=== PATIENT | female | born 1970 | race Caucasian/White ===

== ENCOUNTER 2021-11-25 11:05 | Outpatient (CLI) | payer BC, SELFPAY ==
[2021-11-25 14:10] LABS: Hematocrit 43.9 % (33.0-51.0); Hemoglobin* 14.1 gm/dL (12.0-16.0); Mean Corpuscular HGB Conc 32 gm/dL (32-36); Mean Corpuscular Hemoglobin 27 pg (26-34); Mean Corpuscular Volume 85 fL (80-100); Platelet Count* 246 K/uL (140-440); Red Blood Count 5.19 m/uL (4.00-5.20); White Blood Count* 8.55 K/uL (4.50-11.00)
[2021-11-25 14:17] LABS: Slide Review Reflex No
[2021-11-25 15:21] LABS: Ferritin* 5.5 ng/mL (6.24-137.0)
== END 2021-11-25 11:06 | disposition home or self-care (01) ==
PROVIDERS: PCP Internal Medicine; Visit Provider Family Medicine
DX: N39.0 Urinary tract infection, site not specified (principal); E61.1 Iron deficiency; G43.909 Migraine, unspecified, not intractable, without status migrainosus; R51.9 Headache, unspecified; F90.9 Attention-deficit hyperactivity disorder, unspecified type
CPT/HCPCS: 82728; 85027; 87086; 87186

== ENCOUNTER 2021-12-11 10:21 | Outpatient (RCR) | payer BC, SELFPAY | END 2022-01-29 07:39 | disposition home or self-care (01) | PROVIDERS: PCP Internal Medicine; Visit Provider Family Medicine | DX: R51.9 Headache, unspecified (principal); Z51.89 Encounter for other specified aftercare | CPT/HCPCS: 97110; 97162 ==

== ENCOUNTER 2021-12-30 14:24 | Outpatient (CLI) | payer BC, SELFPAY ==
--- OUTSIDE RECORDS SUMMARY | 2022-01-08 10:37 | XMS_ITS | Encounter Summary ---
:1970 Author Organization [facility] Address [address] [place] [address] Care Team Providers Name Role Phone Elsewhere, Pcp Primary Care Provider Unavailable Reason for Referral Outpatient (Routine) - Authorized Specialty Diagnoses / Procedures Referred By Contact Refer red To Contact Diagnoses Gastro-Esophageal Reflux Disease With Esophagitis Without Bleeding Julián Edouard M.D. [facility] Procedures Esophageal pH Testing [address] [place] [address] Referral ID Status Reason Start Date Expiration Date Visits V isits Requested Authorized [id number] Authorized 11/17/2021 11/17/2022 3 3 Outpatient (Routine) - Authorized Specialty Diagnoses / Procedures Referred By Contact Refer red To Contact Diagnoses Gastro-Esophageal Reflux Disease With Esophagitis Without Bleeding Julián Edouard M.D. [facility] Procedures Esophageal Manometry [address] [place] [address] Referral ID Status Reason Start Date Expiration Date Visits V isits Requested Authorized [id number] Authorized 11/17/2021 11/17/2022 3 3 Encounter Details Date Type Department Care Team Description 11/17/2021 Orders Only Division of [facility]ology in Julián Narayan M.D. Reflux Disease With [place], [place] [address] [facility] Esophagitis Without [address] [place], [place] Bleeding (Primary Dx) [place] [phone] Social History Tobacco Use Types Packs/Day Years Used Date Smoking Tobacco: Never Smokeless Tobacco: Never Alcohol Use Standard Drinks/Week Comments Not Currently 1 (1 standard drink = 0.6 oz pure alcoho l) Alcohol Habits Answer Date Recorded How often do you have a drink containing Monthly or less 11/16/2021 alcohol? How many drinks containing alcohol do you have Patient does not drink 11/16/2021 on a typical day when you are drinking? How often do you have six or more drinks on one Never 11/16/2021 occasion? Comment: Not asked Social Isolation Answer Date Recorded In a typical week, how many times do you More than three myranda es a week 11/16/2021 talk on the phone with family, friends, or neighbors? How often do you get together with friends Never 11/16/2021 or relatives? How often do you attend synagogue or More than 4 times per year 11/16/2021 latter-day services? Do you belong to any clubs or No 11/16/2021 organizations such as synagogue groups, unions, fraternal or athletic groups, or school groups? How often do you attend meetings of the Never 11/16/2021 clubs or organizations you belong to? Are you now , , , 11/16/2021 , never or living with a partner? Physical Activity Answer Date Recorded On average, how many days per week do you engage in moderate to 0 days 11/16/2021 strenuous exercise (like walking fast, running, jogging, dancing, swimming, biking, or other activities that cause a light or heavy sweat)? On average, how many minutes do you engage in exercise at th is 0 min 11/16/2021 level? Stress Answer Date Recorded Do you feel stress - tense, restless, nervous, or To some ex tent 11/16/2021 anxious, or unable to sleep at night because your mind is troubled all the time - these days? Financial Resource Strain Answer Date Recorded How hard is it for you to pay for the very basics like Somew hat hard 11/16/2021 food, housing, medical care, and heating? Intimate Partner Violence Answer Date Recorded Within the last year, have you been afraid of your partner o r No 11/16/2021 ex-partner? Within the last year, have you been humiliated or emotionall y No 11/16/2021 abused in other ways by your partner or ex-partner? Within the last year, have you been kicked, hit, slapped, or No 11/16/2021 otherwise physically hurt by your partner or ex-partner? Within the last year, have you been raped or forced to have any No 11/16/2021 kind of sexual activity by your partner or ex-partner? Food Insecurity Answer Date Recorded Within the past 12 months, you worried that your food would Never true 11/16/2021 run out before you got money to buy more. Within the past 12 months, the food you bought just didn't N ever true 11/16/2021 last and you didn't have money to get more. Transportation Needs Answer Date Recorded In the past 12 months, has lack of transportation kept you f rom No 11/16/2021 medical appointments or from getting medications? In the past 12 months, has lack of transportation kept you f rom No 11/16/2021 meetings, work, or getting things needed for daily living? Housing Stability Answer Date Recorded In the last 12 months, was there a time when you were not ab le No 11/16/2021 to pay the mortgage or rent on time? In the last 12 months, how many places have you lived? 1 11/16/2021 In the last 12 months, was there a time when you did not hav e a No 11/16/[address] sleep or slept in a long term (including now)? Education Answer Date Recorded What is the highest level of school you have GED or equivale nt 11/16/2021 completed or the highest degree you have received? Sex Assigned at Date Recorded Female 01/25/2018 11:49 AM CDT documented as of this encounter Plan of Treatment Upcoming Encounters Date Type Specialty Care Team Description 01/08/2022 Appointment Radiology Julián Edouard M.D. [address] [place] [address] (Wo rk) 01/08/2022 Ancillary Procedure Cardiovascular Disease Julián Edouard M.D. [address] [place] [phone] (Wo rk) 01/08/2022 Comprehensive Visit Thoracic Surgery Tess Raphael M.D. [address] [place] [phone] (Wo rk) documented as of this encounter Results [facility] STUDY NASL CATH (12/01/2021 1:39 PM CDT) Narrative [facility] [employer] - 12/01/2021 1:39 PM CDT Dae Mcgee M.B., BGeoffrey. ? 12/01/2021 ??1:46 PM Esophageal pH Testing Date/Time: 12/01/2021 1:39 PM Performed by: Dae Mcgee M.B., BLennox [place] Authorized by: Julián Edouard M.D. Julián Edouard M.D. GI PROCEDURE ORDERABLES Performing Organization Address City/State/ZIP Code Phon e Number [facility] NA Esophageal Manometry (11/30/2021 9:45 AM CDT) Narrative [facility] - 11/30/2021 9:45 AM CDT Jose Gray M.D. ? 11/30/2021 12:50 PM TECHNICAL ASPECTS: This was a high-resolution impedance man ometry study with liquid bolus protocol performed in the upright (seated) and supine positions. RESULTS: Supine: The proximal border of the LES was locat ed 37.1 cm from the nares with a total LES length of 2.1 cm. ??The re was a 1 cm hiatal hernia present. Resting LES pressure was normal at 20.7 mmHg, with abnormal relaxation reflected by a IRP of 15.2 mm Hg (slightly above normal, which is less than 15.0 mmHg. A total of 10 swallows were evaluated of which 3 were weak and 2 were failed. ??Bolus clearance as measur ed by impedance was incomplete for 2 swallows. Upper esophageal sphincter function appe ared normal. Upright (Seated): 10 liquid swallows were performed in the upright (seated) position. Note that median IRP ??in secondary posi tion was -7.4. Multiple Rapid Swallow: 3 MRS sequences were performed with at l east 1 sequence demonstrating a DCI >1 without inhibitor y breakthrough OVERALL IMPRESSION: This is consistent with ineffective esop hageal motility, with 5/10 swallows being normal, 2 failed, an d 3 weak in the supine position. Though median IRP was slightly elevated in the supine position, this corrected to normal in th e secondary seated position. Julián Edouard M.D. GI PROCEDURE ORDERABLES Performing Organization Address City/State/ZIP Code Phon e Number [facility] NA documented in this encounter Visit Diagnoses Diagnosis Gastro-Esophageal Reflux Disease With Es ophagitis Without Bleeding - Primary Gastro-Esophageal Reflux Disease With Es ophagitis Without Bleeding Gastro-Esophageal Reflux Disease With Es ophagitis Without Bleeding - Primary documented in this encounter Additional Health Concerns Assessment Noted Time PHQ-9 Depression Total Score: 15 04/21/2018 1:00 PM CS T documented as of this encounter Care Teams Pharmacy Teacher Relationship Specialty Start Date End Date Elsewhere, Pcp PCP - General Internal Medicine 10/22/19 documented as of this encounter
--- OUTSIDE RECORDS SUMMARY | 2022-01-08 10:37 | XMS_ITS | Clinical Summary ---
:1970 Author Organization [facility] Address [address] [place] [address] Care Team Providers Name Role Phone Elsewhere, Pcp Primary Care Provider Unavailable Source Comments Patient records contain information from all sites at [facility]. For routine questions regarding patient records, call [phone] during business hours, M-F 8:00 AM - 5:00 PM Central Time. Record requests for emergency care only can be directed to [phone] at any time.[facility] Allergies Active Allergy Reactions Severity Noted Date Comments Adhesive Rash 01/30/2015 Tape-Silicones Hydrocodone-Acetamino Other (see comments), 08/28/2014 Per [facility]ICS, reaction phen Itching, Nausea Only unknow n Iodine Other (see comments), 08/28/2014 fainti ng Shortness of breath Pecan Nut Swelling, Edema, Medium 01/30/2015 Angioedema Medications Medication Sig Dispensed Refills Start Date End Date Status SUMAtriptan (IMITREX Inject under the 0 03/19/2015 Active STATDOSE) 6 mg/0.5 mL skin as needed. injection pen Uses 2-4x/month for migraine. Uses once and then once again after 1h if no effect. dextroamphetamine-amphe Take 45 mg by 0 Active tamine (ADDERALL) 30 mg mouth every tablet morning. hydrOXYzine (ATARAX) 25 Take 25 mg by 0 Active mg tablet mouth every 6 (six) hours as needed for itching. acetaminophen (TYLENOL) Take 500 mg by 0 Active 500 mg tablet mouth as needed. aspirin/acetaminophen/c Take 1 tablet by 0 Active affeine (EXCEDRIN mouth as needed. MIGRAINE ORAL) ALPRAZOLAM ORAL Take 2 mg by 0 A ctive mouth at bedtime as needed for anxiety. modafiniL (PROVIGIL) Take 100 mg by 0 Active 100 mg tablet mouth daily. diphenhydramine-lidocai Take 5-10 mL by 480 mL 08/12/2020 Active ne 2 %-antacid (mw) mouth 4 (four) times a day after meals and bedtime. Hold in mouth for 1 minute.Do not eat or drink for 15-30 minutes after use. syringe with needle (BD Inject 1 Syringe 12 Syringe 3 11/01/19 21 Active Tuberculin Syringe) 1 under the skin mL 27 x 1/2 syringe once a week. For use with weekly Methotrexate injections diclofenac sodium Apply 2 g 100 g 1 11/06/2020 A ctive (Voltaren) 1 % gel topically 4 (four) times a day. Apply to hands. tranexamic acid Take 650 mg by 0 Active (LYSTEDA) 650 mg tablet mouth daily. pantoprazole (PROTONIX) Take 1 tablet (40 60 tablet 11 11/27/19 21 Active 40 mg EC tablet mg total) by mouth 2 (two) times a day. butalbital-acetaminophe Take 1 tablet by 0 Active n-caff (ESGIC) mouth every 4 50-325-40 mg per tablet (four) hours as needed. hydrOXYchloroQUINE Take 1-2 tablets 135 tablet 3 08/06/2021 Active (PLAQUENIL) 200 mg (200-400 mg tabletIndications: total) by mouth Arthritis Inflammatory daily. Take 1 tab (HCC) on odd days and 2 tabs on even days folic acid 1 mg Take 2 tablets 180 tablet 3 08/06/2021 Active tabletIndications: (2,000 mcg total) Arthritis Inflammatory by mouth daily. (HCC) methotrexate 25 mg/mL Inject 1 mL (25 12 mL 1 08/06/2021 Active injectionIndications: mg total) under Arthritis Inflammatory the skin once a (HCC) week. Labs needed for further refills. pilocarpine (SALAGEN) 5 Take 1 tablet (5 90 tablet 11 2 Active mg tabletIndications: mg total) by Xerostomia mouth 3 (three) times a day. famotidine (PEPCID) 40 Take 1 tablet (40 180 tablet 11 11/04/19 22 Active mg tablet mg total) by mouth 2 (two) times a day. RABEprazole (ACIPHEX) Take 1 tablet (20 180 tablet 11 2 Active 20 mg EC tablet mg total) by mouth 2 (two) times a day before breakfast and dinner. sucralfate (CARAFATE) 1 TAKE 1 TABLET (1 360 tablet 3 11/17/19 22 Active gram tablet G TOTAL) BY MOUTH 4 (FOUR) TIMES A DAY. TAKE 1 HOUR BEFORE MEALS AND AT BEDTIME ketorolac (TORADOL) 10 Take 1 tablet (10 20 tablet 0 2 Active mg tablet mg total) by mouth every 6 (six) hours as needed for pain. 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 12/02/2021 Orders Only Gastroenterology and [place], Gastro- Esophageal Hepatology Julián Narayan M.D. Reflux Disease With Esophagiti s Without Bleedin g (Primary Dx) 12/02/2021 Clinical Gastroenterology and [place], Follow- up Communication Hepatology Julián Narayan M.D. 12/01/2021 Hospital Encounter Gastroenterology and Joseph Edouard shania-Esophageal Hepatology Julián Narayan M.D. Reflux Disease With Esophagiti s Without Bleedin g (Primary Dx) 12/01/2021 Orders Only Pharmacy Violetta Campo 11/30/2021 Hospital Encounter Gastroenterology and Joseph Edouard shania-Esophageal Hepatology Julián Narayan M.D. Reflux Disease With Esophagiti s Without Bleedin g 11/30/2021 Clinical Gastroenterology and [place] Communication Hepatology Julián Narayan M.D. 11/30/2021 Clinical Gastroenterology and [place] Communication Hepatology Julián Narayan M.D. 11/17/2021 Orders Only Gastroenterology and [place], Gastro- Esophageal Hepatology Julián Narayan M.D. Reflux Disease With Esophagiti s Without Bleedin g (Primary Dx) 11/16/2021 Office Visit Rheumatology Jeimy, Ravi Infla mmatory (HCC) (Primary Dx); Velma Schwartz, High Risk Medic ation NEWSPAPER DELIVERY DRIVER, C.N.P. 11/13/2021 Anesthesia Event Gastroenterology and Donald Duran Hepatology T, NEWSPAPER DELIVERY DRIVER, SILK SCREEN OPERATOR 11/13/2021 Ancillary Procedure 11/13/2021 Hospital Encounter Gastroenterology and Silke, G shania-Esophageal Hepatology Julián Narayan M.D. Reflux Disease With Esophagiti s Without Bleedin g 11/13/2021 Immunization Preventive Medicine 11/13/2021 Refill Gastroenterology and [place]ke Med Ref ill Hepatology Julián Narayan M.D. 11/10/2021 External Outreach [facility], Contact With And Bret Narayan (Otto) Alex, Pharm.D. Exposure To COVID-19 (Prima ry Dx) 11/03/2021 Hospital Encounter Laboratory Medicine Jeimy, Ar thritis Velma Schwartz, Inflammatory (H CC) NEWSPAPER DELIVERY DRIVER, C.N.P. 11/03/2021 Office Visit Gastroenterology and Silke, Gastro- Esophageal Reflux Disease With Esophagitis With Bleeding (Primary Dx); Hepatology Julián Narayan M.D. Gastro-Esophage al Reflux Disease With Esophagitis Without Bleeding 10/15/2021 Clinical Rheumatology Mireya, Communication Nano Schwartz R.N. from Last 3 Months Immunizations Name Administration Dates Next Due HepB Adult (HEPLISAV-B) 02/21/2019, 12/05/2018 Influenza (IM) Preservative Free 02/01/2018 Influenza, Unspecified 02/09/2016 MMR 09/05/2014, 07/25/2014 PPD Test 02/23/2021, 02/16/2021 SARS-COV-2 (COVID-19) - PFIZER (12 05/15/2020, 04/24/2020 years or older) SARS-COV-2 (COVID-19) - PFIZER (12 11/13/2021, 08/06/2021 years or older) Tdap 07/18/2021, 07/11/2014 influenza vaccine quad 03/25/2021, 01/28/2020, 01/23/2020, (FLUZONE/FLUARIX) (6 months and 12/21/2018, 02/16/2017, 05/2016, older)(PF) 02/09/2016, 02/05/2015 Family History Medical History Relation Name Comments Diabetes Father nichole velasquez Alcohol abuse Maternal Grandfather reagan bah Coronary artery disease Maternal Grandfather reagan bah Diabetes Maternal Grandfather reagan bah Hypertension Maternal Grandfather reagan bah Arthritis Maternal Grandmother jose evlad johnsonbah Hypertension Maternal Grandmother jose e bah Migraines Maternal Grandmother jose e bah Stroke Maternal Grandmother jose evlad bah Transient ischemic attack Maternal Grandmother jose e bah Hyperlipidemia Mother apple jose Hypertension Mother apple jose Migraines Mother apple jose Sleep apnea Mother apple jose Thyroid disease Mother apple jose Diabetes Paternal Grandfather nichole zaragosa Hypertension Paternal Grandfather nichole zaragosa Sleep apnea Paternal Grandfather nichole zaragosa Arthritis Paternal Grandmother hope zaragosa Diabetes Paternal Grandmother hope zaragosa Hypertension Paternal Grandmother hope zaragosa Asthma Sister madisyn lottie Relation Name Status Comments Father nichole montelongoosa Maternal Grandfather reagan bah Maternal Grandmother jose e bah Mother apple jose Paternal Grandfather nichole zaragosa Paternal Grandmother hope zaragosa Sister madisyn lottie Social History Tobacco Use Types Packs/Day Years [...] or relatives? How often do you attend zoroastrianism or More than 4 times per year 11/16/2021 roman catholic services? Do you belong to any clubs or No 11/16/2021 organizations such as zoroastrianism groups, unions, fraternal or athletic groups, or [...] place to sleep or slept in a group home (including now)? Education Answer Date Recorded What is the highest level of school you have GED or equivale nt 11/16/2021 completed or the highest degree you have received? Sex Assigned at Date Recorded Female 01/25/2018 11:49 AM CDT Last Filed Vital Signs Vital Sign Reading Time Taken Comments Blood Pressure 124/72 11/13/2021 2:30 PM CDT Pulse 54 11/13/2021 2:41 PM CDT Temperature 35.7 ??C (96.3 ??F) 11/13/2021 1:56 PM CDT Respiratory Rate 12 11/13/2021 2:41 PM CDT Oxygen Saturation 99% 11/13/2021 2:41 PM CDT Inhaled Oxygen Concentration - - Weight 74.8 kg (165 lb) 11/13/2021 12:28 PM CDT Height 160 cm (5' 3) 11/13/2021 12:28 PM CDT Body Mass Index 29.23 11/13/2021 12:28 PM CDT Plan of Treatment Upcoming Encounters Date Type Specialty Care Team Description 01/08/2022 Appointment Radiology Julián Edouard M.D. [address] [place] [phone] ([place]) 01/08/2022 Ancillary Procedure Cardiovascular Disease Julián Edouard M.D. [address] [place] [phone] (Earl dowd) 01/08/2022 Comprehensive Visit Thoracic Surgery Tess Raphael M.D. [address] [place] [phone] (Wo rk) Health Maintenance Due Date Last Done Comments CT Colonography 1970 Cologuard 1970 Depression Monitoring 1970 (PHQ-9) FIT 1970 Fasting Glucose for 1970 Diabetes Screening HIV Screening 1970 Lipid (Cholesterol) 1970 Screening Mammogram 01/30/2018 01/30/2017 (Performed elsewhere), 2014 (Performed elsewhere), 12/26/2012 Office Visit for Blood 11/05/2021 08/06/2021 Pressure Check / Re-check Zoster Vaccines (1 of 2) 12/30/2021 Influenza Vaccine (#1) 2022 03/25/2021, 01/28/2020, 01/23/2020, Additional history exists Cervical Cancer Screening 08/15/2023 08/14/2020, 2014 (Performed elsewhere) Colonoscopy 11/19/2030 11/19/2020, 11/19/2020, 11/19/2020 Colorectal Cancer Screening 11/19/2030 DTaP,Tdap,and Td Vaccines 07/19/2031 07/18/2021, 07/11/2014 (3 - Td or Tdap) Hepatitis C Screening Completed 03/19/2015 Hepatitis B Vaccines Completed 02/21/2019, 12/05/2018 COVID-19 Vaccine Completed 11/13/2021, 08/06/2021, 12/24/2020, Additional history exists Pneumococcal vaccine (0-64 Aged Out No lo nger eligible years) based on patient 's age to complete this topic Medical Devices Implanted Type Area Occupational Medicine Physician Device Shelf Model / Identifier Expiration Serial / Date Lot Intrauterine Intrauterine Uterus Device Device Description: IUD Mirena Conversions - Default Historical Implant Device Misc Other Abdomen Implanted: 05/04/2004 (Quantity not on file) Description: Body Location - Abdominal. Device Status Text - MiscOther. lapband. Procedures Procedure Name Priority Date/Time Associated Comments Diagnosis TX PH STUDY NASL CATH Routine 12/01/2021 1:39 Gastro-Esophagea l Results for this PM CDT Reflux Disease With procedur e are in Esophagitis Without the resu lts Bleeding section. ESOPHAGEAL MANOMETRY Routine 11/30/2021 9:45 Gastro-Esophageal Results for this AM CDT Reflux Disease With procedur e are in Esophagitis Without the resu lts Bleeding section. UPPER GI ENDOSCOPY Routine 11/13/2021 1:30 Gastro-Esophageal R esults for this PM CDT Reflux Disease With procedur e are in Esophagitis Without the resu lts Bleeding section. EGD Routine 11/13/2021 1:30 Gastro-Esophageal (ESOPHAGEALGASTRODUODENO PM CDT Reflux Disease W ith SCOPY) Esophagitis Without Bleeding GASTROENTEROLOGY IMAGE Routine 11/13/2021 1:30 Re sults for this EXAM PM CDT procedure are i n the results section. SARS CORONAVIRUS-2 RNA, Routine 11/10/2021 10:51 Contact With And Results for this V AM CDT (Suspected) procedure are i n Exposure To the results COVID-19 section. ASPARTATE Routine 11/03/2021 12:18 Arthritis Results for this AMINOTRANSFERASE (AST), PM CDT Inflammatory (HCC ) procedure are in S/P the results section. CREATININE WITH EGFR, Routine 11/03/2021 12:18 Arthritis Re sults for this S/P PM CDT Inflammatory (HCC) procedure are in the results section. CBC WITH DIFFERENTIAL, B Routine 11/03/2021 12:18 Arthritis Results for this PM CDT Inflammatory (HCC) procedure are in the results section. from Last 3 Months Results TX PH STUDY NASL CATH (12/01/2021 1:39 PM CDT) Narrative [facility] - 12/01/2021 1:39 PM CDT Dae Mcgee M.B., Nellie. ? 12/01/2021 ??1:46 PM Esophageal pH Testing Date/Time: 12/01/2021 1:39 PM Performed by: Dae Mcgee M.B., BLennox [place] Authorized by: Julián Edouard M.D. Julián Edouard M.D. GI PROCEDURE ORDERABLES Performing Organization Address City/State/ZIP Code Phon e Number [facility] Esophageal Manometry (11/30/2021 9:45 AM CDT) [...] Code Phon e Number MMODAL MM[facility]AL NA Upper GI Endoscopy (11/13/2021 1:30 PM CDT) Specimen (Source) Anatomical Collection Method Collection Time Re ceived Time Location / / Volume Laterality 11/13/2021 1:30 PM CDT Impressions [facility] - 11/13/2021 1:54 PM CDT Post-op Diagnoses: ? - Z-line irregular, 33 cm from th e incisors. Shortened esophagus. ? - LA Grade B reflux esophagitis w ith no bleeding. ? - Medium-sized hiatal hernia. ? - Normal stomach. ? - Normal examined duodenum. ? - No specimens collected. Narrative [facility] - 11/13/2021 1:54 PM CDT [facility] 9 GI GI Patient Name: Waleska Velasquez Date of : 1970 Age: 50 Gender: Female Procedure Date: 11/13/2021 Procedure: ? Upper GI endoscopy Providers: ? Bony Perez MD Referring Provider: ?Julián temple MD Pre-op Diagnoses: ?Heartburn Recommendation: ? - Discharge patient to home. Findings: ? The Z-line was irregular and was found 33 cm from the incisors. ? LA Grade B (one or more mucosal b reaks greater than 5 mm, not extending ? between the tops of two mucosal f olds) esophagitis with no bleeding was ? found 32 to 33 cm from the inciso rs. ? A medium-sized hiatal hernia was found. The proximal extent of the ? gastric folds (end of tubular eso phagus) was 33 to 36 cm from the ? incisors. ? The entire examined stomach was n ormal. ? The examined duodenum was normal. Procedural Details: ? The patient was seen, evaluated, history reviewed, airway and heart-lung ? exams were performed by licensed provider and were satisfactory for ? planned level of sedation care. ? The risks, benefits and alternati ves for the procedure and sedation were ? discussed and informed consent wa s obtained. A procedural pause was ? conducted in the presence of assi sting personnel to verify the correct ? patient identity and procedure to be performed. Throughout the ? procedure, the patient's blood pr essure, pulse, and oxygen saturations ? were monitored continuously. The Gastroscope was introduced under direct ? vision through the mouth, and adv anced to the second part of duodenum. ? The upper GI endoscopy was accomp lished without difficulty. The patient ? tolerated the procedure well. Estimated Blood Loss: ?Estimated blo od loss: none. Complications: ? No immedia te complications. Sedation: ? An independent trained observer w as present and continuously monitored ? the patient. Attending Participation: I personally pe rformed the entire procedure. Bony Perez MD 11/13/2021 1:54:02 PM This report has been signed electronical ly. Number of Addenda: 0 Julián Edouard M.D. GI PROCEDURE ORDERABLES Performing Organization Address City/State/ZIP Code Phon e Number [facility] NA Upper GI endoscopy-Gastroenterology Image Exam (11/13/2021 1:30 PM CDT) Specimen (Source) Anatomical Collection Method Collection Time Re ceived Time Location / / Volume Laterality 11/13/2021 1:30 PM CDT Narrative [facility] - 11/13/2021 1:57 PM CDT This order has been created and auto-finalized to support the import of images acquired without order. The clini sarwat documentation to support these images can be found on the encounter milena t produced images. Provider Not In System IMG NON RAD IMAGING PROCEDUR ES Performing Organization Address City/[facility]/ZIP Code Phon e Number [facility] NA SARS Coronavirus-2 RNA, V Asymptomatic (11/10/2021 10:51 AM CDT) [facility] Method Time Signature SARS-CoV-2 Swab, 11/11/2021 MKTO Specimen Nasopharynx 10:40 AM Source CDT SARS CoV-2 Undetected Undetected 11/11/2021 MKTO RNA, TMA 10:40 AM CDT Comment: SARS-CoV-2 RNA absent. This result does not rule out COVID-19 in the patient, as the sensitivity of the test depends o n the timing of the specimen collection and the quality of the specim en. Result should be correlated with patient's history and clinical presentat ion. ----ADDITIONAL INFORMATION---- This molecular amplification test was pe rformed using the Aptima SARS-CoV-2 assay ([employer] on the [place] tem under emergency use authorization (EUA) by the U.S. Food and Drug Administ ration. Fact sheets for this EUA assay can be fo und at the following links: For Healthcare Providers: https://www.fd a.gov/media/710700/download For Patients: https://www.fda.gov/media/ 052594/download Specimen Anatomical Collection Method Collection Time Receive d Time (Source) Location / / Volume Laterality Varies 11/10/2021 10:51 11/10/2021 5:02 (Nasopharynx) AM CDT PM CDT Bret Chapa M.D., Pharm.D. LAB MICROBIOLOGY - [facility] ORDERABLES Performing Organization Address City/State/ZIP Code Phon e Number [facility]- [address] [place] [address] [place] [address] System [address] (ABNORMAL) CBC with Differential, Blood (11/03/2021 12:18 PM CDT) [facility] Method Time Signature Hemoglobin 15.0 11.6 - 11/03/2021 DTL 15.0 g/dL 12:51 PM CDT Hematocrit 46.2 (H) 35.5 - 11/03/2021 DTL 44.9 % 12:51 PM CDT Erythrocytes 5.43 (H) 3.92 - 11/03/2021 DTL 5.13 12:51 PM CDT x10(12)/L MCV 85.1 78.2 - 11/03/2021 DTL 97.9 fL 12:51 PM CDT RBC Distrib Width 14.5 12.2 - 11/03/2021 DTL 16.1 % 12:51 PM CDT Platelet Count 304 157 - 371 11/03/2021 DTL x10(9)/L 12:51 PM CDT Leukocytes 6.5 3.4 - 9.6 11/03/2021 DTL x10(9)/L 12:51 PM CDT Neutrophils 4.41 1.56 - 11/03/2021 DTL 6.45 12:51 PM CDT x10(9)/L Lymphocytes 1.58 0.95 - 11/03/2021 DTL 3.07 12:51 PM CDT x10(9)/L Monocytes 0.42 0.26 - 11/03/2021 DTL 0.81 12:51 PM CDT x10(9)/L Eosinophils 0.03 0.03 - 11/03/2021 DTL 0.48 12:51 PM CDT x10(9)/L Basophils <0.03 0.01 - 11/03/2021 DTL 0.08 12:51 PM CDT x10(9)/L Specimen Anatomical Collection Method Collection Time Receive d Time (Source) Location / / Volume Laterality Blood (Blood, 11/03/2021 12:18 11/03/2021 Venous) PM CDT 12:43 PM CDT Velma Munson APRN, Karlene.N.P. LAB BLOOD ADD-ON Performing Organization Address City/[facility] Phon e Number [facility] - [address] AST (Aspartate Aminotransferase) (11/03/2021 12:18 PM CDT) Patholo gist Method Time Signature Aspartate 22 8 - 43 11/03/2021 DTL Aminotransferase U/L 1:11 PM CDT (AST), S Specimen Anatomical Collection Method Collection Time Receive d Time (Source) Location / / Volume Laterality Blood (Blood, 11/03/2021 12:18 11/03/2021 Venous) PM CDT 12:55 PM CDT Velma Munson APRN, Karlene.N.P. LAB BLOOD ADD-ON Performing Organization Address City/[facility] Phon e Number [facility] - [address] [place], [place] [address] [place] [address] Creatinine with Estimated GFR (11/03/2021 12:18 PM CDT) P athologist Signature Creatinine 0.91 0.59 - 11/03/2021 DTL 1.04 mg/dL 1:11 PM CDT eGFR-Non 74 >=60 11/03/2021 DTL Black/ mL/min/BSA 1:11 PM CDT [place] Comment: ----ADDITIONAL INFORMATION---- Estimated GFR calculated using the 2008 CKD_EPI creatinine equation. eGFR-Black/ 86 >=60 mL/min/BSA 2021 1:11 PM CDT DTL Comment: ----ADDITIONAL INFORMATION---- Estimated GFR calculated using the 2009 CKD_EPI creatinine equation. Specimen Anatomical Collection Method Collection Time Receive d Time (Source) Location / / Volume Laterality Blood (Blood, 11/03/2021 12:18 11/03/2021 Venous) PM CDT 12:55 PM CDT Velma Munson APRN C.N.PLennox LAB BLOOD ADD-ON Performing Organization Address City/State/ZIP Code Phon e Number [facility] - [address] [place], [place] [address] [facility] [place] [address] Laboratories-[facility] [address] from Last 3 Months Insurance Payer Benefit Plan / Subscriber ID Effective Dates Phone Addre ss Type Group [facility] [id number] 2014-Ashli [phone] [address] PPO [facility] [address] [place] [address] Care Teams Retail Clerk Relationship Specialty Start Date End Date Elsewhere, Pcp PCP - General Internal Medicine 10/22/19
--- OUTSIDE RECORDS SUMMARY | 2022-01-08 10:37 | XMS_ITS | Encounter Summary ---
:1970 Author Organization [facility] Address [address] [place] [address] Care Team Providers Name Role Phone Elsewhere, Pcp Primary Care Provider Unavailable Reason for Referral Outpatient (Routine) - Authorized Specialty Diagnoses / Procedures Referred By Contact Refer red To Contact Rheumatology Velma Munson APRN, [place] C.N.P. 200 [place], [place] [phone] Referral ID Status Reason Start Date Expiration Date Visits V isits Requested Authorized [id number] Authorized 11/17/2021 11/17/2022 1 1 Reason for Visit Outpatient (Routine) - Closed Specialty Diagnoses / Procedures Referred By Contact Refer red To Contact Rheumatology Velma Munson APRN [facility] C.N.P. 200 [place], [place] [phone] Referral ID Status Reason Start Date Expiration Date Visits Requ ested Visits Authorized [id number] Closed 08/06/2021 08/06/2022 1 1 Encounter Details Date Type Department Care Team Description 11/16/2021 Office Visit Division of Velma Munson Arthritis In flammatory (HCC) (Primary Dx); Rheumatology in [place], C.N.P. High Risk Medication [place], [place] [address] [facility] [address] [place] [phone] Social History Tobacco Use Types Packs/Day Years [...] or relatives? How often do you attend moravian or More than 4 times per year 11/16/2021 buddhism services? Do you belong to any clubs or No 11/16/2021 organizations such as moravian groups, unions, fraternal or athletic groups, or [...] place to sleep or slept in a halfway (including now)? Education Answer Date Recorded What is the highest level of school you have GED or equivale nt 11/16/2021 completed or the highest degree you have received? Sex Assigned at Date Recorded Female 01/25/2018 11:49 AM CDT documented as of this encounter Progress Notes Velma Munson, [facility], C.N.P. - 11/16/2021 2:45 PM CDT Images from the original note were not included. SUBJECTIVE CHIEF COMPLAINT / REASON FOR VISIT Waleska Diaz is a 50 y.o. female who presents for follow up of inflammatory arthritis. HISTORY OF PRESENT ILLNESS Ms. 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 She was initially seen in consult by Dr. Gonzalez in January 2015 when her joint symptoms started to return. She reports otherwise being in good health until her early 20s when she was diagnosed with mixed c onnective tissue disease. She presented initially with low-grade fevers, diarrhea, rectal bleeding, and a rash which she reports was photosensitive with widespread joint pain and sensitivity to touch. She was started on treatment with methotrexate, prednisone, and Plaquenil and remained on that initially for about five years and then went off it because she was doing relatively well. RHEUMATIC DISEASE MEDICATION HISTORY Medication Start Date Stop Date Response / Adverse Events Plaquenil 12/2017 Currently Methotrexate 06/2020 COVID, PNA and shingles Today, I am seeing Ms. 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 Since I saw her last she is having increased fatigue and headaches. She has been doing biomagnestium forher GERD. Recent EGD had improved. She is noticing she is taking less TUMs. She endorses left 5th finger pain with cramping. Her Raynauds is worse during the summer. She is continuing to have right hippain. She has also been battling with migraines that is occurring almost every day. She is trying tofollow an AIP diet, which she finds is helping her joints. She would like a letter stating she can sit on a stool as needed while at work. She continues take methotrexate 25 mg SQ once weekly, folic acid 2 mg daily, and Plaquenil 200 mg on odd days and 400 mg on even days. Morning stiffness lasts 20 minutes. She denies any recent infections or hospitalizations. She denies any adverse side effects to Plaquenil or methotrexate. Rheumatoid Arthritis RF +: No CCP +: No AM stiffness: 20 minutes Current Symptoms: diarrhea, dry mouth (Pilocarpine- helping), fatigue (worsening over the last couple of months), Raynaud's syndrome (no digital ulcers; worse during the summer), nausea (with migraines), vomiting (yellow bile this morning), abdominal pain (improving with better diet), chills (easily),heartburn and dyspnea (harder to walk) Current Symptoms: eyes not dry, no fever, no rash, no weight loss, no excessive bruising, no cough, no chest pain, no edema, no anorexia, no night sweats, no oral ulcers and no eye inflammation Previous Reports Reviewed:lab reports and office notes The following portions of the patient's history were reviewed and updated as appropriate: family history, medical history, social history, surgical history and problem list. REVIEW OF SYSTEMS Pertinent positives and negatives as documented in the above history of present illness. Constitutional: Positive for chills (easily) and fatigue (worsening over the last couple of months). - Negative for fever, loss of appetite, night sweats, weight gain of more than 10 pounds and weightloss. Skin: - Negative for skin rash and breast lump. Eyes: Positive for visual problems. ENT: Positive for difficulty hearing and sinus congestion. Respiratory: - Negative for coughing. Cardiovascular: Positive for pain in the calf muscles when walking. - Negative for chest pain, pressure or tightness and swelling in the legs or feet. Gastrointestinal: Positive for abdominal (belly) pain or cramping (improving with better diet), constipation (IBS), diarrhea, heartburn, nausea (with migraines) and vomiting (yellow bile this morning). - Negative for anorexia. Hematologic: Positive for bruises or bleeds easily. Musculoskeletal: Positive for pain or stiffness in the joints (hands, wrists, right hip, toes), backpain (low back and neck), joint swelling and muscle pain/stiffness. Neurological: Positive for seizures (stable), light-headedness, numbness or shooting pain in hands, arms, legs, or feet (left 5th MTP), headaches (daily) and weakness in arms or legs. Psychiatric/Behavioral: Positive for excessive daytime sleepiness/tiredness, loud snoring, little interest or pleasure in doing things over past two weeks and feeling nervous, anxious, or on edge in past two weeks. The following systems were negative: Skin, Respiratory, Genitourinary OBJECTIVE PHYSICAL EXAM Physical ExamGeneral: Alert, oriented, appropriate affect, no apparent distress. Skin: No rheumatologic rashes or ulcers noted. Eyes: Clear conjunctivae and lids. Lymph: No cervical or supraclavicular adenopathy. Cardio: Regular rate. No murmurs or rubs. Lungs: Clear to auscultation bilaterally. Extremities: No limitations in ROM bilaterally. Joints: No synovitis of the upper and lower extremities including hands, wrists, elbows, knees, ankles or feet bilaterally. Range of motion of the extremities including shoulders and hips are within functional limits bilaterally. Left 1st DIP and right 5th DIP hypertrophy noted. Lab: CBC with differential: Hct 46.2. RBC 5.43. Creatinine, GFR, and AST all within normal limits. 07/17/2020 03/04/2021 08/06/2021 11/16/2021 Tender joint count (0-28) 1 2 0 0 Swollen joint count (0-28) 0 0 0 0 Patient global assessment (0-100) 12 60 4 50 Hospital Food Service Worker global assessment (0-100) 20 30 20 30 ESR (mm/h) 13 17 -- -- CRP (mg/L) 5 4.8 -- -- Disease Activity Score 28 using ESR ([id number]) 2.52 3.62 -- -- Disease Activity Score 28 using CRP ([id number]) 2.33 3.22 -- -- Clinical Disease Activity Index (CDAI) 4.2 11 2.4 8 Simplified Disease Activity Index (SDAI) 4.7 11.48 -- -- ASSESSMENT / PLAN #1 Arthritis Inflammatory (HCC) #2 SICCA symptoms #3 Worsening Fatigue #4 Frequent Migraines Overall, she is feeling very fatigued with almost daily migraines. In the past she has had iron infusion which has helped for the migraine and fatigue. I have asked her to follow up with her primary care provider for this, since they did this last time. Joint symptoms are fairly stable on exam I am reluctant to change treatment at this time until we figure out her iron studies. I have given her Toradol to use her acute pain the next couple days. She will continue methotrexate 25 mg subQ once weekly,folic acid 2 mg daily, Plaquenil to 400 mg on even days and 200 mg on odd days, and pilocarpine 5 mg3 times a day. For acute pain can take oral Toradol 10 mg every 6 hours for max of 5 days. Patient was in agreement with this plan. I refilled her prescriptions accordingly. I have given her a work note to sit on a stool as needed. #5 High Risk Medication Last Plaquenil eye exam was July 29, 2021. No eye toxicity noted. She will be due again in June 2022. She will continue laboratory monitoring every 3 months for methotrexate. I will follow up with her in 3 months. I answered the patients questions to the best of my ability. The patient seemed pleased with our interaction. If she should have any additional questions or concerns. I have asked that she contact us at that time. ' documented in this encounter Plan of Treatment Upcoming Encounters Date Type Specialty Care Team Description 01/08/2022 Appointment Radiology Julián Edouard M.D. [address] [place] [phone] (Wo rk) 01/08/2022 Ancillary Procedure Cardiovascular Disease Julián Edouard M.D. [address] [place] [address] [phone] (Wo rk) 01/08/2022 Comprehensive Visit Thoracic Surgery Tess Raphael M.D. [address] [place] [phone] (Wo rk) Scheduled Orders Name Type Priority Associated Diagnoses Order S chedule CBC with Differential, Lab Routine Arthritis Inflamma tory Expected: 02/17/2022 Blood ([facility]) (Approximate), Expires: 2022 Sedimentation Rate Lab Routine Arthritis Inflammatory Expected: 02/17/2022 ([facility]) (Approximate), Expires: 2022 CRP (C-Reactive Protein) Lab Routine Arthritis Inflam matory Expected: 02/17/2022 ([facility]) (Approximate), Expires: 2022 Creatinine with Estimated Lab Routine Arthritis Infla mmatory Expected: 02/17/2022 GFR ([facility]) (Approximate), Expires: 2022 AST (Aspartate Lab Routine Arthritis Inflammatory Exp ected: 02/17/2022 Aminotransferase) ([facility]) (Approxima te), Expires: 2022 Scheduled Referrals Name Type Priority Associated Order Schedule Diagnoses Rheumatology office Outpatient Referral Routine E xpected: visit (clinic) 02/17/2022 (Approximate), Expires: 02/17/2023 documented as of this encounter Visit Diagnoses Diagnosis Arthritis Inflammatory (HCC) - Primary High Risk Medication documented in this encounter Additional Health Concerns Assessment Noted Time PHQ-9 Depression Total Score: 15 04/21/2018 1:00 PM CS T documented as of this encounter Care Teams Requirements Engineer Relationship Specialty Start Date End Date Elsewhere, Pcp PCP - General Internal Medicine 10/22/19 documented as of this encounter
--- OUTSIDE RECORDS SUMMARY | 2022-01-08 10:37 | XMS_ITS | Encounter Summary ---
:[address] [facility] Address [address] [place] [address] Care Team Providers Name Role Phone Elsewhere, Pcp Primary Care Provider Unavailable Encounter Details Date Type Department Care Team Description 12/01/2021 Orders Only Pharmacy Prior Auth Violetta Epperson [phone] Social History Tobacco Use Types Packs/Day Years [...] or relatives? How often do you attend adventism or More than 4 times per year 11/16/2021 religion services? Do you belong to any clubs or No 11/16/2021 organizations such as adventism groups, unions, fraternal or athletic groups, or [...] place to sleep or slept in a skilled nursing (including now)? Education Answer Date Recorded What is the highest level of school you have GED or equivale nt 11/16/2021 completed or the highest degree you have received? Sex Assigned at Date Recorded Female 01/25/2018 11:49 AM CDT documented as of this encounter Plan of Treatment Upcoming Encounters Date Type Specialty Care Team Description 01/08/2022 Appointment Radiology Julián Edouard M.D. [address] [place] [phone] (Wo rk) 01/08/2022 Ancillary Procedure Cardiovascular Disease Julián Edouard M.D. [address] [place] [phone] (Wo rk) 01/08/2022 Comprehensive Visit Thoracic Surgery Tess Raphael M.D. [address] [place] [phone] (Wo rk) documented as of this encounter Visit Diagnoses Not on filedocumented in this encounter Additional Health Concerns Assessment Noted Time PHQ-9 Depression Total Score: 15 04/21/2018 1:00 PM CS T documented as of this encounter Care Teams Intelligence Support Officer Relationship Specialty Start Date End Date Elsewhere, Pcp PCP - General Internal Medicine 10/22/19 documented as of this encounter
--- OUTSIDE RECORDS SUMMARY | 2022-01-08 10:37 | XMS_ITS | Encounter Summary ---
:1970 Author Organization [facility] Address [address] [place] [address] Care Team Providers Name Role Phone Elsewhere, Pcp Primary Care Provider Unavailable Reason for Referral Outpatient (Routine) - Authorized Specialty Diagnoses / Procedures Referred By Contact Refer red To Contact Diagnoses Gastro-Esophageal Reflux Disease With Esophagitis Without Bleeding Julián Edouard M.D. [facility] Procedures ECG 12 Lead 200 [place], [place] [address] Referral ID Status Reason Start Date Expiration Date Visits V isits Requested Authorized [id number] Authorized 12/02/2021 12/02/2022 1 1 Outpatient (Routine) - Authorized Specialty Diagnoses / Procedures Referred By Contact Refer red To Contact Diagnoses Gastro-Esophageal Reflux Disease With Esophagitis Without Bleeding Julián Edouard M.D. [facility] Procedures FL Esophagram Single Contrast [address] [place] [address] Referral ID Status Reason Start Date Expiration Date Visits V isits Requested Authorized [id number] Authorized 12/02/2021 12/02/2022 1 1 Outpatient (Routine) - Authorized Specialty Diagnoses / Procedures Referred By Contact Refer red To Contact Thoracic Surgery Diagnoses Gastro-Esophageal Reflux Disease With Esophagitis Without Bleeding Julián Edouard [place] M.D. [address] [place] [address] Referral ID Status Reason Start Date Expiration Date Visits V isits Requested Authorized [id number] Authorized 12/02/2021 12/02/2022 1 1 Encounter Details Date Type Department Care Team Description 12/02/2021 Orders Only Division of [place], Gastro-Esophage al Gastroenterology in Julián Narayan M.D. Reflux Disease With [place], [place] [address] [facility] Esophagitis Without [address] [place], [place] Bleeding (Primary Dx) [place] [phone] Social History Tobacco Use Types Packs/Day Years [...] or relatives? How often do you attend congregational or More than 4 times per year 11/16/2021 buddhist services? Do you belong to any clubs or No 11/16/2021 organizations such as congregational groups, unions, fraternal or athletic groups, or [...] place to sleep or slept in a [place] [facility] [place] (including now)? Education Answer Date Recorded What is the highest level of school you have GED or equivale nt 11/16/2021 completed or the highest degree you have received? Sex Assigned at Date Recorded Female 01/25/2018 11:49 AM CDT documented as of this encounter Plan of Treatment Upcoming Encounters Date Type Specialty Care Team Description 01/08/2022 Appointment Radiology Julián Edouard M.D. [address] [place] [phone] (Wo rk) 01/08/2022 Ancillary Procedure Cardiovascular Disease Julián Edouard M.D. [address] [place] [phone] (Wo rk) 01/08/2022 Comprehensive Visit Thoracic Surgery Tess Raphael M.D. [address] [place] [phone] (Wo rk) Scheduled Orders Name Type Priority Associated Diagnoses Order S chedule FL Esophagram Imaging RAD - Routine (most Gastro-Esophageal 1 Occurrences Single Contrast inpatients and all Reflux Disease With starting 12/02/2021 outpatients) Esophagitis Without until Bleeding ECG 12 Lead ECG Routine Gastro-Esophageal 1 Occurren marianela Reflux Disease With starting 12/02/2021 Esophagitis Without until Bleeding Scheduled Referrals Name Type Priority Associated Diagnoses Order S chedule Thoracic Surgery - Outpatient Referral Routine Gastro-Esophage al Expected: Esophagus consult Reflux Disease With 06/2021 (clinic) Esophagitis Without (Approxi mate), Bleeding Expires: 03/04/2023 documented as of this encounter Visit Diagnoses Diagnosis Gastro-Esophageal Reflux Disease With Es ophagitis Without Bleeding - Primary documented in this encounter Additional Health Concerns Assessment Noted Time PHQ-9 Depression Total Score: 15 04/21/2018 1:00 PM CS T documented as of this encounter Care Teams Associate Creative Director Relationship Specialty Start Date End Date Elsewhere, Pcp PCP - General Internal Medicine 10/22/19 documented as of this encounter
--- OUTSIDE RECORDS SUMMARY | 2022-01-08 10:37 | XMS_ITS | Encounter Summary ---
:1970 Author Organization [facility] Address [address] [place] [address] Care Team Providers Name Role Phone Elsewhere, Pcp Primary Care Provider Unavailable Reason for Visit Reason Comments COVID Nurse Line Encounter Details Date Type Department Care Team Description 01/06/2022 Nurse Triage Division of [facility] Belen Connelly C OVID Nurse Line Internal Medicine, M.Lucie, [place], [facility], in [place], [place] [address] [facility] [address] [place] [phone] Social History Tobacco Use Types Packs/Day Years [...] or relatives? How often do you attend jew or More than 4 times per year 11/16/2021 spiritism services? Do you belong to any clubs or No 11/16/2021 organizations such as jew groups, unions, fraternal or athletic groups, or [...] place to sleep or slept in a nursing home (including now)? Education Answer Date Recorded What is the highest level of school you have GED or equivale nt 11/16/2021 completed or the highest degree you have received? Sex Assigned at Date Recorded Female 01/25/2018 11:49 AM CDT documented as of this encounter Miscellaneous Notes Telephone Encounter - Belen Connelly M.A.N., [place], [facility] - 01/06/2022 2:11 PM CDT Chief Complaint / Reason for Call Patient is a 51 y.o. female calling regarding COVID Nurse Line. Assessment Concern: Patient calling to request information regarding scheduling a COVID booster. She was advised that [facility] has a temporary pause on scheduling of COVID boosters until 01/13/22. She was encouraged to call back next week. Calling to request: Advice The recommended disposition is Information or Advice Only Call. documented in this encounter Plan of Treatment Upcoming Encounters Date Type Specialty Care Team Description 01/08/2022 Appointment Radiology Julián Edouard M.D. [address] [place] [phone] (Wo nile) 01/08/2022 Ancillary Procedure Cardiovascular Disease Julián Edouard M.D. [address] [place] [phone] (Wo nile) 01/08/2022 Comprehensive Visit Thoracic Surgery Tess Raphael M.D. [address] [place] [phone] (Wo rk) documented as of this encounter Visit Diagnoses Not on filedocumented in this encounter Additional Health Concerns Assessment Noted Time PHQ-9 Depression Total Score: 15 04/21/2018 1:00 PM CS T documented as of this encounter Care Teams Outpatient Therapist Relationship Specialty Start Date End Date Elsewhere, Pcp PCP - General Internal Medicine 10/22/19 documented as of this encounter
--- OUTSIDE RECORDS SUMMARY | 2022-01-08 10:37 | XMS_ITS | Encounter Summary ---
:1970 Author Organization [facility] Address [address] [place] [address] Care Team Providers Name Role Phone Elsewhere, Pcp Primary Care Provider Unavailable Encounter Details Date Type Department Care Team Description 11/30/2021 Clinical Communication Division of [place], Gastroenterology in Julián Narayan M.D. [place], [place] [address] [facility] [address] [place] [phone] Social History Tobacco Use Types Packs/Day Years [...] or relatives? How often do you attend catholic or More than 4 times per year 11/16/2021 religion services? Do you belong to any clubs or No 11/16/2021 organizations such as catholic groups, unions, fraternal or athletic groups, or [...] place to sleep or slept in a [facility] (including now)? Education Answer Date Recorded What is the highest level of school you have GED or equivale nt 11/16/2021 completed or the highest degree you have received? Sex Assigned at Date Recorded Female 01/25/2018 11:49 AM CDT documented as of this encounter Plan of Treatment Upcoming Encounters Date Type Specialty Care Team Description 01/08/2022 Appointment Radiology Julián Edouard M.D. [address] [place] [phone] (Wo rk) 01/08/2022 Ancillary Procedure Cardiovascular Disease Julián Edouard M.D. [address] [place] [phone] (Wo rk) 01/08/2022 Comprehensive Visit Thoracic Surgery Tess Raphael M.D. [address] [place] [phone] (Wo rk) documented as of this encounter Visit Diagnoses Not on filedocumented in this encounter Additional Health Concerns Assessment Noted Time PHQ-9 Depression Total Score: 15 04/21/2018 1:00 PM CS T documented as of this encounter Care Teams Wire Stockkeeper Relationship Specialty Start Date End Date Elsewhere, Pcp PCP - General Internal Medicine 10/22/19 documented as of this encounter
--- OUTSIDE RECORDS SUMMARY | 2022-01-08 10:37 | XMS_ITS | Encounter Summary ---
:1970 Author Organization [facility] Address [address] [place] [address] Care Team Providers Name Role Phone Elsewhere, Pcp Primary Care Provider Unavailable Reason for Referral Outpatient (Routine) - Authorized Specialty Diagnoses / Procedures Referred By Contact Refer red To Contact Diagnoses Gastro-Esophageal Reflux Disease With Esophagitis Without Bleeding Julián Edouard M.D. [facility] Procedures Esophageal pH Testing [address] [place] [address] Referral ID Status Reason Start Date Expiration Date Visits V isits Requested Authorized [id number] Authorized 11/17/2021 11/17/2022 3 3 Outpatient (Routine) - Authorized Specialty Diagnoses / Procedures Referred By Contact Refer red To Contact Diagnoses Gastro-Esophageal Reflux Disease With Esophagitis Without Bleeding Julián Edouard M.D. [facility] Procedures Esophageal Manometry [address] [place] [address] Referral ID Status Reason Start Date Expiration Date Visits V isits Requested Authorized [id number] Authorized 11/17/2021 11/17/2022 3 3 Reason for Visit Outpatient (Routine) - Authorized Specialty Diagnoses / Procedures Referred By Contact Refer red To Contact Diagnoses Gastro-Esophageal Reflux Disease With Esophagitis Without Bleeding Julián Edouard M.D. [facility] Procedures Esophageal pH Testing [address] [place], [place] [phone] Referral ID Status Reason Start Date Expiration Date Visits V isits Requested Authorized [id number] Authorized 11/17/2021 11/17/2022 3 3 Encounter Details Date Type Department Care Team Description 11/30/2021 Hospital Encounter Division of [place], Gastro-Es ophageal Gastroenterology in Julián Narayan M.D. Reflux Disease With [place], [place] [address] Esophagitis Without [address] [place] [address] [facility] [phone] [place] [address] Social History Tobacco Use Types Packs/Day Years [...] or relatives? How often do you attend pentecostal or More than 4 times per year 11/16/2021 shinto services? Do you belong to any clubs or No 11/16/2021 organizations such as pentecostal groups, unions, fraternal or athletic groups, or [...] place to sleep or slept in a senior living (including now)? Education Answer Date Recorded What is the highest level of school you have GED or equivale nt 11/16/2021 completed or the highest degree you have received? Sex Assigned at Date Recorded Female 01/25/2018 11:49 AM CDT documented as of this encounter Medications at Time of Discharge Medication Sig Dispensed Refills Start Date End Date acetaminophen (TYLENOL) Take 500 mg by mouth 0 500 mg tablet as needed. ALPRAZOLAM ORAL Take 2 mg by mouth 0 at bedtime as needed for anxiety. aspirin/acetaminophen/caff Take 1 tablet by 0 eine (EXCEDRIN MIGRAINE mouth as needed. ORAL) pxgaesngvr-dpqnghhpcfaal-c Take 1 tablet by 0 aff (ESGIC) 50-325-40 mg mouth every 4 (four) per tablet hours as needed. dextroamphetamine-amphetam Take 45 mg by mouth 0 ine (ADDERALL) 30 mg every morning. tablet diclofenac sodium Apply 2 g topically 100 g 1 (Voltaren) 1 % gel 4 (four) times a day. Apply to hands. diphenhydramine-lidocaine Take 5-10 mL by 480 mL 08/12 2 %-antacid (mw) mouth 4 (four) times a day after meals and bedtime. Hold in mouth for 1 minute.Do not eat or drink for 15-30 minutes after use. famotidine (PEPCID) 40 mg Take 1 tablet (40 mg 180 tablet 11 11/03/2021 tablet total) by mouth 2 (two) times a day. folic acid 1 mg Take 2 tablets 180 tablet 3 08/06/2021 tabletIndications: (2,000 mcg total) by Arthritis Inflammatory mouth daily. (HCC) hydrOXYchloroQUINE Take 1-2 tablets 135 tablet 3 08/06/2021 (PLAQUENIL) 200 mg (200-400 mg total) tabletIndications: by mouth daily. Take Arthritis Inflammatory 1 tab on odd days (HCC) and 2 tabs on even days hydrOXYzine (ATARAX) 25 mg Take 25 mg by mouth 0 tablet every 6 (six) hours as needed for itching. ketorolac (TORADOL) 10 mg Take 1 tablet (10 mg 20 tablet 0 11/16/2021 tablet total) by mouth every 6 (six) hours as needed for pain. methotrexate 25 mg/mL Inject 1 mL (25 mg 12 mL 1 2021 injectionIndications: total) under the Arthritis Inflammatory skin once a week. (HCC) Labs needed for further refills. modafiniL (PROVIGIL) 100 Take 100 mg by mouth 0 mg tablet daily. pantoprazole (PROTONIX) 40 Take 1 tablet (40 mg 60 tablet 11 11/26/2020 mg EC tablet total) by mouth 2 (two) times a day. pilocarpine (SALAGEN) 5 mg Take 1 tablet (5 mg 90 tablet 11 08/06/2021 tabletIndications: total) by mouth 3 Xerostomia (three) times a day. RABEprazole (ACIPHEX) 20 Take 1 tablet (20 mg 180 tablet 11 0 11/03/2021 mg EC tablet total) by mouth 2 (two) times a day before breakfast and dinner. sucralfate (CARAFATE) 1 TAKE 1 TABLET (1 G 360 tablet 3 10/30 gram tablet TOTAL) BY MOUTH 4 (FOUR) TIMES A DAY. TAKE 1 HOUR BEFORE MEALS AND AT BEDTIME SUMAtriptan (IMITREX Inject under the 0 5 STATDOSE) 6 mg/0.5 mL skin as needed. Uses injection pen 2-4x/month for migraine. Uses once and then once again after 1h if no effect. syringe with needle (BD Inject 1 Syringe 12 Syringe 3 2020 Tuberculin Syringe) 1 mL under the skin once 27 x 1/2 syringe a week. For use with weekly Methotrexate injections tranexamic acid (LYSTEDA) Take 650 mg by mouth 0 650 mg tablet daily. documented as of this encounter Procedure Notes Jose Gray M.D. - 11/30/2021 9:45 AM CDTAssociated Order(s): ESOPHAGEAL MANOMETRY Images from the original note were not included. TECHNICAL ASPECTS: This was a high-resolution impedance manometry study with liquid bolus protocol performed in the upright (seated) and supine positions. RESULTS: Supine: The proximal border of the LES was located 37.1 cm from the nares with a total LES length of 2.1 cm.There was a 1 cm hiatal hernia present. Resting LES pressure was normal at 20.7 mmHg, with abnormal relaxation reflected by a IRP of 15.2 mmHg (slightly above normal, which is less than 15.0 mmHg. A total of 10 swallows were evaluated of which 3 were weak and 2 were failed. Bolus clearance as measured by impedance was incomplete for 2 swallows. Upper esophageal sphincter function appeared normal. Upright (Seated): 10 liquid swallows were performed in the upright (seated) position. Note that median IRP in secondary position was -7.4. Multiple Rapid Swallow: 3 MRS sequences were performed with at least 1 sequence demonstrating a DCI >1 without inhibitorybreakthrough OVERALL IMPRESSION: This is consistent with ineffective esophageal motility, with 5/10 swallows being normal, 2 failed, and 3 weak in the supine position. Though median IRP was slightly elevated in the supine position, this corrected to normal in the secondary seated position. documented in this encounter Miscellaneous Notes Result Encounter Note - Julián Edouard M.D. - 12/01/2021 12:20 PM CDT The test shows that the peristalsis is not very effective. You could try an extra dose of the pantoprazole at mid-day but I think it is reasonable to meet with the surgeon at this point. Let me know ifyou want to proceed. documented in this encounter Plan of Treatment Upcoming Encounters Date Type Specialty Care Team Description 01/08/2022 Appointment Radiology Julián Edouard M.D. [address] [place] [phone] ([facility]) 01/08/2022 Ancillary Procedure Cardiovascular Disease Julián Edouard M.D. [address] [place] [phone] ([place]) 01/08/2022 Comprehensive Visit Thoracic Surgery Tess Raphael M.D. [address] [place] [phone] ([facility]) documented as of this encounter Procedures Procedure Name Priority Date/Time Associated Diagnosis Comme nts ID PH STUDY NASL Routine 12/01/2021 1:39 PM Gastro-Esophageal Results for this CATH CDT Reflux Disease With procedur e are in Esophagitis Without the resu lts Bleeding section. ESOPHAGEAL MANOMETRY Routine 11/30/2021 9:45 AM Gastro-Esophag eal Results for this CDT Reflux Disease With procedur e are in Esophagitis Without the resu lts Bleeding section. documented in this encounter Results ID PH STUDY NASL CATH (12/01/2021 1:39 PM CDT) Narrative [employer] - 12/01/2021 1:39 PM CDT Dae Mcgee M.B., Nellie. ? 12/01/2021 ??1:46 PM Esophageal pH Testing Date/Time: 12/01/2021 1:39 PM Performed by: Dae Mcgee M.B., [place] Authorized by: Julián Edouard M.D. Julián Edouard M.D. GI PROCEDURE ORDERABLES Performing Organization Address City/State/ZIP Code Phon e Number [employer] NA Esophageal Manometry (11/30/2021 9:45 AM CDT) [...] Bleeding - Primary documented in this encounter Administered Medications Inactive Administered Medications - up to 3 most recent administrations Medication Order MAR Action Action Date Dose Rate Site lidocaine HCL 2 % topical jelly 0.2 Given 11/30/2021 9:45 AM CDT 1 mL application (GLYDO) 0.2 application (1 mL), nasal, As needed, other, procedure, Starting on 11/30/21 at 0933, For 2 doses, For esophageal manometry or pH/24 hour impedance probe: administer in an unobstructed nostril once. May repeat once. documented in this encounter Additional Health Concerns Assessment Noted Time PHQ-9 Depression Total Score: 15 04/21/2018 1:00 PM CS T documented as of this encounter Care Teams Nurse'S Assistant Relationship Specialty Start Date End Date Elsewhere, Pcp PCP - General Internal Medicine 10/22/19 documented as of this encounter
--- OUTSIDE RECORDS SUMMARY | 2022-01-08 10:37 | XMS_ITS | Encounter Summary ---
:1970 Author Organization [facility] Address [address] [place] [address] Care Team Providers Name Role Phone Elsewhere, Pcp Primary Care Provider Unavailable Encounter Details Date Type Department Care Team Description 11/13/2021 Ancillary Procedure Department of Gastroenterology Social History Tobacco Use Types Packs/Day Years [...] More than 4 times per year 11/16/2021 orthodox services? Do you belong to any clubs [...] place to sleep or slept in a custodial (including now)? Education Answer Date Recorded What is the highest level of school you have Some college, n o degree 01/02/2019 completed or the highest degree you have received? Sex Assigned at Date Recorded Female 01/25/2018 11:49 AM CDT documented as of this encounter Plan of Treatment Upcoming Encounters Date Type Specialty Care Team Description 01/08/2022 Appointment Radiology Julián Edouard M.D. [address] [place] [phone] (Wo r[place]) 01/08/2022 Ancillary Procedure Cardiovascular Disease Julián Edouard M.D. [address] [place] [phone] (Wo rk) 01/08/2022 Comprehensive Visit Thoracic Surgery Tess Raphael M.D. [address] [place] [phone] (Wo rk) documented as of this encounter Procedures Procedure Name Priority Date/Time Associated Comments Diagnosis GASTROENTEROLOGY IMAGE Routine 11/13/2021 1:30 Re sults for this EXAM PM CDT procedure are i n the results section. documented in this encounter Results Upper GI endoscopy-Gastroenterology Image Exam (11/13/2021 1:30 [...] RAD IMAGING PROCEDUR ES Performing Organization Address City/State/ZIP Code Phon e Number [facility]IMS IIMS NA documented in this encounter Visit Diagnoses Not on filedocumented in this encounter Additional Health Concerns Assessment Noted Time PHQ-9 Depression Total Score: 15 04/21/2018 1:00 PM CS T documented as of this encounter Care Teams District Branch Manager Relationship Specialty Start Date End Date Elsewhere, Pcp PCP - General Internal Medicine 10/22/19 documented as of this encounter
--- OUTSIDE RECORDS SUMMARY | 2022-01-08 10:37 | XMS_ITS | Encounter Summary ---
:1970 Author Organization [facility] Address [address] [place] [address] Care Team Providers Name Role Phone Elsewhere, Pcp Primary Care Provider Unavailable Encounter Details Date Type Department Care Team Description 11/13/2021 Anesthesia Event Division of Gastroenterology Janet Duran, in [facility] kristin LAB[employer], LINEN CONTROLLER [address] [place] [address] [place], [place] [phone] Anesthesia Record Procedure Summary Procedure Name Responsible Anesthesia Start Anesthesia Stop Time Anesthesiologist Time EGD Donald Duran, LABORER [employer], 11/13/21 1332 11/13/21 1358 (ESOPHAGEALGASTRODU LINEN CONTROLLER ODENOSCOPY) Events Date Time Event Comment 11/13/2021 1332 An Start Machine/Equipmen t Checked Infection Precautions Foll owed Procedure/Site Verified NPO Sta tus Verified Supine Standard ASA Mon itors Applied 1336 an luiz now 1338 Turnover to Proceduralist 1339 Proc Start 1340 an luiz now 1342 Proc Fin 1343 Turnover to ANE Staff 1353 an stop data 1358 An End I completed my h andoff to the receiving staff during [facility] we 1. Identified the patient 2. Ident ified the responsible provider 3. Revi ewed the pertinent medical history 4. Discu ssed the surgical course 5. Reviewed intra-o p anesthesia management and issues during an esthesia 6. Set expectations for post-procedure period 7. Allowed opportun ity for questions and acknowledgement of understanding. Name Total fentanyl injection 50 mcg/mL 50 mcg lidocaine 2% (mg) injection 100 mg propofol 10 mg/mL injection 150 mg ondansetron PF 4 mg/2 mL injection 4 mg haloperidol 5 mg/mL injection 1 mg acetaminophen 1,000 mg/100 mL injection 1,000 mg ketorolac 30 mg injection 15 mg caffeine-sodium benzoate 250 mg (125 mg caffeine)/mL i njection 250 mg dexamethasone 4 mg/mL injection 8 mg Lactated Ringers Free Drip 300 mL Agents No agents on file. Blood No blood administrations on file. Lines, Drains, and Airways Type Details Placement Removal Peripheral IV Placement Date: 11/13/21; 11/13/21 1325 by Cortney erin, 11/13/21 1443 by Placement Time: 1325; Ian Morin An gela C, R.N. Catheter Size: 20 G; Orientation: Right; Location: Hand; Site Prep: Alcohol; Technique: Anatomical landmarks; Inserted by: Ashli Adam RN; Insertion Attempts: 1; Removal Date: 11/13/21; Removal Time: 1443 documented in this encounter Social History Tobacco Use Types Packs/Day Years [...] or relatives? How often do you attend quaker or More than 4 times per year 11/16/2021 rastafarian services? Do you belong to any clubs or No 11/16/2021 organizations such as quaker groups, unions, fraternal or athletic groups, or [...] place to sleep or slept in a half-way (including now)? Education Answer Date Recorded What is the highest level of school you have Some college, n o degree 01/02/2019 completed or the highest degree you have received? Sex Assigned at Date Recorded Female 01/25/2018 11:49 AM CDT documented as of this encounter OR Notes Anesthesia Postprocedure Evaluation - Donald Duran APRN, CRNA - 11/13/2021 2:02 PM CDT Patient: Waleska Diaz Procedure Summary Date: 11/13/21 Room / Location: Division of Gastroenterology in [place], [place] Anesthesia Start: 1331 Anesthesia Stop: 1358 Procedure: EGD (ESOPHAGEALGASTRODUODENOSCOPY) Diagnosis: Gastro-Esophageal Reflux Disease With Esophagitis Without Bleeding Scheduled Providers: Bony Perez M.D. Responsible Provider: Donald Duran APRN, CRNA Anesthesia Type: MAC ASA Status: 2 Anesthesia Type: MAC Last vitals Vitals Value Taken Time BP 110/67 11/13/21 1400 Temp 35.7 ??C 11/13/21 1356 Pulse 63 11/13/21 1401 Resp 14 11/13/21 1401 SpO2 97 % 11/13/21 1401 Vitals shown include unvalidated device data. Please reference Vitals flowsheet for most recent vital signs. Anesthesia Post Evaluation Patient Disposition: dismissal Cardiovascular status: hemodynamics (HR & BP) acceptable Respiratory status: patent airway with spontaneous effort Temperature: normothermic Oxygen requirements: room air Level of consciousness: awake Pain score: pain adequately controlled and/or at baseline Post Op nausea/vomiting: none Hydration status: euvolemic Anesthesia Preprocedure Evaluation - Donald Duran APRN, CRNA - 11/13/2021 1:47 PM CDT Preprocedure Anesthesia & H&P Assessment Procedure Summary Anesthesia Start Date/Time: 07/15/22 1332 Scheduled providers: Bony Perez M.D. Procedure: EGD (ESOPHAGEALGASTRODUODENOSCOPY) Diagnosis: Gastro-Esophageal Reflux Disease With Esophagitis Without Bleeding [K21.00] Location: Division of Gastroenterology in [place], [place] Pertinent components of the patient's history including current problem list, medical history, surgical history, family history, social history, medications and allergies were reviewed. Present illnessand pre-op diagnosis were confirmed. The planned surgery / procedure was verified with the patient /legal guardian. 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 Risks/Benefits/Alternatives of Blood transfusion discussed with patient / legal guardian, including an opportunity to ask questions and/or decline some or all transfusion therapies. The patient / legalguardian consented to the use of all blood products, as deemed medically necessary Approval to Proceed: approved for anesthesia Pt presents with migraine headache. Pt requests treatment for headache during case. documented in this encounter Plan of Treatment Upcoming Encounters Date Type Specialty Care Team Description 01/08/2022 Appointment Radiology Julián Edouard M.D. [address] [place] [phone] ([place]) 01/08/2022 Ancillary Procedure Cardiovascular Disease Julián Edouard M.D. [address] [place] [phone] ([facility]) 01/08/2022 Comprehensive Visit Thoracic Surgery Tess Raphael M.D. [address] [place] [phone] (Wo rk) documented as of this encounter Visit Diagnoses Not on filedocumented in this encounter Administered Medications Inactive Administered Medications - up to 3 most recent administrations Medication Order MAR Action Action Date Dose Rate Site acetaminophen injection Given 11/13/2021 1:36 PM CDT 1,000 mg intravenous, Administer over 15 Minutes, As needed, Starting on Tue11/13/21 at 1336, Anesthesia Intra-op caffeine-sodium benzoate injection Given 11/13/2021 1:43 PM CDT 250 mg intravenous, As needed, Starting on Tue11/13/21 at 1343, Anesthesia Intra-op dexAMETHasone injection (DECADRON) Given 11/13/2021 1:40 PM CDT 8 mg intravenous, As needed, Starting on Tue11/13/21 at 1340, Anesthesia Intra-op fentaNYL injection (SUBLIMAZE) Given 11/13/2021 1:41 PM CDT 25 mcg intravenous, As needed, Starting on Tue11/13/21 at 1335, Anesthesia Intra-op Given 11/13/2021 1:35 PM CDT 25 mcg haloperidol lactate injection (HALDOL) Given 11/13/2021 1:43 PM CDT 1 mg intravenous, As needed, Starting on Tue11/13/21 at 1343, Anesthesia Intra-op ketorolac injection (TORADOL) Given 11/13/2021 1:41 PM CDT 15 mg intravenous, As needed, Starting on Tue11/13/21 at 1341, Anesthesia Intra-op lactated ringers New Bag 11/13/2021 1:32 PM CDT intravenous, Continuous Infusion: Per Instructions PRN, Starting on Tue11/13/21 at 1332, Anesthesia Intra-op lidocaine (PF) (cardiac) injection Given 11/13/2021 1:37 PM CDT 40 mg intravenous, As needed, Starting on Tue11/13/21 at 1335, Anesthesia Intra-op Given 11/13/2021 1:35 PM CDT 60 mg ondansetron (PF) injection (ZOFRAN) Given 11/13/2021 1:36 PM CDT 4 mg intravenous, As needed, Starting on Tue11/13/21 at 1336, Anesthesia Intra-op propofoL injection (DIPRIVAN) Given 11/13/2021 1:41 PM CDT 10 mg intravenous, As needed, Starting on Tue11/13/21 at 1336, Anesthesia Intra-op Given 11/13/2021 1:39 PM CDT 20 mg Given 11/13/2021 1:38 PM CDT 40 mg documented in this encounter Additional Health Concerns Assessment Noted Time PHQ-9 Depression Total Score: 15 04/21/2018 1:00 PM CS T documented as of this encounter Care Teams Zinc Chloride Operator Relationship Specialty Start Date End Date Elsewhere, Pcp PCP - General Internal Medicine 10/22/19 documented as of this encounter
--- OUTSIDE RECORDS SUMMARY | 2022-01-08 10:37 | XMS_ITS | Clinical Summary ---
:1970 Author Organization [employer] [facility] [place] [address] Care Team Providers Name Role Phone Katerina Contreras Unavailable Unavailable Pcp, No Primary Care Provider Unavailable Allergies Active Allergy Reactions Severity Noted Date Comments Adhesive Tape-Silicones Rash 11/17/2016 Hydrocodone Bitartrate Itching 02/12/2013 Iodine Shortness Of Breath 08/28/2014 Pecan Nut Angioedema 01/10/2017 Hydrocodone-Acetaminophen Itching, Nausea Only 015 Medications Medication Sig Dispensed Refills Start End Status Date Date lidocaine, viscous, 2% Swish and spit 15 mL 1 Bottle 0 Active (LIDOCAINE VISCOUS) 2 by mouth every 4 hours 17 % solutionIndications: if needed. Tongue pain fluticasone (50 mcg Inhale 1 [place] into 1 Bottle 2 01/27/20 Active per actuation) nasal both nostrils once 17 solution daily. (FLONASE)Indications: Sinus pressure SUMAtriptan (IMITREX) INJECT 6 MG 1 pen 1 04/15/20 Active 6 mg/0.5 mL SUBCUTANEOUS EVERY 2 17 subcutaneous pen HOURS IF NEEDED FOR injectorIndications: MIGRAINE. Migraine without aura and with status migrainosus, not intractable acetaminophen (TYLENOL Take 500 mg by mouth. 0 Active EXTRA STRGTH) 500 mg tablet ALPRAZolam 2 mg tablet Bedtime as needed 0 12/12/19 Active 20 Amphetamine-Dextroamph dextroamphetamine-amph 0 Active etamine (ADDERALL) 30 etamine 30 mg tablet mg tablet dextroamphetamine-amph Daily 0 11/23/19 Active etamine (ADDERALL XR) 20 15 mg Extended-Release capsule DULoxetine (CYMBALTA) Daily 0 12/17/19 Active 60 mg Delayed-release 20 capsule hydrOXYchloroQUINE hydroxychloroquine 200 0 11/22/19 Active (PLAQUENIL) 200 mg mg tablet 20 tablet hydrOXYzine pamoate hydroxyzine pamoate 25 0 Active (VISTARIL) 25 mg mg capsule capsule lansoprazole lansoprazole 15 mg 0 Active (PREVACID) 15 mg capsule,delayed capsule release LORazepam (ATIVAN) 1 lorazepam 1 mg tablet 0 Active mg tablet nitrofurantoin Take 1 capsule by 30 capsule 11 01/23/20 Active macrocrystaL mouth one time if 20 (MACRODANTIN) 50 mg needed for Other capsuleIndications: (Specify). Take one Recurrent UTI tablet PO at time of intercourse estrogens, conjugated Insert 1 g into the 1 Tube 0 01/23/20 Active (PREMARIN) 0.625 vagina at bedtime. 20 mg/gram vaginal creamIndications: Recurrent UTI Active Problems Problem Noted Date Insomnia 07/25/2017 Raynaud's disease without gangrene 07/06/2017 Insomnia, idiopathic 01/17/2017 Migraine syndrome 08/26/2016 Mixed connective tissue disease (HC). Has seen Rheumat ology at [place]. 08/23/2016 Overview: Diagnosis of MCTD made in at [facility] when living in [place]. Lesion of pituitary gland (HC). 4mm. stable. last note d on MRI 2013 in 08/23/2016 [place] Attention deficit hyperactivity disorder (ADHD), predo minantly inattentive 06/24/2016 type Essential hypertension 02/23/2016 Urinary urgency 06/30/2015 Diarrhea 11/12/2014 Overview: EGD 10/2014 normal, laparoscopic band pre sent Colonoscopy 10/2014 normal, internal hemo rrhoids repeat in 10 years Hx of laparoscopic gastric banding 11/11/2014 Internal hemorrhoids 11/11/2014 Immunizations Name Administration Dates Next Due Influenza Virus, Unspecified 02/09/2016 Influenza, IIV4 01/30/2017, 02/09/2016, 02/05/2015 MMR 09/05/2014, 07/25/2014 Tdap 07/11/2014 Tdap, Unspecified 07/11/2014 Family History Medical History Relation Name Comments Other Father unsure. minimal contact, history of Drug Use Hypertension Mother Relation Name Status Comments Father Alive Mother Alive Social History Tobacco Use Types Packs/Day Years Used Date Never Smoker Smokeless Tobacco: Never Used Tobacco Cessation: Counseling Given: Yes Alcohol Use Standard Drinks/Week Comments Not Currently 0 (1 standard drink = 0.6 oz pure alcoho l) Once a month - Beer Alcohol Habits Answer Date Recorded How often do you have a drink containing alcohol? Not asked How many drinks containing alcohol do you have on a Not aske d typical day when you are drinking? How often do you have six or more drinks on one Not asked occasion? Comment: Once a month - Beer 06/30/2015 Sex Assigned at Date Recorded Not on file Obstetrics History Last Filed Vital Signs Vital Sign Reading Time Taken Comments Blood Pressure 109/74 01/23/2020 1:50 PM CDT Pulse 91 01/23/2020 1:50 PM CDT Temperature 37.2 ??C (99 ??F) 10/31/2017 4:07 PM CDT Respiratory Rate 18 01/23/2020 1:50 PM CDT Oxygen Saturation 95% 01/23/2020 1:50 PM CDT Inhaled Oxygen - - Concentration Weight 77.8 kg (171 lb 9.6 01/23/2020 1:50 PM Pt weighe d with shoes oz) CDT on. Height 158.9 cm (5' 2.56) 10/31/2017 4:07 PM CDT Body Mass Index 30.83 10/31/2017 4:07 PM CDT Plan of Treatment Health Maintenance Due Date Last Done Comments Hepatitis C screening for age 0812/30[birth year]1989 18-79 Lipids for age 45-75 12/30/2016 Depression screening for age 12+ 07/25/2018 07/25/2017, 12/2017, 09/15/2016, Additional history exists Mammogram for age 45-75 08/11/2018 08/11/2017 BMI (ht and wt on same day) for 10/31/2018 10/31/2017, 06/03, age 18+ 06/17/2017, Additional history exists COVID-19 vaccine series (4 - 12/30/2021 08/06/2021, 021, Booster for Pfizer series) 04/24/2020 Zoster (shingles) series for age 0812/30/2021 50+ (1 of 2) Influenza for age 50-64 2021 01/30/2017, 02/09/2016, 02/09/2016, Additional history exists Pap test for age 21-65 08/15/2023 08/14/2020, 08/14/2020, 01/14/2015 (Completed outside of [facility]) Tetanus booster 07/11/2024 07/11/2014, 07/11/2014 Colonoscopy through age 75 11/11/2024 11/11/2014 Tdap Completed 07/11/2014, 07/11/2014 Results Not on filefrom Last 3 Months Insurance Payer Benefit Plan / Subscriber ID Effective Dates Phone Addre ss Type Group BLUE CROSS BLUE CROSS OF [id number] 2014-Present [address] [address] [place] [address] Care Teams Legal Librarian Relationship Specialty Start Date End Date Pcp, No PCP - General 02/28/19 . Katerina Contreras Outbound Call Center Representative 07/21/16
--- OUTSIDE RECORDS SUMMARY | 2022-01-08 10:37 | XMS_ITS | Encounter Summary ---
:1970 Author Organization [facility] Address [address] [place] [address] Care Team Providers Name Role Phone Elsewhere, Pcp Primary Care Provider Unavailable Reason for Visit Reason Comments Med Refill Encounter Details Date Type Department Care Team Description 11/13/2021 Refill Division of Gastroenterology in Julián Edouard Med Refill [place], [place] Alex [address] [facility] [address] [place] [address] [place], [place] [phone] (Wo rk) Social History Tobacco Use Types Packs/Day Years [...] or relatives? How often do you attend jewish or More than 4 times per year 11/16/2021 confucianism services? Do you belong to any clubs or No 11/16/2021 organizations such as jewish groups, unions, fraternal or athletic groups, or [...] place to sleep or slept in a intermediate (including now)? Education Answer Date Recorded What is the highest level of school you have Some college, n o degree 01/02/2019 completed or the highest degree you have received? Sex Assigned at Date Recorded Female 01/25/2018 11:49 AM CDT documented as of this encounter Plan of Treatment Upcoming Encounters Date Type Specialty Care Team Description 01/08/2022 Appointment Radiology Julián Edouard M.D. [address] [place] [address] (Wo rk) 01/08/2022 Ancillary Procedure Cardiovascular Disease Julián Edouard M.D. [address] [place] [address] (Wo rk) 01/08/2022 Comprehensive Visit Thoracic Surgery Tess Raphael M.D. [address] [place] [phone] (Wo rk) documented as of this encounter Visit Diagnoses Not on filedocumented in this encounter Additional Health Concerns Assessment Noted Time PHQ-9 Depression Total Score: 15 04/21/2018 1:00 PM CS T documented as of this encounter Care Teams Lap Layer Relationship Specialty Start Date End Date Elsewhere, Pcp PCP - General Internal Medicine 10/22/19 documented as of this encounter
--- OUTSIDE RECORDS SUMMARY | 2022-01-08 10:37 | XMS_ITS | Encounter Summary ---
:1970 Author Organization [facility] Address [address] [place] [address] Care Team Providers Name Role Phone Elsewhere, Pcp Primary Care Provider Unavailable Reason for Visit Reason Comments Follow-up Encounter Details Date Type Department Care Team Description 12/02/2021 Clinical Communication Division of Wilda Edouard Gastroenterology in Julián Narayan M.D. [place], [place] [address] [facility] [address] [place] [phone] Social History Tobacco Use Types Packs/Day Years [...] or relatives? How often do you attend buddhist or More than 4 times per year 11/16/2021 yazidism services? Do you belong to any clubs or No 11/16/2021 organizations such as buddhist groups, unions, fraternal or athletic groups, or [...] Appointment Radiology Julián Edouard M.D. [address] [place] [address] (Wo rk) 01/08/2022 Ancillary Procedure Cardiovascular Disease Julián Edouard M.D. [address] [place] [address] (Wo rk) 01/08/2022 Comprehensive Visit Thoracic Surgery Tess Raphael M.D. [address] [place] [phone] (Wo rk) documented as of this encounter Visit Diagnoses Not on filedocumented in this encounter Additional Health Concerns Assessment Noted Time PHQ-9 Depression Total Score: 15 04/21/2018 1:00 PM CS T documented as of this encounter Care Teams Casket Assembler Relationship Specialty Start Date End Date Elsewhere, Pcp PCP - General Internal Medicine 10/22/19 documented as of this encounter
--- OUTSIDE RECORDS SUMMARY | 2022-01-08 10:37 | XMS_ITS | Encounter Summary ---
:1970 Author Organization [facility] Address [address] [place] [address] Care Team Providers Name Role Phone Elsewhere, Pcp Primary Care Provider Unavailable Reason for Visit Outpatient (Routine) - Authorized Specialty Diagnoses / Procedures Referred By Contact Refer red To Contact Diagnoses Gastro-Esophageal Reflux Disease With Esophagitis Without Bleeding Julián Edouard M.D. [facility] Procedures Esophageal pH Testing [address] [place], [place] [phone] Referral ID Status Reason Start Date Expiration Date Visits V isits Requested Authorized [id number] Authorized 11/17/2021 11/17/2022 3 3 Encounter Details Date Type Department Care Team Description 12/01/2021 Hospital Encounter Division of Robert Edouard-Es ophageal Gastroenterology in Julián Narayan M.D. Reflux Disease With [place], [place] [address] Esophagitis Without [address] Bleeding (Primary [place], [place] [address] [place], ) [phone] [place] [phone] Social History Tobacco Use Types Packs/Day Years [...] More than 4 times per year 11/16/2021 orthodoxy services? Do you belong to any clubs [...] place to sleep or slept in a retirement (including now)? Education Answer Date Recorded What [...] eine (EXCEDRIN MIGRAINE mouth as needed. ORAL) mwcwqgeezm-zhtqmiyamivqs-a Take 1 tablet by 0 aff (ESGIC) 50-325-40 mg mouth every 4 (four) per tablet hours as needed. dextroamphetamine-amphetam Take 45 mg by mouth 0 ine (ADDERALL) 30 mg every morning. tablet diclofenac sodium Apply 2 g topically 100 g 1 1 (Voltaren) 1 % gel 4 (four) times a day. Apply to hands. diphenhydramine-lidocaine Take 5-10 mL by 480 mL 11 08/12 2 %-antacid (mw) mouth 4 (four) [...] the Arthritis Inflammatory skin once a week. ([facility]) Labs needed for further refills. modafiniL (PROVIGIL) 100 Take 100 mg by mouth 0 mg tablet daily. pantoprazole (PROTONIX) 40 Take 1 tablet (40 mg 60 tablet 11/26/2020 mg EC tablet total) by mouth 2 (two) times a day. pilocarpine (SALAGEN) 5 mg Take 1 tablet (5 mg 90 tablet 08/06/2021 tabletIndications: total) by mouth 3 Xerostomia (three) times a day. RABEprazole (ACIPHEX) 20 Take 1 tablet (20 mg 180 tablet 11 0 11/03/2021 mg EC tablet total) by mouth 2 (two) times a day before breakfast and dinner. sucralfate (CARAFATE) 1 TAKE 1 TABLET (1 G 360 tablet 10/30 gram tablet TOTAL) BY MOUTH 4 [...] documented as of this encounter Procedure Notes Dae Mcgee M.B., Nellie. - 12/01/2021 11:30 AM CDTAssociated Order(s): Esophageal pH Testing Pre-Procedure Diagnose(s): Gastro-Esophageal Reflux Disease With Esophagitis Without Bleeding Esophageal pH Testing Date/Time: 12/01/2021 1:39 PM Performed by: Dae Mcgee M.B., Nellie. Authorized by: Julián Edouard M.D. TECHNICAL ASPECTS: This was a 24 hr impedance pH study performed on PPI therapy. The impedance pH catheter was positioned with one pH probe in the distal esophagus 5 cm above the lower esophageal sphincter and the other pH probe in the gastric body 10 cm below the lower esophageal sphincter. RESULTS: The total study duration was 24 hours 52 minutes, with 15 hours 7 minutes in the upright position and 9 hours 45 minutes in the recumbent position. Nearly 4 hours of the study had to be excluded after midnight due to esophageal probe dry out. The total percent time with esophageal pH less than 4 was 10.4%, with 15.4% in the upright and 0% inthe recumbent position. Gastric pH was less than 4 for 26.8% of the study. The DeMeester score was 28.1. There were a total of 103 impedance detected reflux events, with normal being less than 57 reflux events. There were a total of 23 acid and 81 non acid reflux events. The patient reported 1 episode of throat burning that was associated reflux. OVERALL IMPRESSION: #1 Abnormal study with predominantly upright reflux noted. The supine reflux that was documented was essentially esophageal probe dry out rather than actual reflux events (this had to be excluded from the study). documented in this encounter Plan of Treatment Upcoming Encounters Date Type Specialty Care Team Description 01/08/2022 Appointment Radiology Julián Edouard M.D. [address] [place] [phone] (Wo rk) 01/08/2022 Ancillary Procedure Cardiovascular Disease Julián Edouard M.D. [address] [place] [phone] (Wo rk) 01/08/2022 Comprehensive Visit Thoracic Surgery Tess Raphael M.D. [address] [place] [phone] (Wo rk) documented as of this encounter Procedures Procedure Name Priority Date/Time Associated Diagnosis Comme nts OH PH STUDY NASL Routine 12/01/2021 1:39 PM Gastro-Esophageal Results for this CATH CDT Reflux Disease With procedur e are in Esophagitis Without the resu lts Bleeding section. documented in this encounter Results OH PH STUDY NASL CATH (12/01/2021 1:39 PM CDT) Narrative [employer] - 12/01/2021 1:39 PM CDT Dae Mcgee M.B., Romina ? 12/01/2021 ??1:46 PM Esophageal pH Testing [...] documented as of this encounter Care Teams User Interface Designer Relationship Specialty Start Date End Date Elsewhere, Pcp PCP - General Internal Medicine 10/22/19 documented as of this encounter
--- OUTSIDE RECORDS SUMMARY | 2022-01-08 10:37 | XMS_ITS | Encounter Summary ---
:1970 Author Organization [facility] Address [address] [place] [address] Care Team Providers Name Role Phone Elsewhere, Pcp Primary Care Provider Unavailable Encounter Details Date Type Department Care Team Description 11/30/2021 Clinical Communication Division of [place], Gastroenterology in Julián Narayan M.D. [place], [place] [address] [facility] [address] [place] [phone] Social History Tobacco Use Types Packs/Day Years [...] or relatives? How often do you attend mosque or More than 4 times per year 11/16/2021 scientologist services? Do you belong to any clubs or No 11/16/2021 organizations such as mosque groups, unions, fraternal or athletic groups, or [...] place to sleep or slept in a penitentiary (including now)? Education Answer Date Recorded What is the highest level of school you have GED or equivale nt 11/16/2021 completed or the highest degree you have received? Sex Assigned at Date Recorded Female 01/25/2018 11:49 AM CDT documented as of this encounter Plan of Treatment Upcoming Encounters Date Type Specialty Care Team Description 01/08/2022 Appointment Radiology Julián Edouard M.D. [address] [place] [address] (Wo rk) 01/08/2022 Ancillary Procedure Cardiovascular Disease Julián Edouard M.D. [address] [place] [phone] (Wo rk) 01/08/2022 Comprehensive Visit Thoracic Surgery Tess Raphael M.D. [address] [place] [phone] (Wo rk) documented as of this encounter Visit Diagnoses Not on filedocumented in this encounter Additional Health Concerns Assessment Noted Time PHQ-9 Depression Total Score: 15 04/21/2018 1:00 PM CS T documented as of this encounter Care Teams Sorter Upholstery Parts Relationship Specialty Start Date End Date Elsewhere, Pcp PCP - General Internal Medicine 10/22/19 documented as of this encounter
--- OUTSIDE RECORDS SUMMARY | 2022-01-08 10:38 | XMS_ITS | Encounter Summary ---
:1970 Author Organization [facility] Address [address] [place] [address] Care Team Providers Name Role Phone Elsewhere, Pcp Primary Care Provider Unavailable Reason for Visit Reason Comments Med Refill Encounter Details Date Type Department Care Team Description 06/26/2021 Refill Division of Rheumatology in Smita Munson sa, APRN, Med Refill [place], [place] C.N.P. [address] [facility] [address] [place] [address] [place] [address] [phone] (Wo rk) Social History Tobacco Use Types Packs/Day Years Used Date Smoking Tobacco: Never Smokeless Tobacco: Never Alcohol Use Standard Drinks/Week Comments Yes 1 (1 standard drink = 0.6 oz [...] or relatives? How often do you attend sabianist or More than 4 times per year 11/16/2021 zoroastrian services? Do you belong to any clubs or No 11/16/2021 organizations such as sabianist groups, unions, fraternal or athletic groups, or [...] place to sleep or slept in a longterm (including now)? Education Answer Date Recorded What is the highest level of school you have Some college, n o degree 01/02/2019 completed or the highest degree you have received? Sex Assigned at Date Recorded Female 01/25/2018 11:49 AM CDT documented as of this encounter Miscellaneous Notes Telephone Encounter - Humera Beckham R.N. - 06/30/2021 1:58 PM CST Refused, pt overdue for labs. Portal messages and letter sent letting patient know she needs labs. CLOPEDIA RESEARCH WORKER Telephone Encounter - Humera Beckham R.N. - 06/30/2021 1:55 PM CST Prescription renewal request for methotrexate received from pharmacy. HISTORY OF PRESENT ILLNESS Last Rheum visit: 03-04-21 with Velma Munson APRN, CNP Future office visit: ordered, not yet scheduled Last monitoring labs/eye exam: labs last 02-05-21 Prescription request matches current plan of care. Prescription request matches a current prescription in the Medication List. Exclusion criteria: None ASSESSMENT/PLAN Prescription request denied due to second consecutive delinquency for medication monitoring with reminders given. Patient contacted to inform them of reasoning for Rx denial. CLOPEDIA RESEARCH WORKER documented in this encounter Plan of Treatment Upcoming Encounters Date Type Specialty Care Team Description 01/08/2022 Appointment Radiology Julián Edouard M.D. [address] [place] [phone] (Wo rk) 01/08/2022 Ancillary Procedure Cardiovascular Disease Julián Edouard M.D. [address] [place] [phone] (Wo rk) 01/08/2022 Comprehensive Visit Thoracic Surgery Tess Raphael M.D. [address] [place] [phone] (Earl rk) documented as of this encounter Visit Diagnoses Diagnosis Arthritis Inflammatory (HCC) documented in this encounter Additional Health Concerns Assessment Noted Time PHQ-9 Depression Total Score: 15 04/21/2018 1:00 PM CS T documented as of this encounter Care Teams Team Supervisor Relationship Specialty Start Date End Date Elsewhere, Pcp PCP - General Internal Medicine 10/22/19 documented as of this encounter
--- OUTSIDE RECORDS SUMMARY | 2022-01-08 10:38 | XMS_ITS | Encounter Summary ---
:1970 Author Organization [facility] Address [address] [place] [address] Care Team Providers Name Role Phone Elsewhere, Pcp Primary Care Provider Unavailable Reason for Visit Reason Comments Med Refill Encounter Details Date Type Department Care Team Description 05/11/2021 Refill Division of Rheumatology in Smita Munson sa, APRN, Med Refill [place], [place] C.N.P. [address] [facility] [address] [place] [address] [place] [address] [phone] (Wo rk) Social History Tobacco Use Types [...] or relatives? How often do you attend cheondoism or More than 4 times per year 11/16/2021 jainism services? Do you belong to any clubs or No 11/16/2021 organizations such as cheondoism groups, unions, fraternal or athletic groups, or [...] place to sleep or slept in a fci (including now)? Education Answer Date Recorded What is the highest level of school you have Some college, n o degree 01/02/2019 completed or the highest degree you have received? Sex Assigned at Date Recorded Female 01/25/2018 11:49 AM CDT documented as of this encounter Miscellaneous Notes Telephone Encounter - Sarah Stewart R.N. - 05/13/2021 3:03 PM CST Prescription renewal request for methotrexate received from pharmacy. HISTORY OF PRESENT ILLNESS Last Rheum visit: 03/04/21 with Velma Munson APRN, [facility] Future office visit: ordered, not yet scheduled Last monitoring labs/eye exam: 02/05/21: within protocol parameters. Prescription request matches current plan of care. Prescription request matches a current prescription in the Medication List. Exclusion criteria: None ASSESSMENT/PLAN Prescription request pended for provider review due to missing monitoring labs. NESS INITIATIVES MANAGER documented in this encounter Plan of Treatment Upcoming Encounters Date Type Specialty Care Team Description 01/08/2022 Appointment Radiology Julián Edouard M.D. [address] [place] [phone] (Earl dowd) 01/08/2022 Ancillary Procedure Cardiovascular Disease Julián Edouard M.D. [address] [place] [phone] (Earl dowd) 01/08/2022 Comprehensive Visit Thoracic Surgery Tess Raphael M.D. [address] [place] [phone] (Earl dowd) documented as of this encounter Visit Diagnoses Diagnosis Arthritis Inflammatory (HCC) documented in this encounter Additional Health Concerns Assessment Noted Time PHQ-9 Depression Total Score: 15 04/21/2018 1:00 PM CS T documented as of this encounter Care Teams Tacker Elastic Band Relationship Specialty Start Date End Date Elsewhere, Pcp PCP - General Internal Medicine 10/22/19 documented as of this encounter
--- OUTSIDE RECORDS SUMMARY | 2022-01-08 10:38 | XMS_ITS | Encounter Summary ---
:1970 Author Organization [facility] Address [address] [place] [address] Care Team Providers Name Role Phone Elsewhere, Pcp Primary Care Provider Unavailable Reason for Visit Reason Onset Date Comments Outpatient COVID-19 Testing 11/10/2021 Encounter Details Date Type Department Care Team Description 11/10/2021 External Outreach Department of [facility] Higinio Chapa Contact With And Medicine in Jakub Narayan M.D., (Suspected) Exposure [place], [place] Pharm.D. To COVID-19 (Primary [address]x) [place] [phone] Social History Tobacco Use Types Packs/Day Years [...] or relatives? How often do you attend latter day or More than 4 times per year 11/16/2021 anglican services? Do you belong to any clubs or No 11/16/2021 organizations such as latter day groups, unions, fraternal or athletic groups, or [...] to pay for the very basics like [employer] hard 11/16/2021 food, housing, medical care, [...] place to sleep or slept in a residential (including now)? Education Answer Date Recorded What is the highest level of school you have Some college, n o degree 01/02/2019 completed or the highest degree you have received? Sex Assigned at Date Recorded Female 01/25/2018 11:49 AM CDT documented as of this encounter Progress Notes Nella Mars R.N. - 11/10/2021 10:50 AM CDT Encounter created for infectious disease screening. documented in this encounter Plan of Treatment Upcoming Encounters Date Type Specialty Care Team Description 01/08/2022 Appointment Radiology Julián Edouard M.D. [address] [place] [phone] (Earl dowd) 01/08/2022 Ancillary Procedure Cardiovascular Disease Julián Edouard M.D. [address] [place] [phone] (Earl dowd) 01/08/2022 Comprehensive Visit Thoracic Surgery Tess Raphael M.D. [address] [place] [phone] (Earl dowd) documented as of this encounter Procedures Procedure Name Priority Date/Time Associated Diagnosis Comme nts SARS CORONAVIRUS-2 Routine 11/10/2021 10:51 AM Contact With An d Results for this RNA, V CDT (Suspected) Exposure procedu re are in To COVID-19 the results section. documented in this encounter Results SARS Coronavirus-2 RNA, V Asymptomatic (11/10/2021 10:51 AM CDT) [facility] Method Time Signature SARS-CoV-2 Swab, 11/11/2021 MKTO [...] pe rformed using the Aptima SARS-CoV-2 assay ([employer] on the [employer] tem under emergency use authorization (EUA) by the U.S. Food and Drug Administ [facility]. Fact sheets for this EUA assay can be fo und at the following links: For Healthcare Providers: https://www.fd a.gov/media/458079/download For Patients: https://www.fda.gov/media/ 666987/download Specimen Anatomical Collection Method Collection Time Receive d Time (Source) Location / / Volume Laterality Varies 11/10/2021 10:51 11/10/2021 5:02 (Nasopharynx) AM CDT PM CDT Bret Chapa M.D., Pharm.D. LAB MICROBIOLOGY - [facility] ORDERABLES Performing Organization Address City/State/ZIP Code Phon e Number [facility]- [address] [place] [phone] [place] [address] [place] [address] System [address] documented in this encounter Visit Diagnoses Diagnosis Contact With And (Suspected) Exposure To COVID-19 - Primary documented in this encounter Additional Health Concerns Infection Onset Date Last Indicated Resolved Time COVID19 Pending 11/10/2021 11/10/2021 11/10/2021 10:47 AM CDT COVID19 Pending 11/10/2021 11/10/2021 11/11/2021 10:41 AM CDT Assessment Noted Time PHQ-9 Depression Total Score: 15 04/21/2018 1:00 PM CS T documented as of this encounter Care Teams Afternoon Nanny Relationship Specialty Start Date End Date Elsewhere, Pcp PCP - General Internal Medicine 10/22/19 documented as of this encounter
--- OUTSIDE RECORDS SUMMARY | 2022-01-08 10:38 | XMS_ITS | Encounter Summary ---
:1970 Author Organization [facility] Address [address] [place] [address] Care Team Providers Name Role Phone Elsewhere, Pcp Primary Care Provider Unavailable Reason for Visit Reason Comments Lab Monitoring Delay Encounter Details Date Type Department Care Team Description 06/03/2021 Clinical Communication Division of Justine Weeks onitoring Rheumatology in L, M.S.N., (Delay) [place], [place] R.N. [address] [facility] [address] [facility] [address] [facility] [phone] [place] [address] Social History Tobacco Use Types Packs/Day Years [...] or relatives? How often do you attend anabaptism or More than 4 times per year 11/16/2021 caodaism services? Do you belong to any clubs or No 11/16/2021 organizations such as anabaptism groups, unions, fraternal or athletic groups, or [...] this encounter Miscellaneous Notes Telephone Encounter - Hansa Padilla - 06/03/2021 2:15 PM CST Her grandmother , and she is in [place]. I have sent her a POM with our phone number to call and reschedule. TESTER Telephone Encounter - Justine Weeks M.S.N., R.N. - 06/03/2021 1:11 PM BATH TESTER Patient missed scheduled lab appointment for medication monitoring. Nursing contacted patient via POM and provided laboratory medication monitoring patient education. If needed a lab letter instructing patient of need to complete medication monitoring labs will be sent. Patient will be contacted to reschedule lab appointment. TESTER documented in this encounter Plan of Treatment Upcoming Encounters Date Type Specialty Care Team Description 01/08/2022 Appointment Radiology Julián Edouard M.D. [address] [place] [phone] (Earl dowd) 01/08/2022 Ancillary Procedure Cardiovascular Disease Julián Edouard M.D. [address] [place] [phone] (Earl dowd) 01/08/2022 Comprehensive Visit Thoracic Surgery Tess Raphael M.D. [address] [place] [address] (Wo rk) documented as of this encounter Visit Diagnoses Not on filedocumented in this encounter Additional Health Concerns Assessment Noted Time PHQ-9 Depression Total Score: 15 04/21/2018 1:00 PM CS T documented as of this encounter Care Teams Insurance Agency Owner Relationship Specialty Start Date End Date Elsewhere, Pcp PCP - General Internal Medicine 10/22/19 documented as of this encounter
--- OUTSIDE RECORDS SUMMARY | 2022-01-08 10:38 | XMS_ITS | Encounter Summary ---
:1970 Author Organization [facility] Address [address] [place] [address] Care Team Providers Name Role Phone Elsewhere, Pcp Primary Care Provider Unavailable Reason for Visit Reason Comments Med Refill Encounter Details Date Type Department Care Team Description 05/31/2021 Refill Division of Rheumatology in Smita Munson sa, APRN, Med Refill [place], [place] C.N.P. [address] [facility] [address] [place] [address] [place] [address] [phone] (Wo rk) Social History Tobacco Use Types [...] or relatives? How often do you attend sikh or More than 4 times per year 11/16/2021 jainism services? Do you belong to any clubs or No 11/16/2021 organizations such as sikh groups, unions, fraternal or athletic groups, or [...] place to sleep or slept in a correction (including now)? Education Answer Date Recorded What is the highest level of school you have Some college, n o degree 01/02/2019 completed or the highest degree you have received? Sex Assigned at Date Recorded Female 01/25/2018 11:49 AM CDT documented as of this encounter Miscellaneous Notes Telephone Encounter - Marlyn Page R.N. - 06/01/2021 10:26 AM CST Prescription renewal request for hydroxychloroquine (Plaquenil) received from pharmacy. HISTORY OF PRESENT ILLNESS Last Rheum visit: 03/14/22 with Velma Munson APRN, [facility] Future office visit: ordered, not yet scheduled Last monitoring labs/eye exam: eye exam: outside protocol parameters. 03/19/20 Prescription request matches current plan of care. Prescription request matches a current prescription in the Medication List. Exclusion criteria: None ASSESSMENT/PLAN Prescription request pended for provider review due to missing eye exam. 90 day supply pended. [employer]ING [employer] MAINTENANCE documented in this encounter Plan of Treatment Upcoming Encounters Date Type Specialty Care Team Description 01/08/2022 Appointment Radiology Julián Edouard M.D. [address] [place] [phone] (Earl dowd) 01/08/2022 Ancillary Procedure Cardiovascular Disease Julián Edouard M.D. [address] [place] [address] [phone] (Earl dowd) 01/08/2022 Comprehensive Visit Thoracic Surgery Tess Raphael M.D. [address] [place] [phone] (Wo rk) documented as of this encounter Visit Diagnoses Diagnosis Arthritis Inflammatory (HCC) documented in this encounter Additional Health Concerns Assessment Noted Time PHQ-9 Depression Total Score: 15 04/21/2018 1:00 PM CS T documented as of this encounter Care Teams Artist Manager Relationship Specialty Start Date End Date Elsewhere, Pcp PCP - General Internal Medicine 10/22/19 documented as of this encounter
--- OUTSIDE RECORDS SUMMARY | 2022-01-08 10:38 | XMS_ITS | Encounter Summary ---
:1970 Author Organization [facility] Address [address] [place] [address] Care Team Providers Name Role Phone Elsewhere, Pcp Primary Care Provider Unavailable Encounter Details Date Type Department Care Team Description 07/13/2021 Hospital Encounter Department of Velma Munson Medic ation Therapy Teacher Of The Handicapped Not Anticoagulant; Laboratory Medicine L, ICE CREAM MACHINE OPERATOR, C.N .P. Arthritis Inflammatory (HCC) in [place] [phone] [facility] [phone] [place], [place] (Work) [phone] Social History Tobacco Use Types Packs/Day Years [...] or relatives? How often do you attend religious or More than 4 times per year 11/16/2021 samaritan services? Do you belong to any clubs or No 11/16/2021 organizations such as religious groups, unions, fraternal or athletic groups, or [...] Date acetaminophen (TYLENOL) Take 500 mg by 0 500 mg tablet mouth as needed. ALPRAZOLAM ORAL Take 2 mg by mouth 0 at bedtime as needed for anxiety. aspirin/acetaminophen/caf Take 1 tablet by 0 feine (EXCEDRIN MIGRAINE mouth as needed. ORAL) butalbital-acetaminophen- Take 1 tablet by 0 caff (ESGIC) 50-325-40 mg mouth every 4 per tablet (four) hours as needed. dextroamphetamine-ampheta Take 45 mg by mouth 0 mine (ADDERALL) 30 mg every morning. tablet diclofenac [...] or drink for 15-30 minutes after use. hydrOXYzine (ATARAX) 25 Take 25 mg by mouth 0 mg tablet every 6 (six) hours as needed for itching. modafiniL (PROVIGIL) 100 Take 100 mg by 0 mg tablet mouth daily. pantoprazole (PROTONIX) Take 1 tablet (40 60 tablet 11 11/26 40 mg EC tablet mg total) by mouth 2 (two) times a day. SUMAtriptan (IMITREX Inject under the 0 5 [...] tranexamic acid (LYSTEDA) Take 650 mg by 0 650 mg tablet mouth daily. famotidine (PEPCID) 20 mg Take 1 tablet (20 90 tablet 2 08/20/2021 tablet mg total) by mouth every evening. folic acid 1 mg Take 2 tablets 180 tablet 1 01/20/202108/06 tabletIndications: (2,000 mcg total) Arthritis Inflammatory by mouth daily. (HCC) hydrOXYchloroQUINE TAKE 2 TABLETS ON 135 tablet 0 06/01/2021 08/06/2021 (PLAQUENIL) 200 mg EVEN DAYS, & TAKE 1 tabletIndications: TABLET ON ODD DAYS. Arthritis Inflammatory (HCC) ketorolac (TORADOL) 10 mg Take 1 tablet (10 10 tablet 0 06/202007/21/2021 tablet mg total) by mouth every 6 (six) hours as needed for pain. Max 40 mg/day. Max duration is 5 days. methotrexate 25 mg/mL Inject 1 mL (25 mg 4 mL 0 202108/06/2021 injectionIndications: total) under the Arthritis Inflammatory skin once a week. (HCC) Labs needed for further refills. omeprazole (PriLOSEC) 20 Take 20 mg by 0 11/30/[address] capsule mouth. [id number] Drink 1st portion 1 box(es) 0 10/07/20202021 [id number] of prep at 6 PM the (MOVIPREP) 100-7.5-2.691 evening before. 2nd gram per packet portion must be started 3 hours before and finished 2 hours prior to report time pilocarpine (SALAGEN) 5 Take 1 tablet (5 mg 90 tablet 5 08/06/2021 mg tabletIndications: total) by mouth 3 Xerostomia (three) times a day. sucralfate (CARAFATE) 1 Take 1 tablet (1 g 120 tablet 11 10/3111/16/2021 gram tablet total) by mouth 4 (four) times a day. Take 1 hour before meals and at bedtime documented as of this encounter Plan of Treatment Upcoming Encounters Date Type Specialty Care Team Description 01/08/2022 Appointment Radiology Julián Edouard M.D. [address] [place] [phone] (Wo rk) 01/08/2022 Ancillary Procedure Cardiovascular Disease Julián Edouard M.D. [address] [place] [phone] (Wo rk) 01/08/2022 Comprehensive Visit Thoracic Surgery Tess Raphael M.D. [address] [place] [phone] (Wo rk) documented as of this encounter Procedures Procedure Name Priority Date/Time Associated Diagnosis Comme nts SEDIMENTATION RATE, B Routine 07/13/2021 1:39 Arthritis Res ults for this PM CDT Inflammatory (HCC) procedure are in the results section. CBC WITH DIFFERENTIAL, B Routine 07/13/2021 1:39 Medication Th erapy Results for this PM CDT Teacher Of The Handicapped Not procedure are in Anticoagulant the results section. C-REACTIVE PROTEIN Routine 07/13/2021 1:39 Arthritis Result s for this (CRP), S/P PM CDT Inflammatory (HCC) procedure are in the results section. ASPARTATE Routine 07/13/2021 1:39 Medication Therapy Result s for this AMINOTRANSFERASE (AST), PM CDT [facility] Of The Handicapped Not pro cedure are in S/P Anticoagulant the results section. CREATININE WITH EGFR, Routine 07/13/2021 1:39 Medication Thera py Results for this S/P PM CDT [facility] Not procedure are in Anticoagulant the results section. documented in this encounter Results CRP (C-Reactive Protein) (07/13/2021 1:39 PM CDT) P athologist Signature C-Reactive <3.0 <=8.0 mg/L 07/13/2021 CNFL Protein (CRP), 2:10 PM CDT P Specimen Anatomical Collection Method Collection Time Receive d Time (Source) Location / / Volume Laterality Blood (Blood, 07/13/2021 1:39 PM 07/14/19 1:40 Venous) CDT PM CDT Velma Munson APRN, C.N.P. LAB BLOOD ADD-ON Performing Organization Address City/[facility] Code Phon e Number [facility]- [address] [place] [address] [place] [address] [place] [address] System in [place] [address] [address] Sedimentation Rate (07/13/2021 1:39 PM CDT) Analysis Performed At Patho logist Time Signature Sedimentation 11 0 - 29 07/13/2021 RDWG Rate, B mm/1 h 8:38 PM CDT Specimen Anatomical Collection Method Collection Time Receive d Time (Source) Location / / Volume Laterality Blood (Blood, 07/13/2021 1:39 PM 07/14/19 8:04 Venous) CDT PM CDT Velma Munson APRN, C.N.P. LAB BLOOD ADD-ON Performing Organization Address City/[facility] Phon e Number [facility]- [address] [place], [place] [address] [place] [address] System in [place] [address] [place] [address] Creatinine with Estimated GFR (07/13/2021 1:39 PM CDT) P athologist Signature Creatinine 0.80 0.59 - 07/13/2021 CNFL 1.04 mg/dL 2:10 PM CDT eGFR-Black/Afric >90 >=60 07/13/2021 CNFL an Tajik mL/min/BSA 2:10 PM CDT Comment: ----ADDITIONAL INFORMATION---- Estimated GFR calculated using the 2009 CKD_EPI creatinine equation. eGFR Non-Black/ 87 >=60 mL/min/BSA 2:10 PM CDT CNFL Comment: ----ADDITIONAL INFORMATION---- Estimated GFR calculated using the 2009 CKD_EPI creatinine equation. Specimen Anatomical Collection Method Collection Time Receive d Time (Source) Location / / Volume Laterality Blood (Blood, 07/13/2021 1:39 PM 07/14/19 1:40 Venous) CDT PM CDT Jorge Polo APRNN.P. LAB BLOOD ADD-ON Performing Organization Address [facility] Phon e Number [address] [address] [place] [address] System in [address] AST (Aspartate Aminotransferase) (07/13/2021 1:39 PM CDT) [facility] [employer] Method Time Signature Aspartate 22 8 - 43 07/13/2021 CNFL Aminotransferase U/L 2:10 PM CDT (AST), P Specimen Anatomical Collection Method Collection Time Receive d Time (Source) Location / / Volume Laterality Blood (Blood, 07/13/2021 1:39 PM 07/14/19 1:40 Venous) CDT PM CDT Velma Munson APRN, Karlene.N.P. LAB BLOOD ADD-ON Performing Organization Address City/[facility] Phon e Number [address] [address] [place] [address] (ABNORMAL) CBC with Differential, Blood (07/13/2021 1:39 PM CDT) [facility] [employer] Method Time Signature Hemoglobin 14.1 11.6 - 07/13/2021 CNFL 15.0 g/dL 2:04 PM CDT Hematocrit 43.4 35.5 - 07/13/2021 CNFL 44.9 % 2:04 PM CDT Erythrocytes 5.22 (H) 3.92 - 07/13/2021 CNFL 5.13 2:04 PM CDT x10(12)/L MCV 83.1 78.2 - 07/13/2021 CNFL 97.9 fL 2:04 PM CDT RBC Distrib Width 14.6 12.2 - 07/13/2021 CNFL 16.1 % 2:04 PM CDT Platelet Count 288 157 - 371 07/13/2021 CNFL x10(9)/L 2:04 PM CDT Leukocytes 8.3 3.4 - 9.6 07/13/2021 CNFL x10(9)/L 2:04 PM CDT Neutrophils 5.96 1.56 - 07/13/2021 CNFL 6.45 2:04 PM CDT x10(9)/L Lymphocytes 1.84 0.95 - 07/13/2021 CNFL 3.07 2:04 PM CDT x10(9)/L Monocytes 0.42 0.26 - 07/13/2021 CNFL 0.81 2:04 PM CDT x10(9)/L Eosinophils 0.02 (L) 0.03 - 07/13/2021 CNFL 0.48 2:04 PM CDT x10(9)/L Basophils 0.03 0.01 - 07/13/2021 CNFL 0.08 2:04 PM CDT x10(9)/L Specimen Anatomical Collection Method Collection Time Receive d Time (Source) Location / / Volume Laterality Blood (Blood, 07/13/2021 1:39 PM 07/14/19 22 1:40 Venous) CDT PM CDT Velma Munson APRN C.N.P. LAB BLOOD ADD-ON Performing Organization Address [facility] Phon e Number [phone] [place] [address] [place] [address] System in [address] documented in this encounter Visit Diagnoses Diagnosis Medication Therapy Teacher Of The Handicapped Not Anticoa gulant Arthritis Inflammatory (HCC) documented in this encounter Additional Health Concerns Assessment Noted Time PHQ-9 Depression Total Score: 15 04/21/2018 1:00 PM CS T documented as of this encounter Care Teams Shipping And Receiving Coordinator Relationship Specialty Start Date End Date Elsewhere, Pcp PCP - General Internal Medicine 10/22/19 documented as of this encounter
--- OUTSIDE RECORDS SUMMARY | 2022-01-08 10:38 | XMS_ITS | Encounter Summary ---
:1970 Author Organization [facility] Address [address] [place] [address] Care Team Providers Name Role Phone Elsewhere, Pcp Primary Care Provider Unavailable Encounter Details Date Type Department Care Team Description 10/15/2021 Clinical Communication Division of Nano Gomes Rheumatology in , R.N. [place], [place] [address] [facility] [address] [place] [phone] Social History Tobacco Use Types Packs/Day Years [...] or relatives? How often do you attend holiness or More than 4 times per year 11/16/2021 buddhism services? Do you belong to any clubs or No 11/16/2021 organizations such as holiness groups, unions, fraternal or athletic groups, or [...] place to sleep or slept in a fpc (including now)? Education Answer Date Recorded What is the highest level of school you have Some college, n o degree 01/02/2019 completed or the highest degree you have received? Sex Assigned at Date Recorded Female 01/25/2018 11:49 AM CDT documented as of this encounter Miscellaneous Notes Telephone Encounter - Nano Gomes R.N. - 10/15/2021 4:21 PM CDT Patient missed second scheduled lab appointment for medication monitoring. Laboratory medication monitoring is vital for patient safety while taking Rheumatology specific medications. The Division of Rheumatology will not be able to refill the patient's prescriptions until the lab results have been received and reviewed by your health care provider in the Division of Rheumatology. A second lab letter reminding patient of need to complete medication monitoring labs will be sent. Provider will be notified and patient will be a HARD STOP for further refills until required monitoring is completed. Patient has been removed from the Nursing Med Monitoring Report. documented in this encounter Plan of Treatment Upcoming Encounters Date Type Specialty Care Team Description 01/08/2022 Appointment Radiology Julián Edouard M.D. [address] [place] [phone] (Earl dowd) 01/08/2022 Ancillary Procedure Cardiovascular Disease Julián Edouard M.D. [address] [place] [phone] (Earl dowd) 01/08/2022 Comprehensive Visit Thoracic Surgery Tess Raphael M.D. [address] [place] [phone] (Earl dowd) documented as of this encounter Visit Diagnoses Not on filedocumented in this encounter Additional Health Concerns Assessment Noted Time PHQ-9 Depression Total Score: 15 04/21/2018 1:00 PM CS T documented as of this encounter Care Teams Shoe Lacer Relationship Specialty Start Date End Date Elsewhere, Pcp PCP - General Internal Medicine 10/22/19 documented as of this encounter
--- OUTSIDE RECORDS SUMMARY | 2022-01-08 10:38 | XMS_ITS | Encounter Summary ---
:1970 Author Organization [facility] Address [address] [place] [address] Care Team Providers Name Role Phone Elsewhere, Pcp Primary Care Provider Unavailable Reason for Visit Reason Comments Lab Monitoring Delay Encounter Details Date Type Department Care Team Description 06/17/2021 Clinical Communication Division of Saeed Page onitoring Rheumatology in Marlyn Schwartz R.N. (Delay) [place], [place] [address] [facility] [address] [place] [phone] Social History Tobacco Use Types Packs/Day Years [...] or relatives? How often do you attend islam or More than 4 times per year 11/16/2021 hoahaoism services? Do you belong to any clubs or No 11/16/2021 organizations such as islam groups, unions, fraternal or athletic groups, or [...] place to sleep or slept in a detention (including now)? Education Answer Date Recorded What is the highest level of school you have Some college, n o degree 01/02/2019 completed or the highest degree you have received? Sex Assigned at Date Recorded Female 01/25/2018 11:49 AM CDT documented as of this encounter Miscellaneous Notes Telephone Encounter - Violetta Mendieta - 06/17/2021 3:51 PM CST Letter mailed to patient. IGHTENING MACHINE FEEDER Telephone Encounter - Marlyn Page R.N. - 06/17/2021 8:28 AM CST Pt has not read her 3 portal messages from 06/03/21. So has not complete labs. Will ask [facility] to mail ptthe 3 unread portals. IGHTENING MACHINE FEEDER documented in this encounter Plan of Treatment Upcoming Encounters Date Type Specialty Care Team Description 01/08/2022 Appointment Radiology Julián Edouard M.D. [address] [place] [phone] (Earl dowd) 01/08/2022 Ancillary Procedure Cardiovascular Disease Julián Edouard M.D. [address] [place] [phone] (Earl dowd) 01/08/2022 Comprehensive Visit Thoracic Surgery Tess Raphael M.D. [address] [place] [phone] (Earl dowd) documented as of this encounter Visit Diagnoses Not on filedocumented in this encounter Additional Health Concerns Assessment Noted Time PHQ-9 Depression Total Score: 15 04/21/2018 1:00 PM CS T documented as of this encounter Care Teams Burring Machine Operator Relationship Specialty Start Date End Date Elsewhere, Pcp PCP - General Internal Medicine 10/22/19 documented as of this encounter
--- OUTSIDE RECORDS SUMMARY | 2022-01-08 10:38 | XMS_ITS | Encounter Summary ---
:1970 Author Organization [facility] Address [address] [place] [address] Care Team Providers Name Role Phone Elsewhere, Pcp Primary Care Provider Unavailable Encounter Details Date Type Department Care Team Description 07/15/2021 Clinical Communication Division of Velma Munson Rheumatology in , GLUE COOK, C.N.P. [place], [place] [address] [facility] [address] [place] [phone] [phone] Social History Tobacco Use Types Packs/Day Years [...] or relatives? How often do you attend episcopalian or More than 4 times per year 11/16/2021 buddhism services? Do you belong to any clubs or No 11/16/2021 organizations such as episcopalian groups, unions, fraternal or athletic groups, or [...] place to sleep or slept in a care home (including now)? Education Answer Date Recorded [...] Appointment Radiology Julián Edouard M.D. [address] [place] [address] (Wo rk) 01/08/2022 Ancillary Procedure Cardiovascular Disease Julián Edouard M.D. [address] [place] [phone] (Wo rk) 01/08/2022 Comprehensive Visit Thoracic Surgery Tess Raphael M.D. [address] [place] [phone] (Wo rk) documented as of this encounter Visit Diagnoses Not on filedocumented in this encounter Additional Health Concerns Assessment Noted Time PHQ-9 Depression Total Score: 15 04/21/2018 1:00 PM CS T documented as of this encounter Care Teams Roll Forming Machine Set Up Operator Relationship Specialty Start Date End Date Elsewhere, Pcp PCP - General Internal Medicine 10/22/19 documented as of this encounter
--- OUTSIDE RECORDS SUMMARY | 2022-01-08 10:38 | XMS_ITS | Encounter Summary ---
:1970 Author Organization [facility] Address [address] [place] [address] Care Team Providers Name Role Phone Elsewhere, Pcp Primary Care Provider Unavailable Reason for Referral Outpatient (Routine) - Closed Specialty Diagnoses / Procedures Referred By Contact Refer red To Contact Orthopedic Surgery Joseline Millan APRN, [facility] C.N.P., D.N.P. [address] [place] [address] Referral ID Status Reason Start Date Expiration Date Visits Requ ested Visits Authorized [id number] Closed 07/21/2021 07/21/2022 1 1 Reason for Visit Reason Comments Fracture 2nd digit, injured closing g arage door on tuesday Outpatient (Routine) - Closed Specialty Diagnoses / Procedures Referred By Contact Refer joslyn To Contact Emergency Medicine Diagnoses Fracture Index Finger Distal Phalanx Nondisplaced Closed Initial Left Haritha Guillory [facility] LONG, C.N.P., D.N.P. [address] [place] [phone] Referral ID Status Reason Start Date Expiration Date Visits Requ ested Visits Authorized [id number] Closed 07/18/2021 07/18/2022 1 1 Encounter Details Date Type Department Care Team Description 07/21/2021 Office Visit Department of Joseline Millan, Fracture Index Finger Orthopedic Surgery in [place] ALVES, Dista l Phalanx [place] Nondisplaced Closed [place] [address] [place] [address] Initial Left [id number] [place] [phone] [phone] Social History Tobacco Use Types Packs/Day Years [...] or relatives? How often do you attend muslim or More than 4 times per year 11/16/2021 shinto services? Do you belong to any clubs or No 11/16/2021 organizations such as muslim groups, unions, fraternal or athletic groups, or [...] place to sleep or slept in a fdc (including now)? Education Answer Date Recorded What is the highest level of school you have Some college, n o degree 01/02/2019 completed or the highest degree you have received? Sex Assigned at Date Recorded Female 01/25/2018 11:49 AM CDT documented as of this encounter Progress Notes Joseline Millan, LONG, C.N.P., D.N.P. - 07/21/2021 10:30 AM CDT SUBJECTIVE CHIEF COMPLAINT / REASON FOR VISIT Waleska Diaz is a 50 y.o. female who presents for evaluation of Fracture of the Left Hand (2nd digit, injured closing garage door on tuesday). HISTORY OF PRESENT ILLNESS Waleska is a pleasant 50 y.o. female who presents to the clinic today for follow-up evaluation of a left 2nd digit injury. She reports an injury to her finger after getting it pinched in a closing garage door 3 days ago. She was seen in the emergency department and diagnosed with a nondisplaced fracture of the index finger, distal phalangeal tuft. At that time, she did have a subungual hematoma which was decompressed in the ER. Since that time, her pain has been tolerable with jdce-dpu-meougiu remedies and occasional oxycodone. She was placed in a splint for protection. OBJECTIVE PHYSICAL EXAMINATION General: Patient is in no distress. Capable of full communication without difficulty. Patient is polite and cooperative. Extremities: Left 2nd digit is quite swollen with a moderate amount of bruising. There is a small hematoma noted under the nail. Neuro: Alert and oriented x3. DIAGNOSTICS LEFT HAND X-RAY IMPRESSION: Nondisplaced fracture of the index finger distal phalangeal tuft. No intra- articular extension. Osseous structures are otherwise intact. Alignment is anatomic. ASSESSMENT / PLAN #1 Fracture Index Finger Distal Phalanx Nondisplaced Closed Initial Left Waleska is a pleasant 50 y.o. female who presents to the clinic today for follow-up evaluation of a left 2nd digit injury. This case was reviewed with Dr. Garcia. At this point in time, she was advised to continue to wear the splint for protection over the next weeks. She was reassured that the fracture will heal on its own. Manage pain with vftq-yek-xcxqnst analgesics, elevation, and activity modification. We will plan to see her back in another month to ensure healing, or sooner with concerns. She is in agreement with this plan, all questions were answered. documented in this encounter Plan of Treatment Upcoming Encounters Date Type Specialty Care Team Description 01/08/2022 Appointment Radiology Julián Edouard M.D. [address] [place] [address] (Wo rk) 01/08/2022 Ancillary Procedure Cardiovascular Disease Julián Edouard M.D. [address] [place] [address] (Wo rk) 01/08/2022 Comprehensive Visit Thoracic Surgery Tess Raphael M.D. 200 [place] [phone] (Wo rk) Scheduled Referrals Name Type Priority Associated Order Schedule Diagnoses Orthopedic Surgery Outpatient Referral Routine Ex pected: office visit 08/18/2021, (clinic) Expires: 10/21/2022 documented as of this encounter Visit Diagnoses Diagnosis Fracture Index Finger Distal Phalanx Non displaced Closed Initial Left documented in this encounter Additional Health Concerns Assessment Noted Time PHQ-9 Depression Total Score: 15 04/21/2018 1:00 PM CS T documented as of this encounter Care Teams Evaluation Assistant Relationship Specialty Start Date End Date Elsewhere, Pcp PCP - General Internal Medicine 10/22/19 documented as of this encounter
--- OUTSIDE RECORDS SUMMARY | 2022-01-08 10:38 | XMS_ITS | Encounter Summary ---
:1970 Author Organization [facility] Address [address] [place] [address] Care Team Providers Name Role Phone Elsewhere, Pcp Primary Care Provider Unavailable Reason for Referral Outpatient (Routine) - Closed Specialty Diagnoses / Procedures Referred By Contact Refer red To Contact Diagnoses Gastro-Esophageal Reflux Disease With Esophagitis Without Bleeding Julián Edouard M.D. [facility] Procedures EGD (EsophagealGastroDuodenoscopy) [address] [place], [place] [address] Referral ID Status Reason Start Date Expiration Date Visits Requ ested Visits Authorized [id number] Closed 11/03/2021 11/03/2022 1 1 Reason for Visit Outpatient (Routine) - Closed Specialty Diagnoses / Procedures Referred By Contact Refer red To Contact Diagnoses Gastro-Esophageal Reflux Disease With Esophagitis Without Bleeding Julián Edouard M.D. [facility] Procedures EGD (EsophagealGastroDuodenoscopy) [address] [place] [address] Referral ID Status Reason Start Date Expiration Date Visits Requ ested Visits Authorized [id number] Closed 11/03/2021 11/03/2022 1 1 Encounter Details Date Type Department Care Team Description 11/13/2021 Hospital Encounter Division of [place], Gastro-Es ophageal Gastroenterology in Julián Narayan M.D. Reflux Disease With [place], [place] [address] Esophagitis Without [address] [facility] Bleeding [place], [place] [address] [facility] [phone] [place] [address] Social History Tobacco Use Types Packs/Day Years [...] or relatives? How often do you attend mu-ism or More than 4 times per year 11/16/2021 scientologist services? Do you belong to any clubs or No 11/16/2021 organizations such as mu-ism groups, unions, fraternal or athletic groups, or [...] AM CDT documented as of this encounter Last Filed Vital Signs Vital Sign Reading [...] Mass Index 29.23 11/13/2021 12:28 PM CDT documented in this encounter Medications at Time of Discharge [...] sodium Apply 2 g topically 100 g (Voltaren) 1 % gel 4 (four) times a day. Apply to hands. diphenhydramine-lidocaine Take 5-10 mL by 480 mL 08/12 2 %-antacid (mw) mouth 4 (four) times a day after meals and bedtime. Hold in mouth for 1 minute.Do not eat or drink for 15-30 minutes after use. famotidine (PEPCID) 40 mg Take 1 tablet (40 180 tablet 08/2021 tablet mg total) by mouth 2 (two) times a day. folic acid 1 mg Take 2 tablets 180 tablet 3 08/06/2021 tabletIndications: (2,000 mcg total) Arthritis Inflammatory by mouth daily. (HCC) hydrOXYchloroQUINE Take 1-2 tablets 135 tablet 3 08/06/2021 (PLAQUENIL) 200 mg (200-400 mg total) tabletIndications: by mouth daily. Arthritis Inflammatory Take 1 tab on odd (HCC) days and 2 tabs on even days hydrOXYzine (ATARAX) 25 Take 25 mg by mouth 0 mg tablet every 6 (six) hours as needed for itching. methotrexate 25 mg/mL Inject 1 mL (25 mg 12 mL 1 2021 injectionIndications: total) under the Arthritis Inflammatory skin once a week. ([facility]) Labs needed for further refills. modafiniL (PROVIGIL) 100 Take 100 mg by 0 mg tablet mouth daily. pantoprazole (PROTONIX) Take 1 tablet (40 60 tablet 11 11/26 40 mg EC tablet mg total) by mouth 2 (two) times a day. pilocarpine (SALAGEN) 5 Take 1 tablet (5 mg 90 tablet 11 10/2021 mg tabletIndications: total) by mouth 3 Xerostomia (three) times a day. RABEprazole (ACIPHEX) 20 Take 1 tablet (20 180 tablet 08/2021 mg EC tablet mg total) by mouth [...] mg Take 1 tablet (20 90 tablet 3 11/30/2021 tablet mg total) by mouth every evening. omeprazole (PriLOSEC) 20 Take 20 mg by 0 11/30/[address] capsule mouth. sucralfate (CARAFATE) 1 Take 1 tablet (1 g 120 tablet 10/3111/16/2021 gram tablet total) by mouth 4 (four) times a day. Take 1 hour before meals and at bedtime documented as of this encounter Miscellaneous Notes Result Encounter Note - Julián Edouard M.D. - 11/17/2021 3:18 PM CDT Given the finding of grade B esophagitis despite medication, we will proceed with the impedance and manometry and then possibly meet with surgery to discuss fundoplication options given the history of lap band. documented in this encounter Plan of Treatment Upcoming Encounters Date Type Specialty Care Team Description 01/08/2022 Appointment Radiology Julián Edouard M.D. [address] [place] [address] (Wo rk) 01/08/2022 Ancillary Procedure Cardiovascular Disease Julián Edouard M.D. [address] [place] [address] (Wo rk) 01/08/2022 Comprehensive Visit Thoracic Surgery Tess Raphael M.D. [address] [place] [phone] (Wo rk) documented as of this encounter Procedures Procedure Name Priority Date/Time Associated Diagnosis Comme nts UPPER GI ENDOSCOPY Routine 11/13/2021 1:30 PM Gastro-Esophagea l Results for this CDT Reflux Disease With procedur e are in Esophagitis Without the resu lts Bleeding section. EGD Routine 11/13/2021 1:30 PM Gastro-Esophageal (ESOPHAGEALGASTRODU CDT Reflux Disease With ODENOSCOPY) Esophagitis Without Bleeding documented in this encounter Results Upper GI Endoscopy (11/13/2021 1:30 PM CDT) [...] duodenum. ? - No specimens collected. Narrative [employer] - 11/13/2021 1:54 PM CDT Gonda 9 GI GI Patient Name: Waleska Diaz Date of : 1970 Age: 50 Gender: [...] e Number [employer] NA documented in this encounter Visit Diagnoses Diagnosis Gastro-Esophageal Reflux Disease With Es ophagitis Without Bleeding documented in this encounter Additional Health Concerns Assessment Noted Time PHQ-9 Depression Total Score: 15 04/21/2018 1:00 PM CS T documented as of this encounter Care Teams Extension Course Counselor Relationship Specialty Start Date End Date Elsewhere, Pcp PCP - General Internal Medicine 10/22/19 documented as of this encounter
--- OUTSIDE RECORDS SUMMARY | 2022-01-08 10:38 | XMS_ITS | Encounter Summary ---
:1970 Author Organization [facility] Address [address] [place] [address] Care Team Providers Name Role Phone Elsewhere, Pcp Primary Care Provider Unavailable Reason for Visit Reason Comments Med Refill Encounter Details Date Type Department Care Team Description 05/27/2021 Refill Division of Rheumatology in Smita Munson sa, APRN, Med Refill [place], [place] C.N.P. [address] [facility] [address] [place] [address] [address] [place] [address] [phone] (Wo rk) Social History Tobacco Use Types [...] or relatives? How often do you attend voodoo or More than 4 times per year 11/16/2021 oriental orthodox services? Do you belong to any clubs or No 11/16/2021 organizations such as voodoo groups, unions, fraternal or athletic groups, or [...] this encounter Miscellaneous Notes Telephone Encounter - Sawyer Nicholson R.N. - 06/03/2021 1:15 PM CST Patient has not had labs since 01/2021, has already been given a 30-day supply due to this. Sent POMthat patient needs to have labs prior to any refills. Refused Methotrexate with note sent to pharmacy that patient will need labs. SUPERVISOR Telephone Encounter - Magnolia Morgan R.N. - 06/02/2021 11:03 AM CST Called patient to so see how she is feeling after COVID infection. Also, to discuss about getting her labs rescheduled for her Mtx refills and how much Mtx she has left. Unable to reach patient . Left a message. Will postpone to tomorrow 06-03-21. SUPERVISOR documented in this encounter Plan of Treatment Upcoming Encounters Date Type Specialty Care Team Description 01/08/2022 Appointment Radiology Julián Edouard M.D. 200 [place] [address] (Wo rk) 01/08/2022 Ancillary Procedure Cardiovascular Disease Julián Edouard M.D. [address] [place] [phone] (Wo rk) 01/08/2022 Comprehensive Visit Thoracic Surgery Tess Raphael M.D. [address] [place] [address] (Wo rk) documented as of this encounter Visit Diagnoses Diagnosis Arthritis Inflammatory (HCC) documented in this encounter Additional Health Concerns Assessment Noted Time PHQ-9 Depression Total Score: 15 04/21/2018 1:00 PM CS T documented as of this encounter Care Teams Hide And Skin Processing Worker Relationship Specialty Start Date End Date Elsewhere, Pcp PCP - General Internal Medicine 10/22/19 documented as of this encounter
--- OUTSIDE RECORDS SUMMARY | 2022-01-08 10:38 | XMS_ITS | Encounter Summary ---
:1970 Author Organization [facility] Address [address] [place] [address] Care Team Providers Name Role Phone Elsewhere, Pcp Primary Care Provider Unavailable Reason for Referral Medication Prior Authorization - Closed Specialty Diagnoses / Procedures Referred By Contact Refer red To Contact Julián Edouard M .D. 200 [place] [address] Referral ID Status Reason Start Date Expiration Date Visits Requ ested Visits Authorized [id number] Closed 1 1 Medication Prior Authorization - Closed Specialty Diagnoses / Procedures Referred By Contact Refer red To Contact Julián Edouard M .D. [address] [place] [address] Referral ID Status Reason Start Date Expiration Date Visits Requ ested Visits Authorized [id number] Closed 1 1 Outpatient (Routine) - Closed Specialty Diagnoses / Procedures Referred By Contact Refer joslyn To Contact Diagnoses Gastro-Esophageal Reflux Disease With Esophagitis Without Bleeding Julián Edouard M.D. [facility] Procedures EGD (EsophagealGastroDuodenoscopy) [address] [place] [phone] Referral ID Status Reason Start Date Expiration Date Visits Requ ested Visits Authorized [id number] Closed 11/03/2021 11/03/2022 1 1 Reason for Visit Appointment Request (Routine) - Closed Specialty Diagnoses / Referred By Contact Referred To Procedures Contact Gastroenterology and Hepatology Referral ID Status Reason Start Date Expiration Date Visits Requ ested Visits Authorized [id number] Closed 09/08/2021 09/08/2022 1 1 Encounter Details Date Type Department Care Team Description 11/03/2021 Office Visit Division of [facility], Gastro-Esophage al Reflux Disease With Esophagitis With Bleeding (Primary Dx); Gastroenterology in Julián Narayan M.D. Gastro-Esophageal Reflux Disease With Es ophagitis Without Bleeding [place], [place] [address] [place] [address] [phone] Social History Tobacco Use Types Packs/Day Years [...] or relatives? How often do you attend temple or More than 4 times per year 11/16/2021 faith services? Do you belong to any clubs or No 11/16/2021 organizations such as temple groups, unions, fraternal or athletic groups, or [...] AM CDT documented as of this encounter Consult Notes Julián Edouard M.D. - 11/03/2021 11:20 AM CDT SUBJECTIVE HISTORY OF PRESENT ILLNESS Ms. Diaz returns because she is having recurring problems with gastroesophageal reflux. She had been doing better for a time and then she got COVID and since that time she has had more problems with substernal burning and throat soreness. She continues to take pantoprazole 40 mg twice a day, famoti dine 20 mg at bedtime, and Carafate 4 times a day. She has the head of her bed elevated, she has notgained any weight, and still she is having daily symptoms. ASSESSMENT / PLAN #1 GERD At this point we need to relook at her esophagus to see because she had grade C esophagitis before and she is still on methotrexate. Pending that endoscopy, I have asked that she try the famotidine 40 mg twice a day and I am giving her rabeprazole instead of the pantoprazole to see if that helps because of the different metabolic pathway. I will contact her by phone when the result is available. I talked about the possibility of fundoplication. Her current BMI is about 30 and she had had a previous lap band, which could potentially make the surgery a bit more difficult, but will see what her esophagus looks like and take it from there. She is in agreement with that plan. Julián Edouard M.D. CT CT Job ID: [id number] documented in this encounter Plan of Treatment Upcoming Encounters Date Type Specialty Care Team Description 01/08/2022 Appointment Radiology Julián Edouard M.D. [address] [place] [address] (Wo rk) 01/08/2022 Ancillary Procedure Cardiovascular Disease Julián Edouard M.D. [address] [place] [phone] (Wo rk) 01/08/2022 Comprehensive Visit Thoracic Surgery Tess Raphael M.D. [address] [place] [phone] (Wo rk) documented as of this encounter Visit Diagnoses Diagnosis Gastro-Esophageal Reflux Disease With Es ophagitis With Bleeding - Primary Gastro-Esophageal Reflux Disease With Es ophagitis Without Bleeding documented in this encounter Additional Health Concerns Assessment Noted Time PHQ-9 Depression Total Score: 15 04/21/2018 1:00 PM CS T documented as of this encounter Care Teams Authorization Representative Relationship Specialty Start Date End Date Elsewhere, Pcp PCP - General Internal Medicine 10/22/19 documented as of this encounter
--- OUTSIDE RECORDS SUMMARY | 2022-01-08 10:38 | XMS_ITS | Encounter Summary ---
:1970 Author Organization [facility] Address [address] [place] [address] Care Team Providers Name Role Phone Elsewhere, Pcp Primary Care Provider Unavailable Reason for Referral Outpatient (Routine) - Closed Specialty Diagnoses / Procedures Referred By Contact Refer red To Contact Rheumatology Velma Munson APRN, [place] [facility] C.N.P. [address] [place] [address] Referral ID Status Reason Start Date Expiration Date Visits Requ ested Visits Authorized [id number] Closed 08/06/2021 08/06/2022 1 1 Reason for Visit Outpatient (Routine) - Closed Specialty Diagnoses / Procedures Referred By Contact Refer red To Contact Rheumatology Velma Munson APRN [facility] C.N.P. [address] [place], [place] [phone] Referral ID Status Reason Start Date Expiration Date Visits Requ ested Visits Authorized [id number] Closed 03/04/2021 03/04/2022 1 1 Encounter Details Date Type Department Care Team Description 08/06/2021 Office Visit Division of Velma Munson Arthritis In flammatory (HCC) (Primary Dx); Rheumatology césar Schwartz APRN, C.N.P. High Risk Medication; [place], [place] [address] [facility] [address] [place] [address] [phone] Social History Tobacco Use Types Packs/Day Years [...] More than 4 times per year 11/16/2021 christianity services? Do you belong to any clubs [...] place to sleep or slept in a jail (including now)? Education Answer Date Recorded What is the highest level of school you have Some college, n o degree 01/02/2019 completed or the highest degree you have received? Sex Assigned at Date Recorded Female 01/25/2018 11:49 AM CDT documented as of this encounter Last Filed Vital Signs Vital Sign Reading Time Taken Comments Blood Pressure 137/91 08/06/2021 7:55 AM CDT Pulse 105 08/06/2021 7:55 AM CDT Temperature - - Respiratory Rate - - Oxygen Saturation - - Inhaled Oxygen Concentration - - Weight 74.3 kg (163 lb 12.8 oz) 08/06/2021 7:55 AM CDT Height - - Body Mass Index 29.65 03/04/2021 10:40 AM CDT documented in this encounter Progress Notes Velma Munson, LONG, CLennoxNLennoxP. 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 Shefractured her left index finger on July 18, 2021 and is slowly healing. She tested COVID in May. She has not been on Methotrexate May due to having COVID, then pneumonia, then shingles. She was very emotional today as she lost her grandmother in May and continues to cope with this. She states since she has not been on methotrexate she noticed increased hair loss, brain fog, fatigue, GI symptoms, pain in her fingers and heels. She has also been battling with migraines. She continues haveRaynaud's in her hands and feet with no ulcerations. She continues take methotrexate 25 mg SQ once weekly (on HOLD), folic acid 2 mg daily (on HOLD), and Plaquenil 200 mg on odd days and 400 mg on evendays. Morning stiffness lasts 20 minutes, but the low back lasts all day. She denies any recent hospitalizations. She denies any adverse side effects to Plaquenil or methotrexate. Rheumatoid Arthritis RF +: No CCP +: No AM stiffness: 20 minutes Current Symptoms: diarrhea (IBS), dry eyes, dry mouth, fatigue (very bad), fever, Raynaud's syndrome(no digital ulcers), nausea, vomiting, abdominal pain (umbicial pain), chills, night sweats (most nights) and heartburn (maybe just started a antiacid) Current Symptoms: no rash (itching on the arms and face), no weight loss, no excessive bruising, no cough, no chest pain, no edema, no anorexia, no oral ulcers, no eye inflammation and no dyspnea Previous Reports Reviewed:lab reports and office notes The following portions of the patient's history were reviewed and updated as appropriate: family history, medical history, social history, surgical history and problem list. REVIEW OF SYSTEMS Pertinent positives and negatives as documented in the above history of present illness. Constitutional: Positive for chills, fatigue (very bad), fever, loss of appetite and night sweats (most nights). Negative for weight gain of more than 10 pounds and weight loss. Skin: Positive for change in mole or skin spot. Negative for skin rash (itching on the arms and face) and breast lump. Eyes: Positive for visual problems (worsening). ENT: Positive for difficulty hearing and sinus congestion. Respiratory: Negative for cough. Cardiovascular: Positive for swelling in the legs or feet. Negative for chest pain, pressure or tightness and pain in the calf muscles when walking. Gastrointestinal: Positive for abdominal (belly) pain or cramping (umbicial pain), constipation (IBS), diarrhea (IBS), heartburn (maybe just started a antiacid), nausea and vomiting. Negative for anorexia. Musculoskeletal: Positive for arthralgias (hands, wrists, right hip), back pain (low back), pain or stiffness in the joints (hands, wrists, right hip), joint swelling (hands and feet) and muscle pain/stiffness (Knees and hands). Neurological: Positive for seizures (stable), numbness or shooting pain in hands, arms, legs, or feet, excessive daytime sleepiness, headaches (right temporal injury- but more manageable ) and weaknessin arms or legs. Negative for light-headedness. Psychiatric/Behavioral: Positive for excessive daytime sleepiness/tiredness, snores loudly, little interest or pleasure in doing things over past two weeks and feeling nervous, anxious, or on edge in past two weeks. The following systems were negative: Respiratory, , Hematologic OBJECTIVE PHYSICAL EXAM Physical Exam General: Alert, oriented, appropriate affect, no apparent distress. Skin: No rheumatologic rashes or ulcers noted. Left 2nd finger nail black. Eyes: Clear conjunctivae and lids. Lymph: No [...] DIP and right 5th DIP hypertrophy noted. Bilateral plantar fasciitis. Lab: CBC with differential: RBC 5.22. Creatinine, GFR, and AST all within normal limits. CRP is <3.0. ESR is normal. 05/27/2020 07/17/2020 03/04/2021 08/06/2021 Tender joint count (0-28) 0 1 2 0 Swollen joint count (0-28) 0 0 0 0 Patient global assessment (0-100) 12 12 60 4 Night Nurse global assessment (0-100) 10 20 30 20 ESR (mm/h) 10 13 17 -- CRP (mg/L) 3.3 5 4.8 -- Disease Activity Score 28 using ESR ([id number]) 1.78 2.52 3.62 -- Disease Activity Score 28 using CRP ([id number]) 1.65 2.33 3.22 -- Clinical Disease Activity Index (CDAI) 2.2 4.2 11 2.4 Simplified Disease Activity Index (SDAI) 2.53 4.7 11.48 -- ASSESSMENT / PLAN #1 Arthritis Inflammatory (HCC) #2 SICCA symptoms Overall, she is doing worse since not being on methotrexate. She continues to grieve the loss of hergrandmother and this is also causing her joint symptoms to flare. We spent most of the visit discussing the most recent events and the los of her grandmother. We are going to restart the methotrexate 25 mg SQ once weekly. At this time she will continue folic acid 2 mg daily and Plaquenil to 400 mg on even days and 200 mg on odd days, and pilocarpine 5 mg 3 times a day. For acute pain can take oral Toradol 10 mg every 6 hours for max of 5 days. Patient was in agreement with this plan. I refilled her prescriptions accordingly. #3 High Risk Medication Last Plaquenil eye exam was March 19, 2020. No eye toxicity noted. She is overdue for the eye exam. She will continue laboratory monitoring every 3 months for methotrexate. I will follow up with her in 3 months. I answered the patients questions to the best of my ability. The patient seemed pleased with our interaction. If she should have any additional questions or concerns. I have asked that she contact us at that time. ADDENDUM Last Plaquenil eye exam was July 29, 2021. No eye toxicity noted. She will be due again in June 2022. ' documented in this encounter Plan of Treatment Upcoming Encounters Date Type Specialty Care Team Description 01/08/2022 Appointment Radiology Julián Edouard M.D. [address] [place] [address] (Earl dowd) 01/08/2022 Ancillary Procedure Cardiovascular Disease Julián Edouard M.D. [address] [place] [address] (Earl dowd) 01/08/2022 Comprehensive Visit Thoracic Surgery Tess Raphael M.D. [address] [place] [address] (Earl dowd) Scheduled Orders Name Type Priority Associated Diagnoses Order S chedule Sedimentation Rate Lab Routine Arthritis Inflammatory Expected: 11/05/2021 ([facility]) (Approximate), Expires: 2022 CRP (C-Reactive Protein) Lab Routine Arthritis Inflam matory Expected: 11/05/2021 ([facility]) (Approximate), Expires: 2022 Scheduled Referrals Name Type Priority Associated Order Schedule Diagnoses Rheumatology office Outpatient Referral Routine E xpected: visit (clinic) 11/05/2021 (Approximate), Expires: 11/05/2022 documented as of this encounter Results AST (Aspartate Aminotransferase) (11/03/2021 12:18 PM CDT) Patholo gist Method Time Signature Aspartate 22 8 - 43 11/03/2021 DTL Aminotransferase U/L 1:11 PM CDT (AST), S Specimen Anatomical Collection Method Collection Time Receive d Time (Source) Location / / Volume Laterality Blood (Blood, 11/03/2021 12:18 11/03/2021 Venous) PM CDT 12:55 PM CDT Velma Munson APRN, C.N.P. LAB BLOOD ADD-ON Performing Organization Address City/[facility] Phon e Number [facility] - [address] D[place] [address] Creatinine with Estimated GFR (11/03/2021 12:18 PM CDT) P athologist Signature Creatinine 0.91 0.59 - 11/03/2021 DTL 1.04 mg/dL 1:11 PM CDT eGFR-Non 74 >=60 11/03/2021 DTL Black/ mL/min/BSA 1:11 PM CDT Guamanian Comment: ----ADDITIONAL INFORMATION---- Estimated GFR calculated using the 2009 CKD_EPI creatinine equation. eGFR-Black/ 86 >=60 mL/min/BSA 2021 1:11 PM CDT DTL Comment: ----ADDITIONAL INFORMATION---- Estimated GFR calculated using the 2009 CKD_EPI creatinine equation. Specimen Anatomical Collection Method Collection Time Receive d Time (Source) Location / / Volume Laterality Blood (Blood, 11/03/2021 12:18 11/03/2021 Venous) PM CDT 12:55 PM CDT Velma Munson APRN, C.N.P. LAB BLOOD ADD-ON Performing Organization Address City/[facility] Phon e Number [facility] - [address] [place] [address] (ABNORMAL) CBC with Differential, Blood (11/03/2021 12:18 PM CDT) [facility] gist Method Time Signature Hemoglobin 15.0 11.6 - [...] CDT 12:43 PM CDT Velma Munson APRN, C.N.P. LAB BLOOD ADD-ON Performing Organization Address City/State/ZIP Code Phon e Number [facility] - [address] [facility] [address] [place], [place] [address] [facility] [place] [address] [facility] [address] documented in this encounter Visit Diagnoses Diagnosis Arthritis Inflammatory (HCC) - Primary High Risk Medication Xerostomia documented in this encounter Additional Health Concerns Assessment Noted Time PHQ-9 Depression Total Score: 15 04/21/2018 1:00 PM CS T documented as of this encounter Care Teams Applications Programmer Relationship Specialty Start Date End Date Elsewhere, Pcp PCP - General Internal Medicine 10/22/19 documented as of this encounter
--- OUTSIDE RECORDS SUMMARY | 2022-01-08 10:38 | XMS_ITS | Encounter Summary ---
:1970 Author Organization [facility] Address [address] [place] [address] Care Team Providers Name Role Phone Elsewhere, Pcp Primary Care Provider Unavailable Reason for Visit Reason Comments Med Refill Encounter Details Date Type Department Care Team Description 08/20/2021 Refill Division of Gastroenterology in Julián Edouard Med Refill [place], [place] Alex [address] [facility] [address] [place] [address] [place], [place] [phone] (Wo rk) Social History Tobacco Use Types [...] or relatives? How often do you attend shinto or More than 4 times per year 11/16/2021 rastafarian services? Do you belong to any clubs or No 11/16/2021 organizations such as shinto groups, unions, fraternal or athletic groups, or [...] Appointment Radiology Julián Edouard M.D. [address] [place] [address] (Wo rk) 01/08/2022 Ancillary Procedure Cardiovascular Disease Julián Edouard M.D. [address] [place] [address] (Wo rk) 01/08/2022 Comprehensive Visit Thoracic Surgery Tess Raphael M.D. [address] [place] [phone] (Wo rk) documented as of this encounter Visit Diagnoses Not on filedocumented in this encounter Additional Health Concerns Assessment Noted Time PHQ-9 Depression Total Score: 15 04/21/2018 1:00 PM CS T documented as of this encounter Care Teams Financial Services Education Consultant Relationship Specialty Start Date End Date Elsewhere, Pcp PCP - General Internal Medicine 10/22/19 documented as of this encounter
--- OUTSIDE RECORDS SUMMARY | 2022-01-08 10:38 | XMS_ITS | Encounter Summary ---
:1970 Author Organization [facility] Address [address] [place] [address] Care Team Providers Name Role Phone Elsewhere, Pcp Primary Care Provider Unavailable Encounter Details Date Type Department Care Team Description 09/08/2021 Clinical Communication Division of [place], Gastroenterology in Julián Narayan M.D. [place], [place] [address] [facility] [address] [place] [phone] Social History Tobacco Use Types Packs/Day Years [...] More than 4 times per year 11/16/2021 jehovah's witness services? Do you belong to any clubs [...] place to sleep or slept in a assisted (including now)? Education Answer Date Recorded What is the highest level of school you have Some college, n o degree 01/02/2019 completed or the highest degree you have received? Sex Assigned at Date Recorded Female 01/25/2018 11:49 AM CDT documented as of this encounter Plan of Treatment Upcoming Encounters Date Type Specialty Care Team Description 01/08/2022 Appointment Radiology Julián Edouard M.D. [address] [place] [address] (Wo rk) 01/08/2022 Ancillary Procedure Cardiovascular Disease Julián Edouard M.D. [address] [place] [phone] (Wo rk) 01/08/2022 Comprehensive Visit Thoracic Surgery Tess Raphael M.D. [address] [place] [phone] (Wo rk) documented as of this encounter Visit Diagnoses Not on filedocumented in this encounter Additional Health Concerns Assessment Noted Time PHQ-9 Depression Total Score: 15 04/21/2018 1:00 PM CS T documented as of this encounter Care Teams Case Worker Relationship Specialty Start Date End Date Elsewhere, Pcp PCP - General Internal Medicine 10/22/19 documented as of this encounter
--- OUTSIDE RECORDS SUMMARY | 2022-01-08 10:38 | XMS_ITS | Encounter Summary ---
:1970 Author Organization [facility] Address [address] [place] [address] Care Team Providers Name Role Phone Elsewhere, Pcp Primary Care Provider Unavailable Reason for Visit Reason Comments Follow-up Injury Outpatient (Routine) - Closed Specialty Diagnoses / Procedures Referred By Contact Refer red To Contact Orthopedic Surgery Joseline Millan, ECHOCARDIOLOGIST, [facility] C.N.P., D.N.P. [address] [place] [phone] Referral ID Status Reason Start Date Expiration Date Visits Requ ested Visits Authorized [id number] Closed 07/21/2021 07/21/2022 1 1 Encounter Details Date Type Department Care Team Description 08/18/2021 Office Visit Department of Joseline Millan, Fracture Index Finger Orthopedic Surgery in [facility], C.N.P., Dista l Phalanx Katherine PendletonNLennoxP. Nondisplaced Closed [address] Initial Left (Primary [address] [place] [address] Dx) [place] [phone] Social History Tobacco Use Types Packs/Day Years [...] or relatives? How often do you attend yarsani or More than 4 times per year 11/16/2021 moravian services? Do you belong to any clubs or No 11/16/2021 organizations such as yarsani groups, unions, fraThinkVidya or athletic groups, or school groups? How [...] Notes Joseline Millan, LONG, C.N.P., D.N.P. - 08/18/2021 2:30 PM CDT SUBJECTIVE CHIEF COMPLAINT / REASON FOR VISIT Waleska Diaz is a 50 y.o. female who presents for evaluation of Follow- up and Injury of theLeft Hand. HISTORY OF PRESENT ILLNESS Waleska is a pleasant 50 y.o. female who presents to the clinic today for follow-up evaluation of a nondisplaced fracture of the index finger distal phalangeal tuft. Her initial post injury recovery was complicated by return of a subungual hematoma which needed to be evacuated. Her PCP did this and put her on ABX. She also reports that the splint was to restrictive causing sloughing of the skin on her finger. Since removing the splint and modifying her activity, he reports symptoms have improved. She reports the tip of her finger is still somewhat numb and painful to pressure, but this is improving slowing. OBJECTIVE PHYSICAL EXAMINATION General: Patient is in no distress. Capable of full communication without difficulty. Patient is polite and cooperative. Extremities: There is a healing, small subungual hematoma noted under the left index fingernail. Sheis able to flex and extend at her DIP and PIP joints without issue. She is tender to palpation at the tip of her finger. CMS intact distally. Neuro: Alert and oriented x3. DIAGNOSTICS ASSESSMENT / PLAN #1 Fracture Index Finger Distal Phalanx Nondisplaced Closed Initial Left Waleska is a pleasant 50-year-old female who is recovering from a nondisplaced fracture of the index finger distal phalangeal tuft. She has since removed her splint and has been modifying activity accordingly. At this point in time, she was advised to remain out of her splint and slowly wean back into her normal activities, as pain allows. She will monitor for worsening symptoms and follow- up urgently if any arise. Discussed that due to the type of injury, she might have sustained some nerve damage to the tip of her finger which may take several months to improve. She will continue to monitor this. We will plan to see her back on an as-needed basis for her finger. Questions answered. documented in this encounter Plan of Treatment Upcoming Encounters Date Type Specialty Care Team Description 01/08/2022 Appointment Radiology Julián Edouard M.D. [address] [place] [phone] (Earl dowd) 01/08/2022 Ancillary Procedure Cardiovascular Disease Julián Edouard M.D. [address] [place] [address] [phone] (Earl dowd) 01/08/2022 Comprehensive Visit Thoracic Surgery Tess Raphael M.D. [address] [place] [phone] (Wo rk) documented as of this encounter Visit Diagnoses Diagnosis Fracture Index Finger Distal Phalanx Non displaced Closed Initial Left - Primary documented in this encounter Additional Health Concerns Assessment Noted Time PHQ-9 Depression Total Score: 15 04/21/2018 1:00 PM CS T documented as of this encounter Care Teams Wad Compressor Operator Adjuster Relationship Specialty Start Date End Date Elsewhere, Pcp PCP - General Internal Medicine 10/22/19 documented as of this encounter
--- OUTSIDE RECORDS SUMMARY | 2022-01-08 10:38 | XMS_ITS | Encounter Summary ---
:1970 Author Organization [facility] Address [address] [place] [address] Care Team Providers Name Role Phone Elsewhere, Pcp Primary Care Provider Unavailable Reason for Visit Reason Comments Immunizations Encounter Details Date Type Department Care Team Description 11/13/2021 Immunization Section of Preventive, Transportation and Occupational Medicine in [place], [place] [address] [place] [phone] Social History Tobacco Use Types Packs/Day Years [...] or relatives? How often do you attend congregation or More than 4 times per year 11/16/2021 uatsdin services? Do you belong to any clubs or No 11/16/2021 organizations such as congregation groups, unions, fraternal or athletic groups, or [...] Appointment Radiology Julián Edouard M.D. [address] [place] [phone] (Wo rk) 01/08/2022 Ancillary Procedure Cardiovascular Disease Julián Edouard M.D. [address] [place] [phone] (Earl rk) 01/08/2022 Comprehensive Visit Thoracic Surgery Tess Raphael M.D. [address] [place] [phone] (Wo rk) documented as of this encounter Visit Diagnoses Not on filedocumented in this encounter Additional Health Concerns Assessment Noted Time PHQ-9 Depression Total Score: 15 04/21/2018 1:00 PM CS T documented as of this encounter Care Teams Thermostat Machine Tender Relationship Specialty Start Date End Date Elsewhere, Pcp PCP - General Internal Medicine 10/22/19 documented as of this encounter
--- OUTSIDE RECORDS SUMMARY | 2022-01-08 10:38 | XMS_ITS | Encounter Summary ---
:1970 Author Organization [facility] Address [address] [place] [address] Care Team Providers Name Role Phone Elsewhere, Pcp Primary Care Provider Unavailable Reason for Referral Outpatient (Routine) - Closed Specialty Diagnoses / Procedures Referred By Contact Refer red To Contact Emergency Medicine Diagnoses Fracture Index Finger Distal Phalanx Nondisplaced Closed Initial Left Haritha Guillory [facility] LONG, C.N.P., D.N.P. [address] [place] [address] [place] [phone] Referral ID Status Reason Start Date Expiration Date Visits Requ ested Visits Authorized [id number] Closed 07/18/2021 07/18/2022 1 1 Reason for Visit Reason Comments Hand Injury Encounter Details Date Type Department Care Team Description 07/18/2021 Emergency [place] [facility] Haritha Guillory acture Index Finger Department LONG Narayan, C.N.P., Distal Phalanx [id number] [place] [address] D.N.P. Nondisplaced Closed [address] Initial Left (Primary [id number] [place] Dx) [phone] [address] Social History Tobacco Use Types Packs/Day Years [...] More than 4 times per year 11/16/2021 taoist services? Do you belong to any clubs [...] Sign Reading Time Taken Comments Blood Pressure 153/104 07/18/2021 7:15 AM CDT Pulse 84 07/18/2021 7:15 AM CDT Temperature 37.2 ??C (99 ??F) 07/18/2021 7:15 AM CDT Respiratory Rate 16 07/18/2021 7:15 AM CDT Oxygen Saturation 100% 07/18/2021 7:15 AM CDT Inhaled Oxygen Concentration - - Weight 76.6 kg (168 lb 14 oz) 07/18/2021 7:09 AM CDT Height - - Body Mass Index 30.57 03/04/2021 10:40 AM CDT documented in this encounter Discharge Instructions Discharge InstructionsHaritha Guillory APRN, C.N.P. - 07/18/2021 7:55 AM CDT An electronic referral was submitted to the [facility] for follow-up; they will call you next business day to schedule. OK to remove the finger splint as needed for hygiene/bathing. Do not operate heavy machinery or drink alcoholic beverages while taking prescription pain medication. Increase your fluid and fiber intake to prevent constipation, which is a common side effect of prescription pain medications. Return to the ED for worsening pain uncontrolled with your prescription pain medicine alternated with acetaminophen and/or ibuprofen. Return to changes in sensation or skin color. AttachmentsThe following attachments cannot be sent through Care Everywhere. Finger Fracture Adult [id number] (Ugandan)Oxycodone tablets or capsules (Ugandan)documented in this encounter Medications at Time of [...] by 0 650 mg tablet mouth daily. oxyCODONE (ROXICODONE) 5 Take 1 tablet (5 mg 12 tablet 0 07/21/2021 mg immediate release total) by mouth tabletIndications: Acute every 6 (six) hours Pain as needed for severe pain or score 7-10 of 10 for up to 3 days Indication: Acute Pain. famotidine (PEPCID) 20 mg Take 1 tablet [...] by 0 11/30/[address] capsule mouth. [id number] Drink 1st portion 1 box(es) 0 10/07/20202021 [id number] of prep at 6 PM the (MOVIPREP) [...] at bedtime documented as of this encounter Procedure Notes Haritha Guillory APRN, C.N.P. - 07/18/2021 7:37 AM CDTAssociated Order(s): Splint Application Procedure Splint Application Date/Time: 07/18/2021 7:58 AM Performed by: Haritha Guillory APRN, C.N.P. Authorized by: Haritha Guillory APRN, C.N.P. PROCEDURE DETAILS Immobilization: Splint Splint type: finger frog splint. CONSENT Consent obtained: verbal Consent given by: patient The benefits, risks and alternatives to the procedure and the potential need for sedation or anesthesia as well as the names, roles, and responsibilities of healthcare team members performing significant interventional tasks were discussed with the patient and/or decision maker. UNIVERSAL PROTOCOL All relevant documentation and testing were reviewed and available. All required blood products, implants, devices and or special equipment were made available as applicable. Pre-procedure verificationwas conducted and the correct site was marked if required. A fire risk assessment was done as applicable. The procedural time-out was conducted prior to performing the procedure and confirmed in a procedural pause. PRE PROCEDURE DETAILS Procedure type: application Performed by: POUND ATTENDANT Indication: fracture, pain and joint immobilization Location: Finger Finger: Left index finger Circulation distal to injury: capillary refill < 2 sec, warm, pink and palpable pulse Movement distal to injury: normal Sensation distal to injury: normal SEDATION / ANESTHESIA Anesthesia method: none POST PROCEDURE DETAILS Procedure completed successfully: yes Pain: Improved Circulation distal to injury: capillary refill < 2 sec, warm, pink and palpable pulse Movement distal to injury: normal Sensation distal to injury: normal Tetanus status: updated today s/p subungual hematoma evacuation via fine tip surgical cauthery. Complications: no immediate complications Haritha Guillory APRN, C.N.P. 07/18/21 0800 documented in this encounter ED Notes Karley Mathew R.N. - 07/18/2021 7:15 AM CDT Pt presents to ED with c/o left index finger pain after accidentally slamming it in her garage door prior to arrival. Pt rates pain 10/10 and throbbing. Karley Mathew R.N. 07/18/21 0716 Haritha Guillory APRN, C.N.P. - 07/18/2021 7:06 AM CDT SUBJECTIVE CHIEF COMPLAINT/REASON FOR VISIT Hand Injury HISTORY OF PRESENT ILLNESS Waleska Diaz is a very pleasant right-handed 50-year-old female who presents via private vehicle with complaints of a crush injury to her left index finger sustained immediately prior to arrival while attempting to manually open her broken garage door. She is concerned for a fracture stating she felt the bones move. Medical history includes fibromyalgia, rheumatoid arthritis, denies anxiety,hypertension, irritable bowel syndrome, migraines, seizures, and GERD. The tip of her left index finger including the nail is black, blue, and swollen. Pain is rated a 10/10. Patient drove herself to the emergency department this morning and did not take anything for pain relief prior to arrival. No numbness, weakness, or tingling. No bleeding or open wound. REVIEW OF SYSTEMS Constitutional: Negative for chills, fatigue and fever. Respiratory: Negative for cough and shortness of breath. Cardiovascular: Negative for chest pain. Gastrointestinal: Negative for abdominal pain, nausea and vomiting. Genitourinary: Negative for decreased urine volume. Musculoskeletal: Positive for extremity pain. Negative for gait problem. Skin: Positive for color change. Allergic/Immunologic: Positive for immunocompromised state. Neurological: Negative for weakness and numbness. Hematological: Does not bruise/bleed easily. OBJECTIVE Initial Vitals Temperature Pulse Rate Heart Rate Resp Rate Blood Pressure SpO2 07/18/21 0715 07/18/21 0715 -- 07/18/21 0715 07/18/21 0715 07/18/21 0715 37.2 ??C 84 16 (!) 153/104 100 % Pain Score 07/18/21 0708 10 - Worst possible pain PHYSICAL EXAMINATION Constitutional: Nursing note and vitals reviewed. She appears well-developed and well-nourished. No distress. HENT: Head: Normocephalic. Mouth/Throat: Mucous membranes are moist. Eyes: Conjunctivae and EOM are normal. Neck: Neck supple. Cardiovascular: Normal rate. Pulses are strong. Capillary refill: takes less than 3 seconds, Pulmonary/Chest: Effort normal. No respiratory distress. Abdominal: exhibits no distension. Musculoskeletal: Left hand: Deformity and bony tenderness present. Decreased range of motion. Normal sensation. Normal capillary refill. Normal pulse. Cervical back: Normal range of motion and neck supple. Comments: Median, radial, ulnar, and anterior interosseous motor and sensory assessments intact. ROM limited secondary to pain. Radial pulses 2+ and equal. 30% subungual hematoma. Neurological: Alert and oriented to person, place, and time. Skin: Skin is warm, dry and intact. Psychiatric: She has a normal mood and affect. Behavior is normal. Thought content normal. ASSESSMENT/PLAN IMPRESSION AND PLAN Right-hand dominant 50-year-old female presents with a crush injury to her left index finger sustained while attempting to manually open her broken garage door. She is neurovascularly intact and without evidence of an open fracture. Physical exam is concerning for a tuft fracture with a 30% subungual hematoma. Will obtain radiographs for further evaluation. IM Toradol and ice for comfort. Tdap last updated 2015, updated today s/p subungual hematoma evacuation via fine tip surgical cautery. See procedure note. DIFFERENTIAL DIAGNOSIS Fracture, dislocation, sprain, among others I reviewed previous medical records including documentation from previous visits. I personally reviewed the radiology image(s) and reviewed the radiology report(s). The Radiology exam interpretation(s) is/are documented in ED Course. ED Course as of 07/18/21 0757 Sat Jul 18, 2021 0741 Radiology impression: Nondisplaced fracture of the index finger distal phalangeal tuft. No intra-articular extension. Osseous structures are otherwise intact. Alignment is anatomic. 0755 Diagnostic results were discussed with the patient in plain, every day language. Plan for discharge home in a frog finger splint with Orthopedic Surgery follow up next week. Short course of oxycodone for break through pain. All questions answered and concerns addressed. Return for uncontrolled pain or neurovascular changes. Final Diagnoses: as of 07/18/21 0757 Fracture Index Finger Distal Phalanx Nondisplaced Closed Initial Left Haritha Guillory APRN, C.N.P. 07/18/21 0757 documented in this encounter Plan of Treatment Upcoming Encounters Date Type Specialty Care Team Description 01/08/2022 Appointment Radiology Julián Edouard M.D. [address] [place] [phone] (Earl dowd) 01/08/2022 Ancillary Procedure Cardiovascular Disease Julián Edouard M.D. [address] [place] [phone] (Earl dowd) 01/08/2022 Comprehensive Visit Thoracic Surgery Tess Raphael M.D. [address] [place] [phone] (Earl dowd) Scheduled Referrals Name Type Priority Associated Diagnoses Order S chedule POST ED VISIT Outpatient Referral Routine Fracture Index Finge r Expected: Orthopedic Surgery Distal Phalanx 03/22/2 022, Nondisplaced Closed Expires: Initial Left 10/18/2022 documented as of this encounter Procedures Procedure Name Priority Date/Time Associated Comments Diagnosis SPLINT APPLICATION Routine 07/18/2021 7:58 Result s for this AM CDT procedure are i n the results section. DX HAND LEFT 3+ RAD - Semiurgent 07/18/2021 7:28 Resul ts for this VIEWS (Fast; most ED AM CDT procedure are in patients; some the results inpatients) section. documented in this encounter Results Splint Application (07/18/2021 7:58 AM CDT) Narrative Haritha Guillory APRN, C.N.P. - 2021 7:58 AM CDT Haritha Guillory APRN C.N.P. ? 07/18/2021 ??8:00 AM Splint Application Date/Time: 07/18/2021 7:58 AM Performed by: Haritha Guillory APRN, C .N.P. Authorized by: Haritha Guillory APRN, C.N.P. PROCEDURE DETAILS Immobilization: ??Splint Splint type: finger frog splint. CONSENT Consent obtained: verbal Consent given by: patient The benefits, risks and alternatives to the procedure and the potential need for sedation or anesthesia as well as the names, roles, and responsibilities of healthcare team memb ers performing significant interventional tasks were discussed with the patient and/or decision maker. UNIVERSAL PROTOCOL All relevant documentation and testing w ere reviewed and available. All required blood products, implants, devic es and or special equipment were made available as applicable. Pre-proced ure verification was conducted and the correct site was marked if required. A fire risk assessment was done as applicable. The procedural time-out w as conducted prior to performing the procedure and confirmed in a procedu ral pause. PRE PROCEDURE DETAILS Procedure type: application ?? Performed by: ??POUND ATTENDANT Indication: fracture, pain and joint imm obilization ?? Location: ??Finger Finger: ??Left index finger Circulation distal to injury: capillary refill < 2 sec, warm, pink and palpable pulse ?? Movement distal to injury: normal ?? Sensation distal to injury: normal ?? SEDATION / ANESTHESIA Anesthesia method: none POST PROCEDURE DETAILS Procedure completed successfully: yes ?? Pain: ??Improved Circulation distal to injury: capillary refill < 2 sec, warm, pink and palpable pulse ?? Movement distal to injury: normal ?? Sensation distal to injury: normal ?? Tetanus status: updated today s/p subung ual hematoma evacuation via fine tip surgical cauthery. Complications: no immediate complication s ?? Karlene Kent APRN.N.Francis., D.N.P. PROCEDURE/MINOR SURGICAL ORDERABLES DX Hand Left 3+ Views (07/18/2021 7:28 AM CDT) Anatomical Region Laterality Modality Upper Extremity, Hand, Musculoskeletal RST LOS, Left Digital Radiography Musculoskeletal ARZ LOS, Muskuloskeletal FLA LOS Specimen (Source) Anatomical Collection Method Collection Time Re ceived Time Location / / Volume Laterality 07/18/2021 7:36 AM CDT Impressions 07/18/2021 7:37 AM CDT Nondisplaced fracture of the index finger distal phalangeal tuft. No intra-articular extension. Osseous structures are otherw ise intact. Alignment is anatomic. Narrative 07/18/2021 7:37 AM CDT EXAM: DX HAND LEFT 3+ VIEWS Procedure Note Kirk Johnson M.D. - 07/18/2021Formatt ing of this note might be different from the original. EXAM: DX HAND LEFT 3+ VIEWS IMPRESSION: Nondisplaced fracture of the index finge r distal phalangeal tuft. No intra-articular extension. Osseous structures are otherw ise intact. Alignment is anatomic. Haritha Guillory APRN, Karlene.N.P., D.N.P. IMG DIAGNOSTIC I MAGING PROCEDURES documented in this encounter Visit Diagnoses Diagnosis Fracture Index Finger Distal Phalanx Non displaced Closed Initial Left - Primary documented in this encounter Administered Medications Inactive Administered Medications - up to 3 most recent administrations Medication Order MAR Action Action Date Dose Rate Site ketorolac injection 15 mg Given 07/18/2021 7:28 AM 15 mg Left Ventrogluteal (TORADOL) CDT 15 mg, intramuscular, Once, On 07/18/21 at 0719, For 1 dose, Adult IV push rate: Over 15 seconds. Peds IV push rate: Over 1 minute. 60 mg dose only for IM, not recommended for IV., Drug Monitoring Program: Pharmacist to adjust medication dosing based on indication and drug clearance factors. documented in this encounter Active and Recently Administered Medications Times are shown in CDT. Scheduled Medication Order 07/16/2021 07/17/2021 07/18/2021 ketorolac injection 15 mg (TORADOL) (COMPLETED) 0728 (Given - Provider: Karley Mathew R.N.) 15 mg, intramuscular, Once, On Sat at 0719, For 1 dose, Adult IV push rate: Over 15 seconds. Peds IV push rate: Over 1 minute. 60 mg dose only for IM, not recommended for IV., Drug Monitoring Pr ogram: Pharmacist to adjust medication d osing based on indication and drug clearance factors. documented in this encounter Additional Health Concerns Assessment Noted Time PHQ-9 Depression Total Score: 15 04/21/2018 1:00 PM CS T documented as of this encounter Care Teams Pcas Relationship Specialty Start Date End Date Elsewhere, Pcp PCP - General Internal Medicine 10/22/19 documented as of this encounter
--- OUTSIDE RECORDS SUMMARY | 2022-01-08 10:38 | XMS_ITS | Encounter Summary ---
:1970 Author Organization [facility] Address [address] [place] [address] Care Team Providers Name Role Phone Elsewhere, Pcp Primary Care Provider Unavailable Reason for Visit Reason Comments Lab Monitoring Encounter Details Date Type Department Care Team Description 07/15/2021 Clinical Communication Division of Saeed Espinoza onitoring Rheumatology in [facility] [place] [address] [facility] [address] [place] [phone] Social History Tobacco Use Types Packs/Day Years [...] or relatives? How often do you attend rastafari or More than 4 times per year 11/16/2021 protestant services? Do you belong to any clubs or No 11/16/2021 organizations such as rastafari groups, unions, fraternal or athletic groups, or [...] this encounter Miscellaneous Notes Telephone Encounter - Cam Espinoza R.N. - 07/15/2021 2:12 PM CDT ASSESSMENT Rheumatology monitoring labs completed on 07/13/21 for methotrexate monitoring were reviewed per provider order. All monitored labs are within order range. Labs reviewed: absolute neutrophil count, AST, creatinine, hemoglobin, leukocytes, platelets Labs viewable in Labs tab. PLAN Patient to continue with current plan of care. Patient next due for monitoring labs in three months. documented in this encounter Plan of Treatment Upcoming Encounters Date Type Specialty Care Team Description 01/08/2022 Appointment Radiology Julián Edouard M.D. [address] [place] [address] [phone] (Earl dowd) 01/08/2022 Ancillary Procedure Cardiovascular Disease Julián Edouard M.D. [address] [place] [phone] (Earl dowd) 01/08/2022 Comprehensive Visit Thoracic Surgery Tess Raphael M.D. [address] [place] [phone] (Earl dowd) documented as of this encounter Visit Diagnoses Diagnosis Medication Therapy Senior Care Not Anticoa gulant - Primary documented in this encounter Additional Health Concerns Assessment Noted Time PHQ-9 Depression Total Score: 15 04/21/2018 1:00 PM CS T documented as of this encounter Care Teams Nursing Educator Relationship Specialty Start Date End Date Elsewhere, Pcp PCP - General Internal Medicine 10/22/19 documented as of this encounter
--- OUTSIDE RECORDS SUMMARY | 2022-01-08 10:38 | XMS_ITS | Encounter Summary ---
:1970 Author Organization [facility] Address [address] [place] [address] Care Team Providers Name Role Phone Elsewhere, Pcp Primary Care Provider Unavailable Encounter Details Date Type Department Care Team Description 11/03/2021 Hospital Encounter Department of Velma Munson Laboratory Medicine Lana, LONG, C.N .P. Inflammatory (HCC) and Pathology, [address] [place] [address] in [facility] [phone] [place] [phone] [place] [address] (Work) [place], [place] [phone] (Fax) [phone] Social History Tobacco Use Types Packs/Day Years [...] or relatives? How often do you attend hinduism or More than 4 times per year 11/16/2021 congregational services? Do you belong to any clubs or No 11/16/2021 organizations such as hinduism groups, unions, fraternal or athletic groups, or [...] 1 mg Take 2 tablets 180 tablet 08/06/2021 tabletIndications: (2,000 mcg total) Arthritis Inflammatory [...] the Arthritis Inflammatory skin once a week. ([facility]) Labs needed for further refills. modafiniL (PROVIGIL) [...] times a day before breakfast and dinner. SUMAtriptan (IMITREX Inject under the 0 5 [...] Appointment Radiology Julián Edouard M.D. [address] [place] [phone] (Wo rk) 01/08/2022 Ancillary Procedure Cardiovascular Disease Julián Edouard M.D. [address] [place] [phone] (Wo rk) 01/08/2022 Comprehensive Visit Thoracic Surgery Tess Raphael M.D. [address] [place] [phone] (Wo rk) documented as of this encounter Procedures Procedure Name Priority Date/Time Associated Comments Diagnosis CBC WITH DIFFERENTIAL, B Routine 11/03/2021 12:18 Arthritis Results for this PM CDT Inflammatory (HCC) procedure are in the results section. ASPARTATE Routine 11/03/2021 12:18 Arthritis Results for this AMINOTRANSFERASE (AST), PM CDT Inflammatory (HCC ) procedure are in S/P the results section. CREATININE WITH EGFR, Routine 11/03/2021 12:18 Arthritis Re sults for this S/P PM CDT Inflammatory (HCC) procedure are in the results section. documented in this encounter Results AST (Aspartate Aminotransferase) (11/03/2021 12:18 PM CDT) [facility] gist Method Time Signature Aspartate 22 8 - 43 11/03/2021 DTL Aminotransferase U/L 1:11 PM CDT (AST), S Specimen Anatomical Collection Method Collection Time Receive d Time (Source) Location / / Volume Laterality Blood (Blood, 11/03/2021 12:18 11/03/2021 Venous) PM CDT 12:55 PM CDT Jorge Polo APRNN.PLennox LAB BLOOD ADD-ON Performing Organization Address City/State/ZIP Code Phon e Number [facility] - 200 [place], [place] [address] [facility] [place] [address] [facility] 200 [facility] Creatinine with Estimated GFR (11/03/2021 12:18 PM CDT) P athologist Signature Creatinine 0.91 0.59 - 11/03/2021 DTL 1.04 mg/dL 1:11 PM CDT eGFR-Non 74 >=60 11/03/2021 DTL Black/ mL/min/BSA 1:11 PM CDT Samoan Comment: ----ADDITIONAL INFORMATION---- Estimated GFR calculated using [...] Organization Address City/State/ZIP Code Phon e Number [facility] - [address] [place] [phone] [facility] [place] [address] [facility] 200 [facility] (ABNORMAL) CBC with Differential, Blood (11/03/2021 12:18 PM CDT) Patholo gist Method Time Signature Hemoglobin 15.0 11.6 [...] PM CDT 12:43 PM CDT Velma Munson APRN C.N.P. LAB BLOOD ADD-ON Performing Organization Address City/State/ZIP Code Phon e Number [facility] - [address] [place], [place] [address] [facility] [place] [address] [facility] [address] documented in this encounter Visit Diagnoses Diagnosis Arthritis Inflammatory (HCC) documented in this encounter Additional Health Concerns Assessment Noted Time PHQ-9 Depression Total Score: 15 04/21/2018 1:00 PM CS T documented as of this encounter Care Teams Portrait Painter Relationship Specialty Start Date End Date Elsewhere, Pcp PCP - General Internal Medicine 10/22/19 documented as of this encounter
--- OUTSIDE RECORDS SUMMARY | 2022-01-08 10:38 | XMS_ITS | Encounter Summary ---
:1970 Author Organization [facility] Address [address] [place] [address] Care Team Providers Name Role Phone Elsewhere, Pcp Primary Care Provider Unavailable Reason for Visit Reason Comments Pre-visit Intake Encounter Details Date Type Department Care Team Description 07/15/2021 Clinical Communication Division of Velma Munson e-visit Intake Rheumatology in , PAINT ROLLER COVER MACHINE SETTER, C.N.P. [place], [place] [address] [facility] [address] [place] [phone] Social History Tobacco Use Types Packs/Day Years [...] many times do you More than three myradna es a week 11/16/2021 talk on the phone with family, friends, or neighbors? How often do you get together with friends Never 11/16/2021 or relatives? How often do you attend sikh or More than 4 times per year 11/16/2021 restorationism services? Do you belong to any clubs [...] Appointment Radiology Julián Edouard M.D. [address] [place] [address] (Wo rk) 01/08/2022 Ancillary Procedure Cardiovascular Disease Julián Edouard M.D. [address] [place] [phone] (Wo rk) 01/08/2022 Comprehensive Visit Thoracic Surgery Tess Raphael M.D. [address] [place] [phone] (Wo rk) documented as of this encounter Visit Diagnoses Not on filedocumented in this encounter Additional Health Concerns Assessment Noted Time PHQ-9 Depression Total Score: 15 04/21/2018 1:00 PM CS T documented as of this encounter Care Teams Assembler Installer Structures Relationship Specialty Start Date End Date Elsewhere, Pcp PCP - General Internal Medicine 10/22/19 documented as of this encounter
--- OUTSIDE RECORDS SUMMARY | 2022-01-08 10:38 | XMS_ITS | Encounter Summary ---
:1970 Author Organization [facility] Address [address] [place] [address] Care Team Providers Name Role Phone Elsewhere, Pcp Primary Care Provider Unavailable Reason for Visit Reason Comments Immunizations Appointment Request (Routine) - Closed Specialty Diagnoses / Procedures Referred By Contact Refer red To Contact Family Medicine Referral ID Status Reason Start Date Expiration Date Visits Requ ested Visits Authorized [id number] Closed 07/28/2021 07/28/2022 1 1 Encounter Details Date Type Department Care Team Description 08/06/2021 Immunization Section of Infectious Need V accine Immunization Diseases in [place], (Prim deandre Dx) [place] [address] [place] [address] Social History Tobacco Use Types Packs/Day [...] or relatives? How often do you attend roman catholic or More than 4 times per year 11/16/2021 taoism services? Do you belong to any clubs or No 11/16/2021 organizations such as roman catholic groups, unions, fraternal or athletic groups, [...] place to sleep or slept in a snf (including now)? Education Answer Date Recorded What is the highest level of school you have Some college, n o degree 01/02/2019 completed or the highest degree you have received? Sex Assigned at Date Recorded Female 01/25/2018 11:49 AM CDT documented as of this encounter Last Filed Vital Signs Vital Sign Reading Time Taken Comments Blood Pressure - - Pulse - - Temperature 36.4 ??C (97.5 ??F) 08/06/2021 9:18 AM CDT Respiratory Rate - - Oxygen Saturation - - Inhaled Oxygen Concentration - - Weight - - Height - - Body Mass Index - - documented in this encounter Plan of Treatment Upcoming Encounters Date Type Specialty Care Team Description 01/08/2022 Appointment Radiology Julián Edouard M.D. [address] [place] [phone] (Earl dowd) 01/08/2022 Ancillary Procedure Cardiovascular Disease Julián Edouard M.D. [address] [place] [phone] (Earl dowd) 01/08/2022 Comprehensive Visit Thoracic Surgery Tess Raphael M.D. [address] [place] [phone] (Earl dowd) documented as of this encounter Visit Diagnoses Diagnosis Need Vaccine Immunization - Primary documented in this encounter Additional Health Concerns Assessment Noted Time PHQ-9 Depression Total Score: 15 04/21/2018 1:00 PM CS T documented as of this encounter Care Teams Residential Concierge Relationship Specialty Start Date End Date Elsewhere, Pcp PCP - General Internal Medicine 10/22/19 documented as of this encounter
--- OUTSIDE RECORDS SUMMARY | 2022-01-08 10:39 | XMS_ITS | Encounter Summary ---
:1970 Author Organization [facility] Address [address] [place] [address] Care Team Providers Name Role Phone Elsewhere, Pcp Primary Care Provider Unavailable Reason for Visit Reason Comments Lab Monitoring Methotrexate Encounter Details Date Type Department Care Team Description 02/02/2021 Clinical Communication Division of Justine Weeks onitoring Rheumatology in L, M.S.N., (Methotrexat e ) [place], [place] R.N. [address] [facility] [address] [facility] [phone] [facility] [phone] [place] [phone] Social History Tobacco Use Types Packs/Day Years [...] or relatives? How often do you attend oriental orthodox or More than 4 times per year 11/16/2021 muslim services? Do you belong to any clubs or No 11/16/2021 organizations such as oriental orthodox groups, unions, fraternal or athletic groups, or [...] Notes Telephone Encounter - Hansa Padilla - 02/02/2021 2:02 PM CDT Have scheduled on 02/05. Telephone Encounter - Justine Weeks M.S.N., R.N. - 02/02/2021 1:14 PM CDT Patient had labs ordered for 01/30/21, however, she is not due for labs until 02/26/21. Will ask deskto reschedule her labs and outreach to that time. documented in this encounter Plan of Treatment Upcoming Encounters Date Type Specialty Care Team Description 01/08/2022 Appointment Radiology Julián Edouard M.D. [address] [place] [phone] (Wo nile) 01/08/2022 Ancillary Procedure Cardiovascular Disease Julián Edouard M.D. [address] [place] [phone] (Wo nile) 01/08/2022 Comprehensive Visit Thoracic Surgery Tess Raphael M.D. [address] [place] [phone] (Wo rk) documented as of this encounter Visit Diagnoses Not on filedocumented in this encounter Additional Health Concerns Assessment Noted Time PHQ-9 Depression Total Score: 15 04/21/2018 1:00 PM CS T documented as of this encounter Care Teams Post Partum Nurse Relationship Specialty Start Date End Date Elsewhere, Pcp PCP - General Internal Medicine 10/22/19 documented as of this encounter
--- OUTSIDE RECORDS SUMMARY | 2022-01-08 10:39 | XMS_ITS | Encounter Summary ---
:1970 Author Organization [facility] Address [address] [place] [address] Care Team Providers Name Role Phone Elsewhere, Pcp Primary Care Provider Unavailable Encounter Details Date Type Department Care Team Description 12/16/2020 Orders Only [facility]CP [facility] Sa jordy Gibson M.D. [address] [place], [place] [phone] (Wo rk) Social History Tobacco Use Types [...] or relatives? How often do you attend buddhism or More than 4 times per year 11/16/2021 latter day services? Do you belong to any clubs or No 11/16/2021 organizations such as buddhism groups, unions, fraternal or athletic groups, or [...] Appointment Radiology Julián Edouard M.D. [address] [place] [phone] ([place]o nile) 01/08/2022 Ancillary Procedure Cardiovascular Disease Julián Edouard M.D. [address] [place] [phone] (Earl dowd) 01/08/2022 Comprehensive Visit Thoracic Surgery Tess Raphael M.D. [address] [place] [phone] (Earl dowd) documented as of this encounter Visit Diagnoses Not on filedocumented in this encounter Additional Health Concerns Assessment Noted Time PHQ-9 Depression Total Score: 15 04/21/2018 1:00 PM CS T documented as of this encounter Care Teams Surface Room Shop Optician Relationship Specialty Start Date End Date Elsewhere, Pcp PCP - General Internal Medicine 10/22/19 documented as of this encounter
--- OUTSIDE RECORDS SUMMARY | 2022-01-08 10:39 | XMS_ITS | Encounter Summary ---
:1970 Author Organization [facility] Address [address] [place] [address] Care Team Providers Name Role Phone Elsewhere, Pcp Primary Care Provider Unavailable Reason for Visit Reason Comments question regarding methotrexate and influenza A p1 Encounter Details Date Type Department Care Team Description 04/28/2021 Clinical Division of Jeimy, question regard ing Communication Rheumatology in Velma L, methotrexat e and [place], [place] LAUNDRY WASHER, C.N.P. influenza A; p1 [address] [facility] [address] [place] [phone] Social History Tobacco Use Types Packs/Day Years [...] or relatives? How often do you attend gnosticism or More than 4 times per year 11/16/2021 buddhist services? Do you belong to any clubs or No 11/16/2021 organizations such as gnosticism groups, unions, fraternal or athletic groups, or [...] this encounter Miscellaneous Notes Telephone Encounter - Velma Munson APRN, C.N.P. - 05/03/2021 12:04 PM CRIPPLE CHASER I recommend holding the methotrexate until she recovers from her current symptoms. PLE CHASER Telephone Encounter - Justine Weeks M.S.N., R.N. - 04/29/2021 10:08 AM CRIPPLE CHASER SUBJECTIVE CHIEF COMPLAINT / REASON FOR CALL question regarding methotrexate and influenza A and p1 Information Discussed Patient returned call. She reports that her has influenza and is being seen today for possible pneumonia, he has tested negative for COVID as of this time. Her daughter has influenza and today lost her sense of smell and taste, her daughter has been tested for COVID and was negative but will be tested again today. Waleska is currently having a runny nose and sore throat. 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 She was advised to be tested for COVID and to hold her Methotrexate at this time. She should continue to hold it if she continue to be ill. She should contact us if she is COVID positive for further guidance on medication, she should also contact her primary care provider to see if she qualifies for monoclonal antibodies if she is positive. PLAN Disposition/Recommendation: recommended continue engagement in self-management activities Information/Education: patient/caller able to teach back Caller agreeable to plan of care: yes The following references were used: nursing clinical judgement Nursing spoke directly with Frank Byrne APRN, CNP who agrees with current recommendation. Will alert Velma LONG Munson CNP as well for when she returns. PLE CHASER Telephone Encounter - Violetta Mendieta - 04/28/2021 12:36 PM CST Caller/authorization: Patient Provider/nurse: Velma Reason for call: Patient knows Velma is away but would like a phone call back CARLA. She stated shedid not take her methotrexate last week as her had influenza A and did not want to lower herimmune system. She was to take the methotrexate yesterday but her daughter now has influenza A so did not take it. She would like to know what we recommend she do - should she take the injection or not? Follow-up requested: Yes Preferred response (portal/phone): Phone PLE CHASER documented in this encounter Plan of Treatment Upcoming Encounters Date Type Specialty Care Team Description 01/08/2022 Appointment Radiology Julián Edouard M.D. [address] [place] [phone] (Earl dowd) 01/08/2022 Ancillary Procedure Cardiovascular Disease Julián Edouard M.D. [address] [place] [phone] (Earl dowd) 01/08/2022 Comprehensive Visit Thoracic Surgery Tess Raphael M.D. [address] [place] [phone] (Earl dowd) documented as of this encounter Visit Diagnoses Not on filedocumented in this encounter Additional Health Concerns Assessment Noted Time PHQ-9 Depression Total Score: 15 04/21/2018 1:00 PM CS T documented as of this encounter Care Teams Pharmacy Order Entry Technician Relationship Specialty Start Date End Date Elsewhere, Pcp PCP - General Internal Medicine 10/22/19 documented as of this encounter
--- OUTSIDE RECORDS SUMMARY | 2022-01-08 10:39 | XMS_ITS | Encounter Summary ---
:1970 Author Organization [facility] Address [address] [place] [address] Care Team Providers Name Role Phone Elsewhere, Pcp Primary Care Provider Unavailable Encounter Details Date Type Department Care Team Description 03/04/2021 Hospital Encounter Department of Velma Munson Pain Low Back Radiology, Luzmaria Schwartz APRN, C.N.P. Chronic Building, in [address] [place] [phone] [place] [address] [place], [place] (Work) [phone] Social History Tobacco Use Types Packs/Day Years [...] More than 4 times per year 11/16/2021 tenriism services? Do you belong to any clubs [...] mcg total) Arthritis Inflammatory by mouth daily. ([facility]) hydrOXYchloroQUINE Take 1-2 tablets 135 tablet 3 05/27/2020 06/01/2021 (PLAQUENIL) 200 mg (200-400 mg total) tabletIndications: by mouth daily. Arthritis Inflammatory Take 2 tab on even (HCC) days, 1 on odd. ketorolac (TORADOL) 10 mg Take 1 tablet (10 10 tablet 0 06/202007/21/2021 tablet mg total) by mouth every 6 (six) hours as needed for pain. Max 40 mg/day. Max duration is 5 days. methotrexate 25 mg/mL Inject 1 mL (25 mg 12 mL 1 202005/13/2021 injectionIndications: total) under the Arthritis Inflammatory skin once a week. ([facility]) omeprazole (PriLOSEC) 20 Take 20 mg by 0 11/30/[address] capsule mouth. [id number] Drink 1st portion 1 box(es) 0 10/07/20202021 [id number] of prep at 6 PM the (MOVIPREP) [...] Appointment Radiology Julián Edouard M.D. [address] [place] [phone] (Wo rk) 01/08/2022 Ancillary Procedure Cardiovascular Disease Julián Edouard M.D. [address] [place] [phone] (Wo rk) 01/08/2022 Comprehensive Visit Thoracic Surgery Tess Raphael M.D. [address] [place] [phone] (Wo rk) documented as of this encounter Procedures Procedure Name Priority Date/Time Associated Comments Diagnosis DX LUMBAR SPINE RAD - Routine 03/04/2021 12:32 Pain Low Back Result s for this 2-3 VIEWS (most inpatients PM CDT Chronic procedure a re in and all the results outpatients) section. documented in this encounter Results DX Lumbar Spine 2-3 Views (03/04/2021 12:32 PM CDT) Anatomical Region Laterality Modality Lumbar Spine, Musculoskeletal RST LOS, Neuroradiology N/A Digital Radiography ARZ LOS, Muskuloskeletal FLA LOS Specimen (Source) Anatomical Collection Method Collection Time Re ceived Time Location / / Volume Laterality 03/04/2021 12:49 PM CDT Impressions 03/04/2021 12:50 PM CDT Minimal lower lumbar facet arthropathy. Surgical clips RUQ. IUD. Narrative 03/04/2021 12:50 PM CDT EXAM: ??DX LUMBAR SPINE 2-3 VIEWS Procedure Note Armand Geronimo M.D. - 03/04/2021Forma tting of this note might be different from the original. EXAM: DX LUMBAR SPINE 2-3 VIEWS IMPRESSION: Minimal lower lumbar facet arthropathy. Surgical clips RUQ. IUD. Jorge Polo APRNN.P. [facility] P ROCEDURES documented in this encounter Visit Diagnoses Diagnosis Pain Low Back Chronic documented in this encounter Additional Health Concerns Assessment Noted Time PHQ-9 Depression Total Score: 15 04/21/2018 1:00 PM CS T documented as of this encounter Care Teams Judge Clerk Relationship Specialty Start Date End Date Elsewhere, Pcp PCP - General Internal Medicine 10/22/19 documented as of this encounter
--- OUTSIDE RECORDS SUMMARY | 2022-01-08 10:39 | XMS_ITS | Encounter Summary ---
:1970 Author Organization [facility] Address [address] [place] [address] Care Team Providers Name Role Phone Elsewhere, Pcp Primary Care Provider Unavailable Reason for Visit Reason Comments Lab Monitoring Encounter Details Date Type Department Care Team Description 02/27/2021 Clinical Communication Division of Kaylie Vu Monitoring Rheumatology in L, M.A.N., R.N. [place], [place] [address] [facility] [address] [place] [phone] Social History Tobacco Use Types Packs/Day Years [...] More than 4 times per year 11/16/2021 bahai services? Do you belong to any clubs [...] this encounter Miscellaneous Notes Telephone Encounter - Kaylie Vu M.A.N., R.N. - 02/27/2021 1:51 PM CDT ASSESSMENT Rheumatology monitoring labs completed on 02/05/21 for methotrexate monitoring were reviewed per provider [...] Appointment Radiology Julián Edouard M.D. [address] [place] [phone] (Earl dowd) 01/08/2022 Ancillary Procedure Cardiovascular Disease Julián Edouard M.D. [address] [place] [phone] (Earl dowd) 01/08/2022 Comprehensive Visit Thoracic Surgery Tess Raphael M.D. [address] [place] [phone] (Earl dowd) documented as of this encounter Results Creatinine with Estimated GFR (07/13/2021 1:39 PM CDT) P athologist Signature Creatinine 0.80 0.59 - 07/13/2021 CNFL 1.04 mg/dL 2:10 PM CDT eGFR-Black/Afric >90 >=60 07/13/2021 CNFL an Sierra Leonean mL/min/BSA 2:10 PM CDT Comment: ----ADDITIONAL INFORMATION---- [...] C.N.P. LAB BLOOD ADD-ON Performing Organization Address City/[facility] Phon e Number [address] [address] [place] [address] System in [place] [address] [address] AST (Aspartate Aminotransferase) (07/13/2021 1:39 PM CDT) Patholo gist Method Time Signature Aspartate 22 8 - 43 07/13/2021 CNFL Aminotransferase U/L 2:10 PM CDT (AST), Specimen Anatomical Collection Method Collection Time Receive d Time (Source) Location / / Volume Laterality Blood (Blood, 07/13/2021 1:39 PM 07/14/19 1:40 Venous) CDT PM CDT Velma Munson APRN, C.N.P. LAB BLOOD ADD-ON Performing Organization Address [facility] Phon e Number [address] [address] [place] [address] System in [place] [address] [address] (ABNORMAL) CBC with Differential, Blood (07/13/2021 1:39 PM CDT) [facility] Method Time Signature Hemoglobin 14.1 11.6 - [...] 07/14/19 1:40 Venous) CDT PM CDT Jorge oPlo APRNN.P. LAB BLOOD ADD-ON Performing Organization Address City/State/ZIP Code Phon e Number [facility]- [address] [place] [address] [place] [address] [place] [address] System in [place] [address] [address] documented in this encounter Visit Diagnoses Diagnosis Medication Therapy Skilled Nursing Not Anticoa gulant - Primary documented in this encounter Additional Health Concerns Assessment Noted Time PHQ-9 Depression Total Score: 15 04/21/2018 1:00 PM CS T documented as of this encounter Care Teams Unisaw Operator Relationship Specialty Start Date End Date Elsewhere, Pcp PCP - General Internal Medicine 10/22/19 documented as of this encounter
--- OUTSIDE RECORDS SUMMARY | 2022-01-08 10:39 | XMS_ITS | Encounter Summary ---
:1970 Author Organization [facility] Address [address] [place] [address] Care Team Providers Name Role Phone Elsewhere, Pcp Primary Care Provider Unavailable Reason for Referral Outpatient (Routine) - Closed Specialty Diagnoses / Procedures Referred By Contact Refer red To Contact Diagnoses Diarrhea Persistent Unexplained Julián Edouard M.D. [facility] Procedures Enema Prep [address] [place] [address] Referral ID Status Reason Start Date Expiration Date Visits Requ ested Visits Authorized [id number] Closed 11/26/2020 11/26/2021 1 1 Outpatient (Routine) - Closed Specialty Diagnoses / Procedures Referred By Contact Refer red To Contact Diagnoses Diarrhea Persistent Unexplained Julián Edouard M.D. [facility] Procedures Anorectal Manometry [address] [place], [place] [phone] Referral ID Status Reason Start Date Expiration Date Visits Requ ested Visits Authorized [id number] Closed 11/26/2020 11/26/2021 1 1 Reason for Visit Outpatient (Routine) - Closed Specialty Diagnoses / Referred By Referred To Cont act Procedures Contact Gastroenterology and Julián Eoduard [facility] Alex [address] [place] [address] Referral ID Status Reason Start Date Expiration Date Visits Requ ested Visits Authorized [id number] Closed 08/19/2020 08/19/2021 1 1 Encounter Details Date Type Department Care Team Description 11/26/2020 Office Visit Division of Sb Edouard Gastroenterology in Julián Narayan M.D. Unexplained (Primary [place], [place] [address] [facility]) [address] [place] [phone] Social History Tobacco Use Types Packs/Day Years [...] or relatives? How often do you attend hindu or More than 4 times per year 11/16/2021 worship services? Do you belong to any clubs or No 11/16/2021 organizations such as hindu groups, unions, fraternal or athletic groups, or [...] minutes do you engage in exercise at is 0 min 11/16/2021 level? Stress Answer [...] place to sleep or slept in a long-term (including now)? Education Answer Date Recorded What is the highest level of school you have Some college, n o degree 01/02/2019 completed or the highest degree you have received? Sex Assigned at Date Recorded Female 01/25/2018 11:49 AM CDT documented as of this encounter Consult Notes Julián Edouard M.D. - 11/26/2020 11:20 AM CDT ASSESSMENT / PLAN Ms. Diaz returns having had her procedures. The colonoscopy was essentially unremarkable. The upper endoscopy, however, does demonstrate grade C esophagitis. This is interesting considering that she states her previous esophagogastroduodenoscopy was normal in April of 2020. The lap band had been removed in the past. 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 Given that she is on no medicine because she did not feel that any of it helped in the past, we will aggressively treat her with b.i.d. PPI, Carafate, and H2 lorri at night and see how this works. If it does not have any significant impact, Iasked that she contact me in 1 month. We would schedule her for a repeat esophagogastroduodenoscopy to see what it is like on maximal therapy and then do a gastric emptying scan and an esophageal manometry to further evaluate her motility and whether she would be even a candidate for fundoplication inthe future. She also complains of intermittent loose stool and did not follow through in the past on pelvic floor assessment. She would like to do that at this time, and I have gone ahead and scheduled her for that. Julián Edouard M.D. CT CT Job ID: [id number]/[facility] documented in this encounter Plan of Treatment Upcoming Encounters Date Type Specialty Care Team Description 01/08/2022 Appointment Radiology Julián Edouard M.D. [address] [place] [phone] (Wo rk) 01/08/2022 Ancillary Procedure Cardiovascular Disease Julián Edouard M.D. [address] [place] [phone] (Wo rk) 01/08/2022 Comprehensive Visit Thoracic Surgery Tess Raphael M.D. [address] [place] [address] (Wo rk) Scheduled Orders Name Type Priority Associated Diagnoses Order S chedule Enema Prep Procedures Routine Diarrhea Persistent Expected : 11/26/2020 Unexplained (Approximate), Expires: 11/27/2023 documented as of this encounter Results Anorectal Manometry (12/15/2020 5:04 PM CDT) Narrative This result has an attachment that is no t available. Julián Edouard M.D. GI PROCEDURE ORDERABLES Performing Organization Address City/State/ZIP Code Phon e Number [facility] documented in this encounter Visit Diagnoses Diagnosis Diarrhea Persistent Unexplained - Primar y documented in this encounter Additional Health Concerns Assessment Noted Time PHQ-9 Depression Total Score: 15 04/21/2018 1:00 PM CS T documented as of this encounter Care Teams Line Staker Relationship Specialty Start Date End Date Elsewhere, Pcp PCP - General Internal Medicine 10/22/19 documented as of this encounter
--- OUTSIDE RECORDS SUMMARY | 2022-01-08 10:39 | XMS_ITS | Encounter Summary ---
:1970 Author Organization [facility] Address [address] [place] [address] Care Team Providers Name Role Phone Elsewhere, Pcp Primary Care Provider Unavailable Encounter Details Date Type Department Care Team Description 11/27/2020 Orders Only Division of Velma Munson Arthritis In [facility] Rheumatology in , SUPPLIES PACKER, C.N.P. ([facility]) (Primary Dx) [place], [place] [address] [facility] [address] [place] [phone] Social History Tobacco Use Types Packs/Day Years [...] or relatives? How often do you attend mormon or More than 4 times per year 11/16/2021 amish services? Do you belong to any clubs or No 11/16/2021 organizations such as mormon groups, unions, fraternal or athletic groups, or [...] Appointment Radiology Julián Edouard M.D. [address] [place] [phone] (Wo rk) 01/08/2022 Ancillary Procedure Cardiovascular Disease Julián Edouard M.D. [address] [place] [phone] (Wo rk) 01/08/2022 Comprehensive Visit Thoracic Surgery Tess Raphael M.D. [address] [place] [phone] (Wo rk) documented as of this encounter Results Cyclic Citrullinated Peptide Antibodies, IgG (02/05/2021 2:08 PM CDT) Analysis Performed At Patho logist Time Signature Cyclic <15.6 <20.0 02/06/2021 [facility] Citrullinated (Negative) 12:19 PM CDT Peptide Ab, S U Specimen Anatomical Collection Method Collection Time Receive d Time (Source) Location / / Volume Laterality Blood (Blood, 02/05/2021 2:08 PM 02/07/20 21 7:11 Venous) CDT AM CDT Velma Munson APRN, C.N.P. LAB BLOOD ADD-ON Performing Organization Address City/State/ZIP Code Phon e Number [facility] [address] [place], [place] [address] [facility] [place] [address] Laboratory Medicine and Pathology [address] [place] [address] Dr. LOPEZ (ABNORMAL) Rheumatoid Factor (02/05/2021 2:08 PM CDT) athologist [facility] Rheumatoid 18 (H) <15 IU/mL 02/06/2021 [facility] Factor, S 9:11 AM CDT Specimen Anatomical Collection Method Collection Time Receive d Time (Source) Location / / Volume Laterality Blood (Blood, 02/05/2021 2:08 PM 02/07/20 21 8:39 Venous) CDT AM CDT Velma Munson APRN, Karlene.N.P. LAB BLOOD ADD-ON Performing Organization Address City/[facility] Phon e Number [facility] [address] [place] [address] [facility] [place] [address] Laboratory Medicine and Pathology [address] [place] [address] Dr. LOPEZ DNA Double-Stranded (dsDNA) Antibodies, IgG (02/05/2021 2:08 PM CDT) athologist [facility] DNA <1 <=4 02/06/2021 [facility] Double-Stranded (Negative) 3:07 PM CDT Ab, IgG, S IU/mL Specimen Anatomical Collection Method Collection Time Receive d Time (Source) Location / / Volume Laterality Blood (Blood, 02/05/2021 2:08 PM 02/06/20 21 9:38 Venous) CDT PM CDT Velma Munson APRN, C.N.P. LAB BLOOD ADD-ON Performing Organization Address City/[facility] Phon e Number [phone] [facility] [place] [place] [address] [address] Antibody to Extractable Nuclear Antigen Evaluation (02/05/2021 2:08 PM CDT) athologist Signature SS-A/Ro Ab, <0.2 <1.0 02/06/2021 [facility] IgG, S (Negative) 3:07 PM CDT U SS-B/La Ab, <0.2 <1.0 02/06/2021 [facility] IgG, S (Negative) 3:07 PM CDT U Sm Ab, IgG, S <0.2 <1.0 02/06/2021 [facility] (Negative) 3:07 PM CDT U BUSHEL GIRL Ab, IgG, S <0.2 <1.0 02/06/2021 [facility] (Negative) 3:07 PM CDT U Scl 70 Ab, IgG, <0.2 <1.0 02/06/2021 ECLR S (Negative) 3:07 PM CDT U Aria 1 Ab, IgG, S <0.2 <1.0 02/06/2021 ECL[facility] (Negative) 3:07 PM CDT U Specimen Anatomical Collection Method Collection Time Receive d Time (Source) Location / / Volume Laterality Blood (Blood, 02/05/2021 2:08 PM 02/06/20 9:38 Venous) CDT PM CDT Velma Munson APRN, C.N.P. LAB BLOOD ADD-ON Performing Organization Address City/[facility] Phon e Number [address] [phone] [facility] [place] [place] [address] System [address] (ABNORMAL) Antinuclear Antibodies, HEp-2 Substrate, IgG, Serum (02/05/2021 2:08 PM CDT) [facility] Method Time Signature Antinuclear Ab Positive (A) Negative 02/09/2021 ECLR Screen by IFA, 8:06 AM CDT S Comment: MADELEINE screen positive, titer and pattern r esults to follow on next scheduled testing date. Specimen Anatomical Collection Method Collection Time Receive d Time (Source) Location / / Volume Laterality Blood (Blood, 02/05/2021 2:08 PM 02/06/20 9:38 Venous) CDT PM CDT Velma Munson APRN, C.N.P. LAB BLOOD ADD-ON Performing Organization Address City/[facility]/ZIP [facility] Phon e Number [phone] [facility] [place] [address] System [address] documented in this encounter Visit Diagnoses Diagnosis Arthritis Inflammatory (HCC) - Primary documented in this encounter Additional Health Concerns Assessment Noted Time PHQ-9 Depression Total Score: 15 04/21/2018 1:00 PM CS T documented as of this encounter Care Teams Repertoire Manager Relationship Specialty Start Date End Date Elsewhere, Pcp PCP - General Internal Medicine 10/22/19 documented as of this encounter
--- OUTSIDE RECORDS SUMMARY | 2022-01-08 10:39 | XMS_ITS | Encounter Summary ---
:1970 Author Organization [facility] Address [address] [place] [address] Care Team Providers Name Role Phone Elsewhere, Pcp Primary Care Provider Unavailable Reason for Visit Reason Comments Med Refill Encounter Details Date Type Department Care Team Description 12/18/2020 Refill Division of Gastroenterology in Julián Edouard Med Refill [place], [place] Alex [address] [facility] [address] [place] [address] [place], [place] [phone] (Wo rk) Social History Tobacco Use Types [...] or relatives? How often do you attend evangelical or More than 4 times per year 11/16/2021 presybeterian services? Do you belong to any clubs or No 11/16/2021 organizations such as evangelical groups, unions, fraternal or athletic groups, or [...] documented as of this encounter Progress Notes Julián Edouard M.D. - 12/18/2020 3:11 PM CDT Ms. Diaz underwent anorectal manometry which showed evidence for pelvic floor dysfunction with an inability to pass the balloon. She is interested in possibly pursuing pelvic floor retraining if her insurance will cover it. I am placing the order and will see what is covered or not. Regarding her dyspeptic complaints, those have completely resolved on her current management regimen. Linzess in the past caused her diarrhea, and she is not happy with the results of MiraLAX, so we will see about the pelvic floor retraining. Julián Edouard M.D. CT CT Job ID: [id number] documented in this encounter Plan of Treatment Upcoming Encounters Date Type Specialty Care Team Description 01/08/2022 Appointment Radiology Julián Edouard M.D. [address] [place] [address] (Earl dowd) 01/08/2022 Ancillary Procedure Cardiovascular Disease Julián Edouard M.D. [address] [place] [address] (Earl dowd) 01/08/2022 Comprehensive Visit Thoracic Surgery Tess Raphael M.D. [address] [place] [phone] (Wo rk) documented as of this encounter Visit Diagnoses Not on filedocumented in this encounter Additional Health Concerns Assessment Noted Time PHQ-9 Depression Total Score: 15 04/21/2018 1:00 PM CS T documented as of this encounter Care Teams Personal Carer Relationship Specialty Start Date End Date Elsewhere, Pcp PCP - General Internal Medicine 10/22/19 documented as of this encounter
--- OUTSIDE RECORDS SUMMARY | 2022-01-08 10:39 | XMS_ITS | Encounter Summary ---
:1970 Author Organization [facility] Address [address] [place] [address] Care Team Providers Name Role Phone Elsewhere, Pcp Primary Care Provider Unavailable Reason for Referral Physical Therapy (Routine) - Closed Specialty Diagnoses / Procedures Referred By Contact Refer red To Contact Diagnoses Constipation Julián Edouard M.D. [facility] Procedures PMR Pelvic floor & bowel/bladder rehab [address] [place] [phone] Referral ID Status Reason Start Date Expiration Date Visits Requ ested Visits Authorized [id number] Closed 12/18/2020 12/18/2021 1 1 Encounter Details Date Type Department Care Team Description 12/18/2020 Orders Only Division of Jose Edouard ([facility] in Julián Narayan M.D. Dx) [place], [place] [address] [facility] [address] [place] [phone] Social History Tobacco Use Types Packs/Day Years [...] or relatives? How often do you attend worship or More than 4 times per year 11/16/2021 rastafarian services? Do you belong to any clubs or No 11/16/2021 organizations such as worship groups, unions, fra[employer]ent the Runway or athletic groups, or school groups? How [...] Appointment Radiology Julián Edouard M.D. [address] [place] [phone] (Earl dowd) 01/08/2022 Ancillary Procedure Cardiovascular Disease Julián Edouard M.D. [address] [place] [phone] (Earl dowd) 01/08/2022 Comprehensive Visit Thoracic Surgery Tess Raphael M.D. [address] [place] [phone] (Earl dowd) documented as of this encounter Visit Diagnoses Diagnosis Constipation - Primary documented in this encounter Additional Health Concerns Assessment Noted Time PHQ-9 Depression Total Score: 15 04/21/2018 1:00 PM CS T documented as of this encounter Care Teams Photo Manager Relationship Specialty Start Date End Date Elsewhere, Pcp PCP - General Internal Medicine 10/22/19 documented as of this encounter
--- OUTSIDE RECORDS SUMMARY | 2022-01-08 10:39 | XMS_ITS | Encounter Summary ---
:1970 Author Organization [facility] Address [address] [place] [address] Care Team Providers Name Role Phone Elsewhere, Pcp Primary Care Provider Unavailable Encounter Details Date Type Department Care Team Description 11/26/2020 Hospital Encounter Department of Velma Munson ation Therapy Laboratory Medicine LONG Schwartz, C.N .P. Churn Tender Not and Pathology, [address] [place] [address] in [facility] [phone] [place] [phone] [place] [address] (Work) [place], [place] [phone] (Fax) [phone] Social History Tobacco Use Types Packs/Day Years [...] More than 4 times per year 11/16/2021 mosque services? Do you belong to any clubs [...] feine (EXCEDRIN MIGRAINE mouth as needed. ORAL) dextroamphetamine-ampheta Take 45 mg by mouth 0 [...] (PROTONIX) Take 1 tablet (40 60 tablet 11/26 40 mg EC tablet mg total) [...] every evening. folic acid 1 mg Take 1 tablet (1 mg 90 tablet 1 07/17/2020 11/27/2020 tabletIndications: total) by mouth Arthritis Inflammatory daily. ([facility]) hydrOXYchloroQUINE Take 1-2 tablets 135 tablet 3 05/27/2020 06/01/2021 (PLAQUENIL) 200 mg (200-400 mg total) tabletIndications: by mouth daily. Arthritis Inflammatory Take 2 tab on even (HCC) days, 1 on odd. methotrexate 25 mg/mL Inject 0.8 mL (20 10 mL 1 021 11/27/2020 injectionIndications: mg total) under the Arthritis Inflammatory skin once a week. ([facility]) [id number] Drink 1st portion 1 box(es) 0 10/07/20202021 [id number] of prep at 6 PM the (MOVIPREP) [...] Appointment Radiology Julián Edouard M.D. [address] [place] [address] (Wo rk) 01/08/2022 Ancillary Procedure Cardiovascular Disease Julián Edouard M.D. [address] [place] [phone] (Wo rk) 01/08/2022 Comprehensive Visit Thoracic Surgery Tess Raphael M.D. [address] [place] [phone] (Wo rk) documented as of this encounter Procedures Procedure Name Priority Date/Time Associated Diagnosis Comme nts CBC WITH DIFFERENTIAL, B Routine 11/26/2020 11:50 Medication T herapy Results for this AM CDT Churn Tender Not procedure are in Anticoagulant the results section. ASPARTATE Routine 11/26/2020 11:50 Medication Therapy Resul ts for this AMINOTRANSFERASE (AST), AM CDT Churn Tender Not pro cedure are in S/P Anticoagulant the results section. CREATININE WITH EGFR, Routine 11/26/2020 11:50 Medication Ther apy Results for this S/P AM CDT Churn Tender Not procedure are in Anticoagulant the results section. documented in this encounter Results Creatinine with Estimated GFR (11/26/2020 11:50 AM CDT) athologist Signature Creatinine 0.82 0.59 - 11/26/2020 DTL 1.04 mg/dL 1:22 PM CDT eGFR-Non 85 >=60 11/26/2020 DTL Black/ mL/min/BSA 1:22 PM CDT Cypriot Comment: ----ADDITIONAL INFORMATION---- Estimated GFR calculated using the 2009 CKD_EPI creatinine equation. eGFR-Black/ >90 >=60 mL/min/BSA 2020 1:22 PM CDT DTL Comment: ----ADDITIONAL INFORMATION---- Estimated GFR calculated using the 2009 CKD_EPI creatinine equation. Specimen Anatomical Collection Method Collection Time Receive d Time (Source) Location / / Volume Laterality Blood (Blood, 11/26/2020 11:50 11/26/2020 Venous) AM CDT 12:23 PM CDT Velma Munson APRN, C.N.P. LAB BLOOD ADD-ON Performing Organization Address City/State/ZIP Code Phon e Number [facility] - 200 [place], [place] [address] [place] [address] Laboratories-[address] AST (Aspartate Aminotransferase) (11/26/2020 11:50 AM CDT) Patholo gist Method Time Signature Aspartate 28 8 - 43 11/26/2020 DTL Aminotransferase U/L 1:22 PM CDT (AST), S Specimen Anatomical Collection Method Collection Time Receive d Time (Source) Location / / Volume Laterality Blood (Blood, 11/26/2020 11:50 11/26/2020 Venous) AM CDT 12:23 PM CDT Velma Munson APRN, C.N.P. LAB BLOOD ADD-ON Performing Organization Address City/[facility] Phon e Number [facility] - 200 [place], [place] [address] [place] [address] Laboratories-[address] CBC with Differential, Blood (11/26/2020 11:50 AM CDT) P athologist Signature Hemoglobin 14.0 11.6 - 11/26/2020 DTL 15.0 g/dL 12:27 PM CDT Hematocrit 43.5 35.5 - 11/26/2020 DTL 44.9 % 12:27 PM CDT Erythrocytes 4.98 3.92 - 11/26/2020 DTL 5.13 12:27 PM CDT x10(12)/L MCV 87.3 78.2 - 11/26/2020 DTL 97.9 fL 12:27 PM CDT RBC Distrib Width 14.6 12.2 - 11/26/2020 DTL 16.1 % 12:27 PM CDT Platelet Count 270 157 - 371 11/26/2020 DTL x10(9)/L 12:27 PM CDT Leukocytes 7.0 3.4 - 9.6 11/26/2020 DTL x10(9)/L 12:27 PM CDT Neutrophils 4.77 1.56 - 11/26/2020 DTL 6.45 12:27 PM CDT x10(9)/L Lymphocytes 1.70 0.95 - 11/26/2020 DTL 3.07 12:27 PM CDT x10(9)/L Monocytes 0.42 0.26 - 11/26/2020 DTL 0.81 12:27 PM CDT x10(9)/L Eosinophils 0.03 0.03 - 11/26/2020 DTL 0.48 12:27 PM CDT x10(9)/L Basophils 0.03 0.01 - 11/26/2020 DTL 0.08 12:27 PM CDT x10(9)/L Specimen Anatomical Collection Method Collection Time Receive d Time (Source) Location / / Volume Laterality Blood (Blood, 11/26/2020 11:50 11/26/2020 Venous) AM CDT 12:17 PM CDT Velma Munson APRN C.N.P. LAB BLOOD ADD-ON Performing Organization Address City/State/ZIP Code Phon e Number [facility] - [address] [place], [place] [address] [facility] [place] [address] Laboratories-[facility] [address] documented in this encounter Visit Diagnoses Diagnosis Medication Therapy [facility] Not Anticoa gulant documented in this encounter Additional Health Concerns Assessment Noted Time PHQ-9 Depression Total Score: 15 04/21/2018 1:00 PM CS T documented as of this encounter Care Teams Special Inspector Relationship Specialty Start Date End Date Elsewhere, Pcp PCP - General Internal Medicine 10/22/19 documented as of this encounter
--- OUTSIDE RECORDS SUMMARY | 2022-01-08 10:39 | XMS_ITS | Encounter Summary ---
:1970 Author Organization [facility] Address [address] [place] [address] Care Team Providers Name Role Phone Elsewhere, Pcp Primary Care Provider Unavailable Reason for Referral Outpatient (Routine) - Closed Specialty Diagnoses / Procedures Referred By Contact Refer red To Contact Rheumatology Velma Munson APRN, [facility] C[facility] [address] [place] [address] Referral ID Status Reason Start Date Expiration Date Visits Requ ested Visits Authorized [id number] Closed 03/04/2021 03/04/2022 1 1 Physical Therapy (Routine) - Authorized Specialty Diagnoses / Procedures Referred By Contact Refer red To Contact Diagnoses Arthritis Inflammatory (HCC) Pain Low Back Chronic Velma Munson APRN, C.N.P. 200 [place] [phone] Referral ID Status Reason Start Expiration Visits Visits Date Date Requested Authorized [id number] Authorized Patient 03/04/2021 03/04/2022 1 1 Preference Reason for Visit Appointment Request (Routine) - Closed Specialty Diagnoses / Procedures Referred By Contact Refer red To Contact Rheumatology Diagnoses Arthritis Inflammatory (HCC) Velma Munson APRN, C.N.P. [address] [place] [phone] Referral ID Status Reason Start Date Expiration Date Visits Requ ested Visits Authorized [id number] Closed 12/01/2020 12/01/2021 1 1 Encounter Details Date Type Department Care Team Description 03/04/2021 Office Visit Division of Velma Munson Arthritis In flammatory (HCC) (Primary Dx); Rheumatology in L, ELECTRONICS TECH, C.N.P. Pain Low Back Chronic; [place], [place] 200 [facility] High Risk Medication 200 [place] [phone] Social History Tobacco Use Types Packs/Day Years [...] or relatives? How often do you attend yazdanism or More than 4 times per year 11/16/2021 orthodox services? Do you belong to any clubs or No 11/16/2021 organizations such as yazdanism groups, unions, fraternal or athletic groups, or [...] place to sleep or slept in a usp (including now)? Education Answer Date Recorded What is the highest level of school you have Some college, n o degree 01/02/2019 completed or the highest degree you have received? Sex Assigned at Date Recorded Female 01/25/2018 11:49 AM CDT documented as of this encounter Last Filed Vital Signs Vital Sign Reading Time Taken Comments Blood Pressure 142/96 03/04/2021 10:40 AM CDT Pulse 92 03/04/2021 10:40 AM CDT Temperature 37.1 ??C (98.8 ??F) 03/04/2021 10:40 AM CDT Respiratory Rate - - Oxygen Saturation - - Inhaled Oxygen Concentration - - Weight 75.9 kg (167 lb 5.3 oz) 03/04/2021 10:40 AM CDT Height 158.3 cm (5' 2.32) 03/04/2021 10:40 AM CDT Body Mass Index 30.29 03/04/2021 10:40 AM CDT documented in this encounter Progress Notes Velma Munson, LONG, C.N.P. 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 Shestates that since starting methotrexate her hand symptoms have improved. Over the last few weeks sheis having increased right low back and right lateral hip pain. She is stretching and going to the gym. She is also having bilateral foot pain, but right is worse then left. Her left pinky is also painful. She is getting over a cold. She states that swallowing is better since she is taking Carafate. She needs to do pelvic floor PT to help with abdominal bloating with diarrhea. She continues have Raynaud's in her hands and feet with no ulcerations. She continues take methotrexate 25 mg SQ once weekly,folic acid 2 mg daily, and Plaquenil 200 mg on odd days and 400 mg on even days. Morning stiffness lasts 20 minutes, but the low back lasts all day. She denies any recent flares or hospitalizations. She denies any adverse side effects to Plaquenil or methotrexate. Rheumatoid Arthritis RF +: No CCP +: No AM stiffness: 20 minutes Current Symptoms: diarrhea (IBS), dry mouth, fatigue (good and bad days), Raynaud's syndrome (no digital ulcers), abdominal pain (umbicial pain) and heartburn (maybe just started a antiacid) Current Symptoms: eyes not dry, no fever, no rash (itching on the arms and face), no weight loss, noexcessive bruising, no cough, no chest pain, no edema, no nausea, no vomiting, no anorexia, no chills, no night sweats, no oral ulcers, no eye inflammation and no dyspnea Previous Reports Reviewed:lab reports and office notes The following portions of the patient's history were reviewed and updated as appropriate: family history, medical history, social history, surgical history and problem list. REVIEW OF SYSTEMS Pertinent positives and negatives as documented in the above history of present illness. Constitutional: Positive for fatigue (good and bad days) and loss of appetite. Negative for chills, fever, night sweats, weight gain of more than [...] or cramping (umbicial pain), constipation (IBS), diarrhea (IBS) and heartburn (maybe just started a antiacid). Negative for anorexia, nausea and vomiting. Musculoskeletal: Positive for arthralgias (hands, wrists, right [...] and hips are within functional limits bilaterally. Right trochanteric bursa tender to palpation. Left 1st DIP and right 5thDIP hypertrophy noedBilateral knee crepitus. Lab: CBC with differential, creatinine, GFR, and AST all within normal limits. CRP is 4.8. ESR is normal.MADELEINE 1:160 Homogenous pattern. JUAN JOSE panel negative. RF is 18. CCP is negative. 05/27/2020 07/17/2020 03/04/2021 Tender joint count (0-28) 0 1 2 Swollen joint count (0-28) 0 0 0 Patient global assessment (0-100) 12 12 60 Licensed Marine Engineer global assessment (0-100) 10 20 30 ESR (mm/h) 10 13 17 CRP (mg/L) 3.3 5 4.8 Disease Activity Score 28 using ESR ([id number]) 1.78 2.52 3.62 Disease Activity Score 28 using CRP ([id number]) 1.65 2.33 3.22 Clinical Disease Activity Index (CDAI) 2.2 4.2 11 Simplified Disease Activity Index (SDAI) 2.53 4.7 11.48 ASSESSMENT / PLAN #1 Arthritis Inflammatory (HCC) Overall, I believe she is doing better with the addition of methotrexate. I do not believe the low back and right hip pain is related to her inflammatory arthritis. At this time she will continue methotrexate 25 mg subQ once weekly, folic acid 2 mg daily, and Plaquenil to 400 mg on even days and 200 mg on odd days. For acute pain I did give her oral Toradol 10 mg every 6 hours for max of 5 days. Patient was in agreement with this plan. Prescriptions are currently up-to-date. #2 Low back pain #3 Lumbar radiculopathy At this time I believe her right sided hip pain is coming from her lumbar spine. I have ordered lumbar spine xray and PT to be done in [place]. If she does not respond to the PT and continues to have low back pain we can do EMG and Lumbar MRI. #4 High Risk Medication Last Plaquenil eye exam was March 19, 2020. No eye toxicity noted. She will be due again in March 2021. She will continue laboratory monitoring every 3 [...] Appointment Radiology Julián Edouard M.D. [address] [place] [phone] (Earl dowd) 01/08/2022 Ancillary Procedure Cardiovascular Disease Julián Edouard M.D. [address] [place] [phone] (Earl dowd) 01/08/2022 Comprehensive Visit Thoracic Surgery Tess Raphael M.D. [address] [place] [phone] (Wo rk) Scheduled Referrals Name Type Priority Associated Order Schedule Diagnoses Rheumatology office Outpatient Referral Routine E xpected: visit (clinic) 06/04/2021 (Approximate), Expires: 03/04/2024 documented as of this encounter Results CRP (C-Reactive Protein) (07/13/2021 1:39 PM CDT) P athologist Signature C-Reactive <3.0 <=8.0 mg/L 07/13/2021 CNFL Protein (CRP), 2:10 PM CDT P Specimen Anatomical Collection Method Collection Time Receive d Time (Source) Location / / Volume Laterality Blood (Blood, 07/13/2021 1:39 PM 07/14/19 22 1:40 Venous) CDT PM CDT Velma Munson APRN, C.N.P. LAB BLOOD ADD-ON Performing Organization Address City/[facility]/ZIP Code Phon e Number [facility]- [address] [place] [address] [place] [address] [place] [address] System [address] Sedimentation Rate (07/13/2021 1:39 PM CDT) Analysis [...] Organization Address City/State/ZIP Code Phon e Number [facility]- [address] [place], [place] [address] [place] [address] System in [place] [address] Lumbar Spine 2-3 Views (03/04/2021 12:32 [...] lumbar facet arthropathy. Surgical clips RUQ. IUD. Velma Munson APRN, C.N.P. IMG DIAGNOSTIC IMAGING P ROCEDURES documented in this encounter Visit Diagnoses Diagnosis Arthritis Inflammatory (HCC) - Primary Pain Low Back Chronic High Risk Medication Pain Low Back Chronic documented in this encounter Additional Health Concerns Assessment Noted Time PHQ-9 Depression Total Score: 15 04/21/2018 1:00 PM CS T documented as of this encounter Care Teams Fitting Room Checker Relationship Specialty Start Date End Date Elsewhere, Pcp PCP - General Internal Medicine 10/22/19 documented as of this encounter
--- OUTSIDE RECORDS SUMMARY | 2022-01-08 10:39 | XMS_ITS | Encounter Summary ---
:1970 Author Organization [facility] Address [address] [place] [address] Care Team Providers Name Role Phone Elsewhere, Pcp Primary Care Provider Unavailable Reason for Visit Reason Comments Medication Question Encounter Details Date Type Department Care Team Description 05/08/2021 Clinical Division of Velma Munson Medication Communication Rheumatology in [place], KILN HAND, C.N.P. Question [place], [place] [address] [facility] [address] [place] [phone] Social History Tobacco Use Types Packs/Day Years [...] Encounter - Velma Munson APRN, C.N.P. - 05/08/2021 4:07 PM COMMERCIAL LINES INSURANCE AGENT I would recommend holding the methotrexate until 5 days after his 10 days quarantine. ERCIAL LINES INSURANCE AGENT Telephone Encounter - Justine Weeks M.S.N., R.N. - 05/08/2021 11:21 AM COMMERCIAL LINES INSURANCE AGENT SUBJECTIVE CHIEF COMPLAINT / REASON FOR CALL Medication Question Information Discussed Spoke with patient. She is COVID negative but her spouse has COVID and they are going to be driving in a car to see his mom in [place] who is dying of COVID pneumonia, she wants to know how long to continue to hold her Methotrexate at this time. She is feeling fine. She has been in the same room/house as her spouse and they have not been quarantining from each other, they are also not wearing masksin the house. Reinforced what quarantine is with patient, if her is COVID positive they should not be travelling at this time. Expressed sympathy that her [id number] is in end of life care, however, to prevent the spread of COVID they should quarantine. PLAN Disposition/Recommendation: notified provider and awaiting recommendations Information/Education: patient/caller able to teach back Caller agreeable to plan of care: yes The following references were used: nursing clinical judgement ERCIAL LINES INSURANCE AGENT Telephone Encounter - Ana Maria Bowen - 05/08/2021 9:45 AM CST Caller/authorization: Patient Provider/nurse: Jeimy Reason for call: Patient is calling in because she was holding her Methotrexate as recommended but now her whole family is testing positive for Covid. She tested yesterday and was negative but her tested positive and she will be in close contact with him (in a car) as they both need to drive to see a family member that will soon be passing away. Patient needs to know what to do with Methotrexate and know she will probably end up getting Covid so now needs to know if there is anything else she should be doing with her medications. It makes her nervous as this will mean she will probably be off her Methotrexate for even longer. Follow-up requested: Yes Preferred response (portal/phone): phone - [phone] Appointment office - patient requested to cancel her appointment for today. Thanks! ERCIAL LINES INSURANCE AGENT documented in this encounter Plan of Treatment Upcoming Encounters Date Type Specialty Care Team Description 01/08/2022 Appointment Radiology Julián Edouard M.D. [address] [place] [phone] (Earl dowd) 01/08/2022 Ancillary Procedure Cardiovascular Disease Julián Edouard M.D. [address] [place] [phone] (Earl dowd) 01/08/2022 Comprehensive Visit Thoracic Surgery Tess Raphael M.D. [address] [place] [phone] (Earl dowd) documented as of this encounter Visit Diagnoses Not on filedocumented in this encounter Additional Health Concerns Assessment Noted Time PHQ-9 Depression Total Score: 15 04/21/2018 1:00 PM CS T documented as of this encounter Care Teams Police Lieutenant Relationship Specialty Start Date End Date Elsewhere, Pcp PCP - General Internal Medicine 10/22/19 documented as of this encounter
--- OUTSIDE RECORDS SUMMARY | 2022-01-08 10:39 | XMS_ITS | Encounter Summary ---
:1970 Author Organization [facility] Address [address] [place] [address] Care Team Providers Name Role Phone Elsewhere, Pcp Primary Care Provider Unavailable Reason for Visit Reason Comments Patient Education Methotrexate 8 Week Outpatient (Routine) - Canceled Specialty Diagnoses / Procedures Referred By Contact Refer red To Contact Rheumatology Velma Munson APRN, [place] [facility] C.N.P. [address] [place] [phone] Referral ID Status Reason Start Date Expiration Date Visits V isits Requested Authorized [id number] Canceled 10/31/2020 10/31/2021 1 1 Encounter Details Date Type Department Care Team Description 11/27/2020 Nurse Only Division of Velma Munson APRN, C.N.P. [address] [place] [phone] Patient Education Rheumatology in Irene Andujar R.N. [address] [place] [phone] (Methotrexate 8 Week) [place], [place] [address] [place] [phone] Social History Tobacco Use Types Packs/Day Years [...] or relatives? How often do you attend sikhism or More than 4 times per year 11/16/2021 anglican services? Do you belong to any clubs or No 11/16/2021 organizations such as sikhism groups, unions, fraternal or athletic groups, or [...] documented as of this encounter Progress Notes Irene Andujar R.N. - 11/27/2020 1:00 PM CDT SUBJECTIVE REASON FOR CALL Nurse visit for methotrexate follow-up and education as requested by Velma Munson APRN, SINTIA in note dated 07/17/20. HISTORY OF PRESENT ILLNESS Waleska Diaz has a diagnosis of rheumatoid arthritis. Velma Munson APRN, SINTIA requested nursing assistance with assessment for methotrexate adjustment. The patient is currently taking methotrexate 20 mg and folic acid 1 mg. Patient and/or partner is not currently planning. Patient denies an active infection or illness. ASSESSMENT / PLAN The patient reports continued inflammatory arthritis symptoms, including stiffness and slight swelling in fingers (however she does note this has improved some). She also endorses pain in her hips, feet, and back. . Current pain rating is 5 on a scale of 0-10, located in the R hip, feet, hands, and marti k. The pain is described as stiffness. The pain occurs more in the evening or with overuse. Patient reports morning stiffness lasting 60 minutes The patient completed most recent medication monitoring labs. Labs were within Rheumatology parameters. The patient denies medication side effects. Given her normal labs and lack of side effects but continued joint symptoms, we would recommend a further increase in her Methotrexate dose up to 25mg weekly with repeat labs and follow-up with [facility] next steps. She would also like to increase her folic acid to 2mg daily. She would also like Velma to review the GI notes and see what her thoughts on their treatment recommendations and if she thinks this could be autoimmune related at all. We reviewed methotrexate dosing, when and how to contact the Rheumatology department and importance of medication monitoring labs. documented in this encounter Plan of Treatment Upcoming Encounters Date Type Specialty Care Team Description 01/08/2022 Appointment Radiology Julián Edouard M.D. [address] [place] [phone] (Earl rk) 01/08/2022 Ancillary Procedure Cardiovascular Disease Julián Edouard M.D. [address] [place] [phone] (Earl dowd) 01/08/2022 Comprehensive Visit Thoracic Surgery Tess Raphael M.D. [address] [place] [phone] (Wo rk) documented as of this encounter Visit Diagnoses Diagnosis Arthritis Inflammatory (HCC) documented in this encounter Additional Health Concerns Assessment Noted Time PHQ-9 Depression Total Score: 15 04/21/2018 1:00 PM CS T documented as of this encounter Care Teams Cleaner Assistant Relationship Specialty Start Date End Date Elsewhere, Pcp PCP - General Internal Medicine 10/22/19 documented as of this encounter
--- OUTSIDE RECORDS SUMMARY | 2022-01-08 10:39 | XMS_ITS | Encounter Summary ---
:1970 Author Organization [facility] Address [address] [place] [address] Care Team Providers Name Role Phone Elsewhere, Pcp Primary Care Provider Unavailable Reason for Referral Outpatient (Routine) - Closed Specialty Diagnoses / Procedures Referred By Contact Refer red To Contact Diagnoses Diarrhea Persistent Unexplained Julián Edouard M.D. [facility] Procedures Colonoscopy [address] [place], [place] [phone] Referral ID Status Reason Start Date Expiration Date Visits Requ ested Visits Authorized [id number] Closed 10/07/2020 10/07/2021 1 1 Outpatient (Routine) - Closed Specialty Diagnoses / Procedures Referred By Contact Refer red To Contact Diagnoses Gastroesophageal Reflux Disease Julián Edouard M.D. [facility] Procedures EGD (EsophagoGastroDuodenoscopy) Restricted [address] [place] [address] Referral ID Status Reason Start Date Expiration Date Visits Requ ested Visits Authorized [id number] Closed 08/19/2020 08/19/2021 1 1 Reason for Visit Outpatient (Routine) - Closed Specialty Diagnoses / Procedures Referred By Contact Refer red To Contact Diagnoses Gastroesophageal Reflux Disease Julián Edouard M.D. [facility] Procedures EGD (EsophagoGastroDuodenoscopy) Restricted [address] [place], [place] [address] Referral ID Status Reason Start Date Expiration Date Visits Requ ested Visits Authorized [id number] Closed 08/19/2020 08/19/2021 1 1 Encounter Details Date Type Department Care Team Description 11/19/2020 Hospital Division of Julián Edouard M.D. [address] [place] [phone] Gastroesophageal Reflux Disease; Encounter Gastroenterology in [place], VOIP ENGINEER, POWER DRIVEN BRUSH MAKER, DNAP [address] [place] [phone] Diarrhea Persistent Unexplained [place], [place] [address] [place] [phone] Social History Tobacco Use Types Packs/Day Years [...] or relatives? How often do you attend hoahaoism or More than 4 times per year 11/16/2021 roman catholic services? Do you belong to any clubs or No 11/16/2021 organizations such as hoahaoism groups, unions, fraternal or athletic groups, or [...] Sign Reading Time Taken Comments Blood Pressure 126/78 11/19/2020 11:45 AM CDT Pulse 73 11/19/2020 11:50 AM CDT Temperature 36 ??C (96.8 ??F) 11/19/2020 10:15 AM CDT Respiratory Rate 15 11/19/2020 11:50 AM CDT Oxygen Saturation 98% 11/19/2020 11:50 AM CDT Inhaled Oxygen Concentration - - Weight - - Height - - Body Mass Index - - documented in this encounter Medications at Time of Discharge Medication Sig Dispensed Refills Start Date End Date tranexamic acid (LYSTEDA) Take 650 mg by 0 650 mg tablet mouth daily. acetaminophen (TYLENOL) Take 500 mg by 0 [...] mg by 0 mg tablet mouth daily. SUMAtriptan (IMITREX Inject under the 0 5 STATDOSE) 6 mg/0.5 mL skin as needed. injection pen Uses 2-4x/month for migraine. Uses once and then once again after 1h if no effect. syringe with needle (BD Inject 1 Syringe 12 Syringe 3 2020 Tuberculin Syringe) 1 mL under the skin once 27 x 1/2 syringe a week. For use with weekly Methotrexate injections folic acid 1 mg Take 1 tablet (1 mg 90 tablet 1 07/17/2020 11/27/2020 tabletIndications: total) by mouth Arthritis Inflammatory daily. ([facility]) hydrOXYchloroQUINE Take 1-2 tablets 135 tablet 3 05/27/2020 06/01/2021 (PLAQUENIL) 200 mg (200-400 mg total) tabletIndications: by mouth daily. Arthritis Inflammatory Take 2 tab on even (HCC) days, 1 on odd. methotrexate 25 mg/mL Inject 0.8 mL (20 10 mL 1 021 11/27/2020 injectionIndications: mg total) under the Arthritis Inflammatory skin once a week. ([facility]) [id number] Drink 1st portion 1 box(es) 0 10/07/20202021 [id number] of prep at 6 PM the (MOVIPREP) 100-7.5-2.691 evening before. 2nd gram per packet portion must be started 3 hours before and finished 2 hours prior to report time pilocarpine (SALAGEN) 5 Take 1 tablet (5 mg 90 tablet 5 08/06/2021 mg tabletIndications: total) by mouth 3 Xerostomia (three) times a day. documented as of this encounter Plan of Treatment Upcoming Encounters Date Type Specialty Care Team Description 01/08/2022 Appointment Radiology Julián Edouard M.D. [address] [place] [phone] ([facility] dowd) 01/08/2022 Ancillary Procedure Cardiovascular Disease Julián Edouard M.D. 200 [place] [phone] (Earl dowd) 01/08/2022 Comprehensive Visit Thoracic Surgery Tess Raphael M.D. 200 [place] [phone] (Wo rk) documented as of this encounter Procedures Procedure Name Priority Date/Time Associated Diagnosis Comme nts SURGICAL PATHOLOGY Routine 11/19/2020 9:59 Result s for this AM CDT procedure are i n the results section. COLONOSCOPY Routine 11/19/2020 9:15 Diarrhea Persistent Resul ts for this AM CDT Unexplained procedure are i n the results section. COLONOSCOPY Routine 11/19/2020 9:15 Diarrhea Persistent AM CDT Unexplained EGD Routine 11/19/2020 9:15 Gastroesophageal Reflux (ESOPHAGOGASTRODUOD AM CDT Disease ENOSCOPY) RESTRICTED UPPER GI ENDOSCOPY Routine 11/19/2020 9:15 Gastroesophageal Re flux Results for this AM CDT Disease procedure are i n the results section. documented in this encounter Results Surgical Pathology (11/19/2020 9:59 AM CDT) Component Value Ref Test Analysis Performed At [facility] Range Method Time Signature 11/20/2020 DTL 6:02 PM CDT Participated in Shantell John 11/20/2020 DTL the M.D. 6:02 PM CDT Interpretation -Pathology Fellow Report Mo Dong M.D., [id number] DTL electronically 6:02 PM CDT signed by I verify that I have examined all relevant slides/materials for the specimen(s) and rendered or confirmed the diagnosis. Gross Description Received in formalin labeled with the patient's n manuel, 11/20/2020 DTL medical record number, and colon-biopsy, random sites 6:02 PM CDT (colon) are six pale aragon-pink irregular soft tissues, ranging from 0.3-0.5 cm in greatest dimension. ??Specimens are submitted en toto in cassette A1. ??Grossed by AJG. Interpretation FINAL DIAGNOSIS 11/20/2020 DTL A. ??Colon, random, endoscopic biopsy: ??Colonic mucosa 6:02 PM CDT without diagnostic abnormality. ??No evidence of collagenous or lymphocytic colitis. Specimen (Source) Anatomical Collection Method Collection Time Re ceived Time Location / / Volume Laterality Biopsy (Colon) 11/19/2020 9:59 AM CDT Narrative This result has an attachment that is no t available. Magdalena Hutchins M.D. LAB SURG PATH ORDERABLES Performing Organization Address City/State/ZIP Code Phon e Number [facility] - [address] [place], [place] [address] [facility] [place] [address] [facility] [address] Colonoscopy (11/19/2020 9:15 AM CDT) Specimen (Source) Anatomical Collection Method Collection Time Re ceived Time Location / / Volume Laterality 11/19/2020 9:15 AM CDT Impressions [employer] [facility] - 11/19/2020 10:19 AM CDT Post-op Diagnoses: ? - The entire examined colon is no rmal. Biopsied. ? - The examined portion of the ile um was normal. Narrative [facility] - 11/19/2020 10:19 AM CDT Gonda 2 GI Patient Name: Waleska Diaz Date of : 1970 Age: 49 Gender: Female Procedure Date: 11/19/2020 Procedure: ? Colonosc opy Providers: ? Renetta Hutchins MD Referring Provider: ?Julián temple MD Pre-op Diagnoses: ?Clinically significant diarrhea of unexplained origin Recommendation: ? - The patient will be observed po st-procedure, until all discharge ? criteria are met. ? - Return to referring physician. Findings: ? The colon (entire examined portio n) appeared normal. Biopsies were taken ? with a cold forceps for histology . ? The terminal ileum appeared caro l. Procedural Details: ? The patient was seen, [...] oxygen saturations ? were monitored continuously. The Colonoscope was introduced through the ? anus and advanced to the 5 cm int o the ileum. The colonoscopy was ? performed without difficulty. The patient tolerated the procedure well. ? The quality of the bowel preparat ion was good. The quality of the bowel ? preparation was evaluated using t he BBPS ([place] Bowel Preparation ? Scale) [Segment Scores]. The tota l BBPS score equals 7. The quality of ? the bowel preparation was good. Complications: ? No immedia te complications. Estimated Blood Loss: ?Estimated blo od loss was minimal. Attending Participation: I personally pe rformed the entire procedure. Magdalena Hutchins MD 11/19/2020 10:18:43 AM This report has been signed electronical ly. Number of Addenda: 0 Note Initiated On: 11/19/2020 9:15 AM Julián Edouard M.D. GI PROCEDURE ORDERABLES Performing Organization Address City/State/ZIP Code Phon e Number [facility] NA Upper GI Endoscopy (11/19/2020 9:15 AM CDT) Specimen (Source) Anatomical Collection Method Collection Time Re ceived Time Location / / Volume Laterality 11/19/2020 9:15 AM CDT Impressions [facility] - 11/19/2020 10:16 AM CDT Post-op Diagnoses: ? - LA Grade C ulcerative esophagit is. Lynn not placed. ? - 2 cm hiatal hernia. ? - Normal examined duodenum. ? - No specimens collected. Narrative [facility] - 11/19/2020 10:16 AM CDT Gonda 2 GI Patient Name: Waleska Diaz Date of : 1970 Age: 49 Gender: Female Procedure Date: 11/19/2020 Procedure: ? Upper GI endoscopy Providers: ? Renetta Hutchins MD Referring Provider: ?Julián temple MD Pre-op Diagnoses: ?Heartburn Recommendation: ? - The patient will be observed po st-procedure, until all discharge ? criteria are met. ? - Return to referring physician. Findings: ? LA Grade C (one or more mucosal b reaks continuous between tops of 2 or ? more mucosal folds, less than 75% circumference) esophagitis was found. ? A 2 cm hiatal hernia was present. ? The examined duodenum was normal. Procedural [...] were monitored continuously. The Gastroscope was introduced through the ? mouth, and advanced to the second part of duodenum. The upper GI ? endoscopy was accomplished withou t difficulty. The patient tolerated the ? procedure well. Complications: ? No immedia te complications. Estimated Blood Loss: ?Estimated blo od loss: none. Attending Participation: I personally pe rformed the entire procedure. Magdalena Hutchins MD 11/19/2020 10:16:32 AM This report has been signed electronical ly. Number of Addenda: 0 Note Initiated On: 11/19/2020 9:15 AM Julián Edouard M.D. GI PROCEDURE ORDERABLES Performing Organization Address City/State/ZIP Code Phon e Number [facility] [employer] NA documented in this encounter Visit Diagnoses Diagnosis Gastroesophageal Reflux Disease Diarrhea Persistent Unexplained documented in this encounter Administered Medications Inactive Administered Medications - up to 3 most recent administrations Medication Order MAR Action Action Date Dose Rate Site acetaminophen injection 1,000 New Bag 11/19/2020 11:07 AM 1,000 mg 400 mL/hr mg CDT 1,000 mg, intravenous, at 400 mL/hr, Administer over 15 Minutes, Once as needed, other, If patient has not received in previous 6 hours, Starting on Tue11/19/20 at 1105, For 1 dose, PACU (only), Oral unless RASS less than -1 or nausea/vomiting. Do not use if given in last 6 hours, Restriction Criteria (Pharmacy will review and approve if criteria met): Unable to take or tolerate medications administered via the enteral route or orally (not just NPO) lactated ringers Continued from OR 11/19/2020 10:17 AM 100 mL/hr 100 mL/hr 100 mL/hr, intravenous, CDT Continuous, Starting on Tue11/19/20 at 1000, PACU & Post-Op documented in this encounter Additional Health Concerns Assessment Noted Time PHQ-9 Depression Total Score: 15 04/21/2018 1:00 PM CS T documented as of this encounter Care Teams Information Security Manager Relationship Specialty Start Date End Date Elsewhere, Pcp PCP - General Internal Medicine 10/22/19 documented as of this encounter
--- OUTSIDE RECORDS SUMMARY | 2022-01-08 10:39 | XMS_ITS | Encounter Summary ---
:1970 Author Organization [facility] Address [address] [place] [address] Care Team Providers Name Role Phone Elsewhere, Pcp Primary Care Provider Unavailable Encounter Details Date Type Department Care Team Description 02/05/2021 Hospital Encounter Department of Velma Munson Laboratory Medicine L, LONG, C.N .PLennox Inflammatory (HCC) in [place] [phone] [facility] [phone] [place], [place] (Work) [phone] Social History Tobacco Use [...] mcg total) Arthritis Inflammatory by mouth daily. ([facility]) hydrOXYchloroQUINE Take 1-2 tablets 135 tablet 3 05/27/2020 06/01/2021 (PLAQUENIL) 200 mg (200-400 mg total) tabletIndications: by mouth daily. Arthritis Inflammatory Take 2 tab on even ([facility]) days, 1 on odd. methotrexate 25 mg/mL Inject 1 mL (25 mg 12 mL 1 202005/13/2021 injectionIndications: total) under the Arthritis Inflammatory skin once a week. ([facility]) [id number] Drink 1st portion 1 box(es) 0 10/07/20202021 [id number] of prep at 6 PM the (MOVIPREP) [...] Appointment Radiology Julián Edouard M.D. [address] [place] [address] (Wo rk) 01/08/2022 Ancillary Procedure Cardiovascular Disease Julián Edouard M.D. [address] [place] [phone] (Wo rk) 01/08/2022 Comprehensive Visit Thoracic Surgery Tess Raphael M.D. [address] [place] [phone] (Wo rk) documented as of this encounter Procedures Procedure Name Priority Date/Time Associated Comments Diagnosis ANTINUCLEAR AB, HEP-2, Routine 02/05/2021 2:08 Arthritis Re sults for this SUBSTRATE, S PM CDT Inflammatory (HCC) procedure are in the results section. ANTINUCLEAR AB BY IFA, S Routine 02/05/2021 2:08 Results for this PM CDT procedure are i n the results section. AB TO EXTRACTABLE Routine 02/05/2021 2:08 Arthritis Results for this NUCLEAR AG EVAL, S PM CDT Inflammatory (HCC) pro cedure are in the results section. CYCLIC CITRULLINATED Routine 02/05/2021 2:08 Arthritis Resu lts for this PEPTIDE ABS, IGG, S PM CDT Inflammatory (HCC) pr ocedure are in the results section. DNA DOUBLE-STRANDED Routine 02/05/2021 2:08 Arthritis Resul ts for this (DSDNA) ABS, IGG, S PM CDT Inflammatory (HCC) pr ocedure are in the results section. SEDIMENTATION RATE, B Routine 02/05/2021 2:08 Arthritis Res ults for this PM CDT Inflammatory (HCC) procedure are in the results section. CBC WITH DIFFERENTIAL, B Routine 02/05/2021 2:08 Arthritis Results for this PM CDT Inflammatory (HCC) procedure are in the results section. RHEUMATOID FACTOR, S/P Routine 02/05/2021 2:08 Arthritis Re sults for this PM CDT Inflammatory (HCC) procedure are in the results section. C-REACTIVE PROTEIN Routine 02/05/2021 2:08 Arthritis Result s for this (CRP), S/P PM CDT Inflammatory (HCC) procedure are in the results section. ASPARTATE Routine 02/05/2021 2:08 Arthritis Results for this AMINOTRANSFERASE (AST), PM CDT Inflammatory (HCC ) procedure are in S/P the results section. CREATININE WITH EGFR, Routine 02/05/2021 2:08 Arthritis Res ults for this S/P PM CDT Inflammatory (HCC) procedure are in the results section. documented in this encounter Results (ABNORMAL) Antinuclear Ab by IFA, S (02/05/2021 2:08 PM CDT) [facility] gist Method Time Signature Antinuclear Ab Positive (A) Negative 02/09/2021 ECLR Titer by IFA, S 8:07 AM CDT MADE[place]INE Titer 1:160 02/09/2021 ECLR 8:07 AM CDT M[place]LE[place] Pattern Homogenous 02/09/2021 ECLR 8:07 AM CDT Comment: The Homogenous pattern is associated wit h antibodies to double-stranded DNA, histones, or DNP (DNA-histone complex). This pattern is seen most frequently in systemic lupus erythematosus (SLE) an d drug-induced lupus. Specimen Anatomical Collection Method Collection Time Receive d Time (Source) Location / / Volume Laterality Blood 02/05/2021 2:08 PM 9:38 CDT PM CDT Jorge Polo APRNNLennoxP. LAB BLOOD NON ADD-ON Performing Organization Address City/State/ZIP Code Phon e Number [facility]- [address] [place] [phone] [facility] [place] [address] System in [address] Creatinine with Estimated GFR (02/05/2021 2:08 PM CDT) P athologist Signature Creatinine 0.71 0.59 - 02/05/2021 CNFL 1.04 mg/dL 2:55 PM CDT eGFR-Black/Afric >90 >=60 02/05/2021 CNFL an Yemeni mL/min/BSA 2:55 PM CDT Comment: ----ADDITIONAL INFORMATION---- Estimated GFR calculated using the 2009 CKD_EPI creatinine equation. eGFR Non-Black/ >90 >=60 mL/min/BSA 02/05/2021 2:55 PM CDT CNFL Comment: ----ADDITIONAL INFORMATION---- Estimated GFR calculated using the 2009 CKD_EPI creatinine equation. Specimen Anatomical Collection Method Collection Time Receive d Time (Source) Location / / Volume Laterality Blood (Blood, 02/05/2021 2:08 PM 02/06/20 2:10 Venous) CDT PM CDT Karlene Polo APRN.N.P. LAB BLOOD ADD-ON Performing Organization Address City/State/ZIP Code Phon e Number [address] [address] [place] [address] System in [place] [address] [address] AST (Aspartate Aminotransferase) (02/05/2021 2:08 PM CDT) Patholo gist Method Time Signature Aspartate 19 8 - 43 02/05/2021 CNFL Aminotransferase U/L 2:55 PM CDT (AST), P Specimen Anatomical Collection Method Collection Time Receive d Time (Source) Location / / Volume Laterality Blood (Blood, 02/05/2021 2:08 PM 02/06/20 2:10 Venous) CDT PM CDT Velma Munson APRN, Karlene.N.P. LAB BLOOD ADD-ON Performing Organization Address [facility] Phon e Number [address] [address] [place] [address] System in [place] [address] [address] CRP (C-Reactive Protein) (02/05/2021 2:08 PM CDT) P athologist Signature C-Reactive 4.8 <=8.0 mg/L 02/05/2021 CNFL Protein (CRP), 2:55 PM CDT P Specimen Anatomical Collection Method Collection Time Receive d Time (Source) Location / / Volume Laterality Blood (Blood, 02/05/2021 2:08 PM 02/06/20 2:10 Venous) CDT PM CDT Velma Munson APRN, Karlene.N.P. LAB BLOOD ADD-ON Performing Organization Address City/[facility]/ZIP Code Phon e Number [address] [address] [facility] [place] [place] [address] System in [place] [address] [address] Sedimentation Rate (02/05/2021 2:08 PM CDT) Analysis Performed At Patho logist Time Signature Sedimentation 17 0 - 29 02/05/2021 RDWG Rate, B mm/1 h 9:11 PM CDT Specimen Anatomical Collection Method Collection Time Receive d Time (Source) Location / / Volume Laterality Blood (Blood, 02/05/2021 2:08 PM 02/06/20 2:10 Venous) CDT PM CDT oJrge Polo APRNNSandra LAB BLOOD ADD-ON Performing Organization Address City/State/ZIP Code Phon e Number [facility]- [address] [place] [phone] [place] [address] System in [address] CBC with Differential, Blood (02/05/2021 2:08 PM CDT) P athologist Signature Hemoglobin 14.5 11.6 - 02/05/2021 CNFL 15.0 g/dL 2:30 PM CDT Hematocrit 43.5 35.5 - 02/05/2021 CNFL 44.9 % 2:30 PM CDT Erythrocytes 5.07 3.92 - 02/05/2021 CNFL 5.13 2:30 PM CDT x10(12)/L MCV 85.8 78.2 - 02/05/2021 CNFL 97.9 fL 2:30 PM CDT RBC Distrib Width 14.4 12.2 - 02/05/2021 CNFL 16.1 % 2:30 PM CDT Platelet Count 287 157 - 371 02/05/2021 CNFL x10(9)/L 2:30 PM CDT Leukocytes 8.4 3.4 - 9.6 02/05/2021 CNFL x10(9)/L 2:30 PM CDT Neutrophils 6.23 1.56 - 02/05/2021 CNFL 6.45 2:30 PM CDT x10(9)/L Lymphocytes 1.71 0.95 - 02/05/2021 CNFL 3.07 2:30 PM CDT x10(9)/L Monocytes 0.40 0.26 - 02/05/2021 CNFL 0.81 2:30 PM CDT x10(9)/L Eosinophils 0.03 0.03 - 02/05/2021 CNFL 0.48 2:30 PM CDT x10(9)/L Basophils 0.02 0.01 - 02/05/2021 CNFL 0.08 2:30 PM CDT x10(9)/L Specimen Anatomical Collection Method Collection Time Receive d Time (Source) Location / / Volume Laterality Blood (Blood, 02/05/2021 2:08 PM 02/06/20 21 2:10 Venous) CDT PM CDT Jorge Polo APRNN.P. LAB BLOOD ADD-ON Performing Organization Address City/[facility] Phon e Number [address] [address] [place] [address] System [address] Cyclic Citrullinated Peptide Antibodies, IgG (02/05/2021 2:08 PM CDT) Analysis Performed At Patho logist Time Signature Cyclic <15.6 <20.0 02/06/2021 [facility] Citrullinated (Negative) 12:19 PM CDT Peptide Ab, S U Specimen Anatomical Collection Method Collection Time Receive d Time (Source) Location / / Volume Laterality Blood (Blood, 02/05/2021 2:08 PM 02/07/20 21 7:11 Venous) CDT AM CDT Velma Munson APRN, Karlene.N.P. LAB BLOOD ADD-ON Performing Organization Address City/State/[facility] Code Phon e Number [facility] [address] [place] [address] [facility] [place] [address] Laboratory Medicine and Pathology [address] LOPEZ (ABNORMAL) Rheumatoid Factor (02/05/2021 2:08 PM CDT) P athologist Signature Rheumatoid 18 (H) <15 IU/mL 02/06/2021 SDS Factor, S 9:11 AM CDT Specimen Anatomical Collection Method Collection Time Receive d Time (Source) Location / / Volume Laterality Blood (Blood, 02/05/2021 2:08 PM 02/07/20 21 8:39 Venous) CDT AM CDT Velma Munson APRN, C.N.P. LAB BLOOD ADD-ON Performing Organization Address City/State/ZIP Code Phon e Number [facility] [address] [place], [place] [address] [place] [address] [place] [address] Laboratory Medicine and Pathology [address] LOPEZ DNA Double-Stranded (dsDNA) Antibodies, IgG (02/05/2021 2:08 PM CDT) athologist Signature DNA <1 <=4 02/06/2021 ECLR Double-Stranded (Negative) 3:07 PM CDT Ab, IgG, S IU/mL Specimen Anatomical Collection Method Collection Time Receive d Time (Source) Location / / Volume Laterality Blood (Blood, 02/05/2021 2:08 PM 02/06/20 21 9:38 Venous) CDT PM CDT Velma Munson APRN, C.N.P. LAB BLOOD ADD-ON Performing Organization Address City/[facility] Phon e Number [facility]- [address] [place] [phone] [facility] [place] [address] System in [address] Antibody to Extractable Nuclear Antigen Evaluation (02/05/2021 2:08 PM CDT) athologist Signature SS-A/Ro Ab, <0.2 <1.0 02/06/2021 ECLR IgG, S (Negative) 3:07 PM CDT U SS-B/La Ab, <0.2 <1.0 02/06/2021 ECLR IgG, S (Negative) 3:07 PM CDT U Sm Ab, IgG, S <0.2 <1.0 02/06/2021 ECLR (Negative) 3:07 PM CDT U CUTTING TABLE OPERATOR Ab, IgG, S <0.2 <1.0 02/06/2021 ECLR [...] C.N.P. LAB BLOOD ADD-ON Performing Organization Address [facility] Phon e Number [address] [phone] [facility] [place] [address] System in [address] (ABNORMAL) Antinuclear Antibodies, HEp-2 Substrate, IgG, Serum (02/05/2021 2:08 PM CDT) [facility] Method Time Signature Antinuclear Ab Positive (A) [...] C.N.P. LAB BLOOD ADD-ON Performing Organization Address [facility] Phon e Number [address] [phone] [facility] [place] [address] System in [address] documented in this encounter Visit Diagnoses Diagnosis Arthritis Inflammatory (HCC) documented in this encounter Additional Health Concerns Assessment Noted Time PHQ-9 Depression Total Score: 15 04/21/2018 1:00 PM CS T documented as of this encounter Care Teams Enterprise Account Executive Relationship Specialty Start Date End Date Elsewhere, Pcp PCP - General Internal Medicine 10/22/19 documented as of this encounter
--- OUTSIDE RECORDS SUMMARY | 2022-01-08 10:39 | XMS_ITS | Encounter Summary ---
:1970 Author Organization [facility] Address [address] [place] [address] Care Team Providers Name Role Phone Elsewhere, Pcp Primary Care Provider Unavailable Reason for Referral Outpatient (Routine) - Closed Specialty Diagnoses / Procedures Referred By Contact Refer red To Contact Diagnoses Diarrhea Persistent Unexplained Julián Edouard M.D. [facility] Procedures Anorectal Manometry [address] [place] [address] Referral ID Status Reason Start Date Expiration Date Visits Requ ested Visits Authorized [id number] Closed 11/26/2020 11/26/2021 1 1 Reason for Visit Outpatient (Routine) - Closed Specialty Diagnoses / Procedures Referred By Contact Refer red To Contact Diagnoses Diarrhea Persistent Unexplained Julián Edouard M.D. [facility] Procedures Anorectal Manometry [address] [place] [address] Referral ID Status Reason Start Date Expiration Date Visits Requ ested Visits Authorized [id number] Closed 11/26/2020 11/26/2021 1 1 Encounter Details Date Type Department Care Team Description 12/11/2020 Hospital Encounter Division of [facility] Persistent Gastroenterology in Julián Narayan M.D. [place], [place] [address] [place] [address] [facility] [phone] Social History Tobacco Use Types Packs/Day Years [...] or relatives? How often do you attend advent or More than 4 times per year 11/16/2021 roman catholic services? Do you belong to any clubs or No 11/16/2021 organizations such as advent groups, unions, fraternal or athletic groups, or [...] folic acid 1 mg Take 2 tablets (2 180 tablet 1 11/27/2020 tabletIndications: mg total) by mouth Arthritis Inflammatory daily. ([facility]) hydrOXYchloroQUINE Take 1-2 tablets 135 tablet 3 05/27/2020 06/01/2021 (PLAQUENIL) 200 mg (200-400 mg total) tabletIndications: by mouth daily. Arthritis Inflammatory Take 2 tab on even (HCC) days, 1 on odd. methotrexate 25 mg/mL Inject 1 mL (25 mg 12 mL 1 202005/13/2021 injectionIndications: total) under the Arthritis Inflammatory skin once a week. ([facility]) [id number] Drink 1st portion 1 box(es) 0 10/07/20202021 [id number] of prep at 6 PM the (MOVIPREP) [...] Radiology Julián Edouard M.D. [address] [place] [phone] (Wo rk) 01/08/2022 Ancillary Procedure Cardiovascular Disease Julián Edouard M.D. [address] [place] [phone] (Wo rk) 01/08/2022 Comprehensive Visit Thoracic Surgery Tess Raphael M.D. [address] [place] [phone] (Wo rk) documented as of this encounter Procedures Procedure Name Priority Date/Time Associated Diagnosis Comme nts ANORECTAL MANOMETRY Routine 12/15/2020 5:04 PM CDT Diarrhea Pe rsistent Unexplained documented in this encounter Results Anorectal Manometry (12/15/2020 5:04 PM CDT) Narrative This result has an attachment that is no t available. Julián Edouard M.D. GI PROCEDURE ORDERABLES Performing Organization Address City/State/ZIP Code Phon e Number MMODAL documented in this encounter Visit Diagnoses Diagnosis Diarrhea Persistent Unexplained documented in this encounter Additional Health Concerns Assessment Noted Time PHQ-9 Depression Total Score: 15 04/21/2018 1:00 PM CS T documented as of this encounter Care Teams Retail Visual Merchandiser Relationship Specialty Start Date End Date Elsewhere, Pcp PCP - General Internal Medicine 10/22/19 documented as of this encounter
--- OUTSIDE RECORDS SUMMARY | 2022-01-08 10:39 | XMS_ITS | Encounter Summary ---
:1970 Author Organization [facility] Address [address] [place] [address] Care Team Providers Name Role Phone Elsewhere, Pcp Primary Care Provider Unavailable Reason for Visit Reason Comments Diarrhea Outpatient (Routine) - Closed Specialty Diagnoses / Procedures Referred By Contact Refer red To Contact Diagnoses Diarrhea Persistent Unexplained Julián Edouard M.D. [facility] Procedures Enema Prep [address] [place] [phone] Referral ID Status Reason Start Date Expiration Date Visits Requ ested Visits Authorized [id number] Closed 11/26/2020 11/26/2021 1 1 Encounter Details Date Type Department Care Team Description 12/04/2020 Clinical Support Enema Prep Facility Julián Edouard M.D. [address] [place] [phone] Diarrhea Persistent in [place], Margi Duckworth M, RLennoxNLennox [address] [place] [phone] [facility] [address] [place] [phone] Social History Tobacco Use Types Packs/Day Years [...] More than 4 times per year 11/16/2021 baptist services? Do you belong to any clubs or No 11/16/2021 organizations such as jew groups, unions, fraUrban Gentleman or athletic groups, or school groups? How [...] AM CDT documented as of this encounter Procedure Notes Margi Duckworth RDeshawn. - 12/04/2020 1:55 PM CDT Patient arrived late to Enema Prep for her Anal Rectal Manometry test. We called up to [facility] and spokewith the nurse as she would not be able to get the enema until 2:25. They told us that she would need to reschedule as they are not able to fit her in the schedule today. Enema was not given. She went to [facility] to reschedule and I gave her a parking pass as this was miscommunication. documented in this encounter Plan of Treatment Upcoming Encounters Date Type Specialty Care Team Description 01/08/2022 Appointment Radiology Julián Edouard M.D. [address] [place] [phone] (Wo rk) 01/08/2022 Ancillary Procedure Cardiovascular Disease Julián Edouard M.D. [address] [place] [phone] (Wo rk) 01/08/2022 Comprehensive Visit Thoracic Surgery Tess Raphael M.D. [address] [place] [address] (Wo rk) documented as of this encounter Visit Diagnoses Diagnosis Diarrhea Persistent Unexplained documented in this encounter Additional Health Concerns Assessment Noted Time PHQ-9 Depression Total Score: 15 04/21/2018 1:00 PM CS T documented as of this encounter Care Teams Civil Preparedness Officer Relationship Specialty Start Date End Date Elsewhere, Pcp PCP - General Internal Medicine 10/22/19 documented as of this encounter
--- OUTSIDE RECORDS SUMMARY | 2022-01-08 10:39 | XMS_ITS | Encounter Summary ---
:1970 Author Organization [facility] Address [address] [place] [address] Care Team Providers Name Role Phone Elsewhere, Pcp Primary Care Provider Unavailable Reason for Visit Reason Comments Med Refill Encounter Details Date Type Department Care Team Description 01/11/2021 Refill Division of Rheumatology in Smita Munson sa, APRN, Med Refill [place], [place] C.N.P. [address] [facility] [address] [place] [phone] [place] [address] [phone] (Wo rk) Social History Tobacco Use Types [...] or relatives? How often do you attend confucianist or More than 4 times per year 11/16/2021 rastafari services? Do you belong to any clubs or No 11/16/2021 organizations such as confucianist groups, unions, fraternal or athletic groups, or [...] Telephone Encounter - Cam Espinoza R.N. - 01/20/2021 7:27 AM CDT Prescription renewal request for folic acid received from pharmacy. HISTORY OF PRESENT ILLNESS Last Rheum visit: 07/17/20 with Velma Munson APRN, CNP Future office visit: ordered, not yet scheduled Last monitoring labs/eye exam: Not required. Prescription request does not match current plan of care. Prescription request does not match a current prescription in the Medication List. Exclusion criteria: None ASSESSMENT/PLAN Prescription request pended for provider review due to requested prescription does not match plan ofcare. dose increase, see 11/27/20 nurse visit and prescription request does not match a current Rx inMedication List. Telephone Encounter - Rosemary Garcia R.N. - 01/19/2021 2:21 PM CDT Online portal message sent to patient to confirm her current dose of Folic acid. Current prescription on file is for Folic Acid 2 mg daily and the refill request from the pharmacy is for 1 mg daily. documented in this encounter Plan of Treatment Upcoming Encounters Date Type Specialty Care Team Description 01/08/2022 Appointment Radiology Julián Edouard M.D. [address] [place] [phone] (Wo rk) 01/08/2022 Ancillary Procedure Cardiovascular Disease Julián Edouard M.D. [address] [place] [address] (Wo rk) 01/08/2022 Comprehensive Visit Thoracic Surgery Tess Raphael M.D. [address] [place] [phone] (Wo rk) documented as of this encounter Visit Diagnoses Diagnosis Arthritis Inflammatory (HCC) documented in this encounter Additional Health Concerns Assessment Noted Time PHQ-9 Depression Total Score: 15 04/21/2018 1:00 PM CS T documented as of this encounter Care Teams Wildlife Veterinarian Relationship Specialty Start Date End Date Elsewhere, Pcp PCP - General Internal Medicine 10/22/19 documented as of this encounter
--- OUTSIDE RECORDS SUMMARY | 2022-01-08 10:39 | XMS_ITS | Encounter Summary ---
:1970 Author Organization [facility] Address [address] [place] [address] Care Team Providers Name Role Phone Elsewhere, Pcp Primary Care Provider Unavailable Reason for Visit Reason Comments Diarrhea Outpatient (Routine) - Closed Specialty Diagnoses / Procedures Referred By Contact Refer red To Contact Diagnoses Diarrhea Persistent Unexplained Julián Edouard M.D. [facility] Procedures Enema Prep [address] [place] [phone] Referral ID Status Reason Start Date Expiration Date Visits Requ ested Visits Authorized [id number] Closed 12/04/2020 12/04/2021 1 1 Encounter Details Date Type Department Care Team Description 12/11/2020 Clinical Support Enema Prep Facility Julián Edouard M.D. [address] [place] [phone] Diarrhea Persistent in [facility] Renee Armendariz, R.NLennox [address] [place] [phone] [facility] [address] [place] [phone] Social History Tobacco Use Types Packs/Day Years [...] or relatives? How often do you attend latter-day or More than 4 times per year 11/16/2021 synagogue services? Do you belong to any clubs or No 11/16/2021 organizations such as latter-day groups, unions, fraTyche or athletic groups, or school groups? How [...] Appointment Radiology Julián Edouard M.D. [address] [place] [phone] (Earl dowd) 01/08/2022 Ancillary Procedure Cardiovascular Disease Julián Edouard M.D. [address] [place] [phone] (Earl dowd) 01/08/2022 Comprehensive Visit Thoracic Surgery Tess Raphael M.D. [address] [place] [phone] (Earl dowd) documented as of this encounter Visit Diagnoses Diagnosis Diarrhea Persistent Unexplained documented in this encounter Additional Health Concerns Assessment Noted Time PHQ-9 Depression Total Score: 15 04/21/2018 1:00 PM CS T documented as of this encounter Care Teams Carding Utility Tender Relationship Specialty Start Date End Date Elsewhere, Pcp PCP - General Internal Medicine 10/22/19 documented as of this encounter
--- OUTSIDE RECORDS SUMMARY | 2022-01-08 10:39 | XMS_ITS | Encounter Summary ---
:1970 Author Organization [facility] Address [address] [place] [address] Care Team Providers Name Role Phone Elsewhere, Pcp Primary Care Provider Unavailable Encounter Details Date Type Department Care Team Description 11/19/2020 Ancillary Procedure Department of Gastroenterology Social History [...] or relatives? How often do you attend restorationism or More than 4 times per year 11/16/2021 buddhism services? Do you belong to any clubs or No 11/16/2021 organizations such as restorationism groups, unions, fraternal or athletic groups, or [...] Appointment Radiology Julián Edouard M.D. [address] [place] [phone] (Wo rk) 01/08/2022 Ancillary Procedure Cardiovascular Disease Julián Edouard M.D. [address] [place] [phone] (Wo rk) 01/08/2022 Comprehensive Visit Thoracic Surgery Tess Raphael M.D. [address] [place] [phone] (Wo rk) documented as of this encounter Procedures Procedure Name Priority Date/Time Associated Comments Diagnosis GASTROENTEROLOGY IMAGE Routine 11/19/2020 9:20 Re sults for this EXAM AM CDT procedure are i n the results section. documented in this encounter Results Colonoscopy-Gastroenterology Image Exam (11/19/2020 9:20 AM CDT) Specimen (Source) Anatomical Collection Method Collection Time Re ceived Time Location / / Volume Laterality 11/19/2020 9:15 AM CDT Narrative [facility] - 11/19/2020 10:29 AM CDT This order has been created and [...] documented as of this encounter Care Teams Driver Engineer Relationship Specialty Start Date End Date Elsewhere, Pcp PCP - General Internal Medicine 10/22/19 documented as of this encounter
--- OUTSIDE RECORDS SUMMARY | 2022-01-08 10:39 | XMS_ITS | Encounter Summary ---
:1970 Author Organization [facility] Address [address] [place] [address] Care Team Providers Name Role Phone Elsewhere, [...] More than 4 times per year 11/16/2021 yarsanism services? Do you belong to any clubs [...] Appointment Radiology Julián Edouard M.D. [address] [place] [phone] (Wo rk) 01/08/2022 Ancillary Procedure Cardiovascular Disease Julián Edouard M.D. [address] [place] [phone] (Wo rk) 01/08/2022 Comprehensive Visit Thoracic Surgery Tess Raphael M.D. [address] [place] [phone] (Wo rk) documented as of this encounter Procedures Procedure Name Priority Date/Time Associated Comments Diagnosis GASTROENTEROLOGY IMAGE Routine 11/19/2020 9:15 Re sults for this EXAM AM CDT procedure are i n the results section. documented in this encounter Results Upper GI endoscopy-Gastroenterology Image Exam (11/19/2020 9:15 AM CDT) Specimen (Source) Anatomical Collection Method Collection Time Re ceived Time Location / / Volume Laterality 11/19/2020 9:15 AM CDT Narrative [facility] - 11/19/2020 10:20 AM CDT This order has been created [...] documented as of this encounter Care Teams Van Helper Relationship Specialty Start Date End Date Elsewhere, Pcp PCP - General Internal Medicine 10/22/19 documented as of this encounter
--- OUTSIDE RECORDS SUMMARY | 2022-01-08 10:39 | XMS_ITS | Encounter Summary ---
:1970 Author Organization [facility] Address [address] [place] [address] Care Team Providers Name Role Phone Elsewhere, Pcp Primary Care Provider Unavailable Encounter Details Date Type Department Care Team Description 11/19/2020 Anesthesia Event Division of Bev Keane, KITCHEN DESIGNER, NACHO, DNAP [address] [place] [phone] [facility] [address] [place] [phone] [place], [place] [address] [place] [phone] Anesthesia Record Procedure Summary Procedure Name Responsible Anesthesia Start Anesthesia Stop Anesthesiologist Time Time EGD Nano Keane, 11/19/20 0924 11/19/20 1015 (ESOPHAGOGASTRODUODE KITCHEN DESIGNER, BOBBIN PRESSER, DNAP NOSCOPY) RESTRICTED Events Date Time Event Comment 11/19/2020 0831 0924 An Start Machine/Equipmen t Checked Infection Precautions Foll owed Procedure/Site Verified NPO Sta tus Verified Supine Standard ASA Mon itors Applied 0932 Turnover to Proceduralist 0937 Proc Start 1005 Proc Fin 1008 Turnover to ANE Staff 1011 an stop data 1015 An End I completed my h andoff to the receiving staff during [facility] we 1. Identified the patient 2. [...] mcg/mL 50 mcg lidocaine 2% (mg) injection 50 mg propofol 10 mg/mL injection 100 mg propofol 10 mg/mL infusion 412 mg ondansetron PF 4 mg/2 mL injection 4 mg Lactated Ringers Free Drip 800 mL Agents No agents on file. Blood No blood administrations on file. Lines, Drains, and Airways Type Details Placement Removal Peripheral IV Placement Date: 11/19/20; 11/19/20 0854 by 11/19 1157 by Davide, Placement Time: 853; Kecia Nicolas R.N. R oger A, R.N. Catheter Size: 20 G; Orientation: Right; Location: Hand; Site Prep: Alcohol; Technique: Anatomical landmarks; Inserted by: MARY ALMANZA; Insertion Attempts: 3; Removal Date: 11/19/20; Removal Time: 1156 documented in this encounter Social History Tobacco [...] or relatives? How often do you attend pentecostalism or More than 4 times per year 11/16/2021 muslim services? Do you belong to any clubs or No 11/16/2021 organizations such as pentecostalism groups, unions, fraternal or athletic groups, or [...] encounter OR Notes Anesthesia Postprocedure Evaluation - Nano Keane APRN, CRNA, DNAP - 11/19/2020 10:20 AMCDT Patient: Waleska Diaz Procedure Summary Date: 11/19/20 Room / Location: Division of Gastroenterology in [place], [place]; Division of Gastroenterology in [place], [place] Anesthesia Start: 923 Anesthesia Stop: 1014 Procedures: EGD (ESOPHAGOGASTRODUODENOSCOPY) RESTRICTED COLONOSCOPY Diagnosis: Gastroesophageal Reflux Disease Diarrhea Persistent Unexplained Scheduled Providers: Nano Keane APRN, CRNA, DNAP Responsible Provider: Nano Keane APRN, CRNA, DNAP Anesthesia Type: MAC ASA Status: 2 Anesthesia Type: MAC Last vitals Vitals Value Taken Time BP 125/82 11/19/20 1015 Temp 36 ??C 11/19/20 1015 Pulse 76 11/19/20 1019 Resp 14 11/19/20 1019 SpO2 99 % 11/19/20 1019 Vitals shown include unvalidated device data. Please [...] Hydration status: euvolemic Anesthesia Preprocedure Evaluation - Ewelina Dean M.D. - 11/19/2020 8:30 AM CDT Preprocedure Anesthesia & H&P Assessment Procedure Summary Date/Time: 11/19/20 2884 Scheduled providers: Nano Keane APRN, NACHO, LOGAN Procedures: EGD (ESOPHAGOGASTRODUODENOSCOPY) RESTRICTED COLONOSCOPY Diagnosis: Gastroesophageal Reflux Disease [K21.9] Diarrhea Persistent Unexplained [R19.7] Location: Division of Gastroenterology in [place], [place]; Division of Gastroenterology in [place], [place] Pertinent components of the patient's history [...] TM Distance: >3 FB Neck ROM: Full Mouth Opening: >3 cm Upper Lip Bite Test Class: I Cardiovascular Rhythm: Regular Rate: Normal Cardiovascular Assessment: cardiovascular normal Functional Capacity: >4 METS Pulmonary Pulmonary Assessment: Clear General / Constitutional Constitutional Assessment: Normal General State of Health:: healthy appearing and calm ASSESSMENT / PLAN ANESTHESIA PLAN ASA: 2 Anesthesia Plan: MAC BMI 31, GERD, diarrhea, rheumatoid arthritis on prednisone. Easy DL at outside facility 09/28/2018. Plan MAC. Patient seen and allergies reviewed, anesthesia plan and risks discussed directly with patient /legal guardian or through an sheet metal insulator. Risks/Benefits/Alternatives of Blood transfusion discussed with patient / legal guardian, including an opportunity to ask questions and/or decline some or all transfusion therapies. The patient / legalguardian consented to the use of all blood products, as deemed medically necessary Approval to Proceed: approved for anesthesia documented in this encounter Plan of Treatment Upcoming Encounters Date Type Specialty Care Team Description 01/08/2022 Appointment Radiology Julián Edouard M.D. [address] [place] [phone] (Wo rk) 01/08/2022 Ancillary Procedure Cardiovascular Disease Julián Edouard M.D. [address] [place] [phone] (Wo rk) 01/08/2022 Comprehensive Visit Thoracic Surgery Tess Raphael M.D. [address] [place] [phone] (Wo rk) documented as of this encounter Visit Diagnoses Not on filedocumented in this encounter Administered Medications Inactive Administered Medications - up to 3 most recent administrations Medication Order MAR Action Action Date Dose Rate Site fentaNYL injection (SUBLIMAZE) Given 11/19/2020 9:31 AM CDT 50 mcg intravenous, As needed, Starting on Tue11/19/20 at 0931, Anesthesia Intra-op lactated ringers New Bag 11/19/2020 9:24 AM CDT intravenous, Continuous Infusion: Per Instructions PRN, Starting on Tue11/19/20 at 0924, Anesthesia Intra-op lidocaine (PF) (cardiac) injection Given 11/19/2020 9:29 AM CDT 50 mg intravenous, As needed, Starting on Tue11/19/20 at 0929, Anesthesia Intra-op ondansetron (PF) injection (ZOFRAN) Given 11/19/2020 9:29 AM CDT 4 mg intravenous, As needed, Starting on Tue11/19/20 at 0929, Anesthesia Intra-op propofol 10 mg/mL infusion Rate/Dose 11/19/2020 100 mcg/kg/min 48 mL /hr (DIPRIVAN) Change 10:04 AM CDT intravenous, Continuous Infusion: Per Instructions PRN, Starting on Tue11/19/20 at 0929, Anesthesia Intra-op Rate/Dose Change 11/19/2020 9:54 AM CDT 130 mcg/kg/min 62.4 mL/hr New Bag 11/19/2020 9:29 AM CDT 150 mcg/kg/min 72 mL/hr propofoL injection (DIPRIVAN) Given 11/19/2020 9:31 AM CDT 100 mg intravenous, As needed, Starting on Tue11/19/20 at 0931, Anesthesia Intra-op documented in this encounter Additional Health Concerns Assessment Noted Time PHQ-9 Depression Total Score: 15 04/21/2018 1:00 PM CS T documented as of this encounter Care Teams [place] Machine Operator Relationship Specialty Start Date End Date Elsewhere, Pcp PCP - General Internal Medicine 10/22/19 documented as of this encounter
--- OUTSIDE RECORDS SUMMARY | 2022-01-08 10:40 | XMS_ITS | Encounter Summary ---
:1970 Author Organization [facility] Address [address] [place] [address] Care Team Providers Name Role Phone Elsewhere, Pcp Primary Care Provider Unavailable Reason for Visit Reason Comments Med Refill Encounter Details Date Type Department Care Team Description 10/02/2020 Refill Division of Rheumatology in Sarah Chavez R.N. Med Refill [place], [place] [address] [facility] [address] [place] [phone] Social History Tobacco Use Types Packs/Day Years [...] or relatives? How often do you attend judaism or More than 4 times per year 11/16/2021 caodaism services? Do you belong to any clubs or No 11/16/2021 organizations such as judaism groups, unions, fraternal or athletic groups, or [...] Telephone Encounter - Sarah Stewart R.N. - 10/02/2020 10:02 AM CDT Prescription renewal request for methotrexate received from patient. HISTORY OF PRESENT ILLNESS Last Rheum visit: 07/17/20 with Velma Munson APRN, CNP Future office visit: not ordered Last monitoring labs/eye exam: 09/24/20: within protocol parameters. Prescription request matches current plan of care. Prescription request does not match a current prescription in the Medication List. Exclusion criteria: None ASSESSMENT/PLAN Prescription request pended for provider review due to increased dose.. documented in this encounter Plan of Treatment Upcoming Encounters Date Type Specialty Care Team Description 01/08/2022 Appointment Radiology Julián Edouard M.D. [address] [place] [phone] (Earl dowd) 01/08/2022 Ancillary Procedure Cardiovascular Disease Julián Edouard M.D. [address] [place] [phone] (Earl dowd) 01/08/2022 Comprehensive Visit Thoracic Surgery Tess Raphael M.D. [address] [place] [phone] (Earl dowd) documented as of this encounter Visit Diagnoses Diagnosis Arthritis Inflammatory (HCC) documented in this encounter Additional Health Concerns Assessment Noted Time PHQ-9 Depression Total Score: 15 04/21/2018 1:00 PM CS T documented as of this encounter Care Teams Public Health Teacher Relationship Specialty Start Date End Date Elsewhere, Pcp PCP - General Internal Medicine 10/22/19 documented as of this encounter
--- OUTSIDE RECORDS SUMMARY | 2022-01-08 10:40 | XMS_ITS | Encounter Summary ---
:1970 Author Organization [facility] Address [address] [place] [address] Care Team Providers Name Role Phone Elsewhere, Pcp Primary Care Provider Unavailable Encounter Details Date Type Department Care Team Description 11/11/2020 Orders Only Urgent Care in [place], [place] Janelle Locke [address] [place] [phone] Social History Tobacco Use Types Packs/Day Years [...] Appointment Radiology Julián Edouard M.D. [address] [place] [address] (Wo rk) 01/08/2022 Ancillary Procedure Cardiovascular Disease Julián Edouard M.D. [address] [place] [address] (Wo rk) 01/08/2022 Comprehensive Visit Thoracic Surgery Tess Raphael M.D. [address] [place] [address] (Wo rk) documented as of this encounter Visit Diagnoses Not on filedocumented in this encounter Additional Health Concerns Infection Onset Date Last Indicated Resolved Time COVID19 Pending 11/15/2020 11/15/2020 11/15/2020 10:25 PM CDT Assessment Noted Time PHQ-9 Depression Total Score: 15 04/21/2018 1:00 PM CS T documented as of this encounter Care Teams Assistant County Engineer Relationship Specialty Start Date End Date Elsewhere, Pcp PCP - General Internal Medicine 10/22/19 documented as of this encounter
--- OUTSIDE RECORDS SUMMARY | 2022-01-08 10:40 | XMS_ITS | Encounter Summary ---
:1970 Author Organization [facility] Address [address] [place] [address] Care Team Providers Name Role Phone Elsewhere, Pcp Primary Care Provider Unavailable Reason for Referral Outpatient (Routine) - Closed Specialty Diagnoses / Procedures Referred By Contact Refer red To Contact Diagnoses Julián Carpio M.D. [facility] Procedures Breath test, Hydrogen, Glucose - Bacterial overgrowth [address] [place], [place] [address] Referral ID Status Reason Start Date Expiration Date Visits Requ ested Visits Authorized [id number] Closed 08/19/2020 08/19/2021 1 1 Reason for Visit Outpatient (Routine) - Closed Specialty Diagnoses / Procedures Referred By Contact Refer red To Contact Diagnoses Julián Carpio M.D. [facility] Procedures Breath test, Hydrogen, Glucose - Bacterial overgrowth [address] [place] [phone] Referral ID Status Reason Start Date Expiration Date Visits Requ ested Visits Authorized [id number] Closed 08/19/2020 08/19/2021 1 1 Encounter Details Date Type Department Care Team Description 09/30/2020 Hospital Encounter Division of Gastroenterology Julián Freeman in [facility] kristin Narayan M.D. [address] [facility] [address] [place] [address] [place], [place] [phone] Social History Tobacco Use Types Packs/Day Years [...] or relatives? How often do you attend taoist or More than 4 times per year 11/16/2021 mosque services? Do you belong to any clubs or No 11/16/2021 organizations such as taoist groups, unions, fraternal or athletic groups, or [...] eine (EXCEDRIN MIGRAINE mouth as needed. ORAL) dextroamphetamine-amphetam Take 45 mg by 0 ine (ADDERALL) 30 mg mouth every tablet morning. diphenhydramine-lidocaine Take 5-10 mL by 480 mL 11 08/12 2 %-antacid (mw) mouth 4 (four) times a day after meals and bedtime. Hold in mouth for 1 minute.Do not eat or drink for 15-30 minutes after use. hydrOXYzine (ATARAX) 25 mg Take 25 mg by 0 tablet mouth every 6 (six) hours as needed for itching. modafiniL (PROVIGIL) 100 Take 100 mg by 0 mg tablet mouth daily. SUMAtriptan (IMITREX Inject under the 0 5 STATDOSE) 6 mg/0.5 mL skin as needed. injection pen Uses 2-4x/month for migraine. Uses once and then once again after 1h if no effect. folic acid 1 mg Take 1 tablet (1 90 tablet 1 07/17/2020 tabletIndications: mg total) by mouth Arthritis Inflammatory daily. (HCC) hydrOXYchloroQUINE Take 1-2 tablets 135 tablet 3 05/27/2020 06/01/2021 (PLAQUENIL) 200 mg (200-400 mg total) tabletIndications: by mouth daily. Arthritis Inflammatory Take 2 tab on even (HCC) days, 1 on odd. methotrexate 25 mg/mL Inject 0.4 mL (10 6 mL 1 021 10/02/2020 injectionIndications: mg total) under Arthritis Inflammatory the skin once a (HCC) week. pilocarpine (SALAGEN) 5 mg Take 1 tablet (5 90 tablet 5 08/06/2021 tabletIndications: mg total) by mouth Xerostomia 3 (three) times a day. predniSONE (DELTASONE) 5 Take 30mg daily 105 tablet 0 201911/19/2020 mg tablet (15mg twice daily) for 3 days, then 20mg daily (10mg twice daily) for 3 days, then 15mg daily for 3 days, than 10mg daily for 3 days, then off. syringe with needle (BD Inject 1 Syringe 12 Syringe 3 202010/31/2020 Tuberculin Syringe) 1 mL under the skin 27 x 1/2 syringe once a week. triamcinolone (KENALOG) Apply 1 30 g 0 08/29/2018 0 11/19/2020 0.1 % ointment application topically 2 (two) times a day. To back for 1-2 weeks until clear documented as of this encounter Miscellaneous Notes Result Encounter Note - Julián Edouard M.D. - 10/03/2020 8:41 AM CDT The breath test for fructose was negative. The breath test for SIBO was possibly positive. The SIBO breath test is the least accurate of the breath tests and may be abnormal in irritable bowel or in normal people. The real determination of SIBO would be a complete response to an antibiotic which may have significant side effects such as C diff. The treatment is not curative and has to be repeated periodically. I would be happy to discuss the options when I return on Tuesday. I will contact you by phone. documented in this encounter Plan of Treatment Upcoming Encounters Date Type Specialty Care Team Description 01/08/2022 Appointment Radiology Julián Edouard M.D. [address] [place] [address] (Earl dowd) 01/08/2022 Ancillary Procedure Cardiovascular Disease Julián Edouard M.D. [address] [place] [phone] (Earl dowd) 01/08/2022 Comprehensive Visit Thoracic Surgery Tess Raphael M.D. [address] [place] [phone] (Earl dowd) Scheduled Orders Name Type Priority Associated Diagnoses Order S chedule Breath test, Hydrogen, GI Routine Flatulence Once for 1 Occurrences Glucose - Bacterial starting 09/30/2020 until overgrowth 09/30/2020 documented as of this encounter Procedures Procedure Name Priority Date/Time Associated Diagnosis Comme nts HYDROGEN BREATH Routine 09/30/2020 2:38 PM Result s for this TEST CDT procedure are i n the results section. documented in this encounter Results Hydrogen Breath Test (09/30/2020 2:38 PM CDT) athologist Signature Hydrogen Glucose 09/30/2020 [facility] Breath Test 4:59 PM CDT Peak H2 0 0 - 20 ppm 09/30/2020 [facility] Response 4:59 PM CDT Hydrogen, 1 ppm 09/30/2020 [facility] Baseline 4:59 PM CDT Hydrogen, 15 1 ppm 09/30/2020 [facility] Minutes 4:59 PM CDT Hydrogen, 30 0 ppm 09/30/2020 [facility] Minutes 4:59 PM CDT Hydrogen, 45 0 ppm 09/30/2020 [facility] Minutes 4:59 PM CDT Hydrogen, 60 1 ppm 09/30/2020 [facility] Minutes 4:59 PM CDT Hydrogen, 90 CANCELED ppm 09/30/2020 [facility] Minutes 4:59 PM CDT Comment: Result canceled by the ancillar y. Hydrogen, 120 Minutes CANCELED ppm 09/30/2020 4:59 PM CDT [facility] Comment: Result canceled by the ancillar y. Peak CH4 Response 15 0 - 20 ppm 09/30/2020 4:59 PM CD T [facility] Methane, Baseline 23 ppm 09/30/2020 4:59 PM CDT [facility] Methane, 15 Minutes 31 ppm 09/30/2020 4:59 PM C DT [facility] Methane, 30 Minutes 38 ppm 09/30/2020 4:59 PM C DT [facility] Methane, 45 Minutes 25 ppm 09/30/2020 4:59 PM C DT [facility] Methane, 60 Minutes 21 ppm 09/30/2020 4:59 PM C DT [facility] Methane, 90 Minutes CANCELED ppm 09/30/2020 4:59 PM C DT [facility] Comment: Result canceled by the ancillar y. Methane, 120 Minutes CANCELED ppm 09/30/2020 4:59 PM CDT [facility] Comment: Result canceled by the ancillar y. Symptoms See Comment 09/30/2020 3:34 PM CDT [facility] Comment: REVISED RESULTS Conditionally positive breath test for s mall intestinal bacterial overgrowth (SIBO) based on the rise of the sum of b reath hydrogen and methane by at least 12 PPM during the first sixty natty shira. A positive hydrogen breath test is usu ally not sufficient to diagnose SIBO and does not justify treat ment with antibiotics for non-specific symptoms such as abdominal bloating. The diagnosis of SIBO is appropriate when there are gastrointesti nal anatomical changes from previous surgery, small bowel diverticulosis, int estinal dysmotility, advanced age > 80 years, and supportive clinical featur es include vitamin B12 deficiency, fat soluble vitamin deficiencies, and do cumented diarrhea with steatorrhea. ??Symptoms: None Sheila Anthony ([id number]) Specimen Anatomical Collection Method Collection Time Receive d Time (Source) Location / / Volume Laterality Breath 09/30/2020 2:38 PM 2:38 CDT PM CDT Julián Edouard M.D. LAB BODY FLUIDS AND STOOLS O RDERABLES Performing Organization Address City/State/ZIP Code Phon e Number [facility] - [address] [place], [place] [address] [place] [address] Laboratories-[facility] [address] documented in this encounter Visit Diagnoses Diagnosis Flatulence documented in this encounter Additional Health Concerns Assessment Noted Time PHQ-9 Depression Total Score: 15 04/21/2018 1:00 PM CS T documented as of this encounter Care Teams Patient Centered Care Specialist Relationship Specialty Start Date End Date Elsewhere, Pcp PCP - General Internal Medicine 10/22/19 documented as of this encounter
--- OUTSIDE RECORDS SUMMARY | 2022-01-08 10:40 | XMS_ITS | Encounter Summary ---
:1970 Author Organization [facility] Address [address] [place] [address] Care Team Providers Name Role Phone Elsewhere, Pcp Primary Care Provider Unavailable Reason for Visit Reason Comments Rx Prior Authorization CRISTINA DENIED DICLOFENAC SOD GEL Pre-visit Testing Orders Encounter Details Date Type Department Care Team Description 11/10/2020 Clinical Division of [place], Rx Prior Communication Rheumatology in Velma Schwartz, Authorizati on (CRISTINA Rooney APRN, C.N.P. DENIED DICLOFENAC [place] [address] [facility] SOD GEL); Pre-visit [address] [place], [place] [phone] Social History Tobacco Use Types Packs/Day Years [...] More than 4 times per year 11/16/2021 temple services? Do you belong to any clubs [...] to pay for the very basics like Marketing [employer] hard 11/16/2021 food, housing, medical care, [...] Encounter - Velma Munson APRN, C.N.P. - 12/01/2020 8:26 AM CDT Lab order signed. Telephone Encounter - Keesha Friend - 12/01/2020 7:52 AM CDT [facility] pended for appt Telephone Encounter - Iker Panda - 11/10/2020 7:36 AM CDT The patient's health insurer has denied prior authorization for DICLOFENAC SOD GEL. To view the denial letter: 1. Go to Snapshot 2. Go to the purple Medications box 3. Click on the blue Prior Authorizations link 4. Under Denied, click on the blue medication link to open and view the attachment. As the prescriber your options are: ??? Appeal the decision to the insurer directly (see denial letter for how to appeal). ??? Write a new Rx for an alternative medication therapy. ??? Release the Rx to the pharmacy so the patient can pay out of pocket if they desire. To Release Rx: Open this encounter, go to Meds & Orders, click on the medication, and click the blue ???Release Rx?? button. PLEASE NOTE: If the ???Release Rx?? button is not visible, the Rx has already been released to the pharmacy. If you have questions, please reply via QuickNote to Francis BUSBY. Thank you, The [facility] Team documented in this encounter Plan of Treatment Upcoming Encounters Date Type Specialty Care Team Description 01/08/2022 Appointment Radiology Julián Edouard M.D. [address] [place] [address] (Earl dowd) 01/08/2022 Ancillary Procedure Cardiovascular Disease Julián Edouard M.D. [address] [place] [address] (Earl dowd) 01/08/2022 Comprehensive Visit Thoracic Surgery Tess Raphael M.D. [address] [place] [phone] (Earl dowd) documented as of this encounter Results Creatinine with Estimated GFR (02/05/2021 2:08 PM CDT) athologist Signature Creatinine 0.71 0.59 - 02/05/2021 [facility] 1.04 mg/dL 2:55 PM CDT eGFR-Black/Afric >90 >=60 02/05/2021 [facility] an [place] mL/min/BSA 2:55 PM CDT Comment: ----ADDITIONAL INFORMATION---- [...] PM 02/06/20 2:10 Venous) CDT PM CDT Jorge Polo APRNNSandra LAB BLOOD ADD-ON Performing Organization Address City/State/ZIP Code Phon e Number [address] [address] [place] [address] System in [place] [address] AST (Aspartate Aminotransferase) (02/05/2021 2:08 PM CDT) Patholo gist Method Time Signature Aspartate 19 8 - 43 02/05/2021 [facility] Aminotransferase U/L 2:55 PM CDT (AST), P Specimen Anatomical Collection Method Collection Time Receive d Time (Source) Location / / Volume Laterality Blood (Blood, 02/05/2021 2:08 PM 02/06/20 2:10 Venous) CDT PM CDT Jorge Polo APRNN.P. LAB BLOOD ADD-ON Performing Organization Address City/[facility]/ZIP Code Phon e Number [place] [address] [place] [address] [place] [address] System in [place] [address] CRP (C-Reactive Protein) (02/05/2021 2:08 PM CDT) P athologist Signature C-Reactive 4.8 <=8.0 mg/L 02/05/2021 CN[facility] Protein (CRP), 2:55 PM CDT P Specimen Anatomical Collection Method Collection Time Receive d Time (Source) Location / / Volume Laterality Blood (Blood, 02/05/2021 2:08 PM 02/06/20 2:10 Venous) CDT PM CDT Jorge Polo APRNN.P. LAB BLOOD ADD-ON Performing Organization Address City/[facility]/ZIP Code Phon e Number [address] [address] [place] [address] System in [place] [address] Sedimentation Rate (02/05/2021 2:08 PM CDT) [...] Organization Address City/State/ZIP Code Phon e Number [facility]- [address] [facility] [place], [place] [address] [facility] [place] [address] System in [place] [address] [place], [place] [address] CBC with Differential, Blood (02/05/2021 2:08 PM [...] PM 02/06/20 2:10 Venous) CDT PM CDT Jorge Polo APRNNLennoxPLennox LAB BLOOD ADD-ON Performing Organization Address City/State/ZIP Code Phon e Number [facility]- [address] [place] [phone] [place] [address] [place] [address] System in [address] documented in this encounter Visit Diagnoses Diagnosis Arthritis Inflammatory (HCC) - Primary documented in this encounter Additional Health Concerns Infection Onset Date Last Indicated Resolved Time COVID19 Pending 11/15/2020 11/15/2020 11/15/2020 10:25 PM CDT Assessment Noted Time PHQ-9 Depression Total Score: 15 04/21/2018 1:00 PM CS T documented as of this encounter Care Teams Multi Line Claims Adjuster Relationship Specialty Start Date End Date Elsewhere, Pcp PCP - General Internal Medicine 10/22/19 documented as of this encounter
--- OUTSIDE RECORDS SUMMARY | 2022-01-08 10:40 | XMS_ITS | Encounter Summary ---
:1970 Author Organization [facility] Address [address] [place] [address] Care Team Providers Name Role Phone Elsewhere, Pcp Primary Care Provider Unavailable Reason for Referral Outpatient (Routine) - Closed Specialty Diagnoses / Procedures Referred By Contact Refer red To Contact Diagnoses Julián Carpio M.D. [facility] Procedures Breath test, Hydrogen, Lactose - Lactase deficiency [address] [place], [place] [phone] Referral ID Status Reason Start Date Expiration Date Visits Requ ested Visits Authorized [id number] Closed 08/19/2020 08/19/2021 1 1 Reason for Visit Outpatient (Routine) - Closed Specialty Diagnoses / Procedures Referred By Contact Refer red To Contact Diagnoses Julián Carpio M.D. [facility] Procedures Breath test, Hydrogen, Lactose - Lactase deficiency [address] [place] [address] Referral ID Status Reason Start Date Expiration Date Visits Requ ested Visits Authorized [id number] Closed 08/19/2020 08/19/2021 1 1 Encounter Details Date Type Department Care Team Description 09/25/2020 Hospital Encounter Division of Gastroenterology Julián Freeman in [facility] kristin Narayan M.D. [address] [facility] [address] [place] [address] [place], [place] [phone] Social History Tobacco Use Types Packs/Day Years [...] More than 4 times per year 11/16/2021 alevism services? Do you belong to any clubs [...] Encounter Note - Julián Edouard M.D. - 10/07/2020 1:01 PM CDT I reviewed the breath test results with her. Because of the substernal burning we are doing the rm capsule. Because of her diarrhea, we will try to add a colonoscopy and random colon biopsies. I will see back when results are available. documented in this encounter Plan of Treatment Upcoming Encounters Date Type Specialty Care Team Description 01/08/2022 Appointment Radiology Julián Edouard M.D. [address] [place] [address] (Wo rk) 01/08/2022 Ancillary Procedure Cardiovascular Disease Julián Edouard M.D. [address] [place] [address] (Wo rk) 01/08/2022 Comprehensive Visit Thoracic Surgery Tess Raphael M.D. [address] [place] [address] (Wo rk) Scheduled Orders Name Type Priority Associated Diagnoses Order S chedule Breath test, Hydrogen, GI Routine Flatulence Once for 1 Occurrences Lactose - Lactase starting 0 09/25/2020 until deficiency 09/25/2020 documented as of this encounter Procedures Procedure Name Priority Date/Time Associated Diagnosis Comme nts HYDROGEN BREATH Routine 09/25/2020 2:08 PM Result s for this TEST CDT procedure are i n the results section. documented in this encounter Results Hydrogen Breath Test (09/25/2020 2:08 PM CDT) P athologist Signature Hydrogen Lactose 09/25/2020 [facility] Breath Test 4:39 PM CDT Peak H2 0 0 - 20 ppm 09/25/2020 [facility] Response 4:39 PM CDT Hydrogen, 4 ppm 09/25/2020 [facility] Baseline 4:39 PM CDT Hydrogen, 15 CANCELED ppm 09/25/2020 [facility] Minutes 4:39 PM CDT Comment: Result canceled by the ancillar y. Hydrogen, 30 Minutes 3 ppm 09/25/2020 4:39 PM CDT [facility] Hydrogen, 45 Minutes CANCELED ppm 09/25/2020 4:39 PM CDT [facility] Comment: Result canceled by the ancillar y. Hydrogen, 60 Minutes 2 ppm 09/25/2020 4:39 PM CDT [facility] Hydrogen, 90 Minutes 2 ppm 09/25/2020 4:39 PM CDT [facility] Hydrogen, 120 Minutes 4 ppm 09/25/2020 4:39 PM CDT [facility] Peak CH4 Response 13 0 - 20 ppm 09/25/2020 4:39 PM CD T [facility] Methane, Baseline 23 ppm 09/25/2020 4:39 PM CDT [facility] Methane, 15 Minutes CANCELED ppm 09/25/2020 4:39 PM C DT [facility] Comment: Result canceled by the ancillar y. Methane, 30 Minutes 23 ppm 09/25/2020 4:39 PM C DT [facility] Methane, 45 Minutes CANCELED ppm 09/25/2020 4:39 PM C DT [facility] Comment: Result canceled by the ancillar y. Methane, 60 Minutes 27 ppm 09/25/2020 4:39 PM C DT [facility] Methane, 90 Minutes 36 ppm 09/25/2020 4:39 PM C DT [facility] Methane, 120 Minutes 30 ppm 09/25/2020 4:39 PM CDT [facility] Symptoms See Comment 09/25/2020 4:39 PM CDT [facility] Comment: REVISED RESULTS Negative breath test for lactose malabso rption (less than or equal to 19 PPM rise in breath hydrogen compared to base line). 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 ?? Symptoms: None ?? Elevated baseline hydrogen and/or methan e may reflect dietary non-compliance (e.g. consumption of slowly-digesting, f iber containing foods the day before the test) or other causes, such as sever e constipation. Alejo Butcher ([id number]) ?? ----PREVIOUSLY REPORTED ---- Negative breath test for lactose malabsorption (less than or equal to 19 PPM rise in breath hydrogen compared to baseline). 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 ?Symptoms: None ?? Elevated baseline hydrogen and/or methan e may reflect dietary non-compliance (e.g. consumption of slowly-digesting, f iber containing foods the day before the test) or other causes. Alejo Butcher ([id number]) ?(Reported 2020 16:11) Specimen Anatomical Collection Method Collection Time Receive d Time (Source) Location / / Volume Laterality Breath 09/25/2020 2:08 PM 2:08 CDT PM CDT Julián Edouard M.D. LAB BODY FLUIDS AND STOOLS O RDERABLES Performing Organization Address City/State/ZIP Code Phon e Number [facility] - [address] [place], [place] [address] [place] [address] [facility] [address] documented in this encounter Visit Diagnoses Diagnosis Flatulence documented in this encounter Additional Health Concerns Infection Onset Date Last Indicated Resolved Time COVID19 Pending 09/19/2020 09/26/2020 09/27/2020 5:53 AM CDT Assessment Noted Time PHQ-9 Depression Total Score: 15 04/21/2018 1:00 PM CS T documented as of this encounter Care Teams Vibration Engineer Relationship Specialty Start Date End Date Elsewhere, Pcp PCP - General Internal Medicine 10/22/19 documented as of this encounter
--- OUTSIDE RECORDS SUMMARY | 2022-01-08 10:40 | XMS_ITS | Encounter Summary ---
:1970 Author Organization [facility] Address [address] [place] [address] Care Team Providers Name Role Phone Elsewhere, Pcp Primary Care Provider Unavailable Reason for Visit Outpatient (Routine) - Closed Specialty Diagnoses / Procedures Referred By Contact Refer red To Contact Rheumatology Velma Munson APRN, [facility] C.N.P. [address] [place] [phone] Referral ID Status Reason Start Date Expiration Date Visits Requ ested Visits Authorized [id number] Closed 10/02/2020 10/02/2021 1 1 Encounter Details Date Type Department Care Team Description 10/31/2020 Virtual Visit Division of Velma Munson APRN, C.N.P. [address] [place] [address] [phone] Medication Therapy Shelter Not Anticoa gulant (Primary Dx); [facility] [address] [place] [phone] Arthritis Inflammatory (HCC) [place], [place] [address] [place] [phone] Social History Tobacco Use Types Packs/Day Years [...] or relatives? How often do you attend amish or More than 4 times per year 11/16/2021 holiness services? Do you belong to any clubs or No 11/16/2021 organizations such as amish groups, unions, fraternal or athletic groups, or [...] documented as of this encounter Progress Notes Kaylie Vu M.A.N., R.N. - 10/31/2020 2:00 PM CDT SUBJECTIVE REASON FOR CALL Nurse visit for methotrexate follow-up and education as requested by Velma Munson APRN, CNP in note dated 07/17/20. HISTORY OF PRESENT ILLNESS Waleska Diaz has a diagnosis of rheumatoid arthritis. Velma Munson APRN, SINTIA requested nursing assistance with assessment for methotrexate adjustment. The patient is currently taking methotrexate 15 mg (0.6 ml) and folic acid 1 mg ( 1 tablet). Pt is not taking prednisone. Patient and/or partner is not currently planning. Patient denies an active infection or illness. ASSESSMENT / PLAN The patient reports continued inflammatory arthritis symptoms, including hands and feet are bettter but hips, neck, and back continue to have pain.. Current pain rating is 8 on a scale of 0-10, locatedin the hip, back and neck at times. Sometimes she rates pain at a 2/10 . . Patient reports morning stiffness lasting 1 hour The patient completed most recent medication monitoring labs. Labs were not within Rheumatology parameters. The patient's provider will be notified of lab results. 10/30/20 WBC 10.3 10/30/20 ANC 6.87 The patient denies medication side effects. Waleska will increase her Methotrexate to 20 mg (0.8 mg) sub cutaneous injection.. She takes her injection Tuesday evenings. She inquired that since the pain is not completely under controll at times if she could get a prescription of Toradol pills. She said she had called her PCP a few weeks ago because of pain and he gave her a Toradol injection that has kept the pain away since and thought maybe she could have pills on hand in case the pain returns. I suggested she treat episodes of pain with tylenol (if Okayed by her GI team) and comfort measures of heat or ice and rest. I also suggested that she check with her PCP for pain management as she is being followed closely by the GI team for GI issu es not resulting from the Methotrexate. We plan to have her nextappointment on 11/27/20 after 1:00 PM phone call only with labs to be drawn in [place] on tuesday at 7:00 AM. Her Pharm[facility] is [facility] in [place], and would like a prescription for needles as well. Orders entered and scripts updated. We reviewed methotrexate dosing, methotrexate side effects, methotrexate administration technique, reasoning for folic acid, folic acid dosing, how to request a prescription renewal, when and how to contact the Rheumatology department, importance of medication monitoring labs, what to do when the patie nt has an illness or infection. I also reminded Waleska that she will need a yearly eye exam againin March, due to her plaquenil use.. documented in this encounter Miscellaneous Notes Addendum Note - Kaylie Vu M.A.N., R.N. - 10/31/2020 2:00 PM CDT Addended by: KAYLIE VU on: 10/31/2020 03:26 PM Modules accepted: Orders documented in this encounter Plan of Treatment Upcoming Encounters Date Type Specialty Care Team Description 01/08/2022 Appointment Radiology Julián Edouard M.D. [address] [place] [phone] (Wo rk) 01/08/2022 Ancillary Procedure Cardiovascular Disease Julián Edouard M.D. [address] [place] [address] [phone] (Wo rk) 01/08/2022 Comprehensive Visit Thoracic Surgery Tess Raphael M.D. [address] [place] [address] [phone] (Wo rk) documented as of this encounter Results Creatinine with Estimated GFR (11/26/2020 11:50 AM CDT) athologist Signature Creatinine 0.82 0.59 - 11/26/2020 DTL 1.04 mg/dL 1:22 PM CDT eGFR-Non 85 >=60 11/26/2020 DTL Black/ mL/min/BSA 1:22 PM CDT Afghan Comment: ----ADDITIONAL INFORMATION---- Estimated GFR calculated using the 2009 CKD_EPI creatinine equation. eGFR-Black/ >90 >=60 mL/min/BSA 2020 1:22 PM CDT DTL Comment: ----ADDITIONAL INFORMATION---- Estimated GFR calculated using the 2009 CKD_EPI creatinine equation. Specimen Anatomical Collection Method Collection Time Receive d Time (Source) Location / / Volume Laterality Blood (Blood, 11/26/2020 11:50 11/26/2020 Venous) AM CDT 12:23 PM CDT Jorge Polo APRNNLennoxP. LAB BLOOD ADD-ON Performing Organization Address City/[facility] Phon e Number [facility] - [address] [place] [address] [address] AST (Aspartate Aminotransferase) (11/26/2020 11:50 AM CDT) Patholo gist Method Time Signature Aspartate 28 8 - 43 11/26/2020 DTL Aminotransferase U/L 1:22 PM CDT (AST), S Specimen Anatomical Collection Method Collection Time Receive d Time (Source) Location / / Volume Laterality Blood (Blood, 11/26/2020 11:50 11/26/2020 Venous) AM CDT 12:23 PM CDT Eric Polo APRNP. LAB BLOOD ADD-ON Performing Organization Address City/[facility] Phon e Number [facility] - [address] [address] [facility] CBC with Differential, Blood (11/26/2020 11:50 [...] City/State/ZIP Code Phon e Number [facility] - [facility] First [place], [place] [address] [place] [address] Laboratories-[facility] 200 [address] [facility] documented in this encounter Visit Diagnoses Diagnosis Medication Therapy Radio Program Director Not Anticoa gulant - Primary Arthritis Inflammatory (HCC) documented in this encounter Additional Health Concerns Assessment Noted Time PHQ-9 Depression Total Score: 15 04/21/2018 1:00 PM CS T documented as of this encounter Care Teams Supply And Distribution Manager Relationship Specialty Start Date End Date Elsewhere, Pcp PCP - General Internal Medicine 10/22/19 documented as of this encounter
--- OUTSIDE RECORDS SUMMARY | 2022-01-08 10:40 | XMS_ITS | Encounter Summary ---
:1970 Author Organization [facility] Address [address] [place] [address] Care Team Providers Name Role Phone Elsewhere, Pcp Primary Care Provider Unavailable Encounter Details Date Type Department Care Team Description 09/26/2020 Lab Department of Laboratory Julián Edouard, Preprocedural Lab Exam Medicine and PathologyLuzmaria. [facility], [place] [address] [place] [address] [place] [phone] [place] [phone] Social History Tobacco Use Types Packs/Day Years [...] or relatives? How often do you attend faith or More than 4 times per year 11/16/2021 alevism services? Do you belong to any clubs or No 11/16/2021 organizations such as faith groups, unions, fraternal or athletic groups, or [...] Appointment Radiology Julián Edouard M.D. [address] [place] [phone] (Wo rk) 01/08/2022 Ancillary Procedure Cardiovascular Disease Julián Edouard M.D. [address] [place] [phone] (Wo rk) 01/08/2022 Comprehensive Visit Thoracic Surgery Tess Raphael M.D. [address] [place] [address] [phone] (Wo rk) documented as of this encounter Procedures Procedure Name Priority Date/Time Associated Diagnosis Comme nts SARS COV-2 RNA, Routine 09/26/2020 3:59 PM Preprocedural Lab E xam Results for this PCR, VARIES CDT procedure are i n the results section. documented in this encounter Results SARS CoV-2 RNA, PCR, Varies Asymptomatic (09/26/2020 3:59 PM CDT) [facility] Method Time Signature SARS CoV-2 Swab, 09/27/2020 DTL RNA, PCR, Nasopharynx 5:53 AM CDT Source SARS CoV-2 Undetected Undetected 09/27/2020 DTL RNA, PCR 5:53 AM CDT Comment: SARS-CoV-2 RNA absent. This result does not rule out COVID-19 in the patient, as the sensitivity of the test depends o n the timing of the specimen collection and quality of the specimen. Result should be correlated with patient's history and clinical presentat ion. ----ADDITIONAL INFORMATION---- This RT-PCR test has received Emergency Use Authorization (EUA) by the U.S. Food and Drug Administration an d is used per casualty insurance claim adjuster's instructions. Performance characteristics were verified by [facility] in a manner consistent with CLIA requirements. Visit the CDC website: https://www.cdc.g ov/coronavirus/ for the most recent guidelines on Coron avirus testing. Fact Sheet for Healthcare Providers: https://www.fda.gov/media/908645/downloa d Fact Sheet for Patients: https://www.fda.gov/media/887071/downloa d Specimen Anatomical Collection Method Collection Time Receive d Time (Source) Location / / Volume Laterality Varies 09/26/2020 3:59 PM 4:15 (Nasopharynx) CDT PM CDT Julián Edouard M.D. LAB MICROBIOLOGY - GENERAL O RDERABLES Performing Organization Address City/State/ZIP Code Phon e Number [facility] - [facility] First [place], [place] [address] [address] Laboratories-[facility] 200 [facility] documented in this encounter Visit Diagnoses Diagnosis Preprocedural Lab Exam documented in this encounter Additional Health Concerns Infection Onset Date Last Indicated Resolved Time COVID19 Pending 09/19/2020 09/26/2020 09/27/2020 5:53 AM CDT Assessment Noted Time PHQ-9 Depression Total Score: 15 04/21/2018 1:00 PM CS T documented as of this encounter Care Teams Weigher Operator Relationship Specialty Start Date End Date Elsewhere, Pcp PCP - General Internal Medicine 10/22/19 documented as of this encounter
--- OUTSIDE RECORDS SUMMARY | 2022-01-08 10:40 | XMS_ITS | Encounter Summary ---
:1970 Author Organization [facility] Address [address] [place] [address] Care Team Providers Name Role Phone Elsewhere, Pcp Primary Care Provider Unavailable Reason for Visit Reason Comments Patient Education Methotrexate Adjustment Encounter Details Date Type Department Care Team Description 10/09/2020 Virtual Visit Division of Velma Munson APRN, C.N.P. [address] [place] [phone] Arthritis Rheumatoid Rheumatology in JacobyIrene mueller, RLennoxNLennox [address] [place] [phone] ([facility]) [place], [place] [address] [place] [address] [phone] Social History Tobacco Use Types Packs/Day Years [...] or relatives? How often do you attend mandaen or More than 4 times per year 11/16/2021 sikhism services? Do you belong to any clubs or No 11/16/2021 organizations such as mandaen groups, unions, fraternal or athletic groups, or [...] to pay for the very basics like [employer] hat hard 11/16/2021 food, housing, medical care, [...] place to sleep or slept in a prison (including now)? Education Answer Date Recorded What is the highest level of school you have Some college, n o degree 01/02/2019 completed or the highest degree you have received? Sex Assigned at Date Recorded Female 01/25/2018 11:49 AM CDT documented as of this encounter Progress Notes Irene Andujar R.N. - 10/09/2020 8:30 AM CDT SUBJECTIVE REASON FOR CALL Medication Education HISTORY OF PRESENT ILLNESS Waleska Diaz has a diagnosis of rheumatoid arthritis. Velma Munson APRN, SLEEPER CUTTER requested nursing assistance with medication education. Reviewed education on methotrexate adjustment program with the patient. Discussed purpose, administration, lab monitoring, and when to contact your provider. All questions were answered. Patient enrolled in the Methotrexate Adjustment Protocol per provider request. [facility]. Follow-up with nursing via CALL in in 4 weeks. documented in this encounter Plan of Treatment Upcoming Encounters Date Type Specialty Care Team Description 01/08/2022 Appointment Radiology Julián Edouard M.D. [address] [place] [phone] (Earl dowd) 01/08/2022 Ancillary Procedure Cardiovascular Disease Julián Edouard M.D. [address] [place] [phone] (Earl dowd) 01/08/2022 Comprehensive Visit Thoracic Surgery Tess Raphael M.D. [address] [place] [phone] (Wo rk) documented as of this encounter Visit Diagnoses Diagnosis Arthritis Rheumatoid (HCC) documented in this encounter Additional Health Concerns Assessment Noted Time PHQ-9 Depression Total Score: 15 04/21/2018 1:00 PM CS T documented as of this encounter Care Teams Commercial Reporter Relationship Specialty Start Date End Date Elsewhere, Pcp PCP - General Internal Medicine 10/22/19 documented as of this encounter
--- OUTSIDE RECORDS SUMMARY | 2022-01-08 10:40 | XMS_ITS | Encounter Summary ---
:1970 Author Organization [facility] Address [address] [place] [address] Care Team Providers Name Role Phone Elsewhere, Pcp Primary Care Provider Unavailable Reason for Referral Outpatient (Routine) - Closed Specialty Diagnoses / Procedures Referred By Contact Refer red To Contact Diagnoses Julián Carpio M.D. [facility] Procedures Breath test, Hydrogen, Fructose - Fructose malabsorption [address] [place], [place] [phone] Referral ID Status Reason Start Date Expiration Date Visits Requ ested Visits Authorized [id number] Closed 08/19/2020 08/19/2021 1 1 Reason for Visit Outpatient (Routine) - Closed Specialty Diagnoses / Procedures Referred By Contact Refer red To Contact Diagnoses Julián Carpio M.D. [facility] Procedures Breath test, Hydrogen, Fructose - Fructose malabsorption [address] [place] [phone] Referral ID Status Reason Start Date Expiration Date Visits Requ ested Visits Authorized [id number] Closed 08/19/2020 08/19/2021 1 1 Encounter Details Date Type Department Care Team Description 09/26/2020 Hospital Encounter Division of Gastroenterology Julián Freeman in [facility] kristin Narayan M.D. [address] [place] [phone] [place], [place] [phone] Social History Tobacco Use Types Packs/Day Years [...] More than 4 times per year 11/16/2021 hinduism services? Do you belong to any clubs [...] until clear documented as of this encounter Plan of Treatment Upcoming Encounters Date Type Specialty Care Team Description 01/08/2022 Appointment Radiology Julián Edouard M.D. [address] [place] [address] (Wo rk) 01/08/2022 Ancillary Procedure Cardiovascular Disease Julián Edouard M.D. [address] [place] [phone] (Wo rk) 01/08/2022 Comprehensive Visit Thoracic Surgery Tess Raphael M.D. [address] [place] [phone] (Wo rk) Scheduled Orders Name Type Priority Associated Diagnoses Order S chedule Breath test, Hydrogen, GI Routine Flatulence Once for 1 Occurrences Fructose - Fructose starting 09/26/2020 malabsorption until 09/27/19 21 documented as of this encounter Procedures Procedure Name Priority Date/Time Associated Diagnosis Comme nts HYDROGEN BREATH Routine 09/26/2020 1:36 PM Result s for this TEST CDT procedure are i n the results section. documented in this encounter Results Hydrogen Breath Test (09/26/2020 1:36 PM CDT) [facility] Method Time Signature Hydrogen Fructose 09/26/2020 [facility] Breath Test 3:53 PM CDT Peak H2 4 0 - 20 09/26/2020 [facility] Response ppm 3:53 PM CDT Hydrogen, 0 ppm 09/26/2020 [facility] Baseline 3:53 PM CDT Hydrogen, 30 4 ppm 09/26/2020 [facility] Minutes 3:53 PM CDT Hydrogen, 60 0 ppm 09/26/2020 [facility] Minutes 3:53 PM CDT Hydrogen, 90 0 ppm 09/26/2020 [facility] Minutes 3:53 PM CDT Hydrogen, 120 0 ppm 09/26/2020 [facility] Minutes 3:53 PM CDT Peak CH4 9 0 - 20 09/26/2020 [facility] Response ppm 3:53 PM CDT Methane, 21 ppm 09/26/2020 [facility] Baseline 3:53 PM CDT Methane, 30 30 ppm 09/26/2020 [facility] Minutes 3:53 PM CDT Methane, 60 12 ppm 09/26/2020 [facility] Minutes 3:53 PM CDT Methane, 90 13 ppm 09/26/2020 [facility] Minutes 3:53 PM CDT Methane, 120 14 ppm 09/26/2020 [facility] Minutes 3:53 PM CDT Symptoms See Comment 09/26/2020 [facility] 3:53 PM CDT Comment: REVISED RESULTS Negative breath test for fructose malabs orption (less than or equal to 19 PPM rise in breath hydrogen compared to base line). 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 ??Symptoms: ? Baseline: None ? 30 Minute: Diarrhea: Severe; Gas: Se kristan; Bloating: Mild; Cramps: Moderate ?? 60 Minute: Diarrhea: Severe; Gas: Se kristan; Cramps: Moderate ? 90 Minute: None ?? 120 Minute: Cramps: Mild ?? Elevated baseline hydrogen and/or methan e may reflect dietary non-compliance (e.g. consumption of slowly-digesting, f iber containing foods the day before the test) or other causes, such as sever e constipation. Alejo Butcher ([id number]) ?? ----PREVIOUSLY REPORTED ---- Negative breath test for fructose malabsorption (less than or equal to 19 PPM rise in breath hydrogen compared to baseline). 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 ??Symptoms: ? Baseline: None ? 30 Minute: Diarrhea: Severe; Gas: Se kristan; Bloating: Mild; Cramps: Moderate ?? 60 Minute: Diarrhea: Severe; Gas: Se kristan; Cramps: Moderate ? 90 Minute: None ?? 120 Minute: Cramps: Mild ?? Elevated baseline hydrogen and/or methan e may reflect dietary non-compliance (e.g. consumption of slowly-digesting, f iber containing foods the day before the test) or other causes. Alejo Butcher ([id number]) ?(Reported 2020 15:45) Specimen Anatomical Collection Method Collection Time Receive d Time (Source) Location / / Volume Laterality Breath 09/26/2020 1:36 PM 1:36 CDT PM CDT Julián Edouard M.D. LAB BODY FLUIDS AND STOOLS O RDERABLES Performing Organization Address City/State/ZIP Code Phon e Number [facility] - [address] [place], [place] [address] [place] [address] Laboratories-[facility] [address] documented in this encounter Visit Diagnoses Diagnosis Flatulence documented in this encounter Additional Health Concerns Infection Onset Date Last Indicated Resolved Time COVID19 Pending 09/19/2020 09/26/2020 09/27/2020 5:53 AM CDT Assessment Noted Time PHQ-9 Depression Total Score: 15 04/21/2018 1:00 PM CS T documented as of this encounter Care Teams Cop Winder Relationship Specialty Start Date End Date Elsewhere, Pcp PCP - General Internal Medicine 10/22/19 documented as of this encounter
--- OUTSIDE RECORDS SUMMARY | 2022-01-08 10:40 | XMS_ITS | Encounter Summary ---
:1970 Author Organization [facility] Address [address] [place] [address] Care Team Providers Name Role Phone Elsewhere, Pcp Primary Care Provider Unavailable Encounter Details Date Type Department Care Team Description 10/31/2020 Orders Only Division of Sawyer Nicholson, Medication T herapy Long Rheumatology in R.N. Term Not Anticoagulant [place], [place] [phone] (Primary Dx) [address] [facility] (Work) [place] [address] Social History Tobacco Use Types Packs/Day Years [...] or relatives? How often do you attend baptism or More than 4 times per year 11/16/2021 oriental orthodox services? Do you belong to any clubs or No 11/16/2021 organizations such as baptism groups, unions, fraternal or athletic groups, or [...] Appointment Radiology Julián Edouard M.D. [address] [place] [phone] (Wo rk) 01/08/2022 Ancillary Procedure Cardiovascular Disease Julián Edouard M.D. [address] [place] [phone] (Wo nile) 01/08/2022 Comprehensive Visit Thoracic Surgery Tess Raphael M.D. [address] [place] [phone] (Wo nile) documented as of this encounter Visit Diagnoses Diagnosis Medication Therapy Master Scheduler Not Anticoa gulant - Primary documented in this encounter Additional Health Concerns Assessment Noted Time PHQ-9 Depression Total Score: 15 04/21/2018 1:00 PM CS T documented as of this encounter Care Teams Plastic Cutter Relationship Specialty Start Date End Date Elsewhere, Pcp PCP - General Internal Medicine 10/22/19 documented as of this encounter
--- OUTSIDE RECORDS SUMMARY | 2022-01-08 10:40 | XMS_ITS | Encounter Summary ---
:1970 Author Organization [facility] Address [address] [place] [address] Care Team Providers Name Role Phone Elsewhere, Pcp Primary Care Provider Unavailable Reason for Referral Medication Prior Authorization - Denied Specialty Diagnoses / Procedures Referred By Contact Refer red To Contact Velma Munson A PRN, C.N.P. [address] [place] [phone] Referral ID Status Reason Start Date Expiration Date Visits Requ ested Visits Authorized [id number] Denied 1 1 Encounter Details Date Type Department Care Team Description 11/05/2020 Clinical Communication Division of Velma Munson Rheumatology in LONG Schwartz, C.N.P. [place], [place] [address] [place] [address] [address] [place] [phone] Social History Tobacco Use Types Packs/Day [...] More than 4 times per year 11/16/2021 cheondoism services? Do you belong to any clubs [...] documented as of this encounter Miscellaneous Notes Addendum Note - Velma Munson APRN, C.N.P. - 11/06/2020 4:36 PM CDT Addended by: VELMA MUNSON on: 11/06/2020 04:36 PM Modules accepted: Orders Telephone Encounter - Velma Munson APRN, C.N.P. - 11/06/2020 4:35 PM CDT I agree with trying the voltaren gel to see if that helps the hand pain due to over activity. Addendum Note - Jagdeep Espinoza R.N. - 11/05/2020 1:34 PM CDT Addended by: JAGDEEP ESPINOZA on: 11/05/2020 01:34 PM Modules accepted: Orders Telephone Encounter - Jagdeep Espinoza R.N. - 11/05/2020 1:30 PM CDT ASSESSMENT Patient notes that her hands are more achy and throbbing, but did note it did wake her up last night. She rated the pain last night 8-9/10. She is working today and using her hands and rates her pain 5-6/10. She does not have any warmth in her hands but does have some swelling. She is agreeable to try the Voltaren gel. PLAN Will pend prescription to Velma. Disposition/Recommendation: recommended continue engagement in self-management activities. Information/Education: patient/caller able to teach back. Caller agreeable to plan of care: yes. The following references were used: nursing clinical judgement. Telephone Encounter - Irene Andujar R.N. - 11/05/2020 7:49 AM CDT Patient called in to update Velma and let her know that she is getting better on Methotrexate but her hands are now worsening. She continues to garden and is not getting much sleep due to the pain. Discussed with Velma and she would appreciate if we contacted patient to review where her symptomsand which joints are specifically bothering her on her hands. Also offer use of Voltaren gel, but Velma noted that she will not provide Toradol or pain medication for this. documented in this encounter Plan of Treatment Upcoming Encounters Date Type Specialty Care Team Description 01/08/2022 Appointment Radiology Julián Edouard M.D. [address] [place] [address] ([place]o nile) 01/08/2022 Ancillary Procedure Cardiovascular Disease Julián Edouard M.D. [address] [place] [address] (Wo rk) 01/08/2022 Comprehensive Visit Thoracic Surgery Tess Raphael M.D. [address] [place] [phone] (Earl rk) documented as of this encounter Visit Diagnoses Not on filedocumented in this encounter Additional Health Concerns Assessment Noted Time PHQ-9 Depression Total Score: 15 04/21/2018 1:00 PM CS T documented as of this encounter Care Teams Pot Firer Relationship Specialty Start Date End Date Elsewhere, Pcp PCP - General Internal Medicine 10/22/19 documented as of this encounter
--- OUTSIDE RECORDS SUMMARY | 2022-01-08 10:40 | XMS_ITS | Encounter Summary ---
:1970 Author Organization [facility] Address [address] [place] [address] Care Team Providers Name Role Phone Elsewhere, Pcp Primary Care Provider Unavailable Encounter Details Date Type Department Care Team Description 11/15/2020 Hospital Encounter Department of Chris Edouard dural Lab Exam; Laboratory Medicine Julián Narayan M.D. Negative COVID-19 Test (Contact With And (Suspected) Exposure To COVID-19) in [place] [address] [address] [place], [place] [address] [place] [phone] [place], [place] [phone] (Work) [phone] Social History Tobacco Use Types Packs/Day Years [...] 11/16/2021 organizations such as latter-day groups, unions, fraternal or athletic groups, or [...] to pay for the very basics like [employer] hat hard 11/16/2021 food, housing, medical care, [...] (BD Inject 1 Syringe 12 Syringe 3 07/02/ 2021 Tuberculin Syringe) 1 mL under the skin once 27 x 1/2 syringe a week. For use with weekly Methotrexate injections folic acid 1 mg Take 1 tablet (1 mg 90 tablet 1 07/17/2020 11/27/2020 tabletIndications: total) by mouth Arthritis Inflammatory daily. ([facility]) hydrOXYchloroQUINE Take 1-2 tablets 135 tablet 3 05/27/2020 06/01/2021 (PLAQUENIL) 200 mg (200-400 mg total) tabletIndications: by mouth daily. Arthritis Inflammatory Take 2 tab on even (HCC) days, 1 on odd. methotrexate 25 mg/mL Inject 0.8 mL (20 10 mL 1 021 11/27/2020 injectionIndications: mg total) under the Arthritis Inflammatory skin once a week. ([facility]) [id number] Drink 1st portion 1 box(es) 0 10/07/20202021 [id number] of prep at 6 PM the (MOVIPREP) 100-7.5-2.691 evening before. 2nd gram per packet portion must be started 3 hours before and finished 2 hours prior to report time pilocarpine (SALAGEN) 5 Take 1 tablet (5 mg 90 tablet 5 08/06/2021 mg tabletIndications: total) by mouth 3 Xerostomia (three) times a day. predniSONE (DELTASONE) 5 Take 30mg daily 105 tablet 0 201911/19/2020 mg tablet (15mg twice daily) for 3 days, then 20mg daily (10mg twice daily) for 3 days, then 15mg daily for 3 days, than 10mg daily for 3 days, then off. triamcinolone (KENALOG) Apply 1 application 30 g 0 11/19/2020 0.1 % ointment topically 2 (two) times a day. To back for 1-2 weeks until clear documented as of this encounter Plan of Treatment Upcoming Encounters Date Type Specialty Care Team Description 01/08/2022 Appointment Radiology Julián Edouard M.D. [address] [place] [address] (Wo rk) 01/08/2022 Ancillary Procedure Cardiovascular Disease Julián Edouard M.D. [address] [place] [phone] (Wo rk) 01/08/2022 Comprehensive Visit Thoracic Surgery Tess Raphael M.D. 200 [place] [phone] (Wo rk) documented as of this encounter Procedures Procedure Name Priority Date/Time Associated Diagnosis Comme nts SARS CORONAVIRUS-2 Routine 11/15/2020 11:18 Preprocedura l Lab Exam Results for this RNA, V AM CDT Negative COVID-19 Test proce dure are in (Contact With And the result s (Suspected) Exposure section . To COVID-19) documented in this encounter Results SARS Coronavirus-2 RNA, V Asymptomatic (11/15/2020 11:18 AM CDT) [facility] Method Time Signature SARS-CoV-2 Swab, 11/15/2020 MKTO Specimen Nasopharynx 10:24 PM Source CDT SARS CoV-2 Undetected Undetected 11/15/2020 MKTO RNA, TMA 10:24 PM CDT Comment: SARS-CoV-2 RNA absent. This result does not rule out COVID-19 in the patient, as the sensitivity of the test depends o n the timing of the specimen collection and the quality of the specim en. Result should be correlated with patient's history and clinical presentat ion. ----ADDITIONAL INFORMATION---- This molecular amplification test was pe rformed using the Aptima SARS-CoV-2 assay ([employer] on the Retevos tem under emergency use authorization (EUA) by the U.S. Food and Drug Administ ration. Fact sheets for this EUA assay can be fo und at the following links: For Healthcare Providers: https://www.fd a.gov/media/746899/download For Patients: https://www.fda.gov/media/ 636258/download Specimen Anatomical Collection Method Collection Time Receive d Time (Source) Location / / Volume Laterality Varies 11/15/2020 11:18 11/15/2020 4:01 (Nasopharynx) AM CDT PM CDT Julián Edouard M.D. LAB MICROBIOLOGY - GENERAL O RDBIJAL Performing Organization Address City/State/ZIP Code Phon e Number [facility]- [address] [place] [id number] [place] [address] [place] [address] System in [place] [address] [facility] documented in this encounter Visit Diagnoses Diagnosis Preprocedural Lab Exam Negative COVID-19 Test (Contact With And (Suspected) Exposure To COVID-19) documented in this encounter Additional Health Concerns Infection Onset Date Last Indicated Resolved Time COVID19 Pending 11/15/2020 11/15/2020 11/15/2020 10:25 PM CDT Assessment Noted Time PHQ-9 Depression Total Score: 15 04/21/2018 1:00 PM CS T documented as of this encounter Care Teams Development Coordinator Relationship Specialty Start Date End Date Elsewhere, Pcp PCP - General Internal Medicine 10/22/19 documented as of this encounter
--- OUTSIDE RECORDS SUMMARY | 2022-01-08 10:40 | XMS_ITS | Encounter Summary ---
:1970 Author Organization [facility] Address [address] [place] [address] Care Team Providers Name Role Phone Elsewhere, Pcp Primary Care Provider Unavailable Reason for Referral Outpatient (Routine) - Closed Specialty Diagnoses / Procedures Referred By Contact Refer red To Contact Rheumatology Velma Munson APRN [facility] C[facility] [address] [place] [phone] Referral ID Status Reason Start Date Expiration Date Visits Requ ested Visits Authorized [id number] Closed 10/02/2020 10/02/2021 1 1 Scheduling Instructions 9am slot Specialty Diagnoses / Procedures Referred By Contact Refer red To Contact Velma Munson A PRN, C.N.P. [address] [phone] Referral ID Status Reason Start Date Expiration Date Visits Requ ested Visits Authorized Reason for Visit Reason Comments Medication Question Encounter Details Date Type Department Care Team Description 10/01/2020 Clinical Division of Velma Munson Medication Communication Rheumatology in LONG Schwartz, C.N.P. Question [place], [place] [address] [place] [address] [place] [phone] Social History Tobacco Use Types Packs/Day [...] or relatives? How often do you attend spiritism or More than 4 times per year 11/16/2021 taoism services? Do you belong to any clubs or No 11/16/2021 organizations such as spiritism groups, unions, fraternal or athletic groups, or [...] Miscellaneous Notes Telephone Encounter - Sarah Stewart RLennoxN. - 10/02/2020 10:00 AM CDT SUBJECTIVE CHIEF COMPLAINT / REASON FOR CALL Medication Question Information Discussed I provided patient with the information for the increase of Methotrexate to 0.6 mL. Patient also requested a refill for the Methotrexate. I confirmed her pharmacy. PLAN Disposition/Recommendation: self-care , appropriate at this time, patient encouraged to call back with questions Information/Education: patient/caller able to teach back Caller agreeable to plan of care: yes The following references were used: provider Velma Munson APRN, LITIGATION ASSISTANT. Telephone Encounter - Velma Munson APRN, C.N.P. - 10/01/2020 4:52 PM CDT I have ordered the MTX protocol. We can increase the MTX to 0.6 mL. Telephone Encounter - Darleen Mak - 10/01/2020 3:36 PM CDT Caller/authorization: [place] Provider/nurse: Jeimy Reason for call: Patient would like to know if you will be increasing or decreasing her methotrexatedose? If so will a new Rx be sent to her Pharmacy Follow-up requested: yes Patient portal Y/N/Offered Information:yes Preferred response (portal/phone): [phone] documented in this encounter Plan of Treatment Upcoming Encounters Date Type Specialty Care Team Description 01/08/2022 Appointment Radiology uJlián Edouard M.D. 200 [place] [phone] (Earl dowd) 01/08/2022 Ancillary Procedure Cardiovascular Disease Julián Edouard M.D. 200 [place] [phone] (Earl dowd) 01/08/2022 Comprehensive Visit Thoracic Surgery Tess Raphael M.D. 200 [place] [phone] (Earl dowd) Scheduled Referrals Name Type Priority Associated Order Schedule Diagnoses Rheumatology - Outpatient Referral Routine Arthritis Expect ed: Education visit Rheumatoid (HCC) 10/02/19 21 (clinic) (Approximate), Expires: 10/02/2023 Rheumatology nurse Outpatient Referral Routine Ex pected: visit (clinic) 10/28/2020 (Approximate), Expires: 10/03/2023 documented as of this encounter Visit Diagnoses Diagnosis Arthritis Rheumatoid (HCC) - Primary documented in this encounter Additional Health Concerns Assessment Noted Time PHQ-9 Depression Total Score: 15 04/21/2018 1:00 PM CS T documented as of this encounter Care Teams Supervisor Color Making Relationship Specialty Start Date End Date Elsewhere, Pcp PCP - General Internal Medicine 10/22/19 documented as of this encounter
--- OUTSIDE RECORDS SUMMARY | 2022-01-08 10:40 | XMS_ITS | Encounter Summary ---
:1970 Author Organization [facility] Address [address] [place] [address] Care Team Providers Name Role Phone Elsewhere, Pcp Primary Care Provider Unavailable Encounter Details Date Type Department Care Team Description 10/30/2020 Hospital Encounter Department of Velma Munson ation Therapy Laboratory Medicine LONG Schwartz, C.N .P. Retirement Not in [place] [phone] [facility] [phone] [place], [place] (Work) [phone] Social History Tobacco Use [...] More than 4 times per year 11/16/2021 confucianist services? Do you belong to any clubs [...] 1 on odd. methotrexate 25 mg/mL Inject 0.6 mL (15 8 mL 1 021 10/31/2020 injectionIndications: mg total) under Arthritis Inflammatory the skin once a (HCC) week. [id number] Drink 1st portion 1 box(es) 0 10/07/20202021 [id number] of prep at 6 PM (MOVIPREP) 100-7.5-2.691 the evening gram per packet before. 2nd portion must be started 3 hours before and finished 2 hours prior to report time pilocarpine (SALAGEN) 5 mg Take 1 tablet [...] 01/08/2022 Appointment Radiology Julián Edouard M.D. 200 [place] [phone] (Earl dowd) 01/08/2022 Ancillary Procedure Cardiovascular Disease Julián Edouard M.D. 200 [place] [phone] (Earl dowd) 01/08/2022 Comprehensive Visit Thoracic Surgery Tess Raphael M.D. [address] [place] [phone] (Wo rk) documented as of this encounter Procedures Procedure Name Priority Date/Time Associated Diagnosis Comme nts CBC WITH DIFFERENTIAL, B Routine 10/30/2020 5:53 Medication Th erapy Results for this PM CDT Vulnerability Assessment Analyst Not procedure are in Anticoagulant the results section. ASPARTATE Routine 10/30/2020 5:53 Medication Therapy Result s for this AMINOTRANSFERASE (AST), PM CDT Vulnerability Assessment Analyst Not pro cedure are in S/P Anticoagulant the results section. CREATININE WITH EGFR, Routine 10/30/2020 5:53 Medication Thera py Results for this S/P PM CDT Retirement Not procedure are in Anticoagulant the results section. documented in this encounter Results Creatinine with Estimated GFR (10/30/2020 5:53 PM CDT) athologist Signature Creatinine 0.89 0.59 - 10/30/2020 CNFL 1.04 mg/dL 6:20 PM CDT eGFR-Black/Afric 89 >=60 10/30/2020 CNFL an Czech mL/min/BSA 6:20 PM CDT Comment: ----ADDITIONAL INFORMATION---- Estimated GFR calculated using the 2009 CKD_EPI creatinine equation. eGFR Non-Black/ 77 >=60 mL/min/BSA 6:20 PM CDT CNFL Comment: ----ADDITIONAL INFORMATION---- Estimated GFR calculated using the 2009 CKD_EPI creatinine equation. Specimen Anatomical Collection Method Collection Time Receive d Time (Source) Location / / Volume Laterality Blood (Blood, 10/30/2020 5:53 PM 10/31/19 5:58 Venous) CDT PM CDT Jorge Polo APRNN.P. LAB BLOOD ADD-ON Performing Organization Address City/State/ZIP Code Phon e Number [facility]- [address] [place] [address] [facility] [place] [address] System in [address] AST (Aspartate Aminotransferase) (10/30/2020 5:53 PM CDT) [facility] Method Time Signature Aspartate 28 8 - 43 10/30/2020 CNFL Aminotransferase U/L 6:20 PM CDT (AST), P Specimen Anatomical Collection Method Collection Time Receive d Time (Source) Location / / Volume Laterality Blood (Blood, 10/30/2020 5:53 PM 10/31/19 5:58 Venous) CDT PM CDT Velma Munson APRN, C.N.P. LAB BLOOD ADD-ON Performing Organization Address City/State/[facility] Code Phon e Number [address] [address] [facility] [address] System [address] (ABNORMAL) CBC with Differential, Blood (10/30/2020 5:53 PM CDT) [employer] Method Time Signature Hemoglobin 14.0 11.6 - 10/30/2020 CNFL 15.0 g/dL 6:07 PM CDT Hematocrit 42.7 35.5 - 10/30/2020 CNFL 44.9 % 6:07 PM CDT Erythrocytes 4.99 3.92 - 10/30/2020 CNFL 5.13 6:07 PM CDT x10(12)/L MCV 85.6 78.2 - 10/30/2020 CNFL 97.9 fL 6:07 PM CDT RBC Distrib Width 14.4 12.2 - 10/30/2020 CNFL 16.1 % 6:07 PM CDT Platelet Count 264 157 - 371 10/30/2020 CNFL x10(9)/L 6:07 PM CDT Leukocytes 10.3 (H) 3.4 - 9.6 10/30/2020 CNFL x10(9)/L 6:07 PM CDT Neutrophils 6.87 (H) 1.56 - 10/30/2020 CNFL 6.45 6:07 PM CDT x10(9)/L Lymphocytes 2.75 0.95 - 10/30/2020 CNFL 3.07 6:07 PM CDT x10(9)/L Monocytes 0.56 0.26 - 10/30/2020 CNFL 0.81 6:07 PM CDT x10(9)/L Eosinophils 0.12 0.03 - 10/30/2020 CNFL 0.48 6:07 PM CDT x10(9)/L Basophils 0.02 0.01 - 10/30/2020 CNFL 0.08 6:07 PM CDT x10(9)/L Specimen Anatomical Collection Method Collection Time Receive d Time (Source) Location / / Volume Laterality Blood (Blood, 10/30/2020 5:53 PM 10/31/19 5:58 Venous) CDT PM CDT Velma Munson APRN C.N.P. LAB BLOOD ADD-ON Performing Organization Address City/State/ZIP Code Phon e Number [address] [address] [facility] [place] [address] System in [address] documented in this encounter Visit Diagnoses Diagnosis Medication Therapy Retirement Not Anticoa gulant documented in this encounter Additional Health Concerns Assessment Noted Time PHQ-9 Depression Total Score: 15 04/21/2018 1:00 PM CS T documented as of this encounter Care Teams Sound Person Relationship Specialty Start Date End Date Elsewhere, Pcp PCP - General Internal Medicine 10/22/19 documented as of this encounter
--- OUTSIDE RECORDS SUMMARY | 2022-01-08 10:40 | XMS_ITS | Encounter Summary ---
:1970 Author Organization [facility] Address [address] [place] [address] Care Team Providers Name Role Phone Elsewhere, Pcp Primary Care Provider Unavailable Encounter Details Date Type Department Care Team Description 11/11/2020 Orders Only Pharmacy Prior Auth RO Elsewhere, Pcp [phone] Social History Tobacco Use Types Packs/Day Years [...] or relatives? How often do you attend nondenominational or More than 4 times per year 11/16/2021 mandaeism services? Do you belong to any clubs or No 11/16/2021 organizations such as nondenominational groups, unions, fraternal or athletic groups, or [...] Appointment Radiology Julián Edouard M.D. [address] [place] [address] (Wo rk) 01/08/2022 Ancillary Procedure Cardiovascular Disease Julián Edouard M.D. [address] [place] [phone] (Wo rk) 01/08/2022 Comprehensive Visit Thoracic Surgery Tess Raphael M.D. [address] [place] [phone] (Wo rk) documented as of this encounter Visit Diagnoses Not on filedocumented in this encounter Additional Health Concerns Infection Onset Date Last Indicated Resolved Time COVID19 Pending 11/15/2020 11/15/2020 11/15/2020 10:25 PM CDT Assessment Noted Time PHQ-9 Depression Total Score: 15 04/21/2018 1:00 PM CS T documented as of this encounter Care Teams Instrument Lens Inspector Relationship Specialty Start Date End Date Elsewhere, Pcp PCP - General Internal Medicine 10/22/19 documented as of this encounter
--- OUTSIDE RECORDS SUMMARY | 2022-01-08 10:40 | XMS_ITS | Encounter Summary ---
:1970 Author Organization [facility] Address [address] [place] [address] Care Team Providers Name Role Phone Elsewhere, Pcp Primary Care Provider Unavailable Reason for Visit Reason Comments Labs Only Encounter Details Date Type Department Care Team Description 10/01/2020 Documentation Division of Rheumatology Monico Gomes, Labs Only in [facility] kristin R.N. [address] [facility] [address] [place] [phone] [place], [place] [phone] Social History Tobacco Use Types Packs/Day Years [...] More than 4 times per year 11/16/2021 pentecostalism services? Do you belong to any clubs [...] documented as of this encounter Progress Notes Nano Gomes R.N. - 10/01/2020 12:26 PM CDT ASSESSMENT Rheumatology Monitoring Labs completed on 09/24/2020 for methotrexate monitoring were reviewed per provider order. All monitored labs are within order range. Labs reviewed: absolute neutrophil count, AST, creatinine, hemoglobin, leukocytes, platelets PLAN Patient to continue with current plan of care. Patient next due for monitoring labs in one month. documented in this encounter Plan of Treatment Upcoming Encounters Date Type Specialty Care Team Description 01/08/2022 Appointment Radiology Julián Edouard M.D. [address] [place] [phone] (Earl dowd) 01/08/2022 Ancillary Procedure Cardiovascular Disease Julián Edouard M.D. [address] [place] [phone] (Earl dowd) 01/08/2022 Comprehensive Visit Thoracic Surgery Tess Raphael M.D. [address] [place] [phone] (Earl dowd) documented as of this encounter Results Creatinine with Estimated GFR (10/30/2020 5:53 PM CDT) P athologist Signature Creatinine 0.89 0.59 - 10/30/2020 CNFL 1.04 mg/dL 6:20 PM CDT eGFR-Black/Afric 89 >=60 10/30/2020 CNFL an Chadian mL/min/BSA 6:20 PM CDT Comment: ----ADDITIONAL INFORMATION---- Estimated GFR calculated using the 2009 CKD_EPI creatinine equation. eGFR Non-Black/ 77 >=60 mL/min/BSA 6:20 PM CDT CNFL Comment: ----ADDITIONAL INFORMATION---- Estimated GFR calculated using the 2009 CKD_EPI creatinine equation. Specimen Anatomical Collection Method Collection Time Receive d Time (Source) Location / / Volume Laterality Blood (Blood, 10/30/2020 5:53 PM 10/31/19 5:58 Venous) CDT PM CDT Karlene Polo APRN.N.P. LAB BLOOD ADD-ON Performing Organization Address City/[facility] Phon e Number [address] [address] [place] [address] [address] [place] [address] [address] AST (Aspartate Aminotransferase) (10/30/2020 5:53 PM CDT) [facility] Method Time Signature Aspartate 28 8 - 43 10/30/2020 CNFL Aminotransferase U/L 6:20 PM CDT (AST), P Specimen Anatomical Collection Method Collection Time Receive d Time (Source) Location / / Volume Laterality Blood (Blood, 10/30/2020 5:53 PM 10/31/19 5:58 Venous) CDT PM CDT Velma Munson APRN, C.N.P. LAB BLOOD ADD-ON Performing Organization Address [facility] Phon e Number [address] [address] [facility] [place] [phone] [address] (ABNORMAL) CBC with Differential, Blood (10/30/2020 5:53 PM CDT) [facility] Method Time Signature Hemoglobin 14.0 11.6 - [...] Laterality Blood (Blood, 10/30/2020 5:53 PM 10/31/19 21 5:58 Venous) CDT PM CDT Jorge Polo APRNNLennoxPLennox LAB BLOOD ADD-ON Performing Organization Address City/State/ZIP Code Phon e Number [facility]- [address] [place] [address] [place] [address] System in [address] documented in this encounter Visit Diagnoses Diagnosis Medication Therapy Dry Clipper Tender Not Anticoa gulant - Primary documented in this encounter Additional Health Concerns Assessment Noted Time PHQ-9 Depression Total Score: 15 04/21/2018 1:00 PM CS T documented as of this encounter Care Teams Trench Trimmer Fine Relationship Specialty Start Date End Date Elsewhere, Pcp PCP - General Internal Medicine 10/22/19 documented as of this encounter
--- OUTSIDE RECORDS SUMMARY | 2022-01-08 10:40 | XMS_ITS | Encounter Summary ---
:1970 Author Organization [facility] Address [address] [place] [address] Care Team Providers Name Role Phone Elsewhere, Pcp Primary Care Provider Unavailable Reason for Visit Reason Comments Comprehensive GI Results Encounter Details Date Type Department Care Team Description 09/30/2020 Clinical Division of Lolita Edouard I; Communication Gastroenterology in Abby Wilde [place], [place] Alex [address] [facility] [address] [facility] [address] [facility] [phone] [place] [address] Social History Tobacco Use Types Packs/Day Years [...] More than 4 times per year 11/16/2021 yarsani services? Do you belong to any clubs [...] Appointment Radiology Julián Edouard M.D. [address] [place] [address] (Wo rk) 01/08/2022 Ancillary Procedure Cardiovascular Disease Julián Edouard M.D. [address] [place] [address] (Wo rk) 01/08/2022 Comprehensive Visit Thoracic Surgery Tess Raphael M.D. [address] [place] [phone] (Wo rk) documented as of this encounter Visit Diagnoses Not on filedocumented in this encounter Additional Health Concerns Assessment Noted Time PHQ-9 Depression Total Score: 15 04/21/2018 1:00 PM CS T documented as of this encounter Care Teams Parts Assembler Relationship Specialty Start Date End Date Elsewhere, Pcp PCP - General Internal Medicine 10/22/19 documented as of this encounter
--- OUTSIDE RECORDS SUMMARY | 2022-01-08 10:40 | XMS_ITS | Encounter Summary ---
:1970 Author Organization [facility] Address [address] [place] [address] Care Team Providers Name Role Phone Elsewhere, Pcp Primary Care Provider Unavailable Reason for Visit Reason Comments Lab Monitoring 1st delay Encounter Details Date Type Department Care Team Description 09/17/2020 Documentation Division of Velma Munson Lab Monitor ing (1st Rheumatology in L, CART PUSHER, C.N.P. delay) [place], [place] [address] [place] [address] [place] [address] [phone] Social History Tobacco Use Types Packs/Day Years [...] many times do you More than three myranad es a week 11/16/2021 talk on the phone with family, friends, or neighbors? How often do you get together with friends Never 11/16/2021 or relatives? How often do you attend christian or More than 4 times per year 11/16/2021 holiness services? Do you belong to any clubs or No 11/16/2021 organizations such as christian groups, unions, fraternal or athletic groups, or [...] documented as of this encounter Progress Notes Sawyer Nicholson R.N. - 09/17/2020 2:53 PM CDT Patient missed scheduled lab appointment for medication monitoring. Nursing contacted patient via portal and provided laboratory medication monitoring patient education. If needed a lab letter instructing patient of need to complete medication monitoring labs will be sent. Patient will be contacted to reschedule lab appointment. Hansa Padilla - 09/17/2020 2:53 PM CDT Have rescheduled to 09/24. documented in this encounter Plan of Treatment Upcoming Encounters Date Type Specialty Care Team Description 01/08/2022 Appointment Radiology Julián Edouard M.D. [address] [place] [phone] (Wo nile) 01/08/2022 Ancillary Procedure Cardiovascular Disease Julián Edouard M.D. [address] [place] [phone] (Wo nile) 01/08/2022 Comprehensive Visit Thoracic Surgery Tess Raphael M.D. [address] [place] [phone] (Wo rk) documented as of this encounter Visit Diagnoses Not on filedocumented in this encounter Additional Health Concerns Assessment Noted Time PHQ-9 Depression Total Score: 15 04/21/2018 1:00 PM CS T documented as of this encounter Care Teams Welding Machine Operator Plasma Arc Relationship Specialty Start Date End Date Elsewhere, Pcp PCP - General Internal Medicine 10/22/19 documented as of this encounter
--- OUTSIDE RECORDS SUMMARY | 2022-01-08 10:40 | XMS_ITS | Encounter Summary ---
:1970 Author Organization [facility] Address [address] [place] [address] Care Team Providers Name Role Phone Elsewhere, Pcp Primary Care Provider Unavailable Reason for Referral Outpatient (Routine) - Closed Specialty Diagnoses / Procedures Referred By Contact Refer red To Contact Diagnoses Diarrhea Persistent Unexplained Julián Edouard M.D. [facility] Procedures Colonoscopy [address] [place], [place] [address] Referral ID Status Reason Start Date Expiration Date Visits Requ ested Visits Authorized [id number] Closed 10/07/2020 10/07/2021 1 1 Encounter Details Date Type Department Care Team Description 10/07/2020 Orders Only Division of Sb Edouard Persis tent Gastroenterology in Julián Narayan M.D. Unexplained (Primary [place], [place] [address] [facility] [address] [place] [phone] Social History Tobacco Use Types Packs/Day Years [...] or relatives? How often do you attend religion or More than 4 times per year 11/16/2021 zoroastrianism services? Do you belong to any clubs or No 11/16/2021 organizations such as religion groups, unions, [employer] or athletic groups, or school groups? How [...] Appointment Radiology Julián Edouard M.D. [address] [place] [address] (Earl dowd) 01/08/2022 Ancillary Procedure Cardiovascular Disease Julián Edouard M.D. [address] [place] [phone] (Earl dowd) 01/08/2022 Comprehensive Visit Thoracic Surgery Tess Raphael M.D. [address] [place] [phone] (Earl dowd) documented as of this encounter Visit Diagnoses Diagnosis Diarrhea Persistent Unexplained - Primar y documented in this encounter Additional Health Concerns Assessment Noted Time PHQ-9 Depression Total Score: 15 04/21/2018 1:00 PM CS T documented as of this encounter Care Teams Spindraw Operator Relationship Specialty Start Date End Date Elsewhere, Pcp PCP - General Internal Medicine 10/22/19 documented as of this encounter
--- OUTSIDE RECORDS SUMMARY | 2022-01-08 10:40 | XMS_ITS | Encounter Summary ---
:1970 Author Organization [facility] Address [address] [place] [address] Care Team Providers Name Role Phone Elsewhere, Pcp Primary Care Provider Unavailable Encounter Details Date Type Department Care Team Description 09/24/2020 Hospital Encounter Department of Velma Munson ation Therapy Laboratory Medicine LONG Schwartz, C.N .P. Mcfp Not and Pathology, [address] [place] [address] in [facility] [address] [place] [phone] [place] [address] (Work) [place], [place] [phone] (Fax) [phone] Social History Tobacco Use Types Packs/Day Years [...] or relatives? How often do you attend denominational or More than 4 times per year 11/16/2021 gnosticism services? Do you belong to any clubs or No 11/16/2021 organizations such as denominational groups, unions, fraternal or athletic groups, or [...] 01/08/2022 Appointment Radiology Julián Edouard M.D. 200 [place] [phone] (Earl dowd) 01/08/2022 Ancillary Procedure Cardiovascular Disease Julián Edouard M.D. 200 [place] [phone] (Earl dowd) 01/08/2022 Comprehensive Visit Thoracic Surgery Tess Raphael M.D. 200 [place] [phone] (Earl dowd) documented as of this encounter Procedures Procedure Name Priority Date/Time Associated Diagnosis Comme nts CBC WITH DIFFERENTIAL, B Routine 09/24/2020 1:57 Medication Th erapy Results for this PM CDT Armature Tester Not procedure are in Anticoagulant the results section. ASPARTATE Routine 09/24/2020 1:57 Medication Therapy Result s for this AMINOTRANSFERASE (AST), PM CDT Armature Tester Not pro cedure are in S/P Anticoagulant the results section. CREATININE WITH EGFR, Routine 09/24/2020 1:57 Medication Thera py Results for this S/P PM CDT Armature Tester Not procedure are in Anticoagulant the results section. documented in this encounter Results Creatinine with Estimated GFR (09/24/2020 1:57 PM CDT) P athologist Signature Creatinine 0.81 0.59 - 09/24/2020 DTL 1.04 mg/dL 3:07 PM CDT eGFR-Non 86 >=60 09/24/2020 DTL Black/ mL/min/BSA 3:07 PM CDT Dominican Comment: ----ADDITIONAL INFORMATION---- Estimated GFR calculated using the 2009 CKD_EPI creatinine equation. eGFR-Black/ >90 >=60 mL/min/BSA 2020 3:07 PM CDT DTL Comment: ----ADDITIONAL INFORMATION---- Estimated GFR calculated using the 2009 CKD_EPI creatinine equation. Specimen Anatomical Collection Method Collection Time Receive d Time (Source) Location / / Volume Laterality Blood (Blood, 09/24/2020 1:57 PM 09/25/19 21 2:21 Venous) CDT PM CDT Velma Munson APRN C.N.P. LAB BLOOD ADD-ON Performing Organization Address City/State/ZIP Code Phon e Number [facility] - [address] [place], [place] [address] [facility] [place] [address] [facility] [address] AST (Aspartate Aminotransferase) (09/24/2020 1:57 PM CDT) Patholo gist Method Time Signature Aspartate 17 8 - 43 09/24/2020 DTL Aminotransferase U/L 3:07 PM CDT (AST), S Specimen Anatomical Collection Method Collection Time Receive d Time (Source) Location / / Volume Laterality Blood (Blood, 09/24/2020 1:57 PM 09/25/19 21 2:21 Venous) CDT PM CDT Velma Schwartz Jeimy ALVES C.N.P. LAB BLOOD ADD-ON Performing Organization Address City/State/ZIP Code Phon e Number [facility] - 200 [place], [place] [address] [facility] [place] [address] [facility] [address] [facility] (ABNORMAL) CBC with Differential, Blood (09/24/2020 1:57 PM CDT) [facility] Method Time Signature Hemoglobin 14.6 11.6 - 09/24/2020 DTL 15.0 g/dL 2:27 PM CDT Hematocrit 46.8 (H) 35.5 - 09/24/2020 DTL 44.9 % 2:27 PM CDT Erythrocytes 5.22 (H) 3.92 - 09/24/2020 DTL 5.13 2:27 PM CDT x10(12)/L MCV 89.7 78.2 - 09/24/2020 DTL 97.9 fL 2:27 PM CDT RBC Distrib Width 14.8 12.2 - 09/24/2020 DTL 16.1 % 2:27 PM CDT Platelet Count 305 157 - 371 09/24/2020 DTL x10(9)/L 2:27 PM CDT Leukocytes 8.0 3.4 - 9.6 09/24/2020 DTL x10(9)/L 2:27 PM CDT Neutrophils 5.90 1.56 - 09/24/2020 DTL 6.45 2:27 PM CDT x10(9)/L Lymphocytes 1.54 0.95 - 09/24/2020 DTL 3.07 2:27 PM CDT x10(9)/L Monocytes 0.38 0.26 - 09/24/2020 DTL 0.81 2:27 PM CDT x10(9)/L Eosinophils 0.11 0.03 - 09/24/2020 DTL 0.48 2:27 PM CDT x10(9)/L Basophils 0.04 0.01 - 09/24/2020 DTL 0.08 2:27 PM CDT x10(9)/L Specimen Anatomical Collection Method Collection Time Receive d Time (Source) Location / / Volume Laterality Blood (Blood, 09/24/2020 1:57 PM 09/25/19 21 2:20 Venous) CDT PM CDT Velma Munson APRN, C.N.P. LAB BLOOD ADD-ON Performing Organization Address City/State/[facility] Code Phon e Number [facility] - [address] [place], [place] [address] [facility] [place] [address] [facility] [address] documented in this encounter Visit Diagnoses Diagnosis Medication Therapy Armature Tester Not Anticoa gulant documented in this encounter Additional Health Concerns Infection Onset Date Last Indicated Resolved Time COVID19 Pending 09/19/2020 09/26/2020 09/27/2020 5:53 AM CDT Assessment Noted Time PHQ-9 Depression Total Score: 15 04/21/2018 1:00 PM CS T documented as of this encounter Care Teams Personnel Specialist Relationship Specialty Start Date End Date Elsewhere, Pcp PCP - General Internal Medicine 10/22/19 documented as of this encounter
--- OUTSIDE RECORDS SUMMARY | 2022-01-08 10:40 | XMS_ITS | Encounter Summary ---
:1970 Author Organization [facility] Address [address] [place] [address] Care Team Providers Name Role Phone Elsewhere, Pcp Primary Care Provider Unavailable Reason for Visit Outpatient (Routine) - Closed Specialty Diagnoses / Procedures Referred By Contact Refer red To Contact Rheumatology Velma Munson APRN, [facility] C.N.P. [address] [place] [phone] Referral ID Status Reason Start Date Expiration Date Visits Requ ested Visits Authorized [id number] Closed 10/02/2020 10/02/2021 1 1 Encounter Details Date Type Department Care Team Description 10/31/2020 Virtual Visit Division of Velma Munson APRN, C.N.P. [address] [place] [phone] Arthritis Rheumatoid [facility]. [address] [place] [phone] ([facility]) [place], [place] [address] [place] [phone] Social History Tobacco Use Types Packs/Day Years [...] More than 4 times per year 11/16/2021 judaism services? Do you belong to any clubs or No 11/16/2021 organizations such as latter day groups, unions, [employer] or athletic groups, or school groups? How [...] Notes Kaylie Vu M.A.N., R.N. - 10/31/2020 11:30 AM CDT I attempted to call Waleska for nurse phone visit for Methotrexate adjustment. No answer after multiple attempts. documented in this encounter Plan of Treatment Upcoming Encounters Date Type Specialty Care Team Description 01/08/2022 Appointment Radiology Julián Edouard M.D. [address] [place] [address] (Wo rk) 01/08/2022 Ancillary Procedure Cardiovascular Disease Julián Edouard M.D. [address] [place] [phone] (Wo rk) 01/08/2022 Comprehensive Visit Thoracic Surgery Tess Raphael M.D. [address] [place] [address] (Wo rk) documented as of this encounter Visit Diagnoses Diagnosis Arthritis Rheumatoid (HCC) documented in this encounter Additional Health Concerns Assessment Noted Time PHQ-9 Depression Total Score: 15 04/21/2018 1:00 PM CS T documented as of this encounter Care Teams Care Tech Relationship Specialty Start Date End Date Elsewhere, Pcp PCP - General Internal Medicine 10/22/19 documented as of this encounter
--- OUTSIDE RECORDS SUMMARY | 2022-01-08 10:41 | XMS_ITS | Encounter Summary ---
:1970 Author Organization [facility] Address [address] [place] [address] Care Team Providers Name Role Phone Elsewhere, Pcp Primary Care Provider Unavailable Encounter Details Date Type Department Care Team Description 09/16/2020 Clinical Communication Division of Silke, Gastroenterology in Julián Narayan M.D. [place], [place] [address] [facility] [address] [place] [phone] [phone] Social History Tobacco Use Types Packs/Day Years [...] More than 4 times per year 11/16/2021 jain services? Do you belong to any clubs [...] to sleep or slept in a senior care (including now)? Education Answer Date Recorded What is the highest level of school you have Some college, n o degree 01/02/2019 completed or the highest degree you have received? Sex Assigned at Date Recorded Female 01/25/2018 11:49 AM CDT documented as of this encounter Plan of Treatment Upcoming Encounters Date Type Specialty Care Team Description 01/08/2022 Appointment Radiology Julián Edouard M.D. [address] [place] [address] (Wo rk) 01/08/2022 Ancillary Procedure Cardiovascular Disease Julián Edouard M.D. [address] [place] [phone] (Wo rk) 01/08/2022 Comprehensive Visit Thoracic Surgery Tess Raphael M.D. [address] [place] [phone] (Wo rk) documented as of this encounter Visit Diagnoses Diagnosis Gastro-Esophageal Reflux Disease With Es ophagitis Without Bleeding - Primary documented in this encounter Additional Health Concerns Infection Onset Date Last Indicated Resolved Time COVID19 Pending 09/19/2020 09/26/2020 09/27/2020 5:53 AM CDT Assessment Noted Time PHQ-9 Depression Total Score: 15 04/21/2018 1:00 PM CS T documented as of this encounter Care Teams Culinary Worker Relationship Specialty Start Date End Date Elsewhere, Pcp PCP - General Internal Medicine 10/22/19 documented as of this encounter
--- OUTSIDE RECORDS SUMMARY | 2022-01-08 10:41 | XMS_ITS | Encounter Summary ---
:1970 Author Organization [facility] Address [address] [place] [address] Care Team Providers Name Role Phone Elsewhere, Pcp Primary Care Provider Unavailable Reason for Visit Reason Comments P3 Symptoms exhaustion Encounter Details Date Type Department Care Team Description 06/02/2020 Clinical Division of Velma Munson P3 Symptoms Communication Rheumatology in L, AUDIOMETRIST, C.N.P. (exhaustion) [place], [place] [address] [facility] [address] [place] [phone] [phone] Social History Tobacco Use Types Packs/Day Years [...] Encounter - Velma Munson APRN, C.N.P. - 06/03/2020 4:40 PM COMMERCIAL ESTIMATOR I see she was able to get a GI appointment for 08/19/20. She will need to continue to check to see ifthere are cancellations. Regarding the fatigue she has not had her thyroid checked. I would like her to see her PCP for work up other causes. ERCIAL ESTIMATOR Telephone Encounter - Tamica Kramer - 06/02/2020 3:22 PM CST Caller/authorization: Provider/nurse: Reason for call: The patient is calling due to having extreme exhaustion and is wondering if there is anything Velma can do to help her with this as she is not sure why she continues to be so exhausted. In the note from last appt with Velma on 05/27 there is note of patient having possible seizure and the patient is wondering if this is what has affected her. Also, there are no GI consults available and pt is wondering what else could possibly be done for her for the GI symptoms. Follow-up requested: Patient portal Y/N/Offered Information: Preferred response (portal/phone): [phone] ERCIAL ESTIMATOR documented in this encounter Plan of Treatment Upcoming Encounters Date Type Specialty Care Team Description 01/08/2022 Appointment Radiology Julián Edouard M.D. [address] [place] [phone] (Wo rk) 01/08/2022 Ancillary Procedure Cardiovascular Disease Julián Edouard M.D. [address] [place] [phone] (Wo rk) 01/08/2022 Comprehensive Visit Thoracic Surgery Tess Raphael M.D. [address] [place] [phone] (Wo rk) documented as of this encounter Visit Diagnoses Not on filedocumented in this encounter Additional Health Concerns Assessment Noted Time PHQ-9 Depression Total Score: 15 04/21/2018 1:00 PM CS T documented as of this encounter Care Teams Concrete Mixer Relationship Specialty Start Date End Date Elsewhere, Pcp PCP - General Internal Medicine 10/22/19 documented as of this encounter
--- OUTSIDE RECORDS SUMMARY | 2022-01-08 10:41 | XMS_ITS | Encounter Summary ---
:1970 Author Organization [facility] Address [address] [place] [address] Care Team Providers Name Role Phone Elsewhere, Pcp Primary Care Provider Unavailable Encounter Details Date Type Department Care Team Description 07/17/2020 Education Division of Velma Munson APRN, C.N.P. [address] [place] [phone] Arthritis Inflammatory Rheumatology in Nano Gomes, R.N. [address] [place] [phone] ([facility]) [place], [place] [address] [place] [phone] Social History Tobacco Use Types Packs/Day Years [...] to pay for the very basics like zoiduw hat hard 11/16/2021 food, housing, medical care, [...] encounter Progress Notes Nano Gomes R.N. - 07/17/2020 4:30 PM CDT SUBJECTIVE REASON FOR VISIT Medication Education HISTORY OF PRESENT ILLNESS Waleska Diaz has a diagnosis of inflammatory Arthritis. Velma Munson, DISABILITY SPECIALIST, LUMBER TALLIER requestednursing assistance with medication education. Reviewed education on methotrexate with the patient. Discussed purpose, administration, precautions,risks, side effects, lab monitoring, and when to contact your provider. Subcutaneous administration was demonstrated and patient was able to teach back. All questions were answered. Provider would likepatient enrolled in our Medication monitoring system. [facility] Patient plans to start her Methotrexate this Tuesday07/18/2020. documented in this encounter Plan of Treatment Upcoming Encounters Date Type Specialty Care Team Description 01/08/2022 Appointment Radiology Julián Edouard M.D. [address] [place] [phone] (Earl dowd) 01/08/2022 Ancillary Procedure Cardiovascular Disease Julián Edouard M.D. [address] [place] [phone] (Earl dowd) 01/08/2022 Comprehensive Visit Thoracic Surgery Tess Raphael M.D. [address] [place] [phone] (Wo rk) documented as of this encounter Visit Diagnoses Diagnosis Arthritis Inflammatory (HCC) documented in this encounter Additional Health Concerns Assessment Noted Time PHQ-9 Depression Total Score: 15 04/21/2018 1:00 PM CS T documented as of this encounter Care Teams President [employer] Relationship Specialty Start Date End Date Elsewhere, Pcp PCP - General Internal Medicine 10/22/19 documented as of this encounter
--- OUTSIDE RECORDS SUMMARY | 2022-01-08 10:41 | XMS_ITS | Encounter Summary ---
:1970 Author Organization [facility] Address [address] [place] [address] Care Team Providers Name Role Phone Elsewhere, Pcp Primary Care Provider Unavailable Reason for Visit Reason Comments Lab Monitoring Encounter Details Date Type Department Care Team Description 08/20/2020 Documentation Division of Rheumatology in Sarah Stewart, Lab Monitoring [place], [place] R.N. [address] [facility] [address] [place] [address] [place], [place] [phone] Social History Tobacco Use Types Packs/Day Years [...] or relatives? How often do you attend rastafarian or More than 4 times per year 11/16/2021 alevism services? Do you belong to any clubs or No 11/16/2021 organizations such as rastafarian groups, unions, fraternal or athletic groups, or [...] documented as of this encounter Progress Notes Sarah Stewart R.N. - 08/20/2020 11:53 AM CDT ASSESSMENT Rheumatology Monitoring Labs completed on 08/18/20 for methotrexate monitoring were reviewed per provider [...] 01/08/2022 Appointment Radiology Julián Edouard M.D. [address] [place] [phone] (Earl dowd) 01/08/2022 Ancillary Procedure Cardiovascular Disease Julián Edouard M.D. [address] [place] [phone] (Earl dowd) 01/08/2022 Comprehensive Visit Thoracic Surgery Tess Raphael M.D. [address] [place] [address] [phone] (Earl dowd) documented as of this encounter Results Creatinine with Estimated GFR (09/24/2020 1:57 PM CDT) athologist Signature Creatinine 0.81 0.59 - 09/24/2020 DTL 1.04 mg/dL 3:07 PM CDT eGFR-Non 86 >=60 09/24/2020 DTL Black/ mL/min/BSA 3:07 PM CDT Slovak Comment: ----ADDITIONAL INFORMATION---- Estimated GFR calculated using the 2009 CKD_EPI creatinine equation. eGFR-Black/ >90 >=60 mL/min/BSA 2020 3:07 PM CDT DTL Comment: ----ADDITIONAL INFORMATION---- Estimated GFR calculated using the 2009 CKD_EPI creatinine equation. Specimen Anatomical Collection Method Collection Time Receive d Time (Source) Location / / Volume Laterality Blood (Blood, 09/24/2020 1:57 PM 09/25/19 21 2:21 Venous) CDT PM CDT Velma Munson APRN, Karlene.N.P. LAB BLOOD ADD-ON Performing Organization Address [facility] Phon e Number [facility] - [address] DTL [address] AST (Aspartate Aminotransferase) (09/24/2020 1:57 PM CDT) [facility] Method Time Signature Aspartate 17 8 - 43 09/24/2020 DTL Aminotransferase U/L 3:07 PM CDT (AST), S Specimen Anatomical Collection Method Collection Time Receive d Time (Source) Location / / Volume Laterality Blood (Blood, 09/24/2020 1:57 PM 09/25/19 21 2:21 Venous) CDT PM CDT Velma Munson APRN, C.N.P. LAB BLOOD ADD-ON Performing Organization Address City/[facility] Phon e Number [facility] - [address] (ABNORMAL) CBC with Differential, Blood (09/24/2020 1:57 PM CDT) [facility] [employer] Method Time Signature Hemoglobin 14.6 11.6 - [...] Laterality Blood (Blood, 09/24/2020 1:57 PM 09/25/19 2:20 Venous) CDT PM CDT Velma Munson APRN C.N.P. LAB BLOOD ADD-ON Performing Organization Address City/State/ZIP Code Phon e Number [facility] - 200 [place], [place] [address] [place] [address] [facility] [address] [facility] documented in this encounter Visit Diagnoses Diagnosis Medication Therapy Supervisor Insecticide Not Anticoa gulant - Primary documented in this encounter Additional Health Concerns Assessment Noted Time PHQ-9 Depression Total Score: 15 04/21/2018 1:00 PM CS T documented as of this encounter Care Teams Engineering Manager Relationship Specialty Start Date End Date Elsewhere, Pcp PCP - General Internal Medicine 10/22/19 documented as of this encounter
--- OUTSIDE RECORDS SUMMARY | 2022-01-08 10:41 | XMS_ITS | Encounter Summary ---
:1970 Author Organization [facility] Address [address] [place] [address] Care Team Providers Name Role Phone Elsewhere, Pcp Primary Care Provider Unavailable Reason for Visit Reason Comments Intake Assessment Encounter Details Date Type Department Care Team Description 05/26/2020 Clinical Division of Velma Munson Intake Stanley hawkins Communication Rheumatology in L, SCRUB TECH, C.N.P. [place], [place] [address] [facility] [address] [place] [phone] Social History Tobacco Use Types Packs/Day Years [...] More than 4 times per year 11/16/2021 congregation services? Do you belong to any clubs or No 11/16/2021 organizations such as worship groups, unions, fraternal or athletic groups, or [...] place to sleep or slept in a mcfp (including now)? Education Answer Date Recorded What is the highest level of school you have Some college, n o degree 01/02/2019 completed or the highest degree you have received? Sex Assigned at Date Recorded Female 01/25/2018 11:49 AM CDT documented as of this encounter Plan of Treatment Upcoming Encounters Date Type Specialty Care Team Description 01/08/2022 Appointment Radiology Julián Edouard M.D. [address] [place] [phone] (Wo rk) 01/08/2022 Ancillary Procedure Cardiovascular Disease Julián Edouard M.D. [address] [place] [phone] (Wo rk) 01/08/2022 Comprehensive Visit Thoracic Surgery Tess Raphael M.D. [address] [place] [phone] (Wo rk) documented as of this encounter Visit Diagnoses Not on filedocumented in this encounter Additional Health Concerns Assessment Noted Time PHQ-9 Depression Total Score: 15 04/21/2018 1:00 PM CS T documented as of this encounter Care Teams Glassie Relationship Specialty Start Date End Date Elsewhere, Pcp PCP - General Internal Medicine 10/22/19 documented as of this encounter
--- OUTSIDE RECORDS SUMMARY | 2022-01-08 10:41 | XMS_ITS | Encounter Summary ---
:[address] [facility] Address [address] [place] [address] Care Team Providers Name Role Phone Elsewhere, Pcp Primary Care Provider Unavailable Encounter Details Date Type Department Care Team Description 07/16/2020 Hospital Encounter Department of Velma Munson Laboratory Medicine Lana, LONG C.N .PLennox Inflammatory (HCC) in [place], [address] [place] [address] [place] [phone] [place], [place] [phone] (Work) [phone] Social History Tobacco Use Types Packs/Day Years [...] or relatives? How often do you attend yazidi or More than 4 times per year 11/16/2021 sabianism services? Do you belong to any clubs or No 11/16/2021 organizations such as yazidi groups, unions, fraternal or athletic groups, or [...] mouth every tablet morning. hydrOXYzine (ATARAX) 25 mg Take 25 mg by 0 tablet mouth every 6 (six) hours as needed for itching. SUMAtriptan (IMITREX Inject under the 0 5 STATDOSE) 6 mg/0.5 mL skin as needed. injection pen Uses 2-4x/month for migraine. Uses once and then once again after 1h if no effect. DULoxetine (CYMBALTA) 20 Take 1 capsule (20 90 capsule 1 07/17/[address] capsule mg total) by mouth at bedtime. hydrOXYchloroQUINE Take 1-2 tablets 135 tablet 3 05/27/2020 06/01/2021 (PLAQUENIL) 200 mg (200-400 mg total) tabletIndications: by mouth daily. Arthritis Inflammatory Take 2 tab on even (HCC) days, 1 on odd. pilocarpine (SALAGEN) 5 mg Take 1 tablet [...] days, then off. triamcinolone (KENALOG) Apply 1 30 g 0 08/29/2018 0 11/19/2020 0.1 % ointment application topically 2 (two) times a day. To back for 1-2 weeks until clear documented as of this encounter Plan of Treatment Upcoming Encounters Date Type Specialty Care Team Description 01/08/2022 Appointment Radiology Julián Edouard M.D. [address] [place] [phone] (Wo rk) 01/08/2022 Ancillary Procedure Cardiovascular Disease Julián Edouard M.D. [address] [place] [phone] (Earl rk) 01/08/2022 Comprehensive Visit Thoracic Surgery Tess Raphael M.D. [address] [place] [phone] (Earl rk) documented as of this encounter Procedures Procedure Name Priority Date/Time Associated Comments Diagnosis SEDIMENTATION RATE, B Routine 07/16/2020 12:42 Arthritis Re sults for this PM CDT Inflammatory (HCC) procedure are in the results section. CBC WITH DIFFERENTIAL, B Routine 07/16/2020 12:42 Arthritis Results for this PM CDT Inflammatory (HCC) procedure are in the results section. C-REACTIVE PROTEIN Routine 07/16/2020 12:42 Arthritis Resul ts for this (CRP), S/P PM CDT Inflammatory (HCC) procedure are in the results section. ASPARTATE Routine 07/16/2020 12:42 Arthritis Results for this AMINOTRANSFERASE (AST), PM CDT Inflammatory (HCC ) procedure are in S/P the results section. CREATININE WITH EGFR, Routine 07/16/2020 12:42 Arthritis Re sults for this S/P PM CDT Inflammatory (HCC) procedure are in the results section. documented in this encounter Results AST (Aspartate Aminotransferase) (07/16/2020 12:42 PM CDT) Patholo gist Method Time Signature Aspartate 25 8 - 43 07/16/2020 [facility] Aminotransferase U/L 1:33 PM CDT (AST), P Specimen Anatomical Collection Method Collection Time Receive d Time (Source) Location / / Volume Laterality Blood (Blood, 07/16/2020 12:42 07/16/2020 1:08 Venous) PM CDT PM CDT Velma Munson APRN, Karlene.N.P. LAB BLOOD ADD-ON Performing Organization Address City/[facility]/ZIP Code Phon e Number [facility]- [address] [place], [place] [address] [place] [address] System in [place] [address] [place], [place] [address]d Creatinine with Estimated GFR (07/16/2020 12:42 PM CDT) P athologist Signature Creatinine 0.84 0.59 - 07/16/2020 [facility] 1.04 mg/dL 1:33 PM CDT eGFR-Black/Afric >90 >=60 07/16/2020 [facility] an [place]er mL/min/BSA 1:33 PM CDT Comment: ----ADDITIONAL INFORMATION---- Estimated GFR calculated using the 2009 CKD_EPI creatinine equation. eGFR Non-Black/ 82 >=60 mL/min/BSA 1:33 PM CDT RDWG Comment: ----ADDITIONAL INFORMATION---- Estimated GFR calculated using the 2009 CKD_EPI creatinine equation. Specimen Anatomical Collection Method Collection Time Receive d Time (Source) Location / / Volume Laterality Blood (Blood, 07/16/2020 12:42 07/16/2020 1:08 Venous) PM CDT PM CDT Velma Munson APRN, Karlene.N.P. LAB BLOOD ADD-ON Performing Organization Address City/State/ZIP Code Phon e Number [facility]- [address] [place], [place] [address] [facility] [place] [address] System in [place] [address] [place] CRP (C-Reactive Protein) (07/16/2020 12:42 PM CDT) P athologist Signature C-Reactive 5.0 <=8.0 mg/L 07/16/2020 [facility] Protein (CRP), 1:33 PM CDT P Specimen Anatomical Collection Method Collection Time Receive d Time (Source) Location / / Volume Laterality Blood (Blood, 07/16/2020 12:42 07/16/2020 1:08 Venous) PM CDT PM CDT Velma Munson APRN, C.N.P. LAB BLOOD ADD-ON Performing Organization Address City/State/ZIP Code Phon e Number [facility]- [address] [place], [place] [address] [facility] [place] [address] System in [place] [place] Sedimentation Rate (07/16/2020 12:42 PM CDT) Analysis Performed At [facility] logis Time Signature Sedimentation 13 0 - 29 07/16/2020 [facility] Rate, B mm/1 h 3:10 PM CDT Specimen Anatomical Collection Method Collection Time Receive d Time (Source) Location / / Volume Laterality Blood (Blood, 07/16/2020 12:42 07/16/2020 1:07 Venous) PM CDT PM CDT Velma Munson APRN, C.N.P. LAB BLOOD ADD-ON Performing Organization Address City/State/ZIP Code Phon e Number [facility]- [address] [place], [place] [address] [facility] [place] [address] System in [place] [address] [place] CBC with Differential, Blood (07/16/2020 12:42 PM CDT) P athologist Signature Hemoglobin 14.1 11.6 - 07/16/2020 [facility] 15.0 g/dL 1:11 PM CDT Hematocrit 43.4 35.5 - 07/16/2020 [facility] 44.9 % 1:11 PM CDT Erythrocytes 5.01 3.92 - 07/16/2020 [facility] 5.13 1:11 PM CDT x10(12)/L MCV 86.6 78.2 - 07/16/2020 [facility] 97.9 fL 1:11 PM CDT RBC Distrib Width 13.8 12.2 - 07/16/2020 [facility] 16.1 % 1:11 PM CDT Platelet Count 284 157 - 371 07/16/2020 [facility] x10(9)/L 1:11 PM CDT Leukocytes 8.4 3.4 - 9.6 07/16/2020 [facility] x10(9)/L 1:11 PM CDT Neutrophils 6.00 1.56 - 07/16/2020 [facility] 6.45 1:11 PM CDT x10(9)/L Lymphocytes 1.65 0.95 - 07/16/2020 [facility] 3.07 1:11 PM CDT x10(9)/L Monocytes 0.53 0.26 - 07/16/2020 [facility] 0.81 1:11 PM CDT x10(9)/L Eosinophils 0.16 0.03 - 07/16/2020 [facility] 0.48 1:11 PM CDT x10(9)/L Basophils 0.04 0.01 - 07/16/2020 [facility] 0.08 1:11 PM CDT x10(9)/L Specimen Anatomical Collection Method Collection Time Receive d Time (Source) Location / / Volume Laterality Blood (Blood, 07/16/2020 12:42 07/16/2020 1:07 Venous) PM CDT PM CDT Velma Munson APRN CLennoxN.PLennox LAB BLOOD ADD-ON Performing Organization Address City/State/ZIP Code Phon e Number [facility]- [address] [place], [place] [address] [place] [address] System in [place] [address] documented in this encounter Visit Diagnoses Diagnosis Arthritis Inflammatory (HCC) documented in this encounter Additional Health Concerns Assessment Noted Time PHQ-9 Depression Total Score: 15 04/21/2018 1:00 PM CS T documented as of this encounter Care Teams Project Management Specialist Relationship Specialty Start Date End Date Elsewhere, Pcp PCP - General Internal Medicine 10/22/19 documented as of this encounter
--- OUTSIDE RECORDS SUMMARY | 2022-01-08 10:41 | XMS_ITS | Encounter Summary ---
:1970 Author Organization [facility] Address [address] [place] [address] Care Team Providers Name Role Phone Elsewhere, Pcp Primary Care Provider Unavailable Reason for Visit Reason Comments Lab Monitoring Encounter Details Date Type Department Care Team Description 04/24/2020 Clinical Communication Division of Velma Munson Monitoring Rheumatology in L, CONCRETE PLANT LABORER, C.N.P. [place], [place] [address] [facility] [address] [place] [phone] Social History Tobacco Use Types Packs/Day Years [...] many times do you More than three mryanda es a week 11/16/2021 talk on the phone with family, friends, or neighbors? How often do you get together with friends Never 11/16/2021 or relatives? How often do you attend mormon or More than 4 times per year 11/16/2021 evangelical services? Do you belong to any clubs [...] this encounter Miscellaneous Notes Telephone Encounter - Irene Andujar R.N. - 04/28/2020 11:45 AM CST ASSESSMENT Rheumatology monitoring labs completed at an external lab on 04/10/20 were reviewed per Rheumatologydivision parameters. All monitored labs are within parameters. Labs reviewed: absolute neutrophil count, creatinine, hemoglobin, leukocytes, platelets External labs were entered into Labs Tab and sent for scanning. PLAN Patient to continue with current plan of care. 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 [address] [place] [address] [phone] (Earl dowd) 01/08/2022 Ancillary Procedure Cardiovascular Disease Julián Edouard M.D. [address] [place] [address] [phone] (Earl dowd) 01/08/2022 Comprehensive Visit Thoracic Surgery Tess Raphael M.D. [address] [place] [address] [phone] (Earl dowd) documented as of this encounter Procedures Procedure Name Priority Date/Time Associated Diagnosis Comme nts CBC WITH DIFFERENTIAL, Routine 04/10/2020 Resul ts for this B procedure are i n the results section . CREATININE WITH EGFR, Routine 04/10/2020 Result s for this S/P procedure are i n the results section . documented in this encounter Results Creatinine with Estimated GFR (04/10/2020) P athologist Signature EXT Creatinine 0.6 0.6 - 1.3 mg/dL Specimen (Source) Anatomical Location Collection Method / Collectio n Time Received Time / Laterality Volume Blood (Blood, Venous) Resulting Agency Comment [facility]. Velma Munson APRN, C.N.P. LAB BLOOD ADD-ON CBC with Differential, Blood (04/10/2020) athologist Signature EXT Platelet 268 140 - 440 Count EXT Neutrophils 6.1 1.7 - 7 EXT Hemoglobin 14.3 12 - 16 EXT White Blood 8.4 4.5 - 11.0 Cell (WBC) Count Specimen (Source) Anatomical Location Collection Method / Collectio n Time Received Time / Laterality Volume Blood (Blood, Venous) Resulting Agency Comment [facility]. Velma Munson APRN, C.N.P. LAB BLOOD ADD-ON documented in this encounter Visit Diagnoses Not on filedocumented in this encounter Additional Health Concerns Assessment Noted Time PHQ-9 Depression Total Score: 15 04/21/2018 1:00 PM CS T documented as of this encounter Care Teams Vending Technician Relationship Specialty Start Date End Date Elsewhere, Pcp PCP - General Internal Medicine 10/22/19 documented as of this encounter
--- OUTSIDE RECORDS SUMMARY | 2022-01-08 10:41 | XMS_ITS | Encounter Summary ---
:1970 Author Organization [facility] Address [address] [place] [address] Care Team Providers Name Role Phone Elsewhere, Pcp Primary Care Provider Unavailable Encounter Details Date Type Department Care Team Description 05/15/2020 Immunization Department of [facility] Alfie Kearns For COVID-19 Medicine, Alfredo Jain M.D. Vaccine Immunization [facility], in [address] [place] [phone] [place] [address] [place], [place] (Work) [phone] Social History Tobacco Use [...] Appointment Radiology Julián Edouard M.D. [address] [place] [address] (Wo rk) 01/08/2022 Ancillary Procedure Cardiovascular Disease Julián Edouard M.D. [address] [place] [phone] (Wo rk) 01/08/2022 Comprehensive Visit Thoracic Surgery Tess Raphael M.D. [address] [place] [phone] (Wo rk) documented as of this encounter Visit Diagnoses Diagnosis Encounter For COVID-19 Vaccine Immunizat ion documented in this encounter Additional Health Concerns Assessment Noted Time PHQ-9 Depression Total Score: 15 04/21/2018 1:00 PM CS T documented as of this encounter Care Teams Lease Administration Analyst Relationship Specialty Start Date End Date Elsewhere, Pcp PCP - General Internal Medicine 10/22/19 documented as of this encounter
--- OUTSIDE RECORDS SUMMARY | 2022-01-08 10:41 | XMS_ITS | Encounter Summary ---
:[address] [facility] Address [address] [place] [address] Care Team Providers Name Role Phone Elsewhere, Pcp Primary Care Provider Unavailable Reason for Visit Reason Comments COVID Nurse Line Encounter Details Date Type Department Care Team Description 02/19/2020 Clinical Communication Division of Suyapa Dawn Nurse Line [facility] Internal R, R.N. [facility] [address] [place] [address] [facility] [address] [place] [phone] [address] [facility] (Work) [place] [phone] Social History Tobacco Use Types Packs/Day Years [...] More than 4 times per year 11/16/2021 sikh services? Do you belong to any clubs [...] this encounter Miscellaneous Notes Telephone Encounter - Suyapa Dawn R.N. - 02/19/2020 8:18 AM CDT COVID-19 Nurse Line Screening ASSESSMENT COVID 19 Screening Have you had close contact with a person who has a LABORATORY CONFIRMED case of COVID-19 in the past14 days?: No - Continue screening. In the last 48 hours have you had any of the following symptoms?: No - Complete screening. Testing is not recommended at this time. May consider asymptomatic testing if advised for public health, work,school and travel related purposes PLAN Endpoint recommendation: Screening negative, testing indicated per request for travel related reasons, sent to [facility] located at [address] Testing hours are M-F 8:30 am to 4:30 pm. Sat-Sun 9 am to 12:30 pm. When you arrive stay in your car and someone will direct you. , If it is currently after hours, please report to the testing site when it is next open. and Please avoid using public transportation per CDC recommendation. If you do not have personal transportation please self-quarantine until a personal transportation option is available. Care Points provided: STANDARD PRECAUTIONS FOR ALL PATIENTS: Wash hands often with soap and water for at least 20 seconds, especially after blowing your nose, coughing, sneezing, or having been in a public place. If soap and water aren't available, use a hand clinical pathologist that contains at least 60% alcohol. Avoid close contact with anyone who may be exhibiting respiratory symptoms such as coughing and sneezing. Avoid touching your eyes, nose and mouth. Clean and disinfect frequently touched surfaces daily. Cover your mouth and nose with a cloth face cover when around others or in public. The cloth face cover is not a substitute for social distancing. Continue to keep about 6 feet between yourself andothers. Monitor for symptoms. Do not take your temperature within 30 minutes of exercise. If your test or screen is negative and new symptoms develop please contact your provider if it has been greaterthan 72 hours since you were tested. Educational Resource: https://www.cdc.gov/coronavirus/2019-ncov/ mvskpeh-wovmnfv-vmkk/index.html RECOMMENDATIONS TESTING CRITERIA IS MET: Stay home except to get medical care. Quarantine for 14 days if exposed to someone with a laboratory confirmed case of COVID-19 exposure regardless of your test results. Avoid public areas and public transportation. Separate yourself from other people and stay in a specific sick room if possible. Wear a cloth face covering, over your nose and mouth if youmust be around other people even at home). Cover your nose and mouth when coughing or sneezing. Contact employer/occupational health department to notify them that they are being tested. Seek emergent care if any of the following occur: 1) Trouble breathing, 2) Bluish lips or face, 3) Persistent pain or pressure in the chest, 4) Newly confused or unable to stay alert and awake. Notify appropriate care provider if any new or worsening symptoms. You may need re-testing if it has been greater than 72 hours after a negative COVID- 19 test result. Education Resources: https://www.cdc.gov/coronavirus/2019- ncov/kz-hud-cdu-sick/yupuq-eyrd-einh.html SELF CARE FOR ALL PATIENTS: Take breaks from watching, reading, or listening to news stories. Make time to unwind. Try to do some other activities you enjoy. Connect with others. Be creative in keepingconnected with loved ones, especially those at high risk. Try healthy coping strategies such as meditation, relaxation, exercise, healthy eating habits, and avoid alcohol and drugs. Education: Patient/caregiver able to teach back Patient agreeable to plan of care: Yes The following references were used: [facility] novel coronavirus (COVID- 19) resources CDC web site https://www.cdc.gov/coronavirus/2019-ncov/summary.html Nursing judgement documented in this encounter Plan of Treatment Upcoming Encounters Date Type Specialty Care Team Description 01/08/2022 Appointment Radiology Julián Edouard M.D. [address] [place] [address] (Wo rk) 01/08/2022 Ancillary Procedure Cardiovascular Disease Julián Edouard M.D. [address] [place] [phone] (Wo rk) 01/08/2022 Comprehensive Visit Thoracic Surgery Tess Raphael M.D. [address] [place] [phone] (Wo rk) documented as of this encounter Visit Diagnoses Not on filedocumented in this encounter Additional Health Concerns Assessment Noted Time PHQ-9 Depression Total Score: 15 04/21/2018 1:00 PM CS T documented as of this encounter Care Teams Office Manager Executive Assistant Relationship Specialty Start Date End Date Elsewhere, Pcp PCP - General Internal Medicine 10/22/19 documented as of this encounter
--- OUTSIDE RECORDS SUMMARY | 2022-01-08 10:41 | XMS_ITS | Encounter Summary ---
:1970 Author Organization [facility] Address [address] [place] [address] Care Team Providers Name Role Phone Elsewhere, Pcp Primary Care Provider Unavailable Encounter Details Date Type Department Care Team Description 05/27/2020 Clinical Communication Division of Tamir Butcher Gastroenterology césar Narayan M.D. [place], [place] [address] [facility] [address] [place] [address] [phone] Social History Tobacco Use Types Packs/Day Years [...] or relatives? How often do you attend jain or More than 4 times per year 11/16/2021 tenriism services? Do you belong to any clubs or No 11/16/2021 organizations such as jain groups, unions, fraternal or athletic groups, or [...] Appointment Radiology Julián Edouard M.D. [address] [place] [address] (Wo rk) 01/08/2022 Ancillary Procedure Cardiovascular Disease Julián Edouard M.D. [address] [place] [phone] (Wo rk) 01/08/2022 Comprehensive Visit Thoracic Surgery Tess Raphael M.D. [address] [place] [phone] (Wo rk) documented as of this encounter Visit Diagnoses Not on filedocumented in this encounter Additional Health Concerns Assessment Noted Time PHQ-9 Depression Total Score: 15 04/21/2018 1:00 PM CS T documented as of this encounter Care Teams J2Ee Consultant Relationship Specialty Start Date End Date Elsewhere, Pcp PCP - General Internal Medicine 10/22/19 documented as of this encounter
--- OUTSIDE RECORDS SUMMARY | 2022-01-08 10:41 | XMS_ITS | Encounter Summary ---
:1970 Author Organization [facility] Address [address] [place] [address] Care Team Providers Name Role Phone Elsewhere, Pcp Primary Care Provider Unavailable Reason for Visit Reason Comments COVID Inquiry Encounter Details Date Type Department Care Team Description 05/12/2020 Clinical Communication Division of Velma Munson Inquiry Rheumatology in L, MAGNAFLUX OPERATOR, C.N.P. [place], [place] [address] [facility] [address] [place] [phone] Social History Tobacco Use Types Packs/Day Years [...] More than 4 times per year 11/16/2021 yazdanism services? Do you belong to any clubs [...] Appointment Radiology Julián Edouard M.D. [address] [place] [address] (Wo rk) 01/08/2022 Ancillary Procedure Cardiovascular Disease Julián Edouard M.D. [address] [place] [phone] (Wo rk) 01/08/2022 Comprehensive Visit Thoracic Surgery Tess Raphael M.D. [address] [place] [phone] (Wo rk) documented as of this encounter Visit Diagnoses Not on filedocumented in this encounter Additional Health Concerns Assessment Noted Time PHQ-9 Depression Total Score: 15 04/21/2018 1:00 PM CS T documented as of this encounter Care Teams Timber Packer Relationship Specialty Start Date End Date Elsewhere, Pcp PCP - General Internal Medicine 10/22/19 documented as of this encounter
--- OUTSIDE RECORDS SUMMARY | 2022-01-08 10:41 | XMS_ITS | Encounter Summary ---
:1970 Author Organization [facility] Address [address] [place] [address] Care Team Providers Name Role Phone Elsewhere, Pcp Primary Care Provider Unavailable Reason for Referral Specialty Diagnoses / Procedures Referred By Contact Refer red To Contact Velma Munson A PRN, C.N.P. [facility] [address] [place] [phone] Referral ID Status Reason Start Date Expiration Date Visits Requ ested Visits Authorized Reason for Visit Outpatient (Routine) - Closed Specialty Diagnoses / Procedures Referred By Contact Refer joslyn To Contact Rheumatology Velma Munson APRN, [place] [facility] C.N.P. [address] [place] [phone] Referral ID Status Reason Start Date Expiration Date Visits Requ ested Visits Authorized [id number] Closed 05/28/2020 05/28/2021 1 1 Encounter Details Date Type Department Care Team Description 07/17/2020 Office Visit Division of Velma Munson Arthritis In [facility] ([facility]) (Primary Dx); Rheumatology in [place] Schwartz, C.N.P. High Risk Medication [address] [place] [phone] Social History Tobacco Use Types Packs/Day Years [...] More than 4 times per year 11/16/2021 catholic services? Do you belong to any [...] Sign Reading Time Taken Comments Blood Pressure 142/89 07/17/2020 2:49 PM CDT Pulse 102 07/17/2020 2:49 PM CDT Temperature 36.4 ??C (97.5 ??F) 07/17/2020 2:49 PM CDT Respiratory Rate - - Oxygen Saturation - - Inhaled Oxygen Concentration - - Weight 79.8 kg (175 lb 14.8 oz) 07/17/2020 2:49 PM CDT Height 160.7 cm (5' 3.27) 07/17/2020 2:49 PM CDT Body Mass Index 30.9 07/17/2020 2:49 PM CDT documented in this encounter Progress Notes Velma Munson APRN, JorgeNZaira. - 07/17/2020 2:45 PM CDT Images from the original note were not included. SUBJECTIVE CHIEF COMPLAINT / REASON FOR VISIT Waleska Diaz is a 49 y.o. female who presents for follow up of inflammatory arthritis. HISTORY OF PRESENT ILLNESS Ms. 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 She reports otherwise being in good health until her early 20s when she was diagnosed with mixed connective tissue disease. She presented initially with low-grade fevers, diarrhea, rectal bleeding, and a rash which she reports was photosensitive with widespread joint pain and sensitivity to touch. She reports initially being told that her symptoms were consistent with lupus, but on a reevaluation later by a automatic lathe operator the diagnosis of mixed connective tissue disease on the basis of laboratory investigations. She was started on treatment with methotrexate, prednisone, and Plaquenil and remained on that initially for about five years and then went off it because she was doing relatively well. Abouttwo years ago, she resumed on it because she had recurrence of complaints of joint pain. She continued on methotrexate though at a lower dose than she previously had been on. She had previously been on Plaquenil 400 mg per day and this was subsequently reduced to 200 mg per day. About two months ago, on her own, she decided to discontinue it. Today, I am seeing Ms. 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 She had her lap band removed in summer and since then she has gained 50 lbs. She continues to have explosive diarrhea,flatulence, GERD, and very dry mouth. She is taking 15 tablets of TUMs per day to help with the burning throat. Her primary care provider gave her sucralfate to see if this would help and it didn't help. She states her left 5th finger pain has improve but it hard to to make a tight fist. Right now herright knee and hip and right 3rd finger are the most painful. She states the pilocarpine is helping her mouth is not as dry. She states also her mood is all over the place. She states the fatigue is better after starting Provigil. She continues have Raynaud's in her hands and feet with no ulcerations.She continues take Plaquenil 200 mg on odd days and 400 mg on even days. She denies any recent infections or hospitalizations. She denies any adverse side effects to Plaquenil. Rheumatoid Arthritis RF +: No CCP +: No Current Symptoms: diarrhea (IBS), dry eyes, dry mouth, fatigue (a little better), Raynaud's syndrome(no digital ulcers), nausea (IBS ), vomiting (today with diarrhea), abdominal pain (umbicial pain), heartburn (maybe just started a antiacid) and dyspnea (with activity) Current Symptoms: no fever, no rash (itching on the arms and face), no weight loss, no excessive bruising, no cough, no chest pain, no edema, no anorexia, no chills, no night sweats, no oral ulcers andno eye inflammation Previous Reports Reviewed:lab reports and office notes The following portions of the patient's history were reviewed and updated as appropriate: family history, medical history, social history, surgical history and problem list. REVIEW OF SYSTEMS Pertinent positives and negatives as documented in the above history of present illness. Constitutional: Positive for fatigue (a little better) and loss of appetite. Negative for chills, [...] heartburn (maybe just started a antiacid), nausea (IBS ) and vomiting (today with diarrhea). Negative for anorexia. Musculoskeletal: Positive for arthralgias [...] bilaterally. Right trochanteric bursa tender to palpation. Right 3rd flexor tendon isvery tight and painful. Lab: CBC with differential, creatinine, GFR, and AST all within normal limits. CRP is 5.0. ESR is normal. 05/27/2020 07/17/2020 Tender joint count (0-28) 0 1 Swollen joint count (0-28) 0 0 Patient global assessment (0-100) 12 12 Fitter Placer global assessment (0-100) 10 20 ESR (mm/h) 10 13 CRP (mg/L) 3.3 5 Disease Activity Score 28 using ESR ([id number]) 1.78 2.52 Disease Activity Score 28 using CRP ([id number]) 1.65 2.33 Clinical Disease Activity Index (CDAI) 2.2 4.2 Simplified Disease Activity Index (SDAI) 2.53 4.7 ASSESSMENT / PLAN #1 Arthritis Inflammatory (HCC) I believe her disease continues to worsen. I am happy that her fatigue is doing little better with Provigil. I do question if she is actually absorbing the Plaquenil due to the GI symptoms that are occurring right now with explosive diarrhea. We had discussion about treatment options and elected to start her on subQ methotrexate. She will start methotrexate 10 mg subcu once weekly. I have also prescribed folic acid 1 mg daily and subcu syringes. She will be enrolled in the methotrexate titration protocol and will be meeting with the nurses once monthly for this. We discussed risks, benefits, adverse side effects to medication. I hope that this medication will help control inflammatory joint symptoms. I have also ordered nursing education on how to give a subcu injection. At this time she will continue Plaquenil to 400 mg on even days and 200 mg on odd days. Patient was in agreement with this plan. #2 High Risk Medication Last Plaquenil eye exam was March 19, 2020. No eye toxicity noted. She will be due again in March 2021. I will follow up with her in [...] Appointment Radiology Julián Edouard M.D. [address] [place] [phone] ([facility]) 01/08/2022 Ancillary Procedure Cardiovascular Disease Julián Edouard M.D. [address] [place] [phone] ([facility]) 01/08/2022 Comprehensive Visit Thoracic Surgery Tess Raphael M.D. [address] [place] [phone] ([facility]) Scheduled Referrals Name Type Priority Associated Diagnoses Order S chedule Rheumatology - Outpatient Referral Routine Arthritis Expect ed: Education visit Inflammatory (HCC) 2020 (clinic) (Approximate), Expires: 07/18/2023 documented as of this encounter Results Creatinine with Estimated GFR (08/18/2020 3:39 PM CDT) P athologist Signature Creatinine 0.76 0.59 - 08/18/2020 [facility] 1.04 mg/dL 4:00 PM CDT eGFR-Black/Afric >90 >=60 08/18/2020 [facility] an Citizen Of [place] mL/min/BSA 4:00 PM CDT Comment: ----ADDITIONAL INFORMATION---- Estimated GFR calculated using the 2009 CKD_EPI creatinine equation. eGFR Non-Black/ >90 >=60 mL/min/BSA 08/18/2020 4:00 PM CDT [facility] Comment: ----ADDITIONAL INFORMATION---- Estimated GFR calculated using the 2009 CKD_EPI creatinine equation. Specimen Anatomical Collection Method Collection Time Receive d Time (Source) Location / / Volume Laterality Blood (Blood, 08/18/2020 3:39 PM 08/19/19 3:40 Venous) CDT PM CDT Velma Munson APRN, C.N.P. LAB BLOOD ADD-ON Performing Organization Address City/State/ZIP Code Phon e Number [facility]- [address] [place] [address] [place], [place] [address] [facility] [place] [address] System in [address] AST (Aspartate Aminotransferase) (08/18/2020 3:39 PM CDT) Patholo gist Method Time Signature Aspartate 19 8 - 43 08/18/2020 [facility] Aminotransferase U/L 4:00 PM CDT (AST), P Specimen Anatomical Collection Method Collection Time Receive d Time (Source) Location / / Volume Laterality Blood (Blood, 08/18/2020 3:39 PM 08/19/19 3:40 Venous) CDT PM CDT Velma Munson APRN, C.N.P. LAB BLOOD ADD-ON Performing Organization Address City/State/ZIP Code Phon e Number [facility]- [address] [place], [place] [address] [place] [address] [place] in [place] (ABNORMAL) CBC with Differential, Blood (08/18/2020 3:38 PM CDT) [facility] Method Time Signature Hemoglobin 14.7 11.6 - 08/18/2020 [facility] 15.0 g/dL 3:46 PM CDT Hematocrit 45.3 (H) 35.5 - 08/18/2020 [facility] 44.9 % 3:46 PM CDT Erythrocytes 5.23 (H) 3.92 - 08/18/2020 [facility] 5.13 3:46 PM CDT x10(12)/L MCV 86.6 78.2 - 08/18/2020 [facility] 97.9 fL 3:46 PM CDT RBC Distrib Width 14.4 12.2 - 08/18/2020 [facility] 16.1 % 3:46 PM CDT Platelet Count 306 157 - 371 08/18/2020 [facility] x10(9)/L 3:46 PM CDT Leukocytes 10.2 (H) 3.4 - 9.6 08/18/2020 [facility] x10(9)/L 3:46 PM CDT Neutrophils 7.56 (H) 1.56 - 08/18/2020 [facility] 6.45 3:46 PM CDT x10(9)/L Lymphocytes 2.10 0.95 - 08/18/2020 [facility] 3.07 3:46 PM CDT x10(9)/L Monocytes 0.45 0.26 - 08/18/2020 [facility] 0.81 3:46 PM CDT x10(9)/L Eosinophils 0.04 0.03 - 08/18/2020 [facility] 0.48 3:46 PM CDT x10(9)/L Basophils 0.04 0.01 - 08/18/2020 [facility] 0.08 3:46 PM CDT x10(9)/L Specimen Anatomical Collection Method Collection Time Receive d Time (Source) Location / / Volume Laterality Blood (Blood, 08/18/2020 3:38 PM 08/19/19 21 3:40 Venous) CDT PM CDT Velma Munson APRN, C.N.P. LAB BLOOD ADD-ON Performing Organization Address City/State/ZIP Code Phon e Number [facility]- [address] [place], [place] [address] [place] [address] System in [place] [address] documented in this encounter Visit Diagnoses Diagnosis Arthritis Inflammatory (HCC) - Primary High Risk Medication documented in this encounter Additional Health Concerns Assessment Noted Time PHQ-9 Depression Total Score: 15 04/21/2018 1:00 PM CS T documented as of this encounter Care Teams Area Development Consultant Relationship Specialty Start Date End Date Elsewhere, Pcp PCP - General Internal Medicine 10/22/19 documented as of this encounter
--- OUTSIDE RECORDS SUMMARY | 2022-01-08 10:41 | XMS_ITS | Encounter Summary ---
:1970 Author Organization [facility] Address [address] [place] [address] Care Team Providers Name Role Phone Elsewhere, Pcp Primary Care Provider Unavailable Reason for Visit Reason Comments Swelling, pain, knees, feet, hands, P1 Encounter Details Date Type Department Care Team Description 07/28/2020 Clinical Division of Velma Munson pa in, Communication Rheumatology in L, CONTRACT NEGOTIATION SPECIALIST, C.N.P. knees, feet, [place], [place] [address] [facility] hands, P1 [address] [place] [phone] Social History Tobacco Use Types Packs/Day Years [...] or relatives? How often do you attend baptist or More than 4 times per year 11/16/2021 jainism services? Do you belong to any clubs or No 11/16/2021 organizations such as baptist groups, unions, fraternal or athletic groups, or [...] to pay for the very basics like Eat Your Kimchi hat hard 11/16/2021 food, housing, medical care, [...] Encounter - Velma Munson APRN, C.N.P. - 07/31/2020 9:52 PM CDT It sounds like she is flaring. If it worsens I can prescribe a prednisone burst and taper for her when she wants it. Telephone Encounter - Kaylie Vu M.A.N., R.N. - 07/29/2020 3:54 PM CDT SUBJECTIVE CHIEF COMPLAINT / REASON FOR CALL Swelling, pain, knees, feet, hands, P1 Information Discussed I called Waleska as she requested. She has taken Methotrexate for 2 weeks. She is using Tylenol but it isn't helping. Reviewed the amount of time for Methotrexate to reach it's full effect. Also, reviewed other options such as prednisone taper as a bridge until Methotrexate becomes more effective but Mayra is refusing prednisone due to weight gain. Suggested heat/ice rest. She will continue to treat the symptoms and call u should she want to try prednisone taper. PLAN Disposition/Recommendation: self-care is appropriate at this time, patient encouraged to call back with questions Information/Education: patient/caller able to teach back Caller agreeable to plan of care: yes The following references were used: nursing clinical judgement Telephone Encounter - Mindy Blas Dakotah - 07/28/2020 9:38 AM CDT Caller/authorization: Patient Provider/nurse: Velma Munson Reason for call: Patient called. She is still having a lot of joint pain and swelling in her knees, feet, hands and also in back hip area. She started the methotrexate but this does not seem to be helping yet and wants to know what else can do. She would like a call back AFTER 3:30 today as is in surgery until then. Her phone number is [phone]. documented in this encounter Plan of Treatment Upcoming Encounters Date Type Specialty Care Team Description 01/08/2022 Appointment Radiology Julián Edouard M.D. [address] [place] [address] (Wo rk) 01/08/2022 Ancillary Procedure Cardiovascular Disease Julián Edouard M.D. [address] [place] [address] (Wo rk) 01/08/2022 Comprehensive Visit Thoracic Surgery Tess Raphael M.D. [address] [place] [phone] (Wo rk) documented as of this encounter Visit Diagnoses Not on filedocumented in this encounter Additional Health Concerns Assessment Noted Time PHQ-9 Depression Total Score: 15 04/21/2018 1:00 PM CS T documented as of this encounter Care Teams Mechanism Assembler Relationship Specialty Start Date End Date Elsewhere, Pcp PCP - General Internal Medicine 10/22/19 documented as of this encounter
--- OUTSIDE RECORDS SUMMARY | 2022-01-08 10:41 | XMS_ITS | Encounter Summary ---
:1970 Author Organization [facility] Address [address] [place] [address] Care Team Providers Name Role Phone Elsewhere, Pcp Primary Care Provider Unavailable Reason for Referral Specialty Diagnoses / Procedures Referred By Contact Refer red To Contact Evangelista Darling M.D. [facility] [address] [place] [phone] Referral ID Status Reason Start Date Expiration Date Visits Requ ested Visits Authorized TRUCKER Encounter Details Date Type Department Care Team Description 04/17/2020 Orders Only [facility] SEMN PCP [facility] Evangelista Darling Jr., M.D. [facility] [place] [phone] (Wo rk) Social History Tobacco Use Types [...] 01/08/2022 Appointment Radiology Julián Edouard M.D. [address] [place] [phone] (Earl dowd) 01/08/2022 Ancillary Procedure Cardiovascular Disease Julián Edouard M.D. [address] [place] [phone] (Earl dowd) 01/08/2022 Comprehensive Visit Thoracic Surgery Tess Raphael M.D. [address] [place] [phone] (Earl dowd) Scheduled Referrals Name Type Priority Associated Order Schedule Diagnoses Covid immunization Outpatient Referral Routine Ex pected: office visit Initial 020 (Approximate), Expires: 04/17/2021 documented as of this encounter Visit Diagnoses Not on filedocumented in this encounter Additional Health Concerns Assessment Noted Time PHQ-9 Depression Total Score: 15 04/21/2018 1:00 PM CS T documented as of this encounter Care Teams Shovel Mechanic Relationship Specialty Start Date End Date Elsewhere, Pcp PCP - General Internal Medicine 10/22/19 documented as of this encounter
--- OUTSIDE RECORDS SUMMARY | 2022-01-08 10:41 | XMS_ITS | Encounter Summary ---
:1970 Author Organization [facility] Address [address] [place] [address] Care Team Providers Name Role Phone Elsewhere, Pcp Primary Care Provider Unavailable Reason for Referral Specialty Diagnoses / Procedures Referred By Contact Refer red To Contact [address] [phone] Referral ID Status Reason Start Date Expiration Date Visits Requ ested Visits Authorized NE MECHANIC Encounter Details Date Type Department Care Team Description 04/24/2020 Immunization Department of [facility] Evangelista Darling For COVID-19 Medicine, Alfredo Soler M.D. Vaccine Immunization [facility], in [address] (Primary Dx) [address] [phone] [place], [place] (Work) [phone] [phone] Social History Tobacco Use Types Packs/Day Years [...] or relatives? How often do you attend [employer] or More than 4 times per year 11/16/2021 hoahaoism services? Do you belong to any clubs or No 11/16/2021 organizations such as presybeterian groups, unions, fraternal or athletic groups, or [...] 01/08/2022 Appointment Radiology Julián Edouard M.D. 200 [place] [phone] (Earl dowd) 01/08/2022 Ancillary Procedure Cardiovascular Disease Julián Edouard M.D. 200 [place] [phone] (Earl dowd) 01/08/2022 Comprehensive Visit Thoracic Surgery Tess Raphael M.D. [address] [place] [phone] (Earl dowd) Scheduled Referrals Name Type Priority Associated Diagnoses Order S chedule Covid immunization Outpatient Referral Routine Encounter For E xpected: office visit Covid-19 Vaccine 05/15/2020, Subsequent; 21 days Immunization Expires: 04/24/2023 documented as of this encounter Visit Diagnoses Diagnosis Encounter For COVID-19 Vaccine Immunizat ion - Primary documented in this encounter Additional Health Concerns Assessment Noted Time PHQ-9 Depression Total Score: 15 04/21/2018 1:00 PM CS T documented as of this encounter Care Teams Risk Manager Relationship Specialty Start Date End Date Elsewhere, Pcp PCP - General Internal Medicine 10/22/19 documented as of this encounter
--- OUTSIDE RECORDS SUMMARY | 2022-01-08 10:41 | XMS_ITS | Encounter Summary ---
:1970 Author Organization [facility] Address [address] [place] [address] Care Team Providers Name Role Phone Elsewhere, Pcp Primary Care Provider Unavailable Encounter Details Date Type Department Care Team Description 08/18/2020 Hospital Encounter Department of Velma Munson High Risk Medication Laboratory Medicine LONG Schwartz C.N .P. in [employer], [address] [place] [address] [place] [phone] [place], [place] [phone] (Work) [phone] Social History Tobacco Use Types Packs/Day Years [...] 01/08/2022 Appointment Radiology Julián Edouard M.D. 200 [place] [phone] (Earl dowd) 01/08/2022 Ancillary Procedure Cardiovascular Disease Julián Edouard M.D. 200 [place] [phone] (Earl dowd) 01/08/2022 Comprehensive Visit Thoracic Surgery Tess Raphael M.D. 200 [place] [phone] (Earl dowd) documented as of this encounter Procedures Procedure Name Priority Date/Time Associated Comments Diagnosis ASPARTATE Routine 08/18/2020 3:39 High Risk Results for this AMINOTRANSFERASE (AST), PM CDT Medication proc edure are in S/P the results section. CREATININE WITH EGFR, Routine 08/18/2020 3:39 High Risk Res ults for this S/P PM CDT Medication procedure are i n the results section. CBC WITH DIFFERENTIAL, B Routine 08/18/2020 3:38 High Risk Results for this PM CDT Medication procedure are i n the results section. documented in this encounter Results Creatinine with Estimated GFR (08/18/2020 3:39 PM CDT) P athologist Signature Creatinine 0.76 0.59 - 08/18/2020 [facility] 1.04 mg/dL 4:00 PM CDT eGFR-Black/Afric >90 >=60 08/18/2020 [facility] an Tongan mL/min/BSA 4:00 PM CDT Comment: ----ADDITIONAL INFORMATION---- [...] Organization Address City/State/ZIP Code Phon e Number [facility]- [address] [place], [place] [address] [address] [place] [address] System in [employer] [facility] AST (Aspartate Aminotransferase) (08/18/2020 3:39 PM CDT) Patholo gist Method Time Signature Aspartate 19 8 - 43 08/18/2020 [facility] Aminotransferase U/L 4:00 PM CDT (AST), Specimen Anatomical Collection Method Collection Time Receive d Time (Source) Location / / Volume Laterality Blood (Blood, 08/18/2020 3:39 PM 04/19/20 21 3:40 Venous) CDT PM CDT Velma Schwartz Jeimy ALVES C.N.P. LAB BLOOD ADD-ON Performing Organization Address City/State/ZIP Code Phon e Number [facility]- [address] [employer] [place] [address] [facility] [place] [address] System in [employer] [address] (ABNORMAL) CBC with Differential, Blood (08/18/2020 3:38 PM CDT) [facility] Method Time Signature Hemoglobin 14.7 11.6 - [...] Laterality Blood (Blood, 08/18/2020 3:38 PM 08/19/19 3:40 Venous) CDT PM CDT Velma Munson APRN C.N.P. LAB BLOOD ADD-ON Performing Organization Address City/State/ZIP Code Phon e Number [facility]- [address] [place], [place] [address] [place] [address] System in [employer] [address] documented in this encounter Visit Diagnoses Diagnosis High Risk Medication documented in this encounter Additional Health Concerns Assessment Noted Time PHQ-9 Depression Total Score: 15 04/21/2018 1:00 PM CS T documented as of this encounter Care Teams Manager Staffing Relationship Specialty Start Date End Date Elsewhere, Pcp PCP - General Internal Medicine 10/22/19 documented as of this encounter
--- OUTSIDE RECORDS SUMMARY | 2022-01-08 10:41 | XMS_ITS | Encounter Summary ---
:1970 Author Organization [facility] Address [address] [place] [address] Care Team Providers Name Role Phone Elsewhere, Pcp Primary Care Provider Unavailable Reason for Visit Reason Comments Covid vaccine ? safe to get Encounter Details Date Type Department Care Team Description 04/18/2020 Clinical Division of Velma Munson vaccin e (? Communication Rheumatology in L, SALES REPRESENTATIVE JEWELRY, C.N.P. safe to get) [place], [place] [address] [facility] [address] [place] [phone] Social History Tobacco Use Types Packs/Day Years [...] or relatives? How often do you attend mormonism or More than 4 times per year 11/16/2021 nondenominational services? Do you belong to any clubs or No 11/16/2021 organizations such as mormonism groups, unions, fraternal or athletic groups, or [...] Note - Velma Munson APRN, C.N.P. - 04/30/2020 9:18 AM MANAGER HARDWARE Addended by: VELMA MUNSON on: 04/30/2020 09:18 AM Modules accepted: Orders GER HARDWARE Telephone Encounter - Velma Munson APRN, C.N.P. - 04/30/2020 9:15 AM MANAGER HARDWARE Yes I can see her for a visit. There is a follow up already ordered. GER HARDWARE Telephone Encounter - Bhavana [place] - 04/28/2020 12:32 PM CST Waleska called this afternoon. She is still experiencing the fatigue and bruises. She's wondering if an appt would be appropriate at this point. She does start PT tomorrow for her ankle. GER HARDWARE Telephone Encounter - Velma Munson APRN, C.N.P. - 04/27/2020 8:53 AM MANAGER HARDWARE CBC was stable. I am not concerned about the clumsiness due to the recent ankle sprain. GER HARDWARE Telephone Encounter - Irene Andujar R.N. - 04/23/2020 2:34 PM CST Information Discussed Spoke with patient and she noted that she attributed the clumsiness and falling to previous ankle sprain. She does not feel like her muscles are weak (no issues lifting things or going from sitting to standing). She wants to make sure that Velma has seen her external labs as well. Will share this information with provider. PLAN Disposition/Recommendation: notified provider and awaiting recommendations Information/Education: patient/caller able to teach back Caller agreeable to plan of care: yes The following references were used: nursing clinical judgement GER HARDWARE Telephone Encounter - Velma Munson APRN, C.N.P. - 04/21/2020 4:26 PM MANAGER HARDWARE Does she feel as though her muscles are weak? Is she having difficulty going from sitting to standing? We need to make sure she is not developing a myositis from the Plaquenil. GER HARDWARE Telephone Encounter - Cam Espinoza R.N. - 04/21/2020 2:06 PM MANAGER HARDWARE Information Discussed Message relayed to patient. She wanted Velma to know that she is still fatigued and bruising easily. She is also feeling clumsy and falling easily. She did have labs done recently that looked at iron levels and has discussed this with her pcp. She was asked to have those labs sent here (not in care everywhere) so Velma couldlook over those. PLAN Disposition/Recommendation: notified provider and awaiting recommendations and recommended continue engagement in self-management activities Information/Education: patient/caller able to teach back Caller agreeable to plan of care: yes The following references were used: nursing clinical judgement GER HARDWARE Telephone Encounter - Kaylie Vu M.A.N., R.N. - 04/21/2020 9:02 AM MANAGER HARDWARE SUBJECTIVE CHIEF COMPLAINT / REASON FOR CALL Covid vaccine (? safe to get) Information Discussed Left message to return our call. OK for LISSETH to give Waleska this message per Velma: Yes she is ok to get the vaccine. 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 PLAN The following references were used: nursing clinical judgement GER HARDWARE Telephone Encounter - Velma Munson APRN, C.N.P. - 04/21/2020 7:52 AM MANAGER HARDWARE Yes she is ok to get the vaccine. 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 GER HARDWARE Telephone Encounter - Keesha Friend - 04/18/2020 9:48 AM CST Pt is scheduled for vaccine on 04-24 She wants to make sure she is OK getting it GER HARDWARE documented in this encounter Plan of Treatment Upcoming Encounters Date Type Specialty Care Team Description 01/08/2022 Appointment Radiology Julián Edouard M.D. [address] [place] [phone] (Earl dowd) 01/08/2022 Ancillary Procedure Cardiovascular Disease Julián Edouard M.D. [address] [place] [phone] (Earl dowd) 01/08/2022 Comprehensive Visit Thoracic Surgery Tess Raphael M.D. [address] [place] [phone] (Wo rk) documented as of this encounter Visit Diagnoses Not on filedocumented in this encounter Additional Health Concerns Assessment Noted Time PHQ-9 Depression Total Score: 15 04/21/2018 1:00 PM CS T documented as of this encounter Care Teams Line Crewman Relationship Specialty Start Date End Date Elsewhere, Pcp PCP - General Internal Medicine 10/22/19 documented as of this encounter
--- OUTSIDE RECORDS SUMMARY | 2022-01-08 10:41 | XMS_ITS | Encounter Summary ---
:1970 Author Organization [facility] Address [address] [place] [address] Care Team Providers Name Role Phone Elsewhere, Pcp Primary Care Provider Unavailable Reason for Visit Reason Comments COVID Inquiry Encounter Details Date Type Department Care Team Description 07/10/2020 Clinical Communication Division of Velma Munson Inquiry Rheumatology in L, VETERINARY MICROBIOLOGIST, C.N.P. [place], [place] [address] [facility] [address] [place] [phone] Social History Tobacco Use Types Packs/Day Years [...] Appointment Radiology Julián Edouard M.D. [address] [place] [phone] (Wo rk) 01/08/2022 Ancillary Procedure Cardiovascular Disease Julián Edouard M.D. [address] [place] [phone] (Wo rk) 01/08/2022 Comprehensive Visit Thoracic Surgery Tess Raphael M.D. [address] [place] [phone] (Wo rk) documented as of this encounter Visit Diagnoses Not on filedocumented in this encounter Additional Health Concerns Assessment Noted Time PHQ-9 Depression Total Score: 15 04/21/2018 1:00 PM CS T documented as of this encounter Care Teams Degreasing Solution Reclaimer Relationship Specialty Start Date End Date Elsewhere, Pcp PCP - General Internal Medicine 10/22/19 documented as of this encounter
--- OUTSIDE RECORDS SUMMARY | 2022-01-08 10:41 | XMS_ITS | Encounter Summary ---
:1970 Author Organization [facility] Address [address] [place] [address] Care Team Providers Name Role Phone Elsewhere, Pcp Primary Care Provider Unavailable Encounter Details Date Type Department Care Team Description 05/21/2020 Hospital Encounter Department of Velma Munson Laboratory Medicine L, LONG, C.N .PLennox Inflammatory (HCC) in [place] [phone] [facility] [phone] [place], [place] (Work) [phone] Social History Tobacco Use [...] More than 4 times per year 11/16/2021 mormonism services? Do you belong to any clubs [...] 0 500 mg tablet mouth as needed. aspirin/acetaminophen/caff Take 1 tablet by 0 eine [...] bedtime. hydrOXYchloroQUINE Take 1-2 tablets 135 tablet 0 11/22/2019 05/27/2020 (PLAQUENIL) 200 mg tablet (200-400 mg total) by mouth daily. Take 2 tab on even days, 1 on odd. EYE EXAM NEEDED FOR FURTHER REFILLS lisinopril Take 10 mg by 0 05/27/2020 (PRINIVIL,ZESTRIL) 10 mg mouth every tablet morning. predniSONE (DELTASONE) 5 Take 30mg daily 105 tablet 0 201911/19/2020 mg tablet (15mg twice daily) for 3 days, then 20mg daily (10mg twice daily) for 3 days, then 15mg daily for 3 days, than 10mg daily for 3 days, then off. topiramate (TOPAMAX) 50 mg TAKE 1 AT BEDTIME 0 05/27/2020 tablet FOR 2 WEEKS, THEN CONTINUE 2 AT BEDTIME triamcinolone (KENALOG) Apply 1 30 g 0 08/29/2018 0 11/19/2020 0.1 % ointment application topically 2 (two) times a day. To back for 1-2 weeks until clear zolpidem (AMBIEN) 10 mg Take 10 mg by 0 05/27/2020 tablet mouth as needed. documented as of this encounter Plan of Treatment Upcoming Encounters Date Type Specialty Care Team Description 01/08/2022 Appointment Radiology Julián Edouard M.D. [address] [place] [phone] (Wo rk) 01/08/2022 Ancillary Procedure Cardiovascular Disease Julián Edouard M.D. [address] [place] [phone] (Wo rk) 01/08/2022 Comprehensive Visit Thoracic Surgery Tess Raphael M.D. [address] [place] [phone] (Wo rk) documented as of this encounter Procedures Procedure Name Priority Date/Time Associated Comments Diagnosis SEDIMENTATION RATE, B Routine 05/21/2020 7:43 Arthritis Res ults for this AM DENTAL EQUIPMENT REPAIRER Inflammatory (HCC) procedure are in the results section. CBC WITH DIFFERENTIAL, B Routine 05/21/2020 7:43 Arthritis Results for this AM DENTAL EQUIPMENT REPAIRER Inflammatory (HCC) procedure are in the results section. C-REACTIVE PROTEIN Routine 05/21/2020 7:43 Arthritis Result s for this (CRP), S/P AM DENTAL EQUIPMENT REPAIRER Inflammatory (HCC) procedure are in the results section. ASPARTATE Routine 05/21/2020 7:43 Arthritis Results for this AMINOTRANSFERASE (AST), AM DENTAL EQUIPMENT REPAIRER Inflammatory (HCC ) procedure are in S/P the results section. CREATININE WITH EGFR, Routine 05/21/2020 7:43 Arthritis Res ults for this S/P AM DENTAL EQUIPMENT REPAIRER Inflammatory (HCC) procedure are in the results section. documented in this encounter Results AST (Aspartate Aminotransferase) (05/21/2020 7:43 AM DENTAL EQUIPMENT REPAIRER) Patholo gist Method Time Signature Aspartate 22 8 - 43 05/21/2020 [facility] Aminotransferase U/L 8:04 AM DENTAL EQUIPMENT REPAIRER (AST), P Specimen Anatomical Collection Method Collection Time Receive d Time (Source) Location / / Volume Laterality Blood (Blood, 05/21/2020 7:43 AM 05/21/19 7:44 Venous) DENTAL EQUIPMENT REPAIRER AM DENTAL EQUIPMENT REPAIRER Jorge Polo APRNN.P. LAB BLOOD ADD-ON Performing Organization Address [facility] Phon e Number [address] [address] [place] [address] Creatinine with Estimated GFR (05/21/2020 7:43 AM DENTAL EQUIPMENT REPAIRER) P athologist Signature Creatinine 0.78 0.59 - 05/21/2020 [facility] 1.04 mg/dL 8:04 AM DENTAL EQUIPMENT REPAIRER eGFR-Black/Afric >90 >=60 05/21/2020 [facility] an Jordanian mL/min/BSA 8:04 AM DENTAL EQUIPMENT REPAIRER Comment: ----ADDITIONAL INFORMATION---- Estimated GFR calculated using the 2009 CKD_EPI creatinine equation. eGFR Non-Black/ >90 >=60 mL/min/BSA 05/21/2020 8:04 AM DENTAL EQUIPMENT REPAIRER [facility] Comment: ----ADDITIONAL INFORMATION---- Estimated GFR calculated using the 2009 CKD_EPI creatinine equation. Specimen Anatomical Collection Method Collection Time Receive d Time (Source) Location / / Volume Laterality Blood (Blood, 05/21/2020 7:43 AM 05/21/19 7:44 Venous) DENTAL EQUIPMENT REPAIRER AM DENTAL EQUIPMENT REPAIRER Karlene Polo APRN.N.P. LAB BLOOD ADD-ON Performing Organization Address [facility] Phon e Number [address] [address] [place] [address] [address] CRP (C-Reactive Protein) (05/21/2020 7:43 AM DENTAL EQUIPMENT REPAIRER) P athologist Signature C-Reactive 3.3 <=8.0 mg/L 05/21/2020 [facility] Protein (CRP), 8:04 AM DENTAL EQUIPMENT REPAIRER P Specimen Anatomical Collection Method Collection Time Receive d Time (Source) Location / / Volume Laterality Blood (Blood, 05/21/2020 7:43 AM 05/21/19 7:44 Venous) DENTAL EQUIPMENT REPAIRER AM DENTAL EQUIPMENT REPAIRER Velma Munson APRN, C.N.P. LAB BLOOD ADD-ON Performing Organization Address [facility] Phon e Number [address] [address] [place] [address] Sedimentation Rate (05/21/2020 7:43 AM DENTAL EQUIPMENT REPAIRER) Analysis Performed At Patho logist Time Signature Sedimentation 10 0 - 29 05/21/2020 [facility] Rate, B mm/1 h 8:32 AM DENTAL EQUIPMENT REPAIRER Specimen Anatomical Collection Method Collection Time Receive d Time (Source) Location / / Volume Laterality Blood (Blood, 05/21/2020 7:43 AM 05/21/19 7:44 Venous) DENTAL EQUIPMENT REPAIRER AM DENTAL EQUIPMENT REPAIRER Velma Munson APRN, C.N.P. LAB BLOOD ADD-ON Performing Organization Address [facility] Phon e Number [address] [address] [place] [address] CBC with Differential, Blood (05/21/2020 7:43 AM DENTAL EQUIPMENT REPAIRER) P athologist Signature Hemoglobin 14.3 11.6 - 05/21/2020 [facility] 15.0 g/dL 7:51 AM DENTAL EQUIPMENT REPAIRER Hematocrit 43.6 35.5 - 05/21/2020 [facility] 44.9 % 7:51 AM DENTAL EQUIPMENT REPAIRER Erythrocytes 5.09 3.92 - 05/21/2020 [facility]FL 5.13 7:51 AM DENTAL EQUIPMENT REPAIRER x10(12)/L MCV 85.7 78.2 - 05/21/2020 [facility] 97.9 fL 7:51 AM DENTAL EQUIPMENT REPAIRER RBC Distrib Width 13.4 12.2 - 05/21/2020 [facility] 16.1 % 7:51 AM DENTAL EQUIPMENT REPAIRER Platelet Count 275 157 - 371 05/21/2020 [facility] x10(9)/L 7:51 AM DENTAL EQUIPMENT REPAIRER Leukocytes 8.2 3.4 - 9.6 05/21/2020 [facility] x10(9)/L 7:51 AM DENTAL EQUIPMENT REPAIRER Neutrophils 5.79 1.56 - 05/21/2020 [facility]FL 6.45 7:51 AM DENTAL EQUIPMENT REPAIRER x10(9)/L Lymphocytes 1.81 0.95 - 05/21/2020 [facility]FL 3.07 7:51 AM DENTAL EQUIPMENT REPAIRER x10(9)/L Monocytes 0.48 0.26 - 05/21/2020 [facility]FL 0.81 7:51 AM DENTAL EQUIPMENT REPAIRER x10(9)/L Eosinophils 0.10 0.03 - 05/21/2020 [facility]FL 0.48 7:51 AM DENTAL EQUIPMENT REPAIRER x10(9)/L Basophils 0.04 0.01 - 05/21/2020 [facility]FL 0.08 7:51 AM DENTAL EQUIPMENT REPAIRER x10(9)/L Specimen Anatomical Collection Method Collection Time Receive d Time (Source) Location / / Volume Laterality Blood (Blood, 05/21/2020 7:43 AM 05/21/19 7:44 Venous) DENTAL EQUIPMENT REPAIRER AM DENTAL EQUIPMENT REPAIRER Velma Munson APRN C.N.P. LAB BLOOD ADD-ON Performing Organization Address City/State/ZIP Code Phon e Number [facility]- [address] [place] [address] [place] [address] [place] [address] [address] documented in this encounter Visit Diagnoses Diagnosis Arthritis Inflammatory (HCC) documented in this encounter Additional Health Concerns Assessment Noted Time PHQ-9 Depression Total Score: 15 04/21/2018 1:00 PM CS T documented as of this encounter Care Teams Regulatory Affairs Analyst Relationship Specialty Start Date End Date Elsewhere, Pcp PCP - General Internal Medicine 10/22/19 documented as of this encounter
--- OUTSIDE RECORDS SUMMARY | 2022-01-08 10:41 | XMS_ITS | Encounter Summary ---
:1970 Author Organization [facility] Address [address] [place] [address] Care Team Providers Name Role Phone Elsewhere, Pcp Primary Care Provider Unavailable Reason for Visit Reason Comments Ear pain / Mouth sores Encounter Details Date Type Department Care Team Description 08/11/2020 Clinical Division of Velma Munson Ear pain / M outh Communication Rheumatology in L, TRACK EQUIPMENT OPERATOR, C.N.P. [place], [place] [address] [facility] [address] [place] [phone] Social History Tobacco Use Types Packs/Day Years [...] Telephone Encounter - Sarah Stewart R.N. - 08/12/2020 3:09 PM CDT The transmission of the Magic mouthwash prescription to the pharmacy failed, so I have resent it. Nochanges were made to the prescription. The transmission has failed again. SUBJECTIVE CHIEF COMPLAINT / REASON FOR CALL Ear pain / Mouth sores Information Discussed I called the pharmacy. I spoke with a pharmacist who informs me that they did receive the prescription three times today. The E prescribing status still says transmission failed. PLAN Disposition/Recommendation: NA Information/Education: not applicable Caller agreeable to plan of care: yes The following references were used: nursing clinical judgement Telephone Encounter - Sarah Stewart R.N. - 08/12/2020 2:55 PM CDT Portal message sent. 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 I do not think the increase in folic acid will help. We can do magic mouth wash to see if that helps to calm it down. The pain in her ear if most likely radiation pain from her mouth. Telephone Encounter - Justine Weeks M.S.N., R.N. - 08/11/2020 4:57 PM CDT SUBJECTIVE CHIEF COMPLAINT / REASON FOR CALL Ear pain / Mouth sores Information Discussed Spoke with patient regarding her oral sores and ear pain. Her sores started on Tuesday (08/08/20) but erupted over the weekend. She reports that her glands are swollen and sore and it is difficult to eat.She is currently taking Folic Acid 1 mg daily and Methotrexate sub-q every Tuesday. She further reports she has a burst blood vessel in her eye. She went to urgent care for the ear pain from the oral sores, oral sores and eye. She was told to contact her Fine Arts Teacher about the oral sores, her ears were normal and her eye was not concerning. She denies fever or recent illness. She did miss work due to the pain. Patient was advised to increase her Folic Acid to 2 mg daily until advised further by Velma. She would like some magic mouthwash but was advised to try salt water rinses for now. PLAN Disposition/Recommendation: notified provider and awaiting recommendations Information/Education: patient/caller able to teach back Caller agreeable to plan of care: yes The following references were used: nursing clinical judgement Telephone Encounter - Dayana Vieira Aung - 08/11/2020 3:38 PM CDT Caller/authorization: [place] Provider/nurse: Velma Reason for call: patient went to urgent care locally for left ear pain and mouth sores. She stated the local doctor said her ears are clear and the pain is coming from the multiple canker sores in her mouth. Pt is having a hard time swallowing because it is so painful. The urgent care doctor thought that sores are being caused by the methotrexate and advised she follow up with her energy scheduler. Patient also stated a blood vessel in her eye busted and it hurts to close her eye. The local doctor did run labs and the liver panel is still pending. Follow-up requested: yes Preferred response (portal/phone): [phone] documented in this encounter Plan of Treatment Upcoming Encounters Date Type Specialty Care Team Description 01/08/2022 Appointment Radiology Julián Edouard M.D. [address] [place] [address] (Wo rk) 01/08/2022 Ancillary Procedure Cardiovascular Disease Julián Edouard M.D. [address] [place] [address] (Wo rk) 01/08/2022 Comprehensive Visit Thoracic Surgery Tess Raphael M.D. [address] [place] [phone] (Wo rk) documented as of this encounter Visit Diagnoses Not on filedocumented in this encounter Additional Health Concerns Assessment Noted Time PHQ-9 Depression Total Score: 15 04/21/2018 1:00 PM CS T documented as of this encounter Care Teams Contract Law Specialist Relationship Specialty Start Date End Date Elsewhere, Pcp PCP - General Internal Medicine 10/22/19 documented as of this encounter
--- OUTSIDE RECORDS SUMMARY | 2022-01-08 10:41 | XMS_ITS | Encounter Summary ---
:1970 Author Organization [facility] Address [address] [place] [address] Care Team Providers Name Role Phone Elsewhere, Pcp Primary Care Provider Unavailable Reason for Visit Reason Onset Date Comments Outpatient COVID-19 Testing 02/19/2020 Error 02/23/2020 Encounter Details Date Type Department Care Team Description 02/19/2020 External Outreach Urgent Care in [place], Infec tion Upper Respiratory (Primary Dx); [place], [place] WRAPPER SORTER, C.N.P. ERRONEOUS ENCOUNTER--DISREGARD [address] [place] [address] [place], [place] [phone] Social History Tobacco Use Types Packs/Day Years [...] More than 4 times per year 11/16/2021 adventist services? Do you belong to any clubs [...] to pay for the very basics like [employer] hat hard 11/16/2021 food, housing, medical care, [...] documented as of this encounter Progress Notes Jazzy Snider L.P.N. - 02/19/2020 8:26 AM CDT Encounter created for the drive-through COVID-19 testing. Yulia Matos C.M.A. - 02/19/2020 8:26 AM CDT This encounter was created in error - please disregard. documented in this encounter Miscellaneous Notes Addendum Note - Yulia Matos C.M.A. - 02/19/2020 8:26 AM CDT Addended by: YULIA MATOS on: 02/23/2020 11:10 AM Modules accepted: Orders, Level of Service, SmartSet documented in this encounter Plan of Treatment Upcoming Encounters Date Type Specialty Care Team Description 01/08/2022 Appointment Radiology Julián Edouard M.D. [address] [place] [address] (Wo rk) 01/08/2022 Ancillary Procedure Cardiovascular Disease Julián Edouard M.D. [address] [place] [address] (Wo rk) 01/08/2022 Comprehensive Visit Thoracic Surgery Tess Raphael M.D. 200 [place] [address] (Wo rk) documented as of this encounter Visit Diagnoses Diagnosis Infection Upper Respiratory - Primary ERRONEOUS ENCOUNTER--DISREGARD documented in this encounter Additional Health Concerns Infection Onset Date Last Indicated Resolved Time COVID19 Pending 02/19/2020 02/19/2020 02/23/2020 11:10 AM CDT Assessment Noted Time PHQ-9 Depression Total Score: 15 04/21/2018 1:00 PM CS T documented as of this encounter Care Teams Underwriting Support Manager Relationship Specialty Start Date End Date Elsewhere, Pcp PCP - General Internal Medicine 10/22/19 documented as of this encounter
--- OUTSIDE RECORDS SUMMARY | 2022-01-08 10:41 | XMS_ITS | Encounter Summary ---
:1970 Author Organization [facility] Address [address] [place] [address] Care Team Providers Name Role Phone Elsewhere, Pcp Primary Care Provider Unavailable Encounter Details Date Type Department Care Team Description 05/28/2020 Clinical Communication Division of Velma Munson Rheumatology in , DENIAL RESOLUTION SPECIALIST, C.N.P. [place], [place] [address] [facility] [address] [place] [phone] Social History Tobacco Use Types Packs/Day Years [...] place to sleep or slept in a alf (including now)? Education Answer Date Recorded What is the highest level of school you have Some college, n o degree 01/02/2019 completed or the highest degree you have received? Sex Assigned at Date Recorded Female 01/25/2018 11:49 AM CDT documented as of this encounter Plan of Treatment Upcoming Encounters Date Type Specialty Care Team Description 01/08/2022 Appointment Radiology Julián Edouard M.D. [address] [place] [address] (Wo rk) 01/08/2022 Ancillary Procedure Cardiovascular Disease Julián Edouard M.D. [address] [place] [phone] (Wo rk) 01/08/2022 Comprehensive Visit Thoracic Surgery Tess Raphael M.D. [address] [place] [phone] (Wo rk) documented as of this encounter Visit Diagnoses Not on filedocumented in this encounter Additional Health Concerns Assessment Noted Time PHQ-9 Depression Total Score: 15 04/21/2018 1:00 PM CS T documented as of this encounter Care Teams Licensed Practical Nurse Relationship Specialty Start Date End Date Elsewhere, Pcp PCP - General Internal Medicine 10/22/19 documented as of this encounter
--- OUTSIDE RECORDS SUMMARY | 2022-01-08 10:41 | XMS_ITS | Encounter Summary ---
:1970 Author Organization [facility] Address [address] [place] [address] Care Team Providers Name Role Phone Elsewhere, Pcp Primary Care Provider Unavailable Reason for Referral Outpatient (Routine) - Closed Specialty Diagnoses / Referred By Referred To Cont act Procedures Contact Gastroenterology and Julián Edouard Rocheste [facility] Hepatology Alex [address] [place] [address] Referral ID Status Reason Start Date Expiration Date Visits Requ ested Visits Authorized [id number] Closed 08/19/2020 08/19/2021 1 1 Outpatient (Routine) - Closed Specialty Diagnoses / Procedures Referred By Contact Refer red To Contact Diagnoses Flatulence Julián Edouard M.D. [facility] Procedures Breath test, Hydrogen, Lactose - Lactase deficiency [address] [place], [place] [address] Referral ID Status Reason Start Date Expiration Date Visits Requ ested Visits Authorized [id number] Closed 08/19/2020 08/19/2021 1 1 Outpatient (Routine) - Closed Specialty Diagnoses / Procedures Referred By Contact Refer red To Contact Diagnoses Flatulence Julián Edouard M.D. [facility] Procedures Breath test, Hydrogen, Glucose - Bacterial overgrowth [address] [place], [place] [address] Referral ID Status Reason Start Date Expiration Date Visits Requ ested Visits Authorized [id number] Closed 08/19/2020 08/19/2021 1 1 Outpatient (Routine) - Closed Specialty Diagnoses / Procedures Referred By Contact Refer red To Contact Diagnoses Flatulence Julián Edouard M.D. [facility] Procedures Breath test, Hydrogen, Fructose - Fructose malabsorption [address] [place] [address] Referral ID Status Reason Start Date Expiration Date Visits Requ ested Visits Authorized [id number] Closed 08/19/2020 08/19/2021 1 1 Outpatient (Routine) - Closed Specialty Diagnoses / Procedures Referred By Contact Refer red To Contact Diagnoses Gastroesophageal Reflux Disease Julián Edouard M.D. [facility] Procedures EGD (EsophagoGastroDuodenoscopy) Restricted [address] [place], [place] [phone] Referral ID Status Reason Start Date Expiration Date Visits Requ ested Visits Authorized [id number] Closed 08/19/2020 08/19/2021 1 1 Reason for Visit Reason Comments Diarrhea GERD Outpatient (Routine) - Closed Specialty Diagnoses / Referred By Referred To Cont act Procedures Contact Gastroenterology and Diagnoses Diarrhea Gastroesophageal Reflux Disease Flatulence Velma Munson, [facility] Hepatology DEPUTY JAILER, C.N.P. [address] [place] [address] Referral ID Status Reason Start Date Expiration Date Visits V isits Requested Authorized [id number] Closed Specialty 05/27/2020 05/27/2021 1 1 Services Required Encounter Details Date Type Department Care Team Description 08/19/2020 Comprehensive Visit Division of Sb Edouard ; Gastroenterology in Robert Wildees ophageal Reflux Disease; [place], [place] Alex Flatulence [address] [facility] 200 [facility] [address] [place] [address] Social History Tobacco Use Types Packs/Day Years [...] or relatives? How often do you attend confucianism or More than 4 times per year 11/16/2021 rastafari services? Do you belong to any clubs or No 11/16/2021 organizations such as confucianism groups, unions, fraternal or athletic groups, or [...] place to sleep or slept in a mcc (including now)? Education Answer Date Recorded What is the highest level of school you have Some college, n o degree 01/02/2019 completed or the highest degree you have received? Sex Assigned at Date Recorded Female 01/25/2018 11:49 AM CDT documented as of this encounter Consult Notes Julián Edouard M.D. - 08/19/2020 8:00 AM CDT SUBJECTIVE REASON FOR CONSULT Mrs. Diaz is referred for diarrhea, gastroesophageal reflux disease, and flatulence. HISTORY OF PRESENT ILLNESS The patient was previously seen in GI in 2018. She has a history of gastrointestinal disorders that goes back several years. She had a lap band placement in 2008 and a cholecystectomy at the age of 22.When she was seen in 2018, she was having intermittent diarrhea. Her bowel habit fluctuates between B ristol type 3 and 7 with occasional Burnet type 1. She typically has a bowel movement every day. She does relate an episode once a month where she will get incontinent, and that was even a problem cited in 2018. She complained of increased flatulence even then. She has used some laxatives in the pastand even used Linzess apparently. She also describes a burning in her throat. This happens fairly regularly. It is not associated withdysphagia. She has tried PPI, Carafate, and Tums, none of which provide her any significant relief. She had both an EGD and a colonoscopy in approximately 2015 which were apparently normal, and she wasjust scoped in April of 2020 with a negative result. She does have a mixed connective tissue disease and is on methotrexate. She is also on Adderall. In reviewing her diet with her, she tends not to eat breakfast and often does not have lunch becauseeating tends to bother her. She describes that when foods bother her, it is usually within 20 minutes of eating them. The flatulence is a major issue for her, but it appears that nothing has changed dramatically since the previous studies. OBJECTIVE PHYSICAL EXAMINATION Abdomen: Soft. There is some slight tenderness on the right side. There are no masses or organomegaly. ASSESSMENT / PLAN #1 Iirritable bowel The patient was diagnosed with irritable bowel previously, and I suspect that is indeed the case. They had recommended some breath tests at the time, but that was never completed. At this time, to lookfor the cause of the flatulence, I introduced her to the FODMAP diet, and we will proceed with lactose, fructose, and bacterial overgrowth testing to see if we can pinpoint a cause of the flatulence. She has a daughter who is both lactose and fructose intolerant. She has been tested for celiac disease, and that has been negative. #2 Substernal burning Given the degree of burning and its lack of response to medication, I think it is reasonable to proceed with a Lynn capsule since she is not taking a PPI. It is possible that this all represents a hypersensitive esophagus and has nothing to do with gastroesophageal reflux. Given that she is on methotrexate and may have some esophageal dysmotility related to her underlying mixed connective tissue disease, it would be important to prove there is no other abnormality including the possibility of Silvia. She did, however, have the recent endoscopy, so at this point, it is a matter of proving whether or not she actually has gastroesophageal reflux. I will see her back when the test results are available. Julián Edouard M.D. CT CT Job ID: [id number] documented in this encounter Plan of Treatment Upcoming Encounters Date Type Specialty Care Team Description 01/08/2022 Appointment Radiology Julián Edouard M.D. [address] [place] [phone] (Wo rk) 01/08/2022 Ancillary Procedure Cardiovascular Disease Julián Edouard M.D. [address] [place] [phone] (Earl dowd) 01/08/2022 Comprehensive Visit Thoracic Surgery Tess Raphael M.D. [address] [place] [address] (Earl dowd) Scheduled Orders Name Type Priority Associated Diagnoses Order S chedule Breath test, Hydrogen, GI Routine Flatulence Expec meño: 08/19/2020 Fructose - Fructose (Approxi mate), malabsorption Expires: 08/19 Breath test, Hydrogen, GI Routine Flatulence Expec meño: 08/19/2020 Glucose - Bacterial (Approxi mate), overgrowth Expires: 2023 Breath test, Hydrogen, GI Routine Flatulence Expec meño: 08/19/2020 Lactose - Lactase deficiency (Approximate), Expires: 2023 Scheduled Referrals Name Type Priority Associated Order Schedule Diagnoses Gastroenterology and Outpatient Routine 1 Occur [facility] Hepatology office visit Referral edyta english (clinic) 08/19/2020 unti shyam 08/20/2023 documented as of this encounter Visit Diagnoses Diagnosis Diarrhea Gastroesophageal Reflux Disease Flatulence documented in this encounter Additional Health Concerns Assessment Noted Time PHQ-9 Depression Total Score: 15 04/21/2018 1:00 PM CS T documented as of this encounter Care Teams Safety Equipment Testing Specialist Relationship Specialty Start Date End Date Elsewhere, Pcp PCP - General Internal Medicine 10/22/19 documented as of this encounter
--- OUTSIDE RECORDS SUMMARY | 2022-01-08 10:41 | XMS_ITS | Encounter Summary ---
:1970 Author Organization [facility] Address [address] [place] [address] Care Team Providers Name Role Phone Elsewhere, Pcp Primary Care Provider Unavailable Reason for Referral Outpatient (Routine) - Closed Specialty Diagnoses / Procedures Referred By Contact Refer red To Contact Rheumatology Velma Munson APRN, [facility] C.N.P. [address] [place] [phone] Referral ID Status Reason Start Date Expiration Date Visits Requ ested Visits Authorized [id number] Closed 05/28/2020 05/28/2021 1 1 TREAT OPERATOR Outpatient (Routine) - Closed Specialty Diagnoses / Referred By Referred To Cont act Procedures Contact Gastroenterology and Diagnoses Diarrhea Gastroesophageal Reflux Disease Flatulence Velma Munson [facility] Hepatology LONG, C.N.P. [address] [place] [phone] Referral ID Status Reason Start Date Expiration Date Visits V isits Requested Authorized [id number] Closed Specialty 05/27/2020 05/27/2021 1 1 Services Required TREAT OPERATOR Reason for Visit Outpatient (Routine) - Closed Specialty Diagnoses / Procedures Referred By Contact Refer red To Contact Rheumatology Velma Munson APRN, [facility] C.N.P. [address] [place] [phone] Referral ID Status Reason Start Date Expiration Date Visits Requ ested Visits Authorized [id number] Closed 01/10/2020 01/09/2021 1 1 Encounter Details Date Type Department Care Team Description 05/27/2020 Office Visit Division of Velma Munson Arthritis In flammatory (HCC) (Primary Dx); Rheumatology in L, BREAD DISTRIBUTOR, C.N.P. Diarrhea; [place], [place] 200 [facility] High Risk Medication; 200 [place], [place] Gastroesophageal Reflux Dise ase; [place] [address] Flatulence; [id number] Xerostomia Social History Tobacco Use Types Packs/Day Years [...] Sign Reading Time Taken Comments Blood Pressure 113/75 05/27/2020 2:50 PM HEAT TREAT OPERATOR Pulse 115 05/27/2020 2:50 PM HEAT TREAT OPERATOR Temperature 37.2 ??C (99 ??F) 05/27/2020 2:50 PM HEAT TREAT OPERATOR Respiratory Rate - - Oxygen Saturation - - Inhaled Oxygen Concentration - - Weight 77.6 kg (171 lb 1.2 oz) 05/27/2020 2:50 PM HEAT TREAT OPERATOR Height 158.3 cm (5' 2.32) 05/27/2020 2:50 PM HEAT TREAT OPERATOR Body Mass Index 30.97 05/27/2020 2:50 PM HEAT TREAT OPERATOR documented in this encounter Progress Notes Velma Munson, LONG, C.N.P. - 05/27/2020 2:45 PM CST Images from the original note were not [...] but on a reevaluation later by a hockey scout the diagnosis of mixed connective tissue disease [...] 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 She had herlap band removed in summer and since then she has gained 45 lbs. She states she has been dealing with explosive diarrhea, flatulence, GERD, and very dry mouth. Her primary care provider gave her sucralfate to see if this would help. She states her left 5th fingers also been very painful along with her right hip. She did fall 1.5 months ago and sprained her ankle. She states that the fatigue is severe and limits her daily activities. She was very tearful during the appointment due to her all of her systemic symptoms. She also had an episode of possible seizure as she did when she was a childlast week. She ended up having a aura of human urine twice and then the next day she was very fatigued and had to sleep all day. This is the type of seizure she had from age 6 until her early 20's. Shecontinues have Raynaud's in her hands and feet with no ulcerations. Currently she is taking Cardura.She continues take Plaquenil 200 mg on odd days and 400 mg on even days. She denies any recent hospitalizations. She denies any adverse side effects to Plaquenil. Rheumatoid Arthritis RF +: No CCP +: No Current Symptoms: diarrhea (IBS), dry eyes, dry mouth, fatigue (worse), Raynaud's syndrome (no digital ulcers), nausea (IBS ), vomiting, abdominal pain (umbicial pain) and heartburn (maybe just starteda antiacid) Current Symptoms: no fever, no rash (itching on the arms and face), no weight loss, no excessive bruising, no cough, no chest pain, no edema, no anorexia, no chills, no night sweats, no oral ulcers, noeye inflammation and no dyspnea Previous Reports Reviewed:lab reports and office notes The following portions of the patient's history were reviewed and updated as appropriate: family history, medical history, social history, surgical history and problem list. REVIEW OF SYSTEMS Pertinent positives and negatives as documented in the above history of present illness. Constitutional: Positive for fatigue (worse) and loss of appetite. Negative for chills, fever, nightsweats, weight gain of more than 10 pounds [...] started a antiacid), nausea (IBS ) and vomiting. Negative for anorexia. Musculoskeletal: Positive [...] ulcers noted. Eyes: Clear conjunctivae and lids. Ears, nose, and throat: Moist oral mucosa without mucositis. Lymph: No cervical or supraclavicular adenopathy. Cardio: Regular rate. No murmurs or rubs. Lungs: Clear to auscultation bilaterally. Extremities: No limitations in ROM bilaterally. Joints: No synovitis of the upper and lower extremities including hands, wrists, elbows, knees, ankles or feet bilaterally. Range of motion of the extremities including shoulders and hips are within functional limits bilaterally. Right trochanteric bursa tender to palpation. Lab: CBC with differential, creatinine, GFR, and AST all within normal limits. CRP is 3.3. ESR is normal. 05/27/2020 Tender joint count (0-28) 0 Swollen joint count (0-28) 0 Patient global assessment (0-100) 12 Sample Cutter global assessment (0-100) 10 ESR (mm/h) 10 CRP (mg/L) 3.3 Disease Activity Score 28 using ESR ([id number]) 1.78 Disease Activity Score 28 using CRP ([id number]) 1.65 Clinical Disease Activity Index (CDAI) 2.2 Simplified Disease Activity Index (SDAI) 2.53 ASSESSMENT / PLAN #1 Arthritis Inflammatory (HCC) #2 Increased fatigue #3 Diarrhea #4 Increased weight gain #5 Flatuelence #6 Xerostomia I could not detect synovitis on exam today. She is having a lot other GI symptoms and increased fatigued. I have ordered a GI consult due to the recent removal of her lap band with diarrhea, increased weight gain and flatulence. For the dry mouth I have ordered Salagen 5 mg 3 times a day. At this time she will continue Plaquenil to 400 mg on even days and 200 mg on odd days. At this time I do not want to start her on methotrexate due to the gastric symptoms she is having. I also want to make sure we haveconfirmed synovitis on exam before we do this. Patient was in agreement with this plan. #7 Possible seizure I have asked her to monitor if this happens again as she needs to be elevated by her PCP and most likely neurology. #8 High Risk Medication Last Plaquenil eye exam [...] that she contact us at that time. TREAT OPERATOR documented in this encounter Plan of Treatment Upcoming Encounters Date Type Specialty Care Team Description 01/08/2022 Appointment Radiology Julián Edouard M.D. [address] [place] [address] (Wo rk) 01/08/2022 Ancillary Procedure Cardiovascular Disease Julián Edouard M.D. 200 [place] [phone] (Wo rk) 01/08/2022 Comprehensive Visit Thoracic Surgery Tess Raphael M.D. 200 [place] [phone] (Wo rk) Scheduled Referrals Name Type Priority Associated Order Schedule Diagnoses Gastroenterology and Outpatient Routine Diarrhea Expected: Hepatology - General Referral Gastroesophageal gastroenterology consult Reflux Disease (Approximate), (clinic) Flatulence Expires: 05/27/2023 Rheumatology office Outpatient Routine Expected : visit (clinic) Referral 08/26/2020 (Approximate), Expires: 05/28/2023 documented as of this encounter Results AST (Aspartate Aminotransferase) (07/16/2020 12:42 PM CDT) [facility] gist Method Time Signature Aspartate 25 8 - 43 07/16/2020 [facility] Aminotransferase U/L 1:33 PM CDT (AST), P Specimen Anatomical Collection Method Collection Time Receive d Time (Source) Location / / Volume Laterality Blood (Blood, 07/16/2020 12:42 07/16/2020 1:08 Venous) PM CDT PM CDT Jorge Polo APRNNLennoxPLennox LAB BLOOD ADD-ON Performing Organization Address City/State/ZIP Code Phon e Number [facility]- [address] [place] [phone] [address] [place] [place] [address] System in [address] Creatinine with Estimated GFR (07/16/2020 12:42 PM CDT) P athologist Signature Creatinine 0.84 0.59 - 07/16/2020 [facility] 1.04 mg/dL 1:33 PM CDT eGFR-Black/Afric >90 >=60 07/16/2020 [facility] an Macanese mL/min/BSA 1:33 PM CDT Comment: ----ADDITIONAL INFORMATION---- [...] Organization Address City/State/ZIP Code Phon e Number [facility]- [address] [place], [place] [address] [facility] [place] [facility] [place] [address] System in [place] [address] [place] CRP (C-Reactive Protein) (07/16/2020 12:42 PM CDT) P athologist Signature C-Reactive 5.0 <=8.0 mg/L 07/16/2020 [facility] Protein (CRP), 1:33 PM CDT P Specimen Anatomical Collection Method Collection Time Receive d Time (Source) Location / / Volume Laterality Blood (Blood, 07/16/2020 12:42 07/16/2020 1:08 Venous) PM CDT PM CDT Velma Munson APRN, C.N.P. LAB BLOOD ADD-ON Performing Organization Address City/State/ZIP Code Phon e Number [facility]- [address] [place], [place] [address] [facility] [place] [facility] [place] [address] System in [place] [address] [place] Sedimentation Rate (07/16/2020 12:42 PM CDT) Analysis Performed At Patho logist Time Signature Sedimentation 13 0 - 29 07/16/2020 [facility] Rate, B mm/1 h 3:10 PM CDT Specimen Anatomical Collection Method Collection Time Receive d Time (Source) Location / / Volume Laterality Blood (Blood, 07/16/2020 12:42 07/16/2020 1:07 Venous) PM CDT PM CDT Velma Munson APRN, C.N.P. LAB BLOOD ADD-ON Performing Organization Address City/State/ZIP Code Phon e Number [facility]- [address] [facility] [place] [address] [facility] [place] [facility] [place] [address] System in [place] [address] [place] CBC with Differential, Blood (07/16/2020 12:42 PM [...] PM CDT PM CDT Velma Munson APRN C.N.PLennox LAB BLOOD ADD-ON Performing Organization Address City/State/ZIP Code Phon e Number [facility]- [address] [place], [place] [address] [address] [facility] [place] [address] System in [place] [address] documented in this encounter Visit Diagnoses Diagnosis Arthritis Inflammatory (HCC) - Primary Diarrhea High Risk Medication Gastroesophageal Reflux Disease Flatulence Xerostomia documented in this encounter Additional Health Concerns Assessment Noted Time PHQ-9 Depression Total Score: 15 04/21/2018 1:00 PM CS T documented as of this encounter Care Teams District Court Justice Relationship Specialty Start Date End Date Elsewhere, Pcp PCP - General Internal Medicine 10/22/19 documented as of this encounter
--- OUTSIDE RECORDS SUMMARY | 2022-01-08 10:42 | XMS_ITS | Encounter Summary ---
:1970 Author Organization [facility] Address [address] [place] [address] Care Team Providers Name Role Phone Elsewhere, Pcp Primary Care Provider Unavailable Reason for Visit Reason Comments COVID Nurse Line Encounter Details Date Type Department Care Team Description 12/14/2019 Clinical Communication Division of Velma Munson Nurse Line Rheumatology in L, CLEANER OPERATOR, C.N.P. [place], [place] [address] [facility] [address] [place] [phone] Social History Tobacco Use Types Packs/Day Years Used Date Smoking Tobacco: Never Smokeless Tobacco: Never Alcohol Use Standard Drinks/Week Comments Yes 0 (1 standard drink = 0.6 oz [...] or relatives? How often do you attend restorationist or More than 4 times per year 11/16/2021 latter day services? Do you belong to any clubs or No 11/16/2021 organizations such as restorationist groups, unions, fraternal or athletic groups, or [...] this encounter Miscellaneous Notes Telephone Encounter - Tamica Kramer - 12/14/2019 10:13 AM CDT (RST and [facility] locations only: If the patient is not having symptoms and is requesting COVID-19 Nasal Swab testing only, use the process listed in the COVID-19 Patient Requesting COVID PCR Test OTG COVID-19 [place] Patient Requesting COVID PCR Test). In the past 30 days have you had a swab for COVID that tested positive? no Route reply to: Kathleen U SCHEDULING Scheduling Contact Number: [phone] documented in this encounter Plan of Treatment Upcoming Encounters Date Type Specialty Care Team Description 01/08/2022 Appointment Radiology Julián Edouard M.D. [address] [place] [phone] (Earl dowd) 01/08/2022 Ancillary Procedure Cardiovascular Disease Julián Edouard M.D. [address] [place] [phone] (Earl dowd) 01/08/2022 Comprehensive Visit Thoracic Surgery Tess Raphael M.D. [address] [place] [phone] (Earl dowd) documented as of this encounter Visit Diagnoses Not on filedocumented in this encounter Additional Health Concerns Assessment Noted Time PHQ-9 Depression Total Score: 15 04/21/2018 1:00 PM CS T documented as of this encounter Care Teams Renovator Machine Operator Relationship Specialty Start Date End Date Elsewhere, Pcp PCP - General Internal Medicine 10/22/19 documented as of this encounter
--- OUTSIDE RECORDS SUMMARY | 2022-01-08 10:42 | XMS_ITS | Encounter Summary ---
:1970 Author Organization [facility] Address [address] [place] [address] Care Team Providers Name Role Phone Elsewhere, Pcp Primary Care Provider Unavailable Encounter Details Date Type Department Care Team Description 10/26/2019 Hospital Encounter Department of Employer Based, [facility] For Laboratory Medicine Covid Serology Screen ing For Other in [place], [facility] [address] [place] [phone] Social History Tobacco Use Types Packs/Day [...] More than 4 times per year 11/16/2021 baptism services? Do you belong to any clubs [...] 0 500 mg tablet mouth as needed. aspirin/acetaminophen/caf Take 1 tablet by 0 feine (EXCEDRIN MIGRAINE mouth as needed. ORAL) dextroamphetamine-ampheta Take 45 mg by mouth 0 mine (ADDERALL) 30 mg every morning. tablet hydrOXYzine (ATARAX) 25 Take 25 mg by mouth 0 mg tablet every 6 (six) hours as needed for itching. SUMAtriptan (IMITREX Inject under the 0 5 STATDOSE) 6 mg/0.5 mL skin as needed. injection pen Uses 2-4x/month for migraine. Uses once and then once again after 1h if no effect. cetirizine (ZyrTEC) 10 mg Take 10 mg by mouth 0 04/30/2020 tablet daily as needed for allergies (allergy triggers--animal dander/dust/cotton) . DULoxetine (CYMBALTA) 20 Take 1 capsule (20 90 capsule 1 07/17/[address] capsule mg total) by mouth at bedtime. fluticasone (FLONASE) 50 Administer 1 spray 0 04/30/2020 mcg/actuation nasal spray into affected nostril(s) as needed. hydroxychloroquine Take 1-2 tablets 135 tablet 0 08/14/2019 11/20/2019 (PLAQUENIL) 200 mg tablet (200-400 mg total) by mouth daily. Take 2 tabs on even days, 1 tab on odd days. Eye exam needed for further refills. levonorgestrel (MIRENA) 1 Device by 0 06/30/2015 04/30/2020 20 mcg/24 hr (5 years) intrauterine route. IUD lisinopril Take 10 mg by mouth 0 05/27 (PRINIVIL,ZESTRIL) 10 mg every morning. tablet predniSONE (DELTASONE) 5 Take 30mg daily 50 tablet 0 201801/10/2020 mg tablet (15mg twice daily) for 3 days, than 20mg daily (10mg twice daily) for 3 days, than 15mg daily for 3 days, than 10mg daily. topiramate (TOPAMAX) 50 TAKE 1 AT BEDTIME 0 07/0405/27/2020 mg tablet FOR 2 WEEKS, THEN CONTINUE 2 AT BEDTIME triamcinolone (KENALOG) Apply 1 application 30 g 0 11/19/2020 0.1 % ointment topically 2 (two) times a day. To back for 1-2 weeks until clear zolpidem (AMBIEN) 10 mg Take 10 mg by mouth 0 05/27/2020 tablet as needed. documented as of this encounter Plan of Treatment Upcoming Encounters Date Type Specialty Care Team Description 01/08/2022 Appointment Radiology Julián Edouard M.D. [address] [place] [phone] (Earl dowd) 01/08/2022 Ancillary Procedure Cardiovascular Disease Julián Edouard M.D. [address] [place] [phone] (Earl dowd) 01/08/2022 Comprehensive Visit Thoracic Surgery Tess Raphael M.D. [address] [place] [address] (Earl dowd) documented as of this encounter Procedures Procedure Name Priority Date/Time Associated Diagnosis Comme nts SARS-COV-2 TOTAL Routine 10/26/2019 9:43 AM Encounter For Resu lts for this ANTIBODY, SERUM CDT Screening For Other proce dure are in Viral Diseases the results (COVID-19) section. documented in this encounter Results SARS-CoV-2 Total Antibody, Serum (10/26/2019 9:43 AM CDT) [facility] gist Method Time Signature SARS-CoV-2 Negative Negative 10/26/2019 [facility] Nucleocapsid 3:21 PM CDT Total Ab, S Comment: No antibodies to SARS-CoV-2 detected. Ne gative results may occur in serum collected too soon fo llowing infection or in immunosuppressed patients. Follow- up testing with a molecular test is recommended in symptom atic patients. This test should not be used to exclude activ e/recent COVID-19. ----ADDITIONAL INFORMATION---- Testing was performed using the [employer] El ecsys [id number] Reagent assay from [employer], which has received Emergency Use Authori zation(EUA) by the U.S. Food and Drug Administration . Fact sheets for this Emergency Use Autho rization (EUA) assay can be found at the following link s: For Healthcare Providers: https://www.fda.gov/media/949154/downloa d For Patients: https://www.fda.gov/media/944291/downloa d Specimen Anatomical Collection Method Collection Time Receive d Time (Source) Location / / Volume Laterality Blood (Blood, 10/26/2019 9:43 AM 10/26/19 20 2:40 Venous) CDT PM CDT Covid Serology Testing Employer Based LAB MICROBIOLOGY - BLOOD ORDERABLES Performing Organization Address City/State/ZIP Code Phon e Number [facility]- [address] [place] [phone] [facility] [place] [address] [address] documented in this encounter Visit Diagnoses Diagnosis Encounter For Screening For Other Viral Diseases (COVID-19) documented in this encounter Additional Health Concerns Assessment Noted Time PHQ-9 Depression Total Score: 15 04/21/2018 1:00 PM CS T documented as of this encounter Care Teams Cobol Application Developer Relationship Specialty Start Date End Date Elsewhere, Pcp PCP - General Internal Medicine 10/22/19 documented as of this encounter
--- OUTSIDE RECORDS SUMMARY | 2022-01-08 10:42 | XMS_ITS | Encounter Summary ---
:1970 Author Organization [facility] Address [address] [place] [address] Care Team Providers Name Role Phone Unavailable Primary Care Provider Unavailable Reason for Visit Reason Comments Symptom Assessment heart fluttering Encounter Details Date Type Department Care Team Description 09/20/2019 Clinical Communication Division of Pineda Espinoza om Assessment Rheumatology in Cam Jain R.N. (heart fluttering) [place], [place] [address] [place] [address] [place] [phone] Social History Tobacco Use Types Packs/Day Years [...] or relatives? How often do you attend scientology or More than 4 times per year 11/16/2021 christian services? Do you belong to any clubs or No 11/16/2021 organizations such as scientology groups, unions, fraternal or athletic groups, or [...] Encounter - Velma Munson APRN, C.N.P. - 09/20/2019 3:46 PM CDT She has been on and off Plaquenil for years with no heart issues. I would recommend for her to see her PCP and have cardiac studies done such as holter and EKG. Telephone Encounter - Cam Espinoza R.N. - 09/20/2019 1:44 PM CDT ASSESSMENT Patient reports that for the last couple of weeks, she has felt heart fluttering. This comes and goes, and lasts only a few seconds. She does note that it has been getting more frequent, and she has recent increase in fatigue. She was evaluated by her primary care provider for this and was prescribed s teroids and a zinc supplement. She denies any recent changes in medication or health history, and also denies excess caffeinated beverages. She denies shortness of breath, chest pain, and jaw pain. She has felt lightheaded in the past, but says this lasts only a second. She also noted that recently she has had some burning in her throat. This was also addressed by her PCP. Her PCP did not address the heart palpitations any further than telling her to call rheumatology, but was aware. 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 Disposition/Recommendation: recommended continue engagement in self-management activities. Information/Education: patient/caller able to teach back. Caller agreeable to plan of care: yes. The following references were used: nursing clinical judgement. documented in this encounter Plan of Treatment Upcoming Encounters Date Type Specialty Care Team Description 01/08/2022 Appointment Radiology Julián Edouard M.D. [address] [place] [phone] (Wo rk) 01/08/2022 Ancillary Procedure Cardiovascular Disease Julián Edouard M.D. [address] [place] [phone] (Wo rk) 01/08/2022 Comprehensive Visit Thoracic Surgery Tess Raphael M.D. [address] [place] [phone] (Wo rk) documented as of this encounter Visit Diagnoses Not on filedocumented in this encounter Additional Health Concerns Assessment Noted Time PHQ-9 Depression Total Score: 15 04/21/2018 1:00 PM CS T documented as of this encounter
--- OUTSIDE RECORDS SUMMARY | 2022-01-08 10:42 | XMS_ITS | Encounter Summary ---
:1970 Author Organization [facility] Address [address] [place] [address] Care Team Providers Name Role Phone Elsewhere, Pcp Primary Care Provider Unavailable Reason for Visit Reason Comments Med Refill Encounter Details Date Type Department Care Team Description 02/13/2020 Refill Division of Rheumatology in Smita Munson sa, APRN, Med Refill [place], [place] C.N.P. [address] [facility] [address] [place] [address] [place] [address] [phone] (Wo rk) Social History Tobacco Use Types [...] More than 4 times per year 11/16/2021 gnosticist services? Do you belong to any clubs [...] Telephone Encounter - Cam Espinoza R.N. - 02/20/2020 3:34 PM CDT Need to see if she needs this again or not and what dose of prednisone she is on. documented in this encounter Plan of Treatment Upcoming Encounters Date Type Specialty Care Team Description 01/08/2022 Appointment Radiology Julián Edouard M.D. [address] [place] [phone] (Earl dowd) 01/08/2022 Ancillary Procedure Cardiovascular Disease Julián Edouard M.D. [address] [place] [phone] (Earl dowd) 01/08/2022 Comprehensive Visit Thoracic Surgery Tess Raphael M.D. [address] [place] [phone] (Earl dowd) documented as of this encounter Visit Diagnoses Not on filedocumented in this encounter Additional Health Concerns Infection Onset Date Last Indicated Resolved Time COVID19 Pending 02/19/2020 02/19/2020 02/23/2020 11:10 AM CDT Assessment Noted Time PHQ-9 Depression Total Score: 15 04/21/2018 1:00 PM CS T documented as of this encounter Care Teams Waiter/Waitress Informal Relationship Specialty Start Date End Date Elsewhere, Pcp PCP - General Internal Medicine 10/22/19 documented as of this encounter
--- OUTSIDE RECORDS SUMMARY | 2022-01-08 10:42 | XMS_ITS | Encounter Summary ---
:1970 Author Organization [facility] Address [address] [place] [id number] Care Team Providers Name Role Phone Elsewhere, Pcp Primary Care Provider Unavailable Encounter Details Date Type Department Care Team Description 12/28/2019 Hospital Encounter Department of Velma Munson Rheumatoid Laboratory Medicine [facility]) in [place] [phone] [facility] [phone] [place], [place] (Work) [phone] Social History Tobacco Use [...] nasal spray into affected nostril(s) as needed. hydrOXYchloroQUINE Take 1-2 tablets 135 tablet 0 11/22/2019 05/27/2020 (PLAQUENIL) 200 mg tablet (200-400 mg total) by mouth daily. Take 2 tab on even days, 1 on odd. EYE EXAM NEEDED FOR FURTHER REFILLS levonorgestrel (MIRENA) 1 Device by 0 06/30/2015 [...] Appointment Radiology Julián Edouard M.D. [address] [place] [phone] (Earl dowd) 01/08/2022 Ancillary Procedure Cardiovascular Disease Julián Edouard M.D. [address] [place] [phone] (Earl dowd) 01/08/2022 Comprehensive Visit Thoracic Surgery Tess Raphael M.D. [address] [place] [phone] (Earl dowd) documented as of this encounter Procedures Procedure Name Priority Date/Time Associated Comments Diagnosis CBC WITH DIFFERENTIAL, B Routine 12/28/2019 10:27 Arthritis Results for this AM CDT Rheumatoid (HCC) procedure a re in the results section. SEDIMENTATION RATE, B Routine 12/28/2019 10:26 Arthritis Re sults for this AM CDT Rheumatoid (HCC) procedure a re in the results section. C-REACTIVE PROTEIN Routine 12/28/2019 10:26 Arthritis Resul ts for this (CRP), S/P AM CDT Rheumatoid (HCC) procedure a re in the results section. ASPARTATE Routine 12/28/2019 10:26 Arthritis Results for this AMINOTRANSFERASE (AST), AM CDT Rheumatoid (HCC) procedure are in S/P the results section. CREATININE WITH EGFR, Routine 12/28/2019 10:26 Arthritis Re sults for this S/P AM CDT Rheumatoid (HCC) procedure a re in the results section. documented in this encounter Results CBC with Differential, Blood (12/28/2019 10:27 AM CDT) P athologist Signature Hemoglobin 13.4 11.6 - 12/28/2019 CNFL 15.0 g/dL 10:35 AM CDT Hematocrit 40.8 35.5 - 12/28/2019 CNFL 44.9 % 10:35 AM CDT Erythrocytes 4.93 3.92 - 12/28/2019 CNFL 5.13 10:35 AM CDT x10(12)/L MCV 82.8 78.2 - 12/28/2019 CNFL 97.9 fL 10:35 AM CDT RBC Distrib Width 13.4 12.2 - 12/28/2019 CNFL 16.1 % 10:35 AM CDT Platelet Count 270 157 - 371 12/28/2019 CNFL x10(9)/L 10:35 AM CDT Leukocytes 8.0 3.4 - 9.6 12/28/2019 CNFL x10(9)/L 10:35 AM CDT Neutrophils 5.24 1.56 - 12/28/2019 CNFL 6.45 10:35 AM CDT x10(9)/L Lymphocytes 2.07 0.95 - 12/28/2019 CNFL 3.07 10:35 AM CDT x10(9)/L Monocytes 0.51 0.26 - 12/28/2019 CNFL 0.81 10:35 AM CDT x10(9)/L Eosinophils 0.13 0.03 - 12/28/2019 CNFL 0.48 10:35 AM CDT x10(9)/L Basophils 0.04 0.01 - 12/28/2019 CNFL 0.08 10:35 AM CDT x10(9)/L Specimen Anatomical Collection Method Collection Time Receive d Time (Source) Location / / Volume Laterality Blood (Blood, 12/28/2019 10:27 12/28/2019 Venous) AM CDT 10:28 AM CDT Velma Munson APRN, Karlene.N.P. LAB BLOOD ADD-ON Performing Organization Address City/[facility]/ZIP Code Phon e Number [address] [address] [place] [address] System in [place] [address] Bl CRP (C-Reactive Protein) (12/28/2019 10:26 AM CDT) P athologist Signature C-Reactive 3.8 <=8.0 mg/L 12/28/2019 CNFL Protein (CRP), 10:47 AM CDT P Specimen Anatomical Collection Method Collection Time Receive d Time (Source) Location / / Volume Laterality Blood (Blood, 12/28/2019 10:26 12/28/2019 Venous) AM CDT 10:28 AM CDT Velma Munson APRN, Karlene.N.P. LAB BLOOD ADD-ON Performing Organization Address City/[facility] Code Phon e Number [address] [address] [place] [address] System in [address] Sedimentation Rate (12/28/2019 10:26 AM CDT) Analysis Performed At Patho logist Time Signature Sedimentation 13 0 - 29 12/28/2019 CNFL Rate, B mm/1 h 11:46 AM CDT Specimen Anatomical Collection Method Collection Time Receive d Time (Source) Location / / Volume Laterality Blood (Blood, 12/28/2019 10:26 12/28/2019 Venous) AM CDT 10:28 AM CDT Velma Mnuson APRN, C.N.P. LAB BLOOD ADD-ON Performing Organization Address City/[facility]/ZIP Code Phon e Number [address] [address] [place] [address] System in [place] [address] [address] Creatinine with Estimated GFR (12/28/2019 10:26 AM CDT) P athologist Signature Creatinine 0.71 0.59 - 12/28/2019 CNFL 1.04 mg/dL 10:47 AM CDT eGFR-Black/Afric >90 >=60 12/28/2019 CNFL an [place] mL/min/BSA 10:47 AM CDT Comment: ----ADDITIONAL INFORMATION---- Estimated GFR calculated using the 2009 CKD_EPI creatinine equation. eGFR Non-Black/ >90 >=60 mL/min/BSA 12/28/2019 10:47 AM CDT CNFL Comment: ----ADDITIONAL INFORMATION---- Estimated GFR calculated using the 2009 CKD_EPI creatinine equation. Specimen Anatomical Collection Method Collection Time Receive d Time (Source) Location / / Volume Laterality Blood (Blood, 12/28/2019 10:26 12/28/2019 Venous) AM CDT 10:28 AM CDT Velma Munson APRN, C.N.P. LAB BLOOD ADD-ON Performing Organization Address City/State/ZIP Code Phon e Number [address] [address] [place] [address] System in [place] [address] [address] AST (Aspartate Aminotransferase) (12/28/2019 10:26 AM CDT) Patholo gist Method Time Signature Aspartate 19 8 - 43 12/28/2019 CNFL Aminotransferase U/L 10:47 AM CDT (AST), P Specimen Anatomical Collection Method Collection Time Receive d Time (Source) Location / / Volume Laterality Blood (Blood, 12/28/2019 10:26 12/28/2019 Venous) AM CDT 10:28 AM CDT Velma Munson APRN, C.N.P. LAB BLOOD ADD-ON Performing Organization Address City/State/ZIP Code Phon e Number [address] [address] [place] [address] System in [place] documented in this encounter Visit Diagnoses Diagnosis Arthritis Rheumatoid (HCC) documented in this encounter Additional Health Concerns Assessment Noted Time PHQ-9 Depression Total Score: 15 04/21/2018 1:00 PM CS T documented as of this encounter Care Teams Polysom Tech Relationship Specialty Start Date End Date Elsewhere, Pcp PCP - General Internal Medicine 10/22/19 documented as of this encounter
--- OUTSIDE RECORDS SUMMARY | 2022-01-08 10:42 | XMS_ITS | Encounter Summary ---
:1970 Author Organization [facility] Address [address] [place] [address] Care Team Providers Name Role Phone Unavailable Primary Care Provider Unavailable Reason for Visit Reason Comments [facility] Encounter Details Date Type Department Care Team Description 09/07/2018 Office Visit Department of Occupational Ana Cristina Johnson M.D. Drug Screen Medicine in [address] [phone] [place] [phone] [phone] Social History Tobacco Use Types Packs/Day Years Used Date Smoking Tobacco: Never Smokeless Tobacco: Never Alcohol Habits Answer Date Recorded How often [...] or slept in a penitentiary (including now)? Sex Assigned at Date Recorded Female 01/25/2018 11:49 AM CDT documented as of this encounter Progress Notes Keesha Lopez L.P.N. - 09/07/2018 7:00 AM CDT MRO Review for [facility]. documented in this encounter Plan of Treatment Upcoming Encounters Date Type Specialty Care Team Description 01/08/2022 Appointment Radiology Julián Edouard M.D. [address] [place] [phone] (Wo rk) 01/08/2022 Ancillary Procedure Cardiovascular Disease Julián Edouard M.D. [address] [place] [phone] (Wo rk) 01/08/2022 Comprehensive Visit Thoracic Surgery Tess Raphael M.D. [address] [place] [phone] (Wo rk) documented as of this encounter Visit Diagnoses Diagnosis Drug Screen documented in this encounter Additional Health Concerns Assessment Noted Time PHQ-9 Depression Total Score: 15 04/21/2018 1:00 PM CS T documented as of this encounter
--- OUTSIDE RECORDS SUMMARY | 2022-01-08 10:42 | XMS_ITS | Encounter Summary ---
:1970 Author Organization [facility] Address [address] [place] [address] Care Team Providers Name Role Phone Unavailable Primary Care Provider Unavailable Reason for Visit Reason Comments Drug Screen [facility] Encounter Details Date Type Department Care Team Description 09/06/2018 Clinical Support Department of Ana Cristina Carballo Drug Scre en (Primary Occupational Medicine Alex Jain Dx) in [address] [phone] Social History Tobacco Use Types Packs/Day Years [...] slept in a senior care (including now)? Sex Assigned at Date Recorded Female 01/25/2018 11:49 AM CDT documented as of this encounter Progress Notes Keesha Lopez L.P.N. - 09/06/2018 2:00 PM CDT Pre employment uds completed for [facility]. Uneventful collection. documented in this encounter Plan of Treatment Upcoming Encounters Date Type Specialty Care Team Description 01/08/2022 Appointment Radiology Julián Edouard M.D. [address] [place] [phone] (Wo rk) 01/08/2022 Ancillary Procedure Cardiovascular Disease Julián Edouard M.D. [address] [place] [phone] (Wo nile) 01/08/2022 Comprehensive Visit Thoracic Surgery Tess Raphael M.D. [address] [place] [phone] (Wo rk) Scheduled Orders Name Type Priority Associated Diagnoses Order S chedule OCC Drug screening Procedures Routine Drug Screen Ordered: 09/06/2018 documented as of this encounter Visit Diagnoses Diagnosis Drug Screen - Primary documented in this encounter Additional Health Concerns Assessment Noted Time PHQ-9 Depression Total Score: 15 04/21/2018 1:00 PM CS T documented as of this encounter
--- OUTSIDE RECORDS SUMMARY | 2022-01-08 10:42 | XMS_ITS | Encounter Summary ---
:1970 Author Organization [facility] Address [address] [place] [address] Care Team Providers Name Role Phone Unavailable Primary Care Provider Unavailable Encounter Details Date Type Department Care Team Description 01/02/2019 Ancillary Procedure Department of Dermatology Social History Tobacco Use Types Packs/Day Years [...] Appointment Radiology Julián Edouard M.D. [address] [place] [phone] (Wo rk) 01/08/2022 Ancillary Procedure Cardiovascular Disease Julián Edouard M.D. [address] [place] [phone] (Wo rk) 01/08/2022 Comprehensive Visit Thoracic Surgery Tess Raphael M.D. [address] [place] [phone] (Wo rk) documented as of this encounter Procedures Procedure Name Priority Date/Time Associated Comments Diagnosis DERMATOLOGY IMAGE Routine 01/02/2019 12:00 Result s for this EXAM PM CDT procedure are i n the results section. documented in this encounter Results Back 527-Dermatology Image Exam (01/02/2019 12:00 PM CDT) Specimen (Source) Anatomical Collection Method Collection Time Re ceived Time Location / / Volume Laterality 01/02/2019 12:00 PM CDT Narrative [facility] - 01/02/2019 2:49 PM CDT This order has been created [...]
--- OUTSIDE RECORDS SUMMARY | 2022-01-08 10:42 | XMS_ITS | Encounter Summary ---
:1970 Author Organization [facility] Address [address] [place] [address] Care Team Providers Name Role Phone Elsewhere, Pcp Primary Care Provider Unavailable Reason for Referral Outpatient (Routine) - Closed Specialty Diagnoses / Procedures Referred By Contact Refer red To Contact Diagnoses Bursitis Trochanteric Right Elodia Smith M.D. [facility] Procedures Large Joint Injection: R greater troch bursa [address] [place] [phone] Referral ID Status Reason Start Date Expiration Date Visits Requ ested Visits Authorized [id number] Closed 02/01/2020 01/31/2021 1 1 Reason for Visit Outpatient (Routine) - Closed Specialty Diagnoses / Procedures Referred By Contact Refer red To Contact Diagnoses Arthritis Inflammatory (HCC) Bursitis Trochanteric Right Velma Munson APRN, [facility] Procedures RHU Non-Guided Aspiration/Injection - Large Joint C.N.P. [address] [place] [phone] Referral ID Status Reason Start Date Expiration Date Visits Requ ested Visits Authorized [id number] Closed 01/10/2020 01/09/2021 1 1 Encounter Details Date Type Department Care Team Description 02/01/2020 Procedure visit Division of Velma Munson APRN, C.N.P. [address] [place] [phone] Arthritis Inflammatory (HCC); Rheumatology in Patricia Stone M.D. [address] [place] [phone] Bursitis Trochanteric Right [place], [place] [address] [place] [phone] Social History Tobacco Use Types Packs/Day Years [...] or relatives? How often do you attend christianity or More than 4 times per year 11/16/2021 islam services? Do you belong to any clubs or No 11/16/2021 organizations such as christianity groups, unions, fraternal or athletic groups, or [...] documented as of this encounter Procedure Notes Elodia Smith M.D. - 02/01/2020 1:40 PM CDTAssociated Order(s): Large Joint Injection: R greater troch bursa Post-Procedure Diagnose(s): Bursitis Trochanteric Right Hip site - R greater troch bursa : injection only Date/Time: 02/01/2020 2:14 PM Performed by: Elodia Smith M.D. Authorized by: Elodia Smith M.D. Care team members present 1. Patricia Stone M.D. PROCEDURE DETAILS Procedure Location hip Hip site: R greater troch bursa Site prep: patient was prepped and draped in usual sterile fashion Patient position: side-lying Procedural approach: lateral Procedure performed: injection only Needle gauge: 22 G, length: 3.5 in Procedural Medication The following medications were administered at the target site(s) Local anesthetic: 2 mL lidocaine 10 mg/mL (1 %) Corticosteroid: 80 mg methylPREDNISolone acetate 40 mg/mL CONSENT Consent obtained: written UNIVERSAL PROTOCOL All relevant documentation and testing were reviewed and available. All required blood products, implants, devices and or special equipment were made available as applicable. Pre-procedure verificationwas conducted and the correct site was marked if required. A fire risk assessment was done as applicable. The procedural time-out was conducted prior to performing the procedure and confirmed in a procedural pause. PRE-PROCEDURE DETAILS Procedure purpose: therapeutic Appropriate hand hygiene, gown, cap, mask, protective eyewear, sterile gloves, skin preparation, sterile drape, and strict aseptic technique were utilized as applicable for the procedure: yes Skin preparation: chlorhexidine SEDATION / ANESTHESIA Anesthesia method: local infiltration and topical application Topical application type: aerosol cold spray (topical ethyl chloride) Local infiltrate type: lidocaine POST-PROCEDURE DETAILS Procedure completed successfully: yes Complications: no apparent complications Post-procedure instructions: avoid strenuous activity for 2 days, avoid submersion of procedure sitefor 48 hours and post-procedure activity instructions provided Discharge instructions: ice area as needed for comfort, pain management instructions, dressing care and follow-up with ordering provider documented in this encounter Plan of Treatment Upcoming Encounters Date Type Specialty Care Team Description 01/08/2022 Appointment Radiology Julián Edouard M.D. [address] [place] [phone] (Wo rk) 01/08/2022 Ancillary Procedure Cardiovascular Disease Julián Edouard M.D. [address] [place] [phone] (Wo rk) 01/08/2022 Comprehensive Visit Thoracic Surgery Tess Raphael M.D. [address] [place] [phone] (Wo rk) documented as of this encounter Procedures Procedure Name Priority Date/Time Associated Diagnosis Comme nts RHU NON-GUIDED Routine 02/01/2020 1:49 PM Arthritis ASPIRATION/INJECTIO CDT Inflammatory (HCC) N - LARGE JOINT Bursitis Trochanteric Right NE ARTHCS ASP/INJ Routine 02/01/2020 1:40 PM Bursitis Trochant ada Results for this MJR JT WO US CDT Right procedure are i n the results section. documented in this encounter Results NE ARTHCS ASP/INJ MJR JT WO US (02/01/2020 1:40 PM CDT) Narrative MMODAL - 02/01/2020 1:40 PM CDT Elodia Smith M.D. ? 02/01/2020 ??2:15 PM Hip site - R greater troch bursa : injec tion only Date/Time: 02/01/2020 2:14 PM Performed by: Elodia Smith M.D. Authorized by: Elodia Smith M.D. Care team members present 1. Patricia Stone M.D. PROCEDURE DETAILS Procedure Location hip Hip site: R greater troch bursa Site prep: patient was prepped and drape d in usual sterile fashion ?? Patient position: side-lying Procedural approach: lateral Procedure performed: injection only Needle gauge: 22 G, length: 3.5 in Procedural Medication The following medications were administe red at the target site(s) Local anesthetic: 2 mL lidocaine 10 mg/m L (1 %) Corticosteroid: 80 mg methylPREDNISolone acetate 40 mg/mL CONSENT Consent obtained: written UNIVERSAL PROTOCOL All relevant documentation and testing [...] and confirmed in a procedu ral pause. PRE-PROCEDURE DETAILS Procedure purpose: therapeutic Appropriate hand hygiene, gown, cap, mas k, protective eyewear, sterile gloves, skin preparation, sterile drape, and strict aseptic technique were utilized as applicable for the procedure : yes ?? Skin preparation: chlorhexidine SEDATION / ANESTHESIA Anesthesia method: local infiltration an d topical application Topical application type: aerosol cold s pray (topical ethyl chloride) Local infiltrate type: lidocaine POST-PROCEDURE DETAILS Procedure completed successfully: yes Complications: no apparent complications ?? Post-procedure instructions: avoid stren uous activity for 2 days, avoid submersion of procedure site for 48 hour s and post-procedure activity instructions provided Discharge instructions: ice area as need ed for comfort, pain management instructions, dressing care and follow-u p with ordering provider Elodia Smith M.D. PROCEDURE/MINOR SURGICAL ORD ERABLES Performing Organization Address City/State/ZIP Code Phon e Number MMODAL MMODAL NA documented in this encounter Visit Diagnoses Diagnosis Arthritis Inflammatory (HCC) Bursitis Trochanteric Right documented in this encounter Administered Medications Inactive Administered Medications - up to 3 most recent administrations Medication Order MAR Action Action Date Dose Rate Site lidocaine 10 mg/mL (1 %) injection 2 Given 02/01/2020 2:14 PM CD T 2 mL mL (XYLOCAINE) 2 mL, infiltration, One-Time Injection, Starting on Tue02/01/20 at 1414, For 1 dose methylPREDNISolone acetate injection 80 mg Given 02/01/2020 2:14 PM CDT 80 mg (DEPO-Medrol) 80 mg, intra-articular, One-Time Injection, Starting on Tue02/01/20 at 1414, For 1 dose documented in this encounter Additional Health Concerns Assessment Noted Time PHQ-9 Depression Total Score: 15 04/21/2018 1:00 PM CS T documented as of this encounter Care Teams Personnel Specialist Relationship Specialty Start Date End Date Elsewhere, Pcp PCP - General Internal Medicine 10/22/19 documented as of this encounter
--- OUTSIDE RECORDS SUMMARY | 2022-01-08 10:42 | XMS_ITS | Encounter Summary ---
:1970 Author Organization [facility] Address [address] [place] [address] Care Team Providers Name Role Phone Unavailable Primary Care Provider Unavailable Reason for Referral Outpatient (Routine) - Closed Specialty Diagnoses / Procedures Referred By Contact Refer red To Contact Diagnoses Arthritis Inflammatory (HCC) Bursitis Trochanteric Right Velma Munson APRN, [facility] Region Procedures Large Joint Injection C.N.P. [address] [place] [phone] Referral ID Status Reason Start Date Expiration Date Visits Requ ested Visits Authorized [id number] Closed 01/02/2019 01/02/2020 1 1 Reason for Visit Outpatient (Routine) - Closed Specialty Diagnoses / Procedures Referred By Contact Refer red To Contact Rheumatology Velma Munson APRN, [facility] C.N.P. [address] [place] [phone] Referral ID Status Reason Start Date Expiration Date Visits Requ ested Visits Authorized [id number] Closed 08/23/2018 08/23/2019 1 1 Encounter Details Date Type Department Care Team Description 01/02/2019 Office Visit Division of Velma Munson Arthritis In flammatory (HCC) (Primary Dx); Rheumatology in LOG[place] Schwartz, C.N.P. Bursitis Trochanteric Right; [place], [place] [address] [facility] High Risk Medication [address] [place] [phone] Social History Tobacco Use Types Packs/Day [...] More than 4 times per year 11/16/2021 mu-ism services? Do you belong to any clubs or No 11/16/2021 organizations such as religion groups, unions, fraternal or athletic groups, or [...] Sign Reading Time Taken Comments Blood Pressure 112/72 01/02/2019 3:05 PM CDT Pulse 79 01/02/2019 3:05 PM CDT Temperature 36.9 ??C (98.4 ??F) 01/02/2019 3:05 PM CDT Respiratory Rate - - Oxygen Saturation - - Inhaled Oxygen Concentration - - Weight 63.1 kg (139 lb 1.8 oz) 01/02/2019 3:05 PM CDT Height 157.9 cm (5' 2.17) 01/02/2019 3:05 PM CDT Body Mass Index 25.31 01/02/2019 3:05 PM CDT documented in this encounter Progress Notes Velma Munson APRN, Gerri. - 01/02/2019 3:00 PM CDT SUBJECTIVE CHIEF COMPLAINT / REASON FOR VISIT Waleska Diaz is a 48 y.o. female who presents for follow up of inflammatory arthritis. HISTORY OF PRESENT ILLNESS Ms. 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 She reports otherwise [...] but on a reevaluation later by a operating engineer the diagnosis of mixed connective tissue disease on the basis of laboratory investigations. She was started on treatment with methotrexate, prednisone, and Plaquenil and veronica ined on that initially for about five years and then went off it because she was doing relatively well. About two years ago, she resumed on it because [...] decided to discontinue it. Today, I am following up with Ms. Diaz for inflammatory arthritis with possible mixed connectivetissue disease. Now her right hip is painful in her left hip is better. The right hip will wake her up in the night due to pain and she has a side sleeper and feels better with movement. She does have melasma. She states right now she has been doing more GI issues, with umbilical abdominal pain. She will have diarrhea with dairy products. She also notices when she eats gluten she will get pain in herabdomen. She also endorses acid reflux and vomiting symptoms. She will be seeing her primary care provider for this tomorrow. She continues to have hair loss. She states that she continues have Raynaud's in her hands and feet with no ulcerations. Currently she is taking Cardura. She has changed her diet and eliminated soda, night shades, gluten, and dairy. Since changing her diet she has noticed his joint symptoms have improved. She is worried about her daughter as she now being worked up for an autoimmune disease. She continues take Plaquenil 200 mg on odd days and 400 mg on even days. She denies any recent infections or hospitalizations. She denies any adverse side effects to Plaquenil. Rheumatoid Arthritis RF +: No CCP +: No AM stiffness: 40 minutes Current Symptoms: diarrhea (IBS), dry eyes, dry mouth, fatigue (stable), Raynaud's syndrome (no digital ulcers), nausea (IBS ), vomiting, abdominal pain (umbicial pain) and heartburn (maybe just started a antiacid) Current Symptoms: no fever, no rash [...] of present illness. Constitutional: Positive for fatigue (stable) and loss of appetite. Negative for chills, fever, night sweats, weight gain of more than 10 pounds and weight loss. Skin: Positive for change in mole or skin spot. Negative for skin rash (itching on the arms and face) and breast lump. Eyes: Positive for visual problems (worsening). Respiratory: Negative for cough. Cardiovascular: Positive for swelling in the legs or feet. Negative for chest pain, pressure or tightness and pain in the calf muscles when walking. Gastrointestinal: Positive for abdominal (belly) pain or cramping (umbicial pain), constipation (IBS), diarrhea (IBS), heartburn (maybe just started a antiacid), nausea (IBS ) and vomiting. Negative for anorexia. Musculoskeletal: Positive for arthralgias, back pain (low back), pain or stiffness in the joints, joint swelling (hands and feet) and muscle pain/stiffness (Knees and hands). Neurological: Positive for seizures (stable) and headaches (right temporal injury- but more manageable ). Negative for light-headedness (better since stopping Amitrpyline). Psychiatric/Behavioral: Positive for little interest or pleasure in doing things over past two weeksand feeling nervous, anxious, or on edge in past two weeks. The following systems were negative: Respiratory, , Hematologic OBJECTIVE PHYSICAL EXAM Physical Exam General: alert, oriented, appropriate affect, no apparent distress. Skin: [...] hips are within functional limits bilaterally. Right lateral hip is tender. Lab: CBC with differential, creatinine, GFR, and AST all within normal limits. CRP and ESR are normal. Disease Activity Tenderness RLE: hip Swelling RLE: hip Tender joint count (0-28): 0 Swollen joint count (0-28): 0 ESR (mm/hr): 3 CRP (mg/L): 3 Health Assessment Questionnaire II (SHIN-II) Score 0-3: 0.1 Pain, 0-100: 30 Patient Global Assessment of Disease Activity, 0-100: 20 Provider Global Assessment, 0-100: 30 Composite Disease Activity Scores Disease Activity Score (KOHLER) 28-CRP(4): 1.74 Disease Activity Score (KOHLER) 28-ESR(4): 1.05 Simplified Disease Activity Index (SDAI): 5.3 Clinical Disease Activity Index (CDAI): 5 ASSESSMENT / PLAN #1 Arthritis Inflammatory (HCC) Minimial synovitis noted on exam today. We will continue Plaquenil to 400 mg on even days and 200 mgon odd days. Patient was in agreement with this plan. #2 Right hip pain I have ordered a corticosteroid injection to be done in [place] into her right trochanteric bursa. #3 High Risk Medication She had her Plaquenil eye screening done by [facility] professionals. I do not have these records. I will have my school secretary contact them for the results. I will follow up with her in 3 months. I answered the patients questions to the best of my ability. The patient seemed pleased with our interaction. If she should have any additional questions or concerns. I have asked that she contact us at that time. ADDENDUM Plaquenil eye screening was done on a August 11, 2018. No toxicity noted. documented in this encounter Plan of Treatment Upcoming Encounters Date Type Specialty Care Team Description 01/08/2022 Appointment Radiology Julián Edouard M.D. [address] [place] [address] (Wo rk) 01/08/2022 Ancillary Procedure Cardiovascular Disease Julián Edouard M.D. [address] [place] [phone] (Wo rk) 01/08/2022 Comprehensive Visit Thoracic Surgery Tess Raphael M.D. [address] [place] [phone] (Wo rk) Scheduled Orders Name Type Priority Associated Diagnoses Order S chedule Large Joint Injection Procedures Routine Arthritis Inflammat ory Expected: 01/02/2019 (HCC) (Approximate), Bursitis Trochanteric s: 01/02/2022 Right documented as of this encounter Visit Diagnoses Diagnosis Arthritis Inflammatory (HCC) - Primary Bursitis Trochanteric Right High Risk Medication documented in this encounter Additional Health Concerns Assessment Noted Time PHQ-9 Depression Total Score: 15 04/21/2018 1:00 PM CS T documented as of this encounter
--- OUTSIDE RECORDS SUMMARY | 2022-01-08 10:42 | XMS_ITS | Encounter Summary ---
:1970 Author Organization [facility] Address [address] [place] [address] Care Team Providers Name Role Phone Elsewhere, Pcp Primary Care Provider Unavailable Encounter Details Date Type Department Care Team Description 10/25/2019 Orders Only Department of Family Employer Based, [facility] Covid Serology Screeni ng For Other Clinic, in [place], Testing Viral D [facility] (COVID-19) (Primary [address]) [place] [address] Social History Tobacco Use Types Packs/Day Years [...] or relatives? How often do you attend uatsdin or More than 4 times per year 11/16/2021 advent services? Do you belong to any clubs or No 11/16/2021 organizations such as uatsdin groups, unions, fraternal or athletic groups, or [...] Appointment Radiology Julián Edouard M.D. [address] [place] [address] (Wo rk) 01/08/2022 Ancillary Procedure Cardiovascular Disease Julián Edouard M.D. [address] [place] [phone] (Wo rk) 01/08/2022 Comprehensive Visit Thoracic Surgery Tess Raphael M.D. [address] [place] [phone] (Wo rk) documented as of this encounter Results SARS-CoV-2 Total Antibody, Serum (10/26/2019 9:43 AM CDT) [facility] Method Time Signature SARS-CoV-2 Negative Negative 10/26/2019 [...] was performed using the [employer] [id number] Reagent assay from [employer], which has received Emergency Use Authori zation(EUA) by the U.S. Food and Drug Administration . Fact sheets for this Emergency Use Autho rization (EUA) assay can be found at the following link s: For Healthcare Providers: https://www.fda.gov/media/748029/downloa d For Patients: https://www.fda.gov/media/036991/downloa d Specimen Anatomical Collection Method Collection Time Receive d Time (Source) Location / / Volume Laterality Blood (Blood, 10/26/2019 9:43 AM 10/26/19 20 2:40 Venous) CDT PM CDT Covid Serology Testing Employer Based LAB MICROBIOLOGY - BLOOD ORDERABLES Performing Organization Address City/State/ZIP Code Phon e Number [facility]- [address] [place] [address] [place] [address] [place] [address] [address] documented in this encounter Visit Diagnoses Diagnosis Encounter For Screening For Other Viral Diseases (COVID-19) - Primary documented in this encounter Additional Health Concerns Assessment Noted Time PHQ-9 Depression Total Score: 15 04/21/2018 1:00 PM CS T documented as of this encounter Care Teams Member Of [employer] Legislative [employer] Relationship Specialty Start Date End Date Elsewhere, Pcp PCP - General Internal Medicine 10/22/19 documented as of this encounter
--- OUTSIDE RECORDS SUMMARY | 2022-01-08 10:42 | XMS_ITS | Encounter Summary ---
:1970 Author Organization [facility] Address [address] [place] [address] Care Team Providers Name Role Phone Unavailable Primary Care Provider Unavailable Encounter Details Date Type Department Care Team Description 01/02/2019 Hospital Encounter Department of Velma Munson Laboratory Medicine L, BRACELET FORMER, C.N .P. Inflammatory (HCC) and Pathology, [address] [place] [address] [facility] [phone] [place] [phone] [place] [address] (Work) [place], [place] [phone] [address] (Fax) [phone] Social History Tobacco Use Types Packs/Day Years [...] once again after 1h if no effect. doxazosin (CARDURA) 1 mg Take 1 tablet (1 mg 90 tablet 3 08/12/2019 tablet total) by mouth at bedtime. cetirizine (ZyrTEC) 10 mg Take 10 mg by mouth 0 04/30/2020 tablet daily as needed for allergies (allergy triggers--animal dander/dust/cotton) . DULoxetine (CYMBALTA) 20 Take 1 capsule (20 90 capsule 1 07/17/[address] capsule mg total) by mouth at bedtime. fluticasone (FLONASE) 50 Administer 1 spray 0 04/30/2020 mcg/actuation nasal spray into affected nostril(s) as needed. hydroxychloroquine Take 1-2 tablets 135 tablet 1 01/02/2019 08/14/2019 (PLAQUENIL) 200 mg tablet (200-400 mg total) by mouth as directed. Take 2 tablets daily on even days and 1 tablet daily on odd days. levonorgestrel (MIRENA) 1 Device by 0 06/30/2015 [...] Appointment Radiology Julián Edouard M.D. [address] [place] [phone] (Earl dowd) 01/08/2022 Ancillary Procedure Cardiovascular Disease Julián Edouard M.D. [address] [place] [phone] (Earl dowd) 01/08/2022 Comprehensive Visit Thoracic Surgery Tess Raphael M.D. [address] [place] [phone] (Earl dowd) documented as of this encounter Procedures Procedure Name Priority Date/Time Associated Comments Diagnosis SEDIMENTATION RATE, B Routine 01/02/2019 9:45 Arthritis Res ults for this AM CDT Inflammatory (HCC) procedure are in the results section. CBC WITH DIFFERENTIAL, B Routine 01/02/2019 9:45 Arthritis Results for this AM CDT Inflammatory (HCC) procedure are in the results section. C-REACTIVE PROTEIN Routine 01/02/2019 9:45 Arthritis Result s for this (CRP), S/P AM CDT Inflammatory (HCC) procedure are in the results section. ASPARTATE Routine 01/02/2019 9:45 Arthritis Results for this AMINOTRANSFERASE (AST), AM CDT Inflammatory (HCC ) procedure are in S/P the results section. CREATININE WITH EGFR, Routine 01/02/2019 9:45 Arthritis Res ults for this S/P AM CDT Inflammatory (HCC) procedure are in the results section. documented in this encounter Results AST (Aspartate Aminotransferase) (01/02/2019 9:45 AM CDT) [facility] gist Method Time Signature Aspartate 17 8 - 43 01/02/2019 Aminotransferase U/L 12:22 PM CDT (AST), S Specimen Anatomical Collection Method Collection Time Receive d Time (Source) Location / / Volume Laterality Blood (Blood, 01/02/2019 9:45 AM 01/03/20 19 Venous) CDT 10:06 AM CDT Jorge Polo APRNNLennoxP. LAB BLOOD ADD-ON Performing Organization Address City/State/ZIP Code Phon e Number [facility] - [address] [place], [place] [address] [facility] Creatinine with Estimated GFR (01/02/2019 9:45 AM CDT) P athologist Signature Creatinine 0.83 0.59 - 01/02/2019 1.04 mg/dL 12:22 PM CDT eGFR-Non 84 >=60 01/02/2019 Black/ mL/min/BSA 12:[address] [facility] Comment: ----ADDITIONAL INFORMATION---- Estimated GFR calculated using the 2009 CKD_EPI creatinine equation. eGFR-Black/ >90 >=60 mL/min/BSA 2018 12:22 PM CDT Comment: ----ADDITIONAL INFORMATION---- Estimated GFR calculated using the 2009 CKD_EPI creatinine equation. Specimen Anatomical Collection Method Collection Time Receive d Time (Source) Location / / Volume Laterality Blood (Blood, 01/02/2019 9:45 AM 01/03/20 Venous) CDT 10:06 AM CDT Jorge Polo APRNN.P. LAB BLOOD ADD-ON Performing Organization Address [facility] Code Phon e Number [facility] - [address] [place] [address] [facility] CRP (C-Reactive Protein) (01/02/2019 9:45 AM CDT) P athologist Signature C-Reactive <3.0 <=8.0 mg/L 01/02/2019 Protein (CRP), 12:22 PM CDT S Specimen Anatomical Collection Method Collection Time Receive d Time (Source) Location / / Volume Laterality Blood (Blood, 01/02/2019 9:45 AM 01/03/20 Venous) CDT 10:06 AM CDT Karlene Polo APRN.N.P. LAB BLOOD ADD-ON Performing Organization Address [facility] Phon e Number [facility] - [address] [place] [address] [facility] Sedimentation Rate (01/02/2019 9:45 AM CDT) Analysis Performed At Patho logist Time Signature Sedimentation 1 0 - 29 01/02/2019 Rate, B mm/1 h 11:18 AM CDT Specimen Anatomical Collection Method Collection Time Receive d Time (Source) Location / / Volume Laterality Blood (Blood, 01/02/2019 9:45 AM 01/03/20 Venous) CDT 10:06 AM CDT Karlene Polo APRN.N.P. LAB BLOOD ADD-ON Performing Organization Address City/[facility] Phon e Number [facility] - [address] [place] [address] [facility] CBC with Differential, Blood (01/02/2019 9:45 AM CDT) P athologist Signature Hemoglobin 13.3 11.6 - 01/02/2019 15.0 g/dL 10:11 AM CDT Hematocrit 41.2 35.5 - 01/02/2019 44.9 % 10:11 AM CDT Erythrocytes 4.66 3.92 - 01/02/2019 5.13 10:11 AM CDT x10(12)/L MCV 88.4 78.2 - 01/02/2019 97.9 fL 10:11 AM CDT RBC Distrib Width 14.5 12.2 - 01/02/2019 16.1 % 10:11 AM CDT Platelet Count 216 157 - 371 01/02/2019 x10(9)/L 10:11 AM CDT Leukocytes 8.2 3.4 - 9.6 01/02/2019 x10(9)/L 10:11 AM CDT Neutrophils 5.94 1.56 - 01/02/2019 6.45 10:11 AM CDT x10(9)/L Lymphocytes 1.72 0.95 - 01/02/2019 3.07 10:11 AM CDT x10(9)/L Monocytes 0.47 0.26 - 01/02/2019 0.81 10:11 AM CDT x10(9)/L Eosinophils 0.05 0.03 - 01/02/2019 0.48 10:11 AM CDT x10(9)/L Basophils 0.03 0.01 - 01/02/2019 0.08 10:11 AM CDT x10(9)/L Specimen Anatomical Collection Method Collection Time Receive d Time (Source) Location / / Volume Laterality Blood (Blood, 01/02/2019 9:45 AM 01/03/20 19 Venous) CDT 10:06 AM CDT Velma Munson APRN C.N.P. LAB BLOOD ADD-ON Performing Organization Address City/State/ZIP Code Phon e Number [facility] - [address] [place], [place] [address] [facility] documented in this encounter Visit Diagnoses Diagnosis Arthritis Inflammatory (HCC) documented in this encounter Additional Health Concerns Assessment Noted Time PHQ-9 Depression Total Score: 15 04/21/2018 1:00 PM CS T documented as of this encounter
--- OUTSIDE RECORDS SUMMARY | 2022-01-08 10:42 | XMS_ITS | Encounter Summary ---
:1970 Author Organization [facility] Address [address] [place] [address] Care Team Providers Name Role Phone Unavailable Primary Care Provider Unavailable Reason for Visit Reason Comments P2: medication and hip pain Encounter Details Date Type Department Care Team Description 07/25/2019 Clinical Division of Velma Munson P2: medicati on and Communication Rheumatology in L, TECHNOLOGY TRAINING ASSOCIATE, C.N.P. hip pain [place], [place] [address] [facility] [address] [place] [phone] Social History Tobacco Use Types Packs/Day Years [...] or relatives? How often do you attend alevism or More than 4 times per year 11/16/2021 catholic services? Do you belong to any clubs or No 11/16/2021 organizations such as alevism groups, unions, fraternal or athletic groups, or [...] Telephone Encounter - Irene Andujar R.N. - 07/25/2019 11:22 AM CDT Information Discussed Spoke with patient and answered her questions about Plaquenil and the Covid-19 concerns. PLAN Disposition/Recommendation: recommended continue engagement in self-management activities Information/Education: patient/caller able to teach back Caller agreeable to plan of care: yes The following references were used: nursing clinical judgment Telephone Encounter - Tamica Kramer - 07/25/2019 9:12 AM CDT The patient is calling regarding her Plaquenil. Her spouse had the flu a little while ago and she did not get the flu. She is now thinking she is on Plaquenil and that is why she did not get the flu. She has many, many questions about the Plaquenil and about COVID-19. She is also wanting to talk with someone about continued hip pain. Provider: Velma Munson CNP Please contact the patient at: [phone] documented in this encounter Plan of Treatment Upcoming Encounters Date Type Specialty Care Team Description 01/08/2022 Appointment Radiology Julián Edouard M.D. [address] [place] [phone] (Wo rk) 01/08/2022 Ancillary Procedure Cardiovascular Disease Julián Edouard M.D. [address] [place] [phone] (Wo rk) 01/08/2022 Comprehensive Visit Thoracic Surgery Tess Raphael M.D. [address] [place] [phone] (Wo rk) documented as of this encounter Visit Diagnoses Not on filedocumented in this encounter Additional Health Concerns Assessment Noted Time PHQ-9 Depression Total Score: 15 04/21/2018 1:00 PM CS T documented as of this encounter
--- OUTSIDE RECORDS SUMMARY | 2022-01-08 10:42 | XMS_ITS | Encounter Summary ---
:1970 Author Organization [facility] Address [address] [place] [address] Care Team Providers Name Role Phone Elsewhere, Pcp Primary Care Provider Unavailable Reason for Referral Outpatient (Routine) - Closed Specialty Diagnoses / Procedures Referred By Contact Refer red To Contact Rheumatology [facility] C.N.P[facility] [address] [place] [address] Referral ID Status Reason Start Date Expiration Date Visits Requ ested Visits Authorized [id number] Closed 01/10/2020 01/09/2021 1 1 utpatient (Routine) - Closed Specialty Diagnoses / Procedures Referred By Contact Refer red To Contact Diagnoses Arthritis Inflammatory (HCC) Bursitis Trochanteric Right [facility] Procedures RHU Non-Guided Aspiration/Injection - Large Joint C.N.P. [address] [place], [place] [address] Referral ID Status Reason Start Date Expiration Date Visits Requ ested Visits Authorized [id number] Closed 01/10/2020 01/09/2021 1 1 Reason for Visit Appointment Request (Routine) - Closed Specialty Diagnoses / Procedures Referred By Contact Refer red To Contact Rheumatology Diagnoses Arthritis Rheumatoid (HCC) Referral ID Status Reason Start Date Expiration Date Visits Requ ested Visits Authorized [id number] Closed 12/14/2019 12/13/2020 1 1 Encounter Details Date Type Department Care Team Description 01/10/2020 Telemedicine Division of Velma Munson Arthritis In flammatory (HCC) (Primary Dx); Rheumatology in [place], JorgeNLennoxP. Bursitis Trochanteric Right; [place], [place] [address] [facility] High Risk Medication [address] [place] [phone] Social History Tobacco Use Types Packs/Day Years [...] or relatives? How often do you attend yazidism or More than 4 times per year 11/16/2021 mandaen services? Do you belong to any clubs or No 11/16/2021 organizations such as yazidism groups, unions, fraternal or athletic groups, or [...] as of this encounter Progress Notes Velma Munson APRN, C.N.P. - 01/10/2020 11:15 AM CDT SUBJECTIVE CHIEF COMPLAINT / REASON FOR VISIT Waleska Diaz is a 49 y.o. female who presents for follow up of inflammatory arthritis. Follow-up visit conducted via real-time audio/video technology by Velma Munson APRN, C.N.P. in [facility] to the patient at home. HISTORY OF PRESENT ILLNESS Ms. Diaz is a 48-year-old female inflammatory arthritis with mixed connective tissue [...] but on a reevaluation later by a machine fastener the diagnosis of mixed connective tissue disease [...] I am following up with Ms. Diaz by video for inflammatory arthritis with mixed connectivetissue disease. She states that for the last several months she has had increased fatigue, joint achiness, hair loss, and her nails are splitting. Right now her hands, wrists, feet, and right hip are painful. She states she did have her Mirena taken out to try to help with the melasma. She did have sinus surgery done in the last month and she is starting to be able to smell again. She is also dealingwith more flare ups of her interstitial cystitis and has had multiple UTIs. She also endorses increased leg cramps with more activity. She states that she continues have Raynaud's in her hands and feetwith no ulcerations. Currently she is taking Cardura. She continues take Plaquenil 200 mg on [...] visual problems (worsening). ENT: Positive for difficulty hearing. Respiratory: Negative for cough. Cardiovascular: Positive for [...] light-headedness. Psychiatric/Behavioral: Positive for excessive daytime sleepiness/tiredness, little interest or pleasure in doing things over past two weeks and feeling nervous, anxious, or on edge in past two weeks. The following systems were negative: Respiratory, , Hematologic OBJECTIVE PHYSICAL EXAM Physical Exam General: alert, oriented, appropriate affect, no apparent distress. No assessment done due to being a video visit. Lab: CBC with differential, creatinine, GFR, and AST all within normal limits. CRP is 3.8. ESR is normal. Disease Activity Tender joint count (0-28): 0 Swollen joint count (0-28): 0 ESR (mm/hr): 3 CRP (mg/L): 4 Provider Global Assessment, 0-100: 40 ASSESSMENT / PLAN #1 Arthritis Inflammatory (HCC) After our discussion over video today I believe she is in a flare. I would like her to a prednisone burst and taper of 30 mg daily for 3 days, then 20 mg daily for 3 days, then 15 mg daily for 3 days, then 10 mg daily for 3 days, then off. She will continue Plaquenil to 400 mg on even days and 200 mg on odd days. If her joint symptoms and fatigue return after the prednisone burst and taper then we will restart her on methotrexate. Patient was in agreement with this plan. #2 Right hip pain I have ordered a corticosteroid injection to be done in [place] into her right trochanteric bursa. #3 High Risk Medication Last Plaquenil eye exam was August 11, 2018. No eye toxicity noted. She is due now. I have ordered a Plaquenil eye exam to be done in [place]. I will plan to touch base with her in 1 month by portal. I will follow up with her in 3 months. I answered the patients questions to the best of my ability. The patient seemed pleased with our interaction. If she should have any additional questions or concerns. I have asked that she contact us at that time. I spent 30 min speaking with patient by video. >50% was spent in counseling. documented in this encounter Plan of Treatment Upcoming Encounters Date Type Specialty Care Team Description 01/08/2022 Appointment Radiology Julián Edouard M.D. [address] [place] [phone] (Wo rk) 01/08/2022 Ancillary Procedure Cardiovascular Disease Julián Edouard M.D. [address] [place] [phone] (Wo rk) 01/08/2022 Comprehensive Visit Thoracic Surgery Tess Raphael M.D. [address] [place] [address] (Earl rk) Scheduled Referrals Name Type Priority Associated Order Schedule Diagnoses Rheumatology office Outpatient Referral Routine E xpected: visit (clinic) 04/10/2020 (Approximate), Expires: 01/09/2023 documented as of this encounter Results AST (Aspartate Aminotransferase) (05/21/2020 7:43 AM AERIAL GUNNER SUPERINTENDENT) Patholo gist Method Time Signature Aspartate 22 8 - 43 05/21/2020 CNFL Aminotransferase U/L 8:04 AM AERIAL GUNNER SUPERINTENDENT (AST), P Specimen Anatomical Collection Method Collection Time Receive d Time (Source) Location / / Volume Laterality Blood (Blood, 05/21/2020 7:43 AM 05/21/19 7:44 Venous) AERIAL GUNNER SUPERINTENDENT AM AERIAL GUNNER SUPERINTENDENT Velma Munson APRN C.N.PLennox LAB BLOOD ADD-ON Performing Organization Address City/State/ZIP Code Phon e Number [facility]- [address] [place] [address] [place] [address] [place] [address] System in [place] [address] Bl Creatinine with Estimated GFR (05/21/2020 7:43 AM AERIAL GUNNER SUPERINTENDENT) P athologist Signature Creatinine 0.78 0.59 - 05/21/2020 [facility] 1.04 mg/dL 8:04 AM AERIAL GUNNER SUPERINTENDENT eGFR-Black/Afric >90 >=60 05/21/2020 [facility] an Maldivian mL/min/BSA 8:04 AM AERIAL GUNNER SUPERINTENDENT Comment: ----ADDITIONAL INFORMATION---- Estimated GFR calculated using the 2009 CKD_EPI creatinine equation. eGFR Non-Black/ >90 >=60 mL/min/BSA 05/21/2020 8:04 AM AERIAL GUNNER SUPERINTENDENT CNFL Comment: ----ADDITIONAL INFORMATION---- Estimated GFR calculated using the 2009 CKD_EPI creatinine equation. Specimen Anatomical Collection Method Collection Time Receive d Time (Source) Location / / Volume Laterality Blood (Blood, 05/21/2020 7:43 AM 05/21/19 7:44 Venous) AERIAL GUNNER SUPERINTENDENT AM AERIAL GUNNER SUPERINTENDENT Velma Munson APRN, C.N.P. LAB BLOOD ADD-ON Performing Organization Address [facility] Phon e Number [phone] [place] [address] [place] [address] [address] [place] [address] [address] CRP (C-Reactive Protein) (05/21/2020 7:43 AM AERIAL GUNNER SUPERINTENDENT) P athologist Signature C-Reactive 3.3 <=8.0 mg/L 05/21/2020 [facility] Protein (CRP), 8:04 AM AERIAL GUNNER SUPERINTENDENT P Specimen Anatomical Collection Method Collection Time Receive d Time (Source) Location / / Volume Laterality Blood (Blood, 05/21/2020 7:43 AM 05/21/19 7:44 Venous) AERIAL GUNNER SUPERINTENDENT AM AERIAL GUNNER SUPERINTENDENT Velma Munson APRN, C.N.P. LAB BLOOD ADD-ON Performing Organization Address City/State/[facility] Code Phon e Number [address] [address] [place] [address] System in [place] [address] [address] Sedimentation Rate (05/21/2020 7:43 AM AERIAL GUNNER SUPERINTENDENT) Analysis Performed At Patho logist Time Signature Sedimentation 10 0 - 29 05/21/2020 [facility] Rate, B mm/1 h 8:32 AM AERIAL GUNNER SUPERINTENDENT Specimen Anatomical Collection Method Collection Time Receive d Time (Source) Location / / Volume Laterality Blood (Blood, 05/21/2020 7:43 AM 05/21/19 7:44 Venous) AERIAL GUNNER SUPERINTENDENT AM AERIAL GUNNER SUPERINTENDENT Velma Munson APRN, C.N.P. LAB BLOOD ADD-ON Performing Organization Address City/State/ZIP Code Phon e Number [facility]- [address] [place] [address] [place] [address] System [address] CBC with Differential, Blood (05/21/2020 7:43 AM AERIAL GUNNER SUPERINTENDENT) P athologist Signature Hemoglobin 14.3 11.6 - 05/21/2020 [facility] 15.0 g/dL 7:51 AM AERIAL GUNNER SUPERINTENDENT Hematocrit 43.6 35.5 - 05/21/2020 CN[facility] 44.9 % 7:51 AM AERIAL GUNNER SUPERINTENDENT Erythrocytes 5.09 3.92 - 05/21/2020 CN[facility] 5.13 7:51 AM AERIAL GUNNER SUPERINTENDENT x10(12)/L MCV 85.7 78.2 - 05/21/2020 [facility] 97.9 fL 7:51 AM AERIAL GUNNER SUPERINTENDENT RBC Distrib Width 13.4 12.2 - 05/21/2020 CN[facility] 16.1 % 7:51 AM AERIAL GUNNER SUPERINTENDENT Platelet Count 275 157 - 371 05/21/2020 [facility] x10(9)/L 7:51 AM AERIAL GUNNER SUPERINTENDENT Leukocytes 8.2 3.4 - 9.6 05/21/2020 CN[facility] x10(9)/L 7:51 AM AERIAL GUNNER SUPERINTENDENT Neutrophils 5.79 1.56 - 05/21/2020 CN[facility] 6.45 7:51 AM AERIAL GUNNER SUPERINTENDENT x10(9)/L Lymphocytes 1.81 0.95 - 05/21/2020 CNFL 3.07 7:51 AM AERIAL GUNNER SUPERINTENDENT x10(9)/L Monocytes 0.48 0.26 - 05/21/2020 CNFL 0.81 7:51 AM AERIAL GUNNER SUPERINTENDENT x10(9)/L Eosinophils 0.10 0.03 - 05/21/2020 CNFL 0.48 7:51 AM AERIAL GUNNER SUPERINTENDENT x10(9)/L Basophils 0.04 0.01 - 05/21/2020 CNFL 0.08 7:51 AM AERIAL GUNNER SUPERINTENDENT x10(9)/L Specimen Anatomical Collection Method Collection Time Receive d Time (Source) Location / / Volume Laterality Blood (Blood, 05/21/2020 7:43 AM 05/21/19 7:44 Venous) AERIAL GUNNER SUPERINTENDENT AM AERIAL GUNNER SUPERINTENDENT Jorge Polo APRNNLennoxPLennox LAB BLOOD ADD-ON Performing Organization Address City/State/ZIP Code Phon e Number [facility]- [address] [place] [phone] [place] [address] [place] [address] [address] documented in this encounter Visit Diagnoses Diagnosis Arthritis Inflammatory (HCC) - Primary Bursitis Trochanteric Right High Risk Medication documented in this encounter Additional Health Concerns Assessment Noted Time PHQ-9 Depression Total Score: 15 04/21/2018 1:00 PM CS T documented as of this encounter Care Teams Physical Therapy Aid Relationship Specialty Start Date End Date Elsewhere, Pcp PCP - General Internal Medicine 10/22/19 documented as of this encounter
--- OUTSIDE RECORDS SUMMARY | 2022-01-08 10:42 | XMS_ITS | Encounter Summary ---
:1970 Author Organization [facility] Address [address] [place] [address] Care Team Providers Name Role Phone Unavailable Primary Care Provider Unavailable Reason for Referral Outpatient (Routine) - Closed Specialty Diagnoses / Procedures Referred By Contact Refer red To Contact Dermatology Dayana Sweeney M. D. [facility] [address] [place] [phone] Referral ID Status Reason Start Date Expiration Date Visits Requ ested Visits Authorized [id number] Closed 09/05/2018 09/05/2019 1 1 Encounter Details Date Type Department Care Team Description 08/29/2018 Clinical Support Department of Dayana Sweeney (Primary Dx); Dermatology césar Gonzales M.D. Hyperpigmentation; [place], [place] [address] [facility] Dermatitis Contact [address] [place] [phone] Social History Tobacco Use Types Packs/Day Years [...] or slept in a half-way (including now)? Sex Assigned at Date Recorded Female 01/25/2018 11:49 AM CDT documented as of this encounter Consult Notes Phylicia Broussard M.D. - 08/29/2018 1:20 PM CDT Supervised by: Dayana Cosme M.D. Correspondence to Dayana Cosme M.D. Patient seen and discussed with supervising apartment leasing consultant,who evaluated the patient and concurs with the assessment and plan. CHIEF COMPLAINT / REASON FOR VISIT Patch testing day 5 HISTORY OF PRESENT ILLNESS Ms. Waleska Diaz is a 47 y.o. female who presents today for follow up for patch testing day5. She was last seen in dermatology on 06/14/[address] Sweeney for facial hyperpigmentation with a broad differential. A biopsy was performed and showed increased basal keratinocyte melanin pigment and superficial dermal melanin deposits concerning for post inflammatory hyperpigmentation or melasma. DIF was negative. MED and patch testing was recommended due to concern for role of contact dermatitisand photosensitivity with results as follows. Positive patch test results (standard + extended standard): -8-clkr-Tiwtxtspwoh formaldehyde resin 1% (2) -Benzalkonium chloride (2) -Methlisothiazolinone (1) -Hydroperoxides of Linalool (2) -Dodecyl gallate (1) -MED dosing with positive reaction to UVA at 15 J Allergies Allergen Reactions ??? Pecan Nut Swelling, Edema and Angioedema ??? Adhesive Tape-Silicones Rash ??? Hydrocodone-Acetaminophen Other (see comments), Itching and Nausea Only Per MICS, reaction unknown ??? Iodine Other (see comments) and Shortness of breath fainting PHYSICAL EXAM General: Well appearing and in no acute distress. Psych: Pleasant. Appropriate mood and affect Skin: Focused exam was performed of the face, back, and thighs. Exam is notable for Rodriguez typeIV skin. Prominent hyperpigmented patches involving the face. Mild hyperpigmented patch involving the right anterior thigh at the site of prior UVA MED dosing. Several circular dermatitic plaques on the back at the site of prior patch testing. ASSESSMENT / PLAN #Patch testing with positive reactions to 9-grht-Bydxkpptnys formaldehyde resin, Benzalkonium chloride, Methlisothiazolinone, Hydroperoxides of Linalool, Dodecyl gallate #MED dosing with positive reaction to UVA at 15 J #Extensive hyperpigmented patches on face with concern for role of post inflammatory hyperpigmentation, melasma, vs drug-induced hyperpigmentation Dr. Sweeney plans to review her facial biopsy with our dermatopathologists for further assistance indifferentiating post inflammatory hyperpigmentation changes (with possible role of photosensitivity)from medication related dyspigmentation (secondary to hydroxychloroquine). Discussed her patch testing in detail. Recommend avoidance of products containing these agents and diligent use of her SkinSafe account. Continue diligent sun protection. #Dermatitis of the back after patch testing She has several areas of persistent dermatitis on her back. She has a wedding in 1.5 weeks and wouldlike them clear. Prescribed triamcinolone 0.1% ointment to be used twice per day for 1-2 weeks or sooner if cleared. Directions given. The patient expresses understanding and is in agreement with the plan. All questions answered. It was a pleasure seeing Ms. Waleska Diaz today. PATIENT EDUCATION Ready to learn. No apparent learning barriers were identified. Learning preferences include listening. Explained diagnosis and treatment plan; patient/guardian of patient expressed understanding of thecontent. Phylicia Broussard M.D. Associated attestation - Patel Dayana Gonzales M.D. - 09/05/2018 9:32 AM CDT I saw and evaluated the patient, participating in the melgoza portions of the service. I reviewed the resident/fellow???s note. I agree with the resident/fellow???s findings and plan. Addendum 09/05/18: Called patient to follow up. I have discussed her case with several colleagues, including discussingher pathology with Dr. Medina. Dr. Medina reports that there were not findings consistent withhydroxychloroquine-induced pigmentation on her biopsy. He suspects melasma, and I discussed with who agrees. The patient is not photosensitive given that she was only positive on MED testing at high levels of UVA (15J). The patient has a Mirena IUD, so does have some exogenous hormone. The Mirena IUD has been incredibly helpful for her menstrual symptoms, so I would not recommend removing it. I recommend very diligentsun protection, including a daily sunscreen for her face that is at least SPF 30 and broad spectrum.The patient will look at her SkinSAFE account to choose an appropriate sunscreen - consider Ella SHIRLEY UV daily if it is on her safe list. I also discussed additional interventions with Dr. Greene, and sherecommended a compound did cream of 12% hydroquinone with kojic acid and vitamin-C. I will request this through the [facility]. Advised use twice daily, follow-up in 2-3 months. documented in this encounter Plan of Treatment Upcoming Encounters Date Type Specialty Care Team Description 01/08/2022 Appointment Radiology Julián Edouard M.D. [address] [place] [phone] (Earl dowd) 01/08/2022 Ancillary Procedure Cardiovascular Disease Julián Edouard M.D. [address] [place] [phone] (Earl dowd) 01/08/2022 Comprehensive Visit Thoracic Surgery Tess Raphael M.D. [address] [place] [address] (Wo rk) Scheduled Referrals Name Type Priority Associated Order Schedule Diagnoses Dermatology office Outpatient Referral Routine Ex pected: visit (clinic) 12/06/2018 (Approximate), Expires: 09/05/2021 documented as of this encounter Visit Diagnoses Diagnosis Melasma - Primary Hyperpigmentation Dermatitis Contact documented in this encounter Additional Health Concerns Assessment Noted Time PHQ-9 Depression Total Score: 15 04/21/2018 1:00 PM CS T documented as of this encounter
--- OUTSIDE RECORDS SUMMARY | 2022-01-08 10:42 | XMS_ITS | Encounter Summary ---
:1970 Author Organization [facility] Address [address] [place] [address] Care Team Providers Name Role Phone Elsewhere, Pcp Primary Care Provider Unavailable Reason for Visit Reason Comments Med Refill Encounter Details Date Type Department Care Team Description 11/16/2019 Refill Division of Rheumatology in Smita Munson sa, APRN, Med Refill [place], [place] C.N.P. [address] [facility] [address] [place] [phone] [place] [address] [phone] (Wo rk) Social History Tobacco Use Types [...] More than 4 times per year 11/16/2021 pentecostal services? Do you belong to any clubs [...] this encounter Miscellaneous Notes Telephone Encounter - Justine Weeks M.S.N., R.N. - 11/20/2019 2:44 PM CDT Prescription renewal request for hydroxychloroquine (Plaquenil) received from pharmacy. HISTORY OF PRESENT ILLNESS Last Rheum visit: 01/02/2019 with Velma Munson APRN, CNP Future office visit: ordered, not yet scheduled Last monitoring labs/eye exam: last eye exam 08/11/2018: outside protocol parameters. No current eye exam on file Prescription request matches current plan of care. Prescription request matches a current prescription in the Medication List. ASSESSMENT/PLAN Prescription request pended for provider review due to second request and no current eye exam on file.. documented in this encounter Plan of Treatment Upcoming Encounters Date Type Specialty Care Team Description 01/08/2022 Appointment Radiology Julián Edouard M.D. [address] [place] [phone] (Earl dowd) 01/08/2022 Ancillary Procedure Cardiovascular Disease Julián Edouard M.D. [address] [place] [phone] (Earl dowd) 01/08/2022 Comprehensive Visit Thoracic Surgery Tess Raphael M.D. [address] [place] [address] (Wo rk) documented as of this encounter Visit Diagnoses Not on filedocumented in this encounter Additional Health Concerns Assessment Noted Time PHQ-9 Depression Total Score: 15 04/21/2018 1:00 PM CS T documented as of this encounter Care Teams Sole Dyer Relationship Specialty Start Date End Date Elsewhere, Pcp PCP - General Internal Medicine 10/22/19 documented as of this encounter
--- OUTSIDE RECORDS SUMMARY | 2022-01-08 10:42 | XMS_ITS | Encounter Summary ---
:1970 Author Organization [facility] Address [address] [place] [address] Care Team Providers Name Role Phone Unavailable Primary Care Provider Unavailable Encounter Details Date Type Department Care Team Description 08/25/2018 Ancillary Procedure Department of Dermatology Social History [...] or relatives? How often do you attend zoroastrian or More than 4 times per year 11/16/2021 druze services? Do you belong to any clubs or No 11/16/2021 organizations such as zoroastrian groups, unions, fraternal or athletic groups, or [...] or slept in a custodial (including now)? Sex Assigned at Date Recorded Female 01/25/2018 11:49 AM CDT documented as of this encounter Plan of Treatment Upcoming Encounters Date Type Specialty Care Team Description 01/08/2022 Appointment Radiology Julián Edouard M.D. [address] [place] [phone] (Wo rk) 01/08/2022 Ancillary Procedure Cardiovascular Disease Julián Edouard M.D. [address] [place] [phone] (Wo rk) 01/08/2022 Comprehensive Visit Thoracic Surgery Tess Raphael M.D. [address] [place] [phone] (Wo rk) documented as of this encounter Procedures Procedure Name Priority Date/Time Associated Comments Diagnosis DERMATOLOGY IMAGE Routine 08/25/2018 12:00 Result s for this EXAM PM CDT procedure are i n the results section. documented in this encounter Results Back 527 Patch testing-Dermatology Image Exam (08/25/2018 12:00 PM CDT) Specimen (Source) Anatomical Collection Method Collection Time Re ceived Time Location / / Volume Laterality 08/25/2018 12:00 PM CDT Narrative [facility] - 08/25/2018 3:16 PM CDT This order has been created [...]
--- OUTSIDE RECORDS SUMMARY | 2022-01-08 10:42 | XMS_ITS | Encounter Summary ---
:1970 Author Organization [facility] Address [address] [place] [address] Care Team Providers Name Role Phone Elsewhere, Pcp Primary Care Provider Unavailable Encounter Details Date Type Department Care Team Description 01/31/2020 Clinical Communication Division of [facility] Elodia Smith [facility] [address] [place] [address] [place] [address] [place] [phone] (Work) [phone] Social History Tobacco Use Types Packs/Day Years [...] this encounter Miscellaneous Notes Telephone Encounter - Luiz Hauser - 01/31/2020 3:54 PM CDT 1. Is the patient requesting a COVID test only or other appointments? Other Appointments 2. Have you tested positive for COVID-19 in the last 30 days or do you have a pending COVID-19 test because you had symptoms? no 3. In the last 14 days have you had close contact with a lab confirmed positive case of COVID-19 (close contact is defined as a household case of COVID or being within 6 feet of a COVID-19 patient for more than 5 minutes or having direct contact with infectious secretions, e.g., being coughed on)? no 4. In the past 14 days, are any of the following symptoms new to you and not related to an existing health condition? a. Fever greater than or equal to 37.8 C (100.0 F)? no b. New symptoms (Specifically: headache, cough, shortness of breath, respiratory distress, sore throat, diarrhea, nausea, vomiting, chills and repeated shaking with chills, myalgia's (muscle aches), loss of smell, or change or loss of taste sensation)? yes 5. Are you having NEW trouble breathing, worsening breathing, or feeling as though you're going to collapse when you stand or sit up? no 6. Have you tested positive for COVID in the last 90 days? no Route reply to: luiz Reyez Contact Number: [phone] documented in this encounter Plan of Treatment Upcoming Encounters Date Type Specialty Care Team Description 01/08/2022 Appointment Radiology Julián Edouard M.D. [address] [place] [phone] (Wo rk) 01/08/2022 Ancillary Procedure Cardiovascular Disease Julián Edouard M.D. [address] [place] [phone] (Wo rk) 01/08/2022 Comprehensive Visit Thoracic Surgery Tess Raphael M.D. [address] [place] [phone] (Wo rk) documented as of this encounter Visit Diagnoses Not on filedocumented in this encounter Additional Health Concerns Assessment Noted Time PHQ-9 Depression Total Score: 15 04/21/2018 1:00 PM CS T documented as of this encounter Care Teams Clinical Science Consultant Relationship Specialty Start Date End Date Elsewhere, Pcp PCP - General Internal Medicine 10/22/19 documented as of this encounter
--- OUTSIDE RECORDS SUMMARY | 2022-01-08 10:42 | XMS_ITS | Encounter Summary ---
:1970 Author Organization [facility] Address [address] [place] [address] Care Team Providers Name Role Phone Unavailable [...] More than 4 times per year 11/16/2021 quaker services? Do you belong to any clubs [...] Appointment Radiology Julián Edouard M.D. [address] [place] [phone] (Wo rk) 01/08/2022 Ancillary Procedure Cardiovascular Disease Julián Edouard M.D. [address] [place] [phone] (Wo rk) 01/08/2022 Comprehensive Visit Thoracic Surgery Tess Raphael M.D. [address] [place] [phone] (Wo rk) documented as of this encounter Procedures Procedure Name Priority Date/Time Associated Comments Diagnosis DERMATOLOGY IMAGE Routine 01/02/2019 12:05 Result s for this EXAM PM CDT procedure are i n the results section. documented in this encounter Results Face 507-Dermatology Image Exam (01/02/2019 12:05 PM CDT) Specimen (Source) Anatomical Collection Method [...]
--- OUTSIDE RECORDS SUMMARY | 2022-01-08 10:42 | XMS_ITS | Encounter Summary ---
:1970 Author Organization [facility] Address [address] [place] [address] Care Team Providers Name Role Phone Unavailable Primary Care Provider Unavailable Reason for Visit Reason Comments Med Refill Encounter Details Date Type Department Care Team Description 08/07/2019 Refill Division of Rheumatology in Smita Munson sa, APRN, Med Refill [place], [place] C.N.P. [address] [facility] [address] [place] [address] [place] [address] [phone] (Wo rk) Social History Tobacco Use Types [...] or relatives? How often do you attend anglican or More than 4 times per year 11/16/2021 islam services? Do you belong to any clubs or No 11/16/2021 organizations such as anglican groups, unions, fraternal or athletic groups, or [...] Telephone Encounter - Sawyer Nicholson R.N. - 08/14/2019 3:48 PM CDT Prescription renewal request for hydroxychloroquine (Plaquenil) received from pharmacy. HISTORY OF PRESENT ILLNESS Last Rheum visit: 01/12/2019 with Velma Munson APRN, SINTIA Future office visit: ordered, not yet scheduled Last monitoring labs/eye exam: 08/11/2018: outside protocol parameters. Was to follow-up in one year. Prescription request matches current plan of care. Prescription request matches a current prescription in the Medication List. ASSESSMENT/PLAN Prescription request pended for provider review due to missing eye exam. 90 day supply pended. documented in this encounter Plan of Treatment Upcoming Encounters Date Type Specialty Care Team Description 01/08/2022 Appointment Radiology Julián Edouard M.D. [address] [place] [phone] (Wo nile) 01/08/2022 Ancillary Procedure Cardiovascular Disease Julián Edouard M.D. [address] [place] [phone] (Earl dowd) 01/08/2022 Comprehensive Visit Thoracic Surgery Tess Raphael M.D. [address] [place] [phone] (Wo rk) documented as of this encounter Visit Diagnoses Not on filedocumented in this encounter Additional Health Concerns Assessment Noted Time PHQ-9 Depression Total Score: 15 04/21/2018 1:00 PM CS T documented as of this encounter
--- OUTSIDE RECORDS SUMMARY | 2022-01-08 10:42 | XMS_ITS | Encounter Summary ---
:1970 Author Organization [facility] Address [address] [place] [address] Care Team Providers Name Role Phone Elsewhere, Pcp Primary Care Provider Unavailable Reason for Visit Reason Comments Pre-visit Testing Orders Encounter Details Date Type Department Care Team Description 12/14/2019 Clinical Division of Velma Munson Pre-visit Te sting Communication Rheumatology in L, SENIOR INTEGRATION DEVELOPER, C.N.P. Orders [place], [place] [address] [facility] [address] [place] [phone] Social History Tobacco Use Types Packs/Day Years [...] or relatives? How often do you attend samaritan or More than 4 times per year 11/16/2021 sikh services? Do you belong to any clubs or No 11/16/2021 organizations such as samaritan groups, unions, fraternal or athletic groups, or [...] Encounter - Velma Munson APRN, C.N.P. - 12/17/2019 10:45 AM CDT Lab order signed. Telephone Encounter - Tamica Kramer - 12/14/2019 10:33 AM CDT This patient is returning to see you on 01/09. I have input labs for you to sign. Thank you. documented in this encounter Plan of Treatment Upcoming Encounters Date Type Specialty Care Team Description 01/08/2022 Appointment Radiology Julián Edouard M.D. 200 [place] [phone] (Earl dowd) 01/08/2022 Ancillary Procedure Cardiovascular Disease Julián Edouard M.D. [address] [place] [address] [phone] (Earl dowd) 01/08/2022 Comprehensive Visit Thoracic Surgery Tess Raphael M.D. [address] [place] [phone] (Wo rk) documented as of this encounter Results CBC with Differential, Blood [...] Organization Address City/State/ZIP Code Phon e Number [facility]- [address] [address] [facility] [place] [place] [address] System in [place] [address] Bl CRP (C-Reactive Protein) (12/28/2019 10:26 AM CDT) P athologist Signature C-Reactive 3.8 <=8.0 mg/L 12/28/2019 [facility] Protein (CRP), 10:47 AM CDT P Specimen Anatomical Collection Method Collection Time Receive d Time (Source) Location / / Volume Laterality Blood (Blood, 12/28/2019 10:26 12/28/2019 Venous) AM CDT 10:28 AM CDT Velma Munson APRN, C.N.P. LAB BLOOD ADD-ON Performing Organization Address City/[facility] Phon e Number [address] [address] [facility] [place] [address] System in [place] [address] Bl Sedimentation Rate (12/28/2019 10:26 AM CDT) Analysis Performed At Patho logist Time Signature Sedimentation 13 0 - 29 12/28/2019 CNFL Rate, B mm/1 h 11:46 AM CDT Specimen Anatomical Collection Method Collection Time Receive d Time (Source) Location / / Volume Laterality Blood (Blood, 12/28/2019 10:26 12/28/2019 Venous) AM CDT 10:28 AM CDT Velma Munson APRN, C.N.P. LAB BLOOD ADD-ON Performing Organization Address City/[facility] Phon e Number [address] [address] [place] [address] System in [place] [address] [address] Creatinine with Estimated GFR (12/28/2019 10:26 AM CDT) P athologist Signature Creatinine 0.71 0.59 - 12/28/2019 CNFL 1.04 mg/dL 10:47 AM CDT eGFR-Black/Afric >90 >=60 12/28/2019 CNFL an [place] mL/min/BSA 10:47 AM CDT Comment: ----ADDITIONAL INFORMATION---- Estimated GFR calculated using the 2009 CKD_EPI creatinine equation. eGFR Non-Black/ >90 >=60 mL/min/BSA 12/28/2019 10:47 AM CDT [place] Comment: ----ADDITIONAL INFORMATION---- Estimated GFR calculated using the 2009 CKD_EPI creatinine equation. Specimen Anatomical Collection Method Collection Time Receive d Time (Source) Location / / Volume Laterality Blood (Blood, 12/28/2019 10:26 12/28/2019 Venous) AM CDT 10:28 AM CDT Velma Munson APRN, C.N.P. LAB BLOOD ADD-ON Performing Organization Address City/[facility] Phon e Number [address] [address] [place] [address] System in [address] AST (Aspartate Aminotransferase) (12/28/2019 10:26 AM CDT) [facility] gist Method Time Signature Aspartate 19 8 - 43 12/28/2019 [place] Aminotransferase U/L 10:47 AM CDT (AST), P Specimen Anatomical Collection Method Collection Time Receive d Time (Source) Location / / Volume Laterality Blood (Blood, 12/28/2019 10:26 12/28/2019 Venous) AM CDT 10:28 AM CDT Velma Munson APRN, C.N.P. LAB BLOOD ADD-ON Performing Organization Address City/[facility] Phon e Number [address] [address] [place] [address] System in [address] documented in this encounter Visit Diagnoses Diagnosis Arthritis Rheumatoid (HCC) - Primary documented in this encounter Additional Health Concerns Assessment Noted Time PHQ-9 Depression Total Score: 15 04/21/2018 1:00 PM CS T documented as of this encounter Care Teams Drying Machine Receiver Relationship Specialty Start Date End Date Elsewhere, Pcp PCP - General Internal Medicine 10/22/19 documented as of this encounter
--- OUTSIDE RECORDS SUMMARY | 2022-01-08 10:42 | XMS_ITS | Encounter Summary ---
:1970 Author Organization [facility] Address [address] [place] [address] Care Team Providers Name Role Phone Elsewhere, Pcp Primary Care Provider Unavailable Reason for Visit Reason Onset Date Comments Outpatient COVID-19 Testing 10/22/2019 Encounter Details Date Type Department Care Team Description 10/22/2019 External Outreach Department of Employer Based, [facility], Covid Serology Screening For Other [facility], in Testing Viral [place], [place] (COVID-19) (Primary [address] Dx) [place] [address] Social History Tobacco Use Types Packs/Day Years [...] documented as of this encounter Progress Notes Jessica Fonseca L.P.N. - 10/22/2019 1:59 PM CDT Encounter created for COVID-19 screening. documented in this encounter Plan of Treatment Upcoming Encounters Date Type Specialty Care Team Description 01/08/2022 Appointment Radiology Julián Edouard M.D. [address] [place] [phone] (Earl dowd) 01/08/2022 Ancillary Procedure Cardiovascular Disease Julián Edouard M.D. [address] [place] [phone] (Earl dowd) 01/08/2022 Comprehensive Visit Thoracic Surgery Tess Raphael M.D. [address] [place] [phone] (Earl dowd) documented as of this encounter Procedures Procedure Name Priority Date/Time Associated Diagnosis Comme nts SARS-COV-2 IGG, Routine 10/22/2019 2:01 PM Encounter For Resul ts for this NAHUM, EMP SCRN, CDT Screening For Other proc edure are in BLOOD SPOT Viral Diseases the results (COVID-19) section. documented in this encounter Results (ABNORMAL) SARS-CoV-2 IgG, NAHUM, Emp Scrn, Blood Spot (10/22/2019 2:01 PM CDT) [facility] gist Method Time Signature SARS-CoV-2 Reactive (A) Negative 10/24/2019 [facility] IgG Emp Scrn, 10:17 PM CDT Ab Comment: Result is considered preliminary for the presence of antibodies to SARS-CoV-2 and confirmator y testing using an alternative SARS-CoV-2 antibody test, performed on serum collected by routine venipuncture, is required. ?? Falsely reactive results for IgG antibod ies may occur due to cross-reactivity from pre-existin g antibodies or other possible causes of interference . ?? Testing was performed using the Violin [employer] N Kyzu-[id number]-2 NAHUM (IgG). ??This test has received Emergency Use Authorization (EUA) by the U.S. Food and Drug Administration and is used per print designer's instructions, but it is modified from the print designer's instructions wit h a bridging study to include dried blood spot specimens. ? ? Performance characteristics were verifie d by [facility] in a manner consistent with CLIA require ments. ?? Specimen Anatomical Collection Method Collection Time Receive d Time (Source) Location / / Volume Laterality Blood (Blood, 10/22/2019 2:01 PM 10/24/19 20 5:16 Venous) CDT PM CDT Covid Serology Testing Employer Based LAB MICROBIOLOGY - BLOOD ORDERABLES Performing Organization Address City/State/ZIP Code Phon e Number [facility] [address] [place] [address] [facility] [place] [address] Laboratory Medicine and Pathology [address] [place] documented in this encounter Visit Diagnoses Diagnosis Encounter For Screening For Other Viral Diseases (COVID-19) - Primary documented in this encounter Additional Health Concerns Assessment Noted Time PHQ-9 Depression Total Score: 15 04/21/2018 1:00 PM CS T documented as of this encounter Care Teams Conveyor Tender Relationship Specialty Start Date End Date Elsewhere, Pcp PCP - General Internal Medicine 10/22/19 documented as of this encounter
--- OUTSIDE RECORDS SUMMARY | 2022-01-08 10:42 | XMS_ITS | Encounter Summary ---
:1970 Author Organization [facility] Address [address] [place] [address] Care Team Providers Name Role Phone Elsewhere, Pcp Primary Care Provider Unavailable Reason for Visit Reason Comments P2 Flare in Symptoms Encounter Details Date Type Department Care Team Description 01/30/2020 Clinical Division of Velma Munson P2 Flare in Communication Rheumatology in L, PACKAGER HEAD, C.N.P. Symptoms [place], [place] [address] [facility] [address] [place] [phone] Social History Tobacco Use Types Packs/Day Years [...] Note - Velma Munson APRN, C.N.P. - 01/30/2020 4:28 PM CDT Addended by: VELMA MUNSON on: 01/30/2020 04:28 PM Modules accepted: Orders Telephone Encounter - Velma Munson APRN, C.N.P. - 01/30/2020 4:26 PM CDT Please have her restart the prednisone burst and taper then stay on 10 mg daily for 1 month. I will send through a new prescription for this. Telephone Encounter - Cam Espinoza R.N. - 01/30/2020 10:25 AM CDT ASSESSMENT Patient notes that the flare she had at her last visit with Zohra on 01/10/2020 is continuing. Her symptoms returned when she tapered down to 10 mg of prednisone per day. She is not on prednisone at this time. She will follow-up with her local provider regarding migraines and not feeling well as this may be related to her iron infusions that the local provider is prescribing. She also noted she started her menstrual cycle, which she has not had in 5 years due to Merina IUD, which was recently removed. PLAN Will let Velma know Disposition/Recommendation: notified provider and awaiting recommendations and recommended continue engagement in self-management activities. Information/Education: patient/caller able to teach back. Caller agreeable to plan of care: yes. The following references were used: nursing clinical judgement. Telephone Encounter - Jenn Andersen - 01/30/2020 9:17 AM CDT Patient started Prednisone 2 to 3 weeks ago. Patient has been having debilitating migraine for 4 days. Patient has been doing iron infusions and just not feeling well. Please advise. Thank you, Sarah documented in this encounter Plan of Treatment Upcoming Encounters Date Type Specialty Care Team Description 01/08/2022 Appointment Radiology Julián Edouard M.D. [address] [place] [address] (Wo rk) 01/08/2022 Ancillary Procedure Cardiovascular Disease Julián Edouard M.D. [address] [place] [phone] (Earl rk) 01/08/2022 Comprehensive Visit Thoracic Surgery Tess Raphael M.D. [address] [place] [phone] (Wo rk) documented as of this encounter Visit Diagnoses Not on filedocumented in this encounter Additional Health Concerns Assessment Noted Time PHQ-9 Depression Total Score: 15 04/21/2018 1:00 PM CS T documented as of this encounter Care Teams Real Estate Lawyer Relationship Specialty Start Date End Date Elsewhere, Pcp PCP - General Internal Medicine 10/22/19 documented as of this encounter
--- OUTSIDE RECORDS SUMMARY | 2022-01-08 10:42 | XMS_ITS | Encounter Summary ---
:1970 Author Organization [facility] Address [address] [place] [address] Care Team Providers Name Role Phone Unavailable Primary Care Provider Unavailable Encounter Details Date Type Department Care Team Description 09/19/2018 Orders Only Division of Rheumatology in [place] STAFF ASSISTANT, C.N.P. [address] [facility] [address] [place] [address] [place], [place] [phone] (Wo rk) Social History Tobacco Use Types [...] [facility] [place] [facility] ([facility])? Sex Assigned at Date Recorded Female 01/25/2018 11:49 AM CDT documented as of this encounter Plan of Treatment Upcoming Encounters Date Type Specialty Care Team Description 01/08/2022 Appointment Radiology Julián Edouard M.D. [address] [place] [phone] (Wo rk) 01/08/2022 Ancillary Procedure Cardiovascular Disease Julián Edouard M.D. [address] [place] [phone] (Wo rk) 01/08/2022 Comprehensive Visit Thoracic Surgery Tess Raphael M.D. [address] [place] [phone] (Wo rk) documented as of this encounter Visit Diagnoses Not on filedocumented in this encounter Additional Health Concerns Assessment Noted Time PHQ-9 Depression Total Score: 15 04/21/2018 1:00 PM CS T documented as of this encounter
--- OUTSIDE RECORDS SUMMARY | 2022-01-08 10:42 | XMS_ITS | Encounter Summary ---
:1970 Author Organization [facility] Address [address] [place] [address] Care Team Providers Name Role Phone Unavailable Primary Care Provider Unavailable Reason for Visit Outpatient (Routine) - Closed Specialty Diagnoses / Procedures Referred By Contact Refer red To Contact Dermatology Dayana Sweeney M. D. [facility] [address] [place] [phone] Referral ID Status Reason Start Date Expiration Date Visits Requ ested Visits Authorized [id number] Closed 09/05/2018 09/05/2019 1 1 Encounter Details Date Type Department Care Team Description 01/02/2019 Office Visit Department of Dayana Sweeney (Gabrielle corral Dx); Dermatology césar Gonzales M.D. Hyperpigmentation Post Inflammatory [place], [place] [address] [facility] [address] [place] [phone] Social History Tobacco Use Types Packs/Day Years [...] or relatives? How often do you attend taoism or More than 4 times per year 11/16/2021 mandaeism services? Do you belong to any clubs or No 11/16/2021 organizations such as taoism groups, unions, fraternal or athletic groups, or [...] documented as of this encounter Consult Notes Dayana Sweeney M.D. - 01/02/2019 8:20 AM CDT CHIEF COMPLAINT / REASON FOR VISIT Follow-up melasma HISTORY OF PRESENT ILLNESS Ms. Waleska Diaz is a 48 y.o. female who presents today for follow-up of facial pigmentation, suspected to be melasma. The patient does have a history of a chemical peel on her face performed in the Fall of 2017, which was performed for pigmentary changes, but the patient states worsened the condition. She also takes Plaquenil for mixed connective tissue disease. I previously performed a biopsy from her left forehead, and findings were consistent with melasma or postinflammatory hyperpigmentation. There were not findings consistent with hydroxychloroquine-induced pigmentation. The patient had MED testing performed and she was not photosensitive. She also had patch testing performed and was positive to the following: -7-ipox-Vhttepyutft formaldehyde resin 1% (2), Benzalkonium chloride (2), Methlisothiazolinone (1), Hydroperoxides of Linalool (2), Dodecyl gallate (1). Since our last visit, the patient has been using products only from her SkinSAFE List. She reports being very diligent with photoprotection, including use of a Kiehl's moisturizer every morning with SPF 30. She also uses a sunscreen balm from her safe list regularly. I had recommended obtaining a compound cream with 12% hydroquinone, kojic acid, and Vitamin C. The patient obtained this from the [facility] and used it twice daily for three months.She did not feel that there was any benefit on her facial pigmentation. She denies experiencing any redness or itching secondary to the cream. Today, she also notes persistent dark changes on her back after she had patch testing. Of note, she has a Mirena IUD which has been helpful for her menstrual symptoms. The following portions of the patient's history were reviewed and updated as appropriate: problem list, medications, allergies. REVIEW OF SYSTEMS No additional skin concerns. PHYSICAL EXAM General: Awake, alert, in no acute distress. Skin: I have examined the face and back per patient request. Rodriguez IV skin type. Involving herface, she has ill-defined brown patches on her bilateral cheeks and extending to her roman catholic areas. Left forehead with ill-defined and irregularly-shaped brown patches, and this also extends onto the glabella. On her nasal dorsum and nasal sidewalls there are almost geographic-appearing brown patches. She also has more confluent brown patches at her bilateral upper cutaneous lip as well as irregular brown patches on her chin and lower cutaneous lip. Hyperpigmentation on the face is consistent with prior photograph, I do not appreciate improvement. She has three circular hyperpigmented patches on herback secondary to postinflammatory reaction from patch testing. ASSESSMENT / PLAN #1 Extensive facial hyperpigmentation, most likely melasma #2 Postinflammatory hyperpigmentation, back The patient has ongoing extensive facial hyperpigmentation despite use of 12% hydroquinone, kojic acid, and Vitamin C (compounded cream) twice daily for 3 months. In addition, she underwent patch testing previously and had multiple reactions. She has been avoiding these allergens with diligent use of her SkinSAFE list. She is applying sunscreen to her face every morning, and again throughout the day. Prior biopsy from her left forehead was consistent with melasma versus postinflammatory hyperpigmentation. She does have exogenous hormone exposure with a Mirena IUD, but this is incredibly helpful formenstrual symptoms. Of note, she is on hydroxychloroquine due to mixed connective tissue disease. There were not findings consistent with hydroxychloroquine-induced pigmentation on the biopsy. Today, Irecommended obtaining another biopsy from the right forehead, just to make sure that we are not missing impact from hydroxychloroquine. If biopsy again shows melasma or postinflammatory hyperpigmentation, I will need to discuss next steps with Dr. Greene. We may recommend referral to Dr. Fidel Rivas in the [facility]. I recommend that she continue with diligent photo protection and use of her SkinSAFE list. I also reassured the patient that the small areas of dark discoloration on her back are secondary to postinflammatory hyperpigmentation from her patch testing. Informed her that is very common for individuals with darker skin type to develop postinflammatory hyperpigmentation, and this should fade with time. CONSENT Discussed the risks, benefits, alternatives, and the necessity of other members of the healthcare team participating in the procedure. All questions answered and consent given. UNIVERSAL PROTOCOL Procedural pause conducted to verify: correct patient identity, procedure to be performed, and as applicable, correct side and site, correct patient position, and availability of implants, special equipment, or special requirements. PROCEDURE INFORMATION Punch biopsy. We explained the potential diagnosis and recommended that we obtain a biopsy. The risks and benefitsof the procedure were discussed, and the patient consented to these procedures. Using 1% lidocaine with epinephrine for local anesthesia, a three-mm punch biopsy was obtained from the right forehead. Biopsy submitted to Dermatopathology. Biopsy site closed with a top layer of 6-0 nylon. The skin sutures need to be removed in 5-7 days. Dressing was applied, and wound care instructions were explained. Biopsy results and any further recommendations will be communicated to the patient by letter. Patientgiven pamphlet [id number]. All questions answered. PATIENT EDUCATION Ready to learn. No apparent learning barriers were identified. Learning preferences include listening. Explained diagnosis and treatment plan; patient/guardian of patient expressed understanding of thecontent. documented in this encounter Plan of Treatment Upcoming Encounters Date Type Specialty Care Team Description 01/08/2022 Appointment Radiology Julián Edouard M.D. [address] [place] [address] (Wo rk) 01/08/2022 Ancillary Procedure Cardiovascular Disease Julián Edouard M.D. [address] [place] [address] (Wo rk) 01/08/2022 Comprehensive Visit Thoracic Surgery Tess Raphael M.D. [address] [place] [phone] (Wo rk) documented as of this encounter Procedures Procedure Name Priority Date/Time Associated Diagnosis [facility]me [facility] DERMATOPATHOLOGY Routine 01/02/2019 8:39 AM Resul ts for this CDT procedure are i n the results section. documented in this encounter Results Dermatopathology (01/02/2019 8:39 AM CDT) Component Value Ref Test Analysis Performed Pathologis t Range Method Time At Signature Gross Description Received in formalin labeled with the patient's n manuel, 01/08/2019 medical record number, and right forehead is a 0.3 cm in 4:31 PM diameter aragon skin punch biopsy excised to a depth of 0.2 CDT cm. No discrete lesion is grossly identified on the skin surface. The specimen is submitted en toto in cassette A1. Grossed by NAN. Participated in Ana Maria Smith, 01/08/2019 the M.[facility]-Pathology 4:31 PM Interpretation Fellow CDT Report Janette Hough, 01/08/2019 electronically [place] 4:31 PM signed by CDT 01/08/2019 4:31 PM CDT Interpretation FINAL DIAGNOSIS 01/08/2019 A. ??Right forehead, Skin punch biopsy: ??Increased basal 4:31 PM keratinocyte melanin pigment and superficial dermal CDT melanophages COMMENT Clinical photo and clinical note reviewed. ??Histiocytes containing melanin are seen in the superficial dermis, as confirmed with Covina-Adonay stain. ??Iron stain is unremarkable. ??Multiple tissue levels examined. ??The microscopic changes in this specimen cannot differentiate between melasma, post inflammatory hyperpigmentation or hydroxychloroquine-induced hyperpigmentation, though the absence of dermal iron deposition may favor melasma or possibly post-inflammatory hyperpigmentation slightly over drug-induced hyperpigmentation. Clinical and pathological correlation is recommended. Specimen (Source) Anatomical Collection Method Collection Time Re ceived Time Location / / Volume Laterality Skin (Right 01/02/2019 8:39 AM forehead) CDT Narrative This result has an attachment that is no t available. Dayana Sweeney M.D. LAB PATH DERM ORDERABLES Performing Organization Address City/State/ZIP Code Phon e Number [facility] - [address] [place] [address] 05 [facility] documented in this encounter Visit Diagnoses Diagnosis Melasma - Primary Hyperpigmentation Post Inflammatory documented in this encounter Additional Health Concerns Assessment Noted Time PHQ-9 Depression Total Score: 15 04/21/2018 1:00 PM CS T documented as of this encounter
--- OUTSIDE RECORDS SUMMARY | 2022-01-08 10:43 | XMS_ITS | Encounter Summary ---
:1970 Author Organization [facility] Address [address] [place] [address] Care Team Providers Name Role Phone Unavailable Primary Care Provider Unavailable Reason for Visit Reason Comments Med Refill Encounter Details Date Type Department Care Team Description 07/21/2018 Refill Division of Rheumatology in Smita Munson sa, APRN, Med Refill [place], [place] C.N.P. [address] [facility] [address] [place] [address] [place] [address] [phone] (Wo rk) Social History Tobacco Use Types [...] or slept in a chcf (including now)? Sex Assigned at Date Recorded Female 01/25/2018 11:49 AM CDT documented as of this encounter Plan of Treatment Upcoming Encounters Date Type Specialty Care Team Description 01/08/2022 Appointment Radiology Julián Edouard M.D. [address] [place] [phone] (Wo rk) 01/08/2022 Ancillary Procedure Cardiovascular Disease Julián Edouard M.D. [address] [place] [phone] (Wo rk) 01/08/2022 Comprehensive Visit Thoracic Surgery Tess Raphael M.D. [address] [place] [phone] (Wo rk) documented as of this encounter Visit Diagnoses Not on filedocumented in this encounter Additional Health Concerns Assessment Noted Time PHQ-9 Depression Total Score: 15 04/21/2018 1:00 PM CS T documented as of this encounter
--- OUTSIDE RECORDS SUMMARY | 2022-01-08 10:43 | XMS_ITS | Encounter Summary ---
:1970 Author Organization [facility] Address [address] [place] [address] Care Team Providers Name Role Phone Unavailable Primary Care Provider Unavailable Reason for Visit Reason Onset Date Comments Joint pain and tingling in fingers 06/08/2018 Encounter Details Date Type Department Care Team Description 06/08/2018 Clinical Division of Velma Munson Joint pain a nd Communication Rheumatology in , [employer], C.N.P. tingling in [place], [place] [address] fingers [address] [place] [phone] Social History Tobacco Use Types Packs/Day Years [...] or slept in a snf (including now)? Sex Assigned at Date Recorded Female 01/25/2018 11:49 AM CDT documented as of this encounter Miscellaneous Notes Telephone Encounter - Velma Munson APRN, C.N.P. - 06/09/2018 5:13 PM AMMUNITION STOREKEEPER Prednisone burst and taper was prescribed to patients preferred pharmacy. NITION STOREKEEPER Telephone Encounter - Sawyer Nicholson R.N. - 06/09/2018 1:27 PM CST INFORMATION DISCUSSED Patient returned call. Asked patient if she believes this could be carpal tunnel symptoms. Patient stated no, she thinks it is a flare. Advised patient of Velma's recommendations (see attached note) of prednisone. Patient has had prednisone previously, stated it has worked for her flares, would like to have a taper ordered. Sent to provider to order appropriate taper. Patient will call next week if symptoms persist. PLAN Disposition/Recommendation: provider notified Education: patient/caller able to teach back Caller agreeable to plan of care: yes The following references were used: provider Velma Munson CNP NITION STOREKEEPER Telephone Encounter - Velma Munson APRN, C.N.P. - 06/09/2018 10:23 AM AMMUNITION STOREKEEPER Please call patient and see if it is more carpal tunnel. It sounds like she is in a flare. She may need prednisone. NITION STOREKEEPER Telephone Encounter - Violetta Mendieta - 06/08/2018 10:43 AM CST Patient called. For the last 4 days, patient has had pain and tingling in her fingers in both hands and pain in all of her joints are they are very painful. NITION STOREKEEPER documented in this encounter Plan of Treatment Upcoming Encounters Date Type Specialty Care Team Description 01/08/2022 Appointment Radiology Julián Edouard M.D. [address] [place] [phone] (Wo rk) 01/08/2022 Ancillary Procedure Cardiovascular Disease Julián Edouard M.D. [address] [place] [phone] (Wo rk) 01/08/2022 Comprehensive Visit Thoracic Surgery Tess Raphael M.D. [address] [place] [phone] (Wo rk) documented as of this encounter Visit Diagnoses Not on filedocumented in this encounter Additional Health Concerns Assessment Noted Time PHQ-9 Depression Total Score: 15 04/21/2018 1:00 PM CS T documented as of this encounter
--- OUTSIDE RECORDS SUMMARY | 2022-01-08 10:43 | XMS_ITS | Encounter Summary ---
:1970 Author Organization [facility] Address [address] [place] [address] Care Team Providers Name Role Phone Unavailable Primary Care Provider Unavailable Encounter Details Date Type Department Care Team Description 05/19/2018 Hospital Encounter Department of Velma Munson Pa in Low Back Radiology, Luzmaria ALVES C.N.P. [facility], in [address] [place] [address] [place] [phone] [place], [place] [phone] (Wo rk) [phone] Social History Tobacco Use Types Packs/Day Years [...] 0 500 mg tablet mouth as needed. dextroamphetamine-ampheta Take 45 mg by [...] needed for allergies (allergy triggers--animal dander/dust/cotton) . cholecalciferol (VITAMIN Take 50,000 Units 0 08/23/2018 D3) 50,000 Unit capsule by mouth once a week. Patient completing 8 weekly doses for repleting, Has 4 doses remaining as of 07-27-17. DULoxetine (CYMBALTA) 20 Take 1 capsule (20 90 capsule 1 07/17/[address] capsule mg total) by mouth at bedtime. fluticasone (FLONASE) 50 Administer 1 spray 0 04/30/2020 mcg/actuation nasal spray into affected nostril(s) as needed. hydroxychloroquine Take 1-1.5 tablets 135 tablet 1 9 01/02/2019 (PLAQUENIL) 200 mg tablet (200-300 mg total) by mouth as directed. Take 2 tablets daily on even days and 1 tablet daily on odd days. levonorgestrel (MIRENA) 1 Device by 0 06/30/2015 04/30/2020 20 mcg/24 hr (5 years) intrauterine route. IUD lidocaine (XYLOCAINE) 2 % Take 15 mL by mouth 0 0 06/24/2016 08/23/2018 mucosal solution as needed. lisinopril Take 10 mg by mouth 0 05/27 (PRINIVIL,ZESTRIL) 10 mg every morning. tablet prazosin (MINIPRESS) 1 mg Take 1 capsule (1 120 capsule 11 08/12/2018 capsule mg total) by mouth at bedtime. For anxiety. May increase by 1 mg per week up to 6 mg total daily dose predniSONE (DELTASONE) 5 Take 5-20 mg by 0 06/09/2018 mg tablet mouth daily. Take 4 tablets daily for 3 days, then 3 tablets daily for 3 days, and 2 tablets daily for 3 days, then 1 tablet daily for 3 days. zolpidem (AMBIEN) 10 mg Take 10 mg by mouth 0 05/27/2020 tablet as needed. documented as of this encounter Plan of Treatment Upcoming Encounters Date Type Specialty Care Team Description 01/08/2022 Appointment Radiology Julián Edouard M.D. [address] [place] [address] (Wo rk) 01/08/2022 Ancillary Procedure Cardiovascular Disease Julián Edouard M.D. [address] [place] [phone] (Earl dowd) 01/08/2022 Comprehensive Visit Thoracic Surgery Tess Raphael M.D. [address] [place] [phone] (Earl rk) documented as of this encounter Procedures Procedure Name Priority Date/Time Associated Comments Diagnosis DX LUMBAR SPINE RAD - Routine 05/19/2018 10:23 Pain Low Back Result s for this 2-3 VIEWS (most inpatients AM STEEL WELDER procedure a re in and all the results outpatients) section. documented in this encounter Results DX Lumbar Spine 2-3 Views (05/19/2018 10:23 AM STEEL WELDER) Anatomical Region Laterality Modality Lumbar Spine, Musculoskeletal RST LOS, Neuroradiology N/A Digital Radiography ARZ LOS, Muskuloskeletal FLA LOS Specimen (Source) Anatomical Collection Method Collection Time Re ceived Time Location / / Volume Laterality 05/19/2018 10:30 AM STEEL WELDER Impressions 05/19/2018 10:30 AM STEEL WELDER IMPRESSION: ??Mild multilevel degenerative spondylosis. Slight wedging of T12. Cholecystectomy clips. IUD. Adjustable g astric band. Narrative 05/19/2018 10:30 AM STEEL WELDER EXAM: ??DX LUMBAR SPINE 2-3 VIEWS Procedure Note Richardson Packer M.D. - 05/19/2018For matting of this note might be different from the original. EXAM: DX LUMBAR SPINE 2-3 VIEWS IMPRESSION: Mild multilevel degenerative spondylosis. Slight wedging of T12. Cholecystectomy clips. IUD. Adjustable g astric band. Velma Munson APRN, C.N.P. IMG DIAGNOSTIC IMAGING P ROCEDURES documented in this encounter Visit Diagnoses Diagnosis Pain Low Back Unspecified documented in this encounter Additional Health Concerns Assessment Noted Time PHQ-9 Depression Total Score: 15 04/21/2018 1:00 PM CS T documented as of this encounter
--- OUTSIDE RECORDS SUMMARY | 2022-01-08 10:43 | XMS_ITS | Encounter Summary ---
:1970 Author Organization [facility] Address [address] [place] [address] Care Team Providers Name Role Phone Unavailable Primary Care Provider Unavailable Encounter Details Date Type Department Care Team Description 05/24/2018 Clinical [facility] Mimi Hatch, Medicine in [place], [place] [address] [facility] [address] [place] [phone] Social History Tobacco Use Types Packs/Day Years [...] or slept in a mcfp (including now)? Sex Assigned at Date Recorded Female 01/25/2018 11:49 AM CDT documented as of this encounter Miscellaneous Notes Telephone Encounter - Mimi Hatch, R.N. - 05/24/2018 2:12 PM CST INFORMATION DISCUSSED Staff received the following message. ----- Message ----- From: Lena Wayne Sent: 05/19/2018 ?? 9:58 AM To: Gigi Mcbride M.D. Subject: Return visit with you ? Sir, Patient is still experiencing issues with sleep. ??She would also like to know your opinion on a recent medication she was put on. Patient opted to cancel the CBT appointment with the RN that you had ordered back in April. ??Shefeels that she has done the session before and her insurance will not cover the CBT appointment. She can be reached at [phone]. Can you please put order through for the return visit? Thank you. Daxa Mcbride M.D. responded with the following: I reviewed recent Psychiatry notes by Dr. Hall and Dr. Jackson. ??Please let the patient know that I support their recommendations regarding a trial ofprazosin and psychotherapy. I contacted patient by phone to review feedback from Gigi Mcbride M.D. Patient reports since starting Prazosin she has developed a headache. Patient has not notifeid Dr. Hall and Dr. Jackson of her headache. I requested patient contact Dr. Hall and Dr. Jackson to let them know about her ongoing headache as they may want to adjust the medication. I requested she discuss with them what type of follow she should set up with them to review medication effectiveness. Additionally, if they felt she needs to return to meet with Gigi Mcbride M.D. at [facility] they can request she setup a return appointment as currently Dr. Mcbride in agreement with their plan of care. PLAN Disposition/Recommendation: Patient agreed to contact Dr. Hall and Dr. Jackson about her current headache. Education: patient/caller able to teach back Caller agreeable to plan of care: yes The following references were used: provider Gigi Mcbride M.D. LANCE ARTIST documented in this encounter Plan of Treatment Upcoming Encounters Date Type Specialty Care Team Description 01/08/2022 Appointment Radiology Julián Edouard M.D. [address] [place] [address] (Wo rk) 01/08/2022 Ancillary Procedure Cardiovascular Disease Julián Edouard M.D. [address] [place] [phone] (Wo rk) 01/08/2022 Comprehensive Visit Thoracic Surgery Tess Raphael M.D. [address] [place] [phone] (Wo rk) documented as of this encounter Visit Diagnoses Not on filedocumented in this encounter Additional Health Concerns Assessment Noted Time PHQ-9 Depression Total Score: 15 04/21/2018 1:00 PM CS T documented as of this encounter
--- OUTSIDE RECORDS SUMMARY | 2022-01-08 10:43 | XMS_ITS | Encounter Summary ---
:1970 Author Organization [facility] Address [address] [place] [address] Care Team Providers Name Role Phone Unavailable Primary Care Provider Unavailable Reason for Referral Outpatient (Routine) - Closed Specialty Diagnoses / Procedures Referred By Contact Refer red To Contact Diagnoses Hyperpigmentation Dayana Sweeney M.D. [facility] Procedures JOSÉ MIGUEL Phototherapy - UVA/UVB - MED Photosensitivity testing [address] [place] [phone] Referral ID Status Reason Start Date Expiration Date Visits Requ ested Visits Authorized [id number] Closed 07/03/2018 07/03/2019 2 2 ER REFEREE Encounter Details Date Type Department Care Team Description 07/03/2018 Clinical Communication Department of Dayana Sweeney M.D. [place], [place] [address] [facility] [address] [place] [phone] Social History Tobacco Use Types Packs/Day [...] slept in a care home (including now)? Sex Assigned at Date Recorded Female 01/25/2018 11:49 AM CDT documented as of this encounter Plan of Treatment Upcoming Encounters Date Type Specialty Care Team Description 01/08/2022 Appointment Radiology Julián Edouard M.D. [address] [place] [phone] (Earl dowd) 01/08/2022 Ancillary Procedure Cardiovascular Disease Julián Edouard M.D. [address] [place] [phone] (Earl dowd) 01/08/2022 Comprehensive Visit Thoracic Surgery Tess Raphael M.D. [address] [place] [phone] (Earl dowd) Scheduled Orders Name Type Priority Associated Diagnoses Order S chedule JOSÉ MIGUEL Patch Testing - Day 1 Dermatology Routine Hyperpigmentati on Expected: antigens applied 07/03/2018 (Approximate), Expires: 07/03/2021 JOSÉ MIGUEL Patch Testing - Day 3 Dermatology Routine Hyperpigmentati on Expected: antigens removed/ initial reading (Approximate), Expires: 07/03/2021 JOSÉ MIGUEL Patch Testing - Day 5 Dermatology Routine Hyperpigmentati on Expected: RN visit 07/03/2018 (Approximate), Expires: 07/03/2021 JOSÉ MIGUEL Patch Testing - Day 5 Dermatology Routine Hyperpigmentati on Expected: final reading + MD Visit 07/2018 (Approximate), Expires: 07/03/2021 JOSÉ MIGUEL Phototherapy - UVA/UVB Dermatology Routine Hyperpigmentat ion Expected: - MED Photosensitivity 07/03 testing (Approximate), Expires: 07/03/2021 documented as of this encounter Visit Diagnoses Diagnosis Hyperpigmentation - Primary documented in this encounter Additional Health Concerns Assessment Noted Time PHQ-9 Depression Total Score: 15 04/21/2018 1:00 PM CS T documented as of this encounter
--- OUTSIDE RECORDS SUMMARY | 2022-01-08 10:43 | XMS_ITS | Encounter Summary ---
:1970 Author Organization [facility] Address [address] [place] [address] Care Team Providers Name Role Phone Unavailable Primary Care Provider Unavailable Encounter Details Date Type Department Care Team Description 08/21/2018 Clinical Support Department of Dayana Sweeney M.D. [address] [place] [address] Hyperpigmentation Dermatology in Darleen George R.N. [address] [place] [address] [place], [place] [address] [place] [phone] Social History Tobacco Use Types Packs/Day Years [...] More than 4 times per year 11/16/2021 church services? Do you belong to any clubs [...] documented as of this encounter Progress Notes Darleen George R.N. - 08/21/2018 3:00 PM CDT Patient is here for patch test application. Supervising Sales Planning Analyst: Mandy Jennings MD ([phone]). Ordering Provider: Dayana Sweeney MD ([phone]). The Standard series (80 patches) and Extended Standard/Personal Care series (60 patches) were applied to the back. Total number of patches applied: 140. Teaching provided to patient and spouse. Barriers to learning identified as none. Preferred learningstyle is listening, reading, seeing and doing. Educated about patch testing per patient education pamphlet Patch Testing [id number]. Teaching methods included discussion and printed materials. Evaluation of learning: able to teach back. Time spent with the patient: 30 minutes. documented in this encounter Plan of Treatment Upcoming Encounters Date Type Specialty Care Team Description 01/08/2022 Appointment Radiology Julián Edouard M.D. [address] [place] [phone] (Earl dowd) 01/08/2022 Ancillary Procedure Cardiovascular Disease Julián Edouard M.D. [address] [place] [address] [phone] (Earl dowd) 01/08/2022 Comprehensive Visit Thoracic Surgery Tess Raphael M.D. [address] [place] [phone] (Wo rk) documented as of this encounter Visit Diagnoses Diagnosis Hyperpigmentation documented in this encounter Additional Health Concerns Assessment Noted Time PHQ-9 Depression Total Score: 15 04/21/2018 1:00 PM CS T documented as of this encounter
--- OUTSIDE RECORDS SUMMARY | 2022-01-08 10:43 | XMS_ITS | Encounter Summary ---
:1970 Author Organization [facility] Address [address] [place] [address] Care Team Providers Name Role Phone Unavailable Primary Care Provider Unavailable Encounter Details Date Type Department Care Team Description 06/09/2018 Orders Only Division of Rheumatology in Smita Munson [place] LINE COOK, C.N.P. [address] [facility] [address] [place] [address] [place], [place] [phone] (Wo rk) Social History Tobacco Use Types [...] More than 4 times per year 11/16/2021 methodist services? Do you belong to any clubs [...] or slept in a assisted (including now)? Sex Assigned at Date Recorded Female 01/25/2018 11:49 AM CDT documented as of this encounter Plan of Treatment Upcoming Encounters Date Type Specialty Care Team Description 01/08/2022 Appointment Radiology Julián Edouard M.D. [address] [place] [phone] (Wo rk) 01/08/2022 Ancillary Procedure Cardiovascular Disease Julián Edouard M.D. [address] [place] [phone] (Wo rk) 01/08/2022 Comprehensive Visit Thoracic Surgery Tess Raphael M.D. [address] [place] [phone] (Wo rk) documented as of this encounter Visit Diagnoses Not on filedocumented in this encounter Additional Health Concerns Assessment Noted Time PHQ-9 Depression Total Score: 15 04/21/2018 1:00 PM CS T documented as of this encounter
--- OUTSIDE RECORDS SUMMARY | 2022-01-08 10:43 | XMS_ITS | Encounter Summary ---
:1970 Author Organization [facility] Address [address] [place] [address] Care Team Providers Name Role Phone Unavailable Primary Care Provider Unavailable Reason for Visit Reason Comments Patch Testing Encounter Details Date Type Department Care Team Description 08/25/2018 Office Visit Department of Patel, Dayana Gonzales M.D. [address] [place] [address] Hyperpigmentation Dermatology in Son Moses R.N. [address] [place] [phone] [place], [place] [address] [place] [phone] Social History Tobacco Use Types Packs/Day [...] documented as of this encounter Progress Notes Son Moses R.N. - 08/25/2018 3:00 PM CDT Patient here for patch test day 5 reading. Supervising eco industrial development consultant: Nano Aragon MD ([phone]). Ordering physician: Dayana Sweeney MD ([phone]). Final day reading of patch testing completed today. Photos of the test area were taken. RN instructed the patient that patch test results will be reviewed with her on the day of her final visit with her dermatology provider (August 29, 2018). Patient instructed to continue with her current plan of careuntil that time. Understanding verbalized today. Teaching provided to patient. Barriers to learning identified as none. Preferred learning style is listening, reading, seeing and doing. Patient educated about patch testing per patient education pamphlet Patch Testing [id number]. Teaching methods included discussion and printed material. Evaluation of learning: able to teach back. Time spent with the patient: 25 minutes. documented in this encounter Plan of Treatment Upcoming Encounters Date Type Specialty Care Team Description 01/08/2022 Appointment Radiology Julián Edouard M.D. [address] [place] [phone] (Earl dowd) 01/08/2022 Ancillary Procedure Cardiovascular Disease Julián Edouard M.D. [address] [place] [phone] (Earl dowd) 01/08/2022 Comprehensive Visit Thoracic Surgery Tess Raphael M.D. [address] [place] [phone] (Wo rk) documented as of this encounter Visit Diagnoses Diagnosis Hyperpigmentation documented in this encounter Additional Health Concerns Assessment Noted Time PHQ-9 Depression Total Score: 15 04/21/2018 1:00 PM CS T documented as of this encounter
--- OUTSIDE RECORDS SUMMARY | 2022-01-08 10:43 | XMS_ITS | Encounter Summary ---
:1970 Author Organization [facility] Address [address] [place] [address] Care Team Providers Name Role Phone Unavailable Primary Care Provider Unavailable Encounter Details Date Type Department Care Team Description 07/03/2018 Orders Only Department of Dermatology in You Dayana rudolph M.D. [place], [place] [address] [facility] [address] [place] [phone] (Wo rk) Social History Tobacco Use Types [...] or slept in a halfway (including now)? Sex Assigned at Date Recorded Female 01/25/2018 11:49 AM CDT documented as of this encounter Plan of Treatment Upcoming Encounters Date Type Specialty Care Team Description 01/08/2022 Appointment Radiology Julián Edouard M.D. [address] [place] [phone] (Wo rk) 01/08/2022 Ancillary Procedure Cardiovascular Disease Julián Edouard M.D. [address] [place] [phone] (Wo rk) 01/08/2022 Comprehensive Visit Thoracic Surgery Tess Raphael M.D. [address] [place] [phone] (Wo rk) documented as of this encounter Visit Diagnoses Not on filedocumented in this encounter Additional Health Concerns Assessment Noted Time PHQ-9 Depression Total Score: 15 04/21/2018 1:00 PM CS T documented as of this encounter
--- OUTSIDE RECORDS SUMMARY | 2022-01-08 10:43 | XMS_ITS | Encounter Summary ---
:1970 Author Organization [facility] Address [address] [place] [address] Care Team Providers Name Role Phone Unavailable Primary Care Provider Unavailable Reason for Visit Reason Comments Patch Testing Encounter Details Date Type Department Care Team Description 08/23/2018 Clinical Support Department of Dayana Sweeney M.D. [address] [place] [address] Hyperpigmentation Dermatology in [facility], Amanda Gonzales R.N. [address] [place] [phone] [place], [place] [address] [place] [phone] Social History Tobacco Use Types Packs/Day Years [...] or slept in a jail (including now)? Sex Assigned at Date Recorded Female 01/25/2018 11:49 AM CDT documented as of this encounter Progress Notes Amanda Sage R.N. - 08/23/2018 3:00 PM CDT Patient here for patch test removal and day 3 reading. Supervising real estate consultant: Mandy Jennings MD ([phone]). Ordering physician: Dayana Sweeney MD ([phone]). Reviewed instructions to keep the patch test area dry and not to apply creams or lotions to this area. Teaching provided to patient. Barriers to learning identified as none. Preferred learning style is listening. Patient educated about patch testing per patient education pamphlet Patch Testing [id number].Teaching methods included discussion and printed material. Evaluation of learning: able to teach back. Time spent with the patient: 10 minutes. documented in this encounter Plan of Treatment Upcoming Encounters Date Type Specialty Care Team Description 01/08/2022 Appointment Radiology Julián Edouard M.D. [address] [place] [phone] (Earl dowd) 01/08/2022 Ancillary Procedure Cardiovascular Disease Julián Edouard M.D. [address] [place] [phone] (Earl dowd) 01/08/2022 Comprehensive Visit Thoracic Surgery Tess Raphael M.D. [address] [place] [phone] (Earl dowd) documented as of this encounter Visit Diagnoses Diagnosis Hyperpigmentation documented in this encounter Additional Health Concerns Assessment Noted Time PHQ-9 Depression Total Score: 15 04/21/2018 1:00 PM CS T documented as of this encounter
--- OUTSIDE RECORDS SUMMARY | 2022-01-08 10:43 | XMS_ITS | Encounter Summary ---
:1970 Author Organization [facility] Address [address] [place] [address] Care Team Providers Name Role Phone Unavailable Primary Care Provider Unavailable Reason for Visit MRI/CAT/PET Scan (Routine) - Closed Specialty Diagnoses / Procedures Referred By Contact Refer red To Contact Radiology Diagnoses Pain Hip [facility] Procedures MR Pelvis without IV Contrast MR Hip Left without and with IV Contrast OK MRI LWR EXT JOINT WO/W CNTRST HC MRI LWR EXT JOINT WO/W CNTRST OK MRI LWR EXT JOINT WO/W CNTRST OK MRI PELVIS WO CNTRST HC MRI PELVIS WO CNTRST C.N.P. OK MRI PELVIS WO CNTRST [address] [place] [phone] Referral ID Status Reason Start Date Expiration Date Visits Requ ested Visits Authorized [id number] Closed 08/23/2018 08/23/2019 1 1 Encounter Details Date Type Department Care Team Description 08/25/2018 Hospital Encounter Department of Velma Munson Pa in Hip Left Radiology, [facility] LONG, C.N.P. [facility], in [address] [place] [address] [place] [phone] [place], [place] [phone] (Wo rk) [phone] Social History Tobacco Use Types Packs/Day Years [...] 5 Take 30mg daily 50 tablet 0 201809/19/2018 mg tablet (15mg twice daily) for 3 days, than 20mg daily (10mg twice daily) for 3 days, than 15mg daily for 3 days, than 10mg daily. topiramate (TOPAMAX) 50 TAKE 1 AT BEDTIME 0 07/0405/27/2020 mg tablet FOR 2 WEEKS, THEN CONTINUE 2 AT BEDTIME zolpidem (AMBIEN) 10 mg Take 10 mg by mouth 0 05/27/2020 tablet as needed. documented as of this encounter Plan of Treatment Upcoming Encounters Date Type Specialty Care Team Description 01/08/2022 Appointment Radiology Julián Edouard M.D. 200 [place] [phone] (Wo nile) 01/08/2022 Ancillary Procedure Cardiovascular Disease Julián Edouard M.D. 200 [place] [phone] (Earl dowd) 01/08/2022 Comprehensive Visit Thoracic Surgery Tess Raphael M.D. [address] [place] [phone] (Wo rk) documented as of this encounter Procedures Procedure Name Priority Date/Time Associated Comments Diagnosis MR PELVIS WITHOUT RAD - Routine 08/25/2018 12:56 Pain Hip Left Resu lts for this IV CONTRAST (most inpatients PM CDT procedure a re in and all the results outpatients) section. documented in this encounter Results MR Pelvis without IV Contrast (08/25/2018 12:56 PM CDT) Anatomical Region Laterality Modality Pelvis, Abdominal RST LOS, Abdominal ARZ LOS, Abdominal N/A Magnetic Resonance FLA LOS, Musculoskeletal ARZ LOS Specimen (Source) Anatomical Collection Method Collection Time Re ceived Time Location / / Volume Laterality 08/25/2018 1:28 PM CDT Impressions 08/25/2018 1:38 PM CDT IMPRESSION: ?? 1. 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 This has not progressed since the MRI dated 09/21/2017. 2. Mild left hamstring origin tendinopat hy. This is also very similar to that observed on the MRI dated 09/21/2017. Narrative 08/25/2018 1:38 PM CDT EXAM: ??MR PELVIS WITHOUT IV CONTRAST COMPARISON: ??Radiographs of the pelvis and hips dated 05/19/2018. MRI pelvis dated 06/24/2017. FINDINGS: ??Mild bilateral sacroiliac tova int degeneration without periarticular edema to suggest acute inflammatory proc ess. Femoral heads well seated with mild bilateral hip degeneration. Small left a nd trace right hip joint effusions without evidence of loose intra-articula r joint body. Chronic, nondisplaced anterior to superior bilateral hip kimberlyn l tearing. Osseous marrow signal normal. No evidenc e of fracture, stress fracture, or proximal femur avascular necrosis. Mild to moderate insertional tendinopath y of the bilateral gluteus medius minimus insertions with small, partial-t hickness tearing at the insertion, on the left. Mild left and trace right grea ter trochanteric bursitis. Mild left hamstring origin tendinopathy. Bilateral cystic adnexal lesions with tr kevin free pelvic fluid are within normal physiologic limits for a premenopausal p atient. IUD noted. Procedure Note Lawson Turcios M.D. - 08/25/2018For matting of this note might be different from the original. EXAM: MR PELVIS WITHOUT IV CONTRAST COMPARISON: Radiographs of the pelvis an d hips dated 05/19/2018. MRI pelvis dated 06/24/2017. FINDINGS: Mild bilateral sacroiliac join t degeneration without periarticular edema to suggest acute inflammatory proc ess. Femoral heads well seated with mild bilateral hip degeneration. Small left a nd trace right hip joint effusions without evidence of loose intra-articula r joint body. Chronic, nondisplaced anterior to superior bilateral hip kimberlyn l tearing. Osseous marrow signal normal. No evidenc e of fracture, stress fracture, or proximal femur avascular necrosis. Mild to moderate insertional tendinopath y of the bilateral gluteus medius minimus insertions with small, partial-t hickness tearing at the insertion, on the left. Mild left and trace right grea ter trochanteric bursitis. Mild left hamstring origin tendinopathy. Bilateral cystic adnexal lesions with tr kevin free pelvic fluid are within normal physiologic limits for a premenopausal p atient. IUD noted. IMPRESSION: 1. 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 This has not progressed since the MRI dated 09/21/2017. 2. Mild left hamstring origin tendinopat hy. This is also very similar to that observed on the MRI dated 09/21/2017. Velma Munson APRN, C.N.P. JAIME MRI PROCEDURES documented in this encounter Visit Diagnoses Diagnosis Pain Hip Left documented in this encounter Additional Health Concerns Assessment Noted Time PHQ-9 Depression Total Score: 15 04/21/2018 1:00 PM CS T documented as of this encounter
--- OUTSIDE RECORDS SUMMARY | 2022-01-08 10:43 | XMS_ITS | Encounter Summary ---
:1970 Author Organization [facility] Address [address] [place] [address] Care Team Providers Name Role Phone Unavailable Primary Care Provider Unavailable Encounter Details Date Type Department Care Team Description 08/17/2018 Clinical Communication Department of Son Moses Dermatology in T, R.N. [place], [place] [address] [facility] [address] [place] [phone] Social History Tobacco Use Types Packs/Day Years [...] this encounter Miscellaneous Notes Telephone Encounter - Son Moses R.N. - 08/17/2018 11:01 AM CDT HISTORY OF PRESENT ILLNESS RN called patient to let her know that if she wants to make sure insurance will cover her Patch Testcoming up next week, that she will need to contact her insurance company directly. The following portions of the patient's history were reviewed and updated as appropriate: medical history. ASSESSMENT / PLAN Patient states that she has already discussed with her insurance company, and was told that as long as Dr. Sweeney feels that it is medically necessary, they will cover it. On a different subject, patient also wanted to notify Dr. Sweeney that although she had not noticed color changes to her shins when asked about it at her visit, now that she has looked at them, she does feel that some of the skin does have a blue tinge to it. She admits it may be just veins showing through, but wanted to mention it to Dr. Sweeney. Dr. Sweeney will examine the skin on her shins at her Patch Test follow up appointment on 08/29. Disposition/Recommendation: Patient will plan on starting patch test on Tuesday Education: patient/caller able to teach back Caller agreeable to plan of care: yes The following references were used: nursing clinical judgement documented in this encounter Plan of Treatment Upcoming Encounters Date Type Specialty Care Team Description 01/08/2022 Appointment Radiology Julián Edouard M.D. [address] [place] [address] (Earl dowd) 01/08/2022 Ancillary Procedure Cardiovascular Disease Julián Edouard M.D. [address] [place] [phone] (Wo rk) 01/08/2022 Comprehensive Visit Thoracic Surgery Tess Raphael M.D. [address] [place] [phone] (Wo rk) documented as of this encounter Visit Diagnoses Not on filedocumented in this encounter Additional Health Concerns Assessment Noted Time PHQ-9 Depression Total Score: 15 04/21/2018 1:00 PM CS T documented as of this encounter
--- OUTSIDE RECORDS SUMMARY | 2022-01-08 10:43 | XMS_ITS | Encounter Summary ---
:1970 Author Organization [facility] Address [address] [place] [address] Care Team Providers Name Role Phone Unavailable Primary Care Provider Unavailable Reason for Visit Reason Comments Results Encounter Details Date Type Department Care Team Description 05/19/2018 Clinical Communication Division of Velma Munson Rheumatology in , DIRECT SALES CONSULTANT, C.N.P. [place], [place] [address] [facility] [address] [place] [phone] Social History Tobacco Use Types Packs/Day Years [...] or slept in a longterm (including now)? Sex Assigned at Date Recorded Female 01/25/2018 11:49 AM CDT documented as of this encounter Miscellaneous Notes Telephone Encounter - Cam Espinoza R.N. - 05/23/2018 11:41 AM LEARNING SUPPORT SPECIALIST INFORMATION DISCUSSED Message relayed to patient. Patient understood discussion and had no further questions. PLAN Disposition/Recommendation: self-care appropriate at this time Education: patient/caller able to teach back Caller agreeable to plan of care: yes The following references were used: nursing clinical judgement NING SUPPORT SPECIALIST Telephone Encounter - Velma Munson APRN, C.N.P. - 05/19/2018 4:36 PM LEARNING SUPPORT SPECIALIST Please let the patient know the xrays of her lumbar spine and pelvis did not show any inflammation. There were degenerative changes noted in multiple levels her lumbar spine, pelvis and hips. Velma NING SUPPORT SPECIALIST documented in this encounter Plan of Treatment Upcoming Encounters Date Type Specialty Care Team Description 01/08/2022 Appointment Radiology Julián Edouard M.D. [address] [place] [phone] (Wo rk) 01/08/2022 Ancillary Procedure Cardiovascular Disease Julián Edouard M.D. [address] [place] [phone] (Wo nile) 01/08/2022 Comprehensive Visit Thoracic Surgery Tess Raphael M.D. [address] [place] [address] [phone] (Wo rk) documented as of this encounter Visit Diagnoses Not on filedocumented in this encounter Additional Health Concerns Assessment Noted Time PHQ-9 Depression Total Score: 15 04/21/2018 1:00 PM CS T documented as of this encounter
--- OUTSIDE RECORDS SUMMARY | 2022-01-08 10:43 | XMS_ITS | Encounter Summary ---
:1970 Author Organization [facility] Address [address] [place] [address] Care Team Providers Name Role Phone Unavailable Primary Care Provider Unavailable Encounter Details Date Type Department Care Team Description 05/19/2018 Hospital Encounter Department of Velma Munson Pa in Low Back Radiology, Luzmaria ALVES C.N.P. [facility], in [address] [place] [address] [place] [phone] [place], [place] [phone] (Wo rk) [phone] Social History Tobacco Use Types Packs/Day Years [...] More than 4 times per year 11/16/2021 scientology services? Do you belong to any clubs [...] Appointment Radiology Julián Edouard M.D. [address] [place] [address] (Wo rk) 01/08/2022 Ancillary Procedure Cardiovascular Disease Julián Edouard M.D. [address] [place] [phone] (Earl rk) 01/08/2022 Comprehensive Visit Thoracic Surgery Tess Raphael M.D. [address] [place] [phone] (Earl rk) documented as of this encounter Procedures Procedure Name Priority Date/Time Associated Comments Diagnosis DX HIPS AND RAD - Routine 05/19/2018 10:22 Pain Low Back Results f or this PELVIS BILATERAL (most inpatients AM WOVEN WOOD SHADE ASSEMBLER procedu re are in MINIMUM 5 VIEWS and all the results outpatients) section. documented in this encounter Results DX Hips and Pelvis Bilateral 5+ Views (05/19/2018 10:22 AM [employer]OVEN WO[employer] SHADE ASSEMBLER) Anatomical Region Laterality Modality Lower Extremity, Pelvis, Hip, Musculoskeletal RST LOS, Bilat eral Digital Radiography Musculoskeletal ARZ LOS, Muskuloskeletal FLA LOS Specimen (Source) Anatomical Collection Method Collection Time Re ceived Time Location / / Volume Laterality 05/19/2018 10:28 AM [employer] WO[employer] SHADE ASSEMBLER Impressions 05/19/2018 10:29 AM WOVEN WOOD SHADE ASSEMBLER IMPRESSION: ??Minimal scattered degenerative changes of the pelvis and both hips. Right femoral neck bone island. IUD. Lap aroscopic adjustable gastric band, port and tube is partially seen. Narrative 05/19/2018 10:29 AM WOVEN WOOD SHADE ASSEMBLER EXAM: ??DX HIPS AND PELVIS BILATERAL 5+ VIEWS Procedure Note Richardson Packer M.D. - 05/19/2018For matting of this note might be different from the original. EXAM: DX HIPS AND PELVIS BILATERAL 5+ EWS IMPRESSION: Minimal scattered degenerati ve changes of the pelvis and both hips. Right femoral neck bone island. IUD. Lap aroscopic adjustable gastric band, port and tube is partially seen. Velma Munson APRN, C.N.P. IMG DIAGNOSTIC IMAGING P ROCEDURES documented in this encounter Visit Diagnoses Diagnosis Pain Low Back Unspecified documented in this encounter Additional Health Concerns Assessment Noted Time PHQ-9 Depression Total Score: 15 04/21/2018 1:00 PM CS T documented as of this encounter
--- OUTSIDE RECORDS SUMMARY | 2022-01-08 10:43 | XMS_ITS | Encounter Summary ---
:1970 Author Organization [facility] Address [address] [place] [address] Care Team Providers Name Role Phone Unavailable Primary Care Provider Unavailable Reason for Visit Reason Onset Date Comments pain 05/19/2018 p1 05/19/2018 Encounter Details Date Type Department Care Team Description 05/19/2018 Clinical Communication Division of Velma Munson in; p1 Rheumatology in L, GLASSWARE FINISHER, C.N.P. [place], [place] [address] [facility] [address] [place] [phone] Social History Tobacco Use Types Packs/Day Years [...] 11/16/2021 organizations such as yarsani groups, unions, fraternal or athletic groups, or [...] Telephone Encounter - Nano Gomes R.N. - 05/19/2018 3:48 PM PERFORMANCE MANAGER INFORMATION DISCUSSED Patient was relayed Velma Munson CONFERENCE CONCIERGE message from today 05/19/2018. PLAN Disposition/Recommendation:Patient will do as recommended and no improvements by Tuesday or Tuesday she will call back. Education: patient/caller able to teach back Caller agreeable to plan of care: yes The following references were used: nursing clinical judgement ORMANCE MANAGER Telephone Encounter - Velma Munson APRN, C.N.P. - 05/19/2018 3:42 PM PERFORMANCE MANAGER Please have her take ibuprofen 800 mg 3 times a day on a schedule to help with the pain. Velma ORMANCE MANAGER Telephone Encounter - Nena Delacruz - 05/19/2018 1:45 PM PERFORMANCE MANAGER Patient called to report she saw Velma Munson this morning and was in a slight amount of pain however, after laying on xray table her lower back is now in a tremendous amount of pain, difficulty walking and moving around. ORMANCE MANAGER documented in this encounter Plan of Treatment Upcoming Encounters Date Type Specialty Care Team Description 01/08/2022 Appointment Radiology Julián Edouard M.D. [address] [place] [phone] (Wo rk) 01/08/2022 Ancillary Procedure Cardiovascular Disease Julián Edouard M.D. [address] [place] [phone] (Wo rk) 01/08/2022 Comprehensive Visit Thoracic Surgery Tess Raphael M.D. [address] [place] [phone] (Wo rk) documented as of this encounter Visit Diagnoses Not on filedocumented in this encounter Additional Health Concerns Assessment Noted Time PHQ-9 Depression Total Score: 15 04/21/2018 1:00 PM CS T documented as of this encounter
--- OUTSIDE RECORDS SUMMARY | 2022-01-08 10:43 | XMS_ITS | Encounter Summary ---
:1970 Author Organization [facility] Address [address] [place] [address] Care Team Providers Name Role Phone Unavailable Primary Care Provider Unavailable Reason for Visit Outpatient (Routine) - Closed Specialty Diagnoses / Procedures Referred By Contact Refer red To Contact Diagnoses Hyperpigmentation Dayana Sweeney M.D. [facility] Procedures JOSÉ MIGUEL Phototherapy - UVA/UVB - MED Photosensitivity testing [address] [place] [phone] Referral ID Status Reason Start Date Expiration Date Visits Requ ested Visits Authorized [id number] Closed 07/03/2018 07/03/2019 2 2 Encounter Details Date Type Department Care Team Description 08/21/2018 Clinical Support Department of Dayana Sweeney M.D. [address] [place] [phone] Hyperpigmentation Dermatology in Cynthia Blackburn R.N. [address] [place] [phone] [place], [place] [address] [place] [phone] Social History Tobacco Use Types Packs/Day Years [...] Appointment Radiology Julián Edouard M.D. [address] [place] [phone] (Earl dowd) 01/08/2022 Ancillary Procedure Cardiovascular Disease Julián Edouard M.D. [address] [place] [phone] (Earl dowd) 01/08/2022 Comprehensive Visit Thoracic Surgery Tess Raphael M.D. [address] [place] [phone] (Earl dowd) documented as of this encounter Visit Diagnoses Diagnosis Hyperpigmentation documented in this encounter Additional Health Concerns Assessment Noted Time PHQ-9 Depression Total Score: 15 04/21/2018 1:00 PM CS T documented as of this encounter
--- OUTSIDE RECORDS SUMMARY | 2022-01-08 10:43 | XMS_ITS | Encounter Summary ---
:1970 Author Organization [facility] Address [address] [place] [address] Care Team Providers Name Role Phone Unavailable Primary Care Provider Unavailable Encounter Details Date Type Department Care Team Description 08/21/2018 Ancillary Procedure Department of Dermatology Social History [...] More than 4 times per year 11/16/2021 episcopalian services? Do you belong to any clubs [...] or slept in a correction (including now)? Sex Assigned at Date Recorded Female 01/25/2018 11:49 AM CDT documented as of this encounter Plan of Treatment Upcoming Encounters Date Type Specialty Care Team Description 01/08/2022 Appointment Radiology Julián Edouard M.D. [address] [place] [phone] (Wo rk) 01/08/2022 Ancillary Procedure Cardiovascular Disease Julián Edouard M.D. [address] [place] [phone] (Wo rk) 01/08/2022 Comprehensive Visit Thoracic Surgery Tess Raphael M.D. [address] [place] [phone] (Wo rk) documented as of this encounter Procedures Procedure Name Priority Date/Time Associated Comments Diagnosis DERMATOLOGY IMAGE Routine 08/21/2018 12:00 Result s for this EXAM PM CDT procedure are i n the results section. documented in this encounter Results Thighs-Dermatology Image Exam (08/21/2018 12:00 PM CDT) Specimen (Source) Anatomical Location Collection Method / Collectio n Time Received Time / Laterality Volume Narrative IIMS - 08/22/2018 2:49 PM CDT This order has been [...]
--- OUTSIDE RECORDS SUMMARY | 2022-01-08 10:43 | XMS_ITS | Encounter Summary ---
:1970 Author Organization [facility] Address [address] [place] [address] Care Team Providers Name Role Phone Unavailable Primary Care Provider Unavailable Reason for Visit Outpatient (Routine) - Closed Specialty Diagnoses / Procedures Referred By Contact Refer red To Contact Diagnoses Hyperpigmentation Dayana Sweeney M.D. [facility] Procedures JOSÉ MIGUEL Phototherapy - UVA/UVB - MED Photosensitivity testing [address] [place] [phone] Referral ID Status Reason Start Date Expiration Date Visits Requ ested Visits Authorized [id number] Closed 07/03/2018 07/03/2019 2 2 Encounter Details Date Type Department Care Team Description 08/22/2018 Clinical Support Department of Dermatology Dayana Savage M.D. [address] [place] [phone] [address] [facility] Irene Dash, L.PLennoxNLennox [address] [place] [phone] Social History Tobacco Use Types Packs/Day [...] Appointment Radiology Julián Edouard M.D. [address] [place] [phone] (Wo rk) 01/08/2022 Ancillary Procedure Cardiovascular Disease Julián Edouard M.D. [address] [place] [phone] (Wo rk) 01/08/2022 Comprehensive Visit Thoracic Surgery Tess Raphael M.D. [address] [place] [phone] (Wo rk) documented as of this encounter Visit Diagnoses Not on filedocumented in this encounter Additional Health Concerns Assessment Noted Time PHQ-9 Depression Total Score: 15 04/21/2018 1:00 PM CS T documented as of this encounter
--- OUTSIDE RECORDS SUMMARY | 2022-01-08 10:43 | XMS_ITS | Encounter Summary ---
:1970 Author Organization [facility] Address [address] [place] [address] Care Team Providers Name Role Phone Unavailable Primary Care Provider Unavailable Reason for Visit Outpatient (Routine) - Closed Specialty Diagnoses / Procedures Referred By Contact Refer red To Contact Dermatology Diagnoses Vitiligo Left Unspecified Eyelid And Periocular Area [facility] [address] [place] [phone] Referral ID Status Reason Start Date Expiration Date Visits V isits Requested Authorized [id number] Closed Specialty 04/13/2018 04/13/2019 1 1 Services Required Encounter Details Date Type Department Care Team Description 06/14/2018 Comprehensive Visit Department of Joel Rubin M.D. Abnormality Pigment (Primary Dx); Dermatology in Dayana Sweeney M.D. [address] [place] [phone] Vitiligo Left Unspecified Eyelid And Per iocular Area [place], [place] [address] [place] [phone] Social History Tobacco Use Types Packs/Day [...] or slept in a alf (including now)? Sex Assigned at Date Recorded Female 01/25/2018 11:49 AM CDT documented as of this encounter Consult Notes Dayana Sweeney M.D. - 06/14/2018 2:20 PM CST SUBJECTIVE REASON FOR CONSULT Facial patches. HISTORY OF PRESENT ILLNESS Ms. Diaz is a very pleasant 47-year-old woman who presents today due to dark patches on her face. Of note, she is followed here at [facility] by Rheumatology due to inflammatory arthritis with possible mixed connective tissue disease. She has been on methotrexate in the past, currently on prednisone as well as Plaquenil. Regarding her facial discoloration, she reports that it began in 2013, initially with red/brown patches on her bilateral cheeks. In 2015, she began to notice brown spots appearing on her nose, and thisprogressed to include her forehead and perioral areas. She felt as though there was dramatic change in September 2016, and she has a photo which shows much more widespread involvement of the skin darkening including her nose, forehead, perioral area. She denies experiencing redness or rash prior to this skin darkening. She is uncertain if she has photosensitivity but denies that she had any type of sunburn prior to her facial skin change. She reports using a bleaching cream many years ago but not recently. However, she reports using a variety of different makeups and facial products. She states that she left a cosmetics store with a large bag of different products within the past few months, trying to see if anything would help. She has had a Mirena IUD for the past 5 years, no additional hormonal medications. Her last pregnancies were over 20 years ago. Regarding her hydroxychloroquine, she was on this back in 2012 to 2013, states she just restarted it 4 to 5 months ago. She reports that she has had 1 chemical peel of the face, which was in January 2018, none prior. She states that her face felt red and irritated at the end of 2017, including sensations of being painful and itchy. She confirms that she does use a moisturizer with sunscreen on a daily basis. The following portions of the patient's history were reviewed and updated as appropriate: problem list, medications, allergies. PAST MEDICAL HISTORY: Patient Active Problem List Diagnosis ??? Arthritis Rheumatoid (HCC) ??? Arthritis Inflammatory (HCC) ??? Depression Major Recurrent Mild (HCC) ??? Anxiety Disorder Unspecified ??? 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 Mixed Irritable Bowel Syndrome ??? Vitiligo Left Unspecified Eyelid And Periocular Area OBJECTIVE PHYSICAL EXAMINATION General: The patient is alert, well-appearing, and in no distress. Skin: Examination performed of the face, chest, back, bilateral forearms and hands. Involving her face, she has ill-defined brown patches on her bilateral cheeks and extending to her gnosticism areas. Leftforehead with ill-defined and irregularly-shaped brown patches, and this also extends onto the glabella. On her nasal dorsum and nasal sidewalls there are almost geographic-appearing brown patches. Shealso has more confluent brown patches at her bilateral upper cutaneous lip as well as irregular brown patches on her chin and lower cutaneous lip. No pigmentary changes on her trunk or upper extremities. Eyes: I do not appreciate any darkening of the sclera. ASSESSMENT / PLAN #1 Extensive facial hyperpigmentation The patient has developed diffuse hyperpigmented patches involving her face, and, interestingly, in a geographic pattern on her nose. The differential diagnosis includes melasma, drug-induced hyperpigmentation (potentially secondary to hydroxychloroquine), postinflammatory hyperpigmentation (which coul d be due to photosensitivity), hyperpigmentation secondary to allergic contact dermatitis, lichen planus pigmentosus, or ochronosis. Interestingly, the patient has a history of a mixed connective tissue disease but is unclear whether she is photosensitive. I elected to start by obtaining a skin biopsyfrom her left upper forehead, with part of the biopsy sent for direct immunofluorescence. I will await biopsy results before recommending a treatment plan. I would also consider pursuing patch testing due to the potential for a coexistent allergic contact dermatitis, as well as consider MEDs to determine if she is photosensitive. I will be in touch with the patient when biopsy results return, and we will then develop a plan going forward. UNIVERSAL PROTOCOL: Procedural pause conducted to verify: correct patient identity, procedure to be performed, and as applicable, correct side and site, correct patient position, and availability of implants, special equipment, or special requirements. PROCEDURE(S): Punch biopsy. PROCEDURE INFORMATION: We explained the potential diagnosis and recommended that we obtain a biopsy. The risks and benefitsof the procedure were discussed, and the patient consented to these procedures. Using 1% lidocaine with epinephrine for local anesthesia, a 4-mm punch biopsy was obtained from the left forehead. Biopsysubmitted to Dermatopathology. Biopsy closed with a top layer of 6-0 nylon. The skin sutures need brittany removed in 5 to 7 days. Dressing was applied, and wound care instructions were explained. Biopsy results and any further recommendations will be communicated to the patient by letter. Patient given pamphlet [id number]. CONSENT Discussed the risks, benefits, alternatives, and the necessity of other members of the healthcare team participating in the procedure. All questions answered and consent given. PATIENT EDUCATION: Ready to learn. No apparent learning barriers were identified. Learning preferences include listening. Explained diagnosis and treatment plan; patient/guardian of patient expressed understanding of thecontent. A total of 40 minutes were spent [id number] with the patient during this encounter with at least 50% spent on counseling, discussing the plan and coordination of care. CT CT Job ID: [id number] CTION THERAPIST documented in this encounter Plan of Treatment Upcoming Encounters Date Type Specialty Care Team Description 01/08/2022 Appointment Radiology Julián Edouard M.D. [address] [place] [phone] (Wo rk) 01/08/2022 Ancillary Procedure Cardiovascular Disease Julián Edouard M.D. [address] [place] [phone] (Wo rk) 01/08/2022 Comprehensive Visit Thoracic Surgery Tess Raphael M.D. [address] [place] [phone] (Wo rk) documented as of this encounter Procedures Procedure Name Priority Date/Time Associated Comments Diagnosis CUTANEOUS DIRECT IFA, Routine 06/14/2018 3:04 Abnormality Pigm ent Results for this BIOPSY PM ADDICTION THERAPIST procedure are i n the results section. DERMATOPATHOLOGY Routine 06/14/2018 3:03 Abnormality Pigment R esults for this PM ADDICTION THERAPIST procedure are i n the results section. documented in this encounter Results Cutaneous Direct IFA, Biopsy (06/14/2018 3:04 PM ADDICTION THERAPIST) Component Value Ref Test Analysis Performed At [facility] Range Method Time Signature [facility] 9 11:46 LABORATORIES AM [facility] Report William Lambert, [facility] electronically Alex 9 11:46 LABORATORIES signed by [facility] Interpretation A. ??Left forehead, skin punch biopsy, Immunofluores cence: [facility] IgG: ??Negative 9 11:46 LABORATORIES IgM: ??Discontinuous weak granular basement membrane zone; AM [facility] few scattered cytoids [facility] IgA: ?? Negative C3: ?? Negative Fibrinogen: ??Patchy staining of connective tissue fibers IMPRESSION Negative study for a specific dermatosis (see comment) COMMENT These direct immunofluorescence findings are non-diagnostic and there is no specific evidence for lupus erythematosus, a lichenoid tissue reaction or immunobullous disease. ??A final definitive diagnosis should be based on correlation of the direct immunofluorescence findings with the clinical presentation, histopathological findings on examination of sections from formalin-fixed, paraffin-embedded tissue and other diagnostic tests. Comment: ----ADDITIONAL INFORMATION---- This test was developed using an analyte specific reagent. Its performance characteristics were determined by [facility] in a manner consistent with CLIA requirements. This test has not bee n cleared or approved by the U.S. Food and Drug Administration. Specimen (Source) Anatomical Collection Method Collection Time Re ceived Time Location / / Volume Laterality Skin (Left 06/14/2018 3:04 PM forehead) [facility] Narrative This result has an attachment that is no t available. Dayana Sweeney M.D. LAB PATH DERM ORDERABLES Performing Organization Address City/State/ZIP Code Phon e Number [facility] LABORATORIES - [address] [place], [place] [address] [place] [address] Dermatopathology (06/14/2018 3:[address] [facility]) Component Value Ref Test Analysis Performed At [facility] gist Range Method Time Signature 06/19/2018 [facility] 4:20 PM LABORATORIES - [facility] Report Richardson Sosa 06/19/2018 [facility] electronically Alex Medina 4:20 PM LABORATOR IES - signed by [facility] Gross Received in formalin labeled with the patient's name, 06/19/2018 [facility] Description medical record number, and left forehead is a 0.4 x 0.2 4:20 PM LABORATORIES - cm aragon-white portion of skin punch biopsy (half-punch), [facility] excised to a depth of 0.1 cm. ??There is a pale [facility] brown pigmented lesion diffusely in the surface. The specimen is submitted en toto in cassette A1. Grossed by DULCE. Disclaimer This test was developed and its performance characteri stics 06/19/2018 [facility] determined by [facility] in a manner consistent with CLIA 4:20 PM LABORATORIES - requirements. This test has not been cleared or approved b y [facility] the U.S. Food and Drug Administration. CAMPUS Addendum Melan A stain demonstrates normal number of melanocyte s at 06/21/2018 [facility] the basal layer of the epidermis. 2:18 P M LABORATORIES - Signed by Richardson Medina M.D. 06/21/2018 2:18 PM [facility] This test was developed and its performance CAMPUS characteristics determined by [facility] in a manner consistent with CLIA requirements. This test has not been cleared or approved by the U.S. Food and Drug Administration. Comment: REVISED RESULTS Interpretation FINAL DIAGNOSIS 06/21/2018 2:18 PM [facility] A. ??Left forehead, Skin punch biopsy: ??Increased basal ADDICTION THERAPIST LABORATORIES - keratinocyte melanin pigment and superficial dermal melanin [facility] COMMENT Clinical photo reviewed. ??Multiple tissue levels examined. [place] demonstrate the increased basal keratinocyte melanin and superficial dermal melanin deposition. Prussian blue is negative. ??These findings may be seen in melasma or possibly postinflammatory hyperpigmentation. Clinical and pathological correlation is recommended. Specimen (Source) Anatomical Collection Method Collection Time Re ceived Time Location / / Volume Laterality Skin (Left 06/14/2018 3:03 PM forehead) ADDICTION THERAPIST Narrative This result has an attachment that is no t available. Dayana Sweeney M.D. LAB PATH DERM ORDERABLES Performing Organization Address City/State/ZIP Code Phon e Number [facility] LABORATORIES - [address] [place], [place] [address] [facility] documented in this encounter Visit Diagnoses Diagnosis Abnormality Pigment - Primary Vitiligo Left Unspecified Eyelid And Per iocular Area documented in this encounter Additional Health Concerns Assessment Noted Time PHQ-9 Depression Total Score: 15 04/21/2018 1:00 PM CS T documented as of this encounter
--- OUTSIDE RECORDS SUMMARY | 2022-01-08 10:43 | XMS_ITS | Encounter Summary ---
:1970 Author Organization [facility] Address [address] [place] [address] Care Team Providers Name Role Phone Unavailable Primary Care Provider Unavailable Encounter Details Date Type Department Care Team Description 06/14/2018 Ancillary Procedure Department of Dermatology Social History [...] Appointment Radiology Julián Edouard M.D. [address] [place] [address] (Wo rk) 01/08/2022 Ancillary Procedure Cardiovascular Disease Julián Edouard M.D. [address] [place] [phone] (Wo rk) 01/08/2022 Comprehensive Visit Thoracic Surgery Tess Raphael M.D. [address] [place] [phone] (Wo rk) documented as of this encounter Procedures Procedure Name Priority Date/Time Associated Comments Diagnosis DERMATOLOGY IMAGE Routine 06/14/2018 12:00 Result s for this EXAM PM TOXICOLOGY TEACHER procedure are i n the results section. documented in this encounter Results Face 507-Dermatology Image Exam (06/14/2018 12:00 PM TOXICOLOGY TEACHER) Specimen (Source) Anatomical Collection Method Collection Time Re ceived Time Location / / Volume Laterality 06/14/2018 12:00 PM TOXICOLOGY TEACHER Narrative IIMS - 06/14/2018 3:44 PM TOXICOLOGY TEACHER This order has been created and auto-finalized [...]
--- OUTSIDE RECORDS SUMMARY | 2022-01-08 10:43 | XMS_ITS | Encounter Summary ---
:1970 Author Organization [facility] Address [address] [place] [address] Care Team Providers Name Role Phone Unavailable Primary Care Provider Unavailable Reason for Visit Reason Comments Med Management Outpatient (Routine) - Closed Specialty Diagnoses / Procedures Referred By Contact Refer red To Contact Pharmacy Diagnoses Clinical Research Exam [facility] - Pharmacogenomics eConsult M.DLennox [address] [place] [phone] Referral ID Status Reason Start Date Expiration Date Visits Requ ested Visits Authorized [id number] Closed 08/18/2018 08/18/2019 1 1 Encounter Details Date Type Department Care Team Description 08/21/2018 Medication Department of Tamir Butcher Clinical R esearch Management Medical Genetics in A, MLennoxDLennox Exam [place], [address] [place], [place] [address] [facility] [phone] [place], [place] [phone] (Work) [phone] Social History Tobacco Use Types Packs/Day Years [...] slept in a senior living (including now)? Sex Assigned at Date Recorded Female 01/25/2018 11:49 AM CDT documented as of this encounter Consult Notes Yassine Leal, Alexa.D., R.Ph. - 08/21/2018 10:00 AM CDT SUBJECTIVE REASON FOR CONSULT Patient was referred by Tamir Butcher M.D. as a participant in IRB # [id number] (Utility of Pharmacogenomic Testing in Patients with Gastrointestinal Motility Disorders). Patient was seen by a pharmacist for an initial visit approximately 6 months ago on 07/27/2017 with an approximate 3 month eConsult assessment on 04/17/2018. Purpose of this 6 month eConsult is to evaluate for any drug-gene interactions on recently started medications since the 3 month assessment. HISTORY OF PRESENT ILLNESS 1. Review of medication changes from 3 month assessment -The following were added since the last eConsult: doxazosin, hydroxychloroquine and duloxetine. ?? This patient was not personally interviewed or examined. The history and examination findings are based on the clinical documentation provided and/or discussion with a physician or provider who had personally interviewed and examined the patient. ?? OBJECTIVE LABS Please see pharmacogenomic test results dated 10/25/2017 in the electronic health record. ?? ASSESSMENT / PLAN 1. Recommendations based on medication changes from 3 month visit and pharmacogenomics -No changes recommended for the following medications doxazosin, hydroxychloroquine and duloxetine with respect to her PGx test results. ?? Yassine Leal Pharm.D., R.Ph. Clinical Pharmacist documented in this encounter Plan of Treatment Upcoming Encounters Date Type Specialty Care Team Description 01/08/2022 Appointment Radiology Julián Edouard M.D. [address] [place] [phone] (Wo rk) 01/08/2022 Ancillary Procedure Cardiovascular Disease Julián Edouard M.D. [address] [place] [phone] (Wo rk) 01/08/2022 Comprehensive Visit Thoracic Surgery Tess Raphael M.D. [address] [place] [phone] (Wo rk) documented as of this encounter Visit Diagnoses Diagnosis Clinical Research Exam documented in this encounter Additional Health Concerns Assessment Noted Time PHQ-9 Depression Total Score: 15 04/21/2018 1:00 PM BURAK T documented as of this encounter
--- OUTSIDE RECORDS SUMMARY | 2022-01-08 10:43 | XMS_ITS | Encounter Summary ---
:1970 Author Organization [facility] Address [address] [place] [address] Care Team Providers Name Role Phone Unavailable Primary Care Provider Unavailable Reason for Visit Reason Comments Med Refill Encounter Details Date Type Department Care Team Description 07/11/2018 Refill Division of Rheumatology in Smita Munson sa, APRN, Med Refill [place], [place] C.N.P. [address] [facility] [address] [place] [address] [place] [address] [phone] (Wo rk) Social History Tobacco Use Types [...] Miscellaneous Notes Telephone Encounter - Sawyer Nicholson RLennoxNLennox - 07/18/2018 8:14 AM CDT Per 07/10/18 phone call with patient, patient does not currently need the prednisone. Prednisone removed, fax sent to pharmacy regarding reason for denial. Telephone Encounter - Tash Real - 07/11/2018 10:39 AM CDT Prednisone 5 mg tablets documented in this encounter Plan of Treatment Upcoming Encounters Date Type Specialty Care Team Description 01/08/2022 Appointment Radiology Julián Edouard M.D. [address] [place] [phone] (Earl dowd) 01/08/2022 Ancillary Procedure Cardiovascular Disease Julián Edouard M.D. [address] [place] [phone] (Earl dowd) 01/08/2022 Comprehensive Visit Thoracic Surgery Tess Raphael M.D. [address] [place] [phone] (Earl dowd) documented as of this encounter Visit Diagnoses Not on filedocumented in this encounter Additional Health Concerns Assessment Noted Time PHQ-9 Depression Total Score: 15 04/21/2018 1:00 PM CS T documented as of this encounter
--- OUTSIDE RECORDS SUMMARY | 2022-01-08 10:43 | XMS_ITS | Encounter Summary ---
:1970 Author Organization [facility] Address [address] [place] [address] Care Team Providers Name Role Phone Unavailable Primary Care Provider Unavailable Reason for Referral Outpatient (Routine) - Closed Specialty Diagnoses / Procedures Referred By Contact Refer red To Contact Rheumatology Velma Munson APRN Shana [facility] C.N.P. [address] [place] [phone] Referral ID Status Reason Start Date Expiration Date Visits Requ ested Visits Authorized [id number] Closed 08/23/2018 08/23/2019 1 1 Reason for Visit Outpatient (Routine) - Closed Specialty Diagnoses / Procedures Referred By Contact Refer red To Contact Rheumatology Velma Munson APRN [facility] C.N.P. [address] [place] [phone] Referral ID Status Reason Start Date Expiration Date Visits Requ ested Visits Authorized [id number] Closed 05/19/2018 05/19/2019 1 1 Encounter Details Date Type Department Care Team Description 08/23/2018 Office Visit Division of Velma Munson Arthritis In flammatory (HCC) (Primary Dx); Rheumatology in LONG Schwartz, C.N.P. 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 - 08/23/2018 1:00 PM CDT SUBJECTIVE CHIEF COMPLAINT / REASON FOR VISIT Waleska Diaz is a 47 y.o. female who presents for follow up of inflammatory arthritis. HISTORY OF PRESENT ILLNESS Ms. Diaz is a 46-year-old female inflammatory arthritis with possible mixed connective [...] but on a reevaluation later by a blind hanger the diagnosis was refuted. 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 She was started on treatment with methotrexate, prednisone, and Plaquenil and remained on that initially for about five years and then went off it because she was doing relatively well.About two years ago, she resumed on it because she had recurrence of complaints of joint pain. She continued on methotrexate though at a lower dose than she previously had been on. The initial dose of methotrexate was 25 mg by mouth once per week, and her most recent dosing was 15 mg by mouth once perweek. She had previously been on Plaquenil 400 mg per day and this was subsequently reduced to 200 mg per day. About two months ago, on her own, she decided to discontinue it. She does not have a history of symptoms that are suggestive of serositis. In the past, she has had facial rash, but this has not recurred more recently. She reports being sensitive to the sun, having increased complaints of pain with sun exposure. She endorses joint pain and intermittent swelling involving the hands and feet. She does not have associated morning stiffness. Her biggest trigger for pain in the hands at this time is cold exposure. She reports being very sensitive to cold and has been told in the past that her hands are cold to the touch. A question of Raynaud's phenomenon was raised, but she has not had visible color changes with cold exposure. Today, I am following up with Ms. Diaz for inflammatory arthritis with possible mixed connectivetissue disease. She states that she continues to have left hip pain and continues to do physical therapy. She endorses hair loss, which is stable and dry eyes. She had a bad flare in June which required a pink prednisone burst and taper. During that flare all of her joints are bothering, she had fevers, chills, night sweats. She states that she continues have Raynaud's in her hands and feet with no ulcerations. Currently she is taking Cardura. She states since the big flare in June she was doing much better until the last week and a half where she has been having more fatigue. He continues to work with Dermatology on the causes of hyperpigmentation and is currently doing pat testing right now. She continues take Plaquenil 200 mg on odd days and 400 mg on even days. She denies any recent infections or hospitalizations. She denies any adverse side effects to Plaquenil. Rheumatoid Arthritis RF +: No CCP +: No AM stiffness: 40 minutes Current Symptoms: diarrhea (IBS), dry eyes, dry mouth, fatigue (stable), Raynaud's syndrome (no digital ulcers), nausea (IBS ), vomiting and heartburn (maybe just started a antiacid) Current Symptoms: no fever, no rash, no weight loss, no excessive bruising, no cough, no chest pain (feels tight on the sterum), no edema, no abdominal pain, no anorexia, no chills, no night sweats, nooral ulcers, no eye inflammation and no dyspnea [...] or skin spot. Negative for skin rash and breast lump. Eyes: Positive for visual problems (worsening). Respiratory: Negative for cough. Cardiovascular: Negative for chest pain, pressure or tightness (feels tight on the sterum) and pain in the calf muscles when walking. Gastrointestinal: Positive for constipation (IBS), diarrhea (IBS), heartburn (maybe just started a antiacid), nausea (IBS ) and vomiting. Negative for abdominal (belly) pain or cramping and anorexia. Musculoskeletal: Positive for back pain (low back), joint swelling (hands and feet) and muscle pain/stiffness (Knees and hands). Neurological: Positive for seizures (stable) and headaches (right temporal injury- but more manageable ). Negative for light-headedness (better since stopping Amitrpyline). Psychiatric/Behavioral: Positive for feeling nervous, anxious, or on edge in [...] hips are within functional limits bilaterally. Left lateral hip is tender. No trochanteric bursa tenderness. Lab: CBC with differential, creatinine, GFR, and AST all within normal limits. CRP and ESR are normal. Disease Activity Tenderness Right hand: 2nd MCP, 3rd MCP and 1st PIP Left hand: 2nd MCP and 3rd MCP RLE: knee LLE: hip and knee Swelling Right hand: 2nd MCP and 3rd MCP Left hand: 2nd MCP and 3rd MCP Tender joint count (0-28): 7 Swollen joint count (0-28): 4 ESR (mm/hr): 3 CRP (mg/L): 3 Health Assessment Questionnaire II (SHIN-II) Score 0-3: 0.2 Pain, 0-100: 30 Patient Global Assessment of Disease Activity, 0-100: 10 Provider Global Assessment, 0-100: 30 Composite Disease Activity Scores Disease Activity Score (KOHLER) 28-CRP(4): 3.64 Disease Activity Score (KOHLER) 28-ESR(4): 2.95 Simplified Disease Activity Index (SDAI): 15.3 Clinical Disease Activity Index (CDAI): 15 ASSESSMENT / PLAN #1 Arthritis Inflammatory (HCC) Minimial synovitis noted on exam today. We will continue Plaquenil to 400 mg on even days and 200 mgon odd days. Patient was in agreement with this plan. #2 Left hip pain Since we continue to deal with this left hip pain. I have ordered a left hip MRI to evaluate furtherthe tendons and joint. #3 High Risk Medication She will see a local early childhood teacher assistant for the Plaquenil eye screening in the [facility]. I will follow up with her in 3 months. I answered the patients questions to the best of my ability. The patient seemed pleased with our interaction. If she should have any additional questions or concerns. I have asked that she contact us at that time. documented in this encounter Plan of Treatment Upcoming Encounters Date Type Specialty Care Team Description 01/08/2022 Appointment Radiology Julián Edouard M.D. [address] [place] [phone] (Wo rk) 01/08/2022 Ancillary Procedure Cardiovascular Disease Julián Edouard M.D. [address] [place] [phone] (Wo rk) 01/08/2022 Comprehensive Visit Thoracic Surgery Tess Raphael M.D. [address] [place] [phone] (Wo rk) Scheduled Referrals Name Type Priority Associated Order Schedule Diagnoses Rheumatology office Outpatient Referral Routine E xpected: visit (clinic) 11/22/2018 (Approximate), Expires: 08/23/2021 documented as of this encounter Results AST (Aspartate Aminotransferase) (01/02/2019 9:45 AM CDT) [facility] gist Method Time Signature Aspartate 17 8 - 43 01/02/2019 Aminotransferase U/L 12:22 PM CDT (AST), S Specimen Anatomical Collection Method Collection Time Receive d Time (Source) Location / / Volume Laterality Blood (Blood, 01/02/2019 9:45 AM 01/03/20 19 Venous) CDT 10:06 AM CDT Velma Munson APRN, C.N.P. LAB BLOOD ADD-ON Performing Organization Address City/[facility]/ZIP Code Phon e Number [facility] - [address] [place] [address] [facility] Creatinine with Estimated GFR (01/02/2019 9:45 AM CDT) athologist Signature Creatinine 0.83 0.59 - 01/02/2019 1.04 mg/dL 12:22 PM CDT eGFR-Non 84 >=60 01/02/2019 Black/ mL/min/BSA 12:22 PM CDT Bur[place]ian Comment: ----ADDITIONAL INFORMATION---- Estimated GFR calculated using the 2009 CKD_EPI creatinine equation. eGFR-Black/ >90 >=60 mL/min/BSA 2018 12:22 PM CDT Comment: ----ADDITIONAL INFORMATION---- Estimated GFR calculated using the 2009 CKD_EPI creatinine equation. Specimen Anatomical Collection Method Collection Time Receive d Time (Source) Location / / Volume Laterality Blood (Blood, 01/02/2019 9:45 AM 01/03/20 Venous) CDT 10:06 AM CDT Jorge Polo APRNN.PLennox LAB BLOOD ADD-ON Performing Organization Address City/[facility]/ZIP Code Phon e Number [facility] - [address] [place] [address] [facility] CRP (C-Reactive Protein) (01/02/2019 9:45 AM CDT) athologist Signature C-Reactive <3.0 <=8.0 mg/L 01/02/2019 Protein (CRP), 12:22 PM CDT S Specimen Anatomical Collection Method Collection Time Receive d Time (Source) Location / / Volume Laterality Blood (Blood, 01/02/2019 9:45 AM 01/03/20 19 Venous) CDT 10:06 AM CDT Jorge Polo APRNN.P. LAB BLOOD ADD-ON Performing Organization Address City/[facility]/ZIP Code Phon e Number [facility] - [address] [place] [address] [facility] Sedimentation Rate (01/02/2019 9:45 AM CDT) Analysis Performed At [facility] logist Time Signature Sedimentation 1 0 - 29 01/02/2019 Rate, B mm/1 h 11:18 AM CDT Specimen Anatomical Collection Method Collection Time Receive d Time (Source) Location / / Volume Laterality Blood (Blood, 01/02/2019 9:45 AM 01/03/20 19 Venous) CDT 10:06 AM CDT Velma Munson APRN, C.N.P. LAB BLOOD ADD-ON Performing Organization Address City/State/ZIP Code Phon e Number [facility] - [address] [place], [place] [address] [facility] CBC with Differential, Blood (01/02/2019 9:45 AM [...] Venous) CDT 10:06 AM CDT Jorge Polo APRNNLennoxPLennox LAB BLOOD ADD-ON Performing Organization Address City/State/ZIP Code Phon e Number [facility] - [address] [place] [address] [facility] documented in this encounter Visit Diagnoses Diagnosis Arthritis Inflammatory (HCC) - Primary Pain Hip Left documented in this encounter Additional Health Concerns Assessment Noted Time PHQ-9 Depression Total Score: 15 04/21/2018 1:00 PM CS T documented as of this encounter
--- OUTSIDE RECORDS SUMMARY | 2022-01-08 10:43 | XMS_ITS | Encounter Summary ---
:1970 Author Organization [facility] Address [address] [place] [address] Care Team Providers Name Role Phone Unavailable Primary Care Provider Unavailable Reason for Visit Reason Comments Med Refill Encounter Details Date Type Department Care Team Description 06/30/2018 Refill Division of Rheumatology in [facility] Tiburcio welsh M.D. Med Refill [place], [place] [address] [facility] [address] [place] [address] [place] [address] [phone] Social History Tobacco Use Types Packs/Day Years [...] More than 4 times per year 11/16/2021 jewish services? Do you belong to any clubs [...] or slept in a retirement (including now)? Sex Assigned at Date Recorded Female 01/25/2018 11:49 AM CDT documented as of this encounter Miscellaneous Notes Telephone Encounter - Nano Gomes R.N. - 07/10/2018 10:15 AM CDT INFORMATION DISCUSSED Patient reports that she had finished her Prednisone taper and is not needing a prednisone refill atthis time. Patient reports that she does need an appointment set up with Velma Munson CNP. PLAN Disposition/Recommendation:Patient was transferred to the appointment desk to schedule a provider appointment. Education: patient/caller able to teach back Caller agreeable to plan of care: yes The following references were used: nursing clinical judgement Telephone Encounter - Sarah Stewart R.N. - 07/05/2018 9:27 AM CST Refill request for Prednisone: Last visit: 05/19/2018 with Velma Munson APRN, CNP. Last labs: Patient on no Rheumatological medications requiring lab monitoring. Contacted patient via portal to verify with her what dose she is currently taking and to confirm herpharmacy with her. Once we hear back from her, can set up and send the refill to her pharmacy. SPOOLER documented in this encounter Plan of Treatment Upcoming Encounters Date Type Specialty Care Team Description 01/08/2022 Appointment Radiology Julián Edouard M.D. [address] [place] [phone] (Wo rk) 01/08/2022 Ancillary Procedure Cardiovascular Disease Julián Edouard M.D. [address] [place] [phone] (Wo rk) 01/08/2022 Comprehensive Visit Thoracic Surgery Tess Raphael M.D. [address] [place] [phone] (Wo rk) documented as of this encounter Visit Diagnoses Not on filedocumented in this encounter Additional Health Concerns Assessment Noted Time PHQ-9 Depression Total Score: 15 04/21/2018 1:00 PM CS T documented as of this encounter
--- OUTSIDE RECORDS SUMMARY | 2022-01-08 10:43 | XMS_ITS | Encounter Summary ---
:1970 Author Organization [facility] Address [address] [place] [address] Care Team Providers Name Role Phone Unavailable Primary Care Provider Unavailable Encounter Details Date Type Department Care Team Description 08/12/2018 Documentation Department of Vascular Newton Powell, [facility] [place] [address] [email or web address] [address] [place] [phone] (Wo rk) Social History Tobacco Use Types [...] documented as of this encounter Progress Notes Newton Powell M.D. - 08/12/2018 9:35 AM CDT I spoke to Ms. Diaz this morning. She is no longer on prazosin (Minipres). I have refilled her Rx for Cardura 1 mg qHS. documented in this encounter Plan of Treatment Upcoming Encounters Date Type Specialty Care Team Description 01/08/2022 Appointment Radiology Julián Edouard M.D. [address] [place] [phone] (Wo nile) 01/08/2022 Ancillary Procedure Cardiovascular Disease Julián Edouard M.D. [address] [place] [phone] (Earl dowd) 01/08/2022 Comprehensive Visit Thoracic Surgery Tess Raphael M.D. [address] [place] [address] (Earl dowd) documented as of this encounter Visit Diagnoses Not on filedocumented in this encounter Additional Health Concerns Assessment Noted Time PHQ-9 Depression Total Score: 15 04/21/2018 1:00 PM CS T documented as of this encounter
--- OUTSIDE RECORDS SUMMARY | 2022-01-08 10:43 | XMS_ITS | Encounter Summary ---
:[address] [facility] Address [address] [place] [address] Care Team Providers Name Role Phone Unavailable Primary Care Provider Unavailable Encounter Details Date Type Department Care Team Description 08/12/2018 Orders Only Department of Vascular Newton Powell , [facility] [place] [address] [facility] [address] [place] [phone] (Wo rk) Social History Tobacco Use Types [...] 01/08/2022 Appointment Radiology Julián Edouard M.D. [address] [place] [phone] (Wo rk) 01/08/2022 Ancillary Procedure Cardiovascular Disease Julián Edouard M.D. [address] [place] [phone] (Wo rk) 01/08/2022 Comprehensive Visit Thoracic Surgery Tess Raphael M.D. [address] [place] [phone] (Wo rk) documented as of this encounter Visit Diagnoses Not on filedocumented in this encounter Additional Health Concerns Assessment Noted Time PHQ-9 Depression Total Score: 15 04/21/2018 1:00 PM CS T documented as of this encounter
--- OUTSIDE RECORDS SUMMARY | 2022-01-08 10:43 | XMS_ITS | Encounter Summary ---
:1970 Author Organization [facility] Address [address] [place] [address] Care Team Providers Name Role Phone Unavailable Primary Care Provider Unavailable Encounter Details Date Type Department Care Team Description 06/14/2018 Clinical Communication Division of Velma Munson Rheumatology in , MD UROLOGIST, C.N.P. [place], [place] [address] [facility] [address] [place] [phone] Social History Tobacco Use Types Packs/Day Years [...] Telephone Encounter - Nano Gomes R.N. - 06/15/2018 12:19 PM CHAMBER MAGISTRATE INFORMATION DISCUSSED Patient was relayed per Dr. Wiley that she should increase prednisone to 30 mg (but have her split dose to 15 mg twice daily) for 3 days, 20 mg (10 mg twice daily) for 3 days, 15 mg daily for 3 days, then back to baseline dose of 10 mg daily. She was informed that she needs to contact Velma Munson on Tuesday to see if she needs more Plaquenil to treat the inflammatory arthritis. Patient reports sheis needing a new Prednisone prescription sent to her pharmacy. PLAN Disposition/Recommendation:Patient will contact Velma Munson CNP on Tuesday when she returns for further direction with her Plaquenil. provider notified Education: patient/caller able to teach back Caller agreeable to plan of care: yes The following references were used: nursing clinical judgement BER MAGISTRATE Telephone Encounter - Nano Gomes R.N. - 06/15/2018 10:34 AM CHAMBER MAGISTRATE INFORMATION DISCUSSED Patient reports that that her joint pain symptoms have not improved. She reports that her joint painis in her neck, shoulders, hands, fingers, neck, knees and feet. She reports her pain is the worse in her hands. She reports swelling in her hands and feet. Patient reports that she did have a tradol injection on Tuesday that relieved her symptoms for 2 hours. She reports that Velma did give her Prednisone which she started last Tuesday but she did not feel like she had any relieve even on the 20 mg which she did for 3 days. Patient has tried warm baths, motrin, muscle relaxer with no relief. She iscurrently taking 10 mg daily of Prednisone. She is also taking plaquenil 400 mg on even days and 200mg daily on odd days.Patient is wanting other recommendations for her joint pain. PLAN Disposition/Recommendation: provider notified Education: patient/caller able to teach back Caller agreeable to plan of care: yes The following references were used: nursing clinical judgement BER MAGISTRATE Telephone Encounter - Velma Munson APRN, C.N.P. - 06/14/2018 4:05 PM CHAMBER MAGISTRATE Please call the patient to verify symptoms. I gave her a prednisone burst and taper last week, with no improvement. BER MAGISTRATE Telephone Encounter - Shanti Hinson - 06/14/2018 3:21 PM CST You prescribed prednisone on Tuesday to the patient and she stated today that its not helping with the pain. If anything it has gotten worse. She had a toradal shot on Tuesday as well and only lasted fora few hours. She isn't sure what to use to help with the pain. Warm baths, motrin, muscle relaxer are not helping either. Please advise as to what next steps she should take. BER MAGISTRATE documented in this encounter Plan of Treatment Upcoming Encounters Date Type Specialty Care Team Description 01/08/2022 Appointment Radiology Julián Edouard M.D. [address] [place] [phone] ([place]) 01/08/2022 Ancillary Procedure Cardiovascular Disease Julián Edouard M.D. [address] [place] [address] [phone] ([place]) 01/08/2022 Comprehensive Visit Thoracic Surgery Tess Raphael M.D. [address] [place] [phone] (Wo rk) documented as of this encounter Visit Diagnoses Not on filedocumented in this encounter Additional Health Concerns Assessment Noted Time PHQ-9 Depression Total Score: 15 04/21/2018 1:00 PM CS T documented as of this encounter
--- OUTSIDE RECORDS SUMMARY | 2022-01-08 10:43 | XMS_ITS | Encounter Summary ---
:1970 Author Organization [facility] Address [address] [place] [address] Care Team Providers Name Role Phone Unavailable Primary Care Provider Unavailable Encounter Details Date Type Department Care Team Description 08/22/2018 Hospital Encounter Department of Velma Munson Laboratory Medicine L, LONG, C.N .P. Inflammatory (HCC) and Pathology, [address] [place] [address] in [facility] [phone] [place] [phone] [place] [address] (Work) [place], [place] [phone] (Fax) [phone] Social History Tobacco Use Types Packs/Day Years [...] More than 4 times per year 11/16/2021 [employer]? Do you belong to any clubs [...] Appointment Radiology Julián Edouard M.D. [address] [place] [phone] (Earl dowd) 01/08/2022 Ancillary Procedure Cardiovascular Disease Julián Edouard M.D. [address] [place] [phone] (Earl dowd) 01/08/2022 Comprehensive Visit Thoracic Surgery Tess Raphael M.D. [address] [place] [phone] (Earl dowd) documented as of this encounter Procedures Procedure Name Priority Date/Time Associated Comments Diagnosis SEDIMENTATION RATE, B Routine 08/22/2018 3:25 Arthritis Res ults for this PM CDT Inflammatory (HCC) procedure are in the results section. CBC WITH DIFFERENTIAL, B Routine 08/22/2018 3:25 Arthritis Results for this PM CDT Inflammatory (HCC) procedure are in the results section. C-REACTIVE PROTEIN Routine 08/22/2018 3:25 Arthritis Result s for this (CRP), S/P PM CDT Inflammatory (HCC) procedure are in the results section. ASPARTATE Routine 08/22/2018 3:25 Arthritis Results for this AMINOTRANSFERASE (AST), PM CDT Inflammatory (HCC ) procedure are in S/P the results section. CREATININE WITH EGFR, Routine 08/22/2018 3:25 Arthritis Res ults for this S/P PM CDT Inflammatory (HCC) procedure are in the results section. documented in this encounter Results AST (Aspartate Aminotransferase) (08/22/2018 3:25 PM CDT) Patholo gist Method Time Signature Aspartate 17 8 - 43 08/22/2018 [facility] Aminotransferase U/L 4:25 PM CDT LABORATORIE S - (AST), S [facility] Specimen Anatomical Collection Method Collection Time Receive d Time (Source) Location / / Volume Laterality Blood (Blood, 08/22/2018 3:25 PM 08/23/19 19 3:46 Venous) CDT PM CDT Eric Polo APRNPLennox LAB BLOOD ADD-ON Performing Organization Address City/State/ZIP Code Phon e Number [facility] - [address] [place], [place] [address] [facility] Creatinine with Estimated GFR (08/22/2018 3:25 PM CDT) Analysis Performed At Path logist Time Signature Creatinine 0.86 0.59 - 08/22/2018 [facility] 1.04 mg/dL 4:25 PM CDT LABORATORIES - [facility] eGFR-Non 81 >=60 08/22/2018 [facility] Black/ mL/min/BSA 4:25 PM CDT LABORATORIES - [facility] Comment: ----ADDITIONAL INFORMATION---- Estimated GFR calculated using the 2009 CKD_EPI creatinine equation. eGFR-Black/ >90 >=60 mL/min/BSA 08/22/2018 4:25 [facility] Lao PM CDT LABORATORIES - [facility] Comment: ----ADDITIONAL INFORMATION---- Estimated GFR calculated using the 2009 CKD_EPI creatinine equation. Specimen Anatomical Collection Method Collection Time Receive d Time (Source) Location / / Volume Laterality Blood (Blood, 08/22/2018 3:25 PM 08/23/19 19 3:46 Venous) CDT PM CDT Jorge Polo APRNN.P. LAB BLOOD ADD-ON Performing Organization Address City/[facility] Code Phon e Number [facility] - [address] [place] [phone] [facility] CRP (C-Reactive Protein) (08/22/2018 3:25 PM CDT) P athologist Signature C-Reactive 3.2 <=8.0 mg/L 08/22/2018 [facility] Protein (CRP), 4:25 PM CDT LABORATORIES - [facility] Specimen Anatomical Collection Method Collection Time Receive d Time (Source) Location / / Volume Laterality Blood (Blood, 08/22/2018 3:25 PM 08/23/19 19 3:46 Venous) CDT PM CDT Karlene Polo APRN.N.P. LAB BLOOD ADD-ON Performing Organization Address City/[facility]/ZIP Code Phon e Number [facility] - [address] [place] [phone] [facility] Sedimentation Rate (08/22/2018 3:25 PM CDT) [facility] Method Time Signature Sedimentation 2 0 - 29 08/22/2018 [facility] Rate, B mm/1 h 5:00 PM CDT [facility] Specimen Anatomical Collection Method Collection Time Receive d Time (Source) Location / / Volume Laterality Blood (Blood, 08/22/2018 3:25 PM 08/23/19 19 3:46 Venous) CDT PM CDT Velma Munson APRN, Karlene.N.P. LAB BLOOD ADD-ON Performing Organization Address City/[facility] Code Phon e Number [facility] - [address] [place] [phone] [facility] CBC with Differential, Blood (08/22/2018 3:25 PM CDT) [facility] gist Method Time Signature Hemoglobin 14.6 11.6 - 08/22/2018 [facility] 15.0 g/dL 3:53 PM CDT [facility] Hematocrit 43.9 35.5 - 08/22/2018 [facility] 44.9 % 3:53 PM CDT LABORATORIES [facility] Erythrocytes 5.13 3.92 - 08/22/2018 [facility] 5.13 3:53 PM CDT LABORATORIES - x10(12)/L [facility] MCV 85.6 78.2 - 08/22/2018 [facility] 97.9 fL 3:53 PM CDT LABORATORIES - [facility] RBC Distrib Width 13.7 12.2 - 08/22/2018 [facility] 16.1 % 3:53 PM CDT LABORATORIES - [facility] Platelet Count 256 157 - 371 08/22/2018 [facility] x10(9)/L 3:53 PM CDT LABORATORIES - [facility] Leukocytes 7.4 3.4 - 9.6 08/22/2018 [facility] x10(9)/L 3:53 PM CDT LABORATORIES - [facility] Neutrophils 5.16 1.56 - 08/22/2018 [facility] 6.45 3:53 PM CDT LABORATORIES - x10(9)/L [facility] Lymphocytes 1.73 0.95 - 08/22/2018 [facility] 3.07 3:53 PM CDT LABORATORIES - x10(9)/L [facility] Monocytes 0.43 0.26 - 08/22/2018 [facility] 0.81 3:53 PM CDT LABORATORIES - x10(9)/L [facility] Eosinophils 0.03 0.03 - 08/22/2018 [facility] 0.48 3:53 PM CDT LABORATORIES - x10(9)/L [facility] Basophils 0.03 0.01 - 08/22/2018 [facility] 0.08 3:53 PM CDT LABORATORIES - x10(9)/L [facility] Specimen Anatomical Collection Method Collection Time Receive d Time (Source) Location / / Volume Laterality Blood (Blood, 08/22/2018 3:25 PM 08/23/19 19 3:46 Venous) CDT PM CDT Velma Munson APRN, C.N.P. LAB BLOOD ADD-ON Performing Organization Address City/State/ZIP Code Phon e Number [facility] - [address] [place], [place] [address] [facility] documented in this encounter Visit Diagnoses Diagnosis Arthritis Inflammatory (HCC) documented in this encounter Additional Health Concerns Assessment Noted Time PHQ-9 Depression Total Score: 15 04/21/2018 1:00 PM CS T documented as of this encounter
--- OUTSIDE RECORDS SUMMARY | 2022-01-08 10:44 | XMS_ITS | Encounter Summary ---
:1970 Author Organization [facility] Address [address] [place] [address] Care Team Providers Name Role Phone Unavailable Primary Care Provider Unavailable Encounter Details Date Type Department Care Team Description 04/05/2018 Hospital Encounter Department of Gigi Mcbride ve Disorder Laboratory Medicine Alex Mccauley and Pathology, [place] [address] [place] [address], in [place], [place] [phone] [place] [address] [place], [place] (Work) [phone] Social History Tobacco Use [...] or slept in a mcc (including now)? Sex Assigned at Date Recorded Female 01/25/2018 11:49 AM CDT documented as of this encounter Medications at Time of Discharge Medication Sig Dispensed Refills Start Date End Date acetaminophen (TYLENOL) Take 500 mg by 0 500 mg tablet mouth as needed. dextroamphetamine-amphetam Take 45 mg by mouth 0 ine (ADDERALL) 30 mg every morning. tablet hydrOXYzine (ATARAX) 25 mg Take 25 mg by mouth 0 tablet every 6 (six) hours as needed for itching. SUMAtriptan (IMITREX Inject under the 0 5 STATDOSE) 6 mg/0.5 mL skin as needed. injection pen Uses 2-4x/month for migraine. Uses once and then once again after 1h if no effect. amitriptyline (ELAVIL) 100 Take 2 tablets (200 60 tablet 1 03/29/2018 04/10/2018 mg tablet mg total) by mouth at bedtime. busPIRone (BUSPAR) 5 mg Take 15 mg by mouth 0 04/10/2018 tablet as needed. Only takes am dose 2-3x week per report on 07/27/17. cetirizine (ZyrTEC) 10 mg Take 10 mg by mouth 0 04/30/2020 tablet daily as needed for allergies (allergy triggers--animal dander/dust/cotton) . cholecalciferol (VITAMIN Take 50,000 Units 0 08/23/2018 D3) 50,000 Unit capsule by mouth once a week. Patient completing 8 weekly doses for repleting, Has 4 doses remaining as of 07-27-17. doxazosin (CARDURA) 1 mg Take 1 mg by mouth 0 05/17/2018 tablet at bedtime. DULoxetine (CYMBALTA) 20 Take 40 mg by mouth 0 05/17/[address] capsule at bedtime. fluticasone (FLONASE) 50 Administer 1 spray 0 04/30/2020 mcg/actuation nasal spray into affected nostril(s) as needed. hydroxychloroquine Take 1 tablet (200 90 tablet 1 8 05/19/2018 (PLAQUENIL) 200 mg tablet mg total) by mouth daily. levonorgestrel (MIRENA) 20 1 Device by 0 06/30/19 16 04/30/2020 mcg/24 hr (5 years) IUD intrauterine route. lidocaine (XYLOCAINE) 2 % Take 15 mL by mouth 0 0 06/24/2016 08/23/2018 mucosal solution as needed. lisinopril Take 10 mg by mouth 0 05/27 (PRINIVIL,ZESTRIL) 10 mg every morning. tablet predniSONE (DELTASONE) 5 Take 5-20 mg by 0 06/09/2018 mg tablet mouth daily. Take 4 tablets daily for 3 days, then 3 tablets daily for 3 days, and 2 tablets daily for 3 days, then 1 tablet daily for 3 days. zolpidem (AMBIEN) 10 mg Take 10 mg by mouth 0 05/27/2020 tablet as needed. documented as of this encounter Progress Notes Gigi Mcbride M.D. - 04/05/2018 11:59 PM CST This level of amitriptyline plus nortriptyline is supra-therapeutic. Given the patient's report of drug side-effects, including xerostomia and light-headedness on arising, please advise her to cut the dose of amitriptyline back to 150 mg qhs - at least until her follow-up visit with Dr. Jackson in psychiatry next week. AL ASSISTING INSTRUCTOR documented in this encounter Plan of Treatment Upcoming Encounters Date Type Specialty Care Team Description 01/08/2022 Appointment Radiology Julián Edouard M.D. [address] [place] [phone] (Earl dowd) 01/08/2022 Ancillary Procedure Cardiovascular Disease Julián Edouard M.D. [address] [place] [phone] (Earl dowd) 01/08/2022 Comprehensive Visit Thoracic Surgery Tess Raphael M.D. [address] [place] [phone] (Wo rk) documented as of this encounter Procedures Procedure Name Priority Date/Time Associated Comments Diagnosis AMITRIPTYLINE AND Routine 04/05/2018 12:51 Depressive Disorder Results for this NORTRIPTYLINE LEVEL, S PM DENTAL ASSISTING INSTRUCTOR proce dure are in the results section. documented in this encounter Results (ABNORMAL) Amitriptyline and Nortriptyline Level (04/05/2018 12:51 PM DENTAL ASSISTING INSTRUCTOR) [facility] gist Method Time Signature Amitriptyline 161 Not applicable 04/06/2018 [facility] ng/mL 6:18 PM DENTAL ASSISTING INSTRUCTOR [address] [facility] Nortriptyline 75 70 - 170 ng/mL 04/06/2018 [facility] 6:18 PM DENTAL ASSISTING INSTRUCTOR [facility] Amitriptyline and 236 (H) 80 - 200 ng/mL 04/06/2018 [facility] Nortriptyline 6:18 PM DENTAL ASSISTING INSTRUCTOR [address] [facility] Comment: ----ADDITIONAL INFORMATION---- This test was developed and its performa nce characteristics determined by [facility] in a manner consistent with CLIA requirements. This test has not been cleared or approved by the [place] d and Drug Administration. Specimen Anatomical Collection Method Collection Time Receive d Time (Source) Location / / Volume Laterality Blood (Blood, 04/05/2018 12:51 04/06/2018 7:53 Venous) PM DENTAL ASSISTING INSTRUCTOR AM DENTAL ASSISTING INSTRUCTOR Gigi Mcbride M.D. LAB BLOOD NON ADD-ON Performing Organization Address City/State/ZIP Code Phon e Number [facility] [address] [place], [place] [address] [facility] documented in this encounter Visit Diagnoses Diagnosis Depressive Disorder documented in this encounter Additional Health Concerns Assessment Noted Time PHQ-9 Depression Total Score: 7 08/19/2017 3:59 PM CDT documented as of this encounter
--- OUTSIDE RECORDS SUMMARY | 2022-01-08 10:44 | XMS_ITS | Encounter Summary ---
:1970 Author Organization [facility] Address [address] [place] [address] Care Team Providers Name Role Phone Unavailable Primary Care Provider Unavailable Reason for Referral Outpatient (Routine) - Closed Specialty Diagnoses / Procedures Referred By Contact Refer red To Contact Rheumatology Velma Munson APRN, [facility] [address] [place] [phone] Referral ID Status Reason Start Date Expiration Date Visits Requ ested Visits Authorized [id number] Closed 05/19/2018 05/19/2019 1 1 [facility] Reason for Visit Appointment Request (Routine) - Closed Specialty Diagnoses / Procedures Referred By Contact Refer red To Contact Rheumatology Velma Munson APRN, C.N.P. [address] [place] [phone] Referral ID Status Reason Start Date Expiration Date Visits Requ ested Visits Authorized [id number] Closed 05/10/2018 05/10/2019 1 1 Encounter Details Date Type Department Care Team Description 05/19/2018 Office Visit Division of Velma Munson Low Maddison k (Primary Dx); Rheumatology in LONG Schwartz, C.N.P. Arthritis Inflammatory (HCC); [place], [place] [address] [facility] High Risk Medication [address] [place] [phone] Social History Tobacco Use Types Packs/Day Years [...] or slept in a long-term (including now)? Sex Assigned at Date Recorded Female 01/25/2018 11:49 AM CDT documented as of this encounter Last Filed Vital Signs Vital Sign Reading Time Taken Comments Blood Pressure 125/89 05/19/2018 7:54 AM PULVERIZER TENDER Pulse 74 05/19/2018 7:54 AM PULVERIZER TENDER Temperature 36.9 ??C (98.4 ??F) 05/19/2018 7:54 AM PULVERIZER TENDER Respiratory Rate - - Oxygen Saturation - - Inhaled Oxygen Concentration - - Weight 60.4 kg (133 lb 2.5 oz) 05/19/2018 7:54 AM PULVERIZER TENDER Height 158.3 cm (5' 2.32) 05/19/2018 7:54 AM PULVERIZER TENDER Body Mass Index 24.1 05/19/2018 7:54 AM PULVERIZER TENDER documented in this encounter Progress Notes Velma Munson APRN, C.N.P. - 05/19/2018 8:00 AM CST SUBJECTIVE CHIEF COMPLAINT / REASON FOR VISIT [...] but on a reevaluation later by a city secretary the diagnosis was refuted. She later established care with a city secretary at [facility] who made a formal diagnosis of mixed [...] loss, which is stable and dry eyes. Her low back, hands and knees are painful. She states that she continues have Raynaud's in her hands and feet with no ulcerations. Currently she is not taking Cardura due to starting Minipress for sleep this week. She was seen by her primary care provider for chest tightness and it was thought it could be acid reflux. She states that over thelast 4 months she did have a couple of bad days that the pain was so bad that she had to just lay zunilda warm tub to relieve it. She also endorses a left thumb tremor that started last week. She continues take Plaquenil 200 mg daily. She denies any recent infections or hospitalizations. Rheumatoid Arthritis RF +: No CCP +: No AM stiffness: 40 minutes Current Symptoms: diarrhea (IBS), dry eyes, dry mouth, fatigue (stable), Raynaud's syndrome (no digital ulcers), nausea (IBS ) and heartburn (maybe just started a antiacid) Current Symptoms: no fever, no rash, no weight loss, no excessive bruising, no cough, no chest pain (feels tight on the sterum), no edema, no vomiting, no abdominal pain, no anorexia, no chills, [...] diarrhea (IBS), heartburn (maybe just started a antiacid) and nausea (IBS ). Negative for abdominal (belly) pain or cramping, anorexia and vomiting. Musculoskeletal: Positive for back pain (low back), joint swelling (hands and feet) and muscle pain/stiffness (Knees and hands). Neurological: Positive for seizures (stable) and headaches (Worsening since Minipress). Negative forlight-headedness (better since stopping Amitrpyline). Psychiatric/Behavioral: Positive for [...] and hips are within functional limits bilaterally. Lab: CBC with differential, creatinine, GFR, and [...] ASSESSMENT / PLAN #1 Arthritis Inflammatory (HCC) Active synovitis noted on exam today. I will have increase Plaquenil to 400 mg on even days and 200 mg on odd days. Patient was in agreement with this plan. #2 Low back pain I have ordered lumbar and pelvis x-rays to be done to evaluate for DJD vs inflammatory arthritis. #3 High Risk Medication She will see a local biofuels operations manager for the Plaquenil eye screening in the [facility]. I will follow up with her in 3 months. I answered the patients questions to the best of my ability. The patient seemed pleased with our interaction. If she should have any additional questions or concerns. I have asked that she contact us at that time. ERIZER TENDER documented in this encounter Plan of Treatment Upcoming Encounters Date Type Specialty Care Team Description 01/08/2022 Appointment Radiology Julián Edouard M.D. [address] [place] [phone] (Wo rk) 01/08/2022 Ancillary Procedure Cardiovascular Disease Julián Edouard M.D. [address] [place] [phone] (Earl dowd) 01/08/2022 Comprehensive Visit Thoracic Surgery Tess Raphael M.D. [address] [place] [phone] (Earl dowd) Scheduled Referrals Name Type Priority Associated Order Schedule Diagnoses Rheumatology office Outpatient Referral Routine E xpected: visit (clinic) 08/17/2018 (Approximate), Expires: 05/19/2021 documented as of this encounter Results AST (Aspartate Aminotransferase) (08/22/2018 3:25 PM CDT) [facility] gist Method Time Signature Aspartate 17 8 - 43 08/22/2018 [facility] Aminotransferase U/L 4:25 PM CDT LABORATORIE S - (AST), S [facility] Specimen Anatomical Collection Method Collection Time Receive d Time (Source) Location / / Volume Laterality Blood (Blood, 08/22/2018 3:25 PM 08/23/19 19 3:46 Venous) CDT PM CDT Velma Munson APRN, C.N.P. LAB BLOOD ADD-ON Performing Organization Address City/State/ZIP Code Phon e Number [facility] LABORATORIES - 200 [place], [place] [address] [facility] Creatinine with Estimated GFR (08/22/2018 3:25 PM CDT) Analysis Performed At Patho logist Time Signature Creatinine 0.86 0.59 - 08/22/2018 [facility] 1.04 mg/dL 4:25 PM CDT LABORATORIES - [facility] eGFR-Non 81 >=60 08/22/2018 [facility] Black/ mL/min/BSA 4:25 PM CDT LABORATORIES - [facility] Comment: ----ADDITIONAL INFORMATION---- Estimated GFR calculated using the 2009 CKD_EPI creatinine equation. eGFR-Black/ >90 >=60 mL/min/BSA 08/22/2018 4:25 [facility] CDT LABORATORIES - [facility] Comment: ----ADDITIONAL INFORMATION---- Estimated GFR calculated using the 2009 CKD_EPI creatinine equation. Specimen Anatomical Collection Method Collection Time Receive d Time (Source) Location / / Volume Laterality Blood (Blood, 08/22/2018 3:25 PM 08/23/19 19 3:46 Venous) CDT PM CDT Velma Munson APRN, C.N.P. LAB BLOOD ADD-ON Performing Organization Address City/[facility]/ZIP Code Phon e Number [facility] LABORATORIES - 200 [place] [phone] [facility] CRP (C-Reactive Protein) (08/22/2018 3:25 PM CDT) P athologist Signature C-Reactive 3.2 <=8.0 mg/L 08/22/2018 [facility] Protein (CRP), 4:25 PM CDT LABORATORIES - [facility] Specimen Anatomical Collection Method Collection Time Receive d Time (Source) Location / / Volume Laterality Blood (Blood, 08/22/2018 3:25 PM 08/23/19 19 3:46 Venous) CDT PM CDT Velma Munson APRN, C.N.P. LAB BLOOD ADD-ON Performing Organization Address City/State/ZIP Code Phon e Number [facility] LABORATORIES - [address] [place] [address] [facility] Sedimentation Rate (08/22/2018 3:25 PM CDT) Patholo gist Method Time Signature Sedimentation 2 0 - 29 08/22/2018 [facility] Rate, B mm/1 h 5:00 PM CDT LABORATORIES - [facility] Specimen Anatomical Collection Method Collection Time Receive d Time (Source) Location / / Volume Laterality Blood (Blood, 08/22/2018 3:25 PM 08/23/19 19 3:46 Venous) CDT PM CDT Jorge Polo APRNNLennoxPLennox LAB BLOOD ADD-ON Performing Organization Address City/State/ZIP Code Phon e Number [facility] LABORATORIES - [address] [place], [place] [address] [facility] CBC with Differential, Blood (08/22/2018 3:25 PM CDT) [facility] Method Time Signature Hemoglobin 14.6 11.6 - 08/22/2018 [facility] 15.0 g/dL 3:53 PM CDT LABORATORIES - [facility] Hematocrit 43.9 35.5 - 08/22/2018 [facility] 44.9 % 3:53 PM CDT LABORATORIES - [facility] Erythrocytes 5.13 3.92 - 08/22/2018 [facility] 5.13 3:53 PM CDT LABORATORIES - x10(12)/L [facility] MCV 85.6 78.2 - 08/22/2018 [facility] 97.9 fL 3:53 PM CDT LABORATORIES - [facility] RBC Distrib Width 13.7 12.2 - 08/22/2018 [facility] 16.1 % 3:53 PM CDT LABORATORIES - [facility] Platelet Count 256 157 - 371 08/22/2018 [facility] x10(9)/L 3:53 PM CDT LABORATORIES - [facility] Leukocytes 7.4 3.4 - 9.6 08/22/2018 [facility] x10(9)/L 3:53 PM CDT LABORATORIES - [facility] Neutrophils 5.16 1.56 - 08/22/2018 [facility] 6.45 3:53 PM CDT LABORATORIES - x10(9)/L [facility] Lymphocytes 1.73 0.95 - 08/22/2018 [facility] 3.07 3:53 PM CDT LABORATORIES - x10(9)/L [facility] Monocytes 0.43 0.26 - 08/22/2018 [facility] 0.81 3:53 PM CDT LABORATORIES - x10(9)/L [facility] Eosinophils 0.03 0.03 - 08/22/2018 [facility] 0.48 3:53 PM CDT LABORATORIES - x10(9)/L [facility] Basophils 0.03 0.01 - 08/22/2018 [facility] 0.08 3:53 PM CDT LABORATORIES - x10(9)/L [facility] Specimen Anatomical Collection Method Collection Time Receive d Time (Source) Location / / Volume Laterality Blood (Blood, 08/22/2018 3:25 PM 08/23/19 19 3:46 Venous) CDT PM CDT Velma Munson APRN, Karlene.N.P. LAB BLOOD ADD-ON Performing Organization Address City/State/ZIP Code Phon e Number [facility] LABORATORIES - [address] [place], [place] [address] [facility] DX Lumbar Spine 2-3 Views (05/19/2018 10:23 AM PULVERIZER TENDER) Anatomical Region Laterality Modality Lumbar Spine, Musculoskeletal RST LOS, Neuroradiology N/A Digital Radiography ARZ LOS, Muskuloskeletal FLA LOS Specimen (Source) Anatomical Collection Method Collection Time Re ceived Time Location / / Volume Laterality 05/19/2018 10:30 AM PULVERIZER TENDER Impressions 05/19/2018 10:30 AM PULVERIZER TENDER IMPRESSION: ??Mild multilevel degenerative spondylosis. Slight wedging of T12. Cholecystectomy clips. IUD. Adjustable g astric band. Narrative 05/19/2018 10:30 AM PULVERIZER TENDER EXAM: ??DX LUMBAR SPINE 2-3 VIEWS Procedure Note Richardson Packer M.D. - 05/19/2018For matting of this note might be different from the original. EXAM: DX LUMBAR SPINE 2-3 VIEWS IMPRESSION: Mild multilevel degenerative spondylosis. Slight wedging of T12. Cholecystectomy clips. IUD. Adjustable g astric band. Velma Munson APRN, Karlene.N.P. IMG DIAGNOSTIC IMAGING P ROCEDURES DX Hips and Pelvis Bilateral 5+ Views (05/19/2018 10:22 AM PULVERIZER TENDER) Anatomical Region Laterality Modality Lower Extremity, Pelvis, Hip, Musculoskeletal RST LOS, Bilat eral Digital Radiography Musculoskeletal ARZ LOS, Muskuloskeletal FLA LOS Specimen (Source) Anatomical Collection Method Collection Time Re ceived Time Location / / Volume Laterality 05/19/2018 10:28 AM PULVERIZER TENDER Impressions 05/19/2018 10:29 AM PULVERIZER TENDER IMPRESSION: ??Minimal scattered degenerative changes of the pelvis and both hips. Right femoral neck bone island. IUD. Lap aroscopic adjustable gastric band, port and tube is partially seen. Narrative 05/19/2018 10:29 AM PULVERIZER TENDER EXAM: ??DX HIPS AND PELVIS BILATERAL 5+ VIEWS Procedure Note Richardson Packer M.D. - 05/19/2018For matting of this note might be different from the original. EXAM: DX HIPS AND PELVIS BILATERAL 5+ EWS IMPRESSION: Minimal scattered degenerati ve changes of the pelvis and both hips. Right femoral neck bone island. IUD. Lap aroscopic adjustable gastric band, port and tube is partially seen. Velma Munosn APRN, C.N.P. IMG DIAGNOSTIC IMAGING P ROCEDURES documented in this encounter Visit Diagnoses Diagnosis Pain Low Back Unspecified - Primary Arthritis Inflammatory (HCC) High Risk Medication Pain Low Back Unspecified Pain Low Back Unspecified documented in this encounter Additional Health Concerns Assessment Noted Time PHQ-9 Depression Total Score: 15 04/21/2018 1:00 PM CS T documented as of this encounter
--- OUTSIDE RECORDS SUMMARY | 2022-01-08 10:44 | XMS_ITS | Encounter Summary ---
:1970 Author Organization [facility] Address [address] [place] [address] Care Team Providers Name Role Phone Unavailable Primary Care Provider Unavailable Reason for Referral Outpatient (Routine) - Closed Specialty Diagnoses / Procedures Referred By Contact Refer red To Contact Dermatology Diagnoses Vitiligo Left Unspecified Eyelid And Periocular Area [facility]aria [facility] C.[facility] [address] [place], [place] [phone] Referral ID Status Reason Start Date Expiration Date Visits V isits Requested Authorized [id number] Closed Specialty 04/13/2018 04/13/2019 1 1 Services Required D MARKETING COORDINATOR Reason for Visit Reason Onset Date Comments Discuss patient 04/13/2018 Encounter Details Date Type Department Care Team Description 04/13/2018 Clinical Communication Division of Velma Munson patient Rheumatology in LONG Schwartz, C.N.P. [place], [place] [address] [place] [address] [address] [place] [phone] Social History Tobacco Use Types Packs/Day Years [...] 11/16/2021 organizations such as yarsani groups, unions, fraBazari or athletic groups, or school groups? How [...] or slept in a intermediate (including now)? Sex Assigned at Date Recorded Female 01/25/2018 11:49 AM CDT documented as of this encounter Miscellaneous Notes Telephone Encounter - Velma Munson APRN, C.N.P. - 04/13/2018 5:09 PM FIELD MARKETING COORDINATOR I spoke with Dr. Rivas about the increasing vitiligo to the patient's face. I will contact the patient and have her see our information technology advisor. Velma D MARKETING COORDINATOR Telephone Encounter - Violetta Mendieta - 04/13/2018 11:[address] Rivas would like you to call him this afternoon at [phone]. He saw patient this morning and would like to discuss her with you. D MARKETING COORDINATOR documented in this encounter Plan of Treatment Upcoming Encounters Date Type Specialty Care Team Description 01/08/2022 Appointment Radiology Julián Edouard M.D. [address] [place] [phone] (Wo rk) 01/08/2022 Ancillary Procedure Cardiovascular Disease Julián Edouard M.D. 200 [place] [phone] (Wo rk) 01/08/2022 Comprehensive Visit Thoracic Surgery Tess Raphael M.D. 200 [place] [phone] (Wo rk) Scheduled Referrals Name Type Priority Associated Diagnoses Order S chedule Dermatology - Outpatient Referral Routine Vitiligo Left Expect ed: General consult Unspecified Eyelid 2017 (clinic) And Periocular Area (Approxi mate), Expires: 04/13/2021 documented as of this encounter Visit Diagnoses Diagnosis Vitiligo Left Unspecified Eyelid And Per iocular Area - Primary documented in this encounter Additional Health Concerns Assessment Noted Time PHQ-9 Depression Total Score: 7 08/19/2017 3:59 PM CDT documented as of this encounter
--- OUTSIDE RECORDS SUMMARY | 2022-01-08 10:44 | XMS_ITS | Encounter Summary ---
:1970 Author Organization [facility] Address [address] [place] [address] Care Team Providers Name Role Phone Unavailable Primary Care Provider Unavailable Encounter Details Date Type Department Care Team Description 04/12/2018 Clinical Communication Division of [place], Gastroenterology in [place], [place] 210 [facility] [address] [place] [phone] Social History Tobacco Use Types Packs/Day Years [...] 01/08/2022 Appointment Radiology Julián Edouard M.D. [address] [place] [phone] (Wo rk) 01/08/2022 Ancillary Procedure Cardiovascular Disease Julián Edouard M.D. [address] [place] [phone] (Wo rk) 01/08/2022 Comprehensive Visit Thoracic Surgery Tess Raphael M.D. [address] [place] [phone] (Wo rk) documented as of this encounter Visit Diagnoses Not on filedocumented in this encounter Additional Health Concerns Assessment Noted Time PHQ-9 Depression Total Score: 7 08/19/2017 3:59 PM CDT documented as of this encounter
--- OUTSIDE RECORDS SUMMARY | 2022-01-08 10:44 | XMS_ITS | Encounter Summary ---
:1970 Author Organization [facility] Address [address] [place] [address] Care Team Providers Name Role Phone Unavailable Primary Care Provider Unavailable Reason for Visit Appointment Request (Routine) - Closed Specialty Diagnoses / Procedures Referred By Contact Refer red To Contact Rheumatology Referral ID Status Reason Start Date Expiration Date Visits Requ ested Visits Authorized [id number] Closed 01/16/2018 01/16/2019 1 1 Encounter Details Date Type Department Care Team Description 01/25/2018 Office Visit Division of Velam Munson Arthritis In flammatory (HCC) (Primary Dx); Rheumatology in L, FOOD COUNTER WORKER, C.N.P. Pain Hip Left; [place], [place] [address] [facility] High Risk Medication [address] [place] [phone] Social History Tobacco Use Types Packs/Day Years [...] to pay for the very basics like [employer] hat hard 11/16/2021 food, housing, medical care, [...] Sign Reading Time Taken Comments Blood Pressure 132/91 01/25/2018 11:17 AM CDT Pulse 89 01/25/2018 11:17 AM CDT Temperature 37 ??C (98.6 ??F) 01/25/2018 11:17 AM CDT Respiratory Rate - - Oxygen Saturation - - Inhaled Oxygen Concentration - - Weight 61.2 kg (134 lb 14.7 oz) 01/25/2018 11:17 AM CDT Height 158 cm (5' 2.21) 01/25/2018 11:17 AM CDT Body Mass Index 24.52 01/25/2018 11:17 AM CDT documented in this encounter Progress Notes Velma Munson, LONG, C.N.P. - 01/25/2018 11:15 AM CDT SUBJECTIVE CHIEF COMPLAINT / [...] but on a reevaluation later by a french folding machine operator the diagnosis was refuted. She later established care with a french folding machine operator at [facility] who made a formal diagnosis of [...] She states that she continues to have increased left hip pain. She also states that her left leg has become very tight and the pain will wake her up at night. She had a MRI done in August which demonstrated left gluteus minimus tendinopathy and 5 mm segment of high-grade linear tearing ofthe anterosuperior aspect of the labrum. She endorses increased hair loss, mouth sores, and dry eyes. Her hands, wrists, and elbows are not as aching is a once were. SShe states that she continues haveRaynaud's in her hands and feet with no ulcerations. She has Raynaud's and was started on Cardura 1 mg daily, but is currently not taking this at this time. She denies any recent infections or hospitalizations. Previous Reports Reviewed:lab reports and office notes The following portions of the patient's history were reviewed and updated as appropriate: family history, medical history, social history, surgical history and problem list. REVIEW OF SYSTEMS Pertinent positives and negatives as documented in the above history of present illness. REVIEW OF SYSTEMS OBJECTIVE PHYSICAL EXAM Physical Exam General: alert, [...] Right hand: 2nd MCP, 3rd MCP and 4th MCP Left hand: 2nd MCP, 3rd MCP and 4th MCP LLE: hip Swelling Right hand: 2nd MCP, 3rd MCP and 4th MCP Left hand: 2nd MCP, 3rd MCP and 4th MCP Tender joint count (0-28): 6 Swollen joint count (0-28): 6 ESR (mm/hr): 3 CRP (mg/L): 3 Provider Global Assessment, 0-100: 30 ASSESSMENT / PLAN #1 Arthritis Inflammatory (HCC) Active synovitis noted on exam today. I will have her restart Plaquenil 200 mg daily. As winter comes [facility] Patient was in agreement with this plan. #2 Pain Hip Left No synovitis or tenosynovitis noted on MRI. I believe she would benefit from another round of Physical therapy. Patient would prefer to see someone in [place] for this. #3 High Risk Medication At this time I will not have her do the Plaquenil eye exam until we know she will benefit from it. I will follow up with her in 6 months. I answered the patients questions to the best of my ability. The patient seemed pleased with our interaction. If she should have any additional questions or concerns. I have asked that she contact us at that time. documented in this encounter Plan of Treatment Upcoming Encounters Date Type Specialty Care Team Description 01/08/2022 Appointment Radiology Julián Edouard M.D. [address] [place] [phone] (Wo rk) 01/08/2022 Ancillary Procedure Cardiovascular Disease Julián Edouard M.D. [address] [place] [phone] (Wo rk) 01/08/2022 Comprehensive Visit Thoracic Surgery Tess Raphael M.D. [address] [place] [phone] (Wo rk) documented as of this encounter Visit Diagnoses Diagnosis Arthritis Inflammatory (HCC) - Primary Pain Hip Left High Risk Medication documented in this encounter Additional Health Concerns Assessment Noted Time PHQ-9 Depression Total Score: 7 08/19/2017 3:59 PM CDT documented as of this encounter
--- OUTSIDE RECORDS SUMMARY | 2022-01-08 10:44 | XMS_ITS | Encounter Summary ---
:1970 Author Organization [facility] Address [address] [place] [address] Care Team Providers Name Role Phone Unavailable Primary Care Provider Unavailable Encounter Details Date Type Department Care Team Description 08/23/2017 Hospital Encounter HX NO MAPPING Social History Tobacco Use Types Packs/Day Years Used Date Smoking Tobacco: Never Alcohol Habits Answer Date Recorded [...] or relatives? How often do you attend bahai or More than 4 times per year 11/16/2021 zoroastrian services? Do you belong to any clubs or No 11/16/2021 organizations such as bahai groups, unions, fraternal or athletic groups, or [...] Sig Dispensed Refills Start Date End Date SUMAtriptan (IMITREX Inject under the skin 0 03/02 STATDOSE) 6 mg/0.5 mL as needed. Uses injection pen 2-4x/month for migraine. Uses once and then once again after 1h if no effect. fluticasone (FLONASE) 50 Administer 1 spray 0 04/30/2020 mcg/actuation nasal into affected spray nostril(s) as needed. levonorgestrel (MIRENA) 1 Device by 0 06/30/2015 04/30/2020 20 mcg/24 hr (5 years) intrauterine route. IUD lidocaine (XYLOCAINE) 2 Take 15 mL by mouth 0 08/23/2018 % mucosal solution as needed. documented as of this encounter Plan of Treatment Upcoming Encounters Date Type Specialty Care Team Description 01/08/2022 Appointment Radiology Julián Edouard M.D. [address] [place] [phone] (Wo rk) 01/08/2022 Ancillary Procedure Cardiovascular Disease Julián Edouard M.D. [address] [place] [phone] (Earl dowd) 01/08/2022 Comprehensive Visit Thoracic Surgery Tess Raphael M.D. [address] [place] [phone] (Earl dowd) documented as of this encounter Visit Diagnoses Not on filedocumented in this encounter Additional Health Concerns Assessment Noted Time PHQ-9 Depression Total Score: 7 08/19/2017 3:59 PM CDT documented as of this encounter
--- OUTSIDE RECORDS SUMMARY | 2022-01-08 10:44 | XMS_ITS | Encounter Summary ---
:1970 Author Organization [facility] Address [address] [place] [address] Care Team Providers Name Role Phone Unavailable Primary Care Provider Unavailable Encounter Details Date Type Department Care Team Description 08/22/2017 Orders Only Division of Velma Munson Arthritis In formerly [facility] Rheumatology in , LONG C.N.[facility]ox ([facility]) [place], [place] [address] [facility] [address] [place] [phone] Social History Tobacco Use Types Packs/Day Years [...] Appointment Radiology Julián Edouard M.D. [address] [place] [address] (Wo rk) 01/08/2022 Ancillary Procedure Cardiovascular Disease Julián Edouard M.D. [address] [place] [phone] (Wo rk) 01/08/2022 Comprehensive Visit Thoracic Surgery Tess Raphael M.D. [address] [place] [phone] (Wo rk) documented as of this encounter Visit Diagnoses Diagnosis Arthritis Inflammatory (HCC) documented in this encounter Additional Health Concerns Assessment Noted Time PHQ-9 Depression Total Score: 7 08/19/2017 3:59 PM CDT documented as of this encounter
--- OUTSIDE RECORDS SUMMARY | 2022-01-08 10:44 | XMS_ITS | Encounter Summary ---
:1970 Author Organization [facility] Address [address] [place] [address] Care Team Providers Name Role Phone Unavailable Primary Care Provider Unavailable Encounter Details Date Type Department Care Team Description 01/09/2018 Clinical Communication Division of Velma Munson Rheumatology in , DOCTOR OF DENTAL MEDICINE, C.N.P. [place], [place] [address] [facility] [address] [place] [phone] Social History Tobacco Use Types Packs/Day Years [...] slept in a nursing home (including now)? Sex Assigned at Date Recorded Female 01/25/2018 11:49 AM CDT documented as of this encounter Miscellaneous Notes Telephone Encounter - Cam Espinoza R.N. - 01/16/2018 10:01 AM CDT INFORMATION DISCUSSED Patient was contacted to ask her to send MRI results. She thought that she had it done here at [facility],but then remembered it was done at an outside facility. She will have those sent. She notes continuing headaches, with joint pain from hips down, rating a 3-5/10 on average, with some instances being 10/10. She notes that she missed her 11/11/17 appointment due to abdominal surgery with complications of infection in [place]. She does want a follow up with Velma and was transferred to appointment office. She had no further questions. PLAN Disposition/Recommendation: patient transferred to the appointment desk, provider notified and self-care appropriate at this time Education: patient/caller able to teach back Caller agreeable to plan of care: yes The following references were used: nursing clinical judgement Telephone Encounter - Velma Munson APRN, C.N.P. - 01/13/2018 8:41 AM CDT Please call patient and have her forward the MRI, we never received the imaging and she did not showup to her follow up appointment. Velma Telephone Encounter - Suyapa Franco - 01/11/2018 2:23 PM CDT Patient called again- states she is in a lot of pain and does not know what to do Telephone Encounter - Christi Martinez - 01/09/2018 8:10 AM CDT Pt saw velma munson in July. Would like to get results of the MRI of her hip and find out the next steps. Please call her at [phone] before 1pm today or [phone] after 1pm today. Khushboo Berry documented in this encounter Plan of Treatment Upcoming Encounters Date Type Specialty Care Team Description 01/08/2022 Appointment Radiology Julián Edouard M.D. [address] [place] [phone] (Earl dowd) 01/08/2022 Ancillary Procedure Cardiovascular Disease Julián Edouard M.D. [address] [place] [phone] (Earl dowd) 01/08/2022 Comprehensive Visit Thoracic Surgery Tess Raphael M.D. [address] [place] [phone] (Earl dowd) documented as of this encounter Visit Diagnoses Not on filedocumented in this encounter Additional Health Concerns Assessment Noted Time PHQ-9 Depression Total Score: 7 08/19/2017 3:59 PM CDT documented as of this encounter
--- OUTSIDE RECORDS SUMMARY | 2022-01-08 10:44 | XMS_ITS | Encounter Summary ---
:1970 Author Organization [facility] Address [address] [place] [address] Care Team Providers Name Role Phone Unavailable Primary Care Provider Unavailable Reason for Visit Reason Comments Med Management Outpatient (Routine) - Closed Specialty Diagnoses / Procedures Referred By Contact Refer red To Contact Pharmacy Diagnoses [facility] - Pharmacogenomics eConsult M.DLennox [address] [place] [phone] Referral ID Status Reason Start Date Expiration Date Visits Requ ested Visits Authorized [id number] Closed 04/17/2018 04/17/2019 1 1 Encounter Details Date Type Department Care Team Description 04/17/2018 Medication Department of Tamir Butcher Clinical R esearch Management Medical Genetics in A, MLennoxDLennox Exam [place], [address] [place] [address] [place] [phone] [place], [place] [phone] (Work) [phone] Social History Tobacco Use Types Packs/Day Years [...] of this encounter Consult Notes Yassine Leal, Alxea.D., R.Ph. - 04/17/2018 1:30 PM CST SUBJECTIVE REASON FOR CONSULT Patient was referred by Tamir Butcher M.D. as a participant in IRB # [id number] (Utility of Pharmacogenomic Testing in Patients with Gastrointestinal Motility Disorders). Patient was seen by a pharmacist for an initial visit approximately 3 months ago on 07/27/2017. HISTORY OF PRESENT ILLNESS 1. Review of medication changes from initial visit -No medication changes documented. This patient was not personally interviewed or examined. The history and examination findings are based on the clinical documentation provided and/or discussion with a physician or provider who had personally interviewed and examined the patient. OBJECTIVE LABS Please see pharmacogenomic test results dated 10/25/2017 in the electronic health record. ASSESSMENT / PLAN 1. Recommendations based on medication changes from initial visit and Pharmacogenomics - Monitor adverse effects of amitriptyline. Dose reduction would be recommended if patient reports major adverse effects. 2. Potential drug-drug interactions -Concurrent use of HYDROXYZINE/HYDROXYCHLOROQUINE and AMITRIPTYLINE may result in increased risk of QT interval prolongation. 3. Historical recommendations based on pharmacogenomics from 3 months ago: -1) Suggest weekly phone alarm to remember weekly vitamin D dose due to difficulties remembering 2)Recommend daily vitamin D 1000 units daily after high dose weekly repletion x 8, given her historyof Vit D deficiency 3) Recommend pre-medication with anti-histamine diphenhydramine 30min if opiate pain reliever neededin future and consideration of use of low histamine release opiate (e.g. avoidance of morphine, codeine; given history of itching with administration) 4) Recommend routine at least weekly assessment of BP and journaling to keep track of blood pressureeffect and help ascertain future need for titration The patient's current medication list has been reviewed and evaluated with respect to these pharmacogenomic results. Future medications may be of significance for these results, and medications metabolized through these pathways should be closely monitored. Yassine Leal Pharm.D., R.Ph. Clinical Pharmacist E MACHINE OPERATOR documented in this encounter Plan of Treatment Upcoming Encounters Date Type Specialty Care Team Description 01/08/2022 Appointment Radiology Julián Edouard M.D. [address] [place] [address] (Wo rk) 01/08/2022 Ancillary Procedure Cardiovascular Disease Julián Edouard M.D. [address] [place] [phone] (Wo rk) 01/08/2022 Comprehensive Visit Thoracic Surgery Tess Raphael M.D. [address] [place] [address] (Wo rk) documented as of this encounter Visit Diagnoses Diagnosis Clinical Research Exam documented in this encounter Additional Health Concerns Assessment Noted Time PHQ-9 Depression Total Score: 15 04/21/2018 1:00 PM CS T documented as of this encounter
--- OUTSIDE RECORDS SUMMARY | 2022-01-08 10:44 | XMS_ITS | Encounter Summary ---
:1970 Author Organization [facility] Address [address] [place] [address] Care Team Providers Name Role Phone Unavailable Primary Care Provider Unavailable Reason for Visit Reason Onset Date Comments Pre-visit Testing Orders 05/10/2018 Encounter Details Date Type Department Care Team Description 05/10/2018 Clinical Division of Velma Munson Pre-visit Te sting Communication Rheumatology in L, BULK PALLET BUILDER, C.N.P. Orders [place], [place] [address] [place] [address] [place] [phone] [phone] Social History Tobacco Use Types Packs/Day Years [...] or slept in a fdc (including now)? Sex Assigned at Date Recorded Female 01/25/2018 11:49 AM CDT documented as of this encounter Miscellaneous Notes Telephone Encounter - Velma Munson APRN, C.N.P. - 05/10/2018 5:02 PM RF TECHNICIAN Lab order signed. Velma TECHNICIAN Telephone Encounter - Maddy Drummond - 05/10/2018 4:22 PM RF TECHNICIAN I have pended labs for you when patient returns to see you on 05/19- she will be doing the labs on 05/17 when here for other appointments Thank you Maddy TECHNICIAN documented in this encounter Plan of Treatment Upcoming Encounters Date Type Specialty Care Team Description 01/08/2022 Appointment Radiology Julián Edouard M.D. [address] [place] [phone] (Earl dowd) 01/08/2022 Ancillary Procedure Cardiovascular Disease Julián Edouard M.D. [address] [place] [phone] (Earl dowd) 01/08/2022 Comprehensive Visit Thoracic Surgery Tess Raphael M.D. [address] [place] [phone] (Earl dowd) documented as of this encounter Results CBC with Differential, Blood (05/17/2018 3:16 PM RF TECHNICIAN) [facility] gist Method Time Signature Hemoglobin 13.8 11.6 - 05/17/2018 [facility] 15.0 g/dL 3:52 PM RF TECHNICIAN LABORATORIES - [facility] Hematocrit 41.4 35.5 - 05/17/2018 [facility] 44.9 % 3:52 PM RF TECHNICIAN LABORATORIES - [facility] Erythrocytes 4.94 3.92 - 05/17/2018 [facility] 5.13 3:52 PM RF TECHNICIAN LABORATORIES - x10(12)/L [facility] MCV 83.8 78.2 - 05/17/2018 [facility] 97.9 fL 3:52 PM RF TECHNICIAN LABORATORIES - [facility] RBC Distrib Width 13.2 12.2 - 05/17/2018 [facility] 16.1 % 3:52 PM RF TECHNICIAN LABORATORIES - [facility] Platelet Count 260 157 - 371 05/17/2018 [facility] x10(9)/L 3:52 PM RF TECHNICIAN LABORATORIES - [facility] Leukocytes 7.9 3.4 - 9.6 05/17/2018 [facility] x10(9)/L 3:52 PM RF TECHNICIAN LABORATORIES - [facility] Neutrophils 5.55 1.56 - 05/17/2018 [facility] 6.45 3:52 PM RF TECHNICIAN LABORATORIES - x10(9)/L [facility] Lymphocytes 1.79 0.95 - 05/17/2018 [facility] 3.07 3:52 PM RF TECHNICIAN LABORATORIES - x10(9)/L [facility] Monocytes 0.49 0.26 - 05/17/2018 [facility] 0.81 3:52 PM RF TECHNICIAN LABORATORIES - x10(9)/L [facility] Eosinophils <0.03 0.03 - 05/17/2018 [facility] 0.48 3:52 PM RF TECHNICIAN LABORATORIES - x10(9)/L [facility] Basophils 0.03 0.01 - 05/17/2018 [facility] 0.08 3:52 PM RF TECHNICIAN LABORATORIES - x10(9)/L [facility] Specimen Anatomical Collection Method Collection Time Receive d Time (Source) Location / / Volume Laterality Blood (Blood, 05/17/2018 3:16 PM 05/17/19 19 3:35 Venous) RF TECHNICIAN PM RF TECHNICIAN Velma Munson APRN, C.N.P. LAB BLOOD ADD-ON Performing Organization Address City/State/ZIP Code Phon e Number [facility]ATORIES - [address] Creatinine with Estimated GFR (05/17/2018 3:16 PM RF TECHNICIAN) Analysis Performed At Patho logist Time Signature Creatinine 0.90 0.59 - 05/17/2018 [facility] 1.04 mg/dL 4:15 PM RF TECHNICIAN LAB[facility]ATORIES - [facility] eGFR-Non 77 >=60 05/17/2018 [facility] Black/ mL/min/BSA 4:15 PM RF TECHNICIAN LABORATORIES - [facility] Comment: ----ADDITIONAL INFORMATION---- Estimated GFR calculated using the 2009 CKD_EPI creatinine equation. eGFR-Black/ 89 >=60 mL/min/BSA 05/17/2018 4:15 [facility] Uzbek RF TECHNICIAN LAB[facility]ATORIES - [facility] Comment: ----ADDITIONAL INFORMATION---- Estimated GFR calculated using the 2009 CKD_EPI creatinine equation. Specimen Anatomical Collection Method Collection Time Receive d Time (Source) Location / / Volume Laterality Blood (Blood, 05/17/2018 3:16 PM 05/17/19 19 3:34 Venous) RF TECHNICIAN PM RF TECHNICIAN Velma Munson APRN, C.N.P. LAB BLOOD ADD-ON Performing Organization Address City/State/ZIP Code Phon e Number [facility] - [address] CRP (C-Reactive Protein) (05/17/2018 3:16 PM RF TECHNICIAN) P athologist Signature C-Reactive <3.0 <=8.0 mg/L 05/17/2018 [facility] Protein (CRP), 4:15 PM RF TECHNICIAN LABORATORIES - [facility] Specimen Anatomical Collection Method Collection Time Receive d Time (Source) Location / / Volume Laterality Blood (Blood, 05/17/2018 3:16 PM 05/17/19 19 3:34 Venous) RF TECHNICIAN PM RF TECHNICIAN Velma Munson APRN, C.N.P. LAB BLOOD ADD-ON Performing Organization Address City/State/[facility] Code Phon e Number [facility] - [address] AST (Aspartate Aminotransferase) (05/17/2018 3:16 PM RF TECHNICIAN) Patholo gist Method Time Signature Aspartate 17 8 - 43 05/17/2018 [facility] Aminotransferase U/L 4:15 PM RF TECHNICIAN LABORATORIE S - (AST), S [facility] Specimen Anatomical Collection Method Collection Time Receive d Time (Source) Location / / Volume Laterality Blood (Blood, 05/17/2018 3:16 PM 05/17/19 19 3:34 Venous) RF TECHNICIAN PM RF TECHNICIAN Karlene Polo APRN.N.P. LAB BLOOD ADD-ON Performing Organization Address City/[facility]/ZIP Code Phon e Number [facility]IES - [address] [place] [address] [facility] Sedimentation Rate (05/17/2018 3:16 PM RF TECHNICIAN) [facility] gist Method Time Signature Sedimentation 5 0 - 29 05/17/2018 [facility] Rate, B mm/1 h 4:52 PM RF TECHNICIAN LAB[facility]ATORIES - [facility] Specimen Anatomical Collection Method Collection Time Receive d Time (Source) Location / / Volume Laterality Blood (Blood, 05/17/2018 3:16 PM 05/17/19 19 3:35 Venous) RF TECHNICIAN PM RF TECHNICIAN Velma Munson APRN, C.N.P. LAB BLOOD ADD-ON Performing Organization Address City/[facility]/ZIP Code Phon e Number [facility]IES - [address] [place] [address] [facility] documented in this encounter Visit Diagnoses Diagnosis Arthritis Inflammatory (HCC) - Primary documented in this encounter Additional Health Concerns Assessment Noted Time PHQ-9 Depression Total Score: 15 04/21/2018 1:00 PM CS T documented as of this encounter
--- OUTSIDE RECORDS SUMMARY | 2022-01-08 10:44 | XMS_ITS | Encounter Summary ---
:1970 Author Organization [facility] Address [address] [place] [address] Care Team Providers Name Role Phone Unavailable Primary Care Provider Unavailable Encounter Details Date Type Department Care Team Description 05/17/2018 Hospital Encounter Department of Velma Munson Laboratory Medicine L, LONG, C.N .P. Inflammatory (HCC) and Pathology, [address] [place] [address] in [facility] [phone] [place] [phone] [place] [address] (Work) [place], [place] [phone] (Fax) [phone] Social History Tobacco Use Types Packs/Day Years [...] More than 4 times per year 11/16/2021 [employer] services? Do you belong to any clubs [...] mg total) by mouth daily. levonorgestrel (MIRENA) 1 Device by 0 06/30/2015 [...] Appointment Radiology Julián Edouard M.D. [address] [place] [address] (Wo rk) 01/08/2022 Ancillary Procedure Cardiovascular Disease Julián Edouard M.D. [address] [place] [phone] (Wo rk) 01/08/2022 Comprehensive Visit Thoracic Surgery Tess Raphael M.D. [address] [place] [phone] (Earl rk) documented as of this encounter Procedures Procedure Name Priority Date/Time Associated Comments Diagnosis SEDIMENTATION RATE, B Routine 05/17/2018 3:16 Arthritis Res ults for this PM TRAVEL AGENCY MANAGER Inflammatory (HCC) procedure are in the results section. CBC WITH DIFFERENTIAL, B Routine 05/17/2018 3:16 Arthritis Results for this PM TRAVEL AGENCY MANAGER Inflammatory (HCC) procedure are in the results section. C-REACTIVE PROTEIN Routine 05/17/2018 3:16 Arthritis Result s for this (CRP), S/P PM TRAVEL AGENCY MANAGER Inflammatory (HCC) procedure are in the results section. ASPARTATE Routine 05/17/2018 3:16 Arthritis Results for this AMINOTRANSFERASE (AST), PM TRAVEL AGENCY MANAGER Inflammatory (HCC ) procedure are in S/P the results section. CREATININE WITH EGFR, Routine 05/17/2018 3:16 Arthritis Res ults for this S/P PM TRAVEL AGENCY MANAGER Inflammatory (HCC) procedure are in the results section. documented in this encounter Results CBC with Differential, Blood (05/17/2018 3:16 PM TRAVEL AGENCY MANAGER) [facility] gist Method Time Signature Hemoglobin 13.8 11.6 - 05/17/2018 [facility] 15.0 g/dL 3:52 PM TRAVEL AGENCY MANAGER LABORATORIES - [facility] Hematocrit 41.4 35.5 - 05/17/2018 [facility] 44.9 % 3:52 PM TRAVEL AGENCY MANAGER LABORATORIES - [facility] Erythrocytes 4.94 3.92 - 05/17/2018 [facility] 5.13 3:52 PM TRAVEL AGENCY MANAGER LABORATORIES - x10(12)/L [facility] MCV 83.8 78.2 - 05/17/2018 [facility] 97.9 fL 3:52 PM TRAVEL AGENCY MANAGER LABORATORIES - [facility] RBC Distrib Width 13.2 12.2 - 05/17/2018 [facility] 16.1 % 3:52 PM TRAVEL AGENCY MANAGER LABORATORIES - [facility] Platelet Count 260 157 - 371 05/17/2018 [facility] x10(9)/L 3:52 PM TRAVEL AGENCY MANAGER LABORATORIES - [facility] Leukocytes 7.9 3.4 - 9.6 05/17/2018 [facility] x10(9)/L 3:52 PM TRAVEL AGENCY MANAGER LABORATORIES - [facility] Neutrophils 5.55 1.56 - 05/17/2018 [facility] 6.45 3:52 PM TRAVEL AGENCY MANAGER LABORATORIES - x10(9)/L [facility] Lymphocytes 1.79 0.95 - 05/17/2018 [facility] 3.07 3:52 PM TRAVEL AGENCY MANAGER LABORATORIES - x10(9)/L [facility] Monocytes 0.49 0.26 - 05/17/2018 [facility] 0.81 3:52 PM TRAVEL AGENCY MANAGER LABORATORIES - x10(9)/L [facility] Eosinophils <0.03 0.03 - 05/17/2018 [facility] 0.48 3:52 PM TRAVEL AGENCY MANAGER LABORATORIES - x10(9)/L [facility] Basophils 0.03 0.01 - 05/17/2018 [facility] 0.08 3:52 PM TRAVEL AGENCY MANAGER LABORATORIES - x10(9)/L [facility] Specimen Anatomical Collection Method Collection Time Receive d Time (Source) Location / / Volume Laterality Blood (Blood, 05/17/2018 3:16 PM 05/17/19 19 3:35 Venous) TRAVEL AGENCY MANAGER PM TRAVEL AGENCY MANAGER Jorge Polo APRNN.P. LAB BLOOD ADD-ON Performing Organization Address City/State/ZIP Code Phon e Number [facility] LABORATORIES - [address] [place] [address] [facility] Creatinine with Estimated GFR (05/17/2018 3:16 PM TRAVEL AGENCY MANAGER) Analysis Performed At Patho logist Time Signature Creatinine 0.90 0.59 - 05/17/2018 [facility] 1.04 mg/dL 4:15 PM TRAVEL AGENCY MANAGER LABORATORIES [facility] eGFR-Non 77 >=60 05/17/2018 [facility] Black/ mL/min/BSA 4:15 PM TRAVEL AGENCY MANAGER LABORATORIES [facility] Comment: ----ADDITIONAL INFORMATION---- Estimated GFR calculated using the 2009 CKD_EPI creatinine equation. eGFR-Black/ 89 >=60 mL/min/BSA 05/17/2018 4:15 [facility] Turkish PM TRAVEL AGENCY MANAGER LABORATORIES [facility] Comment: ----ADDITIONAL INFORMATION---- Estimated GFR calculated using the 2009 CKD_EPI creatinine equation. Specimen Anatomical Collection Method Collection Time Receive d Time (Source) Location / / Volume Laterality Blood (Blood, 05/17/2018 3:16 PM 05/17/19 19 3:34 Venous) TRAVEL AGENCY MANAGER PM TRAVEL AGENCY MANAGER Jorge Polo APRNN.P. LAB BLOOD ADD-ON Performing Organization Address City/State/ZIP Code Phon e Number [facility]IES - [address] [place] [address] [facility] CRP (C-Reactive Protein) (05/17/2018 3:16 PM TRAVEL AGENCY MANAGER) P athologist Signature C-Reactive <3.0 <=8.0 mg/L 05/17/2018 [facility] Protein (CRP), 4:15 PM TRAVEL AGENCY MANAGER LABORATORIES - [facility] Specimen Anatomical Collection Method Collection Time Receive d Time (Source) Location / / Volume Laterality Blood (Blood, 05/17/2018 3:16 PM 05/17/19 19 3:34 Venous) TRAVEL AGENCY MANAGER PM TRAVEL AGENCY MANAGER Karlene Polo APRN.N.P. LAB BLOOD ADD-ON Performing Organization Address City/State/ZIP Code Phon e Number [facility]IES - [address] [place] [address] [facility] AST (Aspartate Aminotransferase) (05/17/2018 3:16 PM TRAVEL AGENCY MANAGER) [facility] Method Time Signature Aspartate 17 8 - 43 05/17/2018 [facility] Aminotransferase U/L 4:15 PM TRAVEL AGENCY MANAGER LABORATORIE S - (AST), S [facility] Specimen Anatomical Collection Method Collection Time Receive d Time (Source) Location / / Volume Laterality Blood (Blood, 05/17/2018 3:16 PM 05/17/19 19 3:34 Venous) TRAVEL AGENCY MANAGER PM TRAVEL AGENCY MANAGER Jorge Polo APRNN.P. LAB BLOOD ADD-ON Performing Organization Address City/[facility]/ZIP Code Phon e Number [facility] LAB[facility]ATORIES - [address] [place] [address] [facility] Sedimentation Rate (05/17/2018 3:16 PM TRAVEL AGENCY MANAGER) [facility] Method Time Signature Sedimentation 5 0 - 29 05/17/2018 [facility] Rate, B mm/1 h 4:52 PM TRAVEL AGENCY MANAGER LABORATORIES - [facility] Specimen Anatomical Collection Method Collection Time Receive d Time (Source) Location / / Volume Laterality Blood (Blood, 05/17/2018 3:16 PM 05/17/19 19 3:35 Venous) TRAVEL AGENCY MANAGER PM TRAVEL AGENCY MANAGER Karlene Polo APRN.N.P. LAB BLOOD ADD-ON Performing Organization Address City/[facility]/ZIP Code Phon e Number [facility] LABORATORIES - [address] [place] [address] [facility] documented in this encounter Visit Diagnoses Diagnosis Arthritis Inflammatory (HCC) documented in this encounter Additional Health Concerns Assessment Noted Time PHQ-9 Depression Total Score: 15 04/21/2018 1:00 PM CS T documented as of this encounter
--- OUTSIDE RECORDS SUMMARY | 2022-01-08 10:44 | XMS_ITS | Encounter Summary ---
:1970 Author Organization [facility] Address [address] [place] [address] Care Team Providers Name Role Phone Unavailable Primary Care Provider Unavailable Encounter Details Date Type Department Care Team Description 05/09/2018 Clinical Communication Division of [place], Gastroenterology in Susy Aldridge [place], [place] 210 [facility] [address] [place] [phone] Social History Tobacco Use Types Packs/Day Years [...] or relatives? How often do you attend yarsanism or More than 4 times per year 11/16/2021 worship services? Do you belong to any clubs or No 11/16/2021 organizations such as yarsanism groups, unions, fraternal or athletic groups, or [...] slept in a group home (including now)? Sex Assigned at Date Recorded Female 01/25/2018 11:49 AM CDT documented as of this encounter Plan of Treatment Upcoming Encounters Date Type Specialty Care Team Description 01/08/2022 Appointment Radiology Julián Edouard M.D. [address] [place] [phone] (Wo rk) 01/08/2022 Ancillary Procedure Cardiovascular Disease Julián Edouard M.D. [address] [place] [phone] (Wo rk) 01/08/2022 Comprehensive Visit Thoracic Surgery Tess Raphael M.D. [address] [place] [phone] (Wo rk) documented as of this encounter Visit Diagnoses Not on filedocumented in this encounter Additional Health Concerns Assessment Noted Time PHQ-9 Depression Total Score: 15 04/21/2018 1:00 PM CS T documented as of this encounter
--- OUTSIDE RECORDS SUMMARY | 2022-01-08 10:44 | XMS_ITS | Encounter Summary ---
:1970 Author Organization [facility] Address [address] [place] [address] Care Team Providers Name Role Phone Unavailable Primary Care Provider Unavailable Reason for Referral Outpatient (Routine) - Closed Specialty Diagnoses / Procedures Referred By Contact Refer red To Contact Diagnoses Depression Anxiety Gigi Mcbride M.D. [facility] Procedures ECG 12 Lead UT EKG 12 LEAD TRACE ONLY UT EKG I&R ONLY [address] [place] [phone] Referral ID Status Reason Start Date Expiration Date Visits Requ ested Visits Authorized [id number] Closed 04/05/2018 04/05/2019 1 1 NCE SPECIALIST Reason for Visit Outpatient (Routine) - Closed Specialty Diagnoses / Procedures Referred By Contact Refer red To Contact Sleep Medicine Diagnoses Insomnia Bony Jackson M.D. [facility] [address] [place], [place] [phone] Referral ID Status Reason Start Date Expiration Date Visits V isits Requested Authorized [id number] Closed Specialty 03/06/2018 03/06/2019 1 1 Services Required Encounter Details Date Type Department Care Team Description 04/05/2018 Office Visit [facility] Gigi Mcbride, Insomnia (Primary Dx); Medicine in [place] Depression Anxiety [place] [address] [facility] [address] [place] [phone] Social History Tobacco Use Types Packs/Day Years [...] Sign Reading Time Taken Comments Blood Pressure 116/89 04/05/2018 11:06 AM FINANCE SPECIALIST Pulse 88 04/05/2018 11:06 AM FINANCE SPECIALIST Temperature - - Respiratory Rate - - Oxygen Saturation - - Inhaled Oxygen Concentration - - Weight 60.9 kg (134 lb 4.2 oz) 04/05/2018 11:06 AM FINANCE SPECIALIST Height 157.7 cm (5' 2.09) 04/05/2018 11:06 AM FINANCE SPECIALIST Body Mass Index 24.49 04/05/2018 11:06 AM FINANCE SPECIALIST documented in this encounter Progress Notes Gigi Mcbride M.D. - 04/05/2018 11:00 AM CST REFERRAL SOURCE Bony Jackson MD CHIEF COMPLAINT/REASON FOR VISIT At Dr. Jackson's request, the patient was [facility] for follow-up ofinsomnia. HISTORY OF PRESENT ILLNESS Since I last saw Ms. Diaz on May 14, 2016, she has continued to struggle with sleep. The patient acknowledges feeling more anxious as bedtime approaches; and, if prescribed medications do not get her to sleep quickly, the patient may remain awake and dysphoric for much of the night. The patient goes to bed usually between 8:30 and 9:00 p.m. On work days, she has to get up by 3:45 am; on otherdays, the patient may stay in bed until 9:00 a.m. Even when she sleeps very little at night, the patient seldom dozes during the day. During the past year, Ms. Diaz has undertaken trials of suvorexant (Belsomra), which was discontinued due to increased headaches, and quetiapine (Seroquel), which was ineffective at doses up to 250mg q.h.s. Neither trazodone (Desyrel) nor mirtazapine (Remeron) proved to be very effective when prescribed in the past. 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 Most recently, Dr. Jackson has prescribed a trial of amitriptyline (Elavil) at doses that have gradually been increased to 200 mg q.h.s. Ms. Diaz says that she still cannot get to sleep consistently,and she has experienced increasing xerostomia and some lightheadedness on arising. The patient's mood remains somewhat dysphoric: Her score today on the PHQ-9 is 13 and her score on the LIVIA- 7 questionnaire is 8, suggesting moderate residual depression and anxiety. The patient denies suicidal ideation. Ms. Diaz says that psychological testing completed in recent months has confirmed a previous diagnosis of attention deficit disorder. For this condition, the patient takes mixed amphetamine salts (Adderall), 30 mg most mornings. On occasions when she does not take the stimulant agent, she says that she still has difficulty with sleep at night. Ms. Diaz also continues on treatment for hypertension, arthritis, and migraine headaches. VITAL SIGNS Height 157.7 cm, weight 60.9 kg, pulse 88 beats per minute, blood pressure 116/89 sitting. PHYSICAL EXAMINATION The patient's weight is down nearly 7 kg from what was documented when I last saw her in May 2016; her BMI is now 24.5. Neck circumference is 31 cm. On interview, the patient is pleasant and seemingly alert in the office setting. Despite her dysphoric mood, her affect is appropriately animated. Her speech is clear and of normal rate. There is no suggestion of any cognitive difficulty. ASSESSMENT / PLAN #1 Insomnia associated with depression and anxiety This continues to be a difficult set of intertwined problems. The patient's increased anxiety as bedtime approaches each night suggests a conditioned response. Fortunately, Ms. Diaz seems more opennow to additional efforts at cognitive-behavioral therapy (CBT) than she has been at times in the past. I will see whether or not there is a postdoctoral psychologist who would be able to see the patient for a few sessions at [place] [address]. Otherwise, I can arrange for her to meet with one of our nurses here at the [facility] for further instruction in matters of sleep hygiene, relaxation techniques, cognitive and stimulus control strategies for improving her sleep. Continued practice at home will be essential. After so many years and so many efforts to find a medication that will completely control the patient's insomnia, I do not think that this is a realistic expectation; and we dicussed this frankly today. It seems reasonable to continue with the trial of amitriptyline (Elavil) for now, but the patient's dose may have to be cut back due to side-effects of xerostomia and lightheadedness. (I note that has ordered an ECG and amitriptyline/nortriptyline levels. The patient thought that she could have these tests done in [place], but that turned-out to be difficult. 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 As [id number] diphenhydramine (Benadryl) seems to help, however, with fairly minimal side-effects, I think it would be reasonablye to continue this medication at a dose of 25 to 50 mg q.h.s. as needed. Ms. Diaz is scheduled to follow-up with Dr. Jackson in Psychiatry next week, and I will plan to talk with him before that appointment to review the clinical situation and options for further treatment. BILLING The margin code is E4; 25-minute visit, [address] Job ID: [id number] NCE SPECIALIST documented in this encounter Plan of Treatment Upcoming Encounters Date Type Specialty Care Team Description 01/08/2022 Appointment Radiology Julián Edouard M.D. [address] [place] [phone] (Earl dowd) 01/08/2022 Ancillary Procedure Cardiovascular Disease Julián Edouard M.D. [address] [place] [phone] (Earl dowd) 01/08/2022 Comprehensive Visit Thoracic Surgery Tess Raphael M.D. [address] [place] [address] (Earl dowd) documented as of this encounter Results ECG 12 Lead (04/05/2018 1:04 PM FINANCE SPECIALIST) P athologist Signature Ventricular Rate 98 BPM MUSE ECG/Min UT Interval 158 ms MUSE QRSD Interval 106 ms MUSE QT Interval 372 ms MUSE QTC Interval 475 ms MUSE P [place] 68 degrees MUSE R [place] -13 degrees MUSE T Wave [place] 58 degrees MUSE Specimen Anatomical Collection Method Collection Time Receive d Time (Source) Location / / Volume Laterality 04/05/2018 1:04 PM 8 1:12 FINANCE SPECIALIST PM FINANCE SPECIALIST Impressions MUSE - 04/05/2018 1:12 PM FINANCE SPECIALIST Normal sinus rhythm Normal ECG No previous ECGs available Narrative This result has an attachment that is no t available. Procedure Note Alverto Todd Jr., M.D. - 04/05/2018For matting of this note might be different from the original. IMPRESSION: Normal sinus rhythm Normal ECG No previous ECGs available Gigi Mcbride M.D. ECG ORDERABLES Performing Organization Address City/State/ZIP Code Phon e Number MUSE MUSE NA (ABNORMAL) Amitriptyline and Nortriptyline Level (04/05/2018 12:51 PM FINANCE SPECIALIST) [facility] Method Time Signature Amitriptyline 161 Not applicable 04/06/2018 [facility] ng/mL 6:18 PM FINANCE SPECIALIST [address] Nortriptyline 75 70 - 170 ng/mL 04/06/2018 [facility] 6:18 PM FINANCE SPECIALIST [address] [facility] Amitriptyline and 236 (H) 80 - 200 ng/mL 04/06/2018 [facility] Nortriptyline 6:18 PM FINANCE SPECIALIST [address] Comment: ----ADDITIONAL INFORMATION---- This test was developed and its performa nce characteristics determined by [facility] in a manner consistent with CLIA requirements. This test has not been cleared or approved by the [place] d and Drug Administration. Specimen Anatomical Collection Method Collection Time Receive d Time (Source) Location / / Volume Laterality Blood (Blood, 04/05/2018 12:51 04/06/2018 7:53 Venous) PM FINANCE SPECIALIST AM FINANCE SPECIALIST Gigi Mcbride M.D. LAB BLOOD NON ADD-ON Performing Organization Address City/State/ZIP Code Phon e Number [facility] [address] [place], [place] [address] documented in this encounter Visit Diagnoses Diagnosis Insomnia - Primary Depression Anxiety documented in this encounter Additional Health Concerns Assessment Noted Time PHQ-9 Depression Total Score: 7 08/19/2017 3:59 PM CDT documented as of this encounter
--- OUTSIDE RECORDS SUMMARY | 2022-01-08 10:44 | XMS_ITS | Encounter Summary ---
:1970 Author Organization [facility] Address [address] [place] [address] Care Team Providers Name Role Phone Unavailable Primary Care Provider Unavailable Encounter Details Date Type Department Care Team Description 01/25/2018 Hospital Encounter Department of Velma Munson Laboratory Medicine L, LONG, C.N .P. Inflammatory (HCC) and Pathology, [address] [place] [address] in [facility] [phone] [place] [phone] [place] [address] (Work) [place], [place] [phone] (Fax) [phone] Social History Tobacco Use Types Packs/Day Years [...] or relatives? How often do you attend methodist or More than 4 times per year 11/16/2021 methodist services? Do you belong to any clubs or No 11/16/2021 organizations such as methodist groups, unions, fraternal or athletic groups, or [...] once again after 1h if no effect. busPIRone (BUSPAR) 5 mg Take 15 mg [...] then 1 tablet daily for 3 days. QUEtiapine (SEROquel) 50 Take 3 tablets (150 270 tablet 1 03/29/2018 mg tablet mg total) by mouth at bedtime. zolpidem (AMBIEN) 10 mg Take 10 mg by mouth 0 05/27/2020 tablet as needed. documented as of this encounter Plan of Treatment Upcoming Encounters Date Type Specialty Care Team Description 01/08/2022 Appointment Radiology Julián Edouard M.D. [address] [place] [phone] (Earl dowd) 01/08/2022 Ancillary Procedure Cardiovascular Disease Julián Edouard M.D. [address] [place] [phone] (Earl dowd) 01/08/2022 Comprehensive Visit Thoracic Surgery eTss Raphael M.D. [address] [place] [phone] (Earl dowd) documented as of this encounter Procedures Procedure Name Priority Date/Time Associated Comments Diagnosis SEDIMENTATION RATE, B Routine 01/25/2018 9:21 Arthritis Res ults for this AM CDT Inflammatory (HCC) procedure are in the results section. CBC WITH DIFFERENTIAL, B Routine 01/25/2018 9:21 Arthritis Results for this AM CDT Inflammatory (HCC) procedure are in the results section. C-REACTIVE PROTEIN Routine 01/25/2018 9:21 Arthritis Result s for this (CRP), S/P AM CDT Inflammatory (HCC) procedure are in the results section. ASPARTATE Routine 01/25/2018 9:21 Arthritis Results for this AMINOTRANSFERASE (AST), AM CDT Inflammatory (HCC ) procedure are in S/P the results section. CREATININE WITH EGFR, Routine 01/25/2018 9:21 [place]thritis Res ults for this S/P AM CDT Inflammatory (HCC) procedure are in the results section. documented in this encounter Results Creatinine with Estimated GFR (01/25/2018 9:21 AM CDT) [facility] Signature Creatinine 0.76 0.59 - 01/25/2018 [facility] 1.04 mg/dL 10:22 AM CDT LABORATORIES - [facility] eGFR-Non >90 >=60 01/25/2018 [facility] Black/ mL/min/BSA 10:22 AM CDT LABORATORIES - [facility] Comment: ----ADDITIONAL INFORMATION---- Estimated GFR calculated using the 2009 CKD_EPI creatinine equation. eGFR-Black/ >90 >=60 mL/min/BSA 01/25/2018 10:2 2 [facility] CDT [facility]ORATORIES - [facility] Comment: ----ADDITIONAL INFORMATION---- Estimated GFR calculated using the 2009 CKD_EPI creatinine equation. Specimen Anatomical Collection Method Collection Time Receive d Time (Source) Location / / Volume Laterality Blood (Blood, 01/25/2018 9:21 AM 01/26/20 18 9:39 Venous) CDT AM CDT Jorge Polo APRNNLennoxPLennox LAB BLOOD ADD-ON Performing Organization Address City/State/ZIP Code Phon e Number [facility] LABORATORIES - 200 [place], [place] [address] [facility] AST (Aspartate Aminotransferase) (01/25/2018 9:21 AM CDT) [facility] Method Time Signature Aspartate 13 8 - 43 01/25/2018 [facility] Aminotransferase U/L 10:22 AM LABORATORIES - (AST), S CDT [facility] Specimen Anatomical Collection Method Collection Time Receive d Time (Source) Location / / Volume Laterality Blood (Blood, 01/25/2018 9:21 AM 01/26/20 18 9:39 Venous) CDT AM CDT Jorge Polo APRNN.P. LAB BLOOD ADD-ON Performing Organization Address City/[facility] Code Phon e Number [facility] - [address] CRP (C-Reactive Protein) (01/25/2018 9:21 AM CDT) P athologist Signature C-Reactive 3.0 <=8.0 mg/L 01/25/2018 [facility] Protein (CRP), 10:22 AM CDT LABORATORIES - [facility] Specimen Anatomical Collection Method Collection Time Receive d Time (Source) Location / / Volume Laterality Blood (Blood, 01/25/2018 9:21 AM 01/26/20 18 9:39 Venous) CDT AM CDT Jorge Polo APRNN.P. LAB BLOOD ADD-ON Performing Organization Address [facility] Phon e Number [facility] - 200 [place] [phone] 05 [facility] Sedimentation Rate (01/25/2018 9:21 AM CDT) [facility] Method Time Signature Sedimentation 3 0 - 29 01/25/2018 [facility] Rate, B mm/1 h 11:12 AM CDT [facility] Specimen Anatomical Collection Method Collection Time Receive d Time (Source) Location / / Volume Laterality Blood (Blood, 01/25/2018 9:21 AM 01/26/20 18 9:39 Venous) CDT AM CDT Jorge Polo APRNN.P. LAB BLOOD ADD-ON Performing Organization Address City/[facility] Phon e Number [facility] LABORATORIES - [address] [place] [phone] [facility] CBC with Differential, Blood (01/25/2018 9:21 AM CDT) [facility] gist Method Time Signature Hemoglobin 13.9 11.6 - 01/25/2018 [facility] 15.0 g/dL 10:19 AM CDT [facility] Hematocrit 42.0 35.5 - 01/25/2018 [facility] 44.9 % 10:19 AM CDT [facility] Erythrocytes 4.95 3.92 - 01/25/2018 [facility] 5.13 10:19 AM CDT LABORATORIES - x10(12)/L [facility] MCV 84.8 78.2 - 01/25/2018 [facility] 97.9 fL 10:19 AM CDT LAB[facility]ATORIES - [facility] RBC Distrib Width 14.0 12.2 - 01/25/2018 [facility] 16.1 % 10:19 AM CDT [facility] - [facility] Platelet Count 274 157 - 371 01/25/2018 [facility] x10(9)/L 10:19 AM CDT [facility] - [facility] Leukocytes 6.5 3.4 - 9.6 01/25/2018 [facility] x10(9)/L 10:19 AM CDT [facility]ATOR[facility] - [facility] Neutrophils 4.55 1.56 - 01/25/2018 [facility] 6.45 10:19 AM CDT LABORATORIES - x10(9)/L [facility] Lymphocytes 1.46 0.95 - 01/25/2018 [facility] 3.07 10:19 AM CDT LABORATORIES - x10(9)/L [facility] Monocytes 0.39 0.26 - 01/25/2018 [facility] 0.81 10:19 AM CDT LABORATORIES - x10(9)/L [facility] Eosinophils 0.04 0.03 - 01/25/2018 [facility] 0.48 10:19 AM CDT LABORATORIES - x10(9)/L [facility] Basophils <0.03 0.01 - 01/25/2018 [facility] 0.08 10:19 AM CDT LABORATORIES - x10(9)/L [facility] Specimen Anatomical Collection Method Collection Time Receive d Time (Source) Location / / Volume Laterality Blood (Blood, 01/25/2018 9:21 AM 01/26/20 18 9:39 Venous) CDT AM CDT Velma Munson APRN C.N.P. LAB BLOOD ADD-ON Performing Organization Address City/State/ZIP Code Phon e Number [facility] LABORATORIES - [address] [place], [place] [address] [facility] documented in this encounter Visit Diagnoses Diagnosis Arthritis Inflammatory (HCC) documented in this encounter Additional Health Concerns Assessment Noted Time PHQ-9 Depression Total Score: 7 08/19/2017 3:59 PM CDT documented as of this encounter
--- OUTSIDE RECORDS SUMMARY | 2022-01-08 10:44 | XMS_ITS | Encounter Summary ---
:1970 Author Organization [facility] Address [address] [place] [address] Care Team Providers Name Role Phone Unavailable Primary Care Provider Unavailable Encounter Details Date Type Department Care Team Description 01/17/2018 Orders Only Division [facility] , Jorge ALVESNLennoxPLennox ([facility]) (Primary Dx) [place], [place] [address] [facility] [address] [place] [phone] Social History Tobacco Use Types Packs/Day Years [...] Appointment Radiology Julián Edouard M.D. [address] [place] [address] (Wo rk) 01/08/2022 Ancillary Procedure Cardiovascular Disease Julián Edouard M.D. [address] [place] [phone] (Wo rk) 01/08/2022 Comprehensive Visit Thoracic Surgery Tess Raphael M.D. [address] [place] [address] (Wo rk) documented as of this encounter Results Creatinine with Estimated GFR (01/25/2018 9:21 AM CDT) Analysis Performed At [facility] Time Signature Creatinine 0.76 0.59 - 01/25/2018 [facility] 1.04 mg/dL 10:22 AM CDT LABORATORIES [facility] eGFR-Non >90 >=60 01/25/2018 [facility] Black/ mL/min/BSA 10:22 AM CDT LABORATORIES [facility] Comment: ----ADDITIONAL INFORMATION---- Estimated GFR calculated using the 2009 CKD_EPI creatinine equation. eGFR-Black/ >90 >=60 mL/min/BSA 01/25/2018 10:2 2 [facility] CDT LABORATORIES [facility] Comment: ----ADDITIONAL INFORMATION---- Estimated GFR calculated using the 2009 CKD_EPI creatinine equation. Specimen Anatomical Collection Method Collection Time Receive d Time (Source) Location / / Volume Laterality Blood (Blood, 01/25/2018 9:21 AM 09/26/20 18 9:39 Venous) CDT AM CDT Jorge Polo APRNN.P. LAB BLOOD ADD-ON Performing Organization Address City/[facility]/ZIP Code Phon e Number [facility] LABORATORIES - [address] [place] [phone] [facility] AST (Aspartate Aminotransferase) (01/25/2018 9:21 AM CDT) [facility] Method Time Signature Aspartate 13 8 - 43 01/25/2018 [facility] Aminotransferase U/L 10:22 AM LABORATORIES - (AST), S CDT [facility] Specimen Anatomical Collection Method Collection Time Receive d Time (Source) Location / / Volume Laterality Blood (Blood, 01/25/2018 9:21 AM 01/26/20 18 9:39 Venous) CDT AM CDT Jorge Polo APRNN.P. LAB BLOOD ADD-ON Performing Organization Address City/[facility]/ZIP Code Phon e Number [facility] LABORATORIES - [address] [place] [phone] [facility] CRP (C-Reactive Protein) (01/25/2018 9:21 AM CDT) P athologist Signature C-Reactive 3.0 <=8.0 mg/L 01/25/2018 [facility] Protein (CRP), 10:22 AM CDT LABORATORIES - S [facility] Specimen Anatomical Collection Method Collection Time Receive d Time (Source) Location / / Volume Laterality Blood (Blood, 01/25/2018 9:21 AM 01/26/20 18 9:39 Venous) CDT AM CDT Jorge Polo APRNN.P. LAB BLOOD ADD-ON Performing Organization Address City/State/ZIP Code Phon e Number [facility] LABORATORIES - [address] [place] [phone] [facility] Sedimentation Rate (01/25/2018 9:21 AM CDT) [facility] Method Time Signature Sedimentation 3 0 - 29 01/25/2018 [facility] Rate, B mm/1 h 11:12 AM CDT LABORATORIES - [facility] Specimen Anatomical Collection Method Collection Time Receive d Time (Source) Location / / Volume Laterality Blood (Blood, 01/25/2018 9:21 AM 01/26/20 18 9:39 Venous) CDT AM CDT Velma Munson APRN, C.N.P. LAB BLOOD ADD-ON Performing Organization Address City/State/ZIP Code Phon e Number [facility] LABORATORIES - [address] [place], [place] [address] [facility] CBC with Differential, Blood (01/25/2018 9:21 AM CDT) [facility] Method Time Signature Hemoglobin 13.9 11.6 - 01/25/2018 [facility] 15.0 g/dL 10:19 AM CDT LABORATORIES - [facility] Hematocrit 42.0 35.5 - 01/25/2018 [facility] 44.9 % 10:19 AM CDT LABORATORIES - [facility] Erythrocytes 4.95 3.92 - 01/25/2018 [facility] 5.13 10:19 AM CDT LABORATORIES - x10(12)/L [facility] MCV 84.8 78.2 - 01/25/2018 [facility] 97.9 fL 10:19 AM CDT LABORATORIES - [facility] RBC Distrib Width 14.0 12.2 - 01/25/2018 [facility] 16.1 % 10:19 AM CDT LABORATORIES - [facility] Platelet Count 274 157 - 371 01/25/2018 [facility] x10(9)/L 10:19 AM CDT LABORATORIES - [facility] Leukocytes 6.5 3.4 - 9.6 01/25/2018 [facility] x10(9)/L 10:19 AM CDT LABORATORIES - [facility] Neutrophils 4.55 1.56 - 01/25/2018 [facility] 6.45 10:19 AM CDT LABORATORIES - x10(9)/L [facility] Lymphocytes 1.46 0.95 - 01/25/2018 [facility] 3.07 10:19 AM CDT LABORATORIES - x10(9)/L [facility] Monocytes 0.39 0.26 - 01/25/2018 [facility] 0.81 10:19 AM CDT LABORATORIES - x10(9)/L [facility] Eosinophils 0.04 0.03 - 01/25/2018 [facility] 0.48 10:19 AM CDT LABORATORIES - x10(9)/L [facility] Basophils <0.03 0.01 - 01/25/2018 [facility] 0.08 10:19 AM CDT LABORATORIES - x10(9)/L [facility] Specimen Anatomical Collection Method Collection Time Receive d Time (Source) Location / / Volume Laterality Blood (Blood, 01/25/2018 9:21 AM 01/26/20 18 9:39 Venous) CDT AM CDT Velma Munson APRN C.N.P. LAB BLOOD ADD-ON Performing Organization Address City/State/ZIP Code Phon e Number [facility] LABORATORIES - [address] [place] [phone] [facility] documented in this encounter Visit Diagnoses Diagnosis Arthritis Inflammatory (HCC) - Primary documented in this encounter Additional Health Concerns Assessment Noted Time PHQ-9 Depression Total Score: 7 08/19/2017 3:59 PM CDT documented as of this encounter
--- OUTSIDE RECORDS SUMMARY | 2022-01-08 10:44 | XMS_ITS | Encounter Summary ---
:1970 Author Organization [facility] Address [address] [place] [address] Care Team Providers Name Role Phone Unavailable Primary Care Provider Unavailable Encounter Details Date Type Department Care Team Description 08/27/2017 Abstract DATA ABSTRACTION Provider, Historical Social History Tobacco Use Types Packs/Day Years [...] More than 4 times per year 11/16/2021 adventism services? Do you belong to any clubs [...] Appointment Radiology Julián Edouard M.D. [address] [place] [phone] (Wo rk) 01/08/2022 Ancillary Procedure Cardiovascular Disease Julián Edouard M.D. [address] [place] [phone] (Wo rk) 01/08/2022 Comprehensive Visit Thoracic Surgery Tess Raphael M.D. [address] [place] [phone] (Wo rk) documented as of this encounter Visit Diagnoses Not on filedocumented in this encounter Additional Health Concerns Assessment Noted Time PHQ-9 Depression Total Score: 7 08/19/2017 3:59 PM CDT documented as of this encounter
--- OUTSIDE RECORDS SUMMARY | 2022-01-08 10:46 | XMS_ITS | Clinical Summary ---
:1970 Author Organization [facility] Address [address] [place] [address] Care Team Providers Name Role Phone Unavailable Primary Care Provider Unavailable Source Comments You are receiving this document as you are listed as the primary care provider,follow-up provider, or the patient has been referred to you for consultation.This is in compliance with the Medicare and Medicaid EHR Incentive Program,which states Providers who transition their patient to another setting of careor provider of care or refers their patient to another provider of care shouldprovide summarycare record for each transition of care or referral. Plink Search Allergies Active Allergy Reactions Severity Noted Date Comments Hydrocodone Itching 09/02/2020 Iodine Other, see comments 09/02/2020 Fainting , SOB Pecan Nut (Diagnostic) Edema,generalized 09/02/2020 Medications Medication Sig Dispensed Refills Start Date End Date Status METHOTREXATE OR Inject 50 mg. 0 Active amphetamine-dextroamphe Take 30 mg by mouth 0 Active tamine (ADDERALL XR) 30 daily. MG 24 hour release capsule amphetamine-dextroamphe Take 15 mg by mouth 0 Active tamine (ADDERALL XR) 15 daily. MG 24 hour release capsule LORazepam (ATIVAN) 2 MG Take 2 mg by mouth 0 Active tablet every 6 hours as needed for Anxiety. aluminum-magnesium Swish and spit 5 mL 0 Active antacid-diphenhydrAMINE in mouth every 4 -lidocaine-nystatin hours as needed. (MAGIC MOUTHWASH) 1:1:1:1 ratio suspension modafinil (PROVIGIL) Take 100 mg by 0 Active 100 MG tablet mouth daily. folic acid 1 MG tablet Take 1 mg by mouth 0 Active daily. sucralfate (CARAFATE) 1 Take 1 g by mouth 4 0 Active g tablet times a day. SUMAtriptan (IMITREX Inject 6 mg 0 Active STATDOSE REFILL) 6 subcutaneously once MG/0.5ML injection as needed. hydroxychloroquine Take by mouth 0 Active (PLAQUENIL) 200 MG daily. tablet butalbital-acetaminophe Take 1 Tablet by 0 Active n-caffeine (FIORICET) mouth every 4 hours 50-325-40 MG tablet as needed for Pain. omeprazole (PRILOSEC) Take 20 mg by mouth 0 Active 20 MG capsule daily. Take 1 hour before a meal. hydrOXYzine HCl Take 25 mg by mouth 0 Active (ATARAX) 25 MG tablet three times a day as needed. 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 Social History Tobacco Use Types Packs/Day Years Used Date Smoking Tobacco: Never Smokeless Tobacco: Never Sex Assigned at Date Recorded Not on file Plan of Treatment Health Maintenance Due Date Last Done Comments Cervical Cancer Screening 1970 Due Colon Cancer Screening Plan 1970 Due Hep C Screening (Preventive 1970 Services) HepB (1) 1970 Mammogram 01/01/1972 COVID-19 Vaccine (#1) 06/29/1972 HIV Screening (Preventive 1987 Services) Adult Preventive Visit 12/30/1989 Cholesterol 12/30/2016 Zoster/Shingles (1 of 2) 12/30/2021 Influenza (#1) 2022 01/28/2020, 01/23/2020, 12/21/2018, Additional history exists DTaP/Tdap/Td (2 - Tdap) 07/11/2024 07/11/2014 HepA Aged Out No longer eligib le based on patient 's age to complete this topic Hib Aged Out No longer eligib le based on patient 's age to complete this topic IPV (Polio) Aged Out No longer eligib le based on patient 's age to complete this topic MCV4 Aged Out No longer eligib le based on patient 's age to complete this topic Pneumococcal Aged Out No longer eligib le based on patient 's age to complete this topic Insurance Payer Benefit Plan / Subscriber ID Effective Dates Phone Addre ss Type Group BCBS BCBS OUT OF [id number] 2020-Present [address] [address] [place] [address]
--- OUTSIDE RECORDS SUMMARY | 2022-01-08 10:46 | XMS_ITS | Encounter Summary ---
:1970 Author Organization [facility] Address [address], [place] [address] Care Team Providers Name Role Phone Unavailable Primary Care Provider Unavailable Reason for Visit Reason Onset Date Comments No Show 10/03/2020 Encounter Details Date Type Department Care Team Description 10/03/2020 Telemedicine Brynn Cruz, [facility] End[facility] Ray Gonzales MD administrative purposes [address] (Primary Dx) [place] [address] [address]vd [phone] [place], [place] [address] Social History Tobacco Use Types Packs/Day Years Used Date Smoking Tobacco: Never Smokeless Tobacco: Never Sex Assigned at Date Recorded Not on file documented as of this encounter Progress Notes Ray Cruz MD - 10/03/2020 10:00 AM CDT Patient was called 2 times and was unable to be reached to complete their Video/phone visit. Ray Cruz MD documented in this encounter Plan of Treatment Not on filedocumented as of this encounter Visit Diagnoses Diagnosis Encounters for administrative purposes - Primary Encounters for unspecified administrativ e purpose documented in this encounter
--- OUTSIDE RECORDS SUMMARY | 2022-01-08 10:46 | XMS_ITS | Encounter Summary ---
:1970 Author Organization [facility] Address [address] [place] [address] Care Team Providers Name Role Phone Unavailable Primary Care Provider Unavailable Encounter Details Date Type Department Care Team Description 09/04/2020 [facility] [place] [facility] Pituitary tumor [address] [place] [address] Social History Tobacco Use Types Packs/Day Years Used Date Smoking Tobacco: Never Smokeless Tobacco: Never Sex Assigned at Date Recorded Not on file documented as of this encounter Plan of Treatment Not on filedocumented as of this encounter Procedures Procedure Name Priority Date/Time Associated Diagnosis Comme nts INSULIN-LIKE GROWTH Routine 09/04/2020 2:49 PM Pituitary tumor Results for this FACTOR CDT procedure are i n the results section. FREE T4 Routine 09/04/2020 2:49 PM Pituitary tumor Result s for this CDT procedure are i n the results section. CORTISOL Routine 09/04/2020 2:49 PM Pituitary tumor Result s for this CDT procedure are i n the results section. documented in this encounter Results Insulin-Like Growth Factor (09/04/2020 2:49 PM CDT) [facility] Method Time Signature Insulin-Like 140 60 - 240 09/06/2020 [facility] Growth Factor ng/mL 3:49 PM CDT LABORATORIES IGF 1 Z Score 0.2 09/06/2020 [facility] Calculation 3:49 PM CDT LABORATORIES Comment: INTERPRETIVE INFORMATION: IGF 1 Z-SCORE CALCULATION A Z score is the number of standard natalie ations a given result is above (positive score) or below (negativ e score) the age- and sex-adjusted population mean. ??Results that are within the IGF-1 reference interval will have a Z score b etween -2.0 and +2.0. Performed By: [facility] [address] [place] [id number] Picture Engraver: Dotty Preciado MD Specimen Anatomical Collection Method / Collection Time Recei chelsey Time (Source) Location / Volume Laterality Blood Venipuncture / 09/04/2020 2:49 09/04/2020 2:59 Unknown PM CDT PM CDT Ray Cruz MD LAB_1 Performing Organization Address [facility] Phon e Number [place] [phone] Cortisol AM (09/04/2020 2:49 PM CDT) P athologist Signature Cortisol 10.0 2.9 - 19.4 09/04/2020 [facility] mcg/dL 7:10 PM CDT LABORATORY Specimen Anatomical Collection Method / Collection Time Recei chelsey Time (Source) Location / Volume Laterality Blood Venipuncture / 09/04/2020 2:49 09/04/2020 2:59 Unknown PM CDT PM CDT Narrative [facility] - 09/04/2020 7:10 P M CDT Expected values AM (before 10am): 3.7-19.4 mcg/dL PM (after 5pm): 2.9-17.3 mcg/dL Ray Cruz MD LAB_1 Performing Organization Address [facility] Phon e Number [facility] [address] [place] [address] Free T4 (09/04/2020 2:49 PM CDT) athologist Signature T4, Free 0.90 0.70 - 1.50 09/04/2020 [facility] ng/dL 7:10 PM CDT LABORATORY Specimen Anatomical Collection Method / Collection Time Recei chelsey Time (Source) Location / Volume Laterality Blood Venipuncture / 09/04/2020 2:49 09/04/2020 2:59 Unknown PM CDT PM CDT Ray Cruz MD LAB_1 Performing Organization Address [facility] Phon e Number [facility] [address] [place] [address] documented in this encounter Visit Diagnoses Diagnosis Pituitary tumor (HRC) 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
--- OUTSIDE RECORDS SUMMARY | 2022-01-08 10:47 | XMS_ITS | Encounter Summary ---
:1970 Author Organization [facility] Address [address], [place] [address] Care Team Providers Name Role Phone Unavailable Primary Care Provider Unavailable Reason for Referral Procedure/Equipment (Routine) - Incomplete Specialty Diagnoses / Procedures Referred By Contact Refer red To Contact Diagnoses Pituitary tumor (HRC) Ray Cruz MD Procedures MR Brain W/WO IV Cont [address] [place], [place] [address] Referral ID Status Reason Start Date Expiration Date Visits V isits Requested Authorized [id number] Incomplete 09/02/2020 12/02/2021 1 1 Reason for Visit Reason Comments CONSULT Encounter Details Date Type Department Care Team Description 09/02/2020 Telemedicine [facility] [address], Pituitary tumor (Primary Dx); Endocrinology Ray Gonzales MD Prolactinoma (HRC) [address] [facility] [address] [facility] [place] [address] [phone] Social History Tobacco Use Types Packs/Day Years Used Date Smoking Tobacco: Never Smokeless Tobacco: Never Sex Assigned at Date Recorded Not on file documented as of this encounter Progress Notes Ray Cruz MD - 09/02/2020 1:30 PM CDT Chief Complaint: Chief Complaint Patient presents with ??? CONSULT HPI: Waleska Diaz is a 49 y.o. female with PMH significant for pituitary tumor, mixed connective tissue disorder who presents for evaluation in regards to history of pituitary tumor. 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 Pt was diagnosed with it initially in ~2011 in [place]. Pt is unsure how they found it, but she reports having nipple discharge at that time. Pt has never been on medication for it (cabergoline). She doesn't recall any workup initially for evaluation. She reports she did see an Transport Company Manager initially in [place] once when diagnosed. Pt has chronic migraines which have improved slightly since cauterization treatment a while ago, butthey are becoming frequent again. No changes in vision she is aware of. Pt reports fatigue, GI issues she is seeing GI for (diarrhea occasionally), weight gain of 45-50lbs in last year, swelling of hands/feet, breast tenderness Pt denies palpitations, significant fracture history, nipple discharge, nausea/vomiting Denies history of HTN or DM, but last few checks have had higher BP Past Medical History: No past medical history on file. Surgical History: No past surgical history on file. Family History: No family history on file. Medications: Current Outpatient Medications Medication Sig Dispense Refill ??? METHOTREXATE OR No current facility-administered medications for this visit. Allergies: No Known Allergies Physical Exam: There were no vitals filed for this visit. Eyes: Scleral icterus not present. Ears, nose, and mouth: Moist mucous membranes Skin: no visible rashes Labs: I have reviewed all pertinent investigations including labs, including outside records if relevant 07/2020 Prolactin 8.4 Imaging: I have reviewed all pertinent investigations including imaging, including outside records if relevant Assessment/Plan: Waleska Diaz is a 49 y.o. female who presents for evaluation in regards to pituitary tumor. Any outside records, prior notes, labwork, and imaging studies were reviewed, if relevant. Pt reports history of 4mm pitutiary tumor that she had never had treatment for. She reports seeing Transport Company Manager when first diagnosed, but no follow-up since then. Symptoms suggestive of possible hypothyroidism or excess cortisol, will screen. Recent prolactin level normal. #pituitary tumor - repeat pituitary MRI - check labwork including FT4, AM cortisol, IGF-1 and LNSCx2 RTC in 1 month to discuss results of labwork and imaging Total time personally spent with patient oqfi-uv-[id number]: 20 minutes. Additional 10 minutes were spent on chart review, clinical decision-making, and documentation outside of hiof-fr-qvrr time with patient on date of patient visit. This encounter was performed as a video visit. Pt agreeable to video visit. Pt was located at home for duration of visit. I was located at my home office. Ray Cruz MD Melody Torres - 09/02/2020 1:30 PM CDT 2nd attempt called 09/01/20 documented in this encounter Plan of Treatment Not on filedocumented as of this encounter Results Insulin-Like Growth Factor (09/04/2020 2:49 PM CDT) [facility] gist Method Time Signature Insulin-Like 140 60 - [...] b etween -2.0 and +2.0. Performed By: [place] [address] Bell Hole Digger: Dotty Preciado MD Specimen Anatomical Collection Method / Collection Time Recei chelsey Time (Source) Location / Volume Laterality Blood Venipuncture / 09/04/2020 2:49 09/04/2020 2:59 Unknown PM CDT PM CDT Ray Cruz MD LAB_1 Performing Organization Address City/State/ZIP Code Phon e Number [facility] [address] [place] [address] [phone] Cortisol AM (09/04/2020 2:49 PM CDT) athologist Signature Cortisol 10.0 2.9 - 19.4 09/04/2020 [facility] mcg/dL 7:10 PM CDT LABORATORY Specimen Anatomical Collection Method / Collection Time Recei chelsey Time (Source) Location / Volume Laterality Blood Venipuncture / 09/04/2020 2:49 09/04/2020 2:59 Unknown PM CDT PM CDT Narrative [facility] - 09/04/2020 7:10 P M CDT Expected values AM (before 10am): 3.7-19.4 mcg/dL PM (after 5pm): 2.9-17.3 mcg/dL Ray Cruz MD LAB_1 Performing Organization Address [facility]/ZIP [facility] Number [facility] [address] [place] [address] Free T4 (09/04/2020 2:49 PM CDT) athologist Signature T4, Free 0.90 0.70 - 1.50 09/04/2020 [facility] ng/dL 7:10 PM CDT LABORATORY Specimen Anatomical Collection Method / Collection Time Recei chelsey Time (Source) Location / Volume Laterality Blood Venipuncture / 09/04/2020 2:49 09/04/2020 2:59 Unknown PM CDT PM CDT Ray Cruz MD LAB_1 Performing Organization Address [facility] Phon e Number [facility] [address] [place] [address] MR Brain W/WO IV Cont (09/04/2020 2:43 PM CDT) Anatomical Region Laterality Modality Head Magnetic Resonance Specimen (Source) Anatomical Collection Method Collection Time Re ceived Time Location / / Volume Laterality 09/04/2020 1:41 PM CDT Impressions 09/04/2020 4:19 PM CDT INDICATION: pituitary tumor ?? TECHNIQUE: ??MRI of the head with and wi thout contrast using pituitary protocol, 8 mL GADOBUTROL 1 MMOL/ML IV SOLN. COMPARISON: None. FINDINGS: ??Normal diffusion. Normal T2 and FLAIR signal within the brain parenchyma. The ventricular system, sulci, and cisterns are normal caliber and configuration. Normal flow voids within the major intracranial vessels. Normal enhancemen t. Orbits are unremarkable. Small right maxillary sinus mucosal retention cyst. Paranasal sinuses and mastoid air cells are otherwise clear. Pituitary gland is normal in size. 5 x 4 mm CSF intensity, nonenhancing structure at the superior margin of the pituitary gland. Otherwise, no discrete pituitary lesion detected. No mass effect on the o ptic chiasm. Infundibulum is midline. Ca vernous sinuses are unremarkable. Sella is not expanded. IMPRESSION: ?? 1. 5 x 4 mm CSF intensity nonenhancing c ystic lesion at the superior margin of the pituitary gland, cyst versus cystic microadenoma. No mass effect on the optic chiasm. 2. Brain parenchyma is unremarkable. Procedure Note Lawson Arriaga MD - 09/04/2020For matting of this note might be different from the original. IMPRESSION INDICATION: pituitary tumor TECHNIQUE: MRI of the head with and with out contrast using pituitary protocol, 8 mL GADOBUTROL 1 MMOL/ML IV SOLN. COMPARISON: None. FINDINGS: Normal diffusion. Normal T2 an d FLAIR signal within the brain parenchyma. The ventricular system, sulci, and cisterns are normal caliber and configuration. Normal flow voids within the major intracranial vessels. Normal enhancement. Orbits are unremarkable. Small right maxillary sinus mucosal retention cyst. Paranasal sinuses and mastoid air cells are otherwise clear. Pituitary gland is normal in size. 5 x 4 mm CSF intensity, nonenhancing structure at the superior margin of the pituitary gland. Otherwise, no discrete pituitary lesion detected. No mass effect on the optic chiasm. Infundibulum is midline. Cavernous sinus es are unremarkable. Sella is not expanded. IMPRESSION: 1. 5 x 4 mm CSF intensity nonenhancing c ystic lesion at the superior margin of the pituitary gland, cyst versus cystic microadenoma. No mass effect on the optic chiasm. 2. Brain parenchyma is unremarkable. Ray Cruz MD RAD MRI documented in this encounter Visit Diagnoses Diagnosis Pituitary tumor (HRC) - Primary Neoplasm of unspecified nature of endocr ine glands and other parts of nervous system Prolactinoma (HRC) Benign neoplasm of pituitary gland and c raniopharyngeal duct (pouch) Pituitary tumor (HRC) 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
--- OUTSIDE RECORDS SUMMARY | 2022-01-08 10:47 | XMS_ITS | Encounter Summary ---
:1970 Author Organization [facility] Address [address], [place] [address] Care Team Providers Name Role Phone Unavailable Primary Care Provider Unavailable Reason for Visit Procedure/Equipment (Routine) - Incomplete Specialty Diagnoses / Procedures Referred By Contact Refer red To Contact Diagnoses Pituitary tumor (HRC) Ray Cruz MD Procedures MR Brain W/WO IV Cont [address] [place], [place] [address] Referral ID Status Reason Start Date Expiration Date Visits V isits Requested Authorized [id number] Incomplete 09/02/2020 12/02/2021 1 1 Encounter Details Date Type Department Care Team Description 09/04/2020 Ancillary Procedure Zhanna Cruz, Pituita ry tumor [place] [address] Ray Gonzales MD Radiology MRI [address] [facility] [address] [place] [address] [phone] Social History Tobacco Use Types Packs/Day Years Used Date Smoking Tobacco: Never Smokeless Tobacco: Never Sex Assigned at Date Recorded Not on file documented as of this encounter Plan of Treatment Not on filedocumented as of this encounter Procedures Procedure Name Priority Date/Time Associated Diagnosis Comme nts MR BRAIN W/WO IV Routine 09/04/2020 2:43 PM Pituitary tumor Re sults for this CONT CDT procedure are i n the results section. documented in this encounter Results MR Brain W/WO IV Cont (09/04/2020 2:43 [...] of nervous system documented in this encounter Administered Medications Inactive Administered Medications - up to 3 most recent administrations Medication Order MAR Action Action Date Dose Rate Site gadobutrol (GADAVIST) 1 MMOL/ML Given 09/04/2020 2:12 PM CDT 8 m L injection 8 mL 8 mL, Intravenous, ONCE, On Madelaine 09/04/20 at 1400, For 1 dose sodium chloride 0.9% injection 20 mL Given 09/04/2020 2:13 PM CDT 20 mL 20 mL, Intravenous, ONCE, On Madelaine 09/04/20 at 1400, For 1 dose documented in this encounter
--- OUTSIDE RECORDS SUMMARY | 2022-01-08 10:47 | XMS_ITS | Encounter Summary ---
:1970 Author Organization [facility] Address [address] [place] [address] Care Team Providers Name Role Phone Unavailable Primary Care Provider Unavailable Reason for Visit Reason Comments Referral [place], Hyperprolactinem ia and Prolactinoma Encounter Details Date Type Department Care Team Description 08/19/2020 Telephone [facility] [address] Nurse, [id number] End Referral ([place], Endocrinology [address] Hyper[address]emia [address] Prolactinoma) [address] [facility] [phone] Social History Tobacco Use Types Packs/Day Years Used Date Smoking Tobacco: Never Assessed Sex Assigned at Date Recorded Not on file documented as of this encounter Nursing Notes Digna Keller - 08/22/2020 11:57 AM CDT Lvmx2 to have patient call back to schedule this consult with an MD, unable to reach patient. Records is in Media. Digna Keller - 08/19/2020 9:31 AM CDT Received referral from [facility] from Dr. Kelly Ramirez for patient to be seen for History of Hyperprolactinemia and Prolactinoma. Records sent to scan docs and [facility] for patient to call back and schedule the consul with an MD. documented in this encounter Plan of Treatment Not on filedocumented as of this encounter Visit Diagnoses Not on filedocumented in this encounter
--- OUTSIDE RECORDS SUMMARY | 2022-01-08 10:47 | XMS_ITS | Encounter Summary ---
:1970 Author Organization [facility] Address [address] [place] [address] Care Team Providers Name Role Phone None, Pcp Primary Care Provider Unavailable Reason for Visit Reason Comments TB Read TB skin test reading Encounter Details Date Type Department Care Team Description 02/26/2021 Clinical Support [place] [address] [facility] [address] [place], [place] [address] Social History Tobacco Use Types Packs/Day Years Used Date Never Assessed Sex Assigned at Date Recorded Not on file documented as of this encounter Plan of Treatment Not on filedocumented as of this encounter Visit Diagnoses Not on filedocumented in this encounter Care Teams Clay Processing Labourer Relationship Specialty Start Date End Date None, Pcp PCP - General Forestry Extension Specialist 02/16/21 [address] [place] [address] documented as of this encounter
--- OUTSIDE RECORDS SUMMARY | 2022-01-08 10:47 | XMS_ITS | Encounter Summary ---
:1970 Author Organization [facility] Address [address] [place] [address] Care Team Providers Name Role Phone None, Pcp Primary Care Provider Unavailable Reason for Visit Reason Comments PPD Placement Encounter Details Date Type Department Care Team Description 02/16/2021 Immunization [place] Screening for tuberculosis [address] (Primary Dx) [place], [place] [address] Social History Tobacco Use Types Packs/Day Years Used Date Never Assessed Sex Assigned at Date Recorded Not on file documented as of this encounter Plan of Treatment Not on filedocumented as of this encounter Visit Diagnoses Diagnosis Screening for tuberculosis - Primary Screening examination for pulmonary tube rculosis documented in this encounter Care Teams Pin Drafter Relationship Specialty Start Date End Date None, Pcp PCP - General Sheet Metal Erector 02/16/[address] [place] [phone] documented as of this encounter
--- OUTSIDE RECORDS SUMMARY | 2022-01-08 10:47 | XMS_ITS | Encounter Summary ---
:1970 Author Organization [facility] Address [address] [place] [address] Care Team Providers Name Role Phone None, Pcp Primary Care Provider Unavailable Encounter Details Date Type Department Care Team Description 02/23/2021 Telephone Vaiden Domo Bateman MD [address] [facility] 20 17[address] [facility] [address] [place], [place] [address] [place], [place] [phone] (Wo rk) Social History Tobacco Use Types Packs/Day Years Used Date Never Assessed Sex Assigned at Date Recorded Not on file documented as of this encounter Miscellaneous Notes Telephone Encounter - Kecia Madrid - 02/23/2021 1:13 PM CDT Patient will be coming in for another TB test today. Telephone Encounter - Denisha Blood - 02/23/2021 10:05 AM CDT Pt said she had her TB test 02/16/21 and she forgot to come to have it checked documented in this encounter Plan of Treatment Not on filedocumented as of this encounter Visit Diagnoses Not on filedocumented in this encounter Care Teams Report Specialist Relationship Specialty Start Date End Date None, Pcp PCP - General Stem Crusher 02/16/21 [address] [place] [address] documented as of this encounter
--- OUTSIDE RECORDS SUMMARY | 2022-01-08 10:47 | XMS_ITS | Clinical Summary ---
:1970 Author Organization [facility] Address [address] [place] [address] Care Team Providers Name Role Phone None, Pcp Primary Care Provider Unavailable Allergies Active Allergy Reactions Severity Noted Date Comments Adhesive Tape Rash 01/30/2015 Hydrocodone Itching Medium 02/12/2013 Other reaction( s): Itching Pruritu s anxiety Hydrocodone-Acetaminophe Itching, Nausea 08/28/2014 Per [facility], reaction n Only, Nausea And unknown Vomiting Hydromorphone Medium 10/06/2017 Other reaction (s): Itching Pruritu s No hives noted anxiety Iodine Anaphylaxis, Nausea High 08/28/2014 Fainting , SOB And Vomiting, Other fainting (see comments), Shortness of breath Pecan Extract Allergy Angioedema, Swelling Medium 01/30/2015 Other reaction(s): Skin Test Generalized Stan ma Pecan Nut (Diagnostic) Swelling 09/02/2020 Immunizations Name Administration Dates Next Due PPD Test 02/23/2021, 02/16/2021 Social History Tobacco Use Types Packs/Day Years Used Date Never Assessed Sex Assigned at Date Recorded Not on file Plan of Treatment Health Maintenance Due Date Last Done Comments Mammogram 1970 Pap Smear 1970 Zoster Vaccines (1 of 2) 12/30/2021 Colorectal Cancer 11/19/2030 11/19/2020 Screening: Colonoscopy COVID-19 Vaccine Completed 11/13/2021, 08/06/2021, 05/15/2020, Additional history exists HPV Vaccines Aged Out No longer eligib le based on patient 's age to complete this topic Pneumococcal Vaccine: Aged Out No longer eligible Pediatrics (0 to 5 Years) based on patient's age and At-Risk Patients (6 to to co mplete this topic 64 Years) Care Teams Destination Sign Repairer Relationship Specialty Start Date End Date None, Pcp PCP - General Shipyard Laborer 02/16/21 [address] [place] [address]
--- OUTSIDE RECORDS SUMMARY | 2022-01-08 10:47 | XMS_ITS | Encounter Summary ---
:1970 Author Organization [facility] Address [address] [place] [address] Care Team Providers Name Role Phone None, Pcp Primary Care Provider Unavailable Reason for Visit Reason Comments Immunizations PPD Encounter Details Date Type Department Care Team Description 02/23/2021 Immunization [place] [address] [facility] [address] [place], [place] [address] Social History Tobacco Use Types Packs/Day Years Used Date Never Assessed Sex Assigned at Date Recorded Not on file documented as of this encounter Progress Notes Haritha Castro RN - 02/23/2021 2:00 PM CDT Patient instructed to return in 48-72 hours for Ppd read. documented in this encounter Plan of Treatment Not on filedocumented as of this encounter Visit Diagnoses Not on filedocumented in this encounter Care Teams Board Certified Behavioral Analyst Relationship Specialty Start Date End Date None, Pcp PCP - General Showroom Salesperson 02/16/21 [address] [place] [address] documented as of this encounter
--- OUTSIDE RECORDS SUMMARY | 2022-01-08 10:47 | XMS_ITS | Encounter Summary ---
:1970 Author Organization [facility] Address [address] [place] [address] Care Team Providers Name Role Phone None, Pcp Primary Care Provider Unavailable Encounter Details Date Type Department Care Team Description 02/23/2021 Telephone [place] None, Pcp [address] [place], [place] [address] [place] [address] Social History Tobacco Use Types Packs/Day Years Used Date Never Assessed Sex Assigned at Date Recorded Not on file documented as of this encounter Miscellaneous Notes Telephone Encounter - Haritha Castro RN - 02/23/2021 1:41 PM CDT Patient coming in this afternoon for an additional PPD. Please sign order if able. documented in this encounter Plan of Treatment Pending Results Name Type Priority Associated Diagnoses Date/Ti me TB Skin Test Point of Care Routine Screening for 02/26/2021 8: 45 AM Testing tuberculosis CDT documented as of this encounter Visit Diagnoses Diagnosis Screening for tuberculosis - Primary Screening examination for pulmonary tube rculosis documented in this encounter Care Teams Reshipping Clerk Relationship Specialty Start Date End Date None, Pcp PCP - General City Dispatcher 02/16/21 [address] [place] [address] documented as of this encounter
== END 2021-12-30 14:25 | disposition home or self-care (01) ==
LOC: NFLDREF 01-08 09:24
PROVIDERS: PCP Internal Medicine; Visit Provider Internal Medicine
DX: R35.0 Frequency of micturition (principal); R30.0 Dysuria; N39.0 Urinary tract infection, site not specified
CPT/HCPCS: 87086; 87186

== ENCOUNTER 2022-02-16 14:52 | Outpatient (CLI) | payer BC, SELFPAY ==
--- OUTSIDE RECORDS SUMMARY | 2022-02-16 14:58 | XMS_ITS | Encounter Summary ---
:1970 Author Organization [facility] Address [address] [place] [address] Care Team Providers Name Role Phone Elsewhere, Pcp Primary Care Provider Unavailable Reason for Referral Outpatient (Routine) - Closed Specialty Diagnoses / Procedures Referred By Contact Refer red To Contact Diagnoses Gastro-Esophageal Reflux Disease With Esophagitis Without Bleeding Julián Edouard M.D. [facility] Procedures ECG 12 [address] [place] [address] Referral ID Status Reason Start Date Expiration Date Visits Requ ested Visits Authorized [id number] Closed 12/02/2021 12/02/2022 1 1 Outpatient (Routine) - Closed Specialty Diagnoses / Procedures Referred By Contact Refer red To Contact Thoracic Surgery Diagnoses Gastro-Esophageal Reflux Disease With Esophagitis Without Bleeding Julián Edouard [place] M.D. [address] [place] [address] Referral ID Status Reason Start Date Expiration Date Visits Requ ested Visits Authorized [id number] Closed 12/02/2021 12/02/2022 1 1 Encounter Details Date Type Department Care Team Description 12/02/2021 Orders Only Division of [place] Edouard al Gastroenterology in Julián Narayan M.D. Reflux Disease With [place], [place] [address] [facility] Esophagitis Without [address] [place], [place] Bleeding (Primary Dx) [place] [phone] Social History Tobacco Use Types Packs/Day Years [...] more drinks on one Never 11/16/2021 occasion? Social Isolation Answer Date Recorded In a [...] as of this encounter Plan of Treatment Scheduled Referrals Name Type Priority Associated Diagnoses Order S chedule Thoracic Surgery - Outpatient Referral Routine Gastro-Esophage al Expected: Esophagus consult Reflux Disease With 06/2021 (clinic) Esophagitis Without (Approxi mate), Bleeding Expires: 03/04/2023 documented as of this encounter Results ECG 12 Lead (01/08/2022 1:52 PM CDT) P athologist Signature Ventricular Rate 82 BPM MUSE ECG/Min IA Interval 136 ms MUSE QRSD Interval 98 ms MUSE QT Interval 406 ms MUSE QTC Interval 474 ms MUSE P Drifting 40 degrees MUSE R Drifting -22 degrees MUSE T Wave Drifting 39 degrees MUSE Specimen Anatomical Collection Method Collection Time Receive d Time (Source) Location / / Volume Laterality 01/08/2022 1:52 PM 2 1:56 CDT PM CDT Impressions MUSE - 01/08/2022 1:56 PM CDT Normal sinus rhythm Normal ECG When compared with ECG of 05-APR-2018 13 :04, No significant change was found Reviewed by PIOTR Kaur Narrative This result has an attachment that is no t available. Procedure Note Alverto Todd Jr., M.D. - 01/08/2022For matting of this note might be different from the original. IMPRESSION: Normal sinus rhythm Normal ECG When compared with ECG of 05-APR-2018 13 :04, No significant change was found Reviewed by PIOTR Kaur Julián Edouard M.D. ECG ORDERABLES Performing Organization Address City/State/ZIP Code Phon e Number MUSE MUSE NA documented in this encounter Visit Diagnoses Diagnosis Gastro-Esophageal Reflux Disease With Es ophagitis Without Bleeding - Primary documented in this encounter Additional Health Concerns Assessment Noted Time PHQ-9 Depression Total Score: 15 04/21/2018 1:00 PM CS T documented as of this encounter Care Teams Career Development Engineer Relationship Specialty Start Date End Date Elsewhere, Pcp PCP - General Internal Medicine 10/22/19 documented as of this encounter
--- OUTSIDE RECORDS SUMMARY | 2022-02-16 14:58 | XMS_ITS | Encounter Summary ---
:1970 Author Organization [facility] Address [address] [place] [address] Care Team Providers Name Role Phone Elsewhere, Pcp Primary Care Provider Unavailable Reason for Referral Outpatient (Routine) - Authorized Specialty Diagnoses / Procedures Referred By Contact Refer red To Contact Diagnoses Gastro-Esophageal Reflux Disease With Esophagitis Without Bleeding Julián Edouard M.D. [facility] Procedures Esophageal pH Testing [address] [place] [address] Referral ID Status Reason Start Date Expiration Date Visits V isits Requested Authorized [id number] Authorized 11/17/2021 11/17/2022 3 3 Outpatient (Routine) - Authorized Specialty Diagnoses / Procedures Referred By Contact Refer red To Contact Diagnoses Gastro-Esophageal Reflux Disease With Esophagitis Without Bleeding Julián Edouard M.D. [facility] Procedures Esophageal Manometry [address] [place] [address] Referral ID Status Reason Start Date Expiration Date Visits V isits Requested Authorized [id number] Authorized 11/17/2021 11/17/2022 3 3 Reason for Visit Outpatient (Routine) - Authorized Specialty Diagnoses / Procedures Referred By Contact Refer red To Contact Diagnoses Gastro-Esophageal Reflux Disease With Esophagitis Without Bleeding Julián Edouard M.D. [facility] Procedures Esophageal pH Testing [address] [place], [place] [address] Referral ID Status Reason Start Date Expiration Date Visits V isits Requested Authorized [id number] Authorized 11/17/2021 11/17/2022 3 3 Encounter Details Date Type Department Care Team Description 11/30/2021 Hospital Encounter Division of [place], Gastro-Es ophageal Gastroenterology in Julián Narayan M.D. Reflux Disease With [place], [place] [address] Esophagitis Without [address] [place] [address] [facility]ly [facility] [phone] [place] [address] Social History Tobacco Use Types Packs/Day Years [...] More than 4 times per year 11/16/2021 anabaptism services? Do you belong to any clubs [...] total) Arthritis Inflammatory by mouth daily. (HCC) hydrOXYzine (ATARAX) 25 Take 25 mg by mouth 0 mg tablet every 6 (six) hours as needed for itching. ketorolac (TORADOL) 10 mg Take 1 tablet (10 20 tablet 0 tablet mg total) by mouth every 6 (six) hours as needed for pain. modafiniL (PROVIGIL) 100 Take 100 mg by [...] 20 Take 1 tablet (20 180 tablet 11 08/2021 mg EC tablet mg total) by [...] once again after 1h if no effect. tranexamic acid (LYSTEDA) Take 650 mg by 0 650 mg tablet mouth daily. hydrOXYchloroQUINE Take 1-2 tablets 135 tablet 3 08/06/2021 01/28/2022 (PLAQUENIL) 200 mg (200-400 mg total) tabletIndications: by mouth daily. Arthritis Inflammatory Take 1 tab on odd (HCC) days and 2 tabs on even days methotrexate 25 mg/mL Inject 1 mL (25 mg 12 mL 1 202101/28/2022 injectionIndications: total) under the Arthritis Inflammatory skin once a week. (HCC) Labs needed for further refills. syringe with needle (BD Inject 1 Syringe 12 Syringe 3 202001/28/2022 Tuberculin Syringe) 1 mL under the skin once 27 x 1/2 syringe a week. For use with weekly Methotrexate injections documented as of this encounter Procedure Notes [...] Name Priority Date/Time Associated Diagnosis Comme nts OK PH STUDY NASL Routine 12/01/2021 1:39 PM Gastro-Esophageal Results for this CATH CDT Reflux Disease With procedur e are in Esophagitis Without the resu lts Bleeding section. ESOPHAGEAL MANOMETRY Routine 11/30/2021 9:45 AM Gastro-Esophag eal Results for this CDT Reflux Disease With procedur e are in Esophagitis Without the resu lts Bleeding section. documented in this encounter Results OK PH STUDY NASL CATH (12/01/2021 1:39 PM CDT) Narrative [employer] - 12/01/2021 1:39 PM CDT Dae Mgcee M.B., B.Chir. ? 12/01/2021 ??1:46 PM Esophageal pH Testing Date/Time: 12/01/2021 1:39 PM Performed by: Dae Mcgee M.B., B. Chir. Authorized by: Julián Edouard M.D. Julián Edouard M.D. GI PROCEDURE ORDERABLES Performing Organization Address [facility] Code Phon e Number [employer] CUELLAR [...] M.D. GI PROCEDURE ORDERABLES Performing Organization Address [facility] Phon e Number MMODAL MMODAL NA documented [...] nasal, As needed, other, procedure, Starting on Tue11/30/21 at 0933, For 2 doses, For esophageal manometry or pH/24 hour impedance probe: administer in an unobstructed nostril once. May repeat once. documented in this encounter Additional Health Concerns Assessment Noted Time PHQ-9 Depression Total Score: 15 04/21/2018 1:00 PM CS T documented as of this encounter Care Teams Assistant Dean Of Students Relationship Specialty Start Date End Date Elsewhere, Pcp PCP - General Internal Medicine 10/22/19 documented as of this encounter
--- OUTSIDE RECORDS SUMMARY | 2022-02-16 14:58 | XMS_ITS | Encounter Summary ---
:1970 Author Organization [facility] Address [address] [place] [address] Care Team Providers Name Role Phone Elsewhere, Pcp Primary Care Provider Unavailable Reason for Referral Outpatient (Routine) - Authorized Specialty Diagnoses / Procedures Referred By Contact Refer red To Contact Rheumatology Velma Munson APRN, [place] C.N.P. [address] [place], [place] [phone] Referral ID Status Reason Start Date Expiration Date Visits V isits Requested Authorized [id number] Authorized 11/17/2021 11/17/2022 1 1 Reason for Visit Outpatient (Routine) - Closed Specialty Diagnoses / Procedures Referred By Contact Refer red To Contact Rheumatology Velma Munson APRN [facility] C.N.P. [address] [place], [place] [address] Referral ID Status Reason Start Date Expiration Date Visits Requ ested Visits Authorized [id number] Closed 08/06/2021 08/06/2022 1 1 Encounter Details Date Type Department Care Team Description 11/16/2021 Office Visit Division of Velma Munson Arthritis In flammatory (HCC) (Primary Dx); Rheumatology in LONG Schwartz, C.N.P. High Risk Medication [place], [place] [address] [facility] [address] [place] [phone] Social History Tobacco Use Types Packs/Day Years [...] global assessment (0-100) 12 60 4 50 Metal Smelter global assessment (0-100) 20 30 20 30 ESR (mm/h) 13 17 -- -- CRP (mg/L) 5 4.8 -- -- Disease Activity Score 28 using ESR (XHL60-UGV) 2.52 3.62 -- -- Disease Activity Score 28 using CRP ([id number]) 2.33 3.22 -- -- Clinical Disease Activity [...] documented in this encounter Plan of Treatment Scheduled Orders Name Type Priority Associated Diagnoses Order S chedule CBC with Differential, Lab Routine Arthritis Inflamma tory Expected: 02/17/2022 Blood ([facility]) (Approximate), Expires: 2022 Sedimentation Rate Lab Routine Arthritis Inflammatory Expected: 02/17/2022 ([facility]) (Approximate), Expires: 2022 CRP (C-Reactive Protein) Lab Routine Arthritis Inflam matory Expected: 02/17/2022 ([facility]) (Approximate), Expires: 2022 Creatinine with Estimated Lab Routine Arthritis Infla mmatory Expected: 02/17/2022 GFR ([facility]) (Approximate), Expires: 2022 AST (Aspartate Lab Routine Arthritis Inflammatory Exp ected: 02/17/2022 Aminotransferase) ([facility]) (Approxima te), Expires: 2022 Scheduled Referrals Name [...] documented as of this encounter Care Teams Speed Reading Teacher Relationship Specialty Start Date End Date Elsewhere, Pcp PCP - General Internal Medicine 10/22/19 documented as of this encounter
--- OUTSIDE RECORDS SUMMARY | 2022-02-16 14:58 | XMS_ITS | Encounter Summary ---
:1970 Author Organization [facility] Address [address] [place] [address] Care Team Providers Name Role Phone Elsewhere, Pcp Primary Care Provider Unavailable Encounter Details Date Type Department Care Team Description 11/30/2021 Clinical Communication Division of [place], Gastroenterology in Julián Narayan M.D. [place], [place] [address] [facility] [address] [place] [address] [phone] Social History Tobacco Use Types Packs/Day Years [...] documented as of this encounter Care Teams Yard Motor Operator Relationship Specialty Start Date End Date Elsewhere, Pcp PCP - General Internal Medicine 10/22/19 documented as of this encounter
--- OUTSIDE RECORDS SUMMARY | 2022-02-16 14:58 | XMS_ITS | Encounter Summary ---
:1970 Author Organization [facility] Address [address] [place] [address] Care Team Providers Name Role Phone Elsewhere, Pcp Primary Care Provider Unavailable Reason for Visit Outpatient (Routine) - Closed Specialty Diagnoses / Procedures Referred By Contact Refer red To Contact Thoracic Surgery Diagnoses Gastro-Esophageal Reflux Disease With Esophagitis Without Bleeding [facility] [address] [place] [address] Referral ID Status Reason Start Date Expiration Date Visits Requ ested Visits Authorized [id number] Closed 12/02/2021 12/02/2022 1 1 Encounter Details Date Type Department Care Team Description 01/08/2022 Comprehensive Visit Division of Rikki Duncan, Gastro -Esophageal Thoracic Surgery in Gerardo Rendon M.D. Reflux Disease With [address] Esophagitis Without [place], [place] Bleeding [address] [place] [address] [place], [place] [phone] (Work) [phone] Social History Tobacco Use Types Packs/Day Years [...] documented as of this encounter Consult Notes Gerardo Raphael M.D. - 01/08/2022 2:30 PM CDT SUBJECTIVE THORACIC SURGERY REFERRING PROVIDER: Julián Edouard M.D. REASON FOR CONSULT: Consultation for gastroesophageal reflux and hiatal hernia. HISTORY OF PRESENT ILLNESS Waleska Diaz is a 51 y.o. female patient, never smoker and with a history of rheumatoid arthritis, who presents today for consultation due to severe gastroesophageal reflux in the setting of ahiatal hernia. She has a longstanding history of heartburn, regurgitation all the way to the oropharynx that has resulted at times in a hoarse voice and left ear pain. She has implemented lifestyle modifications and is taking a proton pump inhibitor twice a day, famotidine, and Carafate. Despite medical therapy, she continues to have severe gastroesophageal reflux. An EGD on 11/13/2021 showed LA grade B esophagitis and the presence of a medium-sized hiatal hernia extending from 33- 36 cm from the incisors. A pH test with impedance while on PPI therapy on 12/01/2021 showed a total time with a pH lessthan 4 of 10.4%, a DeMeester score of 28.1, and 103 impedance detected reflux events. High-resolution esophageal manometry on 11/30/2021 was consistent with ineffective esophageal motility with 2 failed swallows in 3 weeks swallows. An esophagram showed a patulous gastroesophageal junction with a spontaneous gastroesophageal reflux observed to the level of the thoracic inlet. There was a small sliding hiatal hernia. She was referred to Thoracic Surgery for management recommendations. REVIEW OF SYSTEMS: Pertinent items are noted in the history of present illness; all other review of systems was negative. MEDICAL HISTORY: Past Medical History: Diagnosis Date Adverse Reaction Anesthetic Personal History Anemia Anxiety Generalized Disorder Arthritis Rheumatoid (HCC) Concussion Loss Of Consciousness Unspecified Duration Initial Depressive Disorder Fibromyalgia Gallbladder Disorder Gastroesophageal Reflux Disease NOS Headache Unspecified Hypertension NOS Irritable Bowel Syndrome Without Diarrhea Migraine Headache Seizure (HCC) RELEVANT SURGICAL HISTORY: Laparoscopic band placement Laparoscopic band removal Bladder surgery Cholecystectomy Breast surgery Hernia repair Tonsillectomy MEDICATIONS: Current Outpatient Medications Medication Instructions acetaminophen (TYLENOL) 500 mg, oral, As needed ALPRAZOLAM ORAL 2 mg, oral, Bedtime PRN aspirin/acetaminophen/caffeine (EXCEDRIN MIGRAINE ORAL) 1 tablet, oral, As needed vmnvbuqvfj-lborxhnsvlkst-vukv (ESGIC) 50-325-40 mg per tablet 1 tablet, oral, Every 4 hours PRN dextroamphetamine-amphetamine (ADDERALL) 30 mg tablet 45 mg, oral, Every morning diclofenac sodium (VOLTAREN) 2 g, topical, 4 times daily, Apply to hands. diphenhydramine-lidocaine 2 %-antacid (mw) 5-10 mL, oral, 4 times daily after meals and bedtime, Hold in mouth for 1 minute.Do not eat or drink for 15-30 minutes after use. famotidine (PEPCID) 40 mg, oral, 2 times daily folic acid 2,000 mcg, oral, Daily hydrOXYchloroQUINE (PLAQUENIL) 200-400 mg, oral, Daily, Take 1 tab on odd days and 2 tabs on even days hydrOXYzine (ATARAX) 25 mg, oral, Every 6 hours PRN ketorolac (TORADOL) 10 mg, oral, Every 6 hours PRN methotrexate 25 mg, subcutaneous, Weekly, Labs needed for further refills. modafiniL (PROVIGIL) 100 mg, oral, Daily pantoprazole (PROTONIX) 40 mg, oral, 2 times daily pilocarpine (SALAGEN) 5 mg, oral, 3 times daily RABEprazole (ACIPHEX) 20 mg, oral, 2 times daily before breakfast and dinner sucralfate (CARAFATE) 1 g, oral, 4 times daily, Take 1 hour before meals and at bedtime SUMAtriptan (IMITREX STATDOSE) 6 mg/0.5 mL injection pen subcutaneous, Continuous Infusion: Per Instructions PRN, Uses 2-4x/month for migraine. Uses once and then once again after 1h if no effect. syringe with needle (BD Tuberculin Syringe) 1 mL 27 x 1/2 syringe 1 Syringe, subcutaneous, Weekly,For use with weekly Methotrexate injections tranexamic acid (LYSTEDA) 650 mg, oral, Daily ALLERGIES: Allergies Allergen Reactions Pecan Nut Swelling, Edema and Angioedema Adhesive Tape-Silicones Rash Hydrocodone-Acetaminophen Other (see comments), Itching and Nausea Only Per MICS, reaction unknown Iodine Other (see comments) and Shortness of breath fainting SMOKING HISTORY: Social History Tobacco Use Smoking status: Never Smokeless tobacco: Never OBJECTIVE PHYSICAL EXAM: Other than noted above, no relevant physical exam findings. DATA: LABORATORY: Lab Results Component Value Date WBC 6.5 11/03/2021 HGB 15.0 11/03/2021 HCT 46.2 (H) 11/03/2021 PLT 304 11/03/2021 Lab Results Component Value Date NA 142 07/18/2017 KSERUM 3.4 (L) 07/18/2017 CL 102 07/18/2017 CREATININE 0.91 11/03/2021 BUN 10 07/18/2017 CALCIUM 9.0 07/18/2017 Lab Results Component Value Date AST 22 11/03/2021 ECO - Fully active, able to carry on all pre-disease performance without restriction IMAGING: FL Esophagram Double Contrast (Result Date: 01/08/2022): EXAM: FL ESOPHAGRAM DOUBLE CONTRAST COMPARISON: Abdominal x-ray 07/27/2017. Double contrast esophagram performed. Large caliber distal two thirds of esophagus. Patulous gastroesophageal junction. Normal esophageal peristalsis. Small sliding hiatal hernia. Spontaneous gastroesophageal reflux observed to the level of the thoracic inlet. Interval removal of laparoscopic gastric band. Cholecystectomy clips. ASSESSMENT / PLAN Waleska Diaz is a 51 y.o. female patient who presents today for consultation of severe gastroesophageal reflux despite maximal medical therapy in the setting of a type 1 paraesophageal hernia.I explained to her the role of surgery in the management of severe gastroesophageal reflux, in particular, in the presence of a hiatal hernia. Surgery would involve a minimally invasive laparoscopic paraesophageal hernia repair with a Sergio fundoplication. This has a high likelihood in resulting in improvement of her symptoms even to a point where she could stop taking PPIs and H2 blockers. I answered multiple questions that she had about surgical treatment. She is still considering her options and is not ready to make a decision regarding surgery. However, she will contact us if she decides to pursue this management strategy. She was appreciative of my consultation. RECOMMENDATION: -She is a good candidate to proceed with EGD, robotic assisted paraesophageal hernia repair, Sergio fundoplication. -She will contact us if she wants to proceed in this fashion. -She will need to stop methotrexate 2 weeks before surgery -She will need updated preoperative labs if proceeding with surgery. PATIENT EDUCATION I spent time with the patient on education of the pertinent clinical matters. The patient was ready to learn with no apparent significant learning barriers identified. We concluded that learning preferences include listening. I explained the diagnosis and treatment plan in detail. I discussed the risks, benefits, and alternatives of the planned procedure. I also discussed the possibility and implications of blood transfusion. We discussed advance directives and the necessity of other members of the healthcare team participating in the procedure. We discussed issues of surgical scheduling and the possibility of overlapping or sequential surgical procedures. I answered all of the patient's questions. The patient clearly expressed understanding of the content reviewed and the patient agrees to proceed. More than 50% of the time was spent in education, counseling, and coordinating the patient's care. I spent 30 minutes with the patient and at least 25 minutes were spent in consultation. documented in this encounter Plan of Treatment Not on filedocumented as of this encounter Visit Diagnoses Diagnosis Gastro-Esophageal Reflux Disease With Es ophagitis Without Bleeding documented in this encounter Additional Health Concerns Assessment Noted Time PHQ-9 Depression Total Score: 15 04/21/2018 1:00 PM CS T documented as of this encounter Care Teams Motion Picture Cameraman Relationship Specialty Start Date End Date Elsewhere, Pcp PCP - General Internal Medicine 10/22/19 documented as of this encounter
--- OUTSIDE RECORDS SUMMARY | 2022-02-16 14:58 | XMS_ITS | Encounter Summary ---
:1970 Author Organization [facility] Address [address] [place] [address] Care Team Providers Name Role Phone Elsewhere, Pcp Primary Care Provider Unavailable Reason for Visit Outpatient (Routine) - Authorized Specialty Diagnoses / Procedures Referred By Contact Refer red To Contact Diagnoses Gastro-Esophageal Reflux Disease With Esophagitis Without Bleeding Julián Edouard M.D. [facility] Procedures Esophageal pH Testing [address] [place], [place] [address] Referral ID Status Reason Start Date Expiration Date Visits V isits Requested Authorized [id number] Authorized 11/17/2021 11/17/2022 3 3 Encounter Details Date Type Department Care Team Description 12/01/2021 Hospital Encounter Division of Robert Edouard-Es ophageal Gastroenterology in Julián Narayan M.D. Reflux Disease With [place], [place] [address] Esophagitis Without [address] Bleeding (Primary [place], [place] [phone] [place], ) [phone] [place] [phone] Social History Tobacco Use Types Packs/Day Years [...] mg Take 1 tablet (40 180 tablet 11 08/2021 tablet mg total) by mouth 2 [...] Name Priority Date/Time Associated Diagnosis Comme nts MD PH STUDY NASL Routine 12/01/2021 1:39 PM Gastro-Esophageal Results for this CATH CDT Reflux Disease With procedur e are in Esophagitis Without the resu lts Bleeding section. documented in this encounter Results MD PH STUDY NASL CATH (12/01/2021 1:39 PM CDT) Narrative [employer] - 12/01/2021 1:39 PM CDT Dae Mcgee M.B., Nellie. ? 12/01/2021 ??1:46 PM Esophageal pH Testing Date/Time: 12/01/2021 1:39 PM Performed by: Dae Mcgee M.B., [place] Authorized by: Julián Edouard M.D. Julián Edouard M.D. GI PROCEDURE ORDERABLES Performing Organization Address City/State/ZIP Code Phon e Number [employer] [place] [employer] NA Esophageal Manometry (11/30/2021 9:45 AM [...] as of this encounter Care Teams Wire Wrapping Machine Operator Relationship Specialty Start Date End Date Elsewhere, Pcp PCP - General Internal Medicine 10/22/19 documented as of this encounter
--- OUTSIDE RECORDS SUMMARY | 2022-02-16 14:58 | XMS_ITS | Clinical Summary ---
:1970 Author Organization [facility] [place] [address] Care Team Providers Name Role Phone Katerina [...] Tongue pain fluticasone (50 mcg Inhale 1 [place] into 1 Bottle 2 01/27/20 Active per [...] disease (HC). Has seen Rheumat ology at [place]. 08/23/2016 Overview: Diagnosis of MCTD made in at [facility] when living in [place]. Lesion of pituitary gland (HC). 4mm. stable. last note d on MRI 2013 in 08/23/2016 [place] Attention deficit hyperactivity disorder (ADHD), predo minantly [...] history exists COVID-19 vaccine series (4 - 10/01/2021 08/06/2021, 021, Booster for Pfizer series) 04/24/2020 [...] Type Group BLUE CROSS BL[employer] OF [id number] 2014-Present [address] [address] [place] [address] Care Teams Bottle Sorter Relationship Specialty Start Date End Date Pcp, No PCP - General 02/28/19 . Katerina Contreras Custom Protection Officer 07/21/16
--- OUTSIDE RECORDS SUMMARY | 2022-02-16 14:58 | XMS_ITS | Encounter Summary ---
:1970 Author Organization [facility] Address [address] [place] [address] Care Team Providers Name Role Phone Elsewhere, Pcp Primary Care Provider Unavailable Encounter Details Date Type Department Care Team Description 11/30/2021 Clinical Communication Division of [place], Gastroenterology in Julián Narayan M.D. [place], [place] [address] [facility] [address] [place] [address] [phone] Social History Tobacco Use Types Packs/Day Years [...] documented as of this encounter Care Teams Dial Lathe Operator Relationship Specialty Start Date End Date Elsewhere, Pcp PCP - General Internal Medicine 10/22/19 documented as of this encounter
--- OUTSIDE RECORDS SUMMARY | 2022-02-16 14:58 | XMS_ITS | Encounter Summary ---
:1970 Author Organization [facility] Address [address] [place] [address] Care Team Providers Name Role Phone Elsewhere, Pcp Primary Care Provider Unavailable Reason for Visit Reason Comments COVID Nurse Line Encounter Details Date Type Department Care Team Description 01/06/2022 Nurse Triage Division of [facility] Belen Connelly C OVID Nurse Line Internal Medicine, M.Lucie, [place], [facility], [place] [address] [facility] [address] [place] [phone] Social History Tobacco Use Types Packs/Day Years [...] a COVID booster. She was advised that [facility] has a temporary pause on scheduling of [...] documented as of this encounter Care Teams Spray Gun Repairer Relationship Specialty Start Date End Date Elsewhere, Pcp PCP - General Internal Medicine 10/22/19 documented as of this encounter
--- OUTSIDE RECORDS SUMMARY | 2022-02-16 14:58 | XMS_ITS | Encounter Summary ---
:1970 Author Organization [facility] Address [address] [place] [address] Care Team Providers Name Role Phone Elsewhere, Pcp Primary Care Provider Unavailable Encounter Details Date Type Department Care Team Description 12/01/2021 Orders Only Pharmacy Prior Auth Violetta Epperson [phone] Social History Tobacco Use Types Packs/Day Years [...] as of this encounter Care Teams Commercial Green Building Designer Relationship Specialty Start Date End Date Elsewhere, Pcp PCP - General Internal Medicine 10/22/19 documented as of this encounter
--- OUTSIDE RECORDS SUMMARY | 2022-02-16 14:58 | XMS_ITS | Clinical Summary ---
:1970 Author Organization [facility] Address [address] [place] [address] Care Team Providers Name Role Phone Elsewhere, Pcp Primary Care Provider Unavailable Source Comments Patient records contain information from all sites at [facility]. For routine questions regarding patient records, call [phone] during business hours, M-F 8:00 AM - 5:00 PM Central Time. Record requests for emergency care only can be directed to [phone] at any time.[facility] Allergies Active Allergy Reactions Severity Noted Date Comments Adhesive Rash 01/30/2015 Tape-Silicones Hydrocodone-Acetamino Other (see comments), 08/28/2014 Per [facility], reaction phen Itching, Nausea Only unknow n Iodine Other (see comments), 08/28/2014 fainti ng Shortness of breath Pecan Nut Swelling, Edema, Medium 01/30/2015 Angioedema Medications Medication Sig Dispensed Refills Start End Status Date Date SUMAtriptan (IMITREX Inject under 0 03/19/20 Active STATDOSE) 6 mg/0.5 mL the skin as 15 injection pen needed. Uses 2-4x/month for migraine. Uses once and then once again after 1h if no effect. dextroamphetamine-amp Take 45 mg by 0 Active hetamine (ADDERALL) mouth every 30 mg tablet morning. hydrOXYzine (ATARAX) Take 25 mg by 0 Active 25 mg tablet mouth every 6 (six) hours as needed for itching. acetaminophen Take 500 mg by 0 A ctive (TYLENOL) 500 mg mouth as tablet needed. aspirin/acetaminophen Take 1 tablet 0 Active /caffeine (EXCEDRIN by mouth as MIGRAINE ORAL) needed. ALPRAZOLAM ORAL Take 2 mg by 0 A ctive mouth at bedtime as needed for anxiety. modafiniL (PROVIGIL) Take 100 mg by 0 Active 100 mg tablet mouth daily. diphenhydramine-lidoc Take 5-10 mL by 480 mL 08/13/19 Active chay 2 %-antacid (mw) mouth 4 (four) 21 times a day after meals and bedtime. Hold in mouth for 1 minute.Do not eat or drink for 15-30 minutes after use. diclofenac sodium Apply 2 g 100 g 1 11/07/19 Ac tive (Voltaren) 1 % gel topically 4 21 (four) times a day. Apply to hands. tranexamic acid Take 650 mg by 0 Active (LYSTEDA) 650 mg mouth daily. tablet pantoprazole Take 1 tablet 60 tablet 11 11/27/19 Act rosalba (PROTONIX) 40 mg EC (40 mg total) 21 tablet by mouth 2 (two) times a day. butalbital-acetaminop Take 1 tablet 0 Active hen-caff (ESGIC) by mouth every 50-325-40 mg per 4 (four) hours tablet as needed. folic acid 1 mg Take 2 tablets 180 tablet 3 08/07/19 Active tabletIndications: (2,000 mcg 22 Arthritis total) by mouth Inflammatory (HCC) daily. pilocarpine (SALAGEN) Take 1 tablet 90 tablet 11 08/07/19 Active 5 mg (5 mg total) by 22 tabletIndications: mouth 3 (three) Xerostomia times a day. famotidine (PEPCID) Take 1 tablet 180 tablet 11 11/04/19 Active 40 mg tablet (40 mg total) 22 by mouth 2 (two) times a day. RABEprazole (ACIPHEX) Take 1 tablet 180 tablet 11 11/04/19 Active 20 mg EC tablet (20 mg total) 22 by mouth 2 (two) times a day before breakfast and dinner. sucralfate (CARAFATE) TAKE 1 TABLET 360 tablet 3 11/17/19 Active 1 gram tablet (1 G TOTAL) BY 22 MOUTH 4 (FOUR) TIMES A DAY. TAKE 1 HOUR BEFORE MEALS AND AT BEDTIME ketorolac (TORADOL) Take 1 tablet 20 tablet 0 11/17/19 Active 10 mg tablet (10 mg total) 22 by mouth every 6 (six) hours as needed for pain. hydrOXYchloroQUINE Take 1-2 135 tablet 0 01/29/20 Active (PLAQUENIL) 200 mg tablets 22 tabletIndications: (200-400 mg Arthritis total) by mouth Inflammatory (HCC) daily. Take 1 tab on odd days and 2 tabs on even days methotrexate 25 mg/mL Inject 1 mL (25 12 mL 0 01/29/20 Active injectionIndications: mg total) under 22 Arthritis the skin once a Inflammatory (HCC) week. Labs needed for further refills. syringe with needle Inject 1 12 each 1 01/29/20 Active (BD Tuberculin Syringe under 22 Syringe) 1 mL 27 x the skin once a 1/2 syringe week. For use with weekly Methotrexate injections syringe with needle Inject 1 12 Syringe 3 11/01/19 Discontinued (BD Tuberculin Syringe under 21 022 ( Reorder) Syringe) 1 mL 27 x the skin once a 1/2 syringe week. For use with weekly Methotrexate injections hydrOXYchloroQUINE Take 1-2 135 tablet 3 08/07/19 Discontinued (PLAQUENIL) 200 mg tablets 22 022 ( Reorder) tabletIndications: (200-400 mg Arthritis total) by mouth Inflammatory (HCC) daily. Take 1 tab on odd days and 2 tabs on even days methotrexate 25 mg/mL Inject 1 mL (25 12 mL 1 08/07/19 Discontinued injectionIndications: mg total) under 22 02 2 (Reorder) Arthritis the skin once a Inflammatory (HCC) week. Labs needed for further refills. 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 01/08/2022 Comprehensive Visit Thoracic Surgery [facility] Eli ro-Esophageal Duncan, Gerardo Reflux Disease F, Alex With Esophagiti s Without Bleedin g 01/08/2022 Hospital Encounter Radiology [place], Gastro-Es ophageal Julián Narayan M.D. Reflux Disease With Esophagiti s Without Bleedin g 01/06/2022 Nurse Triage [facility] Internal [facility] Charla Flores., R.N., N.E.-B.C. 12/02/2021 Orders Only Gastroenterology and [...] Without Bleedin g 11/30/2021 Clinical Gastroenterology and Sil[place], Communication Hepatology Julián Narayan M.D. 11/30/2021 Clinical Gastroenterology and [place] Communication Hepatology Julián Narayan M.D. 11/17/2021 Orders Only Gastroenterology and [place], Gastro- Esophageal Hepatology Julián Narayan M.D. Reflux Disease With Esophagiti s Without Bleedin g (Primary Dx) 11/16/2021 Office Visit Rheumatology Jeimy, Arthritis Infla mmatory (HCC) (Primary Dx); Velma Schwartz, High Risk Medic ation RN ONCOLOGY RESEARCH, C.N.P. from Last 3 Months Immunizations Name Administration [...] 01/23/2020, (FLUZONE/FLUARIX) (6 months and 12/21/2018, 02/16/2017, 1005/2016, older)(PF) 02/09/2016, 02/05/2015 Family History Medical History Relation Name Comments Diabetes Father nichole velasquez Alcohol abuse Maternal Grandfather reagan bah Coronary artery disease Maternal Grandfather reagan bah Diabetes Maternal Grandfather reagandudley bah Hypertension Maternal Grandfather reagandudley bah Arthritis Maternal Grandmother jose e bah Hypertension Maternal Grandmother jose e bah Migraines Maternal Grandmother jose e bah Stroke Maternal Grandmother jose e bah Transient ischemic attack Maternal Grandmother jose [...] Grandfather reagan bah Maternal Grandmother jose e johnsonales Mother apple jose Paternal Grandfather nichole zaragosa [...] 11/13/2021 12:28 PM CDT Plan of Treatment Health Maintenance Due Date Last Done Comments CT Colonography 1970 Cologuard 1970 Depression Monitoring 1970 (PHQ-9) FIT 1971 Fasting Glucose for 1971 Diabetes Screening HIV Screening 1970 Lipid (Cholesterol) 1970 Screening Mammogram 01/30/2018 01/30/2017 (Performed elsewhere), 2014 (Performed elsewhere), 12/26/2012 Office Visit for Blood 11/05/2021 08/06/2021 Pressure Check / Re-check Zoster Vaccines (1 of 2) 12/30/2021 COVID-19 Vaccine (6 - 01/08/2022 11/13/2021, 11/13/2021, Booster for Pfizer series) 08/06/2021, Additiona l history exists Influenza Vaccine (#1) 2022 03/25/2021, 01/28/2020, 01/23/2020, Additional history exists Cervical Cancer Screening 08/15/2023 08/14/2020, 2014 (Performed elsewhere) Colonoscopy 11/19/2030 11/19/2020, 11/19/2020 Colorectal Cancer Screening 11/19/2030 DTaP,Tdap,and Td Vaccines 07/19/2031 07/18/2021, 07/11/2014 (3 - Td or Tdap) Hepatitis C Screening Completed 03/19/2015 Hepatitis B Vaccines Completed 02/21/2019, 02/21/2019, 12/05/2018, Additional history exists Pneumococcal vaccine (0-64 Aged Out No lo nger eligible years) based on patient 's age to complete this topic Medical Devices Implanted Type Area Chauffeur [employer] Device Shelf Model / Identifier Expiration Serial / Date Lot Intrauterine Intrauterine Uterus Device Device Description: IUD Mirena Conversions - Default Historical Implant Device Misc Other Abdomen Implanted: 05/04/2004 (Quantity not on file) Description: Body Location - Abdominal. Device Status Text - MiscOther. lapband. Procedures Procedure Name Priority Date/Time Associated Comments Diagnosis ECG Routine 01/08/2022 1:52 Gastro-Esophageal Results for this PM CDT Reflux Disease procedure are in With Esophagitis the results Without Bleeding section. FL ESOPHAGRAM RAD - Routine 01/08/2022 1:23 Gastro-Esophageal Resul ts for this DOUBLE CONTRAST (most inpatients PM CDT Reflux Disease proced ure are in and all With Esophagitis the results outpatients) Without Bleeding section. DE PH STUDY NASL Routine 12/01/2021 1:39 Gastro-Esophageal Res ults for this CATH PM CDT Reflux Disease procedure are in With Esophagitis the results Without Bleeding section. ESOPHAGEAL Routine 11/30/2021 9:45 Gastro-Esophageal Results for this MANOMETRY AM CDT Reflux Disease procedure are in With Esophagitis the results Without Bleeding section. from Last 3 Months Results ECG 12 Lead (01/08/2022 1:52 PM CDT) P athologist Signature Ventricular Rate 82 BPM MUSE ECG/Min DE Interval 136 ms MUSE QRSD Interval 98 ms MUSE QT Interval 406 ms MUSE QTC Interval 474 ms MUSE P [place] 40 degrees MUSE R [place] -22 degrees MUSE T Wave [place] 39 degrees MUSE Specimen Anatomical Collection Method [...] Code Phon e Number MUSE MUSE NA FL Esophagram Double Contrast (01/08/2022 1:23 PM CDT) Anatomical Region Laterality Modality Gastro Intestinal, Abdominal RST LOS, Abdominal ARZ Digital Radiography LOS, Abdominal FLA LOS Specimen (Source) Anatomical Collection Method Collection Time Re ceived Time Location / / Volume Laterality 01/08/2022 1:34 PM CDT Impressions 01/08/2022 1:54 PM CDT Double contrast esophagram performed. Large caliber distal two thirds of esophagus. Patulous gastroesophageal junction. Norm al esophageal peristalsis. Small sliding hiatal hernia. Spontaneous gastroesophageal reflux obse rved to the level of the thoracic inlet. Interval removal of laparoscopic gastric band. Cholecystecto my clips. Narrative 01/08/2022 1:54 PM CDT EXAM: ??FL ESOPHAGRAM DOUBLE CONTRAST COMPARISON: ??Abdominal x-ray 07/27/2017. Procedure Note Julián Sierra M.D. - 01/08/2022Formatt ing of this note might be different from the original. EXAM: FL ESOPHAGRAM DOUBLE CONTRAST COMPARISON: Abdominal x-ray 07/27/2017. IMPRESSION: Double contrast esophagram performed. La rge caliber distal two thirds of esophagus. Patulous gastroesophageal junction. Norm al esophageal peristalsis. Small sliding hiatal hernia. Spontaneous gastroesophageal reflux obse rved to the level of the thoracic inlet. Interval removal of laparoscopic gastric band. Cholecystecto my clips. Julián Edouard M.D. IMG FLUOROSCOPY PROCEDURES DE PH STUDY NASL CATH (12/01/2021 1:39 PM CDT) Narrative [employer] - 12/01/2021 1:39 PM CDT Dae Mcgee M.B., Nellie. ? 12/01/2021 ??1:46 PM Esophageal pH Testing Date/Time: 12/01/2021 1:39 PM Performed by: Dae Mcgee M.B., [place] Authorized by: Julián Edouard M.D. Julián Edouard M.D. GI PROCEDURE ORDERABLES Performing Organization Address City/State/ZIP Code Phon e Number [facility] [place] [employer] NA Esophageal Manometry (11/30/2021 9:45 AM [...] Code Phon e Number MMODAL MMODAL NA from Last 3 Months Insurance Payer Benefit Plan / Subscriber ID Effective Dates Phone Addre ss Type Group BLUE [facility] [id number] 2014-Prese [phone] [address] [address] PPO [facility] [address] [place] [address] Care Teams Imaging Engineer Relationship Specialty Start Date End Date Elsewhere, Pcp PCP - General Internal Medicine 10/22/19
--- OUTSIDE RECORDS SUMMARY | 2022-02-16 14:58 | XMS_ITS | Encounter Summary ---
:1970 Author Organization [facility] Address [address] [place] [address] Care Team Providers Name Role Phone Elsewhere, Pcp Primary Care Provider Unavailable Reason for Visit Outpatient (Routine) - Closed Specialty Diagnoses / Procedures Referred By Contact Refer red To Contact Diagnoses Gastro-Esophageal Reflux Disease With Esophagitis Without Bleeding Julián Edouard M.D. [facility] Procedures FL Esophagram Double Contrast FL Esophagram Single Contrast [address] [place] [address] Referral ID Status Reason Start Date Expiration Date Visits Requ ested Visits Authorized [id number] Closed 12/02/2021 12/02/2022 1 1 Encounter Details Date Type Department Care Team Description 01/08/2022 Hospital Encounter Department of Silke, Gastro-E sophageal Radiology, [place] Julián Narayan M.D. Reflux Disease With Building, in [address] [facility] Esophagitis Without [place], [place] Bleeding [address] [place] [phone] [place], [place] [phone] (Work) [phone] Social History Tobacco Use Types Packs/Day Years [...] Take 1 tablet (5 mg 90 tablet 10/2021 mg tabletIndications: total) by mouth 3 [...] Methotrexate injections documented as of this encounter Plan of Treatment Not on filedocumented as of this encounter Procedures Procedure Name Priority Date/Time Associated Comments Diagnosis FL ESOPHAGRAM RAD - Routine 01/08/2022 1:23 Gastro-Esophageal Resul ts for this DOUBLE CONTRAST (most inpatients PM CDT Reflux Disease proced ure are in and all With Esophagitis the results outpatients) Without Bleeding section. documented in this encounter Results FL Esophagram Double Contrast (01/08/2022 1:23 PM [...] clips. Julián Edouard M.D. IMG FLUOROSCOPY PROCEDURES documented in this encounter Visit Diagnoses Diagnosis Gastro-Esophageal Reflux Disease With Es ophagitis Without Bleeding documented in this encounter Administered Medications Inactive Administered Medications - up to 3 most recent administrations Medication Order MAR Action Action Date Dose Rate Site barium 60 % (w/v) suspension Given 01/08/2022 1:24 PM CDT 175 mL (LIQUID E-Z-PAQUE) Code/trauma/sedation medication, Starting on Tue01/08/22 at 1324 barium 98 % oral powder for suspension Given 01/08/2022 1:24 PM CDT 135 mL (E-Z-HD) Code/trauma/sedation medication, Starting on Tue01/08/22 at 1324 sodium bicarbonate-citric acid-simethicone Given 01/08 1:24 PM CDT 1 packet effervescent packet (E-Z -GAS) oral, Code/trauma/sedation medication, Starting on Tue01/08/22 at 1324 documented in this encounter Additional Health Concerns Assessment Noted Time PHQ-9 Depression Total Score: 15 04/21/2018 1:00 PM CS T documented as of this encounter Care Teams Aircraft Load Controller Relationship Specialty Start Date End Date Elsewhere, Pcp PCP - General Internal Medicine 10/22/19 documented as of this encounter
--- OUTSIDE RECORDS SUMMARY | 2022-02-16 14:58 | XMS_ITS | Encounter Summary ---
:1970 Author Organization [facility] Address [address] [place] [address] Care Team Providers Name Role Phone Elsewhere, Pcp Primary Care Provider Unavailable Reason for Referral Outpatient (Routine) - Authorized Specialty Diagnoses / Procedures Referred By Contact Refer red To Contact Diagnoses Gastro-Esophageal Reflux Disease With Esophagitis Without Bleeding Julián Edouard M.D. [facility] Procedures Esophageal pH Testing [address] [place] [address] Referral ID Status Reason Start Date Expiration Date Visits V isits Requested Authorized [id number] Authorized 11/17/2021 11/17/2022 3 3 Outpatient (Routine) - Authorized Specialty Diagnoses / Procedures Referred By Contact Refer red To Contact Diagnoses Gastro-Esophageal Reflux Disease With Esophagitis Without Bleeding Julián Edouard M.D. [facility] Procedures Esophageal Manometry [address] [place] [address] Referral ID Status Reason Start Date Expiration Date Visits V isits Requested Authorized [id number] Authorized 11/17/2021 11/17/2022 3 3 Encounter Details Date Type Department Care Team Description 11/17/2021 Orders Only Division of Annette EdouardEsophage al Gastroenterology in Julián Narayan M.D. Reflux Disease With [place], [place] [address] [facility] Esophagitis Without [address] [place], [place] Bleeding (Primary Dx) [place] [phone] Social History Tobacco Use Types Packs/Day Years [...] on filedocumented as of this encounter Results SC PH STUDY NASL CATH (12/01/2021 1:39 PM CDT) Narrative [employer] - 12/01/2021 1:39 PM CDT Dae Mcgee M.B., B.Chir. ? 12/01/2021 ??1:46 PM Esophageal pH Testing Date/Time: 12/01/2021 1:39 PM Performed by: Dae Mcgee M.B., B. Chir. Authorized by: Julián Edouard M.D. Julián Edouard M.D. GI PROCEDURE ORDERABLES Performing Organization Address [facility] Code Phon e Number [employer] [...] M.D. GI PROCEDURE ORDERABLES Performing Organization Address [facility] Phon e Number MMODAL MMODAL NA [...] documented as of this encounter Care Teams Curator [employer] Relationship Specialty Start Date End Date Elsewhere, Pcp PCP - General Internal Medicine 10/22/19 documented as of this encounter
--- OUTSIDE RECORDS SUMMARY | 2022-02-16 14:58 | XMS_ITS | Encounter Summary ---
:1970 Author Organization [facility] Address [address] [place] [address] Care Team Providers Name Role Phone Elsewhere, Pcp Primary Care Provider Unavailable Reason for Visit Reason Comments Follow-up Encounter Details Date Type Department Care Team Description 12/02/2021 Clinical Communication Division of Wilda Edouard Gastroenterology in Julián Narayan M.D. [place], [place] [address] [facility] [address] [place] [phone] Social History Tobacco Use Types Packs/Day Years [...] as of this encounter Care Teams Supervisor Rides Relationship Specialty Start Date End Date Elsewhere, Pcp PCP - General Internal Medicine 10/22/19 documented as of this encounter
--- OUTSIDE RECORDS SUMMARY | 2022-02-16 14:58 | XMS_ITS | Encounter Summary ---
:1970 Author Organization [facility] Address [address] [place] [address] Care Team Providers Name Role Phone Elsewhere, Pcp Primary Care Provider Unavailable Encounter Details Date Type Department Care Team Description 01/28/2022 Clinical Communication Division of Velma Munson Rheumatology in , TRANSFER MACHINE OPERATOR, C.N.P. [place], [place] [address] [facility] [address] [place] [phone] Social History Tobacco Use Types Packs/Day Years [...] Telephone Encounter - Irene Andujar R.N. - 01/28/2022 11:23 AM CDT Prescription renewal request for hydroxychloroquine (Plaquenil), methotrexate received from patient. HISTORY OF PRESENT ILLNESS Last Rheum visit: 11/16/21 with Velma Munson APRN, HARDWARE INSTALLATION COORDINATOR Future office visit: ordered, not yet scheduled Last monitoring labs/eye exam: labs 11/03/21 and eye exam June 2021: within protocol parameters. Prescription request matches current plan of care. Prescription request matches a current prescription in the Medication List. Exclusion criteria: None ASSESSMENT/PLAN Prescription request renewed per nursing protocol. Telephone Encounter - Flores Francois - 01/28/2022 11:10 AM CDT Caller/Authorization: Patient Provider: Velma Munson Reason for call: Increased pain and swelling Follow-up requested: Yes Phone/Portal: Phone Patient called stating her pain and swelling has been increased in the past week or two, to the point of waking her in the night. She is in need of Methotrexate and Plaquenil refills but isint sure if with her increased pain and swelling if any adjustments are needing to be made. I tried ringing an Inflam nurse with no answer. She would like a call back. documented in this encounter Plan of Treatment Not on filedocumented as of this encounter Visit Diagnoses Diagnosis Arthritis Inflammatory (HCC) documented in this encounter Additional Health Concerns Assessment Noted Time PHQ-9 Depression Total Score: 15 04/21/2018 1:00 PM CS T documented as of this encounter Care Teams Senior Recruitment Consultant Relationship Specialty Start Date End Date Elsewhere, Pcp PCP - General Internal Medicine 10/22/19 documented as of this encounter
--- OUTSIDE RECORDS SUMMARY | 2022-02-16 14:59 | XMS_ITS | Encounter Summary ---
:1970 Author Organization [facility] Address [address] [place] [address] Care Team Providers Name Role Phone Elsewhere, Pcp Primary Care Provider Unavailable Reason for Referral Medication Prior Authorization - Closed Specialty Diagnoses / Procedures Referred By Contact Refer red To Contact Julián Edouard M .D. [address] [place] [address] Referral ID Status Reason Start Date Expiration Date Visits Requ ested Visits Authorized [id number] Closed 1 1 Medication Prior Authorization - Closed Specialty Diagnoses / Procedures Referred By Contact Refer red To Contact Julián Edouard M .D. [address] [place] [address] Referral ID Status Reason Start Date Expiration Date Visits Requ ested Visits Authorized [id number] Closed 1 1 Outpatient (Routine) - Closed Specialty Diagnoses / Procedures Referred By Contact Refer joslyn To Contact Diagnoses Gastro-Esophageal Reflux Disease With Esophagitis Without Bleeding Julián Edouard M.D. [facility] Procedures EGD (EsophagealGastroDuodenoscopy) [address] [place] [phone] Referral ID Status Reason Start Date Expiration Date Visits Requ ested Visits Authorized [id number] Closed 11/03/2021 11/03/2022 1 1 Reason for Visit Appointment Request (Routine) - Closed Specialty Diagnoses / Referred By Contact Referred To Procedures Contact Gastroenterology and Hepatology Referral ID Status Reason Start Date Expiration Date Visits Requ ested Visits Authorized [id number] Closed 09/08/2021 09/08/2022 1 1 Encounter Details Date Type Department Care Team Description 11/03/2021 Office Visit Division of Silke, Gastro-Esophage al Reflux Disease With Esophagitis With Bleeding (Primary Dx); Gastroenterology in Julián Narayan M.D. Gastro-Esophageal Reflux Disease With Es ophagitis Without Bleeding [place], [place] [address] [place] [phone] Social History Tobacco Use Types Packs/Day Years [...] Julián Edouard M.D. CT CT Job ID: [id number] documented in this encounter Plan of Treatment Not on filedocumented as of this encounter Visit Diagnoses Diagnosis Gastro-Esophageal Reflux Disease With Es ophagitis With Bleeding - Primary Gastro-Esophageal Reflux Disease With Es ophagitis Without Bleeding documented in this encounter Additional Health Concerns Assessment Noted Time PHQ-9 Depression Total Score: 15 04/21/2018 1:00 PM CS T documented as of this encounter Care Teams E Business Specialist Relationship Specialty Start Date End Date Elsewhere, Pcp PCP - General Internal Medicine 10/22/19 documented as of this encounter
--- OUTSIDE RECORDS SUMMARY | 2022-02-16 14:59 | XMS_ITS | Encounter Summary ---
:1970 Author Organization [facility] Address [address] [place] [address] Care Team Providers Name Role Phone Elsewhere, Pcp Primary Care Provider Unavailable Reason for Visit Reason Comments Follow-up Injury Outpatient (Routine) - Closed Specialty Diagnoses / Procedures Referred By Contact Refer red To Contact Orthopedic Surgery Joseline Millan, TOOL DESIGNER APPRENTICE, [facility] C.N.P., D.N.P. [address] [place] [phone] Referral ID Status Reason Start Date Expiration Date Visits Requ ested Visits Authorized [id number] Closed 07/21/2021 07/21/2022 1 1 Encounter Details Date Type Department Care Team Description 08/18/2021 Office Visit Department of Joseline Millan, Fracture Index Finger Orthopedic Surgery in [facility], C.N.P., Dista l Phalanx Katherine PendletonNLennoxP. Nondisplaced Closed [address] Initial Left (Primary [address] [place] [address] Dx) [place] [phone] Social History Tobacco Use Types Packs/Day Years [...] documented as of this encounter Care Teams Auto Care Center Manager Relationship Specialty Start Date End Date Elsewhere, Pcp PCP - General Internal Medicine 10/22/19 documented as of this encounter
--- OUTSIDE RECORDS SUMMARY | 2022-02-16 14:59 | XMS_ITS | Encounter Summary ---
:1970 Author Organization [facility] Address [address] [place] [address] Care Team Providers Name Role Phone Elsewhere, Pcp Primary Care Provider Unavailable Reason for Visit Reason Comments Lab Monitoring Encounter Details Date Type Department Care Team Description 07/15/2021 Clinical Communication Division of Saeed Espinoza onitoring Rheumatology in [facility] [place], [place] [address] [facility] [address] [place] [address] [phone] Social History Tobacco Use Types Packs/Day Years [...] Miscellaneous Notes Telephone Encounter - Cam Espinoza RLennoxN. - 07/15/2021 2:12 PM CDT ASSESSMENT Rheumatology [...] this encounter Visit Diagnoses Diagnosis Medication Therapy Funeral Pre Arrangement Counselor Not Anticoa gulant - Primary documented in this encounter Additional Health Concerns Assessment Noted Time PHQ-9 Depression Total Score: 15 04/21/2018 1:00 PM CS T documented as of this encounter Care Teams Condenser Operator Relationship Specialty Start Date End Date Elsewhere, Pcp PCP - General Internal Medicine 10/22/19 documented as of this encounter
--- OUTSIDE RECORDS SUMMARY | 2022-02-16 14:59 | XMS_ITS | Encounter Summary ---
:1970 Author Organization [facility] Address [address] [place] [address] Care Team Providers Name Role Phone Elsewhere, Pcp Primary Care Provider Unavailable Encounter Details Date Type Department Care Team Description 10/15/2021 Clinical Communication Division of Nano Gomes Rheumatology in , R.N. [place], [place] [address] [facility] [address] [place] [phone] Social History Tobacco Use Types Packs/Day Years [...] documented as of this encounter Care Teams Plumbing Technician Relationship Specialty Start Date End Date Elsewhere, Pcp PCP - General Internal Medicine 10/22/19 documented as of this encounter
--- OUTSIDE RECORDS SUMMARY | 2022-02-16 14:59 | XMS_ITS | Encounter Summary ---
:1970 Author Organization [facility] Address [address] [place] [address] Care Team Providers Name Role Phone Elsewhere, Pcp Primary Care Provider Unavailable Encounter Details Date Type Department Care Team Description 11/03/2021 Hospital Encounter Department of Velma Munson Laboratory Medicine Lana, LONG, C.N .P. Inflammatory (HCC) and Pathology, [address] [place] [address] in [facility] [address] [place] [phone] [place] [address] (Work) [place], [place] [phone] [phone] (Fax) [phone] Social History Tobacco Use Types Packs/Day Years [...] dinner. SUMAtriptan (IMITREX Inject under the 0 STATDOSE) 6 mg/0.5 mL skin as needed. injection pen Uses 2-4x/month for migraine. Uses once and then once again after 1h if no effect. tranexamic acid (LYSTEDA) Take 650 mg by 0 650 mg tablet mouth daily. famotidine (PEPCID) 20 mg Take 1 tablet (20 90 tablet 3 11/30/2021 tablet mg total) by mouth every evening. hydrOXYchloroQUINE Take 1-2 tablets 135 tablet 3 [...] 1 hour before meals and at bedtime syringe with needle (BD Inject 1 Syringe [...] AST (Aspartate Aminotransferase) (11/03/2021 12:18 PM CDT) [facility] gist Method Time Signature Aspartate 22 8 - 43 11/03/2021 DTL Aminotransferase U/L 1:11 PM CDT (AST), S Specimen Anatomical Collection Method Collection Time Receive d Time (Source) Location / / Volume Laterality Blood (Blood, 11/03/2021 12:18 11/03/2021 Venous) PM CDT 12:55 PM CDT Jorge Polo APRNNLennoxP. LAB BLOOD ADD-ON Performing Organization Address City/State/ZIP Code Phon e Number [facility] - [address] [place] [phone] [facility] [place] [place] [address] [facility] 200 [facility] Creatinine with Estimated GFR (11/03/2021 12:18 PM CDT) P athologist Signature Creatinine 0.91 0.59 - 11/03/2021 DTL 1.04 mg/dL 1:11 PM CDT eGFR-Non 74 >=60 11/03/2021 DTL Black/ mL/min/BSA 1:11 PM CDT Malian Comment: ----ADDITIONAL INFORMATION---- Estimated GFR calculated using [...] City/State/ZIP Code Phon e Number [facility] - 200 [place], [place] [address] [facility] [place] [address] [facility] 200 [facility] (ABNORMAL) CBC with Differential, Blood (11/03/2021 12:18 PM CDT) [facility] Method Time Signature Hemoglobin 15.0 11.6 - [...] 11/03/2021 Venous) PM CDT 12:43 PM CDT Jorge Polo APRNNLennoxPLennox LAB BLOOD ADD-ON Performing Organization Address City/State/ZIP Code Phon e Number [facility] - [address] [place] [address] [facility] [place] [place] [address] [facility] [address] documented in this encounter Visit Diagnoses Diagnosis Arthritis Inflammatory (HCC) documented in this encounter Additional Health Concerns Assessment Noted Time PHQ-9 Depression Total Score: 15 04/21/2018 1:00 PM CS T documented as of this encounter Care Teams Automated Logistics Specialist Relationship Specialty Start Date End Date Elsewhere, Pcp PCP - General Internal Medicine 10/22/19 documented as of this encounter
--- OUTSIDE RECORDS SUMMARY | 2022-02-16 14:59 | XMS_ITS | Encounter Summary ---
:1970 Author Organization [facility] Address [address] [place] [address] Care Team Providers Name Role Phone Elsewhere, Pcp Primary Care Provider Unavailable Reason for Referral Outpatient (Routine) - Closed Specialty Diagnoses / Procedures Referred By Contact Refer red To Contact Diagnoses Gastro-Esophageal Reflux Disease With Esophagitis Without Bleeding Julián Edouard M.D. [facility] Procedures EGD (EsophagealGastroDuodenoscopy) [address] [place], [place] [address] Referral ID Status Reason Start Date Expiration Date Visits Requ ested Visits Authorized [id number] Closed 11/03/2021 11/03/2022 1 1 Reason for Visit Outpatient (Routine) - Closed Specialty Diagnoses / Procedures Referred By Contact Refer red To Contact Diagnoses Gastro-Esophageal Reflux Disease With Esophagitis Without Bleeding Julián Edouard M.D. [facility] Procedures EGD (EsophagealGastroDuodenoscopy) [address] [place] [address] Referral ID Status Reason Start Date Expiration Date Visits Requ ested Visits Authorized [id number] Closed 11/03/2021 11/03/2022 1 1 Encounter Details Date Type Department Care Team Description 11/13/2021 Hospital Encounter Division of Silke, Gastro-Es ophageal Gastroenterology in Julián Narayan M.D. Reflux Disease With [place], [place] [address] Esophagitis Without [address] [facility] Bleeding [place], [place] [address] [facility] [phone] [place] [address] Social History Tobacco Use Types Packs/Day Years [...] Methotrexate injections documented as of this encounter Miscellaneous Notes [...] Volume Laterality 11/13/2021 1:30 PM CDT Impressions [facility] - 11/13/2021 1:54 PM CDT Post-op Diagnoses: ? - Z-line irregular, 33 cm from th e incisors. Shortened esophagus. ? - LA Grade B reflux esophagitis w ith no bleeding. ? - Medium-sized hiatal hernia. ? - Normal stomach. ? - Normal examined duodenum. ? - No specimens collected. Narrative [facility] - 11/13/2021 1:54 PM CDT Gonda 9 [...] documented as of this encounter Care Teams Button Sewing Machine Operator Relationship Specialty Start Date End Date Elsewhere, Pcp PCP - General Internal Medicine 10/22/19 documented as of this encounter
--- OUTSIDE RECORDS SUMMARY | 2022-02-16 14:59 | XMS_ITS | Encounter Summary ---
:1970 Author Organization [facility] Address [address] [place] [address] Care Team Providers Name Role Phone Elsewhere, Pcp Primary Care Provider Unavailable Reason for Visit Reason Onset Date Comments Outpatient COVID-19 Testing 11/10/2021 Encounter Details Date Type Department Care Team Description 11/10/2021 External Outreach Department of [facility] Higinio Chapa Contact With And Medicine in Jakub Narayan M.D., (Suspected) Exposure [place], [place] Pharm.D. To COVID-19 (Primary [address] Dx) [place] [address] [phone] Social History Tobacco Use Types Packs/Day Years [...] RNA, V Asymptomatic (11/10/2021 10:51 AM CDT) [facility] Method Time Signature SARS-CoV-2 Swab, 11/11/2021 [...] pe rformed using the Aptima SARS-CoV-2 assay ([employer] on the [employer] Sys tem under emergency use authorization (EUA) by the U.S. Food and Drug Administ ration. Fact sheets for this EUA assay can be fo und at the following links: For Healthcare Providers: https://www.fd a.gov/media/309935/download For Patients: https://www.fda.gov/media/ 268151/download Specimen Anatomical Collection Method Collection Time Receive d Time (Source) Location / / Volume Laterality Varies 11/10/2021 10:51 11/10/2021 5:02 (Nasopharynx) AM CDT PM CDT Bret Chapa M.D., Pharm.D. LAB MICROBIOLOGY - [facility] ORDERABLES Performing Organization Address City/State/[facility] Phon e Number [facility]- [address] [place] [address] [place] [address] System in [address] documented in this encounter Visit Diagnoses [...] as of this encounter Care Teams Case Finisher Relationship Specialty Start Date End Date Elsewhere, Pcp PCP - General Internal Medicine 10/22/19 documented as of this encounter
--- OUTSIDE RECORDS SUMMARY | 2022-02-16 14:59 | XMS_ITS | Encounter Summary ---
:1970 Author Organization [facility] Address [address] [place] [address] Care Team Providers Name Role Phone Elsewhere, Pcp Primary Care Provider Unavailable Reason for Visit Reason Comments Immunizations Appointment Request (Routine) - Closed Specialty Diagnoses / Procedures Referred By Contact Refer red To Contact Family Medicine Referral ID Status Reason Start Date Expiration Date Visits Requ ested Visits Authorized [id number] Closed 07/28/2021 07/28/2022 1 1 Encounter Details Date Type Department Care Team Description 08/06/2021 Immunization Section of Infectious Need V accine Immunization Diseases in [place], (Prim deandre Dx) [place] [address] [place] [address] Social History Tobacco Use Types Packs/Day [...] documented as of this encounter Care Teams Regional Sales Leader Relationship Specialty Start Date End Date Elsewhere, Pcp PCP - General Internal Medicine 10/22/19 documented as of this encounter
--- OUTSIDE RECORDS SUMMARY | 2022-02-16 14:59 | XMS_ITS | Encounter Summary ---
:1970 Author Organization [facility] Address [address] [place] [address] Care Team Providers Name Role Phone Elsewhere, Pcp Primary Care Provider Unavailable Reason for Visit Reason Comments Med Refill Encounter Details Date Type Department Care Team Description 06/26/2021 Refill Division of Rheumatology in Smita Munson sa, APRN, Med Refill [place], [place] C.N.P. [address] [facility] [address] [place] [address] [place] [address] [phone] (Wo rk) Social History Tobacco Use Types [...] Miscellaneous Notes Telephone Encounter - Humera Beckham RLennoxN. - 06/30/2021 1:58 PM CST Refused, pt overdue for labs. Portal messages and letter sent letting patient know she needs labs. EYOR LOADER Telephone Encounter - Humera Beckham R.N. - [...] inform them of reasoning for Rx denial. EYOR LOADER documented in this encounter Plan of Treatment Not on filedocumented as of this encounter Visit Diagnoses Diagnosis Arthritis Inflammatory (HCC) documented in this encounter Additional Health Concerns Assessment Noted Time PHQ-9 Depression Total Score: 15 04/21/2018 1:00 PM CS T documented as of this encounter Care Teams Hand Buffing Wheel Former Relationship Specialty Start Date End Date Elsewhere, Pcp PCP - General Internal Medicine 10/22/19 documented as of this encounter
--- OUTSIDE RECORDS SUMMARY | 2022-02-16 14:59 | XMS_ITS | Encounter Summary ---
:1970 Author Organization [facility] Address [address] [place] [address] Care Team Providers Name Role Phone Elsewhere, Pcp Primary Care Provider Unavailable Reason for Visit Reason Comments Med Refill Encounter Details Date Type Department Care Team Description 11/13/2021 Refill Division of Gastroenterology in Julián Edouard Med Refill [place], [place] Alex [address] [facility] [address] [place] [address] [place], [place] [phone] (Wo rk) Social History Tobacco Use Types [...] or relatives? How often do you attend sabianism or More than 4 times per year 11/16/2021 gnosticism services? Do you belong to any clubs or No 11/16/2021 organizations such as sabianism groups, unions, fraternal or athletic groups, or [...] documented as of this encounter Care Teams Adult Basic Education Instructor Relationship Specialty Start Date End Date Elsewhere, Pcp PCP - General Internal Medicine 10/22/19 documented as of this encounter
--- OUTSIDE RECORDS SUMMARY | 2022-02-16 14:59 | XMS_ITS | Encounter Summary ---
:1970 Author Organization [facility] Address [address] [place] [address] Care Team Providers Name Role Phone Elsewhere, Pcp Primary Care Provider Unavailable Reason for Referral Outpatient (Routine) - Closed Specialty Diagnoses / Procedures Referred By Contact Refer red To Contact Orthopedic Surgery Joseline Millan APRN, [facility] C.N.P., D.N.P. [address] [place] [address] Referral ID Status Reason Start Date Expiration Date Visits Requ ested Visits Authorized [id number] Closed 07/21/2021 07/21/2022 1 1 Reason for Visit Reason Comments Fracture 2nd digit, injured closing g arage door on tuesday Outpatient (Routine) - Closed Specialty Diagnoses / Procedures Referred By Contact Refer joslyn To Contact Emergency Medicine Diagnoses Fracture Index Finger Distal Phalanx Nondisplaced Closed Initial Left Haritha Guillory [facility] LONG, C.N.P., D.N.P. [address] [place] [phone] Referral ID Status Reason Start Date Expiration Date Visits Requ ested Visits Authorized [id number] Closed 07/18/2021 07/18/2022 1 1 Encounter Details Date Type Department Care Team Description 07/21/2021 Office Visit Department of Joseline Millan, Fracture Index Finger Orthopedic Surgery in Mikel ALVES, Dista l Phalanx [place] Nondisplaced Closed [place] [address] [place] [address] Initial Left [address] [place] [address] [phone] Social History Tobacco Use Types Packs/Day Years [...] time, her pain has been tolerable with zjfr-wju-occfvvq remedies and occasional oxycodone. She was placed [...] heal on its own. Manage pain with mtvv-zim-wqjwalg analgesics, elevation, and activity modification. We will plan to see her back in another month to ensure healing, or sooner with concerns. She is in agreement with this plan, all questions were answered. documented in this encounter Plan of Treatment Scheduled Referrals Name Type Priority Associated Order [...] documented as of this encounter Care Teams Flight Engineer Instructor Relationship Specialty Start Date End Date Elsewhere, Pcp PCP - General Internal Medicine 10/22/19 documented as of this encounter
--- OUTSIDE RECORDS SUMMARY | 2022-02-16 14:59 | XMS_ITS | Encounter Summary ---
:1970 Author Organization [facility] Address [address] [place] [address] Care Team Providers Name Role Phone Elsewhere, Pcp Primary Care Provider Unavailable Reason for Referral Outpatient (Routine) - Closed Specialty Diagnoses / Procedures Referred By Contact Refer red To Contact Emergency Medicine Diagnoses Fracture Index Finger Distal Phalanx Nondisplaced Closed Initial Left Haritha Guillory [facility] LONG, C.N.P., D.N.P. [address] [place] [address] [place] [address] Referral ID Status Reason Start Date Expiration Date Visits Requ ested Visits Authorized [id number] Closed 07/18/2021 07/18/2022 1 1 Reason for Visit Reason Comments Hand Injury Encounter Details Date Type Department Care Team Description 07/18/2021 Emergency [place] Emergency Haritha Guillory acture Index Finger Department LONG Narayan, C.N.P., Distal Phalanx [phone] [place] [address] D.N.P. Nondisplaced Closed [address] Initial Left (Primary [address] [place] Dx) [phone] Social History Tobacco Use Types Packs/Day [...] sent through Care Everywhere. Finger Fracture Adult Gnyv-qf-Hzvc (Uruguayan)Oxycodone tablets or capsules (Uruguayan)documented in this encounter Medications at Time of [...] by 0 11/30/[address] capsule mouth. [id number] Drink 1st portion 1 box(es) 0 10/07/20202021 kcz-EkBs-DLq-asb-C of prep at 6 PM the (MOVIPREP) [...] PROCEDURE DETAILS Procedure type: application Performed by: INVESTMENT BANKER Indication: fracture, pain and joint immobilization Location: [...] and ice for comfort. Tdap last updated 2014, updated today s/p subungual hematoma evacuation via [...] Finge r Expected: Orthopedic Surgery Distal Phalanx 022, Nondisplaced Closed Expires: Initial Left 10/18/2022 [...] - 2021 7:58 AM CDT Haritha Guillory APRN, C.N.P. ? 07/18/2021 ??8:00 AM Splint Application Date/Time: 07/18/2021 7:58 AM Performed by: Haritha Guillory APRN C .N.P. Authorized by: Haritha Guillory APRN C.N.P. PROCEDURE DETAILS Immobilization: ??Splint Splint type: [...] DETAILS Procedure type: application ?? Performed by: ??INVESTMENT BANKER Indication: fracture, pain and joint imm obilization [...] cauthery. Complications: no immediate complication s ?? Haritha Guillory APRN, C.N.P., D.N.P. PROCEDURE/MINOR SURGICAL ORDERABLES DX Hand Left [...] intact. Alignment is anatomic. Haritha Guillory APRN, C.N.P., D.N.P. IMG DIAGNOSTIC I MAGING PROCEDURES documented [...] documented as of this encounter Care Teams Sewer Builder Relationship Specialty Start Date End Date Elsewhere, Pcp PCP - General Internal Medicine 10/22/19 documented as of this encounter
--- OUTSIDE RECORDS SUMMARY | 2022-02-16 14:59 | XMS_ITS | Encounter Summary ---
:1970 Author Organization [facility] Address [address] [place] [address] Care Team Providers Name Role Phone Elsewhere, Pcp Primary Care Provider Unavailable Reason for Visit Reason Comments Immunizations Encounter Details Date Type Department Care Team Description 11/13/2021 Immunization Section of Preventive, Transportation and Occupational Medicine in [place], [place] [address] [place] [address] Social History Tobacco Use Types Packs/Day [...] or relatives? How often do you attend protestant or More than 4 times per year 11/16/2021 scientologist services? Do you belong to any clubs or No 11/16/2021 organizations such as protestant groups, unions, fraternal or athletic groups, or [...] documented as of this encounter Care Teams Database Administrator Relationship Specialty Start Date End Date Elsewhere, Pcp PCP - General Internal Medicine 10/22/19 documented as of this encounter
--- OUTSIDE RECORDS SUMMARY | 2022-02-16 14:59 | XMS_ITS | Encounter Summary ---
:1970 Author Organization [facility] Address [address] [place] [address] Care Team Providers Name Role Phone Elsewhere, Pcp Primary Care Provider Unavailable Encounter Details Date Type Department Care Team Description 07/15/2021 Clinical Communication Division of Velma Munson Rheumatology in , SUPERINTENDENT OPERATING, C.N.P. [place], [place] [address] [facility] [address] [place] [address] [phone] Social History Tobacco Use Types Packs/Day Years [...] documented as of this encounter Care Teams Skin Care Consultant Relationship Specialty Start Date End Date Elsewhere, Pcp PCP - General Internal Medicine 10/22/19 documented as of this encounter
--- OUTSIDE RECORDS SUMMARY | 2022-02-16 14:59 | XMS_ITS | Encounter Summary ---
:1970 Author Organization [facility] Address [address] [place] [address] Care Team Providers Name Role Phone Elsewhere, Pcp Primary Care Provider Unavailable Encounter Details Date Type Department Care Team Description 11/13/2021 Anesthesia Event Division of Gastroenterology Janet Duran, in [facility] kristin INDUSTRIAL RETROFIT DESIGNER, ENGLISH FACULTY MEMBER [address] [place] [address] [place], [place] [phone] Anesthesia Record Procedure Summary Procedure Name Responsible Anesthesia Start Anesthesia Stop Time Anesthesiologist Time EGD Donald Duran, INDUSTRIAL RETROFIT DESIGNER, 11/13/21 1332 11/13/21 1358 (ESOPHAGEALGASTRODU ENGLISH FACULTY MEMBER ODENOSCOPY) Events Date Time Event Comment 11/13/2021 [...] h andoff to the receiving staff during [facility] we 1. Identified the patient 2. [...] Room / Location: Division of Gastroenterology in [place], [place] Anesthesia Start: 1331 Anesthesia Stop: 1358 [...] Bleeding [K21.00] Location: Division of Gastroenterology in [place], [place] Pertinent components of the patient's history [...] with patient /legal guardian or through an senior clinical data manager. Risks/Benefits/Alternatives of Blood transfusion discussed with patient [...] documented as of this encounter Care Teams Workforce Planning Analyst Relationship Specialty Start Date End Date Elsewhere, Pcp PCP - General Internal Medicine 10/22/19 documented as of this encounter
--- OUTSIDE RECORDS SUMMARY | 2022-02-16 14:59 | XMS_ITS | Encounter Summary ---
:1970 Author Organization [facility] Address [address] [place] [address] Care Team Providers Name Role Phone Elsewhere, Pcp Primary Care Provider Unavailable Reason for Visit Reason Comments Med Refill Encounter Details Date Type Department Care Team Description 08/20/2021 Refill Division of Gastroenterology in Julián Edouard Med Refill [place], [place] Alex [address] [facility] [address] [place] [address] [place], [place] [phone] (Wo rk) Social History Tobacco Use Types [...] many times do you More than three myarnda es a week 11/16/2021 talk on the [...] documented as of this encounter Care Teams Sale Professional Digital Marketing Relationship Specialty Start Date End Date Elsewhere, Pcp PCP - General Internal Medicine 10/22/19 documented as of this encounter
--- OUTSIDE RECORDS SUMMARY | 2022-02-16 14:59 | XMS_ITS | Encounter Summary ---
:1970 Author Organization [facility] Address [address] [place] [address] Care Team Providers Name Role Phone Elsewhere, Pcp Primary Care Provider Unavailable Reason for Referral Outpatient (Routine) - Closed Specialty Diagnoses / Procedures Referred By Contact Refer red To Contact Rheumatology Velma Munson APRN, Rochest [facility] C.N.P. [address] [place] [address] Referral ID Status Reason Start Date Expiration Date Visits Requ ested Visits Authorized [id number] Closed 08/06/2021 08/06/2022 1 1 Reason for Visit Outpatient (Routine) - Closed Specialty Diagnoses / Procedures Referred By Contact Refer red To Contact Rheumatology Velma Munson APRN [facility] C.N.P. [address] [place], [place] [address] Referral ID Status Reason Start Date Expiration Date Visits Requ ested Visits Authorized [id number] Closed 03/04/2021 03/04/2022 1 1 Encounter Details Date Type Department Care Team Description 08/06/2021 Office Visit Division of Velma Munson Arthritis In flammatory (HCC) (Primary Dx); Rheumatology césar Schwartz APRN, C.N.P. High Risk Medication; [place], [place] [address] [facility] Xerostomia [address] [place] [phone] Social History Tobacco Use Types Packs/Day Years [...] More than 4 times per year 11/16/2021 denominational services? Do you belong to any clubs [...] this encounter Progress Notes Velma Munson APRN, JorgeNLennoxP. - 08/06/2021 8:00 AM CDT Images from [...] global assessment (0-100) 12 12 60 4 Mill Crane Operator global assessment (0-100) 10 20 30 20 ESR (mm/h) 10 13 17 -- CRP (mg/L) 3.3 5 4.8 -- Disease Activity Score 28 using ESR ([id number]) 1.78 2.52 3.62 -- Disease Activity Score 28 using CRP ([id number]) 1.65 2.33 3.22 -- Clinical Disease Activity [...] Address City/State/ZIP Code Phon e Number [facility] - [address] [place], [place] [address] [facility] [place] [address] [facility] [address] Creatinine with Estimated GFR (11/03/2021 12:18 PM CDT) P athologist Signature Creatinine 0.91 0.59 - 11/03/2021 DTL 1.04 mg/dL 1:11 PM CDT eGFR-Non 74 >=60 11/03/2021 DTL Black/ mL/min/BSA 1:11 PM CDT Belarusian Comment: ----ADDITIONAL INFORMATION---- Estimated GFR calculated using the 2009 CKD_EPI creatinine equation. eGFR-Black/ 86 >=60 mL/min/BSA 2021 1:11 PM CDT DTL Comment: ----ADDITIONAL INFORMATION---- Estimated GFR calculated using the 2009 CKD_EPI creatinine equation. Specimen Anatomical Collection Method Collection Time Receive d Time (Source) Location / / Volume Laterality Blood (Blood, 11/03/2021 12:18 11/03/2021 Venous) PM CDT 12:55 PM CDT Karlene Polo APRN.N.P. LAB BLOOD ADD-ON Performing Organization Address City/State/ZIP Code Phon e Number [facility] - [address] [place] [address] [facility] [place] [address] [facility] 200 [facility] (ABNORMAL) CBC with Differential, Blood (11/03/2021 12:18 PM CDT) [facility] gist Method Time Signature Hemoglobin 15.0 11.6 [...] Address City/State/ZIP Code Phon e Number [facility] - [address] [place], [place] [address] [facility] [place] [address] [facility] [address] documented in this encounter Visit Diagnoses Diagnosis Arthritis Inflammatory (HCC) - Primary High Risk Medication Xerostomia documented in this encounter Additional Health Concerns Assessment Noted Time PHQ-9 Depression Total Score: 15 04/21/2018 1:00 PM CS T documented as of this encounter Care Teams Alto Singer Relationship Specialty Start Date End Date Elsewhere, Pcp PCP - General Internal Medicine 10/22/19 documented as of this encounter
--- OUTSIDE RECORDS SUMMARY | 2022-02-16 14:59 | XMS_ITS | Encounter Summary ---
:1970 Author Organization [facility] Address [address] [place] [address] Care Team Providers Name Role Phone Elsewhere, Pcp Primary Care Provider Unavailable Encounter Details Date Type Department Care Team Description 09/08/2021 Clinical Communication Division of Silke, Gastroenterology in Julián Narayan M.D. [place], [place] [address] [facility] [address] [place] [phone] Social History Tobacco Use Types Packs/Day Years [...] or relatives? How often do you attend tenriism or More than 4 times per year 11/16/2021 uatsdin services? Do you belong to any clubs or No 11/16/2021 organizations such as tenriism groups, unions, fraternal or athletic groups, or [...] documented as of this encounter Care Teams Statistical Consultant Relationship Specialty Start Date End Date Elsewhere, Pcp PCP - General Internal Medicine 10/22/19 documented as of this encounter
--- OUTSIDE RECORDS SUMMARY | 2022-02-16 14:59 | XMS_ITS | Encounter Summary ---
:1970 Author Organization [facility] Address [address] [place] [address] Care Team Providers Name Role Phone Elsewhere, Pcp Primary Care Provider Unavailable Encounter Details Date Type Department Care Team Description 07/13/2021 Hospital Encounter Department of Velma Munson Medic ation Therapy Brush Loader And Handle Attacher Not Anticoagulant; Laboratory Medicine L, BOTTOM POUNDER CEMENT SHOES, C.N .P. Arthritis Inflammatory (HCC) in [place] [phone] [facility] [phone] [place], [place] (Work) [phone] Social History Tobacco Use [...] the Arthritis Inflammatory skin once a week. ([facility]) Labs needed for further refills. omeprazole (PriLOSEC) 20 Take 20 mg by 0 11/30/[address] capsule mouth. [id number] Drink 1st portion 1 box(es) 0 10/07/20202021 [id number] of prep at 6 PM the (MOVIPREP) [...] Th erapy Results for this PM CDT Mcc Not procedure are in Anticoagulant the results section. C-REACTIVE PROTEIN Routine 07/13/2021 1:39 Arthritis Result s for this (CRP), S/P PM CDT Inflammatory (HCC) procedure are in the results section. ASPARTATE Routine 07/13/2021 1:39 Medication Therapy Result s for this AMINOTRANSFERASE (AST), PM CDT Brush Loader And Handle Attacher Not pro cedure are in S/P Anticoagulant the results section. CREATININE WITH EGFR, Routine 07/13/2021 1:39 Medication Thera py Results for this S/P PM CDT Brush Loader And Handle Attacher Not procedure are in Anticoagulant the results section. documented in this encounter Results CRP (C-Reactive Protein) (07/13/2021 1:39 PM CDT) athologist Signature C-Reactive <3.0 <=8.0 mg/L 07/13/2021 CNFL Protein (CRP), 2:10 PM CDT P Specimen Anatomical Collection Method Collection Time Receive d Time (Source) Location / / Volume Laterality Blood (Blood, 07/13/2021 1:39 PM 07/14/19 1:40 Venous) CDT PM CDT Velma Munson APRN CLennoxN.P. LAB BLOOD ADD-ON Performing Organization Address City/State/ZIP Code Phon e Number [facility]- [address] [place] [address] [place] [address] System in [place] [address] Bl Sedimentation Rate (07/13/2021 1:39 PM CDT) Analysis Performed At Patho logist Time Signature Sedimentation 11 0 - 29 07/13/2021 RDWG Rate, B mm/1 h 8:38 PM CDT Specimen Anatomical Collection Method Collection Time Receive d Time (Source) Location / / Volume Laterality Blood (Blood, 07/13/2021 1:39 PM 07/14/19 8:04 Venous) CDT PM CDT Karlene Polo APRN.N.P. LAB BLOOD ADD-ON Performing Organization Address City/[facility] Code Phon e Number [facility]- [address] [place], [place] [address]d [place], [place] [address] [facility] [place] [address] System in [address] Creatinine with Estimated GFR (07/13/2021 1:39 PM CDT) P athologist Signature Creatinine 0.80 0.59 - 07/13/2021 CNFL 1.04 mg/dL 2:10 PM CDT eGFR-Black/Afric >90 >=60 07/13/2021 CNFL an Luxembourger mL/min/BSA 2:10 PM CDT Comment: ----ADDITIONAL INFORMATION---- [...] C.N.P. LAB BLOOD ADD-ON Performing Organization Address City/State/[facility] Code Phon e Number [facility]- [address] [place] [address] [place] [address] [facility] [place] [address] System in [place] [address] [address] AST (Aspartate Aminotransferase) (07/13/2021 1:39 PM CDT) Patholo gist Method Time Signature Aspartate 22 8 - 43 07/13/2021 CNFL Aminotransferase U/L 2:10 PM CDT (AST), P Specimen Anatomical Collection Method Collection Time Receive d Time (Source) Location / / Volume Laterality Blood (Blood, 07/13/2021 1:39 PM 07/14/19 1:40 Venous) CDT PM CDT Velma Munson APRN, C.N.P. LAB BLOOD ADD-ON Performing Organization Address City/State/[facility] Code Phon e Number [facility]- [address] [place] [address] [place] [address] [address] (ABNORMAL) CBC with Differential, Blood (07/13/2021 1:39 PM CDT) [facility] Recommendi Method Time Signature Hemoglobin 14.1 11.6 - [...] C.N.P. LAB BLOOD ADD-ON Performing Organization Address City/State/[facility] Code Phon e Number [address] [place] [address] System [address] documented in this encounter Visit Diagnoses Diagnosis Medication Therapy Brush Loader And Handle Attacher Not Anticoa gulant Arthritis Inflammatory (HCC) documented in this encounter Additional Health Concerns Assessment Noted Time PHQ-9 Depression Total Score: 15 04/21/2018 1:00 PM CS T documented as of this encounter Care Teams Funeral Planner Relationship Specialty Start Date End Date Elsewhere, Pcp PCP - General Internal Medicine 10/22/19 documented as of this encounter
--- OUTSIDE RECORDS SUMMARY | 2022-02-16 14:59 | XMS_ITS | Encounter Summary ---
:1970 Author Organization [facility] Address [address] [place] [address] Care Team Providers Name Role Phone Elsewhere, Pcp Primary Care Provider Unavailable Reason for Visit Reason Comments Lab Monitoring Delay Encounter Details Date Type Department Care Team Description 06/17/2021 Clinical Communication Division of Saeed Page onitoring Rheumatology in Marlyn Schwartz R.N. (Delay) [place], [place] [address] [facility] [address] [place] [phone] Social History Tobacco Use Types Packs/Day Years [...] or relatives? How often do you attend episcopal or More than 4 times per year 11/16/2021 pentecostal services? Do you belong to any clubs or No 11/16/2021 organizations such as episcopal groups, unions, fraternal or athletic groups, or [...] 3:51 PM CST Letter mailed to patient. LEWARE ARCHITECT Telephone Encounter - Marlyn Page R.N. - 06/17/2021 8:28 AM CST Pt has not read her 3 portal messages from 06/03/21. So has not complete labs. Will ask [facility] to mail ptthe 3 unread portals. LEWARE ARCHITECT documented in this encounter Plan of Treatment Not on filedocumented as of this encounter Visit Diagnoses Not on filedocumented in this encounter Additional Health Concerns Assessment Noted Time PHQ-9 Depression Total Score: 15 04/21/2018 1:00 PM CS T documented as of this encounter Care Teams Marker Hand Relationship Specialty Start Date End Date Elsewhere, Pcp PCP - General Internal Medicine 10/22/19 documented as of this encounter
--- OUTSIDE RECORDS SUMMARY | 2022-02-16 14:59 | XMS_ITS | Encounter Summary ---
:1970 Author Organization [facility] Address [address] [place] [address] Care Team Providers Name Role Phone Elsewhere, [...] documented as of this encounter Care Teams Irrigation Laborer Relationship Specialty Start Date End Date Elsewhere, Pcp PCP - General Internal Medicine 10/22/19 documented as of this encounter
--- OUTSIDE RECORDS SUMMARY | 2022-02-16 14:59 | XMS_ITS | Encounter Summary ---
:1970 Author Organization [facility] Address [address] [place] [address] Care Team Providers Name Role Phone Elsewhere, Pcp Primary Care Provider Unavailable Reason for Visit Reason Comments Pre-visit Intake Encounter Details Date Type Department Care Team Description 07/15/2021 Clinical Communication Division of Velma Munson e-visit Intake Rheumatology in , LAMINATE FLOOR INSTALLER, C.N.P. [place], [place] [address] [facility] [address] [place] [phone] Social History Tobacco Use Types Packs/Day Years [...] documented as of this encounter Care Teams It Trainer Relationship Specialty Start Date End Date Elsewhere, Pcp PCP - General Internal Medicine 10/22/19 documented as of this encounter
--- OUTSIDE RECORDS SUMMARY | 2022-02-16 15:00 | XMS_ITS | Encounter Summary ---
:1970 Author Organization [facility] Address [address] [place] [address] Care Team Providers Name Role Phone Elsewhere, [...] documented as of this encounter Care Teams Butcher All Round Relationship Specialty Start Date End Date Elsewhere, Pcp PCP - General Internal Medicine 10/22/19 documented as of this encounter
--- OUTSIDE RECORDS SUMMARY | 2022-02-16 15:00 | XMS_ITS | Encounter Summary ---
:1970 Author Organization [facility] Address [address] [place] [address] Care Team Providers Name Role Phone Elsewhere, Pcp Primary Care Provider Unavailable Reason for Visit Reason Comments Med Refill Encounter Details Date Type Department Care Team Description 01/11/2021 Refill Division of Rheumatology in Smita Munson sa, APRN, Med Refill [place], [place] C.N.P. [address] [facility] [address] [place] [address] [place] [address] [phone] (Wo rk) Social History Tobacco Use Types [...] Rheum visit: 07/17/20 with Velma Munson APRN, SINTIA Future office [...] documented as of this encounter Care Teams Penciller Relationship Specialty Start Date End Date Elsewhere, Pcp PCP - General Internal Medicine 10/22/19 documented as of this encounter
--- OUTSIDE RECORDS SUMMARY | 2022-02-16 15:00 | XMS_ITS | Encounter Summary ---
:1970 Author Organization [facility] Address [address] [place] [address] Care Team Providers Name Role Phone Elsewhere, Pcp Primary Care Provider Unavailable Reason for Visit Reason Comments Patient Education Methotrexate 8 Week Outpatient (Routine) - Canceled Specialty Diagnoses / Procedures Referred By Contact Refer red To Contact Rheumatology Velma Munson APRN, Rochest [facility] C.N.P. [address] [place] [phone] Referral ID Status Reason Start Date Expiration Date Visits V isits Requested Authorized [id number] Canceled 10/31/2020 10/31/2021 1 1 Encounter Details Date Type Department Care Team Description 11/27/2020 Nurse Only Division of Velma Munson APRN, C.N.P. [address] [place] [phone] Patient Education Rheumatology in Irene Andujar R.N. [address] [place] [phone] (Methotrexate 8 Week) [place], [place] [address] [place] [phone] Social History Tobacco Use Types Packs/Day Years [...] organizations such as latter day groups, unions, fraRewardsForce or athletic groups, or school groups? How [...] as of this encounter Progress Notes Irene Andujar, RLennoxN. - 11/27/2020 1:00 PM CDT SUBJECTIVE REASON [...] documented as of this encounter Care Teams Quality Inspector Relationship Specialty Start Date End Date Elsewhere, Pcp PCP - General Internal Medicine 10/22/19 documented as of this encounter
--- OUTSIDE RECORDS SUMMARY | 2022-02-16 15:00 | XMS_ITS | Encounter Summary ---
:1970 Author Organization [facility] Address [address] [place] [address] Care Team Providers Name Role Phone Elsewhere, Pcp Primary Care Provider Unavailable Reason for Visit Reason Comments Med Refill Encounter Details Date Type Department Care Team Description 05/31/2021 Refill Division of Rheumatology in Smita Munson sa, APRN, Med Refill [place], [place] C.N.P. [address] [facility] [address] [place] [address] [place] [address] [phone] (Wo rk) Social History Tobacco Use Types [...] missing eye exam. 90 day supply pended. KKEEPER documented in this encounter Plan of Treatment Not on filedocumented as of this encounter Visit Diagnoses Diagnosis Arthritis Inflammatory (HCC) documented in this encounter Additional Health Concerns Assessment Noted Time PHQ-9 Depression Total Score: 15 04/21/2018 1:00 PM CS T documented as of this encounter Care Teams Home Health Assistant Relationship Specialty Start Date End Date Elsewhere, Pcp PCP - General Internal Medicine 10/22/19 documented as of this encounter
--- OUTSIDE RECORDS SUMMARY | 2022-02-16 15:00 | XMS_ITS | Encounter Summary ---
:1970 Author Organization [facility] Address [address] [place] [address] Care Team Providers Name Role Phone Elsewhere, Pcp Primary Care Provider Unavailable Reason for Visit Reason Comments Medication Question Encounter Details Date Type Department Care Team Description 05/08/2021 Clinical Division of Velma Munson Medication Communication Rheumatology in L, CARBIDE TOOL DIE MAKER, C.N.P. [place], [place] [address] [facility] [address] [place] [phone] Social History Tobacco Use Types Packs/Day Years [...] or relatives? How often do you attend jainism or More than 4 times per year 11/16/2021 cheondoism services? Do you belong to any clubs or No 11/16/2021 organizations such as jainism groups, unions, fraternal or athletic groups, or [...] Munson APRN, C.N.P. - 05/08/2021 4:07 PM STRUCTURAL STEEL FITTER I would recommend holding the methotrexate until 5 days after his 10 days quarantine. CTURAL STEEL FITTER Telephone Encounter - Jutsine Weeks M.S.N., R.N. - 05/08/2021 11:21 AM STRUCTURAL STEEL FITTER SUBJECTIVE CHIEF COMPLAINT / REASON FOR CALL Medication Question Information Discussed Spoke with patient. She is COVID negative but her spouse has COVID and they are going to be driving in a car to see his mom in [place] who is dying of COVID pneumonia, she [...] at this time. Expressed sympathy that her pudlby-di-izo is in end of life care, however, to prevent the spread of COVID they should quarantine. PLAN Disposition/Recommendation: notified provider and awaiting recommendations Information/Education: patient/caller able to teach back Caller agreeable to plan of care: yes The following references were used: nursing clinical judgement CTURAL STEEL FITTER Telephone Encounter - Ana Maria Bowen - [...] requested: Yes Preferred response (portal/phone): phone - [phone] Appointment office - patient requested to cancel her appointment for today. Thanks! CTURAL STEEL FITTER documented in this encounter Plan of Treatment Not on filedocumented as of this encounter Visit Diagnoses Not on filedocumented in this encounter Additional Health Concerns Assessment Noted Time PHQ-9 Depression Total Score: 15 04/21/2018 1:00 PM CS T documented as of this encounter Care Teams Weigher And Crusher Relationship Specialty Start Date End Date Elsewhere, Pcp PCP - General Internal Medicine 10/22/19 documented as of this encounter
--- OUTSIDE RECORDS SUMMARY | 2022-02-16 15:00 | XMS_ITS | Encounter Summary ---
:1970 Author Organization [facility] Address [address] [place] [address] Care Team Providers Name Role Phone Elsewhere, Pcp Primary Care Provider Unavailable Reason for Visit Reason Comments Lab Monitoring Delay Encounter Details Date Type Department Care Team Description 06/03/2021 Clinical Communication Division of Justine Weeks onitoring Rheumatology in L, M.S.N., (Delay) [place], [place] R.N. [address] [facility] [address] [facility] [phone] [facility] [phone] [place] [phone] Social History Tobacco Use Types Packs/Day Years [...] Her grandmother , and she is in [place]. I have sent her a POM with our phone number to call and reschedule. R MACHINE OPERATOR Telephone Encounter - Justine Weeks M.S.N., R.N. - 06/03/2021 1:11 PM POWER MACHINE OPERATOR Patient missed scheduled lab appointment for medication monitoring. Nursing contacted patient via POM and provided laboratory medication monitoring patient education. If needed a lab letter instructing patient of need to complete medication monitoring labs will be sent. Patient will be contacted to reschedule lab appointment. R MACHINE OPERATOR documented in this encounter Plan of Treatment Not on filedocumented as of this encounter Visit Diagnoses Not on filedocumented in this encounter Additional Health Concerns Assessment Noted Time PHQ-9 Depression Total Score: 15 04/21/2018 1:00 PM CS T documented as of this encounter Care Teams Reproduction Specialist Relationship Specialty Start Date End Date Elsewhere, Pcp PCP - General Internal Medicine 10/22/19 documented as of this encounter
--- OUTSIDE RECORDS SUMMARY | 2022-02-16 15:00 | XMS_ITS | Encounter Summary ---
:1970 Author Organization [facility] Address [address] [place] [address] Care Team Providers Name Role Phone Elsewhere, Pcp Primary Care Provider Unavailable Encounter Details Date Type Department Care Team Description 11/26/2020 Hospital Encounter Department of Velma Munson ation Therapy Laboratory Medicine LONG Schwartz, C.N .P. Power Truck Driver Not and Pathology, [address] [place] [address] in [facility] [address] [place] [phone] [place] [address] (Work) [place], [place] [phone] [phone] (Fax) [phone] Social History Tobacco Use Types Packs/Day Years [...] tabletIndications: total) by mouth Arthritis Inflammatory daily. ([facility]) hydrOXYchloroQUINE Take 1-2 tablets 135 tablet 3 05/27/2020 06/01/2021 (PLAQUENIL) 200 mg (200-400 mg total) tabletIndications: by mouth daily. Arthritis Inflammatory Take 2 tab on even (HCC) days, 1 on . methotrexate 25 mg/mL Inject 0.8 mL (20 10 mL 1 021 11/27/2020 injectionIndications: mg total) under the Arthritis Inflammatory skin once a week. ([facility]) [id number] Drink 1st portion 1 box(es) 0 10/07/20202021 [id number] of prep at 6 PM the (MOVIPREP) [...] T herapy Results for this AM CDT Power Truck Driver Not procedure are in Anticoagulant the results section. ASPARTATE Routine 11/26/2020 11:50 Medication Therapy Resul ts for this AMINOTRANSFERASE (AST), AM CDT Custodial Not pro cedure are in S/P Anticoagulant the results section. CREATININE WITH EGFR, Routine 11/26/2020 11:50 Medication Ther apy Results for this S/P AM CDT Custodial Not procedure are in Anticoagulant the results section. documented in this encounter Results Creatinine with Estimated GFR (11/26/2020 11:50 AM CDT) P athologist Signature Creatinine 0.82 0.59 - 11/26/2020 DTL 1.04 mg/dL 1:22 PM CDT eGFR-Non 85 >=60 11/26/2020 DTL Black/ mL/min/BSA 1:22 PM CDT Liberian Comment: ----ADDITIONAL INFORMATION---- Estimated GFR calculated using [...] Organization Address City/State/ZIP Code Phon e Number [facility] - [address] [place], [place] [address] [facility] [place] [address] [facility] [address] AST (Aspartate Aminotransferase) (11/26/2020 11:50 AM CDT) Patholo gist Method Time Signature Aspartate 28 8 - 43 11/26/2020 DTL Aminotransferase U/L 1:22 PM CDT (AST), S Specimen Anatomical Collection Method Collection Time Receive d Time (Source) Location / / Volume Laterality Blood (Blood, 11/26/2020 11:50 11/26/2020 Venous) AM CDT 12:23 PM CDT Karlene Polo APRN.N.P. LAB BLOOD ADD-ON Performing Organization Address City/State/ZIP Code Phon e Number [facility] - [address] [place] [address] [facility] [place] [address] [facility] 200 [facility] CBC with Differential, Blood (11/26/2020 11:50 AM [...] AM CDT 12:17 PM CDT Velma Munson APRN, C.N.P. LAB BLOOD ADD-ON Performing Organization Address City/State/ZIP Code Phon e Number [facility] - [address] [place], [place] [address] [facility] [place] [address] [facility] [address] documented in this encounter Visit Diagnoses Diagnosis Medication Therapy Power Truck Driver Not Anticoa gulant documented in this encounter Additional Health Concerns Assessment Noted Time PHQ-9 Depression Total Score: 15 04/21/2018 1:00 PM BURAK T documented as of this encounter Care Teams Field Marketing Specialist Relationship Specialty Start Date End Date Elsewhere, Pcp PCP - General Internal Medicine 10/22/19 documented as of this encounter
--- OUTSIDE RECORDS SUMMARY | 2022-02-16 15:00 | XMS_ITS | Encounter Summary ---
:1970 Author Organization [facility] Address [address] [place] [address] Care Team Providers Name Role Phone Elsewhere, [...] documented as of this encounter Care Teams Touring Production Manager Relationship Specialty Start Date End Date Elsewhere, Pcp PCP - General Internal Medicine 10/22/19 documented as of this encounter
--- OUTSIDE RECORDS SUMMARY | 2022-02-16 15:00 | XMS_ITS | Encounter Summary ---
:1970 Author Organization [facility] Address [address] [place] [address] Care Team Providers Name Role Phone Elsewhere, Pcp Primary Care Provider Unavailable Reason for Referral Outpatient (Routine) - Closed Specialty Diagnoses / Procedures Referred By Contact Refer red To Contact Diagnoses Diarrhea Persistent Unexplained Julián Edouard M.D. [facility] Procedures Anorectal Manometry [address] [place] [address] Referral ID Status Reason Start Date Expiration Date Visits Requ ested Visits Authorized [id number] Closed 11/26/2020 11/26/2021 1 1 Reason for Visit Outpatient (Routine) - Closed Specialty Diagnoses / Procedures Referred By Contact Refer red To Contact Diagnoses Diarrhea Persistent Unexplained Julián Edouard M.D. [facility] Procedures Anorectal Manometry [address] [place] [address] Referral ID Status Reason Start Date Expiration Date Visits Requ ested Visits Authorized [id number] Closed 11/26/2020 11/26/2021 1 1 Encounter Details Date Type Department Care Team Description 12/11/2020 Hospital Encounter Division of Sb Edouard Persistent Gastroenterology in Julián Narayan M.D. [place], [place] [address] [place] [address] [facility]ly [facility] [phone] Social History Tobacco Use Types Packs/Day Years [...] mg total) by mouth Arthritis Inflammatory daily. ([facility]) hydrOXYchloroQUINE Take 1-2 tablets 135 tablet 3 05/27/2020 06/01/2021 (PLAQUENIL) 200 mg (200-400 mg total) tabletIndications: by mouth daily. Arthritis Inflammatory Take 2 tab on even ([facility]) days, 1 on odd. methotrexate 25 mg/mL Inject 1 mL (25 mg 12 mL 1 202005/13/2021 injectionIndications: total) under the Arthritis Inflammatory skin once a week. ([facility]) [id number] Drink 1st portion 1 box(es) 0 10/07/20202021 [id number] of prep at 6 PM the (MOVIPREP) [...] as of this encounter Care Teams Supervisor Maintenance And Custodians Relationship Specialty Start Date End Date Elsewhere, Pcp PCP - General Internal Medicine 10/22/19 documented as of this encounter
--- OUTSIDE RECORDS SUMMARY | 2022-02-16 15:00 | XMS_ITS | Encounter Summary ---
:1970 Author Organization [facility] Address [address] [place] [address] Care Team Providers Name Role Phone Elsewhere, Pcp Primary Care Provider Unavailable Reason for Referral Physical Therapy (Routine) - Closed Specialty Diagnoses / Procedures Referred By Contact Refer red To Contact Diagnoses Constipation Julián Edouard M.D. [facility] Procedures PMR Pelvic floor & bowel/bladder rehab [address] [place] [phone] Referral ID Status Reason Start Date Expiration Date Visits Requ ested Visits Authorized [id number] Closed 12/18/2020 12/18/2021 1 1 Encounter Details Date Type Department Care Team Description 12/18/2020 Orders Only Division of [facility] in Julián Narayan M.D. Dx) [place], [place] [address] [facility] [address] [place] [phone] Social History Tobacco Use Types Packs/Day Years [...] 11/16/2021 organizations such as jainism groups, unions, fraRentShare or athletic groups, or school groups? How [...] documented as of this encounter Care Teams Web Press Roll Tender Relationship Specialty Start Date End Date Elsewhere, Pcp PCP - General Internal Medicine 10/22/19 documented as of this encounter
--- OUTSIDE RECORDS SUMMARY | 2022-02-16 15:00 | XMS_ITS | Encounter Summary ---
:1970 Author Organization [facility] Address [address] [place] [address] Care Team Providers Name Role Phone Elsewhere, Pcp Primary Care Provider Unavailable Reason for Visit Reason Comments Diarrhea Outpatient (Routine) - Closed Specialty Diagnoses / Procedures Referred By Contact Refer red To Contact Diagnoses Diarrhea Persistent Unexplained Julián Edouard M.D. [facility] Procedures Enema Prep [address] [place] [phone] Referral ID Status Reason Start Date Expiration Date Visits Requ ested Visits Authorized [id number] Closed 12/04/2020 12/04/2021 1 1 Encounter Details Date Type Department Care Team Description 12/11/2020 Clinical Support Enema Prep Facility Julián Edouard M.D. [address] [place] [phone] Diarrhea Persistent in [facility] Renee Armendariz, R.NLennox [address] [place] [phone] [facility] [address] [place] [phone] Social History Tobacco Use Types Packs/Day Years [...] 11/16/2021 organizations such as uatsdin groups, unions, [employer]African Grain [employer] or athletic groups, or school groups? How [...] documented as of this encounter Care Teams Teletype Operator Relationship Specialty Start Date End Date Elsewhere, Pcp PCP - General Internal Medicine 10/22/19 documented as of this encounter
--- OUTSIDE RECORDS SUMMARY | 2022-02-16 15:00 | XMS_ITS | Encounter Summary ---
:1970 Author Organization [facility] Address [address] [place] [address] Care Team Providers Name Role Phone Elsewhere, Pcp Primary Care Provider Unavailable Reason for Referral Outpatient (Routine) - Closed Specialty Diagnoses / Procedures Referred By Contact Refer red To Contact Rheumatology Velma Munson APRN, [facility] C.N.P. 200 [place] [address] Referral ID Status Reason Start Date Expiration Date Visits Requ ested Visits Authorized [id number] Closed 03/04/2021 03/04/2022 1 1 Physical Therapy (Routine) - Authorized Specialty Diagnoses / Procedures Referred By Contact Refer red To Contact Diagnoses Arthritis Inflammatory (HCC) Pain Low Back Chronic Velma Munson APRN, C.N.P. 200 [place] [address] Referral ID Status Reason Start Expiration Visits Visits Date Date Requested Authorized [id number] Authorized Patient 03/04/2021 03/04/2022 1 1 Preference Reason for Visit Appointment Request (Routine) - Closed Specialty Diagnoses / Procedures Referred By Contact Refer red To Contact Rheumatology Diagnoses Arthritis Inflammatory (HCC) Velma Munson APRN, C.N.P. [address] [place] [phone] Referral ID Status Reason Start Date Expiration Date Visits Requ ested Visits Authorized [id number] Closed 12/01/2020 12/01/2021 1 1 Encounter Details Date Type Department Care Team Description 03/04/2021 Office Visit Division of Velma Munson Arthritis In flammatory (HCC) (Primary Dx); Rheumatology in L, MINE EXPLORATION ENGINEER, C.N.P. Pain Low Back Chronic; [place], [place] 200 [facility] High Risk Medication 200 [place] [phone] Social History Tobacco Use Types Packs/Day Years [...] More than 4 times per year 11/16/2021 jew services? Do you belong to any clubs [...] Patient global assessment (0-100) 12 12 60 Social Services Director global assessment (0-100) 10 20 30 ESR (mm/h) 10 13 17 CRP (mg/L) 3.3 5 4.8 Disease Activity Score 28 using ESR (IZQ70-TON) 1.78 2.52 3.62 Disease Activity Score 28 using CRP (HRR82-WID) 1.65 2.33 3.22 Clinical Disease Activity Index [...] xray and PT to be done in [place]. If she does not respond to the [...] C.N.P. LAB BLOOD ADD-ON Performing Organization Address [facility]/ZIP Code Phon e Number [facility]- [address] [place] [address] [place] [address] [place] [address] System in [place] [address] [address] Sedimentation Rate (07/13/2021 1:39 PM CDT) [...] C.N.P. LAB BLOOD ADD-ON Performing Organization Address City/[facility]/ZIP Code Phon e Number [facility]- [address] [place], [place] [address] [place] [address] System in [place] [address] [place] [address] DX Lumbar Spine 2-3 Views (03/04/2021 12:32 [...] documented as of this encounter Care Teams Curriculum And Instruction Director Relationship Specialty Start Date End Date Elsewhere, Pcp PCP - General Internal Medicine 10/22/19 documented as of this encounter
--- OUTSIDE RECORDS SUMMARY | 2022-02-16 15:00 | XMS_ITS | Encounter Summary ---
:[address] [facility] Address [address] [place] [address] Care Team Providers Name Role Phone Elsewhere, Pcp Primary Care Provider Unavailable Encounter Details Date Type Department Care Team Description 03/04/2021 Hospital Encounter Department of Velma Munson Pain Low Back Radiology, Luzmaria Schwartz APRN, C.N.P. Chronic Building, in [address] [place] [phone] [place] [address] [place], [place] (Work) [phone] Social History Tobacco Use [...] mcg total) Arthritis Inflammatory by mouth daily. ([facility]) hydrOXYchloroQUINE Take 1-2 tablets 135 [...] the Arthritis Inflammatory skin once a week. ([facility]) omeprazole (PriLOSEC) 20 Take 20 mg by 0 11/30/[address] capsule mouth. [id number] Drink 1st portion 1 box(es) 0 10/07/20202021 [id number] of prep at 6 PM the (MOVIPREP) [...] arthropathy. Surgical clips RUQ. IUD. Velma Munson APRN C.N.P. IMG DIAGNOSTIC IMAGING P ROCEDURES documented in this encounter Visit Diagnoses Diagnosis Pain Low Back Chronic documented in this encounter Additional Health Concerns Assessment Noted Time PHQ-9 Depression Total Score: 15 04/21/2018 1:00 PM CS T documented as of this encounter Care Teams Wound Nurse Relationship Specialty Start Date End Date Elsewhere, Pcp PCP - General Internal Medicine 10/22/19 documented as of this encounter
--- OUTSIDE RECORDS SUMMARY | 2022-02-16 15:00 | XMS_ITS | Encounter Summary ---
:1970 Author Organization [facility] Address [address] [place] [address] Care Team Providers Name Role Phone Elsewhere, Pcp Primary Care Provider Unavailable Reason for Referral Outpatient (Routine) - Closed Specialty Diagnoses / Procedures Referred By Contact Refer red To Contact Diagnoses Diarrhea Persistent Unexplained Julián Edouard M.D. [facility] Procedures Enema Prep 200 [place] [address] Referral ID Status Reason Start Date Expiration Date Visits Requ ested Visits Authorized [id number] Closed 11/26/2020 11/26/2021 1 1 Outpatient (Routine) - Closed Specialty Diagnoses / Procedures Referred By Contact Refer red To Contact Diagnoses Diarrhea Persistent Unexplained Julián Edouard M.D. [facility] Procedures Anorectal Manometry [address] [place], [place] [phone] Referral ID Status Reason Start Date Expiration Date Visits Requ ested Visits Authorized [id number] Closed 11/26/2020 11/26/2021 1 1 Reason for Visit Outpatient (Routine) - Closed Specialty Diagnoses / Referred By Referred To Cont act Procedures Contact Gastroenterology and Julián Edouard [facility] Hepatology Alex [address] [place] [address] Referral ID Status Reason Start Date Expiration Date Visits Requ ested Visits Authorized [id number] Closed 08/19/2020 08/19/2021 1 1 Encounter Details Date Type Department Care Team Description 11/26/2020 Office Visit Division of Sb Edouard Gastroenterology in Julián Narayan M.D. Unexplained (Primary [place], [place] [address] [facility] Dx) [address] [place] [phone] Social History Tobacco Use Types Packs/Day Years [...] Julián Edouard M.D. CT CT Job ID: [id number] documented in this encounter Plan of Treatment [...] documented as of this encounter Care Teams Technical Business Systems Analyst Relationship Specialty Start Date End Date Elsewhere, Pcp PCP - General Internal Medicine 10/22/19 documented as of this encounter
--- OUTSIDE RECORDS SUMMARY | 2022-02-16 15:00 | XMS_ITS | Encounter Summary ---
:1970 Author Organization [facility] Address [address] [place] [address] Care Team Providers Name Role Phone Elsewhere, Pcp Primary Care Provider Unavailable Reason for Visit Reason Comments Med Refill Encounter Details Date Type Department Care Team Description 05/27/2021 Refill Division of Rheumatology in Smita Munson sa, APRN, Med Refill [place], [place] C.N.P. [address] [facility] [address] [place] [address] [place] [address] [phone] (Wo rk) Social History Tobacco Use Types [...] More than 4 times per year 11/16/2021 episcopal services? Do you belong to any clubs [...] to pharmacy that patient will need labs. KSMITH HAMMER OPERATOR Telephone Encounter - Magnolia Morgan R.N. - 06/02/2021 11:03 AM CST Called patient to so see how she is feeling after COVID infection. Also, to discuss about getting her labs rescheduled for her Mtx refills and how much Mtx she has left. Unable to reach patient . Left a message. Will postpone to tomorrow 06-03-21. KSMITH HAMMER OPERATOR documented in this encounter Plan of Treatment Not on filedocumented as of this encounter Visit Diagnoses Diagnosis Arthritis Inflammatory (HCC) documented in this encounter Additional Health Concerns Assessment Noted Time PHQ-9 Depression Total Score: 15 04/21/2018 1:00 PM CS T documented as of this encounter Care Teams Time Recorder Relationship Specialty Start Date End Date Elsewhere, Pcp PCP - General Internal Medicine 10/22/19 documented as of this encounter
--- OUTSIDE RECORDS SUMMARY | 2022-02-16 15:00 | XMS_ITS | Encounter Summary ---
:1970 Author Organization [facility] Address [address] [place] [address] Care Team Providers Name Role Phone Elsewhere, Pcp Primary Care Provider Unavailable Reason for Visit Reason Comments Med Refill Encounter Details Date Type Department Care Team Description 05/11/2021 Refill Division of Rheumatology in Smita Munson sa, APRN, Med Refill [place], [place] C.N.P. [address] [facility] [address] [place] [address] [place] [address] [phone] (Wo rk) Social History Tobacco Use Types [...] or relatives? How often do you attend mandaeism or More than 4 times per year 11/16/2021 jew services? Do you belong to any clubs or No 11/16/2021 organizations such as mandaeism groups, unions, fraternal or athletic groups, or [...] Telephone Encounter - Sarah Stewart RLennoxN. - 05/13/2021 3:03 PM CST Prescription renewal [...] provider review due to missing monitoring labs. MOTIVE REFINISH TECHNICIAN documented in this encounter Plan of Treatment Not on filedocumented as of this encounter Visit Diagnoses Diagnosis Arthritis Inflammatory (HCC) documented in this encounter Additional Health Concerns Assessment Noted Time PHQ-9 Depression Total Score: 15 04/21/2018 1:00 PM CS T documented as of this encounter Care Teams Repair Supervisor Relationship Specialty Start Date End Date Elsewhere, Pcp PCP - General Internal Medicine 10/22/19 documented as of this encounter
--- OUTSIDE RECORDS SUMMARY | 2022-02-16 15:00 | XMS_ITS | Encounter Summary ---
:1970 Author Organization [facility] Address [address] [place] [address] Care Team Providers Name Role Phone Elsewhere, Pcp Primary Care Provider Unavailable Reason for Visit Reason Comments question regarding methotrexate and influenza A p1 Encounter Details Date Type Department Care Team Description 04/28/2021 Clinical Division of Jeimy, question regard ing Communication Rheumatology in Velma L, methotrexat e and [place], [place] REGULATORY MANAGER, C.N.P. influenza A; p1 [address] [facility] [address] [place] [address] [phone] Social History Tobacco Use Types Packs/Day Years [...] Munson APRN, C.N.P. - 05/03/2021 12:04 PM RESIDENCE SUPERVISOR I recommend holding the methotrexate until she recovers from her current symptoms. DENCE SUPERVISOR Telephone Encounter - Justine Weeks M.S.N., R.N. - 04/29/2021 10:08 AM RESIDENCE SUPERVISOR SUBJECTIVE CHIEF COMPLAINT / REASON FOR CALL [...] CNP as well for when she returns. DENCE SUPERVISOR Telephone Encounter - Violetta Mendieta - 04/28/2021 [...] Follow-up requested: Yes Preferred response (portal/phone): Phone DENCE SUPERVISOR documented in this encounter Plan of Treatment Not on filedocumented as of this encounter Visit Diagnoses Not on filedocumented in this encounter Additional Health Concerns Assessment Noted Time PHQ-9 Depression Total Score: 15 04/21/2018 1:00 PM CS T documented as of this encounter Care Teams Control Clerk Repairs Relationship Specialty Start Date End Date Elsewhere, Pcp PCP - General Internal Medicine 10/22/19 documented as of this encounter
--- OUTSIDE RECORDS SUMMARY | 2022-02-16 15:00 | XMS_ITS | Encounter Summary ---
:1970 Author Organization [facility] Address [address] [place] [address] Care Team Providers Name Role Phone Elsewhere, Pcp Primary Care Provider Unavailable Encounter Details Date Type Department Care Team Description 11/27/2020 Orders Only Division of Velma Munson Arthritis In [facility] Rheumatology in , FNPS, C.N.P. ([facility]) (Primary Dx) [place], [place] [address] [facility] [address] [place] [phone] Social History Tobacco Use Types Packs/Day Years [...] or relatives? How often do you attend gnosticist or More than 4 times per year 11/16/2021 jainism services? Do you belong to any clubs or No 11/16/2021 organizations such as gnosticist groups, unions, fraternal or athletic groups, or [...] on filedocumented as of this encounter Results Cyclic Citrullinated Peptide Antibodies, IgG (02/05/2021 2:08 PM CDT) Analysis Performed At Patho logist Time Signature Cyclic <15.6 <20.0 02/06/2021 [facility] Citrullinated (Negative) 12:19 PM CDT Peptide Ab, S U Specimen Anatomical Collection Method Collection Time Receive d Time (Source) Location / / Volume Laterality Blood (Blood, 02/05/2021 2:08 PM 02/07/20 21 7:11 Venous) CDT AM CDT Velma Munson APRN, C.N.P. LAB BLOOD ADD-ON Performing Organization Address City/State/ZIP Code Phon e Number [facility] [address] [place] [address] SUPPORT [facility] [place] [address] Laboratory Medicine and Pathology [address] [place] [address] Dr. LOPEZ (ABNORMAL) Rheumatoid Factor (02/05/2021 2:08 PM CDT) P athologist Signature Rheumatoid 18 (H) <15 IU/mL 02/06/2021 [facility] Factor, S 9:11 AM CDT Specimen Anatomical Collection Method Collection Time Receive d Time (Source) Location / / Volume Laterality Blood (Blood, 02/05/2021 2:08 PM 02/07/20 21 8:39 Venous) CDT AM CDT Velma Munson APRN, C.N.P. LAB BLOOD ADD-ON Performing Organization Address City/State/ZIP Code Phon e Number [facility] [address] [place], [place] [address] SUPPORT [facility] [place] [address] Laboratory Medicine and Pathology [address] LOPEZ DNA Double-Stranded (dsDNA) Antibodies, IgG (02/05/2021 2:08 PM CDT) athologist Signature DNA <1 <=4 02/06/2021 [facility] Double-Stranded (Negative) 3:07 PM CDT Ab, IgG, S IU/mL Specimen Anatomical Collection Method Collection Time Receive d Time (Source) Location / / Volume Laterality Blood (Blood, 02/05/2021 2:08 PM 02/06/20 9:38 Venous) CDT PM CDT Jorge Polo APRNNSandra LAB BLOOD ADD-ON Performing Organization Address City/[facility] Phon e Number [facility]- [address] [place] [address] [phone] [facility] [place] [address] System [address] Antibody to Extractable Nuclear Antigen Evaluation (02/05/2021 2:08 PM CDT) athologist Signature SS-A/Ro Ab, <0.2 <1.0 02/06/2021 [facility] IgG, S (Negative) 3:07 PM CDT U SS-B/La Ab, <0.2 <1.0 02/06/2021 [facility] IgG, S (Negative) 3:07 PM CDT U Sm Ab, IgG, S <0.2 <1.0 02/06/2021 [facility] (Negative) 3:07 PM CDT U HOOP MAKER Ab, IgG, S <0.2 <1.0 02/06/2021 [facility] [...] PM 02/06/20 9:38 Venous) CDT PM CDT Karlene Polo APRN.N.P. LAB BLOOD ADD-ON Performing Organization Address [facility] Phon e Number [facility]- [address] [place] [address] [phone] [facility] [place] [address] System [address] (ABNORMAL) Antinuclear Antibodies, HEp-2 Substrate, IgG, Serum (02/05/2021 2:08 PM CDT) [facility] Method Time Signature Antinuclear Ab Positive [...] Karlene.N.P. LAB BLOOD ADD-ON Performing Organization Address [facility] Phon e Number [facility]- [address] [place] [address] [phone] [facility] [place] [address] System [address] documented in this encounter Visit Diagnoses Diagnosis Arthritis Inflammatory (HCC) - Primary documented in this encounter Additional Health Concerns Assessment Noted Time PHQ-9 Depression Total Score: 15 04/21/2018 1:00 PM CS T documented as of this encounter Care Teams Regulatory Analyst Relationship Specialty Start Date End Date Elsewhere, Pcp PCP - General Internal Medicine 10/22/19 documented as of this encounter
--- OUTSIDE RECORDS SUMMARY | 2022-02-16 15:00 | XMS_ITS | Encounter Summary ---
:1970 Author Organization [facility] Address [address] [place] [address] Care Team Providers Name Role Phone Elsewhere, Pcp Primary Care Provider Unavailable Reason for Visit Reason Comments Med Refill Encounter Details Date Type Department Care Team Description 12/18/2020 Refill Division of Gastroenterology in Julián Edouard Med Refill [place], [place] Alex [address] [facility] [address] [place] [address] [place], [place] [phone] (Wo rk) Social History Tobacco Use Types [...] Julián Edouard M.D. CT CT Job ID: [id number] documented in this encounter Plan of Treatment Not on filedocumented as of this encounter Visit Diagnoses Not on filedocumented in this encounter Additional Health Concerns Assessment Noted Time PHQ-9 Depression Total Score: 15 04/21/2018 1:00 PM CS T documented as of this encounter Care Teams Floor Worker Relationship Specialty Start Date End Date Elsewhere, Pcp PCP - General Internal Medicine 10/22/19 documented as of this encounter
--- OUTSIDE RECORDS SUMMARY | 2022-02-16 15:00 | XMS_ITS | Encounter Summary ---
:1970 Author Organization [facility] Address [address] [place] [address] Care Team Providers Name Role Phone Elsewhere, Pcp Primary Care Provider Unavailable Reason for Visit Reason Comments Lab Monitoring Methotrexate Encounter Details Date Type Department Care Team Description 02/02/2021 Clinical Communication Division of Justine Weeks onitoring Rheumatology in L, M.S.N., (Methotrexat e ) [place], [place] R.N. [address] [facility] [address] [facility] [phone] [facility] [phone] [place] [address] Social History Tobacco Use Types Packs/Day Years [...] as of this encounter Care Teams Quality Measurement Specialist Relationship Specialty Start Date End Date Elsewhere, Pcp PCP - General Internal Medicine 10/22/19 documented as of this encounter
--- OUTSIDE RECORDS SUMMARY | 2022-02-16 15:00 | XMS_ITS | Encounter Summary ---
:1970 Author Organization [facility] Address [address] [place] [address] Care Team Providers Name Role Phone Elsewhere, Pcp Primary Care Provider Unavailable Reason for Visit Reason Comments Diarrhea Outpatient (Routine) - Closed Specialty Diagnoses / Procedures Referred By Contact Refer red To Contact Diagnoses Diarrhea Persistent Unexplained Julián Edouard M.D. [facility] Procedures Enema Prep [address] [place] [phone] Referral ID Status Reason Start Date Expiration Date Visits Requ ested Visits Authorized [id number] Closed 11/26/2020 11/26/2021 1 1 Encounter Details Date Type Department Care Team Description 12/04/2020 Clinical Support Enema Prep Facility Julián Edouard M.D. [address] [place] [address] [phone] Diarrhea Persistent in [place], Margi Duckworth M, RLennoxNLennox [address] [place] [phone] [facility] [address] [place] [phone] Social History Tobacco Use Types Packs/Day Years [...] 11/16/2021 organizations such as advent groups, unions, fra8villages or athletic groups, or school groups? How [...] Enema was not given. She went to [place] [facility] 9 to reschedule and I gave her a parking pass as this was miscommunication. documented in this encounter Plan of Treatment Not on filedocumented as of this encounter Visit Diagnoses Diagnosis Diarrhea Persistent Unexplained documented in this encounter Additional Health Concerns Assessment Noted Time PHQ-9 Depression Total Score: 15 04/21/2018 1:00 PM CS T documented as of this encounter Care Teams Cable Assembler And Swager Relationship Specialty Start Date End Date Elsewhere, Pcp PCP - General Internal Medicine 10/22/19 documented as of this encounter
--- OUTSIDE RECORDS SUMMARY | 2022-02-16 15:00 | XMS_ITS | Encounter Summary ---
:1970 Author Organization [facility] Address [address] [place] [address] Care Team Providers Name Role Phone Elsewhere, Pcp Primary Care Provider Unavailable Reason for Visit Reason Comments Lab Monitoring Encounter Details Date Type Department Care Team Description 02/27/2021 Clinical Communication Division of Kaylie Vu Monitoring Rheumatology in L, M.A.N., R.N. [place], [place] [address] [facility] [address] [place] [phone] Social History Tobacco Use Types Packs/Day Years [...] on filedocumented as of this encounter Results Creatinine with Estimated GFR (07/13/2021 1:39 PM CDT) P athologist Signature Creatinine 0.80 0.59 - 07/13/2021 CNFL 1.04 mg/dL 2:10 PM CDT eGFR-Black/Afric >90 >=60 07/13/2021 CNFL an Mosotho mL/min/BSA 2:10 PM CDT Comment: ----ADDITIONAL INFORMATION---- [...] LAB BLOOD ADD-ON Performing Organization Address [facility] Phon e Number [address] [address] [place] [address] System [address] AST (Aspartate Aminotransferase) (07/13/2021 1:39 PM CDT) [facility] Method Time Signature Aspartate 22 8 - 43 07/13/2021 CNFL Aminotransferase U/L 2:10 PM CDT (AST), P Specimen Anatomical Collection Method Collection Time Receive d Time (Source) Location / / Volume Laterality Blood (Blood, 07/13/2021 1:39 PM 07/14/19 1:40 Venous) CDT PM CDT Jorge Polo APRNN.P. LAB BLOOD ADD-ON Performing Organization Address [facility] Phon e Number [address] [address] [place] [address] [address] (ABNORMAL) CBC with Differential, Blood (07/13/2021 1:39 PM CDT) [facility] Method Time Signature Hemoglobin 14.1 11.6 - [...] C.N.P. 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
--- OUTSIDE RECORDS SUMMARY | 2022-02-16 15:00 | XMS_ITS | Encounter Summary ---
:1970 Author Organization [facility] Address [address] [place] [address] Care Team Providers Name Role Phone Elsewhere, Pcp Primary Care Provider Unavailable Encounter Details Date Type Department Care Team Description 12/16/2020 Orders Only [facility] PCP [facility] Sa jordy Gibson M.D. [address] [place], [place] [phone] (Wo rk) Social History [...] documented as of this encounter Care Teams Ship Scaler Relationship Specialty Start Date End Date Elsewhere, Pcp PCP - General Internal Medicine 10/22/19 documented as of this encounter
--- OUTSIDE RECORDS SUMMARY | 2022-02-16 15:01 | XMS_ITS | Encounter Summary ---
:1970 Author Organization [facility] Address [address] [place] [address] Care Team Providers Name Role Phone Elsewhere, Pcp Primary Care Provider Unavailable Reason for Visit Reason Comments Comprehensive GI Results Encounter Details Date Type Department Care Team Description 09/30/2020 Clinical Division of Lolita Edouard I; Communication Gastroenterology in Abby Wilde [place], [place] Alex [address] [facility] [address] [facility] [address] [facility] [phone] [place] [phone] Social History Tobacco Use Types Packs/Day Years [...] documented as of this encounter Care Teams Health And Human Performance Professor Relationship Specialty Start Date End Date Elsewhere, Pcp PCP - General Internal Medicine 10/22/19 documented as of this encounter
--- OUTSIDE RECORDS SUMMARY | 2022-02-16 15:01 | XMS_ITS | Encounter Summary ---
:1970 Author Organization [facility] Address [address] [place] [address] Care Team Providers Name Role Phone Elsewhere, Pcp Primary Care Provider Unavailable Reason for Visit Outpatient (Routine) - Closed Specialty Diagnoses / Procedures Referred By Contact Refer red To Contact Rheumatology Velma Munson APRN, [facility] C.N.P. [address] [place] [phone] Referral ID Status Reason Start Date Expiration Date Visits Requ ested Visits Authorized [id number] Closed 10/02/2020 10/02/2021 1 1 Encounter Details Date Type Department Care Team Description 10/31/2020 Virtual Visit Division of Velma Munson APRN, C.N.P. [address] [place] [phone] Medication Therapy Custodial Not Anticoa gulant (Primary Dx); [facility] M.A.N., R.N. [address] [place] [phone] Arthritis Inflammatory (HCC) [place], [place] [address] [place] [phone] Social History Tobacco Use Types Packs/Day Years [...] 11/16/2021 organizations such as gnosticism groups, unions, fraPacket Island or athletic groups, or school groups? How [...] only with labs to be drawn in [place] on tuesday at 7:00 AM. Her Pharmacy is [facility] in [place], and would like a prescription for needles [...] 11/26/2020 DTL Black/ mL/min/BSA 1:22 PM CDT Chinese Comment: ----ADDITIONAL INFORMATION---- Estimated GFR calculated using the 2009 CKD_EPI creatinine equation. eGFR-Black/ >90 >=60 mL/min/BSA 2020 1:22 PM CDT DTL Comment: ----ADDITIONAL INFORMATION---- Estimated GFR calculated using the 2009 CKD_EPI creatinine equation. Specimen Anatomical Collection Method Collection Time Receive d Time (Source) Location / / Volume Laterality Blood (Blood, 11/26/2020 11:50 11/26/2020 Venous) AM CDT 12:23 PM CDT Jorge Polo APRNN.P. LAB BLOOD ADD-ON Performing Organization Address City/State/ZIP Code Phon e Number [facility] - [address] [place], [place] [address] [facility] [place] [place] [address] [facility] [address] AST (Aspartate Aminotransferase) (11/26/2020 [...] Organization Address City/State/ZIP Code Phon e Number [facility] - [address] [place] [phone] [facility] [place] [place] [address] [facility] 200 [facility] CBC with Differential, Blood (11/26/2020 11:50 AM [...] Organization Address City/State/ZIP Code Phon e Number [facility] - [address] [place], [place] [address] [facility] [place] [address] [facility] [address] documented in this encounter Visit Diagnoses Diagnosis 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
--- OUTSIDE RECORDS SUMMARY | 2022-02-16 15:01 | XMS_ITS | Encounter Summary ---
:1970 Author Organization [facility] Address [address] [place] [address] Care Team Providers Name Role Phone Elsewhere, Pcp Primary Care Provider Unavailable Reason for Referral Medication Prior Authorization - Denied Specialty Diagnoses / Procedures Referred By Contact Refer red To Contact Velma Munson A PRN, C.N.P. [address] [place] [phone] Referral ID Status Reason Start Date Expiration Date Visits Requ ested Visits Authorized [id number] Denied 1 1 Encounter Details Date Type Department Care Team Description 11/05/2020 Clinical Communication Division of Velma Munson Rheumatology in LONG Schwartz, C.N.P. [place], [place] [address] [place] [address] [address] [place] [phone] Social History Tobacco Use Types Packs/Day [...] documented as of this encounter Care Teams Hvac/R Service Technician Relationship Specialty Start Date End Date Elsewhere, Pcp PCP - General Internal Medicine 10/22/19 documented as of this encounter
--- OUTSIDE RECORDS SUMMARY | 2022-02-16 15:01 | XMS_ITS | Encounter Summary ---
:1970 Author Organization [facility] Address [address] [place] [address] Care Team Providers Name Role Phone Elsewhere, Pcp Primary Care Provider Unavailable Reason for Visit Reason Comments Rx Prior Authorization CRISTINA DENIED DICLOFENAC SOD GEL Pre-visit Testing Orders Encounter Details Date Type Department Care Team Description 11/10/2020 Clinical Division of Jeimy, Rx Prior Communication Rheumatology in Velma Schwartz, Authorizati on (CRISTINA [place] APRN, C.N.P. DENIED DICLOFENAC [place] [address] [facility] SOD GEL); Pre-visit [address] [place], [place] [phone] Social History Tobacco Use Types Packs/Day Years [...] to pay for the very basics like [employer] hat hard 11/16/2021 food, housing, medical care, [...] CDT eGFR-Black/Afric >90 >=60 02/05/2021 CNFL an Bolivian mL/min/BSA 2:55 PM CDT Comment: ----ADDITIONAL INFORMATION---- [...] 02/06/20 21 2:10 Venous) CDT PM CDT Velma Munson APRN CLennoxN.P. LAB BLOOD ADD-ON Performing Organization Address City/State/[facility] Code Phon e Number [facility]- [address] [place] [address] [place] [address] [place] [address] System [address] AST (Aspartate Aminotransferase) (02/05/2021 2:08 PM CDT) [...] Organization Address City/State/ZIP Code Phon e Number [facility]- [address] [place] [address] [place] [address] System [address] CRP (C-Reactive Protein) (02/05/2021 2:08 PM CDT) P athologist Signature C-Reactive 4.8 <=8.0 mg/L 02/05/2021 CNFL Protein (CRP), 2:55 PM CDT P Specimen Anatomical Collection Method Collection Time Receive d Time (Source) Location / / Volume Laterality Blood (Blood, 02/05/2021 2:08 PM 02/06/20 2:10 Venous) CDT PM CDT Jorge Polo APRNN.P. LAB BLOOD ADD-ON Performing Organization Address City/[facility]/ZIP Code Phon e Number [facility]- [address] [place] [address] [place] [address] System in [address] Sedimentation Rate (02/05/2021 2:08 PM CDT) Analysis [...] Organization Address City/State/ZIP Code Phon e Number [facility]- [address] [place] [address] [facility] [place] [address] System in [place] [address] [place] CBC with Differential, Blood (02/05/2021 2:08 PM [...] 02/06/20 21 2:10 Venous) CDT PM CDT Velma Munson APRN, C.N.P. LAB BLOOD ADD-ON Performing Organization Address City/State/ZIP Code Phon e Number [facility]- [address] [address] [place] [address] System in [place] [address] [address] documented in this encounter Visit Diagnoses Diagnosis Arthritis Inflammatory (HCC) - Primary documented in this encounter Additional Health Concerns Infection Onset Date Last Indicated Resolved Time COVID19 Pending 11/15/2020 11/15/2020 11/15/2020 10:25 PM CDT Assessment Noted Time PHQ-9 Depression Total Score: 15 04/21/2018 1:00 PM CS T documented as of this encounter Care Teams Rolling Mill Plugger Relationship Specialty Start Date End Date Elsewhere, Pcp PCP - General Internal Medicine 10/22/19 documented as of this encounter
--- OUTSIDE RECORDS SUMMARY | 2022-02-16 15:01 | XMS_ITS | Encounter Summary ---
:1970 Author Organization [facility] Address [address] [place] [address] Care Team Providers Name Role Phone Elsewhere, Pcp Primary Care Provider Unavailable Reason for Referral Outpatient (Routine) - Closed Specialty Diagnoses / Procedures Referred By Contact Refer red To Contact Rheumatology Velma Munson [facility]N [facility] [address] [place] [phone] Referral ID Status Reason Start Date Expiration Date Visits Requ ested Visits Authorized [id number] Closed 10/02/2020 10/02/2021 1 1 Scheduling Instructions 9am slot Specialty Diagnoses / Procedures Referred By Contact Refer red To Contact Velma Munson A PRN, C.N.P. [address] [phone] Referral ID Status Reason Start Date Expiration Date Visits Requ ested Visits Authorized Reason for Visit Reason Comments Medication Question Encounter Details Date Type Department Care Team Description 10/01/2020 Clinical Division of Velma Munson Medication Communication Rheumatology in LONG Schwartz, C.N.P. [place], [place] [address] [place] [address] [place] [phone] Social History Tobacco Use Types Packs/Day [...] references were used: provider Velma Munson APRN, SINTIA. Telephone Encounter - Velma Munson APRN, C.N.P. [...] Patient portal Y/N/Offered Information:yes Preferred response (portal/phone): [phone] documented in this encounter Plan of Treatment [...] documented as of this encounter Care Teams Dispatcher Street Department Relationship Specialty Start Date End Date Elsewhere, Pcp PCP - General Internal Medicine 10/22/19 documented as of this encounter
--- OUTSIDE RECORDS SUMMARY | 2022-02-16 15:01 | XMS_ITS | Encounter Summary ---
:[address] [facility] Address [address] [place] [address] Care Team Providers Name Role Phone Elsewhere, Pcp Primary Care Provider Unavailable Encounter Details Date Type Department Care Team Description 10/31/2020 Orders Only Division of Sawyer Nicholson, Medication T herapy Long Rheumatology in R.N. Term Not Anticoagulant [place], [place] [phone] (Primary Dx) [address] [facility] (Work) [place] [phone] Social History Tobacco Use Types Packs/Day Years [...] this encounter Visit Diagnoses Diagnosis Medication Therapy Custodial Not Anticoa gulant - Primary documented in this encounter Additional Health Concerns Assessment Noted Time PHQ-9 Depression Total Score: 15 04/21/2018 1:00 PM CS T documented as of this encounter Care Teams Gang Supervisor Relationship Specialty Start Date End Date Elsewhere, Pcp PCP - General Internal Medicine 10/22/19 documented as of this encounter
--- OUTSIDE RECORDS SUMMARY | 2022-02-16 15:01 | XMS_ITS | Encounter Summary ---
:1970 Author Organization [facility] Address [address] [place] [address] Care Team Providers Name Role Phone Elsewhere, Pcp Primary Care Provider Unavailable Reason for Referral Outpatient (Routine) - Closed Specialty Diagnoses / Procedures Referred By Contact Refer red To Contact Diagnoses Julián Carpio M.D. [facility] Procedures Breath test, Hydrogen, Glucose - Bacterial overgrowth [address] [place], [place] [address] Referral ID Status Reason Start Date Expiration Date Visits Requ ested Visits Authorized [id number] Closed 08/19/2020 08/19/2021 1 1 Reason for Visit Outpatient (Routine) - Closed Specialty Diagnoses / Procedures Referred By Contact Refer red To Contact Diagnoses Julián Carpio M.D. [facility] Procedures Breath test, Hydrogen, Glucose - Bacterial overgrowth [address] [place] [phone] Referral ID Status Reason Start Date Expiration Date Visits Requ ested Visits Authorized [id number] Closed 08/19/2020 08/19/2021 1 1 Encounter Details Date Type Department Care Team Description 09/30/2020 Hospital Encounter Division of Gastroenterology Julián Freeman in [facility] kristin Narayan M.D. [address] [facility] [address] [place] [address] [place], [place] [phone] Social History Tobacco Use Types Packs/Day Years [...] Take 5-10 mL by 480 mL 11 04/13 /2021 2 %-antacid (mw) mouth 4 (four) times [...] Hydrogen Breath Test (09/30/2020 2:38 PM CDT) P athologist Signature Hydrogen Glucose 09/30/2020 [facility] Breath [...] diarrhea with steatorrhea. ??Symptoms: None Sheila Anthony ([id number]) Specimen Anatomical Collection Method Collection Time Receive d Time (Source) Location / / Volume Laterality Breath 09/30/2020 2:38 PM 2:38 CDT PM CDT Julián Edouard M.D. LAB BODY FLUIDS AND STOOLS O RDERABLES Performing Organization Address City/State/ZIP Code Phon e Number [facility] - [address] [place], [place] [address] [place] [address] Laboratories-[facility] [address] documented in this encounter Visit Diagnoses Diagnosis Flatulence documented in this encounter Additional Health Concerns Assessment Noted Time PHQ-9 Depression Total Score: 15 04/21/2018 1:00 PM BURAK T documented as of this encounter Care Teams Healthcare Technician Relationship Specialty Start Date End Date Elsewhere, Pcp PCP - General Internal Medicine 10/22/19 documented as of this encounter
--- OUTSIDE RECORDS SUMMARY | 2022-02-16 15:01 | XMS_ITS | Encounter Summary ---
:1970 Author Organization [facility] Address [address] [place] [address] Care Team Providers Name Role Phone Elsewhere, Pcp Primary Care Provider Unavailable Reason for Referral Outpatient (Routine) - Closed Specialty Diagnoses / Procedures Referred By Contact Refer red To Contact Diagnoses Diarrhea Persistent Unexplained Julián Edouard M.D. [facility] Procedures Colonoscopy 200 [place], [place] [phone] Referral ID Status Reason Start Date Expiration Date Visits Requ ested Visits Authorized [id number] Closed 10/07/2020 10/07/2021 1 1 Outpatient (Routine) - Closed Specialty Diagnoses / Procedures Referred By Contact Refer red To Contact Diagnoses Gastroesophageal Reflux Disease Julián Edouard M.D. [facility] Procedures EGD (EsophagoGastroDuodenoscopy) Restricted 200 [place] [address] Referral ID Status Reason Start Date Expiration Date Visits Requ ested Visits Authorized [id number] Closed 08/19/2020 08/19/2021 1 1 Reason for Visit Outpatient (Routine) - Closed Specialty Diagnoses / Procedures Referred By Contact Refer red To Contact Diagnoses Gastroesophageal Reflux Disease Julián Edouard M.D. [facility] Procedures EGD (EsophagoGastroDuodenoscopy) Restricted 200 [place], [place] [address] Referral ID Status Reason Start Date Expiration Date Visits Requ ested Visits Authorized [id number] Closed 08/19/2020 08/19/2021 1 1 Encounter Details Date Type Department Care Team Description 11/19/2020 Hospital Division of Julián Edouard M.D. [address] [place] [phone] Gastroesophageal Reflux Disease; Encounter Gastroenterology in Nano Keane, SQUAD LEADER, VICE PRESIDENT FOR INSTRUCTION, DNAP [address] [place] [phone] Diarrhea Persistent Unexplained [place], [place] [address] [place] [phone] Social History Tobacco Use Types Packs/Day Years [...] tabletIndications: total) by mouth Arthritis Inflammatory daily. ([facility]) hydrOXYchloroQUINE Take 1-2 tablets 135 tablet 3 05/27/2020 06/01/2021 (PLAQUENIL) 200 mg (200-400 mg total) tabletIndications: by mouth daily. Arthritis Inflammatory Take 2 tab on even (HCC) days, 1 on odd. methotrexate 25 mg/mL Inject 0.8 mL (20 10 mL 1 021 11/27/2020 injectionIndications: mg total) under the Arthritis Inflammatory skin once a week. ([facility]) [id number] Drink 1st portion 1 box(es) 0 10/07/20202021 [id number]-[id number]-C of prep at 6 PM the (MOVIPREP) 100-7.5-2.691 evening before. 2nd gram per packet portion must be started 3 hours before and finished 2 hours prior to report time pilocarpine (SALAGEN) 5 Take 1 tablet (5 mg 90 tablet 5 08/06/2021 mg tabletIndications: total) by mouth 3 Xerostomia (three) times a day. syringe with needle (BD Inject 1 Syringe [...] Component Value Ref Test Analysis Performed At [facility] gist Range Method Time Signature 11/20/2020 DTL 6:02 PM CDT Participated in Shantell Haydenallen, 11/20/2020 DTL the Alex 6:02 PM CDT Interpretation -Pathology Fellow Report Mo Dong M.D., [id number] DTL electronically 6:02 PM CDT signed by [...] en toto in cassette A1. ??Grossed by AJJoseph. Interpretation FINAL DIAGNOSIS 11/20/2020 DTL A. ??Colon, [...] City/State/ZIP Code Phon e Number [facility] - [address] [place], [place] [address] [facility] [place] [address] Laboratories-[facility] [address] Colonoscopy (11/19/2020 9:15 AM CDT) Specimen (Source) Anatomical Collection Method Collection Time Re ceived Time Location / / Volume Laterality 11/19/2020 9:15 AM CDT Impressions [facility] - 11/19/2020 10:19 AM CDT Post-op Diagnoses: ? - The entire examined colon is no rmal. Biopsied. ? - The examined portion of the ile um was normal. Narrative [facility] - 11/19/2020 10:19 AM CDT Gonda 2 [...] preparation was evaluated using t he BBPS ([place] Bowel Preparation ? Scale) [Segment Scores]. The [...] Organization Address City/State/ZIP Code Phon e Number [facility] NA Upper GI Endoscopy (11/19/2020 9:15 AM CDT) Specimen (Source) Anatomical Collection Method Collection Time Re ceived Time Location / / Volume Laterality 11/19/2020 9:15 AM CDT Impressions [facility] - 11/19/2020 10:16 AM CDT Post-op Diagnoses: ? - LA Grade C ulcerative esophagit is. Lynn not placed. ? - 2 cm hiatal hernia. ? - Normal examined duodenum. ? - No specimens collected. Narrative [facility] - 11/19/2020 10:16 AM CDT Gonda 2 [...] documented as of this encounter Care Teams Industrial Cafeteria Manager Relationship Specialty Start Date End Date Elsewhere, Pcp PCP - General Internal Medicine 10/22/19 documented as of this encounter
--- OUTSIDE RECORDS SUMMARY | 2022-02-16 15:01 | XMS_ITS | Encounter Summary ---
:1970 Author Organization [facility] Address [address] [place] [address] Care Team Providers Name Role Phone Elsewhere, Pcp Primary Care Provider Unavailable Encounter Details Date Type Department Care Team Description 11/19/2020 Anesthesia Event Division of Bev Keane, SERGING MACHINE OPERATOR, NACHO, DNAP [address] [place] [phone] [facility] [address] [place] [phone] [place], [place] [address] [place] [address] Anesthesia Record Procedure Summary Procedure Name Responsible Anesthesia Start Anesthesia Stop Anesthesiologist Time Time EGD Nano Keane, 11/19/20 0924 11/19/20 1015 (ESOPHAGOGASTRODUODE SERGING MACHINE OPERATOR, TERRAZZO TILE SETTER, DNAP NOSCOPY) RESTRICTED Events Date Time Event [...] h andoff to the receiving staff during [facility] ch we 1. Identified the patient 2. [...] Room / Location: Division of Gastroenterology in [place], [place]; Division of Gastroenterology in [place], [place] Anesthesia Start: 923 Anesthesia Stop: 1014 [...] & H&P Assessment Procedure Summary Date/Time: 11/19/20 0735 Scheduled providers: Nano Keane APRN, NACHO, LOGAN Procedures: EGD (ESOPHAGOGASTRODUODENOSCOPY) RESTRICTED COLONOSCOPY Diagnosis: Gastroesophageal Reflux Disease [K21.9] Diarrhea Persistent Unexplained [R19.7] Location: Division of Gastroenterology in [place], [place]; Division of Gastroenterology in [place], [place] Pertinent components of the patient's history [...] with patient /legal guardian or through an sleep manager. Risks/Benefits/Alternatives of Blood transfusion discussed with [...] documented as of this encounter Care Teams Non Destructive Testing Technician Relationship Specialty Start Date End Date Elsewhere, Pcp PCP - General Internal Medicine 10/22/19 documented as of this encounter
--- OUTSIDE RECORDS SUMMARY | 2022-02-16 15:01 | XMS_ITS | Encounter Summary ---
:1970 Author Organization [facility] Address [address] [place] [address] Care Team Providers Name Role Phone Elsewhere, Pcp Primary Care Provider Unavailable Encounter Details Date Type Department Care Team Description 09/26/2020 Lab Department of Laboratory Julián Edouard, Preprocedural Lab Exam Medicine and PathologyLuzmaria. [facility], in [address] [place] [address] [place] [phone] [place] [address] [phone] Social History Tobacco Use Types Packs/Day Years [...] PCR, Varies Asymptomatic (09/26/2020 3:59 PM CDT) [facility] gist Method Time Signature SARS CoV-2 Swab, 09/27/2020 [...] Drug Administration an d is used per retread supervisor's instructions. Performance characteristics were verified by [facility] in a manner consistent with CLIA requirements. Visit the CDC website: https://www.cdc.g ov/coronavirus/ for the most recent guidelines on Coron avirus testing. Fact Sheet for Healthcare Providers: https://www.fda.gov/media/177678/downloa d Fact Sheet for Patients: https://www.fda.gov/media/153966/downloa d Specimen Anatomical Collection Method Collection Time Receive d Time (Source) Location / / Volume Laterality Varies 09/26/2020 3:59 PM 4:15 (Nasopharynx) CDT PM CDT Julián Edouard M.D. LAB MICROBIOLOGY - GENERAL O RDERABLES Performing Organization Address City/State/[facility] Phon e Number [facility] - [address] [place], [place] [address] [facility] [place] [address] Laboratories-[facility] [address] documented in this encounter Visit Diagnoses Diagnosis Preprocedural Lab Exam documented in this encounter Additional Health Concerns Infection Onset Date Last Indicated Resolved Time COVID19 Pending 09/19/2020 09/26/2020 09/27/2020 5:53 AM CDT Assessment Noted Time PHQ-9 Depression Total Score: 15 04/21/2018 1:00 PM CS T documented as of this encounter Care Teams Nursing Secretary Relationship Specialty Start Date End Date Elsewhere, Pcp PCP - General Internal Medicine 10/22/19 documented as of this encounter
--- OUTSIDE RECORDS SUMMARY | 2022-02-16 15:01 | XMS_ITS | Encounter Summary ---
:1970 Author Organization [facility] Address [address] [place] [address] Care Team Providers Name Role Phone Elsewhere, Pcp Primary Care Provider Unavailable Encounter Details Date Type Department Care Team Description 11/11/2020 Orders Only Urgent Care in [place], [place] Janelle Locke [address] [place] [phone] Social History Tobacco Use Types Packs/Day [...] documented as of this encounter Care Teams Cpas Relationship Specialty Start Date End Date Elsewhere, Pcp PCP - General Internal Medicine 10/22/19 documented as of this encounter
--- OUTSIDE RECORDS SUMMARY | 2022-02-16 15:01 | XMS_ITS | Encounter Summary ---
:1970 Author Organization [facility] Address [address] [place] [address] Care Team Providers Name Role Phone Elsewhere, Pcp Primary Care Provider Unavailable Reason for Referral Outpatient (Routine) - Closed Specialty Diagnoses / Procedures Referred By Contact Refer red To Contact Diagnoses Julián Carpio M.D. 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 [address] [place] [address] [place], [place] [phone] Social History Tobacco Use Types Packs/Day Years [...] of this encounter Plan of Treatment Scheduled Orders [...] Hydrogen Breath Test (09/26/2020 1:36 PM CDT) [facility] Method Time Signature Hydrogen Fructose 09/26/2020 [facility] [...] base line). 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 [...] such as sever e constipation. Alejo Butcher ([id number]) ?? ----PREVIOUSLY REPORTED ---- Negative breath test for fructose malabsorption (less than or equal to 19 PPM rise in breath hydrogen compared to baseline). 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 [...] the test) or other causes. Alejo Butcher ([id number]) ?(Reported 2020 15:45) Specimen Anatomical Collection Method Collection Time Receive d Time (Source) Location / / Volume Laterality Breath 09/26/2020 1:36 PM 1:36 CDT PM CDT Julián Edouard M.D. LAB BODY FLUIDS AND STOOLS O RDERABLES Performing Organization Address City/State/ZIP Code Phon e Number [facility] - [address] [place], [place] [address] [place] [address] Laboratories-[facility] [address] documented in this encounter Visit Diagnoses Diagnosis Flatulence documented in this encounter Additional Health Concerns Infection Onset Date Last Indicated Resolved Time COVID19 Pending 09/19/2020 09/26/2020 09/27/2020 5:53 AM CDT Assessment Noted Time PHQ-9 Depression Total Score: 15 04/21/2018 1:00 PM CS T documented as of this encounter Care Teams Astronomy Instructor Relationship Specialty Start Date End Date Elsewhere, Pcp PCP - General Internal Medicine 10/22/19 documented as of this encounter
--- OUTSIDE RECORDS SUMMARY | 2022-02-16 15:01 | XMS_ITS | Encounter Summary ---
:1970 Author Organization [facility] Address [address] [place] [address] Care Team Providers Name Role Phone Elsewhere, Pcp Primary Care Provider Unavailable Reason for Visit Reason Comments Med Refill Encounter Details Date Type Department Care Team Description 10/02/2020 Refill Division of Rheumatology in Sarah Chavez R.N. Med Refill [place], [place] [address] [facility] [address] [place] [phone] [phone] Social History Tobacco Use Types Packs/Day Years [...] or relatives? How often do you attend orthodox or More than 4 times per year 11/16/2021 methodist services? Do you belong to any clubs or No 11/16/2021 organizations such as orthodox groups, unions, fraternal or athletic groups, [...] documented as of this encounter Care Teams Structural Steel Fitter Relationship Specialty Start Date End Date Elsewhere, Pcp PCP - General Internal Medicine 10/22/19 documented as of this encounter
--- OUTSIDE RECORDS SUMMARY | 2022-02-16 15:01 | XMS_ITS | Encounter Summary ---
:1970 Author Organization [facility] Address [address] [place] [address] Care Team Providers Name Role Phone Elsewhere, Pcp Primary Care Provider Unavailable Encounter Details Date Type Department Care Team Description 10/30/2020 Hospital Encounter Department of Velma Munson ation Therapy Laboratory Medicine LONG Schwartz, C.N .P. Senior Care Not in [place] [phone] [facility] [phone] [place], [place] (Work) [phone] Social History Tobacco Use [...] Inflammatory the skin once a (HCC) week. [id number] Drink 1st portion 1 box(es) 0 10/07/20202021 [id number]-C of prep at 6 PM (MOVIPREP) 100-7.5-2.691 [...] Th erapy Results for this PM CDT Senior Care Not procedure are in Anticoagulant the results section. ASPARTATE Routine 10/30/2020 5:53 Medication Therapy Result s for this AMINOTRANSFERASE (AST), PM CDT Senior [facility] Not pro cedure are in S/P Anticoagulant the results section. CREATININE WITH EGFR, Routine 10/30/2020 5:53 Medication Thera py Results for this S/P PM CDT Computer Systems Software Engineer Not procedure are in Anticoagulant the results section. documented in this encounter Results Creatinine with Estimated GFR (10/30/2020 5:53 PM CDT) P athologist Signature Creatinine 0.89 0.59 - 10/30/2020 CNFL 1.04 mg/dL 6:20 PM CDT eGFR-Black/Afric 89 >=60 10/30/2020 CNFL an Senegalese mL/min/BSA 6:20 PM CDT Comment: ----ADDITIONAL INFORMATION---- [...] LAB BLOOD ADD-ON Performing Organization Address [facility] Phon e Number [address] [address] [place] [address] System in [place] [address] [address] AST (Aspartate Aminotransferase) (10/30/2020 5:53 PM CDT) Patholo gist Method Time Signature Aspartate 28 8 - 43 10/30/2020 CNFL Aminotransferase U/L 6:20 PM CDT (AST), P Specimen Anatomical Collection Method Collection Time Receive d Time (Source) Location / / Volume Laterality Blood (Blood, 10/30/2020 5:53 PM 10/31/19 5:58 Venous) CDT PM CDT Velma Munson APRN, Karlene.N.P. LAB BLOOD ADD-ON Performing Organization Address [facility] Phon e Number [place] [address] [place] [address] [place] [address] System in [place] (ABNORMAL) CBC with Differential, Blood (10/30/2020 5:53 PM CDT) [facility] gist Method Time Signature Hemoglobin 14.0 11.6 - [...] Organization Address City/State/ZIP Code Phon e Number [facility]- [address] [place] [address] [place] [address] System in [place] [address] [place] [address] documented in this encounter Visit Diagnoses Diagnosis Medication Therapy Senior Care Not Anticoa gulant documented in this encounter Additional Health Concerns Assessment Noted Time PHQ-9 Depression Total Score: 15 04/21/2018 1:00 PM CS T documented as of this encounter Care Teams Skip Hoist Operator Relationship Specialty Start Date End Date Elsewhere, Pcp PCP - General Internal Medicine 10/22/19 documented as of this encounter
--- OUTSIDE RECORDS SUMMARY | 2022-02-16 15:01 | XMS_ITS | Encounter Summary ---
:1970 Author Organization [facility] Address [address] [place] [address] Care Team Providers Name Role Phone Elsewhere, Pcp Primary Care Provider Unavailable Reason for Visit Outpatient (Routine) - Closed Specialty Diagnoses / Procedures Referred By Contact Refer red To Contact Rheumatology Velma Munson APRN, [place] [facility] C.N.P. [address] [place] [phone] Referral ID Status Reason Start Date Expiration Date Visits Requ ested Visits Authorized [id number] Closed 10/02/2020 10/02/2021 1 1 Encounter Details Date Type Department Care Team Description 10/31/2020 Virtual Visit Division of Velma Munson APRN, C.N.P. [address] [place] [phone] Arthritis Rheumatoid [facility]. [address] [place] [phone] ([facility]) [place], [place] [address] [place] [phone] Social History Tobacco Use Types Packs/Day Years [...] More than 4 times per year 11/16/2021 restoration services? Do you belong to any clubs or No 11/16/2021 organizations such as islam groups, unions, Inkblazers or athletic groups, or school groups? How [...] documented as of this encounter Care Teams Product Merchandiser Relationship Specialty Start Date End Date Elsewhere, Pcp PCP - General Internal Medicine 10/22/19 documented as of this encounter
--- OUTSIDE RECORDS SUMMARY | 2022-02-16 15:01 | XMS_ITS | Encounter Summary ---
:1970 Author Organization [facility] Address [address] [place] [address] Care Team Providers Name Role Phone Elsewhere, Pcp Primary Care Provider Unavailable Reason for Referral Outpatient (Routine) - Closed Specialty Diagnoses / Procedures Referred By Contact Refer red To Contact Diagnoses Julián Carpio M.D. [facility] Procedures Breath test, Hydrogen, Lactose - Lactase deficiency [address] [place], [place] [phone] Referral ID Status Reason Start Date Expiration Date Visits Requ ested Visits Authorized [id number] Closed 08/19/2020 08/19/2021 1 1 Reason for Visit Outpatient (Routine) - Closed Specialty Diagnoses / Procedures Referred By Contact Refer red To Contact Diagnoses Julián Carpio M.D. [facility] Procedures Breath test, Hydrogen, Lactose - Lactase deficiency [address] [place] [address] Referral ID Status Reason Start Date Expiration Date Visits Requ ested Visits Authorized [id number] Closed 08/19/2020 08/19/2021 1 1 Encounter Details Date Type Department Care Team Description 09/25/2020 Hospital Encounter Division of Gastroenterology Julián Freeman in [facility] kristin Narayan M.D. [address] [facility] [address] [place] [address] [place], [place] [phone] Social History Tobacco Use Types Packs/Day Years [...] base line). 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 ?? Symptoms: None ?? Elevated baseline hydrogen and/or methan e may reflect dietary non-compliance (e.g. consumption of slowly-digesting, f iber containing foods the day before the test) or other causes, such as sever e constipation. Alejo Butcher ([id number]) ?? ----PREVIOUSLY REPORTED ---- Negative breath test for lactose malabsorption (less than or equal to 19 PPM rise in breath hydrogen compared to baseline). 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 ?Symptoms: None ?? Elevated baseline hydrogen and/or methan e may reflect dietary non-compliance (e.g. consumption of slowly-digesting, f iber containing foods the day before the test) or other causes. Alejo Butcher ([id number]) ?(Reported 2020 16:11) Specimen Anatomical Collection Method Collection Time Receive d Time (Source) Location / / Volume Laterality Breath 09/25/2020 2:08 PM 2:08 CDT PM CDT Julián Edouard M.D. LAB BODY FLUIDS AND STOOLS O RDERABLES Performing Organization Address City/State/ZIP Code Phon e Number [facility] - [address] [place], [place] [address] [facility] [place] [address] Laboratories-[facility] [address] documented in this encounter Visit Diagnoses Diagnosis Flatulence documented in this encounter Additional Health Concerns Infection Onset Date Last Indicated Resolved Time COVID19 Pending 09/19/2020 09/26/2020 09/27/2020 5:53 AM CDT Assessment Noted Time PHQ-9 Depression Total Score: 15 04/21/2018 1:00 PM CS T documented as of this encounter Care Teams Beauty Culturist Apprentice Relationship Specialty Start Date End Date Elsewhere, Pcp PCP - General Internal Medicine 10/22/19 documented as of this encounter
--- OUTSIDE RECORDS SUMMARY | 2022-02-16 15:01 | XMS_ITS | Encounter Summary ---
:1970 Author Organization [facility] Address [address] [place] [address] Care Team Providers Name Role Phone Elsewhere, Pcp Primary Care Provider Unavailable Encounter Details Date Type Department Care Team Description 11/15/2020 Hospital Encounter Department of Chris Edouard dural Lab Exam; Laboratory Medicine Julián Narayan M.D. Negative COVID-19 Test (Contact With And (Suspected) Exposure To COVID-19) in [place] [address] [address] [place], [place] [address] [place] [phone] [place], [place] [phone] (Work) [phone] Social History Tobacco Use Types Packs/Day Years [...] to pay for the very basics like [employer] hat hard 11/16/2021 food, housing, medical care, [...] tabletIndications: total) by mouth Arthritis Inflammatory daily. ([facility]) hydrOXYchloroQUINE Take 1-2 tablets 135 tablet 3 05/27/2020 06/01/2021 (PLAQUENIL) 200 mg (200-400 mg total) tabletIndications: by mouth daily. Arthritis Inflammatory Take 2 tab on even (HCC) days, 1 on odd. methotrexate 25 mg/mL Inject 0.8 mL (20 10 mL 1 021 11/27/2020 injectionIndications: mg total) under the Arthritis Inflammatory skin once a week. ([facility]) [id number] Drink 1st portion 1 box(es) 0 10/07/20202021 [id number] of prep at 6 PM the (MOVIPREP) [...] week. For use with weekly Methotrexate injections triamcinolone (KENALOG) Apply 1 application 30 g [...] RNA, V Asymptomatic (11/15/2020 11:18 AM CDT) [facility] Method Time Signature SARS-CoV-2 Swab, 11/15/2020 [...] pe rformed using the Aptima SARS-CoV-2 assay ([employer] on the [employer]s tem under emergency use authorization (EUA) by the U.S. Food and Drug Administ ration. Fact sheets for this EUA assay can be fo und at the following links: For Healthcare Providers: https://www.fd a.gov/media/975561/download For Patients: https://www.fda.gov/media/ 055938/download Specimen Anatomical Collection Method Collection Time Receive d Time (Source) Location / / Volume Laterality Varies 11/15/2020 11:18 11/15/2020 4:01 (Nasopharynx) AM CDT PM CDT Julián Edouard M.D. LAB MICROBIOLOGY - GENERAL O RDERABLES Performing Organization Address City/State/ZIP Code Phon e Number [facility]- [address] [place] [phone] [place] [address] [place] [address] System in [address] documented in this encounter Visit Diagnoses Diagnosis Preprocedural Lab Exam Negative COVID-19 Test (Contact With And (Suspected) Exposure To COVID-19) documented in this encounter Additional Health Concerns Infection Onset Date Last Indicated Resolved Time COVID19 Pending 11/15/2020 11/15/2020 11/15/2020 10:25 PM CDT Assessment Noted Time PHQ-9 Depression Total Score: 15 04/21/2018 1:00 PM CS T documented as of this encounter Care Teams Die Turner Relationship Specialty Start Date End Date Elsewhere, Pcp PCP - General Internal Medicine 10/22/19 documented as of this encounter
--- OUTSIDE RECORDS SUMMARY | 2022-02-16 15:01 | XMS_ITS | Encounter Summary ---
:1970 Author Organization [facility] Address [address] [place] [address] Care Team Providers Name Role Phone Elsewhere, Pcp Primary Care Provider Unavailable Reason for Referral Outpatient (Routine) - Closed Specialty Diagnoses / Procedures Referred By Contact Refer red To Contact Diagnoses Diarrhea Persistent Unexplained Julián Edouard M.D. [facility] Procedures Colonoscopy [address] [place], [place] [address] Referral ID Status Reason Start Date Expiration Date Visits Requ ested Visits Authorized [id number] Closed 10/07/2020 10/07/2021 1 1 Encounter Details Date Type Department Care Team Description 10/07/2020 Orders Only Division of Sb Edouard Persis tent Gastroenterology in Julián Narayan M.D. Unexplained (Primary [place], [place] [address] [facility]) [address] [place] [phone] Social History Tobacco Use Types Packs/Day Years [...] 11/16/2021 organizations such as yazdanism groups, unions, fraWISErg or athletic groups, or school groups? How [...] as of this encounter Care Teams Home Help Aide Relationship Specialty Start Date End Date Elsewhere, Pcp PCP - General Internal Medicine 10/22/19 documented as of this encounter
--- OUTSIDE RECORDS SUMMARY | 2022-02-16 15:01 | XMS_ITS | Encounter Summary ---
:1970 Author Organization [facility] Address [address] [place] [address] Care Team Providers Name Role Phone Elsewhere, Pcp Primary Care Provider Unavailable Reason for Visit Reason Comments Patient Education Methotrexate Adjustment Encounter Details Date Type Department Care Team Description 10/09/2020 Virtual Visit Division of Velma Munson APRN, C.N.P. [address] [place] [phone] Arthritis Rheumatoid Rheumatology in JacobyIrene mueller, RLennoxNLennox [address] [place] [address] ([facility]) [place], [place] [address] [place] [phone] Social History Tobacco Use Types Packs/Day Years [...] to pay for the very basics like [employer] hat hard 11/16/2021 food, housing, medical care, [...] diagnosis of rheumatoid arthritis. Velma Munson APRN, ELECTRICAL PROSPECTING OPERATOR requested nursing assistance with medication education. Reviewed education on methotrexate adjustment program with the patient. Discussed purpose, administration, lab monitoring, and when to contact your provider. All questions were answered. Patient enrolled in the Methotrexate Adjustment Protocol per provider request. [facility] Follow-up with nursing via CALL in in 4 weeks. documented in this encounter Plan of Treatment Not on filedocumented as of this encounter Visit Diagnoses Diagnosis Arthritis Rheumatoid (HCC) documented in this encounter Additional Health Concerns Assessment Noted Time PHQ-9 Depression Total Score: 15 04/21/2018 1:00 PM CS T documented as of this encounter Care Teams Seconds Handler Relationship Specialty Start Date End Date Elsewhere, Pcp PCP - General Internal Medicine 10/22/19 documented as of this encounter
--- OUTSIDE RECORDS SUMMARY | 2022-02-16 15:01 | XMS_ITS | Encounter Summary ---
:1970 Author Organization [facility] Address [address] [place] [address] Care Team Providers Name Role Phone Elsewhere, Pcp Primary Care Provider Unavailable Encounter Details Date Type Department Care Team Description 11/11/2020 Orders Only Pharmacy Prior Auth RO Elsewhere, Pcp [phone] Social History Tobacco Use Types Packs/Day Years [...] documented as of this encounter Care Teams Productivity Engineer Relationship Specialty Start Date End Date Elsewhere, Pcp PCP - General Internal Medicine 10/22/19 documented as of this encounter
--- OUTSIDE RECORDS SUMMARY | 2022-02-16 15:01 | XMS_ITS | Encounter Summary ---
:1970 Author Organization [facility] Address [address] [place] [address] Care Team Providers Name Role Phone Elsewhere, Pcp Primary Care Provider Unavailable Reason for Visit Reason Comments Labs Only Encounter Details Date Type Department Care Team Description 10/01/2020 Documentation Division of Rheumatology Monico Gomes, Labs Only in [facility] kristin R.N. [address] [facility] [address] [place] [address] [place], [place] [phone] Social History Tobacco Use Types Packs/Day Years [...] CDT eGFR-Black/Afric 89 >=60 10/30/2020 CNFL an Swedish mL/min/BSA 6:20 PM CDT Comment: ----ADDITIONAL INFORMATION---- [...] C.N.P. LAB BLOOD ADD-ON Performing Organization Address [facility] [address]/[facility] Code Phon e Number [address] [address] [place] [address] System [address] AST (Aspartate Aminotransferase) (10/30/2020 5:53 PM CDT) [facility] Method Time Signature Aspartate 28 8 - 43 10/30/2020 CNFL Aminotransferase U/L 6:20 PM CDT (AST), P Specimen Anatomical Collection Method Collection Time Receive d Time (Source) Location / / Volume Laterality Blood (Blood, 10/30/2020 5:53 PM 10/31/19 5:58 Venous) CDT PM CDT Velma Munson APRN, Karlene.N.P. LAB BLOOD ADD-ON Performing Organization Address [facility] [address]/[facility] Phon e Number [address] [address] [place] [address] System [address] (ABNORMAL) CBC with Differential, Blood (10/30/2020 5:53 PM CDT) [facility] [employer] Method Time Signature Hemoglobin 14.0 11.6 - [...] C.N.P. LAB BLOOD ADD-ON Performing Organization Address City/State/[facility] Phon e Number [facility]- [address] [place] [address] [place] [address] System in [address] documented in this encounter Visit Diagnoses Diagnosis Medication Therapy Senior Care Not Anticoa gulant - Primary documented in this encounter Additional Health Concerns Assessment Noted Time PHQ-9 Depression Total Score: 15 04/21/2018 1:00 PM CS T documented as of this encounter Care Teams Community Cultural Development Officer Relationship Specialty Start Date End Date Elsewhere, Pcp PCP - General Internal Medicine 10/22/19 documented as of this encounter
--- OUTSIDE RECORDS SUMMARY | 2022-02-16 15:02 | XMS_ITS | Encounter Summary ---
:1970 Author Organization [facility] Address [address] [place] [address] Care Team Providers Name Role Phone Elsewhere, Pcp Primary Care Provider Unavailable Reason for Referral Outpatient (Routine) - Closed Specialty Diagnoses / Referred By Referred To Cont act Procedures Contact Gastroenterology and Julián Edouard [facility] Hepatology Alex [address] [place] [address] Referral ID Status Reason Start Date Expiration Date Visits Requ ested Visits Authorized [id number] Closed 08/19/2020 08/19/2021 1 1 Outpatient (Routine) - Closed Specialty Diagnoses / Procedures Referred By Contact Refer red To Contact Diagnoses Flatulence Julián Edouard M.D. [facility] Procedures Breath test, Hydrogen, Lactose - Lactase deficiency [address] [place], [place] [address] Referral ID Status Reason Start Date Expiration Date Visits Requ ested Visits Authorized [id number] Closed 08/19/2020 08/19/2021 1 1 Outpatient (Routine) - Closed Specialty Diagnoses / Procedures Referred By Contact Refer red To Contact Diagnoses Flatulence Julián Edouard M.D. [facility] Procedures Breath test, Hydrogen, Glucose - Bacterial overgrowth [address] [place], [place] [address] Referral ID Status Reason Start Date Expiration Date Visits Requ ested Visits Authorized [id number] Closed 08/19/2020 08/19/2021 1 1 Outpatient (Routine) - Closed Specialty Diagnoses / Procedures Referred By Contact Refer red To Contact Diagnoses Flatulence Julián Edouard M.D. [facility] Procedures Breath test, Hydrogen, Fructose - Fructose malabsorption [address] [place] [address] Referral ID Status Reason Start Date Expiration Date Visits Requ ested Visits Authorized [id number] Closed 08/19/2020 08/19/2021 1 1 Outpatient (Routine) - Closed Specialty Diagnoses / Procedures Referred By Contact Refer red To Contact Diagnoses Gastroesophageal Reflux Disease Julián Edouard M.D. [facility] Procedures EGD (EsophagoGastroDuodenoscopy) Restricted [address] [place], [place] [address] Referral ID Status Reason Start Date Expiration Date Visits Requ ested Visits Authorized [id number] Closed 08/19/2020 08/19/2021 1 1 Reason for Visit Reason Comments Diarrhea GERD Outpatient (Routine) - Closed Specialty Diagnoses / Referred By Referred To Cont act Procedures Contact Gastroenterology and Diagnoses Diarrhea Gastroesophageal Reflux Disease Flatulence Velma Munson, [facility] Hepatology TREE TRIMMING SUPERVISOR, C.N.P. [address] [place] [address] Referral ID Status Reason Start Date Expiration Date Visits V isits Requested Authorized [id number] Closed Specialty 05/27/2020 05/27/2021 1 1 Services Required Encounter Details Date Type Department Care Team Description 08/19/2020 Comprehensive Visit Division of Sb Edouard ; Gastroenterology in Robert Wildees ophageal Reflux Disease; [place], [place] Alex Flatulence [address] [facility] 200 [facility] [address] [place] [address] Social History Tobacco Use Types Packs/Day Years [...] More than 4 times per year 11/16/2021 restorationist services? Do you belong to any clubs [...] AM CDT SUBJECTIVE REASON FOR CONSULT Mrs. iDaz is referred for diarrhea, gastroesophageal reflux disease, [...] ristol type 3 and 7 with occasional Aladdin type 1. She typically has a bowel [...] it is reasonable to proceed with a Ylnn capsule since she is not taking a [...] Julián Edouard M.D. CT CT Job ID: [id number] documented in this encounter Plan of Treatment [...] Schedule Diagnoses Gastroenterology and Outpatient Routine 1 [facility] Hepatology office visit Referral edyta english (clinic) 08/19/2020 unti l 08/20/2023 documented as of this encounter Visit Diagnoses Diagnosis Diarrhea Gastroesophageal Reflux Disease Flatulence documented in this encounter Additional Health Concerns Assessment Noted Time PHQ-9 Depression Total Score: 15 04/21/2018 1:00 PM CS T documented as of this encounter Care Teams Instantizer Operator Relationship Specialty Start Date End Date Elsewhere, Pcp PCP - General Internal Medicine 10/22/19 documented as of this encounter
--- OUTSIDE RECORDS SUMMARY | 2022-02-16 15:02 | XMS_ITS | Encounter Summary ---
:1970 Author Organization [facility] Address [address] [place] [address] Care Team Providers Name Role Phone Elsewhere, Pcp Primary Care Provider Unavailable Reason for Referral Specialty Diagnoses / Procedures Referred By Contact Refer red To Contact Evangelista Darling M.D. [facility] [address] [place] [address] Referral ID Status Reason Start Date Expiration Date Visits Requ ested Visits Authorized TUBE CONVERSION TECHNICIAN Encounter Details Date Type Department Care Team Description 04/17/2020 Orders Only [facility] Evangelista Darling Jr., M.D. [address] [facility] [address] [place] [phone] (Wo rk) Social History [...] documented as of this encounter Care Teams Registered Nursing Professor Relationship Specialty Start Date End Date Elsewhere, Pcp PCP - General Internal Medicine 10/22/19 documented as of this encounter
--- OUTSIDE RECORDS SUMMARY | 2022-02-16 15:02 | XMS_ITS | Encounter Summary ---
:1970 Author Organization [facility] Address [address] [place] [address] Care Team Providers Name Role Phone Elsewhere, Pcp Primary Care Provider Unavailable Encounter Details Date Type Department Care Team Description 05/27/2020 Clinical Communication Division of Tamir Butcher Gastroenterology césar Narayan M.D. [place], [place] [address] [facility] [address] [place] [phone] [phone] Social History Tobacco Use Types Packs/Day Years [...] documented as of this encounter Care Teams Vp Purchasing Relationship Specialty Start Date End Date Elsewhere, Pcp PCP - General Internal Medicine 10/22/19 documented as of this encounter
--- OUTSIDE RECORDS SUMMARY | 2022-02-16 15:02 | XMS_ITS | Encounter Summary ---
:1970 Author Organization [facility] Address [address] [place] [address] Care Team Providers Name Role Phone Elsewhere, Pcp Primary Care Provider Unavailable Reason for Referral Specialty Diagnoses / Procedures Referred By Contact Refer red To Contact Velma Munson A PRN, C.N.P. [facility] [address] [place] [phone] Referral ID Status Reason Start Date Expiration Date Visits Requ ested Visits Authorized Reason for Visit Outpatient (Routine) - Closed Specialty Diagnoses / Procedures Referred By Contact Refer joslyn To Contact Rheumatology Velma Munson APRN, [place] C.N.P. [address] [place] [phone] Referral ID Status Reason Start Date Expiration Date Visits Requ ested Visits Authorized [id number] Closed 05/28/2020 05/28/2021 1 1 Encounter Details Date Type Department Care Team Description 07/17/2020 Office Visit Division of Velma Munson Arthritis In [facility] ([facility]) (Primary Dx); Rheumatology in LONG Schwartz, C.N.P. High Risk Medication [address] [place] [phone] Social History Tobacco Use Types Packs/Day Years [...] or relatives? How often do you attend druze or More than 4 times per year 11/16/2021 latter-day services? Do you belong to any clubs or No 11/16/2021 organizations such as druze groups, unions, fraternal or athletic groups, or [...] Progress Notes Velma Munson APRN, JorgeNLennoxP. - 07/17/2020 2:45 PM CDT Images from [...] but on a reevaluation later by a child care provider the diagnosis of mixed connective tissue disease [...] with mixed connective tissue disease. 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 She had [...] 0 Patient global assessment (0-100) 12 12 Lumber Buyer global assessment (0-100) 10 20 ESR (mm/h) 10 13 CRP (mg/L) 3.3 5 Disease Activity Score 28 using ESR ([id number]) 1.78 2.52 Disease Activity Score 28 using CRP ([id number]) 1.65 2.33 Clinical Disease Activity Index (CDAI) [...] Name Type Priority Associated Diagnoses Order S [facility] Rheumatology - Outpatient Referral Routine Arthritis Expect ed: Education visit Inflammatory (HCC) 2020 (clinic) (Approximate), Expires: 07/18/2023 documented as of this encounter Results Creatinine with Estimated GFR (08/18/2020 3:39 PM CDT) athologist Signature Creatinine 0.76 0.59 - 08/18/2020 [facility] 1.04 mg/dL 4:00 PM CDT eGFR-Black/Afric >90 >=60 08/18/2020 [facility] an Cook Islander mL/min/BSA 4:00 PM CDT Comment: ----ADDITIONAL INFORMATION---- [...] PM 08/19/19 3:40 Venous) CDT PM CDT Jorge Polo APRNNLennoxP. LAB BLOOD ADD-ON Performing Organization Address City/State/ZIP Code Phon e Number [facility]- [address] [facility] [place] [address] [place] [address] System in [place] [address] [place] [address] AST (Aspartate Aminotransferase) (08/18/2020 3:39 PM CDT) [facility] Method Time Signature Aspartate 19 8 - 43 08/18/2020 [facility] Aminotransferase U/L 4:00 PM CDT (AST), P Specimen Anatomical Collection Method Collection Time Receive d Time (Source) Location / / Volume Laterality Blood (Blood, 08/18/2020 3:39 PM 08/19/19 3:40 Venous) CDT PM CDT Jorge Polo APRNN.P. LAB BLOOD ADD-ON Performing Organization Address City/[facility] Code Phon e Number [facility]- [address] [facility], [place] [address] [place] [address] System in [place] (ABNORMAL) CBC with Differential, Blood (08/18/2020 3:38 PM CDT) [facility] Method Time Signature Hemoglobin 14.7 11.6 [...] 08/19/19 21 3:40 Venous) CDT PM CDT Jorge Polo APRNNLennoxPLennox LAB BLOOD ADD-ON Performing Organization Address City/State/ZIP Code Phon e Number [facility]- [address] [place], [place] [address] [place] [address] System in [place] [address] documented in this encounter Visit Diagnoses Diagnosis Arthritis Inflammatory (HCC) - Primary High Risk Medication documented in this encounter Additional Health Concerns Assessment Noted Time PHQ-9 Depression Total Score: 15 04/21/2018 1:00 PM CS T documented as of this encounter Care Teams Nuclear Reactor Operator Relationship Specialty Start Date End Date Elsewhere, Pcp PCP - General Internal Medicine 10/22/19 documented as of this encounter
--- OUTSIDE RECORDS SUMMARY | 2022-02-16 15:02 | XMS_ITS | Encounter Summary ---
:1970 Author Organization [facility] Address [address] [place] [address] Care Team Providers Name Role Phone Elsewhere, Pcp Primary Care Provider Unavailable Reason for Visit Reason Comments Lab Monitoring 1st delay Encounter Details Date Type Department Care Team Description 09/17/2020 Documentation Division of Velma Munson Lab Monitor ing (1st Rheumatology in [place], FACILITY MANAGER HISTOLOGY, C.N.P. delay) [place], [place] [address] [facility] [address] [place] [address] [phone] Social History Tobacco Use Types Packs/Day Years [...] documented as of this encounter Care Teams Behavioral Health Professional Relationship Specialty Start Date End Date Elsewhere, Pcp PCP - General Internal Medicine 10/22/19 documented as of this encounter
--- OUTSIDE RECORDS SUMMARY | 2022-02-16 15:02 | XMS_ITS | Encounter Summary ---
:1970 Author Organization [facility] Address [address] [place] [address] Care Team Providers Name Role Phone Elsewhere, Pcp Primary Care Provider Unavailable Reason for Referral Specialty Diagnoses / Procedures Referred By Contact Refer red To Contact [address] [phone] Referral ID Status Reason Start Date Expiration Date Visits Requ ested Visits Authorized PROFESSIONALS Encounter Details Date Type Department Care Team Description 04/24/2020 Immunization Department of [facility] Evangelista Darling For COVID-19 Medicine, Alfredo Soler M.D. Vaccine Immunization [facility], in [address] Sarath chu (Primary Dx) [address] [phone] [place], [place] (Work) [address] [phone] Social History Tobacco Use Types Packs/Day Years [...] documented as of this encounter Care Teams Golf Club Weigher Relationship Specialty Start Date End Date Elsewhere, Pcp PCP - General Internal Medicine 10/22/19 documented as of this encounter
--- OUTSIDE RECORDS SUMMARY | 2022-02-16 15:02 | XMS_ITS | Encounter Summary ---
:1970 Author Organization [facility] Address [address] [place] [address] Care Team Providers Name Role Phone Elsewhere, Pcp Primary Care Provider Unavailable Encounter Details Date Type Department Care Team Description 07/16/2020 Hospital Encounter Department of Velma Munson Laboratory Medicine Lana, LONG C.N .PLennox Inflammatory (HCC) in [place], [address] [place] [address] 701 [facility] [address] [place], [place] [phone] [address] (Work) [phone] Social History Tobacco Use Types Packs/Day Years [...] AST (Aspartate Aminotransferase) (07/16/2020 12:42 PM CDT) [facility] Method Time Signature Aspartate 25 8 - 43 07/16/2020 [facility] Aminotransferase U/L 1:33 PM CDT (AST), P Specimen Anatomical Collection Method Collection Time Receive d Time (Source) Location / / Volume Laterality Blood (Blood, 07/16/2020 12:42 07/16/2020 1:08 Venous) PM CDT PM CDT Jorge Polo APRNN.P. LAB BLOOD ADD-ON Performing Organization Address City/State/ZIP Code Phon e Number [facility]- [address] [place] [address] [place] [address] System in [place] [address] [place] [address] Creatinine with Estimated GFR (07/16/2020 12:42 PM CDT) athologist Signature Creatinine 0.84 0.59 - 07/16/2020 [facility] 1.04 mg/dL 1:33 PM CDT eGFR-Black/Afric >90 >=60 07/16/2020 [facility] an Turkish mL/min/BSA 1:33 PM CDT Comment: ----ADDITIONAL INFORMATION---- [...] Organization Address City/State/ZIP Code Phon e Number [place] [address] [place], [place] [address] [place] [address] System in [address] CRP (C-Reactive Protein) (07/16/2020 12:42 PM CDT) athologist Signature C-Reactive 5.0 <=8.0 mg/L 07/16/2020 [facility] Protein (CRP), 1:33 PM CDT P Specimen Anatomical Collection Method Collection Time Receive d Time (Source) Location / / Volume Laterality Blood (Blood, 07/16/2020 12:42 07/16/2020 1:08 Venous) PM CDT PM CDT Velma Munson APRN, C.N.P. LAB BLOOD ADD-ON Performing Organization Address City/State/ZIP Code Phon e Number [facility]- [facility] [place] [place] [address] [facility] [place] [address] System in [place] 701 [facility] Sedimentation Rate (07/16/2020 12:42 PM CDT) Analysis [...] Organization Address City/State/ZIP Code Phon e Number [facility]- [address] [facility] [place] [address] [facility] [place] [address] System in [place] CBC with Differential, Blood (07/16/2020 12:42 PM [...] PM CDT PM CDT Velma Munson APRN C.N.P. LAB BLOOD ADD-ON Performing Organization Address City/State/ZIP Code Phon e Number [facility]- [facility] Andie [address] [place], [place] [address] [place] [address] System in [place] [address] documented in this encounter Visit Diagnoses Diagnosis Arthritis Inflammatory (HCC) documented in this encounter Additional Health Concerns Assessment Noted Time PHQ-9 Depression Total Score: 15 04/21/2018 1:00 PM CS T documented as of this encounter Care Teams Manager Port Relationship Specialty Start Date End Date Elsewhere, Pcp PCP - General Internal Medicine 10/22/19 documented as of this encounter
--- OUTSIDE RECORDS SUMMARY | 2022-02-16 15:02 | XMS_ITS | Encounter Summary ---
:1970 Author Organization [facility] Address [address] [place] [address] Care Team Providers Name Role Phone Elsewhere, Pcp Primary Care Provider Unavailable Reason for Visit Reason Comments Swelling, pain, knees, feet, hands, P1 Encounter Details Date Type Department Care Team Description 07/28/2020 Clinical Division of Velma Munson pa in, Communication Rheumatology in [place], AIRPLANE P[employer]ERCIAL, C.N.P. knees, feet, [place], [place] [address] [facility] hands, P1 [address] [place] [address] [phone] Social History Tobacco Use Types Packs/Day Years [...] clinical judgement Telephone Encounter - Mindy Blas - 07/28/2020 9:38 AM CDT Caller/authorization: Patient [...] surgery until then. Her phone number is [phone]. documented in this encounter Plan of Treatment Not on filedocumented as of this encounter Visit Diagnoses Not on filedocumented in this encounter Additional Health Concerns Assessment Noted Time PHQ-9 Depression Total Score: 15 04/21/2018 1:00 PM CS T documented as of this encounter Care Teams Tonsorial Artist Relationship Specialty Start Date End Date Elsewhere, Pcp PCP - General Internal Medicine 10/22/19 documented as of this encounter
--- OUTSIDE RECORDS SUMMARY | 2022-02-16 15:02 | XMS_ITS | Encounter Summary ---
:1970 Author Organization [facility] Address [address] [place] [address] Care Team Providers Name Role Phone Elsewhere, Pcp Primary Care Provider Unavailable Reason for Visit Reason Comments Intake Assessment Encounter Details Date Type Department Care Team Description 05/26/2020 Clinical Division of Velma Munson Intake Stanley hawkins Communication Rheumatology in [place], SECRETARY TO BOARD OF COMMISSIONERS, C.N.P. [place], [place] [address] [facility] [address] [place] [address] [phone] Social History Tobacco Use Types Packs/Day Years [...] or relatives? How often do you attend scientologist or More than 4 times per year 11/16/2021 jehovah's witness services? Do you belong to any clubs or No 11/16/2021 organizations such as scientologist groups, unions, fraternal or athletic groups, or [...] documented as of this encounter Care Teams Salesperson Burial Plots Relationship Specialty Start Date End Date Elsewhere, Pcp PCP - General Internal Medicine 10/22/19 documented as of this encounter
--- OUTSIDE RECORDS SUMMARY | 2022-02-16 15:02 | XMS_ITS | Encounter Summary ---
:1970 Author Organization [facility] Address [address] [place] [address] Care Team Providers Name Role Phone Elsewhere, Pcp Primary Care Provider Unavailable Encounter Details Date Type Department Care Team Description 09/24/2020 Hospital Encounter Department of Velma Munson ation Therapy Laboratory Medicine LONG Schwartz, C.N .P. Detention Not and Pathology, [address] [place] [address] [facility] [address] [place] [phone] [place] [address] (Work) [place], [place] [phone] [address] (Fax) [phone] Social History Tobacco Use Types Packs/Day Years [...] Th erapy Results for this PM CDT Detention Not procedure are in Anticoagulant the results section. ASPARTATE Routine 09/24/2020 1:57 Medication Therapy Result s for this AMINOTRANSFERASE (AST), PM CDT Detention Not pro cedure are in S/P Anticoagulant the results section. CREATININE WITH EGFR, Routine 09/24/2020 1:57 Medication Thera py Results for this S/P PM CDT Detention Not procedure are in Anticoagulant the results section. documented in this encounter Results Creatinine with Estimated GFR (09/24/2020 1:57 PM CDT) P athologist Signature Creatinine 0.81 0.59 - 09/24/2020 DTL 1.04 mg/dL 3:07 PM CDT eGFR-Non 86 >=60 09/24/2020 DTL Black/ mL/min/BSA 3:07 PM CDT Chinese Comment: ----ADDITIONAL INFORMATION---- Estimated GFR calculated using the 2009 CKD_EPI creatinine equation. eGFR-Black/ >90 >=60 mL/min/BSA 2020 3:07 PM CDT DTL Comment: ----ADDITIONAL INFORMATION---- Estimated GFR calculated using the 2009 CKD_EPI creatinine equation. Specimen Anatomical Collection Method Collection Time Receive d Time (Source) Location / / Volume Laterality Blood (Blood, 09/24/2020 1:57 PM 09/25/19 21 2:21 Venous) CDT PM CDT Karlene Polo APRN.N.P. LAB BLOOD ADD-ON Performing Organization Address City/[facility] Phon e Number [facility] - [address] AST (Aspartate Aminotransferase) (09/24/2020 1:57 PM CDT) [facility] Method Time Signature Aspartate 17 8 - 43 09/24/2020 DTL Aminotransferase U/L 3:07 PM CDT (AST), S Specimen Anatomical Collection Method Collection Time Receive d Time (Source) Location / / Volume Laterality Blood (Blood, 09/24/2020 1:57 PM 09/25/19 21 2:21 Venous) CDT PM CDT Velma Munson APRN, C.N.P. LAB BLOOD ADD-ON Performing Organization Address City/[facility] Phon e Number [facility] - [address] [place], [place] [address] [place] [address] (ABNORMAL) CBC with Differential, Blood (09/24/2020 1:57 PM CDT) [facility] Method Time Signature Hemoglobin 14.6 11.6 [...] Organization Address City/State/ZIP Code Phon e Number [facility] - [address] [place], [place] [address] [facility] [address] Laboratories-[facility] [address] documented in this encounter Visit Diagnoses Diagnosis Medication Therapy Detention Not Anticoa gulant documented in this encounter Additional Health Concerns Infection Onset Date Last Indicated Resolved Time COVID19 Pending 09/19/2020 09/26/2020 09/27/2020 5:53 AM CDT Assessment Noted Time PHQ-9 Depression Total Score: 15 04/21/2018 1:00 PM CS T documented as of this encounter Care Teams Foley Artist Relationship Specialty Start Date End Date Elsewhere, Pcp PCP - General Internal Medicine 10/22/19 documented as of this encounter
--- OUTSIDE RECORDS SUMMARY | 2022-02-16 15:02 | XMS_ITS | Encounter Summary ---
:1970 Author Organization [facility] [place] [facility] Address [address] [place] [address] Care Team Providers Name Role Phone Elsewhere, Pcp Primary Care Provider Unavailable Encounter Details Date Type Department Care Team Description 07/17/2020 Education Division of Velma Munson APRN, C.N.P. [address] [place] [phone] Arthritis Inflammatory Rheumatology in [place], [place]ennoxN. [address] [place] [address] ([facility]) [place], [place] [address] [place] [address] Social History Tobacco Use Types Packs/Day Years [...] to pay for the very basics like [employer] hat hard 11/16/2021 food, housing, medical care, [...] has a diagnosis of inflammatory Arthritis. Velma Musnon, WILDLIFE MANAGER, CONSERVATION OF RESOURCES COMMISSIONER requestednursing assistance with medication education. Reviewed education on methotrexate with the patient. Discussed purpose, administration, precautions,risks, side effects, lab monitoring, and when to contact your provider. Subcutaneous administration was demonstrated and patient was able to teach back. All questions were answered. Provider would likepatient enrolled in our Medication monitoring system. [facility] Patient plans to start her Methotrexate this Tuesday07/18/2020. documented in this encounter Plan of Treatment Not on filedocumented as of this encounter Visit Diagnoses Diagnosis Arthritis Inflammatory (HCC) documented in this encounter Additional Health Concerns Assessment Noted Time PHQ-9 Depression Total Score: 15 04/21/2018 1:00 PM CS T documented as of this encounter Care Teams Soaker Helper Relationship Specialty Start Date End Date Elsewhere, Pcp PCP - General Internal Medicine 10/22/19 documented as of this encounter
--- OUTSIDE RECORDS SUMMARY | 2022-02-16 15:02 | XMS_ITS | Encounter Summary ---
:1970 Author Organization [facility] Address [address] [place] [address] Care Team Providers Name Role Phone Elsewhere, Pcp Primary Care Provider Unavailable Encounter Details Date Type Department Care Team Description 05/21/2020 Hospital Encounter Department of Velma Munson Laboratory Medicine L, LONG, C.N .PLennox Inflammatory (HCC) in [place] [address] [facility] [phone] [place], [place] (Work) [phone] Social History Tobacco Use [...] 7:43 Arthritis Res ults for this AM ANESTHESIOLOGIST ASSISTANT CERTIFIED Inflammatory (HCC) procedure are in the results section. CBC WITH DIFFERENTIAL, B Routine 05/21/2020 7:43 Arthritis Results for this AM ANESTHESIOLOGIST ASSISTANT CERTIFIED Inflammatory (HCC) procedure are in the results section. C-REACTIVE PROTEIN Routine 05/21/2020 7:43 Arthritis Result s for this (CRP), S/P AM ANESTHESIOLOGIST ASSISTANT CERTIFIED Inflammatory (HCC) procedure are in the results section. ASPARTATE Routine 05/21/2020 7:43 Arthritis Results for this AMINOTRANSFERASE (AST), AM ANESTHESIOLOGIST ASSISTANT CERTIFIED Inflammatory (HCC ) procedure are in S/P the results section. CREATININE WITH EGFR, Routine 05/21/2020 7:43 Arthritis Res ults for this S/P AM ANESTHESIOLOGIST ASSISTANT CERTIFIED Inflammatory (HCC) procedure are in the results section. documented in this encounter Results AST (Aspartate Aminotransferase) (05/21/2020 7:43 AM ANESTHESIOLOGIST ASSISTANT CERTIFIED) Patholo gist Method Time Signature Aspartate 22 8 - 43 05/21/2020 CNFL Aminotransferase U/L 8:04 AM ANESTHESIOLOGIST ASSISTANT CERTIFIED (AST), P Specimen Anatomical Collection Method Collection Time Receive d Time (Source) Location / / Volume Laterality Blood (Blood, 05/21/2020 7:43 AM 05/21/19 7:44 Venous) ANESTHESIOLOGIST ASSISTANT CERTIFIED AM ANESTHESIOLOGIST ASSISTANT CERTIFIED Velma Munson APRN, C.N.P. LAB BLOOD ADD-ON Performing Organization Address City/State/ZIP Code Phon e Number [address] [address] [place] [address] System [address] Creatinine with Estimated GFR (05/21/2020 7:43 AM ANESTHESIOLOGIST ASSISTANT CERTIFIED) athologist Signature Creatinine 0.78 0.59 - 05/21/2020 CNFL 1.04 mg/dL 8:04 AM ANESTHESIOLOGIST ASSISTANT CERTIFIED eGFR-Black/Afric >90 >=60 05/21/2020 CNFL an Chilean mL/min/BSA 8:04 AM ANESTHESIOLOGIST ASSISTANT CERTIFIED Comment: ----ADDITIONAL INFORMATION---- Estimated GFR calculated using the 2009 CKD_EPI creatinine equation. eGFR Non-Black/ >90 >=60 mL/min/BSA 05/21/2020 8:04 AM ANESTHESIOLOGIST ASSISTANT CERTIFIED CNFL Comment: ----ADDITIONAL INFORMATION---- Estimated GFR calculated using the 2009 CKD_EPI creatinine equation. Specimen Anatomical Collection Method Collection Time Receive d Time (Source) Location / / Volume Laterality Blood (Blood, 05/21/2020 7:43 AM 05/21/19 7:44 Venous) ANESTHESIOLOGIST ASSISTANT CERTIFIED AM ANESTHESIOLOGIST ASSISTANT CERTIFIED Velma Munson APRN, C.N.P. LAB BLOOD ADD-ON Performing Organization Address City/State/ZIP Code Phon e Number [address] [address] [place] [address] [address] CRP (C-Reactive Protein) (05/21/2020 7:43 AM ANESTHESIOLOGIST ASSISTANT CERTIFIED) athologist Signature C-Reactive 3.3 <=8.0 mg/L 05/21/2020 CN[facility] Protein (CRP), 8:04 AM ANESTHESIOLOGIST ASSISTANT CERTIFIED P Specimen Anatomical Collection Method Collection Time Receive d Time (Source) Location / / Volume Laterality Blood (Blood, 05/21/2020 7:43 AM 05/21/19 7:44 Venous) ANESTHESIOLOGIST ASSISTANT CERTIFIED AM ANESTHESIOLOGIST ASSISTANT CERTIFIED Velma Munson APRN, C.N.P. LAB BLOOD ADD-ON Performing Organization Address City/State/ZIP Code Phon e Number [address] [address] [place] [address] System in [place] [address] Bl Sedimentation Rate (05/21/2020 7:43 AM ANESTHESIOLOGIST ASSISTANT CERTIFIED) Analysis Performed At Patho logist Time Signature Sedimentation 10 0 - 29 05/21/2020 CNFL Rate, B mm/1 h 8:32 AM ANESTHESIOLOGIST ASSISTANT CERTIFIED Specimen Anatomical Collection Method Collection Time Receive d Time (Source) Location / / Volume Laterality Blood (Blood, 05/21/2020 7:43 AM 05/21/19 7:44 Venous) ANESTHESIOLOGIST ASSISTANT CERTIFIED AM ANESTHESIOLOGIST ASSISTANT CERTIFIED Jorge Polo APRNNSandra LAB BLOOD ADD-ON Performing Organization Address City/State/ZIP Code Phon e Number [facility]- [address] [place] [address] [place] [address] System [address] CBC with Differential, Blood (05/21/2020 7:43 AM ANESTHESIOLOGIST ASSISTANT CERTIFIED) P athologist Signature Hemoglobin 14.3 11.6 - 05/21/2020 CNFL 15.0 g/dL 7:51 AM ANESTHESIOLOGIST ASSISTANT CERTIFIED Hematocrit 43.6 35.5 - 05/21/2020 CNFL 44.9 % 7:51 AM ANESTHESIOLOGIST ASSISTANT CERTIFIED Erythrocytes 5.09 3.92 - 05/21/2020 CNFL 5.13 7:51 AM ANESTHESIOLOGIST ASSISTANT CERTIFIED x10(12)/L MCV 85.7 78.2 - 05/21/2020 CNFL 97.9 fL 7:51 AM ANESTHESIOLOGIST ASSISTANT CERTIFIED RBC Distrib Width 13.4 12.2 - 05/21/2020 CNFL 16.1 % 7:51 AM ANESTHESIOLOGIST ASSISTANT CERTIFIED Platelet Count 275 157 - 371 05/21/2020 CNFL x10(9)/L 7:51 AM ANESTHESIOLOGIST ASSISTANT CERTIFIED Leukocytes 8.2 3.4 - 9.6 05/21/2020 CNFL x10(9)/L 7:51 AM ANESTHESIOLOGIST ASSISTANT CERTIFIED Neutrophils 5.79 1.56 - 05/21/2020 CNFL 6.45 7:51 AM ANESTHESIOLOGIST ASSISTANT CERTIFIED x10(9)/L Lymphocytes 1.81 0.95 - 05/21/2020 CNFL 3.07 7:51 AM ANESTHESIOLOGIST ASSISTANT CERTIFIED x10(9)/L Monocytes 0.48 0.26 - 05/21/2020 CNFL 0.81 7:51 AM ANESTHESIOLOGIST ASSISTANT CERTIFIED x10(9)/L Eosinophils 0.10 0.03 - 05/21/2020 CNFL 0.48 7:51 AM ANESTHESIOLOGIST ASSISTANT CERTIFIED x10(9)/L Basophils 0.04 0.01 - 05/21/2020 CNFL 0.08 7:51 AM ANESTHESIOLOGIST ASSISTANT CERTIFIED x10(9)/L Specimen Anatomical Collection Method Collection Time Receive d Time (Source) Location / / Volume Laterality Blood (Blood, 05/21/2020 7:43 AM 05/21/19 7:44 Venous) ANESTHESIOLOGIST ASSISTANT CERTIFIED AM ANESTHESIOLOGIST ASSISTANT CERTIFIED Velma Munson APRN C.N.P. LAB BLOOD ADD-ON Performing Organization Address City/State/[facility] Phon e Number [id number] [place] [address] [place] [address] System [address] documented in this encounter Visit Diagnoses Diagnosis Arthritis Inflammatory (HCC) documented in this encounter Additional Health Concerns Assessment Noted Time PHQ-9 Depression Total Score: 15 04/21/2018 1:00 PM CS T documented as of this encounter Care Teams Radiologic Technology Instructor Relationship Specialty Start Date End Date Elsewhere, Pcp PCP - General Internal Medicine 10/22/19 documented as of this encounter
--- OUTSIDE RECORDS SUMMARY | 2022-02-16 15:02 | XMS_ITS | Encounter Summary ---
:1970 Author Organization [facility] Address [address] [place] [address] Care Team Providers Name Role Phone Elsewhere, Pcp Primary Care Provider Unavailable Reason for Referral Outpatient (Routine) - Closed Specialty Diagnoses / Procedures Referred By Contact Refer red To Contact Rheumatology Velma Munson APRN, [facility] C.N.P. [address] [place] [phone] Referral ID Status Reason Start Date Expiration Date Visits Requ ested Visits Authorized [id number] Closed 05/28/2020 05/28/2021 1 1 MAN Outpatient (Routine) - Closed Specialty Diagnoses / Referred By Referred To Cont act Procedures Contact Gastroenterology and Diagnoses Diarrhea Gastroesophageal Reflux Disease Flatulence Velma Munson [facility] Hepatology LONG, C.N.P. [address] [place] [phone] Referral ID Status Reason Start Date Expiration Date Visits V isits Requested Authorized [id number] Closed Specialty 05/27/2020 05/27/2021 1 1 Services Required MAN Reason for Visit Outpatient (Routine) - Closed Specialty Diagnoses / Procedures Referred By Contact Refer red To Contact Rheumatology Velma Munson APRN, [facility] C.N.P. [address] [place] [phone] Referral ID Status Reason Start Date Expiration Date Visits Requ ested Visits Authorized [id number] Closed 01/10/2020 01/09/2021 1 1 Encounter Details Date Type Department Care Team Description 05/27/2020 Office Visit Division of Velma Munson Arthritis In flammatory (HCC) (Primary Dx); Rheumatology in L, POULTRY INSEMINATOR, C.N.P. Diarrhea; [place], [place] 200 [facility] High Risk Medication; 200 [place], [place] Gastroesophageal Reflux Dise ase; [place] [address] Flatulence; [id number] Xerostomia Social History Tobacco Use Types Packs/Day [...] Comments Blood Pressure 113/75 05/27/2020 2:50 PM MAT MAN Pulse 115 05/27/2020 2:50 PM MAT MAN Temperature 37.2 ??C (99 ??F) 05/27/2020 2:50 PM MAT MAN Respiratory Rate - - Oxygen Saturation - - Inhaled Oxygen Concentration - - Weight 77.6 kg (171 lb 1.2 oz) 05/27/2020 2:50 PM MAT MAN Height 158.3 cm (5' 2.32) 05/27/2020 2:50 PM MAT MAN Body Mass Index 30.97 05/27/2020 2:50 PM MAT MAN documented in this encounter Progress Notes Velma [...] but on a reevaluation later by a coach cleaner the diagnosis of mixed connective tissue disease [...] 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 She had herlap band [...] (0-28) 0 Patient global assessment (0-100) 12 Diathermy Equipment Repairer global assessment (0-100) 10 ESR (mm/h) 10 CRP (mg/L) 3.3 Disease Activity Score 28 using ESR (UNC18-ROI) 1.78 Disease Activity Score 28 using CRP ([id number]) 1.65 Clinical Disease Activity Index (CDAI) 2.2 [...] that she contact us at that time. MAN documented in this encounter Plan of Treatment Scheduled Referrals Name Type Priority Associated Order Schedule Diagnoses Gastroenterology and Outpatient Routine Diarrhea Expected: Hepatology - General Referral Gastroesophageal gastroenterology consult Reflux Disease (Approximate), (clinic) Flatulence Expires: 05/27/2023 Rheumatology office Outpatient Routine Expected : visit (clinic) Referral 08/26/2020 (Approximate), Expires: 05/28/2023 documented as of this encounter Results AST (Aspartate Aminotransferase) (07/16/2020 12:42 PM CDT) [facility] gist Method Time Signature Aspartate 25 8 - 43 07/16/2020 [facility] Aminotransferase U/L 1:33 PM CDT (AST), P Specimen Anatomical Collection Method Collection Time Receive d Time (Source) Location / / Volume Laterality Blood (Blood, 07/16/2020 12:42 07/16/2020 1:08 Venous) PM CDT PM CDT Karlene Polo APRN.N.P. LAB BLOOD ADD-ON Performing Organization Address City/[facility]/ZIP Code Phon e Number [facility]- [address] [place], [place] [address] [address] [place] [address] System in [place] [address] [place] [address] [place] Creatinine with Estimated GFR (07/16/2020 12:42 PM CDT) P athologist Signature Creatinine 0.84 0.59 - 07/16/2020 [facility] 1.04 mg/dL 1:33 PM CDT eGFR-Black/Afric >90 >=60 07/16/2020 [facility] an Cymro mL/min/BSA 1:33 PM CDT Comment: ----ADDITIONAL INFORMATION---- Estimated GFR calculated using the 2009 CKD_EPI creatinine equation. eGFR Non-Black/ 82 >=60 mL/min/BSA 1:33 PM CDT [facility] Comment: ----ADDITIONAL INFORMATION---- Estimated GFR calculated using the 2009 CKD_EPI creatinine equation. Specimen Anatomical Collection Method Collection Time Receive d Time (Source) Location / / Volume Laterality Blood (Blood, 07/16/2020 12:42 07/16/2020 1:08 Venous) PM CDT PM CDT Karlene Polo APRN.N.P. LAB BLOOD ADD-ON Performing Organization Address City/State/ZIP Code Phon e Number [facility]- [address] [place], [place] [address] [address] [place] [address] System in [place] [address] CRP (C-Reactive Protein) (07/16/2020 12:42 PM CDT) [...] Code Phon e Number [facility]- [address] [place] [place], [place] [address] [facility] [place] [address] System in [place] [facility] [place] Sedimentation Rate (07/16/2020 12:42 PM CDT) Analysis Performed At [facility] logist Time Signature Sedimentation 13 0 - 29 07/16/2020 [facility] Rate, B mm/1 h 3:10 PM CDT Specimen Anatomical Collection Method Collection Time Receive d Time (Source) Location / / Volume Laterality Blood (Blood, 07/16/2020 12:42 07/16/2020 1:07 Venous) PM CDT PM CDT Velma Munson APRN, C.N.P. LAB BLOOD ADD-ON Performing Organization Address City/State/ZIP Code Phon e Number [facility]- [address] [place], [place] [address] [address] [place] [place] [address] System in [place] [facility] [place] CBC with Differential, Blood (07/16/2020 12:42 PM [...] 07/16/2020 1:07 Venous) PM CDT PM CDT Jorge Polo APRNNSandra LAB BLOOD ADD-ON Performing Organization Address City/State/ZIP Code Phon e Number [facility]- [address] [place], [place] [address] [address] [place] [address] System in [place] [address] [address] documented in this encounter Visit Diagnoses Diagnosis Arthritis Inflammatory (HCC) - Primary Diarrhea High Risk Medication Gastroesophageal Reflux Disease Flatulence Xerostomia documented in this encounter Additional Health Concerns Assessment Noted Time PHQ-9 Depression Total Score: 15 04/21/2018 1:00 PM CS T documented as of this encounter Care Teams Wing Commander Relationship Specialty Start Date End Date Elsewhere, Pcp PCP - General Internal Medicine 10/22/19 documented as of this encounter
--- OUTSIDE RECORDS SUMMARY | 2022-02-16 15:02 | XMS_ITS | Encounter Summary ---
:1970 Author Organization [facility] Address [address] [place] [address] Care Team Providers Name Role Phone Elsewhere, Pcp Primary Care Provider Unavailable Encounter Details Date Type Department Care Team Description 08/18/2020 Hospital Encounter Department of Velma Munson High Risk Medication Laboratory Medicine LONG Schwartz C.N .P. in [place], [address] [place] [address] [place] [phone] [place], [place] [phone] (Work) [phone] Social History Tobacco Use Types Packs/Day Years [...] CDT eGFR-Black/Afric >90 >=60 08/18/2020 [facility] an [place] mL/min/BSA 4:00 PM CDT Comment: ----ADDITIONAL INFORMATION---- [...] PM 08/19/19 3:40 Venous) CDT PM CDT Karlene Polo APRN.N.P. LAB BLOOD ADD-ON Performing Organization Address City/[facility]/ZIP Code Phon e Number [facility]- [address] [place], [place] [address] [place] [address] System in [place] [address] [place] AST (Aspartate Aminotransferase) (08/18/2020 3:39 PM CDT) [facility] [place] Method Time Signature Aspartate 19 8 - 43 08/18/2020 [facility] Aminotransferase U/L 4:00 PM CDT (AST), P Specimen Anatomical Collection Method Collection Time Receive d Time (Source) Location / / Volume Laterality Blood (Blood, 08/18/2020 3:39 PM 08/19/19 3:40 Venous) CDT PM CDT Velma Munson APRN, C.N.P. LAB BLOOD ADD-ON Performing Organization Address City/State/ZIP Code Phon e Number [facility]- [address] [place], [place] [address] [place] [address] System in [place] [address] [place] (ABNORMAL) CBC with Differential, Blood (08/18/2020 3:38 PM CDT) [facility] [place] Method Time Signature Hemoglobin 14.7 11.6 - [...] 3:40 Venous) CDT PM CDT Jorge Polo APRNNSandra LAB BLOOD ADD-ON Performing Organization Address City/State/ZIP Code Phon e Number [facility]- [address] [place], [place] [address] [place] [address] System in [place] [address] documented in this encounter Visit Diagnoses Diagnosis High Risk Medication documented in this encounter Additional Health Concerns Assessment Noted Time PHQ-9 Depression Total Score: 15 04/21/2018 1:00 PM CS T documented as of this encounter Care Teams Head Still Operator Relationship Specialty Start Date End Date Elsewhere, Pcp PCP - General Internal Medicine 10/22/19 documented as of this encounter
--- OUTSIDE RECORDS SUMMARY | 2022-02-16 15:02 | XMS_ITS | Encounter Summary ---
:1970 Author Organization [facility] Address [address] [place] [address] Care Team Providers Name Role Phone Elsewhere, Pcp Primary Care Provider Unavailable Reason for Visit Reason Comments COVID Inquiry Encounter Details Date Type Department Care Team Description 05/12/2020 Clinical Communication Division of Velma Munson VIGris Inquiry Rheumatology in L, AIRCRAFT ENGINE MECHANIC SUPERVISOR, C.N.P. [place], [place] [address] [facility] [address] [place] [address] [phone] Social History Tobacco Use Types Packs/Day Years [...] or relatives? How often do you attend caodaism or More than 4 times per year 11/16/2021 zoroastrianism services? Do you belong to any clubs or No 11/16/2021 organizations such as caodaism groups, unions, fraternal or athletic groups, or [...] documented as of this encounter Care Teams Rand Butting Machine Operator Relationship Specialty Start Date End Date Elsewhere, Pcp PCP - General Internal Medicine 10/22/19 documented as of this encounter
--- OUTSIDE RECORDS SUMMARY | 2022-02-16 15:02 | XMS_ITS | Encounter Summary ---
:1970 Author Organization [facility] Address [address] [place] [address] Care Team Providers Name Role Phone Elsewhere, Pcp Primary Care Provider Unavailable Reason for Visit Reason Comments Covid vaccine ? safe to get Encounter Details Date Type Department Care Team Description 04/18/2020 Clinical Division of Velma Munson vaccin e (? Communication Rheumatology in L, PUMPER GAUGER APPRENTICE, C.N.P. safe to get) [place], [place] [address] [facility] [address] [place] [address] [phone] Social History Tobacco Use Types Packs/Day Years [...] Munson APRN, C.N.P. - 04/30/2020 9:18 AM [employer] Addended by: VELMA MUNSON on: 04/30/2020 09:18 AM Modules accepted: Orders ER [employer] Telephone Encounter - Velma Munson APRN, C.N.P. - 04/30/2020 9:15 AM [employer] Yes I can see her for a visit. There is a follow up already ordered. ER [employer] Telephone Encounter - Bhavana Washington - 04/28/2020 12:32 PM CST Waleska called this afternoon. She is still experiencing the fatigue and bruises. She's wondering if an appt would be appropriate at this point. She does start PT tomorrow for her ankle. ER [employer]DS Telephone Encounter - Velma Munson APRN, C.N.P. - 04/27/2020 8:53 AM [employer] CBC was stable. I am not concerned about the clumsiness due to the recent ankle sprain. ER [employer]DS Telephone Encounter - Irene Andujar R.N. - [...] following references were used: nursing clinical judgement ER [employer] Telephone Encounter - Velma Munson APRN, C.N.P. - 04/21/2020 4:26 PM [employer] Does she feel as though her muscles are weak? Is she having difficulty going from sitting to standing? We need to make sure she is not developing a myositis from the Plaquenil. ER [employer] Telephone Encounter - Cam Espinoza R.N. - 04/21/2020 2:06 PM [employer] Information Discussed Message relayed to patient. She [...] following references were used: nursing clinical judgement [employer] Telephone Encounter - Kaylie Vu M.A.N., R.N. - 04/21/2020 9:02 AM [employer] SUBJECTIVE CHIEF COMPLAINT / REASON FOR CALL Covid vaccine (? safe to get) Information Discussed Left message to return our call. OK for LISSETH to give Waleska this message per Velma: Yes she is ok to get the vaccine. 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 PLAN The following references were used: nursing clinical judgement [facility] [employer] Telephone Encounter - Velma Munson APRN, C.N.P. - 04/21/2020 7:52 AM [employer] Yes she is ok to get the vaccine. 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 [employer] Telephone Encounter - Keesha Friend - 04/18/2020 9:48 AM CST Pt is scheduled for vaccine on 04-24 She wants to make sure she is OK getting it ER [employer] documented in this encounter Plan of Treatment Not on filedocumented as of this encounter Visit Diagnoses Not on filedocumented in this encounter Additional Health Concerns Assessment Noted Time PHQ-9 Depression Total Score: 15 04/21/2018 1:00 PM CS T documented as of this encounter Care Teams Postdoctoral Fellow Relationship Specialty Start Date End Date Elsewhere, Pcp PCP - General Internal Medicine 10/22/19 documented as of this encounter
--- OUTSIDE RECORDS SUMMARY | 2022-02-16 15:02 | XMS_ITS | Encounter Summary ---
:1970 Author Organization [facility] Address [address] [place] [address] Care Team Providers Name Role Phone Elsewhere, Pcp Primary Care Provider Unavailable Reason for Visit Reason Comments Lab Monitoring Encounter Details Date Type Department Care Team Description 08/20/2020 Documentation Division of Rheumatology in Sarah Stewart, Lab Monitoring [place], [place] R.N. [address] [facility] [address] [place] [address] [place], [place] [phone] Social History Tobacco Use Types Packs/Day Years [...] or relatives? How often do you attend orthodoxy or More than 4 times per year 11/16/2021 hindu services? Do you belong to any clubs or No 11/16/2021 organizations such as orthodoxy groups, unions, fraternal or athletic groups, or [...] of this encounter Progress Notes Sarah Stewart RLennoxN. - 08/20/2020 11:53 AM CDT ASSESSMENT Rheumatology [...] 09/24/2020 DTL Black/ mL/min/BSA 3:07 PM CDT Tajik Comment: ----ADDITIONAL INFORMATION---- Estimated GFR calculated using the 2009 CKD_EPI creatinine equation. eGFR-Black/ >90 >=60 mL/min/BSA 2020 3:07 PM CDT DTL Comment: ----ADDITIONAL INFORMATION---- Estimated GFR calculated using the 2009 CKD_EPI creatinine equation. Specimen Anatomical Collection Method Collection Time Receive d Time (Source) Location / / Volume Laterality Blood (Blood, 09/24/2020 1:57 PM 09/25/19 2:21 Venous) CDT PM CDT Velma Munson APRN, Karlene.N.P. LAB BLOOD ADD-ON Performing Organization Address City/[facility] Phon e Number [facility] - [address] [place] [address] AST (Aspartate Aminotransferase) (09/24/2020 1:57 PM CDT) [facility] Method Time Signature Aspartate 17 8 - 43 09/24/2020 DTL Aminotransferase U/L 3:07 PM CDT (AST), S Specimen Anatomical Collection Method Collection Time Receive d Time (Source) Location / / Volume Laterality Blood (Blood, 09/24/2020 1:57 PM 09/25/19 21 2:21 Venous) CDT PM CDT Karlene Polo APRN.N.P. LAB BLOOD ADD-ON Performing Organization Address [facility] Phon e Number [facility] - [address] [place] [address] (ABNORMAL) CBC with Differential, Blood (09/24/2020 1:57 PM CDT) [facility] Method Time Signature Hemoglobin 14.6 11.6 - [...] City/State/ZIP Code Phon e Number [facility] - [address] [place], [place] [address] [facility] [place] [address] Laboratories-[facility] [address] documented in this encounter Visit Diagnoses Diagnosis Medication Therapy Fabric Worker Foreman Not Anticoa gulant - Primary documented in this encounter Additional Health Concerns Assessment Noted Time PHQ-9 Depression Total Score: 15 04/21/2018 1:00 PM CS T documented as of this encounter Care Teams Cylinder Grinder Relationship Specialty Start Date End Date Elsewhere, Pcp PCP - General Internal Medicine 10/22/19 documented as of this encounter
--- OUTSIDE RECORDS SUMMARY | 2022-02-16 15:02 | XMS_ITS | Encounter Summary ---
:1970 Author Organization [facility] Address [address] [place] [address] Care Team Providers Name Role Phone Elsewhere, Pcp Primary Care Provider Unavailable Encounter Details Date Type Department Care Team Description 05/28/2020 Clinical Communication Division of Velma Munson Rheumatology in , COMMERCIAL CREDIT OFFICER, C.N.P. [place], [place] [address] [facility] [address] [place] [address] [phone] Social History Tobacco Use Types Packs/Day Years [...] documented as of this encounter Care Teams Planning Intern Relationship Specialty Start Date End Date Elsewhere, Pcp PCP - General Internal Medicine 10/22/19 documented as of this encounter
--- OUTSIDE RECORDS SUMMARY | 2022-02-16 15:02 | XMS_ITS | Encounter Summary ---
:1970 Author Organization [facility] Address [address] [place] [address] Care Team Providers Name Role Phone Elsewhere, Pcp Primary Care Provider Unavailable Reason for Visit Reason Comments P3 Symptoms exhaustion Encounter Details Date Type Department Care Team Description 06/02/2020 Clinical Division of Velma Munson P3 Symptoms Communication Rheumatology in L, BILINGUAL SPEECH THERAPIST, C.N.P. (exhaustion) [place], [place] [address] [facility] [address] [place] [phone] [phone] Social History Tobacco Use Types Packs/Day Years [...] Munson APRN, C.N.P. - 06/03/2020 4:40 PM TOP TILE DECORATOR I see she was able to get a GI appointment for 08/19/20. She will need to continue to check to see ifthere are cancellations. Regarding the fatigue she has not had her thyroid checked. I would like her to see her PCP for work up other causes. TILE DECORATOR Telephone Encounter - Tamica Kramer - 06/02/2020 [...] Patient portal Y/N/Offered Information: Preferred response (portal/phone): [phone] TILE DECORATOR documented in this encounter Plan of Treatment Not on filedocumented as of this encounter Visit Diagnoses Not on filedocumented in this encounter Additional Health Concerns Assessment Noted Time PHQ-9 Depression Total Score: 15 04/21/2018 1:00 PM CS T documented as of this encounter Care Teams Furnace Combustion Tester Relationship Specialty Start Date End Date Elsewhere, Pcp PCP - General Internal Medicine 10/22/19 documented as of this encounter
--- OUTSIDE RECORDS SUMMARY | 2022-02-16 15:02 | XMS_ITS | Encounter Summary ---
:1970 Author Organization [facility] Address [address] [place] [address] Care Team Providers Name Role Phone Elsewhere, Pcp Primary Care Provider Unavailable Reason for Visit Reason Comments Lab Monitoring Encounter Details Date Type Department Care Team Description 04/24/2020 Clinical Communication Division of Velma Munson Monitoring Rheumatology in L, QUARRY WORKER, C.N.P. [place], [place] [address] [email or web address] [address] [place] [address] [phone] Social History Tobacco Use Types Packs/Day Years [...] to continue with current plan of care. OCELLULOSE MAKER documented in this encounter Plan of Treatment [...] encounter Results Creatinine with Estimated GFR (04/10/2020) athologist Signature EXT Creatinine 0.6 0.6 - 1.3 mg/dL Specimen (Source) Anatomical Location Collection Method / Collectio n Time Received Time / Laterality Volume Blood (Blood, Venous) Resulting Agency Comment [facility]. Velma Munson APRN, C.N.P. LAB BLOOD ADD-ON [...] Volume Blood (Blood, Venous) Resulting Agency Comment [facility]. Velma Munson APRN, C.N.P. LAB BLOOD ADD-ON documented in this encounter Visit Diagnoses Not on filedocumented in this encounter Additional Health Concerns Assessment Noted Time PHQ-9 Depression Total Score: 15 04/21/2018 1:00 PM CS T documented as of this encounter Care Teams Senior Vice President Relationship Specialty Start Date End Date Elsewhere, Pcp PCP - General Internal Medicine 10/22/19 documented as of this encounter
--- OUTSIDE RECORDS SUMMARY | 2022-02-16 15:02 | XMS_ITS | Encounter Summary ---
:1970 Author Organization [facility] Address [address] [place] [address] Care Team Providers Name Role Phone Elsewhere, Pcp Primary Care Provider Unavailable Encounter Details Date Type Department Care Team Description 05/15/2020 Immunization Department of [facility] Alfie Kearns For COVID-19 Medicine, Alfredo Jain M.D. Vaccine Immunization [facility], in [address] [place] [phone] [place] [address] [place], [place] (Work) [phone] Social History Tobacco Use [...] documented as of this encounter Care Teams Oracle Security Consultant Relationship Specialty Start Date End Date Elsewhere, Pcp PCP - General Internal Medicine 10/22/19 documented as of this encounter
--- OUTSIDE RECORDS SUMMARY | 2022-02-16 15:02 | XMS_ITS | Encounter Summary ---
:1970 Author Organization [facility] Address [address] [place] [address] Care Team Providers Name Role Phone Elsewhere, Pcp Primary Care Provider Unavailable Reason for Visit Reason Comments COVID Inquiry Encounter Details Date Type Department Care Team Description 07/10/2020 Clinical Communication Division of Velma Munson VIGris Inquiry Rheumatology in L, DIGESTER CAPPER, C.N.P. [place], [place] [address] [facility] [address] [place] [phone] [phone] Social History Tobacco Use Types Packs/Day Years [...] documented as of this encounter Care Teams Precision Aircraft Structure Assembler Relationship Specialty Start Date End Date Elsewhere, Pcp PCP - General Internal Medicine 10/22/19 documented as of this encounter
--- OUTSIDE RECORDS SUMMARY | 2022-02-16 15:02 | XMS_ITS | Encounter Summary ---
:1970 Author Organization [facility] Address [address] [place] [address] Care Team Providers Name Role Phone Elsewhere, Pcp Primary Care Provider Unavailable Encounter Details Date Type Department Care Team Description 09/16/2020 Clinical Communication Division of [place], Gastroenterology in Julián Narayan M.D. [place], [place] [address] [facility] [address] [place] [address] [phone] Social History Tobacco Use Types Packs/Day Years [...] documented as of this encounter Care Teams Translation Director Relationship Specialty Start Date End Date Elsewhere, Pcp PCP - General Internal Medicine 10/22/19 documented as of this encounter
--- OUTSIDE RECORDS SUMMARY | 2022-02-16 15:02 | XMS_ITS | Encounter Summary ---
:1970 Author Organization [facility] Address [address] [place] [address] Care Team Providers Name Role Phone Elsewhere, Pcp Primary Care Provider Unavailable Reason for Visit Reason Comments Ear pain / Mouth sores Encounter Details Date Type Department Care Team Description 08/11/2020 Clinical Division of Velma Munson Ear pain / M outh Communication Rheumatology in L, SENIOR INTERNET SALES CONSULTANT, C.N.P. [place], [place] [address] [facility] [address] [place] [address] [phone] Social History Tobacco Use Types Packs/Day Years [...] sent. Telephone Encounter - Velma Munson APRN, C.N.P. - 08/12/2020 12:44 PM CDT It sounds [...] eye. She was told to contact her Industrial Engineering Director about the oral sores, her ears were [...] and advised she follow up with her commercial attache. Patient also stated a blood vessel in her eye busted and it hurts to close her eye. The local doctor did run labs and the liver panel is still pending. Follow-up requested: yes Preferred response (portal/phone): [phone] documented in this encounter Plan of Treatment Not on filedocumented as of this encounter Visit Diagnoses Not on filedocumented in this encounter Additional Health Concerns Assessment Noted Time PHQ-9 Depression Total Score: 15 04/21/2018 1:00 PM CS T documented as of this encounter Care Teams Hat Sprayer Relationship Specialty Start Date End Date Elsewhere, Pcp PCP - General Internal Medicine 10/22/19 documented as of this encounter
--- OUTSIDE RECORDS SUMMARY | 2022-02-16 15:03 | XMS_ITS | Encounter Summary ---
:1970 Author Organization [facility] Address [address] [place] [address] Care Team Providers Name Role Phone Elsewhere, Pcp Primary Care Provider Unavailable Reason for Visit Reason Onset Date Comments Outpatient COVID-19 Testing 02/19/2020 Error 02/23/2020 Encounter Details Date Type Department Care Team Description 02/19/2020 External Outreach Urgent Care in [place], Infec tion Upper Respiratory (Primary Dx); [place], [place] SALVAGE MACHINE OPERATOR, C.N.P. ERRONEOUS ENCOUNTER--DISREGARD [address] [place] [address] [place], [place] [phone] [address] Social History Tobacco Use Types Packs/Day [...] to pay for the very basics like No Paper Just Vaporw hat hard 11/16/2021 food, housing, medical care, [...] documented as of this encounter Care Teams Sand Analyst Relationship Specialty Start Date End Date Elsewhere, Pcp PCP - General Internal Medicine 10/22/19 documented as of this encounter
--- OUTSIDE RECORDS SUMMARY | 2022-02-16 15:03 | XMS_ITS | Encounter Summary ---
:1970 Author Organization [facility] Address [address] [place] [address] Care Team Providers Name Role Phone Elsewhere, Pcp Primary Care Provider Unavailable Reason for Visit Reason Onset Date Comments Outpatient COVID-19 Testing 10/22/2019 Encounter Details Date Type Department Care Team Description 10/22/2019 External Outreach Department of Employer Based, [facility], Covid Serology Screening For Other [facility], in Testing Viral [place], [place] (COVID-19) (Primary [address] Dx) [place] [phone] Social History Tobacco Use Types Packs/Day Years [...] of this encounter Progress Notes Jessica Fonseca L.PDeshawn. - 10/22/2019 1:59 PM CDT Encounter created [...] Scrn, Blood Spot (10/22/2019 2:01 PM CDT) [facility] Method Time Signature SARS-CoV-2 Reactive (A) Negative 10/24/2019 [facility] IgG Emp Scrn, 10:17 PM CDT Ab [...] . ?? Testing was performed using the EURO[employer]Alta N Zvne-MFKL-AfH-2 NAHUM (IgG). ??This test has received Emergency Use Authorization (EUA) by the U.S. Food and Drug Administration and is used per human resource assistant's instructions, but it is modified from the human resource assistant's instructions wit h a bridging study to include dried blood spot specimens. ? ? Performance characteristics were verifie d by [facility] in a manner consistent with CLIA require ments. ?? Specimen Anatomical Collection Method Collection Time Receive d Time (Source) Location / / Volume Laterality Blood (Blood, 10/22/2019 2:01 PM 10/24/19 20 5:16 Venous) CDT PM CDT Covid Serology Testing Employer Based LAB MICROBIOLOGY - BLOOD ORDERABLES Performing Organization Address City/State/ZIP Code Phon e Number [facility] [address] [place] [address] SUPPORT CENTER [facility] [place] [address] Laboratory Medicine and Pathology [address] [place] documented in this encounter Visit Diagnoses Diagnosis Encounter For Screening For Other Viral Diseases (COVID-19) - Primary documented in this encounter Additional Health Concerns Assessment Noted Time PHQ-9 Depression Total Score: 15 04/21/2018 1:00 PM CS T documented as of this encounter Care Teams Carbonation Equipment Tender Relationship Specialty Start Date End Date Elsewhere, Pcp PCP - General Internal Medicine 10/22/19 documented as of this encounter
--- OUTSIDE RECORDS SUMMARY | 2022-02-16 15:03 | XMS_ITS | Encounter Summary ---
:1970 Author Organization [facility] Address [address] [place] [address] Care Team Providers Name Role Phone Elsewhere, Pcp Primary Care Provider Unavailable Reason for Visit Reason Comments Med Refill Encounter Details Date Type Department Care Team Description 02/13/2020 Refill Division of Rheumatology in Smita Munson sa, APRN, Med Refill [place], [place] C.N.P. [address] [facility] [address] [place] [address] [place] [address] [phone] (Wo rk) Social History Tobacco Use Types [...] Telephone Encounter - Cam Espinoza RLennoxN. - 02/20/2020 3:34 PM CDT Need to [...] documented as of this encounter Care Teams Instructional Designer Relationship Specialty Start Date End Date Elsewhere, Pcp PCP - General Internal Medicine 10/22/19 documented as of this encounter
--- OUTSIDE RECORDS SUMMARY | 2022-02-16 15:03 | XMS_ITS | Encounter Summary ---
:1970 Author Organization [facility] Address [address] [place] [address] Care Team Providers Name Role Phone Elsewhere, Pcp Primary Care Provider Unavailable Encounter Details Date Type Department Care Team Description 10/25/2019 Orders Only Department of Family Employer Based, [facility] Covid Serology Screeni ng For Other Clinic, in [place], Testing [facility]al [facility] (COVID-19) (Primary [address] Dx) [place] [address] Social History Tobacco Use Types [...] on filedocumented as of this encounter Results SARS-CoV-2 Total Antibody, Serum (10/26/2019 9:43 AM CDT) [facility] Method Time Signature SARS-CoV-2 Negative Negative [...] was performed using the Jumana El ecsys Bmgz-LRIB-QrT-2 Reagent assay from [employer], which has received Emergency Use Authori zation(EUA) by the U.S. Food and Drug Administration . Fact sheets for this Emergency Use Autho rization (EUA) assay can be found at the following link s: For Healthcare Providers: https://www.fda.gov/media/737064/downloa d For Patients: https://www.fda.gov/media/513813/downloa d Specimen Anatomical Collection Method Collection Time Receive d Time (Source) Location / / Volume Laterality Blood (Blood, 10/26/2019 9:43 AM 10/26/19 20 2:40 Venous) CDT PM CDT Covid Serology Testing Employer Based LAB MICROBIOLOGY - BLOOD ORDERABLES Performing Organization Address City/State/ZIP Code Phon e Number [facility]- [address] [place] [phone] [facility] [place] [address] System [address] documented in this encounter Visit Diagnoses Diagnosis Encounter For Screening For Other Viral Diseases (COVID-19) - Primary documented in this encounter Additional Health Concerns Assessment Noted Time PHQ-9 Depression Total Score: 15 04/21/2018 1:00 PM CS T documented as of this encounter Care Teams Cylinder Handler Relationship Specialty Start Date End Date Elsewhere, Pcp PCP - General Internal Medicine 10/22/19 documented as of this encounter
--- OUTSIDE RECORDS SUMMARY | 2022-02-16 15:03 | XMS_ITS | Encounter Summary ---
:1970 Author Organization [facility] Address [address] [place] [address] Care Team Providers Name Role Phone Elsewhere, Pcp Primary Care Provider Unavailable Reason for Visit Reason Comments COVID Nurse Line Encounter Details Date Type Department Care Team Description 02/19/2020 Clinical Communication Division of Suyapa Dawn Nurse Line [facility] Internal R, R.N. [facility] [address] [place] [address] in [facility] [address] [place] [phone] [address] [facility] (Work) [place] [phone] Social History Tobacco Use Types Packs/Day Years [...] request for travel related reasons, sent to [place] located at [address] [place]. Testing hours are M-F 8:30 am to [...] and water aren't available, use a hand electric razor mechanic that contains at least 60% alcohol. Avoid [...] since you were tested. Educational Resource: https://www.cdc.gov/coronavirus/2019-ncov/ mnyqvjj-jyjlngk-esir/index.html RECOMMENDATIONS TESTING CRITERIA IS MET: Stay home [...] COVID- 19 test result. Education Resources: https://www.cdc.gov/coronavirus/2019- ncov/xd-hdk-gwp-sick/llkao-amfn-uoej.html SELF CARE FOR ALL PATIENTS: Take breaks [...] care: Yes The following references were used: [facility] novel coronavirus (COVID- 19) resources CDC web site https://www.cdc.gov/coronavirus/2019-ncov/summary.html Nursing judgement documented in this encounter Plan of Treatment Not on filedocumented as of this encounter Visit Diagnoses Not on filedocumented in this encounter Additional Health Concerns Assessment Noted Time PHQ-9 Depression Total Score: 15 04/21/2018 1:00 PM CS T documented as of this encounter Care Teams High Climber Relationship Specialty Start Date End Date Elsewhere, Pcp PCP - General Internal Medicine 10/22/19 documented as of this encounter
--- OUTSIDE RECORDS SUMMARY | 2022-02-16 15:03 | XMS_ITS | Encounter Summary ---
:1970 Author Organization [facility] Address [address] [place] [address] Care Team Providers Name Role Phone Unavailable Primary Care Provider Unavailable Reason for Visit Reason Comments P2: medication and hip pain Encounter Details Date Type Department Care Team Description 07/25/2019 Clinical Division of Velma Munson P2: medicati on and Communication Rheumatology in L, DEVELOPMENT ADVISOR, C.N.P. hip pain [place], [place] [address] [facility] [address] [place] [address] [phone] Social History Tobacco Use Types Packs/Day Years [...] Munson CNP Please contact the patient at: [phone] documented in this encounter Plan of Treatment Not on filedocumented as of this encounter Visit Diagnoses Not on filedocumented in this encounter Additional Health Concerns Assessment Noted Time PHQ-9 Depression Total Score: 15 04/21/2018 1:00 PM CS T documented as of this encounter
--- OUTSIDE RECORDS SUMMARY | 2022-02-16 15:03 | XMS_ITS | Encounter Summary ---
:1970 Author Organization [facility] Address [address] [place] [address] Care Team Providers Name Role Phone Elsewhere, Pcp Primary Care Provider Unavailable Reason for Visit Reason Comments COVID Nurse Line Encounter Details Date Type Department Care Team Description 12/14/2019 Clinical Communication Division of Velma Munson Nurse Line Rheumatology in L, STOCK LETTERER, C.N.P. [place], [place] [address] [facility] [address] [place] [address] [phone] Social History Tobacco Use Types Packs/Day Years [...] - 12/14/2019 10:13 AM CDT ([facility] and [facility] locations only: If the patient is not having symptoms and is requesting COVID-19 Nasal Swab testing only, use the process listed in the COVID-19 Patient Requesting COVID PCR Test OTG COVID-19 [place] Patient Requesting COVID PCR Test). In the past 30 days have you had a swab for COVID that tested positive? no Route reply to: [facility] SCHEDULING Scheduling Contact Number: [phone] documented in this encounter Plan of Treatment Not on filedocumented as of this encounter Visit Diagnoses Not on filedocumented in this encounter Additional Health Concerns Assessment Noted Time PHQ-9 Depression Total Score: 15 04/21/2018 1:00 PM CS T documented as of this encounter Care Teams Bankruptcy Attorney Relationship Specialty Start Date End Date Elsewhere, Pcp PCP - General Internal Medicine 10/22/19 documented as of this encounter
--- OUTSIDE RECORDS SUMMARY | 2022-02-16 15:03 | XMS_ITS | Encounter Summary ---
:1970 Author Organization [facility] Address [address] [place] [address] Care Team Providers Name Role Phone Unavailable Primary Care Provider Unavailable Reason for Visit Reason Comments Med Refill Encounter Details Date Type Department Care Team Description 08/07/2019 Refill Division of Rheumatology in Smita Munson sa, APRN, Med Refill [place], [place] C.N.P. [address] [facility] [address] [place] [address] [place] [address] [phone] (Wo rk) Social History Tobacco Use Types [...] Miscellaneous Notes Telephone Encounter - Sawyer Nicholson RLennoxN. - 08/14/2019 3:48 PM CDT Prescription renewal request for hydroxychloroquine (Plaquenil) received from pharmacy. HISTORY OF PRESENT ILLNESS Last Rheum visit: 01/12/2019 with Velma Munson APRN, AUTOMATIC CLIPPER Future office visit: ordered, not yet scheduled [...]
--- OUTSIDE RECORDS SUMMARY | 2022-02-16 15:03 | XMS_ITS | Encounter Summary ---
:1970 Author Organization [facility] Address [address] [place] [address] Care Team Providers Name Role Phone Elsewhere, Pcp Primary Care Provider Unavailable Reason for Referral Outpatient (Routine) - Closed Specialty Diagnoses / Procedures Referred By Contact Refer red To Contact Diagnoses Bursitis Trochanteric Right Elodia Smith M.D. [facility] Procedures Large Joint Injection: R greater troch bursa 200 [place] [address] Referral ID Status Reason Start Date Expiration Date Visits Requ ested Visits Authorized [id number] Closed 02/01/2020 01/31/2021 1 1 Reason for Visit Outpatient (Routine) - Closed Specialty Diagnoses / Procedures Referred By Contact Refer red To Contact Diagnoses Arthritis Inflammatory (HCC) Bursitis Trochanteric Right Velma Munson APRN, [facility] Procedures RHU Non-Guided Aspiration/Injection - Large Joint C.N.P. [address] [place] [phone] Referral ID Status Reason Start Date Expiration Date Visits Requ ested Visits Authorized [id number] Closed 01/10/2020 01/09/2021 1 1 Encounter Details Date Type Department Care Team Description 02/01/2020 Procedure visit Division of Velma Munson APRN, C.N.P. [address] [place] [phone] Arthritis Inflammatory (HCC); Rheumatology in Patricia Stone M.D. [address] [place] [address] Bursitis Trochanteric Right [place], [place] [address] [place] [address] Social History Tobacco Use Types Packs/Day Years [...] N - LARGE JOINT Bursitis Trochanteric Right [place] ARTHCS ASP/INJ Routine 02/01/2020 1:40 PM Bursitis Trochant ada Results for this MJR JT WO US CDT Right procedure are i n the results section. documented in this encounter Results [place] ARTHCS ASP/INJ MJR JT WO US (02/01/2020 [...] documented as of this encounter Care Teams Medical Laboratory Technologist Relationship Specialty Start Date End Date Elsewhere, Pcp PCP - General Internal Medicine 10/22/19 documented as of this encounter
--- OUTSIDE RECORDS SUMMARY | 2022-02-16 15:03 | XMS_ITS | Encounter Summary ---
:1970 Author Organization [facility] Address [address] [place] [address] Care Team Providers Name Role Phone Elsewhere, Pcp Primary Care Provider Unavailable Reason for Visit Reason Comments Pre-visit Testing Orders Encounter Details Date Type Department Care Team Description 12/14/2019 Clinical Division of Velma Munson Pre-visit Te sting Communication Rheumatology in L, MANAGER SOCIAL, C.N.P. Orders [place], [place] [address] [facility] [address] [place] [address] [phone] Social History Tobacco Use Types Packs/Day Years [...] on filedocumented as of this encounter Results CBC with [...] C.N.P. LAB BLOOD ADD-ON Performing Organization Address City/[facility] Phon e Number [address] [address] [place] [address] System [address] CRP (C-Reactive Protein) (12/28/2019 10:26 AM CDT) P athologist Signature C-Reactive 3.8 <=8.0 mg/L 12/28/2019 CNFL Protein (CRP), 10:47 AM CDT P Specimen Anatomical Collection Method Collection Time Receive d Time (Source) Location / / Volume Laterality Blood (Blood, 12/28/2019 10:26 12/28/2019 Venous) AM CDT 10:28 AM CDT Velma Munson APRN, C.N.P. LAB BLOOD ADD-ON Performing Organization Address City/[facility] Code Phon e Number [address] [address] [place] [address] System in [place] [address] Bl Sedimentation Rate (12/28/2019 10:26 AM CDT) Analysis Performed At Patho logist Time Signature Sedimentation 13 0 - 29 12/28/2019 CNFL Rate, B mm/1 h 11:46 AM CDT Specimen Anatomical Collection Method Collection Time Receive d Time (Source) Location / / Volume Laterality Blood (Blood, 12/28/2019 10:26 12/28/2019 Venous) AM CDT 10:28 AM CDT Jorge Polo APRNN.P. LAB BLOOD ADD-ON Performing Organization Address City/[facility] Code Phon e Number [address] [address] [place] [address] System [address] Creatinine with Estimated GFR (12/28/2019 10:26 AM CDT) P athologist Signature Creatinine 0.71 0.59 - 12/28/2019 CNFL 1.04 mg/dL 10:47 AM CDT eGFR-Black/Afric >90 >=60 12/28/2019 CNFL an [place] mL/min/BSA 10:47 AM CDT Comment: ----ADDITIONAL INFORMATION---- [...] 12/28/2019 Venous) AM CDT 10:28 AM CDT Karlene Polo APRN.N.P. LAB BLOOD ADD-ON Performing Organization Address City/State/ZIP [facility] Phon e Number [address] [address] [place] [address] AST (Aspartate Aminotransferase) (12/28/2019 10:26 AM CDT) [facility] gist Method Time Signature Aspartate 19 8 - 43 12/28/2019 CNFL Aminotransferase U/L 10:47 AM CDT (AST), P Specimen Anatomical Collection Method Collection Time Receive d Time (Source) Location / / Volume Laterality Blood (Blood, 12/28/2019 10:26 12/28/2019 Venous) AM CDT 10:28 AM CDT Velma Munson APRN C.N.P. LAB BLOOD ADD-ON Performing Organization Address City/State/ZIP Code Phon e Number [facility]- [address] [place] [address] [place] [address] System [address] documented in this encounter Visit Diagnoses Diagnosis Arthritis Rheumatoid (HCC) - Primary documented in this encounter Additional Health Concerns Assessment Noted Time PHQ-9 Depression Total Score: 15 04/21/2018 1:00 PM CS T documented as of this encounter Care Teams Manager Fast Food Relationship Specialty Start Date End Date Elsewhere, Pcp PCP - General Internal Medicine 10/22/19 documented as of this encounter
--- OUTSIDE RECORDS SUMMARY | 2022-02-16 15:03 | XMS_ITS | Encounter Summary ---
:1970 Author Organization [facility] Address [address] [place] [address] Care Team Providers Name Role Phone Elsewhere, Pcp Primary Care Provider Unavailable Encounter Details Date Type Department Care Team Description 12/28/2019 Hospital Encounter Department of Velma Munson Rheumatoid Laboratory Medicine LONG Schwartz C.N [facility] ([facility]) in [place] [address] [facility] [phone] [place], [place] (Work) [phone] Social History Tobacco Use [...] AM CDT 10:28 AM CDT Jorge Polo APRNNLennoxPLennox LAB BLOOD ADD-ON Performing Organization Address City/State/ZIP Code Phon e Number [facility]- [address] [place] [address] [place] [address] System [address] CRP (C-Reactive Protein) (12/28/2019 10:26 AM CDT) P athologist Signature C-Reactive 3.8 <=8.0 mg/L 12/28/2019 [facility] Protein (CRP), 10:47 AM CDT P Specimen Anatomical Collection Method Collection Time Receive d Time (Source) Location / / Volume Laterality Blood (Blood, 12/28/2019 10:26 12/28/2019 Venous) AM CDT 10:28 AM CDT Velma Munson APRN, Karlene.N.P. LAB BLOOD ADD-ON Performing Organization Address [facility] Phon e Number [address] [address] [place] [address] System in [address] Sedimentation Rate (12/28/2019 10:26 AM CDT) [...] Karlene.N.P. LAB BLOOD ADD-ON Performing Organization Address [facility] Phon e Number [address] [address] [place] [address] System in [address] Creatinine with Estimated GFR (12/28/2019 10:26 AM CDT) P athologist Signature Creatinine 0.71 0.59 - 12/28/2019 CNFL 1.04 mg/dL 10:47 AM CDT eGFR-Black/Afric >90 >=60 12/28/2019 CNFL an Cyp[place] mL/min/BSA 10:47 AM CDT Comment: ----ADDITIONAL INFORMATION---- [...] Karlene.N.P. LAB BLOOD ADD-ON Performing Organization Address [facility] Phon e Number [address] [address] [place] [address] System in [address] AST (Aspartate Aminotransferase) (12/28/2019 10:26 AM CDT) [facility] Method Time Signature Aspartate 19 8 - 43 12/28/[address] [facility] Aminotransferase U/L 10:47 AM CDT (AST), P Specimen Anatomical Collection Method Collection Time Receive d Time (Source) Location / / Volume Laterality Blood (Blood, 12/28/2019 10:26 12/28/2019 Venous) AM CDT 10:28 AM CDT Velma Munson APRN, C.N.P. LAB BLOOD ADD-ON Performing Organization Address [facility] Phon e Number [address] [address] [place] [address] System in [address] documented in this encounter Visit Diagnoses Diagnosis Arthritis Rheumatoid (HCC) documented in this encounter Additional Health Concerns Assessment Noted Time PHQ-9 Depression Total Score: 15 04/21/2018 1:00 PM CS T documented as of this encounter Care Teams Non Destructive Testing Scientist Relationship Specialty Start Date End Date Elsewhere, Pcp PCP - General Internal Medicine 10/22/19 documented as of this encounter
--- OUTSIDE RECORDS SUMMARY | 2022-02-16 15:03 | XMS_ITS | Encounter Summary ---
:1970 Author Organization [facility] Address [address] [place] [address] Care Team Providers Name Role Phone Unavailable Primary Care Provider Unavailable Reason for Visit Outpatient (Routine) - Closed Specialty Diagnoses / Procedures Referred By Contact Refer red To Contact Dermatology Dayana Sweeney [facility] [address] [place] [phone] Referral ID Status Reason Start Date Expiration Date Visits Requ ested Visits Authorized [id number] Closed 09/05/2018 09/05/2019 1 1 Encounter Details Date Type Department Care Team Description 01/02/2019 Office Visit Department of Dayana Sweeney (Gabrielle corral Dx); Dermatology césar Gonzales M.D. Hyperpigmentation Post Inflammatory [place], [place] [address] [facility] [address] [place] [phone] Social History Tobacco Use Types Packs/Day Years [...] performed and was positive to the following: -3-lbpx-Uhkdklmybzd formaldehyde resin 1% (2), Benzalkonium chloride (2), [...] C. The patient obtained this from the [facility] and used it twice daily for [...] her bilateral cheeks and extending to her pentecostal areas. Left forehead with ill-defined and irregularly-shaped [...] referral to Dr. Fidel Rivas in the [facility]. I recommend that she continue with diligent [...] to the patient by letter. Patientgiven pamphlet PL2376. All questions answered. PATIENT EDUCATION Ready to learn. No apparent learning barriers were identified. Learning preferences include listening. Explained diagnosis and treatment plan; patient/guardian of patient expressed understanding of thecontent. documented in this encounter Plan of Treatment Not on filedocumented as of this encounter Procedures Procedure Name Priority Date/Time Associated Diagnosis Comme [facility] DERMATOPATHOLOGY Routine 01/02/2019 8:39 AM Resul ts [...] Participated in Ana Maria Smith, 01/08/2019 the MLennoxDLennox-Pathology 4:31 PM Interpretation Fellow CDT Report Janette Hough, 01/08/2019 electronically M.D. 4:31 PM signed by CDT 01/08/2019 4:31 PM CDT Interpretation FINAL DIAGNOSIS 01/08/2019 A. ??Right forehead, Skin punch biopsy: ??Increased basal 4:31 PM keratinocyte melanin pigment and superficial dermal CDT melanophages COMMENT Clinical photo and clinical note reviewed. ??Histiocytes containing melanin are seen in the superficial dermis, as confirmed with Veronica-Adonay stain. ??Iron stain is unremarkable. ??Multiple tissue [...] Organization Address City/State/ZIP Code Phon e Number [facility] - 200 [place], [place] [address] [facility] documented in this encounter Visit Diagnoses Diagnosis Melasma - Primary Hyperpigmentation Post Inflammatory documented in this encounter Additional Health Concerns Assessment Noted Time PHQ-9 Depression Total Score: 15 04/21/2018 1:00 PM CS T documented as of this encounter
--- OUTSIDE RECORDS SUMMARY | 2022-02-16 15:03 | XMS_ITS | Encounter Summary ---
:1970 Author Organization [facility] Address [address] [place] [address] Care Team Providers Name Role Phone Unavailable [...]
--- OUTSIDE RECORDS SUMMARY | 2022-02-16 15:03 | XMS_ITS | Encounter Summary ---
:1970 Author Organization [facility] Address [address] [place] [address] Care Team Providers Name Role Phone Elsewhere, Pcp Primary Care Provider Unavailable Reason for Visit Reason Comments Med Refill Encounter Details Date Type Department Care Team Description 11/16/2019 Refill Division of Rheumatology in Smita Munson sa, APRN, Med Refill [place], [place] C.N.P. [address] [facility] [address] [place] [address] [place] [address] [phone] (Wo rk) Social History Tobacco Use Types [...] or relatives? How often do you attend jehovah's witness or More than 4 times per year 11/16/2021 voodoo services? Do you belong to any clubs or No 11/16/2021 organizations such as jehovah's witness groups, unions, fraternal or athletic groups, or [...] Rheum visit: 01/02/2019 with Velma Munson APRN, [facility] Future office [...] documented as of this encounter Care Teams Oceanography Teacher Relationship Specialty Start Date End Date Elsewhere, Pcp PCP - General Internal Medicine 10/22/19 documented as of this encounter
--- OUTSIDE RECORDS SUMMARY | 2022-02-16 15:03 | XMS_ITS | Encounter Summary ---
:1970 Author Organization [facility] Address [address] [place] [address] Care Team Providers Name Role Phone Elsewhere, Pcp Primary Care Provider Unavailable Encounter Details Date Type Department Care Team Description 01/31/2020 Clinical Communication Division of [facility] Elodia Smith [facility] in [address] [place] [address] [place] [phone] [place], [place] [phone] (Work) [phone] Social History Tobacco Use Types Packs/Day Years [...] Route reply to: luiz Reyez Contact Number: [phone] documented in this encounter Plan of Treatment Not on filedocumented as of this encounter Visit Diagnoses Not on filedocumented in this encounter Additional Health Concerns Assessment Noted Time PHQ-9 Depression Total Score: 15 04/21/2018 1:00 PM CS T documented as of this encounter Care Teams Therapeutic Consultant Relationship Specialty Start Date End Date Elsewhere, Pcp PCP - General Internal Medicine 10/22/19 documented as of this encounter
--- OUTSIDE RECORDS SUMMARY | 2022-02-16 15:03 | XMS_ITS | Encounter Summary ---
:1970 Author Organization [facility] Address [address] [place] [address] Care Team Providers Name Role Phone Unavailable Primary Care Provider Unavailable Reason for Visit Reason Comments Drug Screen [facility] Encounter Details Date Type Department Care Team Description 09/06/2018 Clinical Support Department of Ana Cristina Carballo Drug Scre en (Primary Occupational Medicine Alex Jain, M .P.H. Dx) in [facility] [address] [place] [phone] Social History Tobacco Use Types Packs/Day Years [...] or relatives? How often do you attend anabaptist or More than 4 times per year 11/16/2021 anglican services? Do you belong to any clubs or No 11/16/2021 organizations such as anabaptist groups, unions, fraternal or athletic groups, or [...] of this encounter Progress Notes Keesha Lopez L.PLennoxN. - 09/06/2018 2:00 PM CDT Pre employment [...]
--- OUTSIDE RECORDS SUMMARY | 2022-02-16 15:03 | XMS_ITS | Encounter Summary ---
:1970 Author Organization [facility] Address [address] [place] [address] Care Team Providers Name Role Phone Elsewhere, Pcp Primary Care Provider Unavailable Reason for Referral Outpatient (Routine) - Closed Specialty Diagnoses / Procedures Referred By Contact Refer red To Contact Rheumatology [facility] C.N.P. [address] [place] [address] Referral ID Status Reason Start Date Expiration Date Visits Requ ested Visits Authorized [id number] Closed 01/10/2020 01/09/2021 1 1 utpatient (Routine) - Closed Specialty Diagnoses / Procedures Referred By Contact Refer red To Contact Diagnoses Arthritis Inflammatory (HCC) Bursitis Trochanteric Right [facility] Procedures RHU Non-Guided Aspiration/Injection - Large Joint C.N.P. 200 [place], [place] [phone] Referral ID Status Reason Start Date Expiration Date Visits Requ ested Visits Authorized [id number] Closed 01/10/2020 01/09/2021 1 1 Reason for Visit Appointment Request (Routine) - Closed Specialty Diagnoses / Procedures Referred By Contact Refer red To Contact Rheumatology Diagnoses Arthritis Rheumatoid (HCC) Referral ID Status Reason Start Date Expiration Date Visits Requ ested Visits Authorized [id number] Closed 12/14/2019 12/13/2020 1 1 Encounter Details Date Type Department Care Team Description 01/10/2020 Telemedicine Division of Velma Munson Arthritis In flammatory (HCC) (Primary Dx); Rheumatology in LLONG, JorgeNLennoxP. Bursitis Trochanteric Right; [place], [place] [address] [facility] High Risk Medication [address] [place] [phone] Social History Tobacco Use Types Packs/Day Years [...] real-time audio/video technology by Velma Munson APRN, C.N.PLennox in [facility] to the patient at home. HISTORY OF [...] but on a reevaluation later by a sponge press operator the diagnosis of mixed connective tissue [...] a corticosteroid injection to be done in [place] into her right trochanteric bursa. #3 High Risk Medication Last Plaquenil eye exam was August 11, 2018. No eye toxicity noted. She is due now. I have ordered a Plaquenil eye exam to be done in [place]. I will plan to touch base with [...] Results AST (Aspartate Aminotransferase) (05/21/2020 7:43 AM ROUGE MILLER) Patholo gist Method Time Signature Aspartate 22 8 - 43 05/21/2020 CNFL Aminotransferase U/L 8:04 AM ROUGE MILLER (AST), P Specimen Anatomical Collection Method Collection Time Receive d Time (Source) Location / / Volume Laterality Blood (Blood, 05/21/2020 7:43 AM 05/21/19 7:44 Venous) ROUGE MILLER AM ROUGE MILLER Karlene Polo APRN.N.P. LAB BLOOD ADD-ON Performing Organization Address [facility] Phon e Number [address] [address] [place] [address] System [address] Creatinine with Estimated GFR (05/21/2020 7:43 AM ROUGE MILLER) P athologist Signature Creatinine 0.78 0.59 - 05/21/2020 CNFL 1.04 mg/dL 8:04 AM ROUGE MILLER eGFR-Black/Afric >90 >=60 05/21/2020 CNFL an Rwandan mL/min/BSA 8:04 AM ROUGE MILLER Comment: ----ADDITIONAL INFORMATION---- Estimated GFR calculated using the 2009 CKD_EPI creatinine equation. eGFR Non-Black/ >90 >=60 mL/min/BSA 05/21/2020 8:04 AM ROUGE MILLER CNFL Comment: ----ADDITIONAL INFORMATION---- Estimated GFR calculated using the 2009 CKD_EPI creatinine equation. Specimen Anatomical Collection Method Collection Time Receive d Time (Source) Location / / Volume Laterality Blood (Blood, 05/21/2020 7:43 AM 05/21/19 7:44 Venous) ROUGE MILLER AM ROUGE MILLER Karlene Polo APRN.N.P. LAB BLOOD ADD-ON Performing Organization Address [facility] Phon e Number [address] [address] [place] [address] System [place] [address] Bl CRP (C-Reactive Protein) (05/21/2020 7:43 AM ROUGE MILLER) P athologist Signature C-Reactive 3.3 <=8.0 mg/L 05/21/2020 CNFL Protein (CRP), 8:04 AM ROUGE MILLER P Specimen Anatomical Collection Method Collection Time Receive d Time (Source) Location / / Volume Laterality Blood (Blood, 05/21/2020 7:43 AM 05/21/19 7:44 Venous) ROUGE MILLER AM ROUGE MILLER Velma Munson APRN, C.N.P. LAB BLOOD ADD-ON Performing Organization Address City/[facility] Phon e Number [address] [address] [place] [address] System [address] Sedimentation Rate (05/21/2020 7:43 AM ROUGE MILLER) Analysis Performed At Patho logist Time Signature Sedimentation 10 0 - 29 05/21/2020 CNFL Rate, B mm/1 h 8:32 AM ROUGE MILLER Specimen Anatomical Collection Method Collection Time Receive d Time (Source) Location / / Volume Laterality Blood (Blood, 05/21/2020 7:43 AM 05/21/19 7:44 Venous) ROUGE MILLER AM ROUGE MILLER Velma Munson APRN, C.N.P. LAB BLOOD ADD-ON Performing Organization Address City/[facility] Code Phon e Number [address] [address] [place] [address] CBC with Differential, Blood (05/21/2020 7:43 AM ROUGE MILLER) P athologist Signature Hemoglobin 14.3 11.6 - 05/21/2020 CNFL 15.0 g/dL 7:51 AM ROUGE MILLER Hematocrit 43.6 35.5 - 05/21/2020 CNFL 44.9 % 7:51 AM ROUGE MILLER Erythrocytes 5.09 3.92 - 05/21/2020 CNFL 5.13 7:51 AM ROUGE MILLER x10(12)/L MCV 85.7 78.2 - 05/21/2020 CNFL 97.9 fL 7:51 AM ROUGE MILLER RBC Distrib Width 13.4 12.2 - 05/21/2020 CNFL 16.1 % 7:51 AM ROUGE MILLER Platelet Count 275 157 - 371 05/21/2020 CNFL x10(9)/L 7:51 AM ROUGE MILLER Leukocytes 8.2 3.4 - 9.6 05/21/2020 CNFL x10(9)/L 7:51 AM ROUGE MILLER Neutrophils 5.79 1.56 - 05/21/2020 CNFL 6.45 7:51 AM ROUGE MILLER x10(9)/L Lymphocytes 1.81 0.95 - 05/21/2020 CNFL 3.07 7:51 AM ROUGE MILLER x10(9)/L Monocytes 0.48 0.26 - 05/21/2020 CNFL 0.81 7:51 AM ROUGE MILLER x10(9)/L Eosinophils 0.10 0.03 - 05/21/2020 CNFL 0.48 7:51 AM ROUGE MILLER x10(9)/L Basophils 0.04 0.01 - 05/21/2020 CNFL 0.08 7:51 AM ROUGE MILLER x10(9)/L Specimen Anatomical Collection Method Collection Time Receive d Time (Source) Location / / Volume Laterality Blood (Blood, 05/21/2020 7:43 AM 05/21/19 7:44 Venous) ROUGE MILLER AM ROUGE MILLER Velma Munson APRN C.N.P. LAB BLOOD ADD-ON Performing Organization Address City/State/[facility] Code Phon e Number [facility]- [address] [place] [address] [place] [address] [place] [address] System [address] documented in this encounter Visit Diagnoses Diagnosis Arthritis Inflammatory (HCC) - Primary Bursitis Trochanteric Right High Risk Medication documented in this encounter Additional Health Concerns Assessment Noted Time PHQ-9 Depression Total Score: 15 04/21/2018 1:00 PM CS T documented as of this encounter Care Teams Layout Inspector Relationship Specialty Start Date End Date Elsewhere, Pcp PCP - General Internal Medicine 10/22/19 documented as of this encounter
--- OUTSIDE RECORDS SUMMARY | 2022-02-16 15:03 | XMS_ITS | Encounter Summary ---
:1970 Author Organization [facility] Address [address] [place] [address] Care Team Providers Name Role Phone Elsewhere, Pcp Primary Care Provider Unavailable Reason for Visit Reason Comments P2 Flare in Symptoms Encounter Details Date Type Department Care Team Description 01/30/2020 Clinical Division of Velma Munson P2 Flare in Communication Rheumatology in L, SOUNDSCRIBER MECHANIC, C.N.P. Symptoms [place], [place] [address] [facility] [address] [place] [phone] Social History Tobacco Use Types Packs/Day Years [...] More than 4 times per year 11/16/2021 mormon services? Do you belong to any clubs [...] documented as of this encounter Care Teams Hog Operator Relationship Specialty Start Date End Date Elsewhere, Pcp PCP - General Internal Medicine 10/22/19 documented as of this encounter
--- OUTSIDE RECORDS SUMMARY | 2022-02-16 15:03 | XMS_ITS | Encounter Summary ---
:1970 Author Organization [facility] Address [address] [place] [address] Care Team Providers Name Role Phone Elsewhere, Pcp Primary Care Provider Unavailable Encounter Details Date Type Department Care Team Description 10/26/2019 Hospital Encounter Department of Employer Based, [facility] For Laboratory Medicine Covid Serology Screen ing For Other in [place], [facility] [address] [place] [phone] Social History Tobacco Use Types Packs/Day [...] Total Antibody, Serum (10/26/2019 9:43 AM CDT) [facility] Method Time Signature SARS-CoV-2 Negative Negative 10/26/2019 [...] was performed using the [employer] El ecsys [id number] Reagent assay from [employer], which has received Emergency Use Authori zation(EUA) by the U.S. Food and Drug Administration . Fact sheets for this Emergency Use Autho rization (EUA) assay can be found at the following link s: For Healthcare Providers: https://www.fda.gov/media/598207/downloa d For Patients: https://www.fda.gov/media/075754/downloa d Specimen Anatomical Collection Method Collection Time Receive d Time (Source) Location / / Volume Laterality Blood (Blood, 10/26/2019 9:43 AM 10/26/19 20 2:40 Venous) CDT PM CDT Covid Serology Testing Employer Based LAB MICROBIOLOGY - BLOOD ORDERABLES Performing Organization Address City/State/[facility] Code Phon e Number [facility]- [address] [place] [phone] [facility] [place] [address] System [address] documented in this encounter Visit Diagnoses Diagnosis Encounter For Screening For Other Viral Diseases (COVID-19) documented in this encounter Additional Health Concerns Assessment Noted Time PHQ-9 Depression Total Score: 15 04/21/2018 1:00 PM CS T documented as of this encounter Care Teams Flight Inspector Relationship Specialty Start Date End Date Elsewhere, Pcp PCP - General Internal Medicine 10/22/19 documented as of this encounter
--- OUTSIDE RECORDS SUMMARY | 2022-02-16 15:03 | XMS_ITS | Encounter Summary ---
:1970 Author Organization [facility] Address [address] [place] [address] Care Team Providers Name Role Phone Unavailable [...]
--- OUTSIDE RECORDS SUMMARY | 2022-02-16 15:03 | XMS_ITS | Encounter Summary ---
:1970 Author Organization [facility] Address [address] [place] [address] Care Team Providers Name Role Phone Unavailable Primary Care Provider Unavailable Reason for Visit Reason Comments MRO Review [facility] Encounter Details Date Type Department Care Team Description 09/07/2018 Office Visit Department of Occupational Ana Cristina Carballo, Drug Screen Medicine in [place], M.P. H. [address] [phone] (Wo rk) Social History Tobacco Use Types [...] encounter Progress Notes Keesha Lopez L.PLennoxN. - 09/07/2018 7:00 AM CDT MRO Review for [facility]. documented in this encounter Plan of Treatment Not on filedocumented as of this encounter Visit Diagnoses Diagnosis Drug Screen documented in this encounter Additional Health Concerns Assessment Noted Time PHQ-9 Depression Total Score: 15 04/21/2018 1:00 PM CS T documented as of this encounter
--- OUTSIDE RECORDS SUMMARY | 2022-02-16 15:03 | XMS_ITS | Encounter Summary ---
:1970 Author Organization [facility] Address [address] [place] [address] Care Team Providers Name Role Phone Unavailable Primary Care Provider Unavailable Encounter Details Date Type Department Care Team Description 09/19/2018 Orders Only Division of Rheumatology in Smita Munson [place], [place] COMMISSIONING ENGINEER, C.N.P. [address] [facility] [address] [place] [address] [place], [place] [phone] (Wo rk) Social History Tobacco Use Types [...] or slept in a residential (including now)? Sex Assigned at Date Recorded Female 01/25/2018 11:49 AM CDT documented as of this encounter Plan of Treatment Not on filedocumented as of this encounter Visit Diagnoses Not on filedocumented in this encounter Additional Health Concerns Assessment Noted Time PHQ-9 Depression Total Score: 15 04/21/2018 1:00 PM CS T documented as of this encounter
--- OUTSIDE RECORDS SUMMARY | 2022-02-16 15:03 | XMS_ITS | Encounter Summary ---
:1970 Author Organization [facility] Address [address] [place] [address] Care Team Providers Name Role Phone Unavailable Primary Care Provider Unavailable Reason for Visit Outpatient (Routine) - Closed Specialty Diagnoses / Procedures Referred By Contact Refer red To Contact Rheumatology Velma Munson APRN, [facility] C.N.P[facility] [address] [place] [address] Referral ID Status Reason Start Date Expiration Date Visits Requ ested Visits Authorized [id number] Closed 08/23/2018 08/23/2019 1 1 Encounter Details Date Type Department Care Team Description 01/02/2019 Office Visit Division of Velma Munson Arthritis In flliguoritory ([facility]) (Primary Dx); Rheumatology in LLONG, C.N.P. Bursitis Trochanteric Right; [place], [place] [address] [facility] High Risk Medication [address] [place] [phone] Social History Tobacco Use Types Packs/Day [...] Progress Notes Velma Munson, LONG, C.N.P. - 01/02/2019 3:00 PM CDT SUBJECTIVE CHIEF [...] but on a reevaluation later by a factorer the diagnosis of mixed connective tissue disease [...] a corticosteroid injection to be done in [place] into her right trochanteric bursa. #3 High Risk Medication She had her Plaquenil eye screening done by [facility] professionals. I do not have these records. I will have my service secretary contact them for the results. I [...]
--- OUTSIDE RECORDS SUMMARY | 2022-02-16 15:03 | XMS_ITS | Encounter Summary ---
:1970 Author Organization [facility] Address [address] [place] [address] Care Team Providers Name Role Phone Unavailable Primary Care Provider Unavailable Reason for Visit Reason Comments Symptom Assessment heart fluttering Encounter Details Date Type Department Care Team Description 09/20/2019 Clinical Communication Division of Pineda Espinoza om Assessment Rheumatology in Cam Jain R.N. (heart fluttering) [place], [place] [address] [facility] [address] [place] [phone] Social History Tobacco Use Types Packs/Day Years [...]
--- OUTSIDE RECORDS SUMMARY | 2022-02-16 15:03 | XMS_ITS | Encounter Summary ---
:1970 Author Organization [facility] Address [address] [place] [address] Care Team Providers Name Role Phone Unavailable Primary Care Provider Unavailable Encounter Details Date Type Department Care Team Description 01/02/2019 Hospital Encounter Department of Velma Munson Laboratory Medicine L, CARAMEL CANDY MAKER HELPER, C.N .P. Inflammatory (HCC) and Pathology, [address] [place] [address] in [facility] [address] [place] [phone] [place] [address] (Work) [place], [place] [phone] [address] (Fax) [phone] Social History Tobacco Use Types Packs/Day Years [...] or relatives? How often do you attend lutheran or More than 4 times per year 11/16/2021 yazidism services? Do you belong to any clubs or No 11/16/2021 organizations such as lutheran groups, unions, fraternal or athletic groups, or [...] AST (Aspartate Aminotransferase) (01/02/2019 9:45 AM CDT) Patholo gist Method Time Signature Aspartate 17 8 - 43 01/02/2019 Aminotransferase U/L 12:22 PM CDT (AST), S Specimen Anatomical Collection Method Collection Time Receive d Time (Source) Location / / Volume Laterality Blood (Blood, 01/02/2019 9:45 AM 01/03/20 19 Venous) CDT 10:06 AM CDT Velma Munson APRN, Karlene.N.P. LAB BLOOD ADD-ON Performing Organization Address City/[facility] Phon e Number [facility] - [address] Creatinine with Estimated GFR (01/02/2019 9:45 AM CDT) athologist Signature Creatinine 0.83 0.59 - 01/02/2019 1.04 mg/dL 12:22 PM CDT eGFR-Non 84 >=60 01/02/2019 Black/ mL/min/BSA 12:22 PM CDT German Comment: ----ADDITIONAL INFORMATION---- Estimated GFR calculated using [...] C.N.P. LAB BLOOD ADD-ON Performing Organization Address [facility] Phon e Number [facility] - [address] CRP (C-Reactive Protein) (01/02/2019 9:45 AM CDT) athologist Signature C-Reactive <3.0 <=8.0 mg/L 01/02/2019 Protein (CRP), 12:22 PM CDT S Specimen Anatomical Collection Method Collection Time Receive d Time (Source) Location / / Volume Laterality Blood (Blood, 01/02/2019 9:45 AM 01/03/20 19 Venous) CDT 10:06 AM CDT Eric Polo APRNP. LAB BLOOD ADD-ON Performing Organization Address City/[facility]/ZIP Code Phon e Number [facility] - [address] [place] [phone] [address] [facility] Sedimentation Rate (01/02/2019 9:45 AM CDT) Analysis Performed At Patho logist Time Signature Sedimentation 1 0 - 29 01/02/2019 Rate, B mm/1 h 11:18 AM CDT Specimen Anatomical Collection Method Collection Time Receive d Time (Source) Location / / Volume Laterality Blood (Blood, 01/02/2019 9:45 AM 01/03/20 19 Venous) CDT 10:06 AM CDT Velma Munson APRN, C.N.P. LAB BLOOD ADD-ON Performing Organization Address [facility] Phon e Number [facility] - [address] [place] [address] [facility] CBC with Differential, Blood (01/02/2019 9:45 AM [...] Organization Address City/State/ZIP Code Phon e Number [facility] - [address] documented in this encounter Visit Diagnoses Diagnosis Arthritis Inflammatory (HCC) documented in this encounter Additional Health Concerns Assessment Noted Time PHQ-9 Depression Total Score: 15 04/21/2018 1:00 PM CS T documented as of this encounter
--- OUTSIDE RECORDS SUMMARY | 2022-02-16 15:04 | XMS_ITS | Encounter Summary ---
:1970 Author Organization [facility] Address [address] [place] [address] Care Team Providers Name Role Phone Unavailable Primary Care Provider Unavailable Encounter Details Date Type Department Care Team Description 05/24/2018 Clinical Communication Center for Sleep Mimi Hatch, Medicine in [place], [place] [address] [facility] [address] [place] [address] [phone] Social History Tobacco Use Types Packs/Day Years [...] encounter Miscellaneous Notes Telephone Encounter - Mimi Hatch Aung RLennoxN. - 05/24/2018 2:12 PM CST INFORMATION DISCUSSED [...] CBT appointment. She can be reached at [phone]. Can you please put order through for [...] references were used: provider Gigi Mcbride M.D. SPLICER documented in this encounter Plan of Treatment Not on filedocumented as of this encounter Visit Diagnoses Not on filedocumented in this encounter Additional Health Concerns Assessment Noted Time PHQ-9 Depression Total Score: 15 04/21/2018 1:00 PM CS T documented as of this encounter
--- OUTSIDE RECORDS SUMMARY | 2022-02-16 15:04 | XMS_ITS | Encounter Summary ---
:1970 Author Organization [facility] Address [address] [place] [address] Care Team Providers Name Role Phone Unavailable Primary Care Provider Unavailable Reason for Visit MRI/CAT/PET Scan (Routine) - Closed Specialty Diagnoses / Procedures Referred By Contact Refer red To Contact Radiology Diagnoses Pain Hip Left [facility] Procedures MR Pelvis without IV Contrast MR Hip Left without and with IV Contrast IN MRI LWR EXT JOINT WO/W CNTRST HC MRI LWR EXT JOINT WO/W CNTRST IN MRI LWR EXT JOINT WO/W CNTRST IN MRI PELVIS WO CNTRST HC MRI PELVIS WO CNTRST C.N.P. IN MRI PELVIS WO CNTRST [address] [place] [phone] Referral ID Status Reason Start Date Expiration Date Visits Requ ested Visits Authorized [id number] Closed 08/23/2018 08/23/2019 1 1 Encounter Details Date Type Department Care Team Description 08/25/2018 Hospital Encounter Department of Velma Munson Pa in Hip Left Radiology, [facility] LONG, C.N.P. [facility], in [address] [place] [address] [place] [address] [place], [place] [phone] (Wo rk) [phone] Social History Tobacco Use Types Packs/Day Years [...] 11/16/2021 organizations such as islam groups, unions, fraIllumio or athletic groups, or school groups? How [...] on the MRI dated 09/21/2017. Velma Munson APRN C.N.P. IMG MRI PROCEDURES documented in this encounter Visit Diagnoses Diagnosis Pain Hip Left documented in this encounter Additional Health Concerns Assessment Noted Time PHQ-9 Depression Total Score: 15 04/21/2018 1:00 PM CS T documented as of this encounter
--- OUTSIDE RECORDS SUMMARY | 2022-02-16 15:04 | XMS_ITS | Encounter Summary ---
:1970 Author Organization [facility] Address [address] [place] [address] Care Team Providers Name Role Phone Unavailable Primary Care Provider Unavailable Reason for Visit Reason Comments Med Refill Encounter Details Date Type Department Care Team Description 07/21/2018 Refill Division of Rheumatology in Smita Munson sa, APRN, Med Refill [place], [place] C.N.P. [address] [place] [address] [place] [address] [place] [address] [phone] (Wo rk) Social History Tobacco Use Types [...] slept in a skilled nursing (including now)? Sex Assigned at Date Recorded Female 01/25/2018 11:49 AM CDT documented as of this encounter Plan of Treatment Not on filedocumented as of this encounter Visit Diagnoses Not on filedocumented in this encounter Additional Health Concerns Assessment Noted Time PHQ-9 Depression Total Score: 15 04/21/2018 1:00 PM CS T documented as of this encounter
--- OUTSIDE RECORDS SUMMARY | 2022-02-16 15:04 | XMS_ITS | Encounter Summary ---
:[address] [facility] Address [address] [place] [address] Care Team Providers Name Role Phone Unavailable Primary Care Provider Unavailable Encounter Details Date Type Department Care Team Description 08/17/2018 Clinical Communication Department of [facility] Dermatology in T, R.N. [place], [place] [address] [facility] [address] [place] [phone] Social History Tobacco Use Types Packs/Day Years [...]
--- OUTSIDE RECORDS SUMMARY | 2022-02-16 15:04 | XMS_ITS | Encounter Summary ---
:1970 Author Organization [facility] Address [address] [place] [address] Care Team Providers Name Role Phone Unavailable Primary Care Provider Unavailable Reason for Visit Reason Comments Med Refill Encounter Details Date Type Department Care Team Description 06/30/2018 Refill Division of Rheumatology in [facility] Tiburcio welsh M.D. Med Refill [place], [place] [address] [facility] [address] [place] [address] [place] [address] [phone] Social History Tobacco Use Types Packs/Day Years [...] and send the refill to her pharmacy. L ENGINEERING PROFESSOR documented in this encounter Plan of Treatment Not on filedocumented as of this encounter Visit Diagnoses Not on filedocumented in this encounter Additional Health Concerns Assessment Noted Time PHQ-9 Depression Total Score: 15 04/21/2018 1:00 PM CS T documented as of this encounter
--- OUTSIDE RECORDS SUMMARY | 2022-02-16 15:04 | XMS_ITS | Encounter Summary ---
:1970 Author Organization [facility] Address [address] [place] [address] Care Team Providers Name Role Phone Unavailable Primary Care Provider Unavailable Encounter Details Date Type Department Care Team Description 08/12/2018 Orders Only Department of Vascular Newton Powell , Medicine [facility] [place] [address] [facility] [address] [place] [address] [phone] (Wo rk) Social History Tobacco Use Types [...]
--- OUTSIDE RECORDS SUMMARY | 2022-02-16 15:04 | XMS_ITS | Encounter Summary ---
:1970 Author Organization [facility] Address [address] [place] [address] Care Team Providers Name Role Phone Unavailable Primary Care Provider Unavailable Reason for Visit Outpatient (Routine) - Closed Specialty Diagnoses / Procedures Referred By Contact Refer red To Contact Diagnoses Hyperpigmentation Dayana Sweeney M.D. [facility] Procedures JOSÉ MIGUEL Phototherapy - UVA/UVB - MED Photosensitivity testing [address] [place] [phone] Referral ID Status Reason Start Date Expiration Date Visits Requ ested Visits Authorized [id number] Closed 07/03/2018 07/03/2019 2 2 Encounter Details Date Type Department Care Team Description 08/22/2018 Clinical Support Department of Dermatology Dayana Savage M.D. [address] [place] [phone] in [facility] Irene Dash, L.PLennoxNLennox [address] [place] [phone] Social History Tobacco Use Types Packs/Day [...]
--- OUTSIDE RECORDS SUMMARY | 2022-02-16 15:04 | XMS_ITS | Encounter Summary ---
:1970 Author Organization [facility] Address [address] [place] [address] Care Team Providers Name Role Phone Unavailable Primary Care Provider Unavailable Reason for Visit Reason Onset Date Comments pain 05/19/2018 p1 05/19/2018 Encounter Details Date Type Department Care Team Description 05/19/2018 Clinical Communication Division of Velma Munson in; p1 Rheumatology in L, DIVERSIFIED CROPS FARMER, C.N.P. [place], [place] [address] [facility] [address] [place] [phone] [phone] Social History Tobacco Use Types Packs/Day Years [...] Nano Gomes R.N. - 05/19/2018 3:48 PM MORNING BABYSITTER INFORMATION DISCUSSED Patient was relayed Velma Munson ALMOND BLANCHER HAND message from today 05/19/2018. PLAN Disposition/Recommendation:Patient will do as recommended and no improvements by Tuesday or Tuesday she will call back. Education: patient/caller able to teach back Caller agreeable to plan of care: yes The following references were used: nursing clinical judgement ING BABYSITTER Telephone Encounter - Velma Munson APRN, C.N.P. - 05/19/2018 3:42 PM MORNING BABYSITTER Please have her take ibuprofen 800 mg 3 times a day on a schedule to help with the pain. Velma ING BABYSITTER Telephone Encounter - Nena Delacruz - 05/19/2018 1:45 PM MORNING BABYSITTER Patient called to report she saw Velma Munson this morning and was in a slight amount of pain however, after laying on xray table her lower back is now in a tremendous amount of pain, difficulty walking and moving around. ING BABYSITTER documented in this encounter Plan of Treatment Not on filedocumented as of this encounter Visit Diagnoses Not on filedocumented in this encounter Additional Health Concerns Assessment Noted Time PHQ-9 Depression Total Score: 15 04/21/2018 1:00 PM CS T documented as of this encounter
--- OUTSIDE RECORDS SUMMARY | 2022-02-16 15:04 | XMS_ITS | Encounter Summary ---
:1970 Author Organization [facility] Address [address] [place] [address] Care Team Providers Name Role Phone Unavailable Primary Care Provider Unavailable Reason for Visit Reason Comments Patch Testing Encounter Details Date Type Department Care Team Description 08/23/2018 Clinical Support Department of Dayana Sweeney M.D. [address] [place] [address] Hyperpigmentation Dermatology in [facility], Amanda Gonzales R.N. [address] [place] [phone] [place], [place] [address] [place] [phone] Social History Tobacco Use Types Packs/Day Years [...] test removal and day 3 reading. Supervising oracle wms consultant: Mandy Jennings MD ([phone]). Ordering physician: Dayana Sweeney MD ([phone]). Reviewed instructions to keep the patch test area dry and not to apply creams or lotions to this area. Teaching provided to patient. Barriers to learning identified as none. Preferred learning style is listening. Patient educated about patch testing per patient education pamphlet Patch Testing [id number].Teaching methods included discussion and printed material. Evaluation [...]
--- OUTSIDE RECORDS SUMMARY | 2022-02-16 15:04 | XMS_ITS | Encounter Summary ---
:1970 Author Organization [facility] Address [address] [place] [address] Care Team Providers Name Role Phone Unavailable Primary Care Provider Unavailable Reason for Visit Outpatient (Routine) - Closed Specialty Diagnoses / Procedures Referred By Contact Refer red To Contact Dermatology Diagnoses Vitiligo Left Unspecified Eyelid And Periocular Area [facility] [address] [place] [address] Referral ID Status Reason Start Date Expiration Date Visits V isits Requested Authorized [id number] Closed Specialty 04/13/2018 04/13/2019 1 1 Services Required Encounter Details Date Type Department Care Team Description 06/14/2018 Comprehensive Visit Department of Joel Rubin M.D. Abnormality Pigment (Primary Dx); Dermatology in Dayana Sweeney M.D. [address] [place] [address] Vitiligo Left Unspecified Eyelid And Per iocular Area [place], [place] [address] [place] [address] Social History Tobacco Use Types [...] Of note, she is followed here at [facility] by Rheumatology due to inflammatory arthritis with [...] her bilateral cheeks and extending to her synagogue areas. Leftforehead with ill-defined and irregularly-shaped brown [...] the patient by letter. Patient given pamphlet [id number]. CONSENT Discussed the risks, benefits, alternatives, and the necessity of other members of the healthcare team participating in the procedure. All questions answered and consent given. PATIENT EDUCATION: Ready to learn. No apparent learning barriers were identified. Learning preferences include listening. Explained diagnosis and treatment plan; patient/guardian of patient expressed understanding of thecontent. A total of 40 minutes were spent dibk-yr-nekp with the patient during this encounter with at least 50% spent on counseling, discussing the plan and coordination of care. CT CT Job ID: [id number] CIL INSPECTOR documented in this encounter Plan of Treatment Not on filedocumented as of this encounter Procedures Procedure Name Priority Date/Time Associated Comments Diagnosis CUTANEOUS DIRECT IFA, Routine 06/14/2018 3:04 Abnormality Pigm ent Results for this BIOPSY PM STENCIL INSPECTOR procedure are i n the results section. DERMATOPATHOLOGY Routine 06/14/2018 3:03 Abnormality Pigment R esults for this PM STENCIL INSPECTOR procedure are i n the results section. documented in this encounter Results Cutaneous Direct IFA, Biopsy (06/14/2018 3:04 PM STENCIL INSPECTOR) Component Value Ref Test Analysis Performed At [facility] gist Range Method Time Signature [facility] 9 11:46 LABORATORIES [facility] Report William Lambert, [facility] electronically Alex 9 11:46 LABORATORIES signed by [facility] Interpretation A. ??Left forehead, skin punch biopsy, Immunofluores cence: [facility] IgG: ??Negative 9 11:46 LABORATORIES IgM: ??Discontinuous weak granular basement membrane zone; [facility] few scattered cytoids MAIN CAM PUS [...] reagent. Its performance characteristics were determined by [facility] in a manner consistent with CLIA requirements. This test has not bee n cleared or approved by the U.S. Food and Drug Administration. Specimen (Source) Anatomical Collection Method Collection Time Re ceived Time Location / / Volume Laterality Skin (Left 06/14/2018 3:04 PM forehead) STENCIL INSPECTOR Narrative This result has an attachment that is no t available. Dayana Sweeney M.D. LAB PATH DERM ORDERABLES Performing Organization Address City/State/ZIP Code Phon e Number [facility] LABORATORIES - [address] [place], [place] [address] [facility] Dermatopathology (06/14/2018 3:03 PM [facility] Component Value Ref Test Analysis Performed At [facility] gist Range Method Time Signature 06/19/2018 [facility] 4:20 PM LABORATORIES - [facility] Report Richardson Sosa 06/19/2018 [facility] electronically Alex [place] 4:20 PM LABORATOR IES - signed by [facility] Gross Received in formalin labeled with the patient's name, 06/19/2018 [facility] Description medical record number, and left forehead is a 0.4 x 0.2 4:20 PM LABORATORIES - cm aragon-white portion of skin punch biopsy (half-punch), [facility] excised to a depth of 0.1 cm. ??There is a pale aragon [facility]cmahon CAMP[facility] brown pigmented lesion diffusely in the surface. The specimen is submitted en toto in cassette A1. Grossed by DULCE. Disclaimer This test was developed and its performance characteri stics 06/19/2018 [facility] determined by [facility] in a manner consistent with CLIA 4:20 PM LABORATORIES - requirements. This test has not been cleared or approved b y [facility] the U.S. Food and Drug Administration. CAMPUS Addendum Melan A stain demonstrates normal number of melanocyte s at 06/21/2018 [facility] the basal layer of the epidermis. 2:18 P M LABORATORIES - Signed by Richardson [place] M.D. 06/21/2018 2:18 PM [facility] This test was developed and its performance CAMPUS characteristics determined by [facility] in a manner consistent with CLIA requirements. This test has not been cleared or approved by the U.S. Food and Drug Administration. Comment: REVISED RESULTS Interpretation FINAL DIAGNOSIS 06/21/2018 2:18 PM [facility] A. ??Left forehead, Skin punch biopsy: ??Increased basal [facility] - keratinocyte melanin pigment and superficial dermal melanin [facility] COMMENT Clinical photo reviewed. ??Multiple tissue levels examined. [place] demonstrate the increased basal keratinocyte melanin and superficial dermal melanin deposition. Prussian blue is negative. ??These findings may be seen in melasma or possibly postinflammatory hyperpigmentation. Clinical and pathological correlation is recommended. Specimen (Source) Anatomical Collection Method Collection Time Re ceived Time Location / / Volume Laterality Skin (Left 06/14/2018 3:03 PM forehead) STENCIL INSPECTOR Narrative This result has an attachment that is no t available. Dayana Sweeney M.D. LAB PATH DERM ORDERABLES Performing Organization Address City/State/ZIP Code Phon e Number [facility] LABORATORIES - [address] [place] [address] [facility] documented in this encounter Visit Diagnoses Diagnosis Abnormality Pigment - Primary Vitiligo Left Unspecified Eyelid And Per iocular Area documented in this encounter Additional Health Concerns Assessment Noted Time PHQ-9 Depression Total Score: 15 04/21/2018 1:00 PM CS T documented as of this encounter
--- OUTSIDE RECORDS SUMMARY | 2022-02-16 15:04 | XMS_ITS | Encounter Summary ---
:1970 Author Organization [facility] Address [address] [place] [address] Care Team Providers Name Role Phone Unavailable [...]
--- OUTSIDE RECORDS SUMMARY | 2022-02-16 15:04 | XMS_ITS | Encounter Summary ---
:1970 Author Organization [facility] Address [address] [place] [address] Care Team Providers Name Role Phone Unavailable Primary Care Provider Unavailable Reason for Visit Reason Comments Patch Testing Encounter Details Date Type Department Care Team Description 08/25/2018 Office Visit Department of Patel, Dayana Gonzales M.D. [address] [place] [phone] Hyperpigmentation Dermatology in Son Moses R.N. [address] [place] [phone] [place], [place] [address] [place] [phone] Social History Tobacco Use Types Packs/Day [...] for patch test day 5 reading. Supervising contract consultant: Nano Aragon MD ([phone]). Ordering physician: Dayana Sweeney MD ([phone]). Final day reading of patch testing completed [...] testing per patient education pamphlet Patch Testing [id number]. Teaching methods included discussion and printed material. [...]
--- OUTSIDE RECORDS SUMMARY | 2022-02-16 15:04 | XMS_ITS | Encounter Summary ---
:1970 Author Organization [facility] Address [address] [place] [address] Care Team Providers Name Role Phone Unavailable [...]
--- OUTSIDE RECORDS SUMMARY | 2022-02-16 15:04 | XMS_ITS | Encounter Summary ---
:1970 Author Organization [facility] Address [address] [place] [address] Care Team Providers Name Role Phone Unavailable Primary Care Provider Unavailable Reason for Visit Reason Comments Med Refill Encounter Details Date Type Department Care Team Description 07/11/2018 Refill Division of Rheumatology in Smita Munson sa, APRN, Med Refill [place], [place] C.N.P. [address] [facility] [address] [place] [address] [place] [address] [phone] (Wo rk) Social History Tobacco Use Types [...] Miscellaneous Notes Telephone Encounter - Sawyer Nicholson RDeshawn. - 07/18/2018 8:14 AM CDT Per 07/10/18 [...]
--- OUTSIDE RECORDS SUMMARY | 2022-02-16 15:04 | XMS_ITS | Encounter Summary ---
:1970 Author Organization [facility] Address [address] [place] [address] Care Team Providers Name Role Phone Unavailable Primary Care Provider Unavailable Reason for Referral Outpatient (Routine) - Closed Specialty Diagnoses / Procedures Referred By Contact Refer red To Contact Diagnoses Hyperpigmentation Dayana Sweeney M.D. [facility] Procedures JOSÉ MIGUEL Phototherapy - UVA/UVB - MED Photosensitivity testing [address] [place] [phone] Referral ID Status Reason Start Date Expiration Date Visits Requ ested Visits Authorized [id number] Closed 07/03/2018 07/03/2019 2 2 L GRADER Encounter Details Date Type Department Care Team Description 07/03/2018 Clinical Communication Department of Dayana Sweeney M.D. [place], [place] [address] [facility] [address] [place] [phone] Social History Tobacco Use Types Packs/Day [...] or slept in a usp (including now)? Sex Assigned at Date Recorded [...]
--- OUTSIDE RECORDS SUMMARY | 2022-02-16 15:04 | XMS_ITS | Encounter Summary ---
:1970 Author Organization [facility] Address [address] [place] [address] Care Team Providers Name Role Phone Unavailable Primary Care Provider Unavailable Encounter Details Date Type Department Care Team Description 08/12/2018 Documentation Department of Vascular [place] Powell, [facility] [place] [address] [facility] [address] [place] [phone] (Wo rk) Social History Tobacco Use Types [...]
--- OUTSIDE RECORDS SUMMARY | 2022-02-16 15:04 | XMS_ITS | Encounter Summary ---
:1970 Author Organization [facility] Address [address] [place] [address] Care Team Providers Name Role Phone Unavailable Primary Care Provider Unavailable Encounter Details Date Type Department Care Team Description 07/03/2018 Orders Only Department of Dermatology in You Dayana rudolph M.D. [place], [place] [address] [facility] [address] [place] [phone] (Wo rk) Social History Tobacco Use Types [...]
--- OUTSIDE RECORDS SUMMARY | 2022-02-16 15:04 | XMS_ITS | Encounter Summary ---
:1970 Author Organization [facility] Address [address] [place] [address] Care Team Providers Name Role Phone Unavailable Primary Care Provider Unavailable Encounter Details Date Type Department Care Team Description 06/14/2018 Clinical Communication Division of Velma Munson Rheumatology in L, ZIPPER SETTER, C.N.P. [place], [place] [address] [facility] [address] [place] [phone] Social History Tobacco Use Types Packs/Day Years [...] Nano Gomes R.N. - 06/15/2018 12:19 PM CHAIN MACHINE OPERATOR INFORMATION DISCUSSED Patient was relayed per Dr. [...] following references were used: nursing clinical judgement N MACHINE OPERATOR Telephone Encounter - Nano Gomes R.N. - 06/15/2018 10:34 AM CHAIN MACHINE OPERATOR INFORMATION DISCUSSED Patient reports that that her [...] following references were used: nursing clinical judgement N MACHINE OPERATOR Telephone Encounter - Velma Munson APRN, JorgeN.P. - 06/14/2018 4:05 PM CHAIN MACHINE OPERATOR Please call the patient to verify symptoms. I gave her a prednisone burst and taper last week, with no improvement. N MACHINE OPERATOR Telephone Encounter - Shanti Hinson - 06/14/2018 [...] to what next steps she should take. N MACHINE OPERATOR documented in this encounter Plan of Treatment Not on filedocumented as of this encounter Visit Diagnoses Not on filedocumented in this encounter Additional Health Concerns Assessment Noted Time PHQ-9 Depression Total Score: 15 04/21/2018 1:00 PM CS T documented as of this encounter
--- OUTSIDE RECORDS SUMMARY | 2022-02-16 15:04 | XMS_ITS | Encounter Summary ---
:1970 Author Organization [facility] Address [address] [place] [address] Care Team Providers Name Role Phone Unavailable Primary Care Provider Unavailable Encounter Details Date Type Department Care Team Description 05/19/2018 Hospital Encounter Department of Velma Munson Pa in Low Back Radiology, Luzmaria ALVES C.N.P. [facility], in [address] [place] [address] [place] [phone] [place], [place] [phone] (Wo rk) [phone] Social History Tobacco Use Types Packs/Day Years [...] or this PELVIS BILATERAL (most inpatients AM KENNEL STAFF MEMBER procedu re are in MINIMUM 5 VIEWS and all the results outpatients) section. documented in this encounter Results DX Hips and Pelvis Bilateral 5+ Views (05/19/2018 10:22 AM KENNEL STAFF MEMBER) Anatomical Region Laterality Modality Lower Extremity, Pelvis, Hip, Musculoskeletal RST LOS, Bilat eral Digital Radiography Musculoskeletal ARZ LOS, Muskuloskeletal FLA LOS Specimen (Source) Anatomical Collection Method Collection Time Re ceived Time Location / / Volume Laterality 05/19/2018 10:28 AM KENNEL STAFF MEMBER Impressions 05/19/2018 10:29 AM KENNEL STAFF MEMBER IMPRESSION: ??Minimal scattered degenerative changes of the pelvis and both hips. Right femoral neck bone island. IUD. Lap aroscopic adjustable gastric band, port and tube is partially seen. Narrative 05/19/2018 10:29 AM KENNEL STAFF MEMBER EXAM: ??DX HIPS AND PELVIS BILATERAL 5+ VIEWS Procedure Note Richardson Packer M.D. - 05/19/2018For matting of this note might be different from the original. EXAM: DX HIPS AND PELVIS BILATERAL 5+ EWS IMPRESSION: Minimal scattered degenerati ve changes of the pelvis and both hips. Right femoral neck bone island. IUD. Lap aroscopic adjustable gastric band, port and tube is partially seen. Jorge Polo APRNN.P. IMG DIAGNOSTIC IMAGING P ROCEDURES documented in this encounter Visit Diagnoses Diagnosis Pain Low Back Unspecified documented in this encounter Additional Health Concerns Assessment Noted Time PHQ-9 Depression Total Score: 15 04/21/2018 1:00 PM CS T documented as of this encounter
--- OUTSIDE RECORDS SUMMARY | 2022-02-16 15:04 | XMS_ITS | Encounter Summary ---
:1970 Author Organization [facility] Address [address] [place] [address] Care Team Providers Name Role Phone Unavailable Primary Care Provider Unavailable Reason for Visit Reason Comments Results Encounter Details Date Type Department Care Team Description 05/19/2018 Clinical Communication Division of Velma Munson Rheumatology in , CYTOTECHNOLOGIST SUPERVISOR, C.N.P. [place], [place] [address] [facility] [address] [place] [address] [phone] Social History Tobacco Use Types Packs/Day Years [...] or slept in a fci (including now)? Sex Assigned at Date Recorded Female 01/25/2018 11:49 AM CDT documented as of this encounter Miscellaneous Notes Telephone Encounter - Cam Espinoza R.N. - 05/23/2018 11:41 AM PERSONAL INSURANCE ADVISOR INFORMATION DISCUSSED Message relayed to patient. Patient understood discussion and had no further questions. PLAN Disposition/Recommendation: self-care appropriate at this time Education: patient/caller able to teach back Caller agreeable to plan of care: yes The following references were used: nursing clinical judgement ONAL INSURANCE ADVISOR Telephone Encounter - Velma Munson APRN, C.N.P. - 05/19/2018 4:36 PM PERSONAL INSURANCE ADVISOR Please let the patient know the xrays of her lumbar spine and pelvis did not show any inflammation. There were degenerative changes noted in multiple levels her lumbar spine, pelvis and hips. Velma ONAL INSURANCE ADVISOR documented in this encounter Plan of Treatment Not on filedocumented as of this encounter Visit Diagnoses Not on filedocumented in this encounter Additional Health Concerns Assessment Noted Time PHQ-9 Depression Total Score: 15 04/21/2018 1:00 PM CS T documented as of this encounter
--- OUTSIDE RECORDS SUMMARY | 2022-02-16 15:04 | XMS_ITS | Encounter Summary ---
:1970 Author Organization [facility] Address [address] [place] [address] Care Team Providers Name Role Phone Unavailable Primary Care Provider Unavailable Reason for Visit Reason Comments Med Management Outpatient (Routine) - Closed Specialty Diagnoses / Procedures Referred By Contact Refer red To Contact Pharmacy Diagnoses [facility] - Pharmacogenomics eConsult M.DLennox [address] [place] [phone] Referral ID Status Reason Start Date Expiration Date Visits Requ ested Visits Authorized [id number] Closed 08/18/2018 08/18/2019 1 1 Encounter Details Date Type Department Care Team Description 08/21/2018 Medication Department of Tamir Butcher Clinical R esearch Management Medical Genetics in A, MLennoxDLennox Exam [place], [address] [place], [place] [address] [facility] [address] [place], [place] [phone] (Work) [phone] Social History Tobacco Use Types Packs/Day Years [...] of this encounter Consult Notes Yassine Leal, Pharm.D., R.Ph. - 08/21/2018 10:00 AM CDT SUBJECTIVE REASON FOR CONSULT Patient was referred by Tamir Butcher M.D. as a participant in IRB # [id number] (Utility of Pharmacogenomic Testing in Patients with [...]
--- OUTSIDE RECORDS SUMMARY | 2022-02-16 15:04 | XMS_ITS | Encounter Summary ---
:1970 Author Organization [facility] Address [address] [place] [address] Care Team Providers Name Role Phone Unavailable Primary Care Provider Unavailable Reason for Visit Outpatient (Routine) - Closed Specialty Diagnoses / Procedures Referred By Contact Refer red To Contact Diagnoses Hyperpigmentation Dayana Sweeney M.D. [facility] Procedures JOSÉ MIGUEL Phototherapy - UVA/UVB - MED Photosensitivity testing [address] [place] [phone] Referral ID Status Reason Start Date Expiration Date Visits Requ ested Visits Authorized [id number] Closed 07/03/2018 07/03/2019 2 2 Encounter Details Date Type Department Care Team Description 08/21/2018 Clinical Support Department of Dayana Sweeney M.D. [address] [place] [phone] Hyperpigmentation Dermatology in Cynthia Blackburn R.N. [address] [place] [phone] [place], [place] [address] [place] [phone] Social History Tobacco Use Types Packs/Day Years [...]
--- OUTSIDE RECORDS SUMMARY | 2022-02-16 15:04 | XMS_ITS | Encounter Summary ---
:1970 Author Organization [facility] Address [address] [place] [address] Care Team Providers Name Role Phone Unavailable Primary Care Provider Unavailable Encounter Details Date Type Department Care Team Description 06/09/2018 Orders Only Division of Rheumatology in [place] VP [employer]ETING [employer] SKIN, C.N.P. [address] [facility] [address] [place] [address] [place], [place] [phone] (Wo rk) Social History Tobacco Use Types [...]
--- OUTSIDE RECORDS SUMMARY | 2022-02-16 15:04 | XMS_ITS | Encounter Summary ---
:1970 Author Organization [facility] Address [address] [place] [address] Care Team Providers Name Role Phone Unavailable [...] 12:00 Result s for this EXAM PM CLINICAL TECHNOLOGIST procedure are i n the results section. documented in this encounter Results Face 507-Dermatology Image Exam (06/14/2018 12:00 PM CLINICAL TECHNOLOGIST) Specimen (Source) Anatomical Collection Method Collection Time Re ceived Time Location / / Volume Laterality 06/14/2018 12:00 PM CLINICAL TECHNOLOGIST Narrative [facility]IMS - 06/14/2018 3:44 PM CLINICAL TECHNOLOGIST This order has been created and auto-finalized [...]
--- OUTSIDE RECORDS SUMMARY | 2022-02-16 15:04 | XMS_ITS | Encounter Summary ---
:1970 Author Organization [facility] Address [address] [place] [address] Care Team Providers Name Role Phone Unavailable Primary Care Provider Unavailable Encounter Details Date Type Department Care Team Description 08/22/2018 Hospital Encounter Department of Velma Munson Laboratory Medicine L, LONG, C.N .P. Inflammatory (HCC) and Pathology, [address] [place] [address] in [facility] [address] [place] [phone] [place] [address] (Work) [place], [place] [phone] (Fax) [phone] Social History Tobacco Use Types Packs/Day Years [...] AST (Aspartate Aminotransferase) (08/22/2018 3:25 PM CDT) [facility] Method Time Signature Aspartate 17 8 - 43 08/22/2018 [facility] Aminotransferase U/L 4:25 PM CDT LABORATORIE S - (AST), [facility] Specimen Anatomical Collection Method Collection Time Receive d Time (Source) Location / / Volume Laterality Blood (Blood, 08/22/2018 3:25 PM 08/23/19 19 3:46 Venous) CDT PM CDT Jorge Polo APRNN.P. LAB BLOOD ADD-ON Performing Organization Address City/[facility] Phon e Number [facility] LABORATORIES - 200 [place] [phone] [facility] Creatinine with Estimated GFR (08/22/2018 3:25 PM CDT) Analysis Performed At Patho logist Time Signature Creatinine 0.86 0.59 - 08/22/2018 [facility] 1.04 mg/dL 4:25 PM CDT LABORATORIES [facility] eGFR-Non 81 >=60 08/22/2018 [facility] Black/ mL/min/BSA 4:25 PM CDT LABORATORIES - [facility] Comment: ----ADDITIONAL INFORMATION---- Estimated GFR calculated using the 2009 CKD_EPI creatinine equation. eGFR-Black/ >90 >=60 mL/min/BSA 08/22/2018 4:25 [facility] Mozambican CDT LABORATORIES - [facility] Comment: ----ADDITIONAL INFORMATION---- Estimated GFR calculated using the 2009 CKD_EPI creatinine equation. Specimen Anatomical Collection Method Collection Time Receive d Time (Source) Location / / Volume Laterality Blood (Blood, 08/22/2018 3:25 PM 08/23/19 19 3:46 Venous) CDT PM CDT Karlene Polo APRN.N.P. LAB BLOOD ADD-ON Performing Organization Address City/[facility] Code Phon e Number [facility] LABORATORIES - 200 [place], [place] [address] [facility] CRP (C-Reactive Protein) (08/22/2018 3:25 PM CDT) P athologist Signature C-Reactive 3.2 <=8.0 mg/L 08/22/2018 [facility] Protein (CRP), 4:25 PM CDT LABORATORIES - [facility] Specimen Anatomical Collection Method Collection Time Receive d Time (Source) Location / / Volume Laterality Blood (Blood, 08/22/2018 3:25 PM 08/23/19 19 3:46 Venous) CDT PM CDT Jorge Polo APRNN.P. LAB BLOOD ADD-ON Performing Organization Address City/[facility]/ZIP Code Phon e Number [facility] LABORATORIES - 200 [place] [phone] [facility] Sedimentation Rate (08/22/2018 3:25 PM CDT) [facility] [employer] Method Time Signature Sedimentation 2 0 - 29 08/22/2018 [facility] Rate, B mm/1 h 5:00 PM CDT LABORATORIES - [facility] Specimen Anatomical Collection Method Collection Time Receive d Time (Source) Location / / Volume Laterality Blood (Blood, 08/22/2018 3:25 PM 08/23/19 19 3:46 Venous) CDT PM CDT Jorge Polo APRNNZaira. LAB BLOOD ADD-ON Performing Organization Address [facility] Phon e Number [facility] LABORATORIES - 200 [place], [place] [address] [facility] CBC with Differential, Blood (08/22/2018 3:25 PM CDT) [facility] [employer] Method Time Signature Hemoglobin 14.6 11.6 - 08/22/2018 [facility] 15.0 g/dL 3:53 PM CDT LABORATORIES - [facility] Hematocrit 43.9 35.5 - 08/22/2018 [facility] 44.9 % 3:53 PM CDT LABORATORIES - [facility] Erythrocytes 5.13 3.92 - 08/22/2018 [facility] 5.13 3:53 PM CDT LABORATORIES - x10(12)/L [facility] MCV 85.6 78.2 - 08/22/2018 [facility] 97.9 fL 3:53 PM CDT LABORATORIES - [facility] RBC Distrib Width 13.7 12.2 - 08/22/2018 [facility] 16.1 % 3:53 PM CDT LABORATORIES - [facility] Platelet Count 256 157 - 371 08/22/2018 [facility] x10(9)/L 3:53 PM CDT LABORATORIES - [facility] Leukocytes 7.4 3.4 - 9.6 08/22/2018 [facility] x10(9)/L 3:53 PM CDT LABORATORIES - [facility] Neutrophils 5.16 1.56 - 08/22/2018 [facility] 6.45 3:53 PM CDT LABORATORIES - x10(9)/L [facility] Lymphocytes 1.73 0.95 - 08/22/2018 [facility] 3.07 3:53 PM CDT LABORATORIES - x10(9)/L [facility] Monocytes 0.43 0.26 - 08/22/2018 [facility] 0.81 3:53 PM CDT LABORATORIES - x10(9)/L [facility] Eosinophils 0.03 0.03 - 08/22/2018 [facility] 0.48 3:53 PM CDT LABORATORIES - x10(9)/L [facility] Basophils 0.03 0.01 - 08/22/2018 [facility] 0.08 3:53 PM CDT LABORATORIES - x10(9)/L [facility] Specimen Anatomical Collection Method Collection Time Receive d Time (Source) Location / / Volume Laterality Blood (Blood, 08/22/2018 3:25 PM 08/23/19 19 3:46 Venous) CDT PM CDT Velma Munson APRN, C.N.P. LAB BLOOD ADD-ON Performing Organization Address City/State/ZIP Code Phon e Number [facility] LABORATORIES - 200 [place], [place] [address] [facility] documented in this encounter Visit Diagnoses Diagnosis Arthritis Inflammatory (HCC) documented in this encounter Additional Health Concerns Assessment Noted Time PHQ-9 Depression Total Score: 15 04/21/2018 1:00 PM CS T documented as of this encounter
--- OUTSIDE RECORDS SUMMARY | 2022-02-16 15:04 | XMS_ITS | Encounter Summary ---
:1970 Author Organization [facility] Address [address] [place] [address] Care Team Providers Name Role Phone Unavailable Primary Care Provider Unavailable Reason for Referral Outpatient (Routine) - Closed Specialty Diagnoses / Procedures Referred By Contact Refer red To Contact Rheumatology Velma Munson APRN Shana [facility] C.N.P. [address] [place] [address] Referral ID Status Reason Start Date Expiration Date Visits Requ ested Visits Authorized [id number] Closed 08/23/2018 08/23/2019 1 1 Reason for Visit Outpatient (Routine) - Closed Specialty Diagnoses / Procedures Referred By Contact Refer red To Contact Rheumatology Velma Munson APRN Shana [facility] C.N.P. 200 [place] [address] Referral ID Status Reason Start Date Expiration Date Visits Requ ested Visits Authorized [id number] Closed 05/19/2018 05/19/2019 1 1 Encounter Details Date Type Department Care Team Description 08/23/2018 Office Visit Division of Velma Munson Arthritis In flammatory (HCC) (Primary Dx); Rheumatology in LONG Schwartz, C.N.P. Pain Hip Left [place], [place] [address] [facility] [address] [place] [phone] Social History Tobacco Use Types Packs/Day Years [...] Body Mass Index 23.27 05/19/2018 7:54 AM INTERVENTIONAL PHYSIATRIST documented in this encounter Progress Notes Velma Munson APRN, C.N.P. - 08/23/2018 1:00 PM CDT SUBJECTIVE [...] but on a reevaluation later by a table worker packager the diagnosis was refuted. She later established care with a table worker packager at [facility] who made a formal diagnosis of mixed [...] Risk Medication She will see a local mobile developer for the Plaquenil eye screening in the [facility]. I will follow up with [...] City/State/ZIP Code Phon e Number [facility] LABORATORIES - [address] [place], [place] [address] [facility] Creatinine with Estimated GFR (01/02/2019 9:45 AM CDT) P athologist Signature Creatinine 0.83 0.59 - 01/02/2019 1.04 mg/dL 12:22 PM CDT eGFR-Non 84 >=60 01/02/2019 Black/ mL/min/BSA 12:22 PM CDT [place] Comment: ----ADDITIONAL INFORMATION---- Estimated GFR calculated using the 2009 CKD_EPI creatinine equation. eGFR-Black/ >90 >=60 mL/min/BSA 2018 12:22 PM CDT Comment: ----ADDITIONAL INFORMATION---- Estimated GFR calculated using the 2009 CKD_EPI creatinine equation. Specimen Anatomical Collection Method Collection Time Receive d Time (Source) Location / / Volume Laterality Blood (Blood, 01/02/2019 9:45 AM 01/03/20 Venous) CDT 10:06 AM CDT Velma Munson APRN, Karlene.N.P. LAB BLOOD ADD-ON Performing Organization Address City/[facility]/ZIP Code Phon e Number [facility] - [address] [place] [phone] [facility] CRP (C-Reactive Protein) (01/02/2019 9:45 AM CDT) P athologist Signature C-Reactive <3.0 <=8.0 mg/L 01/02/2019 Protein (CRP), 12:22 PM CDT S Specimen Anatomical Collection Method Collection Time Receive d Time (Source) Location / / Volume Laterality Blood (Blood, 01/02/2019 9:45 AM 01/03/20 Venous) CDT 10:06 AM CDT Velma Munson APRN, C.N.P. LAB BLOOD ADD-ON Performing Organization Address City/[facility] Code Phon e Number [facility] - [address] [place] [address] [facility] Sedimentation Rate (01/02/2019 9:45 AM CDT) [facility] Time Signature Sedimentation 1 0 - 29 01/02/2019 Rate, B mm/1 h 11:18 AM CDT Specimen Anatomical Collection Method Collection Time Receive d Time (Source) Location / / Volume Laterality Blood (Blood, 01/02/2019 9:45 AM 01/03/20 Venous) CDT 10:06 AM CDT Velma Munson APRN, C.N.P. LAB BLOOD ADD-ON Performing Organization Address City/State/ZIP Code Phon e Number [facility] - [address] [place] [address] [facility] CBC with Differential, Blood (01/02/2019 9:45 AM [...] City/State/ZIP Code Phon e Number [facility] - [address] [place], [place] [address] [facility] documented in this encounter Visit Diagnoses Diagnosis Arthritis Inflammatory (HCC) - Primary Pain Hip Left documented in this encounter Additional Health Concerns Assessment Noted Time PHQ-9 Depression Total Score: 15 04/21/2018 1:00 PM CS T documented as of this encounter
--- OUTSIDE RECORDS SUMMARY | 2022-02-16 15:04 | XMS_ITS | Encounter Summary ---
:1970 Author Organization [facility] Address [address] [place] [address] Care Team Providers Name Role Phone Unavailable Primary Care Provider Unavailable Encounter Details Date Type Department Care Team Description 08/21/2018 Clinical Support Department of Dayana Sweeney M.D. [address] [place] [address] Hyperpigmentation Dermatology in Darleen George R.N. [address] [place] [address] [place], [place] [address] [place] [phone] Social History Tobacco Use Types Packs/Day Years [...] is here for patch test application. Supervising Exhibits Coordinator: Mandy Jennings MD ([id number]). Ordering Provider: Dayana Sweeney MD ([id number]). The Standard series (80 patches) and Extended Standard/Personal Care series (60 patches) were applied to the back. Total number of patches applied: 140. Teaching provided to patient and spouse. Barriers to learning identified as none. Preferred learningstyle is listening, reading, seeing and doing. Educated about patch testing per patient education pamphlet Patch Testing [id number]. Teaching methods included discussion and printed materials. [...]
--- OUTSIDE RECORDS SUMMARY | 2022-02-16 15:04 | XMS_ITS | Encounter Summary ---
:1970 Author Organization [facility] Address [address] [place] [address] Care Team Providers Name Role Phone Unavailable Primary Care Provider Unavailable Reason for Referral Outpatient (Routine) - Closed Specialty Diagnoses / Procedures Referred By Contact Refer red To Contact Dermatology Dayana Sweeney M. D. [facility] [address] [place] [phone] Referral ID Status Reason Start Date Expiration Date Visits Requ ested Visits Authorized [id number] Closed 09/05/2018 09/05/2019 1 1 Encounter Details Date Type Department Care Team Description 08/29/2018 Clinical Support Department of Dayana Sweeney (Primary Dx); Dermatology césar Gonzales M.D. Hyperpigmentation; [place], [place] [address] [facility] Dermatitis Contact [address] [place] [phone] Social History Tobacco Use Types Packs/Day Years [...] M.D. Patient seen and discussed with supervising qm consultant,who evaluated the patient and concurs with [...] patch test results (standard + extended standard): -5-btmc-[id number] formaldehyde resin 1% (2) -Benzalkonium chloride (2) [...] PLAN #Patch testing with positive reactions to 1-varp-Pizuvropvkm formaldehyde resin, Benzalkonium chloride, Methlisothiazolinone, Hydroperoxides of [...] thecontent. Phylicia Broussard M.D. Associated attestation - Dayana Sweeney M.D. - 09/05/2018 9:32 AM CDT I [...]
--- OUTSIDE RECORDS SUMMARY | 2022-02-16 15:04 | XMS_ITS | Encounter Summary ---
:1970 Author Organization [facility] Address [address] [place] [address] Care Team Providers Name Role Phone Unavailable Primary Care Provider Unavailable Reason for Visit Reason Onset Date Comments Joint pain and tingling in fingers 06/08/2018 Encounter Details Date Type Department Care Team Description 06/08/2018 Clinical Division of Velma Munson Joint pain a nd Communication Rheumatology in , CUSTOMER CARE CONSULTANT, C.N.P. tingling in [place], [place] [address] fingers [address] [place] [phone] Social History Tobacco Use Types Packs/Day Years [...] Munson APRN, C.N.P. - 06/09/2018 5:13 PM TARP REPAIRER Prednisone burst and taper was prescribed to patients preferred pharmacy. REPAIRER Telephone Encounter - Sawyer Nicholson R.N. - [...] references were used: provider Velma Munson CNP REPAIRER Telephone Encounter - Velma Munson APRN, C.N.P. - 06/09/2018 10:23 AM TARP REPAIRER Please call patient and see if it is more carpal tunnel. It sounds like she is in a flare. She may need prednisone. REPAIRER Telephone Encounter - Violetta Mendieta - 06/08/2018 10:43 AM CST Patient called. For the last 4 days, patient has had pain and tingling in her fingers in both hands and pain in all of her joints are they are very painful. REPAIRER documented in this encounter Plan of Treatment Not on filedocumented as of this encounter Visit Diagnoses Not on filedocumented in this encounter Additional Health Concerns Assessment Noted Time PHQ-9 Depression Total Score: 15 04/21/2018 1:00 PM CS T documented as of this encounter
--- OUTSIDE RECORDS SUMMARY | 2022-02-16 15:05 | XMS_ITS | Encounter Summary ---
:1970 Author Organization [facility] Address [address] [place] [address] Care Team Providers Name Role Phone Unavailable Primary Care Provider Unavailable Encounter Details Date Type Department Care Team Description 01/09/2018 Clinical Communication Division of Velma Munson Rheumatology in , DIRECTOR CLINICAL OPERATIONS, C.N.P. [place], [place] [address] [facility] [address] [place] [address] [phone] Social History Tobacco Use Types Packs/Day Years [...] that she had it done here at [place],but then remembered it was done at an outside facility. She will have those sent. She notes continuing headaches, with joint pain from hips down, rating a 3-5/10 on average, with some instances being 10/10. She notes that she missed her 11/11/17 appointment due to abdominal surgery with complications of infection in [place]. She does want a follow up with [...] the next steps. Please call her at [phone] before 1pm today or [phone] after 1pm today. Khushboo Berry documented in this encounter Plan of Treatment Not on filedocumented as of this encounter Visit Diagnoses Not on filedocumented in this encounter Additional Health Concerns Assessment Noted Time PHQ-9 Depression Total Score: 7 08/19/2017 3:59 PM CDT documented as of this encounter
--- OUTSIDE RECORDS SUMMARY | 2022-02-16 15:05 | XMS_ITS | Encounter Summary ---
:1970 Author Organization [facility] Address [address] [place] [address] Care Team Providers Name Role Phone Unavailable Primary Care Provider Unavailable Encounter Details Date Type Department Care Team Description 04/12/2018 Clinical Communication Division of [place], Gastroenterology in Susy Aldridge [place], [place] 210 [facility] [address] [place] [phone] Social History Tobacco Use Types Packs/Day Years [...]
--- OUTSIDE RECORDS SUMMARY | 2022-02-16 15:05 | XMS_ITS | Encounter Summary ---
:1970 Author Organization [facility] Address [address] [place] [address] Care Team Providers Name Role Phone Unavailable Primary Care Provider Unavailable Encounter Details Date Type Department Care Team Description 05/09/2018 Clinical Communication Division of [place], Gastroenterology in [place]y Aldridge [place], [place] 210 [facility] [address] [place] [phone] Social History Tobacco Use Types Packs/Day Years [...] or slept in a prison (including now)? Sex Assigned at Date Recorded Female 01/25/2018 11:49 AM CDT documented as of this encounter Plan of Treatment Not on filedocumented as of this encounter Visit Diagnoses Not on filedocumented in this encounter Additional Health Concerns Assessment Noted Time PHQ-9 Depression Total Score: 15 04/21/2018 1:00 PM CS T documented as of this encounter
--- OUTSIDE RECORDS SUMMARY | 2022-02-16 15:05 | XMS_ITS | Encounter Summary ---
:1970 Author Organization [facility] Address [address] [place] [address] Care Team Providers Name Role Phone Unavailable Primary Care Provider Unavailable Encounter Details Date Type Department Care Team Description 08/22/2017 Orders Only Division of Velma Munson Arthritis In [facility] Rheumatology in , LONG, C.N.PLennox ([facility]) [place], [place] [address] [facility] [address] [place] [address] [phone] Social History Tobacco Use Types Packs/Day Years [...]
--- OUTSIDE RECORDS SUMMARY | 2022-02-16 15:05 | XMS_ITS | Encounter Summary ---
:1970 Author Organization [facility] Address [address] [place] [address] Care Team Providers Name Role Phone Unavailable Primary Care Provider Unavailable Reason for Referral Outpatient (Routine) - Closed Specialty Diagnoses / Procedures Referred By Contact Refer red To Contact Dermatology Diagnoses Vitiligo Left Unspecified Eyelid And Periocular Area [facility] C[facility] [address] [place], [place] [phone] Referral ID Status Reason Start Date Expiration Date Visits V isits Requested Authorized [id number] Closed Specialty 04/13/2018 04/13/2019 1 1 Services Required OL SOCIAL WORKER Reason for Visit Reason Onset Date Comments Discuss patient 04/13/2018 Encounter Details Date Type Department Care Team Description 04/13/2018 Clinical Communication Division of Velma Munson patient Rheumatology in LONG Schwartz, C.N.P. [place], [place] [address] [place] [address] [address] [place] [phone] Social History Tobacco Use Types Packs/Day Years [...] 11/16/2021 organizations such as taoist groups, unions, fraBozuko or athletic groups, or school groups? How [...] Munson APRN, C.N.P. - 04/13/2018 5:09 PM SCHOOL SOCIAL WORKER I spoke with Dr. Rivas about the increasing vitiligo to the patient's face. I will contact the patient and have her see our power plant operator. Velma OL SOCIAL WORKER Telephone Encounter - Violetta Mendieta - 04/13/2018 11:[address] Rivas would like you to call him this afternoon at [phone]. He saw patient this morning and would like to discuss her with you. OL SOCIAL WORKER documented in this encounter Plan of [...]
--- OUTSIDE RECORDS SUMMARY | 2022-02-16 15:05 | XMS_ITS | Encounter Summary ---
:1970 Author Organization [facility] Address [address] [place] [address] Care Team Providers Name Role Phone Unavailable Primary Care Provider Unavailable Encounter Details Date Type Department Care Team Description 01/25/2018 Hospital Encounter Department of Velma Munson Laboratory Medicine L, LONG, C.N .P. Inflammatory (HCC) and Pathology, [address] [place] [address] [facility] [address] [place] [phone] [place] [address] (Work) [place], [place] [phone] [phone] (Fax) [phone] Social History Tobacco Use Types Packs/Day Years [...] (01/25/2018 9:21 AM CDT) Analysis Performed At Patho logist Time Signature Creatinine 0.76 0.59 - 01/25/2018 [facility] 1.04 mg/dL 10:22 AM CDT LABORATORIES - [facility] eGFR-Non >90 >=60 01/25/2018 [facility] Black/ mL/min/BSA 10:22 AM CDT LABORATORIES - [facility] Comment: ----ADDITIONAL INFORMATION---- Estimated GFR calculated using the 2009 CKD_EPI creatinine equation. eGFR-Black/ >90 >=60 mL/min/BSA 01/25/2018 10:2 2 [facility] CDT LABORATORIES - [facility] Comment: ----ADDITIONAL INFORMATION---- Estimated GFR calculated using the 2009 CKD_EPI creatinine equation. Specimen Anatomical Collection Method Collection Time Receive d Time (Source) Location / / Volume Laterality Blood (Blood, 01/25/2018 9:21 AM 01/26/20 18 9:39 Venous) CDT AM CDT Karlene Polo APRN.N.P. LAB BLOOD ADD-ON Performing Organization Address City/[facility] Phon e Number [facility] LABORATORIES - [address] AST (Aspartate Aminotransferase) (01/25/2018 9:21 AM CDT) Patholo gist Method Time Signature Aspartate 13 8 - 43 01/25/2018 [facility] Aminotransferase U/L 10:22 AM LABORATORIES - (AST), S CDT [facility] Specimen Anatomical Collection Method Collection Time Receive d Time (Source) Location / / Volume Laterality Blood (Blood, 01/25/2018 9:21 AM 01/26/20 18 9:39 Venous) CDT AM CDT Velma Munson APRN, Karlene.N.P. LAB BLOOD ADD-ON Performing Organization Address City/State/ZIP Code Phon e Number [facility] LABORATORIES - [address] CRP (C-Reactive Protein) (01/25/2018 9:21 AM CDT) P athologist Signature C-Reactive 3.0 <=8.0 mg/L 01/25/2018 [facility] Protein (CRP), 10:22 AM CDT LABORATORIES - S [facility] Specimen Anatomical Collection Method Collection Time Receive d Time (Source) Location / / Volume Laterality Blood (Blood, 01/25/2018 9:21 AM 01/26/20 18 9:39 Venous) CDT AM CDT Jorge Polo APRNN.P. LAB BLOOD ADD-ON Performing Organization Address City/[facility]/ZIP Code Phon e Number [facility] LABORATORIES - 200 [place] [phone] [facility] Sedimentation Rate (01/25/2018 9:21 AM CDT) [facility] Method Time Signature Sedimentation 3 0 - 29 01/25/2018 [facility] Rate, B mm/1 h 11:12 AM CDT LABORATORIES [facility] Specimen Anatomical Collection Method Collection Time Receive d Time (Source) Location / / Volume Laterality Blood (Blood, 01/25/2018 9:21 AM 01/26/20 18 9:39 Venous) CDT AM CDT Jorge Polo APRNN.P. LAB BLOOD ADD-ON Performing Organization Address [facility] Code Phon e Number [facility] LABORATORIES - 200 [place] [phone] [facility] CBC with Differential, Blood (01/25/2018 9:21 AM CDT) [facility] Method Time Signature Hemoglobin 13.9 11.6 - 01/25/2018 [facility] 15.0 g/dL 10:19 AM CDT LABORATORIES - [facility] Hematocrit 42.0 35.5 - 01/25/2018 [facility] 44.9 % 10:19 AM CDT LABORATORIES - [facility] Erythrocytes 4.95 3.92 - 01/25/2018 [facility] 5.13 10:19 AM CDT LABORATORIES - x10(12)/L [facility] MCV 84.8 78.2 - 01/25/2018 [facility] 97.9 fL 10:19 AM CDT LABORATORIES - [facility] RBC Distrib Width 14.0 12.2 - 01/25/2018 [facility] 16.1 % 10:19 AM CDT LABORATORIES - [facility] Platelet Count 274 157 - 371 01/25/2018 [facility] x10(9)/L 10:19 AM CDT LABORATORIES - [facility] Leukocytes 6.5 3.4 - 9.6 01/25/2018 [facility] x10(9)/L 10:19 AM CDT LABORATORIES - [facility] Neutrophils 4.55 1.56 - 01/25/2018 [facility] 6.45 10:19 AM CDT LABORATORIES - x10(9)/L [facility] Lymphocytes 1.46 0.95 - 01/25/2018 [facility] 3.07 10:19 AM CDT LABORATORIES - x10(9)/L [facility] Monocytes 0.39 0.26 - 01/25/2018 [facility] 0.81 10:19 AM CDT LABORATORIES - x10(9)/L [facility] Eosinophils 0.04 0.03 - 01/25/2018 [facility] 0.48 10:19 AM CDT LABORATORIES - x10(9)/L [facility] Basophils <0.03 0.01 - 01/25/2018 [facility] 0.08 10:19 AM CDT LABORATORIES - x10(9)/L [facility] Specimen Anatomical Collection Method Collection Time Receive d Time (Source) Location / / Volume Laterality Blood (Blood, 01/25/2018 9:21 AM 01/26/20 18 9:39 Venous) CDT AM CDT Velma Munson APRN C.N.P. LAB BLOOD ADD-ON Performing Organization Address City/State/ZIP Code Phon e Number [facility] LABORATORIES - 200 [place], [place] [address] [facility] documented in this encounter Visit Diagnoses Diagnosis Arthritis Inflammatory (HCC) documented in this encounter Additional Health Concerns Assessment Noted Time PHQ-9 Depression Total Score: 7 08/19/2017 3:59 PM CDT documented as of this encounter
--- OUTSIDE RECORDS SUMMARY | 2022-02-16 15:05 | XMS_ITS | Encounter Summary ---
:1970 Author Organization [facility] Address [address] [place] [address] Care Team Providers Name Role Phone Unavailable Primary Care Provider Unavailable Encounter Details Date Type Department Care Team Description 01/17/2018 Orders Only Division of Velma [facility] in , Jorge ALVESNLennox[facility]ennox ([facility]) (Primary Dx) [place], [place] [address] [facility] [address] [place] [address] [phone] Social History Tobacco Use Types Packs/Day Years [...] slept in a long term (including now)? Sex Assigned at Date Recorded Female 01/25/2018 11:49 AM CDT documented as of this encounter Plan of Treatment Not on filedocumented as of this encounter Results Creatinine with Estimated GFR (01/25/2018 9:21 AM CDT) Analysis Performed At Path logist Time Signature Creatinine 0.76 0.59 - 01/25/2018 [facility] 1.04 mg/dL 10:22 AM CDT LABORATORIES - [facility] eGFR-Non >90 >=60 01/25/2018 [facility] Black/ mL/min/BSA 10:22 AM CDT LABORATORIES - [facility] Comment: ----ADDITIONAL INFORMATION---- Estimated GFR calculated using the 2009 CKD_EPI creatinine equation. eGFR-Black/ >90 >=60 mL/min/BSA 01/25/2018 10:2 2 [facility] CDT LABORATORIES - [facility] Comment: ----ADDITIONAL INFORMATION---- Estimated GFR calculated using the 2009 CKD_EPI creatinine equation. Specimen Anatomical Collection Method Collection Time Receive d Time (Source) Location / / Volume Laterality Blood (Blood, 01/25/2018 9:21 AM 01/26/20 18 9:39 Venous) CDT AM CDT Velma Munson APRN C.N.P. LAB BLOOD ADD-ON Performing Organization Address City/State/ZIP Code Phon e Number [facility] LABORATORIES - [address] [place] [phone] [facility] AST (Aspartate Aminotransferase) (01/25/2018 9:21 AM CDT) Patholo gist Method Time Signature Aspartate 13 8 - 43 01/25/2018 [facility] Aminotransferase U/L 10:22 AM LABORATORIES - (AST), S CDT [facility] Specimen Anatomical Collection Method Collection Time Receive d Time (Source) Location / / Volume Laterality Blood (Blood, 01/25/2018 9:21 AM 01/26/20 18 9:39 Venous) CDT AM CDT Jorge Polo APRNNLennoxP. LAB BLOOD ADD-ON Performing Organization Address City/[facility]/ZIP Code Phon e Number [facility] LABORATORIES - [address] [place] [address] [facility] CRP (C-Reactive Protein) (01/25/2018 9:21 AM CDT) P athologist Signature C-Reactive 3.0 <=8.0 mg/L 01/25/2018 [facility] Protein (CRP), 10:22 AM CDT LABORATORIES - [facility] Specimen Anatomical Collection Method Collection Time Receive d Time (Source) Location / / Volume Laterality Blood (Blood, 01/25/2018 9:21 AM 01/26/20 18 9:39 Venous) CDT AM CDT Velma Munson APRN, C.N.P. LAB BLOOD ADD-ON Performing Organization Address City/[facility]/ZIP Code Phon e Number [facility] LABORATORIES - [address] [place] [phone] [facility] Sedimentation Rate (01/25/2018 9:21 AM CDT) [facility] Method Time Signature Sedimentation 3 0 - 29 01/25/2018 [facility] Rate, B mm/1 h 11:[address] [facility] Specimen Anatomical Collection Method Collection Time Receive d Time (Source) Location / / Volume Laterality Blood (Blood, 01/25/2018 9:21 AM 01/26/20 18 9:39 Venous) CDT AM CDT Jorge Polo APRNN.P. LAB BLOOD ADD-ON Performing Organization Address City/[facility] Phon e Number [facility] LABORATORIES - [address] [place] [address] 05 [facility] CBC with Differential, Blood (01/25/2018 9:21 AM CDT) [facility] Method Time Signature Hemoglobin 13.9 11.6 - 01/25/2018 [facility] 15.0 g/dL 10:19 AM CDT LABORATORIES - [facility] Hematocrit 42.0 35.5 - 01/25/2018 [facility] 44.9 % 10:19 AM CDT LABORATORIES [facility] Erythrocytes 4.95 3.92 - 01/25/2018 [facility] 5.13 10:19 AM CDT LABORATORIES - x10(12)/L [facility] MCV 84.8 78.2 - 01/25/2018 [facility] 97.9 fL 10:19 AM CDT LABORATORIES - [facility] RBC Distrib Width 14.0 12.2 - 01/25/2018 [facility] 16.1 % 10:19 AM CDT LAB[facility]ATORIES - [facility] Platelet Count 274 157 - 371 01/25/2018 [facility] x10(9)/L 10:19 AM CDT LABORATORIES - [facility] Leukocytes 6.5 3.4 - 9.6 01/25/2018 [facility] x10(9)/L 10:19 AM CDT LABORATORIES - [facility] Neutrophils 4.55 1.56 - 01/25/2018 [facility] 6.45 10:19 AM CDT LABORATORIES - x10(9)/L [facility] Lymphocytes 1.46 0.95 - 01/25/2018 [facility] 3.07 10:19 AM CDT LABORATORIES - x10(9)/L [facility] Monocytes 0.39 0.26 - 01/25/2018 [facility] 0.81 10:19 AM CDT LABORATORIES - x10(9)/L [facility] Eosinophils 0.04 0.03 - 01/25/2018 [facility] 0.48 10:19 AM CDT LABORATORIES - x10(9)/L [facility] Basophils <0.03 0.01 - 01/25/2018 [facility] 0.08 10:19 AM CDT LABORATORIES - x10(9)/L [facility] Specimen Anatomical Collection Method Collection Time Receive d Time (Source) Location / / Volume Laterality Blood (Blood, 01/25/2018 9:21 AM 01/26/20 18 9:39 Venous) CDT AM CDT Velma Munson APRN C.N.P. LAB BLOOD ADD-ON Performing Organization Address City/State/ZIP Code Phon e Number [facility] LABORATORIES - [address] [place], [place] [address] [facility] documented in this encounter Visit Diagnoses Diagnosis Arthritis Inflammatory (HCC) - Primary documented in this encounter Additional Health Concerns Assessment Noted Time PHQ-9 Depression Total Score: 7 08/19/2017 3:59 PM CDT documented as of this encounter
--- OUTSIDE RECORDS SUMMARY | 2022-02-16 15:05 | XMS_ITS | Encounter Summary ---
:1970 Author Organization [facility] Address [address] [place] [address] Care Team Providers Name Role Phone Unavailable Primary Care Provider Unavailable Encounter Details Date Type Department Care Team Description 05/19/2018 Hospital Encounter Department of Velma Munson Pa in Low Back Radiology, Luzmaria ALVES C.N.P. [facility], in [address] [place] [address] [place] [phone] [place], [place] [phone] (Wo rk) [phone] Social History Tobacco Use Types Packs/Day Years [...] or relatives? How often do you attend adventist or More than 4 times per year 11/16/2021 evangelical services? Do you belong to any clubs or No 11/16/2021 organizations such as adventist groups, unions, fraternal or athletic groups, or [...] for this 2-3 VIEWS (most inpatients AM YARN INSPECTOR procedure a re in and all the results outpatients) section. documented in this encounter Results DX Lumbar Spine 2-3 Views (05/19/2018 10:23 AM YARN INSPECTOR) Anatomical Region Laterality Modality Lumbar Spine, Musculoskeletal RST LOS, Neuroradiology N/A Digital Radiography ARZ LOS, Muskuloskeletal FLA LOS Specimen (Source) Anatomical Collection Method Collection Time Re ceived Time Location / / Volume Laterality 05/19/2018 10:30 AM YARN INSPECTOR Impressions 05/19/2018 10:30 AM YARN INSPECTOR IMPRESSION: ??Mild multilevel degenerative spondylosis. Slight wedging of T12. Cholecystectomy clips. IUD. Adjustable g astric band. Narrative 05/19/2018 10:30 AM YARN INSPECTOR EXAM: ??DX LUMBAR SPINE 2-3 VIEWS Procedure Note Richardson Packer M.D. - 05/19/2018For matting of this note might be different from the original. EXAM: DX LUMBAR SPINE 2-3 VIEWS IMPRESSION: Mild multilevel degenerative spondylosis. Slight wedging of T12. Cholecystectomy clips. IUD. Adjustable g astric band. Jorge Polo APRNNSandra IMG DIAGNOSTIC IMAGING P ROCEDURES documented in this encounter Visit Diagnoses Diagnosis Pain Low Back Unspecified documented in this encounter Additional Health Concerns Assessment Noted Time PHQ-9 Depression Total Score: 15 04/21/2018 1:00 PM CS T documented as of this encounter
--- OUTSIDE RECORDS SUMMARY | 2022-02-16 15:05 | XMS_ITS | Encounter Summary ---
:1970 Author Organization [facility] Address [address] [place] [address] Care Team Providers Name Role Phone Unavailable Primary Care Provider Unavailable Reason for Visit Reason Onset Date Comments Pre-visit Testing Orders 05/10/2018 Encounter Details Date Type Department Care Team Description 05/10/2018 Clinical Division of Velma Munson Pre-visit Te sting Communication Rheumatology in [place], JET ENGINE MECHANIC, C.N.P. Orders [place], [place] [address] [facility] [address] [place] [phone] Social History Tobacco Use Types Packs/Day Years [...] Munson APRN, C.N.P. - 05/10/2018 5:02 PM SIDE PIECE COVERER Lab order signed. Velma PIECE COVERER Telephone Encounter - Maddy Drummond - 05/10/2018 4:22 PM SIDE PIECE COVERER I have pended labs for you when patient returns to see you on 05/19- she will be doing the labs on 05/17 when here for other appointments Thank you Maddy PIECE COVERER documented in this encounter Plan of Treatment Not on filedocumented as of this encounter Results CBC with Differential, Blood (05/17/2018 3:16 PM SIDE PIECE COVERER) [facility] Method Time Signature Hemoglobin 13.8 11.6 - 05/17/2018 [facility] 15.0 g/dL 3:52 PM SIDE PIECE COVERER LABORATORIES - [facility] Hematocrit 41.4 35.5 - 05/17/2018 [facility] 44.9 % 3:52 PM SIDE PIECE COVERER LABORATORIES - [facility] Erythrocytes 4.94 3.92 - 05/17/2018 [facility] 5.13 3:52 PM SIDE PIECE COVERER LABORATORIES - x10(12)/L [facility] MCV 83.8 78.2 - 05/17/2018 [facility] 97.9 fL 3:52 PM SIDE PIECE COVERER LABORATORIES [facility] RBC Distrib Width 13.2 12.2 - 05/17/2018 [facility] 16.1 % 3:52 PM SIDE PIECE COVERER LABORATORIES - [facility] Platelet Count 260 157 - 371 05/17/2018 [facility] x10(9)/L 3:52 PM SIDE PIECE COVERER LABORATORIES - [facility] Leukocytes 7.9 3.4 - 9.6 05/17/2018 [facility] x10(9)/L 3:52 PM SIDE PIECE COVERER LABORATORIES - [facility] Neutrophils 5.55 1.56 - 05/17/2018 [facility] 6.45 3:52 PM SIDE PIECE COVERER LABORATORIES - x10(9)/L [facility] Lymphocytes 1.79 0.95 - 05/17/2018 [facility] 3.07 3:52 PM SIDE PIECE COVERER LABORATORIES - x10(9)/L [facility] Monocytes 0.49 0.26 - 05/17/2018 [facility] 0.81 3:52 PM SIDE PIECE COVERER LABORATORIES - x10(9)/L [facility] Eosinophils <0.03 0.03 - 05/17/2018 [facility] 0.48 3:52 PM SIDE PIECE COVERER LABORATORIES - x10(9)/L [facility] Basophils 0.03 0.01 - 05/17/2018 [facility] 0.08 3:52 PM SIDE PIECE COVERER LABORATORIES - x10(9)/L [facility] Specimen Anatomical Collection Method Collection Time Receive d Time (Source) Location / / Volume Laterality Blood (Blood, 05/17/2018 3:16 PM 05/17/19 19 3:35 Venous) SIDE PIECE COVERER PM SIDE PIECE COVERER Velma Munson APRN C.N.P. LAB BLOOD ADD-ON Performing Organization Address City/State/ZIP Code Phon e Number [facility] LABORATORIES - 200 [place], [place] [address] [facility] Creatinine with Estimated GFR (05/17/2018 3:16 PM SIDE PIECE COVERER) Analysis Performed At [facility] Time Signature Creatinine 0.90 0.59 - 05/17/2018 [facility] 1.04 mg/dL 4:15 PM SIDE PIECE COVERER LABORATORIES [facility] eGFR-Non 77 >=60 05/17/2018 [facility] Black/ mL/min/BSA 4:15 PM SIDE PIECE COVERER LABORATORIES - [facility] Comment: ----ADDITIONAL INFORMATION---- Estimated GFR calculated using the 2009 CKD_EPI creatinine equation. eGFR-Black/ 89 >=60 mL/min/BSA 05/17/2018 4:15 [facility] Palestinian PM SIDE PIECE COVERER LABORATORIES [facility] Comment: ----ADDITIONAL INFORMATION---- Estimated GFR calculated using the 2009 CKD_EPI creatinine equation. Specimen Anatomical Collection Method Collection Time Receive d Time (Source) Location / / Volume Laterality Blood (Blood, 05/17/2018 3:16 PM 05/17/19 19 3:34 Venous) SIDE PIECE COVERER PM SIDE PIECE COVERER Karlene Polo APRN.N.P. LAB BLOOD ADD-ON Performing Organization Address City/[facility]/ZIP Code Phon e Number [facility] LABORATORIES - 200 [place] [address] [facility] CRP (C-Reactive Protein) (05/17/2018 3:16 PM SIDE PIECE COVERER) P athologist Signature C-Reactive <3.0 <=8.0 mg/L 05/17/2018 [facility] Protein (CRP), 4:15 PM SIDE PIECE COVERER LABORATORIES - [facility] Specimen Anatomical Collection Method Collection Time Receive d Time (Source) Location / / Volume Laterality Blood (Blood, 05/17/2018 3:16 PM 05/17/19 19 3:34 Venous) SIDE PIECE COVERER PM SIDE PIECE COVERER Velma Munson APRN, Karlene.N.P. LAB BLOOD ADD-ON Performing Organization Address City/[facility] Phon e Number [facility] LABORATORIES - [address] [place] [address] [facility] AST (Aspartate Aminotransferase) (05/17/2018 3:16 PM SIDE PIECE COVERER) [facility] Method Time Signature Aspartate 17 8 - 43 05/17/2018 [facility] Aminotransferase U/L 4:15 PM SIDE PIECE COVERER LABORATORIE S - (AST), S [facility] Specimen Anatomical Collection Method Collection Time Receive d Time (Source) Location / / Volume Laterality Blood (Blood, 05/17/2018 3:16 PM 05/17/19 19 3:34 Venous) SIDE PIECE COVERER PM SIDE PIECE COVERER Velma Munson APRN, C.N.P. LAB BLOOD ADD-ON Performing Organization Address City/[facility]/ZIP Code Phon e Number [facility] LABORATORIES - [address] [place] [address] [facility] Sedimentation Rate (05/17/2018 3:16 PM SIDE PIECE COVERER) [facility] Method Time Signature Sedimentation 5 0 - 29 05/17/2018 [facility] Rate, B mm/1 h 4:52 PM SIDE PIECE COVERER LABORATORIES [facility] Specimen Anatomical Collection Method Collection Time Receive d Time (Source) Location / / Volume Laterality Blood (Blood, 05/17/2018 3:16 PM 05/17/19 19 3:35 Venous) SIDE PIECE COVERER PM SIDE PIECE COVERER Jorge Polo APRNN.PLennox LAB BLOOD ADD-ON Performing Organization Address City/State/ZIP Code Phon e Number [facility] LABORATORIES - [address] [place] [address] [facility] documented in this encounter Visit Diagnoses Diagnosis Arthritis Inflammatory (HCC) - Primary documented in this encounter Additional Health Concerns Assessment Noted Time PHQ-9 Depression Total Score: 15 04/21/2018 1:00 PM CS T documented as of this encounter
--- OUTSIDE RECORDS SUMMARY | 2022-02-16 15:05 | XMS_ITS | Encounter Summary ---
:1970 Author Organization [facility] Address [address] [place] [address] Care Team Providers Name Role Phone Unavailable Primary Care Provider Unavailable Reason for Referral Outpatient (Routine) - Closed Specialty Diagnoses / Procedures Referred By Contact Refer red To Contact Rheumatology Velma Munson APRN, [facility] C.N[facility] [address] [place] [phone] Referral ID Status Reason Start Date Expiration Date Visits Requ ested Visits Authorized [id number] Closed 05/19/2018 05/19/2019 1 1 [facility] Reason for Visit Appointment Request (Routine) - Closed Specialty Diagnoses / Procedures Referred By Contact Refer red To Contact Rheumatology Velma Munson APRN, C.N.P. [address] [place] [phone] Referral ID Status Reason Start Date Expiration Date Visits Requ ested Visits Authorized [id number] Closed 05/10/2018 05/10/2019 1 1 Encounter Details Date Type Department Care Team Description 05/19/2018 Office Visit Division of Velma Munson Low Maddison k (Primary Dx); Rheumatology in LONG Schwartz, C.N.P. Arthritis Inflammatory (HCC); [place], [place] [address] [facility] High Risk Medication [address] [place] [phone] Social History Tobacco Use Types Packs/Day Years [...] Comments Blood Pressure 125/89 05/19/2018 7:54 AM EMERGENCY WORKER Pulse 74 05/19/2018 7:54 AM EMERGENCY WORKER Temperature 36.9 ??C (98.4 ??F) 05/19/2018 7:54 AM EMERGENCY WORKER Respiratory Rate - - Oxygen Saturation - - Inhaled Oxygen Concentration - - Weight 60.4 kg (133 lb 2.5 oz) 05/19/2018 7:54 AM EMERGENCY WORKER Height 158.3 cm (5' 2.32) 05/19/2018 7:54 AM EMERGENCY WORKER Body Mass Index 24.1 05/19/2018 7:54 AM EMERGENCY WORKER documented in this encounter Progress Notes Velma [...] but on a reevaluation later by a it administrator the diagnosis was refuted. She later established care with a it administrator at [facility] who made a formal diagnosis of [...] Risk Medication She will see a local television repairer for the Plaquenil eye screening in the [facility]. I will follow up with her in 3 months. I answered the patients questions to the best of my ability. The patient seemed pleased with our interaction. If she should have any additional questions or concerns. I have asked that she contact us at that time. GENCY WORKER documented in this encounter Plan of Treatment Scheduled Referrals Name Type Priority Associated Order Schedule Diagnoses Rheumatology office Outpatient Referral Routine E xpected: visit (clinic) 08/17/2018 (Approximate), Expires: 05/19/2021 documented as of this encounter Results AST (Aspartate Aminotransferase) (08/22/2018 3:25 PM CDT) [facility] gist Method Time Signature Aspartate 17 8 - 43 08/22/2018 [facility] Aminotransferase U/L 4:25 PM CDT LABORATORIE S - (AST), S [facility] Specimen Anatomical Collection Method Collection Time Receive d Time (Source) Location / / Volume Laterality Blood (Blood, 08/22/2018 3:25 PM 08/23/19 19 3:46 Venous) CDT PM CDT Velma Munson APRN, C.N.P. LAB BLOOD ADD-ON Performing Organization Address City/State/ZIP Code Phon e Number [facility] LABORATORIES - [address] [place], [place] [address] [facility] Creatinine with Estimated GFR (08/22/2018 3:25 PM CDT) Analysis Performed At [facility] logist Time Signature Creatinine 0.86 0.59 - 08/22/2018 [facility] 1.04 mg/dL 4:25 PM CDT LABORATORIES [facility] eGFR-Non 81 >=60 08/22/2018 [facility] Black/ mL/min/BSA 4:25 PM CDT LABORATORIES - [facility] Comment: ----ADDITIONAL INFORMATION---- Estimated GFR calculated using the 2009 CKD_EPI creatinine equation. eGFR-Black/ >90 >=60 mL/min/BSA 08/22/2018 4:25 [facility] Afghan PM CDT LABORATORIES [facility] Comment: ----ADDITIONAL INFORMATION---- Estimated GFR calculated using the 2009 CKD_EPI creatinine equation. Specimen Anatomical Collection Method Collection Time Receive d Time (Source) Location / / Volume Laterality Blood (Blood, 08/22/2018 3:25 PM 08/23/19 19 3:46 Venous) CDT PM CDT Karlene Polo APRN.N.P. LAB BLOOD ADD-ON Performing Organization Address City/[facility]/ZIP Code Phon e Number [facility] LABORATORIES - [address] CRP (C-Reactive Protein) (08/22/2018 3:25 PM CDT) athologist Signature C-Reactive 3.2 <=8.0 mg/L 08/22/2018 [facility] Protein (CRP), 4:25 PM CDT LABORATORIES - [facility] Specimen Anatomical Collection Method Collection Time Receive d Time (Source) Location / / Volume Laterality Blood (Blood, 08/22/2018 3:25 PM 08/23/19 19 3:46 Venous) CDT PM CDT Velma Munson APRN, C.N.P. LAB BLOOD ADD-ON Performing Organization Address City/[facility] Phon e Number [facility] LABORATORIES - 200 [place] [address] [facility] Sedimentation Rate (08/22/2018 3:25 PM CDT) [facility] Method Time Signature Sedimentation 2 0 - 29 08/22/2018 [facility] Rate, B mm/1 h 5:00 PM CDT [facility] - [facility] Specimen Anatomical Collection Method Collection Time Receive d Time (Source) Location / / Volume Laterality Blood (Blood, 08/22/2018 3:25 PM 08/23/19 19 3:46 Venous) CDT PM CDT Velma Munson APRN, C.N.P. LAB BLOOD ADD-ON Performing Organization Address City/[facility]/ZIP [facility] Phon e Number [facility] LABORATORIES - [address] [place] [address] [facility] CBC with Differential, Blood (08/22/2018 3:25 PM CDT) [facility] Method Time Signature Hemoglobin 14.6 11.6 - 08/22/2018 [facility] 15.0 g/dL 3:53 PM CDT LABORATORIES - [facility] Hematocrit 43.9 35.5 - 08/22/2018 [facility] 44.9 % 3:53 PM CDT LABORATORIES - [facility] Erythrocytes 5.13 3.92 - 08/22/2018 [facility] 5.13 3:53 PM CDT LABORATORIES - x10(12)/L [facility] MCV 85.6 78.2 - 08/22/2018 [facility] 97.9 fL 3:53 PM CDT LABORATORIES - [facility] RBC Distrib Width 13.7 12.2 - 08/22/2018 [facility] 16.1 % 3:53 PM CDT LABORATORIES - [facility] Platelet Count 256 157 - 371 08/22/2018 [facility] x10(9)/L 3:53 PM CDT LABORATORIES - [facility] Leukocytes 7.4 3.4 - 9.6 08/22/2018 [facility] x10(9)/L 3:53 PM CDT LABORATORIES - [facility] Neutrophils 5.16 1.56 - 08/22/2018 [facility] 6.45 3:53 PM CDT LABORATORIES - x10(9)/L [facility] Lymphocytes 1.73 0.95 - 08/22/2018 [facility] 3.07 3:53 PM CDT LABORATORIES - x10(9)/L [facility] Monocytes 0.43 0.26 - 08/22/2018 [facility] 0.81 3:53 PM CDT LABORATORIES - x10(9)/L [facility] Eosinophils 0.03 0.03 - 08/22/2018 [facility] 0.48 3:53 PM CDT LABORATORIES - x10(9)/L [facility] Basophils 0.03 0.01 - 08/22/2018 [facility] 0.08 3:53 PM CDT LABORATORIES - x10(9)/L [facility] Specimen Anatomical Collection Method Collection Time Receive d Time (Source) Location / / Volume Laterality Blood (Blood, 08/22/2018 3:25 PM 08/23/19 19 3:46 Venous) CDT PM CDT Karlene Polo APRN.N.P. LAB BLOOD ADD-ON Performing Organization Address City/State/ZIP Code Phon e Number [facility] LABORATORIES - [address] [place], [place] [address] [facility] DX Lumbar Spine 2-3 Views (05/19/2018 10:23 AM EMERGENCY WORKER) Anatomical Region Laterality Modality Lumbar Spine, Musculoskeletal RST LOS, Neuroradiology N/A Digital Radiography ARZ LOS, Muskuloskeletal FLA LOS Specimen (Source) Anatomical Collection Method Collection Time Re ceived Time Location / / Volume Laterality 05/19/2018 10:30 AM EMERGENCY WORKER Impressions 05/19/2018 10:30 AM EMERGENCY WORKER IMPRESSION: ??Mild multilevel degenerative spondylosis. Slight wedging of T12. Cholecystectomy clips. IUD. Adjustable g astric band. Narrative 05/19/2018 10:30 AM EMERGENCY WORKER EXAM: ??DX LUMBAR SPINE 2-3 VIEWS Procedure Note Richardson Packer M.D. - 05/19/2018For matting of this note might be different from the original. EXAM: DX LUMBAR SPINE 2-3 VIEWS IMPRESSION: Mild multilevel degenerative spondylosis. Slight wedging of T12. Cholecystectomy clips. IUD. Adjustable g astric band. Velma Munson APRN, C.N.P. IMG DIAGNOSTIC IMAGING P ROCEDURES DX Hips and Pelvis Bilateral 5+ Views (05/19/2018 10:22 AM EMERGENCY WORKER) Anatomical Region Laterality Modality Lower Extremity, Pelvis, Hip, Musculoskeletal RST LOS, Bilat eral Digital Radiography Musculoskeletal ARZ LOS, Muskuloskeletal FLA LOS Specimen (Source) Anatomical Collection Method Collection Time Re ceived Time Location / / Volume Laterality 05/19/2018 10:28 AM EMERGENCY WORKER Impressions 05/19/2018 10:29 AM EMERGENCY WORKER IMPRESSION: ??Minimal scattered degenerative changes of the pelvis and both hips. Right femoral neck bone island. IUD. Lap aroscopic adjustable gastric band, port and tube is partially seen. Narrative 05/19/2018 10:29 AM EMERGENCY WORKER EXAM: ??DX HIPS AND PELVIS BILATERAL 5+ [...]
--- OUTSIDE RECORDS SUMMARY | 2022-02-16 15:05 | XMS_ITS | Encounter Summary ---
:1970 Author Organization [facility] Address [address] [place] [address] Care Team Providers Name Role Phone Unavailable Primary Care Provider Unavailable Reason for Visit Appointment Request (Routine) - Closed Specialty Diagnoses / Procedures Referred By Contact Refer red To Contact Rheumatology Referral ID Status Reason Start Date Expiration Date Visits Requ ested Visits Authorized [id number] Closed 01/16/2018 01/16/2019 1 1 Encounter Details Date Type Department Care Team Description 01/25/2018 Office Visit Division of Velma Munson Arthritis In flammatory (HCC) (Primary Dx); Rheumatology in [place], BILINGUAL INSIDE SALES REPRESENTATIVE, C.N.P. Pain Hip Left; [place], [place] [address] [facility] High Risk Medication [address] [place] [phone] Social History Tobacco Use Types Packs/Day Years [...] but on a reevaluation later by a gravure press operator the diagnosis was refuted. She later established care with a gravure press operator at [facility] who made a formal diagnosis of mixed [...] will probably need to go back on [facility] for the Raynauds. Patient was in agreement with this plan. #2 Pain Hip Left No synovitis or tenosynovitis noted on MRI. I believe she would benefit from another round of Physical therapy. Patient would prefer to see someone in [place] for this. #3 High Risk Medication At [...]
--- OUTSIDE RECORDS SUMMARY | 2022-02-16 15:05 | XMS_ITS | Encounter Summary ---
:1970 Author Organization [facility] Address [address] [place] [address] Care Team Providers Name Role Phone Unavailable Primary Care Provider Unavailable Encounter Details Date Type Department Care Team Description 04/05/2018 Hospital Encounter Department of Gigi Mcbride ve Disorder Laboratory Medicine Alex Mccauley and Pathology, [place] [address] [place] [address], in [place], [place] [phone] [place] [address] [place], [place] (Work) [phone] Social History Tobacco Use [...] with Dr. Jackson in psychiatry next week. SET UP documented in this encounter Plan of Treatment Not on filedocumented as of this encounter Procedures Procedure Name Priority Date/Time Associated Comments Diagnosis AMITRIPTYLINE AND Routine 04/05/2018 12:51 Depressive Disorder Results for this NORTRIPTYLINE LEVEL, S PM MILL SET UP proce dure are in the results section. documented in this encounter Results (ABNORMAL) Amitriptyline and Nortriptyline Level (04/05/2018 12:51 PM MILL SET UP) [facility] Method Time Signature Amitriptyline 161 Not applicable 04/06/2018 [facility] ng/mL 6:18 PM MILL SET UP [address] Nortriptyline 75 70 - 170 ng/mL 04/06/2018 [facility] 6:18 PM MILL SET UP [facility] Amitriptyline and 236 (H) 80 - 200 ng/mL 04/06/2018 [facility] Nortriptyline 6:18 PM MILL SET UP [facility] Comment: ----ADDITIONAL INFORMATION---- This test was developed and its performa nce characteristics determined by [facility] in a manner consistent with CLIA requirements. This test has not been cleared or approved by the [place] d and Drug Administration. Specimen Anatomical Collection Method Collection Time Receive d Time (Source) Location / / Volume Laterality Blood (Blood, 04/05/2018 12:51 04/06/2018 7:53 Venous) PM MILL SET UP AM MILL SET UP Gigi Mcbride M.D. LAB BLOOD NON ADD-ON Performing Organization Address City/State/ZIP Code Phon e Number [facility] [address] [place], [place] [address] [facility] documented in this encounter Visit Diagnoses Diagnosis Depressive Disorder documented in this encounter Additional Health Concerns Assessment Noted Time PHQ-9 Depression Total Score: 7 08/19/2017 3:59 PM CDT documented as of this encounter
--- OUTSIDE RECORDS SUMMARY | 2022-02-16 15:05 | XMS_ITS | Encounter Summary ---
:1970 Author Organization [facility] Address [address] [place] [address] Care Team Providers Name Role Phone Unavailable Primary Care Provider Unavailable Reason for Referral Outpatient (Routine) - Closed Specialty Diagnoses / Procedures Referred By Contact Refer red To Contact Diagnoses Depression Anxiety Gigi Mcbride M.D. [facility] Procedures ECG 12 Lead NV EKG 12 LEAD TRACE ONLY NV EKG I&R ONLY [address] [place] [address] [phone] Referral ID Status Reason Start Date Expiration Date Visits Requ ested Visits Authorized [id number] Closed 04/05/2018 04/05/2019 1 1 MOBILE TAILLIGHT ASSEMBLER Reason for Visit Outpatient (Routine) - Closed Specialty Diagnoses / Procedures Referred By Contact Refer red To Contact Sleep Medicine Diagnoses Insomnia Bony Jackson M.D. [facility] [address] [place], [place] [phone] Referral ID Status Reason Start Date Expiration Date Visits V isits Requested Authorized [id number] Closed Specialty 03/06/2018 03/06/2019 1 1 Services Required Encounter Details Date Type Department Care Team Description 04/05/2018 Office Visit [facility] Gigi Mcbride, Insomnia (Primary Dx); Medicine in [place] Depression Anxiety [place] [address] [facility] [address] [place] [phone] Social History Tobacco Use Types Packs/Day Years [...] Comments Blood Pressure 116/89 04/05/2018 11:06 AM AUTOMOBILE TAILLIGHT ASSEMBLER Pulse 88 04/05/2018 11:06 AM AUTOMOBILE TAILLIGHT ASSEMBLER Temperature - - Respiratory Rate - - Oxygen Saturation - - Inhaled Oxygen Concentration - - Weight 60.9 kg (134 lb 4.2 oz) 04/05/2018 11:06 AM AUTOMOBILE TAILLIGHT ASSEMBLER Height 157.7 cm (5' 2.09) 04/05/2018 11:06 AM AUTOMOBILE TAILLIGHT ASSEMBLER Body Mass Index 24.49 04/05/2018 11:06 AM AUTOMOBILE TAILLIGHT ASSEMBLER documented in this encounter Progress Notes Giig Mcbried M.D. - 04/05/2018 11:00 AM CST REFERRAL [...] the patient for a few sessions at [place] [address]. Otherwise, I can arrange for her to [...] she could have these tests done in [place], but that turned-out to be difficult. 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 As [id number] diphenhydramine (Benadryl) seems to help, however, with [...] [address] Job ID: [id number] MOBILE TAILLIGHT ASSEMBLER documented in this encounter Plan of Treatment Not on filedocumented as of this encounter Results ECG 12 Lead (04/05/2018 1:04 PM AUTOMOBILE TAILLIGHT ASSEMBLER) P athologist Signature Ventricular Rate 98 BPM MUSE ECG/Min NV Interval 158 ms MUSE QRSD Interval 106 ms MUSE QT Interval 372 ms MUSE QTC Interval 475 ms MUSE P [place] 68 degrees MUSE R [place] -13 degrees MUSE T Wave [place] 58 degrees MUSE Specimen Anatomical Collection Method Collection Time Receive d Time (Source) Location / / Volume Laterality 04/05/2018 1:04 PM 8 1:12 AUTOMOBILE TAILLIGHT ASSEMBLER PM AUTOMOBILE TAILLIGHT ASSEMBLER Impressions MUSE - 04/05/2018 1:12 PM AUTOMOBILE TAILLIGHT ASSEMBLER Normal sinus rhythm Normal ECG No previous [...] Amitriptyline and Nortriptyline Level (04/05/2018 12:51 PM AUTOMOBILE TAILLIGHT ASSEMBLER) [facility] Method Time Signature Amitriptyline 161 Not applicable 04/06/2018 [facility] ng/mL 6:18 PM AUTOMOBILE TAILLIGHT ASSEMBLER [facility] Nortriptyline 75 70 - 170 ng/mL 04/06/2018 [facility] 6:18 PM AUTOMOBILE TAILLIGHT ASSEMBLER [facility] Amitriptyline and 236 (H) 80 - 200 ng/mL 04/06/2018 [facility] Nortriptyline 6:18 PM AUTOMOBILE TAILLIGHT ASSEMBLER [facility] Comment: ----ADDITIONAL INFORMATION---- This test was developed and its performa nce characteristics determined by [facility] in a manner consistent with CLIA requirements. This test has not been cleared or approved by the [place]. [place] d and Drug Administration. Specimen Anatomical Collection Method Collection Time Receive d Time (Source) Location / / Volume Laterality Blood (Blood, 04/05/2018 12:51 04/06/2018 7:53 Venous) PM AUTOMOBILE TAILLIGHT ASSEMBLER AM AUTOMOBILE TAILLIGHT ASSEMBLER Gigi Mcbride M.D. LAB BLOOD NON ADD-ON Performing Organization Address City/State/ZIP Code Phon e Number [facility] [address] [place] [address] [facility] documented in this encounter Visit Diagnoses Diagnosis Insomnia - Primary Depression Anxiety documented in this encounter Additional Health Concerns Assessment Noted Time PHQ-9 Depression Total Score: 7 08/19/2017 3:59 PM CDT documented as of this encounter
--- OUTSIDE RECORDS SUMMARY | 2022-02-16 15:05 | XMS_ITS | Encounter Summary ---
:1970 Author Organization [facility] Address [address] [place] [address] Care Team Providers Name Role Phone Unavailable [...]
--- OUTSIDE RECORDS SUMMARY | 2022-02-16 15:05 | XMS_ITS | Encounter Summary ---
:1970 Author Organization [facility] Address [address] [place] [address] Care Team Providers Name Role Phone Unavailable Primary Care Provider Unavailable Encounter Details Date Type Department Care Team Description 05/17/2018 Hospital Encounter Department of Velma Munson Laboratory Medicine L, LONG, C.N .P. Inflammatory (HCC) and Pathology, [address] [place] [address] in [facility] [address] [place] [phone] [place] [address] (Work) [place], [place] [phone] (Fax) [phone] Social History Tobacco Use Types Packs/Day Years [...] 3:16 Arthritis Res ults for this PM ELECTRONICS TEST ENGINEER Inflammatory (HCC) procedure are in the results section. CBC WITH DIFFERENTIAL, B Routine 05/17/2018 3:16 Arthritis Results for this PM ELECTRONICS TEST ENGINEER Inflammatory (HCC) procedure are in the results section. C-REACTIVE PROTEIN Routine 05/17/2018 3:16 Arthritis Result s for this (CRP), S/P PM ELECTRONICS TEST ENGINEER Inflammatory (HCC) procedure are in the results section. ASPARTATE Routine 05/17/2018 3:16 Arthritis Results for this AMINOTRANSFERASE (AST), PM ELECTRONICS TEST ENGINEER Inflammatory (HCC ) procedure are in S/P the results section. CREATININE WITH EGFR, Routine 05/17/2018 3:16 Arthritis Res ults for this S/P PM ELECTRONICS TEST ENGINEER Inflammatory (HCC) procedure are in the results section. documented in this encounter Results CBC with Differential, Blood (05/17/2018 3:16 PM ELECTRONICS TEST ENGINEER) [facility] Method Time Signature Hemoglobin 13.8 11.6 - 05/17/2018 [facility] 15.0 g/dL 3:52 PM ELECTRONICS TEST ENGINEER LABORATORIES [facility] Hematocrit 41.4 35.5 - 05/17/2018 [facility] 44.9 % 3:52 PM ELECTRONICS TEST ENGINEER LABORATORIES [facility] Erythrocytes 4.94 3.92 - 05/17/2018 [facility] 5.13 3:52 PM ELECTRONICS TEST ENGINEER LABORATORIES - x10(12)/L [facility] MCV 83.8 78.2 - 05/17/2018 [facility] 97.9 fL 3:52 PM ELECTRONICS TEST ENGINEER LABORATORIES - [facility] RBC Distrib Width 13.2 12.2 - 05/17/2018 [facility] 16.1 % 3:52 PM ELECTRONICS TEST ENGINEER LABORATORIES - [facility] Platelet Count 260 157 - 371 05/17/2018 [facility] x10(9)/L 3:52 PM ELECTRONICS TEST ENGINEER LABORATORIES - [facility] Leukocytes 7.9 3.4 - 9.6 05/17/2018 [facility] x10(9)/L 3:52 PM ELECTRONICS TEST ENGINEER LABORATORIES - [facility] Neutrophils 5.55 1.56 - 05/17/2018 [facility] 6.45 3:52 PM ELECTRONICS TEST ENGINEER LABORATORIES - x10(9)/L [facility] Lymphocytes 1.79 0.95 - 05/17/2018 [facility] 3.07 3:52 PM ELECTRONICS TEST ENGINEER LABORATORIES - x10(9)/L [facility] Monocytes 0.49 0.26 - 05/17/2018 [facility] 0.81 3:52 PM ELECTRONICS TEST ENGINEER LABORATORIES - x10(9)/L [facility] Eosinophils <0.03 0.03 - 05/17/2018 [facility] 0.48 3:52 PM ELECTRONICS TEST ENGINEER LABORATORIES - x10(9)/L [facility] Basophils 0.03 0.01 - 05/17/2018 [facility] 0.08 3:52 PM ELECTRONICS TEST ENGINEER LABORATORIES - x10(9)/L [facility] Specimen Anatomical Collection Method Collection Time Receive d Time (Source) Location / / Volume Laterality Blood (Blood, 05/17/2018 3:16 PM 05/17/19 19 3:35 Venous) ELECTRONICS TEST ENGINEER PM ELECTRONICS TEST ENGINEER Velma Munson APRN C.N.P. LAB BLOOD ADD-ON Performing Organization Address City/State/ZIP Code Phon e Number [facility] LABORATORIES - [address] [place], [place] [address] [facility] Creatinine with Estimated GFR (05/17/2018 3:16 PM ELECTRONICS TEST ENGINEER) Analysis Performed At Patho logist Time Signature Creatinine 0.90 0.59 - 05/17/2018 [facility] 1.04 mg/dL 4:15 PM ELECTRONICS TEST ENGINEER LABORATORIES - [facility] eGFR-Non 77 >=60 05/17/2018 [facility] Black/ mL/min/BSA 4:15 PM ELECTRONICS TEST ENGINEER LABORATORIES - [facility] Comment: ----ADDITIONAL INFORMATION---- Estimated GFR calculated using the 2009 CKD_EPI creatinine equation. eGFR-Black/ 89 >=60 mL/min/BSA 05/17/2018 4:15 [facility] ELECTRONICS TEST ENGINEER LABORATORIES - [facility] Comment: ----ADDITIONAL INFORMATION---- Estimated GFR calculated using the 2009 CKD_EPI creatinine equation. Specimen Anatomical Collection Method Collection Time Receive d Time (Source) Location / / Volume Laterality Blood (Blood, 05/17/2018 3:16 PM 05/17/19 19 3:34 Venous) ELECTRONICS TEST ENGINEER PM ELECTRONICS TEST ENGINEER Velma Munson APRN, C.N.P. LAB BLOOD ADD-ON Performing Organization Address City/[facility] Code Phon e Number [facility]IES - [address] CRP (C-Reactive Protein) (05/17/2018 3:16 PM ELECTRONICS TEST ENGINEER) P athologist Signature C-Reactive <3.0 <=8.0 mg/L 05/17/2018 [facility] Protein (CRP), 4:15 PM ELECTRONICS TEST ENGINEER LABORATORIES - [facility] Specimen Anatomical Collection Method Collection Time Receive d Time (Source) Location / / Volume Laterality Blood (Blood, 05/17/2018 3:16 PM 05/17/19 19 3:34 Venous) ELECTRONICS TEST ENGINEER PM ELECTRONICS TEST ENGINEER Velma Munson APRN, C.N.P. LAB BLOOD ADD-ON Performing Organization Address [facility] Phon e Number [facility] - 200 [place] [phone] 05 [facility] AST (Aspartate Aminotransferase) (05/17/2018 3:16 PM ELECTRONICS TEST ENGINEER) Patholo gist Method Time Signature Aspartate 17 8 - 43 05/17/2018 [facility] Aminotransferase U/L 4:15 PM ELECTRONICS TEST ENGINEER LABORATORIE S - (AST), [facility] Specimen Anatomical Collection Method Collection Time Receive d Time (Source) Location / / Volume Laterality Blood (Blood, 05/17/2018 3:16 PM 05/17/19 19 3:34 Venous) ELECTRONICS TEST ENGINEER PM ELECTRONICS TEST ENGINEER Velma Munson APRN, C.N.P. LAB BLOOD ADD-ON Performing Organization Address City/[facility] Code Phon e Number [facility]IES - 200 [place] [phone] [facility] Sedimentation Rate (05/17/2018 3:16 PM ELECTRONICS TEST ENGINEER) [facility] gist Method Time Signature Sedimentation 5 0 - 29 05/17/2018 [facility] Rate, B mm/1 h 4:52 PM ELECTRONICS TEST ENGINEER LABORATORIES - [facility]) Specimen Anatomical Collection Method Collection Time Receive d Time (Source) Location / / Volume Laterality Blood (Blood, 05/17/2018 3:16 PM 05/17/19 19 3:35 Venous) ELECTRONICS TEST ENGINEER PM ELECTRONICS TEST ENGINEER Velma Munson APRN C.N.P. LAB BLOOD ADD-ON Performing Organization Address City/State/ZIP Code Phon e Number [facility] - 200 [place] [phone] [facility] documented in this encounter Visit Diagnoses Diagnosis Arthritis Inflammatory (HCC) documented in this encounter Additional Health Concerns Assessment Noted Time PHQ-9 Depression Total Score: 15 04/21/2018 1:00 PM CS T documented as of this encounter
--- OUTSIDE RECORDS SUMMARY | 2022-02-16 15:05 | XMS_ITS | Encounter Summary ---
:1970 Author Organization [facility] Address [address] [place] [address] Care Team Providers Name Role Phone Unavailable Primary Care Provider Unavailable Reason for Visit Reason Comments Med Management Outpatient (Routine) - Closed Specialty Diagnoses / Procedures Referred By Contact Refer red To Contact Pharmacy Diagnoses [facility] - Pharmacogenomics eConsult M.DLennox [address] [place] [phone] Referral ID Status Reason Start Date Expiration Date Visits Requ ested Visits Authorized [id number] Closed 04/17/2018 04/17/2019 1 1 Encounter Details Date Type Department Care Team Description 04/17/2018 Medication Department of Tamir Butcher Clinical R esearch Management Medical Genetics in A, MLennoxDLennox Exam [facility], [address] [place] [address] [place] [address] [place], [place] [phone] (Work) [phone] Social History Tobacco Use Types Packs/Day Years [...] or relatives? How often do you attend restoration or More than 4 times per year 11/16/2021 evangelical services? Do you belong to any clubs or No 11/16/2021 organizations such as restoration groups, unions, fraternal or athletic groups, or [...] as of this encounter Consult Notes Yassine Leal Pharm.D., R.Ph. - 04/17/2018 1:30 PM CST SUBJECTIVE REASON FOR CONSULT Patient was referred by Tamir Butcher M.D. as a participant in IRB # [id number] (Utility of Pharmacogenomic Testing in Patients with [...] these pathways should be closely monitored. Yassine Leal, PharmLennoxD., R.Ph. Clinical Pharmacist TICE REPRESENTATIVE documented in this encounter Plan of Treatment Not on filedocumented as of this encounter Visit Diagnoses Diagnosis Clinical Research Exam documented in this encounter Additional Health Concerns Assessment Noted Time PHQ-9 Depression Total Score: 15 04/21/2018 1:00 PM CS T documented as of this encounter
--- OUTSIDE RECORDS SUMMARY | 2022-02-16 15:05 | XMS_ITS | Encounter Summary ---
:1970 Author Organization [facility] Address [address] [place] [address] Care Team Providers Name Role Phone Unavailable [...]
--- OUTSIDE RECORDS SUMMARY | 2022-02-16 15:08 | XMS_ITS | Encounter Summary ---
:[address] [facility] Address [address] [place] [address] Care Team Providers Name Role Phone None, Pcp Primary Care Provider Unavailable Reason for Visit Reason Comments PPD Placement Encounter Details Date Type Department Care Team Description 02/16/2021 Immunization [place] Screening for tuberculosis [address] (Primary Dx) [place], [place] [address] Social History Tobacco Use Types Packs/Day Years Used Date Never Assessed Sex Assigned at Date Recorded Not on file documented as of this encounter Plan of Treatment Not on filedocumented as of this encounter Visit Diagnoses Diagnosis Screening for tuberculosis - Primary Screening examination for pulmonary tube rculosis documented in this encounter Care Teams Visual Stylist Relationship Specialty Start Date End Date None, Pcp PCP - General Veterinary Poultry Inspector 02/16/[address] [place] [phone] documented as of this encounter
--- OUTSIDE RECORDS SUMMARY | 2022-02-16 15:08 | XMS_ITS | Encounter Summary ---
:1970 Author Organization [facility] Address [address] [place] [address] Care Team Providers Name Role Phone None, Pcp Primary Care Provider Unavailable Encounter Details Date Type Department Care Team Description 02/23/2021 Telephone [place] None, Pcp [address] [place], [place] [address] [place] [address] Social History Tobacco Use Types Packs/Day Years [...] rculosis documented in this encounter Care Teams Ore Crushing Dust Collector Relationship Specialty Start Date End Date None, Pcp PCP - General Social Contact Worker 02/16/21 [address] [place] [address] documented as of this encounter
--- OUTSIDE RECORDS SUMMARY | 2022-02-16 15:08 | XMS_ITS | Encounter Summary ---
:1970 Author Organization [facility] Address [address], [place] [address] Care Team Providers Name Role Phone Unavailable Primary Care Provider Unavailable Reason for Visit Reason Comments Referral [place], Hyperprolactinem ia and Prolactinoma Encounter Details Date Type Department Care Team Description 08/19/2020 Telephone [facility] 3800 Nurse, [id number] End Referral ([place], Endocrinology [address] [employer] Hyperprolactinemia and [address] [employer] [address] Prolactinoma) [facility] [phone] Social History Tobacco Use Types Packs/Day Years [...] 08/19/2020 9:31 AM CDT Received referral from [facility] from Dr. Kelly Ramirez for patient to be seen for History of Hyperprolactinemia and Prolactinoma. Records sent to scan docs and [facility] for patient to call back and schedule the consul with an MD. documented in this encounter Plan of Treatment Upcoming Encounters Date Type Specialty Care Team Description 03/18/2022 Appointment Urology Camacho Dietrich PA-C [address] [facility] [address] (Wo rk) documented as of this encounter Visit Diagnoses Not on filedocumented in this encounter
--- OUTSIDE RECORDS SUMMARY | 2022-02-16 15:08 | XMS_ITS | Clinical Summary ---
:1970 Author Organization [facility] Address [address] [place] [address] Care Team Providers Name Role Phone None, [...] Date Last Done Comments CT Colonography 1971 FIT-DNA 1971 Mammogram 1970 Pap Smear 1970 Sigmoidoscopy 1971 iFOBT 1971 COVID-19 Vaccine (4 - Booster 12/30/2021 12/24/2020, for Pfizer series) 05/15/2020, 04/24/2020 Zoster Vaccines (1 of 2) 12/30/2021 Colonoscopy 11/19/2030 11/19/2020 Colorectal Cancer Screening 11/19/2030 HPV Vaccines Aged Out No longer eligib le based on patient's age to complete this to pic Pneumococcal Vaccine: Aged Out No longer eligible based Pediatrics (0 to 5 Years) and on patient's age to At-Risk Patients (6 to 64 comple te this topic Years) Care Teams Tailings Worker Relationship Specialty Start Date End Date None, Pcp PCP - General Hat Body Inspector 02/16/[address] [place] [phone]
--- OUTSIDE RECORDS SUMMARY | 2022-02-16 15:08 | XMS_ITS | Encounter Summary ---
:1970 Author Organization [facility] Address [address] [place] [address] Care Team Providers Name Role Phone None, Pcp Primary Care Provider Unavailable Encounter Details Date Type Department Care Team Description 02/23/2021 Telephone [place] Domo Bateman MD [address] [facility] 20 1705 [facility] 20 [place], [place] [address] [place], [place] [phone] (Wo rk) Social History Tobacco Use Types [...] on filedocumented in this encounter Care Teams Cleaning And Washing Equipment Operator Relationship Specialty Start Date End Date None, Pcp PCP - General Remediation Consultant 02/16/21 [address] [place] [address] documented as of this encounter
--- OUTSIDE RECORDS SUMMARY | 2022-02-16 15:08 | XMS_ITS | Clinical Summary ---
:1970 Author Organization [facility] Address [address] [place] [address] Care Team Providers Name Role Phone Unavailable [...] for each transition of care or referral. [employer] Allergies Active Allergy Reactions Severity Noted Date [...] Recorded Not on file Plan of Treatment Upcoming Encounters Date Type Specialty Care Team Description 03/18/2022 Appointment Urology Camacho Dietrich, KATIANA [address] [facility] [address] [address] (Wo rk) Health Maintenance Due Date Last Done Comments Cervical Cancer Screening 1970 Due Colon Cancer Screening Plan 1970 Due Hep C Screening (Preventive 1970 Services) HepB (1) 1971 Mammogram 01/01/1972 COVID-19 Vaccine (#1) 06/29/1972 HIV Screening (Preventive 1987 Services) Adult Preventive Visit 12/30/1989 Cholesterol 12/30/2016 Zoster/Shingles (1 of 2) 12/30/2021 Influenza (#1) 2021 03/25/2021, 01/28/2020, 01/23/2020, Additional history exists DTaP/Tdap/Td (2 - Tdap) [...] ss Type Group BCBS BCBS OUT OF [id number] 2020-Present [address] [address] [place] [address]
--- OUTSIDE RECORDS SUMMARY | 2022-02-16 15:08 | XMS_ITS | Encounter Summary ---
:1970 Author Organization [facility] Address [address] [place] [address] Care Team Providers Name Role Phone None, Pcp Primary Care Provider Unavailable Reason for Visit Reason Comments Immunizations PPD Encounter Details Date Type Department Care Team Description 02/23/2021 Immunization [place] [address] [facility] [place], [place] [address] Social History Tobacco Use [...] on filedocumented in this encounter Care Teams Seismic Interpreter Relationship Specialty Start Date End Date None, Pcp PCP - General Organ Pipe Maker Metal 02/16/21 [address] [place] [phone] documented as of this encounter
--- OUTSIDE RECORDS SUMMARY | 2022-02-16 15:08 | XMS_ITS | Encounter Summary ---
:1970 Author Organization [facility] Address [address], [place] [address] Care Team Providers Name Role Phone Unavailable Primary Care Provider Unavailable Reason for Visit Reason Onset Date Comments No Show 10/03/2020 Encounter Details Date Type Department Care Team Description 10/03/2020 Telemedicine [place] Nancy, Encounters for Endocrinology Ray Gonzales MD administrative purposes [address] (Primary Dx) [place] [address] [address] [phone] [place], [place] [address] Social History Tobacco Use Types Packs/Day Years [...] 03/18/2022 Appointment Urology Camacho Dietrich PA-C [address] [facility] N [phone] (Wo rk) documented as of this encounter Visit Diagnoses Diagnosis Encounters for administrative purposes - Primary Encounters for unspecified administrativ e purpose documented in this encounter
--- OUTSIDE RECORDS SUMMARY | 2022-02-16 15:08 | XMS_ITS | Encounter Summary ---
:1970 Author Organization [facility] Address [address] [address] Care Team Providers Name Role Phone Unavailable Primary Care Provider Unavailable Reason for Referral Procedure/Equipment (Routine) - Incomplete Specialty Diagnoses / Procedures Referred By Contact Refer red To Contact Diagnoses Pituitary tumor (HRC) Ray Cruz MD Procedures MR Brain W/WO IV Cont [address] [place], [place] [address] Referral ID Status Reason Start Date Expiration Date Visits V isits Requested Authorized [id number] Incomplete 09/02/2020 12/02/2021 1 1 Reason for Visit Reason Comments CONSULT Encounter Details Date Type Department Care Team Description 09/02/2020 Telemedicine [facility] [address], Pituitary tumor (Primary Dx); Endocrinology Ray Gonzales MD Prolactinoma (HRC) [address] [facility] [address] [facility] [place] [address] [id number] Social History Tobacco Use Types Packs/Day Years [...] Pt had a 4mm pituitary lesion, and production support developer thought she should get it rechecked it since it has been awhile. Pt was diagnosed with it initially in ~2011 in [place]. Pt is unsure how they found it, but she reports having nipple discharge at that time. Pt has never been on medication for it (cabergoline). She doesn't recall any workup initially for evaluation. She reports she did see an Civil Cad Designer initially in [place] once when diagnosed. Pt has chronic migraines [...] never had treatment for. She reports seeing Civil Cad Designer when first diagnosed, but no follow-up since then. Symptoms suggestive of possible hypothyroidism or excess cortisol, will screen. Recent prolactin level normal. #pituitary tumor - repeat pituitary MRI - check labwork including FT4, AM cortisol, IGF-1 and LNSCx2 RTC in 1 month to discuss results of labwork and imaging Total time personally spent with patient heml-no-vzho: 20 minutes. Additional 10 minutes were spent on chart review, clinical decision-making, and documentation outside of ulza-db-kltj time with patient on date of patient [...] 03/18/2022 Appointment Urology Camacho Dietrich PA-C [address] [place] [address] [facility] [id number] (Wo rk) documented as of this encounter Results Insulin-Like Growth Factor (09/04/2020 2:49 PM CDT) [facility] Method Time Signature Insulin-Like 140 60 [...] b etween -2.0 and +2.0. Performed By: [email or web address] [address] [place] [id number] Cylinder Die Machine Helper: Dotty Preciado MD Specimen Anatomical Collection Method / Collection Time Recei chelsey Time (Source) Location / Volume Laterality Blood Venipuncture / 09/04/2020 2:49 09/04/2020 2:59 Unknown PM CDT PM CDT Ray Cruz MD LAB_1 Performing Organization Address City/[facility]/ZIP Code Phon e Number [place] [phone] Cortisol AM (09/04/2020 2:49 PM CDT) P athologist Signature Cortisol 10.0 2.9 - 19.4 09/04/2020 [facility] mcg/dL 7:10 PM CDT LABORATORY Specimen Anatomical Collection Method / Collection Time Recei chelsey Time (Source) Location / Volume Laterality Blood Venipuncture / 09/04/2020 2:49 09/04/2020 2:59 Unknown PM CDT PM CDT Narrative [facility] - 09/04/2020 7:10 P M CDT Expected values AM (before 10am): 3.7-19.4 mcg/dL PM (after 5pm): 2.9-17.3 mcg/dL Ray Cruz MD LAB_1 Performing Organization Address [facility] Phon e Number [facility] [address] [place] [address] Free T4 (09/04/2020 2:49 PM CDT) athologist Signature T4, Free 0.90 0.70 - 1.50 09/04/2020 [facility] ng/dL 7:10 PM CDT LABORATORY Specimen Anatomical Collection Method / Collection Time Recei chelsey Time (Source) Location / Volume Laterality Blood Venipuncture / 09/04/2020 2:49 09/04/2020 2:59 Unknown PM CDT PM CDT Ray Cruz MD LAB_1 Performing Organization Address [facility] Phon e Number [facility] [address] [place] [address] MR Brain W/WO IV Cont (09/04/2020 2:43 [...]
--- OUTSIDE RECORDS SUMMARY | 2022-02-16 15:08 | XMS_ITS | Encounter Summary ---
:1970 Author Organization [facility] Address [address] [address] Care Team Providers Name Role Phone Unavailable Primary Care Provider Unavailable Reason for Visit Procedure/Equipment (Routine) - Incomplete Specialty Diagnoses / Procedures Referred By Contact Refer red To Contact Diagnoses Pituitary tumor (HRC) aRy Cruz MD Procedures MR Brain W/WO IV Cont [address] [place], [place] [address] Referral ID Status Reason Start Date Expiration Date Visits V isits Requested Authorized [id number] Incomplete 09/02/2020 12/02/2021 1 1 Encounter Details Date Type Department Care Team Description 09/04/2020 Ancillary Procedure Zhanna Cruz, Pituita ry tumor [place] [address] Ray Gonzales MD Radiology MRI [address] [facility] [address] [place] [address] [id number] Social History Tobacco Use Types Packs/Day Years Used Date Smoking Tobacco: Never Smokeless Tobacco: Never Sex Assigned at Date Recorded Not on file documented as of this encounter Plan of Treatment Upcoming Encounters Date Type Specialty Care Team Description 03/18/2022 Appointment Urology Camacho Dietrich PAShannen [address] [place] [address] [facility] [id number] (Wo rk) documented as of this encounter [...]
--- OUTSIDE RECORDS SUMMARY | 2022-02-16 15:08 | XMS_ITS | Encounter Summary ---
:1970 Author Organization [facility] Address [address] [place] [address] Care Team Providers Name Role Phone Unavailable Primary Care Provider Unavailable Encounter Details Date Type Department Care Team Description 09/04/2020 Lab Visit [place] [facility] Pituitary tumor [address] [place] [address] Social History Tobacco Use Types Packs/Day Years Used Date Smoking Tobacco: Never Smokeless Tobacco: Never Sex Assigned at Date Recorded Not on file documented as of this encounter Plan of Treatment Upcoming Encounters Date Type Specialty Care Team Description 03/18/2022 Appointment Urology Camacho Dietrich, KATIANA [address] [facility] [address] [id number] (Wo rk) documented as of this encounter [...] Insulin-Like Growth Factor (09/04/2020 2:49 PM CDT) [facility] Method Time Signature Insulin-Like 140 60 [...] b etween -2.0 and +2.0. Performed By: [email or web address] [address] [place] [address] Help Desk Supervisor: Dotty Preciado MD Specimen Anatomical Collection Method / Collection Time Recei chelsey Time (Source) Location / Volume Laterality Blood Venipuncture / 09/04/2020 2:49 09/04/2020 2:59 Unknown PM CDT PM CDT Ray Cruz MD LAB_1 Performing Organization Address [facility] Phon e Number [employer] [address] [place], [place] [phone] Cortisol AM (09/04/2020 2:49 PM CDT) P athologist Signature Cortisol 10.0 2.9 - 19.4 09/04/2020 [facility] mcg/dL 7:10 PM CDT LABORATORY Specimen Anatomical Collection Method / Collection Time Recei chelsey Time (Source) Location / Volume Laterality Blood Venipuncture / 09/04/2020 2:49 09/04/2020 2:59 Unknown PM CDT PM CDT Narrative [facility] - 09/04/2020 7:10 P M CDT Expected values AM (before 10am): 3.7-19.4 mcg/dL PM (after 5pm): 2.9-17.3 mcg/dL Ray Cruz MD LAB_1 Performing Organization Address City/[facility] Phon e Number [facility] [address] [place] [address] Free T4 (09/04/2020 2:49 PM CDT) P athologist Signature T4, Free 0.90 0.70 - 1.50 09/04/2020 [facility] ng/dL 7:10 PM CDT LABORATORY Specimen Anatomical Collection Method / Collection Time Recei chelsey Time (Source) Location / Volume Laterality Blood Venipuncture / 09/04/2020 2:49 09/04/2020 2:59 Unknown PM CDT PM CDT Ray Cruz MD LAB_1 Performing Organization Address City/State/ZIP Code Phon e Number [facility] [address] [place] [address] documented in this encounter Visit Diagnoses Diagnosis Pituitary tumor (HRC) 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
--- OUTSIDE RECORDS SUMMARY | 2022-02-16 15:08 | XMS_ITS | Encounter Summary ---
:1970 Author Organization [facility] Address [address] [place] [address] Care Team Providers Name Role Phone None, Pcp Primary Care Provider Unavailable Reason for Visit Reason Comments TB Read TB skin test reading Encounter Details Date Type Department Care Team Description 02/26/2021 Clinical Support [place] [address] [facility] [address] [place], [place] [address] Social History Tobacco Use Types Packs/Day Years Used Date Never Assessed Sex Assigned at Date Recorded Not on file documented as of this encounter Plan of Treatment Not on filedocumented as of this encounter Visit Diagnoses Not on filedocumented in this encounter Care Teams Saddle And Harness Maker Relationship Specialty Start Date End Date None, Pcp PCP - General Shank Skinner 02/16/21 [address] [place] [address] documented as of this encounter
== END 2022-02-16 14:53 | disposition home or self-care (01) ==
PROVIDERS: PCP Internal Medicine; Visit Provider Family Medicine
DX: R35.0 Frequency of micturition (principal)
CPT/HCPCS: 87086; 87186

== ENCOUNTER 2022-03-11 13:14 | Outpatient (CLI) | payer BC, SELFPAY ==
--- OUTSIDE RECORDS SUMMARY | 2022-03-15 11:18 | XMS_ITS | Clinical Summary ---
:1970 Author Organization [facility] [facility] [place] [address] Care Team Providers Name Role Phone Katerina [...] Tongue pain fluticasone (50 mcg Inhale 1 [place] into 1 Bottle 2 01/27/20 Active per [...] disease (HC). Has seen Rheumat ology at [place]. 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 Lesion of pituitary gland (HC). 4mm. stable. last note d on MRI 2013 in 08/23/2016 [place] Attention deficit hyperactivity disorder (ADHD), predo minantly [...] Type Group BLUE CROSS BLUE CROSS OF [id number] 2014-Present [address] [address] [place] [address] Care Teams Collections And Archives Director Relationship Specialty Start Date End Date Pcp, No PCP - General 02/28/19 . Katerina Contreras Physicist [employer] 07/21/16
--- OUTSIDE RECORDS SUMMARY | 2022-03-15 11:19 | XMS_ITS | Encounter Summary ---
:1970 Author Organization [facility] Address [address] [place] [address] Care Team Providers Name Role Phone Elsewhere, Pcp Primary Care Provider Unavailable Reason for Referral Outpatient (Routine) - Closed Specialty Diagnoses / Procedures Referred By Contact Refer red To Contact Diagnoses Gastro-Esophageal Reflux Disease With Esophagitis Without Bleeding Julián Edouard M.D. [facility] Procedures ECG 12 Lead [address] [place], [place] [address] Referral ID Status Reason Start Date Expiration Date Visits Requ ested Visits Authorized [id number] Closed 12/02/2021 12/02/2022 1 1 Outpatient (Routine) - Closed Specialty Diagnoses / Procedures Referred By Contact Refer red To Contact Thoracic Surgery Diagnoses Gastro-Esophageal Reflux Disease With Esophagitis Without Bleeding Julián Edouard [place] M.D. [address] [place] [address] Referral ID Status Reason Start Date Expiration Date Visits Requ ested Visits Authorized [id number] Closed 12/02/2021 12/02/2022 1 1 Encounter Details Date Type Department Care Team Description 12/02/2021 Orders Only Division of Annette EdouardEsophagdevendra al Gastroenterology in Julián Narayan M.D. Reflux Disease With [place], [place] [address] [facility] Esophagitis Without [address] [place], [place] Bleeding (Primary Dx) [place] [address] [phone] Social History Tobacco Use Types Packs/Day Years [...] Name Type Priority Associated Diagnoses [facility] - Outpatient Referral Routine Gastro-Esophage al Expected: Esophagus consult Reflux Disease With 06/2021 (clinic) Esophagitis Without (Approxi mate), Bleeding Expires: 03/04/2023 documented as of this encounter Results ECG 12 Lead (01/08/2022 1:52 PM CDT) P athologist Signature Ventricular Rate 82 BPM MUSE ECG/Min TN Interval 136 ms MUSE QRSD Interval 98 ms MUSE QT Interval 406 ms MUSE QTC Interval 474 ms MUSE P [place] 40 degrees MUSE R [place] -22 degrees MUSE T Wave [place] 39 degrees MUSE Specimen Anatomical Collection Method [...] documented as of this encounter Care Teams Charter Driver Relationship Specialty Start Date End Date Elsewhere, Pcp PCP - General Internal Medicine 10/22/19 documented as of this encounter
--- OUTSIDE RECORDS SUMMARY | 2022-03-15 11:19 | XMS_ITS | Encounter Summary ---
:1970 Author Organization [facility] Address [address] [place] [address] Care Team Providers Name Role Phone Elsewhere, Pcp Primary Care Provider Unavailable Reason for Visit Reason Comments Follow-up Encounter Details Date Type Department Care Team Description 12/02/2021 Clinical Communication Division of Wilda Edouard Gastroenterology in Julián Narayan M.D. [place], [place] [address] [facility] [address] [place] [address] [phone] Social History Tobacco Use Types Packs/Day Years [...] More than 4 times per year 11/16/2021 anabaptist services? Do you belong to any clubs [...] as of this encounter Care Teams Concrete Products Machine Operator Relationship Specialty Start Date End Date Elsewhere, Pcp PCP - General Internal Medicine 10/22/19 documented as of this encounter
--- OUTSIDE RECORDS SUMMARY | 2022-03-15 11:19 | XMS_ITS | Encounter Summary ---
:1970 Author Organization [facility] Address [address] [place] [address] Care Team Providers Name Role Phone Elsewhere, Pcp Primary Care Provider Unavailable Reason for Visit Outpatient (Routine) - Closed Specialty Diagnoses / Procedures Referred By Contact Refer red To Contact Diagnoses Gastro-Esophageal Reflux Disease With Esophagitis Without Bleeding Julián Edouard M.D. [facility] Procedures [place] Esophagram Double Contrast [place] Esophagram Single Contrast [address] [place] [address] Referral ID Status Reason Start Date Expiration Date Visits Requ ested Visits Authorized [id number] Closed 12/02/2021 12/02/2022 1 1 Encounter Details Date Type Department Care Team Description 01/08/2022 Hospital Encounter Department of [place], Gastro-E sophageal Radiology, [place] Julián Narayan M.D. Reflux Disease With Building, in [address] [place] [address] Esophagitis Without [place], [place] Bleeding [address] [place] [address] [place], [place] [phone] [address] (Work) [phone] Social History Tobacco Use Types Packs/Day Years [...] 11/16/2021 organizations such as mu-ism groups, unions, fraBeintoo or athletic groups, or school groups? How [...] mcg total) Arthritis Inflammatory by mouth daily. ([facility]) hydrOXYzine (ATARAX) 25 Take 25 mg by mouth 0 mg tablet every 6 (six) hours as needed for itching. ketorolac (TORADOL) 10 mg Take 1 tablet (10 20 tablet 0 tablet mg total) by mouth every 6 (six) hours as needed for pain. modafiniL (PROVIGIL) 100 Take 100 mg by 0 mg tablet mouth daily. pilocarpine (SALAGEN) 5 Take 1 tablet (5 [...] week. (HCC) Labs needed for further refills. pantoprazole (PROTONIX) Take 1 tablet (40 60 tablet 11 11/2603/04/2022 40 mg EC tablet mg total) by mouth 2 (two) times a day. syringe with needle (BD [...] COMPARISON: ??Abdominal x-ray 07/27/2017. Procedure Note Julián iSerra M.D. - 01/08/2022Formatt ing of this note [...] of laparoscopic gastric band. Cholecystecto my clips. Andry [facility] M.D. IMG FLUOROSCOPY PROCEDURES documented in this [...] documented as of this encounter Care Teams Director Of Testing Relationship Specialty Start Date End Date Elsewhere, Pcp PCP - General Internal Medicine 10/22/19 documented as of this encounter
--- OUTSIDE RECORDS SUMMARY | 2022-03-15 11:19 | XMS_ITS | Encounter Summary ---
:1970 Author Organization [facility] Address [address] [place] [address] Care Team Providers Name Role Phone Elsewhere, Pcp Primary Care Provider Unavailable Encounter Details Date Type Department Care Team Description 02/19/2022 Clinical Communication Division of [facility] Gastroenterology in Julián Narayan M.D. [place], [place] [address] [facility] [address] [place] [phone] Social History Tobacco Use Types Packs/Day Years [...] documented as of this encounter Care Teams Contact Worker Lithography Relationship Specialty Start Date End Date Elsewhere, Pcp PCP - General Internal Medicine 10/22/19 documented as of this encounter
--- OUTSIDE RECORDS SUMMARY | 2022-03-15 11:19 | XMS_ITS | Encounter Summary ---
:1970 Author Organization [facility] Address [address] [place] [address] Care Team Providers Name Role Phone Elsewhere, Pcp Primary Care Provider Unavailable Reason for Visit Outpatient (Routine) - Authorized Specialty Diagnoses / Procedures Referred By Contact Refer red To Contact Diagnoses Gastro-Esophageal Reflux Disease With Esophagitis Without Bleeding Julián Edouard M.D. [facility] Procedures Esophageal pH Testing [address] [place], [place] [phone] Referral ID Status Reason Start Date Expiration Date Visits V isits Requested Authorized [id number] Authorized 11/17/2021 11/17/2022 3 3 Encounter Details Date Type Department Care Team Description 12/01/2021 Hospital Encounter Division of [place], Gastro-Es ophageal Gastroenterology in Julián Narayan M.D. Reflux Disease With [place], [place] [address] Esophagitis Without [address] Bleeding (Primary [place], [place] [address] [place], ) [phone] Social History Tobacco Use Types Packs/Day Years [...] 11/16/2021 organizations such as worship groups, unions, fraUnited [employer] or athletic groups, or school groups? How [...] Inflammatory skin once a week. ([facility]) Labs needed for further refills. pantoprazole (PROTONIX) [...] Name Priority Date/Time Associated Diagnosis Comme nts CT PH STUDY NASL Routine 12/01/2021 1:39 PM Gastro-Esophageal Results for this CATH CDT Reflux Disease With procedur e are in Esophagitis Without the resu lts Bleeding section. documented in this encounter Results CT PH STUDY NASL CATH (12/01/2021 1:39 PM CDT) Narrative [employer] - 12/01/2021 1:39 PM CDT Dae [...] documented as of this encounter Care Teams Animal Stunner Relationship Specialty Start Date End Date Elsewhere, Pcp PCP - General Internal Medicine 10/22/19 documented as of this encounter
--- OUTSIDE RECORDS SUMMARY | 2022-03-15 11:19 | XMS_ITS | Encounter Summary ---
:1970 Author Organization [facility] Address [address] [place] [address] Care Team Providers Name Role Phone Elsewhere, Pcp Primary Care Provider Unavailable Reason for Referral Outpatient (Routine) - Authorized Specialty Diagnoses / Procedures Referred By Contact Refer red To Contact Diagnoses Gastro-Esophageal Reflux Disease With Esophagitis Without Bleeding Julián Edouard M.D. [facility] Procedures Esophageal pH Testing [address] [place] [address] Referral ID Status Reason Start Date Expiration Date Visits V isits Requested Authorized [id number] Authorized 11/17/2021 11/17/2022 3 3 Outpatient (Routine) - Authorized Specialty Diagnoses / Procedures Referred By Contact Refer red To Contact Diagnoses Gastro-Esophageal Reflux Disease With Esophagitis Without Bleeding Julián Edouard M.D. [facility] Procedures Esophageal Manometry [address] [place], [place] [address] Referral ID Status Reason Start Date Expiration Date Visits V isits Requested Authorized [id number] Authorized 11/17/2021 11/17/2022 3 3 Reason for Visit Outpatient (Routine) - Authorized Specialty Diagnoses / Procedures Referred By Contact Refer red To Contact Diagnoses Gastro-Esophageal Reflux Disease With Esophagitis Without Bleeding Julián Edouard M.D. [facility] Procedures Esophageal pH Testing [address] [place], [place] [phone] Referral ID Status Reason Start Date Expiration Date Visits V isits Requested Authorized [id number] Authorized 11/17/2021 11/17/2022 3 3 Encounter Details Date Type Department Care Team Description 11/30/2021 Hospital Encounter Division of [facility] Gastro-Es ophageal Gastroenterology in Julián Narayan M.D. Reflux Disease With [place], [place] [address] Esophagitis Without [address] [place] [address] [place] [phone] Social History Tobacco Use Types Packs/Day Years [...] Name Priority Date/Time Associated Diagnosis Comme nts [place] PH STUDY NASL Routine 12/01/2021 1:39 PM Gastro-Esophageal Results for this CATH CDT Reflux Disease With procedur e are in Esophagitis Without the resu lts Bleeding section. ESOPHAGEAL MANOMETRY Routine 11/30/2021 9:45 AM Gastro-Esophag eal Results for this CDT Reflux Disease With procedur e are in Esophagitis Without the resu lts Bleeding section. documented in this encounter Results [place] PH STUDY NASL CATH (12/01/2021 1:39 PM CDT) Narrative [employer] - 12/01/2021 1:39 PM CDT Dae Mcgee M.B., [place]. ? 12/01/2021 ??1:46 PM Esophageal pH Testing Date/Time: 12/01/2021 1:39 PM Performed by: Dae Mcgee M.B., [place] Authorized by: Julián Edouard M.D. Julián Edouard M.D. GI PROCEDURE ORDERABLES Performing Organization Address City/[facility] Phon e Number [employer] [...] M.D. GI PROCEDURE ORDERABLES Performing Organization Address [facility]/ZIP Code Phon e Number MMODAL MMODAL NA [...] documented as of this encounter Care Teams Cider Maker Relationship Specialty Start Date End Date Elsewhere, Pcp PCP - General Internal Medicine 10/22/19 documented as of this encounter
--- OUTSIDE RECORDS SUMMARY | 2022-03-15 11:19 | XMS_ITS | Encounter Summary ---
:1970 Author Organization [facility] Address [address] [place] [address] Care Team Providers Name Role Phone Elsewhere, Pcp Primary Care Provider Unavailable Reason for Visit Reason Comments Med Refill Encounter Details Date Type Department Care Team Description 11/13/2021 Refill Division of Gastroenterology in Julián Edouard Med Refill [place], [place] [address] [facility] [address] [place] [address] [place], [place] [phone] (Wo rk) Social History Tobacco Use Types [...] documented as of this encounter Care Teams Trust Clerk Relationship Specialty Start Date End Date Elsewhere, Pcp PCP - General Internal Medicine 10/22/19 documented as of this encounter
--- OUTSIDE RECORDS SUMMARY | 2022-03-15 11:19 | XMS_ITS | Clinical Summary ---
:1970 Author Organization [facility] Address [address] [place] [address] Care Team Providers Name Role Phone Elsewhere, Pcp Primary Care Provider Unavailable Source Comments Patient records contain information from all sites at [facility]. For routine questions regarding patient records, call [phone] during business hours, M-F 8:00 AM - 5:00 PM Central Time. Record requests for emergency care only can be directed to [phone] at any time.[facility] Allergies Active Allergy Reactions Severity Noted Date Comments Adhesive Rash 01/30/2015 Tape-Silicones Hydrocodone-Acetamino Other (see comments), 08/28/2014 Per [facility]ICS, reaction phen Itching, Nausea Only unknow n Iodine Other (see comments), 08/28/2014 fainti ng Shortness of breath Pecan Nut Swelling, Edema, Medium 01/30/2015 Angioedema Medications Medication Sig Dispensed Refills Start End Status Date Date SUMAtriptan (IMITREX Inject under the 0 03/19/20 Active STATDOSE) 6 mg/0.5 mL skin as needed. 15 injection pen Uses 2-4x/month for migraine. Uses once and then once again after 1h if no effect. dextroamphetamine-amph Take 45 mg by 0 Active etamine (ADDERALL) 30 mouth every mg tablet morning. hydrOXYzine (ATARAX) Take 25 mg by 0 Active 25 mg tablet mouth every 6 (six) hours as needed for itching. acetaminophen Take 500 mg by 0 A ctive (TYLENOL) 500 mg mouth as needed. tablet aspirin/acetaminophen/ Take 1 tablet by 0 Active caffeine (EXCEDRIN mouth as needed. MIGRAINE ORAL) ALPRAZOLAM ORAL Take 2 mg by 0 A ctive mouth at bedtime as needed for anxiety. modafiniL (PROVIGIL) Take 100 mg by 0 Active 100 mg tablet mouth daily. diphenhydramine-lidoca Take 5-10 mL by 480 mL 11 08/13/19 Active ine 2 %-antacid (mw) mouth 4 (four) 21 [...] Active (LYSTEDA) 650 mg mouth daily. tablet butalbital-acetaminoph Take 1 tablet by 0 Active en-caff (ESGIC) mouth every 4 50-325-40 mg per (four) hours as tablet needed. folic acid 1 mg Take 2 tablets 180 tablet 3 08/07/19 Active tabletIndications: (2,000 mcg 22 Arthritis Inflammatory total) by mouth (HCC) daily. pilocarpine (SALAGEN) Take 1 tablet (5 90 tablet 11 08/07/19 Active 5 mg mg total) by 22 tabletIndications: mouth 3 (three) Xerostomia times a day. famotidine (PEPCID) 40 Take 1 tablet 180 tablet 11 11/04/19 Active mg tablet (40 mg total) by 22 mouth 2 (two) times a day. RABEprazole (ACIPHEX) Take 1 tablet 180 tablet 11 11/04/19 Active 20 mg EC tablet (20 mg total) by 22 mouth 2 (two) times a day before breakfast and dinner. sucralfate (CARAFATE) TAKE 1 TABLET (1 360 tablet 3 11/17/19 Active 1 gram tablet G TOTAL) BY 22 MOUTH 4 (FOUR) TIMES A DAY. TAKE 1 HOUR BEFORE MEALS AND AT BEDTIME ketorolac (TORADOL) 10 Take 1 tablet 20 tablet 0 11/17/19 Active mg tablet (10 mg total) by 22 mouth every 6 (six) hours as needed for pain. hydrOXYchloroQUINE Take 1-2 tablets 135 tablet 0 01/29/20 Active (PLAQUENIL) 200 mg (200-400 mg 22 tabletIndications: total) by mouth Arthritis Inflammatory daily. Take 1 (HCC) tab on odd days and 2 tabs on even days methotrexate 25 mg/mL Inject 1 mL (25 12 mL 0 01/29/20 Active injectionIndications: mg total) under 22 Arthritis Inflammatory the skin once a (HCC) week. Labs needed for further refills. syringe with needle Inject 1 Syringe 12 each 1 01/29/20 Active (BD Tuberculin under the skin 22 Syringe) 1 mL 27 x once a week. For 1/2 syringe use with weekly Methotrexate injections pantoprazole TAKE 1 TABLET BY 180 tablet 2 03/04/20 Active (PROTONIX) 40 mg EC MOUTH TWICE 22 tablet DAILY pantoprazole Take 1 tablet 60 tablet 11 11/27/19 Dis continued (PROTONIX) 40 mg EC (40 mg total) by 21 022 tablet mouth 2 (two) times a day. 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 02/19/2022 Clinical Gastroenterology and Russ Edouard Hepatology Julián Narayan M.D. 01/28/2022 Clinical Rheumatology Russ Munson APRN, C.N.P. 01/08/2022 Comprehensive Visit Thoracic Surgery Solitario Raphael stro-Esophageal Gerardo Rendon M.D. Reflux Disease With Esophagiti s Without Bleedin g 01/08/2022 Hospital Encounter Radiology Silke Gastro-Es ophageal Julián Narayan M.D. Reflux Disease With Esophagiti s Without Bleedin g 01/06/2022 Nurse Triage [facility] Belen Connelly [facility] Susy Pearson.A.N., R.N., N.E.-B.C. from Last 3 Months Immunizations Name Administration Dates Next Due HepB Adult (HEPLISAV-B) 02/21/2019, 12/05/2018 Influenza (IM) Preservative Free 02/01/2018 Influenza, Unspecified 02/09/2016 MMR 09/05/2014, 07/25/2014 PPD Test 02/23/2021, 02/16/2021 SARS-COV-2 (COVID-19) - PFIZER (12 05/15/2020, 04/24/2020 years or older) SARS-COV-2 (COVID-19) - PFIZER TS(12 11/13/2021, 08/06/2021 years or older) Tdap 07/18/2021, 07/11/2014 influenza vaccine quad 03/25/2021, 01/28/2020, 01/23/2020, (FLUZONE/FLUARIX) (6 months and 12/21/2018, 02/16/2017, 05/2016, older)(PF) 02/09/2016, 02/05/2015 Family History Medical History Relation Name Comments Diabetes Father nichole velasquez Alcohol abuse Maternal Grandfather reagan bah Coronary artery disease Maternal Grandfather reagan bah Diabetes Maternal Grandfather reagan bah Hypertension Maternal Grandfather reagan bah Arthritis Maternal Grandmother jose e bah Hypertension Maternal Grandmother jose e bah Migraines Maternal Grandmother jose evlad bah Stroke Maternal Grandmother jose e bah [...] Paternal Grandmother hope zaragosa Asthma Sister madisyn tafoya Relation Name Status Comments Father nichole montelongoosa Maternal Grandfather reagan bah Maternal Grandmother jose e bah Mother apple jose Paternal Grandfather nichole zaragosa Paternal Grandmother hope zaragosa Sister madisyn tafoya Social History Tobacco Use Types Packs/Day Years [...] Pfizer series) 08/06/2021, Additiona l history exists Cervical Cancer Screening 08/15/2023 08/14/2020, 2014 (Performed elsewhere) Colonoscopy 11/19/2030 11/19/2020, 11/19/2020 Colorectal Cancer Screening 11/19/2030 DTaP,Tdap,and Td Vaccines 07/19/2031 07/18/2021, 07/11/2014 (3 - Td or Tdap) Hepatitis C Screening Completed 03/19/2015 Hepatitis B Vaccines Completed 02/21/2019, 02/21/2019, 12/05/2018, Additional history exists Influenza Vaccine Completed 01/31/2022, 03/25/2021, 01/28/2020, Additional history exists Pneumococcal vaccine (0-64 Aged Out No lo nger eligible years) based on patient 's age to complete this topic Medical Devices Implanted Type [employer] Device Shelf Model / Identifier Expiration Serial [...] Esophagitis the results outpatients) Without Bleeding section. from Last 3 Months Results ECG 12 Lead (01/08/2022 1:52 PM CDT) P athologist Signature Ventricular Rate 82 BPM MUSE ECG/Min [place] Interval 136 ms MUSE QRSD Interval 98 ms MUSE QT Interval 406 ms MUSE QTC Interval 474 ms MUSE P [place] 40 degrees MUSE R [place] -22 degrees MUSE T Wave [place] 39 degrees MUSE Specimen Anatomical Collection Method Collection Time Receive d Time (Source) Location / / Volume Laterality 01/08/2022 1:52 PM 1:56 CDT PM CDT Impressions MUSE - [...] laparoscopic gastric band. Cholecystecto my clips. Julián Edouadr M.D. IMG FLUOROSCOPY PROCEDURES from Last 3 Months Insurance Payer Benefit Plan / Subscriber ID Effective Dates Phone Addre ss Type Group [facility] [id number] 2014-Prese [phone] [address] [address] PPO [facility] [address] [place] [address] Care Teams Commissioner Of Officials Relationship Specialty Start Date End Date Elsewhere, Pcp PCP - General Internal Medicine 10/22/19
--- OUTSIDE RECORDS SUMMARY | 2022-03-15 11:19 | XMS_ITS | Encounter Summary ---
:1970 Author Organization [facility] Address [address] [place] [address] Care Team Providers Name Role Phone Elsewhere, Pcp Primary Care Provider Unavailable Reason for Referral Outpatient (Routine) - Authorized Specialty Diagnoses / Procedures Referred By Contact Refer red To Contact Diagnoses Gastro-Esophageal Reflux Disease With Esophagitis Without Bleeding Julián Edouard M.D. [facility] Procedures Esophageal pH Testing [address] [place] [address] Referral ID Status Reason Start Date Expiration Date Visits V isits Requested Authorized [id number] Authorized 11/17/2021 11/17/2022 3 3 Outpatient (Routine) - Authorized Specialty Diagnoses / Procedures Referred By Contact Refer red To Contact Diagnoses Gastro-Esophageal Reflux Disease With Esophagitis Without Bleeding Julián Edouard M.D. [facility] Procedures Esophageal Manometry [address] [place], [place] [address] Referral ID Status Reason Start Date Expiration Date Visits V isits Requested Authorized [id number] Authorized 11/17/2021 11/17/2022 3 3 Encounter Details Date Type Department Care Team Description 11/17/2021 Orders Only Division of Aquiles Edouard al Gastroenterology in Julián Narayan M.D. Reflux Disease With [place], [place] [address] [facility] Esophagitis Without [address] [place], [place] Bleeding (Primary Dx) [place] [phone] Social History Tobacco Use Types Packs/Day Years [...] on filedocumented as of this encounter Results [place] PH STUDY GREG CATH (12/01/2021 1:39 PM CDT) Narrative [employer] - 12/01/2021 1:39 PM CDT Dae Mcgee M.B., B.Chir. ? 12/01/2021 ??1:46 PM Esophageal pH Testing Date/Time: 12/01/2021 1:39 PM Performed by: Dae Mcgee M.B., uSnshine Long. Authorized by: Julián Edouard M.D. Julián Edouard M.D. GI PROCEDURE ORDERABLES Performing Organization Address [facility] Phon e Number [employer] [...] in th e secondary seated position. Julián Eduoard M.D. GI PROCEDURE ORDERABLES Performing Organization Address [facility] Phon e Number MMODAL MMODAL NA [...] documented as of this encounter Care Teams Vendor Representatives Relationship Specialty Start Date End Date Elsewhere, Pcp PCP - General Internal Medicine 10/22/19 documented as of this encounter
--- OUTSIDE RECORDS SUMMARY | 2022-03-15 11:19 | XMS_ITS | Encounter Summary ---
:1970 Author Organization [facility] Address [address] [place] [address] Care Team Providers Name Role Phone Elsewhere, Pcp Primary Care Provider Unavailable Encounter Details Date Type Department Care Team Description 12/01/2021 Orders Only Pharmacy Prior Auth Violetta Epperson [phone] Social History Tobacco Use Types Packs/Day Years [...] documented as of this encounter Care Teams Inspector Shells Relationship Specialty Start Date End Date Elsewhere, Pcp PCP - General Internal Medicine 10/22/19 documented as of this encounter
--- OUTSIDE RECORDS SUMMARY | 2022-03-15 11:19 | XMS_ITS | Encounter Summary ---
:[address] [facility] Address [address] [place] [address] Care Team Providers Name Role Phone Elsewhere, Pcp Primary Care Provider Unavailable Reason for Visit Outpatient (Routine) - Closed Specialty Diagnoses / Procedures Referred By Contact Refer red To Contact Thoracic Surgery Diagnoses Gastro-Esophageal Reflux Disease With Esophagitis Without Bleeding [facility] [address] [place] [address] Referral ID Status Reason Start Date Expiration Date Visits Requ ested Visits Authorized [id number] Closed 12/02/2021 12/02/2022 1 1 Encounter Details Date Type Department Care Team Description 01/08/2022 Comprehensive Visit Division of Rikki Duncan, Gastro -Esophageal Thoracic Surgery in Gerardo Rendon M.D. Reflux Disease With [address] Esophagitis Without [place], [place] Bleeding [address] [place] [phone] [place], [place] [phone] (Work) [phone] Social History Tobacco Use Types Packs/Day Years [...] MIGRAINE ORAL) 1 tablet, oral, As needed wzfauggxps-yphyefgegngtq-hsly (ESGIC) 50-325-40 mg per tablet 1 tablet, [...] documented as of this encounter Care Teams Dining Room Attendant Cafeteria Relationship Specialty Start Date End Date Elsewhere, Pcp PCP - General Internal Medicine 10/22/19 documented as of this encounter
--- OUTSIDE RECORDS SUMMARY | 2022-03-15 11:19 | XMS_ITS | Encounter Summary ---
:1970 Author Organization [facility] Address [address] [place] [address] Care Team Providers Name Role Phone Elsewhere, Pcp Primary Care Provider Unavailable Encounter Details Date Type Department Care Team Description 11/30/2021 Clinical Communication Division of [facility] Gastroenterology in Julián Narayan M.D. [place], [place] [address] [facility] [address] [place] [phone] Social History Tobacco Use Types Packs/Day Years [...] as of this encounter Care Teams Hand Cigar Making Supervisor Relationship Specialty Start Date End Date Elsewhere, Pcp PCP - General Internal Medicine 10/22/19 documented as of this encounter
--- OUTSIDE RECORDS SUMMARY | 2022-03-15 11:19 | XMS_ITS | Encounter Summary ---
:1970 Author Organization [facility] Address [address] [place] [address] Care Team Providers Name Role Phone Elsewhere, Pcp Primary Care Provider Unavailable Encounter Details Date Type Department Care Team Description 01/28/2022 Clinical Communication Division of Velma Munson Rheumatology in L, CONSULTING PROPERTY MANAGER, C.N.P. [place], [place] [address] [facility] [address] [place] [phone] Social History Tobacco Use Types Packs/Day Years [...] Rheum visit: 11/16/21 with Velma Munson APRN, [facility] Future office [...] documented as of this encounter Care Teams Early Childhood Coordinator Relationship Specialty Start Date End Date Elsewhere, Pcp PCP - General Internal Medicine 10/22/19 documented as of this encounter
--- OUTSIDE RECORDS SUMMARY | 2022-03-15 11:19 | XMS_ITS | Encounter Summary ---
:1970 Author Organization [facility] Address [address] [place] [address] Care Team Providers Name Role Phone Elsewhere, Pcp Primary Care Provider Unavailable Reason for Visit Reason Comments Med Refill Encounter Details Date Type Department Care Team Description 03/04/2022 Refill Division of Gastroenterology in Julián Edouard Med Refill [place], [place] Alex [address] [facility] [address] [place] [address] [place], [place] [phone] (Wo rk) Social History Tobacco Use Types [...] documented as of this encounter Care Teams Materials Supervisor Relationship Specialty Start Date End Date Elsewhere, Pcp PCP - General Internal Medicine 10/22/19 documented as of this encounter
--- OUTSIDE RECORDS SUMMARY | 2022-03-15 11:19 | XMS_ITS | Encounter Summary ---
:1970 Author Organization [facility] Address [address] [place] [address] Care Team Providers Name Role Phone Elsewhere, Pcp Primary Care Provider Unavailable Reason for Referral Outpatient (Routine) - Closed Specialty Diagnoses / Procedures Referred By Contact Refer red To Contact Diagnoses Gastro-Esophageal Reflux Disease With Esophagitis Without Bleeding Julián Edouard M.D. [facility] Procedures EGD (EsophagealGastroDuodenoscopy) [address] [place] [address] Referral ID Status Reason Start Date Expiration Date Visits Requ ested Visits Authorized [id number] Closed 11/03/2021 11/03/2022 1 1 Reason for Visit Outpatient (Routine) - Closed Specialty Diagnoses / Procedures Referred By Contact Refer red To Contact Diagnoses Gastro-Esophageal Reflux Disease With Esophagitis Without Bleeding Julián Edouard M.D. [facility] Procedures EGD (EsophagealGastroDuodenoscopy) [address] [place], [place] [address] Referral ID Status Reason Start Date Expiration Date Visits Requ ested Visits Authorized [id number] Closed 11/03/2021 11/03/2022 1 1 Encounter Details Date Type Department Care Team Description 11/13/2021 Hospital Encounter Division of Sikle, Gastro-Es ophageal Gastroenterology in Julián Narayan M.D. Reflux Disease With [place], [place] [address] Esophagitis Without [address] [facility] [place] [address] [facility] [place] [phone] [place] [address] Social History Tobacco Use Types Packs/Day Years [...] by 0 11/30/[address] capsule mouth. pantoprazole (PROTONIX) Take 1 tablet (40 60 tablet 11/2603/04/2022 40 mg EC tablet mg total) by mouth 2 (two) times a day. sucralfate (CARAFATE) 1 Take [...] Volume Laterality 11/13/2021 1:30 PM CDT Impressions [facility] - 11/13/2021 1:54 PM CDT Post-op Diagnoses: ? - Z-line irregular, 33 cm from th e incisors. Shortened esophagus. ? - LA Grade B reflux esophagitis w ith no bleeding. ? - Medium-sized hiatal hernia. ? - Normal stomach. ? - Normal examined duodenum. ? - No specimens collected. Narrative [facility] - 11/13/2021 1:54 PM CDT Gonda 9 [...] documented as of this encounter Care Teams Joy Operator Relationship Specialty Start Date End Date Elsewhere, Pcp PCP - General Internal Medicine 10/22/19 documented as of this encounter
--- OUTSIDE RECORDS SUMMARY | 2022-03-15 11:19 | XMS_ITS | Encounter Summary ---
:1970 Author Organization [facility] Address [address] [place] [address] Care Team Providers Name Role Phone Elsewhere, Pcp Primary Care Provider Unavailable Encounter Details Date Type Department Care Team Description 11/30/2021 Clinical Communication Division of [facility] in Julián Narayan M.D. [place], [place] [address] [facility] [address] [place] [phone] Social History Tobacco Use Types Packs/Day Years [...] of this encounter Care Teams Director Of Retail Operations Relationship Specialty Start Date End Date Elsewhere, Pcp PCP - General Internal Medicine 10/22/19 documented as of this encounter
--- OUTSIDE RECORDS SUMMARY | 2022-03-15 11:19 | XMS_ITS | Encounter Summary ---
:1970 Author Organization [facility] Address [address] [place] [address] Care Team Providers Name Role Phone Elsewhere, Pcp Primary Care Provider Unavailable Reason for Referral Outpatient (Routine) - Authorized Specialty Diagnoses / Procedures Referred By Contact Refer red To Contact Rheumatology Velma Munson APRN, [place] C.N.P. [address] [place] [address] Referral ID Status Reason Start Date Expiration Date Visits V isits Requested Authorized [id number] Authorized 11/17/2021 11/17/2022 1 1 Reason for Visit Outpatient (Routine) - Closed Specialty Diagnoses / Procedures Referred By Contact Refer red To Contact Rheumatology Velma Munson APRN, [place] C.N.P. [address] [place] [address] Referral ID Status Reason Start Date Expiration Date Visits Requ ested Visits Authorized [id number] Closed 08/06/2021 08/06/2022 1 1 Encounter Details Date Type Department Care Team Description 11/16/2021 Office Visit Division of Velma Munson Arthritis In [facility] ([facility]) (Primary Dx); Rheumatology in LONG Schwartz, C.N.P. High Risk Medication [place], [place] 200 [facility] [address] [place] [phone] Social History Tobacco Use Types Packs/Day Years [...] inflammatory arthritis. HISTORY OF PRESENT ILLNESS Ms. Zaragosa is a 50-year-old female inflammatory arthritis with [...] global assessment (0-100) 12 60 4 50 [employer] global assessment (0-100) 20 30 20 30 ESR (mm/h) 13 17 -- -- CRP (mg/L) 5 4.8 -- -- Disease Activity Score 28 using ESR ([id number]) 2.52 3.62 -- -- Disease Activity Score 28 using CRP ([id number]) 2.33 3.22 -- -- Clinical Disease Activity [...] Routine Arthritis Inflamma tory Expected: 02/17/2022 Blood ([facility]) (Approximate), Expires: 2022 Sedimentation Rate Lab Routine Arthritis Inflammatory Expected: 02/17/2022 (HCC) (Approximate), Expires: 2022 CRP (C-Reactive Protein) Lab Routine Arthritis Inflam matory Expected: 02/17/2022 ([facility]) (Approximate), Expires: 2022 Creatinine with Estimated Lab Routine Arthritis Infla mmatory Expected: 02/17/2022 GFR ([facility]) (Approximate), Expires: 2022 AST (Aspartate Lab Routine Arthritis Inflammatory Exp ected: 02/17/2022 Aminotransferase) ([facility]) (Approxima te), Expires: 2022 Scheduled Referrals Name [...] documented as of this encounter Care Teams Stripper Preliminary Relationship Specialty Start Date End Date Elsewhere, Pcp PCP - General Internal Medicine 10/22/19 documented as of this encounter
--- OUTSIDE RECORDS SUMMARY | 2022-03-15 11:19 | XMS_ITS | Encounter Summary ---
:1970 Author Organization [facility] Address [address] [place] [address] Care Team Providers Name Role Phone Elsewhere, [...] documented as of this encounter Care Teams Catalyst Operator Gasoline Relationship Specialty Start Date End Date Elsewhere, Pcp PCP - General Internal Medicine 10/22/19 documented as of this encounter
--- OUTSIDE RECORDS SUMMARY | 2022-03-15 11:19 | XMS_ITS | Encounter Summary ---
:1970 Author Organization [facility] Address [address] [place] [address] Care Team Providers Name Role Phone Elsewhere, Pcp Primary Care Provider Unavailable Reason for Visit Reason Comments COVID Nurse Line Encounter Details Date Type Department Care Team Description 01/06/2022 Nurse Triage Division of [facility] Belen Connelly C OVID Nurse Line Internal Medicine, Christoph, RYoselin, [facility], in [place], [place] [address] [facility] [address] [place] [phone] Social History Tobacco Use Types Packs/Day Years [...] a COVID booster. She was advised that [facility] has a temporary pause on scheduling of [...] documented as of this encounter Care Teams Foreign Student Adviser Relationship Specialty Start Date End Date Elsewhere, Pcp PCP - General Internal Medicine 10/22/19 documented as of this encounter
--- OUTSIDE RECORDS SUMMARY | 2022-03-15 11:19 | XMS_ITS | Encounter Summary ---
:1970 Author Organization [facility] Address [address] [place] [address] Care Team Providers Name Role Phone Elsewhere, Pcp Primary Care Provider Unavailable Encounter Details Date Type Department Care Team Description 11/13/2021 Anesthesia Event Division of Gastroenterology Janet Duran, in [facility] rotary driller FOREIGN EXCHANGE TRADER, GIS SCIENTIST [address] [facility] [address] [place] [address] [place], [place] [phone] Anesthesia Record Procedure Summary Procedure Name Responsible Anesthesia Start Anesthesia Stop Time Anesthesiologist Time EGD Donald Duran, FOREIGN EXCHANGE TRADER, 11/13/21 1332 11/13/21 1358 (ESOPHAGEALGASTRODU GIS SCIENTIST ODENOSCOPY) Events Date Time Event Comment 11/13/2021 [...] h andoff to the receiving staff during i ch we 1. Identified the patient 2. [...] Placement Date: 11/13/21; 11/13/21 1325 by Cortney y, 11/13/21 1443 by Placement Time: 1325; Ian Morin An gela C RYoselin Catheter Size: 20 G; Orientation: Right; Location: [...] Room / Location: Division of Gastroenterology in [place], [place] Anesthesia Start: 1331 Anesthesia Stop: 1358 [...] H&P Assessment Procedure Summary Anesthesia Start Date/Time: 11/13/21 1332 Scheduled providers: Bony Perez M.D. Procedure: EGD (ESOPHAGEALGASTRODUODENOSCOPY) Diagnosis: Gastro-Esophageal Reflux Disease With Esophagitis Without Bleeding [K21.00] Location: Division of Gastroenterology in [place], [place] Pertinent components of the patient's history [...] with patient /legal guardian or through an customs compliance specialist. Risks/Benefits/Alternatives of Blood transfusion discussed with patient [...] as of this encounter Care Teams Sewer System Supervisor Relationship Specialty Start Date End Date Elsewhere, Pcp PCP - General Internal Medicine 10/22/19 documented as of this encounter
--- OUTSIDE RECORDS SUMMARY | 2022-03-15 11:19 | XMS_ITS | Encounter Summary ---
:1970 Author Organization [facility] Address [address] [place] [address] Care Team Providers Name Role Phone Elsewhere, Pcp Primary Care Provider Unavailable Reason for Visit Reason Comments Immunizations Encounter Details Date Type Department Care Team Description 11/13/2021 Immunization Section of Preventive, Transportation and Occupational Medicine in [place], [place] [address] [place] [address] Social History Tobacco Use Types Packs/Day [...] documented as of this encounter Care Teams Encoding Machine Operator Relationship Specialty Start Date End Date Elsewhere, Pcp PCP - General Internal Medicine 10/22/19 documented as of this encounter
--- OUTSIDE RECORDS SUMMARY | 2022-03-15 11:20 | XMS_ITS | Encounter Summary ---
:1970 Author Organization [facility] Address [address] [place] [address] Care Team Providers Name Role Phone Elsewhere, Pcp Primary Care Provider Unavailable Reason for Referral Outpatient (Routine) - Closed Specialty Diagnoses / Procedures Referred By Contact Refer red To Contact Rheumatology Velma Munson APRN, [place] C.N.P. 200 [place] [address] Referral ID Status Reason Start Date Expiration Date Visits Requ ested Visits Authorized [id number] Closed 08/06/2021 08/06/2022 1 1 Reason for Visit Outpatient (Routine) - Closed Specialty Diagnoses / Procedures Referred By Contact Refer red To Contact Rheumatology Velma Munson APRN, [place] C.N.P. [address] [place] [phone] Referral ID Status Reason Start Date Expiration Date Visits Requ ested Visits Authorized [id number] Closed 03/04/2021 03/04/2022 1 1 Encounter Details Date Type Department Care Team Description 08/06/2021 Office Visit Division of Velma Munson Arthritis In flammatory (HCC) (Primary Dx); Rheumatology in [place] Schwartz, C.N.P. High Risk Medication; [place], [place] [address] [place] [address] [place] [phone] Social History Tobacco Use Types Packs/Day [...] this encounter Progress Notes Velma Munson APRN, CLennoxNLennoxP. - 08/06/2021 8:00 AM CDT Images [...] global assessment (0-100) 12 12 60 4 [employer] global assessment (0-100) 10 20 30 20 ESR (mm/h) 10 13 17 -- CRP (mg/L) 3.3 5 4.8 -- Disease Activity Score 28 using ESR ([id number]) 1.78 2.52 3.62 -- Disease Activity Score 28 using CRP (TIW13-MRO) 1.65 2.33 3.22 -- Clinical Disease Activity [...] AST (Aspartate Aminotransferase) (11/03/2021 12:18 PM CDT) [facility] gist Method Time Signature Aspartate 22 8 - 43 11/03/2021 DTL Aminotransferase U/L 1:11 PM CDT (AST), S Specimen Anatomical Collection Method Collection Time Receive d Time (Source) Location / / Volume Laterality Blood (Blood, 11/03/2021 12:18 11/03/2021 Venous) PM CDT 12:55 PM CDT Velma Munson APRN, C.N.P. LAB BLOOD ADD-ON Performing Organization Address City/State/ZIP Code Phon e Number [facility] - [address] [place], [place] [address] [facility] [place] [address] Laboratories-[facility] [address] Creatinine with Estimated GFR (11/03/2021 12:18 PM CDT) athologist Signature Creatinine 0.91 0.59 - 11/03/2021 DTL 1.04 mg/dL 1:11 PM CDT eGFR-Non 74 >=60 11/03/2021 DTL Black/ mL/min/BSA 1:11 PM CDT Ugandan Comment: ----ADDITIONAL INFORMATION---- Estimated GFR calculated using the 2009 CKD_EPI creatinine equation. eGFR-Black/ 86 >=60 mL/min/BSA 2021 1:11 PM CDT DTL Comment: ----ADDITIONAL INFORMATION---- Estimated GFR calculated using the 2009 CKD_EPI creatinine equation. Specimen Anatomical Collection Method Collection Time Receive d Time (Source) Location / / Volume Laterality Blood (Blood, 11/03/2021 12:18 11/03/2021 Venous) PM CDT 12:55 PM CDT Jorge Polo APRNNLennoxPLennox LAB BLOOD ADD-ON Performing Organization Address City/State/ZIP Code Phon e Number [facility] - [address] [place] [address] [facility] [place] [address] [facility] 200 [facility] (ABNORMAL) CBC with Differential, Blood (11/03/2021 12:18 PM CDT) [facility] Method Time Signature Hemoglobin 15.0 11.6 [...] City/State/ZIP Code Phon e Number [facility] - [address] [place], [place] [address] [facility] [place] [address] [facility] [address] documented in this encounter Visit Diagnoses Diagnosis Arthritis Inflammatory (HCC) - Primary High Risk Medication Xerostomia documented in this encounter Additional Health Concerns Assessment Noted Time PHQ-9 Depression Total Score: 15 04/21/2018 1:00 PM CS T documented as of this encounter Care Teams Aluminum Siding Installer Relationship Specialty Start Date End Date Elsewhere, Pcp PCP - General Internal Medicine 10/22/19 documented as of this encounter
--- OUTSIDE RECORDS SUMMARY | 2022-03-15 11:20 | XMS_ITS | Encounter Summary ---
:1970 Author Organization [facility] Address [address] [place] [address] Care Team Providers Name Role Phone Elsewhere, Pcp Primary Care Provider Unavailable Encounter Details Date Type Department Care Team Description 09/08/2021 Clinical Communication Division of [facility] Gastroenterology in Julián Narayan M.D. [place], [place] [address] [place] [address] [place] [phone] Social History Tobacco Use Types Packs/Day Years [...] as of this encounter Care Teams Inspector Mechanical Relationship Specialty Start Date End Date Elsewhere, Pcp PCP - General Internal Medicine 10/22/19 documented as of this encounter
--- OUTSIDE RECORDS SUMMARY | 2022-03-15 11:20 | XMS_ITS | Encounter Summary ---
:1970 Author Organization [facility] Address [address] [place] [address] Care Team Providers Name Role Phone Elsewhere, Pcp Primary Care Provider Unavailable Reason for Visit Reason Comments Med Refill Encounter Details Date Type Department Care Team Description 08/20/2021 Refill Division of Gastroenterology in Julián Edouard Med Refill [place], [place] Alex [address] [facility] [address] [place] [address] [place], [place] [phone] (Wo rk) Social History Tobacco Use Types [...] documented as of this encounter Care Teams Tunnel Elastic Operator Lockstitch Relationship Specialty Start Date End Date Elsewhere, Pcp PCP - General Internal Medicine 10/22/19 documented as of this encounter
--- OUTSIDE RECORDS SUMMARY | 2022-03-15 11:20 | XMS_ITS | Encounter Summary ---
:1970 Author Organization [facility] Address [address] [place] [address] Care Team Providers Name Role Phone Elsewhere, Pcp Primary Care Provider Unavailable Reason for Referral Medication Prior Authorization - Closed Specialty Diagnoses / Procedures Referred By Contact Refer red To Contact Julián Edouard M .D. 200 [place] [address] Referral ID Status Reason Start Date Expiration Date Visits Requ ested Visits Authorized [id number] Closed 1 1 Medication Prior Authorization - Closed Specialty Diagnoses / Procedures Referred By Contact Refer red To Contact Julián Edouard M .D. 200 [place] [address] Referral ID Status Reason Start Date Expiration Date Visits Requ ested Visits Authorized [id number] Closed 1 1 Outpatient (Routine) - Closed Specialty Diagnoses / Procedures Referred By Contact Refer red To Contact Diagnoses Gastro-Esophageal Reflux Disease With Esophagitis Without Bleeding Julián Edouard M.D. [facility] Procedures EGD (EsophagealGastroDuodenoscopy) [address] [place] [phone] Referral ID Status Reason Start Date Expiration Date Visits Requ ested Visits Authorized [id number] Closed 11/03/2021 11/03/2022 1 1 Reason for Visit Appointment Request (Routine) - Closed Specialty Diagnoses / Referred By Contact Referred To Procedures Contact Gastroenterology and Hepatology Referral ID Status Reason Start Date Expiration Date Visits Requ ested Visits Authorized [id number] Closed 09/08/2021 09/08/2022 1 1 Encounter Details Date Type Department Care Team Description 11/03/2021 Office Visit Division of [place], Gastro-Esophage al Reflux Disease With Esophagitis With Bleeding (Primary Dx); Gastroenterology in Julián Narayan M.D. Gastro-Esophageal Reflux Disease With Es ophagitis Without Bleeding [place], [place] [address] [facility] [address] [place] [phone] [phone] Social History Tobacco Use Types Packs/Day Years [...] Julián Edouard M.D. CT CT Job ID: [id number] documented in this encounter Plan of Treatment Not on filedocumented as of this encounter Visit Diagnoses Diagnosis Gastro-Esophageal Reflux Disease With Es ophagitis With Bleeding - Primary Gastro-Esophageal Reflux Disease With Es ophagitis Without Bleeding documented in this encounter Additional Health Concerns Assessment Noted Time PHQ-9 Depression Total Score: 15 04/21/2018 1:00 PM CS T documented as of this encounter Care Teams Box Packer Relationship Specialty Start Date End Date Elsewhere, Pcp PCP - General Internal Medicine 10/22/19 documented as of this encounter
--- OUTSIDE RECORDS SUMMARY | 2022-03-15 11:20 | XMS_ITS | Encounter Summary ---
:1970 Author Organization [facility] Address [address] [place] [address] Care Team Providers Name Role Phone Elsewhere, Pcp Primary Care Provider Unavailable Encounter Details Date Type Department Care Team Description 10/15/2021 Clinical Communication Division of Nano Gomes Rheumatology in , R.N. [place], [place] [address] [facility] [address] [place] [phone] [phone] Social History Tobacco Use Types Packs/Day Years [...] as of this encounter Care Teams Dispatcher Maintenance Relationship Specialty Start Date End Date Elsewhere, Pcp PCP - General Internal Medicine 10/22/19 documented as of this encounter
--- OUTSIDE RECORDS SUMMARY | 2022-03-15 11:20 | XMS_ITS | Encounter Summary ---
:1970 Author Organization [facility] Address [address] [place] [address] Care Team Providers Name Role Phone Elsewhere, Pcp Primary Care Provider Unavailable Reason for Visit Reason Comments Follow-up Injury Outpatient (Routine) - Closed Specialty Diagnoses / Procedures Referred By Contact Refer red To Contact Orthopedic Surgery Joseline Millan, [facility], [facility] C.N.P., D.N.P. [address] [place] [phone] Referral ID Status Reason Start Date Expiration Date Visits Requ ested Visits Authorized [id number] Closed 07/21/2021 07/21/2022 1 1 Encounter Details Date Type Department Care Team Description 08/18/2021 Office Visit Department of Joseline Millan, Fracture Index Finger Orthopedic Surgery in [facility], C.N.P., Dista l Phalanx Katherine PendletonNLennoxP. Nondisplaced Closed [address] Initial Left (Primary [address] [place] [address] Dx) [place] [address] [phone] Social History Tobacco Use Types Packs/Day Years [...] documented as of this encounter Care Teams Hi Ranger Operator Relationship Specialty Start Date End Date Elsewhere, Pcp PCP - General Internal Medicine 10/22/19 documented as of this encounter
--- OUTSIDE RECORDS SUMMARY | 2022-03-15 11:20 | XMS_ITS | Encounter Summary ---
:1970 Author Organization [facility] Address [address] [place] [address] Care Team Providers Name Role Phone Elsewhere, Pcp Primary Care Provider Unavailable Reason for Visit Reason Onset Date Comments Outpatient COVID-19 Testing 11/10/2021 Encounter Details Date Type Department Care Team Description 11/10/2021 External Outreach Department of [facility] Higinio Chapa Contact With And Medicine in Jakub Narayan M.D., (Suspected) Exposure [place], [place] Pharm.D. To COVID-19 (Primary [address] Dx) [place] [phone] Social History Tobacco Use Types Packs/Day Years [...] to pay for the very basics like Hively[employer] hat hard 11/16/2021 food, housing, medical care, [...] RNA, V Asymptomatic (11/10/2021 10:51 AM CDT) [facility] gist Method Time Signature SARS-CoV-2 Swab, 11/11/2021 MKTO [...] pe rformed using the Aptima SARS-CoV-2 assay ([employer] on the [place] Sys tem under emergency use authorization (EUA) by the U.S. Food and Drug Administ ration. Fact sheets for this EUA assay can be fo und at the following links: For Healthcare Providers: https://www.fd a.gov/media/939042/download For Patients: https://www.fda.gov/media/ 705424/download Specimen Anatomical Collection Method Collection Time Receive d Time (Source) Location / / Volume Laterality Varies 11/10/2021 10:51 11/10/2021 5:02 (Nasopharynx) AM CDT PM CDT Bret Chapa M.D., Pharm.D. LAB MICROBIOLOGY - [facility] ORDERABLES Performing Organization Address City/State/[facility] Phon e Number [facility]- [address] [place] [address] [place] [address] [address] documented in this encounter Visit Diagnoses [...] as of this encounter Care Teams Head Screen Worker Relationship Specialty Start Date End Date Elsewhere, Pcp PCP - General Internal Medicine 10/22/19 documented as of this encounter
--- OUTSIDE RECORDS SUMMARY | 2022-03-15 11:20 | XMS_ITS | Encounter Summary ---
:1970 Author Organization [facility] Address [address] [place] [address] Care Team Providers Name Role Phone Elsewhere, Pcp Primary Care Provider Unavailable Encounter Details Date Type Department Care Team Description 11/03/2021 Hospital Encounter Department of Velma Munson Laboratory Medicine L, GRANT MANAGER, C.N .P. Inflammatory (HCC) and Pathology, [address] [place] [address] in [place] [phone] [place] [phone] [place] [address] (Work) [place], [place] [phone] (Fax) [phone] Social History Tobacco Use Types Packs/Day Years [...] AST (Aspartate Aminotransferase) (11/03/2021 12:18 PM CDT) [facility] gist Method Time Signature Aspartate 22 8 - 43 11/03/2021 DTL Aminotransferase U/L 1:11 PM CDT (AST), S Specimen Anatomical Collection Method Collection Time Receive d Time (Source) Location / / Volume Laterality Blood (Blood, 11/03/2021 12:18 11/03/2021 Venous) PM CDT 12:55 PM CDT Jorge Polo APRNNLennoxPLennox LAB BLOOD ADD-ON Performing Organization Address City/State/ZIP Code Phon e Number [facility] - [address] [place], [place] [address] [facility] [place] [address] Laboratories-[facility] [address] Creatinine with Estimated GFR (11/03/2021 12:18 PM CDT) P athologist Signature Creatinine 0.91 0.59 - 11/03/2021 DTL 1.04 mg/dL 1:11 PM CDT eGFR-Non 74 >=60 11/03/2021 DTL Black/ mL/min/BSA 1:11 PM CDT Fijian Comment: ----ADDITIONAL INFORMATION---- Estimated GFR calculated using the 2009 CKD_EPI creatinine equation. eGFR-Black/ 86 >=60 mL/min/BSA 2021 1:11 PM CDT DTL Comment: ----ADDITIONAL INFORMATION---- Estimated GFR calculated using the 2009 CKD_EPI creatinine equation. Specimen Anatomical Collection Method Collection Time Receive d Time (Source) Location / / Volume Laterality Blood (Blood, 11/03/2021 12:18 11/03/2021 Venous) PM CDT 12:55 PM CDT Velma Lana Munson APRN, C.N.P. LAB BLOOD ADD-ON Performing Organization Address City/State/ZIP Code Phon e Number [facility] - 200 [place], [place] [address] [facility] [place] [address] [facility] [address] [facility] (ABNORMAL) CBC with Differential, Blood (11/03/2021 12:18 PM CDT) [facility] Method Time Signature Hemoglobin 15.0 11.6 [...] CDT 12:43 PM CDT Velma Munson APRN C.N.PLennox LAB BLOOD ADD-ON Performing Organization Address City/State/[facility] Code Phon e Number [facility] - [address] [place], [place] [address] [facility] [place] [address] [facility] [address] documented in this encounter Visit Diagnoses Diagnosis Arthritis Inflammatory (HCC) documented in this encounter Additional Health Concerns Assessment Noted Time PHQ-9 Depression Total Score: 15 04/21/2018 1:00 PM CS T documented as of this encounter Care Teams Quality Improvement Specialist Relationship Specialty Start Date End Date Elsewhere, Pcp PCP - General Internal Medicine 10/22/19 documented as of this encounter
--- OUTSIDE RECORDS SUMMARY | 2022-03-15 11:20 | XMS_ITS | Encounter Summary ---
:1970 Author Organization [facility] Address [address] [place] [address] Care Team Providers Name Role Phone Elsewhere, Pcp Primary Care Provider Unavailable Reason for Visit Reason Comments Immunizations Appointment Request (Routine) - Closed Specialty Diagnoses / Procedures Referred By Contact Refer red To Contact Family Medicine Referral ID Status Reason Start Date Expiration Date Visits Requ ested Visits Authorized [id number] Closed 07/28/2021 07/28/2022 1 1 Encounter Details Date Type Department Care Team Description 08/06/2021 Immunization Section of Infectious Need V accine Immunization Diseases in [place], (Prim deandre Dx) [place] [address] [place] [address] Social History Tobacco Use Types Packs/Day [...] documented as of this encounter Care Teams Sterile Processing Technologist Relationship Specialty Start Date End Date Elsewhere, Pcp PCP - General Internal Medicine 10/22/19 documented as of this encounter
--- OUTSIDE RECORDS SUMMARY | 2022-03-15 11:21 | XMS_ITS | Encounter Summary ---
:1970 Author Organization [facility] Address [address] [place] [address] Care Team Providers Name Role Phone Elsewhere, Pcp Primary Care Provider Unavailable Reason for Visit Reason Comments Lab Monitoring Delay Encounter Details Date Type Department Care Team Description 06/17/2021 Clinical Communication Division of Saeed Page onitoring Rheumatology in Marlyn Schwartz RYoselin (Delay) [place], [place] [address] [facility] [address] [place] [phone] [place] [address] Social History Tobacco Use Types Packs/Day Years [...] 3:51 PM CST Letter mailed to patient. TER TENDER Telephone Encounter - Marlyn Page R.N. - 06/17/2021 8:28 AM CST Pt has not read her 3 portal messages from 06/03/21. So has not complete labs. Will ask [facility] to mail ptthe 3 unread portals. TER TENDER documented in this encounter Plan of Treatment Not on filedocumented as of this encounter Visit Diagnoses Not on filedocumented in this encounter Additional Health Concerns Assessment Noted Time PHQ-9 Depression Total Score: 15 04/21/2018 1:00 PM CS T documented as of this encounter Care Teams Molder Operator Relationship Specialty Start Date End Date Elsewhere, Pcp PCP - General Internal Medicine 10/22/19 documented as of this encounter
--- OUTSIDE RECORDS SUMMARY | 2022-03-15 11:21 | XMS_ITS | Encounter Summary ---
:[address] [facility] Address [address] [place] [address] Care Team Providers Name Role Phone Elsewhere, Pcp Primary Care Provider Unavailable Encounter Details Date Type Department Care Team Description 07/13/2021 Hospital Encounter Department of Velma Munson Medic ation Therapy [facility] Not Anticoagulant; Laboratory Medicine L, RESOURCE ECONOMIST, C.N .P. Arthritis Inflammatory (HCC) in [place] [phone] [facility] [phone] [place], [place] (Work) [address] Social History Tobacco Use [...] by mouth 2 (two) times a day. [id number] Drink 1st portion 1 box(es) 0 10/07/20202021 [id number] of prep at 6 PM the (MOVIPREP) [...] Th erapy Results for this PM CDT Forensic Psychologist Not procedure are in Anticoagulant the results section. C-REACTIVE PROTEIN Routine 07/13/2021 1:39 Arthritis Result s for this (CRP), S/P PM CDT Inflammatory (HCC) procedure are in the results section. ASPARTATE Routine 07/13/2021 1:39 Medication Therapy Result s for this AMINOTRANSFERASE (AST), PM CDT Forensic Psychologist Not pro cedure are in S/P Anticoagulant the results section. CREATININE WITH EGFR, Routine 07/13/2021 1:39 Medication Thera py Results for this S/P PM CDT [facility] Not procedure are in Anticoagulant the results section. documented in this encounter Results CRP (C-Reactive Protein) (07/13/2021 1:39 PM CDT) P athologist Signature C-Reactive <3.0 <=8.0 mg/L 07/13/2021 CNFL Protein (CRP), 2:10 PM CDT P Specimen Anatomical Collection Method Collection Time Receive d Time (Source) Location / / Volume Laterality Blood (Blood, 07/13/2021 1:39 PM 07/14/19 1:40 Venous) CDT PM CDT Jorge Polo APRNNLennoxP. LAB BLOOD ADD-ON Performing Organization Address City/State/ZIP Code Phon e Number [facility]- [address] [place] [address] [place] [address] Sedimentation Rate (07/13/2021 1:39 PM CDT) Analysis Performed At Patho logist Time Signature Sedimentation 11 0 - 29 07/13/2021 RDWG Rate, B mm/1 h 8:38 PM CDT Specimen Anatomical Collection Method Collection Time Receive d Time (Source) Location / / Volume Laterality Blood (Blood, 07/13/2021 1:39 PM 07/14/19 8:04 Venous) CDT PM CDT Jorge Polo APRNN.P. LAB BLOOD ADD-ON Performing Organization Address City/State/[facility] Code Phon e Number [facility]- [address] [place], [place] [address] [facility] [place] [address] System [address] Creatinine with Estimated GFR (07/13/2021 1:39 PM CDT) P athologist Signature Creatinine 0.80 0.59 - 07/13/2021 CNFL 1.04 mg/dL 2:10 PM CDT eGFR-Black/Afric >90 >=60 07/13/2021 CNFL an Syrian mL/min/BSA 2:10 PM CDT Comment: ----ADDITIONAL INFORMATION---- [...] Karlene.N.P. LAB BLOOD ADD-ON Performing Organization Address City/[facility] Code Phon e Number [facility]- [address] [place] [address] [place] [address] [place] [address] System [address] AST (Aspartate Aminotransferase) (07/13/2021 1:39 PM CDT) NONO Method Time Signature Aspartate 22 8 - 43 07/13/2021 CNFL Aminotransferase U/L 2:10 PM CDT (AST), P Specimen Anatomical Collection Method Collection Time Receive d Time (Source) Location / / Volume Laterality Blood (Blood, 07/13/2021 1:39 PM 07/14/19 1:40 Venous) CDT PM CDT Velma Munson APRN, C.N.P. LAB BLOOD ADD-ON Performing Organization Address City/State/[facility] Code Phon e Number [facility]- [address] [place] [address] [place] [address] (ABNORMAL) CBC with Differential, Blood (07/13/2021 1:39 PM CDT) NONO Method Time Signature Hemoglobin 14.1 11.6 - [...] Venous) CDT PM CDT Velma Munson APRN C.N.PLennox LAB BLOOD ADD-ON Performing Organization Address City/State/ZIP Code Phon e Number [facility]- [address] [place] [phone] [place] [address] [place] [address] [address] documented in this encounter Visit Diagnoses Diagnosis Medication Therapy Forensic Psychologist Not Anticoa gulant Arthritis Inflammatory (HCC) documented in this encounter Additional Health Concerns Assessment Noted Time PHQ-9 Depression Total Score: 15 04/21/2018 1:00 PM CS T documented as of this encounter Care Teams Mincing Machine Operator Relationship Specialty Start Date End Date Elsewhere, Pcp PCP - General Internal Medicine 10/22/19 documented as of this encounter
--- OUTSIDE RECORDS SUMMARY | 2022-03-15 11:21 | XMS_ITS | Encounter Summary ---
:1970 Author Organization [facility] Address [address] [place] [address] Care Team Providers Name Role Phone Elsewhere, Pcp Primary Care Provider Unavailable Reason for Visit Reason Comments Med Refill Encounter Details Date Type Department Care Team Description 05/27/2021 Refill Division of Rheumatology in Smita Munson sa, APRN, Med Refill [place], [place] C.N.P. [address] [facility] [address] [place] [address] [place] [address] [phone] (Wo rk) Social History Tobacco Use Types [...] to pharmacy that patient will need labs. UNTS PAYABLE TECHNICIAN Telephone Encounter - Magnolia Morgan R.N. - 06/02/2021 11:03 AM CST Called patient to so see how she is feeling after COVID infection. Also, to discuss about getting her labs rescheduled for her Mtx refills and how much Mtx she has left. Unable to reach patient . Left a message. Will postpone to tomorrow 06-03-21. UNTS PAYABLE TECHNICIAN documented in this encounter Plan of Treatment Not on filedocumented as of this encounter Visit Diagnoses Diagnosis Arthritis Inflammatory (HCC) documented in this encounter Additional Health Concerns Assessment Noted Time PHQ-9 Depression Total Score: 15 04/21/2018 1:00 PM CS T documented as of this encounter Care Teams Supervisor Inventory Merchandising Relationship Specialty Start Date End Date Elsewhere, Pcp PCP - General Internal Medicine 10/22/19 documented as of this encounter
--- OUTSIDE RECORDS SUMMARY | 2022-03-15 11:21 | XMS_ITS | Encounter Summary ---
:1970 Author Organization [facility] Address [address] [place] [address] Care Team Providers Name Role Phone Elsewhere, Pcp Primary Care Provider Unavailable Reason for Visit Reason Comments question regarding methotrexate and influenza A p1 Encounter Details Date Type Department Care Team Description 04/28/2021 Clinical Division of Jeimy, question regard ing Communication Rheumatology in Velma L, methotrexat e and [place], [place] BOX BLANK MACHINE FEEDER, C.N.P. influenza A; p1 [address] [facility] [address] [place] [address] [phone] Social History Tobacco Use Types Packs/Day Years [...] to pay for the very basics like [employer] hat hard 11/16/2021 food, housing, medical care, [...] Munson APRN, C.N.P. - 05/03/2021 12:04 PM TELEPHONE ORDER CLERK I recommend holding the methotrexate until she recovers from her current symptoms. PHONE ORDER CLERK Telephone Encounter - Justine Weeks M.S.N., R.N. - 04/29/2021 10:08 AM TELEPHONE ORDER CLERK SUBJECTIVE CHIEF COMPLAINT / REASON FOR CALL [...] CNP as well for when she returns. PHONE ORDER CLERK Telephone Encounter - Violetta Mendieta - 04/28/2021 [...] Follow-up requested: Yes Preferred response (portal/phone): Phone PHONE ORDER CLERK documented in this encounter Plan of Treatment Not on filedocumented as of this encounter Visit Diagnoses Not on filedocumented in this encounter Additional Health Concerns Assessment Noted Time PHQ-9 Depression Total Score: 15 04/21/2018 1:00 PM CS T documented as of this encounter Care Teams Flowers Salesperson Relationship Specialty Start Date End Date Elsewhere, Pcp PCP - General Internal Medicine 10/22/19 documented as of this encounter
--- OUTSIDE RECORDS SUMMARY | 2022-03-15 11:21 | XMS_ITS | Encounter Summary ---
:1970 Author Organization [facility] Address [address] [place] [address] Care Team Providers Name Role Phone Elsewhere, Pcp Primary Care Provider Unavailable Reason for Visit Reason Comments Lab Monitoring Encounter Details Date Type Department Care Team Description 02/27/2021 Clinical Communication Division of Kaylie Vu Monitoring Rheumatology in L, M.A.N., R.N. [place], [place] [address] [facility] [address] [place] [phone] Social History Tobacco Use Types Packs/Day Years [...] CDT eGFR-Black/Afric >90 >=60 07/13/2021 CNFL an Somali mL/min/BSA 2:10 PM CDT Comment: ----ADDITIONAL INFORMATION---- [...] APRNN.P. LAB BLOOD ADD-ON Performing Organization Address [facility] Phon e Number [address] [address] [place] [address] [address] AST (Aspartate Aminotransferase) (07/13/2021 1:39 PM CDT) [facility] Method Time Signature Aspartate 22 8 - 43 07/13/2021 CNAR Aminotransferase U/L 2:10 PM CDT (AST), P Specimen Anatomical Collection Method Collection Time Receive d Time (Source) Location / / Volume Laterality Blood (Blood, 07/13/2021 1:39 PM 07/14/19 1:40 Venous) CDT PM CDT Jorge Polo APRNN.P. LAB BLOOD ADD-ON Performing Organization Address [facility] Phon e Number [address] [address] [place] [address] System [address] (ABNORMAL) CBC with Differential, Blood (07/13/2021 1:39 PM CDT) [facility] Method Time Signature Hemoglobin 14.1 11.6 - [...] C.N.PLennox LAB BLOOD ADD-ON Performing Organization Address City/State/[facility] Code Phon e Number [facility]- [address] [place] [address] [place] [address] System [address] documented in this encounter Visit Diagnoses Diagnosis Medication Therapy Jail Not Anticoa gulant - Primary documented in this encounter Additional Health Concerns Assessment Noted Time PHQ-9 Depression Total Score: 15 04/21/2018 1:00 PM CS T documented as of this encounter Care Teams Local Bulk Driver Relationship Specialty Start Date End Date Elsewhere, Pcp PCP - General Internal Medicine 10/22/19 documented as of this encounter
--- OUTSIDE RECORDS SUMMARY | 2022-03-15 11:21 | XMS_ITS | Encounter Summary ---
:1970 Author Organization [facility] Address [address] [place] [address] Care Team Providers Name Role Phone Elsewhere, Pcp Primary Care Provider Unavailable Reason for Referral Outpatient (Routine) - Closed Specialty Diagnoses / Procedures Referred By Contact Refer red To Contact Rheumatology Velma Munson APRN, [facility] C.N.P. [address] [place] [phone] Referral ID Status Reason Start Date Expiration Date Visits Requ ested Visits Authorized [id number] Closed 03/04/2021 03/04/2022 1 1 Physical Therapy (Routine) - Closed Specialty Diagnoses / Procedures Referred By Contact Refer red To Contact Diagnoses Arthritis Inflammatory (HCC) Pain Low Back Chronic Velma Munson APRN, C.N.P. [address] [place] [phone] Referral ID Status Reason Start Date Expiration Visits Visits Date Requested Authorized [id number] Closed Patient 03/04/2021 03/04/2022 1 1 Preference Reason for Visit Appointment Request (Routine) - Closed Specialty Diagnoses / Procedures Referred By Contact Refer red To Contact Rheumatology Diagnoses Arthritis Inflammatory (HCC) Velma Munson APRN, C.N.P. [address] [place] [phone] Referral ID Status Reason Start Date Expiration Date Visits Requ ested Visits Authorized [id number] Closed 12/01/2020 12/01/2021 1 1 Encounter Details Date Type Department Care Team Description 03/04/2021 Office Visit Division of Velma Munson Arthritis In flammatory (HCC) (Primary Dx); Rheumatology in L, MANAGING BROKER, C.N.P. Pain Low Back Chronic; [place], [place] 200 [facility] High Risk Medication 200 [place] [phone] Social History Tobacco Use Types Packs/Day Years [...] Patient global assessment (0-100) 12 12 60 Engine Generator Assembler global assessment (0-100) 10 20 30 ESR (mm/h) 10 13 17 CRP (mg/L) 3.3 5 4.8 Disease Activity Score 28 using ESR ([id number]) 1.78 2.52 3.62 Disease Activity Score 28 using CRP ([id number]) 1.65 2.33 3.22 Clinical Disease Activity Index [...] xray and PT to be done in [place]. If she does not respond to the [...] C.N.P. LAB BLOOD ADD-ON Performing Organization Address City/[facility]/ZIP [facility] Phon e Number [facility]- [address] [place] [address] [place] [address] [place] [address] System in [place] [address] Bl Sedimentation Rate (07/13/2021 1:39 PM CDT) [...] C.N.P. LAB BLOOD ADD-ON Performing Organization Address City/[facility] Code Phon e Number [facility]- 701 [place], [place] [address] [place] [address] System in [place] [address] [place] [address] DX Lumbar Spine 2-3 Views (03/04/2021 12:32 [...] documented as of this encounter Care Teams Rehabilitation Medicine Physician Relationship Specialty Start Date End Date Elsewhere, Pcp PCP - General Internal Medicine 10/22/19 documented as of this encounter
--- OUTSIDE RECORDS SUMMARY | 2022-03-15 11:21 | XMS_ITS | Encounter Summary ---
:1970 Author Organization [facility] Address [address] [place] [address] Care Team Providers Name Role Phone Elsewhere, Pcp Primary Care Provider Unavailable Reason for Visit Reason Comments Lab Monitoring Encounter Details Date Type Department Care Team Description 07/15/2021 Clinical Communication Division [facility] in [facility] RYoselin [place], [place] [address] [facility] [address] [place] [phone] [phone] Social History Tobacco Use Types Packs/Day Years [...] this encounter Visit Diagnoses Diagnosis Medication Therapy Automotive Exhaust Emissions Technician Not Anticoa gulant - Primary documented in this encounter Additional Health Concerns Assessment Noted Time PHQ-9 Depression Total Score: 15 04/21/2018 1:00 PM CS T documented as of this encounter Care Teams Library Clerk Relationship Specialty Start Date End Date Elsewhere, Pcp PCP - General Internal Medicine 10/22/19 documented as of this encounter
--- OUTSIDE RECORDS SUMMARY | 2022-03-15 11:21 | XMS_ITS | Encounter Summary ---
:1970 Author Organization [facility] Address [address] [place] [address] Care Team Providers Name Role Phone Elsewhere, Pcp Primary Care Provider Unavailable Reason for Visit Reason Comments Medication Question Encounter Details Date Type Department Care Team Description 05/08/2021 Clinical Division of Velma Munson Medication Communication Rheumatology in L, [place], C.N.P. Question [place], [place] [address] [facility] [address] [place] [phone] Social History Tobacco Use Types Packs/Day Years [...] Munson APRN, C.N.P. - 05/08/2021 4:07 PM CHIEF ULTRASOUND TECHNOLOGIST I would recommend holding the methotrexate until 5 days after his 10 days quarantine. F ULTRASOUND TECHNOLOGIST Telephone Encounter - Justine Weeks M.S.N., R.N. - 05/08/2021 11:21 AM CHIEF ULTRASOUND TECHNOLOGIST SUBJECTIVE CHIEF COMPLAINT / REASON FOR CALL Medication Question Information Discussed Spoke with patient. She is COVID negative but her spouse has COVID and they are going to be driving in a car to see his mom in [place] who is dying of COVID pneumonia, she [...] at this time. Expressed sympathy that her tqlvst-pi-koe is in end of life care, however, to prevent the spread of COVID they should quarantine. PLAN Disposition/Recommendation: notified provider and awaiting recommendations Information/Education: patient/caller able to teach back Caller agreeable to plan of care: yes The following references were used: nursing clinical judgement F ULTRASOUND TECHNOLOGIST Telephone Encounter - Ana Maria Bowen - [...] requested: Yes Preferred response (portal/phone): phone - [phone] Appointment office - patient requested to cancel her appointment for today. Thanks! F ULTRASOUND TECHNOLOGIST documented in this encounter Plan of Treatment Not on filedocumented as of this encounter Visit Diagnoses Not on filedocumented in this encounter Additional Health Concerns Assessment Noted Time PHQ-9 Depression Total Score: 15 04/21/2018 1:00 PM CS T documented as of this encounter Care Teams Felt Finisher Relationship Specialty Start Date End Date Elsewhere, Pcp PCP - General Internal Medicine 10/22/19 documented as of this encounter
--- OUTSIDE RECORDS SUMMARY | 2022-03-15 11:21 | XMS_ITS | Encounter Summary ---
:1970 Author Organization [facility] Address [address] [place] [address] Care Team Providers Name Role Phone Elsewhere, Pcp Primary Care Provider Unavailable Reason for Visit Reason Comments Med Refill Encounter Details Date Type Department Care Team Description 05/11/2021 Refill Division of Rheumatology in Smita Munson sa, APRN, Med Refill [place], [place] C.N.P. [address] [facility] [address] [place] [address] [place] [address] [phone] (Wo rk) Social History Tobacco Use Types [...] provider review due to missing monitoring labs. NT ASSOCIATE documented in this encounter Plan of Treatment Not on filedocumented as of this encounter Visit Diagnoses Diagnosis Arthritis Inflammatory (HCC) documented in this encounter Additional Health Concerns Assessment Noted Time PHQ-9 Depression Total Score: 15 04/21/2018 1:00 PM CS T documented as of this encounter Care Teams Reimbursement Counselor Relationship Specialty Start Date End Date Elsewhere, Pcp PCP - General Internal Medicine 10/22/19 documented as of this encounter
--- OUTSIDE RECORDS SUMMARY | 2022-03-15 11:21 | XMS_ITS | Encounter Summary ---
:1970 Author Organization [facility] Address [address] [place] [address] Care Team Providers Name Role Phone Elsewhere, Pcp Primary Care Provider Unavailable Reason for Referral Outpatient (Routine) - Closed Specialty Diagnoses / Procedures Referred By Contact Refer red To Contact Emergency Medicine Diagnoses Fracture Index Finger Distal Phalanx Nondisplaced Closed Initial Left Haritha Guillory, [facility] LONG, C.N.P., D.N.P. [address] [place] [phone] Referral ID Status Reason Start Date Expiration Date Visits Requ ested Visits Authorized [id number] Closed 07/18/2021 07/18/2022 1 1 Reason for Visit Reason Comments Hand Injury Encounter Details Date Type Department Care Team Description 07/18/2021 Emergency [place] [facility] Haritha Guillory acture Index Finger Department LONG Narayan, C.N.P., Distal Phalanx [address] [place] [address] D.N.P. Nondisplaced Closed [address] Initial Left (Primary [phone] Luz Marina [place] Dx) [phone] Social History Tobacco Use Types Packs/Day [...] sent through Care Everywhere. Finger Fracture Adult Vjnj-yt-Glfw (Yakut)Oxycodone tablets or capsules (Yakut)documented in this encounter Medications at Time of [...] by mouth 2 (two) times a day. [id number] Drink 1st portion 1 box(es) 0 10/07/20202 [id number]-YePj-SUm-asb-C of prep at 6 PM the (MOVIPREP) [...] PROCEDURE DETAILS Procedure type: application Performed by: POWER PRESS OPERATOR Indication: fracture, pain and joint immobilization Location: [...] DETAILS Procedure type: application ?? Performed by: ??POWER PRESS OPERATOR Indication: fracture, pain and joint imm obilization [...] documented as of this encounter Care Teams Linux Consultant Relationship Specialty Start Date End Date Elsewhere, Pcp PCP - General Internal Medicine 10/22/19 documented as of this encounter
--- OUTSIDE RECORDS SUMMARY | 2022-03-15 11:21 | XMS_ITS | Encounter Summary ---
:1970 Author Organization [facility] Address [address] [place] [address] Care Team Providers Name Role Phone Elsewhere, Pcp Primary Care Provider Unavailable Reason for Visit Reason Comments Med Refill Encounter Details Date Type Department Care Team Description 05/31/2021 Refill Division of Rheumatology in Smita Munson sa, APRN, Med Refill [place], [place] C.N.P. [address] [facility] [address] [place] [address] [place] [address] [phone] (Wo rk) Social History Tobacco Use Types [...] missing eye exam. 90 day supply pended. R MAKER DYER documented in this encounter Plan of Treatment Not on filedocumented as of this encounter Visit Diagnoses Diagnosis Arthritis Inflammatory (HCC) documented in this encounter Additional Health Concerns Assessment Noted Time PHQ-9 Depression Total Score: 15 04/21/2018 1:00 PM CS T documented as of this encounter Care Teams Manual Training Teacher Relationship Specialty Start Date End Date Elsewhere, Pcp PCP - General Internal Medicine 10/22/19 documented as of this encounter
--- OUTSIDE RECORDS SUMMARY | 2022-03-15 11:21 | XMS_ITS | Encounter Summary ---
:1970 Author Organization [facility] Address [address] [place] [address] Care Team Providers Name Role Phone Elsewhere, Pcp Primary Care Provider Unavailable Reason for Visit Reason Comments Pre-visit Intake Encounter Details Date Type Department Care Team Description 07/15/2021 Clinical Communication Division of Velma Munson e-visit Intake Rheumatology in L, FEDERAL AID COORDINATOR, C.N.P. [place], [place] [address] [facility] 200 [place] [address] [phone] Social History Tobacco Use Types Packs/Day Years [...] documented as of this encounter Care Teams Intranet Developer Relationship Specialty Start Date End Date Elsewhere, Pcp PCP - General Internal Medicine 10/22/19 documented as of this encounter
--- OUTSIDE RECORDS SUMMARY | 2022-03-15 11:21 | XMS_ITS | Encounter Summary ---
:1970 Author Organization [facility] Address [address] [place] [address] Care Team Providers Name Role Phone Elsewhere, Pcp Primary Care Provider Unavailable Encounter Details Date Type Department Care Team Description 03/04/2021 Hospital Encounter Department of Velma Munson Pain Low Back Radiology, Luzamria Schwartz APRN, C.NSandra [facility], in [address] [place] [phone] [place] [address] [place], [place] (Work) [phone] Social History Tobacco Use Types Packs/Day Years [...] mcg total) Arthritis Inflammatory by mouth daily. (FORMERLY [facility]) hydrOXYchloroQUINE Take 1-2 tablets 135 tablet 3 05/27/2020 06/01/2021 (PLAQUENIL) 200 mg (200-400 mg total) tabletIndications: by mouth daily. Arthritis Inflammatory Take 2 tab on even (HCC) days, 1 on . ketorolac (TORADOL) 10 mg Take 1 tablet (10 10 tablet 0 06/202007/21/2021 tablet mg total) by mouth every 6 (six) hours as needed for pain. Max 40 mg/day. Max duration is 5 days. methotrexate 25 mg/mL Inject 1 mL (25 mg 12 mL 1 202005/13/2021 injectionIndications: total) under the Arthritis Inflammatory skin once a week. ([facility]) omeprazole (PriLOSEC) 20 Take 20 mg by 0 11/30/[address] capsule mouth. pantoprazole (PROTONIX) Take 1 tablet (40 60 tablet 11 11/2603/04/2022 40 mg EC tablet mg total) by mouth 2 (two) times a day. [id number] Drink 1st portion 1 box(es) 0 10/07/20202021 [id number] of prep at 6 PM the (MOVIPREP) [...] documented as of this encounter Care Teams Video Operator Relationship Specialty Start Date End Date Elsewhere, Pcp PCP - General Internal Medicine 10/22/19 documented as of this encounter
--- OUTSIDE RECORDS SUMMARY | 2022-03-15 11:21 | XMS_ITS | Encounter Summary ---
:1970 Author Organization [facility] Address [address] [place] [address] Care Team Providers Name Role Phone Elsewhere, Pcp Primary Care Provider Unavailable Reason for Visit Reason Comments Lab Monitoring Delay Encounter Details Date Type Department Care Team Description 06/03/2021 Clinical Communication Division [facility] Rhe[facility]ology in L, M.S.N., (Delay) [place], [place] R.N. 200 [facility] 200 [facility] [phone] [facility] [phone] [place] [phone] Social History Tobacco Use Types Packs/Day Years [...] Her grandmother , and she is in [place]. I have sent her a POM with our phone number to call and reschedule. ING COORDINATOR Telephone Encounter - Justine Weeks M.S.N., R.N. - 06/03/2021 1:11 PM WEDDING COORDINATOR Patient missed scheduled lab appointment for medication monitoring. Nursing contacted patient via POM and provided laboratory medication monitoring patient education. If needed a lab letter instructing patient of need to complete medication monitoring labs will be sent. Patient will be contacted to reschedule lab appointment. ING COORDINATOR documented in this encounter Plan of Treatment Not on filedocumented as of this encounter Visit Diagnoses Not on filedocumented in this encounter Additional Health Concerns Assessment Noted Time PHQ-9 Depression Total Score: 15 04/21/2018 1:00 PM CS T documented as of this encounter Care Teams Human Resources Associate Relationship Specialty Start Date End Date Elsewhere, Pcp PCP - General Internal Medicine 10/22/19 documented as of this encounter
--- OUTSIDE RECORDS SUMMARY | 2022-03-15 11:21 | XMS_ITS | Encounter Summary ---
:1970 Author Organization [facility] Address [address] [place] [address] Care Team Providers Name Role Phone Elsewhere, Pcp Primary Care Provider Unavailable Reason for Referral Outpatient (Routine) - Closed Specialty Diagnoses / Procedures Referred By Contact Refer red To Contact Orthopedic Surgery Joseline Millan APRN, [facility] C.N.P., D.N.P. [address] [place] [address] Referral ID Status Reason Start Date Expiration Date Visits Requ ested Visits Authorized [id number] Closed 07/21/2021 07/21/2022 1 1 Reason for Visit Reason Comments Fracture 2nd digit, injured closing g arage door on tuesday Outpatient (Routine) - Closed Specialty Diagnoses / Procedures Referred By Contact Refer red To Contact Emergency Medicine Diagnoses Fracture Index Finger Distal Phalanx Nondisplaced Closed Initial Left Haritha Guillory [facility], C.N.P., D.N.P. [address] [place] [phone] Referral ID Status Reason Start Date Expiration Date Visits Requ ested Visits Authorized [id number] Closed 07/18/2021 07/18/2022 1 1 Encounter Details Date Type Department Care Team Description 07/21/2021 Office Visit Department of Joselien Millan, Fracture Index Finger Orthopedic Surgery in RETAIL STORE CLERK, CLennoxNLennoxP., Dannielle l Phalanx [place] Nondisplaced Closed [place] [address] [place] [address] [address] [place] [address] SUGAR ZAMARRIPA [phone] Social History Tobacco Use Types Packs/Day Years [...] of this encounter Progress Notes Joseline Millan, RETAIL STORE CLERK, C.N.P., D.N.P. - 07/21/2021 10:30 AM CDT [...] time, her pain has been tolerable with [id number]-[id number]-[id number] remedies and occasional oxycodone. She was placed [...] heal on its own. Manage pain with [id number] analgesics, elevation, and activity modification. We will [...] documented as of this encounter Care Teams Teacher Private Relationship Specialty Start Date End Date Elsewhere, Pcp PCP - General Internal Medicine 10/22/19 documented as of this encounter
--- OUTSIDE RECORDS SUMMARY | 2022-03-15 11:21 | XMS_ITS | Encounter Summary ---
:1970 Author Organization [facility] Address [address] [place] [address] Care Team Providers Name Role Phone Elsewhere, Pcp Primary Care Provider Unavailable Encounter Details Date Type Department Care Team Description 02/05/2021 Hospital Encounter Department of Velma Munson Laboratory Medicine L, BULL FIDDLE PLAYER, C.N .P. Inflammatory (HCC) in [place] [phone] [facility] [phone] [place], [place] (Work) [phone] Social History Tobacco Use [...] mcg total) Arthritis Inflammatory by mouth daily. ([facility]) hydrOXYchloroQUINE Take 1-2 tablets 135 tablet 3 05/27/2020 06/01/2021 (PLAQUENIL) 200 mg (200-400 mg total) tabletIndications: by mouth daily. Arthritis Inflammatory Take 2 tab on even (HCC) days, 1 on odd. methotrexate 25 mg/mL Inject 1 mL (25 mg 12 mL 1 202005/13/2021 injectionIndications: total) under the Arthritis Inflammatory skin once a week. ([facility]) pantoprazole (PROTONIX) Take 1 tablet (40 60 tablet 11 11/2603/04/2022 40 mg EC tablet mg total) by mouth 2 (two) times a day. [id number] Drink 1st portion 1 box(es) 0 10/07/20202021 [id number] of prep at 6 PM the (MOVIPREP) [...] by IFA, S (02/05/2021 2:08 PM CDT) [facility] Method Time Signature Antinuclear Ab Positive [...] PM 9:38 CDT PM CDT Jorge Polo APRNN.P. LAB BLOOD NON ADD-ON Performing Organization Address City/[facility] Phon e Number [facility]- [address] [place] [address] [phone] [facility] [place] [address] System in [address] Creatinine with Estimated GFR (02/05/2021 2:08 PM CDT) athologist Signature Creatinine 0.71 0.59 - 02/05/2021 CNFL 1.04 mg/dL 2:55 PM CDT eGFR-Black/Afric >90 >=60 02/05/2021 CNFL an Thai mL/min/BSA 2:55 PM CDT Comment: ----ADDITIONAL INFORMATION---- [...] APRN.N.P. LAB BLOOD ADD-ON Performing Organization Address City/[facility] Code Phon e Number [facility]- [address] [place] [address] [place] [address] [employer] [place] [address] System in [place] [address] [address] AST (Aspartate Aminotransferase) (02/05/2021 2:08 PM CDT) Patholo gist Method Time Signature Aspartate 19 8 - 43 02/05/2021 CNFL Aminotransferase U/L 2:55 PM CDT (AST), P Specimen Anatomical Collection Method Collection Time Receive d Time (Source) Location / / Volume Laterality Blood (Blood, 02/05/2021 2:08 PM 02/06/20 2:10 Venous) CDT PM CDT Karlene Polo APRN.N.P. LAB BLOOD ADD-ON Performing Organization Address [facility] Phon e Number [address] [address] [place] [address] System in [place] [address] Bl CRP (C-Reactive Protein) (02/05/2021 2:08 PM CDT) P athologist Signature C-Reactive 4.8 <=8.0 mg/L 02/05/2021 CNFL Protein (CRP), 2:55 PM CDT P Specimen Anatomical Collection Method Collection Time Receive d Time (Source) Location / / Volume Laterality Blood (Blood, 02/05/2021 2:08 PM 02/06/20 2:10 Venous) CDT PM CDT Velma Munson APRN, C.N.P. LAB BLOOD ADD-ON Performing Organization Address [facility] Phon e Number [address] [address] [place] [address] System in [place] [address] [address] Sedimentation Rate (02/05/2021 2:08 PM CDT) Analysis [...] Organization Address City/State/ZIP Code Phon e Number [facility]- [address] [facility] [place] [address] [address] [place] [facility] [place] [address] System in [place] [address] CBC with Differential, Blood (02/05/2021 2:08 PM [...] Organization Address City/State/ZIP Code Phon e Number [facility]- [address] [place] [address] [employer] [place] [address] System in [address] Cyclic Citrullinated Peptide Antibodies, IgG (02/05/2021 2:08 PM CDT) Analysis Performed At Patho logist Time Signature Cyclic <15.6 <20.0 02/06/2021 [facility] Citrullinated (Negative) 12:19 PM CDT Peptide Ab, S U Specimen Anatomical Collection Method Collection Time Receive d Time (Source) Location / / Volume Laterality Blood (Blood, 02/05/2021 2:08 PM 02/07/20 21 7:11 Venous) CDT AM CDT Jorge Polo APRNN.P. LAB BLOOD ADD-ON Performing Organization Address City/[facility]/ZIP Code Phon e Number [facility] [address] [place] [address] [facility] [place] [address] Laboratory Medicine and Pathology [address] [place] [address] Dr. LOPEZ (ABNORMAL) Rheumatoid Factor (02/05/2021 2:08 PM CDT) athologist [facility] Rheumatoid 18 (H) <15 IU/mL 02/06/2021 [facility] Factor, S 9:11 AM CDT Specimen Anatomical Collection Method Collection Time Receive d Time (Source) Location / / Volume Laterality Blood (Blood, 02/05/2021 2:08 PM 02/07/20 21 8:39 Venous) CDT AM CDT Karlene Polo APRN.N.P. LAB BLOOD ADD-ON Performing Organization Address City/State/ZIP Code Phon e Number [facility] [address] JESSICA [place]oney [place] [address] [facility] [address] Laboratory Medicine and Pathology [address] [place] [address] Dr. LOPEZ DNA Double-Stranded (dsDNA) Antibodies, IgG [...] C.N.P. LAB BLOOD ADD-ON Performing Organization Address [facility] Phon e Number [phone] [facility] [place] [address] System [address] Antibody to Extractable Nuclear Antigen Evaluation (02/05/2021 2:08 PM CDT) P athologist Signature SS-A/Ro Ab, <0.2 <1.0 02/06/2021 ECLR IgG, S (Negative) 3:07 PM CDT U SS-B/La Ab, <0.2 <1.0 02/06/2021 ECLR IgG, S (Negative) 3:07 PM CDT U Sm Ab, IgG, S <0.2 <1.0 02/06/2021 ECLR (Negative) 3:07 PM CDT U SALES INCENTIVE ANALYST Ab, IgG, S <0.2 <1.0 02/06/2021 ECLR [...] C.N.P. LAB BLOOD ADD-ON Performing Organization Address [facility] Phon e Number [address] [phone] [facility] [place] [address] System in [address] (ABNORMAL) Antinuclear Antibodies, HEp-2 Substrate, IgG, Serum (02/05/2021 2:08 PM CDT) [facility] Method Time Signature Antinuclear Ab Positive (A) Negative 02/09/2021 ECLR Screen by IFA, 8:06 AM CDT S Comment: MADELEINE screen positive, titer and pattern r esults to follow on next scheduled testing date. Specimen Anatomical Collection Method Collection Time Receive d Time (Source) Location / / Volume Laterality Blood (Blood, 02/05/2021 2:08 PM 02/06/20 9:38 Venous) CDT PM CDT Vemla Munson APRN C.N.P. LAB BLOOD ADD-ON Performing Organization Address City/State/ZIP Code Phon e Number [facility]- [address] [place] [phone] [facility] [place] [address] System in [address] documented in this encounter Visit Diagnoses Diagnosis Arthritis Inflammatory (HCC) documented in this encounter Additional Health Concerns Assessment Noted Time PHQ-9 Depression Total Score: 15 04/21/2018 1:00 PM CS T documented as of this encounter Care Teams Head Of Sales Relationship Specialty Start Date End Date Elsewhere, Pcp PCP - General Internal Medicine 10/22/19 documented as of this encounter
--- OUTSIDE RECORDS SUMMARY | 2022-03-15 11:21 | XMS_ITS | Encounter Summary ---
:1970 Author Organization [facility] Address [address] [place] [address] Care Team Providers Name Role Phone Elsewhere, Pcp Primary Care Provider Unavailable Encounter Details Date Type Department Care Team Description 07/15/2021 Clinical Communication Division of Velma Munson Rheumatology in L, INSOLE DOUBLER, C.N.P. [place], [place] [address] [facility] [address] [place] [phone] Social History Tobacco Use Types Packs/Day Years [...] documented as of this encounter Care Teams Wash Crew Person Relationship Specialty Start Date End Date Elsewhere, Pcp PCP - General Internal Medicine 10/22/19 documented as of this encounter
--- OUTSIDE RECORDS SUMMARY | 2022-03-15 11:21 | XMS_ITS | Encounter Summary ---
:1970 Author Organization [facility] Address [address] [place] [address] Care Team Providers Name Role Phone Elsewhere, Pcp Primary Care Provider Unavailable Reason for Visit Reason Comments Med Refill Encounter Details Date Type Department Care Team Description 06/26/2021 Refill Division of Rheumatology in Smita Munson sa, APRN, Med Refill [place], [place] C.N.P. [address] [facility] [address] [place] [phone] [place] [address] [phone] (Wo rk) Social History Tobacco Use Types [...] sent letting patient know she needs labs. N WASHER Telephone Encounter - Humera Beckham R.N. - [...] inform them of reasoning for Rx denial. N WASHER documented in this encounter Plan of Treatment Not on filedocumented as of this encounter Visit Diagnoses Diagnosis Arthritis Inflammatory (HCC) documented in this encounter Additional Health Concerns Assessment Noted Time PHQ-9 Depression Total Score: 15 04/21/2018 1:00 PM CS T documented as of this encounter Care Teams Heating Equipment Repairer Relationship Specialty Start Date End Date Elsewhere, Pcp PCP - General Internal Medicine 10/22/19 documented as of this encounter
--- OUTSIDE RECORDS SUMMARY | 2022-03-15 11:22 | XMS_ITS | Encounter Summary ---
:1970 Author Organization [facility] Address [address] [place] [address] Care Team Providers Name Role Phone Elsewhere, Pcp Primary Care Provider Unavailable Reason for Visit Reason Comments Patient Education Methotrexate 8 Week Outpatient (Routine) - Canceled Specialty Diagnoses / Procedures Referred By Contact Refer red To Contact Rheumatology Velma Munson APRN, [facility] C.[facility] [address] [place] [phone] Referral ID Status Reason Start Date Expiration Date Visits V isits Requested Authorized [id number] Canceled 10/31/2020 10/31/2021 1 1 Encounter Details Date Type Department Care Team Description 11/27/2020 Nurse Only Division of Velma Munson APRN, C.N.P. [address] [place] [phone] Patient Education Rheumatology in Irene Andujar R.N. [address] [place] [phone] (Methotrexate 8 Week) [place], [place] [address] [place] [phone] Social History Tobacco Use Types Packs/Day Years [...] 11/16/2021 organizations such as sikh groups, unions, fraBeyond Games or athletic groups, or school groups? How [...] of this encounter Progress Notes Irene Andujar RLennoxN. - 11/27/2020 1:00 PM CDT SUBJECTIVE [...] as of this encounter Care Teams Manager Of International Relationship Specialty Start Date End Date Elsewhere, Pcp PCP - General Internal Medicine 10/22/19 documented as of this encounter
--- OUTSIDE RECORDS SUMMARY | 2022-03-15 11:22 | XMS_ITS | Encounter Summary ---
:1970 Author Organization [facility] Address [address] [place] [address] Care Team Providers Name Role Phone Elsewhere, Pcp Primary Care Provider Unavailable Reason for Referral Outpatient (Routine) - Closed Specialty Diagnoses / Procedures Referred By Contact Refer red To Contact Diagnoses Diarrhea Persistent Unexplained Julián Edouard M.D. [facility] Procedures Anorectal Manometry [address] [place], [place] [phone] Referral ID Status Reason Start Date Expiration Date Visits Requ ested Visits Authorized [id number] Closed 11/26/2020 11/26/2021 1 1 Reason for Visit Outpatient (Routine) - Closed Specialty Diagnoses / Procedures Referred By Contact Refer red To Contact Diagnoses Diarrhea Persistent Unexplained Julián Edouard M.D. [facility] Procedures Anorectal Manometry [address] [place], [place] [phone] Referral ID Status Reason Start Date Expiration Date Visits Requ ested Visits Authorized [id number] Closed 11/26/2020 11/26/2021 1 1 Encounter Details Date Type Department Care Team Description 12/11/2020 Hospital Encounter Division of Sb Edouard Persistent Gastroenterology in Julián Narayan M.D. [place], [place] [address] [place] [address] [facility] [phone] [place] [phone] Social History Tobacco Use Types Packs/Day Years [...] mg total) by mouth Arthritis Inflammatory daily. ([facility]) hydrOXYchloroQUINE Take 1-2 tablets 135 tablet 3 05/27/2020 06/01/2021 (PLAQUENIL) 200 mg (200-400 mg total) tabletIndications: by mouth daily. Arthritis Inflammatory Take 2 tab on even (HCC) days, 1 on odd. methotrexate 25 mg/mL Inject 1 mL (25 mg 12 mL 1 202005/13/2021 injectionIndications: total) under the Arthritis Inflammatory skin once a week. ([facility]) pantoprazole (PROTONIX) Take 1 tablet (40 60 tablet 11 11/2603/04/2022 40 mg EC tablet mg total) by mouth 2 (two) times a day. [id number] Drink 1st portion 1 box(es) 0 10/07/20202021 [id number] of prep at 6 PM the (MOVIPREP) [...] documented as of this encounter Care Teams Sustainability Coordinator Relationship Specialty Start Date End Date Elsewhere, Pcp PCP - General Internal Medicine 10/22/19 documented as of this encounter
--- OUTSIDE RECORDS SUMMARY | 2022-03-15 11:22 | XMS_ITS | Encounter Summary ---
:1970 Author Organization [facility] Address [address] [place] [address] Care Team Providers Name Role Phone Elsewhere, Pcp Primary Care Provider Unavailable Encounter Details Date Type Department Care Team Description 11/11/2020 Orders Only Urgent Care in [place], [place] Janelle Locke [address] [place] [phone] Social History Tobacco Use Types Packs/Day [...] documented as of this encounter Care Teams Cooperative Education Director Relationship Specialty Start Date End Date Elsewhere, Pcp PCP - General Internal Medicine 10/22/19 documented as of this encounter
--- OUTSIDE RECORDS SUMMARY | 2022-03-15 11:22 | XMS_ITS | Encounter Summary ---
:1970 Author Organization [facility] Address [address] [place] [address] Care Team Providers Name Role Phone Elsewhere, Pcp Primary Care Provider Unavailable Reason for Referral Outpatient (Routine) - Closed Specialty Diagnoses / Procedures Referred By Contact Refer red To Contact Diagnoses Diarrhea Persistent Unexplained Julián Edouard M.D. [facility] Procedures Colonoscopy 200 [place] [address] Referral ID Status Reason Start Date Expiration Date Visits Requ ested Visits Authorized [id number] Closed 10/07/2020 10/07/2021 1 1 Outpatient (Routine) - Closed Specialty Diagnoses / Procedures Referred By Contact Refer red To Contact Diagnoses Gastroesophageal Reflux Disease Julián Edouard M.D. [facility] Procedures EGD (EsophagoGastroDuodenoscopy) Restricted 200 [place], [place] [address] Referral ID Status Reason Start Date Expiration Date Visits Requ ested Visits Authorized [id number] Closed 08/19/2020 08/19/2021 1 1 Reason for Visit Outpatient (Routine) - Closed Specialty Diagnoses / Procedures Referred By Contact Refer red To Contact Diagnoses Gastroesophageal Reflux Disease Julián Edouard M.D. [facility] Procedures EGD (EsophagoGastroDuodenoscopy) Restricted 200 [place] [address] Referral ID Status Reason Start Date Expiration Date Visits Requ ested Visits Authorized [id number] Closed 08/19/2020 08/19/2021 1 1 Encounter Details Date Type Department Care Team Description 11/19/2020 Hospital Division of Julián Edouard M.D. [address] [place] [phone] Gastroesophageal Reflux Disease; Encounter Gastroenterology in [place], FILLER SPREADER, ZONING ASSISTANT, DNAP [address] [place] [phone] Diarrhea Persistent Unexplained [place], [place] [address] [place] [phone] Social History Tobacco Use Types Packs/Day Years [...] tabletIndications: total) by mouth Arthritis Inflammatory daily. ([place] [...] skin once a week. ([facility]) [id number] Drink 1st portion 1 box(es) 0 10/07/20202021 [id number] of prep at 6 PM the (MOVIPREP) [...] Component Value Ref Test Analysis Performed At [facility] gist Range Method Time Signature 11/20/2020 DTL 6:02 PM CDT Participated in Shantell John, 11/20/2020 DTL the M.D. 6:02 PM CDT Interpretation -Pathology Fellow Report Mo Dong M.D., Ph.D.[id number] DTL electronically 6:02 PM CDT signed by [...] Organization Address City/State/ZIP Code Phon e Number [facility] - [address] [place], [place] [address] [facility] [place] [address] Laboratories-[facility] [address] Colonoscopy (11/19/2020 9:15 AM CDT) Specimen (Source) Anatomical Collection Method Collection Time Re ceived Time Location / / Volume Laterality 11/19/2020 9:15 AM CDT Impressions [facility] - 11/19/2020 10:19 AM CDT Post-op Diagnoses: ? - The entire examined colon is no rmal. Biopsied. ? - The examined portion of the ile um was normal. Narrative [facility] - 11/19/2020 10:19 AM CDT Gonda [...] the bowel ? preparation was evaluated using luis a granger BBPS ([place] Bowel Preparation ? Scale) [Segment Scores]. The [...] Organization Address City/State/ZIP Code Phon e Number [facility] NA Upper GI Endoscopy (11/19/2020 9:15 AM CDT) Specimen (Source) Anatomical Collection Method Collection Time Re ceived Time Location / / Volume Laterality 11/19/2020 9:15 AM CDT Impressions [facility] - 11/19/2020 10:16 AM CDT Post-op Diagnoses: ? - LA Grade C ulcerative esophagit is. Lynn not placed. ? - 2 cm hiatal hernia. ? - Normal examined duodenum. ? - No specimens collected. Narrative [facility] - 11/19/2020 10:16 AM CDT Gonda [...] documented as of this encounter Care Teams Groover And Turner Relationship Specialty Start Date End Date Elsewhere, Pcp PCP - General Internal Medicine 10/22/19 documented as of this encounter
--- OUTSIDE RECORDS SUMMARY | 2022-03-15 11:22 | XMS_ITS | Encounter Summary ---
:1970 Author Organization [facility] Address [address] [place] [address] Care Team Providers Name Role Phone Elsewhere, Pcp Primary Care Provider Unavailable Reason for Visit Reason Comments Rx Prior Authorization CRISTINA DENIED DICLOFENAC SOD GEL Pre-visit Testing Orders Encounter Details Date Type Department Care Team Description 11/10/2020 Clinical Division of Jeimy, Maya Prior Communication Rheumatology in Velma Schwartz Authorizati on (CRISTINA Rooney APRN, C.N.P. DENIED DICLOFENAC [place] [address] [facility] SOD GEL); Pre-visit [address] [place], [place] [phone] Social History Tobacco Use Types Packs/Day Years [...] CDT eGFR-Black/Afric >90 >=60 02/05/2021 CNFL an Colombian mL/min/BSA 2:55 PM CDT Comment: ----ADDITIONAL INFORMATION---- [...] Address City/State/ZIP Code Phon e Number [facility]- [address] [place] [address] [place] [address] [facility] [place] [address] System in [place] [address] AST (Aspartate Aminotransferase) (02/05/2021 2:08 PM [...] Address City/State/ZIP Code Phon e Number [facility]- [address] [place] [address] [place] [address] System in [place] [address] CRP (C-Reactive Protein) (02/05/2021 2:08 PM CDT) P athologist Signature C-Reactive 4.8 <=8.0 mg/L 02/05/2021 CNIN Protein (CRP), 2:55 PM CDT P Specimen Anatomical Collection Method Collection Time Receive d Time (Source) Location / / Volume Laterality Blood (Blood, 02/05/2021 2:08 PM 02/06/20 2:10 Venous) CDT PM CDT Velma Munson APRN, Karlene.N.P. LAB BLOOD ADD-ON Performing Organization Address City/[facility]/ZIP Code Phon e Number [facility]- [address] [place] [address] [place] [address] [address] Sedimentation Rate (02/05/2021 2:08 PM CDT) [...] Address City/State/ZIP Code Phon e Number [facility]- [address] [place] [address] [facility] [place] [address] System in [place] [facility] CBC with Differential, Blood (02/05/2021 2:08 PM [...] Address City/State/ZIP Code Phon e Number [facility]- [address] [place] [address] [facility] [place] [address] System [address] documented in this encounter Visit Diagnoses Diagnosis Arthritis Inflammatory (HCC) - Primary documented in this encounter Additional Health Concerns Infection Onset Date Last Indicated Resolved Time COVID19 Pending 11/15/2020 11/15/2020 11/15/2020 10:25 PM CDT Assessment Noted Time PHQ-9 Depression Total Score: 15 04/21/2018 1:00 PM CS T documented as of this encounter Care Teams Coordinator Of Library Services Relationship Specialty Start Date End Date Elsewhere, Pcp PCP - General Internal Medicine 10/22/19 documented as of this encounter
--- OUTSIDE RECORDS SUMMARY | 2022-03-15 11:22 | XMS_ITS | Encounter Summary ---
:1970 Author Organization [facility] Address [address] [place] [address] Care Team Providers Name Role Phone Elsewhere, Pcp Primary Care Provider Unavailable Reason for Referral Outpatient (Routine) - Closed Specialty Diagnoses / Procedures Referred By Contact Refer red To Contact Diagnoses Diarrhea Persistent Unexplained Julián Edouard M.D. [facility] Procedures Enema Prep 200 [place] [address] Referral ID Status Reason Start Date Expiration Date Visits Requ ested Visits Authorized [id number] Closed 11/26/2020 11/26/2021 1 1 Outpatient (Routine) - Closed Specialty Diagnoses / Procedures Referred By Contact Refer red To Contact Diagnoses Diarrhea Persistent Unexplained Julián Edouard M.D. [facility] Procedures Anorectal Manometry [address] [place], [place] [address] Referral ID Status Reason Start Date Expiration Date Visits Requ ested Visits Authorized [id number] Closed 11/26/2020 11/26/2021 1 1 Reason for Visit Outpatient (Routine) - Closed Specialty Diagnoses / Referred By Referred To Cont act Procedures Contact Gastroenterology and Julián Edouard [facility] Hepatology Alex [address] [place] [address] Referral ID Status Reason Start Date Expiration Date Visits Requ ested Visits Authorized [id number] Closed 08/19/2020 08/19/2021 1 1 Encounter Details Date Type Department Care Team Description 11/26/2020 Office Visit Division of Sb Edouard Gastroenterology in Julián Narayan M.D. Unexplained (Primary [place], [place] [address] [facility]) [address] [place] [phone] Social History Tobacco Use Types Packs/Day Years [...] Julián Edouard M.D. CT CT Job ID: [id number]/[facility] documented in this encounter Plan of [...] documented as of this encounter Care Teams Farm Contractor Relationship Specialty Start Date End Date Elsewhere, Pcp PCP - General Internal Medicine 10/22/19 documented as of this encounter
--- OUTSIDE RECORDS SUMMARY | 2022-03-15 11:22 | XMS_ITS | Encounter Summary ---
:1970 Author Organization [facility] Address [address] [place] [address] Care Team Providers Name Role Phone Elsewhere, Pcp Primary Care Provider Unavailable Encounter Details Date Type Department Care Team Description 11/27/2020 Orders Only Division of Velma Munson Arthritis In flammatory Rheumatology in L, CART ATTENDANT, C.N.P. ([facility]) (Primary Dx) [place], [place] [address] [facility] [address] [place] [address] [phone] Social History Tobacco Use Types Packs/Day Years [...] logist Time Signature Cyclic <15.6 <20.0 02/06/2021 [facility] Citrullinated (Negative) 12:19 PM CDT Peptide Ab, S U Specimen Anatomical Collection Method Collection Time Receive d Time (Source) Location / / Volume Laterality Blood (Blood, 02/05/2021 2:08 PM 02/07/20 21 7:11 Venous) CDT AM CDT Velma Munson APRN, C.N.P. LAB BLOOD ADD-ON Performing Organization Address City/State/ZIP Code Phon e Number [facility] [address] [place] [address] SUPPORT CENTER [facility] [place] [address] Laboratory Medicine and Pathology [address] [place] (ABNORMAL) Rheumatoid Factor (02/05/2021 2:08 PM CDT) P athologist Signature Rheumatoid 18 (H) <15 IU/mL 02/06/2021 [facility] Factor, S 9:11 AM CDT Specimen Anatomical Collection Method Collection Time Receive d Time (Source) Location / / Volume Laterality Blood (Blood, 02/05/2021 2:08 PM 02/07/20 21 8:39 Venous) CDT AM CDT Velma Munson APRN, C.N.P. LAB BLOOD ADD-ON Performing Organization Address City/State/ZIP Code Phon e Number [facility] [address] [place], [place] [address] SUPPORT [facility] [place] [address] Laboratory Medicine and Pathology [address] [place] DNA Double-Stranded (dsDNA) Antibodies, IgG (02/05/2021 2:08 PM CDT) athologist Signature DNA <1 <=4 02/06/2021 [facility] Double-Stranded (Negative) 3:07 PM CDT Ab, IgG, S IU/mL Specimen Anatomical Collection Method Collection Time Receive d Time (Source) Location / / Volume Laterality Blood (Blood, 02/05/2021 2:08 PM 02/06/20 9:38 Venous) CDT PM CDT Velma Munson APRN, C.N.P. LAB BLOOD ADD-ON Performing Organization Address City/[facility] Phon e Number [facility]- [address] [place] [phone] [facility] [place] [address] Antibody to Extractable Nuclear Antigen Evaluation (02/05/2021 2:08 PM CDT) athologist Signature SS-A/Ro Ab, <0.2 <1.0 02/06/2021 [facility] IgG, S (Negative) 3:07 PM CDT U SS-B/La Ab, <0.2 <1.0 02/06/2021 [facility] IgG, S (Negative) 3:07 PM CDT U Sm Ab, IgG, S <0.2 <1.0 02/06/2021 [facility] (Negative) 3:07 PM CDT U PRODUCT SAFETY EXPERT Ab, IgG, S <0.2 <1.0 02/06/2021 [facility] [...] APRN.N.P. LAB BLOOD ADD-ON Performing Organization Address [facility] Phon e Number [facility]- [address] [place] [phone] [facility] [place] [address] [address] (ABNORMAL) Antinuclear Antibodies, HEp-2 Substrate, IgG, Serum (02/05/2021 2:08 PM CDT) [facility] Method Time Signature Antinuclear Ab Positive (A) Negative 02/09/2021 [facility] Screen by IFA, 8:06 AM CDT S Comment: MADELEINE screen positive, titer and pattern r esults to follow on next scheduled testing date. Specimen Anatomical Collection Method Collection Time Receive d Time (Source) Location / / Volume Laterality Blood (Blood, 02/05/2021 2:08 PM 02/06/20 9:38 Venous) CDT PM CDT Velma Munson APRN, CLennoxN.P. LAB BLOOD ADD-ON Performing Organization Address [facility] Phon e Number [facility]- [address] [place] [phone] [facility] [place] [address] System [address] documented in this encounter Visit Diagnoses Diagnosis Arthritis Inflammatory (HCC) - Primary documented in this encounter Additional Health Concerns Assessment Noted Time PHQ-9 Depression Total Score: 15 04/21/2018 1:00 PM CS T documented as of this encounter Care Teams Perinatal Technician Relationship Specialty Start Date End Date Elsewhere, Pcp PCP - General Internal Medicine 10/22/19 documented as of this encounter
--- OUTSIDE RECORDS SUMMARY | 2022-03-15 11:22 | XMS_ITS | Encounter Summary ---
:1970 Author Organization [facility] Address 200 [place] [address] Care Team Providers Name Role Phone Elsewhere, [...] documented as of this encounter Care Teams Refrigerating Engineer Relationship Specialty Start Date End Date Elsewhere, Pcp PCP - General Internal Medicine 10/22/19 documented as of this encounter
--- OUTSIDE RECORDS SUMMARY | 2022-03-15 11:22 | XMS_ITS | Encounter Summary ---
:1970 Author Organization [facility] Address 200 [place] [address] Care Team Providers Name Role Phone [...] documented as of this encounter Care Teams End User Consultant Relationship Specialty Start Date End Date Elsewhere, Pcp PCP - General Internal Medicine 10/22/19 documented as of this encounter
--- OUTSIDE RECORDS SUMMARY | 2022-03-15 11:22 | XMS_ITS | Encounter Summary ---
:1970 Author Organization [facility] Address [address] [place] [address] Care Team Providers Name Role Phone Elsewhere, Pcp Primary Care Provider Unavailable Reason for Visit Reason Comments Diarrhea Outpatient (Routine) - Closed Specialty Diagnoses / Procedures Referred By Contact Refer red To Contact Diagnoses Diarrhea Persistent Unexplained Julián Edouard M.D. [facility] Procedures Enema Prep [address] [place] [phone] Referral ID Status Reason Start Date Expiration Date Visits Requ ested Visits Authorized [id number] Closed 11/26/2020 11/26/2021 1 1 Encounter Details Date Type Department Care Team Description 12/04/2020 Clinical Support Enema Prep Facility Julián Edouard M.D. [address] [place] [phone] Diarrhea Persistent in [facility] Margi Duckworth M, RLennoxNLennox [address] [place] [phone] [facility] [address] [place] [phone] Social History Tobacco Use Types Packs/Day Years [...] 11/16/2021 organizations such as sabianism groups, unions, fraRealius or athletic groups, or school groups? How [...] as of this encounter Procedure Notes Margi Duckworth, RLennoxN. - 12/04/2020 1:55 PM CDT Patient arrived [...] Enema was not given. She went to [facility] 9 to reschedule and I gave her a parking pass as this was miscommunication. documented in this encounter Plan of Treatment Not on filedocumented as of this encounter Visit Diagnoses Diagnosis Diarrhea Persistent Unexplained documented in this encounter Additional Health Concerns Assessment Noted Time PHQ-9 Depression Total Score: 15 04/21/2018 1:00 PM CS T documented as of this encounter Care Teams Food Porter Relationship Specialty Start Date End Date Elsewhere, Pcp PCP - General Internal Medicine 10/22/19 documented as of this encounter
--- OUTSIDE RECORDS SUMMARY | 2022-03-15 11:22 | XMS_ITS | Encounter Summary ---
:1970 Author Organization [facility] Address [address] [place] [address] Care Team Providers Name Role Phone Elsewhere, Pcp Primary Care Provider Unavailable Reason for Visit Reason Comments Diarrhea Outpatient (Routine) - Closed Specialty Diagnoses / Procedures Referred By Contact Refer red To Contact Diagnoses Diarrhea Persistent Unexplained Julián Edouard M.D. [facility] Procedures Enema Prep [address] [place] [phone] Referral ID Status Reason Start Date Expiration Date Visits Requ ested Visits Authorized [id number] Closed 12/04/2020 12/04/2021 1 1 Encounter Details Date Type Department Care Team Description 12/11/2020 Clinical Support Enema Prep Facility Julián Edouard M.D. [address] [place] [phone] Diarrhea Persistent in [facility] Renee Armendariz, RLennoxNLennox [address] [place] [phone] [facility] [address] [place] [phone] Social History Tobacco Use Types Packs/Day Years [...] 11/16/2021 organizations such as muslim groups, unions, fraCamera Agroalimentos or athletic groups, or school groups? How [...] documented as of this encounter Care Teams Legal Support Assistant Relationship Specialty Start Date End Date Elsewhere, Pcp PCP - General Internal Medicine 10/22/19 documented as of this encounter
--- OUTSIDE RECORDS SUMMARY | 2022-03-15 11:22 | XMS_ITS | Encounter Summary ---
:1970 Author Organization [facility] Address [address] [place] [address] Care Team Providers Name Role Phone Elsewhere, Pcp Primary Care Provider Unavailable Encounter Details Date Type Department Care Team Description 11/19/2020 Anesthesia Event Division of Bev Keane, PIEROGI MAKER, SANITATION DIRECTOR, DNAP [address] [place] [phone] Gastroenterology in [facility]welina M.D. [address] [place] [address] [place], [place] [address] [place] [phone] Anesthesia Record Procedure Summary Procedure Name Responsible Anesthesia Start Anesthesia Stop Anesthesiologist Time Time EGD Nano Keane, 11/19/20 0924 11/19/20 1015 (ESOPHAGOGASTRODUODE PIEROGI MAKER, SANITATION DIRECTOR, DNAP NOSCOPY) RESTRICTED Events Date Time Event [...] h andoff to the receiving staff during [employer] we 1. Identified the patient 2. [...] Room / Location: Division of Gastroenterology in [place], [place]; Division of Gastroenterology in [place], [place] Anesthesia Start: 923 Anesthesia Stop: 1014 [...] & H&P Assessment Procedure Summary Date/Time: 11/19/20 0705 Scheduled providers: Nano Keane APRN, CRNA, LOGAN Procedures: EGD (ESOPHAGOGASTRODUODENOSCOPY) RESTRICTED COLONOSCOPY Diagnosis: Gastroesophageal Reflux Disease [K21.9] Diarrhea Persistent Unexplained [R19.7] Location: Division of Gastroenterology in [place], [place]; Division of Gastroenterology in [place], [place] Pertinent components of the patient's history [...] with patient /legal guardian or through an cyber transport systems specialist. Risks/Benefits/Alternatives of Blood transfusion discussed with [...] documented as of this encounter Care Teams Fiberglass Boat Maker Relationship Specialty Start Date End Date Elsewhere, Pcp PCP - General Internal Medicine 10/22/19 documented as of this encounter
--- OUTSIDE RECORDS SUMMARY | 2022-03-15 11:22 | XMS_ITS | Encounter Summary ---
:1970 Author Organization [facility] Address [address] [place] [address] Care Team Providers Name Role Phone Elsewhere, Pcp Primary Care Provider Unavailable Reason for Visit Reason Comments Lab Monitoring Methotrexate Encounter Details Date Type Department Care Team Description 02/02/2021 Clinical Communication Division of Justine Weeks onitoring Rheumatology in L, M.S.N., (Methotrexat e ) [place], [place] R.N. [address] [facility] [address] [place] [phone] [facility] [phone] [place] [phone] Social History Tobacco Use Types Packs/Day Years [...] on 02/05. Telephone Encounter - Justine Weeks M.SDeshawn., R.N. - 02/02/2021 1:14 PM CDT Patient [...] documented as of this encounter Care Teams Tactical Response Group Officer Relationship Specialty Start Date End Date Elsewhere, Pcp PCP - General Internal Medicine 10/22/19 documented as of this encounter
--- OUTSIDE RECORDS SUMMARY | 2022-03-15 11:22 | XMS_ITS | Encounter Summary ---
:[address] [facility] Address [address] [place] [address] Care Team Providers Name Role Phone Elsewhere, Pcp Primary Care Provider Unavailable Reason for Visit Reason Comments Med Refill Encounter Details Date Type Department Care Team Description 12/18/2020 Refill Division of Gastroenterology in Julián Edouard Med Refill [place], [place] Alex [address] [facility] [address] [place] [address] [place], [place] [phone] (Wo rk) Social History Tobacco Use Types [...] Julián Edouard M.D. CT CT Job ID: [id number]/srt documented in this encounter Plan of Treatment Not on filedocumented as of this encounter Visit Diagnoses Not on filedocumented in this encounter Additional Health Concerns Assessment Noted Time PHQ-9 Depression Total Score: 15 04/21/2018 1:00 PM CS T documented as of this encounter Care Teams Tank Farm Gauger Relationship Specialty Start Date End Date Elsewhere, Pcp PCP - General Internal Medicine 10/22/19 documented as of this encounter
--- OUTSIDE RECORDS SUMMARY | 2022-03-15 11:22 | XMS_ITS | Encounter Summary ---
:1970 Author Organization [facility] Address [address] [place] [address] Care Team Providers Name Role Phone Elsewhere, Pcp Primary Care Provider Unavailable Encounter Details Date Type Department Care Team Description 12/16/2020 Orders Only [facility] PCP [facility] Sa jordy Gibson M.D. [address] [place], [place] [phone] (Wo rk) Social History Tobacco Use Types [...] of this encounter Care Teams Drying Machine Operator Relationship Specialty Start Date End Date Elsewhere, Pcp PCP - General Internal Medicine 10/22/19 documented as of this encounter
--- OUTSIDE RECORDS SUMMARY | 2022-03-15 11:22 | XMS_ITS | Encounter Summary ---
:1970 Author Organization [facility] Address 200 [place] [address] Care Team Providers Name Role Phone Elsewhere, Pcp Primary Care Provider Unavailable Encounter Details Date Type Department Care Team Description 11/11/2020 Orders Only Pharmacy Prior Auth RO Elsewhere, Pcp [phone] Social History Tobacco Use Types Packs/Day Years [...] documented as of this encounter Care Teams Electrician Relationship Specialty Start Date End Date Elsewhere, Pcp PCP - General Internal Medicine 10/22/19 documented as of this encounter
--- OUTSIDE RECORDS SUMMARY | 2022-03-15 11:22 | XMS_ITS | Encounter Summary ---
:1970 Author Organization [facility] Address [address] [place] [address] Care Team Providers Name Role Phone Elsewhere, Pcp Primary Care Provider Unavailable Encounter Details Date Type Department Care Team Description 11/26/2020 Hospital Encounter Department of Velma Munson ation Therapy Laboratory Medicine L, TAX COMPLIANCE REPRESENTATIVE, C.N .P. [place] Not and Pathology, [address] [place] [address] [facility] [address] [place] [phone] [place] [address] (Work) [place], [place] [phone] [phone] (Fax) [phone] Social History Tobacco Use Types Packs/Day Years [...] tabletIndications: total) by mouth Arthritis Inflammatory daily. ([facility]) hydrOXYchloroQUINE Take 1-2 tablets 135 tablet 3 05/27/2020 06/01/2021 (PLAQUENIL) 200 mg (200-400 mg total) tabletIndications: by mouth daily. Arthritis Inflammatory Take 2 tab on even (HCC) days, 1 on odd. methotrexate 25 mg/mL Inject 0.8 mL (20 10 mL 1 021 11/27/2020 injectionIndications: mg total) under the Arthritis Inflammatory skin once a week. ([facility]) pantoprazole (PROTONIX) Take 1 tablet (40 60 tablet 11 11/2603/04/2022 40 mg EC tablet mg total) by mouth 2 (two) times a day. [id number] Drink 1st portion 1 box(es) 0 10/07/20202021 [id number] of prep at 6 PM the (MOVIPREP) [...] T herapy Results for this AM CDT Detention Not procedure are in Anticoagulant the results section. ASPARTATE Routine 11/26/2020 11:50 Medication Therapy Resul ts for this AMINOTRANSFERASE (AST), AM CDT [place] Not pro cedure are in S/P Anticoagulant the results section. CREATININE WITH EGFR, Routine 11/26/2020 11:50 Medication Ther apy Results for this S/P AM CDT Detention Not procedure are in Anticoagulant the results section. documented in this encounter Results Creatinine with Estimated GFR (11/26/2020 11:50 AM CDT) athologist Signature Creatinine 0.82 0.59 - 11/26/2020 DTL 1.04 mg/dL 1:22 PM CDT eGFR-Non 85 >=60 11/26/2020 DTL Black/ mL/min/BSA 1:22 PM CDT [place] Comment: ----ADDITIONAL INFORMATION---- Estimated GFR calculated using the 2009 CKD_EPI creatinine equation. eGFR-Black/ >90 >=60 mL/min/BSA 2020 1:22 PM CDT DTL Comment: ----ADDITIONAL INFORMATION---- Estimated GFR calculated using the 2009 CKD_EPI creatinine equation. Specimen Anatomical Collection Method Collection Time Receive d Time (Source) Location / / Volume Laterality Blood (Blood, 11/26/2020 11:50 11/26/2020 Venous) AM CDT 12:23 PM CDT Jorge Polo APRNNLennoxPLennox LAB BLOOD ADD-ON Performing Organization Address City/State/ZIP Code Phon e Number [facility] - [address] [place], [place] [address] [facility] [address] Laboratories-[facility] [address] AST (Aspartate Aminotransferase) (11/26/2020 11:50 AM CDT) [facility] gist Method Time Signature Aspartate 28 8 - 43 11/26/2020 DTL Aminotransferase U/L 1:22 PM CDT (AST), S Specimen Anatomical Collection Method Collection Time Receive d Time (Source) Location / / Volume Laterality Blood (Blood, 11/26/2020 11:50 11/26/2020 Venous) AM CDT 12:23 PM CDT Velma Munson APRN, C.N.P. LAB BLOOD ADD-ON Performing Organization Address City/State/ZIP Code Phon e Number [facility] - 200 [place], [place] [address] [facility] [place] [address] [facility] 200 [facility] CBC with Differential, Blood (11/26/2020 11:50 [...] CDT 12:17 PM CDT Velma Munson APRN C.NLennoxPLennox LAB BLOOD ADD-ON Performing Organization Address City/State/ZIP Code Phon e Number [facility] - [address] [place], [place] [address] [facility] [place] [address] Laboratories-[facility] [address] documented in this encounter Visit Diagnoses Diagnosis Medication Therapy Detention Not Anticoa gulant documented in this encounter Additional Health Concerns Assessment Noted Time PHQ-9 Depression Total Score: 15 04/21/2018 1:00 PM CS T documented as of this encounter Care Teams Podopediatrician Relationship Specialty Start Date End Date Elsewhere, Pcp PCP - General Internal Medicine 10/22/19 documented as of this encounter
--- OUTSIDE RECORDS SUMMARY | 2022-03-15 11:22 | XMS_ITS | Encounter Summary ---
:1970 Author Organization [facility] Address [address] [place] [address] Care Team Providers Name Role Phone Elsewhere, Pcp Primary Care Provider Unavailable Reason for Visit Reason Comments Med Refill Encounter Details Date Type Department Care Team Description 01/11/2021 Refill Division of Rheumatology in Smita Munson sa, APRN, Med Refill [place], [place] C.N.P. [address] [facility] [address] [place] [address] [place] [address] [phone] (Wo rk) Social History Tobacco Use Types [...] as of this encounter Care Teams Enterprise Architect Relationship Specialty Start Date End Date Elsewhere, Pcp PCP - General Internal Medicine 10/22/19 documented as of this encounter
--- OUTSIDE RECORDS SUMMARY | 2022-03-15 11:22 | XMS_ITS | Encounter Summary ---
:1970 Author Organization [facility] Address [address] [place] [address] Care Team Providers Name Role Phone Elsewhere, Pcp Primary Care Provider Unavailable Encounter Details Date Type Department Care Team Description 11/15/2020 Hospital Encounter Department of Silke, Preproce dural Lab Exam; Laboratory Medicine Julián Narayan M.D. Negative COVID-19 Test (Contact With And (Suspected) Exposure To COVID-19) in [place] [address] [address] [place], [place] [address] [facility] [address] [place], [place] [phone] [address] (Work) [phone] Social History Tobacco Use Types Packs/Day Years [...] to pay for the very basics like [employer] hat hard 11/16/2021 food, housing, medical care, [...] tabletIndications: total) by mouth Arthritis Inflammatory daily. ([facility]) hydrOXYchloroQUINE Take 1-2 tablets 135 tablet 3 05/27/2020 06/01/2021 (PLAQUENIL) 200 mg (200-400 mg total) tabletIndications: by mouth daily. Arthritis Inflammatory Take 2 tab on even (HCC) days, 1 on odd. methotrexate 25 mg/mL Inject 0.8 mL (20 10 mL 1 021 11/27/2020 injectionIndications: mg total) under the Arthritis Inflammatory skin once a week. ([facility]) [id number] Drink 1st portion 1 box(es) 0 10/07/20202021 [id number] of prep at 6 PM the (MOVIPREP) [...] RNA, V Asymptomatic (11/15/2020 11:18 AM CDT) [facility] Method Time Signature SARS-CoV-2 Swab, 11/15/2020 [...] pe rformed using the Aptima SARS-CoV-2 assay ([employer] on the Merkles tem under emergency use authorization (EUA) by the U.S. Food and Drug Administ ration. Fact sheets for this EUA assay can be fo und at the following links: For Healthcare Providers: https://www.fd a.gov/media/801825/download For Patients: https://www.fda.gov/media/ 014266/download Specimen Anatomical Collection Method Collection Time Receive d Time (Source) Location / / Volume Laterality Varies 11/15/2020 11:18 11/15/2020 4:01 (Nasopharynx) AM CDT PM CDT Julián Edouard M.D. LAB MICROBIOLOGY - GENERAL O RDERABLES Performing Organization Address City/State/ZIP Code Phon e Number [facility]- [address] [place] [address] [place] [address] [address] documented in this encounter Visit Diagnoses [...] as of this encounter Care Teams Video Recorder Mechanic Relationship Specialty Start Date End Date Elsewhere, Pcp PCP - General Internal Medicine 10/22/19 documented as of this encounter
--- OUTSIDE RECORDS SUMMARY | 2022-03-15 11:22 | XMS_ITS | Encounter Summary ---
:1970 Author Organization [facility] Address [address] [place] [address] Care Team Providers Name Role Phone Elsewhere, Pcp Primary Care Provider Unavailable Reason for Referral Physical Therapy (Routine) - Closed Specialty Diagnoses / Procedures Referred By Contact Refer red To Contact Diagnoses Constipation Julián Edouard M.D. [facility] Procedures PMR Pelvic floor & bowel/bladder rehab [address] [place] [phone] Referral ID Status Reason Start Date Expiration Date Visits Requ ested Visits Authorized [id number] Closed 12/18/2020 12/18/2021 1 1 Encounter Details Date Type Department Care Team Description 12/18/2020 Orders Only Division of Jose Edouard (P [facility] Gastroenterology in Julián Narayan M.D. Dx) [place], [place] [address] [place] [address] 200 [place] [phone] Social History Tobacco Use Types Packs/Day Years [...] 11/16/2021 organizations such as spiritism groups, unions, fraPeople and Pages or athletic groups, or school groups? How [...] documented as of this encounter Care Teams Primary School Teacher Librarian Relationship Specialty Start Date End Date Elsewhere, Pcp PCP - General Internal Medicine 10/22/19 documented as of this encounter
--- OUTSIDE RECORDS SUMMARY | 2022-03-15 11:23 | XMS_ITS | Encounter Summary ---
:1970 Author Organization [facility] Address [address] [place] [address] Care Team Providers Name Role Phone Elsewhere, Pcp Primary Care Provider Unavailable Reason for Visit Reason Comments Comprehensive GI Results Encounter Details Date Type Department Care Team Description 09/30/2020 Clinical Division of Lolita Edouard I; Communication Gastroenterology in Abby Wilde [place], [place] Alex [address] [facility] [address] [facility] [phone] [facility] [phone] [place] [address] Social History Tobacco Use Types Packs/Day Years [...] documented as of this encounter Care Teams Fire Supervisor Relationship Specialty Start Date End Date Elsewhere, Pcp PCP - General Internal Medicine 10/22/19 documented as of this encounter
--- OUTSIDE RECORDS SUMMARY | 2022-03-15 11:23 | XMS_ITS | Encounter Summary ---
:1970 Author Organization [facility] Address [address] [place] [address] Care Team Providers Name Role Phone Elsewhere, Pcp Primary Care Provider Unavailable Reason for Visit Reason Comments Med Refill Encounter Details Date Type Department Care Team Description 10/02/2020 Refill Division of Rheumatology in Sarah Chavez R.N. Med Refill [place], [place] [address] [facility] [address] [place] [address] [phone] Social History Tobacco Use Types Packs/Day Years [...] Velma Munson APRN, SINTIA Future office visit: not ordered Last monitoring [...] documented as of this encounter Care Teams Consumer Loan Processor Relationship Specialty Start Date End Date Elsewhere, Pcp PCP - General Internal Medicine 10/22/19 documented as of this encounter
--- OUTSIDE RECORDS SUMMARY | 2022-03-15 11:23 | XMS_ITS | Encounter Summary ---
:1970 Author Organization [facility] Address [address] [place] [address] Care Team Providers Name Role Phone Elsewhere, Pcp Primary Care Provider Unavailable Reason for Visit Outpatient (Routine) - Closed Specialty Diagnoses / Procedures Referred By Contact Refer red To Contact Rheumatology Velma Munson APRN, [facility] C.N.P. [address] [place] [phone] Referral ID Status Reason Start Date Expiration Date Visits Requ ested Visits Authorized [id number] Closed 10/02/2020 10/02/2021 1 1 Encounter Details Date Type Department Care Team Description 10/31/2020 Virtual Visit Division of Velma Munson APRN, C.N.P. [address] [place] [phone] Medication Therapy Puncher And Fastener Not Anticoa gulant (Primary Dx); [facility] [address] [place] [phone] Arthritis Inflammatory (HCC) [place], [place] [address] [place] [phone] Social History Tobacco Use Types Packs/Day Years [...] 11/16/2021 organizations such as temple groups, unions, fraChampion Windows or athletic groups, or school groups? How [...] only with labs to be drawn in [place] on tuesday at 7:00 AM. Her Pharmacy is [facility] in [place], and would like a prescription for needles [...] 11/26/2020 DTL Black/ mL/min/BSA 1:22 PM CDT [place] Comment: ----ADDITIONAL INFORMATION---- Estimated GFR calculated using [...] [facility] - [address] [place], [place] [address] [facility] [place] [address] Laboratories-[facility] [address] AST (Aspartate Aminotransferase) (11/26/2020 11:50 AM CDT) Patholo gist Method Time Signature Aspartate 28 8 - 43 11/26/2020 DTL Aminotransferase U/L 1:22 PM CDT (AST), S Specimen Anatomical Collection Method Collection Time Receive d Time (Source) Location / / Volume Laterality Blood (Blood, 11/26/2020 11:50 11/26/2020 Venous) AM CDT 12:23 PM CDT Velma Munson APRN C.N.P. LAB BLOOD ADD-ON Performing Organization Address City/State/ZIP Code Phon e Number [facility] - 200 [place], [place] [address] [facility] [place] [address] Laboratories-[facility] 200 [facility] CBC with Differential, Blood (11/26/2020 11:50 AM [...] 11/26/2020 Venous) AM CDT 12:17 PM CDT Jorge Polo APRNNLennoxPLennox LAB BLOOD ADD-ON Performing Organization Address City/State/ZIP Code Phon e Number [facility] - [address] [place], [place] [address] [facility] [place] [address] Laboratories-[facility] [address] documented in this encounter Visit Diagnoses Diagnosis Medication Therapy Puncher And Fastener Not Anticoa gulant - Primary Arthritis Inflammatory (HCC) documented in this encounter Additional Health Concerns Assessment Noted Time PHQ-9 Depression Total Score: 15 04/21/2018 1:00 PM CS T documented as of this encounter Care Teams Business Systems Technician Relationship Specialty Start Date End Date Elsewhere, Pcp PCP - General Internal Medicine 10/22/19 documented as of this encounter
--- OUTSIDE RECORDS SUMMARY | 2022-03-15 11:23 | XMS_ITS | Encounter Summary ---
:1970 Author Organization [facility] Address [address] [place] [address] Care Team Providers Name Role Phone Elsewhere, Pcp Primary Care Provider Unavailable Encounter Details Date Type Department Care Team Description 09/26/2020 Lab Department of Laboratory Julián Edouard Preprocedural Lab Exam Medicine and Pathology, Alex [facility] in [address] [place] [address] [place] [address] [place] [address] [phone] Social History Tobacco Use Types Packs/Day Years [...] PCR, Varies Asymptomatic (09/26/2020 3:59 PM CDT) [facility] gist Method Time Signature SARS CoV-2 [...] Drug Administration an d is used per river transportation worker's instructions. Performance characteristics were verified by [facility] in a manner consistent with CLIA requirements. Visit the CDC website: https://www.cdc.g ov/coronavirus/ for the most recent guidelines on Coron avirus testing. Fact Sheet for Healthcare Providers: https://www.fda.gov/media/038046/downloa d Fact Sheet for Patients: https://www.fda.gov/media/983861/downloa d Specimen Anatomical Collection Method Collection Time Receive d Time (Source) Location / / Volume Laterality Varies 09/26/2020 3:59 PM 4:15 (Nasopharynx) CDT PM CDT Julián Edouard M.D. LAB MICROBIOLOGY - GENERAL O RDERABLES Performing Organization Address City/State/ZIP Code Phon e Number [facility] - [address] [place], [place] [address] [facility] [place] [place] [address] [facility] [address] documented in this encounter Visit Diagnoses Diagnosis Preprocedural Lab Exam documented in this encounter Additional Health Concerns Infection Onset Date Last Indicated Resolved Time COVID19 Pending 09/19/2020 09/26/2020 09/27/2020 5:53 AM CDT Assessment Noted Time PHQ-9 Depression Total Score: 15 04/21/2018 1:00 PM CS T documented as of this encounter Care Teams Communications Consultant Relationship Specialty Start Date End Date Elsewhere, Pcp PCP - General Internal Medicine 10/22/19 documented as of this encounter
--- OUTSIDE RECORDS SUMMARY | 2022-03-15 11:23 | XMS_ITS | Encounter Summary ---
:1970 Author Organization [facility] Address [address] [place] [address] Care Team Providers Name Role Phone Elsewhere, Pcp Primary Care Provider Unavailable Reason for Visit Outpatient (Routine) - Closed Specialty Diagnoses / Procedures Referred By Contact Refer red To Contact Rheumatology Velma Munson APRN, [facility] [address] [place] [phone] Referral ID Status Reason Start Date Expiration Date Visits Requ ested Visits Authorized [id number] Closed 10/02/2020 10/02/2021 1 1 Encounter Details Date Type Department Care Team Description 10/31/2020 Virtual Visit Division of Velma Munson APRN, C.N.P. [address] [place] [phone] Arthritis Rheumatoid [facility]. [address] [place] [phone] ([facility]) [place], [place] [address] [place] [phone] Social History Tobacco Use Types Packs/Day Years [...] 11/16/2021 organizations such as sabianist groups, unions, fraNotify Technology or athletic groups, or school groups? How [...] documented as of this encounter Care Teams Chairman And Ceo Relationship Specialty Start Date End Date Elsewhere, Pcp PCP - General Internal Medicine 10/22/19 documented as of this encounter
--- OUTSIDE RECORDS SUMMARY | 2022-03-15 11:23 | XMS_ITS | Encounter Summary ---
:1970 Author Organization [facility] Address [address] [place] [address] Care Team Providers Name Role Phone Elsewhere, Pcp Primary Care Provider Unavailable Reason for Referral Outpatient (Routine) - Closed Specialty Diagnoses / Procedures Referred By Contact Refer red To Contact Diagnoses Flatulence Julián Edouard M.D. [facility] Procedures Breath test, Hydrogen, Lactose - Lactase deficiency [address] [place], [place] [phone] Referral ID Status Reason Start Date Expiration Date Visits Requ ested Visits Authorized [id number] Closed 08/19/2020 08/19/2021 1 1 Reason for Visit Outpatient (Routine) - Closed Specialty Diagnoses / Procedures Referred By Contact Refer red To Contact Diagnoses Juanulence Julián Edouard M.D. [facility] Procedures Breath test, Hydrogen, Lactose - Lactase deficiency [address] [place] [address] Referral ID Status Reason Start Date Expiration Date Visits Requ ested Visits Authorized [id number] Closed 08/19/2020 08/19/2021 1 1 Encounter Details Date Type Department Care Team Description 09/25/2020 Hospital Encounter Division of Gastroenterology Julián Freeman in [facility] kristin Narayan M.D. [address] [facility] [address] [place] [address] [place], [place] [phone] Social History Tobacco Use Types Packs/Day Years [...] base line). 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 ?? Symptoms: None ?? Elevated baseline hydrogen and/or methan e may reflect dietary non-compliance (e.g. consumption of slowly-digesting, f iber containing foods the day before the test) or other causes, such as sever e constipation. Alejo Butcher ([id number]) ?? ----PREVIOUSLY REPORTED ---- Negative breath test for lactose malabsorption (less than or equal to 19 PPM rise in breath hydrogen compared to baseline). 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 ?Symptoms: None ?? Elevated baseline hydrogen and/or methan e may reflect dietary non-compliance (e.g. consumption of slowly-digesting, f iber containing foods the day before the test) or other causes. Alejo Butcher ([id number]) ?(Reported 2020 16:11) Specimen Anatomical Collection Method Collection Time Receive d Time (Source) Location / / Volume Laterality Breath 09/25/2020 2:08 PM 2:08 CDT PM CDT Julián Edouard M.D. LAB BODY FLUIDS AND STOOLS Eric RENDON Performing Organization Address City/State/ZIP Code Phon e Number [facility] - [address] [place], [place] [address] [place] [address] Laboratories-[facility] [address] documented in this encounter Visit Diagnoses Diagnosis Flatulence documented in this encounter Additional Health Concerns Infection Onset Date Last Indicated Resolved Time COVID19 Pending 09/19/2020 09/26/2020 09/27/2020 5:53 AM CDT Assessment Noted Time PHQ-9 Depression Total Score: 15 04/21/2018 1:00 PM CS T documented as of this encounter Care Teams Level Vial Grinder Relationship Specialty Start Date End Date Elsewhere, Pcp PCP - General Internal Medicine 10/22/19 documented as of this encounter
--- OUTSIDE RECORDS SUMMARY | 2022-03-15 11:23 | XMS_ITS | Encounter Summary ---
:1970 Author Organization [facility] Address [address] [place] [address] Care Team Providers Name Role Phone Elsewhere, Pcp Primary Care Provider Unavailable Reason for Referral Outpatient (Routine) - Closed Specialty Diagnoses / Procedures Referred By Contact Refer red To Contact Diagnoses Julián Carpio M.D. [facility] Procedures Breath test, Hydrogen, Glucose - Bacterial overgrowth [address] [place] [address] Referral ID Status Reason Start Date Expiration Date Visits Requ ested Visits Authorized [id number] Closed 08/19/2020 08/19/2021 1 1 Reason for Visit Outpatient (Routine) - Closed Specialty Diagnoses / Procedures Referred By Contact Refer red To Contact Diagnoses Julián Carpio M.D. [facility] Procedures Breath test, Hydrogen, Glucose - Bacterial overgrowth [address] [place] [address] Referral ID Status Reason Start Date Expiration Date Visits Requ ested Visits Authorized [id number] Closed 08/19/2020 08/19/2021 1 1 Encounter Details Date Type Department Care Team Description 09/30/2020 Hospital Encounter Division of Gastroenterology Julián Freeman in [facility] kristin Narayan M.D. [address] [facility] [address] [place] [address] [place], [place] [phone] Social History Tobacco Use Types Packs/Day Years [...] diarrhea with steatorrhea. ??Symptoms: None Sheila Anthony ([id number]) Specimen Anatomical Collection Method Collection Time Receive d Time (Source) Location / / Volume Laterality Breath 09/30/2020 2:38 PM 2:38 CDT PM CDT Julián Edouard M.D. LAB BODY FLUIDS AND STOOLS O RDERABLES Performing Organization Address City/State/ZIP Code Phon e Number [facility] - [address] [place], [place] [address] [facility] [place] [address] Laboratories-[facility] [address] documented in this encounter Visit Diagnoses Diagnosis Flatulence documented in this encounter Additional Health Concerns Assessment Noted Time PHQ-9 Depression Total Score: 15 04/21/2018 1:00 PM CS T documented as of this encounter Care Teams Mail Inserter Relationship Specialty Start Date End Date Elsewhere, Pcp PCP - General Internal Medicine 10/22/19 documented as of this encounter
--- OUTSIDE RECORDS SUMMARY | 2022-03-15 11:23 | XMS_ITS | Encounter Summary ---
:1970 Author Organization [facility] Address [address] [place] [address] Care Team Providers Name Role Phone Elsewhere, Pcp Primary Care Provider Unavailable Reason for Visit Reason Comments Lab Monitoring 1st delay Encounter Details Date Type Department Care Team Description 09/17/2020 Documentation Division of Velma Munson Lab Monitor ing (1st Rheumatology in L, TREATMENT PLANT MECHANIC, C.N.P. delay) [place], [place] [address] [facility] [address] [place] [phone] Social History Tobacco Use Types Packs/Day Years [...] documented as of this encounter Care Teams Robotics Technician Relationship Specialty Start Date End Date Elsewhere, Pcp PCP - General Internal Medicine 10/22/19 documented as of this encounter
--- OUTSIDE RECORDS SUMMARY | 2022-03-15 11:23 | XMS_ITS | Encounter Summary ---
:[address] [facility] Address [address] [place] [address] Care Team Providers Name Role Phone Elsewhere, Pcp Primary Care Provider Unavailable Reason for Visit Reason Comments Patient Education Methotrexate Adjustment Encounter Details Date Type Department Care Team Description 10/09/2020 Virtual Visit Division of Velma Munson APRN, C.N.P. [address] [place] [address] Arthritis Rheumatoid [facility] [address] [place] [phone] ([facility]) [place], [place] [address] [place] [address] Social History Tobacco Use Types [...] to pay for the very basics like [employer] hat hard 11/16/2021 food, housing, medical care, [...] encounter Progress Notes Irene Andujar RLennoxN. - 10/09/2020 8:30 AM CDT SUBJECTIVE REASON FOR CALL Medication Education HISTORY OF PRESENT ILLNESS Waleska Diaz has a diagnosis of rheumatoid arthritis. Velma Munson APRN, SHORT STORY WRITER requested nursing assistance with medication education. Reviewed education on methotrexate adjustment program with the patient. Discussed purpose, administration, lab monitoring, and when to contact your provider. All questions were answered. Patient enrolled in the Methotrexate Adjustment Protocol per provider request. [facility]. Follow-up with nursing via CALL in in 4 weeks. documented in this encounter Plan of Treatment Not on filedocumented as of this encounter Visit Diagnoses Diagnosis Arthritis Rheumatoid (HCC) documented in this encounter Additional Health Concerns Assessment Noted Time PHQ-9 Depression Total Score: 15 04/21/2018 1:00 PM CS T documented as of this encounter Care Teams Loss Prevention And Safety Manager Relationship Specialty Start Date End Date Elsewhere, Pcp PCP - General Internal Medicine 10/22/19 documented as of this encounter
--- OUTSIDE RECORDS SUMMARY | 2022-03-15 11:23 | XMS_ITS | Encounter Summary ---
:1970 Author Organization [facility] Address [address] [place] [address] Care Team Providers Name Role Phone Elsewhere, Pcp Primary Care Provider Unavailable Reason for Visit Reason Comments Labs Only Encounter Details Date Type Department Care Team Description 10/01/2020 Documentation Division of Rheumatology Monico Gomes, Labs Only in [facility] kristin R.N. [address] [facility] [address] [place] [address] [place], [place] [phone] Social History Tobacco Use Types Packs/Day Years [...] CDT eGFR-Black/Afric 89 >=60 10/30/2020 CNFL an Tajik mL/min/BSA 6:20 PM CDT Comment: ----ADDITIONAL INFORMATION---- [...] Karlene.N.P. LAB BLOOD ADD-ON Performing Organization Address [facility] Phon e Number [address] [address] [place] [address] [address] AST (Aspartate Aminotransferase) (10/30/2020 5:53 PM CDT) [facility] Method Time Signature Aspartate 28 8 - 43 10/30/2020 CNFL Aminotransferase U/L 6:20 PM CDT (AST), P Specimen Anatomical Collection Method Collection Time Receive d Time (Source) Location / / Volume Laterality Blood (Blood, 10/30/2020 5:53 PM 10/31/19 5:58 Venous) CDT PM CDT Jorge Polo APRNN.P. LAB BLOOD ADD-ON Performing Organization Address [facility] Phon e Number [address] [address] [place] [address] System [address] (ABNORMAL) CBC with Differential, Blood (10/30/2020 5:53 PM CDT) [facility] [employer] Method Time Signature Hemoglobin 14.0 11.6 - [...] LAB BLOOD ADD-ON Performing Organization Address City/State/[facility] Code Phon e Number [facility]- [address] [place] [address] [place] [address] System [address] documented in this encounter Visit Diagnoses Diagnosis Medication Therapy Tribal Judge Not Anticoa gulant - Primary documented in this encounter Additional Health Concerns Assessment Noted Time PHQ-9 Depression Total Score: 15 04/21/2018 1:00 PM CS T documented as of this encounter Care Teams Family Nurse Relationship Specialty Start Date End Date Elsewhere, Pcp PCP - General Internal Medicine 10/22/19 documented as of this encounter
--- OUTSIDE RECORDS SUMMARY | 2022-03-15 11:23 | XMS_ITS | Encounter Summary ---
:1970 Author Organization [facility] Address [address] [place] [address] Care Team Providers Name Role Phone Elsewhere, Pcp Primary Care Provider Unavailable Encounter Details Date Type Department Care Team Description 10/30/2020 Hospital Encounter Department of Velma Munson ation Therapy Laboratory Medicine L, RESTAURANT EXPEDITOR, C.N .P. Ch[facility] Not in [place] [phone] [facility] [phone] [place], [place] (Work) [phone] Social History Tobacco Use [...] Inflammatory the skin once a (HCC) week. [id number] Drink 1st portion 1 box(es) 0 10/07/20202021 [id number]-[id number]-C of prep at 6 PM (MOVIPREP) 100-7.5-2.691 [...] Th erapy Results for this PM CDT Ch[facility] Not procedure are in Anticoagulant the results section. ASPARTATE Routine 10/30/2020 5:53 Medication Therapy Result s for this AMINOTRANSFERASE (AST), PM CDT Rn Rehabilitation Not pro cedure are in S/P Anticoagulant the results section. CREATININE WITH EGFR, Routine 10/30/2020 5:53 Medication Thera py Results for this S/P PM CDT Rn Rehabilitation Not procedure are in Anticoagulant the results section. documented in this encounter Results Creatinine with Estimated GFR (10/30/2020 5:53 PM CDT) P athologist Signature Creatinine 0.89 0.59 - 10/30/2020 CNFL 1.04 mg/dL 6:20 PM CDT eGFR-Black/Afric 89 >=60 10/30/2020 CNFL an Ukrainian mL/min/BSA 6:20 PM CDT Comment: ----ADDITIONAL INFORMATION---- [...] C.N.P. LAB BLOOD ADD-ON Performing Organization Address [facility] Phon e Number [address] [address] [place] [address] [address] AST (Aspartate Aminotransferase) (10/30/2020 5:53 PM CDT) Patholo gist Method Time Signature Aspartate 28 8 - 43 10/30/2020 CNFL Aminotransferase U/L 6:20 PM CDT (AST), P Specimen Anatomical Collection Method Collection Time Receive d Time (Source) Location / / Volume Laterality Blood (Blood, 10/30/2020 5:53 PM 10/31/19 5:58 Venous) CDT PM CDT Velma Munson APRN, C.N.P. LAB BLOOD ADD-ON Performing Organization Address [facility] Phon e Number [address] [address] [place] [address] (ABNORMAL) CBC with Differential, Blood (10/30/2020 5:53 PM CDT) [facility] Method Time Signature Hemoglobin 14.0 11.6 - [...] Organization Address City/State/ZIP Code Phon e Number [facility]- [address] [place] [address] [place] [address] [address] documented in this encounter Visit Diagnoses Diagnosis Medication Therapy Rn Rehabilitation Not Anticoa gulant documented in this encounter Additional Health Concerns Assessment Noted Time PHQ-9 Depression Total Score: 15 04/21/2018 1:00 PM CS T documented as of this encounter Care Teams Net Developer Programmer Relationship Specialty Start Date End Date Elsewhere, Pcp PCP - General Internal Medicine 10/22/19 documented as of this encounter
--- OUTSIDE RECORDS SUMMARY | 2022-03-15 11:23 | XMS_ITS | Encounter Summary ---
:1970 Author Organization [facility] Address [address] [place] [address] Care Team Providers Name Role Phone Elsewhere, Pcp Primary Care Provider Unavailable Encounter Details Date Type Department Care Team Description 10/31/2020 Orders Only Division of Sawyer Nicholson, Medication T herapy Long Rheumatology in R.N. Term Not Anticoagulant [place], [place] [phone] (Primary Dx) 200 [facility] (Work) [place] [phone] Social History Tobacco Use Types Packs/Day Years [...] this encounter Visit Diagnoses Diagnosis Medication Therapy [facility] Not Anticoa gulant - Primary documented in this encounter Additional Health Concerns Assessment Noted Time PHQ-9 Depression Total Score: 15 04/21/2018 1:00 PM CS T documented as of this encounter Care Teams Manufacturing Applications Engineer Relationship Specialty Start Date End Date Elsewhere, Pcp PCP - General Internal Medicine 10/22/19 documented as of this encounter
--- OUTSIDE RECORDS SUMMARY | 2022-03-15 11:23 | XMS_ITS | Encounter Summary ---
:1970 Author Organization [facility] Address [address] [place] [address] Care Team Providers Name Role Phone Elsewhere, Pcp Primary Care Provider Unavailable Reason for Referral Outpatient (Routine) - Closed Specialty Diagnoses / Referred By Referred To Cont act Procedures Contact Gastroenterology and Julián Edouard Rocheste [facility] Hepatology Alex [address] [place] [address] Referral ID Status Reason Start Date Expiration Date Visits Requ ested Visits Authorized [id number] Closed 08/19/2020 08/19/2021 1 1 Outpatient (Routine) - Closed Specialty Diagnoses / Procedures Referred By Contact Refer red To Contact Diagnoses Flatulence Julián Edouard M.D. [facility] Procedures Breath test, Hydrogen, Lactose - Lactase deficiency [address] [place], [place] [address] Referral ID Status Reason Start Date Expiration Date Visits Requ ested Visits Authorized [id number] Closed 08/19/2020 08/19/2021 1 1 Outpatient (Routine) - Closed Specialty Diagnoses / Procedures Referred By Contact Refer red To Contact Diagnoses Flatulence Julián Edouard M.D. [facility] Procedures Breath test, Hydrogen, Glucose - Bacterial overgrowth [address] [place], [place] [address] Referral ID Status Reason Start Date Expiration Date Visits Requ ested Visits Authorized [id number] Closed 08/19/2020 08/19/2021 1 1 Outpatient (Routine) - Closed Specialty Diagnoses / Procedures Referred By Contact Refer red To Contact Diagnoses Flatulence Julián Edouard M.D. [facility] Procedures Breath test, Hydrogen, Fructose - Fructose malabsorption [address] [place], [place] [address] Referral ID Status Reason Start Date Expiration Date Visits Requ ested Visits Authorized [id number] Closed 08/19/2020 08/19/2021 1 1 Outpatient (Routine) - Closed Specialty Diagnoses / Procedures Referred By Contact Refer red To Contact Diagnoses Gastroesophageal Reflux Disease Julián Edouard M.D. [facility] Procedures EGD (EsophagoGastroDuodenoscopy) Restricted [address] [place], [place] [address] Referral ID Status Reason Start Date Expiration Date Visits Requ ested Visits Authorized [id number] Closed 08/19/2020 08/19/2021 1 1 Reason for Visit Reason Comments Diarrhea GERD Outpatient (Routine) - Closed Specialty Diagnoses / Referred By Referred To Cont act Procedures Contact Gastroenterology and Diagnoses Diarrhea Gastroesophageal Reflux Disease Flatulence Velma Munson, [facility] Hepatology STREETCAR OPERATOR, C.N.P. [address] [place] [address] Referral ID Status Reason Start Date Expiration Date Visits V isits Requested Authorized [id number] Closed Specialty 05/27/2020 05/27/2021 1 1 Services Required Encounter Details Date Type Department Care Team Description 08/19/2020 Comprehensive Visit Division of Sb Edouard ; Gastroenterology in Julián Narayan Gastroes ophageal Reflux Disease; [facility] Flatulence [address] [facility] [address] [place] [address] Social History Tobacco Use Types Packs/Day Years [...] ristol type 3 and 7 with occasional [place] type 1. She typically has a bowel [...] Julián Edouard M.D. CT CT Job ID: [id number] documented in this encounter Plan of Treatment [...] Diagnoses Gastroenterology and Outpatient Routine 1 [facility] Hepatology office visit Referral edyta english (clinic) 08/19/2020 unti l 08/20/2023 documented as of this encounter Visit Diagnoses Diagnosis Diarrhea Gastroesophageal Reflux Disease Flatulence documented in this encounter Additional Health Concerns Assessment Noted Time PHQ-9 Depression Total Score: 15 04/21/2018 1:00 PM CS T documented as of this encounter Care Teams Brake Repairer Relationship Specialty Start Date End Date Elsewhere, Pcp PCP - General Internal Medicine 10/22/19 documented as of this encounter
--- OUTSIDE RECORDS SUMMARY | 2022-03-15 11:23 | XMS_ITS | Encounter Summary ---
:1970 Author Organization [facility] Address [address] [place] [address] Care Team Providers Name Role Phone Elsewhere, Pcp Primary Care Provider Unavailable Reason for Referral Medication Prior Authorization - Denied Specialty Diagnoses / Procedures Referred By Contact Refer red To Contact Velma Munson A PRN, C.N.P. [address] [place] [phone] Referral ID Status Reason Start Date Expiration Date Visits Requ ested Visits Authorized [id number] Denied 1 1 Encounter Details Date Type Department Care Team Description 11/05/2020 Clinical Communication Division of Velma Munson Rheumatology in LONG Schwartz, C.N.P. [address] [place] [phone] Social History Tobacco Use Types [...] documented as of this encounter Care Teams Mold Filling Operator Relationship Specialty Start Date End Date Elsewhere, Pcp PCP - General Internal Medicine 10/22/19 documented as of this encounter
--- OUTSIDE RECORDS SUMMARY | 2022-03-15 11:23 | XMS_ITS | Encounter Summary ---
:1970 Author Organization [facility] Address [address] [place] [address] Care Team Providers Name Role Phone Elsewhere, Pcp Primary Care Provider Unavailable Reason for Referral Outpatient (Routine) - Closed Specialty Diagnoses / Procedures Referred By Contact Refer red To Contact Rheumatology Velma Munson APRN, [facility] C.N.P. [address] [place] [phone] Referral ID Status Reason Start Date Expiration Date Visits Requ ested Visits Authorized [id number] Closed 10/02/2020 10/02/2021 1 1 Scheduling Instructions 9am slot Specialty Diagnoses / Procedures Referred By Contact Refer red To Contact Velma Munson A PRN, C.N.P. [address] [phone] Referral ID Status Reason Start Date Expiration Date Visits Requ ested Visits Authorized Reason for Visit Reason Comments Medication Question Encounter Details Date Type Department Care Team Description 10/01/2020 Clinical Division of Velma Munson Medication Communication Rheumatology césar Schwartz APRN, C.N.P. [address] [place] [phone] Social History Tobacco Use Types Packs/Day [...] Encounter - Sarah Stewart R.N. - 10/02/2020 10:00 AM CDT SUBJECTIVE CHIEF [...] references were used: provider Velma Munson APRN, SALES AND OPERATIONS TRAINEE. Telephone Encounter - Velma Munson APRN, C.N.P. [...] Patient portal Y/N/Offered Information:yes Preferred response (portal/phone): [phone] documented in this encounter Plan of Treatment [...] documented as of this encounter Care Teams Paediatric Physiotherapist Relationship Specialty Start Date End Date Elsewhere, Pcp PCP - General Internal Medicine 10/22/19 documented as of this encounter
--- OUTSIDE RECORDS SUMMARY | 2022-03-15 11:23 | XMS_ITS | Encounter Summary ---
:1970 Author Organization [facility] Address [address] [place] [address] Care Team Providers Name Role Phone Elsewhere, Pcp Primary Care Provider Unavailable Encounter Details Date Type Department Care Team Description 09/16/2020 Clinical Communication Division of Silke Gastroenterology in Julián Narayan M.D. [place], [place] [address] [facility] [address] [place] [phone] Social History Tobacco Use Types Packs/Day Years [...] as of this encounter Care Teams Parts Sales Counterperson Relationship Specialty Start Date End Date Elsewhere, Pcp PCP - General Internal Medicine 10/22/19 documented as of this encounter
--- OUTSIDE RECORDS SUMMARY | 2022-03-15 11:23 | XMS_ITS | Encounter Summary ---
:1970 Author Organization [facility] Address [address] [place] [address] Care Team Providers Name Role Phone Elsewhere, Pcp Primary Care Provider Unavailable Reason for Referral Outpatient (Routine) - Closed Specialty Diagnoses / Procedures Referred By Contact Refer red To Contact Diagnoses Flatulence Julián Edouard M.D. [facility] Procedures Breath test, Hydrogen, Fructose - Fructose malabsorption [address] [place] [address] Referral ID Status Reason Start Date Expiration Date Visits Requ ested Visits Authorized [id number] Closed 08/19/2020 08/19/2021 1 1 Reason for Visit Outpatient (Routine) - Closed Specialty Diagnoses / Procedures Referred By Contact Refer red To Contact Diagnoses Juanulence Julián Edouard M.D. [facility] Procedures Breath test, Hydrogen, Fructose - Fructose malabsorption [address] [place] [address] Referral ID Status Reason Start Date Expiration Date Visits Requ ested Visits Authorized [id number] Closed 08/19/2020 08/19/2021 1 1 Encounter Details Date Type Department Care Team Description 09/26/2020 Hospital Encounter Division of Gastroenterology Julián Freeman in [facility] kristin Narayan M.D. [address] [facility] [address] [place] [address] [place], [place] [phone] Social History Tobacco Use Types Packs/Day Years [...] Hydrogen Breath Test (09/26/2020 1:36 PM CDT) [facility] Method Time Signature Hydrogen Fructose 09/26/2020 [...] base line). ??The patient is a methane senior producer (> 1 PPM methane at baseline). [...] such as sever e constipation. Alejo Butcher ([id number]) ?? ----PREVIOUSLY REPORTED ---- Negative breath test for fructose malabsorption (less than or equal to 19 PPM rise in breath hydrogen compared to baseline). ??The patient is a methane senior producer (> 1 PPM methane at baseline). [...] the test) or other causes. Alejo Butcher ([id number]) ?(Reported 2020 15:45) Specimen Anatomical Collection Method Collection Time Receive d Time (Source) Location / / Volume Laterality Breath 09/26/2020 1:36 PM 1:36 CDT PM CDT Julián Edouard M.D. LAB BODY FLUIDS AND STOOLS O DEMETRIOERABLES Performing Organization Address City/State/ZIP Code Phon e Number [facility] - [address] [place], [place] [address] [place] [address] [facility] [address] documented in this encounter Visit Diagnoses Diagnosis Flatulence documented in this encounter Additional Health Concerns Infection Onset Date Last Indicated Resolved Time COVID19 Pending 09/19/2020 09/26/2020 09/27/2020 5:53 AM CDT Assessment Noted Time PHQ-9 Depression Total Score: 15 04/21/2018 1:00 PM CS T documented as of this encounter Care Teams Hotel Services Sales Representative Relationship Specialty Start Date End Date Elsewhere, Pcp PCP - General Internal Medicine 10/22/19 documented as of this encounter
--- OUTSIDE RECORDS SUMMARY | 2022-03-15 11:23 | XMS_ITS | Encounter Summary ---
:1970 Author Organization [facility] Address [address] [place] [address] Care Team Providers Name Role Phone Elsewhere, Pcp Primary Care Provider Unavailable Encounter Details Date Type Department Care Team Description 09/24/2020 Hospital Encounter Department of Velam Munson ation Therapy Laboratory Medicine L, DRIVER MEDIC, C.N .P. Prison Not and Pathology, [address] [place] [address] in [facility] [address] [place] [phone] [place] [address] (Work) [place], [place] [phone] (Fax) [phone] Social History Tobacco Use Types Packs/Day Years [...] Th erapy Results for this PM CDT Seal Skinner Not procedure are in Anticoagulant the results section. ASPARTATE Routine 09/24/2020 1:57 Medication Therapy Result s for this AMINOTRANSFERASE (AST), PM CDT Seal Skinner Not pro cedure are in S/P Anticoagulant the results section. CREATININE WITH EGFR, Routine 09/24/2020 1:57 Medication Thera py Results for this S/P PM CDT Prison Not procedure are in Anticoagulant the results section. documented in this encounter Results Creatinine with Estimated GFR (09/24/2020 1:57 PM CDT) P athologist Signature Creatinine 0.81 0.59 - 09/24/2020 DTL 1.04 mg/dL 3:07 PM CDT eGFR-Non 86 >=60 09/24/2020 DTL Black/ mL/min/BSA 3:07 PM CDT Cypriot Comment: ----ADDITIONAL INFORMATION---- Estimated [...] Karlene.N.P. LAB BLOOD ADD-ON Performing Organization Address City/[facility] Phon e Number [facility] - [address] AST (Aspartate Aminotransferase) (09/24/2020 1:57 PM CDT) [facility] Method Time Signature Aspartate 17 8 - 43 09/24/2020 DTL Aminotransferase U/L 3:07 PM CDT (AST), S Specimen Anatomical Collection Method Collection Time Receive d Time (Source) Location / / Volume Laterality Blood (Blood, 09/24/2020 1:57 PM 09/25/19 21 2:21 Venous) CDT PM CDT Velma Munson APRN, C.N.P. LAB BLOOD ADD-ON Performing Organization Address City/State/[facility] Phon e Number [facility] - [address] [place] [address] [place] [address] (ABNORMAL) CBC with Differential, Blood (09/24/2020 1:57 PM CDT) [facility] Method Time Signature Hemoglobin 14.6 11.6 - [...] Organization Address City/State/ZIP Code Phon e Number [facility] - [address] [place], [place] [address] [facility] [place] [address] [facility] [address] [facility] documented in this encounter Visit Diagnoses Diagnosis Medication Therapy Seal Skinner Not Anticoa gulant documented in this encounter Additional Health Concerns Infection Onset Date Last Indicated Resolved Time COVID19 Pending 09/19/2020 09/26/2020 09/27/2020 5:53 AM CDT Assessment Noted Time PHQ-9 Depression Total Score: 15 04/21/2018 1:00 PM CS T documented as of this encounter Care Teams Bobbin Cleaning Machine Operator Relationship Specialty Start Date End Date Elsewhere, Pcp PCP - General Internal Medicine 10/22/19 documented as of this encounter
--- OUTSIDE RECORDS SUMMARY | 2022-03-15 11:23 | XMS_ITS | Encounter Summary ---
:1970 Author Organization [facility] Address [address] [place] [address] Care Team Providers Name Role Phone Elsewhere, Pcp Primary Care Provider Unavailable Reason for Visit Reason Comments Lab Monitoring Encounter Details Date Type Department Care Team Description 08/20/2020 Documentation Division of Rheumatology in Sarah Stewart, Lab Monitoring [place], [place] R.N. [address] [facility] [address] [place] [address] [place], [place] [phone] Social History Tobacco Use Types Packs/Day Years [...] 09/24/2020 DTL Black/ mL/min/BSA 3:07 PM CDT Syrian Comment: ----ADDITIONAL INFORMATION---- Estimated GFR calculated using [...] C.N.P. LAB BLOOD ADD-ON Performing Organization Address City/[facility] Phon e Number [facility] - [address] [place] [address] AST (Aspartate Aminotransferase) (09/24/2020 1:57 PM CDT) [facility] Method Time Signature Aspartate 17 8 - 43 09/24/2020 DTL Aminotransferase U/L 3:07 PM CDT (AST), S Specimen Anatomical Collection Method Collection Time Receive d Time (Source) Location / / Volume Laterality Blood (Blood, 09/24/2020 1:57 PM 09/25/19 2:21 Venous) CDT PM CDT Velma Munson APRN, Karlene.N.P. LAB BLOOD ADD-ON Performing Organization Address [facility] Phon e Number [facility] - [address] [place] [address] [place] [address] (ABNORMAL) CBC with Differential, Blood (09/24/2020 1:57 PM CDT) [facility] Method Time Signature Hemoglobin 14.6 [...] City/State/ZIP Code Phon e Number [facility] - [address] [place], [place] [address] [facility] [place] [place] [address] Laboratories-[facility] [address] documented in this encounter Visit Diagnoses Diagnosis Medication Therapy Billet Recorder Not Anticoa gulant - Primary documented in this encounter Additional Health Concerns Assessment Noted Time PHQ-9 Depression Total Score: 15 04/21/2018 1:00 PM CS T documented as of this encounter Care Teams Manager Rfid Relationship Specialty Start Date End Date Elsewhere, Pcp PCP - General Internal Medicine 10/22/19 documented as of this encounter
--- OUTSIDE RECORDS SUMMARY | 2022-03-15 11:23 | XMS_ITS | Encounter Summary ---
:1970 Author Organization [facility] Address [address] [place] [address] Care Team Providers Name Role Phone Elsewhere, Pcp Primary Care Provider Unavailable Reason for Referral Outpatient (Routine) - Closed Specialty Diagnoses / Procedures Referred By Contact Refer red To Contact Diagnoses Diarrhea Persistent Unexplained Julián Edouard M.D. [facility] Procedures Colonoscopy [address] [place] [address] Referral ID Status Reason Start Date Expiration Date Visits Requ ested Visits Authorized [id number] Closed 10/07/2020 10/07/2021 1 1 Encounter Details Date Type Department Care Team Description 10/07/2020 Orders Only Division of Sb Edouard tent Gastroenterology in Julián Narayan M.D. Unexplained (Primary [place], [place] [address] [facility] Dx) [address] [place] [address] [phone] Social History Tobacco Use Types Packs/Day Years [...] 11/16/2021 organizations such as orthodox groups, unions, fraMeshify or athletic groups, or school groups? How [...] documented as of this encounter Care Teams Viticulture Teacher Relationship Specialty Start Date End Date Elsewhere, Pcp PCP - General Internal Medicine 10/22/19 documented as of this encounter
--- OUTSIDE RECORDS SUMMARY | 2022-03-15 11:24 | XMS_ITS | Encounter Summary ---
:1970 Author Organization [facility] Address [address] [place] [address] Care Team Providers Name Role Phone Elsewhere, Pcp Primary Care Provider Unavailable Encounter Details Date Type Department Care Team Description 05/28/2020 Clinical Communication Division of Velma Munson Rheumatology in , ACID DIPPER, C.N.P. [place], [place] [address] [facility] [address] [place] [phone] Social History Tobacco Use Types Packs/Day Years [...] documented as of this encounter Care Teams Stitcher Around Relationship Specialty Start Date End Date Elsewhere, Pcp PCP - General Internal Medicine 10/22/19 documented as of this encounter
--- OUTSIDE RECORDS SUMMARY | 2022-03-15 11:24 | XMS_ITS | Encounter Summary ---
:1970 Author Organization [facility] Address [address] [place] [address] Care Team Providers Name Role Phone Elsewhere, Pcp Primary Care Provider Unavailable Reason for Visit Reason Comments COVID Inquiry Encounter Details Date Type Department Care Team Description 05/12/2020 Clinical Communication Division of Velma Munson VIGris Inquiry Rheumatology in L, GLASS SAGGER, C.N.P. [place], [place] [address] [facility] [address] [place] [phone] [phone] Social History Tobacco Use Types Packs/Day Years [...] documented as of this encounter Care Teams Improvement Director Relationship Specialty Start Date End Date Elsewhere, Pcp PCP - General Internal Medicine 10/22/19 documented as of this encounter
--- OUTSIDE RECORDS SUMMARY | 2022-03-15 11:24 | XMS_ITS | Encounter Summary ---
:1970 Author Organization [facility] Address [address] [place] [address] Care Team Providers Name Role Phone Elsewhere, Pcp Primary Care Provider Unavailable Reason for Visit Reason Comments Med Refill Encounter Details Date Type Department Care Team Description 02/13/2020 Refill Division of Rheumatology in Smita Munson sa, APRN, Med Refill [place], [place] C.N.P. [address] [facility] [address] [place] [address] [place] [address] [phone] (Wo rk) Social History Tobacco Use Types [...] documented as of this encounter Care Teams Operator Engineer Relationship Specialty Start Date End Date Elsewhere, Pcp PCP - General Internal Medicine 10/22/19 documented as of this encounter
--- OUTSIDE RECORDS SUMMARY | 2022-03-15 11:24 | XMS_ITS | Encounter Summary ---
:1970 Author Organization [facility] Address [address] [place] [address] Care Team Providers Name Role Phone Elsewhere, Pcp Primary Care Provider Unavailable Reason for Referral Outpatient (Routine) - Closed Specialty Diagnoses / Procedures Referred By Contact Refer red To Contact Diagnoses Bursitis Trochanteric Right Elodia Smith M.D. [facility] Procedures Large Joint Injection: R greater troch bursa 200 [place], [place] [address] Referral ID Status Reason Start Date Expiration Date Visits Requ ested Visits Authorized [id number] Closed 02/01/2020 01/31/2021 1 1 Reason for Visit Outpatient (Routine) - Closed Specialty Diagnoses / Procedures Referred By Contact Refer red To Contact Diagnoses Arthritis Inflammatory (HCC) Bursitis Trochanteric Right Velma Munson APRN, [facility] Procedures RHU Non-Guided Aspiration/Injection - Large Joint C.N.P. 200 [place], [place] [address] Referral ID Status Reason Start Date Expiration Date Visits Requ ested Visits Authorized [id number] Closed 01/10/2020 01/09/2021 1 1 Encounter Details Date Type Department Care Team Description 02/01/2020 Procedure visit Division of Velma Munson APRN, C.N.P. 200 [place] [phone] Arthritis Inflammatory (HCC); Rheumatology in Patricia Stone M.D. [address] [place] [phone] Bursitis Trochanteric Right [place], [place] [address] [place] [phone] Social History Tobacco Use Types Packs/Day Years [...] N - LARGE JOINT Bursitis Trochanteric Right AR ARTHCS ASP/INJ Routine 02/01/2020 1:40 PM Bursitis Trochant ada Results for this MJR JT WO US CDT Right procedure are i n the results section. documented in this encounter Results AR ARTHCS ASP/INJ MJR JT WO US (02/01/2020 [...] of this encounter Care Teams Human Resources Manager Manufacturing Relationship Specialty Start Date End Date Elsewhere, Pcp PCP - General Internal Medicine 10/22/19 documented as of this encounter
--- OUTSIDE RECORDS SUMMARY | 2022-03-15 11:24 | XMS_ITS | Encounter Summary ---
:1970 Author Organization [facility] Address [address] [place] [address] Care Team Providers Name Role Phone Elsewhere, Pcp Primary Care Provider Unavailable Reason for Visit Reason Comments Intake Assessment Encounter Details Date Type Department Care Team Description 05/26/2020 Clinical Division of Velma Munson Intake Stanley hawkins Communication Rheumatology in L, STRAIGHTENING MACHINE FEEDER, C.N.P. [place], [place] [address] [facility] 200 [place] [address] [phone] Social History Tobacco Use Types Packs/Day Years [...] documented as of this encounter Care Teams Online User Experience Strategist Relationship Specialty Start Date End Date Elsewhere, Pcp PCP - General Internal Medicine 10/22/19 documented as of this encounter
--- OUTSIDE RECORDS SUMMARY | 2022-03-15 11:24 | XMS_ITS | Encounter Summary ---
:1970 Author Organization [facility] Address [address] [place] [address] Care Team Providers Name Role Phone Elsewhere, Pcp Primary Care Provider Unavailable Reason for Visit Reason Onset Date Comments Outpatient COVID-19 Testing 02/19/2020 Error 02/23/2020 Encounter Details Date Type Department Care Team Description 02/19/2020 External Outreach Urgent Care in Kia [place], Infec tironan Upper Respiratory (Primary Dx); [place], [place] LONG, C.N.P. ERRONEOUS ENCOUNTER--DISREGARD [address] [place] [address] [place], [place] [phone] [address] Social History Tobacco Use Types Packs/Day [...] to pay for the very basics like [employer] hat hard 11/16/2021 food, housing, medical care, [...] documented as of this encounter Care Teams Oil Treater Relationship Specialty Start Date End Date Elsewhere, Pcp PCP - General Internal Medicine 10/22/19 documented as of this encounter
--- OUTSIDE RECORDS SUMMARY | 2022-03-15 11:24 | XMS_ITS | Encounter Summary ---
:1970 Author Organization [facility] Address [address] [place] [address] Care Team Providers Name Role Phone Elsewhere, Pcp Primary Care Provider Unavailable Reason for Visit Reason Comments Ear pain / Mouth sores Encounter Details Date Type Department Care Team Description 08/11/2020 Clinical Division of Velma Munson Ear pain / M outh Communication Rheumatology in L, LONG, CLennoxNLennoxPLennox [place], [place] [address] [facility] 200 [place] [address] [phone] Social History Tobacco Use Types Packs/Day Years [...] eye. She was told to contact her Hydrology Professor about the oral sores, her ears were [...] and advised she follow up with her oracle iam consultant. Patient also stated a blood vessel in her eye busted and it hurts to close her eye. The local doctor did run labs and the liver panel is still pending. Follow-up requested: yes Preferred response (portal/phone): [phone] documented in this encounter Plan of Treatment Not on filedocumented as of this encounter Visit Diagnoses Not on filedocumented in this encounter Additional Health Concerns Assessment Noted Time PHQ-9 Depression Total Score: 15 04/21/2018 1:00 PM CS T documented as of this encounter Care Teams Orthopedic Shoe Fitter Relationship Specialty Start Date End Date Elsewhere, Pcp PCP - General Internal Medicine 10/22/19 documented as of this encounter
--- OUTSIDE RECORDS SUMMARY | 2022-03-15 11:24 | XMS_ITS | Encounter Summary ---
:1970 Author Organization [facility] Address [address] [place] [address] Care Team Providers Name Role Phone Elsewhere, Pcp Primary Care Provider Unavailable Encounter Details Date Type Department Care Team Description 05/15/2020 Immunization Department of [facility] Alfie Kearns For COVID-19 Medicine, Alfredo Jain M.D. Vaccine Immunization [facility], in [address] [place] [phone] [place] [address] [place], [place] (Work) [phone] Social History Tobacco Use [...] documented as of this encounter Care Teams Watch Caser Relationship Specialty Start Date End Date Elsewhere, Pcp PCP - General Internal Medicine 10/22/19 documented as of this encounter
--- OUTSIDE RECORDS SUMMARY | 2022-03-15 11:24 | XMS_ITS | Encounter Summary ---
:1970 Author Organization [facility] Address [address] [place] [address] Care Team Providers Name Role Phone Elsewhere, Pcp Primary Care Provider Unavailable Encounter Details Date Type Department Care Team Description 05/21/2020 Hospital Encounter Department of Velma Munson Laboratory Medicine L, HAT COPYIST, C.N .P. Inflammatory (HCC) in [place] [address] [facility] [phone] [place], [place] (Work) [phone] Social History Tobacco Use [...] 7:43 Arthritis Res ults for this AM DRILL PRESS OPERATOR HELPER Inflammatory (HCC) procedure are in the results section. CBC WITH DIFFERENTIAL, B Routine 05/21/2020 7:43 Arthritis Results for this AM DRILL PRESS OPERATOR HELPER Inflammatory (HCC) procedure are in the results section. C-REACTIVE PROTEIN Routine 05/21/2020 7:43 Arthritis Result s for this (CRP), S/P AM DRILL PRESS OPERATOR HELPER Inflammatory (HCC) procedure are in the results section. ASPARTATE Routine 05/21/2020 7:43 Arthritis Results for this AMINOTRANSFERASE (AST), AM DRILL PRESS OPERATOR HELPER Inflammatory (HCC ) procedure are in S/P the results section. CREATININE WITH EGFR, Routine 05/21/2020 7:43 Arthritis Res ults for this S/P AM DRILL PRESS OPERATOR HELPER Inflammatory (HCC) procedure are in the results section. documented in this encounter Results AST (Aspartate Aminotransferase) (05/21/2020 7:43 AM DRILL PRESS OPERATOR HELPER) Patholo gist Method Time Signature Aspartate 22 8 - 43 05/21/2020 CNFL Aminotransferase U/L 8:04 AM DRILL PRESS OPERATOR HELPER (AST), P Specimen Anatomical Collection Method Collection Time Receive d Time (Source) Location / / Volume Laterality Blood (Blood, 05/21/2020 7:43 AM 05/21/19 7:44 Venous) DRILL PRESS OPERATOR HELPER AM DRILL PRESS OPERATOR HELPER Velma Munson APRN, C.N.P. LAB BLOOD ADD-ON Performing Organization Address City/State/ZIP Code Phon e Number [address] [address] [place] [address] Creatinine with Estimated GFR (05/21/2020 7:43 AM DRILL PRESS OPERATOR HELPER) athologist Signature Creatinine 0.78 0.59 - 05/21/2020 CNFL 1.04 mg/dL 8:04 AM DRILL PRESS OPERATOR HELPER eGFR-Black/Afric >90 >=60 05/21/2020 CNFL an Moldovan mL/min/BSA 8:04 AM DRILL PRESS OPERATOR HELPER Comment: ----ADDITIONAL INFORMATION---- Estimated GFR calculated using the 2009 CKD_EPI creatinine equation. eGFR Non-Black/ >90 >=60 mL/min/BSA 05/21/2020 8:04 AM DRILL PRESS OPERATOR HELPER CNFL Comment: ----ADDITIONAL INFORMATION---- Estimated GFR calculated using the 2009 CKD_EPI creatinine equation. Specimen Anatomical Collection Method Collection Time Receive d Time (Source) Location / / Volume Laterality Blood (Blood, 05/21/2020 7:43 AM 05/21/19 7:44 Venous) DRILL PRESS OPERATOR HELPER AM DRILL PRESS OPERATOR HELPER Velma Munson APRN, C.N.P. LAB BLOOD ADD-ON Performing Organization Address City/[facility]/ZIP Code Phon e Number [address] [address] [place] [address] CRP (C-Reactive Protein) (05/21/2020 7:43 AM DRILL PRESS OPERATOR HELPER) athologist Signature C-Reactive 3.3 <=8.0 mg/L 05/21/2020 CNFL Protein (CRP), 8:04 AM DRILL PRESS OPERATOR HELPER P Specimen Anatomical Collection Method Collection Time Receive d Time (Source) Location / / Volume Laterality Blood (Blood, 05/21/2020 7:43 AM 05/21/19 7:44 Venous) DRILL PRESS OPERATOR HELPER AM DRILL PRESS OPERATOR HELPER Velma Munson APRN, C.N.P. LAB BLOOD ADD-ON Performing Organization Address City/[facility]/ZIP Code Phon e Number [address] [place] [address] [place] [address] System [address] Sedimentation Rate (05/21/2020 7:43 AM DRILL PRESS OPERATOR HELPER) Analysis Performed At Patho logist Time Signature Sedimentation 10 0 - 29 05/21/2020 CNFL Rate, B mm/1 h 8:32 AM DRILL PRESS OPERATOR HELPER Specimen Anatomical Collection Method Collection Time Receive d Time (Source) Location / / Volume Laterality Blood (Blood, 05/21/2020 7:43 AM 05/21/19 7:44 Venous) DRILL PRESS OPERATOR HELPER AM DRILL PRESS OPERATOR HELPER Velma Munson APRN, C.N.P. LAB BLOOD ADD-ON Performing Organization Address City/State/ZIP Code Phon e Number [facility]- [address] [place] [address] [place] [address] System [address] CBC with Differential, Blood (05/21/2020 7:43 AM DRILL PRESS OPERATOR HELPER) P athologist Signature Hemoglobin 14.3 11.6 - 05/21/2020 CNFL 15.0 g/dL 7:51 AM DRILL PRESS OPERATOR HELPER Hematocrit 43.6 35.5 - 05/21/2020 CNFL 44.9 % 7:51 AM DRILL PRESS OPERATOR HELPER Erythrocytes 5.09 3.92 - 05/21/2020 CNFL 5.13 7:51 AM DRILL PRESS OPERATOR HELPER x10(12)/L MCV 85.7 78.2 - 05/21/2020 CNFL 97.9 fL 7:51 AM DRILL PRESS OPERATOR HELPER RBC Distrib Width 13.4 12.2 - 05/21/2020 CNFL 16.1 % 7:51 AM DRILL PRESS OPERATOR HELPER Platelet Count 275 157 - 371 05/21/2020 CNFL x10(9)/L 7:51 AM DRILL PRESS OPERATOR HELPER Leukocytes 8.2 3.4 - 9.6 05/21/2020 CNFL x10(9)/L 7:51 AM DRILL PRESS OPERATOR HELPER Neutrophils 5.79 1.56 - 05/21/2020 CNFL 6.45 7:51 AM DRILL PRESS OPERATOR HELPER x10(9)/L Lymphocytes 1.81 0.95 - 05/21/2020 CNFL 3.07 7:51 AM DRILL PRESS OPERATOR HELPER x10(9)/L Monocytes 0.48 0.26 - 05/21/2020 CNFL 0.81 7:51 AM DRILL PRESS OPERATOR HELPER x10(9)/L Eosinophils 0.10 0.03 - 05/21/2020 CNFL 0.48 7:51 AM DRILL PRESS OPERATOR HELPER x10(9)/L Basophils 0.04 0.01 - 05/21/2020 CNFL 0.08 7:51 AM DRILL PRESS OPERATOR HELPER x10(9)/L Specimen Anatomical Collection Method Collection Time Receive d Time (Source) Location / / Volume Laterality Blood (Blood, 05/21/2020 7:43 AM 05/21/19 7:44 Venous) DRILL PRESS OPERATOR HELPER AM DRILL PRESS OPERATOR HELPER Velma Munson APRN C.N.P. LAB BLOOD ADD-ON Performing Organization Address City/State/[facility] Phon e Number [address] [address] [place] [address] documented in this encounter Visit Diagnoses Diagnosis Arthritis Inflammatory (HCC) documented in this encounter Additional Health Concerns Assessment Noted Time PHQ-9 Depression Total Score: 15 04/21/2018 1:00 PM CS T documented as of this encounter Care Teams Highway Commissioner Relationship Specialty Start Date End Date Elsewhere, Pcp PCP - General Internal Medicine 10/22/19 documented as of this encounter
--- OUTSIDE RECORDS SUMMARY | 2022-03-15 11:24 | XMS_ITS | Encounter Summary ---
:1970 Author Organization [facility] Address [address] [place] [address] Care Team Providers Name Role Phone Elsewhere, Pcp Primary Care Provider Unavailable Reason for Visit Reason Comments Lab Monitoring Encounter Details Date Type Department Care Team Description 04/24/2020 Clinical Communication Division of Velma Munson Monitoring Rheumatology in L, INSPECTOR CLIP ON SUNGLASSES, C.N.P. [place], [place] [address] [facility] [address] [place] [phone] Social History Tobacco Use Types Packs/Day Years [...] to continue with current plan of care. INIZER documented in this encounter Plan of Treatment [...] Volume Blood (Blood, Venous) Resulting Agency Comment [facility]. Velma Munson APRN, C.N.P. LAB BLOOD ADD-ON [...] Volume Blood (Blood, Venous) Resulting Agency Comment [facility]. Velma Munson APRN, C.N.P. LAB BLOOD ADD-ON documented in this encounter Visit Diagnoses Not on filedocumented in this encounter Additional Health Concerns Assessment Noted Time PHQ-9 Depression Total Score: 15 04/21/2018 1:00 PM CS T documented as of this encounter Care Teams Locomotive Boilermaker Relationship Specialty Start Date End Date Elsewhere, Pcp PCP - General Internal Medicine 10/22/19 documented as of this encounter
--- OUTSIDE RECORDS SUMMARY | 2022-03-15 11:24 | XMS_ITS | Encounter Summary ---
:1970 [address] [facility] Address [address] [place] [address] Care Team Providers Name Role Phone Elsewhere, Pcp Primary Care Provider Unavailable Encounter Details Date Type Department Care Team Description 08/18/2020 Hospital Encounter Department of Velma Munson High Risk Medication Laboratory Medicine LONG Schwartz C.N .PLennox in [place], [address] [place] [address] [place] [address] [place], [place] [phone] [address] (Work) [phone] Social History Tobacco Use Types Packs/Day Years [...] CDT eGFR-Black/Afric >90 >=60 08/18/2020 [facility] an Indonesian mL/min/BSA 4:00 PM CDT Comment: ----ADDITIONAL INFORMATION---- [...] Organization Address City/State/ZIP Code Phon e Number [facility]- [address] [place], [place] [address] [facility] [place] [address] System in [place] [address] [place] AST (Aspartate Aminotransferase) (08/18/2020 3:39 PM CDT) [facility] [employer] Method Time Signature Aspartate 19 8 - 43 08/18/2020 [facility] Aminotransferase U/L 4:00 PM CDT (AST), P Specimen Anatomical Collection Method Collection Time Receive d Time (Source) Location / / Volume Laterality Blood (Blood, 08/18/2020 3:39 PM 08/19/19 3:40 Venous) CDT PM CDT Velma Munson APRN, C.N.P. LAB BLOOD ADD-ON Performing Organization Address City/State/ZIP Code Phon e Number [facility]- [address] [place], [place] [address] [facility] [place] [address] System in [place] [address] [place] (ABNORMAL) CBC with Differential, Blood (08/18/2020 3:38 PM CDT) [facility] [employer] Method Time Signature Hemoglobin 14.7 11.6 - [...] Organization Address City/State/ZIP Code Phon e Number [facility]- [address] [place], [place] [address] [facility] [place] [address] System in [place] [address] documented in this encounter Visit Diagnoses Diagnosis High Risk Medication documented in this encounter Additional Health Concerns Assessment Noted Time PHQ-9 Depression Total Score: 15 04/21/2018 1:00 PM CS T documented as of this encounter Care Teams Face Boss Relationship Specialty Start Date End Date Elsewhere, Pcp PCP - General Internal Medicine 10/22/19 documented as of this encounter
--- OUTSIDE RECORDS SUMMARY | 2022-03-15 11:24 | XMS_ITS | Encounter Summary ---
:1970 Author Organization [facility] Address [address] [place] [address] Care Team Providers Name Role Phone Elsewhere, Pcp Primary Care Provider Unavailable Reason for Referral Specialty Diagnoses / Procedures Referred By Contact Refer red To Contact [address] [phone] Referral ID Status Reason Start Date Expiration Date Visits Requ ested Visits Authorized SCIENCE PROFESSOR Encounter Details Date Type Department Care Team Description 04/24/2020 Immunization Department of Evangelista Galeano For COVID-19 Medicine, Alfredo Soler M.D. Vaccine Immunization [facility], in [address] chu (Primary Dx) [address] [phone] [place], [place] (Work) [address] [phone] Social History Tobacco Use Types Packs/Day Years [...] documented as of this encounter Care Teams Computing Tutor Relationship Specialty Start Date End Date Elsewhere, Pcp PCP - General Internal Medicine 10/22/19 documented as of this encounter
--- OUTSIDE RECORDS SUMMARY | 2022-03-15 11:24 | XMS_ITS | Encounter Summary ---
:1970 Author Organization [facility] Address [address] [place] [address] Care Team Providers Name Role Phone Elsewhere, Pcp Primary Care Provider Unavailable Reason for Visit Reason Comments P3 Symptoms exhaustion Encounter Details Date Type Department Care Team Description 06/02/2020 Clinical Division of Velma Munson P3 Symptoms Communication Rheumatology in L, BUSINESS ANALYSIS PROFESSIONAL, C.N.P. (exhaustion) [place], [place] [address] [facility] [address] [place] [phone] Social History Tobacco Use Types Packs/Day Years [...] Munson APRN, C.N.P. - 06/03/2020 4:40 PM BASKET HAND WEAVER I see she was able to get a GI appointment for 08/19/20. She will need to continue to check to see ifthere are cancellations. Regarding the fatigue she has not had her thyroid checked. I would like her to see her PCP for work up other causes. ET HAND WEAVER Telephone Encounter - Tamica Kramer - 06/02/2020 [...] Patient portal Y/N/Offered Information: Preferred response (portal/phone): [phone] ET HAND WEAVER documented in this encounter Plan of Treatment Not on filedocumented as of this encounter Visit Diagnoses Not on filedocumented in this encounter Additional Health Concerns Assessment Noted Time PHQ-9 Depression Total Score: 15 04/21/2018 1:00 PM CS T documented as of this encounter Care Teams Wool Cleaner Relationship Specialty Start Date End Date Elsewhere, Pcp PCP - General Internal Medicine 10/22/19 documented as of this encounter
--- OUTSIDE RECORDS SUMMARY | 2022-03-15 11:24 | XMS_ITS | Encounter Summary ---
:1970 Author Organization [facility] Address [address] [place] [address] Care Team Providers Name Role Phone Elsewhere, Pcp Primary Care Provider Unavailable Encounter Details Date Type Department Care Team Description 05/27/2020 Clinical Communication Division of Tamir Butcher Gastroenterology césar Narayan M.D. [place], [place] [address] [place] [address] [place] [phone] Social History Tobacco Use Types Packs/Day Years [...] documented as of this encounter Care Teams Music Industry Intern Relationship Specialty Start Date End Date Elsewhere, Pcp PCP - General Internal Medicine 10/22/19 documented as of this encounter
--- OUTSIDE RECORDS SUMMARY | 2022-03-15 11:24 | XMS_ITS | Encounter Summary ---
:1970 Author Organization [facility] Address [address] [place] [address] Care Team Providers Name Role Phone Elsewhere, Pcp Primary Care Provider Unavailable Reason for Referral Specialty Diagnoses / Procedures Referred By Contact Refer red To Contact Velma Munson A PRN, C.N.P. [address] [phone] Referral ID Status Reason Start Date Expiration Date Visits Requ ested Visits Authorized Reason for Visit Outpatient (Routine) - Closed Specialty Diagnoses / Procedures Referred By Contact Refer red To Contact Rheumatology Velma Munson APRN, [facility] C.[facility] [address] [place] [phone] Referral ID Status Reason Start Date Expiration Date Visits Requ ested Visits Authorized [id number] Closed 05/28/2020 05/28/2021 1 1 Encounter Details Date Type Department Care Team Description 07/17/2020 Office Visit Division of Velma Munson Arthritis In [facility] ([facility]) (Primary Dx); Rheumatology in LONG Schwartz, C.N.P. High Risk Medication [place], [place] 200 [facility] [address] [place] [phone] Social History Tobacco Use Types Packs/Day Years [...] Progress Notes Velma Munson APRN, C.N.P. - 07/17/2020 2:45 PM CDT Images from [...] but on a reevaluation later by a gambling dealer the diagnosis of mixed connective tissue disease [...] with mixed connective tissue disease. 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 She had [...] 0 Patient global assessment (0-100) 12 12 Revenue Coordinator global assessment (0-100) 10 20 ESR (mm/h) 10 13 CRP (mg/L) 3.3 5 Disease Activity Score 28 using ESR ([id number]) 1.78 2.52 Disease Activity Score 28 using CRP (IQX03-JHU) 1.65 2.33 Clinical Disease Activity Index (CDAI) [...] Name Type Priority Associated Diagnoses [facility] - Outpatient Referral Routine Arthritis Expect ed: Education visit Inflammatory ([facility]) 2020 (clinic) (Approximate), Expires: 07/18/2023 documented as of this encounter Results Creatinine with Estimated GFR (08/18/2020 3:39 PM CDT) athologist Signature Creatinine 0.76 0.59 - 08/18/2020 [facility] 1.04 mg/dL 4:00 PM CDT eGFR-Black/Afric >90 >=60 08/18/2020 [facility] an Macedonian mL/min/BSA 4:00 PM CDT Comment: ----ADDITIONAL INFORMATION---- [...] Organization Address City/State/ZIP Code Phon e Number [facility]- [address] [place], [place] [address] [facility] [place] [address] System in [place] AST (Aspartate Aminotransferase) (08/18/2020 3:39 PM CDT) [facility] [employer] Method Time Signature Aspartate 19 8 - 43 08/18/2020 [facility] Aminotransferase U/L 4:00 PM CDT (AST), P Specimen Anatomical Collection Method Collection Time Receive d Time (Source) Location / / Volume Laterality Blood (Blood, 08/18/2020 3:39 PM 08/19/19 3:40 Venous) CDT PM CDT Jorge Polo APRNN.P. LAB BLOOD ADD-ON Performing Organization Address City/[facility] [address]/ZIP Code Phon e Number [facility]- [address] [place], [place] [address] [facility] [place] [address] System in [place] (ABNORMAL) CBC with Differential, Blood (08/18/2020 3:38 PM CDT) [facility] Method Time Signature Hemoglobin 14.7 11.6 - [...] Organization Address City/State/ZIP Code Phon e Number [facility]- [address] [place], [place] [address] [address] [place] [address] System in [place] [address] documented in this encounter Visit Diagnoses Diagnosis Arthritis Inflammatory (HCC) - Primary High Risk Medication documented in this encounter Additional Health Concerns Assessment Noted Time PHQ-9 Depression Total Score: 15 04/21/2018 1:00 PM CS T documented as of this encounter Care Teams Cash Accounting Clerk Relationship Specialty Start Date End Date Elsewhere, Pcp PCP - General Internal Medicine 10/22/19 documented as of this encounter
--- OUTSIDE RECORDS SUMMARY | 2022-03-15 11:24 | XMS_ITS | Encounter Summary ---
:1970 Author Organization [facility] Address [address] [place] [address] Care Team Providers Name Role Phone Elsewhere, Pcp Primary Care Provider Unavailable Reason for Visit Reason Comments Swelling, pain, knees, feet, hands, P1 Encounter Details Date Type Department Care Team Description 07/28/2020 Clinical Division of Velma Munson pa in, Communication Rheumatology in L, GOLF TOURNAMENT CONSULTANT, C.N.P. knees, feet, [place], [place] [address] [facility] hands, P1 [address] [place] [phone] Social History Tobacco Use Types Packs/Day Years [...] to pay for the very basics like [employer] hat hard 11/16/2021 food, housing, medical care, [...] used: nursing clinical judgement Telephone Encounter - Roopa Mindy S - 07/28/2020 9:38 AM CDT Caller/authorization: Patient [...] surgery until then. Her phone number is [phone]. documented in this encounter Plan of Treatment Not on filedocumented as of this encounter Visit Diagnoses Not on filedocumented in this encounter Additional Health Concerns Assessment Noted Time PHQ-9 Depression Total Score: 15 04/21/2018 1:00 PM CS T documented as of this encounter Care Teams Convenience Recycle Center Tech Relationship Specialty Start Date End Date Elsewhere, Pcp PCP - General Internal Medicine 10/22/19 documented as of this encounter
--- OUTSIDE RECORDS SUMMARY | 2022-03-15 11:24 | XMS_ITS | Encounter Summary ---
:1970 Author Organization [facility] Address [address] [place] [address] Care Team Providers Name Role Phone Elsewhere, Pcp Primary Care Provider Unavailable Reason for Visit Reason Comments COVID Nurse Line Encounter Details Date Type Department Care Team Description 02/19/2020 Clinical Communication Division of Suyapa Dawn Nurse Line [facility] Internal R, R.N. [facility] [address] [place] [address] in [place] [phone] [phone] [address] [facility] (Work) [place] [phone] Social History Tobacco Use Types Packs/Day Years [...] request for travel related reasons, sent to [place] located at [address] Testing [...] and water aren't available, use a hand eviction specialist that contains at least 60% alcohol. Avoid [...] since you were tested. Educational Resource: https://www.cdc.gov/coronavirus/2019-ncov/ lhdsoco-pofcwme-ydmf/index.html RECOMMENDATIONS TESTING CRITERIA IS MET: Stay home [...] COVID- 19 test result. Education Resources: https://www.cdc.gov/coronavirus/2019- ncov/mv-eqi-kpb-sick/nyiey-ttvp-mhqm.html SELF CARE FOR ALL PATIENTS: Take breaks [...] The following references were used: [facility] novel coronavirus (COVID- 19) resources CDC web site https://www.cdc.gov/coronavirus/2019-ncov/summary.html Nursing judgement documented in this encounter Plan of Treatment Not on filedocumented as of this encounter Visit Diagnoses Not on filedocumented in this encounter Additional Health Concerns Assessment Noted Time PHQ-9 Depression Total Score: 15 04/21/2018 1:00 PM CS T documented as of this encounter Care Teams Irrigation Engineer Relationship Specialty Start Date End Date Elsewhere, Pcp PCP - General Internal Medicine 10/22/19 documented as of this encounter
--- OUTSIDE RECORDS SUMMARY | 2022-03-15 11:24 | XMS_ITS | Encounter Summary ---
:1970 Author Organization [facility] Address [address] [place] [address] Care Team Providers Name Role Phone Elsewhere, Pcp Primary Care Provider Unavailable Encounter Details Date Type Department Care Team Description 07/17/2020 Education Division of Velma Munson APRN, C.N.P. [address] [place] [phone] Arthritis Inflammatory Rheumatology in [place], RLennoxN. [address] [place] [phone] ([facility]) [place], [place] [address] [place] [phone] Social History Tobacco Use Types Packs/Day Years [...] a diagnosis of inflammatory Arthritis. Velma Munson, MEAT SCRUBBER, CHIEF RADIOLOGIC TECHNOLOGIST requestednursing assistance with medication education. Reviewed education on methotrexate with the patient. Discussed purpose, administration, precautions,risks, side effects, lab monitoring, and when to contact your provider. Subcutaneous administration was demonstrated and patient was able to teach back. All questions were answered. Provider would likepatient enrolled in our Medication monitoring system. [facility] Patient plans to start her Methotrexate this Tuesday07/18/2020. documented in this encounter Plan of Treatment Not on filedocumented as of this encounter Visit Diagnoses Diagnosis Arthritis Inflammatory (HCC) documented in this encounter Additional Health Concerns Assessment Noted Time PHQ-9 Depression Total Score: 15 04/21/2018 1:00 PM CS T documented as of this encounter Care Teams City Auditor Relationship Specialty Start Date End Date Elsewhere, Pcp PCP - General Internal Medicine 10/22/19 documented as of this encounter
--- OUTSIDE RECORDS SUMMARY | 2022-03-15 11:24 | XMS_ITS | Encounter Summary ---
:1970 Author Organization [facility] Address [address] [place] [address] Care Team Providers Name Role Phone Elsewhere, Pcp Primary Care Provider Unavailable Reason for Referral Specialty Diagnoses / Procedures Referred By Contact Refer red To Contact Evangelista Darling M.D. [facility] [address] [place] [phone] Referral ID Status Reason Start Date Expiration Date Visits Requ ested Visits Authorized CUTTER Encounter Details Date Type Department Care Team Description 04/17/2020 Orders Only [facility] Evangelista Darling Jr., M.D. [address] [place], [place] [address]nayely [facility] [address] [place] [phone] (Wo rk) Social History Tobacco [...] as of this encounter Care Teams Mail Messenger Contractor Relationship Specialty Start Date End Date Elsewhere, Pcp PCP - General Internal Medicine 10/22/19 documented as of this encounter
--- OUTSIDE RECORDS SUMMARY | 2022-03-15 11:24 | XMS_ITS | Encounter Summary ---
:[address] [facility] Address [address] [place] [address] Care Team Providers Name Role Phone Elsewhere, Pcp Primary Care Provider Unavailable Reason for Referral Outpatient (Routine) - Closed Specialty Diagnoses / Procedures Referred By Contact Refer red To Contact Rheumatology Velma Munson APRN [facility] C.N.P. [address] [place] [phone] Referral ID Status Reason Start Date Expiration Date Visits Requ ested Visits Authorized [id number] Closed 05/28/2020 05/28/2021 1 1 CIATE PROFESSOR OF THEATRE Outpatient (Routine) - Closed Specialty Diagnoses / Referred By Referred To Cont act Procedures Contact Gastroenterology and Diagnoses Diarrhea Gastroesophageal Reflux Disease Flatulence Velma Munson [facility] Hepatology LONG, C.N.P. [address] [place] [phone] Referral ID Status Reason Start Date Expiration Date Visits V isits Requested Authorized [id number] Closed Specialty 05/27/2020 05/27/2021 1 1 Services Required CIATE PROFESSOR OF THEATRE Reason for Visit Outpatient (Routine) - Closed Specialty Diagnoses / Procedures Referred By Contact Refer red To Contact Rheumatology eVlma Munson APRN [facility] C.N.P. [address] [place] [phone] Referral ID Status Reason Start Date Expiration Date Visits Requ ested Visits Authorized [id number] Closed 01/10/2020 01/09/2021 1 1 Encounter Details Date Type Department Care Team Description 05/27/2020 Office Visit Division of Velma Munson Arthritis In flammatory (HCC) (Primary Dx); Rheumatology in L, OBSTETRICS SCRUB NURSE, C.N.P. Diarrhea; [place], [place] 200 [facility] High Risk Medication; [address] [place], [place] Gastroesophageal Reflux Dise ase; [place] [address] Flatulence; [phone] Xerostomia Social History Tobacco Use Types Packs/Day [...] Comments Blood Pressure 113/75 05/27/2020 2:50 PM ASSOCIATE PROFESSOR OF THEATRE Pulse 115 05/27/2020 2:50 PM ASSOCIATE PROFESSOR OF THEATRE Temperature 37.2 ??C (99 ??F) 05/27/2020 2:50 PM ASSOCIATE PROFESSOR OF THEATRE Respiratory Rate - - Oxygen Saturation - - Inhaled Oxygen Concentration - - Weight 77.6 kg (171 lb 1.2 oz) 05/27/2020 2:50 PM ASSOCIATE PROFESSOR OF THEATRE Height 158.3 cm (5' 2.32) 05/27/2020 2:50 PM ASSOCIATE PROFESSOR OF THEATRE Body Mass Index 30.97 05/27/2020 2:50 PM ASSOCIATE PROFESSOR OF THEATRE documented in this encounter Progress Notes Velma [...] but on a reevaluation later by a strap buckler the diagnosis of mixed connective tissue disease [...] disease. 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 She had herlap band [...] (0-28) 0 Patient global assessment (0-100) 12 [employer] Wafer Breaker global assessment (0-100) 10 ESR (mm/h) 10 CRP (mg/L) 3.3 Disease Activity Score 28 using ESR ([id number]) 1.78 Disease Activity Score 28 using CRP (VXY27-TEE) 1.65 Clinical Disease Activity Index (CDAI) 2.2 [...] that she contact us at that time. CIATE PROFESSOR OF THEATRE documented in this encounter Plan of Treatment Scheduled Referrals Name Type Priority Associated Order Schedule Diagnoses Gastroenterology and Outpatient Routine Diarrhea Expected: Hepatology - General Referral Gastroesophageal gastroenterology consult Reflux Disease (Approximate), (clinic) Flatulence Expires: 05/27/2023 Rheumatology office Outpatient Routine Expected : visit (clinic) Referral 08/26/2020 (Approximate), Expires: 05/28/2023 documented as of this encounter Results AST (Aspartate Aminotransferase) (07/16/2020 12:42 PM CDT) [facility] gist Method Time Signature Aspartate 25 8 [...] [facility]/ZIP Code Phon e Number [facility]- 701 [facility] [place], [place] [address] [place] [address] System in [place] Creatinine with Estimated GFR (07/16/2020 12:42 PM CDT) athologist Signature Creatinine 0.84 0.59 - 07/16/2020 [facility] 1.04 mg/dL 1:33 PM CDT eGFR-Black/Afric >90 >=60 07/16/2020 [facility] an Greek mL/min/BSA 1:33 PM CDT Comment: ----ADDITIONAL INFORMATION---- [...] Organization Address City/State/ZIP Code Phon e Number [facility]- [address] [place], [place] [address] [address] [place] [address] System in [place] [address] [place] [place] CRP (C-Reactive Protein) (07/16/2020 12:42 PM CDT) [...] [facility]/ZIP Code Phon e Number [facility]- [address] [place], [place] [address] [address] [place] [address] System in [place] [address] [place] Sedimentation Rate (07/16/2020 12:42 PM CDT) Analysis Performed At [facility] logist Time Signature Sedimentation 13 0 - 29 07/16/2020 [facility] Rate, B mm/1 h 3:10 PM CDT Specimen Anatomical Collection Method Collection Time Receive d Time (Source) Location / / Volume Laterality Blood (Blood, 07/16/2020 12:42 07/16/2020 1:07 Venous) PM CDT PM CDT Velma Munson APRN, C.N.P. LAB BLOOD ADD-ON Performing Organization Address City/State/ZIP Code Phon e Number [facility]- [address] [place], [place] [address] [address] [place] [address] System in [place] [address] [place] CBC with Differential, Blood (07/16/2020 12:42 PM [...] Organization Address City/State/ZIP Code Phon e Number [facility]- [address] [place], [place] [address] [address] [place] [address] System in [place] [address] documented in this encounter Visit Diagnoses Diagnosis Arthritis Inflammatory (HCC) - Primary Diarrhea High Risk Medication Gastroesophageal Reflux Disease Flatulence Xerostomia documented in this encounter Additional Health Concerns Assessment Noted Time PHQ-9 Depression Total Score: 15 04/21/2018 1:00 PM CS T documented as of this encounter Care Teams Pipe Fitter Supervisor Relationship Specialty Start Date End Date Elsewhere, Pcp PCP - General Internal Medicine 10/22/19 documented as of this encounter
--- OUTSIDE RECORDS SUMMARY | 2022-03-15 11:24 | XMS_ITS | Encounter Summary ---
:1970 Author Organization [facility] Address [address] [place] [address] Care Team Providers Name Role Phone Elsewhere, Pcp Primary Care Provider Unavailable Reason for Visit Reason Comments COVID Inquiry Encounter Details Date Type Department Care Team Description 07/10/2020 Clinical Communication Division of Velma Munson VIGris Inquiry Rheumatology in L, ALTO SINGER, C.N.P. [place], [place] [address] [facility] [address] [place] [phone] Social History Tobacco Use Types Packs/Day Years [...] documented as of this encounter Care Teams Etymology Teacher Relationship Specialty Start Date End Date Elsewhere, Pcp PCP - General Internal Medicine 10/22/19 documented as of this encounter
--- OUTSIDE RECORDS SUMMARY | 2022-03-15 11:24 | XMS_ITS | Encounter Summary ---
:1970 Author Organization [facility] Address [address] [place] [address] Care Team Providers Name Role Phone Elsewhere, Pcp Primary Care Provider Unavailable Encounter Details Date Type Department Care Team Description 07/16/2020 Hospital Encounter Department of Velma Munson Laboratory Medicine L, ROLL GRINDER OPERATOR, C.N .P. Inflammatory (HCC) in [place], [address] [place] [address] 701 [facility] [address] [place], [place] [phone] [address] (Work) [phone] Social History Tobacco Use Types Packs/Day Years [...] AST (Aspartate Aminotransferase) (07/16/2020 12:42 PM CDT) [facility] gist Method Time Signature Aspartate 25 8 - 43 07/16/2020 [facility] Aminotransferase U/L 1:33 PM CDT (AST), P Specimen Anatomical Collection Method Collection Time Receive d Time (Source) Location / / Volume Laterality Blood (Blood, 07/16/2020 12:42 07/16/2020 1:08 Venous) PM CDT PM CDT Velma Munson APRN, C.N.P. LAB BLOOD ADD-ON Performing Organization Address City/State/ZIP Code Phon e Number [facility]- [address] [place] [address] [address] [place] [address] System in [place] [facility] [place] Creatinine with Estimated GFR (07/16/2020 12:42 PM CDT) athologist Signature Creatinine 0.84 0.59 - 07/16/2020 [facility] 1.04 mg/dL 1:33 PM CDT eGFR-Black/Afric >90 >=60 07/16/2020 [facility] an Cambodian mL/min/BSA 1:33 PM CDT Comment: ----ADDITIONAL INFORMATION---- [...] Address City/State/ZIP Code Phon e Number [facility]- [address] [place], [place] [address] [address] [place] [address] System in [place] [facility] [place] CRP (C-Reactive Protein) (07/16/2020 12:42 PM CDT) athologist Signature C-Reactive 5.0 <=8.0 mg/L 07/16/2020 [facility] Protein (CRP), 1:33 PM CDT P Specimen Anatomical Collection Method Collection Time Receive d Time (Source) Location / / Volume Laterality Blood (Blood, 07/16/2020 12:42 07/16/2020 1:08 Venous) PM CDT PM CDT Velma Munson APRN, C.N.P. LAB BLOOD ADD-ON Performing Organization Address City/State/ZIP Code Phon e Number [facility]- 701 [facility] [place] [address] [address] [place] [address] System in [place] Sedimentation Rate (07/16/2020 12:42 PM CDT) Analysis [...] Address City/State/ZIP Code Phon e Number [facility]- [address] [place] [address], [place] [address] [address] [place] [place] [address] System in [address] CBC with Differential, Blood (07/16/2020 12:42 [...] Address City/State/ZIP Code Phon e Number [facility]- [address] [place], [place] [address] [address] [place] [address] System in [place] [facility] [place] documented in this encounter Visit Diagnoses Diagnosis Arthritis Inflammatory (HCC) documented in this encounter Additional Health Concerns Assessment Noted Time PHQ-9 Depression Total Score: 15 04/21/2018 1:00 PM CS T documented as of this encounter Care Teams Heddler Relationship Specialty Start Date End Date Elsewhere, Pcp PCP - General Internal Medicine 10/22/19 documented as of this encounter
--- OUTSIDE RECORDS SUMMARY | 2022-03-15 11:24 | XMS_ITS | Encounter Summary ---
:1970 Author Organization [facility] Address [address] [place] [address] Care Team Providers Name Role Phone Elsewhere, Pcp Primary Care Provider Unavailable Reason for Visit Reason Comments Covid vaccine ? safe to get Encounter Details Date Type Department Care Team Description 04/18/2020 Clinical Division of Velma Munson vacccésar ramsay (? Communication Rheumatology in L, VISUAL AID EXPERT, C.N.P. safe to get) [place], [place] [address] [facility] [address] [place] [phone] [phone] Social History Tobacco Use Types Packs/Day Years [...] Munson APRN, C.N.P. - 04/30/2020 9:18 AM CORRECTIONAL OFFICER CHIEF Addended by: VELMA MUNSON on: 04/30/2020 09:18 AM Modules accepted: Orders ECTIONAL OFFICER CHIEF Telephone Encounter - Velma Munson APRN, C.N.P. - 04/30/2020 9:15 AM CORRECTIONAL OFFICER CHIEF Yes I can see her for a visit. There is a follow up already ordered. ECTIONAL OFFICER CHIEF Telephone Encounter - Bhavana Washington - 04/28/2020 12:32 PM CST Waleska called this afternoon. She is still experiencing the fatigue and bruises. She's wondering if an appt would be appropriate at this point. She does start PT tomorrow for her ankle. ECTIONAL OFFICER CHIEF Telephone Encounter - Velma Munson APRN, C.N.P. - 04/27/2020 8:53 AM CORRECTIONAL OFFICER CHIEF CBC was stable. I am not concerned about the clumsiness due to the recent ankle sprain. ECTIONAL OFFICER CHIEF Telephone Encounter - Irene Andujar R.N. - [...] following references were used: nursing clinical judgement ECTIONAL OFFICER CHIEF Telephone Encounter - Velma Munson APRN, C.N.P. - 04/21/2020 4:26 PM CORRECTIONAL OFFICER CHIEF Does she feel as though her muscles are weak? Is she having difficulty going from sitting to standing? We need to make sure she is not developing a myositis from the Plaquenil. ECTIONAL OFFICER CHIEF Telephone Encounter - Cam Espinoza R.N. - 04/21/2020 2:06 PM CORRECTIONAL OFFICER CHIEF Information Discussed Message relayed to patient. She [...] following references were used: nursing clinical judgement ECTIONAL OFFICER CHIEF Telephone Encounter - Kaylie Vu M.A.N., R.N. - 04/21/2020 9:02 AM CORRECTIONAL OFFICER CHIEF SUBJECTIVE CHIEF COMPLAINT / REASON FOR CALL Covid vaccine (? safe to get) Information Discussed Left message to return our call. OK for LISSETH to give Waleska this message per Velma: Yes she is ok to get the vaccine. 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 PLAN The following references were used: nursing clinical judgement ECTIONAL OFFICER CHIEF Telephone Encounter - Velma Munson APRN, C.N.P. - 04/21/2020 7:52 AM CORRECTIONAL OFFICER CHIEF Yes she is ok to get the vaccine. 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 ECTIONAL OFFICER CHIEF Telephone Encounter - Keesha Friend - 04/18/2020 9:48 AM CST Pt is scheduled for vaccine on 04-24 She wants to make sure she is OK getting it ECTIONAL OFFICER CHIEF documented in this encounter Plan of Treatment Not on filedocumented as of this encounter Visit Diagnoses Not on filedocumented in this encounter Additional Health Concerns Assessment Noted Time PHQ-9 Depression Total Score: 15 04/21/2018 1:00 PM CS T documented as of this encounter Care Teams Riveter Pneumatic Relationship Specialty Start Date End Date Elsewhere, Pcp PCP - General Internal Medicine 10/22/19 documented as of this encounter
--- OUTSIDE RECORDS SUMMARY | 2022-03-15 11:25 | XMS_ITS | Encounter Summary ---
:1970 Author Organization [facility] Address [address] [place] [address] Care Team Providers Name Role Phone Unavailable Primary Care Provider Unavailable Encounter Details Date Type Department Care Team Description 01/02/2019 Hospital Encounter Department of Velma Munson Laboratory Medicine Lana, LONG, C.N .P. Inflammatory (HCC) and Pathology, [address] [place], [place] [phone] [place] [phone] [place] [address] (Work) [place], [place] [phone] [address] (Fax) [phone] Social History Tobacco Use Types Packs/Day Years [...] AST (Aspartate Aminotransferase) (01/02/2019 9:45 AM CDT) [facility] gist Method Time Signature Aspartate 17 8 - 43 01/02/2019 Aminotransferase U/L 12:22 PM CDT (AST), S Specimen Anatomical Collection Method Collection Time Receive d Time (Source) Location / / Volume Laterality Blood (Blood, 01/02/2019 9:45 AM 01/03/20 19 Venous) CDT 10:06 AM CDT Velma Munson APRN, Karlene.N.P. LAB BLOOD ADD-ON Performing Organization Address [facility] Phon e Number [facility] - [address] Creatinine with Estimated GFR (01/02/2019 9:45 AM CDT) athologist Signature Creatinine 0.83 0.59 - 01/02/2019 1.04 mg/dL 12:22 PM CDT eGFR-Non 84 >=60 01/02/2019 Black/ mL/min/BSA 12:22 PM CDT Argentine Comment: ----ADDITIONAL INFORMATION---- Estimated GFR calculated using [...] C.N.P. LAB BLOOD ADD-ON Performing Organization Address [facility] Phon e Number [facility] - [address] CRP (C-Reactive Protein) (01/02/2019 9:45 AM CDT) athologist Signature C-Reactive <3.0 <=8.0 mg/L 01/02/2019 Protein (CRP), 12:22 PM CDT S Specimen Anatomical Collection Method Collection Time Receive d Time (Source) Location / / Volume Laterality Blood (Blood, 01/02/2019 9:45 AM 01/03/20 19 Venous) CDT 10:06 AM CDT Jorge Polo APRNNLennoxP. LAB BLOOD ADD-ON Performing Organization Address City/[facility]/ZIP Code Phon e Number [facility] - 200 [place] [phone] [facility] Sedimentation Rate (01/02/2019 9:45 AM CDT) Analysis Performed At Patho logist Time Signature Sedimentation 1 0 - 29 01/02/2019 Rate, B mm/1 h 11:18 AM CDT Specimen Anatomical Collection Method Collection Time Receive d Time (Source) Location / / Volume Laterality Blood (Blood, 01/02/2019 9:45 AM 01/03/20 19 Venous) CDT 10:06 AM CDT Jorge Polo APRNNLennoxP. LAB BLOOD ADD-ON Performing Organization Address City/[facility] Code Phon e Number [facility] - 200 [place] [phone] 05 [facility] CBC with Differential, Blood (01/02/2019 9:45 AM [...] e Number [facility] - [address] documented in this encounter Visit Diagnoses Diagnosis Arthritis Inflammatory (HCC) documented in this encounter Additional Health Concerns Assessment Noted Time PHQ-9 Depression Total Score: 15 04/21/2018 1:00 PM CS T documented as of this encounter
--- OUTSIDE RECORDS SUMMARY | 2022-03-15 11:25 | XMS_ITS | Encounter Summary ---
:1970 Author Organization [facility] Address [address] [place] [address] Care Team Providers Name Role Phone Elsewhere, Pcp Primary Care Provider Unavailable Reason for Referral Outpatient (Routine) - Closed Specialty Diagnoses / Procedures Referred By Contact Refer red To Contact Rheumatology [facility] C.N.P. 200 [place] [address] Referral ID Status Reason Start Date Expiration Date Visits Requ ested Visits Authorized [id number] Closed 01/10/2020 01/09/2021 1 1 utpatient (Routine) - Closed Specialty Diagnoses / Procedures Referred By Contact Refer red To Contact Diagnoses Arthritis Inflammatory (HCC) Bursitis Trochanteric Right [facility] Procedures RHU Non-Guided Aspiration/Injection - Large Joint C.N.P. 200 [place] [address] Referral ID Status Reason Start Date Expiration Date Visits Requ ested Visits Authorized [id number] Closed 01/10/2020 01/09/2021 1 1 Reason for Visit Appointment Request (Routine) - Closed Specialty Diagnoses / Procedures Referred By Contact Refer red To Contact Rheumatology Diagnoses Arthritis Rheumatoid (HCC) Referral ID Status Reason Start Date Expiration Date Visits Requ ested Visits Authorized [id number] Closed 12/14/2019 12/13/2020 1 1 Encounter Details Date Type Department Care Team Description 01/10/2020 Telemedicine Division of Velma Munson Arthritis In flammatory (HCC) (Primary Dx); Rheumatology in L, TIMBER SETTER, C.N.P. Bursitis Trochanteric Right; [place], [place] [address] [facility] High Risk Medication [address] [place] [phone] Social History Tobacco Use Types Packs/Day Years [...] technology by Velma Munson APRN, C.N.P. in [facility] to the patient at home. HISTORY OF [...] but on a reevaluation later by a biomedical equipment support specialist the diagnosis of mixed connective tissue disease [...] a corticosteroid injection to be done in [place] into her right trochanteric bursa. #3 High Risk Medication Last Plaquenil eye exam was August 11, 2018. No eye toxicity noted. She is due now. I have ordered a Plaquenil eye exam to be done in [place]. I will plan to touch base with [...] Results AST (Aspartate Aminotransferase) (05/21/2020 7:43 AM REPORTS ANALYSIS MANAGER) Patholo gist Method Time Signature Aspartate 22 8 - 43 05/21/2020 CNFL Aminotransferase U/L 8:04 AM REPORTS ANALYSIS MANAGER (AST), P Specimen Anatomical Collection Method Collection Time Receive d Time (Source) Location / / Volume Laterality Blood (Blood, 05/21/2020 7:43 AM 05/21/19 7:44 Venous) REPORTS ANALYSIS MANAGER AM REPORTS ANALYSIS MANAGER Karlene Polo APRN.N.P. LAB BLOOD ADD-ON Performing Organization Address [facility] Phon e Number [phone] [place] [address] [place] [address] System in [address] Creatinine with Estimated GFR (05/21/2020 7:43 AM REPORTS ANALYSIS MANAGER) P athologist Signature Creatinine 0.78 0.59 - 05/21/2020 CNFL 1.04 mg/dL 8:04 AM REPORTS ANALYSIS MANAGER eGFR-Black/Afric >90 >=60 05/21/2020 CNFL an Indonesian mL/min/BSA 8:04 AM REPORTS ANALYSIS MANAGER Comment: ----ADDITIONAL INFORMATION---- Estimated GFR calculated using the 2009 CKD_EPI creatinine equation. eGFR Non-Black/ >90 >=60 mL/min/BSA 05/21/2020 8:04 AM REPORTS ANALYSIS MANAGER CNFL Comment: ----ADDITIONAL INFORMATION---- Estimated GFR calculated using the 2009 CKD_EPI creatinine equation. Specimen Anatomical Collection Method Collection Time Receive d Time (Source) Location / / Volume Laterality Blood (Blood, 05/21/2020 7:43 AM 05/21/19 7:44 Venous) REPORTS ANALYSIS MANAGER AM REPORTS ANALYSIS MANAGER Karlene Polo APRN.N.P. LAB BLOOD ADD-ON Performing Organization Address [facility] Phon e Number [address] [address] [place] [address] CRP (C-Reactive Protein) (05/21/2020 7:43 AM REPORTS ANALYSIS MANAGER) P athologist Signature C-Reactive 3.3 <=8.0 mg/L 05/21/2020 CNFL Protein (CRP), 8:04 AM REPORTS ANALYSIS MANAGER P Specimen Anatomical Collection Method Collection Time Receive d Time (Source) Location / / Volume Laterality Blood (Blood, 05/21/2020 7:43 AM 05/21/19 7:44 Venous) REPORTS ANALYSIS MANAGER AM REPORTS ANALYSIS MANAGER Velma Munson APRN, Karlene.N.P. LAB BLOOD ADD-ON Performing Organization Address City/[facility] Phon e Number [address] [address] [place] [address] System [address] Sedimentation Rate (05/21/2020 7:43 AM REPORTS ANALYSIS MANAGER) Analysis Performed At Patho logist Time Signature Sedimentation 10 0 - 29 05/21/2020 CNFL Rate, B mm/1 h 8:32 AM REPORTS ANALYSIS MANAGER Specimen Anatomical Collection Method Collection Time Receive d Time (Source) Location / / Volume Laterality Blood (Blood, 05/21/2020 7:43 AM 05/21/19 7:44 Venous) REPORTS ANALYSIS MANAGER AM REPORTS ANALYSIS MANAGER Velma Munson APRN, C.N.P. LAB BLOOD ADD-ON Performing Organization Address City/[facility] Phon e Number [address] [address] [place] [address] CBC with Differential, Blood (05/21/2020 7:43 AM REPORTS ANALYSIS MANAGER) P athologist Signature Hemoglobin 14.3 11.6 - 05/21/2020 CNFL 15.0 g/dL 7:51 AM REPORTS ANALYSIS MANAGER Hematocrit 43.6 35.5 - 05/21/2020 CNFL 44.9 % 7:51 AM REPORTS ANALYSIS MANAGER Erythrocytes 5.09 3.92 - 05/21/2020 CNFL 5.13 7:51 AM REPORTS ANALYSIS MANAGER x10(12)/L MCV 85.7 78.2 - 05/21/2020 CNFL 97.9 fL 7:51 AM REPORTS ANALYSIS MANAGER RBC Distrib Width 13.4 12.2 - 05/21/2020 CNFL 16.1 % 7:51 AM REPORTS ANALYSIS MANAGER Platelet Count 275 157 - 371 05/21/2020 CNFL x10(9)/L 7:51 AM REPORTS ANALYSIS MANAGER Leukocytes 8.2 3.4 - 9.6 05/21/2020 CNFL x10(9)/L 7:51 AM REPORTS ANALYSIS MANAGER Neutrophils 5.79 1.56 - 05/21/2020 CNFL 6.45 7:51 AM REPORTS ANALYSIS MANAGER x10(9)/L Lymphocytes 1.81 0.95 - 05/21/2020 CNFL 3.07 7:51 AM REPORTS ANALYSIS MANAGER x10(9)/L Monocytes 0.48 0.26 - 05/21/2020 CNFL 0.81 7:51 AM REPORTS ANALYSIS MANAGER x10(9)/L Eosinophils 0.10 0.03 - 05/21/2020 CNFL 0.48 7:51 AM REPORTS ANALYSIS MANAGER x10(9)/L Basophils 0.04 0.01 - 05/21/2020 CNFL 0.08 7:51 AM REPORTS ANALYSIS MANAGER x10(9)/L Specimen Anatomical Collection Method Collection Time Receive d Time (Source) Location / / Volume Laterality Blood (Blood, 05/21/2020 7:43 AM 05/21/19 7:44 Venous) REPORTS ANALYSIS MANAGER AM REPORTS ANALYSIS MANAGER Velma Munson APRN C.N.P. LAB BLOOD ADD-ON Performing Organization Address City/State/ZIP Code Phon e Number [facility]- [address] [place] [address] [place] [address] [place] [address] System [address] documented in this encounter Visit Diagnoses Diagnosis Arthritis Inflammatory (HCC) - Primary Bursitis Trochanteric Right High Risk Medication documented in this encounter Additional Health Concerns Assessment Noted Time PHQ-9 Depression Total Score: 15 04/21/2018 1:00 PM CS T documented as of this encounter Care Teams Train Operations Manager Relationship Specialty Start Date End Date Elsewhere, Pcp PCP - General Internal Medicine 10/22/19 documented as of this encounter
--- OUTSIDE RECORDS SUMMARY | 2022-03-15 11:25 | XMS_ITS | Encounter Summary ---
:1970 Author Organization [facility] Address [address] [place] [address] Care Team Providers Name Role Phone Elsewhere, Pcp Primary Care Provider Unavailable Encounter Details Date Type Department Care Team Description 12/28/2019 Hospital Encounter Department of Velma Munson Rheumatoid Laboratory Medicine L, SERVICE DESK ANALYST, C.N .P. ([facility]) in [place] [phone] [facility] [phone] [place], [place] (Work) [phone] Social History Tobacco Use [...] CDT 10:28 AM CDT Velma Munson APRN CLennoxN.P. LAB BLOOD ADD-ON Performing Organization Address City/State/ZIP Code Phon e Number [facility]- [address] [place] [address] [place] [address] CRP (C-Reactive Protein) (12/28/2019 10:26 AM CDT) P athologist Signature C-Reactive 3.8 <=8.0 mg/L 12/28/2019 CNFL Protein (CRP), 10:47 AM CDT P Specimen Anatomical Collection Method Collection Time Receive d Time (Source) Location / / Volume Laterality Blood (Blood, 12/28/2019 10:26 12/28/2019 Venous) AM CDT 10:28 AM CDT Karlene Polo APRN.N.P. LAB BLOOD ADD-ON Performing Organization Address [facility] Phon e Number [address] [address] [place] [address] System in [address] Sedimentation Rate (12/28/2019 10:26 AM CDT) [...] Karlene.N.P. LAB BLOOD ADD-ON Performing Organization Address [facility] Phon e Number [address] [address] [place] [address] System in [place] [address] Bl Creatinine with Estimated GFR (12/28/2019 10:26 AM CDT) P athologist Signature Creatinine 0.71 0.59 - 12/28/2019 CNFL 1.04 mg/dL 10:47 AM CDT eGFR-Black/Afric >90 >=60 12/28/2019 CNFL an Czech mL/min/BSA 10:47 AM CDT Comment: ----ADDITIONAL INFORMATION---- [...] C.N.P. LAB BLOOD ADD-ON Performing Organization Address [facility] Phon e Number [address] [address] [place] [address] [address] AST (Aspartate Aminotransferase) (12/28/2019 10:26 AM CDT) [facility] gist Method Time Signature Aspartate 19 8 - 43 12/28/2019 [facility] Aminotransferase U/L 10:47 AM CDT (AST), P Specimen Anatomical Collection Method Collection Time Receive d Time (Source) Location / / Volume Laterality Blood (Blood, 12/28/2019 10:26 12/28/2019 Venous) AM CDT 10:28 AM CDT Velma Munson APRN, C.N.P. LAB BLOOD ADD-ON Performing Organization Address City/[facility] Phon e Number [address] [address] [place] [address] System in [address] documented in this encounter Visit Diagnoses Diagnosis Arthritis Rheumatoid (HCC) documented in this encounter Additional Health Concerns Assessment Noted Time PHQ-9 Depression Total Score: 15 04/21/2018 1:00 PM CS T documented as of this encounter Care Teams Automotive Parts Coordinator Relationship Specialty Start Date End Date Elsewhere, Pcp PCP - General Internal Medicine 10/22/19 documented as of this encounter
--- OUTSIDE RECORDS SUMMARY | 2022-03-15 11:25 | XMS_ITS | Encounter Summary ---
:[address] [facility] Address [address] [place] [address] Care Team Providers Name Role Phone Unavailable Primary Care Provider Unavailable Reason for Visit Reason Comments Symptom Assessment heart fluttering Encounter Details Date Type Department Care Team Description 09/20/2019 Clinical Communication Division of Pineda Espinoza om Assessment Rheumatology in Cam Jain R.N. (heart fluttering) [place], [place] [address] [facility] [address] [place] [address] [phone] Social History Tobacco Use Types Packs/Day Years [...]
--- OUTSIDE RECORDS SUMMARY | 2022-03-15 11:25 | XMS_ITS | Encounter Summary ---
:1970 Author Organization [facility] Address [address] [place] [address] Care Team Providers Name Role Phone Unavailable Primary Care Provider Unavailable Reason for Visit Outpatient (Routine) - Closed Specialty Diagnoses / Procedures Referred By Contact Refer red To Contact Rheumatology Velma Munson APRN [facility] C.N.P. [address] [place] [address] Referral ID Status Reason Start Date Expiration Date Visits Requ ested Visits Authorized [id number] Closed 08/23/2018 08/23/2019 1 1 Encounter Details Date Type Department Care Team Description 01/02/2019 Office Visit Division of Velma Munson Arthritis In flammatory ([facility]) (Primary Dx); Rheumatology in , LONG, C.N.P. Bursitis Trochanteric Right; [place], [place] [address] [facility] High Risk Medication [address] [place] [phone] Social History Tobacco Use [...] but on a reevaluation later by a venetian blind mechanic the diagnosis of mixed connective tissue disease [...] a corticosteroid injection to be done in [place] into her right trochanteric bursa. #3 High Risk Medication She had her Plaquenil eye screening done by [facility] professionals. I do not have these records. I will have my office secretary contact them for the results. I [...]
--- OUTSIDE RECORDS SUMMARY | 2022-03-15 11:25 | XMS_ITS | Encounter Summary ---
:1970 Author Organization [facility] Address [address] [place] [address] Care Team Providers Name Role Phone Elsewhere, Pcp Primary Care Provider Unavailable Encounter Details Date Type Department Care Team Description 10/26/2019 Hospital Encounter Department of Employer Based, [facility] For Laboratory Medicine Covid Serology Screen ing For Other in [place], [facility] [address] [place] [phone] Social History Tobacco Use Types Packs/Day [...] Total Antibody, Serum (10/26/2019 9:43 AM CDT) [facility] Method Time Signature SARS-CoV-2 Negative Negative 10/26/2019 [...] was performed using the [employer] [id number] Reagent assay from [employer], which has received Emergency Use Authori zation(EUA) by the U.S. Food and Drug Administration . Fact sheets for this Emergency Use Autho rization (EUA) assay can be found at the following link s: For Healthcare Providers: https://www.fda.gov/media/395538/downloa d For Patients: https://www.fda.gov/media/952448/downloa d Specimen Anatomical Collection Method Collection Time Receive d Time (Source) Location / / Volume Laterality Blood (Blood, 10/26/2019 9:43 AM 10/26/19 20 2:40 Venous) CDT PM CDT Covid Serology Testing Employer Based LAB MICROBIOLOGY - BLOOD ORDERABLES Performing Organization Address City/State/[facility] Phon e Number [facility]- [address] [place] [address] [place] [address] [place] [address] [address] documented in this encounter Visit Diagnoses Diagnosis Encounter For Screening For Other Viral Diseases (COVID-19) documented in this encounter Additional Health Concerns Assessment Noted Time PHQ-9 Depression Total Score: 15 04/21/2018 1:00 PM CS T documented as of this encounter Care Teams Dietetics Director Relationship Specialty Start Date End Date Elsewhere, Pcp PCP - General Internal Medicine 10/22/19 documented as of this encounter
--- OUTSIDE RECORDS SUMMARY | 2022-03-15 11:25 | XMS_ITS | Encounter Summary ---
:1970 Author Organization [facility] Address [address] [place] [address] Care Team Providers Name Role Phone Unavailable [...]
--- OUTSIDE RECORDS SUMMARY | 2022-03-15 11:25 | XMS_ITS | Encounter Summary ---
:1970 Author Organization [facility] Address [address] [place] [address] Care Team Providers Name Role Phone Elsewhere, Pcp Primary Care Provider Unavailable Reason for Visit Reason Comments Med Refill Encounter Details Date Type Department Care Team Description 11/16/2019 Refill Division of Rheumatology in Smita Munson sa, APRN, Med Refill [place], [place] C.N.P. [address] [facility] [address] [place] [address] [place] [address] [phone] (Wo rk) Social History Tobacco Use Types [...] documented as of this encounter Care Teams Foster Parent Relationship Specialty Start Date End Date Elsewhere, Pcp PCP - General Internal Medicine 10/22/19 documented as of this encounter
--- OUTSIDE RECORDS SUMMARY | 2022-03-15 11:25 | XMS_ITS | Encounter Summary ---
:1970 Author Organization [facility] Address [address] [place] [address] Care Team Providers Name Role Phone Unavailable Primary Care Provider Unavailable Encounter Details Date Type Department Care Team Description 09/19/2018 Orders Only Division of Rheumatology in [place] ENGINEERING GROUP LEADER, C.N.P. [address] [facility] [address] [place], [place] [phone] [place], [place] [phone] (Wo rk) Social History Tobacco Use Types [...] or slept in a detention (including now)? Sex Assigned at Date Recorded Female 01/25/2018 11:49 AM CDT documented as of this encounter Plan of Treatment Not on filedocumented as of this encounter Visit Diagnoses Not on filedocumented in this encounter Additional Health Concerns Assessment Noted Time PHQ-9 Depression Total Score: 15 04/21/2018 1:00 PM CS T documented as of this encounter
--- OUTSIDE RECORDS SUMMARY | 2022-03-15 11:25 | XMS_ITS | Encounter Summary ---
:1970 Author Organization [facility] Address [address] [place] [address] Care Team Providers Name Role Phone Unavailable [...]
--- OUTSIDE RECORDS SUMMARY | 2022-03-15 11:25 | XMS_ITS | Encounter Summary ---
:1970 Author Organization [facility] Address [address] [place] [address] Care Team Providers Name Role Phone Unavailable Primary Care Provider Unavailable Reason for Visit Reason Comments MRO Review [facility] Encounter Details Date Type Department Care Team Description 09/07/2018 Office Visit Department of Occupational Ana Cristina Carballo, Drug Screen Medicine in [place], M.P. H. [address] [phone] [phone] (Wo rk) Social History Tobacco Use Types [...] 09/07/2018 7:00 AM CDT MRO Review for [facility]. documented in this encounter Plan of Treatment Not on filedocumented as of this encounter Visit Diagnoses Diagnosis Drug Screen documented in this encounter Additional Health Concerns Assessment Noted Time PHQ-9 Depression Total Score: 15 04/21/2018 1:00 PM CS T documented as of this encounter
--- OUTSIDE RECORDS SUMMARY | 2022-03-15 11:25 | XMS_ITS | Encounter Summary ---
:1970 Author Organization [facility] Address [address] [place] [address] Care Team Providers Name Role Phone Elsewhere, Pcp Primary Care Provider Unavailable Encounter Details Date Type Department Care Team Description 01/31/2020 Clinical Communication Division of [facility] Elodia Smith [facility] in [address] [place] [address] [place] [address] [place], [place] [phone] (Work) [phone] Social History Tobacco Use Types Packs/Day Years [...] Route reply to: luiz Reyez Contact Number: [phone] documented in this encounter Plan of Treatment Not on filedocumented as of this encounter Visit Diagnoses Not on filedocumented in this encounter Additional Health Concerns Assessment Noted Time PHQ-9 Depression Total Score: 15 04/21/2018 1:00 PM CS T documented as of this encounter Care Teams Onion Topper Relationship Specialty Start Date End Date Elsewhere, Pcp PCP - General Internal Medicine 10/22/19 documented as of this encounter
--- OUTSIDE RECORDS SUMMARY | 2022-03-15 11:25 | XMS_ITS | Encounter Summary ---
:1970 Author Organization [facility] Address [address] [place] [address] Care Team Providers Name Role Phone Elsewhere, Pcp Primary Care Provider Unavailable Encounter Details Date Type Department Care Team Description 10/25/2019 Orders Only Department of Family Employer Based, [facility], [place] Covid Serology Screeni ng For Other Clinic, in [place], Testing Viral D [facility] (COVID-19) (Primary [address] Dx) [place] [address] Social History Tobacco Use Types [...] Total Antibody, Serum (10/26/2019 9:43 AM CDT) [facility] Method Time Signature SARS-CoV-2 Negative Negative [...] was performed using the [employer] El [employer]ys Uazq-MIEQ-YoK-2 Reagent assay from [employer], which has received Emergency Use Authori zation(EUA) by the U.S. Food and Drug Administration . Fact sheets for this Emergency Use Autho rization (EUA) assay can be found at the following link s: For Healthcare Providers: https://www.fda.gov/media/871606/downloa d For Patients: https://www.fda.gov/media/771915/downloa d Specimen Anatomical Collection Method Collection Time Receive d Time (Source) Location / / Volume Laterality Blood (Blood, 10/26/2019 9:43 AM 10/26/19 20 2:40 Venous) CDT PM CDT Covid Serology Testing Employer Based LAB MICROBIOLOGY - BLOOD ORDERABLES Performing Organization Address City/State/ZIP Code Phon e Number [facility]- [address] [place] [address] 18 [phone] [facility] [place] [address] [address] documented in this encounter Visit Diagnoses Diagnosis Encounter For Screening For Other Viral Diseases (COVID-19) - Primary documented in this encounter Additional Health Concerns Assessment Noted Time PHQ-9 Depression Total Score: 15 04/21/2018 1:00 PM CS T documented as of this encounter Care Teams Client Relation Specialist Relationship Specialty Start Date End Date Elsewhere, Pcp PCP - General Internal Medicine 10/22/19 documented as of this encounter
--- OUTSIDE RECORDS SUMMARY | 2022-03-15 11:25 | XMS_ITS | Encounter Summary ---
:1970 Author Organization [facility] Address [address] [place] [address] Care Team Providers Name Role Phone Elsewhere, Pcp Primary Care Provider Unavailable Reason for Visit Reason Comments Pre-visit Testing Orders Encounter Details Date Type Department Care Team Description 12/14/2019 Clinical Division of Velma Munson Pre-visit Te sting Communication Rheumatology in L, PULLING MACHINE OPERATOR, C.N.P. Orders [place], [place] [address] [facility] [address] [place] [address] [phone] Social History Tobacco Use Types Packs/Day Years [...] C.N.P. LAB BLOOD ADD-ON Performing Organization Address City/[facility] Code Phon e Number [address] [address] [place] [address] [address] CRP (C-Reactive Protein) (12/28/2019 10:26 AM [...] Organization Address City/State/ZIP Code Phon e Number [address] [address] [place] [address] Sedimentation Rate (12/28/2019 10:26 AM CDT) Analysis Performed At Patho logist Time Signature Sedimentation 13 0 - 29 12/28/2019 [facility] Rate, B mm/1 h 11:46 AM CDT Specimen Anatomical Collection Method Collection Time Receive d Time (Source) Location / / Volume Laterality Blood (Blood, 12/28/2019 10:26 12/28/2019 Venous) AM CDT 10:28 AM CDT Jorge Polo APRNN.P. LAB BLOOD ADD-ON Performing Organization Address [facility] Code Phon e Number [address] [address] [place] [address] [address] Creatinine with Estimated GFR (12/28/2019 10:26 AM CDT) P athologist Signature Creatinine 0.71 0.59 - 12/28/2019 [facility] 1.04 mg/dL 10:47 AM CDT eGFR-Black/Afric >90 >=60 12/28/2019 [facility] an Mozambican mL/min/BSA 10:47 AM CDT Comment: ----ADDITIONAL INFORMATION---- [...] APRN.N.P. LAB BLOOD ADD-ON Performing Organization Address City/[facility]/ZIP Code Phon e Number [address] [address] [place] [address] AST (Aspartate Aminotransferase) (12/28/2019 10:26 AM CDT) [facility] gist Method Time Signature Aspartate 19 8 - 43 12/28/2019 [facility] Aminotransferase U/L 10:47 AM CDT (AST), P Specimen Anatomical Collection Method Collection Time Receive d Time (Source) Location / / Volume Laterality Blood (Blood, 12/28/2019 10:26 12/28/2019 Venous) AM CDT 10:28 AM CDT Velma Munson APRN, C.N.P. LAB BLOOD ADD-ON Performing Organization Address City/State/ZIP Code Phon e Number [facility]- [address] [place] [address] [place] [address] documented in this encounter Visit Diagnoses Diagnosis Arthritis Rheumatoid (HCC) - Primary documented in this encounter Additional Health Concerns Assessment Noted Time PHQ-9 Depression Total Score: 15 04/21/2018 1:00 PM CS T documented as of this encounter Care Teams Psychologist Private Practice Relationship Specialty Start Date End Date Elsewhere, Pcp PCP - General Internal Medicine 10/22/19 documented as of this encounter
--- OUTSIDE RECORDS SUMMARY | 2022-03-15 11:25 | XMS_ITS | Encounter Summary ---
:1970 Author Organization [facility] Address [address] [place] [address] Care Team Providers Name Role Phone Unavailable Primary Care Provider Unavailable Reason for Referral Outpatient (Routine) - Closed Specialty Diagnoses / Procedures Referred By Contact Refer red To Contact Dermatology Dayana Sweeney M[facility] D[facility] [address] [place] [phone] Referral ID Status Reason Start Date Expiration Date Visits Requ ested Visits Authorized [id number] Closed 09/05/2018 09/05/2019 1 1 Encounter Details Date Type Department Care Team Description 08/29/2018 Clinical Support Department of Dayana Sweeney (Primary Dx); Dermatology césar Gonzales M.D. Hyperpigmentation; [place], [place] [address] [place] [address] Dermatitis Contact [address] [place] [phone] Social History Tobacco Use Types Packs/Day Years [...] M.D. Patient seen and discussed with supervising travel consultant,who evaluated the patient and concurs with [...] patch test results (standard + extended standard): -5-dmrj-Ahthbbkltcn formaldehyde resin 1% (2) -Benzalkonium chloride (2) [...] PLAN #Patch testing with positive reactions to 7-qqny-Fqufgxagkxx formaldehyde resin, Benzalkonium chloride, Methlisothiazolinone, Hydroperoxides of [...]
--- OUTSIDE RECORDS SUMMARY | 2022-03-15 11:25 | XMS_ITS | Encounter Summary ---
:1970 Author Organization [facility] Address [address] [place] [address] Care Team Providers Name Role Phone Unavailable Primary Care Provider Unavailable Reason for Visit Reason Comments Drug Screen [facility] Encounter Details Date Type Department Care Team Description 09/06/2018 Clinical Support Department of Ana Cristina Carballo Drug Scre en (Primary Occupational Medicine Alex Jain, M .P.H. Dx) in [address] [phone] [phone] Social History Tobacco Use Types Packs/Day Years [...] PM CDT Pre employment uds completed for [employer]. Uneventful collection. documented in this encounter Plan of Treatment Scheduled Orders Name Type Priority Associated Diagnoses Order S chedule [facility] Drug screening Procedures Routine Drug Screen Ordered: 09/06/2018 documented as of this encounter Visit Diagnoses Diagnosis Drug Screen - Primary documented in this encounter Additional Health Concerns Assessment Noted Time PHQ-9 Depression Total Score: 15 04/21/2018 1:00 PM CS T documented as of this encounter
--- OUTSIDE RECORDS SUMMARY | 2022-03-15 11:25 | XMS_ITS | Encounter Summary ---
:1970 Author Organization [facility] Address [address] [place] [address] Care Team Providers Name Role Phone Unavailable Primary Care Provider Unavailable Reason for Visit Reason Comments Med Refill Encounter Details Date Type Department Care Team Description 08/07/2019 Refill Division of Rheumatology in Smita Munson sa, APRN, Med Refill [place], [place] C.N.P. [address] [facility] [address] [place] [address] [place] [address] [phone] (Wo rk) Social History Tobacco Use Types [...]
--- OUTSIDE RECORDS SUMMARY | 2022-03-15 11:25 | XMS_ITS | Encounter Summary ---
:1970 Author Organization [facility] Address [address] [place] [address] Care Team Providers Name Role Phone Elsewhere, Pcp Primary Care Provider Unavailable Reason for Visit Reason Comments P2 Flare in Symptoms Encounter Details Date Type Department Care Team Description 01/30/2020 Clinical Division of Velma Munson P2 Flare in Communication Rheumatology in L, ADOLESCENT SPECIALIST, C.N.P. Symptoms [place], [place] [address] [facility] [address] [place] [phone] [phone] Social History Tobacco Use Types Packs/Day Years [...] of this encounter Care Teams Early Childhood Lead Teacher Relationship Specialty Start Date End Date Elsewhere, Pcp PCP - General Internal Medicine 10/22/19 documented as of this encounter
--- OUTSIDE RECORDS SUMMARY | 2022-03-15 11:25 | XMS_ITS | Encounter Summary ---
:1970 Author Organization [facility] Address [address] [place] [address] Care Team Providers Name Role Phone Unavailable Primary Care Provider Unavailable Reason for Visit Reason Comments P2: medication and hip pain Encounter Details Date Type Department Care Team Description 07/25/2019 Clinical Division of Velma Munson P2: medicati on and Communication Rheumatology in L, AB INITIO ETL DEVELOPER, C.N.P. hip pain [place], [place] [address] [facility] [address] [place] [phone] Social History Tobacco Use Types Packs/Day Years [...] Munson CNP Please contact the patient at: [phone] documented in this encounter Plan of Treatment Not on filedocumented as of this encounter Visit Diagnoses Not on filedocumented in this encounter Additional Health Concerns Assessment Noted Time PHQ-9 Depression Total Score: 15 04/21/2018 1:00 PM CS T documented as of this encounter
--- OUTSIDE RECORDS SUMMARY | 2022-03-15 11:25 | XMS_ITS | Encounter Summary ---
:1970 Author Organization [facility] Address [address] [place] [address] Care Team Providers Name Role Phone Unavailable Primary Care Provider Unavailable Reason for Visit Outpatient (Routine) - Closed Specialty Diagnoses / Procedures Referred By Contact Refer red To Contact Dermatology Dayana Sweeney M[facility] [address] [place] [phone] Referral ID Status Reason Start Date Expiration Date Visits Requ ested Visits Authorized [id number] Closed 09/05/2018 09/05/2019 1 1 Encounter Details Date Type Department Care Team Description 01/02/2019 Office Visit Department of Dayana Sweeney (Gabrielle corral Dx); Dermatology césar Gonzales M.D. Hyperpigmentation Post Inflammatory [place], [place] [address] [place] [address] [address] [place] [phone] Social History Tobacco Use Types Packs/Day Years [...] performed and was positive to the following: -9-btwu-Bqsurfaqdcr formaldehyde resin 1% (2), Benzalkonium chloride (2), [...] C. The patient obtained this from the [facility] and used it twice daily for [...] her bilateral cheeks and extending to her shinto areas. Left forehead with ill-defined and irregularly-shaped [...] referral to Dr. Fidel Rivas in the [facility]. I recommend that she continue with [...] to the patient by letter. Patientgiven pamphlet [id number]. All questions answered. PATIENT EDUCATION Ready to learn. No apparent learning barriers were identified. Learning preferences include listening. Explained diagnosis and treatment plan; patient/guardian of patient expressed understanding of thecontent. documented in this encounter Plan of Treatment Not on filedocumented as of this encounter Procedures Procedure Name Priority Date/Time Associated Diagnosis Comme nts DERMATOPATHOLOGY Routine 01/02/2019 8:39 AM Resul ts [...] Address City/State/ZIP Code Phon e Number [facility] - [address] [place], [place] [address] [facility] documented in this encounter Visit Diagnoses Diagnosis Melasma - Primary Hyperpigmentation Post Inflammatory documented in this encounter Additional Health Concerns Assessment Noted Time PHQ-9 Depression Total Score: 15 04/21/2018 1:00 PM CS T documented as of this encounter
--- OUTSIDE RECORDS SUMMARY | 2022-03-15 11:25 | XMS_ITS | Encounter Summary ---
:1970 Author Organization [facility] Address [address] [place] [address] Care Team Providers Name Role Phone Elsewhere, Pcp Primary Care Provider Unavailable Reason for Visit Reason Onset Date Comments Outpatient COVID-19 Testing 10/22/2019 Encounter Details Date Type Department Care Team Description 10/22/2019 External Outreach Department of Employer Based, [facility], Covid Serology Screening For Other [facility], in Testing Viral Di [place], [place] (COVID-19) (Primary [address] Dx) [place] [phone] Social History Tobacco Use Types Packs/Day Years [...] Scrn, Blood Spot (10/22/2019 2:01 PM CDT) [facility] Method Time Signature SARS-CoV-2 Reactive (A) Negative 10/24/2019 [facility] IgG Emp Scrn, 10:17 PM CDT [...] . ?? Testing was performed using the [employer] Oilq-TQBG-BjX-2 NAHUM (IgG). ??This test has received Emergency Use Authorization (EUA) by the U.S. Food and Drug Administration and is used per sports administrator's instructions, but it is modified from the sports administrator's instructions wit h a bridging study to include dried blood spot specimens. ? ? Performance characteristics were verifie d by [facility] in a manner consistent with CLIA require ments. ?? Specimen Anatomical Collection Method Collection Time Receive d Time (Source) Location / / Volume Laterality Blood (Blood, 10/22/2019 2:01 PM 10/24/19 20 5:16 Venous) CDT PM CDT Covid Serology Testing Employer Based LAB MICROBIOLOGY - BLOOD ORDERABLES Performing Organization Address City/State/ZIP Code Phon e Number [facility] [address] [place] [address] SUPPORT [facility] [place] [address] Laboratory Medicine and Pathology [address] [place] documented in this encounter Visit Diagnoses Diagnosis Encounter For Screening For Other Viral Diseases (COVID-19) - Primary documented in this encounter Additional Health Concerns Assessment Noted Time PHQ-9 Depression Total Score: 15 04/21/2018 1:00 PM CS T documented as of this encounter Care Teams Bioprocess Engineer Relationship Specialty Start Date End Date Elsewhere, Pcp PCP - General Internal Medicine 10/22/19 documented as of this encounter
--- OUTSIDE RECORDS SUMMARY | 2022-03-15 11:25 | XMS_ITS | Encounter Summary ---
:1970 Author Organization [facility] Address [address] [place] [address] Care Team Providers Name Role Phone Unavailable [...]
--- OUTSIDE RECORDS SUMMARY | 2022-03-15 11:25 | XMS_ITS | Encounter Summary ---
:1970 Author Organization [facility] Address [address] [place] [address] Care Team Providers Name Role Phone Elsewhere, Pcp Primary Care Provider Unavailable Reason for Visit Reason Comments COVID Nurse Line Encounter Details Date Type Department Care Team Description 12/14/2019 Clinical Communication Division of Velma Munson Nurse Line Rheumatology in , TILE MACHINE OPERATOR, C.N.P. [place], [place] [address] [facility] [address] [place] [phone] Social History Tobacco Use Types Packs/Day Years [...] - 12/14/2019 10:13 AM CDT ([facility] and [facility] locations only: If the patient is not having symptoms and is requesting COVID-19 Nasal Swab testing only, use the process listed in the COVID-19 Patient Requesting COVID PCR Test OTG COVID-19 [place] Patient Requesting COVID PCR Test). In the past 30 days have you had a swab for COVID that tested positive? no Route reply to: LEIGH U SCHEDULING Scheduling Contact Number: [phone] documented in this encounter Plan of Treatment Not on filedocumented as of this encounter Visit Diagnoses Not on filedocumented in this encounter Additional Health Concerns Assessment Noted Time PHQ-9 Depression Total Score: 15 04/21/2018 1:00 PM CS T documented as of this encounter Care Teams Transportation Superintendent Relationship Specialty Start Date End Date Elsewhere, Pcp PCP - General Internal Medicine 10/22/19 documented as of this encounter
--- OUTSIDE RECORDS SUMMARY | 2022-03-15 11:26 | XMS_ITS | Encounter Summary ---
:1970 Author Organization [facility] Address [address] [place] [address] Care Team Providers Name Role Phone Unavailable Primary Care Provider Unavailable Encounter Details Date Type Department Care Team Description 06/14/2018 Clinical Communication Division of Velma Munson Rheumatology in , VICTIM WITNESS ADMINISTRATOR, C.N.P. [place], [place] [address] [facility] [address] [place] [phone] Social History Tobacco Use Types Packs/Day Years [...] Nano Gomes R.N. - 06/15/2018 12:19 PM LIFE TESTER OUT[employer] INFORMATION DISCUSSED Patient was relayed per Dr. [...] following references were used: nursing clinical judgement TESTER [employer] Telephone Encounter - Nano Gomes R.N. - 06/15/2018 10:34 AM LIFE TESTER OUTBO[employer] MOTORS INFORMATION DISCUSSED Patient reports that that her [...] following references were used: nursing clinical judgement TESTER [employer] Telephone Encounter - Velma Munson APRN, C.N.P. - 06/14/2018 4:05 PM LIFE TESTER [employer]BO[employer]ORS Please call the patient to verify symptoms. I gave her a prednisone burst and taper last week, with no improvement. TESTER OUTBOARD [employer]ORS Telephone Encounter - Shanti Hinson - 06/14/2018 [...] to what next steps she should take. TESTER OUTBOARD MOTORS documented in this encounter Plan of Treatment Not on filedocumented as of this encounter Visit Diagnoses Not on filedocumented in this encounter Additional Health Concerns Assessment Noted Time PHQ-9 Depression Total Score: 15 04/21/2018 1:00 PM CS T documented as of this encounter
--- OUTSIDE RECORDS SUMMARY | 2022-03-15 11:26 | XMS_ITS | Encounter Summary ---
:[address] [facility] Address [address] [place] [address] Care Team Providers Name Role Phone Unavailable Primary Care Provider Unavailable Reason for Visit Reason Comments Patch Testing Encounter Details Date Type Department Care Team Description 08/25/2018 Office Visit Department of Dayana Sweeney M.D. [address] [place] [phone] Hyperpigmentation Dermatology in [place] R.N. [address] [place] [phone] [place], [place] [address] [place] [phone] Social History Tobacco Use Types Packs/Day [...] for patch test day 5 reading. Supervising agricultural consultant: Nano Aragon MD ([phone]). Ordering physician: Dayana Sweeney MD ([phone]). Final day reading of patch testing completed [...] testing per patient education pamphlet Patch Testing [id number]. Teaching methods included discussion and printed material. [...]
--- OUTSIDE RECORDS SUMMARY | 2022-03-15 11:26 | XMS_ITS | Encounter Summary ---
:1970 Author Organization [facility] Address [address] [place] [address] Care Team Providers Name Role Phone Unavailable Primary Care Provider Unavailable Reason for Visit Outpatient (Routine) - Closed Specialty Diagnoses / Procedures Referred By Contact Refer red To Contact Dermatology Diagnoses Vitiligo Left Unspecified Eyelid And Periocular Area [facility] [address] [place] [phone] Referral ID Status Reason Start Date Expiration Date Visits V isits Requested Authorized [id number] Closed Specialty 04/13/2018 04/13/2019 1 1 Services Required Encounter Details Date Type Department Care Team Description 06/14/2018 Comprehensive Visit Department of Joel Rubin M.D. Abnormality Pigment (Primary Dx); Dermatology in Dayana Sweeney M.D. [address] [place] [phone] Vitiligo Left Unspecified Eyelid And Per iocular Area [place], [place] [address] [place] [phone] Social History Tobacco Use Types Packs/Day Years [...] Of note, she is followed here at [facility] by Rheumatology due to inflammatory arthritis with [...] her bilateral cheeks and extending to her latter day areas. Leftforehead with ill-defined and irregularly-shaped brown [...] the patient by letter. Patient given pamphlet [id number]. CONSENT Discussed the risks, benefits, alternatives, and the necessity of other members of the healthcare team participating in the procedure. All questions answered and consent given. PATIENT EDUCATION: Ready to learn. No apparent learning barriers were identified. Learning preferences include listening. Explained diagnosis and treatment plan; patient/guardian of patient expressed understanding of thecontent. A total of 40 minutes were spent [id number] with the patient during this encounter with at least 50% spent on counseling, discussing the plan and coordination of care. CT CT Job ID: [id number] GER MARKET INTELLIGENCE documented in this encounter Plan of Treatment Not on filedocumented as of this encounter Procedures Procedure Name Priority Date/Time Associated Comments Diagnosis CUTANEOUS DIRECT IFA, Routine 06/14/2018 3:04 Abnormality Pigm ent Results for this BIOPSY PM MANAGER MARKET INTELLIGENCE procedure are i n the results section. DERMATOPATHOLOGY Routine 06/14/2018 3:03 Abnormality Pigment R esults for this PM MANAGER MARKET INTELLIGENCE procedure are i n the results section. documented in this encounter Results Cutaneous Direct IFA, Biopsy (06/14/2018 3:04 PM MANAGER MARKET INTELLIGENCE) Component Value Ref Test Analysis Performed At [facility] gist Range Method Time Signature [facility] 9 11:46 LABORATORIES AM [facility] Report William Lambert, [facility] electronically lAex 9 11:46 LABORATORIES signed by [facility] Interpretation A. ??Left forehead, skin punch biopsy, Immunofluores cence: [facility] IgG: ??Negative 9 11:46 LABORATORIES IgM: ??Discontinuous weak granular basement membrane zone; [facility] few scattered cytoids MAIN CAM PUS [...] reagent. Its performance characteristics were determined by [facility] in a manner consistent with CLIA requirements. This test has not bee n cleared or approved by the U.S. Food and Drug Administration. Specimen (Source) Anatomical Collection Method Collection Time Re ceived Time Location / / Volume Laterality Skin (Left 06/14/2018 3:04 PM forehead) MANAGER MARKET INTELLIGENCE Narrative This result has an attachment that is no t available. Dayana Sweeney M.D. LAB PATH DERM ORDERABLES Performing Organization Address City/State/ZIP Code Phon e Number [facility] LABORATORIES - [address] [place], [place] [address] [facility] Dermatopathology (06/14/2018 3:03 PM [facility]) Component Value Ref Test Analysis Performed At [facility] gist Range Method Time Signature 06/19/2018 [facility] 4:20 PM LABORATORIES - [facility] Report Richardson Sosa 06/19/2018 [facility] electronically Alex Medina 4:20 PM LABORATOR IES - signed by [facility] Gross Received in formalin labeled with the patient's name, 06/19/2018 [facility] Description medical record number, and left forehead is a 0.4 x 0.2 4:20 PM LABORATORIES - cm aragon-white portion of skin punch biopsy (half-punch), [facility] excised to a depth of 0.1 cm. ??There is a pale aragon [facility] CAMPUS brown pigmented lesion diffusely in the surface. The specimen is submitted en toto in cassette A1. Grossed by DULCE. Disclaimer This test was developed and its performance characteri stics 06/19/2018 [facility] determined by [facility] in a manner consistent with CLIA 4:20 PM LABORATORIES - requirements. This test has not been cleared or approved b y [facility] the U.S. Food and Drug Administration. CAMPUS Addendum Melan A stain demonstrates normal number of melanocyte s at 06/21/2018 [facility] the basal layer of the epidermis. 2:18 P M LABORATORIES - Signed by Richardson Medina M.D. 06/21/2018 2:18 PM [facility] This test was developed and its performance CAMPUS characteristics determined by [facility] in a manner consistent with CLIA requirements. This test has not been cleared or approved by the U.S. Food and Drug Administration. Comment: REVISED RESULTS Interpretation FINAL DIAGNOSIS 06/21/2018 2:[address] [facility] A. ??Left forehead, Skin punch biopsy: ??Increased basal [facility] LABORATORIES - keratinocyte melanin pigment and superficial dermal melanin [facility] COMMENT Clinical photo reviewed. ??Multiple tissue levels examined. [place] demonstrate the increased basal keratinocyte melanin and superficial dermal melanin deposition. Prussian blue is negative. ??These findings may be seen in melasma or possibly postinflammatory hyperpigmentation. Clinical and pathological correlation is recommended. Specimen (Source) Anatomical Collection Method Collection Time Re ceived Time Location / / Volume Laterality Skin (Left 06/14/2018 3:03 PM forehead) MANAGER MARKET INTELLIGENCE Narrative This result has an attachment that is no t available. Dayana Sweeney M.D. LAB PATH DERM ORDERABLES Performing Organization Address City/State/ZIP Code Phon e Number [facility] LABORATORIES - [address] [place] [phone] [facility] documented in this encounter Visit Diagnoses Diagnosis Abnormality Pigment - Primary Vitiligo Left Unspecified Eyelid And Per iocular Area documented in this encounter Additional Health Concerns Assessment Noted Time PHQ-9 Depression Total Score: 15 04/21/2018 1:00 PM CS T documented as of this encounter
--- OUTSIDE RECORDS SUMMARY | 2022-03-15 11:26 | XMS_ITS | Encounter Summary ---
:1970 Author Organization [facility] Address [address] [place] [address] Care Team Providers Name Role Phone Unavailable Primary Care Provider Unavailable Reason for Visit Outpatient (Routine) - Closed Specialty Diagnoses / Procedures Referred By Contact Refer red To Contact Diagnoses Hyperpigmentation Dayana Sweeney M.D. [facility] Procedures JOSÉ MIGUEL Phototherapy - UVA/UVB - MED Photosensitivity testing [address] [place] [phone] Referral ID Status Reason Start Date Expiration Date Visits Requ ested Visits Authorized [id number] Closed 07/03/2018 07/03/2019 2 2 Encounter Details Date Type Department Care Team Description 08/22/2018 Clinical Support Department of Dermatology Dayana Savage M.D. [address] [place] [address] [phone] in [facility] Irene Dash, LLennoxPLennoxNLennox [address] [place] [phone] Social History Tobacco Use Types Packs/Day [...]
--- OUTSIDE RECORDS SUMMARY | 2022-03-15 11:26 | XMS_ITS | Encounter Summary ---
:1970 Author Organization [facility] Address [address] [place] [address] Care Team Providers Name Role Phone Unavailable Primary Care Provider Unavailable Encounter Details Date Type Department Care Team Description 08/21/2018 Clinical Support Department of Dayana Sweeney M.D. [address] [place] [phone] Hyperpigmentation Dermatology in Darleen George R.N. [address] [place] [phone] [place], [place] [address] [place] [phone] Social History Tobacco Use Types Packs/Day Years [...] is here for patch test application. Supervising Crew Mess Attendant: Mandy Jennings MD ([id number]). Ordering Provider: Dayana Sweeney MD ([id number]). The Standard series (80 patches) and Extended Standard/Personal Care series (60 patches) were applied to the back. Total number of patches applied: 140. Teaching provided to patient and spouse. Barriers to learning identified as none. Preferred learningstyle is listening, reading, seeing and doing. Educated about patch testing per patient education pamphlet Patch Testing [id number]. Teaching methods included discussion and printed materials. [...]
--- OUTSIDE RECORDS SUMMARY | 2022-03-15 11:26 | XMS_ITS | Encounter Summary ---
:1970 Author Organization [facility] Address [address] [place] [address] Care Team Providers Name Role Phone Unavailable Primary Care Provider Unavailable Encounter Details Date Type Department Care Team Description 07/03/2018 Orders Only Department of Dermatology in You Dayana rudolph M.D. [place], [place] [address] [facility] [address] [place] [phone] (Wo rk) Social History Tobacco Use Types [...]
--- OUTSIDE RECORDS SUMMARY | 2022-03-15 11:26 | XMS_ITS | Encounter Summary ---
:1970 Author Organization [facility] Address [address] [place] [address] Care Team Providers Name Role Phone Unavailable Primary Care Provider Unavailable Reason for Referral Outpatient (Routine) - Closed Specialty Diagnoses / Procedures Referred By Contact Refer red To Contact Rheumatology Velma Munson APRN, [place] C.N.P. [address] [place] [phone] Referral ID Status Reason Start Date Expiration Date Visits Requ ested Visits Authorized [id number] Closed 08/23/2018 08/23/2019 1 1 Reason for Visit Outpatient (Routine) - Closed Specialty Diagnoses / Procedures Referred By Contact Refer red To Contact Rheumatology Velma Munson APRN, [facility] C.N.P. [address] [place] [phone] Referral ID Status Reason Start Date Expiration Date Visits Requ ested Visits Authorized [id number] Closed 05/19/2018 05/19/2019 1 1 Encounter Details Date Type Department Care Team Description 08/23/2018 Office Visit Division of Velma Munson Arthritis In flammatory (HCC) (Primary Dx); Rheumatology in LONG Schwartz, C.N.P. Pain Hip Left [place], [place] [address] [facility] [address] [place] [phone] Social History Tobacco Use Types Packs/Day [...] Body Mass Index 23.27 05/19/2018 7:54 AM BUSINESS DEVELOPMENT ASSISTANT documented in this encounter Progress Notes Velma [...] but on a reevaluation later by a field artillery fire control man the diagnosis was refuted. She later established care with a field artillery fire control man at [facility] who made [...] Risk Medication She will see a local major assembly lineman for the Plaquenil eye screening in the [facility]. I will follow up with [...] Address City/State/ZIP Code Phon e Number [facility] - 200 [place], [place] [address] [facility] Creatinine with Estimated GFR (01/02/2019 9:45 AM CDT) P athologist Signature Creatinine 0.83 0.59 - 01/02/2019 1.04 mg/dL 12:22 PM CDT eGFR-Non 84 >=60 01/02/2019 Black/ mL/min/BSA 12:22 PM CDT Chilean Comment: ----ADDITIONAL INFORMATION---- Estimated GFR calculated using [...] Karlene.N.P. LAB BLOOD ADD-ON Performing Organization Address City/[facility]/ZIP Code Phon e Number [facility] - 200 [place] [phone] [address] [facility] CRP (C-Reactive Protein) (01/02/2019 9:45 AM CDT) P athologist Signature C-Reactive <3.0 <=8.0 mg/L 01/02/2019 Protein (CRP), 12:22 PM CDT S Specimen Anatomical Collection Method Collection Time Receive d Time (Source) Location / / Volume Laterality Blood (Blood, 01/02/2019 9:45 AM 01/03/20 Venous) CDT 10:06 AM CDT Velma Munson APRN, C.N.P. LAB BLOOD ADD-ON Performing Organization Address City/[facility]/ZIP Code Phon e Number [facility] - 200 [place] [phone] [address] [facility] Sedimentation Rate (01/02/2019 9:45 AM [...] Address City/State/ZIP Code Phon e Number [facility] - 200 [place] [phone] [address] [facility] CBC with Differential, Blood (01/02/2019 [...] Address City/State/ZIP Code Phon e Number [facility] - [address] [place], [place] [address] [facility] documented in this encounter Visit Diagnoses Diagnosis Arthritis Inflammatory (HCC) - Primary Pain Hip Left documented in this encounter Additional Health Concerns Assessment Noted Time PHQ-9 Depression Total Score: 15 04/21/2018 1:00 PM CS T documented as of this encounter
--- OUTSIDE RECORDS SUMMARY | 2022-03-15 11:26 | XMS_ITS | Encounter Summary ---
:1970 Author Organization [facility] Address [address] [place] [address] Care Team Providers Name Role Phone Unavailable Primary Care Provider Unavailable Reason for Visit Reason Comments Results Encounter Details Date Type Department Care Team Description 05/19/2018 Clinical Communication Division of Velma Munson Rheumatology in L, POLE FRAMER, C.N.P. [place], [place] [address] [facility] [address] [place] [phone] Social History Tobacco Use Types Packs/Day Years [...] Cam Espinoza R.N. - 05/23/2018 11:41 AM BOOKKEEPERS SUPERVISOR INFORMATION DISCUSSED Message relayed to patient. Patient understood discussion and had no further questions. PLAN Disposition/Recommendation: self-care appropriate at this time Education: patient/caller able to teach back Caller agreeable to plan of care: yes The following references were used: nursing clinical judgement KEEPERS SUPERVISOR Telephone Encounter - Velma Munson APRN, C.N.P. - 05/19/2018 4:36 PM BOOKKEEPERS SUPERVISOR Please let the patient know the xrays of her lumbar spine and pelvis did not show any inflammation. There were degenerative changes noted in multiple levels her lumbar spine, pelvis and hips. Velma KEEPERS SUPERVISOR documented in this encounter Plan of Treatment Not on filedocumented as of this encounter Visit Diagnoses Not on filedocumented in this encounter Additional Health Concerns Assessment Noted Time PHQ-9 Depression Total Score: 15 04/21/2018 1:00 PM CS T documented as of this encounter
--- OUTSIDE RECORDS SUMMARY | 2022-03-15 11:26 | XMS_ITS | Encounter Summary ---
:1970 Author Organization [facility] Address [address] [place] [address] Care Team Providers Name Role Phone Unavailable Primary Care Provider Unavailable Reason for Visit Reason Comments Med Management Outpatient (Routine) - Closed Specialty Diagnoses / Procedures Referred By Contact Refer red To Contact Pharmacy Diagnoses Clinical [facility]acy - Pharmacogenomics eConsult M.DLennox [address] [place] [phone] Referral ID Status Reason Start Date Expiration Date Visits Requ ested Visits Authorized [id number] Closed 08/18/2018 08/18/2019 1 1 Encounter Details Date Type Department Care Team Description 08/21/2018 Medication Department of Tamir Butcher Clinical R esearch Management Medical Genetics in A, MLennoxDLennox Exam [place], [address] [place] [address] [place] [phone] [place], [place] [phone] (Work) [phone] Social History Tobacco Use Types Packs/Day Years [...] Consult Notes Yassine Leal Pharm.D., R.Ph. - 08/21/2018 10:00 AM CDT SUBJECTIVE REASON FOR CONSULT Patient was referred by Tamir Butcher M.D. as a participant in IRB # [id number] (Utility of Pharmacogenomic Testing in Patients with [...]
--- OUTSIDE RECORDS SUMMARY | 2022-03-15 11:26 | XMS_ITS | Encounter Summary ---
:1970 Author Organization [facility] Address [address] [place] [address] Care Team Providers Name Role Phone Unavailable [...]
--- OUTSIDE RECORDS SUMMARY | 2022-03-15 11:26 | XMS_ITS | Encounter Summary ---
:1970 Author Organization [facility] Address [address] [place] [address] Care Team Providers Name Role Phone Unavailable Primary Care Provider Unavailable Encounter Details Date Type Department Care Team Description 05/24/2018 Clinical Communication Center for Sleep Mimi Hatch, Medicine in [place], [place] [address] [facility] [address] [place] [phone] Social History Tobacco Use Types Packs/Day Years [...] CBT appointment. She can be reached at [phone]. Can you please put order through for [...] references were used: provider Gigi Mcbride M.D. OTYPE DEICER ASSEMBLER documented in this encounter Plan of Treatment Not on filedocumented as of this encounter Visit Diagnoses Not on filedocumented in this encounter Additional Health Concerns Assessment Noted Time PHQ-9 Depression Total Score: 15 04/21/2018 1:00 PM CS T documented as of this encounter
--- OUTSIDE RECORDS SUMMARY | 2022-03-15 11:26 | XMS_ITS | Encounter Summary ---
:1970 Author Organization [facility] Address [address] [place] [address] Care Team Providers Name Role Phone Unavailable Primary Care Provider Unavailable Reason for Visit MRI/CAT/PET Scan (Routine) - Closed Specialty Diagnoses / Procedures Referred By Contact Refer red To Contact Radiology Diagnoses Pain Hip Left [facility] Procedures MR Pelvis without IV Contrast MR Hip Left without and with IV Contrast WA MRI LWR EXT JOINT WO/W CNTRST HC MRI LWR EXT JOINT WO/W CNTRST WA MRI LWR EXT JOINT WO/W CNTRST WA MRI PELVIS WO CNTRST HC MRI PELVIS WO CNTRST C.N.P. [place] MRI PELVIS WO CNTRST [address] [place] [phone] Referral ID Status Reason Start Date Expiration Date Visits Requ ested Visits Authorized [id number] Closed 08/23/2018 08/23/2019 1 1 Encounter Details Date Type Department Care Team Description 08/25/2018 Hospital Encounter Department of Velma Munson Pa in Hip Left Radiology, Luzmaria ALVES C.N.P. [facility], in [address] [place] [address] [place] [phone] [place], [place] [phone] (Wo rk) [phone] Social History Tobacco Use Types Packs/Day Years [...] 11/16/2021 organizations such as rastafarian groups, unions, fraCode Kingdoms or athletic groups, or school groups? How [...] that observed on the MRI dated 09/21/2017. Jorge Polo APRNN.P. IMG MRI PROCEDURES documented in this encounter Visit Diagnoses Diagnosis Pain Hip Left documented in this encounter Additional Health Concerns Assessment Noted Time PHQ-9 Depression Total Score: 15 04/21/2018 1:00 PM CS T documented as of this encounter
--- OUTSIDE RECORDS SUMMARY | 2022-03-15 11:26 | XMS_ITS | Encounter Summary ---
:1970 Author Organization [facility] Address [address] [place] [address] Care Team Providers Name Role Phone Unavailable Primary Care Provider Unavailable Reason for Referral Outpatient (Routine) - Closed Specialty Diagnoses / Procedures Referred By Contact Refer red To Contact Diagnoses Hyperpigmentation Dayana Sweeney M.D. [facility] Procedures JOSÉ MIGUEL Phototherapy - UVA/UVB - MED Photosensitivity testing [address] [place] [phone] Referral ID Status Reason Start Date Expiration Date Visits Requ ested Visits Authorized [id number] Closed 07/03/2018 07/03/2019 2 2 RER WOOD PRESERVING PLANT Encounter Details Date Type Department Care Team Description 07/03/2018 Clinical Communication Department of Dayana Sweeney M.D. [place], [place] [address] [place] [address] 200 [place] [phone] Social History Tobacco Use Types Packs/Day Years [...]
--- OUTSIDE RECORDS SUMMARY | 2022-03-15 11:26 | XMS_ITS | Encounter Summary ---
:1970 Author Organization [facility] Address [address] [place] [address] Care Team Providers Name Role Phone Unavailable [...] 12:00 Result s for this EXAM PM COMPUTATIONAL THEORY SCIENTIST procedure are i n the results section. documented in this encounter Results Face 507-Dermatology Image Exam (06/14/2018 12:00 PM COMPUTATIONAL THEORY SCIENTIST) Specimen (Source) Anatomical Collection Method Collection Time Re ceived Time Location / / Volume Laterality 06/14/2018 12:00 PM COMPUTATIONAL THEORY SCIENTIST Narrative IIMS - 06/14/2018 3:44 PM COMPUTATIONAL THEORY SCIENTIST This order has been created and auto-finalized [...]
--- OUTSIDE RECORDS SUMMARY | 2022-03-15 11:26 | XMS_ITS | Encounter Summary ---
:1970 Author Organization [facility] Address [address] [place] [address] Care Team Providers Name Role Phone Unavailable Primary Care Provider Unavailable Reason for Visit Outpatient (Routine) - Closed Specialty Diagnoses / Procedures Referred By Contact Refer red To Contact Diagnoses Hyperpigmentation Dayana Sweeney M.D. [facility] Procedures JOSÉ MIGUEL Phototherapy - UVA/UVB - MED Photosensitivity testing [address] [place] [phone] Referral ID Status Reason Start Date Expiration Date Visits Requ ested Visits Authorized [id number] Closed 07/03/2018 07/03/2019 2 2 Encounter Details Date Type Department Care Team Description 08/21/2018 Clinical Support Department of Daayna Sweeney M.D. [address] [place] [phone] Hyperpigmentation Dermatology in Cynthia Blackburn R.N. [address] [place] [phone] [place], [place] [address] [place] [phone] Social History Tobacco Use Types Packs/Day Years [...]
--- OUTSIDE RECORDS SUMMARY | 2022-03-15 11:26 | XMS_ITS | Encounter Summary ---
:1970 Author Organization [facility] Address [address] [place] [address] Care Team Providers Name Role Phone Unavailable Primary Care Provider Unavailable Reason for Visit Reason Comments Med Refill Encounter Details Date Type Department Care Team Description 06/30/2018 [facility] Med Refill [place], [place] [address] [facility] [address] [place] [address] [place] [phone] Social History Tobacco Use Types Packs/Day Years [...] and send the refill to her pharmacy. ER MANAGEMENT SPECIALIST documented in this encounter Plan of Treatment Not on filedocumented as of this encounter Visit Diagnoses Not on filedocumented in this encounter Additional Health Concerns Assessment Noted Time PHQ-9 Depression Total Score: 15 04/21/2018 1:00 PM CS T documented as of this encounter
--- OUTSIDE RECORDS SUMMARY | 2022-03-15 11:26 | XMS_ITS | Encounter Summary ---
:1970 Author Organization [facility] Address [address] [place] [address] Care Team Providers Name Role Phone Unavailable Primary Care Provider Unavailable Encounter Details Date Type Department Care Team Description 08/12/2018 Documentation [facility] [place] [address] [facility] [address] [place] [address] [phone] (Wo rk) Social History Tobacco Use Types [...]
--- OUTSIDE RECORDS SUMMARY | 2022-03-15 11:26 | XMS_ITS | Encounter Summary ---
:1970 Author Organization [facility] Address [address] [place] [address] Care Team Providers Name Role Phone Unavailable Primary Care Provider Unavailable Reason for Visit Reason Onset Date Comments Joint pain and tingling in fingers 06/08/2018 Encounter Details Date Type Department Care Team Description 06/08/2018 Clinical Division of Velma Munson Joint pain a nd Communication Rheumatology in , RENAL SOCIAL WORKER, C.N.P. tingling in [place], [place] [address] fingers [address] [place] [address] [phone] Social History Tobacco Use Types Packs/Day Years [...] Munson APRN, C.N.P. - 06/09/2018 5:13 PM SALES PROPERTY MANAGER Prednisone burst and taper was prescribed to patients preferred pharmacy. S PROPERTY MANAGER Telephone Encounter - Sawyer Nicholson R.N. - [...] references were used: provider Velma Munson CNP S PROPERTY MANAGER Telephone Encounter - Velma Munson APRN, C.N.P. - 06/09/2018 10:23 AM SALES PROPERTY MANAGER Please call patient and see if it is more carpal tunnel. It sounds like she is in a flare. She may need prednisone. S PROPERTY MANAGER Telephone Encounter - Violetta Mendieta - 06/08/2018 10:43 AM CST Patient called. For the last 4 days, patient has had pain and tingling in her fingers in both hands and pain in all of her joints are they are very painful. S PROPERTY MANAGER documented in this encounter Plan of Treatment Not on filedocumented as of this encounter Visit Diagnoses Not on filedocumented in this encounter Additional Health Concerns Assessment Noted Time PHQ-9 Depression Total Score: 15 04/21/2018 1:00 PM CS T documented as of this encounter
--- OUTSIDE RECORDS SUMMARY | 2022-03-15 11:26 | XMS_ITS | Encounter Summary ---
:1970 Author Organization [facility] Address [address] [place] [address] Care Team Providers Name Role Phone Unavailable Primary Care Provider Unavailable Reason for Visit Reason Comments Med Refill Encounter Details Date Type Department Care Team Description 07/11/2018 Refill Division of Rheumatology in Smita Munson sa, APRN, Med Refill [place], [place] C.N.P. [address] [facility] [address] [place] [address] [place] [address] [phone] (Wo rk) Social History Tobacco Use Types [...] Telephone Encounter - Sawyer Nicholson RLennoxN. - 07/18/2018 8:14 AM CDT Per 07/10/18 [...]
--- OUTSIDE RECORDS SUMMARY | 2022-03-15 11:26 | XMS_ITS | Encounter Summary ---
:1970 Author Organization [facility] Address [address] [place] [address] Care Team Providers Name Role Phone Unavailable Primary Care Provider Unavailable Encounter Details Date Type Department Care Team Description 08/12/2018 Orders Only Department of Vascular Newton Powell [facility] [address] [facility] [address] [place] [address] [phone] (Wo rk) Social History Tobacco Use Types [...]
--- OUTSIDE RECORDS SUMMARY | 2022-03-15 11:26 | XMS_ITS | Encounter Summary ---
:1970 Author Organization [facility] Address [address] [place] [address] Care Team Providers Name Role Phone Unavailable Primary Care Provider Unavailable Reason for Visit Reason Comments Med Refill Encounter Details Date Type Department Care Team Description 07/21/2018 Refill Division of Rheumatology in Smita Munson sa, APRN, Med Refill [place], [place] C.N.P. [address] [facility] [address] [place] [address] [place] [address] [phone] (Wo rk) Social History Tobacco Use Types [...] or slept in a fpc (including now)? Sex Assigned at Date Recorded Female 01/25/2018 11:49 AM CDT documented as of this encounter Plan of Treatment Not on filedocumented as of this encounter Visit Diagnoses Not on filedocumented in this encounter Additional Health Concerns Assessment Noted Time PHQ-9 Depression Total Score: 15 04/21/2018 1:00 PM CS T documented as of this encounter
--- OUTSIDE RECORDS SUMMARY | 2022-03-15 11:26 | XMS_ITS | Encounter Summary ---
:[address] [facility] Address [address] [place] [address] Care Team Providers Name Role Phone Unavailable Primary Care Provider Unavailable Encounter Details Date Type Department Care Team Description 08/17/2018 Clinical Communication Department of Son Moses Dermatology in , R.N. [place], [place] [address] [facility] [address] [place] [address] Social History Tobacco Use Types Packs/Day Years [...] Miscellaneous Notes Telephone Encounter - Son Moses RDeshawn. - 08/17/2018 11:01 AM CDT HISTORY OF [...]
--- OUTSIDE RECORDS SUMMARY | 2022-03-15 11:26 | XMS_ITS | Encounter Summary ---
:1970 Author Organization [facility] Address [address] [place] [address] Care Team Providers Name Role Phone Unavailable Primary Care Provider Unavailable Encounter Details Date Type Department Care Team Description 08/22/2018 Hospital Encounter Department of Velma Munson Laboratory Medicine Lana, LONG, C.N .P. Inflammatory (HCC) and Pathology, [address] [place] [address] in [facility] [address] [place] [phone] [place] [address] (Work) [place], [place] [phone] [address] (Fax) [phone] Social History Tobacco Use Types Packs/Day Years [...] AST (Aspartate Aminotransferase) (08/22/2018 3:25 PM CDT) [facility] Method Time Signature Aspartate 17 8 - 43 08/22/2018 [facility] Aminotransferase U/L 4:25 PM CDT LABORATORIE S - (AST), S [facility] Specimen Anatomical Collection Method Collection Time Receive d Time (Source) Location / / Volume Laterality Blood (Blood, 08/22/2018 3:25 PM 08/23/19 19 3:46 Venous) CDT PM CDT Karlene Polo APRN.N.P. LAB BLOOD ADD-ON Performing Organization Address City/[facility] Code Phon e Number [facility] LABORATORIES - [address] [place] [address] 05 [facility] Creatinine with Estimated GFR (08/22/2018 3:25 PM CDT) Analysis Performed At Patho logist Time Signature Creatinine 0.86 0.59 - 08/22/2018 [facility] 1.04 mg/dL 4:25 PM CDT LABORATORIES - [facility] eGFR-Non 81 >=60 08/22/2018 [facility] Black/ mL/min/BSA 4:25 PM CDT LABORATORIES - [facility] Comment: ----ADDITIONAL INFORMATION---- Estimated GFR calculated using the 2009 CKD_EPI creatinine equation. eGFR-Black/ >90 >=60 mL/min/BSA 08/22/2018 4:25 [facility] Venezuelan PM CDT LABORATORIES - [facility] Comment: ----ADDITIONAL INFORMATION---- Estimated GFR calculated using the 2009 CKD_EPI creatinine equation. Specimen Anatomical Collection Method Collection Time Receive d Time (Source) Location / / Volume Laterality Blood (Blood, 08/22/2018 3:25 PM 08/23/19 19 3:46 Venous) CDT PM CDT Velma Munson APRN, C.N.P. LAB BLOOD ADD-ON Performing Organization Address City/[facility] Code Phon e Number [facility] LABORATORIES - 200 [place], [place] [address] [facility] CRP (C-Reactive Protein) (08/22/2018 3:25 PM CDT) P athologist Signature C-Reactive 3.2 <=8.0 mg/L 08/22/2018 [facility] Protein (CRP), 4:25 PM CDT LABORATORIES - [facility] Specimen Anatomical Collection Method Collection Time Receive d Time (Source) Location / / Volume Laterality Blood (Blood, 08/22/2018 3:25 PM 08/23/19 19 3:46 Venous) CDT PM CDT Jorge Polo APRNN.P. LAB BLOOD ADD-ON Performing Organization Address City/[facility]/ZIP Code Phon e Number [facility] LABORATORIES - [address] [place] [address] [facility] Sedimentation Rate (08/22/2018 3:25 PM CDT) [facility] Method Time Signature Sedimentation 2 0 - 29 08/22/2018 [facility] Rate, B mm/1 h 5:00 PM CDT LABORATORIES - [facility] Specimen Anatomical Collection Method Collection Time Receive d Time (Source) Location / / Volume Laterality Blood (Blood, 08/22/2018 3:25 PM 08/23/19 19 3:46 Venous) CDT PM CDT Jorge Polo APRNN.P. LAB BLOOD ADD-ON Performing Organization Address [facility] Phon e Number [facility] LABORATORIES - [address] [place] [address] [facility] CBC with Differential, Blood (08/22/2018 3:25 PM CDT) [facility] Method Time Signature Hemoglobin 14.6 11.6 - 08/22/2018 [facility] 15.0 g/dL 3:53 PM CDT LABORATORIES - [facility] Hematocrit 43.9 35.5 - 08/22/2018 [facility] 44.9 % 3:53 PM CDT LABORATORIES - [facility] Erythrocytes 5.13 3.92 - 08/22/2018 [facility] 5.13 3:53 PM CDT LABORATORIES - x10(12)/L [facility] MCV 85.6 78.2 - 08/22/2018 [facility] 97.9 fL 3:53 PM CDT LABORATORIES - [facility] RBC Distrib Width 13.7 12.2 - 08/22/2018 [facility] 16.1 % 3:53 PM CDT LABORATORIES - [facility] Platelet Count 256 157 - 371 08/22/2018 [facility] x10(9)/L 3:53 PM CDT LABORATORIES - [facility] Leukocytes 7.4 3.4 - 9.6 08/22/2018 [facility] x10(9)/L 3:53 PM CDT LABORATORIES - [facility] Neutrophils 5.16 1.56 - 08/22/2018 [facility] 6.45 3:53 PM CDT LABORATORIES - x10(9)/L [facility] Lymphocytes 1.73 0.95 - 08/22/2018 [facility] 3.07 3:53 PM CDT LABORATORIES - x10(9)/L [facility] Monocytes 0.43 0.26 - 08/22/2018 [facility] 0.81 3:53 PM CDT LABORATORIES - x10(9)/L [facility] Eosinophils 0.03 0.03 - 08/22/2018 [facility] 0.48 3:53 PM CDT LABORATORIES - x10(9)/L [facility] Basophils 0.03 0.01 - 08/22/2018 [facility] 0.08 3:53 PM CDT LABORATORIES - x10(9)/L [facility] Specimen Anatomical Collection Method Collection Time Receive d Time (Source) Location / / Volume Laterality Blood (Blood, 08/22/2018 3:25 PM 08/23/19 19 3:46 Venous) CDT PM CDT Karlene Polo APRN.N.P. LAB BLOOD ADD-ON Performing Organization Address City/State/ZIP Code Phon e Number [facility]ATORIES - [address] [place], [place] [address] [facility] documented in this encounter Visit Diagnoses Diagnosis Arthritis Inflammatory (HCC) documented in this encounter Additional Health Concerns Assessment Noted Time PHQ-9 Depression Total Score: 15 04/21/2018 1:00 PM CS T documented as of this encounter
--- OUTSIDE RECORDS SUMMARY | 2022-03-15 11:26 | XMS_ITS | Encounter Summary ---
:1970 Author Organization [facility] Address [address] [place] [address] Care Team Providers Name Role Phone Unavailable Primary Care Provider Unavailable Encounter Details Date Type Department Care Team Description 06/09/2018 Orders Only Division of Rheumatology in Smita Munson [place], [place] PULVERIZING AND SIFTING OPERATOR, C.N.P. [address] [facility] [address] [place], [place] [phone] [place], [place] [phone] (Wo rk) Social History Tobacco Use Types [...]
--- OUTSIDE RECORDS SUMMARY | 2022-03-15 11:26 | XMS_ITS | Encounter Summary ---
:1970 Author Organization [facility] Address [address] [place] [address] Care Team Providers Name Role Phone Unavailable Primary Care Provider Unavailable Encounter Details Date Type Department Care Team Description 05/19/2018 Hospital Encounter Department of Velma Munson Pa in Low Back Radiology, Luzmaria ALVES C.N.P. [facility], in [address] [place] [address] [place] [address] [place], [place] [phone] (Wo rk) [phone] Social History Tobacco Use Types Packs/Day Years [...] or this PELVIS BILATERAL (most inpatients AM DECAL TRANSFERRER procedu re are in MINIMUM 5 VIEWS and all the results outpatients) section. documented in this encounter Results DX Hips and Pelvis Bilateral 5+ Views (05/19/2018 10:22 AM DECAL TRANSFERRER) Anatomical Region Laterality Modality Lower Extremity, Pelvis, Hip, Musculoskeletal RST LOS, Bilat eral Digital Radiography Musculoskeletal ARZ LOS, Muskuloskeletal FLA LOS Specimen (Source) Anatomical Collection Method Collection Time Re ceived Time Location / / Volume Laterality 05/19/2018 10:28 AM DECAL TRANSFERRER Impressions 05/19/2018 10:29 AM DECAL TRANSFERRER IMPRESSION: ??Minimal scattered degenerative changes of the pelvis and both hips. Right femoral neck bone island. IUD. Lap aroscopic adjustable gastric band, port and tube is partially seen. Narrative 05/19/2018 10:29 AM DECAL TRANSFERRER EXAM: ??DX HIPS AND PELVIS BILATERAL 5+ [...] and tube is partially seen. Velma Munson APRN C.N.P. IMG DIAGNOSTIC IMAGING P ROCEDURES documented in this encounter Visit Diagnoses Diagnosis Pain Low Back Unspecified documented in this encounter Additional Health Concerns Assessment Noted Time PHQ-9 Depression Total Score: 15 04/21/2018 1:00 PM CS T documented as of this encounter
--- OUTSIDE RECORDS SUMMARY | 2022-03-15 11:26 | XMS_ITS | Encounter Summary ---
:1970 Author Organization [facility] Address [address] [place] [address] Care Team Providers Name Role Phone Unavailable Primary Care Provider Unavailable Reason for Visit Reason Comments Patch Testing Encounter Details Date Type Department Care Team Description 08/23/2018 Clinical Support Department of Dayana Sweeney M.D. [address] [place] [address] Hyperpigmentation Dermatology in [facility], Amanda Gonzales R.N. [address] [place] [address] [place], [place] [address] [place] [phone] Social History Tobacco Use Types Packs/Day Years [...] test removal and day 3 reading. Supervising senior analytic consultant: Mandy Jennings MD ([phone]). Ordering physician: Dayana [place] MD ([phone]). Reviewed instructions to keep the patch test area dry and not to apply creams or lotions to this area. Teaching provided to patient. Barriers to learning identified as none. Preferred learning style is listening. Patient educated about patch testing per patient education pamphlet Patch Testing [id number].Teaching methods included discussion and printed material. Evaluation [...]
--- OUTSIDE RECORDS SUMMARY | 2022-03-15 11:26 | XMS_ITS | Encounter Summary ---
:1970 Author Organization [facility] Address [address] [place] [address] Care Team Providers Name Role Phone Unavailable Primary Care Provider Unavailable Reason for Visit Reason Onset Date Comments pain 05/19/2018 p1 05/19/2018 Encounter Details Date Type Department Care Team Description 05/19/2018 Clinical Communication Division of Velma Munson in; p1 Rheumatology in L, DISEASE CASE MANAGER, C.N.P. [place], [place] [address] [place] [address] [address] [place] [address] [phone] Social History Tobacco Use Types Packs/Day Years [...] Nano Gomes R.N. - 05/19/2018 3:48 PM HVAC MECHANICAL ENGINEER INFORMATION DISCUSSED Patient was relayed Velma Munson MEDICAL ADVISOR message from today 05/19/2018. PLAN Disposition/Recommendation:Patient will do as recommended and no improvements by Tuesday or Tuesday she will call back. Education: patient/caller able to teach back Caller agreeable to plan of care: yes The following references were used: nursing clinical judgement MECHANICAL ENGINEER Telephone Encounter - Velma Munson APRN, C.N.P. - 05/19/2018 3:42 PM HVAC MECHANICAL ENGINEER Please have her take ibuprofen 800 mg 3 times a day on a schedule to help with the pain. Velma MECHANICAL ENGINEER Telephone Encounter - Nena Delacruz - 05/19/2018 1:45 PM CST Patient called to report she saw Velma Munson this morning and was in a slight amount of pain however, after laying on xray table her lower back is now in a tremendous amount of pain, difficulty walking and moving around. MECHANICAL ENGINEER documented in this encounter Plan of Treatment Not on filedocumented as of this encounter Visit Diagnoses Not on filedocumented in this encounter Additional Health Concerns Assessment Noted Time PHQ-9 Depression Total Score: 15 04/21/2018 1:00 PM CS T documented as of this encounter
--- OUTSIDE RECORDS SUMMARY | 2022-03-15 11:27 | XMS_ITS | Encounter Summary ---
:1970 Author Organization [facility] Address [address] [place] [address] Care Team Providers Name Role Phone Unavailable Primary Care Provider Unavailable Reason for Visit Reason Comments Med Management Outpatient (Routine) - Closed Specialty Diagnoses / Procedures Referred By Contact Refer red To Contact Pharmacy Diagnoses Clinical [facility] Pharmacogenomics eConsult M.DLennox [address] [place] [phone] Referral ID Status Reason Start Date Expiration Date Visits Requ ested Visits Authorized [id number] Closed 04/17/2018 04/17/2019 1 1 Encounter Details Date Type Department Care Team Description 04/17/2018 Medication Department of Tamir Butcher Clinical R esearch Management Medical Genetics in A, MLennoxDLennox Exam [place], [address] [place] [address] [place] [address] [place], [place] [phone] (Work) [phone] Social History Tobacco Use Types Packs/Day Years [...] as a participant in IRB # [id number] (Utility of Pharmacogenomic Testing in Patients with [...] monitored. Yassine Leal Pharm.D., R.Ph. Clinical Pharmacist OL BUS TECHNICIAN documented in this encounter Plan of Treatment Not on filedocumented as of this encounter Visit Diagnoses Diagnosis Clinical Research Exam documented in this encounter Additional Health Concerns Assessment Noted Time PHQ-9 Depression Total Score: 15 04/21/2018 1:00 PM CS T documented as of this encounter
--- OUTSIDE RECORDS SUMMARY | 2022-03-15 11:27 | XMS_ITS | Encounter Summary ---
:1970 Author Organization [facility] Address [address] [place] [address] Care Team Providers Name Role Phone Unavailable Primary Care Provider Unavailable Encounter Details Date Type Department Care Team Description 01/09/2018 Clinical Communication Division of Velma Munson Rheumatology in , MARINE STRUCTURAL WELDER, C.N.P. [place], [place] [address] [facility] [address] [place] [phone] Social History Tobacco Use Types Packs/Day Years [...] that she had it done here at [place],but then remembered it was done at an outside facility. She will have those sent. She notes continuing headaches, with joint pain from hips down, rating a 3-5/10 on average, with some instances being 10/10. She notes that she missed her 11/11/17 appointment due to abdominal surgery with complications of infection in [place]. She does want a follow up with [...] the next steps. Please call her at [phone] before 1pm today or [phone] after 1pm today. Khushboo Berry documented in this encounter Plan of Treatment Not on filedocumented as of this encounter Visit Diagnoses Not on filedocumented in this encounter Additional Health Concerns Assessment Noted Time PHQ-9 Depression Total Score: 7 08/19/2017 3:59 PM CDT documented as of this encounter
--- OUTSIDE RECORDS SUMMARY | 2022-03-15 11:27 | XMS_ITS | Encounter Summary ---
:1970 Author Organization [facility] Address [address] [place] [address] Care Team Providers Name Role Phone Unavailable Primary Care Provider Unavailable Reason for Referral Outpatient (Routine) - Closed Specialty Diagnoses / Procedures Referred By Contact Refer red To Contact Rheumatology Velma Munson APRN, [facility] C[facility] [address] [place] [address] Referral ID Status Reason Start Date Expiration Date Visits Requ ested Visits Authorized [id number] Closed 05/19/2018 05/19/2019 1 1 [facility] Reason for Visit Appointment Request (Routine) - Closed Specialty Diagnoses / Procedures Referred By Contact Refer red To Contact Rheumatology Velma Munson APRN, C.N.P. [address] [place] [phone] Referral ID Status Reason Start Date Expiration Date Visits Requ ested Visits Authorized [id number] Closed 05/10/2018 05/10/2019 1 1 Encounter Details Date Type Department Care Team Description 05/19/2018 Office Visit Division of Velma Munson Pain Low Maddison k (Primary Dx); Rheumatology in LONG Schwartz, C.N.P. Arthritis Inflammatory (HCC); [place], [place] [address] [facility] High Risk Medication [address] [place] [address] [phone] Social History Tobacco Use Types Packs/Day Years [...] Comments Blood Pressure 125/89 05/19/2018 7:54 AM SEWER PIPE LAYER HELPER Pulse 74 05/19/2018 7:54 AM SEWER PIPE LAYER HELPER Temperature 36.9 ??C (98.4 ??F) 05/19/2018 7:54 AM SEWER PIPE LAYER HELPER Respiratory Rate - - Oxygen Saturation - - Inhaled Oxygen Concentration - - Weight 60.4 kg (133 lb 2.5 oz) 05/19/2018 7:54 AM SEWER PIPE LAYER HELPER Height 158.3 cm (5' 2.32) 05/19/2018 7:54 AM SEWER PIPE LAYER HELPER Body Mass Index 24.1 05/19/2018 7:54 AM SEWER PIPE LAYER HELPER documented in this encounter Progress Notes Velma [...] but on a reevaluation later by a bilingual sales representative the diagnosis was refuted. She later established care with a bilingual sales representative at [facility] who [...] Risk Medication She will see a local cnc set up operator for the Plaquenil eye screening in the [facility]. I will follow up with her in 3 months. I answered the patients questions to the best of my ability. The patient seemed pleased with our interaction. If she should have any additional questions or concerns. I have asked that she contact us at that time. R PIPE LAYER HELPER documented in this encounter Plan of Treatment Scheduled Referrals Name Type Priority Associated Order Schedule Diagnoses Rheumatology office Outpatient Referral Routine E xpected: visit (clinic) 08/17/2018 (Approximate), Expires: 05/19/2021 documented as of this encounter Results AST (Aspartate Aminotransferase) (08/22/2018 3:25 PM CDT) [facility] gist Method Time Signature Aspartate 17 8 - 43 08/22/2018 [facility] Aminotransferase U/L 4:25 PM CDT LABORATORIE S - (AST), S [facility] Specimen Anatomical Collection Method Collection Time Receive d Time (Source) Location / / Volume Laterality Blood (Blood, 08/22/2018 3:25 PM 08/23/19 19 3:46 Venous) CDT PM CDT Velma Munson APRN, C.N.P. LAB BLOOD ADD-ON Performing Organization Address City/State/ZIP Code Phon e Number [facility] LABORATORIES - 200 [place], [place] [address] [facility] Creatinine with Estimated GFR (08/22/2018 3:25 PM CDT) Analysis Performed At [facility] logist Time Signature Creatinine 0.86 0.59 - 08/22/2018 [facility] 1.04 mg/dL 4:25 PM CDT LABORATORIES - [facility] eGFR-Non 81 >=60 08/22/2018 [facility] Black/ mL/min/BSA 4:25 PM CDT LABORATORIES - [facility] Comment: ----ADDITIONAL INFORMATION---- Estimated GFR calculated using the 2009 CKD_EPI creatinine equation. eGFR-Black/ >90 >=60 mL/min/BSA 08/22/2018 4:25 [facility] Belarusian PM CDT [facility] Comment: ----ADDITIONAL INFORMATION---- Estimated GFR calculated using the 2009 CKD_EPI creatinine equation. Specimen Anatomical Collection Method Collection Time Receive d Time (Source) Location / / Volume Laterality Blood (Blood, 08/22/2018 3:25 PM 08/23/19 19 3:46 Venous) CDT PM CDT Karlene Polo APRN.N.P. LAB BLOOD ADD-ON Performing Organization Address City/[facility]/ZIP Code Phon e Number [facility] LABORATORIES - 200 [place] [address] [facility] CRP (C-Reactive Protein) (08/22/2018 3:25 PM CDT) P athologist Signature C-Reactive 3.2 <=8.0 mg/L 08/22/2018 [facility] Protein (CRP), 4:25 PM CDT [facility] Specimen Anatomical Collection Method Collection Time Receive d Time (Source) Location / / Volume Laterality Blood (Blood, 08/22/2018 3:25 PM 08/23/19 19 3:46 Venous) CDT PM CDT Velma Munson APRN, C.N.P. LAB BLOOD ADD-ON Performing Organization Address City/[facility]/ZIP Code Phon e Number [facility] - [address] [place] [address] [facility] Sedimentation Rate (08/22/2018 3:25 PM CDT) [facility] Method Time Signature Sedimentation 2 0 - 29 08/22/2018 [facility] Rate, B mm/1 h 5:00 PM CDT [facility] Specimen Anatomical Collection Method Collection Time Receive d Time (Source) Location / / Volume Laterality Blood (Blood, 08/22/2018 3:25 PM 08/23/19 19 3:46 Venous) CDT PM CDT Velma Munson APRN, Karlene.N.P. LAB BLOOD ADD-ON Performing Organization Address City/[facility]/ZIP Code Phon e Number [facility] LABORATORIES - [address] [place] [address] 05 [facility] CBC with Differential, Blood (08/22/2018 3:25 PM CDT) [facility] Method Time Signature Hemoglobin 14.6 11.6 - 08/22/2018 [facility] 15.0 g/dL 3:53 PM CDT LABORATORIES - [facility] Hematocrit 43.9 35.5 - 08/22/2018 [facility] 44.9 % 3:53 PM CDT LABORATORIES - [facility] Erythrocytes 5.13 3.92 - 08/22/2018 [facility] 5.13 3:53 PM CDT LABORATORIES - x10(12)/L [facility] MCV 85.6 78.2 - 08/22/2018 [facility] 97.9 fL 3:53 PM CDT LABORATORIES - [facility] RBC Distrib Width 13.7 12.2 - 08/22/2018 [facility] 16.1 % 3:53 PM CDT LABORATORIES - [facility] Platelet Count 256 157 - 371 08/22/2018 [facility] x10(9)/L 3:53 PM CDT LABORATORIES - [facility] Leukocytes 7.4 3.4 - 9.6 08/22/2018 [facility] x10(9)/L 3:53 PM CDT LABORATORIES - [facility] Neutrophils 5.16 1.56 - 08/22/2018 [facility] 6.45 3:53 PM CDT LABORATORIES - x10(9)/L [facility] Lymphocytes 1.73 0.95 - 08/22/2018 [facility] 3.07 3:53 PM CDT LABORATORIES - x10(9)/L [facility] Monocytes 0.43 0.26 - 08/22/2018 [facility] 0.81 3:53 PM CDT LABORATORIES - x10(9)/L [facility] Eosinophils 0.03 0.03 - 08/22/2018 [facility] 0.48 3:53 PM CDT LABORATORIES - x10(9)/L [facility] Basophils 0.03 0.01 - 08/22/2018 [facility] 0.08 3:53 PM CDT LABORATORIES - x10(9)/L [facility] Specimen Anatomical Collection Method Collection Time Receive d Time (Source) Location / / Volume Laterality Blood (Blood, 08/22/2018 3:25 PM 08/23/19 19 3:46 Venous) CDT PM CDT Velma Munson APRN C.N.P. LAB BLOOD ADD-ON Performing Organization Address City/State/ZIP Code Phon e Number [facility] LABORATORIES - [address] [place], [place] [address] [facility] DX Lumbar Spine 2-3 Views (05/19/2018 10:23 AM SEWER PIPE LAYER HELPER) Anatomical Region Laterality Modality Lumbar Spine, Musculoskeletal RST LOS, Neuroradiology N/A Digital Radiography ARZ LOS, Muskuloskeletal FLA LOS Specimen (Source) Anatomical Collection Method Collection Time Re ceived Time Location / / Volume Laterality 05/19/2018 10:30 AM SEWER PIPE LAYER HELPER Impressions 05/19/2018 10:30 AM SEWER PIPE LAYER HELPER IMPRESSION: ??Mild multilevel degenerative spondylosis. Slight wedging of T12. Cholecystectomy clips. IUD. Adjustable g astric band. Narrative 05/19/2018 10:30 AM SEWER PIPE LAYER HELPER EXAM: ??DX LUMBAR SPINE 2-3 VIEWS Procedure Note Richardson Packer M.D. - 05/19/2018For matting of this note might be different from the original. EXAM: DX LUMBAR SPINE 2-3 VIEWS IMPRESSION: Mild multilevel degenerative spondylosis. Slight wedging of T12. Cholecystectomy clips. IUD. Adjustable g astric band. Jorge Polo APRNN.P. IMG DIAGNOSTIC IMAGING P ROCEDURES DX Hips and Pelvis Bilateral 5+ Views (05/19/2018 10:22 AM SEWER PIPE LAYER HELPER) Anatomical Region Laterality Modality Lower Extremity, Pelvis, Hip, Musculoskeletal RST LOS, Bilat eral Digital Radiography Musculoskeletal ARZ LOS, Muskuloskeletal FLA LOS Specimen (Source) Anatomical Collection Method Collection Time Re ceived Time Location / / Volume Laterality 05/19/2018 10:28 AM SEWER PIPE LAYER HELPER Impressions 05/19/2018 10:29 AM SEWER PIPE LAYER HELPER IMPRESSION: ??Minimal scattered degenerative changes of the pelvis and both hips. Right femoral neck bone island. IUD. Lap aroscopic adjustable gastric band, port and tube is partially seen. Narrative 05/19/2018 10:29 AM SEWER PIPE LAYER HELPER EXAM: ??DX HIPS AND PELVIS BILATERAL 5+ [...] and tube is partially seen. Jorge Polo APRNNSandra IMG DIAGNOSTIC IMAGING P [...]
--- OUTSIDE RECORDS SUMMARY | 2022-03-15 11:27 | XMS_ITS | Encounter Summary ---
:1970 Author Organization [facility] Address [address] [place] [address] Care Team Providers Name Role Phone Unavailable [...]
--- OUTSIDE RECORDS SUMMARY | 2022-03-15 11:27 | XMS_ITS | Encounter Summary ---
:1970 Author Organization [facility] Address [address] [place] [address] Care Team Providers Name Role Phone Unavailable Primary Care Provider Unavailable Encounter Details Date Type Department Care Team Description 01/17/2018 Orders Only Division of Velma Munson Arthritis In azammatory Rheumatology in , GENERAL MANAGER LAND DEPARTMENT, C.N.P. ([facility]) (Primary Dx) [place], [place] [address] [facility] [address] [place] [phone] Social History Tobacco Use Types Packs/Day Years [...] (01/25/2018 9:21 AM CDT) [facility] Signature Creatinine 0.76 0.59 - 01/25/2018 [facility] 1.04 mg/dL 10:22 AM CDT LABORATORIES [facility] eGFR-Non >90 >=60 01/25/2018 [facility] Black/ mL/min/BSA 10:22 AM CDT LABORATORIES - [facility] Comment: ----ADDITIONAL INFORMATION---- Estimated GFR calculated using the 2009 CKD_EPI creatinine equation. eGFR-Black/ >90 >=60 mL/min/BSA 01/25/2018 10:2 2 [facility] CDT LABORATORIES [facility] Comment: ----ADDITIONAL INFORMATION---- Estimated GFR calculated using the 2009 CKD_EPI creatinine equation. Specimen Anatomical Collection Method Collection Time Receive d Time (Source) Location / / Volume Laterality Blood (Blood, 01/25/2018 9:21 AM 01/26/20 18 9:39 Venous) CDT AM CDT Velma Munson APRN CLennoxN.P. LAB BLOOD ADD-ON Performing Organization Address City/State/ZIP Code Phon e Number [facility] LABORATORIES - 200 [place], [place] [address] [facility] AST (Aspartate Aminotransferase) (01/25/2018 9:21 AM CDT) Patholo gist Method Time Signature Aspartate 13 8 - 43 01/25/2018 [facility] Aminotransferase U/L 10:22 AM LABORATORIES - (AST), S CDT [facility] Specimen Anatomical Collection Method Collection Time Receive d Time (Source) Location / / Volume Laterality Blood (Blood, 01/25/2018 9:21 AM 01/26/20 18 9:39 Venous) CDT AM CDT Jorge Polo APRNNLennoxP. LAB BLOOD ADD-ON Performing Organization Address City/[facility] Code Phon e Number [facility] LABORATORIES - [address] [place] [address] [facility] CRP (C-Reactive Protein) (01/25/2018 9:21 AM CDT) P athologist Signature C-Reactive 3.0 <=8.0 mg/L 01/25/2018 [facility] Protein (CRP), 10:22 AM CDT LABORATORIES - [facility] Specimen Anatomical Collection Method Collection Time Receive d Time (Source) Location / / Volume Laterality Blood (Blood, 01/25/2018 9:21 AM 01/26/20 18 9:39 Venous) CDT AM CDT Jorge Polo APRNN.P. LAB BLOOD ADD-ON Performing Organization Address [facility] Phon e Number [facility] - [address] [place] [address] [facility] Sedimentation Rate (01/25/2018 9:21 AM CDT) [facility] Method Time Signature Sedimentation 3 0 - 29 01/25/2018 [facility] Rate, B mm/1 h 11:12 AM CDT [facility] Specimen Anatomical Collection Method Collection Time Receive d Time (Source) Location / / Volume Laterality Blood (Blood, 01/25/2018 9:21 AM 01/26/20 18 9:39 Venous) CDT AM CDT Jorge oPlo APRNN.P. LAB BLOOD ADD-ON Performing Organization Address City/[facility] Code Phon e Number [facility] LABORATORIES - [address] [place] [address] [facility] CBC with Differential, Blood (01/25/2018 9:21 AM CDT) [facility] gist Method Time Signature Hemoglobin 13.9 11.6 - 01/25/2018 [facility] 15.0 g/dL 10:19 AM CDT [facility] Hematocrit 42.0 35.5 - 01/25/2018 [facility] 44.9 % 10:19 AM CDT [facility] Erythrocytes 4.95 3.92 - 01/25/2018 [facility] 5.13 10:19 AM CDT LABORATORIES - x10(12)/L [facility] MCV 84.8 78.2 - 01/25/2018 [facility] 97.9 fL 10:19 AM CDT LABORATORIES - [facility] RBC Distrib Width 14.0 12.2 - 01/25/2018 [facility] 16.1 % 10:19 AM CDT LABORATORIES - [facility] Platelet Count 274 157 - 371 01/25/2018 [facility] x10(9)/L 10:19 AM CDT LABORATORIES - [facility] Leukocytes 6.5 3.4 - 9.6 01/25/2018 [facility] x10(9)/L 10:19 AM CDT LABORATORIES - [facility] Neutrophils 4.55 1.56 - 01/25/2018 [facility] 6.45 10:19 AM CDT LABORATORIES - x10(9)/L [facility] Lymphocytes 1.46 0.95 - 01/25/2018 [facility] 3.07 10:19 AM CDT LABORATORIES - x10(9)/L [facility] Monocytes 0.39 0.26 - 01/25/2018 [facility] 0.81 10:19 AM CDT LABORATORIES - x10(9)/L [facility] Eosinophils 0.04 0.03 - 01/25/2018 [facility] 0.48 10:19 AM CDT LABORATORIES - x10(9)/L [facility] Basophils <0.03 0.01 - 01/25/2018 [facility] 0.08 10:19 AM CDT LABORATORIES - x10(9)/L [facility] Specimen Anatomical Collection Method Collection Time Receive d Time (Source) Location / / Volume Laterality Blood (Blood, 01/25/2018 9:21 AM 01/26/20 18 9:39 Venous) CDT AM CDT Velma Munson APRN C.N.P. LAB BLOOD ADD-ON Performing Organization Address City/State/ZIP Code Phon e Number [facility] LABORATORIES - [address] [place], [place] [address] [facility] documented in this encounter Visit Diagnoses Diagnosis Arthritis Inflammatory (HCC) - Primary documented in this encounter Additional Health Concerns Assessment Noted Time PHQ-9 Depression Total Score: 7 08/19/2017 3:59 PM CDT documented as of this encounter
--- OUTSIDE RECORDS SUMMARY | 2022-03-15 11:27 | XMS_ITS | Encounter Summary ---
:1970 Author Organization [facility] Address [address] [place] [address] Care Team Providers Name Role Phone Unavailable Primary Care Provider Unavailable Reason for Referral Outpatient (Routine) - Closed Specialty Diagnoses / Procedures Referred By Contact Refer red To Contact Diagnoses Depression Anxiety Gigi Mcbride M.D. [facility] Procedures ECG 12 Lead VT EKG 12 LEAD TRACE ONLY VT EKG I&R ONLY [address] [place] [phone] Referral ID Status Reason Start Date Expiration Date Visits Requ ested Visits Authorized [id number] Closed 04/05/2018 04/05/2019 1 1 [facility] Reason for Visit Outpatient (Routine) - Closed Specialty Diagnoses / Procedures Referred By Contact Refer red To Contact Sleep Medicine Diagnoses Insomnia Bony Jackson M.D. [facility] [address] [place], [place] [phone] Referral ID Status Reason Start Date Expiration Date Visits V isits Requested Authorized [id number] Closed Specialty 03/06/2018 03/06/2019 1 1 Services Required Encounter Details Date Type Department Care Team Description 04/05/2018 Office Visit [facility] Gigi Mcbride, Insomnia (Primary Dx); Medicine in [place] Depression Anxiety [place] [address] [facility] [address] [place] [phone] Social History Tobacco Use Types Packs/Day Years [...] Comments Blood Pressure 116/89 04/05/2018 11:06 AM BOW STAPLER Pulse 88 04/05/2018 11:06 AM BOW STAPLER Temperature - - Respiratory Rate - - Oxygen Saturation - - Inhaled Oxygen Concentration - - Weight 60.9 kg (134 lb 4.2 oz) 04/05/2018 11:06 AM BOW STAPLER Height 157.7 cm (5' 2.09) 04/05/2018 11:06 AM BOW STAPLER Body Mass Index 24.49 04/05/2018 11:06 AM BOW STAPLER documented in this encounter Progress Notes Gigi [...] is 14 and her score on the LIIVA- 7 questionnaire is 8, suggesting moderate residual [...] the patient for a few sessions at [place] [address]. Otherwise, I can arrange for her to [...] she could have these tests done in [place], but that turned-out to be difficult. 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 As [id number] diphenhydramine (Benadryl) seems to help, however, with [...] [address] Job ID: [id number]/rah STAPLER documented in this encounter Plan of Treatment Not on filedocumented as of this encounter Results ECG 12 Lead (04/05/2018 1:04 PM BOW STAPLER) P athologist Signature Ventricular Rate 98 BPM MUSE ECG/Min VT Interval 158 ms MUSE QRSD Interval 106 ms MUSE QT Interval 372 ms MUSE QTC Interval 475 ms MUSE P Applegate 68 degrees MUSE R Applegate -13 degrees MUSE T Wave Applegate 58 degrees MUSE Specimen Anatomical Collection Method Collection Time Receive d Time (Source) Location / / Volume Laterality 04/05/2018 1:04 PM 8 1:12 BOW [facility]AP[facility] PM BOW [facility] Impressions MUSE - 04/05/2018 1:12 PM BOW STAP[facility]ER Normal sinus rhythm Normal ECG No previous [...] Amitriptyline and Nortriptyline Level (04/05/2018 12:51 PM BOW STAPLER) [facility] gist Method Time Signature Amitriptyline 161 Not applicable 04/06/2018 [facility] ng/mL 6:18 PM BOW ST[facility] Nortriptyline 75 70 - 170 ng/mL 04/06/2018 [facility] 6:18 PM BOW [facility] Amitriptyline and 236 (H) 80 - 200 ng/mL 04/06/2018 [facility] Nortriptyline 6:18 PM BOW [facility] Comment: ----ADDITIONAL INFORMATION---- This test was developed and its performa nce characteristics determined by [facility] in a manner consistent with CLIA requirements. This test has not been cleared or approved by the [place] d and Drug Administration. Specimen Anatomical Collection Method Collection Time Receive d Time (Source) Location / / Volume Laterality Blood (Blood, 04/05/2018 12:51 04/06/2018 7:53 Venous) PM BOW STAPLER AM BOW STAP[facility] Gigi Mcbride M.D. LAB BLOOD NON ADD-ON Performing Organization Address City/State/ZIP Code Phon e Number [facility] [address] [place] [address] [facility] documented in this encounter Visit Diagnoses Diagnosis Insomnia - Primary Depression Anxiety documented in this encounter Additional Health Concerns Assessment Noted Time PHQ-9 Depression Total Score: 7 08/19/2017 3:59 PM CDT documented as of this encounter
--- OUTSIDE RECORDS SUMMARY | 2022-03-15 11:27 | XMS_ITS | Encounter Summary ---
:1970 Author Organization [facility] Address [address] [place] [address] Care Team Providers Name Role Phone Unavailable Primary Care Provider Unavailable Encounter Details Date Type Department Care Team Description 05/17/2018 Hospital Encounter Department of Velma Munson Laboratory Medicine Lana, LONG, C.N .P. Inflammatory (HCC) and Pathology, [address] [place] [address] in [facility] [address] [place] [phone] [place] [address] (Work) [place], [place] [phone] [phone] (Fax) [phone] Social History Tobacco Use Types Packs/Day Years [...] 3:16 Arthritis Res ults for this PM SENIOR LOAN OFFICER Inflammatory (HCC) procedure are in the results section. CBC WITH DIFFERENTIAL, B Routine 05/17/2018 3:16 Arthritis Results for this PM SENIOR LOAN OFFICER Inflammatory (HCC) procedure are in the results section. C-REACTIVE PROTEIN Routine 05/17/2018 3:16 Arthritis Result s for this (CRP), S/P PM SENIOR LOAN OFFICER Inflammatory (HCC) procedure are in the results section. ASPARTATE Routine 05/17/2018 3:16 Arthritis Results for this AMINOTRANSFERASE (AST), PM SENIOR LOAN OFFICER Inflammatory (HCC ) procedure are in S/P the results section. CREATININE WITH EGFR, Routine 05/17/2018 3:16 Arthritis Res ults for this S/P PM SENIOR LOAN OFFICER Inflammatory (HCC) procedure are in the results section. documented in this encounter Results CBC with Differential, Blood (05/17/2018 3:16 PM SENIOR LOAN OFFICER) [facility] Method Time Signature Hemoglobin 13.8 11.6 - 05/17/2018 [facility] 15.0 g/dL 3:52 PM SENIOR LOAN OFFICER LABORATORIES [facility] Hematocrit 41.4 35.5 - 05/17/2018 [facility] 44.9 % 3:52 PM SENIOR LOAN OFFICER LABORATORIES [facility] Erythrocytes 4.94 3.92 - 05/17/2018 [facility] 5.13 3:52 PM SENIOR LOAN OFFICER LABORATORIES - x10(12)/L [facility] MCV 83.8 78.2 - 05/17/2018 [facility] 97.9 fL 3:52 PM SENIOR LOAN OFFICER LABORATORIES - [facility] RBC Distrib Width 13.2 12.2 - 05/17/2018 [facility] 16.1 % 3:52 PM SENIOR LOAN OFFICER LABORATORIES - [facility] Platelet Count 260 157 - 371 05/17/2018 [facility] x10(9)/L 3:52 PM SENIOR LOAN OFFICER LABORATORIES - [facility] Leukocytes 7.9 3.4 - 9.6 05/17/2018 [facility] x10(9)/L 3:52 PM SENIOR LOAN OFFICER LABORATORIES - [facility] Neutrophils 5.55 1.56 - 05/17/2018 [facility] 6.45 3:52 PM SENIOR LOAN OFFICER LABORATORIES - x10(9)/L [facility] Lymphocytes 1.79 0.95 - 05/17/2018 [facility] 3.07 3:52 PM SENIOR LOAN OFFICER LABORATORIES - x10(9)/L [facility] Monocytes 0.49 0.26 - 05/17/2018 [facility] 0.81 3:52 PM SENIOR LOAN OFFICER LABORATORIES - x10(9)/L [facility] Eosinophils <0.03 0.03 - 05/17/2018 [facility] 0.48 3:52 PM SENIOR LOAN OFFICER LABORATORIES - x10(9)/L [facility] Basophils 0.03 0.01 - 05/17/2018 [facility] 0.08 3:52 PM SENIOR LOAN OFFICER LABORATORIES - x10(9)/L [facility] Specimen Anatomical Collection Method Collection Time Receive d Time (Source) Location / / Volume Laterality Blood (Blood, 05/17/2018 3:16 PM 05/17/19 19 3:35 Venous) SENIOR LOAN OFFICER PM SENIOR LOAN OFFICER Velma Munson APRN C.N.P. LAB BLOOD ADD-ON Performing Organization Address City/State/ZIP Code Phon e Number [facility] LABORATORIES - [address] [place], [place] [address] [facility] Creatinine with Estimated GFR (05/17/2018 3:16 PM SENIOR LOAN OFFICER) Analysis Performed At Patho logist Time Signature Creatinine 0.90 0.59 - 05/17/2018 [facility] 1.04 mg/dL 4:15 PM SENIOR LOAN OFFICER LABORATORIES - [facility] eGFR-Non 77 >=60 05/17/2018 [facility] Black/ mL/min/BSA 4:15 PM SENIOR LOAN OFFICER LABORATORIES - [facility] Comment: ----ADDITIONAL INFORMATION---- Estimated GFR calculated using the 2009 CKD_EPI creatinine equation. eGFR-Black/ 89 >=60 mL/min/BSA 05/17/2018 4:15 [facility] South African PM SENIOR LOAN OFFICER LABORATORIES - [facility] Comment: ----ADDITIONAL INFORMATION---- Estimated GFR calculated using the 2009 CKD_EPI creatinine equation. Specimen Anatomical Collection Method Collection Time Receive d Time (Source) Location / / Volume Laterality Blood (Blood, 05/17/2018 3:16 PM 05/17/19 19 3:34 Venous) SENIOR LOAN OFFICER PM SENIOR LOAN OFFICER Karlene Polo APRN.N.P. LAB BLOOD ADD-ON Performing Organization Address City/[facility]/ZIP Code Phon e Number [facility]ORATORIES - [address] [place] [address] 05 [facility] CRP (C-Reactive Protein) (05/17/2018 3:16 PM SENIOR LOAN OFFICER) P athologist Signature C-Reactive <3.0 <=8.0 mg/L 05/17/2018 [facility] Protein (CRP), 4:15 PM SENIOR LOAN OFFICER LABORATORIES - [facility] Specimen Anatomical Collection Method Collection Time Receive d Time (Source) Location / / Volume Laterality Blood (Blood, 05/17/2018 3:16 PM 05/17/19 19 3:34 Venous) SENIOR LOAN OFFICER PM SENIOR LOAN OFFICER Velma Munson APRN, C.N.P. LAB BLOOD ADD-ON Performing Organization Address City/[facility]/ZIP Code Phon e Number [facility]IES - [address] [place] [address] [facility] AST (Aspartate Aminotransferase) (05/17/2018 3:16 PM SENIOR LOAN OFFICER) Patholo gist Method Time Signature Aspartate 17 8 - 43 05/17/2018 [facility] Aminotransferase U/L 4:15 PM SENIOR LOAN OFFICER LABORATORIE S - (AST), [facility] Specimen Anatomical Collection Method Collection Time Receive d Time (Source) Location / / Volume Laterality Blood (Blood, 05/17/2018 3:16 PM 05/17/19 19 3:34 Venous) SENIOR LOAN OFFICER PM SENIOR LOAN OFFICER Velma Munson APRN, C.N.P. LAB BLOOD ADD-ON Performing Organization Address City/State/ZIP Code Phon e Number [facility]ATORIES - [address] [place] [address] [facility] Sedimentation Rate (05/17/2018 3:16 PM SENIOR LOAN OFFICER) [facility] gist Method Time Signature Sedimentation 5 0 - 29 05/17/2018 [facility] Rate, B mm/1 h 4:52 PM SENIOR LOAN OFFICER LABORATORIES - [facility] Specimen Anatomical Collection Method Collection Time Receive d Time (Source) Location / / Volume Laterality Blood (Blood, 05/17/2018 3:16 PM 05/17/19 19 3:35 Venous) SENIOR LOAN OFFICER PM SENIOR LOAN OFFICER Velma Munson APRN, C.N.P. LAB BLOOD ADD-ON Performing Organization Address City/State/ZIP Code Phon e Number [facility]ATORIES - [address] documented in this encounter Visit Diagnoses Diagnosis Arthritis Inflammatory (HCC) documented in this encounter Additional Health Concerns Assessment Noted Time PHQ-9 Depression Total Score: 15 04/21/2018 1:00 PM CS T documented as of this encounter
--- OUTSIDE RECORDS SUMMARY | 2022-03-15 11:27 | XMS_ITS | Encounter Summary ---
:1970 Author Organization [facility] Address [address] [place] [address] Care Team Providers Name Role Phone Unavailable Primary Care Provider Unavailable Reason for Visit Reason Onset Date Comments Pre-visit Testing Orders 05/10/2018 Encounter Details Date Type Department Care Team Description 05/10/2018 Clinical Division of Velma Munson Pre-visit Te sting Communication Rheumatology in [place], RF MANAGER, C.N.P. Orders [place], [place] [address] [facility] [address] [place] [id number] [phone] Social History Tobacco Use Types Packs/Day Years [...] Munson APRN, C.N.P. - 05/10/2018 5:02 PM SUB ASSEMBLY TEAM WORKER Lab order signed. Velma ASSEMBLY TEAM WORKER Telephone Encounter - Maddy Drummond - 05/10/2018 4:22 PM SUB ASSEMBLY TEAM WORKER I have pended labs for you when patient returns to see you on 05/19- she will be doing the labs on 05/17 when here for other appointments Thank you Maddy ASSEMBLY TEAM WORKER documented in this encounter Plan of Treatment Not on filedocumented as of this encounter Results CBC with Differential, Blood (05/17/2018 3:16 PM SUB ASSEMBLY TEAM WORKER) [facility] Method Time Signature Hemoglobin 13.8 11.6 - 05/17/2018 [facility] 15.0 g/dL 3:52 PM SUB ASSEMBLY TEAM WORKER LABORATORIES - [facility] Hematocrit 41.4 35.5 - 05/17/2018 [facility] 44.9 % 3:52 PM SUB ASSEMBLY TEAM WORKER LABORATORIES - [facility] Erythrocytes 4.94 3.92 - 05/17/2018 [facility] 5.13 3:52 PM SUB ASSEMBLY TEAM WORKER LABORATORIES - x10(12)/L [facility] MCV 83.8 78.2 - 05/17/2018 [facility] 97.9 fL 3:52 PM SUB ASSEMBLY TEAM WORKER LABORATORIES [facility] RBC Distrib Width 13.2 12.2 - 05/17/2018 [facility] 16.1 % 3:52 PM SUB ASSEMBLY TEAM WORKER LABORATORIES - [facility] Platelet Count 260 157 - 371 05/17/2018 [facility] x10(9)/L 3:52 PM SUB ASSEMBLY TEAM WORKER LABORATORIES - [facility] Leukocytes 7.9 3.4 - 9.6 05/17/2018 [facility] x10(9)/L 3:52 PM SUB ASSEMBLY TEAM WORKER LABORATORIES - [facility] Neutrophils 5.55 1.56 - 05/17/2018 [facility] 6.45 3:52 PM SUB ASSEMBLY TEAM WORKER LABORATORIES - x10(9)/L [facility] Lymphocytes 1.79 0.95 - 05/17/2018 [facility] 3.07 3:52 PM SUB ASSEMBLY TEAM WORKER LABORATORIES - x10(9)/L [facility] Monocytes 0.49 0.26 - 05/17/2018 [facility] 0.81 3:52 PM SUB ASSEMBLY TEAM WORKER LABORATORIES - x10(9)/L [facility] Eosinophils <0.03 0.03 - 05/17/2018 [facility] 0.48 3:52 PM SUB ASSEMBLY TEAM WORKER LABORATORIES - x10(9)/L [facility] Basophils 0.03 0.01 - 05/17/2018 [facility] 0.08 3:52 PM SUB ASSEMBLY TEAM WORKER LABORATORIES - x10(9)/L [facility] Specimen Anatomical Collection Method Collection Time Receive d Time (Source) Location / / Volume Laterality Blood (Blood, 05/17/2018 3:16 PM 05/17/19 19 3:35 Venous) SUB ASSEMBLY TEAM WORKER PM SUB ASSEMBLY TEAM WORKER Velma Munson APRN C.N.P. LAB BLOOD ADD-ON Performing Organization Address City/State/ZIP Code Phon e Number [facility]ORATORIES - 200 [place], [place] [address] [facility] Creatinine with Estimated GFR (05/17/2018 3:16 PM SUB ASSEMBLY TEAM WORKER) Analysis Performed At [facility] Time Signature Creatinine 0.90 0.59 - 05/17/2018 [facility] 1.04 mg/dL 4:15 PM SUB ASSEMBLY TEAM WORKER LABORATORIES [facility] eGFR-Non 77 >=60 05/17/2018 [facility] Black/ mL/min/BSA 4:15 PM SUB ASSEMBLY TEAM WORKER LABORATORIES [facility] Comment: ----ADDITIONAL INFORMATION---- Estimated GFR calculated using the 2009 CKD_EPI creatinine equation. eGFR-Black/ 89 >=60 mL/min/BSA 05/17/2018 4:15 [facility] Montserratian PM SUB ASSEMBLY TEAM WORKER LABORATORIES [facility] Comment: ----ADDITIONAL INFORMATION---- Estimated GFR calculated using the 2009 CKD_EPI creatinine equation. Specimen Anatomical Collection Method Collection Time Receive d Time (Source) Location / / Volume Laterality Blood (Blood, 05/17/2018 3:16 PM 05/17/19 19 3:34 Venous) SUB ASSEMBLY TEAM WORKER PM SUB ASSEMBLY TEAM WORKER Karlene Polo APRN.N.P. LAB BLOOD ADD-ON Performing Organization Address City/State/ZIP Code Phon e Number [facility]ORATORIES - [address] [place] [address] [facility] CRP (C-Reactive Protein) (05/17/2018 3:16 PM SUB ASSEMBLY TEAM WORKER) P athologist Signature C-Reactive <3.0 <=8.0 mg/L 05/17/2018 [facility] Protein (CRP), 4:15 PM SUB ASSEMBLY TEAM WORKER LABORATORIES - [facility] Specimen Anatomical Collection Method Collection Time Receive d Time (Source) Location / / Volume Laterality Blood (Blood, 05/17/2018 3:16 PM 05/17/19 19 3:34 Venous) SUB ASSEMBLY TEAM WORKER PM SUB ASSEMBLY TEAM WORKER Velma Munson APRN, Karlene.N.P. LAB BLOOD ADD-ON Performing Organization Address City/[facility]/ZIP Code Phon e Number [facility] LABORATORIES - [address] [place] [address] [facility] AST (Aspartate Aminotransferase) (05/17/2018 3:16 PM SUB ASSEMBLY TEAM WORKER) [facility] Method Time Signature Aspartate 17 8 - 43 05/17/2018 [facility] Aminotransferase U/L 4:15 PM SUB ASSEMBLY TEAM WORKER LABORATORIE S - (AST), S [facility] Specimen Anatomical Collection Method Collection Time Receive d Time (Source) Location / / Volume Laterality Blood (Blood, 05/17/2018 3:16 PM 05/17/19 19 3:34 Venous) SUB ASSEMBLY TEAM WORKER PM SUB ASSEMBLY TEAM WORKER Velma Munson APRN, C.N.P. LAB BLOOD ADD-ON Performing Organization Address City/[facility]/ZIP Code Phon e Number [facility]ATORIES - [address] [place] [address] [facility] Sedimentation Rate (05/17/2018 3:16 PM SUB ASSEMBLY TEAM WORKER) [facility] gist Method Time Signature Sedimentation 5 0 - 29 05/17/2018 [facility] Rate, B mm/1 h 4:52 PM SUB ASSEMBLY TEAM WORKER LABORATORIES - [facility] Specimen Anatomical Collection Method Collection Time Receive d Time (Source) Location / / Volume Laterality Blood (Blood, 05/17/2018 3:16 PM 05/17/19 19 3:35 Venous) SUB ASSEMBLY TEAM WORKER PM SUB ASSEMBLY TEAM WORKER Velma Munson APRN CLennoxN.P. LAB BLOOD ADD-ON Performing Organization Address City/State/ZIP Code Phon e Number [facility] LABORATORIES - [address] [place], [place] [address] [facility] documented in this encounter Visit Diagnoses Diagnosis Arthritis Inflammatory (HCC) - Primary documented in this encounter Additional Health Concerns Assessment Noted Time PHQ-9 Depression Total Score: 15 04/21/2018 1:00 PM CS T documented as of this encounter
--- OUTSIDE RECORDS SUMMARY | 2022-03-15 11:27 | XMS_ITS | Encounter Summary ---
:1970 Author Organization [facility] Address [address] [place] [address] Care Team Providers Name Role Phone Unavailable Primary Care Provider Unavailable Encounter Details Date Type Department Care Team Description 05/19/2018 Hospital Encounter Department of Velma Munson Pa in Low Back Radiology, Luzmaria ALVES C.N.P. [facility], in [address] [place] [address] [place] [address] [place], [place] [phone] (Wo rk) [phone] Social History Tobacco Use Types Packs/Day Years [...] for this 2-3 VIEWS (most inpatients AM ELECTRIC WELDER procedure a re in and all the results outpatients) section. documented in this encounter Results DX Lumbar Spine 2-3 Views (05/19/2018 10:23 AM ELECTRIC WELDER) Anatomical Region Laterality Modality Lumbar Spine, Musculoskeletal RST LOS, Neuroradiology N/A Digital Radiography ARZ LOS, Muskuloskeletal FLA LOS Specimen (Source) Anatomical Collection Method Collection Time Re ceived Time Location / / Volume Laterality 05/19/2018 10:30 AM ELECTRIC WELDER Impressions 05/19/2018 10:30 AM ELECTRIC WELDER IMPRESSION: ??Mild multilevel degenerative spondylosis. Slight wedging of T12. Cholecystectomy clips. IUD. Adjustable g astric band. Narrative 05/19/2018 10:30 AM ELECTRIC WELDER EXAM: ??DX LUMBAR SPINE 2-3 VIEWS Procedure Note Richardson Packer M.D. - 05/19/2018For matting of this note might be different from the original. EXAM: DX LUMBAR SPINE 2-3 VIEWS IMPRESSION: Mild multilevel degenerative spondylosis. Slight wedging of T12. Cholecystectomy clips. IUD. Adjustable g astric band. Velma Munson APRN CLennoxNSandra IMG DIAGNOSTIC IMAGING P ROCEDURES documented in this encounter Visit Diagnoses Diagnosis Pain Low Back Unspecified documented in this encounter Additional Health Concerns Assessment Noted Time PHQ-9 Depression Total Score: 15 04/21/2018 1:00 PM CS T documented as of this encounter
--- OUTSIDE RECORDS SUMMARY | 2022-03-15 11:27 | XMS_ITS | Encounter Summary ---
:1970 Author Organization [facility] Address [address] [place] [address] Care Team Providers Name Role Phone Unavailable Primary Care Provider Unavailable Encounter Details Date Type Department Care Team Description 04/05/2018 Hospital Encounter Department of McbrideGigi ve Maris Laboratory Medicine Alex Mccauley and Pathology, [address] in [place], [place] [address] [place] [address] [place], [place] (Work) [phone] Social History Tobacco Use Types Packs/Day Years [...] with Dr. Jackson in psychiatry next week. RANCE OFFICER documented in this encounter Plan of Treatment Not on filedocumented as of this encounter Procedures Procedure Name Priority Date/Time Associated Comments Diagnosis AMITRIPTYLINE AND Routine 04/05/2018 12:51 Depressive Disorder Results for this NORTRIPTYLINE LEVEL, S PM ASSURANCE OFFICER proce dure are in the results section. documented in this encounter Results (ABNORMAL) Amitriptyline and Nortriptyline Level (04/05/2018 12:51 PM ASSURANCE OFFICER) [facility] Method Time Signature Amitriptyline 161 Not applicable 04/06/2018 [facility] ng/mL 6:18 PM ASSURANCE OFFICER [address] Nortriptyline 75 70 - 170 ng/mL 04/06/2018 [facility] 6:18 PM ASSURANCE OFFICER [facility] Amitriptyline and 236 (H) 80 - 200 ng/mL 04/06/2018 [facility] Nortriptyline 6:18 PM ASSURANCE OFFICER [facility] [place] Comment: ----ADDITIONAL INFORMATION---- This test was developed and its performa nce characteristics determined by [facility] in a manner consistent with CLIA requirements. This test has not been cleared or approved by the [place] d and Drug Administration. Specimen Anatomical Collection Method Collection Time Receive d Time (Source) Location / / Volume Laterality Blood (Blood, 04/05/2018 12:51 04/06/2018 7:53 Venous) PM ASSURANCE OFFICER AM ASSURANCE OFFICER Gigi Mcbride M.D. LAB BLOOD NON ADD-ON Performing Organization Address City/State/ZIP Code Phon e Number [facility] [address] [place] [address] [facility] documented in this encounter Visit Diagnoses Diagnosis Depressive Disorder documented in this encounter Additional Health Concerns Assessment Noted Time PHQ-9 Depression Total Score: 7 08/19/2017 3:59 PM CDT documented as of this encounter
--- OUTSIDE RECORDS SUMMARY | 2022-03-15 11:27 | XMS_ITS | Encounter Summary ---
:1970 Author Organization [facility] Address [address] [place] [address] Care Team Providers Name Role Phone Unavailable Primary Care Provider Unavailable Encounter Details Date Type Department Care Team Description 04/12/2018 Clinical Communication Division of [place], Gastroenterology in [place]y Aldridge [place], [place] 210 [facility] [address] [place] [phone] [phone] Social History Tobacco Use Types Packs/Day Years [...]
--- OUTSIDE RECORDS SUMMARY | 2022-03-15 11:27 | XMS_ITS | Encounter Summary ---
:1970 Author Organization [facility] Address [address] [place] [address] Care Team Providers Name Role Phone Unavailable Primary Care Provider Unavailable Encounter Details Date Type Department Care Team Description 01/25/2018 Hospital Encounter Department of Velma Munson Laboratory Medicine Lana, LONG, C.N .P. Inflammatory (HCC) and Pathology, [address] [place] [address] in [facility] [address] [place] [phone] [place] [address] (Work) [place], [place] [phone] [address] (Fax) [phone] Social History Tobacco Use Types Packs/Day Years [...] 9:21 AM CDT) Analysis Performed At Path logis Time Signature Creatinine 0.76 0.59 - 01/25/2018 [facility] 1.04 mg/dL 10:22 AM CDT LABORATORIES - [facility] eGFR-Non >90 >=60 01/25/2018 [facility] Black/ mL/min/BSA 10:22 AM CDT LABORATORIES - [facility] Comment: ----ADDITIONAL INFORMATION---- Estimated GFR calculated using the 2009 CKD_EPI creatinine equation. eGFR-Black/ >90 >=60 mL/min/BSA 01/25/2018 10:2 2 [facility] CDT LABORATORIES - [facility] Comment: ----ADDITIONAL INFORMATION---- Estimated GFR calculated using the 2009 CKD_EPI creatinine equation. Specimen Anatomical Collection Method Collection Time Receive d Time (Source) Location / / Volume Laterality Blood (Blood, 01/25/2018 9:21 AM 01/26/20 18 9:39 Venous) CDT AM CDT Karlene Polo APRN.N.P. LAB BLOOD ADD-ON Performing Organization Address City/[facility] Phon e Number [facility] LABORATORIES - [address] AST (Aspartate Aminotransferase) (01/25/2018 9:21 AM CDT) Patholo gist Method Time Signature Aspartate 13 8 - 43 01/25/2018 [facility] Aminotransferase U/L 10:22 AM LABORATORIES - (AST), S CDT [facility] Specimen Anatomical Collection Method Collection Time Receive d Time (Source) Location / / Volume Laterality Blood (Blood, 01/25/2018 9:21 AM 01/26/20 18 9:39 Venous) CDT AM CDT Velma Munson APRN, Karlene.N.P. LAB BLOOD ADD-ON Performing Organization Address City/State/[facility] Code Phon e Number [facility] LABORATORIES - [address] CRP (C-Reactive Protein) (01/25/2018 9:21 AM CDT) P athologist Signature C-Reactive 3.0 <=8.0 mg/L 01/25/2018 [facility] Protein (CRP), 10:22 AM CDT LABORATORIES - S [facility] Specimen Anatomical Collection Method Collection Time Receive d Time (Source) Location / / Volume Laterality Blood (Blood, 01/25/2018 9:21 AM 09/26/20 18 9:39 Venous) CDT AM CDT Jorge Polo APRNN.P. LAB BLOOD ADD-ON Performing Organization Address City/[facility]/ZIP Code Phon e Number [facility] LABORATORIES - [address] [place] [address] [facility] Sedimentation Rate (01/25/2018 9:21 AM CDT) [facility] Method Time Signature Sedimentation 3 0 - 29 01/25/2018 [facility] Rate, B mm/1 h 11:12 AM CDT LABORATORIES - [facility] Specimen Anatomical Collection Method Collection Time Receive d Time (Source) Location / / Volume Laterality Blood (Blood, 01/25/2018 9:21 AM 01/26/20 18 9:39 Venous) CDT AM CDT Jorge Polo APRNN.P. LAB BLOOD ADD-ON Performing Organization Address [facility] Code Phon e Number [facility] LABORATORIES - [address] [place] [address] [facility] CBC with Differential, Blood (01/25/2018 9:21 AM CDT) [facility] Method Time Signature Hemoglobin 13.9 11.6 - 01/25/2018 [facility] 15.0 g/dL 10:19 AM CDT LABORATORIES - [facility] Hematocrit 42.0 35.5 - 01/25/2018 [facility] 44.9 % 10:19 AM CDT LABORATORIES - [facility] Erythrocytes 4.95 3.92 - 01/25/2018 [facility] 5.13 10:19 AM CDT LABORATORIES - x10(12)/L [facility] MCV 84.8 78.2 - 01/25/2018 [facility] 97.9 fL 10:19 AM CDT LABORATORIES - [facility] RBC Distrib Width 14.0 12.2 - 01/25/2018 [facility] 16.1 % 10:19 AM CDT LABORATORIES - [facility] Platelet Count 274 157 - 371 01/25/2018 [facility] x10(9)/L 10:19 AM CDT LABORATORIES - [facility] Leukocytes 6.5 3.4 - 9.6 01/25/2018 [facility] x10(9)/L 10:19 AM CDT LABORATORIES - [facility] Neutrophils 4.55 1.56 - 01/25/2018 [facility] 6.45 10:19 AM CDT LABORATORIES - x10(9)/L [facility] Lymphocytes 1.46 0.95 - 01/25/2018 [facility] 3.07 10:19 AM CDT LABORATORIES - x10(9)/L [facility] Monocytes 0.39 0.26 - 01/25/2018 [facility] 0.81 10:19 AM CDT LABORATORIES - x10(9)/L [facility] Eosinophils 0.04 0.03 - 01/25/2018 [facility] 0.48 10:19 AM CDT LABORATORIES - x10(9)/L [facility] Basophils <0.03 0.01 - 01/25/2018 [facility] 0.08 10:19 AM CDT LABORATORIES - x10(9)/L [facility] Specimen Anatomical Collection Method Collection Time Receive d Time (Source) Location / / Volume Laterality Blood (Blood, 01/25/2018 9:21 AM 01/26/20 18 9:39 Venous) CDT AM CDT Velma Munson APRN, C.N.P. LAB BLOOD ADD-ON Performing Organization Address City/State/ZIP Code Phon e Number [facility] LABORATORIES - 200 [place], [place] [address] [facility] documented in this encounter Visit Diagnoses Diagnosis Arthritis Inflammatory (HCC) documented in this encounter Additional Health Concerns Assessment Noted Time PHQ-9 Depression Total Score: 7 08/19/2017 3:59 PM CDT documented as of this encounter
--- OUTSIDE RECORDS SUMMARY | 2022-03-15 11:27 | XMS_ITS | Encounter Summary ---
:1970 Author Organization [facility] Address [address] [place] [address] Care Team Providers Name Role Phone Unavailable [...]
--- OUTSIDE RECORDS SUMMARY | 2022-03-15 11:27 | XMS_ITS | Encounter Summary ---
:1970 Author Organization [facility] Address [address] [place] [address] Care Team Providers Name Role Phone Unavailable Primary Care Provider Unavailable Encounter Details Date Type Department Care Team Description 08/22/2017 Orders Only Division of Velma Munson Arthritis In scammatory Rheumatology in , OPERATOR RECEPTIONIST, C.N.P. ([facility]) [place], [place] [address] [facility] [address] [place] [phone] Social History Tobacco Use Types Packs/Day Years [...]
--- OUTSIDE RECORDS SUMMARY | 2022-03-15 11:27 | XMS_ITS | Encounter Summary ---
:1970 Author Organization [facility] Address [address] [place] [address] Care Team Providers Name Role Phone Unavailable Primary Care Provider Unavailable Encounter Details Date Type Department Care Team Description 05/09/2018 Clinical Communication Division of [place], Gastroenterology in Susy Aldridge [place], [place] 210 [facility] [address] [place] [address] [phone] Social History Tobacco Use Types Packs/Day Years [...]
--- OUTSIDE RECORDS SUMMARY | 2022-03-15 11:27 | XMS_ITS | Encounter Summary ---
:1970 Author Organization [facility] Address [address] [place] [address] Care Team Providers Name Role Phone Unavailable Primary Care Provider Unavailable Reason for Visit Appointment Request (Routine) - Closed Specialty Diagnoses / Procedures Referred By Contact Refer red To Contact Rheumatology Referral ID Status Reason Start Date Expiration Date Visits Requ ested Visits Authorized [id number] Closed 01/16/2018 01/16/2019 1 1 Encounter Details Date Type Department Care Team Description 01/25/2018 Office Visit Division of Velma Munson Arthritis In flessextory ([facility]) (Primary Dx); 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 She later established care with a corporate sales representative at [facility] who made a formal diagnosis of [...] [facility] [place] [place] Raynauds. Patient was in agreement with this plan. #2 Pain Hip Left No synovitis or tenosynovitis noted on MRI. I believe she would benefit from another round of Physical therapy. Patient would prefer to see someone in [place] for this. #3 High Risk Medication At [...]
--- OUTSIDE RECORDS SUMMARY | 2022-03-15 11:30 | XMS_ITS | Encounter Summary ---
:1970 Author Organization [facility] Address [address], [place] [address] Care Team Providers Name Role Phone Unavailable Primary Care Provider Unavailable Encounter Details Date Type Department Care Team Description 09/04/2020 Lab Visit [facility] Laboratory Pituitary tumor [address] [place] [address] Social History Tobacco Use Types Packs/Day Years Used Date Smoking Tobacco: Never Smokeless Tobacco: Never Sex Assigned at Date Recorded Not on file documented as of this encounter Plan of Treatment Upcoming Encounters Date Type Specialty Care Team Description 05/21/2022 Appointment Urology Camacho Dietrich PA-C [address] [facility] N [id number] (Wo rk) documented as of this encounter [...] Insulin-Like Growth Factor (09/04/2020 2:49 PM CDT) [facility] Method Time Signature Insulin-Like 140 60 [...] b etween -2.0 and +2.0. Performed By: [employer] [address] [place] [address] Multiple Wire Sawyer: Dotty Preciado MD Specimen Anatomical Collection Method / Collection Time Recei chelsey Time (Source) Location / Volume Laterality Blood Venipuncture / 09/04/2020 2:49 09/04/2020 2:59 Unknown PM CDT PM CDT Ray Cruz MD LAB_1 Performing Organization Address [facility] Phon e Number [employer] [address] [place], [place] [phone] Cortisol AM (09/04/2020 2:49 PM CDT) athologist Signature Cortisol 10.0 2.9 - 19.4 09/04/2020 [facility] mcg/dL 7:10 PM CDT LABORATORY Specimen Anatomical Collection Method / Collection Time Recei chelsey Time (Source) Location / Volume Laterality Blood Venipuncture / 09/04/2020 2:49 09/04/2020 2:59 Unknown PM CDT PM CDT Narrative [facility] - 09/04/2020 7:10 P M CDT Expected values AM (before 10am): 3.7-19.4 mcg/dL PM (after 5pm): 2.9-17.3 mcg/dL Ray Cruz MD LAB_1 Performing Organization Address City/[facility] Phon e Number [facility] [address] [place] [address] Free T4 (09/04/2020 2:49 PM CDT) P athologist Signature T4, Free 0.90 0.70 - 1.50 09/04/2020 [facility] ng/dL 7:10 PM CDT LABORATORY Specimen Anatomical Collection Method / Collection Time Recei chelsey Time (Source) Location / Volume Laterality Blood Venipuncture / 09/04/2020 2:49 09/04/2020 2:59 Unknown PM CDT PM CDT Ray Cruz MD LAB_1 Performing Organization Address City/State/ZIP Code Phon e Number [facility] [address] [place] [address] documented in this encounter Visit Diagnoses Diagnosis Pituitary tumor (HRC) 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
--- OUTSIDE RECORDS SUMMARY | 2022-03-15 11:30 | XMS_ITS | Encounter Summary ---
:[address] [facility] Address [address] [place] [address] Care Team Providers Name Role Phone None, Pcp Primary Care Provider Unavailable Encounter Details Date Type Department Care Team Description 02/23/2021 Telephone [place] Domo Bateman MD [address] [facility] 20 1705 [facility] 20 [place], [place] [address] [place], [place] [phone] [address] (Wo rk) Social History Tobacco Use Types [...] on filedocumented in this encounter Care Teams Lot Porter Relationship Specialty Start Date End Date None, Pcp PCP - General Drum Stenciler 02/16/21 [address] [place] [address] documented as of this encounter
--- OUTSIDE RECORDS SUMMARY | 2022-03-15 11:30 | XMS_ITS | Encounter Summary ---
:1970 Author Organization [facility] Address [address] [place] [address] Care Team Providers Name Role Phone Unavailable Primary Care Provider Unavailable Reason for Visit Reason Comments Referral Chemult, Hyperprolactinem ia and Prolactinoma Encounter Details Date Type Department Care Team Description 08/19/[address] [facility] 3800 Nurse, [id number] End Referral (Chemult, Endocrinology [address] Hyper[address]lactinemia and [address] Prolactinoma) vd. [facility] [phone] Social History Tobacco Use Types Packs/Day Years [...] 08/19/2020 9:31 AM CDT Received referral from [facility] from Dr. Kelly Ramirez for patient to be seen for History of Hyperprolactinemia and Prolactinoma. Records sent to scan docs and [facility] for patient to call back and schedule the consul with an MD. documented in this encounter Plan of Treatment Upcoming Encounters Date Type Specialty Care Team Description 05/21/2022 Appointment Urology Camacho Dietrich PA-C [address] [facility] [address] (Wo rk) documented as of this encounter Visit Diagnoses Not on filedocumented in this encounter
--- OUTSIDE RECORDS SUMMARY | 2022-03-15 11:30 | XMS_ITS | Encounter Summary ---
:1970 Author Organization [facility] Address [address] [place] [address] Care Team Providers Name Role Phone None, Pcp Primary Care Provider Unavailable Encounter Details Date Type Department Care Team Description 02/23/2021 Telephone [place] None, Pcp [address] [place], [place] [address] [place] [address] Social History Tobacco Use Types Packs/Day Years [...] rculosis documented in this encounter Care Teams Physical Medicine Teacher Relationship Specialty Start Date End Date None, Pcp PCP - General Pricing Analyst 02/16/21 [address] [place] [address] documented as of this encounter
--- OUTSIDE RECORDS SUMMARY | 2022-03-15 11:30 | XMS_ITS | Clinical Summary ---
:1970 Author Organization [facility] Address [address] [place] [address] Care Team Providers Name Role Phone None, [...] comple te this topic Years) Care Teams Bar Roller Relationship Specialty Start Date End Date None, Pcp PCP - General Document Control Coordinator 02/16/[address] [place] [phone]
--- OUTSIDE RECORDS SUMMARY | 2022-03-15 11:30 | XMS_ITS | Clinical Summary ---
:1970 Author Organization [facility] Address [address] [place] [address] Care Team Providers Name Role Phone Unavailable [...] for each transition of care or referral. [facility] Allergies Active Allergy Reactions Severity Noted Date [...] Description 05/21/2022 Appointment Urology Camacho Dietrich PA-C [address] [facility] N [id number] (Wo rk) Health Maintenance Due Date Last [...] ss Type Group BCBS BCBS OUT OF [id number] 2020-Present [address] [address] [place] [address]
--- OUTSIDE RECORDS SUMMARY | 2022-03-15 11:30 | XMS_ITS | Encounter Summary ---
:1970 Author Organization [facility] Address [address] [place] [address] Care Team Providers Name Role Phone None, Pcp Primary Care Provider Unavailable Reason for Visit Reason Comments PPD Placement Encounter Details Date Type Department Care Team Description 02/16/2021 Immunization [place] Screening for tuberculosis [address] (Primary Dx) [place], [place] [address] Social History Tobacco Use Types Packs/Day Years Used Date Never Assessed Sex Assigned at Date Recorded Not on file documented as of this encounter Plan of Treatment Not on filedocumented as of this encounter Visit Diagnoses Diagnosis Screening for tuberculosis - Primary Screening examination for pulmonary tube rculosis documented in this encounter Care Teams In Classroom Tutor Relationship Specialty Start Date End Date None, Pcp PCP - General Regulatory Specialist 02/16/[address] [place] [phone] documented as of this encounter
--- OUTSIDE RECORDS SUMMARY | 2022-03-15 11:30 | XMS_ITS | Encounter Summary ---
:1970 Author Organization Replaced by [facility] Address [address] [place] [address] Care Team Providers Name Role Phone Unavailable Primary Care Provider Unavailable Reason for Visit Procedure/Equipment (Routine) - Incomplete Specialty Diagnoses / Procedures Referred By Contact Refer red To Contact Diagnoses Pituitary tumor (HRC) Ray Cruz MD Procedures MR Brain W/WO IV Cont [address] [place], [place] [address] Referral ID Status Reason Start Date Expiration Date Visits V isits Requested Authorized [id number] Incomplete 09/02/2020 12/02/2021 1 1 Encounter Details Date Type Department Care Team Description 09/04/2020 Ancillary Procedure Zhanna Cruz, Pituita ry tumor [place] [address] Ray Gonzales MD Radiology MRI [address] [facility] [address] [place] [id number] Social History Tobacco Use Types Packs/Day Years Used Date Smoking Tobacco: Never Smokeless Tobacco: Never Sex Assigned at Date Recorded Not on file documented as of this encounter Plan of Treatment Upcoming Encounters Date Type Specialty Care Team Description 05/21/2022 Appointment Urology Camacho Dietrich PA-C [address] [facility] N [address] (Wo rk) documented as of this encounter [...]
--- OUTSIDE RECORDS SUMMARY | 2022-03-15 11:30 | XMS_ITS | Encounter Summary ---
:1970 Author Organization [facility] Address [address] [place] [address] Care Team Providers Name Role Phone Unavailable Primary Care Provider Unavailable Reason for Referral Procedure/Equipment (Routine) - Incomplete Specialty Diagnoses / Procedures Referred By Contact Refer red To Contact Diagnoses Pituitary tumor (HRC) Ray Cruz MD Procedures MR Brain W/WO IV Cont [address] [place], [place] [address] Referral ID Status Reason Start Date Expiration Date Visits V isits Requested Authorized [id number] Incomplete 09/02/2020 12/02/2021 1 1 Reason for Visit Reason Comments CONSULT Encounter Details Date Type Department Care Team Description 09/02/2020 Telemedicine [facility] [address] [place], Pituitary tumor (Primary Dx); Endocrinology Ray Gonzales MD Prolactinoma (HRC) 38[address] [facility] 3800 [facility] 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 Pt was diagnosed with it initially in ~2011 in [place]. Pt is unsure how they found it, but she reports having nipple discharge at that time. Pt has never been on medication for it (cabergoline). She doesn't recall any workup initially for evaluation. She reports she did see an Script Editor initially in [place] once when diagnosed. Pt has chronic migraines [...] never had treatment for. She reports seeing Script Editor when first diagnosed, but no follow-up since then. Symptoms suggestive of possible hypothyroidism or excess cortisol, will screen. Recent prolactin level normal. #pituitary tumor - repeat pituitary MRI - check labwork including FT4, AM cortisol, IGF-1 and LNSCx2 RTC in 1 month to discuss results of labwork and imaging Total time personally spent with patient [id number]: 20 minutes. Additional 10 minutes were spent on chart review, clinical decision-making, and documentation outside of [id number] time with patient on date of patient [...] 05/21/2022 Appointment Urology Camacho Dietrich PA-C [address] [facility] [address] (Wo rk) documented as of this encounter Results Insulin-Like Growth Factor (09/04/2020 2:49 PM CDT) [facility] Method Time Signature Insulin-Like 140 60 [...] b etween -2.0 and +2.0. Performed By: [employer] [address] [place] [address] Front Desk Assistant: Dotty Preciado MD Specimen Anatomical Collection Method / Collection Time Recei chelsey Time (Source) Location / Volume Laterality Blood Venipuncture / 09/04/2020 2:49 09/04/2020 2:59 Unknown PM CDT PM CDT Ray Cruz MD LAB_1 Performing Organization Address City/State/ZIP Code Phon e Number [facility] [address] [place] [phone] Cortisol AM (09/04/2020 2:49 PM CDT) P athologist Signature Cortisol 10.0 2.9 - 19.4 09/04/2020 [facility] mcg/dL 7:10 PM CDT LABORATORY Specimen Anatomical Collection Method / Collection Time Recei chelsey Time (Source) Location / Volume Laterality Blood Venipuncture / 09/04/2020 2:49 09/04/2020 2:59 Unknown PM CDT PM CDT Narrative [facility] - 09/04/2020 7:10 P M CDT Expected values AM (before 10am): 3.7-19.4 mcg/dL PM (after 5pm): 2.9-17.3 mcg/dL Ray Cruz MD LAB_1 Performing Organization Address City/[facility] Code Phon e Number [facility] [address] [place] [address] Free T4 (09/04/2020 2:49 PM CDT) P athologist Signature T4, Free 0.90 0.70 - 1.50 09/04/2020 [facility] ng/dL 7:10 PM CDT LABORATORY Specimen Anatomical Collection Method / Collection Time Recei chelsey Time (Source) Location / Volume Laterality Blood Venipuncture / 09/04/2020 2:49 09/04/2020 2:59 Unknown PM CDT PM CDT Ray Cruz MD LAB_1 Performing Organization Address [facility] Phon e Number [facility] [address] [place] [address] MR Brain W/WO IV Cont (09/04/2020 2:43 [...]
--- OUTSIDE RECORDS SUMMARY | 2022-03-15 11:30 | XMS_ITS | Encounter Summary ---
:1970 Author Organization [facility] Address [address] [place] [address] Care Team Providers Name Role Phone Unavailable Primary Care Provider Unavailable Reason for Visit Reason Onset Date Comments No Show 10/03/2020 Encounter Details Date Type Department Care Team Description 10/03/2020 Telemedicine Brynn Cruz, Encounters for Endocrinology Ray Gonzales MD administrative purposes [address] (Primary Dx) [place] [address] Blvd [phone] [place], [place] [phone] Social History Tobacco Use Types Packs/Day Years [...] Team Description 05/21/2022 Appointment Urology Camacho Dietrich PAShannen [address] [facility] N [id number] (Wo rk) documented as of this encounter Visit Diagnoses Diagnosis Encounters for administrative purposes - Primary Encounters for unspecified administrativ e purpose documented in this encounter
--- OUTSIDE RECORDS SUMMARY | 2022-03-15 11:30 | XMS_ITS | Encounter Summary ---
:1970 Author Organization [facility] Address [address] [place] [address] Care Team Providers Name Role Phone None, Pcp Primary Care Provider Unavailable Reason for Visit Reason Comments TB Read TB skin test reading Encounter Details Date Type Department Care Team Description 02/26/2021 Clinical Support [place] [address] [facility] [address] [place], [place] [address] Social History Tobacco Use Types Packs/Day Years Used Date Never Assessed Sex Assigned at Date Recorded Not on file documented as of this encounter Plan of Treatment Not on filedocumented as of this encounter Visit Diagnoses Not on filedocumented in this encounter Care Teams Paint Stock Clerk Relationship Specialty Start Date End Date None, Pcp PCP - General Petrologist 02/16/21 [address] [place] [id number] documented as of this encounter
== END 2022-03-11 13:15 | disposition home or self-care (01) ==
LOC: NFLDREF 03-15 11:17
PROVIDERS: PCP Internal Medicine; Visit Provider Internal Medicine
DX: R30.0 Dysuria (principal); N39.0 Urinary tract infection, site not specified
CPT/HCPCS: 87086; 87186

== ENCOUNTER 2022-05-17 15:27 | Outpatient (CLI) | payer BC, SELFPAY ==
--- NOTE | 2022-05-17 15:20 | CRLHL7_ITS ---
For Patients: As a result of the Century Cures Act, medical imaging exams and procedure reports are released immediately into your electronic medical record. You may view this report before your referring provider. If you have questions, please contact your health care provider. BILATERAL SCREENING MAMMOGRAM WITH COMPUTER-AIDED DETECTION AND TOMOSYNTHESIS TECHNIQUE: CC and MLO views were obtained. These mammographic images have been obtained using full-field digital technique. These mammographic images were interpreted with the benefit of computer-aided detection. Breast Tomosynthesis was used in this interpretation. COMPARISON FILM: 08/11/17, 01/30/16, 01/24/15. FINDINGS: The breasts are heterogeneously dense, which may obscure small masses IMPRESSION: There is no radiographic evidence for malignancy. ASSESSMENT: BI-RADS Category 2: Benign RECOMMENDATION: Routine screening mammogram in 1 year. A lay language report of this examination will be provided to the patient. Newton Cuellar M.D. Diagnostic Radiologist [email or web address] Transcribed: 3:32 p.mLennox alexander/Dictated by: Newton Cuellar MD @ 05/18/2022 8:45:00 AM (Electronically Signed)
== END 2022-05-17 15:28 | disposition home or self-care (01) ==
PROVIDERS: PCP Internal Medicine; Visit Provider Internal Medicine
DX: Z12.31 Encounter for screening mammogram for malignant neoplasm of breast (principal); R92.2 Inconclusive mammogram
CPT/HCPCS: 77063; 77067

== ENCOUNTER 2022-07-27 18:25 | Emergency (ER) | payer BC, SELFPAY ==
[2022-07-27 18:35] VITALS: BP 141/101; PULSE 98; RESP 16; TEMP 36.2; O2SAT 100; BMI 28.9
--- NOTE | 2022-07-27 18:57 | ED_ITS ---
HPI - Headache General Chief Complaint: Headache/Migraine Stated Complaint: Migraine Time Seen by Provider: 07/27/22 18:39 History of Present Illness HPI Narrative: This 51-year-old female has history of chronic migraine headaches. She has been in several times in the past week with persistent and recurring migraine-type headaches. She has had injections of Toradol and was prescribed amitriptyline in a recent visit. She does not report any nausea and vomiting. She is scheduled for an MRI next week. She does not report any neurologic deficits. Related Data Home Medications Medication Instructions Recorded Confirmed famotidine 20 mg tablet 20 mg PO .Bedtime 11/25/21 07/26/22 hydroxyzine HCl 25 mg tablet 25 mg PO .As Needed PRN 11/25/21 07/26/22 methotrexate sodium (PF) 25 mg/mL 50 mg IM QWEEK 11/25/21 07/26/22 injection solution omeprazole 20 mg capsule,delayed 40 mg PO DAILY 11/25/21 07/26/22 release pantoprazole 40 mg tablet,delayed 40 mg PO BID 11/25/21 07/26/22 release sucralfate 1 gram tablet 1 g PO QID 11/25/21 07/26/22 folic acid 1 mg tablet 1 mg PO BID 07/26/22 07/26/22 hydroxychloroquine 200 mg tablet 200 - 400 mg PO .UD 07/26/22 07/26/22 levonorgestrel 21 mcg/24 hours (8 1 device intrauterine ONCE 07/26/22 07/26/22 yrs) 52 mg intrauterine device (Mirena) Previous Rx's Medication Instructions Recorded alprazolam 1 mg tablet 2 mg PO QHS Anxiety #60 tabs 07/13/22 fvhwanaame-dkskqxbpczard-luqblwam 1 tab PO Q4-6H PRN pain #60 tabs 07/13/22 50 mg-325 mg-40 mg tablet dextroamphetamine-amphetamine ER 15 mg PO DAILY #30 caps 07/13/22 15 mg 24hr capsule,extend release dextroamphetamine-amphetamine ER 30 mg PO DAILY #30 caps 07/13/22 30 mg 24hr capsule,extend release sumatriptan succinate 6 mg/0.5 mL 6 mg (0.5 mL) subcut .As Needed as 07/19/22 subcutaneous pen injector needed PRN migraine headache #1 mL amitriptyline 25 mg tablet 25 mg PO QHS #30 tabs 07/23/22 hydroxyzine pamoate 25 mg capsule 25 - 50 mg PO Q8H #30 caps 07/23/22 topiramate 100 mg tablet 100 mg PO DAILY #90 tabs 07/23/22 prednisone 20 mg tablet 20 mg PO BID Migraine Headache #7 07/26/22 tabs Allergies Allergy/AdvReac Type Severity Reaction Status Date / Time iodine Allergy Intermediate Fainting, Verified 07/26/22 14:20 sob hydrocodone Allergy Mild Itching Verified 07/26/22 14:20 adhesive Allergy Unknown Rash Verified 07/26/22 14:20 pecan nut Allergy Verified 07/26/22 14:20 Review of Systems Status of ROS: Reports: 10 or more systems reviewed and unremarkable except as noted in History and below Narrative: Constitutional: No fevers, no weight gain or loss. Eyes: No discharge. No vision changes. HENT: No congestion, no sore throat, no ear pain. Cardiovascular: No chest pain, no palpitations. Respiratory: No shortness of breath, no wheezes, no cough. Gastrointestinal: No abdominal pain, no vomiting, no diarrhea. Genitourinary: No dysuria, no hematuria. Musculoskeletal: Normal range of motion. Skin: No rashes, no pruritis. Neurological: No dizziness, weakness, sensory change, speech change. Endo/Heme/Allergies: No bruising or bleeding. No polydipsia. Pysch: no suicidality, no anxiety, no insomnia. All other systems reviewed and are negative. 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 HEENT: Normocephalic, atraumatic. Neck: Normal range of motion. Nontender. Supple. Heart: Intact distal pulses. Lungs: No chest discomfort. No wheezes, rhonchi, or rales. Abdomen: Nontender. Back: Normal range of motion. Extremities: Normal range of motion. No injury. Skin: Intact. No rash. Warm. No erythema or pallor. Neurologic: No altered sensation. No weakness. Alert and oriented. Psychiatric: No suicidality. No anxiety or depression. No insomnia. Nursing notes and vitals signs are reviewed. Const: Vital Signs, click to edit/add: Vital Signs - 24 hr 07/27/22 18:35 Temperature 97.1 F L Pulse Rate [Pulse Oximeter] 98 Respiratory Rate 16 Blood Pressure [Ri ght Upper Arm] 141/101 H Pulse Oximetry 100 Oxygen Delivery Me thod Room Air Course Vital Signs Vital signs: Initial Vital Signs Temperature 97.1 F L 07/27/22 18:35 Temperature Source Temporal Artery Scan 07/27/22 18:35 Pulse Rate 98 07/27/22 18:35 Pulse Rhythm Regular 07/27/22 18:35 Respiratory Rate 16 07/27/22 18:35 Blood Pressure 141/101 H 07/27/22 18:35 Blood Pressure Mean 114 07/27/22 18:35 Blood Pressure Position Sitting 07/27/22 18:35 Pulse Oximetry 100 07/27/22 18:35 Oxygen Delivery Method Room Air 07/27/22 18:35 Vital Signs Temperature 97.1 F L 07/27/22 18:35 Pulse Rate 98 07/27/22 18:35 Respiratory Rate 16 07/27/22 18:35 Blood Pressure 141/101 H 07/27/22 18:35 Pulse Oximetry 100 07/27/22 18:35 Oxygen Delivery Method Room Air 07/27/22 18:35 Temperature 97.1 F L 07/27/22 18:35 Pulse Rate 98 07/27/22 18:35 Respiratory Rate 16 07/27/22 18:35 Blood Pressure 141/101 H 07/27/22 18:35 Pulse Oximetry 100 07/27/22 18:35 Oxygen Delivery Method Room Air 07/27/22 18:35 MDM - Headache MDM Narrative Medical decision making narrative: This patient has history of migraine headaches and has had persistent headache over the past couple weeks despite numerous treatments both orally and intramuscular. An IV was established here today where she did receive a L of normal saline, Toradol 30 mg, Zofran 4 mg, and Benadryl 50 mg. This brought minimal relief to her symptoms. I did discuss further options including magnesium, Depakote, and ketamine. She understands that there is a shortage of ketamine but I did offer it to her as she is 2 who seems to benefit from this treatment given her intractable headache over the past couple weeks. She did received 20 mg intravenously and this brought complete relief of her headache. She states that she is not having any pain at this time. She is okay to be discharged home to continue current plans. Discharge Plan Discharge Clinical Impression: Migraine Patient Disposition: Home, Self-Care Condition: Improved Additional Instructions: Continue current plans. Follow up with MD or return if worsening. Prescriptions: No Action methotrexate sodium (PF) 25 mg/mL solution 50 mg IM QWEEK hydroxyzine HCl 25 mg tablet 25 mg PO .As Needed PRN pantoprazole 40 mg tablet,delayed release (DR/EC) 40 mg PO BID famotidine 20 mg tablet 20 mg PO .Bedtime sucralfate 1 gram tablet 1 g PO QID omeprazole 20 mg capsule,delayed release(DR/EC) 40 mg PO DAILY folic acid 1 mg tablet 1 mg PO BID hydroxychloroquine 200 mg tablet 200 - 400 mg PO .UD Rx Instructions: Alternates every other day between 200 and 400mg. sumatriptan succinate 6 mg/0.5 mL pen injector 6 mg subcut .As Needed as needed PRN (Reason: migraine headache) Qty: 1 3RF Rx Instructions: 3 boxes with 3 refills. Mirena 21 mcg/24 hours (8 yrs) 52 mg intrauterine device 1 device intrauterine ONCE Rx Instructions: as a single dose prednisone 20 mg tablet 20 mg PO BID Qty: 7 0RF amitriptyline 25 mg tablet 25 mg PO QHS Qty: 30 1RF hydroxyzine pamoate 25 mg capsule 25 - 50 mg PO Q8H Qty: 30 0RF alprazolam 1 mg tablet 2 mg PO QHS Qty: 60 0RF ouftnbuyry-esmptuplcjzae-dqbg 50-325-40 mg tablet 1 tab PO Q4-6H PRN (Reason: pain) Qty: 60 0RF dextroamphetamine-amphetamine 15 mg capsule,extended release 24hr 15 mg PO DAILY Qty: 30 0RF dextroamphetamine-amphetamine 30 mg capsule,extended release 24hr 30 mg PO DAILY Qty: 30 0RF topiramate 100 mg tablet 100 mg PO DAILY Qty: 90 0RF Follow Up/Referrals: Taran Rivas MD [Primary Care Provider] - Stand Alone Forms: [employer] Instructions
[2022-07-27] MEDS: 0.9 % SODIUM CHLORIDE 1000 ml 1,000 ML IV (19:23)
[2022-07-27] MEDS: ONDANSETRON 2 MG/ML inj 4 MG IVP (19:24)
[2022-07-27] MEDS: diphenhydrAMINE 50 MG/ML inj IVP (19:24)
[2022-07-27] MEDS: KETOROLAC 30 MG/ML inj IVP (19:24)
[2022-07-27 20:00] VITALS: PULSE 88; RESP 16; O2SAT 98
--- NOTE | 2022-07-27 20:09 | ED.NURSE ---
up to the bathroom and stated the headache is changing and moved more into the left side of the forehead. patient is rating at 5/10 scale.
[2022-07-27] MEDS: KETAMINE HCL 20 MG in 0.9 % SODIUM CHLORIDE 100 ml 100 ML 300.6 MG IVPB (20:50)
[2022-07-27 21:00] VITALS: PULSE 86; RESP 16; O2SAT 96
--- NOTE | 2022-07-27 21:15 | ED.NURSE ---
patient finished with the ketamine dose and is feeling better and the headache is gone. Informed Dr. Song of this result.
== END 2022-07-27 21:44 | disposition home or self-care (01) ==
PROVIDERS: Emergency Provider Emergency Medicine Emergency Medical Services; PCP Internal Medicine
DX: G43.909 Migraine, unspecified, not intractable, without status migrainosus (principal)
CPT/HCPCS: 96365; 96375; 99284; J1200; J1885; J2405; J3490; J7030

== ENCOUNTER 2022-08-02 09:18 | Outpatient (CLI) | payer BC, SELFPAY ==
--- NOTE | 2022-08-02 09:15 | CRLHL7_ITS ---
For Patients: As a result of the Century Cures Act, medical imaging exams and procedure reports are released immediately into your electronic medical record. You may view this report before your referring provider. If you have questions, please contact your health care provider. INDICATION: Increased headaches. TECHNIQUE: Multiplanar multisequence noncontrast MR images acquired through the brain. COMPARISON: None. FINDINGS: The ventricles and sulci are within normal limits for patient age. No mass effect or midline shift. No parenchymal signal abnormalities. No intracranial hemorrhage or pathologic extra-axial fluid collection. No diffusion restriction to suggest acute infarction. The major arterial flow voids of the skullbase are preserved. The globes are symmetric. Moderately severe mucosal thickening and small retention cyst or polyp in the right maxillary sinus. Mild ethmoid sinus mucosal thickening. The mastoid air cells are clear. IMPRESSION: 1. No intracranial abnormality on this noncontrast exam. 2. Moderately severe right maxillary sinus mucosal thickening. Dictated by Toy Crow MD @ 08/02/2022 12:47:43 PM (Electronically Signed)
== END 2022-08-02 09:19 | disposition home or self-care (01) ==
PROVIDERS: PCP Internal Medicine; Visit Provider Family Medicine
DX: G43.909 Migraine, unspecified, not intractable, without status migrainosus (principal); J32.0 Chronic maxillary sinusitis
CPT/HCPCS: 70551

== ENCOUNTER 2022-08-10 10:27 | Outpatient (CLI) | payer BC, SELFPAY | END 2022-08-10 10:28 | disposition home or self-care (01) | PROVIDERS: PCP Internal Medicine; Visit Provider Internal Medicine | DX: E66.9 Obesity, unspecified (principal); I10 Essential (primary) hypertension; F41.9 Anxiety disorder, unspecified; M06.9 Rheumatoid arthritis, unspecified; G43.909 Migraine, unspecified, not intractable, without status migrainosus | CPT/HCPCS: 80048; 83001; 83002 ==

== ENCOUNTER 2023-04-05 14:56 | Outpatient (CLI) | payer BC, SELFPAY | END 2023-04-05 14:57 | disposition home or self-care (01) | PROVIDERS: PCP Internal Medicine; Visit Provider Internal Medicine | DX: M32.9 Systemic lupus erythematosus, unspecified (principal); M06.9 Rheumatoid arthritis, unspecified; F41.9 Anxiety disorder, unspecified | CPT/HCPCS: 80053; 84443 ==

== ENCOUNTER 2023-04-06 10:24 | Outpatient (CLI) | payer BC, SELFPAY ==
--- NOTE | 2023-04-06 10:15 | CRLHL7_ITS ---
For Patients: As a result of the Century Cures Act, medical imaging exams and procedure reports are released immediately into your electronic medical record. You may view this report before your referring provider. If you have questions, please contact your health care provider. Technique: Double-contrast upper GI performed after the uneventful administration of effervescent crystals and thick barium. Fluoroscopy time 1.5 minutes. Indication: Dysphagia Comparison: 02/06/2020 Findings: Postoperative changes of Toupet fundoplication noted. Large volume spontaneous reflux to the proximal esophagus noted. Mild tertiary contractions involving the entire esophagus noted. Decreased clearance of contrast from the stomach. Additional postop changes of lap band removal and hernia repair. Impression: Large volume spontaneous reflux with chronic reflux esophagitis. Possible delayed gastric emptying. Consultation with recent surgeon recommended. Dictated by Newton Cuellar MD @ 04/06/2023 11:40:25 AM (Electronically Signed)
== END 2023-04-06 10:25 | disposition home or self-care (01) ==
LOC: RAD 10:25
PROVIDERS: PCP Internal Medicine; Visit Provider Internal Medicine
DX: R13.10 Dysphagia, unspecified (principal); K21.00 Gastro-esophageal reflux disease with esophagitis, without bleeding; M32.9 Systemic lupus erythematosus, unspecified
CPT/HCPCS: 74246

== ENCOUNTER 2023-05-11 12:56 | Emergency (ER) | payer BC, SELFPAY ==
[2023-05-11 13:06] VITALS: BP 98/61; PULSE 74; RESP 14; TEMP 36.6; O2SAT 97; BMI 25.5
--- NOTE | 2023-05-11 13:25 | ED_ITS ---
HPI - General Adult General Chief complaint: Diarrhea Stated complaint: Diarrhea, weakness Time Seen by Provider: 05/11/23 12:58 History of Present Illness HPI narrative: 52-year-old female with diarrhea for the last 5 days. She was seen yesterday in the clinic. Given some Lomotil. No labs were ordered. Patient has had a delayed gastric emptying study upper GI recently, and had some esophageal reflux. She reports she had a nuclear imaging study in [place] and since then has had looser stool or diarrhea. She feels tired from her loose stools. Feels she is dehydrated. Significant other reports she is under lot of stress. No chest pain, fevers, blood in her stool, chest pain or breathing difficulty. No nausea or vomiting.. Related Data Home Medications Medication Instructions Recorded Confirmed methotrexate sodium (PF) 25 mg/mL 50 mg IM QWEEK 11/25/21 05/10/23 injection solution pantoprazole 40 mg tablet,delayed 40 mg PO BID 11/25/21 05/10/23 release folic acid 1 mg tablet 1 mg PO BID 07/26/22 05/10/23 hydroxychloroquine 200 mg tablet 200 - 400 mg PO .UD 07/26/22 05/10/23 levonorgestrel 21 mcg/24 hours (8 1 device intrauterine ONCE 07/26/22 05/10/23 yrs) 52 mg intrauterine device (Mirena) ondansetron 4 mg disintegrating 4 mg PO Q8H PRN 04/07/23 05/10/23 tablet Previous Rx's Medication Instructions Recorded hydroxyzine HCl 25 mg tablet 25 mg PO .As Needed PRN Headaches 10/15/22 #30 tabs tranexamic acid 650 mg tablet 650 mg PO DAILY Vitiligo #30 tabs 12/14/22 semaglutide 2 mg/dose (8 mg/3 mL) 2 mg (0.75 mL) subcut QWEEK 01/13/23 subcutaneous pen injector (Ozempic) Obesity #3 mL ewaxfsnbfy-zdikxmzksmqpk-ehqtsjxq 1 tab PO Q4-6H PRN pain #60 tabs 03/22/23 50 mg-325 mg-40 mg tablet dicyclomine 10 mg capsule 10 mg PO QID PRN abdominal pain 03/22/23 #60 caps galcanezumab-gnlm 120 mg/mL 240 mg (2 mL) subcut ONCE #2 mL 03/22/23 subcutaneous pen injector (Emgality Pen) sumatriptan succinate 6 mg/0.5 mL 6 mg (0.5 mL) subcut .As Needed as 03/22/23 subcutaneous pen injector needed PRN migraine headache #1 mL alprazolam 1 mg tablet 3 mg (3 x 1 mg) PO .HS anxiety #90 04/13/23 tabs potassium chloride 20 mEq 20 meq PO ONCE #30 tabs 04/13/23 tablet,extended release dextroamphetamine-amphetamine ER 15 mg PO DAILY #30 caps 04/20/23 15 mg 24hr capsule,extend release dextroamphetamine-amphetamine ER 30 mg PO DAILY #30 caps 04/20/23 30 mg 24hr capsule,extend release diphenoxylate-atropine 2.5 1 tab PO TID PRN diarrhea #30 tabs 05/10/23 mg-0.025 mg tablet (Lomotil) Allergies Allergy/AdvReac Type Severity Reaction Status Date / Time iodine Allergy Intermediate Fainting, Verified 05/10/23 15:16 sob hydrocodone Allergy Mild Itching Verified 05/10/23 15:16 adhesive Allergy Unknown Rash Verified 05/10/23 15:16 pecan nut Allergy Verified 05/10/23 15:16 Review of Systems Status of ROS: Reports: 6 or more systems reviewed and unremarkable except as noted in History and below [facility] Medical History Diarrhea ?R19.7 - Diarrhea, unspecified (ICD-10) Otitis media ?H66.90 - Otitis media, unspecified, unspecified ear (ICD-10) Sinusitis ?J32.9 - Chronic sinusitis, unspecified (ICD-10) Reflux esophagitis ?K21.00 - Gastro-esophageal reflux disease with esophagitis, without bleeding (ICD-10) Hypokalemia ?E87.6 - Hypokalemia (ICD-10) Abdominal pain ?R10.9 - Unspecified abdominal pain (ICD-10) Systemic lupus erythematosus ?M32.9 - Systemic lupus erythematosus, unspecified (ICD-10) Chloasma ?L81.1 - Chloasma (ICD-10) Headache ?R51.9 - Headache, unspecified (ICD-10) Obesity ?E66.9 - Obesity, unspecified (ICD-10) Complication of gastric band procedure (09/27/18) ?K95.09 - Other complications of gastric band procedure (ICD-10) Autoimmune disease ?M35.9 - Systemic involvement of connective tissue, unspecified (ICD-10) Surgical History History of umbilical hernia repair ?Z98.890 - Other specified postprocedural states (ICD-10) ?Z87.19 - Personal history of other diseases of the digestive system (ICD-10) History of tonsillectomy ?Z90.89 - Acquired absence of other organs (ICD-10) History of surgery on left wrist ?Z98.890 - Other specified postprocedural states (ICD-10) History of right knee surgery ?Z98.890 - Other specified postprocedural states (ICD-10) History of removal of laparoscopic gastric banding device (09/27/18) ?Z98.84 - Bariatric surgery status (ICD-10) History of reduction mammoplasty ?Z98.890 - Other specified postprocedural states (ICD-10) History of laparoscopic adjustable gastric banding (2007) ?Z98.84 - Bariatric surgery status (ICD-10) History of cholecystectomy ?Z90.49 - Acquired absence of other specified parts of digestive tract (ICD- 10) History of abdominoplasty (2018) ?Z98.890 - Other specified postprocedural states (ICD-10) 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 She does awaken is normally responsive and answers appropriately mental status appears appropriate although affect is somewhat flattened. HEENT shows no abnormality no facial asymmetry neck is supple Chest is clear Pulse regular Abdomen benign soft nontender no masses Extremities are no edema Neurologic nonfocal Const: Vital Signs, click to edit/add: Vital Signs - 24 hr 05/11/23 13:06 05/11/23 13:44 Temperature 97.8 F Pulse Rate [Pulse Oximeter] 74 Respiratory Rate 14 Blood Pressure [Ri ght Upper Arm] 98/61 Pulse Oximetry 97 97 Oxygen Delivery Me thod Room Air Room Air Course Vital Signs Vital signs: Initial Vital Signs Temperature 97.8 F 05/11/23 13:06 Temperature Source Temporal Artery Scan 05/11/23 13:06 Pulse Rate 74 05/11/23 13:06 Pulse Rhythm Regular 05/11/23 13:06 Respiratory Rate 14 05/11/23 13:06 Blood Pressure 98/61 05/11/23 13:06 Blood Pressure Mean 73 05/11/23 13:06 Blood Pressure Position Sitting 05/11/23 13:06 Pulse Oximetry 97 05/11/23 13:06 Oxygen Delivery Method Room Air 05/11/23 13:06 Vital Signs Temperature 97.8 F 05/11/23 13:06 Pulse Rate 74 05/11/23 13:06 Respiratory Rate 14 05/11/23 13:06 Blood Pressure 98/61 05/11/23 13:06 Pulse Oximetry 97 05/11/23 13:06 Oxygen Delivery Method Room Air 05/11/23 13:06 Temperature 97.8 F 05/11/23 13:06 Pulse Rate 74 05/11/23 13:06 Respiratory Rate 14 05/11/23 13:06 Blood Pressure 98/61 05/11/23 13:06 Pulse Oximetry 97 05/11/23 13:44 Oxygen Delivery Method Room Air 05/11/23 13:44 Medications Administered Medications: Discontinued Medications Generic Name Dose Route Start Last Admin Trade Name Freq PRN Reason Stop Dose Admin Sodium Chloride 1,000 mls @ 6,000 mls/hr 05/11/23 13:30 05/11/23 13:49 0.9 % Sodium Chloride 1000 Ml IV 05/11/23 13:39 6,000 mls/hr .Q10M JEREMI Administration Loperamide HCl 2 mg 05/11/23 13:21 05/11/23 13:48 Loperamide Hcl 2 Mg Capsule PO 05/11/23 13:22 2 mg ONCE ONE Administration Potassium Bicarbonate 25 meq 05/11/23 14:26 05/11/23 14:45 Potassium Bicarb 25 Meq Effervescent Tab PO 05/11/23 14:27 25 meq ONCE ONE Administration Medical Decision Making MDM Narrative Medical decision making narrative: 52-year-old female with significant psychosocial stress with diarrhea for few days duration. History of esophageal reflux and delayed gastric emptying. History of recent nuclear study in [place] for delayed gastric emptying. Patient this point I think would benefit from IV fluid, lab studies, rehydration, make sure there is no electrolyte imbalance. If these look reassuring I think we can let her go home and follow-up with primary care and surgery is indicated. She is on Protonix. I think could also be reasonable to collect some stool samples such as stool culture, O and P and C diff. Addendum 2:27 p.m. the patient's potassium is low at 3.1 will give her oral potassium bump. Have given hydration patient feels a little better. Will review the other labs a return but thus far they look reassuring, her CRP is only 1.2, white count and hemoglobin are normal LFT show an elevated AST ALT and alk-phos. Would recommend she recheck her liver function tests with primary care over the next week. Lab Data Labs: Lab Results 05/11/23 Range/Units 13:50 WBC 8.71 (4.50-11.00) K/uL RBC 5.34 H (4.00-5.20) m/uL Hgb 15.2 (12.0-16.0) gm/dL Hct 46.0 (33.0-51.0) % MCV 86 (80-100) fL MCH 29 (26-34) pg MCHC 33 (32-36) gm/dL RDW Coeff of Juan M 13.7 (11.5-15.5) % Plt Count 225 (140-440) K/uL Neut % (Auto) 85.3 H (42.0-72.0) % Lymph % (Auto) 9.3 L (20-44) % [place] % (Auto) 4.5 (0.0-11.0) % Eos % (Auto) 0.2 (0.0-7.0) % Baso % (Auto) 0.1 (0.0-3.0) % Neut # (Auto) 7.40 H (1.7-7.0) K/uL Lymph # (Auto) 0.80 L (0.90-2.90) K/uL [place] # (Auto) 0.40 (0.00-0.90) K/UL Eos # (Auto) 0.02 (0.00-0.50) K/uL Baso # (Auto) 0.01 (0.00-0.30) K/uL Abs Immat Gran (auto) 0.05 (0.00-0.30) K/uL Imm/Tot Granulo (auto) 0.6 % Sodium 138 (135-149) mmol/L Potassium 3.1 L (3.6-5.1) mmol/L Chloride 105 (96-114) mmol/L Carbon Dioxide 21 (20-32) mmol/L Anion Gap 12 (7-15) mEq/L BUN 13 (7-30) mg/dL Creatinine 0.6 (0.5-1.5) mg/dL Estimated Creat Clear 91.76 Estimated GFR 109 ml/min Glucose 76 (60-115) mg/dL Lactate 1.2 (0.5-1.9) mmol/L Calcium 9.0 (8.4-10.6) mg/dL Total Bilirubin 1.1 (0.1-1.5) mg/dL Direct Bilirubin 0.5 (0.0-0.5) mg/dL AST 85 H (12-35) U/L ALT 93 H (4-35) U/L Alkaline Phosphatase 238 H (40-150) U/L C-Reactive Protein 1.2 H (0.5-1.0) mg/dL Total Protein 7.7 (6.0-8.3) g/dL Albumin 4.7 (3.3-5.0) g/dL SARS-CoV-2 (PCR) Negative SARS-CoV-2 (Negative) Influenza Type A (PCR) Negative PCR FLU A (Negative) Influenza Type B (PCR) Negative PCR FLU B (Negative) RSV (PCR) Negative PCR RSV (Negative) Discharge Plan Discharge Clinical Impression: Diarrhea, Psychosocial stressors, Acute dehydration Patient Disposition: Home w/ Parent or Adult Condition: Improved Additional Instructions: Rest, light activity, off work for few days until improved. Stool samples for home if he did collect him here, just bring them back to the hospital. Imodium as needed for diarrhea. Return to ED as needed. Your liver tests were just a little bit elevated in this sometimes happens when people are ill, would recomm end he recheck these with her regular doctor within the next week to 10 days. Your potassium was also little bit low and recommend high potassium containing foods such as orange is green leafy vegetables salad. Activity Level: Light activity Activity Detail: Off work for 3 days Discharge Diet: Full Liquid Diet Detail: Advance diet as tolerated, make sure to eat yogurt daily Prescriptions: No Action methotrexate sodium (PF) 25 mg/mL solution 50 mg IM QWEEK pantoprazole 40 mg tablet,delayed release (DR/EC) 40 mg PO BID folic acid 1 mg tablet 1 mg PO BID hydroxychloroquine 200 mg tablet 200 - 400 mg PO .UD Rx Instructions: Alternates every other day between 200 and 400mg. Mirena 21 mcg/24 hours (8 yrs) 52 mg intrauterine device 1 device intrauterine ONCE Rx Instructions: as a single dose dicyclomine 10 mg capsule 10 mg PO QID PRN (Reason: abdominal pain) Qty: 60 0RF Emgality Pen 120 mg/mL pen injector 240 mg subcut ONCE Qty: 2 0RF Rx Instructions: as a single dose; administer as two 120 mg injections at separate sites sumatriptan succinate 6 mg/0.5 mL pen injector 6 mg subcut .As Needed as needed PRN (Reason: migraine headache) Qty: 1 3RF Rx Instructions: 3 boxes with 3 refills. beieeonaxs-imrofgamjhral-vsdo 50-325-40 mg tablet 1 tab PO Q4-6H PRN (Reason: pain) Qty: 60 0RF dextroamphetamine-amphetamine 15 mg capsule,extended release 24hr 15 mg PO DAILY Qty: 30 0RF dextroamphetamine-amphetamine 30 mg capsule,extended release 24hr 30 mg PO DAILY Qty: 30 0RF diphenoxylate-atropine [Lomotil] 2.5-0.025 mg tablet 1 tab PO TID PRN (Reason: diarrhea) Qty: 30 0RF ondansetron 4 mg tablet,disintegrating 4 mg PO Q8H PRN potassium chloride 20 mEq tablet extended release 20 meq PO ONCE Qty: 30 3RF alprazolam 1 mg tablet 3 mg PO .HS Qty: 90 0RF hydroxyzine HCl 25 mg tablet 25 mg PO .As Needed PRN (Reason: Headaches) Qty: 30 2RF tranexamic acid 650 mg tablet 650 mg PO DAILY Qty: 30 0RF Ozempic 2 mg/dose (8 mg/3 mL) pen injector 2 mg subcut QWEEK Qty: 3 0RF Follow Up/Referrals: Taran Rivas MD [Primary Care Provider] - Stand Alone Forms: [employer] Info Instructions
--- OUTSIDE RECORDS SUMMARY | 2023-05-11 13:26 | XMS_ITS | Referral Summary ---
Author Name Unknown Organization [facility] Address [address] [place] [address] Care Team Providers Care Nitroglycerin Separator Operator Name Role Phone Elsewhere, Pcp Primary Care Provider Unavailabl e Source Comments Patient records contain information from all sites at [facility]. For routine questions regarding patient records, call [phone] during business hours, M-F 8:00 AM - 5:00 PM Central Time. Record requests for emergency care only can be directed to [phone] at any time.[facility] Encounters Date Type Department Care Team Description 02/28/2023 Clinical Communication Division of Gastroenterology in [place], [place] [address] [place] [phone] Julián Edouard M.D. 02/13/2023 E-Visit Division of Rheumatology in [place], [place] [address] [place] [phone] Velma Munson, GRAIN FARMWORKER, C.N.P. RA/Autoimmune from Last 3 Months Allergies Active Allergy Reactions Criticality Noted Date Comments Adhesive Other (see comments) 08/10/2022 Adhesive Tape-Silicones Rash 01/30/2015 Hydrocodone Other (see comments) Low 08/10/2022 Hydrocodone-Acetaminoph en Other (see comments),Itching,Na usea Only 08/28/2014 Per [facility], reaction unknown Iodine Other (see comments),Shortness of breath (Reselect Reaction) High 08/28/2014 fainting Other reaction(s): Fainting, sob Pecan Nut Swelling,Edema (Reselect Reaction),Angioedema (Reselect Reaction) Medium 01/30/2015 Medications Medication Sig Dispensed Refills Start Date End Date Status SUMAtriptan (IMITREX STATDOSE) 6 mg/0.5 mL injection pen Inject under the skin as needed. Uses 2-4x/month for migraine. Uses once and then once again after 1h if no effect. 0 03/19/2015 Active hydrOXYzine (ATARAX) 25 mg tablet Take 25 mg by mouth every 6 (six) hours as needed for itching. 0 Active acetaminophen (TYLENOL) 500 mg tablet Take 500 mg by mouth as needed. 0 Active aspirin/acetaminop hen/caffeine (EXCEDRIN MIGRAINE ORAL) Take 1 tablet by mouth as needed. 0 Active ALPRAZOLAM ORAL Take 2 mg by mouth at bedtime as needed for anxiety. 0 Active modafiniL (PROVIGIL) 100 mg tablet Take 100 mg by mouth daily. 0 Active diphenhydramine-li docaine 2 %-antacid (mw) Take 5-10 mL by mouth 4 (four) times a day after meals and bedtime. Hold in mouth for 1 minute.Do not eat or drink for 15-30 minutes after use. 480 mL 11 08/12/2020 Active Additional Information Patient not taking.Reported on 09/28/2022 diclofenac sodium (Voltaren) 1 % gel Apply 2 g topically 4 (four) times a day. Apply to hands. 100 g 1 11/06/2020 Active tranexamic acid (LYSTEDA) 650 mg tablet Take 650 mg by mouth daily. 0 Active butalbital-acetami nophen-caff (ESGIC) 50-325-40 mg per tablet Take 1 tablet by mouth every 4 (four) hours as needed. 0 Active famotidine (PEPCID) 40 mg tablet Take 1 tablet (40 mg total) by mouth 2 (two) times a day. 180 tablet 11 11/03/2021 Active sucralfate (CARAFATE) 1 gram tablet TAKE 1 TABLET (1 G TOTAL) BY MOUTH 4 (FOUR) TIMES A DAY. TAKE 1 HOUR BEFORE MEALS AND AT BEDTIME 360 tablet 3 11/16/2021 Active cephalexin (KEFLEX) 250 mg capsule 0 07/12/2022 Active BinaxNOW COVID-19 Ag Self Test kit TEST DIRECTED TODAY 0 08/26/2022 Active hydrOXYzine (VISTARIL) 25 mg capsule TAKE 1 TO 2 CAPSULES BY MOUTH EVERY 8 HOURS 0 07/23/2022 Active Ozempic 0.25 mg or 0.5 mg (2 mg/3 mL) injection 0 08/13/2022 Active ALPRAZolam (XANAX) 1 mg tablet TAKE 2 TABLETS BY MOUTH EVERY DAY AT BEDTIME FOR ANXIETY 0 09/20/2022 Active nitrofurantoin monohydrate (MACROBID) 100 mg capsule as needed. 0 05/21/2022 05/21/2023 Active topiramate (TOPAMAX) 100 mg tablet Take 100 mg by mouth daily. 0 08/30/2022 Active amphetamine-dextro amphetamine (ADDERALL XR) 15 mg 24 hr capsule Take 15 mg by mouth daily. 0 09/20/2022 Active amphetamine-dextro amphetamine (ADDERALL XR) 30 mg 24 hr capsule Take 30 mg by mouth daily. 0 09/22/2022 Active Ozempic 1 mg/dose (4 mg/3 mL) injection 0 09/21/2022 Active hydrOXYchloroQUINE (PLAQUENIL) 200 mg tabletIndications: Arthritis Inflammatory (HCC) Take 1-2 tablets (200-400 mg total) by mouth daily. Take 1 tab on odd days and 2 tabs on even days 135 tablet 1 09/30/2022 Active methotrexate 25 mg/mL injectionIndicatio ns:Arthritis Inflammatory (HCC) Inject 1 mL (25 mg total) under the skin once a week. 12 mL 1 09/30/2022 Active syringe with needle (BD Tuberculin Syringe) 1 mL 27 x 1/2 syringeIndications :Arthritis Inflammatory (HCC) Inject 1 Syringe under the skin once a week. For use with weekly Methotrexate injections 12 each 1 09/30/2022 Active pilocarpine (SALAGEN) 5 mg tabletIndications: Xerostomia Take 1 tablet (5 mg total) by mouth 3 (three) times a day. 90 tablet 11 09/30/2022 Active RABEprazole (ACIPHEX) 20 mg EC tablet TAKE 1 TABLET BY MOUTH TWICE DAILY BEFORE BREAKFAST AND DINNER 180 tablet 0 12/27/2022 Active predniSONE (DELTASONE) 5 mg tabletIndications: Arthritis Inflammatory (HCC) Take 30mg daily (15mg twice daily) for 3 days, then 20mg daily (10mg twice daily) for 3 days, then 15mg daily for 3 days, than 10mg daily for 3 days, then off. 105 tablet 0 02/18/2023 Active folic acid 1 mg tabletIndications: Arthritis Inflammatory (HCC) Take 3 tablets (3,000 mcg total) by mouth daily. 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 Mixed Irritable Bowel Syndrome 09/05/2017 Arthritis Rheumatoid 07/11/2017 Arthritis Inflammatory 02/06/2015 Immunizations Name Administration Dates Next Due HepB Adult (HEPLISAV-B) 02/21/2019,12/05/2018 Influenza (IM) Preservative Free 02/01/2018 Influenza, Unspecified 02/09/2016 MMR 09/05/2014,07/25/2014 PPD Test 02/23/2021,02/16/2021 SARS-COV-2 (COVID-19) - PFIZ ER (12 years or older) 05/15/2020,04/24/2020 SARS-COV-2 (COVID-19) - PFIZ ER TS(12 years or older) 11/13/2021,08/06/2021 Tdap 07/18/2021,07/11/2014 influenza vaccine quad (FLUZONE/FLUARIX) (6 months and older)(PF) 03/25/2021,01/28/2020,01/23/2020,2018,02/16/2017,01/30/2017,02/09/2016,1 Social History Tobacco Use Types Packs/Day Years Used Date Smoking Tobacco: Never Smokeless Tobacco: Never Tobacco Cessation:Counseling Given: Not Answered Alcohol Use Standard Drinks/Week Comments Not Currently 1 (1 standard drink = 0.6 oz pur e alcohol) Humiliation, Afraid, Rape, and Kick questionnair e Answer Date Recorded Within the last year, have y ou been afraid of your partner or ex-partner? No 11/16/2021 Within the last year, have y ou been humiliated or emotionally abused in other ways by your partner or ex-partner? No Within the last year, have y ou been kicked, hit, slapped, or otherwise physically hurt by your partner or ex-partner? No 11/16/2021 Within the last year, have y ou been raped or forced to have any kind of sexual activity by your partner or ex-partner? No 11/16/2021 Social Connection and Isolat ion Panel [NHANES] Answer Date Recorded In a typical week, how many times do you talk on the phone with family, friends, or neighbors? More than three times a week 11/16/2021 How often do you get togethe r with friends or relatives? Never 11/16/2021 How often do you attend [facility] or yarsanism services? More than 4 times per year 11/16/2021 Do you belong to any clubs o r organizations such as faith groups, unions, fraternal or athletic groups, or school groups? No 11/16/2021 How often do you attend meet ings of the clubs or organizations you belong to? Never 11/16/2021 Are you , , di vorced, , never , or living with a partner? 11/16/2021 AUDIT-C Answer Date Recorded Q1: How often do you have a drink containing alcohol? Monthly or less 11/16/2021 Q2: How many drinks containi ng alcohol do you have on a typical day when you are drinking? Patient does not drink Q3: How often do you have si x or more drinks on one occasion? Never 11/16/2021 Overall Financial Resource Strain (CARDIA) Answe r Date Recorded How hard is it for you to pa y for the very basics like food, housing, medical care, and heating? Somewhat hard 11/16/2021 PHQ-2 Answer Date Recorded PHQ-2 Score 3 10/04/2018 [facility] of Occupat ional Health - Occupational Stress Questionnaire Answer Date Recorded Do you feel stress - tense, restless, nervous, or anxious, or unable to sleep at night because your mind is troubled all the time - these days? To some extent 11/16/2021 Exercise Vital Sign Answer Date Recorde d On average, how many days pe r week do you engage in moderate to strenuous exercise (like a brisk walk)? 0 days 11/16/2021 On average, how many minutes do you engage in exercise at this level? 0 min 11/16/2021 Hunger Vital Sign Answer Date Recorded Within the past 12 months, y ou worried that your food would run out before you got the money to buy more. Never true 11/17/19 22 Within the past 12 months, t he food you bought just didn't last and you didn't have money to get more. Never true 11/16/2021 PRAPARE - Transportation Answer Date Re corded In the past 12 months, has l ack of transportation kept you from medical appointments or from getting medications? No 10/30 In the past 12 months, has l ack of transportation kept you from meetings, work, or from getting things needed for daily living? No 11/16/2021 Housing Stability Vital Sign Answer Jose e Recorded In the last 12 months, was t here a time when you were not able to pay the mortgage or rent on time? No 11/16/2021 In the last 12 months, how many places have you lived? 1 11/16/2021 In the last 12 months, was t here a time when you did not have a steady place to sleep or slept in a nursing home (including now)? No 11/16/2021 Nutrition Answer Date Recorded Nutrition: EVOO Fat Source Yes 11/16 On average, how many serving s of fruits and vegetables do you eat per day (serving size is equal to 1 cup or approximately the size of a tennis ball)? 2-3 11/16/2021 Dental Answer Date Recorded Dental: Regular Dentist Yes 11/17/19 Employment Answer Date Recorded Employment status Employed and actively working without restrictions 11/16/2021 Education Answer Date Recorded What is the highest level of school you have completed or the highest degree you have received? GED or equivalent Sex and Gender Information Value Date Recorded Sex Assigned at Female 01/25/2018 11:49 AM CDT Gender Identity Female 01/25/2018 11:49 AM CDT Sexual Orientation Straight 01/25/2018 11 :49 AM CDT Last Filed Vital Signs Vital Sign Reading Time Taken Comments Blood Pressure 129/85 09/30/2022 10:28 AM CDT Pulse 94 09/30/2022 10:28 AM CDT Temperature 37.1 ??C (98.8 ??F) 09/30/2022 10:28 AM C DT Respiratory Rate 12 11/13/2021 2:41 PM CDT Oxygen Saturation 99% 11/13/2021 2:41 PM CDT Inhaled Oxygen Concentration - - Weight 75.1 kg (165 lb 9.1 oz) 09/30/2022 10:28 AM CDT Height 157.1 cm (5' 1.85) 09/30/2022 10:28 AM C DT Body Mass Index 30.43 09/30/2022 10:28 AM CDT Plan of Treatment Upcoming Encounters Date Type Department Care Team (Latest Contact Info) Description 07/07/2023 12:00 PM LEGISLATIVE ASSISTANT Clinical Communication Virtual Review in [place], [place] [address] [place] [address] 07/11/2023 9:00 AM CDT Appointment Department of Laboratory Medicine and Pathology, [facility], in [address] [phone] Velma Munson APRN, C.N.P. [address] [place] [phone] 07/11/2023 11:15 AM CDT Office Visit Division of Rheumatology in [address] [phone] Velma Munson APRN, C.N.P. [address] [place] [phone] Medical Devices Implanted Type Area Campus Director Device Identifier Shelf Expiration Date Model / Serial / Lot Intrauterine Device Intrauterine Device Uterus Description:IUD Mirena Conversions - Default Historical Implant Device Implanted:05/04 (Quantity not on file) Misc Other Abdomen Description:Body Location - Abdominal. Device Status Text - MiscOther. lapband. Additional Health Concerns Infection Onset Date Last Indicated Protective Environment 09/28/2022 Care Teams Nitroglycerin Separator Operator Relationship Specialty Start Date End Date Elsewhere, Pcp PCP - General Internal Medicine 10/22/19
--- OUTSIDE RECORDS SUMMARY | 2023-05-11 13:26 | XMS_ITS ---
Author Name Unknown Organization [facility] Address [address] [place] [address] Care Team Providers Care Advertisement Distributor Name Role Phone Unavailable Unavailable Unavailable Surgery Details Not on file Complications Check Surgery Details section. Procedure Estimated Blood Loss Check Surgery Details section. Procedure Findings Check Surgery Details section. Procedure Specimens Taken Check Surgery Details section.
--- OUTSIDE RECORDS SUMMARY | 2023-05-11 13:26 | XMS_ITS | Encounter Summary ---
Author Name Unknown Organization [facility] Address [address] [place] [address] Care Team Providers Care Traveling Buyer Name Role Phone Elsewhere, Pcp Primary Care Provider Unavailabl e Encounter Details Date Type Department Care Team (Latest Contact Info) Description 02/28/2023 Clinical Communication Division of Gastroenterology in [place], [place] [address] [place] [phone] Julián Edouard M.D. [address] [place] [phone] Social History Tobacco Use Types Packs/Day Years [...] Never 11/16/2021 How often do you attend chur ch or rastafari services? More than 4 times per year 11/16/2021 Do you belong to any clubs o r organizations such as worship groups, unions, fraternal [...] Answer Date Recorded PHQ-2 Score 3 10/04/2018 [facility] Occupat ional Health - Occupational Stress [...] or slept in a penitentiary (including now)? No 11/16/2021 Nutrition Answer Date [...] Orientation Straight 01/25/2018 11 :49 AM CDT documented as of this encounter Plan of Treatment Upcoming Encounters Date Type Department Care Team (Latest Contact Info) Description 07/07/2023 12:00 PM MANAGER RETAIL SALES Clinical Communication Virtual Review in [place], [place] [address] [place] [address] 07/11/2023 9:00 AM CDT Appointment Department of Laboratory Medicine and Pathology, [facility], in [place], [place] [address] [place] [phone] Velma Munson, LABORATORY ANIMAL CARETAKER, C.N.P. [address] [place] [phone] 07/11/2023 11:15 AM CDT Office Visit Division of Rheumatology in [place], [place] [address] [place] [phone] Velma Munson, LONG, C.N.P. [address] [place] [phone] documented as of this encounter Visit Diagnoses Not on filedocumented in this encounter Additional Health Concerns Infection Onset Date Last Indicated Resolved Time Protective Environment 09/28/2022 09/28/2022 Assessment Noted Time PHQ-9 Depression Total Score: 15 018 1:00 PM MANAGER RETAIL SALES documented as of this encounter Care Teams Traveling Buyer Relationship Specialty Start Date End Date Elsewhere, Pcp PCP - General Internal Medicine 10/22/19 documented as of this encounter
--- OUTSIDE RECORDS SUMMARY | 2023-05-11 13:26 | XMS_ITS | Clinical Summary ---
Author Name Unknown Organization [facility] Address [address] [place] [address] Care Team Providers Care Rn Mds Coordinator Name Role Phone Elsewhere, Pcp Primary Care Provider Unavailabl e Source Comments Patient records contain information from all sites at [facility]. For routine questions regarding patient records, call [phone] during business hours, M-F 8:00 AM - 5:00 PM Central Time. Record requests for emergency care only can be directed to [phone] at any time.[facility] Allergies Active Allergy Reactions Criticality Noted Date [...] 07/11/2017 Arthritis Inflammatory 02/06/2015 Encounters Date Type Department Care Team Description 02/28/2023 Clinical Communication Division of Gastroenterology in [place], [place] [address] [place] [phone] Julián Edouard M.D. 02/13/2023 E-Visit Division of Rheumatology in [place], [place] [address] [place] [phone] Velma Munson, LONG, C.N.P. RA/Autoimmune from Last 3 Months Immunizations Name Administration Dates Next Due HepB Adult (HEPLISAV-B) 02/21/2019,12/05/2018 Influenza (IM) Preservative Free 02/01/2018 Influenza, Unspecified 02/09/2016 MMR 09/05/2014,07/25/2014 PPD Test 02/23/2021,02/16/2021 SARS-COV-2 (COVID-19) - PFIZ ER (12 years or older) 05/15/2020,04/24/2020 SARS-COV-2 (COVID-19) - PFIZ ER TS(12 years or older) 11/13/2021,08/06/2021 Tdap 07/18/2021,07/11/2014 influenza vaccine quad (FLUZONE/FLUARIX) (6 months and older)(PF) 03/25/2021,01/28/2020,01/23/2020,2018,02/16/2017,01/30/2017,02/09/2016,1 Family History Medical History Relation Name Comments Diabetes Father nichole velasquez Alcohol abuse Maternal Grandfather reagan niurka Coronary artery disease Maternal Grandfather reagan roblero Diabetes Maternal Grandfather reagan bah Hypertension Maternal Grandfather reagan bah Arthritis Maternal Grandmother jose e bah Hypertension Maternal Grandmother jose e bah Migraines Maternal Grandmother jose e bah Stroke Maternal Grandmother jose e bah Transient ischemic attack Maternal Grandmother jose e landin onzabrent Hyperlipidemia Mother apple jose Hypertension Mother apple jose Migraines Mother apple jose Sleep apnea Mother apple garcia Thyroid disease Mother apple garcia Diabetes Paternal Grandfather nichole velasquez Hypertension Paternal Grandfather nichole velasquez Sleep apnea Paternal Grandfather nichole velasquez Arthritis Paternal Grandmother hope zaragosa Diabetes Paternal Grandmother hope zaragosa Hypertension Paternal Grandmother hope ron Asthma Sister madisyn tafoya Relation Name Status Comments Father nichole velasquez Maternal Grandfather reagan bah Maternal Grandmother jose e bah Mother apple garcia Paternal Grandfather nichole velasquez Paternal Grandmother hope ron Sister madisyn tafoya Social History Tobacco Use [...] often do you attend chur ch or samaritan services? More than 4 times per year 11/16/2021 Do you belong to any clubs o r organizations such as yarsani groups, unions, fraternal [...] Answer Date Recorded PHQ-2 Score 3 10/04/2018 [facility] of Occupat ional Health - Occupational [...] or slept in a jail (including now)? No 11/16/2021 Nutrition Answer Date [...] (Latest Contact Info) Description 07/07/2023 12:00 PM AIR GUN OPERATOR Clinical Communication Virtual Review in [place], [place] [address] [place] [address] 07/11/2023 9:00 AM CDT Appointment Department of Laboratory Medicine and Pathology, [facility], in [place], [place] [address] [place] [phone] Velma Munson APRN, C.N.P. [address] [place] [phone] 07/11/2023 11:15 AM CDT Office Visit Division of Rheumatology in [place], [place] [address] [place] [phone] Velma Munson APRN, C.N.P. [address] [place] [phone] Health Maintenance Due Date Last Done Comments CT Colonography 1971 Cologuard 1971 Depression Monitoring (PHQ-9) 1971 FIT 1971 Fasting Glucose for Diabetes Screening 1971 HIV Screening 1971 Lipid (Cholesterol) Screening 1971 Hydroxychloroquine (PLAQUENI L) Baseline Exam 01/25/2018 Mammogram 01/30/2018 01/30/2017 (Perf ormed elsewhere), 2014 (Performed elsewhere), 12/26/2012 COVID-19 Vaccine (2022-2 4 season) 2022 11/13/2021, 11/13/2021, 08/06/2021, Additional history exists Hydroxychloroquine (PLAQUENI L) Annual Exam 01/25/2023 Zoster Vaccines (2 of 2) 02/23/2023 12/29/2022 Cervical Cancer Screening 08/15/20232020, 2014 (Performed elsewhere) Colonoscopy 11/19/2030 11/19/2020, 11/19/2020 Colorectal Cancer Screening 11/19/2030 DTaP,Tdap,and Td Vaccines (3 - Td or Tdap) 07/19/2031 07/18/2021, 07/11/2014 Hepatitis C Screening Completed 03/19/2015 Hepatitis B Vaccines Completed 02/21/2019, 02/21/2019, 12/05/2018, Additional history exists Influenza Vaccine Completed 03/02/2023, , 03/25/2021, Additional history exists Pneumococcal vaccine (0-64 years) Aged Out No longer eligible based on patient's age to complete this topic Medical Devices Implanted Type Area Business Continuity Specialist Device Identifier Shelf Expiration Date Model / Serial / Lot Intrauterine Device Intrauterine Device Uterus Description:IUD Mirena Conversions - Default Historical Implant Device Implanted:05/04 (Quantity not on file) Misc Other Abdomen Description:Body Location - Abdominal. Device Status Text - MiscOther. lapband. Additional Health Concerns Infection Onset Date Last Indicated Protective Environment 09/28/2022 3 Care Teams Rn Mds Coordinator Relationship Specialty Start Date End Date Elsewhere, Pcp PCP - General Internal Medicine 10/22/19
--- OUTSIDE RECORDS SUMMARY | 2023-05-11 13:26 | XMS_ITS | Clinical Summary ---
Author Name Unknown Organization [employer] [facility] Address [place], [place] [address] Care Team Providers Care Labor Mediator Name Role Phone Katerina Contreras Unavailable Rohan miller Pcp, No Primary Care Provider Unavailabl e Allergies Active Allergy Reactions Criticality Noted Date Comments Adhesive Tape-Silicones Rash 11/17/2016 Hydrocodone Bitartrate Itching 02/12/2013 Iodine Shortness Of Breath 08/28/2014 Pecan Nut Angioedema 01/10/2017 Hydrocodone-Acetaminophen Itching,Nausea Only 0 08/28/2014 Medications Medication Sig Dispensed Refills Start Date End Date Status lidocaine, viscous, 2% (LIDOCAINE VISCOUS) 2 % solutionIndicatio ns:Tongue pain Swish and spit 15 mL by mouth every 4 hours if needed. 1 Bottle 0 7 Active fluticasone (50 mcg per actuation) nasal solution (FLONASE)Indicati ons:Sinus pressure Inhale 1 [place] into both nostrils once daily. 1 Bottle 2 7 Active SUMAtriptan (IMITREX) 6 mg/0.5 mL subcutaneous pen injectorIndicatio ns:Migraine without aura and with status migrainosus, not intractable INJECT 6 MG SUBCUTANEOUS EVERY 2 HOURS IF NEEDED FOR MIGRAINE. 1 pen 1 7 Active acetaminophen (TYLENOL EXTRA STRGTH) 500 mg tablet Take 500 mg by mouth. 0 Act rosalba ALPRAZolam 2 mg tablet Bedtime as needed 0 0 Active Amphetamine-Dextr oamphetamine (ADDERALL) 30 mg tablet dextroamphetamine-amphe tamine 30 mg tablet 0 Active dextroamphetamine -amphetamine (ADDERALL XR) 15 mg Extended-Release capsule Daily 0 0 Active DULoxetine (CYMBALTA) 60 mg Delayed-release capsule Daily 0 0 Active hydrOXYchloroQUIN E (PLAQUENIL) 200 mg tablet hydroxychloroquine 200 mg tablet 0 0 Active hydrOXYzine pamoate (VISTARIL) 25 mg capsule hydroxyzine pamoate 25 mg capsule 0 Active lansoprazole (PREVACID) 15 mg capsule lansoprazole 15 mg capsule,delayed release 0 Acti ve LORazepam (ATIVAN) 1 mg tablet lorazepam 1 mg tablet 0 Act rosalba nitrofurantoin macrocrystaL (MACRODANTIN) 50 mg capsuleIndication s:Recurrent UTI Take 1 capsule by mouth one time if needed for Other (Specify). Take one tablet PO at time of intercourse 30 capsule 11 0 Active estrogens, conjugated (PREMARIN) 0.625 mg/gram vaginal creamIndications: Recurrent UTI Insert 1 g into the vagina at bedtime. 1 Tube 0 0 Active Active Problems Problem Noted Date Diagnosed Date Insomnia 07/25/2017 Raynaud's disease without gangrene 07/06/2017 Insomnia, idiopathic 01/17/2017 Migraine syndrome 08/26/2016 Mixed connective tissue dise ase (HC). Has seen Rheumatology at [place]. 08/23/2016 Overview: Diagnosis of MCTD made in at [place] when living in [place]. 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 stable. 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 minimal contact, history of Drug Use Hypertension Mother Relation Name Status Comments Father Alive Mother Alive Social History Tobacco Use Types Packs/Day Years Used Date Smoking Tobacco: Never Smokeless Tobacco: Never Tobacco Cessation:Counseling Given: Yes Alcohol Use Standard Drinks/Week Comments Not Currently 0 (1 standard drink = 0.6 oz pur e alcohol) Once a month - Beer PHQ-2 Answer Date Recorded PHQ-2 Score 1 07/03/2018 Sex and Gender Information Value Date Recorded Sex Assigned at Not on file Gender Identity Not on file Sexual Orientation Not on file Obstetrics History Last Filed Vital Signs Vital Sign Reading Time Taken Comments Blood Pressure 109/74 01/23/2020 1:50 PM CDT Pulse 91 01/23/2020 1:50 PM CDT Temperature 37.2 ??C (99 ??F) 10/31/2017 4:0 7 PM CDT Respiratory Rate 18 01/23/2020 1:50 PM CDT Oxygen Saturation 95% 01/23/2020 1:5 0 PM CDT Inhaled Oxygen Concentration - - Weight 77.8 kg (171 lb 9.6 oz) 01/23/2020 1:50 PM CDT Pt weighed with shoes on. Height 158.9 cm (5' 2.56) 10/31/2017 4 :07 PM CDT Body Mass Index 30.83 10/31/2017 4:07 PM CDT Plan of Treatment Health Maintenance Due Date Last Done Comments HIV for age 15-65 12/30/1986 Hepatitis C screening for age 18-79 12/30/1989 Lipids for age 45-75 12/30/2016 Depression screening for age 12+ 07/25/2018 07/25/2017, 06/10/2017, 09/15/2016, Additional history exists Mammogram for age 45-75 08/11/2018 08/11/2017 BMI (ht and wt on same day) for age 18+ 10/31/2018 10/31/2017, 06/27/2017, 06/17/2017, Additional history exists Zoster (shingles) series for age 50+ (1 of 2) 12/30/2021 COVID-19 vaccine series (2022- season) 2022 08/06/2021, 05/15/2020, 04/24/2020 Influenza for age 50-64 2022 01/31/20 17, 02/09/2016, 02/09/2016, Additional history exists Pap test for age 21-65 08/15/2023 , 08/14/2020, 01/14/2015 (Completed outside of [facility]) Tetanus booster 07/11/2024 07/11/2014, 07/11/2014 Colonoscopy through age 75 11/11/2024 11/11/2014 Tdap Completed 07/11/2014, 07/11/2014 Pneumococcal series for age 6-64 Aged Out No longer eligible based on patient's age to complete this topic Care Teams Labor Mediator Relationship Specialty Start Date End Date Pcp, No . PCP - General 02/28/19 Katerina Contreras Sample Steamer 07/21/16
--- OUTSIDE RECORDS SUMMARY | 2023-05-11 13:26 | XMS_ITS | Encounter Summary ---
Author Name Unknown Organization [facility] Address [address] [place] [address] Care Team Providers Care Can Piler Name Role Phone Elsewhere, Pcp Primary Care Provider Unavailabl e Encounter Details Date Type Department Care Team (Late st Contact Info) Description 02/13/2023 E-Visit Division of Rheumatology in [place], [place] [address] [place] [phone] Velma Munson, ASSISTANT CROSS COUNTRY COACH, C.N.P. [address] [place] [phone] RA/Autoimmune Social History Tobacco Use Types Packs/Day Years [...] 11/16/2021 How often do you attend chur or evangelical services? More than 4 times per year 11/16/2021 Do you belong to any clubs o r organizations such as amish groups, unions, fraternal [...] Answer Date Recorded PHQ-2 Score 3 10/04/2018 [facility] - Occupational Stress Questionnaire Answer Date [...] slept in a senior care (including now)? No 11/16/2021 Nutrition Answer Date [...] documented as of this encounter Miscellaneous Notes * Telephone Encounter - Maru Oh R.N. - 02/17/2023 2:30 PM CDT Information Discussed Patient called to answer portal message questions. Although patient reports she would prefer not brittany on prednisone, she is okay with a longer taper. She was on 40 mg of prednisone for three days and her last dose was today. She would also be agreeable to increasing her folic acid again for her hair loss (she has been taking 2 mg per day). She is also taking pantoprazole and was advised to contin ue with that while on the prednisone. PLAN Disposition/Recommendation: recommended continue engagement in self-management activities Information/Education: patient/caller able to teach back Caller agreeable to plan of care: yes The following references were used: nursing clinical judgement and provider will be consulted. * Telephone Encounter - Yoon Khan - 02/14/2023 11:00 AM CDT Duplicate. Previous message was sent to nursing documented in this encounter Plan of Treatment Upcoming Encounters Date Type Department Care Team (Latest Contact Info) Description 07/07/2023 12:00 PM CIRCUS TRAINER Clinical Communication Virtual Review in [place], [place] [address] [place] [address] 07/11/2023 9:00 AM CDT Appointment Department of Laboratory Medicine and Pathology, [facility] in [place], [place] [address] [place] [phone] Velma Munson APRN, C.N.P. [address] [place] [phone] 07/11/2023 11:15 AM CDT Office Visit Division of Rheumatology in [place], [place] [address] [place] [phone] Velma Munson APRN, C.N.P. [address] [place] [phone] documented as of this encounter Visit Diagnoses Diagnosis Arthritis Inflammatory (HCC)- Primary documented in this encounter Additional Health Concerns Infection Onset Date Last Indicated Resolved Time Protective Environment 09/28/2022 09/28/2022 Assessment Noted Time PHQ-9 Depression Total Score: 15 018 1:00 PM CIRCUS TRAINER documented as of this encounter Care Teams Can Piler Relationship Specialty Start Date End Date Elsewhere, Pcp PCP - General Internal Medicine 10/22/19 documented as of this encounter
--- OUTSIDE RECORDS SUMMARY | 2023-05-11 13:27 | XMS_ITS | Encounter Summary ---
Author Name Unknown Organization [facility] Address [address] [place] [address] Care Team Providers Care Shactor Name Role Phone Elsewhere, Pcp Primary Care Provider Unavailabl e Reason for Visit * Reason Comments Med Refill Encounter Details Date Type Department Care Team (Late st Contact Info) Description 12/27/2022 Refill Division of Gastroenterology in [place], [place] [address] [place] [phone] Julián Edouard M.D. [address] [place] [phone] Med Refill Social History Tobacco Use Types Packs/Day Years [...] How often do you attend chur or adventist services? More than 4 times per year 11/16/2021 Do you belong to any clubs o r organizations such as taoism groups, unions, fraternal [...] Answer Date Recorded PHQ-2 Score 3 10/04/2018 [facility] - Occupational Stress Questionnaire Answer Date [...] or slept in a usp (including now)? No 11/16/2021 Nutrition Answer Date [...] (Latest Contact Info) Description 07/07/2023 12:00 PM CASINO GAMING INSPECTOR Clinical Communication Virtual Review in [place], [place] 200 [place] [address] 07/11/2023 9:00 AM CDT Appointment Department of Laboratory Medicine and Pathology, [facility], in [place], [place] [address] [place] [phone] Velma Munson, LONG, C.N.P. [address] [place] [phone] 07/11/2023 11:15 AM CDT Office Visit Division of Rheumatology in [place], [place] [address] [place] [phone] Velma Munson, LONG, C.N.P. [address] [place] [phone] documented as of this encounter Visit Diagnoses Not on filedocumented in this encounter Additional Health Concerns Infection Onset Date Last Indicated Resolved Time Protective Environment 09/28/2022 09/28/2022 Assessment Noted Time PHQ-9 Depression Total Score: 15 018 1:00 PM CASINO GAMING INSPECTOR documented as of this encounter Care Teams Shactor Relationship Specialty Start Date End Date Elsewhere, Pcp PCP - General Internal Medicine 10/22/19 documented as of this encounter
--- OUTSIDE RECORDS SUMMARY | 2023-05-11 13:27 | XMS_ITS | Encounter Summary ---
Author Name Unknown Organization [facility] Address [address] [place] [address] Care Team Providers Care Principal Strategist Name Role Phone Elsewhere, Pcp Primary Care Provider Unavailabl e Reason for Visit * Reason Comments Med Refill Encounter Details Date Type Department Care Team (Late st Contact Info) Description 01/27/2023 Refill Division of Gastroenterology in [place], [place] [address] [place] [phone] Julián Edouard M.D. [address] [place] [phone] Med Refill Social History Tobacco Use Types [...] How often do you attend chur or baptism services? More than 4 times per year 11/16/2021 Do you belong to any clubs o r organizations such as nondenominational groups, unions, fraternal [...] Answer Date Recorded PHQ-2 Score 3 10/04/2018 [facility] - Occupational Stress Questionnaire Answer Date Recorded [...] slept in a care home (including now)? No 11/16/2021 Nutrition Answer [...] (Latest Contact Info) Description 07/07/2023 12:00 PM WATCH DIAL PRINTER Clinical Communication Virtual Review in [place], [place] 200 [place] [address] 07/11/2023 9:00 AM CDT Appointment Department of Laboratory Medicine and Pathology, [facility], in [place], [place] [address] [place] [phone] Velma Munson, LONG, C.N.P. [address] [place] [phone] 07/11/2023 11:15 AM CDT Office Visit Division of Rheumatology in [place], [place] [address] [place] [phone] Velma Munson, LONG, C.N.P. [address] [place] [phone] documented as of this encounter Visit Diagnoses Not on filedocumented in this encounter Additional Health Concerns Infection Onset Date Last Indicated Resolved Time Protective Environment 09/28/2022 09/28/2022 Assessment Noted Time PHQ-9 Depression Total Score: 15 018 1:00 PM WATCH DIAL PRINTER documented as of this encounter Care Teams Principal Strategist Relationship Specialty Start Date End Date Elsewhere, Pcp PCP - General Internal Medicine 10/22/19 documented as of this encounter
--- OUTSIDE RECORDS SUMMARY | 2023-05-11 13:27 | XMS_ITS | Encounter Summary ---
Author Name Unknown Organization [facility] Address [address] [place] [address] Care Team Providers Care Curriculum Development Specialist Name Role Phone Elsewhere, Pcp Primary Care Provider Unavailabl e Reason for Visit * Reason Onset Date Comments Pre-visit Intake 09/28/2022 Encounter Details Date Type Department Care Team (Latest Contact Info) Description 09/28/2022 12:30 PM CDT Clinical Communication Virtual Review in [place], [place] 200 [place] [address] Pre-visit Intake Social History Tobacco Use Types Packs/Day Years [...] often do you attend chur ch or confucianist services? More than 4 times per year 11/16/2021 Do you belong to any clubs o r organizations such as evangelical groups, unions, fraternal [...] Answer Date Recorded PHQ-2 Score 3 10/04/2018 [facility] of Occupat ional Health - Occupational Stress [...] or slept in a snf (including now)? No 11/16/2021 Nutrition Answer Date [...] Pressure - - Pulse - - Temperature - - Respiratory Rate - - Oxygen Saturation - - Inhaled Oxygen Concentration - - Weight 74.4 kg (164 lb) 09/28/2022 12:27 PM CDT Height 160 cm (5' 3) 09/28/2022 12:27 PM CDT Body Mass Index 29.05 09/28/2022 12:27 PM CDT documented in this encounter Plan of Treatment Upcoming Encounters Date Type Department Care Team (Latest Contact Info) Description 07/07/2023 12:00 PM CHIP FRIER Clinical Communication Virtual Review in [address] [phone] 07/11/2023 9:00 AM CDT Appointment Department of Laboratory Medicine and Pathology, [place], in [place], [place] [address] [place] [phone] Velma Munson APRN, C.N.P. [address] [place] [phone] 07/11/2023 11:15 AM CDT Office Visit Division of Rheumatology in [place], [place] [address] [place] [phone] Velma Munson APRN, C.N.P. [address] [place] [phone] documented as of this encounter Visit Diagnoses Not on filedocumented in this encounter Additional Health Concerns Infection Onset Date Last Indicated Resolved Time Protective Environment 09/28/2022 09/28/2022 Assessment Noted Time PHQ-9 Depression Total Score: 15 018 1:00 PM CHIP FRIER documented as of this encounter Care Teams Curriculum Development Specialist Relationship Specialty Start Date End Date Elsewhere, Pcp PCP - General Internal Medicine 10/22/19 documented as of this encounter
--- OUTSIDE RECORDS SUMMARY | 2023-05-11 13:27 | XMS_ITS | Encounter Summary ---
Author Name Unknown Organization [facility] Address [address] [place] [address] Care Team Providers Care Information Systems Professor Name Role Phone Elsewhere, Pcp Primary Care Provider Unavailabl e Reason for Referral * Outpatient (Routine) - Authorized Specialty Diagnoses / Procedures Referred By Contact Referred To Contact Gastroenterology and Hepatology Diagnoses na Gerardo Raphael M.D. [address] [place] [phone] Julián dEouard M.D. [address] [place] [phone] Referral ID Status Reason Start Date Expiration Date V isits Requested Visits Authorized [id number] Authorized 07/16/2022 07/15/2025 1 1 Encounter Details Date Type Department Care Team (Late st Contact Info) Description 07/16/2022 Orders Only Division of Thoracic Surgery in [place], [place] [address] [place] [phone] Haritha Naik R.N., C.M.S.R.N. [address] [place] [phone] Social History Tobacco Use Types Packs/Day Years [...] Never 11/16/2021 How often do you attend [facility] or roman catholic services? More than 4 times per year [...] Answer Date Recorded PHQ-2 Score 3 10/04/2018 [facility] of Occupat ional Health - Occupational Stress [...] money to buy more. Never true 11/17/19 Within the past 12 months, t he [...] slept in a senior living (including now)? No 11/16/2021 Nutrition Answer Date [...] (Latest Contact Info) Description 07/07/2023 12:00 PM SOLO TRUCK DRIVER Clinical Communication Virtual Review in [place], [place] [address] [place] [address] 07/11/2023 9:00 AM CDT Appointment Department of Laboratory Medicine and Pathology, [facility] in [place], [place] [address] [place] [phone] Velma Munson APRN, C.N.P. [address] [place] [phone] 07/11/2023 11:15 AM CDT Office Visit Division of Rheumatology in [place], [place] [address] [place] [phone] Velma Munson APRN, C.N.P. [address] [place] [phone] Scheduled Referrals Name Type Priority Associated Diagnoses Orde r Schedule Return to provider in another specialty Outpatient Referral Routine Expected: 07/16/2022 (Approximate), Expires: 10/17/2023 documented as of this encounter Visit Diagnoses Not on filedocumented in this encounter Additional Health Concerns Assessment Noted Time PHQ-9 Depression Total Score: 15 018 1:00 PM SOLO TRUCK DRIVER documented as of this encounter Care Teams Information Systems Professor Relationship Specialty Start Date End Date Elsewhere, Pcp PCP - General Internal Medicine 10/22/19 documented as of this encounter
--- OUTSIDE RECORDS SUMMARY | 2023-05-11 13:27 | XMS_ITS | Clinical Summary ---
Author Name Unknown Organization [facility] Address [address] [place] [address] Care Team Providers Care Sales Consultant Insurance Name Role Phone Unavailable Primary Care Provider Unavailabl e Source Comments You are receiving this document as you are listed as the primary care provider,follow-up provider, or the patient has been referred to you for consultation.This is in compliance with the Medicare andMedicaid EHR Incentive Program,which states Providers who transition their patient to another setting of careor provider of care or refers their patient to another provider of care shouldprovide summary care record for each transition of care or referral. [facility] Allergies Active Allergy Reactions Criticality Noted Date Comments Hydrocodone Itching 09/02/2020 Iodine Other, see comments 09/02/2020 Fainting, SOB Pecan Nut (Diagnostic) Edema,generalized 2020 Medications Medication Sig Dispensed Refills Start Date End Date Status METHOTREXATE OR Inject 50 mg. 0 Active amphetamine-dextro amphetamine (ADDERALL XR) 30 MG 24 hour release capsule Take 30 mg by mouth daily. 0 Active amphetamine-dextro amphetamine (ADDERALL XR) 15 MG 24 hour release capsule Take 15 mg by mouth daily. 0 Active LORazepam (ATIVAN) 2 MG tablet Take 2 mg by mouth every 6 hours as needed for Anxiety. 0 Active aluminum-magnesium antacid-diphenhydr SXNXP-iwmwepdoc-qj statin (MAGIC MOUTHWASH) suspension Swish and spit 5 mL in mouth every 4 hours as needed. 1:1:1:1 ratio 0 Active modafinil (PROVIGIL) 100 MG tablet Take 100 mg by mouth daily. 0 Active folic acid 1 MG tablet Take 1 mg by mouth daily. 0 Active sucralfate (CARAFATE) 1 g tablet Take 1 g by mouth 4 times a day. 0 Active SUMAtriptan (IMITREX STATDOSE REFILL) 6 MG/0.5ML injection Inject 6 mg subcutaneously once as needed. 0 Active hydroxychloroquine (PLAQUENIL) 200 MG tablet Take by mouth daily. 0 Acti ve butalbital-acetami nophen-caffeine (FIORICET) 50-325-40 MG tablet Take 1 Tablet by mouth every 4 hours as needed for Pain. 0 Active omeprazole (PRILOSEC) 20 MG capsule Take 20 mg by mouth daily. Take 1 hour before a meal. 0 Active hydrOXYzine HCl (ATARAX) 25 MG tablet Take 25 mg by mouth three times a day as needed. 0 Active nitrofurantoin monohydrate macrocrystal (MACROBID) 100 MG capsuleIndications :Chronic UTI,Recurrent UTI Take 1 capsule by mouth 2 times daily for 7 days for self start bladder infection treatment. 14 Capsule 4 05/21/2022 4 Active estradiol (ESTRACE) 0.1 MG/GM vaginal creamIndications:V aginal atrophy Place a dime size amount on your finger and place in vagina nightly. 42.5 g 3 05/21/2022 Active Active Problems Problem Noted Date Diagnosed Date Mixed connective tissue disease 09/02/2020 Prolactinoma 09/02/2020 Social History Tobacco Use Types Packs/Day Years Used Date Smoking Tobacco: Never Smokeless Tobacco: Never Sex and Gender Information Value Date Recorded Sex Assigned at Not on file Gender Identity Not on file Sexual Orientation Not on file Plan of Treatment Health Maintenance Due Date Last Done Comments Cervical Cancer Screening Due 1971 Colon Cancer Screening Plan Due 1971 Hep C Screening (Preventive Services) 1971 HepB (1) 1971 COVID-19 Vaccine (#1) 06/29/1972 HIV Screening (Preventive Services) 1987 Adult Preventive Visit 12/30/1989 Cholesterol 12/30/2016 Mammogram 01/29/2017 01/30/2016, 12/31, 12/26/2012 Zoster/Shingles (1 of 2) 12/30/2021 Influenza (#1) 2022 01/31/2022, 03/03, 01/28/2020, Additional history exists DTaP/Tdap/Td (3 - Tdap) 07/19/2031 07/18/2021, 07/11 HepA Aged Out No longer eligi ble based on patient's age to complete this topic Hib Aged Out No longer eligi ble based on patient's age to complete this topic IPV (Polio) Aged Out No longer eligi ble based on patient's age to complete this topic MCV4 Aged Out No longer eligi ble based on patient's age to complete this topic Pneumococcal Aged Out No longer eligi ble based on patient's age to complete this topic
--- OUTSIDE RECORDS SUMMARY | 2023-05-11 13:27 | XMS_ITS | Encounter Summary ---
Author Name Unknown Organization [facility] Address [address] [place] [address] Care Team Providers Care Jack Strip Assembler Name Role Phone Elsewhere, Pcp Primary Care Provider Unavailabl e Encounter Details Date Type Department Care Team (Late st Contact Info) Description 07/27/2022 Clinical Communication Division of Thoracic Surgery in [place], [place] [address] [place] [phone] Gerardo Raphael M.D. [address] [place] [address] Social History Tobacco Use Types Packs/Day Years [...] often do you attend chur ch or congregation services? More than 4 times per year 11/16/2021 Do you belong to any clubs o r organizations such as zoroastrianism groups, unions, fraternal [...] Answer Date Recorded PHQ-2 Score 3 10/04/2018 [facility] of Occupat ional Health - [...] or slept in a long-term (including now)? No 11/16/2021 Nutrition Answer Date [...] (Latest Contact Info) Description 07/07/2023 12:00 PM WINDOW ASSEMBLER Clinical Communication Virtual Review in [place], [place] [address] [place] [address] 07/11/2023 9:00 AM CDT Appointment Department of Laboratory Medicine and Pathology, [facility], in [place], [place] [address] [place] [phone] Velma Munson, STORE LEADER, C.N.P. [address] [place] [phone] 07/11/2023 11:15 AM CDT Office Visit Division of Rheumatology in [place], [place] [address] [place] [phone] Velma Munson, LONG, C.N.P. [address] [place] [phone] documented as of this encounter Visit Diagnoses Not on filedocumented in this encounter Additional Health Concerns Assessment Noted Time PHQ-9 Depression Total Score: 15 018 1:00 PM WINDOW ASSEMBLER documented as of this encounter Care Teams Jack Strip Assembler Relationship Specialty Start Date End Date Elsewhere, Pcp PCP - General Internal Medicine 10/22/19 documented as of this encounter
--- OUTSIDE RECORDS SUMMARY | 2023-05-11 13:27 | XMS_ITS | Encounter Summary ---
Author Name Unknown Organization [facility] Address [address] [place] [address] Care Team Providers Care Auto Radio Mechanic Name Role Phone Elsewhere, Pcp Primary Care Provider Unavailabl e Encounter Details Date Type Department Care Team (Latest Contact Info) Description 09/30/2022 8:20 AM CDT - 09/30/2022 11:59 PM CDT Hospital Encounter Department of Laboratory Medicine and Pathology, [facility] in [place], [place] [address] [place] [address] Velma Munson, LONG, C.N.P. [address] [place] [address] Arthritis Inflammatory (HCC) Discharge Disposition: Home or Self Care Social History Tobacco Use Types Packs/Day Years [...] How often do you attend chur or synagogue services? More than 4 times per year 11/16/2021 Do you belong to any clubs o r organizations such as congregational groups, unions, fraternal [...] Answer Date Recorded PHQ-2 Score 3 10/04/2018 [facility] of Occupat ionms Health - Occupational Stress Questionnaire Answer Date [...] or slept in a fdc (including now)? No 11/16/2021 Nutrition Answer Date [...] Refills Start Date End Date acetaminophen (TYLENOL) 500 mg tablet Take 500 mg by mouth as needed. 0 ALPRAZolam (XANAX) 1 mg tablet TAKE 2 TABLETS BY MOUTH EVERY DAY AT BEDTIME FOR ANXIETY 0 09/20/2022 ALPRAZOLAM ORAL Take 2 mg by mouth at bedtime as needed for anxiety. 0 amphetamine-dextroamp hetamine (ADDERALL XR) 15 mg 24 hr capsule Take 15 mg by mouth daily. 0 09/20/2022 amphetamine-dextroamp hetamine (ADDERALL XR) 30 mg 24 hr capsule Take 30 mg by mouth daily. 0 09/22/2022 aspirin/acetaminophen /caffeine (EXCEDRIN MIGRAINE ORAL) Take 1 tablet by mouth as needed. 0 BinaxNOW COVID-19 Ag Self Test kit TEST DIRECTED TODAY 0 08/26/2022 butalbital-acetaminop hen-caff (ESGIC) 50-325-40 mg per tablet Take 1 tablet by mouth every 4 (four) hours as needed. 0 cephalexin (KEFLEX) 250 mg capsule 0 07/12/2022 diclofenac sodium (Voltaren) 1 % gel Apply 2 g topically 4 (four) times a day. Apply to hands. 100 g 1 11/06/2020 diphenhydramine-lidoc chay 2 %-antacid (mw) Take 5-10 mL by mouth 4 (four) times a day after meals and bedtime. Hold in mouth for 1 minute.Do not eat or drink for 15-30 minutes after use. 480 mL 11 08/12/2020 famotidine (PEPCID) 40 mg tablet Take 1 tablet (40 mg total) by mouth 2 (two) times a day. 180 tablet 11 11/03/2021 hydrOXYchloroQUINE (PLAQUENIL) 200 mg tabletIndications:Art hritis Inflammatory (HCC) Take 1-2 tablets (200-400 mg total) by mouth daily. Take 1 tab on odd days and 2 tabs on even days 135 tablet 1 09/30/2022 hydrOXYzine (ATARAX) 25 mg tablet Take 25 mg by mouth every 6 (six) hours as needed for itching. 0 hydrOXYzine (VISTARIL) 25 mg capsule TAKE 1 TO 2 CAPSULES BY MOUTH EVERY 8 HOURS 0 07/23/2022 methotrexate 25 mg/mL injectionIndications: Arthritis Inflammatory (HCC) Inject 1 mL (25 mg total) under the skin once a week. 12 mL 1 09/30/2022 modafiniL (PROVIGIL) 100 mg tablet Take 100 mg by mouth daily. 0 nitrofurantoin monohydrate (MACROBID) 100 mg capsule as needed. 0 05/21/2022 05/21/2023 Ozempic 0.25 mg or 0.5 mg (2 mg/3 mL) injection 0 08/13/2022 Ozempic 1 mg/dose (4 mg/3 mL) injection 0 09/21/2022 pilocarpine (SALAGEN) 5 mg tabletIndications:Xer ostomia Take 1 tablet (5 mg total) by mouth 3 (three) times a day. 90 tablet 11 09/30/2022 sucralfate (CARAFATE) 1 gram tablet TAKE 1 TABLET (1 G TOTAL) BY MOUTH 4 (FOUR) TIMES A DAY. TAKE 1 HOUR BEFORE MEALS AND AT BEDTIME 360 tablet 3 11/16/2021 SUMAtriptan (IMITREX STATDOSE) 6 mg/0.5 mL injection pen Inject under the skin as needed. Uses 2-4x/month for migraine. Uses once and then once again after 1h if no effect. 0 03/19/2015 syringe with needle (BD Tuberculin Syringe) 1 mL 27 x 1/2 syringeIndications:Ar thritis Inflammatory (HCC) Inject 1 Syringe under the skin once a week. For use with weekly Methotrexate injections 12 each 1 09/30/2022 topiramate (TOPAMAX) 100 mg tablet Take 100 mg by mouth daily. 0 08/30/2022 tranexamic acid (LYSTEDA) 650 mg tablet Take 650 mg by mouth daily. 0 folic acid 1 mg tabletIndications:Art hritis Inflammatory (HCC) Take 2 tablets (2,000 mcg total) by mouth daily. 180 tablet 3 09/30/2022 02/17/2023 pantoprazole (PROTONIX) 40 mg EC tablet TAKE 1 TABLET BY MOUTH TWICE DAILY 180 tablet 2 03/04/2022 01/27/2023 RABEprazole (ACIPHEX) 20 mg EC tablet Take 1 tablet (20 mg total) by mouth 2 (two) times a day before breakfast and dinner. 180 tablet 11 11/03/2021 12/27/2022 documented as of this encounter Plan of Treatment Upcoming Encounters Date Type Department Care Team (Latest Contact Info) Description 07/07/2023 12:00 PM BLANKET FOLDER Clinical Communication Virtual Review in [place], [place] 200 [place] [address] 07/11/2023 9:00 AM CDT Appointment Department of Laboratory Medicine and Pathology, [facility], in [place], [place] [address] [place] [phone] Velma Munson APRN, C.N.P. [address] [place] [phone] 07/11/2023 11:15 AM CDT Office Visit Division of Rheumatology in [place], [place] [address] [place] [phone] Velma Munson APRN, C.N.P. [address] [place] [phone] documented as of this encounter Procedures Procedure Name Priority Date/Time Associated Diagnosis Comments SEDIMENTATION RATE, B Routine 09/30/2022 8:57 AM CDT Arthritis Inflammatory (HCC) CBC WITH DIFFERENTIAL, B Routine 023 8:57 AM CDT Arthritis Inflammatory (HCC) C-REACTIVE PROTEIN (CRP), S/P Routine 09/30/2022 8:57 AM CDT Arthritis Inflammatory (HCC) ASPARTATE AMINOTRANSFERASE (AST), S/P Routine 09/30/2022 8:57 AM CDT Arthritis Inflammatory (HCC) CREATININE WITH EGFR, S/P Routine 09/30/2022 8:57 AM CDT Arthritis Inflammatory (HCC) documented in this encounter Results * AST (Aspartate Aminotransferase) (09/30/2022 8:57 AM CDT) Aspartate Aminotransferase (AST), S 28 8 - 43 U/L 09/30/2022 10:06 AM CDT DTL Blood (Blood, Venous) 09/30/2022 8:57 AM CDT 09/30/2022 9:33 AM CDT Velma Munson APRN, C.N.P. LAB BLOOD ADD-ON [facility] [address] [place] [address], [facility] [address] [place] [address] * Creatinine with Estimated GFR (09/30/2022 8:57 AM CDT) Creatinine 0.90 0.59 - 1.04 mg/dL 09/30/2022 10:06 AM CDT DT Estimated GFR (eGFR) 78 >=60 mL/min/BSA 09/30/2022 10:06 AM CDT DT Comment: Estimated GFR calculated using the 2020 CKD_EPI creatinine equation. Blood (Blood, Venous) 09/30/2022 8:57 AM CDT 09/30/2022 9:33 AM CDT Velma Munson APRN, C.N.P. LAB BLOOD ADD-ON Performing Organization Address City/[facility]/ZIP Co de Phone Number [facility] [address] [place] [address], [facility] [address] [place] [address] * (ABNORMAL) CRP (C-Reactive Protein) (09/30/2022 8:57 AM CDT) C-Reactive Protein (CRP), S 5.1(H) <5.0 mg/L 09/30/2022 10:06 AM CDT DT Blood (Blood, Venous) 09/30/2022 8:57 AM CDT 09/30/2022 9:33 AM CDT Velma Munson APRN, C.N.P. LAB BLOOD ADD-ON [facility] [address] [place] [address], [facility] [address] [place] [address] * Sedimentation Rate (09/30/2022 8:57 AM CDT) Sedimentation Rate, B 5 2 - 20 mm/h 09/30/2022 10:37 AM CDT DTL Blood (Blood, Venous) 09/30/2022 8:57 AM CDT 09/30/2022 9:18 AM CDT Jorge Polo APRNNLennoxPLennox LAB BLOOD ADD-ON [facility] [address] [place] [address], [facility] DTL [facility] [address] [place] [address] * (ABNORMAL) CBC with Differential, Blood (09/30/2022 8:57 AM CDT) Pathologist [facility] Hemoglobin 15.2(H) 11.6 - 15.0 g/dL 09/30/2022 9:54 AM CDT DTL Hematocrit 45.5(H) 35.5 - 44.9 % 09/30/2022 9:54 AM CDT DTL Erythrocytes 5.36(H) 3.92 - 5.13 x10(12)/L 09/30/2022 9:54 AM CDT DTL MCV 84.9 78.2 - 97.9 fL 09/30/2022 9:54 AM CDT DTL RBC Distrib Width 14.2 12.2 - 16.1 % 09/30/2022 9:54 AM CDT DTL Platelet Count 246 157 - 371 x10(9)/L 09/30/2022 9:54 AM CDT DTL Leukocytes 7.6 3.4 - 9.6 x10(9)/L 09/30/2022 9:54 AM CDT DTL Neutrophils 5.62 1.56 - 6.45 x10(9)/L 09/30/2022 9:54 AM CDT DTL Lymphocytes 1.42 0.95 - 3.07 x10(9)/L 09/30/2022 9:54 AM CDT DTL Monocytes 0.49 0.26 - 0.81 x10(9)/L 09/30/2022 9:54 AM CDT DTL Eosinophils 0.03 0.03 - 0.48 x10(9)/L 09/30/2022 9:54 AM CDT DTL Basophils 0.03 0.01 - 0.08 x10(9)/L 09/30/2022 9:54 AM CDT DTL Blood (Blood, Venous) 09/30/2022 8:57 AM CDT 09/30/2022 9:18 AM CDT Velma Munson APRN C.N.P. LAB BLOOD ADD-ON [facility] [address] [place] [address], [facility] DTL [facility] [address] [place] [address] documented in this encounter Visit Diagnoses Diagnosis Arthritis Inflammatory (HCC) documented in this encounter Additional Health Concerns Infection Onset Date Last Indicated Resolved Time Protective Environment 09/28/2022 09/28/2022 Assessment Noted Time PHQ-9 Depression Total Score: 15 018 1:00 PM BLANKET FOLDER documented as of this encounter Care Teams Auto Radio Mechanic Relationship Specialty Start Date End Date Elsewhere, Pcp PCP - General Internal Medicine 10/22/19 documented as of this encounter
--- OUTSIDE RECORDS SUMMARY | 2023-05-11 13:27 | XMS_ITS | Encounter Summary ---
Author Name Unknown Organization [facility] Address [address] [place] [address] Care Team Providers Care Mechanical Systems Control Engineer Name Role Phone Elsewhere, Pcp Primary Care Provider Unavailabl e Reason for Referral * Outpatient (Routine) - Authorized Specialty Diagnoses / Procedures Referred By Contac t Referred To Contact Rheumatology Diagnoses . Velma Munson APRN, C.N.P. [address] [place] [phone] [facility] Referral ID Status Reason Start Date Expiration Date V isits Requested Visits Authorized [id number] Authorized 09/30/2022 09/29/2025 1 1 Reason for Visit * Outpatient (Routine) - Closed Specialty Diagnoses / Procedures Referred By Contac t Referred To Contact Rheumatology Diagnoses na Velma Munson APRN, C.N.P. [address] [place] [phone] [facility] Referral ID Status Reason Start Date Expiration Date Visits Re quested Visits Authorized [id number] Closed 11/17/2021 11/17/2022 1 1 Encounter Details Date Type Department Care Team (Latest Contact Info) Description 09/30/2022 10:30 AM CDT Office Visit Division of Rheumatology in [place], [place] [address] [place] [phone] Velma Munson APRN, C.N.P. [address] [place] [phone] Arthritis Inflammatory (HCC) (Primary Dx); Xerostomia Social History Tobacco Use Types Packs/Day [...] How often do you attend chur or episcopalian services? More than 4 times per year 11/16/2021 Do you belong to any clubs o r organizations such as adventism groups, unions, fraternal [...] Answer Date Recorded PHQ-2 Score 3 10/04/2018 [facility] of Occupat ional [facility] - Occupational Stress Questionnaire Answer Date Recorded [...] or slept in a custodial (including now)? No 11/16/2021 Nutrition Answer Date [...] 09/30/2022 10:28 AM C DT Respiratory Rate - - Oxygen Saturation - - Inhaled Oxygen Concentration - - Weight 75.1 kg (165 lb 9.1 oz) 09/30/2022 10:28 AM CDT Height 157.1 cm (5' 1.85) 09/30/2022 10:28 AM C DT Body Mass Index 30.43 09/30/2022 10:28 AM CDT documented in this encounter Progress Notes * Velma Munson, LONG, C.N.P. - 09/30/2022 10:30 AM CDT Images from the original note were not included. SUBJECTIVE CHIEF COMPLAINT / REASON FOR VISIT Waleska Diaz is a 51 y.o. female who presents for follow up of inflammatory arthritis. HISTORY OF PRESENT ILLNESS Ms. Diaz is a 51-year-old female inflammatory arthritis with mixed connective tissue [...] Adverse Events Plaquenil 12/2017 Currently Methotrexate 06/2020 MALCOLM MUNOZ and christian methotrexate 07/2021 Lack of refills and feeling better Today, I am seeing Ms. 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 She states she was doing well until April when she stopped the methotrexate because she was feelingbetter. She had a pretty significant flare about 6 weeks ago that lasted for several weeks which affected her hands, the back of her right knee, right trochanteric bursa, and feet. She is had increased fatigue with the flare. She also had migraines during that time. She states that her Raynaud's isworse right now also. She has been on cephalexin for chronic UTIs, which is better. She is following a very specific diet for UTIs. Her Raynaud's is worse during the summer. She continues take Plaquenil 200 mg on [...] (no digital ulcers; worse during the summer), heartburn and dyspnea (harder to walk) Current Symptoms: eyes not dry, no fever, no rash, no weight loss, no excessive bruising, no cough,no chest pain, no edema, no nausea (with migraines), no vomiting, no abdominal pain, no anorexia, no chills, no night sweats, no oral ulcers and no eye inflammation Previous Reports Reviewed:lab reports and office notes The following portions of the patient's history were reviewed and updated as appropriate: family history, medical history, social history, surgical history and problem list. REVIEW OF SYSTEMS Pertinent positives and negatives as documented in the above history of present illness. Constitutional: Positive for fatigue (worsening over the last couple of months). - Negative for chills, fever, loss of appetite, night sweats, weight gain of more than 10 pounds and weight loss. Skin: - Negative for skin rash and breast lump. Eyes: Positive for visual problems. ENT: Positive for difficulty hearing and sinus congestion. Respiratory: - Negative for coughing. Cardiovascular: Positive for pain in the calf muscles when walking. - Negative for chest pain, pressure or tightness and swelling in the legs or feet. Gastrointestinal: Positive for constipation (IBS), diarrhea and heartburn. - Negative for abdominal (belly) pain or cramping, anorexia, nausea (with migraines) and vomiting. Hematologic: Positive for bruises or bleeds easily. Musculoskeletal: Positive for pain or stiffness in the joints (hands, wrists, right hip, toes), back pain (low back and neck), joint swelling and muscle pain/stiffness. Neurological: Positive for seizures (stable), light-headedness, numbness or shooting pain in hands,arms, legs, or feet (left 5th MTP), headaches (daily) and weakness in arms or legs. Psychiatric/Behavioral: Positive for excessive daytime sleepiness/tiredness, loud snoring, little interest or pleasure in doing things over past two weeks and feeling nervous, anxious, or on edge in past two weeks. The following systems were negative: Skin, Respiratory, Genitourinary OBJECTIVE PHYSICAL EXAM Physical Exam General: Alert, [...] are within functional limits bilaterally. Left 1st PIP and right 5th DIP hypertrophy noted. Left 1st PIP is swollen. Lab: CBC with differential:Hbg 15.2. Hct 45.5. RBC 5.36. Creatinine, GFR, and AST all within normal limits. CRP is 5.1. ESR 5. 03/04/2021 08/06/2021 11/16/2021 09/30/2022 Tender joint count (0-28) 2 0 0 2 Swollen joint count (0-28) 0 0 0 1 Patient global assessment (0-100) 60 4 50 77 Nurse Reviewer global assessment (0-100) 30 20 30 50 ESR (mm/h) 17 -- -- 5 CRP (mg/L) 4.8 -- -- 5.1 Disease Activity Score 28 using ESR ([id number]-XCO) 3.62 -- -- 3.28 Disease Activity Score 28 using CRP ([id number]) 3.22 -- -- 3.76 Clinical Disease Activity Index (CDAI) 11 2.4 8 15.7 Simplified Disease Activity Index (SDAI) 11.48 -- -- 16.21 ASSESSMENT / PLAN #1 Arthritis Inflammatory (HCC) #2 SICCA symptoms #3 Worsening Fatigue She is flare right now since she is not been taking her medications due to lack of refills and feeling better. We will restart her on methotrexate 25 mg subq once weekly, folic acid 2 mg daily, pilocarpine 5 mg 3 times a day, and Plaquenil 200 mg on odd days and 400 mg on even days. Patient was in agreement with this plan. I refilled her prescriptions accordingly. #4 High Risk Medication Last Plaquenil eye exam was July 29, 2021. No eye toxicity noted. She is due for a Plaquenil eye exam now. Patient was instructed to have this done locally. I have given her laboratory slip to do labs locally in [place]. I will follow up with her in 6 months. I answered the patients questions to the best of my ability. The patient seemed pleased with our interaction. If she should have any additional questions or concerns. [facility] ' documented in this encounter Plan of Treatment Upcoming Encounters Date Type Department Care Team (Latest Contact Info) Description 07/07/2023 12:00 PM FIELD CARE MANAGER Clinical Communication Virtual Review in [place], [place] 200 [place] [address] 07/11/2023 9:00 AM CDT Appointment Department of Laboratory Medicine and Pathology, [facility], in [address] [phone] Velma Munson APRN, C.N.P. [address] [place] [phone] 07/11/2023 11:15 AM CDT Office Visit Division of Rheumatology in [place], [place] [address] [place] [phone] Velma Munson, LONG, C.N.P. [address] [place] [phone] Scheduled Orders Name Type Priority Associated Diagnoses Orde r Schedule Sedimentation Rate Lab Routine Arthritis Inflammatory (HCC) Expected: 04/01/2023 (Approximate), Expires: 10/01/2023 CBC with Differential, Blood Lab Routine Arthritis Inflammatory (HCC) Expected: 04/01/2023 (Approximate), Expires: 10/01/2023 CRP (C-Reactive Protein) Lab Routine Arthritis Inflammatory (HCC) Expected: 04/01/2023 (Approximate), Expires: 10/01/2023 Creatinine with Estimated GFR Lab Routine Arthritis Inflammatory (HCC) Expected: 04/01/2023 (Approximate), Expires: 10/01/2023 AST (Aspartate Aminotransferase) Lab Routine Arthritis Inflammatory (HCC) Expected: 04/01/2023 (Approximate), Expires: 10/01/2023 Scheduled Referrals Name Type Priority Associated Diagnoses Order Schedule Rheumatology office visit (clinic) Outpatient Referral Routine Expected: 04/01/2023 (Approximate), Expires: 01/01/2024 documented as of this encounter Visit Diagnoses Diagnosis Arthritis Inflammatory (HCC)- Primary Xerostomia documented in this encounter Additional Health Concerns Infection Onset Date Last Indicated Resolved Time Protective Environment 09/28/2022 09/28/2022 Assessment Noted Time PHQ-9 Depression Total Score: 15 018 1:00 PM FIELD CARE MANAGER documented as of this encounter Care Teams Mechanical Systems Control Engineer Relationship Specialty Start Date End Date Elsewhere, Pcp PCP - General Internal Medicine 10/22/19 documented as of this encounter
--- OUTSIDE RECORDS SUMMARY | 2023-05-11 13:27 | XMS_ITS | Encounter Summary ---
Author Name Unknown Organization [facility] Address [address] [place] [address] Care Team Providers Care Counter Top Assembler Name Role Phone Elsewhere, Pcp Primary Care Provider Unavailabl e Encounter Details Date Type Department Care Team (Late st Contact Info) Description 07/15/2022 Clinical Communication Division of Thoracic Surgery in [place], [place] [address] [place] [address] Gerardo Raphael M.D. [address] [place] [address] Social History Tobacco Use Types Packs/Day Years [...] often do you attend chur ch or druze services? More than 4 times per year 11/16/2021 Do you belong to any clubs o r organizations such as baptist groups, unions, fraternal [...] Answer Date Recorded PHQ-2 Score 3 10/04/2018 [facility] - Occupational [...] or slept in a detention (including now)? No 11/16/2021 Nutrition Answer Date [...] encounter Miscellaneous Notes * Telephone Encounter - Haritha Naik R.N., C.M.S.R.N. - 07/16/2022 9:15 AM CDT PLAN The following information was provided: Spoke with Waleska Diaz regarding questions before proceeding with surgery. We talked about staying on a soft diet for 6 weeks as well as a 5-10 lb lifting restriction. We talked about time shewill need off work (average of somewhere between 3-6 weeks). She is wanting to proceed with surgeryas she has been struggling with the GERD recently, but when talking with her work, they both decided November would be the best time for her. She was wondering what can be done until then to help improve symptoms. She said she reached out to the GI team and they suggested proceeding with surgery and there was nothing else they could offer. I inquired what medications she is currently taking for GERD - she mentioned Carafate QID, and she thinks Pantoprazole BID. She is unsure that she has refills for the Pepcid. I inquired if she was taking Rabeprazole still or if she was doing Pantoprazole again - she believes it is the Pantoprazole. I think she would benefit from reconnecting with our GI team to help with medication management until Surgery in the fall. I will discuss with Dr. Brandt as well. She was appreciative of the call. Information/Education: patient/caller able to teach back The following references were used: nursing clinical judgement documented in this encounter Plan of Treatment Upcoming Encounters Date Type Department Care Team (Latest Contact Info) Description 07/07/2023 12:00 PM MEDICAL STENOGRAPHER Clinical Communication Virtual Review in [address] [address] 07/11/2023 9:00 AM CDT Appointment Department of Laboratory Medicine and Pathology, [facility], in [address] [phone] Velma Munson APRN, C.N.P. [address] [place] [phone] 07/11/2023 11:15 AM CDT Office Visit Division of Rheumatology in [address] [phone] Velma Munson APRN, C.N.P. [address] [place] [phone] documented as of this encounter Visit Diagnoses Not on filedocumented in this encounter Additional Health Concerns Assessment Noted Time PHQ-9 Depression Total Score: 15 04/21/ 018 1:00 PM MEDICAL STENOGRAPHER documented as of this encounter Care Teams Counter Top Assembler Relationship Specialty Start Date End Date Elsewhere, Pcp PCP - General Internal Medicine 10/22/19 documented as of this encounter
--- OUTSIDE RECORDS SUMMARY | 2023-05-11 13:27 | XMS_ITS | Encounter Summary ---
Author Name Unknown Organization [facility] Address [address] [place] [address] Care Team Providers Care Hoisting Engineer Name Role Phone Elsewhere, Pcp Primary Care Provider Unavailabl e Reason for Visit * Reason Onset Date Comments Med Question 07/13/2022 Encounter Details Date Type Department Care Team (Latest Contact Info) Description 07/13/2022 Clinical Communication Division of Gastroenterology in [place], [place] [address] [place] [address] Julián Edouard M.D. [address] [place] [address] Med Question Social History Tobacco Use Types Packs/Day Years [...] often do you attend chur ch or mandaeism services? More than 4 times per year 11/16/2021 Do you belong to any clubs o r organizations such as jew groups, unions, fraternal [...] Answer Date Recorded PHQ-2 Score 3 10/04/2018 [facility] Questionnaire Answer Date [...] or slept in a fpc (including now)? No 11/16/2021 Nutrition Answer Date [...] (Latest Contact Info) Description 07/07/2023 12:00 PM QUILL PICKING MACHINE OPERATOR Clinical Communication Virtual Review in [place], [place] [address] [place] [address] 07/11/2023 9:00 AM CDT Appointment Department of Laboratory Medicine and Pathology, [facility], in [place], [place] [address] [place] [phone] Velma Munson, BATTERBOARD SETTER, C.N.P. [address] [place] [phone] 07/11/2023 11:15 AM CDT Office Visit Division of Rheumatology in [place], [place] [address] [place] [phone] Velma Munson APRN, C.N.P. [address] [place] [address] documented as of this encounter Visit Diagnoses Not on filedocumented in this encounter Additional Health Concerns Assessment Noted Time PHQ-9 Depression Total Score: 15 018 1:00 PM QUILL PICKING MACHINE OPERATOR documented as of this encounter Care Teams Hoisting Engineer Relationship Specialty Start Date End Date Elsewhere, Pcp PCP - General Internal Medicine 10/22/19 documented as of this encounter
--- OUTSIDE RECORDS SUMMARY | 2023-05-11 13:27 | XMS_ITS | Encounter Summary ---
Author Name Unknown Organization [facility] Address [address], [place] [address] Care Team Providers Care Senior Communications Specialist Name Role Phone Unavailable Primary Care Provider Unavailabl e Reason for Referral * Therapies (Routine) - New Request Specialty Diagnoses / Procedures Referred By Contpierre t Referred To Contact Diagnoses Cystitis Recurrent UTI Pelvic floor dysfunction Noelle Dietrich PA-C [address] [place] [address] Referral ID Status Reason Start Date Expiration Date V isits Requested Visits Authorized [id number] New Request 05/21/2022 05/21/2023 1 1 Scheduling Instructions This order is your clinician's recommendation for a service and is not an insurance referral which authorizes payment. The recommended service and/or location may not be covered by your insurance plan. Please call the number on your insurance card to find out your specific benefits and coverage for the recommended services and/or location. If you need help scheduling the recommended services, please ask your clinician's staff to assist you. Question Answer Appointment Urgency? Non-Urgent Requested Services Evaluate and treat May use saline for irrigation or cleansing Yes Choose specific service if desired Pelvic Health dexamethasone use Yes May check glucose per protocol (see policy link below) or if patient has symptoms? Yes Comments S ROOM SUPERVISOR Reason for Visit * Reason Comments CONSULT Encounter Details Date Type Department Care Team Description 05/21/2022 2:00 PM PRESS ROOM SUPERVISOR Office Visit [facility] [id number] [address] [place] [address] Noelle Dietrich PA-C [address] [place] [address] Recurrent UTI (Primary Dx); Chronic UTI; Cystitis; Pelvic floor dysfunction; Vaginal atrophy; History of rheumatoid arthritis; Mixed connective tissue disease (HRC); Chronic GERD; IC (interstitial cystitis) Social History Tobacco Use Types Packs/Day Years Used Date Smoking Tobacco: Never Smokeless Tobacco: Never Sex and Gender Information Value Date Recorded Sex Assigned at Not on file Gender Identity Not on file Sexual Orientation Not on file documented as of this encounter Progress Notes * Noelle Dietrich PA-C - 05/21/2022 2:00 PM CST UROLOGY CONSULT CC: Chronic UTI, interstitial cystitis (IC). S: Waleska Diaz is a 51 y.o. female with rheumatoid arthritis (RA), mixed connective tissue disorder, hiatal hernia and severe GERD who is self referred for interstitial cystitis (IC) and recurrent urinary tract infections (UTIs). Record Review/History: - no prior PN urology notes - no diagnostics in our system, latest urine from 08/2018 demonstrating 1+ bili and 3+ blood (no micro, no UC) - Care Everywhere revealed multiple [facility] and [facility] notes - 11/03/2021 SCR 0.91, GFR 74 - 09/27/2018 CT abd/pelvis w/ contrast negative for stones or renal mass, gastric band slippage resulting in eccentric pouch dilatation and marked dilatation of a fluid, gas, and debris-filled distalesophagus - 04/13/2017 UC 50-100,000 E coli (R Bactrim, amp, cefazolin; I pip/tazo) - 03/14/2017 UC 50-100,000 E coli (R Bactrim, amp) - 05/17/2016 UC >100,000 E coli (R Bactrim, amp, cefazolin) HPI: - patient reports monthly symptomatic UTIs - evaluated by urology in [place] 4-5 years ago - has been told she has IC (interstitial cystitis) - UTIs have been an issue for the last couple of years - UTI symptoms: malodor, cloudiness, pelvic pressure (no pain, no dysuria, no gross hematuria) - was previously advised to use pericoital prophylaxis and vaginal estrogen - did okay for a while with this regimen of prophylaxis and estrogen but the last 1-2 years things have worsened again - now just feeling chronically infected - usually Rx'd Macrobid - LUTS are a bit better since cutting out coffee - has terrible stomach problems with IBS and diarrhea, occasional explosive stools - diligent about pericares, using wet wipes to aid in cleansing - had rectal manometry testing through [facility] and was told her pelvic floor is very weak - will need a DAE for [facility] to review previous notes PMH, PSH, MEDICATIONS, ALLERGIES, FH, SH reviewed and updated as appropriate in Epic. O: VSS. No acute respiratory distress. No CVAT bilaterally. Pleasant. UA: clean. PVR: 0 mL by u/s. A: - Recurrent urinary tract infections (UTIs). - Cystitis. - Vaginal atrophy. - Pelvic floor dysfunction. - Pelvic floor weakness. - Interstitial cystitis (IC). - Rheumatoid arthritis. - Severe GERD. - Mixed connective tissue disease. P: - Reviewed etiology of UTIs, the importance of culture and sensitivity testing to guide targeted therapy and options for management moving forward. - Initiate Keflex 250 mg daily x 180 days to heal up the bladder wall, prevent infection and break the infection cycle. - Rx for self start Macrobid 100 mg po BID x 7 days prn. - Standing UA/UC order placed for patient convenience. - PFPT outside referral placed. - IC diet discussed, provided. - Consider RBUS. - Consider cystoscopy. - Personal lubricant handout provided; discussed the importance of choosing the right lube to avoidincreased UTI risk. - Rx for Estrace, recommend pea to dime sized amount to introitus and periurethral tissues nightly.Adequate trial 12 weeks. - DAE for [facility]. - F/U in 3 months or certainly sooner prn. Thanks, Shira Dietrich PA-C Department of Urologic Surgery TT: 65 minutes spent in chart review, patient counseling, documentation and coordination of care. S ROOM SUPERVISOR documented in this encounter Plan of Treatment Scheduled Orders Name Type Priority Associated Diagnoses Orde r Schedule POCT Automated Urinalysis Dipstick Point of Care Routine Chronic UTI Ordered: 05/21/2022 UA Micro If: Clean Catch Lab Routine Chronic UTI 20 Occurrences starting 05/21/2022 until 11/19/2023 Urine Culture Microbiology Routine Chronic UTI 20 Occurrences starting 05/21/2022 until 11/19/2023 Scheduled Referrals Name Type Priority Associated Diagnoses Orde r Schedule Physical Therapy Referral Routine Cystitis Recurrent UTI Pelvic floor dysfunction Ordered: 05/21/2022 documented as of this encounter Procedures Procedure Name Priority Date/Time Associated Diagnosis Comments AUTOMATED URINALYSIS DIPSTICK POCT Routine 05/21/2022 2:23 PM PRESS ROOM SUPERVISOR documented in this encounter Results * Automated Urinalysis Dipstick POCT (05/21/2022 2:23 PM PRESS ROOM SUPERVISOR) Glucose Urine Qual (mg/dL) Negative Negative 05/21/2022 2:25 PM [facility] Bilirubin Urine Negative Negative 05/21/2022 2:25 PM [facility] Ketones, Urine (mg/dL) Negative Negative 05/21/2022 2:25 PM [facility] Specific [place], Urine 1.025 1.005 - 1.030 05/21/2022 2:25 PM [facility] Blood, Urine Negative Neg/Trace 05/21/2022 2:25 PM [facility] PH Urine 5.0 5.0 - 8.0 05/21/2022 2:25 PM [facility] Protein, Urine Qual (mg/dL) Negative Neg/Trace 05/21/2022 2:25 PM [facility] Urobilinogen, Urine (EU/dL) 0.2 <2.0 05/21/2022 2:25 PM [facility] Nitrite Urine Negative Negative 05/21/2022 2:25 PM [facility] Leukocyte Est. Negative Negative 05/21/2022 2:25 PM [facility] Urine Color Yellow Straw-Yellow 05/21/2022 2:25 PM [facility] Urine Clarity Clear Clear 05/21/2022 2:25 PM [facility] Performing Location URO BU 05/21/2022 2:25 PM [facility] Urine 05/21/2022 2:23 PM PRESS ROOM SUPERVISOR 05/21/2022 2:25 PM PRESS ROOM SUPERVISOR Noelle Dietrich PA-C LAB_1 [facility] [address] [place] [address], [facility] [phone] documented in this encounter Visit Diagnoses Diagnosis Recurrent UTI- Primary Urinary tract infection, site not specified Chronic UTI Urinary tract infection, site not specified Cystitis Cystitis, unspecified Pelvic floor dysfunction Pelvic muscle wasting Vaginal atrophy Postmenopausal atrophic vaginitis History of rheumatoid arthritis Personal history of arthritis Mixed connective tissue disease (HRC) Other specified diffuse disease of connective tissue Chronic GERD IC (interstitial cystitis) Chronic interstitial cystitis documented in this encounter
[2023-05-11 13:44] VITALS: O2SAT 97
[2023-05-11] MEDS: LOPERAMIDE HCL 2 MG CAPSULE PO (13:48)
[2023-05-11] MEDS: 0.9 % SODIUM CHLORIDE 1000 ml 1,000 ML 6000 ML IV ×2 (13:49→15:05)
[2023-05-11 13:57] LABS: Lactate* 1.2 mmol/L (0.5-1.9)
[2023-05-11 13:59] LABS: Basophils Absolute Auto 0.01 K/uL (0.00-0.30); Basophils Percent Auto 0.1 % (0.0-3.0); Eosinophils Absolute Auto 0.02 K/uL (0.00-0.50); Eosinophils Percent Auto 0.2 % (0.0-7.0); Hemoglobin* 15.2 gm/dL (12.0-16.0); Immature Granulocytes Abs Auto 0.05 K/uL (0.00-0.30); Immature Granulocytes Pct Auto 0.6 %; Lymphocytes Percent Auto 9.3 % (20-44); Mean Corpuscular HGB Conc 33 gm/dL (32-36); Mean Corpuscular Hemoglobin 29 pg (26-34); Mean Corpuscular Volume 86 fL (80-100); Monocytes Percent Auto 4.5 % (0.0-11.0); Neutrophils Percent Auto 85.3 % (42.0-72.0); Platelet Count* 225 K/uL (140-440); RDW Coefficient of Variation % 13.7 % (11.5-15.5); Red Blood Count 5.34 m/uL (4.00-5.20); White Blood Count* 8.71 K/uL (4.50-11.00)
[2023-05-11 14:04] LABS: Slide Review Reflex No
[2023-05-11 14:13] LABS: Albumin* 4.7 g/dL (3.3-5.0)
[2023-05-11 14:14] LABS: Chloride* 105 mmol/L (96-114); Potassium* 3.1 mmol/L (3.6-5.1); Sodium* 138 mmol/L (135-149)
[2023-05-11 14:16] LABS: Alkaline Phosphatase* 238 U/L (40-150); Aspartate Amino Transferase* 85 U/L (12-35); Bilirubin Direct* 0.5 mg/dL (0.0-0.5); Bilirubin Total* 1.1 mg/dL (0.1-1.5); Total Protein* 7.7 g/dL (6.0-8.3)
[2023-05-11 14:17] LABS: Alanine Aminotransferase* 93 U/L (4-35); Creatinine* 0.6 mg/dL (0.5-1.5); Est. Creatinine Clearance* 91.76; Estimated Glomerular Filt Rate 109 ml/min
[2023-05-11 14:18] LABS: Anion Gap 12 mEq/L (7-15); Blood Urea Nitrogen* 13 mg/dL (7-30); Carbon Dioxide* 21 mmol/L (20-32); Glucose* 76 mg/dL (60-115)
[2023-05-11 14:20] LABS: C Reactive Protein* 1.2 mg/dL (0.5-1.0)
[2023-05-11 14:36] LABS: PCR FLU A Negative PCR FLU A (Negative); PCR FLU B Negative PCR FLU B (Negative); PCR RSV Negative PCR RSV (Negative); SARS PCR* Negative SARS-CoV-2 (Negative)
[2023-05-11] MEDS: POTASSIUM BICARB 25 MEQ EFFERVESCENT TAB PO (14:45)
[2023-05-11 16:04] LABS: C.Difficile Negative (Negative); CDIFFEPI 027 PRESUMPTIVE NEGATIVE (Negative)
--- NOTE | 2023-05-12 14:46 | ED.NURSE ---
Addendum entered by Rene Peraza 05/12/23 16:06: narrative writer entered room after MD entered discharge orders for pt. I informed the pt that the MD has entered discharge orders and that they MD says that their labs look normal and that they are good to go home. The pt then stated I don' t feel like I can go home. narrative writer then asked the pt to clarify by stating: you don't think you can go home? do you feel like you need admission to the hospital? the pt responded I don't want to be admitted to the hospital, but I also don't feel like I could go home. The narrative writer then asked the pt what else we can do for the pt? the pt responded I don't know but I don't think I can go home like this. narrative writer then mentioned the first bag of fluids seemed to help, do you think you would like a second bag of fluids? the pt responded yes or something narrative writer informed pt that they would check with the provider. MD ordered another bag of fluids, narrative writer upon receiving the order administered an other liter of IV fluids. No new orders to follow. Original Note: realized with busy ED I did not write a note yesterday: when narrative writer entered the room pt was in bed, laying on their side in the position under multiple blankets, narrative writer introduced them selves and informed the pt that they where here to start an IV and collect some blood for labs per the MD orders. pt did not acknowledge narrative writer. narrative writer then approached the pt and touched their shoulder and repeated that I was there to start an IV and collect some blood for labs, to which the pt responded is Micha Murry here? the narrative writer responded that Micha payne be in the hospital today but they are not working in the ER today. narrative writer then asked the pt if they had a preference for Iv start in the right or left side and if they wanted to roll up the sleeve of there shirt or should I get them a gown to change into? pt rolled up sleeve. narrative writer attempted to start an IV, with initial needle insertion pt pulled arm away, narrative writer unable to get patent IV or blood. narrative writer informed pt that the IV start was unsuccessful. narrative writer then stated there is another good vein right next to it, can I try again to start the IV? pt stated yes narrative writer successfully placed an IV in the LAC and got blood for lab work. narrative writer informed the pt that they were going to step out of the room and get the blood work to lab and grab some fluids and medication and be back in. narrative writer before leave the room ask pt if there is anything else they need? pt did not respond, narrative writer then asked family member in the room if they needed anything to which they stated no
[2023-05-18 21:20] LABS: Ova and Parasite, Fecal Negative (Negative)
== END 2023-05-11 16:54 | disposition home or self-care (01) ==
PROVIDERS: Emergency Provider Family Medicine; PCP Internal Medicine
DX: E86.0 Dehydration (principal); R19.7 Diarrhea, unspecified; F43.9 Reaction to severe stress, unspecified
CPT/HCPCS: 36415; 80048; 80076; 83605; 85025; 86140; 87045; 87046; 87077; 87177; 87209; 87427; 87493; 87631; 96360; 96361; 99284; A9270; J7030

== ENCOUNTER 2023-05-12 14:25 | Emergency (ER) | payer BC, SELFPAY ==
[2023-05-12 14:31] VITALS: BP 131/89; PULSE 92; RESP 18; TEMP 36.9; O2SAT 99
--- NOTE | 2023-05-12 15:18 | CRLHL7_ITS ---
For Patients: As a result of the Century Cures Act, medical imaging exams and procedure reports are released immediately into your electronic medical record. You may view this report before your referring provider. If you have questions, please contact your health care provider. INDICATION: Left lower quadrant and right lower quadrant pain, diarrhea. TECHNIQUE: CT abdomen and pelvis acquired with 70 cc Isovue 370 IV contrast. Permanently recorded images are archived. COMPARISON: CT abdomen and pelvis 08/13/2021 FINDINGS: Lower chest: Unremarkable. Liver: Unremarkable. Normal in size and attenuation. No suspicious masses. Gallbladder and bile ducts: Status post cholecystectomy. No abnormal biliary ductal dilatation. Pancreas: Unremarkable. No mass or inflammation. Spleen: Unchanged small hypodensity within the splenic parenchyma, likely a cyst. Adrenal glands: Unremarkable. No nodules. Kidneys, Ureters, and Bladder: Unremarkable. No suspicious masses, stones, or hydronephrosis. Unremarkable ureters and bladder. GI tract: Mild diffuse mural thickening of the colon from the cecum to the rectum. No diverticulosis or significant pericolonic inflammation. The cecum is in the left lower quadrant. The appendix is not clearly visualized; however, there are no inflammatory changes in the right lower quadrant. Vasculature: Abdominal aorta is normal in caliber. Mesenteric arteries are patent. Lymph nodes: No lymphadenopathy. Peritoneum/Abdominal Wall: Unremarkable. No free air or significant free fluid. Pelvis: IUD in the uterus. Bones: Unremarkable for age. IMPRESSION: 1. Mild diffuse mural thickening of the colon from the cecum to the rectum, compatible with mild pancolitis. 2. Cecum in the left lower quadrant, which is nonspecific but can be seen with mobile cecum syndrome. Please note that all CT scans at this facility use dose modulation, iterative reconstruction, and/or weight-based dosing when appropriate to reduce radiation dose to as low as reasonably achievable. Dictated by Richardson Rubio MD @ 05/12/2023 6:22:04 PM (Electronically Signed)
[2023-05-12] MEDS: 0.9 % SODIUM CHLORIDE 1000 ml 1,000 ML IV (15:40)
[2023-05-12 15:51] LABS: Lactate* 0.7 mmol/L (0.5-1.9)
[2023-05-12] MEDS: HYDROCORTISONE SOD SUCCINATE 50 MG/ML inj 200 MG IVP (15:54)
[2023-05-12] MEDS: diphenhydrAMINE 50 MG/ML inj IVP (15:54)
[2023-05-12 16:10] LABS: Basophils Absolute Auto 0.01 K/uL (0.00-0.30); Basophils Percent Auto 0.2 % (0.0-3.0); Eosinophils Absolute Auto 0.06 K/uL (0.00-0.50); Hematocrit 41.7 % (33.0-51.0); Hemoglobin* 13.8 gm/dL (12.0-16.0); Immature Granulocytes Abs Auto 0.04 K/uL (0.00-0.30); Immature Granulocytes Pct Auto 0.7 %; Lymphocytes Absolute Auto 1.63 K/uL (0.90-2.90); Lymphocytes Percent Auto 27.1 % (20-44); Mean Corpuscular HGB Conc 33 gm/dL (32-36); Mean Corpuscular Hemoglobin 28 pg (26-34); Mean Corpuscular Volume 86 fL (80-100); Neutrophils Absolute Auto 3.85 K/uL (1.7-7.0); Platelet Count* 245 K/uL (140-440); RDW Coefficient of Variation % 13.5 % (11.5-15.5); Red Blood Count 4.86 m/uL (4.00-5.20); White Blood Count* 6.01 K/uL (4.50-11.00)
[2023-05-12 16:11] LABS: Albumin* 3.8 g/dL (3.3-5.0); Slide Review Reflex No
[2023-05-12 16:12] LABS: Chloride* 109 mmol/L (96-114); Potassium* 3.1 mmol/L (3.6-5.1); Sodium* 138 mmol/L (135-149)
[2023-05-12 16:14] LABS: Bilirubin Total* 0.6 mg/dL (0.1-1.5); Creatinine* 0.6 mg/dL (0.5-1.5); Estimated Glomerular Filt Rate 109 ml/min
[2023-05-12 16:15] LABS: Alanine Aminotransferase* 55 U/L (4-35); Alkaline Phosphatase* 177 U/L (40-150); Anion Gap 7 mEq/L (7-15); Aspartate Amino Transferase* 41 U/L (12-35); Blood Urea Nitrogen* 9 mg/dL (7-30); Calcium* 8.4 mg/dL (8.4-10.6); Carbon Dioxide* 22 mmol/L (20-32); Glucose* 91 mg/dL (60-115); Total Protein* 6.6 g/dL (6.0-8.3)
[2023-05-12 16:16] LABS: Magnesium* 2.3 mg/dL (1.5-2.6)
--- OUTSIDE RECORDS SUMMARY | 2023-05-12 16:17 | XMS_ITS | Clinical Summary ---
Author Name Unknown Organization [facility] Address [address] [place] [address] Care Team Providers Care Weapons Designer Name Role Phone Elsewhere, Pcp Primary Care Provider Unavailabl e Source Comments Patient records contain information from all sites at [facility]. For routine questions regarding patient records, call [phone] during business hours, M-F 8:00 AM - 5:00 PM Central Time. Record requests for emergency care only can be directed to [phone] at any time.[facility] Allergies Active Allergy Reactions Criticality Noted Date [...] 02/28/2023 Clinical Communication Division of Gastroenterology in [place], [place] [address] [place] [address] Julián Edouard M.D. 02/13/2023 E-Visit Division of Rheumatology in [place], [place] [address] [place] [address] Velma Munson, LONG, C.N.P. RA/Autoimmune from Last [...] any clubs o r organizations such as caodaism groups, unions, fraternal [...] Answer Date Recorded PHQ-2 Score 3 10/04/2018 [facility]at ional [facility] - Occupational [...] or slept in a fci (including now)? No 11/16/2021 Nutrition Answer Date [...] (Latest Contact Info) Description 07/07/2023 12:00 PM BEHAVIORAL HEALTH PROFESSIONAL Clinical Communication Virtual Review in [place], [place] [address] [place] [address] 07/11/2023 9:00 AM CDT Appointment Department of Laboratory Medicine and Pathology, [facility], in [place], [place] [address] [place] [address] Velma Munson APRN, C.N.P. [address] [place] [phone] 07/11/2023 11:15 AM CDT Office Visit Division of Rheumatology in [place], [place] [address] [place] [phone] Velma Munson APRN, C.N.P. [address] [place] [phone] Health Maintenance Due Date Last Done Comments [...] this topic Medical Devices Implanted Type Area Manager Of Planning Device Identifier Shelf Expiration Date Model / Serial / Lot Intrauterine Device Intrauterine Device Uterus Description:IUD Mirena Conversions - Default Historical Implant Device Implanted:05/04 (Quantity not on file) Misc Other Abdomen Description:Body Location - Abdominal. Device Status Text - MiscOther. lapband. Additional Health Concerns Infection Onset Date Last Indicated Protective Environment 09/28/2022 3 Care Teams Weapons Designer Relationship Specialty Start Date End Date Elsewhere, Pcp PCP - General Internal Medicine 10/22/19
--- OUTSIDE RECORDS SUMMARY | 2023-05-12 16:18 | XMS_ITS | Referral Summary ---
Author Name Unknown Organization [facility] Address [address] [place] [address] Care Team Providers Care Instrument Installer Name Role Phone Elsewhere, Pcp Primary Care Provider Unavailabl e Source Comments Patient records contain information from all sites at [facility]. For routine questions regarding patient records, call [phone] during business hours, M-F 8:00 AM - 5:00 PM Central Time. Record requests for emergency care only can be directed to [phone] at any time.[facility] Encounters Date Type Department Care Team Description 02/28/2023 Clinical Communication Division of Gastroenterology in [place], [place] [address] [place] [phone] Julián Edouard M.D. 02/13/2023 E-Visit Division of Rheumatology in [place], [place] [address] [place] [phone] Velma Munson, SPECIAL TRACKWORK BLACKSMITH, C.N.P. RA/Autoimmune from Last 3 Months Allergies [...] Never 11/16/2021 How often do you attend [facility] or quaker services? More than 4 times per year 11/16/2021 Do you belong to any clubs o r organizations such as religion groups, unions, fraternal [...] Answer Date Recorded PHQ-2 Score 3 10/04/2018 [facility] [place] of Occupat ional Health - Occupational Stress [...] or slept in a halfway (including now)? No 11/16/2021 Nutrition Answer Date [...] (Latest Contact Info) Description 07/07/2023 12:00 PM LACQUER SPRAYER Clinical Communication Virtual Review in [place], [place] 200 [place] [address] 07/11/2023 9:00 AM CDT Appointment Department of Laboratory Medicine and Pathology, [facility], in [address] [phone] Velma Munson APRN, C.N.P. [address] [place] [phone] 07/11/2023 11:15 AM CDT Office Visit Division of Rheumatology in [address] [phone] Velma Munson APRN, C.N.P. [address] [place] [phone] Medical Devices Implanted Type Area Manager Contact Device Identifier Shelf Expiration Date Model / Serial / Lot Intrauterine Device Intrauterine Device Uterus Description:IUD Mirena Conversions - Default Historical Implant Device Implanted:05/04 (Quantity not on file) Misc Other Abdomen Description:Body Location - Abdominal. Device Status Text - MiscOther. lapband. Additional Health Concerns Infection Onset Date Last Indicated Protective Environment 09/28/2022 Care Teams Instrument Installer Relationship Specialty Start Date End Date Elsewhere, Pcp PCP - General Internal Medicine 10/22/19
--- OUTSIDE RECORDS SUMMARY | 2023-05-12 16:18 | XMS_ITS | Encounter Summary ---
Author Name Unknown Organization [facility] Address [address] [place] [address] Care Team Providers Care Canine Deputy Name Role Phone Elsewhere, Pcp Primary Care Provider Unavailabl e Reason for Visit * Reason Onset Date Comments Pre-visit Intake 09/28/2022 Encounter Details Date Type Department Care Team (Latest Contact Info) Description 09/28/2022 12:30 PM CDT Clinical Communication Virtual Review in [place], [place] 200 [place] [address] Pre-visit Intake Social History Tobacco [...] often do you attend chur ch or buddhism services? More than 4 times per year 11/16/2021 Do you belong to any clubs o r organizations such as confucianist groups, unions, fraternal [...] Answer Date Recorded PHQ-2 Score 3 10/04/2018 [facility] of Occupat ional Health - Occupational Stress [...] (Latest Contact Info) Description 07/07/2023 12:00 PM SCREEN AND CYCLONE REPAIRER Clinical Communication Virtual Review in [address] [phone] 07/11/2023 9:00 AM CDT Appointment Department of Laboratory Medicine and Pathology, [place], in [place], [place] [address] [place] [address] Velma Munson APRN, C.N.P. [address] [place] [phone] 07/11/2023 11:15 AM CDT Office Visit Division of Rheumatology in [place], [place] [address] [place] [address] Velma Munson APRN, C.N.P. [address] [place] [phone] documented as of this encounter Visit Diagnoses Not on filedocumented in this encounter Additional Health Concerns Infection Onset Date Last Indicated Resolved Time Protective Environment 09/28/2022 09/28/2022 Assessment Noted Time PHQ-9 Depression Total Score: 15 018 1:00 PM SCREEN AND CYCLONE REPAIRER documented as of this encounter Care Teams Canine Deputy Relationship Specialty Start Date End Date Elsewhere, Pcp PCP - General Internal Medicine 10/22/19 documented as of this encounter
--- OUTSIDE RECORDS SUMMARY | 2023-05-12 16:18 | XMS_ITS | Encounter Summary ---
Author Name Unknown Organization [facility] Address [address] [place] [address] Care Team Providers Care Health Clinician Name Role Phone Elsewhere, Pcp Primary Care Provider Unavailabl e Encounter Details Date Type Department Care Team (Late st Contact Info) Description 07/15/2022 Clinical Communication Division of Thoracic Surgery in [place], [place] [address] [place] [address] Gerardo Raphael M.D. [address] [place] [phone] Social History Tobacco Use Types Packs/Day Years [...] often do you attend chur ch or voodoo services? More than 4 times per year 11/16/2021 Do you belong to any clubs o r organizations such as zoroastrian groups, unions, fraternal [...] Answer Date Recorded PHQ-2 Score 3 10/04/2018 [facility] of Occupat ional Health - [...] (Latest Contact Info) Description 07/07/2023 12:00 PM SPECIAL ASSETS OFFICER Clinical Communication Virtual Review in [address] [address] 07/11/2023 9:00 AM CDT Appointment Department of Laboratory Medicine and Pathology, [facility], in [address] [phone] Velma Munson APRN, C.N.P. [address] [place] [phone] 07/11/2023 11:15 AM CDT Office Visit Division of Rheumatology in [address] [phone] Velma Munson APRN, C.N.P. [address] [place] [phone] documented as of this encounter Visit Diagnoses Not on filedocumented in this encounter Additional Health Concerns Assessment Noted Time PHQ-9 Depression Total Score: 15 04/21/ 018 1:00 PM SPECIAL ASSETS OFFICER documented as of this encounter Care Teams Health Clinician Relationship Specialty Start Date End Date Elsewhere, Pcp PCP - General Internal Medicine 10/22/19 documented as of this encounter
--- OUTSIDE RECORDS SUMMARY | 2023-05-12 16:18 | XMS_ITS | Encounter Summary ---
Author Name Unknown Organization [facility] Address [address] [place] [address] Care Team Providers Care Estate Agent Name Role Phone Elsewhere, Pcp Primary Care Provider Unavailabl e Encounter Details Date Type Department Care Team (Latest Contact Info) Description 09/30/2022 8:20 AM CDT - 09/30/2022 11:59 PM CDT Hospital Encounter Department of Laboratory Medicine and Pathology, [facility] in [place], [place] [address] [place] [phone] Velma Munson, LONG, C.N.P. [address] [place] [address] Arthritis Inflammatory (HCC) Discharge Disposition: Home or [...] How often do you attend chur or yarsanism services? More than 4 times per year 11/16/2021 Do you belong to any clubs o r organizations such as temple groups, unions, fraternal [...] Date Recorded PHQ-2 Score 3 10/04/2018 [facility] of Occupat ionms Health - Occupational Stress [...] (Latest Contact Info) Description 07/07/2023 12:00 PM SOFTWARE DEVELOPMENT COORDINATOR Clinical Communication Virtual Review in [place], [place] 200 [place] [address] 07/11/2023 9:00 AM CDT Appointment Department of Laboratory Medicine and Pathology, [facility], in [place], [place] [address] [place] [phone] Velma Munson APRN, C.N.P. [address] [place] [phone] 07/11/2023 11:15 AM CDT Office Visit Division of Rheumatology in [place], [place] [address] [place] [phone] Velma Munson APRN, C.N.P. [address] [place] [phone] documented as of this encounter Procedures Procedure [...] Velma Munson APRN, C.N.P. LAB BLOOD ADD-ON [facility] [address] [place] [address], [facility] [address] [place] [address] * Creatinine with Estimated GFR (09/30/2022 8:57 AM CDT) Creatinine 0.90 0.59 - 1.04 mg/dL 09/30/2022 10:06 AM CDT DT Estimated GFR (eGFR) 78 >=60 mL/min/BSA 09/30/2022 10:06 AM CDT DT Comment: Estimated GFR calculated using the 2020 CKD_EPI creatinine equation. Blood (Blood, Venous) 09/30/2022 8:57 AM CDT 09/30/2022 9:33 AM CDT Velma Munson APRN, C.N.P. LAB BLOOD ADD-ON Performing Organization Address City/[facility]/ZIP Co de Phone Number [facility] [address] [place] [address], [facility] [address] [place] [address] * (ABNORMAL) CRP (C-Reactive Protein) (09/30/2022 8:57 AM CDT) C-Reactive Protein (CRP), S 5.1(H) <5.0 mg/L 09/30/2022 10:06 AM CDT DT Blood (Blood, Venous) 09/30/2022 8:57 AM CDT 09/30/2022 9:33 AM CDT Velma Munson APRN, C.N.P. LAB BLOOD ADD-ON [facility] [address] [place] [address], [facility] 200 [place] [address] * Sedimentation Rate (09/30/2022 8:57 AM CDT) Sedimentation Rate, B 5 2 - 20 mm/h 09/30/2022 10:37 AM CDT DTL Blood (Blood, Venous) 09/30/2022 8:57 AM CDT 09/30/2022 9:18 AM CDT Jorge Polo APRNNLennoxPLennox LAB BLOOD ADD-ON [facility] [address] [place] [address], [facility] DTL [facility] [address] [place] [address] * (ABNORMAL) CBC with Differential, Blood (09/30/2022 8:57 AM CDT) Pathologist [facility] Hemoglobin 15.2(H) 11.6 - 15.0 g/dL 09/30/2022 [...] Velma Munson APRN C.N.P. LAB BLOOD ADD-ON [facility] [address] [place] [address], [facility] DTL [facility] 200 [place] [address] documented in this encounter Visit Diagnoses Diagnosis Arthritis Inflammatory (HCC) documented in this encounter Additional Health Concerns Infection Onset Date Last Indicated Resolved Time Protective Environment 09/28/2022 09/28/2022 Assessment Noted Time PHQ-9 Depression Total Score: 15 018 1:00 PM SOFTWARE DEVELOPMENT COORDINATOR documented as of this encounter Care Teams Estate Agent Relationship Specialty Start Date End Date Elsewhere, Pcp PCP - General Internal Medicine 10/22/19 documented as of this encounter
--- OUTSIDE RECORDS SUMMARY | 2023-05-12 16:18 | XMS_ITS | Encounter Summary ---
Author Name Unknown Organization [facility] Address [address] [place] [address] Care Team Providers Care Recycling Technician Name Role Phone Elsewhere, Pcp Primary Care Provider Unavailabl e Encounter Details Date Type Department Care Team (Latest Contact Info) Description 02/28/2023 Clinical Communication Division of Gastroenterology in [place], [place] [address] [place] [address] Julián Edouard M.D. [address] [place] [address] Social History Tobacco Use Types Packs/Day Years [...] often do you attend chur ch or uatsdin services? More than 4 times per year [...] Answer Date Recorded PHQ-2 Score 3 10/04/2018 [facility] of Occupat ional Health - Occupational [...] or slept in a mcfp (including now)? No 11/16/2021 Nutrition Answer Date [...] (Latest Contact Info) Description 07/07/2023 12:00 PM LICENSED PRACTICAL VOCATIONAL NURSE Clinical Communication Virtual Review in [place], [place] [address] [place] [address] 07/11/2023 9:00 AM CDT Appointment Department of Laboratory Medicine and Pathology, [facility], in [place], [place] [address] [place] [phone] Velma Munson, FIELD SERVICE SUPERVISOR, C.N.P. [address] [place] [phone] 07/11/2023 11:15 AM CDT Office Visit Division of Rheumatology in [place], [place] [address] [place] [phone] Velma Munson, LONG, C.N.P. [address] [place] [phone] documented as of this encounter Visit Diagnoses Not on filedocumented in this encounter Additional Health Concerns Infection Onset Date Last Indicated Resolved Time Protective Environment 09/28/2022 09/28/2022 Assessment Noted Time PHQ-9 Depression Total Score: 15 018 1:00 PM LICENSED PRACTICAL VOCATIONAL NURSE documented as of this encounter Care Teams Recycling Technician Relationship Specialty Start Date End Date Elsewhere, Pcp PCP - General Internal Medicine 10/22/19 documented as of this encounter
--- OUTSIDE RECORDS SUMMARY | 2023-05-12 16:18 | XMS_ITS | Encounter Summary ---
Author Name Unknown Organization [facility] Address [address] [place] [address] Care Team Providers Care Invasive Cardiologist Name Role Phone Elsewhere, Pcp Primary Care Provider Unavailabl e Reason for Referral * Outpatient (Routine) - Authorized Specialty Diagnoses / Procedures Referred By Contact Referred To Contact Gastroenterology and Hepatology Diagnoses na Gerardo Raphael M.D. [address] [place] [phone] Julián Edouard M.D. [address] [place] [phone] Referral ID Status Reason Start Date Expiration Date V isits Requested Visits Authorized [id number] Authorized 07/16/2022 07/15/2025 1 1 Encounter Details Date Type Department Care Team (Late st Contact Info) Description 07/16/2022 Orders Only Division of Thoracic Surgery in [place], [place] [address] [place] [phone] Haritha Naik R.N., C.M.S.R.N. [address] [place] [phone] Social History Tobacco Use Types Packs/Day Years [...] Never 11/16/2021 How often do you attend [facility] or amish services? More than 4 times per year [...] Answer Date Recorded PHQ-2 Score 3 10/04/2018 [facility] of Occupat ional Health - Occupational [...] or slept in a prison (including now)? No 11/16/2021 Nutrition Answer Date [...] (Latest Contact Info) Description 07/07/2023 12:00 PM STEAM PAN SPONGER Clinical Communication Virtual Review in [place], [place] [address] [place] [address] 07/11/2023 9:00 AM CDT Appointment Department of Laboratory Medicine and Pathology, [facility] in [place], [place] [address] [place] [phone] Velma Munson APRN, C.N.P. [address] [place] [phone] 07/11/2023 11:15 AM CDT Office Visit Division of Rheumatology in [place], [place] [address] [place] [phone] Velma Munson APRN, C.N.P. [address] [place] [phone] Scheduled Referrals Name Type Priority Associated Diagnoses Orde r Schedule Return to provider in another specialty Outpatient Referral Routine Expected: 07/16/2022 (Approximate), Expires: 10/17/2023 documented as of this encounter Visit Diagnoses Not on filedocumented in this encounter Additional Health Concerns Assessment Noted Time PHQ-9 Depression Total Score: 15 018 1:00 PM STEAM PAN SPONGER documented as of this encounter Care Teams Invasive Cardiologist Relationship Specialty Start Date End Date Elsewhere, Pcp PCP - General Internal Medicine 10/22/19 documented as of this encounter
--- OUTSIDE RECORDS SUMMARY | 2023-05-12 16:18 | XMS_ITS | Encounter Summary ---
Author Name Unknown Organization [facility] Address [address] [place] [address] Care Team Providers Care Tailman Name Role Phone Elsewhere, Pcp Primary Care Provider Unavailabl e Reason for Visit * Reason Comments Med Refill Encounter Details Date Type Department Care Team (Late st Contact Info) Description 12/27/2022 Refill Division of Gastroenterology in [place], [place] [address] [place] [phone] Julián Edouard M.D. [address] [place] [phone] Med Refill Social History Tobacco Use Types [...] any clubs o r organizations such as buddhist groups, unions, fraternal [...] Answer Date Recorded PHQ-2 Score 3 10/04/2018 [facility] - Occupational Stress Questionnaire Answer Date Recorded [...] slept in a long term (including now)? No 11/16/2021 Nutrition Answer Date [...] (Latest Contact Info) Description 07/07/2023 12:00 PM WING COMMANDER Clinical Communication Virtual Review in [place], [place] 200 [place] [address] 07/11/2023 9:00 AM CDT Appointment Department of Laboratory Medicine and Pathology, [facility], in [place], [place] [address] [place] [phone] Velma Munson, LONG, C.N.P. [address] [place] [phone] 07/11/2023 11:15 AM CDT Office Visit Division of Rheumatology in [place], [place] [address] [place] [phone] Velma Munson, LONG, C.N.P. [address] [place] [phone] documented as of this encounter Visit Diagnoses Not on filedocumented in this encounter Additional Health Concerns Infection Onset Date Last Indicated Resolved Time Protective Environment 09/28/2022 09/28/2022 Assessment Noted Time PHQ-9 Depression Total Score: 15 018 1:00 PM WING COMMANDER documented as of this encounter Care Teams Tailman Relationship Specialty Start Date End Date Elsewhere, Pcp PCP - General Internal Medicine 10/22/19 documented as of this encounter
--- OUTSIDE RECORDS SUMMARY | 2023-05-12 16:18 | XMS_ITS ---
Author Name Unknown Organization [facility] Address [address] [place] [address] Care Team Providers Care Supervisor Assembly Name Role Phone Unavailable Unavailable Unavailable Surgery Details Not on file Complications Check Surgery Details section. Procedure Estimated Blood Loss Check Surgery Details section. Procedure Findings Check Surgery Details section. Procedure Specimens Taken Check Surgery Details section.
--- OUTSIDE RECORDS SUMMARY | 2023-05-12 16:18 | XMS_ITS | Encounter Summary ---
Author Name Unknown Organization [facility] Address [address] [place] [address] Care Team Providers Care In Room Dining Server Name Role Phone Elsewhere, Pcp Primary Care Provider Unavailabl e Reason for Referral * Outpatient (Routine) - Authorized Specialty Diagnoses / Procedures Referred By Contac t Referred To Contact Rheumatology Diagnoses . Velma Munson APRN, C.N.P. [address] [place] [phone] [facility] Referral ID Status Reason Start Date Expiration Date V isits Requested Visits Authorized [id number] Authorized 09/30/2022 09/29/2025 1 1 Reason for Visit * Outpatient (Routine) - Closed Specialty Diagnoses / Procedures Referred By Contac t Referred To Contact Rheumatology Diagnoses na Velma Munson APRN, C.N.P. [address] [place] [phone] [facility] Referral ID Status Reason Start Date Expiration Date Visits Re quested Visits Authorized [id number] Closed 11/17/2021 11/17/2022 1 1 Encounter Details Date Type Department Care Team (Latest Contact Info) Description 09/30/2022 10:30 AM CDT Office Visit Division of Rheumatology in [place], [place] [address] [place] [phone] Velma Munson APRN, C.N.P. [address] [place] [phone] Arthritis Inflammatory (HCC) (Primary Dx); Xerostomia Social [...] How often do you attend chur or yazidism services? More than 4 times per year 11/16/2021 Do you belong to any clubs o r organizations such as jewish groups, unions, fraternal [...] Answer Date Recorded PHQ-2 Score 3 10/04/2018 [facility] of Occupat ional [facility] - Occupational Stress Questionnaire Answer Date [...] or slept in a half-way (including now)? No 11/16/2021 Nutrition Answer Date [...] global assessment (0-100) 60 4 50 77 Branding Machine Operator global assessment (0-100) 30 20 30 50 ESR (mm/h) 17 -- -- 5 CRP (mg/L) 4.8 -- -- 5.1 Disease Activity Score 28 using ESR ([id number]) 3.62 -- -- 3.28 Disease Activity Score 28 using CRP ([id number]) 3.22 -- -- 3.76 Clinical Disease Activity [...] laboratory slip to do labs locally in [place]. I will follow up with her in 6 months. I answered the patients questions to the best of my ability. The patient seemed pleased with our interaction. If she should have any additional questions or concerns. I [facility] ' documented in this encounter Plan of Treatment Upcoming Encounters Date Type Department Care Team (Latest Contact Info) Description 07/07/2023 12:00 PM SENIOR SQL SERVER DEVELOPER Clinical Communication Virtual Review in [place], [place] 200 [place] [address] 07/11/2023 9:00 AM CDT Appointment Department of Laboratory Medicine and Pathology, [facility], in [address] [phone] Velma Munson APRN, C.N.P. [address] [place] [phone] 07/11/2023 11:15 AM CDT Office Visit Division of Rheumatology in [place], [place] [address] [place] [phone] Velma Munson, LONG, C.N.P. [address] [place] [phone] Scheduled Orders Name Type Priority Associated Diagnoses [...] Depression Total Score: 15 018 1:00 PM SENIOR SQL SERVER DEVELOPER documented as of this encounter Care Teams In Room Dining Server Relationship Specialty Start Date End Date Elsewhere, Pcp PCP - General Internal Medicine 10/22/19 documented as of this encounter
--- OUTSIDE RECORDS SUMMARY | 2023-05-12 16:18 | XMS_ITS | Encounter Summary ---
Author Name Unknown Organization [facility] Address [address] [place] [address] Care Team Providers Care Ui Software Engineer Name Role Phone Elsewhere, Pcp Primary Care Provider Unavailabl e Reason for Visit * Reason Comments Med Refill Encounter Details Date Type Department Care Team (Late st Contact Info) Description 01/27/2023 Refill Division of Gastroenterology in [place], [place] [address] [place] [phone] Julián Edouard M.D. [address] [place] [phone] Med Refill Social History Tobacco Use Types [...] any clubs o r organizations such as pentecostal groups, unions, fraternal [...] Answer Date Recorded PHQ-2 Score 3 10/04/2018 [facility] - Occupational Stress Questionnaire Answer Date [...] (Latest Contact Info) Description 07/07/2023 12:00 PM BOAT OUTBOARD ENGINE MECHANIC Clinical Communication Virtual Review in [place], [place] [address] [place] [address] 07/11/2023 9:00 AM CDT Appointment Department of Laboratory Medicine and Pathology, [facility], in [place], [place] [address] [place] [phone] Velma Munson, LONG, C.N.P. [address] [place] [phone] 07/11/2023 11:15 AM CDT Office Visit Division of Rheumatology in [place], [place] [address] [place] [phone] Velma Munson, LONG, C.N.P. [address] [place] [phone] documented as of this encounter Visit Diagnoses Not on filedocumented in this encounter Additional Health Concerns Infection Onset Date Last Indicated Resolved Time Protective Environment 09/28/2022 09/28/2022 Assessment Noted Time PHQ-9 Depression Total Score: 15 018 1:00 PM BOAT OUTBOARD ENGINE MECHANIC documented as of this encounter Care Teams Ui Software Engineer Relationship Specialty Start Date End Date Elsewhere, Pcp PCP - General Internal Medicine 10/22/19 documented as of this encounter
--- OUTSIDE RECORDS SUMMARY | 2023-05-12 16:18 | XMS_ITS | Encounter Summary ---
Author Name Unknown Organization [facility] Address [address] [place] [address] Care Team Providers Care Patcher Helper Name Role Phone Elsewhere, Pcp Primary Care Provider Unavailabl e Encounter Details Date Type Department Care Team (Late st Contact Info) Description 07/27/2022 Clinical Communication Division of Thoracic Surgery in [place], [place] [address] [place] [address] Gerardo Raphael M.D. [address] [place] [phone] Social History Tobacco Use Types Packs/Day Years [...] often do you attend chur ch or gnosticism services? More than 4 times per year [...] Answer Date Recorded PHQ-2 Score 3 10/04/2018 [facility] - Occupational [...] or slept in a residential (including now)? No 11/16/2021 Nutrition Answer Date [...] (Latest Contact Info) Description 07/07/2023 12:00 PM MODEL MAKER FIREARMS Clinical Communication Virtual Review in [place], [place] [address] [place] [address] 07/11/2023 9:00 AM CDT Appointment Department of Laboratory Medicine and Pathology, [facility], in [place], [place] [address] [place] [phone] Velma Munson, MARINE MECHANIC, C.N.P. [address] [place] [phone] 07/11/2023 11:15 AM CDT Office Visit Division of Rheumatology in [place], [place] [address] [place] [phone] Velma Munson, LONG, C.N.P. [address] [place] [phone] documented as of this encounter Visit Diagnoses Not on filedocumented in this encounter Additional Health Concerns Assessment Noted Time PHQ-9 Depression Total Score: 15 018 1:00 PM MODEL MAKER FIREARMS documented as of this encounter Care Teams Patcher Helper Relationship Specialty Start Date End Date Elsewhere, Pcp PCP - General Internal Medicine 10/22/19 documented as of this encounter
--- OUTSIDE RECORDS SUMMARY | 2023-05-12 16:18 | XMS_ITS | Encounter Summary ---
Author Name Unknown Organization [facility] Address [address] [place] [address] Care Team Providers Care Park Manager Name Role Phone Elsewhere, Pcp Primary Care Provider Unavailabl e Encounter Details Date Type Department Care Team (Late st Contact Info) Description 02/13/2023 E-Visit Division of Rheumatology in [place], [place] [address] [place] [phone] Velma Munson, DIRECTOR OF DONOR RELATIONS, C.N.P. [address] [place] [phone] RA/Autoimmune Social History Tobacco Use Types Packs/Day [...] How often do you attend chur or voodoo services? More than 4 times per year 11/16/2021 Do you belong to any clubs o r organizations such as sikhism groups, unions, fraternal [...] 3 10/04/2018 [facility] - Occupational Stress Questionnaire [...] or slept in a intermediate (including now)? No 11/16/2021 Nutrition Answer Date [...] (Latest Contact Info) Description 07/07/2023 12:00 PM WINTER INTERN Clinical Communication Virtual Review in [place], [place] 200 [place] [address] 07/11/2023 9:00 AM CDT Appointment Department of Laboratory Medicine and Pathology, [facility] in [place], [place] [address] [place] [phone] Velma Munson APRN, C.N.P. [address] [place] [phone] 07/11/2023 11:15 AM CDT Office Visit Division of Rheumatology in [place], [place] [address] [place] [phone] Velma Munson APRN, C.N.P. [address] [place] [phone] documented as of this encounter Visit Diagnoses Diagnosis Arthritis Inflammatory (HCC)- Primary documented in this encounter Additional Health Concerns Infection Onset Date Last Indicated Resolved Time Protective Environment 09/28/2022 09/28/2022 Assessment Noted Time PHQ-9 Depression Total Score: 15 018 1:00 PM WINTER INTERN documented as of this encounter Care Teams Park Manager Relationship Specialty Start Date End Date Elsewhere, Pcp PCP - General Internal Medicine 10/22/19 documented as of this encounter
--- OUTSIDE RECORDS SUMMARY | 2023-05-12 16:19 | XMS_ITS | Clinical Summary ---
Author Name Unknown Organization [facility] Address [place], [place] [address] Care Team Providers Care Rn Nursery Name Role Phone Katerina Contreras Unavailable Rohan [...] nasal solution (FLONASE)Indicati ons:Sinus pressure Inhale 1 [place] into both nostrils once daily. 1 Bottle [...] dise ase (HC). Has seen Rheumatology at [facility]. 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 stable. last noted on MRI 2013 in [place] 08/23/2016 Attention deficit hyperactiv ity disorder (ADHD), [...] age to complete this topic Care Teams Rn Nursery Relationship Specialty Start Date End Date Pcp, No . PCP - General 02/28/19 Katerina Contreras Advertising Sales Assistant 07/21/16
--- OUTSIDE RECORDS SUMMARY | 2023-05-12 16:19 | XMS_ITS | Encounter Summary ---
Author Name Unknown Organization [facility] Address [address], [place] [address] Care Team Providers Care Senior Data Quality Analyst Name Role Phone Unavailable Primary Care Provider Unavailabl e Reason for Referral * Therapies (Routine) - New Request Specialty Diagnoses / Procedures Referred By Contpierre t Referred To Contact Diagnoses Cystitis Recurrent UTI Pelvic floor dysfunction Noelle Dietrich PA-C [address] [place] [address] Referral ID Status Reason Start Date Expiration Date V isits Requested Visits Authorized [id number] New Request 05/21/2022 05/21/2023 1 1 Scheduling [...] or if patient has symptoms? Yes Comments ECLEANER Reason for Visit * Reason Comments CONSULT Encounter Details Date Type Department Care Team Description 05/21/2022 2:00 PM HOUSECLEANER Office Visit Zhanna Swain [address] [address] [address] [place] [phone] Noelle Dietrich PA-C [address] [place] [address] Recurrent UTI (Primary Dx); Chronic [...] no UC) - Care Everywhere revealed multiple [facility] notes - 11/03/2021 SCR 0.91, GFR [...] symptomatic UTIs - evaluated by urology in [place] 4-5 years ago - has been told [...] cleansing - had rectal manometry testing through [facility] and was told her pelvic floor is very weak - will need a DAE for [facility] to review previous notes PMH, PSH, MEDICATIONS, [...] nightly.Adequate trial 12 weeks. - DAE for [facility]. - F/U in 3 months or certainly sooner prn. Thanks, Shira Dietrich PA-C Department of Urologic Surgery TT: 65 minutes spent in chart review, patient counseling, documentation and coordination of care. ECLEANER documented in this encounter Plan of Treatment [...] URINALYSIS DIPSTICK POCT Routine 05/21/2022 2:23 PM HOUSECLEANER documented in this encounter Results * Automated Urinalysis Dipstick POCT (05/21/2022 2:23 PM HOUSECLEANER) Glucose Urine Qual (mg/dL) Negative Negative 05/21/2022 2:25 PM [facility] Bilirubin Urine Negative Negative 05/21/2022 2:25 PM [facility] Ketones, Urine (mg/dL) Negative Negative 05/21/2022 2:25 PM [facility] Specific [place], Urine 1.025 1.005 - 1.030 05/21/2022 2:25 PM [facility] Blood, Urine Negative Neg/Trace 05/21/2022 2:25 PM [facility] PH Urine 5.0 5.0 - 8.0 05/21/2022 2:25 PM [facility] Protein, Urine Qual (mg/dL) Negative Neg/Trace 05/21/2022 2:25 PM [facility] Urobilinogen, Urine (EU/dL) 0.2 <2.0 05/21/2022 2:25 PM [facility] Nitrite Urine Negative Negative 05/21/2022 2:25 PM [facility] Leukocyte Est. Negative Negative 05/21/2022 2:25 PM [facility] Urine Color Yellow Straw-Yellow 05/21/2022 2:25 PM [facility] Urine Clarity Clear Clear 05/21/2022 2:25 PM [facility] Performing Location [facility] 05/21/2022 2:25 PM [facility] Urine 05/21/2022 2:23 PM HOUSECLEANER 05/21/2022 2:25 PM HOUSECLEANER Noelle Dietrich PA-C LAB_1 [facility] [address] [place] [address], [facility] [phone] documented in this encounter Visit Diagnoses Diagnosis [...]
--- OUTSIDE RECORDS SUMMARY | 2023-05-12 16:19 | XMS_ITS | Encounter Summary ---
Author Name Unknown Organization [facility] Address [address] [place] [address] Care Team Providers Care Clerk Guide Name Role Phone Elsewhere, Pcp Primary Care Provider Unavailabl e Reason for Visit * Reason Onset Date Comments Med Question 07/13/2022 Encounter Details Date Type Department Care Team (Latest Contact Info) Description 07/13/2022 Clinical Communication Division of Gastroenterology in [place], [place] [address] [place] [phone] Julián Edouard M.D. [address] [place] [phone] Med Question Social History Tobacco Use Types [...] often do you attend chur ch or advent services? More than 4 times per year 11/16/2021 Do you belong to any clubs o r organizations such as cheondoism groups, unions, fraternal [...] Answer Date Recorded PHQ-2 Score 3 10/04/2018 [facility] - [facility]ational Stress [...] (Latest Contact Info) Description 07/07/2023 12:00 PM ELEMENTARY SCHOOL BAND DIRECTOR Clinical Communication Virtual Review in [place], [place] [address] [place] [address] 07/11/2023 9:00 AM CDT Appointment Department of Laboratory Medicine and Pathology, [facility], in [place], [place] [address] [place] [phone] Velma Munson, GLOBAL SUPPLY CHAIN VICE PRESIDENT, C.N.P. [address] [place] [phone] 07/11/2023 11:15 AM CDT Office Visit Division of Rheumatology in [place], [place] [address] [place] [phone] Velma Munson APRN, C.N.P. [address] [place] [phone] documented as of this encounter Visit Diagnoses Not on filedocumented in this encounter Additional Health Concerns Assessment Noted Time PHQ-9 Depression Total Score: 15 018 1:00 PM ELEMENTARY SCHOOL BAND DIRECTOR documented as of this encounter Care Teams Clerk Guide Relationship Specialty Start Date End Date Elsewhere, Pcp PCP - General Internal Medicine 10/22/19 documented as of this encounter
--- OUTSIDE RECORDS SUMMARY | 2023-05-12 16:19 | XMS_ITS | Clinical Summary ---
Author Name Unknown Organization [facility] Address [address] [place] [address] Care Team Providers Care Zyglo Technician Name Role Phone Unavailable Primary Care Provider [...] for each transition of care or referral. [facility] Allergies Active Allergy Reactions Criticality Noted Date [...] needed for Anxiety. 0 Active aluminum-magnesium antacid-diphenhydr ZOOIF-kxexrassb-bv statin (MAGIC MOUTHWASH) suspension Swish and spit [...]
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
--- NOTE | 2023-05-12 17:27 | ED.NURSE ---
analytical tech notified of admin of meds given. Called imaging due to Pt not having received CT yet. Pt now at imaging.
[2023-05-12] MEDS: POTASSIUM BICARB 25 MEQ EFFERVESCENT TAB PO (18:44)
[2023-05-12 19:13] LABS: Appearance Urine Cloudy (Clear); Bilirubin Urine Negative (Negative); Blood Urine Trace-lysed (Negative); Color Urine Yellow (Yellow); Glucose Urine Negative (Negative); Ketones Urine 1+ (Negative); Leukocyte Esterase Urine Negative (Negative); Nitrite Urine Negative (Negative); Protein Urine Negative (Negative); Specific Gravity Urine 1.015 (1.000-1.030); Urobilinogen Urine 0.2 (0.2-1.0)
[2023-05-12 19:22] VITALS: BP 119/77; PULSE 87; RESP 18; O2SAT 99
[2023-05-12 19:29] LABS: Amorphous Sediment Urine Few; Squamous Epithelial Cell Urine Few (None-Few)
--- NOTE | 2023-05-12 19:56 | ED.NURSE ---
Report given to MARY Dalal.
[2023-05-12] MEDS: CIPROFLOXACIN 500 MG TABLET PO (20:23)
[2023-05-12] MEDS: VANCOMYCIN 125 MG CAPSULE PO (20:24)
[2023-05-12] MEDS: metroNIDAZOLE 500 MG TABLET PO (20:24)
--- NOTE | 2023-05-14 14:35 | ED.NURSE ---
Patient phoned requesting extension of work note as symptoms have not resolved. 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
[2023-05-15 12:28] LABS: Hep A Ab, IgM Negative (Negative); Hep B Core Ab, IgM Negative (Negative); Hep B Surface Antigen Negative (Negative); Hep C Ab by CIA Index 0.03 IV; Hep C Ab by CIA Interp Negative (Negative)
== END 2023-05-12 20:36 | disposition home or self-care (01) ==
PROVIDERS: Emergency Provider Emergency Medicine; PCP Internal Medicine
DX: K52.9 Noninfective gastroenteritis and colitis, unspecified (principal); E87.6 Hypokalemia
CPT/HCPCS: 36415; 74177; 80053; 80074; 81001; 83605; 83735; 85025; 87045; 87046; 87427; 96374; 96375; 99284; A9270; J1200; J1720; J7030; Q9967

== ENCOUNTER 2023-05-17 19:56 | Emergency (ER) | payer BC, SELFPAY ==
[2023-05-17 20:01] VITALS: BP 126/75; PULSE 100; RESP 18; TEMP 36.8; O2SAT 98; BMI 25.7
--- NOTE | 2023-05-17 20:11 | CRLHL7_ITS ---
For Patients: As a result of the Century Cures Act, medical imaging exams and procedure reports are released immediately into your electronic medical record. You may view this report before your referring provider. If you have questions, please contact your health care provider. INDICATION: Fall. TECHNIQUE: Right ankle 3 views. COMPARISON: None. FINDINGS: No acute fracture or dislocation. Ankle mortise is symmetric. There is an ankle joint effusion. Mild soft tissue swelling about the ankle. IMPRESSION: Soft tissue swelling and ankle joint effusion. No fracture identified. Dictated by Manuela Kessler MD @ 05/17/2023 8:52:04 PM (Electronically Signed)
--- NOTE | 2023-05-17 20:41 | ED.FALL ---
HPI - Fall General Chief Complaint: Fall/Minor Trauma Stated Complaint: Fell down concrete steps Time Seen by Provider: 05/17/23 20:07 History of Present Illness HPI Narrative: This 52-year-old female comes in with an injury to her right ankle that occurred prior to arrival. She fell down some steps and twisted her right ankle. She does not report any other injury. She was able to get up and did bear some weight on this ankle but states that it was difficult to do so. She reports pain on the lateral aspect of her right ankle. Related Data Home Medications Medication Instructions Recorded Confirmed methotrexate sodium (PF) 25 mg/mL 50 mg IM QWEEK 11/25/21 05/16/23 injection solution pantoprazole 40 mg tablet,delayed 40 mg PO BID 11/25/21 05/16/23 release folic acid 1 mg tablet 1 mg PO BID 07/26/22 05/16/23 hydroxychloroquine 200 mg tablet 200 - 400 mg PO .UD 07/26/22 05/16/23 levonorgestrel 21 mcg/24 hours (8 1 device intrauterine ONCE 07/26/22 05/16/23 yrs) 52 mg intrauterine device (Mirena) ondansetron 4 mg disintegrating 4 mg PO Q8H PRN 04/07/23 05/16/23 tablet Previous Rx's Medication Instructions Recorded hydroxyzine HCl 25 mg tablet 25 mg PO .As Needed PRN Headaches 10/15/22 #30 tabs tranexamic acid 650 mg tablet 650 mg PO DAILY Vitiligo #30 tabs 12/14/22 semaglutide 2 mg/dose (8 mg/3 mL) 2 mg (0.75 mL) subcut QWEEK 01/13/23 subcutaneous pen injector (Ozempic) Obesity #3 mL lcvyqsciyd-rojrbbpbpugwc-hicldbis 1 tab PO Q4-6H PRN pain #60 tabs 03/22/23 50 mg-325 mg-40 mg tablet dicyclomine 10 mg capsule 10 mg PO QID PRN abdominal pain 03/22/23 #60 caps galcanezumab-gnlm 120 mg/mL 240 mg (2 mL) subcut ONCE #2 mL 03/22/23 subcutaneous pen injector (Emgality Pen) sumatriptan succinate 6 mg/0.5 mL 6 mg (0.5 mL) subcut .As Needed as 03/22/23 subcutaneous pen injector needed PRN migraine headache #1 mL alprazolam 1 mg tablet 3 mg (3 x 1 mg) PO .HS anxiety #90 04/13/23 tabs potassium chloride 20 mEq 20 meq PO ONCE #30 tabs 04/13/23 tablet,extended release dextroamphetamine-amphetamine ER 15 mg PO DAILY #30 caps 04/20/23 15 mg 24hr capsule,extend release dextroamphetamine-amphetamine ER 30 mg PO DAILY #30 caps 04/20/23 30 mg 24hr capsule,extend release diphenoxylate-atropine 2.5 1 tab PO TID PRN diarrhea #30 tabs 05/10/23 mg-0.025 mg tablet (Lomotil) ciprofloxacin HCl 500 mg tablet 500 mg PO BID 7 days #14 tabs 05/12/23 (Cipro) metronidazole 500 mg tablet 500 mg PO BID 7 days #14 tabs 05/12/23 vancomycin 125 mg capsule 125 mg PO QID #30 caps 05/12/23 (Vancocin) Allergies Allergy/AdvReac Type Severity Reaction Status Date / Time iodine Allergy Intermediate Fainting, Verified 05/16/23 15:31 sob hydrocodone Allergy Mild Itching Verified 05/16/23 15:31 adhesive Allergy Unknown Rash Verified 05/16/23 15:31 pecan nut Allergy Verified 05/16/23 15:31 Review of Systems Status of ROS: Reports: 10 or more systems reviewed and unremarkable except as noted in History and below Narrative: Constitutional: No fevers, no weight gain or loss. Eyes: No discharge. No vision changes. HENT: No congestion, no sore throat, no ear pain. Cardiovascular: No chest pain, no palpitations. Respiratory: No shortness of breath, no wheezes, no cough. Gastrointestinal: No abdominal pain, no vomiting, no diarrhea. Genitourinary: No dysuria, no hematuria. Musculoskeletal: Right ankle injury as described above. Skin: No rashes, no pruritis. Neurological: No dizziness, weakness, sensory change, speech change. Endo/Heme/Allergies: No bruising or bleeding. No polydipsia. Pysch: no suicidality, no anxiety, no insomnia. All other systems reviewed and are negative. [facility] Medical History Diarrhea ?R19.7 - Diarrhea, unspecified (ICD-10) Otitis media ?H66.90 - Otitis media, unspecified, unspecified ear (ICD-10) Sinusitis ?J32.9 - Chronic sinusitis, unspecified (ICD-10) Reflux esophagitis ?K21.00 - Gastro-esophageal reflux disease with esophagitis, without bleeding (ICD-10) Hypokalemia ?E87.6 - Hypokalemia (ICD-10) Abdominal pain ?R10.9 - Unspecified abdominal pain (ICD-10) Systemic lupus erythematosus ?M32.9 - Systemic lupus erythematosus, unspecified (ICD-10) Chloasma ?L81.1 - Chloasma (ICD-10) Headache ?R51.9 - Headache, unspecified (ICD-10) Obesity ?E66.9 - Obesity, unspecified (ICD-10) Complication of gastric band procedure (09/27/18) ?K95.09 - Other complications of gastric band procedure (ICD-10) Autoimmune disease ?M35.9 - Systemic involvement of connective tissue, unspecified (ICD-10) Surgical History History of umbilical hernia repair ?Z98.890 - Other specified postprocedural states (ICD-10) ?Z87.19 - Personal history of other diseases of the digestive system (ICD-10) History of tonsillectomy ?Z90.89 - Acquired absence of other organs (ICD-10) History of surgery on left wrist ?Z98.890 - Other specified postprocedural states (ICD-10) History of right knee surgery ?Z98.890 - Other specified postprocedural states (ICD-10) History of removal of laparoscopic gastric banding device (09/27/18) ?Z98.84 - Bariatric surgery status (ICD-10) History of reduction mammoplasty ?Z98.890 - Other specified postprocedural states (ICD-10) History of laparoscopic adjustable gastric banding (2006) ?Z98.84 - Bariatric surgery status (ICD-10) History of cholecystectomy ?Z90.49 - Acquired absence of other specified parts of digestive tract (ICD-10) History of abdominoplasty (2017) ?Z98.890 - Other specified postprocedural states (ICD-10) Social History Narrative: 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 HEENT: Normocephalic, atraumatic. Neck: Normal range of motion. Nontender. Supple. Heart: Regular. No murmurs. Normal rate. Intact distal pulses. Lungs: Clear to auscultation. No chest discomfort. No wheezes, rhonchi, or rales. Abdomen: Normal bowel sounds. Nontender. No rebound tenderness. Genitalia: Deferred. Back: No midline tenderness. Normal range of motion. Extremities: Decreased range of motion to the right ankle due to pain. No pain when palpating over the medial malleolus. She has tenderness over the lateral malleolus of the right ankle. There is no joint effusion or ligament instability. She has mild swelling on the lateral aspect. Skin: Intact. No rash. Warm. No erythema or pallor. Neurologic: No altered sensation. No weakness. Alert and oriented. Psychiatric: No suicidality. No anxiety or depression. No insomnia. Nursing notes and vitals signs are reviewed. Const: Vital Signs, click to edit/add: Vital Signs - 24 hr 05/17/23 20:01 Temperature 98.2 F Pulse Rate [Left P ulse Oximeter] 100 Respiratory Rate 18 Blood Pressure [Ri ght Upper Arm] 126/75 Pulse Oximetry 98 Oxygen Delivery Me thod Room Air Course Vital Signs Vital signs: Initial Vital Signs Temperature 98.2 F 05/17/23 20:01 Temperature Source Temporal Artery Scan 05/17/23 20:01 Pulse Rate 100 05/17/23 20:01 Pulse Rhythm Regular 05/17/23 20:01 Respiratory Rate 18 05/17/23 20:01 Blood Pressure 126/75 05/17/23 20:01 Blood Pressure Mean 92 05/17/23 20:01 Blood Pressure Position Sitting 05/17/23 20:01 Pulse Oximetry 98 05/17/23 20:01 Oxygen Delivery Method Room Air 05/17/23 20:01 Vital Signs Temperature 98.2 F 05/17/23 20:01 Pulse Rate 100 05/17/23 20:01 Respiratory Rate 18 05/17/23 20:01 Blood Pressure 126/75 05/17/23 20:01 Pulse Oximetry 98 05/17/23 20:01 Oxygen Delivery Method Room Air 05/17/23 20:01 Temperature 98.2 F 05/17/23 20:01 Pulse Rate 100 05/17/23 20:01 Respiratory Rate 18 05/17/23 20:01 Blood Pressure 126/75 05/17/23 20:01 Pulse Oximetry 98 05/17/23 20:01 Oxygen Delivery Method Room Air 05/17/23 20:01 MDM - Fall MDM Narrative Medical decision making narrative: X-ray imaging of the right ankle is obtained to evaluate this patient's injury. By my review there is no sign of fracture or dislocation. Radiology report is pending. The patient did receive crutches and a prescription for Toradol. She is encouraged to increase activity as tolerated. Discharge Plan Discharge Clinical Impression: Ankle sprain Patient Disposition: Home w/ Parent or Adult Condition: Stable Additional Instructions: Use crutches as needed. Increase activity as tolerated. Take medication also as needed and directed. Follow up with MD return if worsening. Prescriptions: No Action methotrexate sodium (PF) 25 mg/mL solution 50 mg IM QWEEK pantoprazole 40 mg tablet,delayed release (DR/EC) 40 mg PO BID folic acid 1 mg tablet 1 mg PO BID hydroxychloroquine 200 mg tablet 200 - 400 mg PO .UD Rx Instructions: Alternates every other day between 200 and 400mg. Mirena 21 mcg/24 hours (8 yrs) 52 mg intrauterine device 1 device intrauterine ONCE Rx Instructions: as a single dose dicyclomine 10 mg capsule 10 mg PO QID PRN (Reason: abdominal pain) Qty: 60 0RF Emgality Pen 120 mg/mL pen injector 240 mg subcut ONCE Qty: 2 0RF Rx Instructions: as a single dose; administer as two 120 mg injections at separate sites sumatriptan succinate 6 mg/0.5 mL pen injector 6 mg subcut .As Needed as needed PRN (Reason: migraine headache) Qty: 1 3RF Rx Instructions: 3 boxes with 3 refills. qkmvmifgpv-girvgpudgkugw-eeft 50-325-40 mg tablet 1 tab PO Q4-6H PRN (Reason: pain) Qty: 60 0RF dextroamphetamine-amphetamine 15 mg capsule,extended release 24hr 15 mg PO DAILY Qty: 30 0RF dextroamphetamine-amphetamine 30 mg capsule,extended release 24hr 30 mg PO DAILY Qty: 30 0RF diphenoxylate-atropine [Lomotil] 2.5-0.025 mg tablet 1 tab PO TID PRN (Reason: diarrhea) Qty: 30 0RF ondansetron 4 mg tablet,disintegrating 4 mg PO Q8H PRN potassium chloride 20 mEq tablet extended release 20 meq PO ONCE Qty: 30 3RF alprazolam 1 mg tablet 3 mg PO .HS Qty: 90 0RF vancomycin [Vancocin] 125 mg capsule 125 mg PO QID Qty: 30 0RF metronidazole 500 mg tablet 500 mg PO BID 7 Days Qty: 14 0RF ciprofloxacin HCl [Cipro] 500 mg tablet 500 mg PO BID 7 Days Qty: 14 0RF hydroxyzine HCl 25 mg tablet 25 mg PO .As Needed PRN (Reason: Headaches) Qty: 30 2RF tranexamic acid 650 mg tablet 650 mg PO DAILY Qty: 30 0RF Ozempic 2 mg/dose (8 mg/3 mL) pen injector 2 mg subcut QWEEK Qty: 3 0RF Follow Up/Referrals: Taran Rivas MD [Primary Care Provider] - Stand Alone Forms: [facility] Info Instructions
== END 2023-05-17 21:03 | disposition home or self-care (01) ==
LOC: ED 20:47
PROVIDERS: Emergency Provider Emergency Medicine Emergency Medical Services; PCP Internal Medicine
DX: S93.401A Sprain of unspecified ligament of right ankle, initial encounter (principal)
CPT/HCPCS: 73610; 99283; 99284

== ENCOUNTER 2023-05-24 14:37 | Outpatient (CLI) | payer BC, SELFPAY ==
--- OUTSIDE RECORDS SUMMARY | 2023-05-24 14:40 | XMS_ITS ---
Author Name Unknown Organization [facility] Address [address] [place] [address] Care Team Providers Care Historical Guide Name Role Phone Unavailable Unavailable Unavailable Surgery Details Not on file Complications Check Surgery Details section. Procedure Estimated Blood Loss Check Surgery Details section. Procedure Findings Check Surgery Details section. Procedure Specimens Taken Check Surgery Details section.
--- OUTSIDE RECORDS SUMMARY | 2023-05-24 14:40 | XMS_ITS | Encounter Summary ---
Author Name Unknown Organization [facility] Address [address] [place] [address] Care Team Providers Care Senior Procurement Specialist Name Role Phone Elsewhere, Pcp Primary Care Provider Unavailabl e Encounter Details Date Type Department Care Team (Late st Contact Info) Description 02/13/2023 E-Visit Division of Rheumatology in [place], [place] [address] [place] [phone] Velma Munson, BIOLOGICAL SCIENCE AIDE, C.N.P. [address] [place] [phone] RA/Autoimmune Social History Tobacco Use Types Packs/Day [...] How often do you attend chur or sabianist services? More than 4 times per year 11/16/2021 Do you belong to any clubs o r organizations such as catholic groups, unions, fraternal [...] Answer Date Recorded PHQ-2 Score 3 10/04/2018 [facility] - Occupational Stress Questionnaire Answer Date [...] Department Care Team (Latest Contact Info) Description 07/05/2023 8:45 AM CARPET FINISHING SUPERVISOR Clinical Communication Virtual Review in [place], [place] [address] [place] [address] 07/07/2023 7:20 AM CARPET FINISHING SUPERVISOR Appointment Department of Laboratory Medicine and Pathology, [facility], in [place], [place] [address] [place] [phone] Velma Munson APRN, C.N.P. [address] [place] [phone] 07/07/2023 9:30 AM CARPET FINISHING SUPERVISOR Office Visit Division of Rheumatology in [place], [place] [address] [place] [phone] Velma Munson APRN, C.N.P. [address] [place] [phone] documented as of this encounter Visit Diagnoses Diagnosis Arthritis Inflammatory (HCC)- Primary documented in this encounter Additional Health Concerns Infection Onset Date Last Indicated Resolved Time Protective Environment 09/28/2022 09/28/2022 Assessment Noted Time PHQ-9 Depression Total Score: 15 018 1:00 PM CARPET FINISHING SUPERVISOR documented as of this encounter Care Teams Senior Procurement Specialist Relationship Specialty Start Date End Date Elsewhere, Pcp PCP - General Internal Medicine 10/22/19 documented as of this encounter
--- OUTSIDE RECORDS SUMMARY | 2023-05-24 14:40 | XMS_ITS | Referral Summary ---
Author Name Unknown Organization [facility] Address [address] [place] [address] Care Team Providers Care Auto Technician Mechanic Name Role Phone Elsewhere, Pcp Primary Care Provider Unavailabl e Source Comments Patient records contain information from all sites at [facility]. For routine questions regarding patient records, call [phone] during business hours, M-F 8:00 AM - 5:00 PM Central Time. Record requests for emergency care only can be directed to [phone] at any time.[facility] Encounters Date Type Department Care Team Description 02/28/2023 Clinical Communication Division of Gastroenterology in [place], [place] [address] [place] [phone] Julián Edouard M.D. from Last 3 Months Allergies Active Allergy [...] AT BEDTIME FOR ANXIETY 0 09/20/2022 Active topiramate (TOPAMAX) 100 mg tablet Take [...] mouth daily. 180 tablet 2 02/18/2023 Active nitrofurantoin monohydrate (MACROBID) 100 mg capsule as needed. 0 05/21/2022 4 Active Problems Problem Noted Date Diagnosed Date [...] How often do you attend chur or rastafarian services? More than 4 times per year 11/16/2021 Do you belong to any clubs o r organizations such as religious groups, unions, fraternal [...] Answer Date Recorded PHQ-2 Score 3 10/04/2018 [facility] - Occupational [...] (Latest Contact Info) Description 07/05/2023 8:45 AM COLLEGE SPORTS ASSISTANT Clinical Communication Virtual Review in [place], [place] [address] [place] [address] 07/07/2023 7:20 AM COLLEGE SPORTS ASSISTANT Appointment Department of Laboratory Medicine and Pathology, [facility], in [place], [place] [address] [place] [phone] Velma Munson APRN, C.N.P. [address] [place] [phone] 07/07/2023 9:30 AM COLLEGE SPORTS ASSISTANT Office Visit Division of Rheumatology in [place], [place] [address] [place] [phone] Velma Munson APRN, C.N.P. [address] [place] [phone] Medical Devices Implanted Type Area Aquatic Habitat Biologist Device Identifier Shelf Expiration Date Model / Serial / Lot Intrauterine Device Intrauterine Device Uterus Description:IUD Mirena Conversions - Default Historical Implant Device Implanted:05/04 (Quantity not on file) Misc Other Abdomen Description:Body Location - Abdominal. Device Status Text - MiscOther. lapband. Additional Health Concerns Infection Onset Date Last Indicated Protective Environment 09/28/2022 3 Care Teams Auto Technician Mechanic Relationship Specialty Start Date End Date Elsewhere, Pcp PCP - General Internal Medicine 10/22/19
--- OUTSIDE RECORDS SUMMARY | 2023-05-24 14:40 | XMS_ITS | Encounter Summary ---
Author Name Unknown Organization [facility] Address [address] [place] [address] Care Team Providers Care Education Coordinator Name Role Phone Elsewhere, Pcp Primary Care Provider Unavailabl e Reason for Visit * Reason Comments Med Refill Encounter Details Date Type Department Care Team (Late st Contact Info) Description 12/27/2022 Refill Division of Gastroenterology in [place], [place] [address] [place] [phone] Julián Edouard M.D. [address] [place] [phone] Med Refill Social History Tobacco Use Types [...] How often do you attend chur or zoroastrian services? More than 4 times per year 11/16/2021 Do you belong to any clubs o r organizations such as episcopal groups, unions, fraternal [...] 10/04/2018 [facility] - Occupational Stress Questionnaire Answer [...] (Latest Contact Info) Description 07/05/2023 8:45 AM CARROT BUNCHER Clinical Communication Virtual Review in [place], [place] 200 [place] [address] 07/07/2023 7:20 AM CARROT BUNCHER Appointment Department of Laboratory Medicine and Pathology, [facility], in [place], [place] [address] [place] [phone] Velma Munson, LONG, C.N.P. [address] [place] [phone] 07/07/2023 9:30 AM CARROT BUNCHER Office Visit Division of Rheumatology in [place], [place] [address] [place] [phone] Velma Munson, LONG, C.N.P. [address] [place] [phone] documented as of this encounter Visit Diagnoses Not on filedocumented in this encounter Additional Health Concerns Infection Onset Date Last Indicated Resolved Time Protective Environment 09/28/2022 09/28/2022 Assessment Noted Time PHQ-9 Depression Total Score: 15 018 1:00 PM CARROT BUNCHER documented as of this encounter Care Teams Education Coordinator Relationship Specialty Start Date End Date Elsewhere, Pcp PCP - General Internal Medicine 10/22/19 documented as of this encounter
--- OUTSIDE RECORDS SUMMARY | 2023-05-24 14:40 | XMS_ITS | Clinical Summary ---
Author Name Unknown Organization [facility] Address [place], [place] [address] Care Team Providers Care Assistant Case Manager Name Role Phone Katerina Contreras Unavailable Rohan [...] nasal solution (FLONASE)Indicati ons:Sinus pressure Inhale 1 K[place]man into both nostrils once daily. 1 Bottle [...] dise ase (HC). Has seen Rheumatology at [facility]. 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 stable. last noted on MRI 2013 in [place] 08/23/2016 Attention deficit hyperactiv ity disorder (ADHD), [...] (1 of 2) 12/30/2021 COVID-19 vaccine series (2022-24 season) 2022 11/13/2021, 08/06/2021, 05/15/2020, Additional history exists Influenza for age 50-64 2022 01/31/20 17, 02/09/2016, 02/09/2016, Additional history exists Pap test for age 21-65 08/15/2023 , 08/14/2020, 01/14/2015 (Completed outside of [facility]) Tetanus booster 07/11/2024 07/11/2014, 07/11/2014 Colonoscopy through age 75 11/11/2024 11/11/2014 Tdap Completed 07/11/2014, 07/11/2014 Pneumococcal series for age 6-64 Aged Out No longer eligible based on patient's age to complete this topic Care Teams Assistant Case Manager Relationship Specialty Start Date End Date Pcp, No . PCP - General 02/28/19 Katerina Contreras Sweatband Separator 07/21/16
--- OUTSIDE RECORDS SUMMARY | 2023-05-24 14:40 | XMS_ITS | Encounter Summary ---
Author Name Unknown Organization [facility] Address [address] [place] [address] Care Team Providers Care Faa Certified Powerplant Mechanic Name Role Phone Elsewhere, Pcp Primary Care Provider Unavailabl e Reason for Visit * Reason Comments Med Refill Encounter Details Date Type Department Care Team (Late st Contact Info) Description 01/27/2023 Refill Division of Gastroenterology in [place], [place] [address] [place] [phone] Julián Edouard M.D. [address] [place] [phone] Med Refill Social History Tobacco Use Types [...] How often do you attend chur or church services? More than 4 times per year [...] Score 3 10/04/2018 [facility] - Occupational Stress Questionnaire Answer Date Recorded [...] (Latest Contact Info) Description 07/05/2023 8:45 AM SHAREPOINT ADMIN Clinical Communication Virtual Review in [place], [place] [address] [place] [address] 07/07/2023 7:20 AM SHAREPOINT ADMIN Appointment Department of Laboratory Medicine and Pathology, [facility], in [place], [place] [address] [place] [phone] Velma Munson, LONG, C.N.P. [address] [place] [phone] 07/07/2023 9:30 AM SHAREPOINT ADMIN Office Visit Division of Rheumatology in [place], [place] [address] [place] [phone] Velma Munson, LONG, C.N.P. [address] [place] [phone] documented as of this encounter Visit Diagnoses Not on filedocumented in this encounter Additional Health Concerns Infection Onset Date Last Indicated Resolved Time Protective Environment 09/28/2022 09/28/2022 Assessment Noted Time PHQ-9 Depression Total Score: 15 018 1:00 PM SHAREPOINT ADMIN documented as of this encounter Care Teams Faa Certified Powerplant Mechanic Relationship Specialty Start Date End Date Elsewhere, Pcp PCP - General Internal Medicine 10/22/19 documented as of this encounter
--- OUTSIDE RECORDS SUMMARY | 2023-05-24 14:40 | XMS_ITS | Clinical Summary ---
Author Name Unknown Organization [facility] Address [address] [place] [address] Care Team Providers Care Securities Trader Name Role Phone Elsewhere, Pcp Primary Care Provider Unavailabl e Source Comments Patient records contain information from all sites at [facility]. For routine questions regarding patient records, call [phone] during business hours, M-F 8:00 AM - 5:00 PM Central Time. Record requests for emergency care only can be directed to [phone] at any time.[facility] Allergies Active Allergy Reactions Criticality [...] 02/28/2023 Clinical Communication Division of Gastroenterology in [place], [place] [address] [place] [address] Julián Edouard M.D. from Last 3 Months Immunizations Name Administration [...] bah Coronary artery disease Maternal Grandfather reagan jean osbaldo Diabetes Maternal Grandfather reagan bah Hypertension Maternal Grandfather reagan bah Arthritis Maternal Grandmother jose e bah Hypertension Maternal Grandmother jose e bah Migraines Maternal Grandmother jose e bah Stroke Maternal Grandmother jose e niurka Transient ischemic attack Maternal Grandmother jose e landin onzabrent Hyperlipidemia Mother apple jose Hypertension Mother apple jose Migraines Mother apple jose Sleep apnea Mother apple jose Thyroid disease Mother apple jose Diabetes Paternal Grandfather nichole montelongoosa Hypertension Paternal Grandfather nichole reeseamadaosa Sleep apnea Paternal Grandfather nichole reeseragosa Arthritis Paternal Grandmother mega reeseragosa Diabetes Paternal Grandmother hope zaragosa Hypertension Paternal Grandmother hope hughragterry Asthma Sister madisyn tafoya Relation Name Status Comments Father nichole velasquez Maternal Grandfather reagan bah Maternal Grandmother jose e bah Mother apple garcia Paternal Grandfather nichole velasquez Paternal Grandmother mega velasquez Sister madisyn tafoya Social History Tobacco Use [...] How often do you attend chur or bahai services? More than 4 times per year 11/16/2021 Do you belong to any clubs o r organizations such as taoist groups, unions, fraternal [...] Answer Date Recorded PHQ-2 Score 3 10/04/2018 [facility] of Occupat ional Health - [...] (Latest Contact Info) Description 07/05/2023 8:45 AM LDR NURSE Clinical Communication Virtual Review in [place], [place] 200 [place] [address] 07/07/2023 7:20 AM LDR NURSE Appointment Department of Laboratory Medicine and Pathology, [facility], in [place], [place] [address] [place] [phone] Velma Munson, LONG, C.N.P. [address] [place] [phone] 07/07/2023 9:30 AM LDR NURSE Office Visit Division of Rheumatology in [place], [place] [address] [place] [phone] Velma Munson APRN, C.N.P. [address] [place] [address] Health Maintenance Due Date Last Done Comments CT Colonography 1971 Cologuard 1971 Depression Monitoring (PHQ-9) 1971 FIT 1971 Fasting Glucose for Diabetes Screening 1971 HIV Screening 1971 Lipid (Cholesterol) Screening 1971 Hydroxychloroquine (PLAQUENI L) Baseline Exam 01/25/2018 Mammogram 01/30/2018 01/30/2017 (Perf ormed elsewhere), 2014 (Performed elsewhere), 12/26/2012 COVID-19 Vaccine ( - 2022-2 4 season) 2022 11/13/2021, 11/13/2021, 08/06/2021, Additional [...] this topic Medical Devices Implanted Type Area Machine Stone Polisher Apprentice Device Identifier Shelf Expiration Date Model / Serial / Lot Intrauterine Device Intrauterine Device Uterus Description:IUD Mirena Conversions - Default Historical Implant Device Implanted:05/04 (Quantity not on file) Misc Other Abdomen Description:Body Location - Abdominal. Device Status Text - MiscOther. lapband. Additional Health Concerns Infection Onset Date Last Indicated Protective Environment 09/28/2022 3 Care Teams Securities Trader Relationship Specialty Start Date End Date Elsewhere, Pcp PCP - General Internal Medicine 10/22/19
--- OUTSIDE RECORDS SUMMARY | 2023-05-24 14:40 | XMS_ITS | Encounter Summary ---
Author Name Unknown Organization [facility] Address [address] [place] [address] Care Team Providers Care User Support Analyst Supervisor Name Role Phone Elsewhere, Pcp Primary Care Provider Unavailabl e Reason for Referral * Outpatient (Routine) - Authorized Specialty Diagnoses / Procedures Referred By Contac t Referred To Contact Rheumatology Diagnoses . Velma Munson APRN, C.N.P. [address] [place] [phone] [facility] Referral ID Status Reason Start Date Expiration Date V isits Requested Visits Authorized [id number] Authorized 09/30/2022 09/29/2025 1 1 Reason for Visit * Outpatient (Routine) - Closed Specialty Diagnoses / Procedures Referred By Contac t Referred To Contact Rheumatology Diagnoses na Velma Munson APRN, C.N.P. [address] [place] [phone] [facility] Referral ID Status Reason Start Date Expiration Date Visits Re quested Visits Authorized [id number] Closed 11/17/2021 11/17/2022 1 1 Encounter Details Date Type Department Care Team (Latest Contact Info) Description 09/30/2022 10:30 AM CDT Office Visit Division of Rheumatology in [place], [place] [address] [place] [phone] Velma Munson APRN, C.N.P. [address] [place] [phone] Arthritis Inflammatory (HCC) (Primary Dx); Xerostomia Social [...] How often do you attend chur or oriental orthodox services? More than 4 times per year 11/16/2021 Do you belong to any clubs o r organizations such as samaritan groups, unions, fraternal [...] Answer Date Recorded PHQ-2 Score 3 10/04/2018 [facility] of Occupat ional [facility] - Occupational Stress Questionnaire Answer [...] slept in a skilled nursing (including now)? No 11/16/2021 Nutrition Answer Date [...] global assessment (0-100) 60 4 50 77 Carport Erector global assessment (0-100) 30 20 30 50 ESR (mm/h) 17 -- -- 5 CRP (mg/L) 4.8 -- -- 5.1 Disease Activity Score 28 using ESR ([id number]-[id number]) 3.62 -- -- 3.28 Disease Activity Score 28 using CRP ([id number]) 3.22 -- -- 3.76 Clinical Disease Activity [...] laboratory slip to do labs locally in [place]. I will follow up with her in 6 months. I answered the patients questions to the best of my ability. The patient seemed pleased with our interaction. If she should have any additional questions or concerns. [facility]. ' documented in this encounter Plan of Treatment Upcoming Encounters Date Type Department Care Team (Latest Contact Info) Description 07/05/2023 8:45 AM SIMPLEX PRINTER INSTALLER Clinical Communication Virtual Review in [place], [place] 200 [place] [address] 07/07/2023 7:20 AM SIMPLEX PRINTER INSTALLER Appointment Department of Laboratory Medicine and Pathology, [facility], in [address] [phone] Velma Munson APRN, C.N.P. [address] [place] [phone] 07/07/2023 9:30 AM SIMPLEX PRINTER INSTALLER Office Visit Division of Rheumatology in [place], [place] [address] [place] [address] Velma Munson, LONG, C.N.P. [address] [place] [phone] Scheduled Orders Name Type Priority Associated Diagnoses [...] Depression Total Score: 15 018 1:00 PM SIMPLEX PRINTER INSTALLER documented as of this encounter Care Teams User Support Analyst Supervisor Relationship Specialty Start Date End Date Elsewhere, Pcp PCP - General Internal Medicine 10/22/19 documented as of this encounter
--- OUTSIDE RECORDS SUMMARY | 2023-05-24 14:40 | XMS_ITS | Encounter Summary ---
Author Name Unknown Organization [facility] Address [address] [place] [address] Care Team Providers Care Data Communications Software Consultant Name Role Phone Elsewhere, Pcp Primary Care Provider Unavailabl e Encounter Details Date Type Department Care Team (Latest Contact Info) Description 02/28/2023 Clinical Communication Division of Gastroenterology in [place], [place] [address] [place] [address] Julián Edouard M.D. [address] [place] [phone] Social History Tobacco Use Types Packs/Day Years [...] often do you attend chur ch or congregational services? More than 4 times per year 11/16/2021 Do you belong to any clubs o r organizations such as hinduism groups, unions, fraternal [...] (Latest Contact Info) Description 07/05/2023 8:45 AM NET WEB DEVELOPER Clinical Communication Virtual Review in [place], [place] [address] [place] [address] 07/07/2023 7:20 AM NET WEB DEVELOPER Appointment Department of Laboratory Medicine and Pathology, [facility], in [place], [place] [address] [place] [phone] Velma Munson, WELLNESS PROGRAM MANAGER, C.N.P. [address] [place] [phone] 07/07/2023 9:30 AM NET WEB DEVELOPER Office Visit Division of Rheumatology in [place], [place] [address] [place] [phone] Velma Munson, LONG, C.N.P. [address] [place] [phone] documented as of this encounter Visit Diagnoses Not on filedocumented in this encounter Additional Health Concerns Infection Onset Date Last Indicated Resolved Time Protective Environment 09/28/2022 09/28/2022 Assessment Noted Time PHQ-9 Depression Total Score: 15 018 1:00 PM NET WEB DEVELOPER documented as of this encounter Care Teams Data Communications Software Consultant Relationship Specialty Start Date End Date Elsewhere, Pcp PCP - General Internal Medicine 10/22/19 documented as of this encounter
--- OUTSIDE RECORDS SUMMARY | 2023-05-24 14:41 | XMS_ITS | Encounter Summary ---
Author Name Unknown Organization [facility] Address [address] [place] [address] Care Team Providers Care Paint Stripper Name Role Phone Elsewhere, Pcp Primary Care Provider Unavailabl e Encounter Details Date Type Department Care Team (Latest Contact Info) Description 09/30/2022 8:20 AM CDT - 09/30/2022 11:59 PM CDT Hospital Encounter Department of Laboratory Medicine and Pathology, [facility] in [place], [place] [address] [place] [address] Velma Munson, LONG, C.N.P. [address] [place] [address] Arthritis Inflammatory (HCC) Discharge Disposition: Home or [...] any clubs o r organizations such as methodist groups, unions, fraternal [...] 3 10/04/2018 [facility] of Occupat ionct Health - Occupational Stress Questionnaire Answer Date [...] Take 100 mg by mouth daily. 0 Ozempic 0.25 mg or 0.5 mg (2 [...] Take 650 mg by mouth daily. 0 nitrofurantoin monohydrate (MACROBID) 100 mg capsule as needed. 0 05/21/2022 05/21/2023 folic acid 1 mg tabletIndications:Art hritis Inflammatory [...] (Latest Contact Info) Description 07/05/2023 8:45 AM GENERAL FORECASTER Clinical Communication Virtual Review in [place], [place] 200 [place] [address] 07/07/2023 7:20 AM GENERAL FORECASTER Appointment Department of Laboratory Medicine and Pathology, [facility], in [place], [place] [address] [place] [phone] Velma Munson APRN, C.N.P. [address] [place] [phone] 07/07/2023 9:30 AM GENERAL FORECASTER Office Visit Division of Rheumatology in [place], [place] [address] [place] [phone] Velma Munson APRN, C.N.P. [address] [place] [phone] documented as of this encounter Procedures Procedure [...] Velma Munson APRN, C.N.P. LAB BLOOD ADD-ON [facility] [address] [place] [address], [facility] [address] [place] [address] * Creatinine with Estimated GFR (09/30/2022 8:57 AM CDT) Creatinine 0.90 0.59 - 1.04 mg/dL 09/30/2022 10:06 AM CDT DT Estimated GFR (eGFR) 78 >=60 mL/min/BSA 09/30/2022 10:06 AM CDT DTL Comment: Estimated GFR calculated using the 2020 CKD_EPI creatinine equation. Blood (Blood, Venous) 09/30/2022 8:57 AM CDT 09/30/2022 9:33 AM CDT Velma Munson APRN, C.N.P. LAB BLOOD ADD-ON [facility] [address] [place] [address], [facility] [address] [place] [address] * (ABNORMAL) CRP (C-Reactive Protein) (09/30/2022 8:57 AM CDT) C-Reactive Protein (CRP), S 5.1(H) <5.0 mg/L 09/30/2022 10:06 AM CDT DT Blood (Blood, Venous) 09/30/2022 8:57 AM CDT 09/30/2022 9:33 AM CDT Velma Munson APRN, C.N.P. LAB BLOOD ADD-ON [facility] [address] [place] [address], [facility] [address] [place] [address] * Sedimentation Rate (09/30/2022 8:57 AM CDT) Sedimentation Rate, B 5 2 - 20 mm/h 09/30/2022 10:37 AM CDT DTL Blood (Blood, Venous) 09/30/2022 8:57 AM CDT 09/30/2022 9:18 AM CDT Velma Lana Munson APRN C.N.PLennox LAB BLOOD ADD-ON [facility] [address] [place] [address], [facility] [address] [place] [address] * (ABNORMAL) CBC with Differential, Blood (09/30/2022 8:57 AM CDT) Hemoglobin 15.2(H) 11.6 - 15.0 g/dL 09/30/2022 [...] CDT 09/30/2022 9:18 AM CDT Velma Munson APRN, C.N.P. LAB BLOOD ADD-ON [facility] [address] [place] [address], [facility] 200 [place] [address] documented in this encounter Visit Diagnoses Diagnosis Arthritis Inflammatory (HCC) documented in this encounter Additional Health Concerns Infection Onset Date Last Indicated Resolved Time Protective Environment 09/28/2022 09/28/2022 Assessment Noted Time PHQ-9 Depression Total Score: 15 018 1:00 PM GENERAL FORECASTER documented as of this encounter Care Teams Paint Stripper Relationship Specialty Start Date End Date Elsewhere, Pcp PCP - General Internal Medicine 10/22/19 documented as of this encounter
--- OUTSIDE RECORDS SUMMARY | 2023-05-24 14:41 | XMS_ITS | Encounter Summary ---
Author Name Unknown Organization [facility] Address [address] [place] [address] Care Team Providers Care Financial Health Counselor Name Role Phone Elsewhere, Pcp Primary Care Provider Unavailabl e Reason for Visit * Reason Onset Date Comments Pre-visit Intake 09/28/2022 Encounter Details Date Type Department Care Team (Latest Contact Info) Description 09/28/2022 12:30 PM CDT Clinical Communication Virtual Review in [place], [place] 200 [place] [address] Pre-visit Intake Social History Tobacco [...] often do you attend chur ch or sikhism services? More than 4 times per year [...] Answer Date Recorded PHQ-2 Score 3 10/04/2018 [facility] of Occupat ional Health - Occupational Stress [...] or slept in a chcf (including now)? No 11/16/2021 Nutrition Answer Date [...] (Latest Contact Info) Description 07/05/2023 8:45 AM CAR CHECKER Clinical Communication Virtual Review in [address] [phone] 07/07/2023 7:20 AM CAR CHECKER Appointment Department of Laboratory Medicine and Pathology, [facility], in [place], [place] [address] [place] [address] Velma Munson APRN, C.N.P. [address] [place] [phone] 07/07/2023 9:30 AM CAR CHECKER Office Visit Division of Rheumatology in [place], [place] [address] [place] [phone] Velma Munson APRN, C.N.P. [address] [place] [phone] documented as of this encounter Visit Diagnoses Not on filedocumented in this encounter Additional Health Concerns Infection Onset Date Last Indicated Resolved Time Protective Environment 09/28/2022 09/28/2022 Assessment Noted Time PHQ-9 Depression Total Score: 15 018 1:00 PM CAR CHECKER documented as of this encounter Care Teams Financial Health Counselor Relationship Specialty Start Date End Date Elsewhere, Pcp PCP - General Internal Medicine 10/22/19 documented as of this encounter
--- OUTSIDE RECORDS SUMMARY | 2023-05-24 14:41 | XMS_ITS | Encounter Summary ---
Author Name Unknown Organization [facility] Address [address] [place] [address] Care Team Providers Care Toolroom Helper Name Role Phone Elsewhere, Pcp Primary Care Provider Unavailabl e Reason for Visit * Reason Onset Date Comments Med Question 07/13/2022 Encounter Details Date Type Department Care Team (Latest Contact Info) Description 07/13/2022 Clinical Communication Division of Gastroenterology in [place], [place] [address] [place] [address] Julián Edouard M.D. [address] [place] [address] Med Question Social History Tobacco Use Types [...] often do you attend chur ch or amish services? More than 4 times [...] Answer Date Recorded PHQ-2 Score 3 10/04/2018 [facility] - Occupational Stress Questionnaire Answer [...] or slept in a assisted (including now)? No 11/16/2021 Nutrition Answer Date [...] (Latest Contact Info) Description 07/05/2023 8:45 AM CAKE KNOCKER Clinical Communication Virtual Review in [place], [place] 200 [place] [address] 07/07/2023 7:20 AM CAKE KNOCKER Appointment Department of Laboratory Medicine and Pathology, [facility], in [place], [place] [address] [place] [phone] Velma Munson, STRAIGHT KNIFE CUTTER MACHINE, C.N.P. [address] [place] [phone] 07/07/2023 9:30 AM CAKE KNOCKER Office Visit Division of Rheumatology in [place], [place] [address] [place] [address] Velma Munson, LONG, C.N.P. [address] [place] [phone] documented as of this encounter Visit Diagnoses Not on filedocumented in this encounter Additional Health Concerns Assessment Noted Time PHQ-9 Depression Total Score: 15 04/21/ 018 1:00 PM CAKE KNOCKER documented as of this encounter Care Teams Toolroom Helper Relationship Specialty Start Date End Date Elsewhere, Pcp PCP - General Internal Medicine 10/22/19 documented as of this encounter
--- OUTSIDE RECORDS SUMMARY | 2023-05-24 14:41 | XMS_ITS | Clinical Summary ---
Author Name Unknown Organization [facility] Address [address] [place] [address] Care Team Providers Care Twisting Press Operator Name Role Phone Unavailable Primary Care Provider [...] for each transition of care or referral. [facility] Allergies Active Allergy Reactions Criticality Noted Date [...] needed for Anxiety. 0 Active aluminum-magnesium antacid-diphenhydr PDICY-lnpssfxfn-ro statin (MAGIC MOUTHWASH) suspension Swish and spit [...] MG tablet Take by mouth daily. 0 Active butalbital-acetami nophen-caffeine (FIORICET) 50-325-40 MG tablet Take 1 Tablet by mouth every 4 hours as needed for Pain. 0 Active omeprazole (PRILOSEC) 20 MG capsule Take 20 mg by mouth daily. Take 1 hour before a meal. 0 Active hydrOXYzine HCl (ATARAX) 25 MG tablet Take 25 mg by mouth three times a day as needed. 0 Active estradiol (ESTRACE) 0.1 MG/GM vaginal creamIndications:V aginal atrophy Place a dime size amount on your finger and place in vagina nightly. 42.5 g 3 05/21/2022 Active nitrofurantoin monohydrate macrocrystal (MACROBID) 100 MG capsuleIndications :Chronic UTI,Recurrent UTI Take 1 capsule by mouth 2 times daily for 7 days for self start bladder infection treatment. 14 Capsule 4 05/21/2022 4 Active Problems Problem Noted Date [...]
--- OUTSIDE RECORDS SUMMARY | 2023-05-24 14:41 | XMS_ITS | Encounter Summary ---
Author Name Unknown Organization [facility] Address [address] [place] [address] Care Team Providers Care Director Day Care Center Name Role Phone Elsewhere, Pcp Primary Care Provider Unavailabl e Encounter Details Date Type Department Care Team (Late st Contact Info) Description 07/15/2022 Clinical Communication Division of Thoracic Surgery in [place], [place] [address] [place] [address] Gerardo Raphael M.D. [address] [place] [address] Social History Tobacco Use Types Packs/Day Years [...] any clubs o r organizations such as shinto groups, unions, fraternal [...] Answer Date Recorded PHQ-2 Score 3 10/04/2018 [facility] of Occupat ional Health - [...] (Latest Contact Info) Description 07/05/2023 8:45 AM THEATER TECHNICIAN Clinical Communication Virtual Review in [address] [address] 07/07/2023 7:20 AM THEATER TECHNICIAN Appointment Department of Laboratory Medicine and Pathology, [facility], in [address] [phone] Velma Munson APRN, C.N.P. [address] [place] [phone] 07/07/2023 9:30 AM THEATER TECHNICIAN Office Visit Division of Rheumatology in [address] [phone] Velma Munson APRN, C.N.P. [address] [place] [phone] documented as of this encounter Visit Diagnoses Not on filedocumented in this encounter Additional Health Concerns Assessment Noted Time PHQ-9 Depression Total Score: 15 018 1:00 PM THEATER TECHNICIAN documented as of this encounter Care Teams Director Day Care Center Relationship Specialty Start Date End Date Elsewhere, Pcp PCP - General Internal Medicine 10/22/19 documented as of this encounter
--- OUTSIDE RECORDS SUMMARY | 2023-05-24 14:41 | XMS_ITS | Encounter Summary ---
Author Name Unknown Organization [facility] Address [address] [place] [address] Care Team Providers Care Turn Out Worker Name Role Phone Elsewhere, Pcp Primary Care Provider Unavailabl e Reason for Referral * Outpatient (Routine) - Authorized Specialty Diagnoses / Procedures Referred By Contact Referred To Contact Gastroenterology and Hepatology Diagnoses na Gerardo Raphael M.D. [address] [place] [phone] Julián Edouard M.D. [address] [place] [phone] Referral ID Status Reason Start Date Expiration Date V isits Requested Visits Authorized [id number] Authorized 07/16/2022 07/15/2025 1 1 Encounter Details Date Type Department Care Team (Late st Contact Info) Description 07/16/2022 Orders Only Division of Thoracic Surgery in [place], [place] [address] [place] [phone] Haritha Naik R.N., C.M.S.R.N. [address] [place] [phone] Social History Tobacco Use Types Packs/Day Years [...] How often do you attend [facility] or denominational services? More than 4 times per year [...] Answer Date Recorded PHQ-2 Score 3 10/04/2018 [facility] of Occupat ional Health - [...] (Latest Contact Info) Description 07/05/2023 8:45 AM SLATER APPRENTICE Clinical Communication Virtual Review in [place], [place] [address] [place] [address] 07/07/2023 7:20 AM SLATER APPRENTICE Appointment Department of Laboratory Medicine and Pathology, [facility], in [place], [place] [address] [place] [phone] Velma Munson APRN, C.N.P. [address] [place] [phone] 07/07/2023 9:30 AM SLATER APPRENTICE Office Visit Division of Rheumatology in [place], [place] [address] [place] [phone] Velma Munson APRN, C.N.P. [address] [place] [phone] Scheduled Referrals Name Type Priority Associated Diagnoses Orde r Schedule Return to provider in another specialty Outpatient Referral Routine Expected: 07/16/2022 (Approximate), Expires: 10/17/2023 documented as of this encounter Visit Diagnoses Not on filedocumented in this encounter Additional Health Concerns Assessment Noted Time PHQ-9 Depression Total Score: 15 04/21/ 018 1:00 PM SLATER APPRENTICE documented as of this encounter Care Teams Turn Out Worker Relationship Specialty Start Date End Date Elsewhere, Pcp PCP - General Internal Medicine 10/22/19 documented as of this encounter
--- OUTSIDE RECORDS SUMMARY | 2023-05-24 14:41 | XMS_ITS | Encounter Summary ---
Author Name Unknown Organization [facility] Address [address] [place] [address] Care Team Providers Care Timber Sprinkler Name Role Phone Elsewhere, Pcp Primary Care Provider Unavailabl e Encounter Details Date Type Department Care Team (Late st Contact Info) Description 07/27/2022 Clinical Communication Division of Thoracic Surgery in [place], [place] [address] [place] [address] Gerardo Raphael M.D. [address] [place] [phone] Social History Tobacco Use Types Packs/Day Years [...] often do you attend chur ch or mu-ism services? More than 4 times per year 11/16/2021 Do you belong to any clubs o r organizations such as presybeterian groups, unions, fraternal [...] or slept in a retirement (including now)? No 11/16/2021 Nutrition Answer Date [...] (Latest Contact Info) Description 07/05/2023 8:45 AM BONE CRUSHER Clinical Communication Virtual Review in [place], [place] [address] [place] [address] 07/07/2023 7:20 AM BONE CRUSHER Appointment Department of Laboratory Medicine and Pathology, [facility], in [place], [place] [address] [place] [phone] Velma Munson, CONCESSION MANAGER, C.N.P. [address] [place] [phone] 07/07/2023 9:30 AM BONE CRUSHER Office Visit Division of Rheumatology in [place], [place] [address] [place] [phone] Velma Munson, LONG, C.N.P. [address] [place] [phone] documented as of this encounter Visit Diagnoses Not on filedocumented in this encounter Additional Health Concerns Assessment Noted Time PHQ-9 Depression Total Score: 15 018 1:00 PM BONE CRUSHER documented as of this encounter Care Teams Timber Sprinkler Relationship Specialty Start Date End Date Elsewhere, Pcp PCP - General Internal Medicine 10/22/19 documented as of this encounter
== END 2023-05-24 14:38 | disposition home or self-care (01) ==
LOC: NFLDREF 14:38
PROVIDERS: PCP Internal Medicine; Visit Provider Internal Medicine
DX: M32.9 Systemic lupus erythematosus, unspecified (principal)
CPT/HCPCS: 80053

== ENCOUNTER 2023-06-01 17:48 | Emergency (ER) | payer BC, SELFPAY ==
[2023-06-01 18:04] VITALS: BP 110/75; PULSE 97; RESP 18; TEMP 37.9; O2SAT 99; BMI 25.7
--- NOTE | 2023-06-01 18:57 | ED.GENADULT ---
HPI - General Adult General Date Seen: 06/01/23 Chief complaint: Diarrhea Stated complaint: Diarrhea Time Seen by Provider: 06/01/23 18:23 History of Present Illness HPI narrative: In this is a 52-year-old female with a complex past medical history including lupus, hiatal hernia with reflux esophagitis (recent surgical procedure to correct hiatal hernia ), previous gastric banding surgery, now removed, probable gastric emptying abnormality or gastroparesis ( has had workup through [facility] as well as Gastroenterology in [place] and apparently has a delayed gastric emptying study), also chronic trouble with intermittent diarrhea, who per returns to the ER today for re-evaluation of diarrhea associated weakness, lethargy. She had been seen in the ER on 05/11/2023. From that visit stool C diff culture was negative and stool culture was negative. I saw her for diarrhea on 05/12 (at that time stool culture results were not yet back) and put her on antibiotics (Cipro and Flagyl) for possible infection. She says while on the antibiotics her symptoms did get better. She was seen again in the ER on 05/17 for an ankle injury. Notes indicate that she saw her primary care provider, Dr. Rivas in clinic, 1 week ago on 05/24. According to his records she was going to see [facility] for colonoscopy on the following day (05/25). The patient reports that she was told by [facility] that the colonoscopy was normal. She is now scheduled for an upper endoscopy which is supposed to occur 2 days from now, on Tuesday. In the past, She has had workup through [facility] that is included endoscopy, recent surgery. She also has a surgeon and GI team in [place], in [place]. She apparently had upper GI scan a month or 2 ago in [place] that showed delayed gastric emptying. She has also had a colonoscopy that apparently was normal. She does have a history of lupus, but no documented history of inflammatory bowel disease. She says as of last week her diarrhea had largely gotten better (which she attributes to the antibiotics). However, since yesterday symptoms have recurred. She developed some abdominal gurgling, left-sided pain, and has had frequent episodes of watery, and no mucousy stool. Also body aches, joint aches, and myalgias. She says she has had at least 7 BMs today. She has been nauseous but not vomiting. She does not have a fever but she does have chills. She has now also developed a migraine headache(likely due to dehydration. Similar to other headaches. Not abrupt in onset or worst of life.) Related Data Home Medications Medication Instructions Recorded Confirmed methotrexate sodium (PF) 25 mg/mL 50 mg IM QWEEK 11/25/21 05/24/23 injection solution pantoprazole 40 mg tablet,delayed 40 mg PO BID 11/25/21 05/24/23 release folic acid 1 mg tablet 1 mg PO BID 07/26/22 05/24/23 hydroxychloroquine 200 mg tablet 200 - 400 mg PO .UD 07/26/22 05/24/23 levonorgestrel 21 mcg/24 hours (8 1 device intrauterine ONCE 07/26/22 05/24/23 yrs) 52 mg intrauterine device (Mirena) ondansetron 4 mg disintegrating 4 mg PO Q8H PRN 04/07/23 05/24/23 tablet Previous Rx's Medication Instructions Recorded hydroxyzine HCl 25 mg tablet 25 mg PO .As Needed PRN Headaches 10/15/22 #30 tabs tranexamic acid 650 mg tablet 650 mg PO DAILY Vitiligo #30 tabs 12/14/22 semaglutide 2 mg/dose (8 mg/3 mL) 2 mg (0.75 mL) subcut QWEEK 01/13/23 subcutaneous pen injector (Ozempic) Obesity #3 mL zhcnqgcahl-wpdrxwcmdjtqe-ndaoahmh 1 tab PO Q4-6H PRN pain #60 tabs 03/22/23 50 mg-325 mg-40 mg tablet dicyclomine 10 mg capsule 10 mg PO QID PRN abdominal pain 03/22/23 #60 caps galcanezumab-gnlm 120 mg/mL 240 mg (2 mL) subcut ONCE #2 mL 03/22/23 subcutaneous pen injector (Emgality Pen) sumatriptan succinate 6 mg/0.5 mL 6 mg (0.5 mL) subcut .As Needed as 03/22/23 subcutaneous pen injector needed PRN migraine headache #1 mL alprazolam 1 mg tablet 3 mg (3 x 1 mg) PO .HS anxiety #90 04/13/23 tabs potassium chloride 20 mEq 20 meq PO ONCE #30 tabs 04/13/23 tablet,extended release dextroamphetamine-amphetamine ER 15 mg PO DAILY #30 caps 04/20/23 15 mg 24hr capsule,extend release dextroamphetamine-amphetamine ER 30 mg PO DAILY #30 caps 04/20/23 30 mg 24hr capsule,extend release diphenoxylate-atropine 2.5 1 tab PO TID PRN diarrhea #30 tabs 05/10/23 mg-0.025 mg tablet (Lomotil) metronidazole 500 mg tablet 500 mg PO BID 7 days #14 tabs 05/12/23 vancomycin 125 mg capsule 125 mg PO QID #30 caps 05/12/23 (Vancocin) Allergies Allergy/AdvReac Type Severity Reaction Status Date / Time iodine Allergy Intermediate Fainting, Verified 05/24/23 14:20 sob hydrocodone Allergy Mild Itching Verified 05/24/23 14:20 adhesive Allergy Unknown Rash Verified 05/24/23 14:20 pecan nut Allergy Verified 05/24/23 14:20 [facility] Medical History Diarrhea ?R19.7 - Diarrhea, unspecified (ICD-10) Otitis media ?H66.90 - Otitis media, unspecified, unspecified ear (ICD-10) Sinusitis ?J32.9 - Chronic sinusitis, unspecified (ICD-10) Reflux esophagitis ?K21.00 - Gastro-esophageal reflux disease with esophagitis, without bleeding (ICD-10) Hypokalemia ?E87.6 - Hypokalemia (ICD-10) Abdominal pain ?R10.9 - Unspecified abdominal pain (ICD-10) Systemic lupus erythematosus ?M32.9 - Systemic lupus erythematosus, unspecified (ICD-10) Chloasma ?L81.1 - Chloasma (ICD-10) Headache ?R51.9 - Headache, unspecified (ICD-10) Obesity ?E66.9 - Obesity, unspecified (ICD-10) Complication of gastric band procedure (09/27/18) ?K95.09 - Other complications of gastric band procedure (ICD-10) Autoimmune disease ?M35.9 - Systemic involvement of connective tissue, unspecified (ICD-10) Surgical History History of umbilical hernia repair ?Z98.890 - Other specified postprocedural states (ICD-10) ?Z87.19 - Personal history of other diseases of the digestive system (ICD-10) History of tonsillectomy ?Z90.89 - Acquired absence of other organs (ICD-10) History of surgery on left wrist ?Z98.890 - Other specified postprocedural states (ICD-10) History of right knee surgery ?Z98.890 - Other specified postprocedural states (ICD-10) History of removal of laparoscopic gastric banding device (09/27/18) ?Z98.84 - Bariatric surgery status (ICD-10) History of reduction mammoplasty ?Z98.890 - Other specified postprocedural states (ICD-10) History of laparoscopic adjustable gastric banding (2006) ?Z98.84 - Bariatric surgery status (ICD-10) History of cholecystectomy ?Z90.49 - Acquired absence of other specified parts of digestive tract (ICD-10) History of abdominoplasty (2018) ?Z98.890 - Other specified postprocedural states (ICD-10) Social History Narrative: 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 Alert. Conversant. Looks run down, but is conversant and remembers me from previous visit. HENT: Head: Atraumatic. Nose: Nose normal. Mouth/Throat: Oral mucosa is clear but somewhat dry, not desiccated or cracked.. no trismus. Pharynx normal. No aphthous ulcers. Eyes: Conjunctivae normal. EOM normal. Pupils equal, round, and reactive to light. No scleral icterus. Neck: Normal range of motion. Neck supple. No tracheal deviation present. Cardiovascular: Normal rate, regular rhythm. No gallop. No friction rub. No murmur heard. Symmetric radial artery pulses Pulmonary/Chest: Effort normal. No stridor. No respiratory distress. No wheezes. No rales. No rhonchi . No tenderness. Abdominal: Soft. Bowel sounds normal. No distension. No mass. Left mid and left lower quadrant mild tenderness. No rebound. No guarding. No CVA tenderness. Musculoskeletal: RUE: Normal range of motion. No tenderness. No deformity LUE: Normal range of motion. No tenderness. No deformity RLE: Normal range of motion. No edema. No tenderness. No deformity LLE: Normal range of motion. No edema. No tenderness. No deformity Neurological: Alert and oriented to person, place, and time. Normal strength. CN II-VII intact. No sensory deficit. GCS eye subscore is 4. GCS verbal subscore is 5. GCS motor subscore is 6. Normal coordination Skin: Skin is warm and dry. No rash noted. No pallor. Normal capillary refill. Psychiatric: Normal mood. Flat affect. Const: Vital Signs, click to edit/add: Vital Signs - 24 hr 06/01/23 18:04 Temperature 100.2 F H Pulse Rate [Pulse Oximeter] 97 Respiratory Rate 18 Blood Pressure [Ri t Upper Arm] 110/75 Pulse Oximetry 99 Oxygen Delivery Me thod Room Air Course Vital Signs Vital signs: Initial Vital Signs Temperature 100.2 F H 06/01/23 18:04 Temperature Source Temporal Artery Scan 06/01/23 18:04 Pulse Rate 97 06/01/23 18:04 Respiratory Rate 18 06/01/23 18:04 Blood Pressure 110/75 06/01/23 18:04 Blood Pressure Mean 86 06/01/23 18:04 Pulse Oximetry 99 06/01/23 18:04 Oxygen Delivery Method Room Air 06/01/23 18:04 Vital Signs Temperature 100.2 F H 06/01/23 18:04 Pulse Rate 97 06/01/23 18:04 Respiratory Rate 18 06/01/23 18:04 Blood Pressure 110/75 06/01/23 18:04 Pulse Oximetry 99 06/01/23 18:04 Oxygen Delivery Method Room Air 06/01/23 18:04 Temperature 100.2 F H 06/01/23 18:04 Pulse Rate 97 06/01/23 18:04 Respiratory Rate 18 06/01/23 18:04 Blood Pressure 110/75 06/01/23 18:04 Pulse Oximetry 99 06/01/23 18:04 Oxygen Delivery Method Room Air 06/01/23 18:04 Medications Administered Medications: Generic Name Dose Route Start Last Admin Trade Name Flory PRN Reason Stop Dose Admin Diphenhydramine HCl 25 mg 06/01/23 20:27 06/01/23 20:45 Diphenhydramine 50 Mg/Ml Inj IVP 06/01/23 20:28 25 mg ONCE ONE Administration Sodium Chloride 1,000 mls @ 1,000 mls/hr 06/01/23 19:15 06/01/23 19:35 0.9 % Sodium Chloride 1000 Ml IV 06/01/23 20:14 1,000 mls/hr .Q1H JEREMI Administration Ketorolac Tromethamine 15 mg 06/01/23 19:15 06/01/23 19:35 Ketorolac 15 Mg/Ml Inj IVP 06/01/23 19:16 15 mg ONCE ONE Administration Metoclopramide HCl 10 mg 06/01/23 20:27 06/01/23 20:45 Metoclopramide Hcl 5 Mg/Ml Inj IVP 06/01/23 20:28 10 mg ONCE ONE Administration Potassium Bicarbonate 25 meq 06/01/23 20:27 06/01/23 20:45 Potassium Bicarb 25 Meq Effervescent Tab PO 06/01/23 20:28 25 meq ONCE ONE Administration Medical Decision Making MDM Narrative Medical decision making narrative: This patient presents with multiple episodes of mucousy, watery diarrhea today. Patient has intermittent diarrhea off and on for quite some time. I had seen her a few weeks ago and put her on antibiotics for colitis with apparent interval resolution of symptoms. However, stool Cx and C diff test were negative from that episode. Colonoscopy done at [facility] last week was apparently normal. She has recurrent diarrhea beginning last night and again through today. C diff testing was negative on 05/11. Stool culture was negative on 05/11. Apparently had no sign of inflammatory bowel disease on colonoscopy last week. No recent travel or high risk exposure for baceraial pathogen. Given recent antibiotics, concern would be for possible development of C diff and or recurrent of some unusual pathogen causing her diarrhea. She does have mild left lower quadrant tenderness today, but on my exam I don't see any evidence for appendicitis, , toxic megacolon, bowel obstruction, abscess, bowel perforation, or other surgical emergency. Metabolic profile shows hypokalemia but no acute renal injury. Liver function tests are normal today. They had been abnormal on the and , but are now resolved. One of her other concerns today was that she developed a headache. She describes it as 1 of her migraines and is likely triggered by her diarrhea and dehydration. Not much response to Toradol. After additional Reglan and Benadryl given the patient is feeling better. She does have a history of lupus and immunosuppression. Based on clinical presentation, I do not think she needs further workup with advanced imaging or lumbar puncture for her headache at this time. Hypokalemia supplemented orally here in the ER. Diarrhea seems to have stopped while here in the ER. She is not able to provide a stool sample. At this point, the patient is non-septic appearing and well hydrated.I think the patient can be managed as an outpatient. Will have the patient bring back an outpatient stool sample to check for C diff or other infections. At this point would hold off on a repeat course of empiric antibiotics, pending stool studies. She has an appointment to see her GI doctor on Tuesday. Encouraged to keep that appointment. We have discussed oral rehydration strategies. They understand and can perform the needed interventions at home. We have discussed the signs and symptoms of worsening dehydration or worsening symptom. They understand the need for immediate reevaluation if any of these symptoms occur. They are also directed to obtain close outpatient follow up within 2 days, on Tuesday, at [facility]. Lab Data Labs: Lab Results 06/01/23 Range/Units 19:39 WBC 11.78 H (4.50-11.00) K/uL RBC 5.02 (4.00-5.20) m/uL Hgb 14.2 (12.0-16.0) gm/dL Hct 43.6 (33.0-51.0) % MCV 87 (80-100) fL MCH 28 (26-34) pg MCHC 33 (32-36) gm/dL RDW Coeff of Juan M 13.5 (11.5-15.5) % Plt Count 248 (140-440) K/uL Neut % (Auto) 80.5 H (42.0-72.0) % Lymph % (Auto) 11.3 L (20-44) % [place] % (Auto) 7.6 (0.0-11.0) % Eos % (Auto) 0.3 (0.0-7.0) % Baso % (Auto) 0.2 (0.0-3.0) % Neut # (Auto) 9.50 H (1.7-7.0) K/uL Lymph # (Auto) 1.30 (0.90-2.90) K/uL [place] # (Auto) 0.90 (0.00-0.90) K/UL Eos # (Auto) 0.00 (0.00-0.50) K/uL Baso # (Auto) 0.00 (0.00-0.30) K/uL Abs Immat Gran (auto) 0.00 (0.00-0.30) K/uL Imm/Tot Granulo (auto) 0.1 % Sodium 137 (135-149) mmol/L Potassium 3.3 L (3.6-5.1) mmol/L Chloride 103 (96-114) mmol/L Carbon Dioxide 26 (20-32) mmol/L Anion Gap 8 (7-15) mEq/L BUN 11 (7-30) mg/dL Creatinine 0.7 (0.5-1.5) mg/dL Estimated Creat Clear 78.65 Estimated GFR 105 ml/min Glucose 107 (60-115) mg/dL Calcium 8.7 (8.4-10.6) mg/dL Total Bilirubin 0.6 (0.1-1.5) mg/dL AST 22 (12-35) U/L ALT 17 (4-35) U/L Alkaline Phosphatase 107 (40-150) U/L Total Protein 7.2 (6.0-8.3) g/dL Albumin 4.3 (3.3-5.0) g/dL Discharge Plan Discharge Clinical Impression: Diarrhea, Headache, Acute hypokalemia Prescriptions: No Action methotrexate sodium (PF) 25 mg/mL solution 50 mg IM QWEEK pantoprazole 40 mg tablet,delayed release (DR/EC) 40 mg PO BID folic acid 1 mg tablet 1 mg PO BID hydroxychloroquine 200 mg tablet 200 - 400 mg PO .UD Rx Instructions: Alternates every other day between 200 and 400mg. Mirena 21 mcg/24 hours (8 yrs) 52 mg intrauterine device 1 device intrauterine ONCE Rx Instructions: as a single dose dicyclomine 10 mg capsule 10 mg PO QID PRN (Reason: abdominal pain) Qty: 60 0RF Emgality Pen 120 mg/mL pen injector 240 mg subcut ONCE Qty: 2 0RF Rx Instructions: as a single dose; administer as two 120 mg injections at separate sites sumatriptan succinate 6 mg/0.5 mL pen injector 6 mg subcut .As Needed as needed PRN (Reason: migraine headache) Qty: 1 3RF Rx Instructions: 3 boxes with 3 refills. bpuhcacccf-nnjitxpvmqjsq-elkm 50-325-40 mg tablet 1 tab PO Q4-6H PRN (Reason: pain) Qty: 60 0RF dextroamphetamine-amphetamine 15 mg capsule,extended release 24hr 15 mg PO DAILY Qty: 30 0RF dextroamphetamine-amphetamine 30 mg capsule,extended release 24hr 30 mg PO DAILY Qty: 30 0RF diphenoxylate-atropine [Lomotil] 2.5-0.025 mg tablet 1 tab PO TID PRN (Reason: diarrhea) Qty: 30 0RF ondansetron 4 mg tablet,disintegrating 4 mg PO Q8H PRN potassium chloride 20 mEq tablet extended release 20 meq PO ONCE Qty: 30 3RF alprazolam 1 mg tablet 3 mg PO .HS Qty: 90 0RF vancomycin [Vancocin] 125 mg capsule 125 mg PO QID Qty: 30 0RF metronidazole 500 mg tablet 500 mg PO BID 7 Days Qty: 14 0RF hydroxyzine HCl 25 mg tablet 25 mg PO .As Needed PRN (Reason: Headaches) Qty: 30 2RF tranexamic acid 650 mg tablet 650 mg PO DAILY Qty: 30 0RF Ozempic 2 mg/dose (8 mg/3 mL) pen injector 2 mg subcut QWEEK Qty: 3 0RF Follow Up/Referrals: Taran Rivas MD [Primary Care Provider] -
--- OUTSIDE RECORDS SUMMARY | 2023-06-01 19:28 | XMS_ITS | Clinical Summary ---
Author Name Unknown Organization [facility] Address [place], [place] [address] Care Team Providers Care Cracking Machine Operator Name Role Phone Katerina Contreras Unavailable Rohan [...] nasal solution (FLONASE)Indicati ons:Sinus pressure Inhale 1 [place] into both nostrils once daily. 1 Bottle [...] tablet lorazepam 1 mg tablet 0 Act rosabla nitrofurantoin macrocrystaL (MACRODANTIN) 50 mg capsuleIndication s:Recurrent [...] dise ase (HC). Has seen Rheumatology at [facility]. 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 Lesion of [...] age to complete this topic Care Teams Cracking Machine Operator Relationship Specialty Start Date End Date Pcp, No . PCP - General 02/28/19 Katerina Contreras Cabin Crew 07/21/16
--- OUTSIDE RECORDS SUMMARY | 2023-06-01 19:29 | XMS_ITS | Encounter Summary ---
Author Name Unknown Organization [facility] Address [address] [place] [address] Care Team Providers Care Final Assembly And Packing Supervisor Name Role Phone Elsewhere, Pcp Primary Care Provider Unavailabl e Encounter Details Date Type Department Care Team (Latest Contact Info) Description 02/28/2023 Clinical Communication Division of Gastroenterology in [place], [place] [address] [place] [phone] Julián Edouard M.D. [address] [place] [phone] Social History Tobacco Use Types Packs/Day Years [...] often do you attend chur ch or baptism services? More than 4 times [...] Answer Date Recorded PHQ-2 Score 3 10/04/2018 [facility] [place] [facility] - Occupational Stress [...] (Latest Contact Info) Description 07/05/2023 8:45 AM FREIGHT SEPARATOR Clinical Communication Virtual Review in [place], [place] [address] [place] [address] 07/07/2023 7:20 AM FREIGHT SEPARATOR Appointment Department of Laboratory Medicine and Pathology, [facility], in [place], [place] [address] [place] [phone] Velma Munson, CHASSIS ENGINEER, C.N.P. [address] [place] [phone] 07/07/2023 9:30 AM FREIGHT SEPARATOR Office Visit Division of Rheumatology in [place], [place] [address] [place] [phone] Velma Munson, LONG, C.N.P. [address] [place] [phone] documented as of this encounter Visit Diagnoses Not on filedocumented in this encounter Additional Health Concerns Infection Onset Date Last Indicated Resolved Time Protective Environment 09/28/2022 09/28/2022 Assessment Noted Time PHQ-9 Depression Total Score: 15 018 1:00 PM FREIGHT SEPARATOR documented as of this encounter Care Teams Final Assembly And Packing Supervisor Relationship Specialty Start Date End Date Elsewhere, Pcp PCP - General Internal Medicine 10/22/19 documented as of this encounter
--- OUTSIDE RECORDS SUMMARY | 2023-06-01 19:29 | XMS_ITS | Encounter Summary ---
Author Name Unknown Organization [facility] Address [address] [place] [address] Care Team Providers Care Sprinkler Fitter Apprentice Name Role Phone Elsewhere, Pcp Primary Care Provider Unavailabl e Reason for Referral * Outpatient (Routine) - Authorized Specialty Diagnoses / Procedures Referred By Contac t Referred To Contact Rheumatology Diagnoses . Velma Munson APRN, C.N.P. [address] [place] [phone] [facility] Referral ID Status Reason Start Date Expiration Date V isits Requested Visits Authorized [id number] Authorized 09/30/2022 09/29/2025 1 1 Reason for Visit * Outpatient (Routine) - Closed Specialty Diagnoses / Procedures Referred By Contac t Referred To Contact Rheumatology Diagnoses na Velma Munson APRN, C.N.P. [address] [place] [phone] [facility] Referral ID Status Reason Start Date Expiration Date Visits Re quested Visits Authorized [id number] Closed 11/17/2021 11/17/2022 1 1 Encounter Details Date Type Department Care Team (Latest Contact Info) Description 09/30/2022 10:30 AM CDT Office Visit Division of Rheumatology in [place], [place] [address] [place] [phone] Velma Munson APRN, C.N.P. [address] [place] [phone] Arthritis Inflammatory (HCC) (Primary Dx); Xerostomia Social [...] any clubs o r organizations such as oriental orthodox groups, unions, [...] Answer Date Recorded PHQ-2 Score 3 10/04/2018 [facility] of Occupat ional [facility] - Occupational Stress Questionnaire Answer Date Recorded [...] global assessment (0-100) 60 4 50 77 Redrying Machine Operator global assessment (0-100) 30 20 30 50 ESR (mm/h) 17 -- -- 5 CRP (mg/L) 4.8 -- -- 5.1 Disease Activity Score 28 using ESR ([id number]) 3.62 -- -- 3.28 Disease Activity Score 28 using CRP ([id number]) 3.22 -- -- 3.76 Clinical Disease Activity [...] laboratory slip to do labs locally in [place]. I will follow up with her in 6 months. I answered the patients questions to the best of my ability. The patient seemed pleased with our interaction. If she should have any additional questions or concerns. [facility] ' documented in this encounter Plan of Treatment Upcoming Encounters Date Type Department Care Team (Latest Contact Info) Description 07/05/2023 8:45 AM DIRECTOR REACTOR PROJECTS Clinical Communication Virtual Review in [place], [place] [address] [place] [address] 07/07/2023 7:20 AM DIRECTOR REACTOR PROJECTS Appointment Department of Laboratory Medicine and Pathology, [facility], in [address] [phone] Velma Munson APRN, C.N.P. [address] [place] [phone] 07/07/2023 9:30 AM DIRECTOR REACTOR PROJECTS Office Visit Division of Rheumatology in [place], [place] [address] [place] [phone] Velma Munson, LONG, C.N.P. [address] [place] [address] Scheduled Orders Name Type Priority Associated Diagnoses [...] Depression Total Score: 15 018 1:00 PM DIRECTOR REACTOR PROJECTS documented as of this encounter Care Teams Sprinkler Fitter Apprentice Relationship Specialty Start Date End Date Elsewhere, Pcp PCP - General Internal Medicine 10/22/19 documented as of this encounter
--- OUTSIDE RECORDS SUMMARY | 2023-06-01 19:29 | XMS_ITS | Encounter Summary ---
Author Name Unknown Organization [facility] Address [address] [place] [address] Care Team Providers Care Wireless Sales Representative Name Role Phone Elsewhere, Pcp Primary Care Provider Unavailabl e Encounter Details Date Type Department Care Team (Latest Contact Info) Description 09/30/2022 8:20 AM CDT - 09/30/2022 11:59 PM CDT Hospital Encounter Department of Laboratory Medicine and Pathology, [facility] in [place], [place] [address] [place] [address] Velma Munson, LONG, C.N.P. [address] [place] [address] Arthritis Inflammatory (HCC) Discharge Disposition: Home or [...] How often do you attend chur or mormon services? More than 4 times per year [...] Answer Date Recorded PHQ-2 Score 3 10/04/2018 [facility] - Occupational Stress Questionnaire Answer Date [...] a [place] [facility] [place] facility (including now)? No 11/16/2021 Nutrition Answer Date [...] (Latest Contact Info) Description 07/05/2023 8:45 AM SECURITY PROFESSIONAL Clinical Communication Virtual Review in [place], [place] 200 [place] [address] 07/07/2023 7:20 AM SECURITY PROFESSIONAL Appointment Department of Laboratory Medicine and Pathology, [facility], in [place], [place] [address] [place] [phone] Velma Munson APRN, C.N.P. [address] [place] [phone] 07/07/2023 9:30 AM SECURITY PROFESSIONAL Office Visit Division of Rheumatology in [place], [place] [address] [place] [phone] Velma Munson APRN, C.N.P. [address] [place] [phone] documented as of this encounter Procedures Procedure [...] Velma Munson APRN, C.N.P. LAB BLOOD ADD-ON [facility] [address] [place] [address], [facility] [address] [place] [address] * Creatinine with Estimated GFR (09/30/2022 8:57 AM CDT) Creatinine 0.90 0.59 - 1.04 mg/dL 09/30/2022 10:06 AM CDT DT Estimated GFR (eGFR) 78 >=60 mL/min/BSA 09/30/2022 10:06 AM CDT DTL Comment: Estimated GFR calculated using the 2020 CKD_EPI creatinine equation. Blood (Blood, Venous) 09/30/2022 8:57 AM CDT 09/30/2022 9:33 AM CDT Velma Munson APRN, C.N.P. LAB BLOOD ADD-ON [facility] [address] [place] [address], [facility] [address] [place] [address] * (ABNORMAL) CRP (C-Reactive Protein) (09/30/2022 8:57 AM CDT) C-Reactive Protein (CRP), S 5.1(H) <5.0 mg/L 09/30/2022 10:06 AM CDT DT Blood (Blood, Venous) 09/30/2022 8:57 AM CDT 09/30/2022 9:33 AM CDT Velma Munson APRN, C.N.P. LAB BLOOD ADD-ON [facility] [address] [place] [address], [facility] [address] [place] [address] * Sedimentation Rate (09/30/2022 8:57 AM CDT) Sedimentation Rate, B 5 2 - 20 mm/h 09/30/2022 10:37 AM CDT DTL Blood (Blood, Venous) 09/30/2022 8:57 AM CDT 09/30/2022 9:18 AM CDT Velma Lana Munson APRN C.N.PLennox LAB BLOOD ADD-ON [facility] [address] [place] [address], [facility] [address] [place] [address] * (ABNORMAL) CBC with Differential, Blood (09/30/2022 [...] Velma Munson APRN, C.N.P. LAB BLOOD ADD-ON [facility] [address] [place] [address], [facility] 200 [place] [address] documented in this encounter Visit Diagnoses Diagnosis Arthritis Inflammatory (HCC) documented in this encounter Additional Health Concerns Infection Onset Date Last Indicated Resolved Time Protective Environment 09/28/2022 09/28/2022 Assessment Noted Time PHQ-9 Depression Total Score: 15 018 1:00 PM SECURITY PROFESSIONAL documented as of this encounter Care Teams Wireless Sales Representative Relationship Specialty Start Date End Date Elsewhere, Pcp PCP - General Internal Medicine 10/22/19 documented as of this encounter
--- OUTSIDE RECORDS SUMMARY | 2023-06-01 19:29 | XMS_ITS | Encounter Summary ---
Author Name Unknown Organization [facility] Address [address] [place] [address] Care Team Providers Care Station Usher Name Role Phone Elsewhere, Pcp Primary Care Provider Unavailabl e Encounter Details Date Type Department Care Team (Late st Contact Info) Description 02/13/2023 E-Visit Division of Rheumatology in [place], [place] [address] [place] [phone] Velma Munson, RATTLE LEAK AND SQUEAK REPAIRER, C.N.P. [address] [place] [phone] RA/Autoimmune Social History Tobacco Use Types Packs/Day [...] How often do you attend chur or scientology services? More than 4 times per year 11/16/2021 Do you belong to any clubs o r organizations such as scientology groups, unions, fraternal [...] Answer Date Recorded PHQ-2 Score 3 10/04/2018 [facility] - [facility]ational Stress Questionnaire [...] (Latest Contact Info) Description 07/05/2023 8:45 AM SALON SUPERVISOR Clinical Communication Virtual Review in [place], [place] 200 [place] [address] 07/07/2023 7:20 AM SALON SUPERVISOR Appointment Department of Laboratory Medicine and Pathology, [facility], in [place], [place] [address] [place] [phone] Velma Munson APRN, C.N.P. [address] [place] [phone] 07/07/2023 9:30 AM SALON SUPERVISOR Office Visit Division of Rheumatology in [place], [place] [address] [place] [phone] Velma Munson APRN, C.N.P. [address] [place] [phone] documented as of this encounter Visit Diagnoses Diagnosis Arthritis Inflammatory (HCC)- Primary documented in this encounter Additional Health Concerns Infection Onset Date Last Indicated Resolved Time Protective Environment 09/28/2022 09/28/2022 Assessment Noted Time PHQ-9 Depression Total Score: 15 018 1:00 PM SALON SUPERVISOR documented as of this encounter Care Teams Station Usher Relationship Specialty Start Date End Date Elsewhere, Pcp PCP - General Internal Medicine 10/22/19 documented as of this encounter
--- OUTSIDE RECORDS SUMMARY | 2023-06-01 19:29 | XMS_ITS | Referral Summary ---
Author Name Unknown Organization [facility] Address [address] [place] [address] Care Team Providers Care City Auditor Name Role Phone Elsewhere, Pcp Primary Care Provider Unavailabl e Source Comments Patient records contain information from all sites at [facility]. For routine questions regarding patient records, call [phone] during business hours, M-F 8:00 AM - 5:00 PM Central Time. Record requests for emergency care only can be directed to [phone] at any time.[facility] Allergies Active Allergy Reactions Criticality Noted Date [...] Test 02/23/2021,02/16/2021 SARS-COV-2 (COVID-19) - PFIZ ER (Discontinued)(12 years or older) 05/15/2020,04/24/2020 SARS-COV-2 (COVID-19) - PFIZ ER TS(Discontinued)(12 years or older) 11/13/2021,08/06/2021 Tdap 07/18/2021,07/11/2014 influenza [...] often do you attend chur ch or jehovah's witness services? More than 4 times per year [...] Answer Date Recorded PHQ-2 Score 3 10/04/2018 [facility] of Occupat ional Health - Occupational [...] (Latest Contact Info) Description 07/05/2023 8:45 AM SENIOR PUBLICATIONS SPECIALIST Clinical Communication Virtual Review in [place], [place] [address] [place] [address] 07/07/2023 7:20 AM SENIOR PUBLICATIONS SPECIALIST Appointment Department of Laboratory Medicine and Pathology, [facility], in [place], [place] [address] [place] [phone] Velma Munson APRN, C.N.P. [address] [place] [phone] 07/07/2023 9:30 AM SENIOR PUBLICATIONS SPECIALIST Office Visit Division of Rheumatology in [place], [place] [address] [place] [phone] Velma Munson APRN, C.N.P. [address] [place] [phone] Medical Devices Implanted Type Area Frit Burner Device Identifier Shelf Expiration Date Model / Serial / Lot Intrauterine Device Intrauterine Device Uterus Description:IUD Mirena Conversions - Default Historical Implant Device Implanted:05/04 (Quantity not on file) Misc Other Abdomen Description:Body Location - Abdominal. Device Status Text - MiscOther. lapband. Additional Health Concerns Infection Onset Date Last Indicated Protective Environment 09/28/2022 3 Care Teams City Auditor Relationship Specialty Start Date End Date Elsewhere, Pcp PCP - General Internal Medicine 10/22/19
--- OUTSIDE RECORDS SUMMARY | 2023-06-01 19:29 | XMS_ITS | Encounter Summary ---
Author Name Unknown Organization [facility] Address [address] [place] [address] Care Team Providers Care Clamp Remover Name Role Phone Elsewhere, Pcp Primary Care Provider Unavailabl e Reason for Referral * Outpatient (Routine) - Authorized Specialty Diagnoses / Procedures Referred By Contact Referred To Contact Gastroenterology and Hepatology Diagnoses na Gerardo Raphael M.D. [address] [place] [phone] Julián Edouard M.D. [address] [place] [phone] Referral ID Status Reason Start Date Expiration Date V isits Requested Visits Authorized [id number] Authorized 07/16/2022 07/15/2025 1 1 Encounter Details Date Type Department Care Team (Late st Contact Info) Description 07/16/2022 Orders Only Division of Thoracic Surgery in [place], [place] [address] [place] [phone] Haritha Naik R.N., C.M.S.R.N. [address] [place] [phone] Social History Tobacco Use Types Packs/Day Years [...] Never 11/16/2021 How often do you attend [facility] or evangelical services? More than 4 times [...] Answer Date Recorded PHQ-2 Score 3 10/04/2018 [facility] of Occupat ional Health - Occupational Stress [...] (Latest Contact Info) Description 07/05/2023 8:45 AM TIE MAKER Clinical Communication Virtual Review in [place], [place] [address] [place] [address] 07/07/2023 7:20 AM TIE MAKER Appointment Department of Laboratory Medicine and Pathology, [facility], in [place], [place] [address] [place] [phone] Velma Munson APRN, C.N.P. [address] [place] [phone] 07/07/2023 9:30 AM TIE MAKER Office Visit Division of Rheumatology in [place], [place] [address] [place] [phone] Velma Munson APRN, C.N.P. [address] [place] [phone] Scheduled Referrals Name Type Priority Associated Diagnoses Orde r Schedule Return to provider in another specialty Outpatient Referral Routine Expected: 07/16/2022 (Approximate), Expires: 10/17/2023 documented as of this encounter Visit Diagnoses Not on filedocumented in this encounter Additional Health Concerns Assessment Noted Time PHQ-9 Depression Total Score: 15 04/21/ 018 1:00 PM TIE MAKER documented as of this encounter Care Teams Clamp Remover Relationship Specialty Start Date End Date Elsewhere, Pcp PCP - General Internal Medicine 10/22/19 documented as of this encounter
--- OUTSIDE RECORDS SUMMARY | 2023-06-01 19:29 | XMS_ITS | Clinical Summary ---
Author Name Unknown Organization [facility] Address [address] [place] [address] Care Team Providers Care Parent Educator Name Role Phone Elsewhere, Pcp Primary Care Provider Unavailabl e Source Comments Patient records contain information from all sites at [facility]. For routine questions regarding patient records, call [phone] during business hours, M-F 8:00 AM - 5:00 PM Central Time. Record requests for emergency care only can be directed to [phone] at any time.[facility] Allergies Active Allergy Reactions Criticality Noted [...] bah Coronary artery disease Maternal Grandfather reagan ted roblero Diabetes Maternal Grandfather reagan bah Hypertension Maternal Grandfather reagan bah Arthritis Maternal Grandmother jose e bah Hypertension Maternal Grandmother jose e bah Migraines Maternal Grandmother jose e bah Stroke Maternal Grandmother jose e bah Transient ischemic attack Maternal Grandmother jose e g onzales Hyperlipidemia Mother apple jose Hypertension Mother apple jose Migraines Mother apple jose Sleep apnea Mother apple jose Thyroid disease Mother apple jose Diabetes Paternal Grandfather nichole zaragosa Hypertension Paternal Grandfather nichole zaragosa Sleep apnea Paternal Grandfather nichole zaragosa Arthritis Paternal Grandmother hope zaragosa Diabetes Paternal Grandmother hope zaragosa Hypertension Paternal Grandmother hope zaragosa Asthma Sister madisyn lottie Relation Name Status Comments Father nichole velasquez [...] How often do you attend chur or protestant services? More than 4 times per year 11/16/2021 Do you belong to any clubs o r organizations such as druze groups, unions, fraternal [...] Answer Date Recorded PHQ-2 Score 3 10/04/2018 [facility] of Occupat ional Health - Occupational [...] (Latest Contact Info) Description 07/05/2023 8:45 AM FITNESS MANAGEMENT DIRECTOR Clinical Communication Virtual Review in [place], [place] 200 [place] [address] 07/07/2023 7:20 AM FITNESS MANAGEMENT DIRECTOR Appointment Department of Laboratory Medicine and Pathology, [facility], in [place], [place] [address] [place] [phone] Velma Munson APRN, C.N.P. [address] [place] [phone] 07/07/2023 9:30 AM FITNESS MANAGEMENT DIRECTOR Office Visit Division of Rheumatology in [place], [place] [address] [place] [phone] Velma Munson APRN, C.N.P. [address] [place] [address] Health Maintenance Due Date Last Done Comments CT Colonography 1971 Cologuard 1971 Depression Monitoring (PHQ-9) 1971 FIT 1971 Fasting Glucose for Diabetes Screening 1971 HIV Screening 1971 Lipid (Cholesterol) Screening 1971 Hydroxychloroquine (PLAQUENI L) Baseline Exam 01/25/2018 Mammogram 01/30/2018 01/30/2017 (Perf ormed elsewhere), 01/30/2016, 2014 (Performed elsewhere), Additional history exists COVID-19 Vaccine (2022-2 4 season) 2022 11/13/2021, [...] this topic Medical Devices Implanted Type Area Core Baker Device Identifier Shelf Expiration Date Model / Serial / Lot Intrauterine Device Intrauterine Device Uterus Description:IUD Mirena Conversions - Default Historical Implant Device Implanted:05/04 (Quantity not on file) Misc Other Abdomen Description:Body Location - Abdominal. Device Status Text - MiscOther. lapband. Additional Health Concerns Infection Onset Date Last Indicated Protective Environment 09/28/2022 05/30/202 3 Care Teams Parent Educator Relationship Specialty Start Date End Date Elsewhere, Pcp PCP - General Internal Medicine 10/22/19
--- OUTSIDE RECORDS SUMMARY | 2023-06-01 19:29 | XMS_ITS | Encounter Summary ---
Author Name Unknown Organization [facility] Address [address] [place] [address] Care Team Providers Care Commercial Makeup Artist Name Role Phone Elsewhere, Pcp Primary Care Provider Unavailabl e Reason for Visit * Reason Comments Med Refill Encounter Details Date Type Department Care Team (Late st Contact Info) Description 01/27/2023 Refill Division of Gastroenterology in [place], [place] [address] [place] [phone] Julián Edouard M.D. [address] [place] [phone] Med Refill Social History Tobacco Use Types [...] Answer Date Recorded PHQ-2 Score 3 10/04/2018 [facility] - Occupational Stress Questionnaire Answer Date [...] (Latest Contact Info) Description 07/05/2023 8:45 AM OCCUPATIONAL HEALTH NURSE Clinical Communication Virtual Review in [place], [place] 200 [place] [address] 07/07/2023 7:20 AM OCCUPATIONAL HEALTH NURSE Appointment Department of Laboratory Medicine and Pathology, [facility], in [place], [place] [address] [place] [phone] Velma Munson, LONG, C.N.P. [address] [place] [phone] 07/07/2023 9:30 AM OCCUPATIONAL HEALTH NURSE Office Visit Division of Rheumatology in [place], [place] [address] [place] [phone] Velma Munson, LONG, C.N.P. [address] [place] [phone] documented as of this encounter Visit Diagnoses Not on filedocumented in this encounter Additional Health Concerns Infection Onset Date Last Indicated Resolved Time Protective Environment 09/28/2022 09/28/2022 Assessment Noted Time PHQ-9 Depression Total Score: 15 018 1:00 PM OCCUPATIONAL HEALTH NURSE documented as of this encounter Care Teams Commercial Makeup Artist Relationship Specialty Start Date End Date Elsewhere, Pcp PCP - General Internal Medicine 10/22/19 documented as of this encounter
--- OUTSIDE RECORDS SUMMARY | 2023-06-01 19:29 | XMS_ITS | Encounter Summary ---
Author Name Unknown Organization [facility] Address [address] [place] [address] Care Team Providers Care Postdoctoral Fellow Name Role Phone Elsewhere, Pcp Primary Care Provider Unavailabl e Encounter Details Date Type Department Care Team (Late st Contact Info) Description 07/15/2022 Clinical Communication Division of Thoracic Surgery in [place], [place] [address] [place] [phone] Gerardo Raphael M.D. [address] [place] [phone] Social History Tobacco Use Types Packs/Day Years [...] often do you attend chur ch or roman catholic services? More than 4 times per year 11/16/2021 Do you belong to any clubs o r organizations such as confucianism groups, unions, fraternal [...] Answer Date Recorded PHQ-2 Score 3 10/04/2018 [facility] of Occupat ional Health - Occupational Stress [...] (Latest Contact Info) Description 07/05/2023 8:45 AM CRUCIBLE FURNACE TENDER Clinical Communication Virtual Review in [address] [address] 07/07/2023 7:20 AM CRUCIBLE FURNACE TENDER Appointment Department of Laboratory Medicine and Pathology, [facility], in [address] [phone] Velma Munson APRN, C.N.P. [address] [place] [phone] 07/07/2023 9:30 AM CRUCIBLE FURNACE TENDER Office Visit Division of Rheumatology in [address] [phone] Velma Munson APRN, C.N.P. [address] [place] [phone] documented as of this encounter Visit Diagnoses Not on filedocumented in this encounter Additional Health Concerns Assessment Noted Time PHQ-9 Depression Total Score: 15 018 1:00 PM CRUCIBLE FURNACE TENDER documented as of this encounter Care Teams Postdoctoral Fellow Relationship Specialty Start Date End Date Elsewhere, Pcp PCP - General Internal Medicine 10/22/19 documented as of this encounter
--- OUTSIDE RECORDS SUMMARY | 2023-06-01 19:29 | XMS_ITS | Encounter Summary ---
Author Name Unknown Organization [facility] Address [address] [place] [address] Care Team Providers Care Dinkey Dispatcher Name Role Phone Elsewhere, Pcp Primary Care Provider Unavailabl e Encounter Details Date Type Department Care Team (Late st Contact Info) Description 07/27/2022 Clinical Communication Division of Thoracic Surgery in [place], [place] [address] [place] [phone] Gerardo Raphael M.D. [address] [place] [phone] Social History Tobacco Use Types Packs/Day Years [...] often do you attend chur ch or adventist services? More than 4 times per year 11/16/2021 Do you belong to any clubs o r organizations such as jainism groups, unions, fraternal [...] Date Recorded PHQ-2 Score 3 10/04/2018 [facility] - Occupational [...] or slept in a longterm (including now)? No 11/16/2021 Nutrition Answer Date [...] (Latest Contact Info) Description 07/05/2023 8:45 AM INDUSTRIAL ARTS PUBLIC SCHOOL TEACHER Clinical Communication Virtual Review in [place], [place] [address] [place] [address] 07/07/2023 7:20 AM INDUSTRIAL [employer] PUBLIC SCHOOL TEACHER Appointment Department of Laboratory Medicine and Pathology, [facility], in [place], [place] [address] [place] [phone] Velma Munson, SHIPPING ASSOCIATE, C.N.P. [address] [place] [phone] 07/07/2023 9:30 AM IND[employer] PUBLIC SCHO[employer] TEACHER Office Visit Division of Rheumatology in [place], [place] [address] [place] [phone] Velma Munson, LONG, C.N.P. [address] [place] [phone] documented as of this encounter Visit Diagnoses Not on filedocumented in this encounter Additional Health Concerns Assessment Noted Time PHQ-9 Depression Total Score: 15 018 1:00 PM [employer] PUBLIC SCHOOL TEACHER documented as of this encounter Care Teams Dinkey Dispatcher Relationship Specialty Start Date End Date Elsewhere, Pcp PCP - General Internal Medicine 10/22/19 documented as of this encounter
--- OUTSIDE RECORDS SUMMARY | 2023-06-01 19:29 | XMS_ITS ---
Author Name Unknown Organization [facility] Address [address] [place] [address] Care Team Providers Care Beauty Operator Name Role Phone Unavailable Unavailable Unavailable Surgery Details Not on file Complications Check Surgery Details section. Procedure Estimated Blood Loss Check Surgery Details section. Procedure Findings Check Surgery Details section. Procedure Specimens Taken Check Surgery Details section.
--- OUTSIDE RECORDS SUMMARY | 2023-06-01 19:29 | XMS_ITS | Encounter Summary ---
Author Name Unknown Organization [facility] Address [address] [place] [address] Care Team Providers Care Fire Eater Name Role Phone Elsewhere, Pcp Primary Care Provider Unavailabl e Reason for Visit * Reason Comments Med Refill Encounter Details Date Type Department Care Team (Late st Contact Info) Description 12/27/2022 Refill Division of Gastroenterology in [place], [place] [address] [place] [phone] Julián Edouard M.D. [address] [place] [phone] Med Refill Social History Tobacco Use Types [...] How often do you attend chur or roman catholic services? More than 4 [...] Date Recorded PHQ-2 Score 3 10/04/2018 [facility] - Occupational Stress Questionnaire Answer [...] (Latest Contact Info) Description 07/05/2023 8:45 AM BIGHT MAKER Clinical Communication Virtual Review in [place], [place] 200 [place] [address] 07/07/2023 7:20 AM BIGHT MAKER Appointment Department of Laboratory Medicine and Pathology, [facility], in [place], [place] [address] [place] [phone] Velma Munson, LONG, C.N.P. [address] [place] [phone] 07/07/2023 9:30 AM BIGHT MAKER Office Visit Division of Rheumatology in [place], [place] [address] [place] [phone] Velma Munson, LONG, C.N.P. [address] [place] [phone] documented as of this encounter Visit Diagnoses Not on filedocumented in this encounter Additional Health Concerns Infection Onset Date Last Indicated Resolved Time Protective Environment 09/28/2022 09/28/2022 Assessment Noted Time PHQ-9 Depression Total Score: 15 018 1:00 PM BIGHT MAKER documented as of this encounter Care Teams Fire Eater Relationship Specialty Start Date End Date Elsewhere, Pcp PCP - General Internal Medicine 10/22/19 documented as of this encounter
--- OUTSIDE RECORDS SUMMARY | 2023-06-01 19:29 | XMS_ITS | Encounter Summary ---
Author Name Unknown Organization [facility] Address [address] [place] [address] Care Team Providers Care Tow Boat Captain Name Role Phone Elsewhere, Pcp Primary Care Provider Unavailabl e Reason for Visit * Reason Onset Date Comments Pre-visit Intake 09/28/2022 Encounter Details Date Type Department Care Team (Latest Contact Info) Description 09/28/2022 12:30 PM CDT Clinical Communication Virtual Review in [place], [place] 200 [place] [address] Pre-visit Intake Social History Tobacco [...] any clubs o r organizations such as alevism groups, unions, fraternal [...] Answer Date Recorded PHQ-2 Score 3 10/04/2018 [facility] of Occupat ional Health - Occupational Stress [...] or slept in a mcc (including now)? No 11/16/2021 Nutrition Answer Date [...] (Latest Contact Info) Description 07/05/2023 8:45 AM OFFICE ADMIN Clinical Communication Virtual Review in [address] [phone] 07/07/2023 7:20 AM OFFICE ADMIN Appointment Department of Laboratory Medicine and Pathology, [facility], in [place], [place] [address] [place] [phone] Velma Munson APRN, C.N.P. [address] [place] [phone] 07/07/2023 9:30 AM OFFICE ADMIN Office Visit Division of Rheumatology in [place], [place] [address] [place] [phone] Velma Munson APRN, C.N.P. [address] [place] [phone] documented as of this encounter Visit Diagnoses Not on filedocumented in this encounter Additional Health Concerns Infection Onset Date Last Indicated Resolved Time Protective Environment 09/28/2022 09/28/2022 Assessment Noted Time PHQ-9 Depression Total Score: 15 018 1:00 PM OFFICE ADMIN documented as of this encounter Care Teams Tow Boat Captain Relationship Specialty Start Date End Date Elsewhere, Pcp PCP - General Internal Medicine 10/22/19 documented as of this encounter
--- OUTSIDE RECORDS SUMMARY | 2023-06-01 19:30 | XMS_ITS | Encounter Summary ---
Author Name Unknown Organization [facility] Address [address] [place] [address] Care Team Providers Care Content Production Specialist Name Role Phone Elsewhere, Pcp Primary Care Provider Unavailabl e Reason for Visit * Reason Onset Date Comments Med Question 07/13/2022 Encounter Details Date Type Department Care Team (Latest Contact Info) Description 07/13/2022 Clinical Communication Division of Gastroenterology in [place], [place] [address] [place] [phone] Julián Edouard M.D. [address] [place] [phone] Med Question Social History Tobacco Use Types [...] often do you attend chur ch or hinduism services? More than 4 times per year [...] Answer Date Recorded PHQ-2 Score 3 10/04/2018 [facility] - Occupational Stress Questionnaire Answer Date [...] (Latest Contact Info) Description 07/05/2023 8:45 AM [facility] Clinical Communication Virtual Review in [place], [place] 200 [place] [address] 07/07/2023 7:20 AM [facility] Appointment Department of Laboratory Medicine and Pathology, [facility], in [place], [place] [address] [place] [phone] Velma Munson, REHAB TECH, C.N.P. [address] [place] [phone] 07/07/2023 9:30 AM [facility] Office Visit Division of Rheumatology in [place], [place] [address] [place] [address] Velma Munson, LONG, C.N.P. [address] [place] [phone] documented as of this encounter Visit Diagnoses Not on filedocumented in this encounter Additional Health Concerns Assessment Noted Time PHQ-9 Depression Total Score: 15 04/21/ 018 1:00 PM [facility] documented as of this encounter Care Teams Content Production Specialist Relationship Specialty Start Date End Date Elsewhere, Pcp PCP - General Internal Medicine 10/22/19 documented as of this encounter
--- OUTSIDE RECORDS SUMMARY | 2023-06-01 19:30 | XMS_ITS | Clinical Summary ---
Author Name Unknown Organization [facility] Address [address] [place] [address] Care Team Providers Care Proof Load Mechanic Name Role Phone Unavailable Primary Care Provider [...] for each transition of care or referral. [facility] Allergies Active Allergy Reactions Criticality Noted [...] needed for Anxiety. 0 Active aluminum-magnesium antacid-diphenhydr CNBJC-bfqpyhghc-vl statin (MAGIC MOUTHWASH) suspension Swish and spit [...]
[2023-06-01] MEDS: KETOROLAC 15 MG/ML inj IVP (19:35)
[2023-06-01] MEDS: 0.9 % SODIUM CHLORIDE 1000 ml 1,000 ML IV (19:35)
[2023-06-01 19:47] LABS: Basophils Percent Auto 0.2 % (0.0-3.0); Eosinophils Percent Auto 0.3 % (0.0-7.0); Hematocrit 43.6 % (33.0-51.0); Hemoglobin* 14.2 gm/dL (12.0-16.0); Immature Granulocytes Pct Auto 0.1 %; Lymphocytes Percent Auto 11.3 % (20-44); Mean Corpuscular HGB Conc 33 gm/dL (32-36); Mean Corpuscular Hemoglobin 28 pg (26-34); Mean Corpuscular Volume 87 fL (80-100); Monocytes Percent Auto 7.6 % (0.0-11.0); Neutrophils Percent Auto 80.5 % (42.0-72.0); Platelet Count* 248 K/uL (140-440); RDW Coefficient of Variation % 13.5 % (11.5-15.5); Red Blood Count 5.02 m/uL (4.00-5.20); White Blood Count* 11.78 K/uL (4.50-11.00)
[2023-06-01 19:49] LABS: Slide Review Reflex No
[2023-06-01 20:00] LABS: Albumin* 4.3 g/dL (3.3-5.0); Chloride* 103 mmol/L (96-114)
[2023-06-01 20:01] LABS: Potassium* 3.3 mmol/L (3.6-5.1); Sodium* 137 mmol/L (135-149)
[2023-06-01 20:03] LABS: Anion Gap 8 mEq/L (7-15); Aspartate Amino Transferase* 22 U/L (12-35); Bilirubin Total* 0.6 mg/dL (0.1-1.5); Carbon Dioxide* 26 mmol/L (20-32); Creatinine* 0.7 mg/dL (0.5-1.5); Est. Creatinine Clearance* 78.65; Estimated Glomerular Filt Rate 105 ml/min; Total Protein* 7.2 g/dL (6.0-8.3)
[2023-06-01 20:04] LABS: Alanine Aminotransferase* 17 U/L (4-35); Alkaline Phosphatase* 107 U/L (40-150); Blood Urea Nitrogen* 11 mg/dL (7-30); Calcium* 8.7 mg/dL (8.4-10.6); Glucose* 107 mg/dL (60-115)
[2023-06-01] MEDS: POTASSIUM BICARB 25 MEQ EFFERVESCENT TAB PO (20:45)
[2023-06-01] MEDS: METOCLOPRAMIDE HCL 5 MG/ML INJ 10 MG IVP (20:45)
[2023-06-01] MEDS: diphenhydrAMINE 50 MG/ML inj 25 MG IVP (20:45)
[2023-06-01 21:03] VITALS: BP 110/77; PULSE 86; RESP 16; O2SAT 94
[2023-06-02 21:14] LABS: C.Difficile POSITIVE (Negative); CDIFFEPI 027 Presumptive Negative (Negative)
--- NOTE | 2023-06-02 21:15 | PC.NURSE ---
patients C-DIF came back positive, MD updated.
== END 2023-06-01 21:55 | disposition home or self-care (01) ==
PROVIDERS: Emergency Provider Emergency Medicine; PCP Internal Medicine
DX: R19.7 Diarrhea, unspecified (principal); E87.6 Hypokalemia; R51.9 Headache, unspecified
CPT/HCPCS: 36415; 80053; 85025; 87045; 87046; 87427; 87493; 96374; 96375; 99283; 99284; A9270; J1200; J1885; J2765; J7030

== ENCOUNTER 2023-08-01 13:40 | Outpatient (CLI) | payer BC, SELFPAY | END 2023-08-01 13:41 | disposition home or self-care (01) | LOC: NFLDREF 08-03 07:43 | PROVIDERS: PCP Internal Medicine; Referring Provider Internal Medicine; Visit Provider Internal Medicine | DX: R35.0 Frequency of micturition (principal); M32.9 Systemic lupus erythematosus, unspecified; N39.0 Urinary tract infection, site not specified | CPT/HCPCS: 87086; 87186 ==

== ENCOUNTER 2023-09-14 08:20 | Outpatient (CLI) | payer BC, SELFPAY ==
--- NOTE | 2023-09-14 08:15 | FL_ITS ---
Patient: ERNESTO MCGILL Facility:?[facility] RIS Patient ID:?[id number] Site Patient ID:?[id number]. Site :?[id number] Study:?XRay-Abdomen Esophagus w/air to Read-09/14/2023 10:44:17 AM Ordering Physician:?RESHMA JOSHI Final Report: Technique: Double-contrast esophagram performed after the uneventful administration of effervescent crystals and thick barium. Fluoroscopy time 1 minute 35 seconds. Indication: GERD, gastroparesis Comparison: Upper GI study 04/06/2023 Findings: Esophagus: The esophagus is distended, as before. No hernia. No mucosal irregularity. No stricture or ulcer. Swallowing mechanism is normal. Gastroesophageal reflux: Large volume spontaneous reflux to the proximal esophagus. Other: Residual food products in the stomach from last evening meal. Delayed emptying of the stomach, as before. Impression: No significant change since the prior study. Large volume spontaneous reflux and delayed gastric clearance. No hiatal hernia. Dictated by Newton Cuellar MD @ 09/14/2023 12:46:40 PM Signed by:?Newton Cuellar MD @09/14/2023 12:46:40 PM (Electronic Signature)
--- OUTSIDE RECORDS SUMMARY | 2023-09-14 08:22 | XMS_ITS | Clinical Summary ---
Author Name Unknown Organization [facility] Address [place], [place] [address] Care Team Providers Care Heating Operators Engineer Name Role Phone Katerina Contreras Unavailable Rohan [...] every 4 hours if needed. 1 Bottle 7 Active fluticasone (50 mcg per actuation) nasal solution (FLONASE)Indicati ons:Sinus pressure Inhale 1 [place] into both nostrils once daily. 1 Bottle 2 7 Active SUMAtriptan (IMITREX) 6 mg/0.5 mL subcutaneous pen injectorIndicatio ns:Migraine without aura and with status migrainosus, not intractable INJECT 6 MG SUBCUTANEOUS EVERY 2 HOURS IF NEEDED FOR MIGRAINE. 1 pen 1 7 Active acetaminophen (TYLENOL EXTRA STRGTH) 500 mg tablet Take 500 mg by mouth. Act rosalba ALPRAZolam 2 mg tablet Bedtime as needed 0 Active Amphetamine-Dextr oamphetamine (ADDERALL) 30 mg tablet dextroamphetamine-amphe tamine 30 mg tablet Active dextroamphetamine -amphetamine (ADDERALL XR) 15 mg Extended-Release capsule Daily 0 Active DULoxetine (CYMBALTA) 60 mg Delayed-release capsule Daily 0 Active hydrOXYchloroQUIN E (PLAQUENIL) 200 mg tablet hydroxychloroquine 200 mg tablet 0 Active hydrOXYzine pamoate (VISTARIL) 25 mg capsule hydroxyzine pamoate 25 mg capsule Active lansoprazole (PREVACID) 15 mg capsule lansoprazole 15 mg capsule,delayed release Acti ve LORazepam (ATIVAN) 1 mg tablet lorazepam 1 mg tablet Act rosalba nitrofurantoin macrocrystaL (MACRODANTIN) 50 mg capsuleIndication s:Recurrent UTI Take 1 capsule by mouth one time if needed for Other (Specify). Take one tablet PO at time of intercourse 30 capsule 11 0 Active estrogens, conjugated (PREMARIN) 0.625 mg/gram vaginal creamIndications: Recurrent UTI Insert 1 g into the vagina at bedtime. 1 Tube 0 Active Active Problems Problem Noted Date Diagnosed Date Insomnia 07/25/2017 Raynaud's disease without gangrene 07/06/2017 Insomnia, idiopathic 01/17/2017 Migraine syndrome 08/26/2016 Mixed connective tissue dise ase (HC). Has seen Rheumatology at [place]. 08/23/2016 Overview: Diagnosis of MCTD made in at [place] when living in [place]. 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 stable. last noted on MRI 2013 in [place] 08/23/2016 Attention deficit hyperactiv ity disorder (ADHD), [...] 2022 11/13/2021, 08/06/2021, 05/15/2020, Additional history exists Pap test for age 21-65 08/15/2023 1, 08/14/2020, 01/14/2015 (Completed outside of [facility]) Influenza for age 50-64 01/01/2024 01/31/20 17, 02/09/2016, 02/09/2016, Additional history exists Tetanus booster 07/11/2024 07/11/2014, 07/11/2014 Colonoscopy through age 75 11/11/2024 11/11/2014 Tdap Completed 07/11/2014, 07/11/2014 Pneumococcal series for age 6-64 Aged Out No longer eligible based on patient's age to complete this topic Procedures Procedure Name Priority Date/Time Associated Diagnosis Comments CLINICAL REVIEW SPECIALIST THIN PREP PAP SCREEN IMAGED Routine 08/14/2020 12:00 PM CDT SCAN-MAMMOGRAPHY REPORT 08/11/2017 12:00 AM CDT from Last 3 Months or Most Recently Relevant to Health Maintenance Results * CLINICAL REVIEW SPECIALIST THIN PREP PAP SCREEN IMAGED (08/14/2020 12:00 PM CDT) Case Report Gynecologic Cytology Report ? Case: [id number] ? Authorizing Provider: ??Kelly Alba ??Collected: ? 08/14/2020 1200 ? M, MD ? Ordering Location: ? [facility] ?Received: ?08/15/2020 0925 ? First Screen: ?Larry Verma ? Specimen: ?CLINICAL REVIEW SPECIALIST ThinPrep Vial Screening, Cervical/Vaginal ? 08/22/2020 2:38 PM CDT [facility] INTERPRETATION/ RESULT NEGATIVE FOR INTRAEPITHELIAL LESION OR MALIGNANCY (NIL) (none) 08/22/2020 2:38 PM CDT [facility] IMEN ADEQUACY Satisfactory for evaluation Endocervical component present 08/22/2020 2:38 PM CDT [facility] HPV REQUEST HPV and PAP 08/22/2020 2:38 PM CDT [facility] Date of LMP 08/07/2020 08/22/2020 2:38 PM CDT [facility] Last Pap Date 02/02/2013 08/22/2020 2:38 PM CDT [facility] Last Pap Result NIL 2:38 PM CDT [facility] Additional Information 08/22/2020 2:38 PM CDT [facility] Comment: Interpreted at [facility], Central Laboratory - [address], [place] [address] Automated Review Successful 08/22/2020 2:38 PM CDT [facility] Comment:Specimen processed s uccessfully by automated assembler convertible top device, ThinPrep Imaging System, [employer] ANCILLARY TESTING CLINICAL REVIEW SPECIALIST HPV Ordered, Please see separate report 08/22/2020 2:38 PM CDT [facility] Note The pap test is a screening technique, not a diagnostic procedure. It is used primarily to screen for squamous cancers and precursor lesions. Published studies have shown that it is subject to both false negative and false positive results. The pap test should not be used as the sole means to diagnose or exclude pre-malignant and malignant lesions. 08/22/2020 2:38 PM CDT [facility] Other (Cervical/Vagina l) 08/14/2020 12:00 PM CDT 08/15/2020 9:25 AM CDT Kelly Alba MD PATHOLOGY/ CYTOLOGY [facility]AT[facility] [address] [place] [address], * SCAN-MAMMOGRAPHY REPORT (08/11/2017 12:00 AM CDT) Anatomical Region Laterality Modality Other Scanner OTHER from Last 3 Months or Most Recently Relevant to Health Maintenance Care Teams Heating Operators Engineer Relationship Specialty Start Date End Date Pcp, No . PCP - General 02/28/19 Katerina Contreras Pediatric Audiologist 07/21/16
--- OUTSIDE RECORDS SUMMARY | 2023-09-14 08:23 | XMS_ITS | Encounter Summary ---
Author Name Unknown Organization [facility] Address [address] [place] [address] Care Team Providers Care Telegraph Office Manager Name Role Phone Elsewhere, Pcp Primary Care Provider Unavailabl e Reason for Visit * Reason Onset Date Comments Previsit Preparation 07/27/2023 RAQUEL DD Encounter Details Date Type Department Care Team (Latest Contact Info) Description 07/27/2023 7:15 AM CDT Clinical Communication Virtual Review in [place], [place] 200 [place] [address] Previsit Preparation (RAQUEL DD) Social History Tobacco Use Types Packs/Day Years Used Date Smoking Tobacco: Never Smokeless Tobacco: Never Tobacco Cessation:Counseling Given: Not Answered Alcohol Use Standard Drinks/Week Comments Not Currently 1 (1 standard drink = 0.6 oz pur e alcohol) [facility] Utilities Answer Date Recorded In the past 12 months has [facility] [employer], gas, oil, or water [employer] threatened to shut off services in your home? Yes 07/28/2023 Humiliation, Afraid, Rape, and Kick questionnair e [...] often do you attend chur ch or latter-day services? More than 4 times per year [...] Answer Date Recorded PHQ-2 Score 3 10/04/2018 [facility] Questionnaire Answer Date [...] exercise (like a brisk walk)? 0 days 07/28/2023 On average, how many minutes do you engage in exercise at this level? 0 min 07/28/2023 Hunger Vital Sign Answer Date Recorded Within the past 12 months, y ou worried that your food would run out before you got the money to buy more. Never true 07/28/19 24 Within the past 12 months, t he food you bought just didn't last and you didn't have money to get more. Never true 07/28/2023 PRAPARE - Transportation Answer Date Re corded In the past 12 months, has l ack of transportation kept you from medical appointments or from getting medications? No 07/01 In the past 12 months, has l ack of transportation kept you from meetings, work, or from getting things needed for daily living? Yes 07/28/2023 Nutrition Answer Date Recorded Nutrition: EVOO Fat Source Yes 07/27 On average, how many serving s of fruits and vegetables do you eat per day (serving size is equal to 1 cup or approximately the size of a tennis ball)? 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 I have a [facility] place to live 07/28/2023 Education Answer Date Recorded What is the [...] this encounter Plan of Treatment Not on file documented as of this encounter Visit Diagnoses Not on filedocumented in this encounter Additional Health Concerns Infection Onset Date Last Indicated Resolved Time Protective Environment 09/28/2022 09/28/2022 Assessment Noted Time PHQ-9 Depression Total Score: 15 018 1:00 PM AGRICULTURAL ENGINEERING TECHNICIAN documented as of this encounter Care Teams Telegraph Office Manager Relationship Specialty Start Date End Date Elsewhere, Pcp PCP - General Internal Medicine 10/22/19 documented as of this encounter
--- OUTSIDE RECORDS SUMMARY | 2023-09-14 08:23 | XMS_ITS | Encounter Summary ---
Author Name Unknown Organization [facility] Address [address] [place] [address] Care Team Providers Care Laminating Machine Offbearer Name Role Phone Elsewhere, Pcp Primary Care Provider Unavailabl e Reason for Visit * Reason Onset Date Comments Labs Only 06/21/2023 Encounter Details Date Type Department Care Team (Late st Contact Info) Description 06/21/2023 Clinical Communication Division of Rheumatology in [place], [place] [address] [place] [phone] Velma Munson, MUSIC ENGRAVER, C.N.P. [address] [place] [phone] Labs Only Social History Tobacco Use Types Packs/Day Years [...] often do you attend chur ch or faith services? More than 4 times per year 11/16/2021 Do you belong to any clubs o r organizations such as scientologist groups, unions, fraternal [...] PHQ-2 Score 3 10/04/2018 [facility] of Occupat ional Health - Occupational [...] encounter Miscellaneous Notes * Telephone Encounter - Beth Shields - 06/21/2023 1:33 PM CST Pt is needing pre-appt lab letter sent. Provider: Jeimy Date of appt: 07/28/23 Mail lab letter to pt ICD-10/DX: Labs needed: Sedimentation Rate [BYH586] CBC with Differential, Blood [KLZ647] CRP (C-Reactive Protein) [KYS805] Creatinine with Estimated GFR [LAB66] AST (Aspartate Aminotransferase) [CAJ043] INER HELPER documented in this encounter Plan of Treatment Not on file documented as of this encounter Visit Diagnoses Not on filedocumented in this encounter Additional Health Concerns Infection Onset Date Last Indicated Resolved Time Protective Environment 09/28/2022 09/28/2022 Assessment Noted Time PHQ-9 Depression Total Score: 15 04/21/ 018 1:00 PM MILLINER HELPER documented as of this encounter Care Teams Laminating Machine Offbearer Relationship Specialty Start Date End Date Elsewhere, Pcp PCP - General Internal Medicine 10/22/19 documented as of this encounter
--- OUTSIDE RECORDS SUMMARY | 2023-09-14 08:23 | XMS_ITS | Encounter Summary ---
Author Name Unknown Organization [facility] Address [address] [place] [address] Care Team Providers Care Core Loader Name Role Phone Elsewhere, Pcp Primary Care Provider Unavailabl e Encounter Details Date Type Department Care Team (Latest Contact Info) Description 07/28/2023 7:20 AM CDT - 07/28/2023 11:59 PM CDT Hospital Encounter Department of Laboratory Medicine and Pathology, [facility] in [place], [place] [address] [place] [address] Velma Munson, LONG, C.N.P. [address] [place] [phone] Arthritis Inflammatory (HCC) Discharge Disposition: Home or Self Care Social History Tobacco Use Types Packs/Day Years Used Date Smoking Tobacco: Never Smokeless Tobacco: Never Alcohol Use Standard Drinks/Week Comments Not Currently 1 (1 standard drink = 0.6 oz pur e alcohol) [facility] Utilities Answer Date Recorded In the past 12 months has e [employer], oil, or water [employer] threatened to shut off services in your [...] Answer Date Recorded PHQ-2 Score 3 10/04/2018 [facility] of Occupat ional Health - Occupational Stress [...] money to buy more. Never true 07/28/19 Within the past 12 months, t he [...] Date Recorded Employment status Working with temporary [employer] 07/28/2023 Housing Stability Answer Date Recorded What is your living situation today? I have a [facility] place to live 07/28/2023 Education [...] Sig Dispensed Refills Start Date End Date methotrexate 25 mg/mL injectionIndications: Arthritis Inflammatory (HCC) Inject 1 mL (25 mg total) under the skin once a week. 12 mL 1 07/28/2023 acetaminophen (TYLENOL) 500 mg tablet Take 500 mg by mouth as needed. ALPRAZolam (XANAX) 1 mg tablet Take 4 mg by mouth. 4 mg daily 09/20/2022 ALPRAZOLAM ORAL Take 2 mg by mouth at bedtime as needed for anxiety. amphetamine-dextroamp hetamine (ADDERALL XR) 15 mg 24 hr capsule Take 15 mg by mouth daily. 09/20/2022 amphetamine-dextroamp hetamine (ADDERALL XR) 30 mg 24 hr capsule Take 30 mg by mouth daily. 09/22/2022 aspirin/acetaminophen /caffeine (EXCEDRIN MIGRAINE ORAL) Take 1 tablet by mouth as needed. BinaxNOW COVID-19 Ag Self Test kit TEST DIRECTED TODAY 08/26/2022 butalbital-acetaminop hen-caff (ESGIC) 50-325-40 mg per tablet Take 1 tablet by mouth every 4 (four) hours as needed. cephalexin (KEFLEX) 250 mg capsule 07/12/2022 diclofenac sodium (Voltaren) 1 % gel [...] times a day. 180 tablet 11 11/03/2021 folic acid 1 mg tabletIndications:Art hritis Inflammatory (HCC) Take 3 tablets (3,000 mcg total) by mouth daily. 180 tablet 2 02/18/2023 hydrOXYzine (ATARAX) 25 mg tablet Take 25 mg by mouth every 6 (six) hours as needed for itching. hydrOXYzine (VISTARIL) 25 mg capsule TAKE 1 TO 2 CAPSULES BY MOUTH EVERY 8 HOURS 07/23/2022 magnesium (MAGTAB) 84 mg CR tablet Take 84 mg by mouth daily. modafiniL (PROVIGIL) 100 mg tablet Take 100 mg by mouth daily. Ozempic 0.25 mg or 0.5 mg (2 mg/3 mL) injection 08/13/2022 Ozempic 1 mg/dose (4 mg/3 mL) injection 09/21/2022 pilocarpine (SALAGEN) 5 mg tabletIndications:Xer ostomia Take 1 tablet (5 mg total) by mouth 3 (three) times a day. 90 tablet 11 09/30/2022 predniSONE (DELTASONE) 5 mg tabletIndications:Art hritis Inflammatory (HCC) Take 30mg daily (15mg twice daily) for 3 days, then 20mg daily (10mg twice daily) for 3 days, then 15mg daily for 3 days, than 10mg daily for 3 days, then off. 105 tablet 02/18/2023 RABEprazole (ACIPHEX) 20 mg EC tablet TAKE 1 TABLET BY MOUTH TWICE DAILY BEFORE BREAKFAST AND DINNER 180 tablet 12/27/2022 sucralfate (CARAFATE) 1 gram tablet TAKE 1 TABLET (1 G TOTAL) BY MOUTH 4 (FOUR) TIMES A DAY. TAKE 1 HOUR BEFORE MEALS AND AT BEDTIME 360 tablet 3 11/16/2021 sulfaSALAzine (AZULFIDINE EN-TABS) 500 mg EC tabletIndications:Art hritis Rheumatoid (HCC) Take 1-2 tablets (500-1,000 mg total) by mouth as directed. Take 1 tab daily for 1 week, then 1 tab twice a day for 1 week, then 2 tabs in AM and 1 tab in PM, and 2 tabs twice a day 360 tablet 1 07/28/2023 SUMAtriptan (IMITREX STATDOSE) 6 mg/0.5 mL injection pen Inject under the skin as needed. Uses 2-4x/month for migraine. Uses once and then once again after 1h if no effect. 03/19/2015 syringe with needle (BD Tuberculin Syringe) 1 mL 27 x 1/2 syringeIndications:Ar thritis Inflammatory (HCC) Inject 1 Syringe under the skin once a week. For use with weekly Methotrexate injections 12 each 1 09/30/2022 topiramate (TOPAMAX) 100 mg tablet Take 100 mg by mouth daily. 08/30/2022 tranexamic acid (LYSTEDA) 650 mg tablet Take 650 mg by mouth daily. hydroxychloroquine (PLAQUENIL) 200 mg tabletIndications:Art hritis Inflammatory (HCC) Take 1-2 tablets (200-400 mg total) by mouth as directed. Take 1 tab on odd days and 2 tabs on even days 135 tablet 1 07/28/2023 08/31/2023 documented as of this encounter Plan of Treatment Not on file documented as of this encounter Procedures Procedure Name Priority Date/Time Associated Diagnosis Comments SEDIMENTATION RATE, B Routine 07/28/2023 8:38 AM CDT Arthritis Inflammatory (HCC) CBC WITH DIFFERENTIAL, B Routine 024 8:38 AM CDT Arthritis Inflammatory (HCC) C-REACTIVE PROTEIN (CRP), S/P Routine 07/28/2023 8:38 AM CDT Arthritis Inflammatory (HCC) ASPARTATE AMINOTRANSFERASE (AST), S/P Routine 07/28/2023 8:38 AM CDT Arthritis Inflammatory (HCC) CREATININE WITH EGFR, S/P Routine 07/28/2023 8:38 AM CDT Arthritis Inflammatory (HCC) documented in this encounter Results * CBC with Differential, Blood (07/28/2023 8:38 AM CDT) [facility] Hemoglobin 12.6 11.6 - 15.0 g/dL 07/28/2023 9:22 AM CDT DTL Hematocrit 38.3 35.5 - 44.9 % 07/28/2023 9:22 AM CDT DTL Erythrocytes 4.47 3.92 - 5.13 x10(12)/L 07/28/2023 9:22 AM CDT DTL MCV 85.7 78.2 - 97.9 fL 07/28/2023 9:22 AM CDT DTL RBC Distrib Width 13.8 12.2 - 16.1 % 07/28/2023 9:22 AM CDT DTL Platelet Count 269 157 - 371 x10(9)/L 07/28/2023 9:22 AM CDT DTL Leukocytes 8.4 3.4 - 9.6 x10(9)/L 07/28/2023 9:22 AM CDT DTL Neutrophils 6.42 1.56 - 6.45 x10(9)/L 07/28/2023 9:22 AM CDT [facility] Lymphocytes 1.42 0.95 - 3.07 x10(9)/L 07/28/2023 9:22 AM CDT DTL Monocytes 0.55 0.26 - 0.81 x10(9)/L 07/28/2023 9:22 AM CDT DTL Eosinophils 0.03 0.03 - 0.48 x10(9)/L 07/28/2023 9:22 AM CDT DTL Basophils <0.03 0.01 - 0.08 x10(9)/L 07/28/2023 9:22 AM CDT DTL Blood (Blood, Venous) 07/28/2023 8:38 AM CDT 07/28/2023 9:01 AM CDT Velma Munson APRN, C.N.P. LAB BLOOD ADD-ON [facility] [address] [place] [address], [facility] [place] [facility] [address] [place], [place] [id number] [place] [address] [address] [place] [address] * Creatinine with Estimated GFR (07/28/2023 8:38 AM CDT) Creatinine 0.93 0.59 - 1.04 mg/dL 07/28/2023 9:34 AM CDT DTL Estimated GFR (eGFR) 74 >=60 mL/min/BSA 07/28/2023 9:34 AM CDT DTL Comment: Estimated GFR calculated using the 2020 CKD_EPI creatinine equation. Blood (Blood, Venous) 07/28/2023 8:38 AM CDT 07/28/2023 9:15 AM CDT Velma Munson APRN, C.N.P. LAB BLOOD ADD-ON [facility] [address] [place] [address], [facility] [place] [facility] [address] [place] [address] * AST (Aspartate Aminotransferase) (07/28/2023 8:38 AM CDT) Aspartate Aminotransferase (AST), S 30 8 - 43 U/L 07/28/2023 9:34 AM CDT DTL Blood (Blood, Venous) 07/28/2023 8:38 AM CDT 07/28/2023 9:15 AM CDT Jorge Polo APRNN.P. LAB BLOOD ADD-ON [facility] 200 [place] [address], [facility] [address] [place] [address] * (ABNORMAL) CRP (C-Reactive Protein) (07/28/2023 8:38 AM CDT) C-Reactive Protein (CRP), S 65.5(H) <5.0 mg/L 07/28/2023 9:34 AM CDT DTL Blood (Blood, Venous) 07/28/2023 8:38 AM CDT 07/28/2023 9:15 AM CDT Karlene Polo APRN.N.P. LAB BLOOD ADD-ON Performing Organization Address City/[facility]/ZIP Co de Phone Number [facility] [address] [place] [address], [facility] [address] [place] [address] * (ABNORMAL) Sedimentation Rate (07/28/2023 8:38 AM CDT) Sedimentation Rate, B 28(H) 2 - 22 mm/h 07/28/2023 10:34 AM CDT DTL Blood (Blood, Venous) 07/28/2023 8:38 AM CDT 07/28/2023 9:01 AM CDT Velma Munson APRN, Karlene.N.P. 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
--- OUTSIDE RECORDS SUMMARY | 2023-09-14 08:23 | XMS_ITS | Encounter Summary ---
Author Name Unknown Organization [facility] Address [address] [place] [address] Care Team Providers Care Grain Combiner Name Role Phone Elsewhere, Pcp Primary Care Provider Unavailabl e Reason for Visit * Reason Onset Date Comments Pre-visit Testing Orders 07/27/2023 For bessie orrow Encounter Details Date Type Department Care Team (Latest Contact Info) Description 07/27/2023 Clinical Communication Division of Rheumatology in [place], [place] [address] [place] [phone] Velma Munson, LONG, C.N.P. [address] [place] [phone] Pre-visit Testing Orders (For tomorr) Social History Tobacco Use Types Packs/Day Years Used Date Smoking Tobacco: Never Smokeless Tobacco: Never Alcohol Use Standard Drinks/Week Comments Not Currently 1 (1 standard drink = 0.6 oz pur e alcohol) [facility] Utilities Answer Date Recorded In the past 12 months has [employer] gas, oil, or water [employer] threatened to shut off services in your [...] How often do you attend chur or restorationism services? More than 4 times per year [...] Score 3 10/04/2018 [facility] of Occupat ional Health - Occupational [...] Date Recorded Employment status Working with temporary [employer] 07/28/2023 Housing Stability Answer Date Recorded What is your living situation today? I have a [facility] place to live 07/28/2023 Education Answer Date [...] on file documented as of this encounter Results * CBC with Differential, Blood (07/28/2023 8:38 AM CDT) Hemoglobin 12.6 11.6 - 15.0 g/dL 07/28/2023 [...] CDT 07/28/2023 9:01 AM CDT Velma Munson APRN C.N.P. LAB BLOOD ADD-ON [facility] [address] [place] [address], [facility] DTL [facility] [address] [place] [address] [facility] [address] [place] [address] * Creatinine with Estimated GFR (07/28/2023 8:38 AM CDT) [facility] Signature Creatinine 0.93 0.59 - 1.04 mg/dL 07/28/2023 9:34 AM CDT DTL Estimated GFR (eGFR) 74 >=60 mL/min/BSA 07/28/2023 9:34 AM CDT DTL Comment: Estimated GFR calculated using the 2020 CKD_EPI creatinine equation. Blood (Blood, Venous) 07/28/2023 8:38 AM CDT 07/28/2023 9:15 AM CDT Velma Munson APRN, Karlene.N.P. LAB BLOOD ADD-ON [facility] [address] [place] [address] * AST (Aspartate Aminotransferase) (07/28/2023 8:38 AM CDT) Aspartate Aminotransferase (AST), S 30 8 - 43 U/L 07/28/2023 9:34 AM CDT DT Blood (Blood, Venous) 07/28/2023 8:38 AM CDT 07/28/2023 9:15 AM CDT Velma Munson APRN, C.N.P. LAB BLOOD ADD-ON [facility] [address] [place] [address] * (ABNORMAL) CRP (C-Reactive Protein) (07/28/2023 8:38 AM CDT) C-Reactive Protein (CRP), S 65.5(H) <5.0 mg/L 07/28/2023 9:34 AM CDT DTL Blood (Blood, Venous) 07/28/2023 8:38 AM CDT 07/28/2023 9:15 AM CDT Velma Munson APRN, Karlene.N.P. LAB BLOOD ADD-ON [facility] [address] [place] [address] * (ABNORMAL) Sedimentation Rate (07/28/2023 8:38 AM CDT) Sedimentation Rate, B 28(H) 2 - 22 mm/h 07/28/2023 10:34 AM CDT DTL Blood (Blood, Venous) 07/28/2023 8:38 AM CDT 07/28/2023 9:01 AM CDT Velma Munson APRN, C.N.P. 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
--- OUTSIDE RECORDS SUMMARY | 2023-09-14 08:23 | XMS_ITS | Encounter Summary ---
Author Name Unknown Organization [facility] Address [address] [place] [address] Care Team Providers Care Roll Line Operator Name Role Phone Elsewhere, Pcp Primary Care Provider Unavailabl e Reason for Visit * Reason Comments Med Refill Encounter Details Date Type Department Care Team (Late st Contact Info) Description 06/21/2023 Refill Division of Rheumatology in [place], [place] [address] [place] [phone] Velma Munson, HARVEST MANAGER, C.N.P. [address] [place] [address] Med Refill Social History Tobacco Use Types [...] often do you attend chur ch or caodaism services? More than 4 times per year 11/16/2021 Do you belong to any clubs o r organizations such as gnosticism groups, unions, fraternal [...] Recorded PHQ-2 Score 3 10/04/2018 [facility] - [facility]ational Stress Questionnaire Answer Date [...] encounter Miscellaneous Notes * Telephone Encounter - Marlyn Page R.N. - 06/23/2023 8:55 AM CST Prescription renewal request for hydroxychloroquine (Plaquenil) received from pharmacy. HISTORY OF PRESENT ILLNESS Last Rheum / VASC visit: 09/30/22 with Velma Munson APRN, CNP Future office visit: 07/28/23 Last monitoring retinal screening exam: 07/28/23: results within parameters Prescription request matches current plan of care. Prescription request matches a current prescription in the Medication List. Exclusion criteria: None (If an alert appeared, it was determined to be an approved exception) ASSESSMENT/PLAN Prescription request renewed per nursing protocol. ESSOR OF PHYSICS documented in this encounter Plan of Treatment Not on file documented as of this encounter Visit Diagnoses Diagnosis Arthritis Inflammatory (HCC) documented in this encounter Additional Health Concerns Infection Onset Date Last Indicated Resolved Time Protective Environment 09/28/2022 09/28/2022 Assessment Noted Time PHQ-9 Depression Total Score: 15 018 1:00 PM PROFESSOR OF PHYSICS documented as of this encounter Care Teams Roll Line Operator Relationship Specialty Start Date End Date Elsewhere, Pcp PCP - General Internal Medicine 10/22/19 documented as of this encounter
--- OUTSIDE RECORDS SUMMARY | 2023-09-14 08:23 | XMS_ITS | Encounter Summary ---
Author Name Unknown Organization [facility] Address [address] [place] [address] Care Team Providers Care Police Officer Name Role Phone Elsewhere, Pcp Primary Care Provider Unavailabl e Reason for Visit * Reason Comments Med Refill Encounter Details Date Type Department Care Team ([facility] st Contact Info) Description 08/26/2023 Refill Division of Rheumatology in [place], [place] [address] [place] [phone] Velma Munson, MANAGER PHARMACEUTICAL, C.N.P. [address] [place] [phone] Med Refill Social History Tobacco Use Types Packs/Day Years Used Date Smoking Tobacco: Never Smokeless Tobacco: Never Alcohol Use Standard Drinks/Week Comments Not Currently 1 (1 standard drink = 0.6 oz pur e alcohol) [facility] Utilities Answer Date Recorded In the past 12 months has [facility] [employer], gas, oil, or water [employer] threatened to shut off services in your [...] How often do you attend chur or gnosticist services? More than 4 times per year [...] Answer Date Recorded PHQ-2 Score 3 10/04/2018 [facility] of Occupat ionga Health - Occupational Stress Questionnaire Answer Date [...] your living situation today? I have a [facility] place to live 07/28/2023 Education [...] encounter Miscellaneous Notes * Telephone Encounter - Carline Xiao, M.S.N., R.N. - 08/31/2023 11:32 AM CDT Prescription renewal request for hydroxychloroquine (Plaquenil) received from pharmacy. HISTORY OF PRESENT ILLNESS Last Rheum / VASC visit: 07/28/23 with Velma Munson APRN, SINTIA Future office visit: ordered, not yet scheduled Last monitoring retinal screening exam: 10/26/2022: results within parameters Prescription request matches current plan of care. Prescription request matches a current prescription in the Medication List. Exclusion criteria: None (If an alert appeared, it was determined to be an approved exception) ASSESSMENT/PLAN Prescription request renewed per nursing protocol. 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
--- OUTSIDE RECORDS SUMMARY | 2023-09-14 08:23 | XMS_ITS | Referral Summary ---
Author Name Unknown Organization [facility] Address [address] [place] [address] Care Team Providers Care Police Justice Name Role Phone Elsewhere, Pcp Primary Care Provider Unavailabl e Source Comments Patient records contain information from all sites at [facility]. For routine questions regarding patient records, call [phone] during business hours, M-F 8:00 AM - 5:00 PM Central Time. Record requests for emergency care only can be directed to [phone] at any time.[facility] Encounters Date Type Department Care Team Description 08/26/2023 Refill Division of Rheumatology in [place], [place] [address] [place] [phone] Velma Munson APRN, C.N.P. Med Refill 07/28/2023 7:20 AM CDT - 07/28/2023 11:59 PM CDT Hospital Encounter Department of Laboratory Medicine and Pathology, [facility], in [place], [place] [address] [place] [phone] Velma Munson APRN, C.N.P. Arthritis Inflammatory (HCC) Discharge Disposition: Home or Self Care 07/28/2023 9:30 AM CDT Office Visit Division of Rheumatology in [place], [place] [address] [place] [phone] Velma Munson APRN, C.N.P. Arthritis Rheumatoid (HCC) (Primary Dx); Arthritis Inflammatory (HCC) 07/27/2023 Clinical Communication Division of Rheumatology in [place], [place] [address] [place] [phone] Velma Munson APRN, C.N.P. Pre-visit Testing Orders (For tomorrow) 07/27/2023 7:15 AM CDT Clinical Communication Virtual Review in [place], [place] [address] [place] [address] Previsit Preparation (RAQUEL DD) 06/23/2023 Clinical Communication Division of Rheumatology in [place], [place] [address] [place] [phone] Marlyn Page RYoselin Results (Eye Exam) 06/21/2023 Clinical Communication Division of Rheumatology in [place], [place] [address] [place] [phone] Velma Munson APRN, C.N.P. Labs Only 06/21/2023 Refill Division of Rheumatology in [place], [place] [address] [place] [phone] Velma Munson APRN, C.N.P. Med Refill from Last 3 Months Allergies Active Allergy [...] once again after 1h if no effect. 5 Active hydrOXYzine (ATARAX) 25 mg tablet Take 25 mg by mouth every 6 (six) hours as needed for itching. Active acetaminophen (TYLENOL) 500 mg tablet Take 500 mg by mouth as needed. Active aspirin/acetamino phen/caffeine (EXCEDRIN MIGRAINE ORAL) Take 1 tablet by mouth as needed. Active ALPRAZOLAM ORAL Take 2 mg by mouth at bedtime as needed for anxiety. Active modafiniL (PROVIGIL) 100 mg tablet Take 100 mg by mouth daily. Active diphenhydramine-l idocaine 2 %-antacid (mw) Take 5-10 mL by mouth 4 (four) times a day after meals and bedtime. Hold in mouth for 1 minute.Do not eat or drink for 15-30 minutes after use. 480 mL 11 1 Active Additional Information Patient not taking.Reported on 09/28/2022 diclofenac sodium (Voltaren) 1 % gel Apply 2 g topically 4 (four) times a day. Apply to hands. 100 g 1 1 Active Additional Information Patient not taking.Reported on 07/27/2023 tranexamic acid (LYSTEDA) 650 mg tablet Take 650 mg by mouth daily. Active butalbital-acetam inophen-caff (ESGIC) 50-325-40 mg per tablet Take 1 tablet by mouth every 4 (four) hours as needed. Active famotidine (PEPCID) 40 mg tablet Take 1 tablet (40 mg total) by mouth 2 (two) times a day. 180 tablet 11 2 Active sucralfate (CARAFATE) 1 gram tablet TAKE 1 TABLET (1 G TOTAL) BY MOUTH 4 (FOUR) TIMES A DAY. TAKE 1 HOUR BEFORE MEALS AND AT BEDTIME 360 tablet 3 2 Active cephalexin (KEFLEX) 250 mg capsule 3 Active BinaxNOW COVID-19 Ag Self Test kit TEST DIRECTED TODAY 3 Active hydrOXYzine (VISTARIL) 25 mg capsule TAKE 1 TO 2 CAPSULES BY MOUTH EVERY 8 HOURS 3 Active Ozempic 0.25 mg or 0.5 mg (2 mg/3 mL) injection 3 Active ALPRAZolam (XANAX) 1 mg tablet Take 4 mg by mouth. 4 mg daily 3 Active topiramate (TOPAMAX) 100 mg tablet Take 100 mg by mouth daily. 3 Active amphetamine-dextr oamphetamine (ADDERALL XR) 15 mg 24 hr capsule Take 15 mg by mouth daily. 3 Active amphetamine-dextr oamphetamine (ADDERALL XR) 30 mg 24 hr capsule Take 30 mg by mouth daily. 3 Active Ozempic 1 mg/dose (4 mg/3 mL) injection 3 Active syringe with needle (BD Tuberculin Syringe) 1 mL 27 x 1/2 syringeIndication s:Arthritis Inflammatory (HCC) Inject 1 Syringe under the skin once a week. For use with weekly Methotrexate injections 12 each 1 3 Active pilocarpine (SALAGEN) 5 mg tabletIndications :Xerostomia Take 1 tablet (5 mg total) by mouth 3 (three) times a day. 90 tablet 11 3 Active RABEprazole (ACIPHEX) 20 mg EC tablet TAKE 1 TABLET BY MOUTH TWICE DAILY BEFORE BREAKFAST AND DINNER 180 tablet 3 Active predniSONE (DELTASONE) 5 mg tabletIndications :Arthritis Inflammatory (HCC) Take 30mg daily (15mg twice daily) for 3 days, then 20mg daily (10mg twice daily) for 3 days, then 15mg daily for 3 days, than 10mg daily for 3 days, then off. 105 tablet 3 Active Additional Information Patient not taking.Reported on 07/27/2023 folic acid 1 mg tabletIndications :Arthritis Inflammatory (HCC) Take 3 tablets (3,000 mcg total) by mouth daily. 180 tablet 2 3 Active magnesium (MAGTAB) 84 mg CR tablet Take 84 mg by mouth daily. Active sulfaSALAzine (AZULFIDINE EN-TABS) 500 mg EC tabletIndications :Arthritis Rheumatoid (HCC) Take 1-2 tablets (500-1,000 mg total) by mouth as directed. Take 1 tab daily for 1 week, then 1 tab twice a day for 1 week, then 2 tabs in AM and 1 tab in PM, and 2 tabs twice a day 360 tablet 1 4 Active methotrexate 25 mg/mL injectionIndicati ons:Arthritis Inflammatory (HCC) Inject 1 mL (25 mg total) under the skin once a week. 12 mL 1 4 Active hydroxychloroquin e (PLAQUENIL) 200 mg tabletIndications :Arthritis Inflammatory (HCC) TAKE 1 TABLET BY MOUTH ON ODD DAYS AND 2 ON EVEN DAYS 135 tablet 1 4 Active hydroxychloroquin e (PLAQUENIL) 200 mg tabletIndications :Arthritis Inflammatory (HCC) Take 1-2 tablets (200-400 mg total) by mouth as directed. Take 1 tab on odd days and 2 tabs on even days 135 tablet 1 4 08/31/19 24 Discontinued Active Problems Problem Noted Date Diagnosed Date [...] drink = 0.6 oz pur e alcohol) [facility] Utilities Answer Date Recorded In the past 12 months has PPS, gas, oil, or water [employer] threatened to shut off services in your [...] Never 11/16/2021 How often do you attend [facility] or druze services? More than 4 times [...] Score 3 10/04/2018 [facility] - Occupational Stress [...] your living situation today? I have a [facility] to live 07/28/2023 Education Answer [...] Sign Reading Time Taken Comments Blood Pressure 144/88 07/28/2023 9:16 AM CDT Pulse 94 07/28/2023 9:16 AM CDT Temperature 36.7 ??C (98.1 ??F) 07/28/2023 9:16 AM CD T Respiratory Rate 12 11/13/2021 2:41 PM CDT Oxygen Saturation 99% 11/13/2021 2:41 PM CDT Inhaled Oxygen Concentration - - Weight 66 kg (145 lb 8.1 oz) 07/28/2023 9:16 AM CDT Height 157 cm (5' 1.81) 07/28/2023 9:16 AM CDT Body Mass Index 26.78 07/28/2023 9:16 AM CDT Plan of Treatment Not on file Medical Devices Implanted Type Area Epidemiology Intern Device Identifier Shelf Expiration Date Model / Serial / Lot Intrauterine Device Intrauterine Device Uterus Description:IUD Mirena Mesh Or Patch Mesh or Patch N/A: Esophagus Conversions - Default Historical Implant Device Implanted:05/04 (Quantity not on file) Misc Other Abdomen Description:Body Location - Abdominal. Device Status Text - MiscOther. lapband. Procedures Procedure Name Priority Date/Time Associated Diagnosis Comments CBC WITH DIFFERENTIAL, B Routine 024 8:38 AM CDT Arthritis Inflammatory (HCC) CREATININE WITH EGFR, S/P Routine 07/28/2023 8:38 AM CDT Arthritis Inflammatory (HCC) ASPARTATE AMINOTRANSFERASE (AST), S/P Routine 07/28/2023 8:38 AM CDT Arthritis Inflammatory (HCC) C-REACTIVE PROTEIN (CRP), S/P Routine 07/28/2023 8:38 AM CDT Arthritis Inflammatory (HCC) SEDIMENTATION RATE, B Routine 07/28/2023 8:38 AM CDT Arthritis Inflammatory (HCC) COLONOSCOPY Routine 11/19/2020 9:15 AM CDT Diarrhea Persistent Unexplained BI BREAST SCREENING BILATERAL Routine 01/30/2016 6:38 PM CDT CHRONIC VIRAL HEPATITIS PROFILE Routine 03/19/2015 3:55 PM FIXING CARPENTER from Last 3 Months or Most Recently Relevant to Health Maintenance Results * (ABNORMAL) Sedimentation Rate (07/28/2023 8:38 AM CDT) Sedimentation Rate, B 28(H) 2 - 22 mm/h 07/28/2023 10:34 AM CDT DTL Blood (Blood, Venous) 07/28/2023 8:38 AM CDT 07/28/2023 9:01 AM CDT Karlene Polo APRN.N.PLennox LAB BLOOD ADD-ON [facility] [address] [place] [address], [facility] [address] [place] [address] * CBC with Differential, Blood (07/28/2023 8:38 AM CDT) Pathologist [facility] Hemoglobin 12.6 11.6 - 15.0 g/dL 07/28/2023 [...] C.N.P. LAB BLOOD ADD-ON Performing Organization Address City/[facility]/ZIP Co de Phone Number [facility] [address] [place], [place] [id number] [place] [address] [address] [place], [place] [phone] [place] [address] [address] [place] [address] * (ABNORMAL) CRP (C-Reactive Protein) (07/28/2023 8:38 AM CDT) C-Reactive Protein (CRP), S 65.5(H) <5.0 mg/L 07/28/2023 9:34 AM CDT DTL Blood (Blood, Venous) 07/28/2023 8:38 AM CDT 07/28/2023 9:15 AM CDT Velma Munson APRN, C.N.P. LAB BLOOD ADD-ON [facility] [address] [place] [address], [facility] [address] [place] [address] * AST (Aspartate Aminotransferase) (07/28/2023 8:38 AM CDT) Aspartate Aminotransferase (AST), S 30 8 - 43 U/L 07/28/2023 9:34 AM CDT DTL Blood (Blood, Venous) 07/28/2023 8:38 AM CDT 07/28/2023 9:15 AM CDT Jorge Polo APRNN.P. LAB BLOOD ADD-ON Performing Organization Address City/[facility] Co de Phone Number [facility] [address] [place] [address], [facility] [address] [place] [address] * Creatinine with Estimated GFR (07/28/2023 8:38 AM CDT) Creatinine 0.93 0.59 - 1.04 mg/dL 07/28/2023 9:34 AM CDT DTL Estimated GFR (eGFR) 74 >=60 mL/min/BSA 07/28/2023 9:34 AM CDT DT Comment: Estimated GFR calculated using the 2020 CKD_EPI creatinine equation. Blood (Blood, Venous) 07/28/2023 8:38 AM CDT 07/28/2023 9:15 AM CDT Jorge Polo APRNN.P. LAB BLOOD ADD-ON Performing Organization Address [facility] Co de Phone Number [facility] [address] [place], [place] [address] [address] [place] [address] * Chronic Hepatitis Profile (03/19/2015 3:55 PM FIXING CARPENTER) HBs Antigen, S Negative Negative [facility] HBs Antibody,S Negative Unvaccinated : Negative; Vaccinated: Positive [facility] Comment:Patient is presumed to be not immune to infection with HBV. HCV Ab, S Negative Negative [facility] Comment:Jwygpu-ty-lmmbfv rat io is <1.00. HBs Antibody, Quantitative, S <5.0 Unvaccinated : <5.0; Vaccinated: >=12.0 MIU/ML [facility] HBc Total Ab, S Negative Negative [facility] 03/19/2015 3:55 PM FIXING CARPENTER 03/19/2015 3:55 PM FIXING CARPENTER Tracy Yusuf LAB MICROBIOLOGY - BLOOD ORDERABLES [facility] [address] [place] [address], [facility] from Last 3 Months or Most Recently Relevant to Health Maintenance Additional Health Concerns Infection Onset Date Last Indicated Protective Environment 09/28/2022 3 Care Teams Police Justice Relationship Specialty Start Date End Date Elsewhere, Pcp PCP - General Internal Medicine 10/22/19
--- OUTSIDE RECORDS SUMMARY | 2023-09-14 08:23 | XMS_ITS | Clinical Summary ---
Author Name Unknown Organization [facility] Address [address] [place] [address] Care Team Providers Care Accounting Auditor Name Role Phone Elsewhere, Pcp Primary Care Provider Unavailabl e Source Comments Patient records contain information from all sites at [facility]. For routine questions regarding patient records, call [phone] during business hours, M-F 8:00 AM - 5:00 PM Central Time. Record requests for emergency care only can be directed to [phone] at any time.[facility] Allergies Active Allergy Reactions Criticality Noted Date [...] Description 08/26/2023 Refill Division of Rheumatology in [place], [place] [address] [place] [phone] Velma Munson APRN, C.N.P. Med Refill 07/28/2023 9:30 AM CDT Office Visit Division of Rheumatology in [place], [place] [address] [place] [phone] Velma Munson APRN, C.N.P. Arthritis Rheumatoid (HCC) (Primary Dx); Arthritis Inflammatory (HCC) 07/28/2023 7:20 AM CDT - 07/28/2023 11:59 PM CDT Hospital Encounter Department of Laboratory Medicine and Pathology, [facility], in [place], [place] [address] [place] [phone] Velma Munson APRN, C.N.P. Arthritis Inflammatory (HCC) Discharge Disposition: Home or Self Care 07/27/2023 7:15 AM CDT Clinical Communication Virtual Review in [place], [place] [address] [place] [phone] Previsit Preparation (RAQUEL DD) 07/27/2023 Clinical Communication Division of Rheumatology in [place], [place] [address] [place] [phone] Velma Munson APRN, C.N.P. Pre-visit Testing Orders (For tomorrow) 06/23/2023 Clinical Communication Division of Rheumatology in [place], [place] [address] [place] [phone] Marlyn Page R.N. Results (Eye Exam) 06/21/2023 Clinical Communication Division of Rheumatology in [place], [place] [address] [place] [phone] Velma Munson APRN C.N.P. Labs Only 06/21/2023 Refill Division of Rheumatology in [place], [place] [address] [place] [phone] Velma Munson APRN, C.N.P. Med Refill from Last 3 Months Immunizations Name Administration [...] niurka Coronary artery disease Maternal Grandfather reagan jean osbaldo Diabetes Maternal Grandfather reagan bah Hypertension Maternal Grandfather reagan bah Arthritis Maternal Grandmother jose e bah Hypertension Maternal Grandmother jose e bah Migraines Maternal Grandmother jose e niurka Stroke Maternal Grandmother jose evlad johnsonbah Transient ischemic attack Maternal Grandmother jose e garcia Hyperlipidemia Mother apple garcia Hypertension Mother apple garcia Migraines Mother apple garcia Sleep apnea Mother apple garcia Thyroid disease [...] 0.6 oz pur e alcohol) [facility] [employer]ities Answer Date Recorded In the past 12 months has [employer], [employer], or water [employer] threatened to shut off services in your [...] Never 11/16/2021 How often do you attend [facility] or mosque services? More than 4 times per year 11/16/2021 Do you belong to any clubs o r organizations such as mu-ism groups, unions, fraternal [...] Answer Date Recorded PHQ-2 Score 3 10/04/2018 [facility] Occupat ional Health - Occupational [...] your living situation today? I have a [facility] place to live 07/28/2023 Education Answer [...] 07/28/2023 9:16 AM CDT Plan of Treatment Health Maintenance Due Date Last Done Comments CT Colonography 1971 Cologuard 1971 Depression Monitoring (PHQ-9) 1971 FIT 1971 Fasting Glucose for Diabetes Screening 1971 HIV Screening 1971 Lipid (Cholesterol) Screening 1971 Pneumococcal vaccine (0-64 y ears) (1 of 2 - PCV) 12/30/1977 Mammogram 01/30/2018 01/30/2017 (Perf ormed elsewhere), 01/30/2016, 01/30/2016, Additional history exists COVID-19 Vaccine ( season) 2022 11/13/2021, 08/06/2021, 12/24/2020, Additional history exists Cervical Cancer Screening 08/15/20232020, 2014 (Performed elsewhere) Hydroxychloroquine (PLAQUENI L) Annual Exam 09/12/2023 Office Visit for Blood Press ure Check / Re-check 10/28/2023 07/28/2023 Colonoscopy 11/19/2030 11/19/2020, 11/19/2020 Colorectal Cancer Screening 11/19/2030 DTaP,Tdap,and Td Vaccines (3 - Td or Tdap) 07/19/2031 07/18/2021, 07/11/2014 Hepatitis C Screening Completed 03/19/2015 Hepatitis B Vaccines Completed 02/21/2019, 12/06/19 Influenza Vaccine Completed 03/02/2023, , 03/25/2021, Additional history exists Zoster Vaccines Completed 06/17/2023, 12/29/2022 Medical Devices Implanted Type Area Vp Scientific Device Identifier Shelf Expiration Date Model / [...] VIRAL HEPATITIS PROFILE Routine 03/19/2015 3:55 PM COAL WEIGHER from Last 3 Months or Most Recently Relevant to Health Maintenance Results * (ABNORMAL) Sedimentation Rate (07/28/2023 8:38 AM CDT) Sedimentation Rate, B 28(H) 2 - 22 mm/h 07/28/2023 10:34 AM CDT DTL Blood (Blood, Venous) 07/28/2023 8:38 AM CDT 07/28/2023 9:01 AM CDT Velma Munson APRN C.N.P. LAB BLOOD ADD-ON [facility] [address] [place] [address], [facility] [address] [place] [address] * CBC with Differential, Blood (07/28/2023 8:38 AM CDT) Pathologist [facility] Hemoglobin 12.6 11.6 - 15.0 g/dL 07/28/2023 [...] Velma Munson APRN, C.N.P. LAB BLOOD ADD-ON [facility] [address] [place] [address], [facility] DTL [facility] [address] [place] [address] [facility] [address] [place] [address] * (ABNORMAL) CRP (C-Reactive Protein) (07/28/2023 8:38 AM CDT) Pathologist [facility] C-Reactive Protein (CRP), S 65.5(H) <5.0 mg/L 07/28/2023 9:34 AM CDT DTL Blood (Blood, Venous) 07/28/2023 8:38 AM CDT 07/28/2023 9:15 AM CDT Velma Munson APRN, C.N.P. LAB BLOOD ADD-ON [facility] [address] [place] [address], [facility] [address] [place] [address] * AST (Aspartate Aminotransferase) (07/28/2023 8:38 AM CDT) Aspartate Aminotransferase (AST), S 30 8 - 43 U/L 07/28/2023 9:34 AM CDT DTL Blood (Blood, Venous) 07/28/2023 8:38 AM CDT 07/28/2023 9:15 AM CDT Velma Munson APRN C.N.P. LAB BLOOD ADD-ON Performing Organization Address City/[facility]/ZIP Co de Phone Number [facility] [address] [place] [address], [facility] [address] [place] [address] * Creatinine with Estimated GFR (07/28/2023 8:38 AM CDT) Creatinine 0.93 0.59 - 1.04 mg/dL 07/28/2023 9:34 AM CDT DTL Estimated GFR (eGFR) 74 >=60 mL/min/BSA 07/28/2023 9:34 AM CDT DTL Comment: Estimated GFR calculated using the 2020 CKD_EPI creatinine equation. Blood (Blood, Venous) 07/28/2023 8:38 AM CDT 07/28/2023 9:15 AM CDT Velma Munson APRN, C.N.P. LAB BLOOD ADD-ON [facility] [address] [place] [address], [facility] [address] [place] [address] * Chronic Hepatitis Profile (03/19/2015 3:55 PM COAL WEIGHER) HBs Antigen, S Negative Negative [facility] HBs Antibody,S Negative Unvaccinated : Negative; Vaccinated: Positive [facility] Comment:Patient is presumed to be not immune to infection with HBV. HCV Ab, S Negative Negative [facility] Comment:Oalywe-kd-hwvbng rat io is <1.00. HBs Antibody, Quantitative, S <5.0 Unvaccinated : <5.0; Vaccinated: >=12.0 MIU/ML [facility] HBc Total Ab, S Negative Negative [facility] 03/19/2015 3:55 PM COAL WEIGHER 03/19/2015 3:55 PM COAL WEIGHER Tracy Yusuf LAB MICROBIOLOGY - BLOOD ORDERABLES [facility] [address] from Last 3 Months or Most Recently Relevant to Health Maintenance Additional Health Concerns Infection Onset Date Last Indicated Protective Environment 09/28/2022 3 Care Teams Accounting Auditor Relationship Specialty Start Date End Date Elsewhere, Pcp PCP - General Internal Medicine 10/22/19
--- OUTSIDE RECORDS SUMMARY | 2023-09-14 08:23 | XMS_ITS ---
Author Name Unknown Organization [facility] Address [address] [place] [address] Care Team Providers Care Work Order Clerk Name Role Phone Unavailable Unavailable Unavailable Surgery Details Not on file Complications Check Surgery Details section. Procedure Estimated Blood Loss Check Surgery Details section. Procedure Findings Check Surgery Details section. Procedure Specimens Taken Check Surgery Details section.
--- OUTSIDE RECORDS SUMMARY | 2023-09-14 08:23 | XMS_ITS | Clinical Summary ---
Author Name Unknown Organization [facility] Address [address] [place] [address] Care Team Providers Care Cartridge Loader Name Role Phone Unavailable Primary Care Provider [...] transition of care or referral. [facility] Allergies Active Allergy Reactions Criticality Noted Date Comments Hydrocodone Itching 09/02/2020 Iodine Other, see comments 09/02/2020 Fainting, SOB Pecan Nut (Diagnostic) Edema,generalized 2020 Medications Medication Sig Dispensed Refills Start Date End Date Status METHOTREXATE OR Inject 50 mg. Active amphetamine-dextro amphetamine (ADDERALL XR) 30 MG 24 hour release capsule Take 30 mg by mouth daily. Active amphetamine-dextro amphetamine (ADDERALL XR) 15 MG 24 hour release capsule Take 15 mg by mouth daily. Active LORazepam (ATIVAN) 2 MG tablet Take 2 mg by mouth every 6 hours as needed for Anxiety. Active aluminum-magnesium antacid-diphenhydr DCJEP-zvwmyyqbt-pq statin (MAGIC MOUTHWASH) suspension Swish and spit 5 mL in mouth every 4 hours as needed. 1:1:1:1 ratio Active modafinil (PROVIGIL) 100 MG tablet Take 100 mg by mouth daily. Active folic acid 1 MG tablet Take 1 mg by mouth daily. Active sucralfate (CARAFATE) 1 g tablet Take 1 g by mouth 4 times a day. Active SUMAtriptan (IMITREX STATDOSE REFILL) 6 MG/0.5ML injection Inject 6 mg subcutaneously once as needed. Active hydroxychloroquine (PLAQUENIL) 200 MG tablet Take by mouth daily. Acti ve butalbital-acetami nophen-caffeine (FIORICET) 50-325-40 MG tablet Take 1 Tablet by mouth every 4 hours as needed for Pain. Active omeprazole (PRILOSEC) 20 MG capsule Take 20 mg by mouth daily. Take 1 hour before a meal. Active hydrOXYzine HCl (ATARAX) 25 MG tablet Take 25 mg by mouth three times a day as needed. Active estradiol (ESTRACE) 0.1 MG/GM vaginal creamIndications:V [...] 1971 Hep C Screening (Preventive Services) 1971 HIV Screening (Preventive Services) 1987 Adult Preventive Visit 12/30/1989 HepB (1) 12/30/1990 Cholesterol 12/30/2016 Mammogram 01/29/2017 01/30/2016, 12/31, 12/26/2012 Zoster/Shingles (1 of 2) 12/30/2021 COVID-19 Vaccine ( season) 2022 11/13/2021, 08/06/2021, 12/24/2020, Additional history exists Influenza (Season Ended) 01/01/202401/31/ 022, 03/25/2021, 01/28/2020, Additional history exists DTaP/Tdap/Td (3 - [...] Procedure Name Priority Date/Time Associated Diagnosis Comments MM MAMMOGRAM SCREENING BILAT W CAD Routine 01/30/2016 6:38 PM CDT from Last 3 Months or Most Recently Relevant to Health Maintenance
--- OUTSIDE RECORDS SUMMARY | 2023-09-14 08:23 | XMS_ITS | Encounter Summary ---
Author Name Unknown Organization [facility] Address [address] [place] [address] Care Team Providers Care Batt Packer Name Role Phone Elsewhere, Pcp Primary Care Provider Unavailabl e Reason for Visit * Reason Onset Date Comments Results 06/23/2023 Eye Exam Encounter Details Date Type Department Care Team (Latest Contact Info) Description 06/23/2023 Clinical Communication Division of Rheumatology in [place], [place] [address] [place] [phone] Marlyn Page RLennoxNLennox [address] [place] [phone] Results (Eye Exam) Social History Tobacco Use Types Packs/Day Years [...] any clubs o r organizations such as mandaen groups, unions, fraternal [...] Answer Date Recorded PHQ-2 Score 3 10/04/2018 [facility] - Occupational Stress Questionnaire Answer Date [...] Notes * Telephone Encounter - Marlyn Page RLennoxN. - 06/23/2023 8:55 AM CST Eye exam from 10/26/22 from [facility] is normal/stable for patient. Follow up in 1 year. OR MARKETING DATA ANALYST documented in this encounter Plan of Treatment Not on file documented as of this encounter Visit Diagnoses Not on filedocumented in this encounter Additional Health Concerns Infection Onset Date Last Indicated Resolved Time Protective Environment 09/28/2022 09/28/2022 Assessment Noted Time PHQ-9 Depression Total Score: 15 018 1:00 PM SENIOR MARKETING DATA ANALYST documented as of this encounter Care Teams Batt Packer Relationship Specialty Start Date End Date Elsewhere, Pcp PCP - General Internal Medicine 10/22/19 documented as of this encounter
--- OUTSIDE RECORDS SUMMARY | 2023-09-14 08:23 | XMS_ITS | Encounter Summary ---
Author Name Unknown Organization [facility] Address [address] [place] [id number] Care Team Providers Care Occ Med Physician Name Role Phone Elsewhere, Pcp Primary Care Provider Unavailabl e Reason for Referral * Outpatient (Routine) - Authorized Specialty Diagnoses / Procedures Referred By Contac t Referred To Contact Rheumatology Velma Munson APRN, C.N.P. [address] [place] [phone] [facility] Referral ID Status Reason Start Date Expiration Date V isits Requested Visits Authorized [id number] Authorized 07/28/2023 01/26/2025 1 1 Reason for Visit * Outpatient (Routine) - Closed Specialty Diagnoses / Procedures Referred By Contpierre gunn Referred To Contact Rheumatology Diagnoses . Velma Munson APRN, C.N.P. [address] [place] [phone] [facility] Referral ID Status Reason Start Date Expiration Date Visits Re quested Visits Authorized [id number] Closed 09/30/2022 09/29/2025 1 1 Encounter Details Date Type Department Care Team (Latest Contact Info) Description 07/28/2023 9:30 AM CDT Office Visit Division of Rheumatology in [place], [place] [address] [place] [phone] Velma Munson APRN, C.N.P. [address] [place] [phone] Arthritis Rheumatoid (HCC) (Primary Dx); Arthritis Inflammatory (HCC) Social History Tobacco Use Types Packs/Day Years Used Date Smoking Tobacco: Never Smokeless Tobacco: Never Alcohol Use Standard Drinks/Week Comments Not Currently 1 (1 standard drink = 0.6 oz pur e alcohol) [facility] Utilities Answer Date Recorded In the past 12 months has [employer], oil, or water [employer] threatened to shut off services in your [...] Never 11/16/2021 How often do you attend [facility] or orthodoxy services? More than 4 times per year 11/16/2021 Do you belong to any clubs o r organizations such as restoration groups, unions, fraternal [...] 10/04/2018 [facility] - Occupational Stress Questionnaire Answer Date [...] your living situation today? I have a [facility] place to live 07/28/2023 Education Answer [...] 07/28/2023 9:16 AM CD T Respiratory Rate - - Oxygen Saturation - - Inhaled Oxygen Concentration - - Weight 66 kg (145 lb 8.1 oz) 07/28/2023 9:16 AM CDT Height 157 cm (5' 1.81) 07/28/2023 9:16 AM CDT Body Mass Index 26.78 07/28/2023 9:16 AM CDT documented in this encounter Progress Notes * Velma Munson, LONG, C.N.P. - 07/28/2023 9:30 AM CDT Images from the original note were not included. SUBJECTIVE CHIEF COMPLAINT / REASON FOR VISIT Waleska Diaz is a 52 y.o. female who presents for follow up of inflammatory arthritis. HISTORY OF PRESENT ILLNESS Ms. Diaz is a 52-year-old female inflammatory arthritis with mixed connective tissue [...] Currently Methotrexate 06/2020 COVID, PNA and shingles methotrexate 07/2021 Lack of refills and feeling better Today, I am seeing Ms. 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 She had a Toupet fundoplication on January 18, 2023. 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 She did she a DO and is drinking a shake and supplements whichis helping with the nausea. She will be having a repeat EGD at the end of August when she is back in [facility]. They are planning on putting Botox by her biggest nerve after it was damage with the lap band removal, however this does not work they may think about doing a bypass or a pacemaker. 2023 she missed a couple stairs and had injury to her right ankle. She was seen in the ER May 11, 2023 for diarrhea, weakness, lethargy and was found to have C diff. she was treated twice forthis in May as the diarrhea did not resolve. Last week she was battling an ear infection, cough, with laryngitis and try to take a Z-Pino, however the diarrhea returned after 1 day of the antibiotic. She has had several episodes of extreme dry eyes and has found that lubricating drops are very beneficial. She just returned back to work this lost week. She has lost 8.4 kg since fall. She has been under a lot of stress since I saw her last due to family members passing away. She states that her Raynaud's is worse right now also. She continues take Plaquenil 200 mg on odd days and 400 mg on even days, methotrexate 25 mg SQ once weekly, folic acid 3 mg daily, pilocarpine 5 mg three times a day as needed for dry mouth. Morning stiffness lasts all day. She denies any recent hospitalizations.She denies any adverse side effects to Plaquenil or methotrexate. Rheumatoid Arthritis RF +: No CCP +: No Current Symptoms: diarrhea, dry eyes (drops as needed), dry mouth (Pilocarpine- helping), fatigue (worsening over the last couple of months), Raynaud's syndrome (no digital ulcers; worse during the summer), weight loss (8.4 kg weight loss), cough (getting over cold), abdominal pain (left abd pain),heartburn and dyspnea (harder to walk) Current Symptoms: no fever, no rash, no excessive bruising, no chest pain, no edema, no nausea (with migraines), no vomiting, no anorexia, no chills, no [...] fatigue (worsening over the last couple of months) and weight loss (8.4 kg weight loss). - Negative for chills, fever, loss of appetite, night sweats and weight gain of more than 10 pounds. Skin: - Negative for skin rash and breast lump. Eyes: Positive for visual problems. ENT: Positive for difficulty hearing and sinus congestion. Respiratory: Positive for coughing (getting over cold). Cardiovascular: Positive for pain in the calf muscles when walking. - Negative for chest pain, pressure or tightness and swelling in the legs or feet. Gastrointestinal: Positive for abdominal (belly) pain or cramping (left abd pain), constipation (IBS), diarrhea and heartburn. - Negative for anorexia, nausea (with migraines) and vomiting. Hematologic: [...] weeks. The following systems were negative: Skin, Genitourinary OBJECTIVE PHYSICAL EXAM Physical Exam General: Alert, oriented, appropriate affect, no apparent distress. Skin: No rheumatologic rashes or ulcers noted. Eyes: Clear conjunctivae and lids. Ears: Right ear, erythemic with effusion. Lymph: No cervical or supraclavicular adenopathy. Cardio: [...] PIP and right 5th DIP hypertrophy noted. Lab: CBC with differential is normal. Creatinine, GFR, and AST all within normal limits. CRP is 65.5. ESR 5. 08/06/2021 11/16/2021 09/30/2022 07/28/2023 Tender joint count (0-28) 0 0 2 4 Swollen joint count (0-28) 0 0 1 0 Patient global assessment (0-100) 4 50 77 8 Field Crop Harvest Worker global assessment (0-100) 20 30 50 15 ESR (mm/h) -- -- 5 28 CRP (mg/L) -- -- 5.1 65.5 Disease Activity Score 28 using ESR ([id number]) -- -- 3.28 3.56 Disease Activity Score 28 using CRP ([id number]) -- -- 3.76 3.7 Clinical Disease Activity Index (CDAI) 2.4 8 15.7 6.3 Simplified Disease Activity Index (SDAI) -- -- 16.21 12.85 ASSESSMENT / PLAN #1 Arthritis Inflammatory (HCC) #2 SICCA symptoms #3 Worsening Fatigue #4 Right otitis media She is doing significantly worse than when I saw her last. However, she has been under a month amount of stress related to a family member's . She is currently dealing with the URI and tried to take 1 doses azithromycin, however she developed diarrhea. I would recommend her primary care provider to do an IM shot of corticosteroid to help with inflammation noted in her right ear as she can not take any antibiotics at this time due to recurrent C diff. she continues to have significant fatigue and generalized pain. Her CRP is elevated at 65.5, however I do not know if this was related to the URI that she currently has or the GI issues. I do believe we could do better controlling her autoimmune disease so I would like to start her on sulfasalazine 500 mg daily for 1 week, then 500 mg twice a day for 1 week, then 1000 mg in a.m. and 500 mg in p.m. for 1 week, then stay on 2000 mg daily. We discussed risks, benefits, and adverse side effects to medication. She will continue methotrexate 25 mg subq once weekly, folic acid 3 mg daily, pilocarpine 5 mg 3 times a day, and Plaquenil 200 mg on odd days and 400 mg on even days. Patient was in agreement with this plan. I refilled her prescriptions accordingly. #5 High Risk Medication Last Plaquenil eye exam was October 26, 2022 No eye toxicity noted. She will be due again in October 2023. She will continue to do labs every 3 months for methotrexate. I have recommended her start labs once a month for the next 3 months and every 3 months thereafter for sulfasalazine as this is a new start. I will send these recommendations to her PCP. I will follow up with her in 3 months. I answered the patients questions to the best of my ability. The patient seemed pleased with our interaction. If she should have any additional questions or concerns. I have asked that she contact usat that time. ' documented in this encounter Plan of Treatment Scheduled Orders Name Type Priority Associated Diagnoses Orde r Schedule CBC with Differential, Blood Lab Routine Arthritis Rheumatoid (HCC) Expected: 10/28/2023 (Approximate), Expires: 07/27/2024 Sedimentation Rate Lab Routine Arthritis Rheumatoid (HCC) Expected: 10/28/2023 (Approximate), Expires: 07/27/2024 CRP (C-Reactive Protein) Lab Routine Arthritis Rheumatoid (HCC) Expected: 10/28/2023 (Approximate), Expires: 07/27/2024 Creatinine with Estimated GFR Lab Routine Arthritis Rheumatoid (HCC) Expected: 10/28/2023 (Approximate), Expires: 07/27/2024 AST (Aspartate Aminotransferase) Lab Routine Arthritis Rheumatoid (HCC) Expected: 10/28/2023 (Approximate), Expires: 07/27/2024 Scheduled Referrals Name Type Priority Associated Diagnoses Order Schedule Rheumatology office visit (clinic) Outpatient Referral Routine Expected: 10/28/2023 (Approximate), Expires: 10/27/2024 documented as of this encounter Visit Diagnoses Diagnosis Arthritis Rheumatoid (HCC)- Primary Arthritis Inflammatory (HCC) documented in this encounter Additional Health Concerns Infection Onset Date Last Indicated Resolved Time Protective Environment 09/28/2022 09/28/2022 Assessment Noted Time PHQ-9 Depression Total Score: 15 018 1:00 PM CUT OUT MARKER documented as of this encounter Care Teams Occ Med Physician Relationship Specialty Start Date End Date Elsewhere, Pcp PCP - General Internal Medicine 10/22/19 documented as of this encounter
== END 2023-09-14 08:21 | disposition home or self-care (01) ==
LOC: RAD 08:21
PROVIDERS: PCP Internal Medicine; Visit Provider Internal Medicine Gastroenterology
DX: K21.9 Gastro-esophageal reflux disease without esophagitis (principal); K31.84 Gastroparesis
CPT/HCPCS: 74221

== ENCOUNTER 2023-09-21 15:09 | Outpatient (CLI) | payer BC, SELFPAY ==
--- OUTSIDE RECORDS SUMMARY | 2023-10-11 12:15 | XMS_ITS | Clinical Summary ---
Author Organization [facility] Address [place], [place] [address] Care Team Providers Care Shock Absorption Floor Layer Name Role Phone Katerina Contreras Unavailable Rohan [...] nasal solution (FLONASE)Indicati ons:Sinus pressure Inhale 1 [place] into both nostrils once daily. 1 Bottle [...] dise ase (HC). Has seen Rheumatology at [place]. 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 stable. last noted on MRI 2013 in [place] 08/23/2016 Attention deficit hyperactiv ity disorder (ADHD), [...] 08/15/2023 1, 08/14/2020, 01/14/2015 (Completed outside of [facility]) Influenza for age 50-64 01/01/2024 01/31/20 17, 02/09/2016, 02/09/2016, Additional history exists Tetanus booster 07/11/2024 07/11/2014, 07/11/2014 Colonoscopy through age 75 11/11/2024 11/11/2014 Tdap Completed 07/11/2014, 07/11/2014 Pneumococcal series for age 6-64 Aged Out No longer eligible based on patient's age to complete this topic Procedures Procedure Name Priority Date/Time Associated Diagnosis Comments SOUS CHEF THIN PREP PAP SCREEN IMAGED Routine 08/14/2020 12:00 PM CDT SCAN-MAMMOGRAPHY REPORT 08/11/2017 12:00 AM CDT from Last 3 Months or Most Recently Relevant to Health Maintenance Results * SOUS CHEF THIN PREP PAP SCREEN IMAGED (08/14/2020 12:00 PM CDT) Case Report Gynecologic Cytology Report ? Case: [id number] ? Authorizing Provider: ??Kelly Alba ??Collected: ? 08/14/2020 1200 ? M, MD ? Ordering Location: ? [facility] ?Received: ?08/15/2020 0925 ? First Screen: ?Larry Verma ? Specimen: ?SOUS CHEF ThinPrep Vial Screening, Cervical/Vaginal ? 08/22/2020 2:38 PM CDT [facility] INTERPRETATION/ RESULT NEGATIVE FOR INTRAEPITHELIAL LESION OR MALIGNANCY (NIL) (none) 08/22/2020 2:38 PM CDT [facility] IMEN ADEQUACY Satisfactory for evaluation Endocervical component present 08/22/2020 2:38 PM CDT [facility] HPV REQUEST HPV and PAP 08/22/2020 2:38 PM CDT [facility] Date of LMP 08/07/2020 08/22/2020 2:38 PM CDT [facility] Last Pap Date 02/02/2013 08/22/2020 2:38 PM CDT [facility] Last Pap Result NIL 2:38 PM CDT [facility] Additional Information 08/22/2020 2:38 PM CDT [facility] Comment: Interpreted at [facility] - [address], [place] [address] Automated Review Successful 08/22/2020 2:38 PM CDT [facility] Comment:Specimen processed s uccessfully by automated sandstone splitter device, ThinPrep Imaging System, [employer] ANCILLARY TESTING SOUS CHEF HPV Ordered, Please see separate report 08/22/2020 2:38 PM CDT [facility] Note The pap test is [...] and malignant lesions. 08/22/2020 2:38 PM CDT [facility] Other (Cervical/Vagina l) 08/14/2020 12:00 PM CDT 08/15/2020 9:25 AM CDT Kelly Alba MD PATHOLOGY/ CYTOLOGY [facility] [address] [place] [address], * SCAN-MAMMOGRAPHY REPORT (08/11/2017 12:00 AM CDT) Anatomical Region Laterality Modality Other Scanner OTHER from Last 3 Months or Most Recently Relevant to Health Maintenance Care Teams Shock Absorption Floor Layer Relationship Specialty Start Date End Date Pcp, No . PCP - General 02/28/19 Katerina Contreras Construction Consultant 07/21/16
--- OUTSIDE RECORDS SUMMARY | 2023-10-11 12:16 | XMS_ITS | Encounter Summary ---
Author Organization [facility] Address [address] [place] [address] Care Team Providers Care Hydrogen Treater Name Role Phone Elsewhere, Pcp Primary Care Provider Unavailabl e Reason for Visit * Reason Comments Med Refill Encounter Details Date Type Department Care Team ([facility] st Contact Info) Description 08/26/2023 Refill Division of Rheumatology in [place], [place] [address] [place] [phone] Velma Munson, BRIDGE TEACHER, C.N.P. [address] [place] [phone] Med Refill Social History Tobacco Use Types Packs/Day Years Used Date Smoking Tobacco: Never Smokeless Tobacco: Never Alcohol Use Standard Drinks/Week Comments Not Currently 1 (1 standard drink = 0.6 oz pur e alcohol) [facility] Utilities Answer Date Recorded In the past 12 months has [facility] [employer], gas, oil, or water [employer] threatened to shut off services in your [...] Never 11/16/2021 How often do you attend [facility] or faith services? 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 I have a [facility] place to live 07/28/2023 Education Answer [...] Miscellaneous Notes * Telephone Encounter - Carline Xiao M.S.N., R.N. - 08/31/2023 11:32 AM CDT Prescription renewal request for hydroxychloroquine (Plaquenil) received from pharmacy. HISTORY OF PRESENT ILLNESS Last Rheum / VASC visit: 07/28/23 with Velma Munson APRN, MATERIAL CARRIER Future office visit: ordered, not yet scheduled [...] Depression Total Score: 15 018 1:00 PM SUMO WRESTLER documented as of this encounter Care Teams Hydrogen Treater Relationship Specialty Start Date End Date Elsewhere, Pcp PCP - General Internal Medicine 10/22/19 documented as of this encounter
--- OUTSIDE RECORDS SUMMARY | 2023-10-11 12:16 | XMS_ITS | Referral Summary ---
Author Organization [facility] Address [address] [place] [id number] Care Team Providers Care Weight Analyst Name Role Phone Elsewhere, Pcp Primary Care Provider Unavailabl e Source Comments Patient records contain information from all sites at [facility]. For routine questions regarding patient records, call [phone] during business hours, M-F 8:00 AM - 5:00 PM Central Time. Record requests for emergency care only can be directed to [phone] at any time.[facility] Encounters Date Type Department Care Team Description 08/26/2023 Refill Division of Rheumatology in [place], [place] [address] [place] [phone] Velma Munson APRN, C.N.P. Med Refill 07/28/2023 7:20 AM CDT - 07/28/2023 11:59 PM CDT Hospital Encounter Department of Laboratory Medicine and Pathology, [facility], in [place], [place] [address] [place] [phone] Velma Munson APRN, C.N.P. Arthritis Inflammatory (HCC) Discharge Disposition: Home or Self Care 07/28/2023 9:30 AM CDT Office Visit Division of Rheumatology in [place], [place] [address] [place] [phone] Velma Munson APRN, C.N.P. Arthritis Rheumatoid (HCC) (Primary Dx); Arthritis Inflammatory (HCC) 07/27/2023 Clinical Communication Division of Rheumatology in [place], [place] [address] [place] [phone] Velma Munsno APRN, C.N.P. Pre-visit Testing Orders (For tomorrow) 07/27/2023 7:15 AM CDT Clinical Communication Virtual Review in [place], [place] [address] [place] [phone] Previsit Preparation (RAQUEL DD) from Last 3 Months Allergies Active Allergy [...] again after 1h if no effect. 03/19/2015 Active hydrOXYzine (ATARAX) 25 mg tablet Take 25 mg by mouth every 6 (six) hours as needed for itching. Active acetaminophen (TYLENOL) 500 mg tablet Take 500 mg by mouth as needed. Active aspirin/acetaminoph en/caffeine (EXCEDRIN MIGRAINE ORAL) Take 1 tablet by mouth as needed. Active ALPRAZOLAM ORAL Take 2 mg by mouth at bedtime as needed for anxiety. Active modafiniL (PROVIGIL) 100 mg tablet Take 100 mg by mouth daily. Active diphenhydramine-lid ocaine 2 %-antacid (mw) Take 5-10 mL by [...] to hands. 100 g 1 11/06/2020 Active Additional Information Patient not taking.Reported on 07/27/2023 tranexamic acid (LYSTEDA) 650 mg tablet Take 650 mg by mouth daily. Active butalbital-acetamin ophen-caff (ESGIC) 50-325-40 mg per tablet Take 1 [...] 11/16/2021 Active cephalexin (KEFLEX) 250 mg capsule 07/12/2022 Active BinaxNOW COVID-19 Ag Self Test kit TEST DIRECTED TODAY 08/26/2022 Active hydrOXYzine (VISTARIL) 25 mg capsule TAKE 1 TO 2 CAPSULES BY MOUTH EVERY 8 HOURS 07/23/2022 Active Ozempic 0.25 mg or 0.5 mg (2 mg/3 mL) injection 08/13/2022 Active ALPRAZolam (XANAX) 1 mg tablet Take 4 mg by mouth. 4 mg daily 09/20/2022 Active topiramate (TOPAMAX) 100 mg tablet Take 100 mg by mouth daily. 08/30/2022 Active amphetamine-dextroa mphetamine (ADDERALL XR) 15 mg 24 hr capsule Take 15 mg by mouth daily. 09/20/2022 Active amphetamine-dextroa mphetamine (ADDERALL XR) 30 mg 24 hr capsule Take 30 mg by mouth daily. 09/22/2022 Active Ozempic 1 mg/dose (4 mg/3 mL) injection 09/21/2022 Active syringe with needle (BD Tuberculin Syringe) 1 mL 27 x 1/2 syringeIndications: Arthritis Inflammatory (HCC) Inject 1 Syringe under the skin once a week. For use with weekly Methotrexate injections 12 each 1 09/30/2022 Active pilocarpine (SALAGEN) 5 mg tabletIndications:X erostomia Take 1 tablet (5 mg total) by mouth 3 (three) times a day. 90 tablet 11 09/30/2022 Active RABEprazole (ACIPHEX) 20 mg EC tablet TAKE 1 TABLET BY MOUTH TWICE DAILY BEFORE BREAKFAST AND DINNER 180 tablet 12/27/2022 Active predniSONE (DELTASONE) 5 mg tabletIndications:A rthritis Inflammatory (HCC) Take 30mg daily (15mg twice daily) for 3 days, then 20mg daily (10mg twice daily) for 3 days, then 15mg daily for 3 days, than 10mg daily for 3 days, then off. 105 tablet 02/18/2023 Active Additional Information Patient not taking.Reported on 07/27/2023 folic acid 1 mg tabletIndications:A rthritis Inflammatory (HCC) Take 3 tablets (3,000 mcg total) by mouth daily. 180 tablet 2 02/18/2023 Active magnesium (MAGTAB) 84 mg CR tablet Take 84 mg by mouth daily. Active sulfaSALAzine (AZULFIDINE EN-TABS) 500 mg EC tabletIndications:A rthritis Rheumatoid (HCC) Take 1-2 tablets (500-1,000 mg total) by mouth as directed. Take 1 tab daily for 1 week, then 1 tab twice a day for 1 week, then 2 tabs in AM and 1 tab in PM, and 2 tabs twice a day 360 tablet 1 07/28/2023 Active methotrexate 25 mg/mL injectionIndication s:Arthritis Inflammatory (HCC) Inject 1 mL (25 mg total) under the skin once a week. 12 mL 1 07/28/2023 Active hydroxychloroquine (PLAQUENIL) 200 mg tabletIndications:A rthritis Inflammatory (HCC) TAKE 1 TABLET BY MOUTH ON ODD DAYS AND 2 ON EVEN DAYS 135 tablet 1 08/31/2023 Active Active Problems Problem Noted Date Diagnosed [...] 0.6 oz pur e alcohol) [facility] [employer] Answer Date Recorded In the past 12 months has Belly, gas, oil, or water [employer] threatened to shut off services in your [...] often do you attend chur ch or yazidi services? More than 4 times per year 11/16/2021 Do you belong to any clubs o r organizations such as mandaeism groups, unions, fraternal [...] Answer Date Recorded PHQ-2 Score 3 10/04/2018 [facility] - Occupational Stress Questionnaire [...] Date Recorded Employment status Working with temporary [employer] 07/28/2023 Housing Stability Answer Date Recorded What is your living situation today? I have a [facility] place to live 07/28/2023 Education Answer [...] on file Medical Devices Implanted Type Area Software Design Manager Device Identifier Shelf Expiration Date Model / [...] VIRAL HEPATITIS PROFILE Routine 03/19/2015 3:55 PM CUFF SLITTER from Last 3 Months or Most Recently Relevant to Health Maintenance Results * (ABNORMAL) Sedimentation Rate (07/28/2023 8:38 AM CDT) Sedimentation Rate, B 28(H) 2 - 22 mm/h 07/28/2023 10:34 AM CDT DTL Blood (Blood, Venous) 07/28/2023 8:38 AM CDT 07/28/2023 9:01 AM CDT Velma Munson APRN, C.N.P. LAB BLOOD ADD-ON [facility] [address] [place] [address], [facility] [address] [place] [address] * CBC with Differential, Blood (07/28/2023 8:38 [...] - 6.45 x10(9)/L 07/28/2023 9:22 AM CDT [facility] Lymphocytes 1.42 0.95 - 3.07 x10(9)/L 07/28/2023 9:22 AM CDT DTL Monocytes 0.55 0.26 - 0.81 x10(9)/L 07/28/2023 9:22 AM CDT DTL Eosinophils 0.03 0.03 - 0.48 x10(9)/L 07/28/2023 9:22 AM CDT DTL Basophils <0.03 0.01 - 0.08 x10(9)/L 07/28/2023 9:22 AM CDT DTL Blood (Blood, Venous) 07/28/2023 8:38 AM CDT 07/28/2023 9:01 AM CDT Velma Munson APRN C.N.P. LAB BLOOD ADD-ON [facility] [address] [place] [address], [facility] DTL [facility] [address] [place] [address] [facility] [address] [place] [address] * (ABNORMAL) CRP (C-Reactive Protein) (07/28/2023 8:38 AM CDT) C-Reactive Protein (CRP), S 65.5(H) <5.0 mg/L 07/28/2023 9:34 AM CDT DTL Blood (Blood, Venous) 07/28/2023 8:38 AM CDT 07/28/2023 9:15 AM CDT Velma Munson APRN, C.N.P. LAB BLOOD ADD-ON [facility] [address] 200 [place] [address] * AST (Aspartate Aminotransferase) (07/28/2023 8:38 AM CDT) Aspartate Aminotransferase (AST), S 30 8 - 43 U/L 07/28/2023 9:34 AM CDT DT Blood (Blood, Venous) 07/28/2023 8:38 AM CDT 07/28/2023 9:15 AM CDT Velma Munson APRN, C.N.P. LAB BLOOD ADD-ON [facility] [address] [facility] 200 [place] [address] * Creatinine with Estimated GFR (07/28/2023 8:38 AM CDT) Creatinine 0.93 0.59 - 1.04 mg/dL 07/28/2023 9:34 AM CDT DT Estimated GFR (eGFR) 74 >=60 mL/min/BSA 07/28/2023 9:34 AM CDT DTL Comment: Estimated GFR calculated using the 2020 CKD_EPI creatinine equation. Blood (Blood, Venous) 07/28/2023 8:38 AM CDT 07/28/2023 9:15 AM CDT Velma Munson APRN, C.N.P. LAB BLOOD ADD-ON [facility] [address] [place] [address], [facility] DTL [facility] [address] [place] [address] * Chronic Hepatitis Profile (03/19/2015 3:55 PM CUFF SLITTER) HBs Antigen, S Negative Negative [facility] HBs Antibody,S Negative Unvaccinated : Negative; Vaccinated: Positive [facility] Comment:Patient is presumed to be not immune to infection with HBV. HCV Ab, S Negative Negative [facility] Comment:Rpctnh-hr-ihqxhq rat io is <1.00. HBs Antibody, Quantitative, S <5.0 Unvaccinated : <5.0; Vaccinated: >=12.0 MIU/ML [facility] HBc Total Ab, S Negative Negative [facility] 03/19/2015 3:55 PM CUFF SLITTER 03/19/2015 3:55 PM CUFF SLITTER Tracy Yusuf LAB MICROBIOLOGY - BLOOD ORDERABLES Performing Organization Address City/[facility] Co de Phone Number [facility] [address] from Last 3 Months or Most Recently Relevant to Health Maintenance Additional Health Concerns Infection Onset Date Last Indicated Protective Environment 09/28/2022 3 Care Teams Weight Analyst Relationship Specialty Start Date End Date Elsewhere, Pcp PCP - General Internal Medicine 10/22/19
--- OUTSIDE RECORDS SUMMARY | 2023-10-11 12:16 | XMS_ITS | Clinical Summary ---
Author Organization [facility] Address [address] [place] [address] Care Team Providers Care Apple Checker Name Role Phone Elsewhere, Pcp Primary Care Provider Unavailabl e Source Comments Patient records contain information from all sites at [facility]. For routine questions regarding patient records, call [phone] during business hours, M-F 8:00 AM - 5:00 PM Central Time. Record requests for emergency care only can be directed to [phone] at any time.[facility] Allergies Active Allergy Reactions Criticality Noted [...] Description 08/26/2023 Refill Division of Rheumatology in [place], [place] [address] [place] [phone] Velma Munson APRN, C.N.P. Med Refill 07/28/2023 9:30 AM CDT Office Visit Division of Rheumatology in [address] [phone] Velma Munson APRN, C.N.P. Arthritis Rheumatoid (HCC) (Primary Dx); Arthritis Inflammatory (HCC) 07/28/2023 7:20 AM CDT - 07/28/2023 11:59 PM CDT Hospital Encounter Department of Laboratory Medicine and Pathology, [facility], in [address] [phone] Velma Munson APRN, C.N.P. Arthritis Inflammatory (HCC) Discharge Disposition: Home or Self Care 07/27/2023 7:15 AM CDT Clinical Communication Virtual Review in [place], [place] 200 [place] [address] Previsit Preparation (RAQUEL DD) 07/27/2023 Clinical Communication Division of Rheumatology in [address] [phone] Velma Munson APRN, C.N.P. Pre-visit Testing Orders (For tomorrow) from Last 3 Months Immunizations Name Administration [...] bah Coronary artery disease Maternal Grandfather reagan roblero Diabetes Maternal Grandfather reagan bah Hypertension Maternal Grandfather reagan bah Arthritis Maternal Grandmother jose e bah Hypertension Maternal Grandmother jose e bah Migraines Maternal Grandmother jose e bah Stroke Maternal Grandmother jose e bah Transient ischemic attack Maternal Grandmother jose e mushtaq onzales Hyperlipidemia Mother apple jose Hypertension Mother apple jose Migraines Mother apple jose Sleep apnea Mother apple jose Thyroid disease Mother apple jose Diabetes Paternal Grandfather nichole zaragosa Hypertension Paternal Grandfather nichole reeseragosa Sleep apnea Paternal Grandfather nichole zaragosa Arthritis [...] drink = 0.6 oz pur e alcohol) [facility] Utilities Answer Date Recorded In the past 12 months has e electric, gas, oil, or water company threatened to shut off services in your [...] often do you attend chur ch or zoroastrian services? More than 4 times [...] Answer Date Recorded PHQ-2 Score 3 10/04/2018 [facility] - Occupational Stress Questionnaire Answer Date [...] your living situation today? I have a [facility] place to live 07/28/2023 Education Answer [...] 01/30/2016, 01/30/2016, Additional history exists COVID-19 Vaccine (2022- season) 2022 11/13/2021, 08/06/2021, 12/24/2020, Additional history exists Cervical Cancer Screening 08/15/20232020, 2014 (Performed elsewhere) Hydroxychloroquine (PLAQUENI L) Annual Exam 10/09/2023 Office Visit for Blood Press ure Check / Re-check 10/28/2023 07/28/2023 Colonoscopy 11/19/2030 11/19/2020, 11/19/2020 Colorectal Cancer Screening 11/19/2030 DTaP,Tdap,and Td Vaccines (3 - Td or Tdap) 07/19/2031 07/18/2021, 07/11/2014 Hepatitis C Screening Completed 03/19/2015 Hepatitis B Vaccines Completed 02/21/2019, 08/06/20 19 Influenza Vaccine Completed 03/02/2023, , 03/25/2021, Additional history exists Zoster Vaccines Completed 06/17/2023, 12/29/2022 Medical Devices Implanted Type Area Track Sweeper Device Identifier Shelf Expiration Date Model / [...] VIRAL HEPATITIS PROFILE Routine 03/19/2015 3:55 PM DIRECTOR FUNDS DEVELOPMENT from Last 3 Months or Most Recently Relevant to Health Maintenance Results * (ABNORMAL) Sedimentation Rate (07/28/2023 8:38 AM CDT) Sedimentation Rate, B 28(H) 2 - 22 mm/h 07/28/2023 10:34 AM CDT DTL Blood (Blood, Venous) 07/28/2023 8:38 AM CDT 07/28/2023 9:01 AM CDT Jorge Polo APRNNSandra LAB BLOOD ADD-ON [facility] [address] [place] [address], [facility] DTL [facility] [address] [place] [address] * CBC with Differential, Blood (07/28/2023 8:38 [...] 8:38 AM CDT 07/28/2023 9:01 AM CDT Jorge Polo APRNN.P. LAB BLOOD ADD-ON [facility] [address] [place] [address], [facility] 200 [place] [address] [facility] 200 [place] [address] * (ABNORMAL) CRP (C-Reactive Protein) (07/28/2023 8:38 AM CDT) C-Reactive Protein (CRP), S 65.5(H) <5.0 mg/L 07/28/2023 9:34 AM CDT DTL Blood (Blood, Venous) 07/28/2023 8:38 AM CDT 07/28/2023 9:15 AM CDT Karlene Polo APRN.N.P. LAB BLOOD ADD-ON Performing Organization Address City/[facility]/ZIP Co de Phone Number [facility] [address] [place] [address], [facility] 200 [place] [address] * AST (Aspartate Aminotransferase) (07/28/2023 8:38 AM CDT) Aspartate Aminotransferase (AST), S 30 8 - 43 U/L 07/28/2023 9:34 AM CDT DTL Blood (Blood, Venous) 07/28/2023 8:38 AM CDT 07/28/2023 9:15 AM CDT Karlene Polo APRN.N.P. LAB BLOOD ADD-ON [facility] [address] [place] [address], [facility] 200 [place] [address] * Creatinine with Estimated GFR (07/28/2023 8:38 AM CDT) Creatinine 0.93 0.59 - 1.04 mg/dL 07/28/2023 9:34 AM CDT DTL Estimated GFR (eGFR) 74 >=60 mL/min/BSA 07/28/2023 9:34 AM CDT DTL Comment: Estimated GFR calculated using the 2020 CKD_EPI creatinine equation. Blood (Blood, Venous) 07/28/2023 8:38 AM CDT 07/28/2023 9:15 AM CDT Jorge Polo APRNNSandra LAB BLOOD ADD-ON Performing Organization Address City/[facility] Co de Phone Number [facility] 200 [place] [address], [facility] DTL [facility] 200 [place] [address] * Chronic Hepatitis Profile (03/19/2015 3:55 PM DIRECTOR FUNDS DEVELOPMENT) HBs Antigen, S Negative Negative [facility] HBs Antibody,S Negative Unvaccinated : Negative; Vaccinated: Positive [facility] Comment:Patient is presumed to be not immune to infection with HBV. HCV Ab, S Negative Negative [facility] Comment:Qtuokf-iq-ylwmck rat io is <1.00. HBs Antibody, Quantitative, S <5.0 Unvaccinated : <5.0; Vaccinated: >=12.0 MIU/ML [facility] HBc Total Ab, S Negative Negative [facility] 03/19/2015 3:55 PM DIRECTOR FUNDS DEVELOPMENT 03/19/2015 3:55 PM DIRECTOR FUNDS DEVELOPMENT Tracy Yusuf LAB MICROBIOLOGY - BLOOD ORDERABLES Performing Organization Address City/[facility] Co de Phone Number [facility] [address] from Last 3 Months or Most Recently Relevant to Health Maintenance Additional Health Concerns Infection Onset Date Last Indicated Protective Environment 09/28/2022 3 Care Teams Apple Checker Relationship Specialty Start Date End Date Elsewhere, Pcp PCP - General Internal Medicine 10/22/19
--- OUTSIDE RECORDS SUMMARY | 2023-10-11 12:16 | XMS_ITS ---
Author Organization [facility] Address [address] [place] [address] Care Team Providers Care Journeyman Apprentice Electricians Name Role Phone Unavailable Unavailable Unavailable Surgery Details Not on file Complications Check Surgery Details section. Procedure Estimated Blood Loss Check Surgery Details section. Procedure Findings Check Surgery Details section. Procedure Specimens Taken Check Surgery Details section.
--- OUTSIDE RECORDS SUMMARY | 2023-10-11 12:16 | XMS_ITS | Encounter Summary ---
Author Organization [facility] Address [address] [place] [address] Care Team Providers Care Manager Client Service Name Role Phone Elsewhere, Pcp Primary Care Provider Unavailabl e Encounter Details Date Type Department Care Team (Latest Contact Info) Description 07/28/2023 7:20 AM CDT - 07/28/2023 11:59 PM CDT Hospital Encounter Department of Laboratory Medicine and Pathology, [facility], in [place], [place] [address] [place] [phone] Velma Munson, LONG, C.N.P. [address] [place] [phone] Arthritis Inflammatory (HCC) Discharge Disposition: Home or Self Care Social History Tobacco Use Types Packs/Day Years Used Date Smoking Tobacco: Never Smokeless Tobacco: Never Alcohol Use Standard Drinks/Week Comments Not Currently 1 (1 standard drink = 0.6 oz pur e alcohol) [facility] Utilities Answer Date Recorded In the past 12 months has [employer], gas, oil, or water [employer] threatened to shut off services in your [...] often do you attend chur ch or yazdanism services? More than 4 times per year [...] Date Recorded PHQ-2 Score 3 10/04/2018 [facility] - Occupational [...] Date Recorded Employment status Working with temporary [employer] 07/28/2023 Housing Stability Answer Date Recorded What is your living situation today? I have a [facility] place to live 07/28/2023 Education Answer [...] tablet Take 84 mg by mouth daily. methotrexate 25 mg/mL injectionIndications: Arthritis Inflammatory (HCC) Inject 1 mL (25 mg total) under the skin once a week. 12 mL 1 07/28/2023 modafiniL (PROVIGIL) 100 mg tablet Take 100 [...] with Differential, Blood (07/28/2023 8:38 AM CDT) [facility] Hemoglobin 12.6 11.6 - 15.0 g/dL 07/28/2023 [...] C.N.P. LAB BLOOD ADD-ON Performing Organization Address City/[facility]/ZIP Co de Phone Number [facility] [address] [place] [address], [facility] [address] [place], [place] [phone] [place] [address] 200 [place] [address] * Creatinine with Estimated GFR (07/28/2023 8:38 AM CDT) Creatinine 0.93 0.59 - 1.04 mg/dL 07/28/2023 9:34 AM CDT DTL Estimated GFR (eGFR) 74 >=60 mL/min/BSA 07/28/2023 9:34 AM CDT DTL Comment: Estimated GFR calculated using the 2020 CKD_EPI creatinine equation. Blood (Blood, Venous) 07/28/2023 8:38 AM CDT 07/28/2023 9:15 AM CDT Velma Munson APRN, C.N.P. LAB BLOOD ADD-ON [facility] [address] [place] [address], [facility] 200 [place] [address] * AST (Aspartate Aminotransferase) (07/28/2023 8:38 AM CDT) Aspartate Aminotransferase (AST), S 30 8 - 43 U/L 07/28/2023 9:34 AM CDT DTL Blood (Blood, Venous) 07/28/2023 8:38 AM CDT 07/28/2023 9:15 AM CDT Jorge Polo APRNN.P. LAB BLOOD ADD-ON [facility] [address] [place] [address], [facility] [address] [place] [address] * (ABNORMAL) CRP (C-Reactive Protein) (07/28/2023 8:38 AM CDT) C-Reactive Protein (CRP), S 65.5(H) <5.0 mg/L 07/28/2023 9:34 AM CDT DTL Blood (Blood, Venous) 07/28/2023 8:38 AM CDT 07/28/2023 9:15 AM CDT Jorge Polo APRNN.P. LAB BLOOD ADD-ON Performing Organization Address City/[facility]/ZIP Co de Phone Number [facility] [address] [place] [address], [facility] [address] [place] [address] * (ABNORMAL) Sedimentation Rate (07/28/2023 8:38 AM CDT) Sedimentation Rate, B 28(H) 2 - 22 mm/h 07/28/2023 10:34 AM CDT DTL Blood (Blood, Venous) 07/28/2023 8:38 AM CDT 07/28/2023 9:01 AM CDT Karlene Polo APRN.N.P. LAB BLOOD ADD-ON [facility] [address] [place] [address], [facility] [address] [place] [address] documented in this encounter Visit Diagnoses Diagnosis Arthritis Inflammatory (HCC) documented in this encounter Additional Health Concerns Infection Onset Date Last Indicated Resolved Time Protective Environment 09/28/2022 09/28/2022 Assessment Noted Time PHQ-9 Depression Total Score: 15 018 1:00 PM EMERGENCY DISPATCH OPERATOR documented as of this encounter Care Teams Manager Client Service Relationship Specialty Start Date End Date Elsewhere, Pcp PCP - General Internal Medicine 10/22/19 documented as of this encounter
--- OUTSIDE RECORDS SUMMARY | 2023-10-11 12:17 | XMS_ITS | Clinical Summary ---
Author Organization [facility] Address [address] [place] [address] Care Team Providers Care Line Haul Owner Operator Name Role Phone Unavailable Primary Care [...] for each transition of care or referral. [facility] Allerg[facility] Active Allergy Reactions Criticality Noted Date [...] as needed for Anxiety. Active aluminum-magnesium antacid-diphenhydr PIEZP-lzrijmhvc-qh statin (MAGIC MOUTHWASH) suspension Swish and spit [...] 12/24/2020, Additional history exists Influenza (Season Ended) 2024 022, 03/25/2021, 01/28/2020, Additional history exists DTaP/Tdap/Td [...]
--- OUTSIDE RECORDS SUMMARY | 2023-10-11 12:17 | XMS_ITS | Encounter Summary ---
Author Organization [facility] Address [address] [place] [address] Care Team Providers Care Orthotic Fitter Name Role Phone Elsewhere, Pcp Primary Care Provider Unavailabl e Reason for Referral * Outpatient (Routine) - Authorized Specialty Diagnoses / Procedures Referred By Contac t Referred To Contact Rheumatology Velma Munson APRN, C.N.P. [address] [place] [phone] [facility] Referral ID Status Reason Start Date Expiration Date V isits Requested Visits Authorized [id number] Authorized 07/28/2023 01/26/2025 1 1 Reason for Visit * Outpatient (Routine) - Closed Specialty Diagnoses / Procedures Referred By Contac t Referred To Contact Rheumatology Diagnoses . Velma Munson APRN, C.N.P. [address] [place] [phone] [facility] Referral ID Status Reason Start Date Expiration Date Visits Re quested Visits Authorized [id number] Closed 09/30/2022 09/29/2025 1 1 Encounter Details Date Type Department Care Team (Latest Contact Info) Description 07/28/2023 9:30 AM CDT Office Visit Division of Rheumatology in [place], [place] [address] [place] [phone] Velma Munson APRN, C.N.P. [address] [place] [phone] Arthritis Rheumatoid (HCC) (Primary Dx); Arthritis Inflammatory (HCC) Social History Tobacco Use Types Packs/Day Years Used Date Smoking Tobacco: Never Smokeless Tobacco: Never Alcohol Use Standard Drinks/Week Comments Not Currently 1 (1 standard drink = 0.6 oz pur e alcohol) [facility] Utilities Answer Date Recorded In the past 12 months has e [employer], gas, oil, or water [employer] threatened to shut off services in your [...] Never 11/16/2021 How often do you attend [facility] or cheondoism services? More than 4 times per year 11/16/2021 Do you belong to any clubs o r organizations such as pentecostalism groups, unions, fraternal [...] Answer Date Recorded PHQ-2 Score 3 10/04/2018 [facility] - Occupational Stress Questionnaire Answer Date [...] your living situation today? I have a [facility] place to live 07/28/2023 Education Answer Date [...] of August when she is back in [facility]. They are planning on putting Botox by [...] global assessment (0-100) 4 50 77 8 Tube Mill Operator global assessment (0-100) 20 30 50 15 ESR (mm/h) -- -- 5 28 CRP (mg/L) -- -- 5.1 65.5 Disease Activity Score 28 using ESR (SWW36-VQC) -- -- 3.28 3.56 Disease Activity Score 28 using CRP (ZQC68-SNF) -- -- 3.76 3.7 Clinical Disease Activity [...] Depression Total Score: 15 018 1:00 PM SOUND ENGINEERING TECHNICIAN documented as of this encounter Care Teams Orthotic Fitter Relationship Specialty Start Date End Date Elsewhere, Pcp PCP - General Internal Medicine 10/22/19 documented as of this encounter
--- OUTSIDE RECORDS SUMMARY | 2023-10-11 12:17 | XMS_ITS | Encounter Summary ---
Author Organization [facility] Address [address] [place] [address] Care Team Providers Care Cashier Office Name Role Phone Elsewhere, Pcp Primary Care Provider Unavailabl e Reason for Visit * Reason Onset Date Comments Labs Only 06/21/2023 Encounter Details Date Type Department Care Team (Late st Contact Info) Description 06/21/2023 Clinical Communication Division of Rheumatology in [place], [place] [address] [place] [phone] Velma Munson, DOPE HEATER, C.N.P. [address] [place] [phone] Labs Only Social History Tobacco Use Types [...] often do you attend chur ch or anglican services? More than 4 times per year [...] to pt ICD-10/DX: Labs needed: Sedimentation Rate [NUZ636] CBC with Differential, Blood [VUO150] CRP (C-Reactive Protein) [WMC461] Creatinine with Estimated GFR [LAB66] AST (Aspartate Aminotransferase) [DJK209] FICATION MANAGER documented in this encounter Plan of Treatment Not on file documented as of this encounter Visit Diagnoses Not on filedocumented in this encounter Additional Health Concerns Infection Onset Date Last Indicated Resolved Time Protective Environment 09/28/2022 09/28/2022 Assessment Noted Time PHQ-9 Depression Total Score: 15 04/21/ 018 1:00 PM VERIFICATION MANAGER documented as of this encounter Care Teams Cashier Office Relationship Specialty Start Date End Date Elsewhere, Pcp PCP - General Internal Medicine 10/22/19 documented as of this encounter
--- OUTSIDE RECORDS SUMMARY | 2023-10-11 12:17 | XMS_ITS | Encounter Summary ---
Author Organization [facility] Address [address] [place] [address] Care Team Providers Care New Car Make Ready Worker Name Role Phone Elsewhere, Pcp Primary Care Provider Unavailabl e Reason for Visit * Reason Onset Date Comments Pre-visit Testing Orders 07/27/2023 For bessie orrow Encounter Details Date Type Department Care Team (Latest Contact Info) Description 07/27/2023 Clinical Communication Division of Rheumatology in [place], [place] [address] [place] [phone] Velma Munson, LONG, C.N.P. [address] [place] [phone] Pre-visit Testing Orders (For tomorr) Social History Tobacco Use Types Packs/Day Years Used Date Smoking Tobacco: Never Smokeless Tobacco: Never Alcohol Use Standard Drinks/Week Comments Not Currently 1 (1 standard drink = 0.6 oz pur e alcohol) [facility] Utilities Answer Date Recorded In the past 12 months has [facility] [employer] gas, oil, or water [employer] threatened to shut off services in your [...] How often do you attend chur or hindu services? More than 4 times per year [...] Answer Date Recorded PHQ-2 Score 3 10/04/2018 [facility] - [...] Date Recorded Employment status Working with temporary [employer] 07/28/2023 Housing Stability Answer Date Recorded What is your living situation today? I have a [facility] place to live 07/28/2023 Education [...] - 6.45 x10(9)/L 07/28/2023 9:22 AM CDT PM Lymphocytes 1.42 0.95 - 3.07 x10(9)/L 07/28/2023 9:22 AM CDT DTL Monocytes 0.55 0.26 - 0.81 x10(9)/L 07/28/2023 9:22 AM CDT DTL Eosinophils 0.03 0.03 - 0.48 x10(9)/L 07/28/2023 9:22 AM CDT DTL Basophils <0.03 0.01 - 0.08 x10(9)/L 07/28/2023 9:22 AM CDT DTL Blood (Blood, Venous) 07/28/2023 8:38 AM CDT 07/28/2023 9:01 AM CDT Karlene Polo APRN.N.P. LAB BLOOD ADD-ON [facility] [address] [place] [address], [facility] DTL [facility] [address] [place] [place] [phone] [place] [address] [place] [address] * Creatinine with Estimated GFR (07/28/2023 8:38 AM CDT) Creatinine 0.93 0.59 - 1.04 mg/dL 07/28/2023 9:34 AM CDT DTL Estimated GFR (eGFR) 74 >=60 mL/min/BSA 07/28/2023 9:34 AM CDT DTL Comment: Estimated GFR calculated using the 2020 CKD_EPI creatinine equation. Blood (Blood, Venous) 07/28/2023 8:38 AM CDT 07/28/2023 9:15 AM CDT Velma Munson APRN, Karlene.N.P. LAB BLOOD ADD-ON [facility] [address] [place] [address] * AST (Aspartate Aminotransferase) (07/28/2023 8:38 AM CDT) Aspartate Aminotransferase (AST), S 30 8 - 43 U/L 07/28/2023 9:34 AM CDT DT Blood (Blood, Venous) 07/28/2023 8:38 AM CDT 07/28/2023 9:15 AM CDT Velma Munson APRN, C.N.P. LAB BLOOD ADD-ON [facility] [address] 200 [place] [address] * (ABNORMAL) CRP (C-Reactive Protein) (07/28/2023 8:38 AM CDT) C-Reactive Protein (CRP), S 65.5(H) <5.0 mg/L 07/28/2023 9:34 AM CDT DTL Blood (Blood, Venous) 07/28/2023 8:38 AM CDT 07/28/2023 9:15 AM CDT Velma Munson APRN, Karlene.N.P. LAB BLOOD ADD-ON [facility] [address] [place] [address] * (ABNORMAL) Sedimentation Rate (07/28/2023 8:38 AM CDT) Sedimentation Rate, B 28(H) 2 - 22 mm/h 07/28/2023 10:34 AM CDT DTL Blood (Blood, Venous) 07/28/2023 8:38 AM CDT 07/28/2023 9:01 AM CDT Velma Munson APRN, C.N.P. LAB BLOOD ADD-ON [facility] [address] [address], [facility] [address] documented in this encounter Visit Diagnoses Diagnosis Arthritis Inflammatory (HCC)- Primary documented in this encounter Additional Health Concerns Infection Onset Date Last Indicated Resolved Time Protective Environment 09/28/2022 09/28/2022 Assessment Noted Time PHQ-9 Depression Total Score: 15 018 1:00 PM OYSTER SHIPPER documented as of this encounter Care Teams New Car Make Ready Worker Relationship Specialty Start Date End Date Elsewhere, Pcp PCP - General Internal Medicine 10/22/19 documented as of this encounter
--- OUTSIDE RECORDS SUMMARY | 2023-10-11 12:17 | XMS_ITS | Encounter Summary ---
Author Organization [facility] Address [address] [place] [address] Care Team Providers Care Adaptive Physical Educator Name Role Phone Elsewhere, Pcp Primary Care Provider Unavailabl e Reason for Visit * Reason Onset Date Comments Previsit Preparation 07/27/2023 RAQUEL DD Encounter Details Date Type Department Care Team (Latest Contact Info) Description 07/27/2023 7:15 AM CDT Clinical Communication Virtual Review in [place], [place] 200 [place] [phone] Previsit Preparation (RAQUEL DD) Social History Tobacco Use Types Packs/Day Years Used Date Smoking Tobacco: Never Smokeless Tobacco: Never Tobacco Cessation:Counseling Given: Not Answered Alcohol Use Standard Drinks/Week Comments Not Currently 1 (1 standard drink = 0.6 oz pur e alcohol) [facility] Utilities Answer Date Recorded In the past 12 months has e [employer], gas, oil, or water [employer] threatened to shut off services in your [...] often do you attend chur ch or church services? More than 4 times [...] Answer Date Recorded PHQ-2 Score 3 10/04/2018 [facility] Questionnaire Answer Date [...] your living situation today? I have a [facility] place to live 07/28/2023 Education Answer Date [...] Depression Total Score: 15 018 1:00 PM DRYING UNIT FELTING MACHINE OPERATOR documented as of this encounter Care Teams Adaptive Physical Educator Relationship Specialty Start Date End Date Elsewhere, Pcp PCP - General Internal Medicine 10/22/19 documented as of this encounter
== END 2023-09-21 15:10 | disposition home or self-care (01) ==
LOC: NFLDREF 10-11 12:14
PROVIDERS: PCP Internal Medicine; Referring Provider Internal Medicine; Visit Provider Internal Medicine
DX: R39.9 Unspecified symptoms and signs involving the genitourinary system (principal); F90.9 Attention-deficit hyperactivity disorder, unspecified type; G47.00 Insomnia, unspecified; L80 Vitiligo; G43.909 Migraine, unspecified, not intractable, without status migrainosus; N39.0 Urinary tract infection, site not specified
CPT/HCPCS: 87086; 87186

== ENCOUNTER 2023-11-16 08:14 | Outpatient (CLI) | payer BC, SELFPAY ==
--- OUTSIDE RECORDS SUMMARY | 2023-11-14 14:31 | XMS_ITS | Clinical Summary ---
Author Organization [facility] Address [place], [place] [address] Care Team Providers Care Bus Or Truck Garage Mechanic Name Role Phone Katerina Contreras Unavailable Rohan [...] nasal solution (FLONASE)Indicati ons:Sinus pressure Inhale 1 [place] into both nostrils once daily. 1 Bottle [...] dise ase (HC). Has seen Rheumatology at [place]. 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 stable. last noted on MRI 2013 in [place] 08/23/2016 Attention deficit hyperactiv ity disorder (ADHD), [...] 08/15/2023 1, 08/14/2020, 01/14/2015 (Completed outside of [facility]) Influenza for age 50-64 01/01/2024 01/31/20 17, 02/09/2016, 02/09/2016, Additional history exists Tetanus booster 07/11/2024 07/11/2014, 07/11/2014 Colonoscopy through age 75 11/11/2024 11/11/2014 Tdap Completed 07/11/2014, 07/11/2014 Pneumococcal series for age 6-64 Aged Out No longer eligible based on patient's age to complete this topic Procedures Procedure Name Priority Date/Time Associated Diagnosis Comments COMMERCIAL CRABBER THIN PREP PAP SCREEN IMAGED Routine 08/14/2020 12:00 PM CDT SCAN-MAMMOGRAPHY REPORT 08/11/2017 12:00 AM CDT from Last 3 Months or Most Recently Relevant to Health Maintenance Results * COMMERCIAL CRABBER THIN PREP PAP SCREEN IMAGED (08/14/2020 12:00 PM CDT) Case Report Gynecologic Cytology Report ? Case: [id number] ? Authorizing Provider: ??Kelly Alba ??Collected: ? 08/14/2020 1200 ? M, MD ? Ordering Location: ? [facility] ?Received: ?08/15/2020 0925 ? First Screen: ?Larry Verma ? Specimen: ?COMMERCIAL CRABBER ThinPrep Vial Screening, Cervical/Vaginal ? 08/22/2020 2:38 PM CDT [facility] INTERPRETATION/ RESULT NEGATIVE FOR INTRAEPITHELIAL LESION OR MALIGNANCY (NIL) (none) 08/22/2020 2:38 PM CDT [facility] IMEN ADEQUACY Satisfactory for evaluation Endocervical component present 08/22/2020 2:38 PM CDT [facility] HPV REQUEST HPV and PAP 08/22/2020 2:38 PM CDT [facility] Date of LMP 08/07/2020 08/22/2020 2:38 PM CDT [facility] Last Pap Date 02/02/2013 08/22/2020 2:38 PM CDT [facility] Last Pap Result NIL 2:38 PM CDT [facility] Additional Information 08/22/2020 2:38 PM CDT [facility] Comment: Interpreted at [facility], Central Laboratory - [address], [place] [address] Automated Review Successful 08/22/2020 2:38 PM CDT [facility] Comment:Specimen processed s uccessfully by automated business analyst intern device, ThinPrep Imaging System, [employer] ANCILLARY TESTING COMMERCIAL CRABBER HPV Ordered, Please see separate report 08/22/2020 2:38 PM CDT [facility] Note The pap test is [...] and malignant lesions. 08/22/2020 2:38 PM CDT [facility] Other (Cervical/Vagina l) 08/14/2020 12:00 PM CDT 08/15/2020 9:25 AM CDT Kelly Alba MD PATHOLOGY/ CYTOLOGY [facility]TRAL LABORAT[facility] [address] [place] [address], * SCAN-MAMMOGRAPHY REPORT (08/11/2017 12:00 AM CDT) Anatomical Region Laterality Modality Other Scanner OTHER from Last 3 Months or Most Recently Relevant to Health Maintenance Care Teams Bus Or Truck Garage Mechanic Relationship Specialty Start Date End Date Pcp, No . PCP - General 02/28/19 Katerina Contreras Slagger 07/21/16
--- OUTSIDE RECORDS SUMMARY | 2023-11-14 14:31 | XMS_ITS | Clinical Summary ---
Author Organization [facility] Address [address] [place] [address] Care Team Providers Care Purchasing Assistant Name Role Phone Unavailable Primary Care Provider [...] for each transition of care or referral. [facility] Allerg[facility] Active Allergy Reactions Criticality Noted Date [...] as needed for Anxiety. Active aluminum-magnesium antacid-diphenhydr KMYKP-yxgwakifb-fj statin (MAGIC MOUTHWASH) suspension Swish and spit [...] 11/13/2021, 08/06/2021, 12/24/2020, Additional history exists Influenza (#1) 2024 01/31/2022, 03/03, 01/28/2020, Additional history exists DTaP/Tdap/Td [...]
--- NOTE | 2023-11-16 08:15 | MR_ITS ---
[address] [address] Phone:?[phone] Fax:?[phone] Referring Physician Information: Elvin Mace M.D. [address] [facility] [address] Phone:?[phone] Fax:?[phone] Patient:?Waleska Diaz D.O.B:?1970 Sex:?Female Phone:?[phone] [facility] MRN:?[id number] Exam Date:?11/16/2023 EXAM: MRI EXAMINATION OF THE LEFT HAND CLINICAL INFORMATION: Evaluate soft tissue mass. No specific injury. TECHNICAL INFORMATION: Axial PD fat saturation. Coronal T1 and STIR. Axial, sagittal and coronal PD and T2-weighted images acquired. There are no prior studies available for comparison. INTERPRETATION: Bones and joints: Approximate 1.1 cm segment of osseous cystic change within the long finger metacarpal head and neck. No occult fracture or osseous contusion. No abnormal joint effusion. No discrete osteochondral lesion is seen. No other abnormal bone marrow edema pattern is identified. Tendons: The flexor and extensor tendons are seen to be intact. No evidence for a tendon tear or any appreciable changes of tendinopathy. There is no evidence for tenosynovitis. Other soft tissues: Series 5 image 9 as well as series 4 images 12 and 13 demonstrate an approximate 6 mm lobulated high T2 signal intensity soft tissue lesion situated dorsal/radial to the level of the head of the small finger proximal phalanx. No other soft tissue cyst, mass or fluid collection. CONCLUSION: 1. There is an approximate 6 mm lobulated high T2 signal intensity soft tissue lesion situated dorsal/radial to the head of the small finger proximal phalanx. This is difficult to further characterize given its small size. This may represent a ganglion cyst, although a small vascular malformation could not be entirely excluded. KES Electronically signed on 11/16/2023 12:33:00 PM by Arnold Bowen M.D.
--- OUTSIDE RECORDS SUMMARY | 2023-11-16 08:16 | XMS_ITS | Clinical Summary ---
Author Organization [facility] Address [place], [place] [address] Care Team Providers Care Conciliator Name Role Phone Katerina Contreras Unavailable Rohan [...] nasal solution (FLONASE)Indicati ons:Sinus pressure Inhale 1 [place] into both nostrils once daily. 1 Bottle [...] dise ase (HC). Has seen Rheumatology at [place]. 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 stable. last noted on MRI 2013 in [place] 08/23/2016 Attention deficit hyperactiv ity disorder (ADHD), [...] 08/15/2023 1, 08/14/2020, 01/14/2015 (Completed outside of [facility]) Influenza for age 50-64 01/01/2024 01/31/20 17, 02/09/2016, 02/09/2016, Additional history exists Tetanus booster 07/11/2024 07/11/2014, 07/11/2014 Colonoscopy through age 75 11/11/2024 11/11/2014 Tdap Completed 07/11/2014, 07/11/2014 Pneumococcal series for age 6-64 Aged Out No longer eligible based on patient's age to complete this topic Procedures Procedure Name Priority Date/Time Associated Diagnosis Comments MASON APPRENTICE THIN PREP PAP SCREEN IMAGED Routine 08/14/2020 12:00 PM CDT SCAN-MAMMOGRAPHY REPORT 08/11/2017 12:00 AM CDT from Last 3 Months or Most Recently Relevant to Health Maintenance Results * MASON APPRENTICE THIN PREP PAP SCREEN IMAGED (08/14/2020 12:00 PM CDT) Case Report Gynecologic Cytology Report ? Case: [id number] ? Authorizing Provider: ??Kelly Alba ??Collected: ? 08/14/2020 1200 ? M, MD ? Ordering Location: ? [facility] ?Received: ?08/15/2020 0925 ? First Screen: ?Larry Verma ? Specimen: ?MASON APPRENTICE ThinPrep Vial Screening, Cervical/Vaginal ? 08/22/2020 2:38 PM CDT [facility] INTERPRETATION/ RESULT NEGATIVE FOR INTRAEPITHELIAL LESION OR MALIGNANCY (NIL) (none) 08/22/2020 2:38 PM CDT [facility] IMEN ADEQUACY Satisfactory for evaluation Endocervical component present 08/22/2020 2:38 PM CDT [facility] HPV REQUEST HPV and PAP 08/22/2020 2:38 PM CDT [facility] Date of LMP 08/07/2020 08/22/2020 2:38 PM CDT [facility] Last Pap Date 02/02/2013 08/22/2020 2:38 PM CDT [facility] Last Pap Result NIL 2:38 PM CDT [facility] Additional Information 08/22/2020 2:38 PM CDT [facility] Comment: Interpreted at [facility], Central Laboratory - [address], [place] [address] Automated Review Successful 08/22/2020 2:38 PM CDT [facility] Comment:Specimen processed s uccessfully by automated life sciences teacher device, ThinPrep Imaging System, [employer] ANCILLARY TESTING MASON APPRENTICE HPV Ordered, Please see separate report 08/22/2020 2:38 PM CDT [facility] Note The pap test is [...] and malignant lesions. 08/22/2020 2:38 PM CDT [facility] Other (Cervical/Vagina l) 08/14/2020 12:00 PM CDT 08/15/2020 9:25 AM CDT Kelly Alba MD PATHOLOGY/ CYTOLOGY [facility]-CENTRAL LABORATORY [address] [place] [address], * SCAN-MAMMOGRAPHY REPORT (08/11/2017 12:00 AM CDT) Anatomical Region Laterality Modality Other Scanner OTHER from Last 3 Months or Most Recently Relevant to Health Maintenance Care Teams Conciliator Relationship Specialty Start Date End Date Pcp, No . PCP - General 02/28/19 Katerina Contreras Scientific Affairs Manager 07/21/16
--- OUTSIDE RECORDS SUMMARY | 2023-11-16 08:16 | XMS_ITS | Clinical Summary ---
Author Organization [facility] Address [address] [place] [address] Care Team Providers Care Second Mate Name Role Phone Unavailable Primary Care Provider [...] each transition of care or referral. [email or web address] Allergies Active Allergy Reactions Criticality Noted Date [...] as needed for Anxiety. Active aluminum-magnesium antacid-diphenhydr ULWWX-jkviyqnuq-ip statin (MAGIC MOUTHWASH) suspension Swish and spit [...]
== END 2023-11-16 08:15 | disposition home or self-care (01) ==
LOC: MRI 08:15
PROVIDERS: PCP Internal Medicine; Visit Provider Orthopaedic Surgery
DX: M79.89 Other specified soft tissue disorders (principal); R22.32 Localized swelling, mass and lump, left upper limb
CPT/HCPCS: 73218

== ENCOUNTER 2023-12-21 13:37 | Outpatient (CLI) | payer BC, SELFPAY ==
--- OUTSIDE RECORDS SUMMARY | 2023-12-21 18:50 | XMS_ITS | Clinical Summary ---
Author Organization [facility] Address [address] [place] [address] Care Team Providers Care Candy Spreader Helper Name Role Phone Unavailable Primary Care Provider [...] for each transition of care or referral. [facility] Allergies Active Allergy Reactions Criticality Noted Date [...] as needed for Anxiety. Active aluminum-magnesium antacid-diphenhydr YOPEH-eoixdikpe-ub statin (MAGIC MOUTHWASH) suspension Swish and spit [...]
--- OUTSIDE RECORDS SUMMARY | 2023-12-21 18:50 | XMS_ITS | Clinical Summary ---
Author Organization [facility] Address [place], [place] [address] Care Team Providers Care Litigation Attorney Name Role Phone Katerina Contreras Unavailable Rohan [...] nasal solution (FLONASE)Indicati ons:Sinus pressure Inhale 1 [place] into both nostrils once daily. 1 Bottle [...] dise ase (HC). Has seen Rheumatology at [place]. 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 stable. last noted on MRI 2013 in [place] 08/23/2016 Attention deficit hyperactiv ity disorder (ADHD), [...] 1, 08/14/2020, 01/14/2015 (Completed outside of [facility]) Influenza for age 50-64 01/01/2024 01/31/20 17, 02/09/2016, 02/09/2016, Additional history exists Tetanus booster 07/11/2024 07/11/2014, 07/11/2014 Colonoscopy through age 75 11/11/2024 11/11/2014 Tdap Completed 07/11/2014, 07/11/2014 Pneumococcal series for age 6-64 Aged Out No longer eligible based on patient's age to complete this topic Procedures Procedure Name Priority Date/Time Associated Diagnosis Comments WET MACHINE TENDER THIN PREP PAP SCREEN IMAGED Routine 08/14/2020 12:00 PM CDT SCAN-MAMMOGRAPHY REPORT 08/11/2017 12:00 AM CDT from Last 3 Months or Most Recently Relevant to Health Maintenance Results * WET MACHINE TENDER THIN PREP PAP SCREEN IMAGED (08/14/2020 12:00 PM CDT) Case Report Gynecologic Cytology Report ? Case: [id number] ? Authorizing Provider: ??Kelly Alba ??Collected: ? 08/14/2020 1200 ? M, MD ? Ordering Location: ? [facility] ?Received: ?08/15/2020 0925 ? First Screen: ?Larry Verma ? Specimen: ?WET MACHINE TENDER ThinPrep Vial Screening, Cervical/Vaginal ? 08/22/2020 2:38 PM CDT [facility] INTERPRETATION/ RESULT NEGATIVE FOR INTRAEPITHELIAL LESION OR MALIGNANCY (NIL) (none) 08/22/2020 2:38 PM CDT [facility] IMEN ADEQUACY Satisfactory for evaluation Endocervical component present 08/22/2020 2:38 PM CDT [facility] HPV REQUEST HPV and PAP 08/22/2020 2:38 PM CDT [facility] Date of LMP 08/07/2020 08/22/2020 2:38 PM CDT [facility] Last Pap Date 02/02/2013 08/22/2020 2:38 PM CDT [facility] Last Pap Result NIL 2:38 PM CDT [facility] Additional Information 08/22/2020 2:38 PM CDT [facility] Comment: Interpreted at [facility], Central Laboratory - [address], [place] [address] Automated Review Successful 08/22/2020 2:38 PM CDT [facility] Comment:Specimen processed s uccessfully by automated programmer developer device, ThinPrep Imaging System, [employer] ANCILLARY TESTING WET MACHINE TENDER HPV Ordered, Please see separate report 08/22/2020 2:38 PM CDT [facility] Note The pap test is a [...] and malignant lesions. 08/22/2020 2:38 PM CDT [facility] Other (Cervical/Vagina l) 08/14/2020 12:00 PM CDT 08/15/2020 9:25 AM CDT Kelly Alba MD PATHOLOGY/ CYTOLOGY [facility] [address] [place] [address], * SCAN-MAMMOGRAPHY REPORT (08/11/2017 12:00 AM CDT) Anatomical Region Laterality Modality Other Scanner OTHER from Last 3 Months or Most Recently Relevant to Health Maintenance Care Teams Litigation Attorney Relationship Specialty Start Date End Date Pcp, No . PCP - General 02/28/19 Katerina Contreras Architectural Wood Model Maker 07/21/16
== END 2023-12-21 13:38 | disposition home or self-care (01) ==
LOC: NFLDREF 18:48
PROVIDERS: PCP Internal Medicine; Referring Provider Internal Medicine; Visit Provider Internal Medicine
DX: N39.0 Urinary tract infection, site not specified (principal); G47.00 Insomnia, unspecified; L80 Vitiligo; R51.9 Headache, unspecified; F90.9 Attention-deficit hyperactivity disorder, unspecified type
CPT/HCPCS: 87086; 87186

== ENCOUNTER 2024-01-25 09:46 | Outpatient (CLI) | payer BC, SELFPAY ==
--- OUTSIDE RECORDS SUMMARY | 2024-01-29 06:09 | XMS_ITS | Clinical Summary ---
Author Organization [employer] [facility] Address [place], [place] [address] Care Team Providers Care Language Teacher Name Role Phone Katerina Contreras Unavailable Rohan [...] nasal solution (FLONASE)Indicati ons:Sinus pressure Inhale 1 [place] into both nostrils once daily. 1 Bottle [...] dise ase (HC). Has seen Rheumatology at [place]. 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 stable. last noted on MRI 2013 in [place] 08/23/2016 Attention deficit hyperactiv ity disorder (ADHD), predominantly inattentive type 06/24/2016 Essential hypertension 02/23/2016 Urinary urgency 06/30/2015 Diarrhea 11/12/2014 Overview (11/12/2014): EGD 10/2014 normal, laparoscopic band present Colonoscopy [...] for age 50+ (1 of 2) 12/30/2021 Pap test for age 21-65 08/15/2023 1, 08/14/2020, 01/14/2015 (Completed outside of [facility]) COVID-19 vaccine series ( season) 2024 11/13/2021, 08/06/2021, 05/15/2020, Additional history exists Influenza for age 50-64 01/01/2024 01/31/20 17, 02/09/2016, 02/09/2016, Additional history exists Tetanus booster 07/11/2024 07/11/2014, 07/11/2014 Colonoscopy through age 75 11/11/2024 11/11/2014 Tdap Completed 07/11/2014, 07/11/2014 Pneumococcal series for age 6-64 Aged Out No longer eligible based on patient's age to complete this topic Procedures Procedure Name Priority Date/Time Associated Diagnosis Comments PUMP TECHNICIAN THIN PREP PAP SCREEN IMAGED Routine 08/14/2020 12:00 PM CDT SCAN-MAMMOGRAPHY REPORT 08/11/2017 12:00 AM CDT from Last 3 Months or Most Recently Relevant to Health Maintenance Results * PUMP TECHNICIAN THIN PREP PAP SCREEN IMAGED (08/14/2020 12:00 PM CDT) Case Report Gynecologic Cytology Report ? Case: [id number] ? Authorizing Provider: ??Kelly Alba ??Collected: ? 08/14/2020 1200 ? M, MD ? Ordering Location: ? [facility] ?Received: ?08/15/2020 0925 ? First Screen: ?Larry Verma ? Specimen: ?PUMP TECHNICIAN ThinPrep Vial Screening, Cervical/Vaginal ? 08/22/2020 2:[address] [facility] INTERPRETATION/ RESULT NEGATIVE FOR INTRAEPITHELIAL LESION OR MALIGNANCY (NIL) (none) 08/22/2020 2:[address] [facility] IMEN ADEQUACY Satisfactory for evaluation Endocervical component present 08/22/2020 2:[address] [facility] HPV REQUEST HPV and PAP 08/22/2020 2:38 PM CDT [facility] Date of LMP 08/07/2020 08/22/2020 2:38 PM CDT [facility] Last Pap Date 02/02/2013 08/22/2020 2:[address] [facility] Last Pap Result NIL 2:[address] [facility] Additional Information 08/22/2020 2:38 PM CDT [facility] Comment: Interpreted at [facility], Central Laboratory - [address], [place] [address] Automated Review Successful 08/22/2020 2:[address] [facility] Comment:Specimen processed s uccessfully by automated podiatry teacher device, ThinPrep Imaging System, [employer] ANCILLARY TESTING PUMP TECHNICIAN HPV Ordered, Please see separate report 08/22/2020 2:38 PM CDT [facility]-C ENTRAL LABORATORY Note The pap test is a [...] and malignant lesions. 08/22/2020 2:38 PM CDT [facility] [facility]-C ENTRAL LABORATORY Other (Cervical/Vagina l) 08/14/2020 12:00 PM CDT 08/15/2020 9:25 AM CDT Kelly Alba MD PATHOLOGY/ CYTOLOGY [facility] [facility]-CENTRAL LABORATORY [address] [place] [address], [place] * SCAN-MAMMOGRAPHY REPORT (08/11/2017 12:00 AM CDT) Anatomical Region Laterality Modality Other Scanner OTHER from Last 3 Months or Most Recently Relevant to Health Maintenance Care Teams Language Teacher Relationship Specialty Start Date End Date Pcp, No . PCP - General 02/28/19 Katerina Contreras Case Sealer 07/21/16
--- OUTSIDE RECORDS SUMMARY | 2024-01-29 06:09 | XMS_ITS | Clinical Summary ---
Author Organization [facility] Address [address] [place] [address] Care Team Providers Care Meter Shop Superintendent Name Role Phone Unavailable Primary Care Provider [...] for each transition of care or referral. [facility] Allerg[facility] Active Allergy Reactions Criticality Noted Date [...] as needed for Anxiety. Active aluminum-magnesium antacid-diphenhydr ESQAX-vzrcsqibn-px statin (MAGIC MOUTHWASH) suspension Swish and spit [...] of 2) 12/30/2021 COVID-19 Vaccine ( season) 2024 11/13/2021, 08/06/2021, 12/24/2020, Additional history exists Influenza [...]
== END 2024-01-25 09:47 | disposition home or self-care (01) ==
LOC: NFLDREF 01-29 06:08
PROVIDERS: PCP Internal Medicine; Referring Provider Internal Medicine; Visit Provider Internal Medicine
DX: N39.0 Urinary tract infection, site not specified (principal); M06.9 Rheumatoid arthritis, unspecified; R39.9 Unspecified symptoms and signs involving the genitourinary system
CPT/HCPCS: 87086; 87186

== ENCOUNTER 2024-01-27 08:30 | Outpatient (RCR) | payer BC, SELFPAY ==
--- NOTE | 2024-01-17 10:42 | URNOTE ---
Per Availity, prior auth is not required for Fritz ([id number])
[2024-01-18 10:03] VITALS: BP 125/84; PULSE 90; RESP 16; TEMP 37.1; O2SAT 97
[2024-01-18] MEDS: IRON SUCROSE COMPLEX 200 MG in 0.9 % SODIUM CHLORIDE 100 ml 100 ML 440 MG IVPB (10:23)
[2024-01-18 11:19] VITALS: BP 125/67; PULSE 84; RESP 16; TEMP 36.8; O2SAT 97
[2024-01-18] MEDS: SODIUM CHLORIDE 0.9 % (FLUSH) 10 ML SYRINGE IVF (13:03)
[2024-01-18] MEDS: 0.9 % SODIUM CHLORIDE 250 ml IV (13:03)
[2024-01-20 09:48] VITALS: BP 115/78; PULSE 84; RESP 16; TEMP 37; O2SAT 95
[2024-01-20] MEDS: IRON SUCROSE COMPLEX 200 MG in 0.9 % SODIUM CHLORIDE 100 ml 100 ML 440 MG IVPB (10:07)
[2024-01-20] MEDS: 0.9 % SODIUM CHLORIDE 250 ml IV (10:07)
[2024-01-20] MEDS: SODIUM CHLORIDE 0.9 % (FLUSH) 10 ML SYRINGE IVF (10:07)
[2024-01-20 10:27] VITALS: BP 108/73; PULSE 87; RESP 16; O2SAT 96
--- NOTE | 2024-01-20 10:45 | PC.NURSE ---
Pt left [facility] after 15 minutes of monitoring due to having an urgent vet appointment for her cat. Pt verbalized understanding that it was our policy and strong recommendation to wait the full 30 minutes in the case of a delayed reaction. She agreed to stay the full monitoring period with subsequent infusions.
[2024-01-23 14:39] VITALS: BP 116/76; PULSE 106; RESP 16; TEMP 36.3; O2SAT 96
[2024-01-23] MEDS: SODIUM CHLORIDE 0.9 % (FLUSH) 10 ML SYRINGE IVF (15:02)
[2024-01-23] MEDS: 0.9 % SODIUM CHLORIDE 250 ml IV (15:02)
[2024-01-23] MEDS: IRON SUCROSE COMPLEX 200 MG in 0.9 % SODIUM CHLORIDE 100 ml 100 ML 440 MG IVPB (15:04)
[2024-01-23 15:24] VITALS: BP 111/73; PULSE 93; RESP 16; O2SAT 98
[2024-01-23 15:59] VITALS: BP 109/71; PULSE 90; RESP 16; TEMP 36.7; O2SAT 97
[2024-01-25 14:42] VITALS: BP 116/78; PULSE 102; RESP 16; TEMP 36.4; O2SAT 96
[2024-01-25] MEDS: SODIUM CHLORIDE 0.9 % (FLUSH) 10 ML SYRINGE IVF (14:55)
[2024-01-25] MEDS: 0.9 % SODIUM CHLORIDE 250 ml IV (15:01)
[2024-01-25] MEDS: IRON SUCROSE COMPLEX 200 MG in 0.9 % SODIUM CHLORIDE 100 ml 100 ML 440 MG IVPB (15:02)
[2024-01-25 16:09] VITALS: BP 125/78; PULSE 74
[2024-01-27 08:50] VITALS: BP 107/73; PULSE 85; RESP 16; TEMP 36.1; O2SAT 100
[2024-01-27] MEDS: IRON SUCROSE COMPLEX 200 MG in 0.9 % SODIUM CHLORIDE 100 ml 100 ML 440 MG IVPB (09:13)
[2024-01-27] MEDS: 0.9 % SODIUM CHLORIDE 250 ml IV (09:13)
[2024-01-27] MEDS: SODIUM CHLORIDE 0.9 % (FLUSH) 10 ML SYRINGE IVF (09:13)
[2024-01-27 09:49] VITALS: BP 104/70; PULSE 77; RESP 16; O2SAT 95
== END 2024-07-16 23:59 | disposition home or self-care (01) ==
LOC: CCIC 08:30
PROVIDERS: PCP Internal Medicine; Referring Provider Internal Medicine; Visit Provider Clinical Nurse Specialist
DX: D50.9 Iron deficiency anemia, unspecified (principal)
CPT/HCPCS: 87086; 96365; 96374; J1756; J7050

== ENCOUNTER 2024-02-02 13:33 | Outpatient (CLI) | payer BC, SELFPAY ==
--- OUTSIDE RECORDS SUMMARY | 2024-02-03 09:44 | XMS_ITS | Clinical Summary ---
Author Organization [facility] [facility] Address [place], [place] [address] Care Team Providers Care Strip Stamp Straightener Name Role Phone Katerina Contreras Unavailable Rohan [...] nasal solution (FLONASE)Indicati ons:Sinus pressure Inhale 1 [place] into both nostrils once daily. 1 Bottle [...] dise ase (HC). Has seen Rheumatology at [place]. 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 stable. last noted on MRI 2013 in [place] 08/23/2016 Attention deficit hyperactiv ity disorder (ADHD), [...] 08/15/2023 1, 08/14/2020, 01/14/2015 (Completed outside of [facility]) COVID-19 vaccine series ( season) 2024 11/13/2021, [...] Procedure Name Priority Date/Time Associated Diagnosis Comments EQUIPMENT CLEANER AND TESTER THIN PREP PAP SCREEN IMAGED Routine 08/14/2020 12:00 PM CDT SCAN-MAMMOGRAPHY REPORT 08/11/2017 12:00 AM CDT from Last 3 Months or Most Recently Relevant to Health Maintenance Results * EQUIPMENT CLEANER AND TESTER THIN PREP PAP SCREEN IMAGED (08/14/2020 12:00 PM CDT) Case Report Gynecologic Cytology Report ? Case: [id number] ? Authorizing Provider: ??Kelly Alba ??Collected: ? 08/14/2020 1200 ? M, MD ? Ordering Location: ? [facility] ?Received: ?08/15/2020 0925 ? First Screen: ?Larry Verma ? Specimen: ?EQUIPMENT CLEANER AND TESTER ThinPrep Vial Screening, Cervical/Vaginal ? 08/22/2020 2:38 PM CDT [facility] INTERPRETATION/ RESULT NEGATIVE FOR INTRAEPITHELIAL LESION OR MALIGNANCY (NIL) (none) 08/22/2020 2:38 PM CDT [facility] IMEN ADEQUACY Satisfactory for evaluation Endocervical component present 08/22/2020 2:38 PM CDT [facility] HPV REQUEST HPV and PAP 08/22/2020 2:38 PM CDT [facility] Date of LMP 08/07/2020 08/22/2020 2:38 PM CDT [facility] Last Pap Date 02/02/2013 08/22/2020 2:38 PM CDT [facility] Last Pap Result NIL 2:38 PM CDT [facility] Additional Information 08/22/2020 2:38 PM CDT [facility] Comment: Interpreted at [facility], Central Laboratory - [address], [place] [address] Automated Review Successful 08/22/2020 2:38 PM CDT [facility] Comment:Specimen processed s uccessfully by automated communications supervisor device, ThinPrep Imaging System, [employer] ANCILLARY TESTING EQUIPMENT CLEANER AND TESTER HPV Ordered, Please see separate report 08/22/2020 [...] and malignant lesions. 08/22/2020 2:38 PM CDT [facility]-C ENTRAL LABORATORY Other (Cervical/Vagina l) 08/14/2020 12:00 PM CDT 08/15/2020 9:25 AM CDT Kelly Alba MD PATHOLOGY/ CYTOLOGY [facility] LABORAT[facility]-CENTRAL LABORATORY [address] [place] [address], [place] * SCAN-MAMMOGRAPHY REPORT (08/11/2017 12:00 AM CDT) Anatomical Region Laterality Modality Other Scanner OTHER from Last 3 Months or Most Recently Relevant to Health Maintenance Care Teams Strip Stamp Straightener Relationship Specialty Start Date End Date Pcp, No . PCP - General 02/28/19 Katerina Contreras Fine Arts Instructor 07/21/16
--- OUTSIDE RECORDS SUMMARY | 2024-02-03 09:44 | XMS_ITS | Clinical Summary ---
Author Organization [facility] Address [address] [place] [address] Care Team Providers Care Building Code Administrator Name Role Phone Unavailable Primary Care Provider [...] for each transition of care or referral. [facility] Allergies Active Allergy Reactions Criticality Noted Date [...] as needed for Anxiety. Active aluminum-magnesium antacid-diphenhydr LSNNG-cgpxasgjg-ii statin (MAGIC MOUTHWASH) suspension Swish and spit [...]
== END 2024-02-02 13:34 | disposition home or self-care (01) ==
LOC: NFLDREF 02-03 09:42
PROVIDERS: PCP Internal Medicine; Referring Provider Internal Medicine; Visit Provider Internal Medicine
DX: R35.0 Frequency of micturition (principal); N39.0 Urinary tract infection, site not specified; L01.00 Impetigo, unspecified
CPT/HCPCS: 87086

== ENCOUNTER 2024-02-07 08:49 | Outpatient (RCR) | payer BC, SELFPAY ==
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
== END 2024-06-06 23:59 | disposition home or self-care (01) ==
PROVIDERS: PCP Internal Medicine; Visit Provider Internal Medicine
DX: M32.9 Systemic lupus erythematosus, unspecified (principal); R53.81 Other malaise; G31.84 Mild cognitive impairment of uncertain or unknown etiology; R29.3 Abnormal posture; Z51.89 Encounter for other specified aftercare
CPT/HCPCS: 97165; 97535

== ENCOUNTER 2024-02-23 13:53 | Outpatient (CLI) | payer BC, SELFPAY ==
--- OUTSIDE RECORDS SUMMARY | 2024-02-24 11:14 | XMS_ITS | Clinical Summary ---
Author Organization [facility] Address [address] [place] [address] Care Team Providers Care Leasing Machine Tender Name Role Phone Unavailable Primary Care Provider [...] for each transition of care or referral. [facility] Active Allergy Reactions Criticality Noted Date [...] as needed for Anxiety. Active aluminum-magnesium antacid-diphenhydr TXXLL-dbynvdviv-fm statin (MAGIC MOUTHWASH) suspension Swish and spit [...]
== END 2024-02-23 13:54 | disposition home or self-care (01) ==
LOC: NFLDREF 02-24 11:07
PROVIDERS: PCP Internal Medicine; Referring Provider Internal Medicine; Visit Provider Internal Medicine
DX: R39.9 Unspecified symptoms and signs involving the genitourinary system (principal); N39.0 Urinary tract infection, site not specified
CPT/HCPCS: 87086; 87186

== ENCOUNTER 2024-02-24 09:50 | Outpatient (CLI) | payer OTHER, BC, SELFPAY ==
--- OUTSIDE RECORDS SUMMARY | 2024-02-24 09:53 | XMS_ITS | Clinical Summary ---
Author Organization [facility] Address [address] [place] [address] Care Team Providers Care Casino Manager Name Role Phone Unavailable Primary Care Provider [...] each transition of care or referral. [facility] Allergies Active Allergy Reactions Criticality Noted Date [...] as needed for Anxiety. Active aluminum-magnesium antacid-diphenhydr QGCJM-xsgentntz-xl statin (MAGIC MOUTHWASH) suspension Swish and spit [...] on patient's age to complete this topic Infant RSV Aged Out No longer eligi ble based on patient's age to complete this topic MCV4 Aged Out No longer eligi ble based on patient's age to complete this topic Pneumococcal Aged Out No longer eligi ble based on patient's age to complete this topic
--- OUTSIDE RECORDS SUMMARY | 2024-02-24 09:53 | XMS_ITS | Clinical Summary ---
Author Organization [employer] [facility] Address [place], [place] [address] Care Team Providers Care Admitting Interviewer Name Role Phone Katerina Contreras Unavailable Rohan [...] nasal solution (FLONASE)Indicati ons:Sinus pressure Inhale 1 [place] into both nostrils once daily. 1 Bottle [...] dise ase (HC). Has seen Rheumatology at [place]. 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 stable. last noted on MRI 2013 in [place] 08/23/2016 Attention deficit hyperactiv ity disorder (ADHD), [...] 08/15/2023 1, 08/14/2020, 01/14/2015 (Completed outside of [facility]) COVID-19 vaccine series ( season) 2024 [...] Procedure Name Priority Date/Time Associated Diagnosis Comments WASTE DUSTER THIN PREP PAP SCREEN IMAGED Routine 08/14/2020 12:00 PM CDT SCAN-MAMMOGRAPHY REPORT 08/11/2017 12:00 AM CDT from Last 3 Months or Most Recently Relevant to Health Maintenance Results * WASTE DUSTER THIN PREP PAP SCREEN IMAGED (08/14/2020 12:00 PM CDT) Case Report Gynecologic Cytology Report ? Case: [id number] ? Authorizing Provider: ??Kelly Alba ??Collected: ? 08/14/2020 1200 ? M, MD ? Ordering Location: ? [facility] ?Received: ?08/15/2020 0925 ? First Screen: ?Larry Verma ? Specimen: ?WASTE DUSTER ThinPrep Vial Screening, Cervical/Vaginal ? 08/22/2020 2:38 PM CDT [facility] INTERPRETATION/ RESULT NEGATIVE FOR INTRAEPITHELIAL LESION OR MALIGNANCY (NIL) (none) 08/22/2020 2:38 PM CDT [facility] IMEN ADEQUACY Satisfactory for evaluation Endocervical component present 08/22/2020 2:38 PM CDT [facility] HPV REQUEST HPV and PAP 08/22/2020 2:38 PM CDT [facility] Date of LMP 08/07/2020 08/22/2020 2:38 PM CDT [facility] Last Pap Date 02/02/2013 08/22/2020 2:38 PM CDT [facility] Last Pap Result NIL 2:38 PM CDT [facility] Additional Information 08/22/2020 2:38 PM CDT [facility] Comment: Interpreted at [facility], Central Laboratory - [address], [place] [address] Automated Review Successful 08/22/2020 2:38 PM CDT [facility] Comment:Specimen processed s uccessfully by automated real estate account executive device, ThinPrep Imaging System, [employer] ANCILLARY TESTING WASTE DUSTER HPV Ordered, Please see separate report 08/22/2020 [...] and malignant lesions. 08/22/2020 2:38 PM CDT [facility] LABORAT[facility]-C ENTRAL LABORATORY Other (Cervical/Vagina l) 08/14/2020 12:00 PM CDT 08/15/2020 9:25 AM CDT Kelly Alba MD PATHOLOGY/ CYTOLOGY [facility] [address] [place] [address], [place] * SCAN-MAMMOGRAPHY REPORT (08/11/2017 12:00 AM CDT) Anatomical Region Laterality Modality Other Scanner OTHER from Last 3 Months or Most Recently Relevant to Health Maintenance Care Teams Admitting Interviewer Relationship Specialty Start Date End Date Pcp, No . PCP - General 02/28/19 Katerina Contreras Auto Air Conditioning Apprentice 07/21/16
== END 2024-02-24 09:51 | disposition home or self-care (01) ==
PROVIDERS: PCP Internal Medicine; Visit Provider Nurse Practitioner
DX: Z57.8 Occupational exposure to other risk factors (principal); Z77.21 Contact with and (suspected) exposure to potentially hazardous body fluids; W46.0XXA Contact with hypodermic needle, initial encounter
CPT/HCPCS: 86703; 86706; 86803; 87340

== ENCOUNTER 2024-02-29 13:42 | Outpatient (CLI) | payer BC, SELFPAY ==
--- OUTSIDE RECORDS SUMMARY | 2024-03-01 08:31 | XMS_ITS | Clinical Summary ---
Author Organization [employer] [facility] Address [place], [place] [address] Care Team Providers Care Field Account Manager Name Role Phone Katerina Contreras Unavailable [...] nasal solution (FLONASE)Indicati ons:Sinus pressure Inhale 1 [place] into both nostrils once daily. 1 Bottle [...] dise ase (HC). Has seen Rheumatology at [place]. 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 Lesion of [...] 08/15/2023 1, 08/14/2020, 01/14/2015 (Completed outside of [facility]) COVID-19 vaccine series ( season) 2024 [...] Procedure Name Priority Date/Time Associated Diagnosis Comments MEDICAL DIR THIN PREP PAP SCREEN IMAGED Routine 08/14/2020 12:00 PM CDT SCAN-MAMMOGRAPHY REPORT 08/11/2017 12:00 AM CDT from Last 3 Months or Most Recently Relevant to Health Maintenance Results * MEDICAL DIR THIN PREP PAP SCREEN IMAGED (08/14/2020 12:00 PM CDT) Case Report Gynecologic Cytology Report ? Case: [id number] ? Authorizing Provider: ??Kelly Alba ??Collected: ? 08/14/2020 1200 ? M, MD ? Ordering Location: ? [facility] ?Received: ?08/15/2020 0925 ? First Screen: ?Larry Verma ? Specimen: ?MEDICAL DIR ThinPrep Vial Screening, Cervical/Vaginal ? 08/22/2020 2:38 PM CDT [facility] INTERPRETATION/ RESULT NEGATIVE FOR INTRAEPITHELIAL LESION OR MALIGNANCY (NIL) (none) 08/22/2020 2:38 PM CDT [facility] IMEN ADEQUACY Satisfactory for evaluation Endocervical component present 08/22/2020 2:38 PM CDT [facility] HPV REQUEST HPV and PAP 08/22/2020 2:38 PM CDT [facility] Date of LMP 08/07/2020 08/22/2020 2:38 PM CDT [facility] Last Pap Date 02/02/2013 08/22/2020 2:38 PM CDT [facility] Last Pap Result NIL 2:38 PM CDT [facility] Additional Information 08/22/2020 2:38 PM CDT [facility] Comment: Interpreted at [facility], Central Laboratory - [address], [place] [address] Automated Review Successful 08/22/2020 2:38 PM CDT [facility] Comment:Specimen processed s uccessfully by automated furniture associate device, ThinPrep Imaging System, [employer] ANCILLARY TESTING MEDICAL DIR HPV Ordered, Please see separate report 08/22/2020 [...] and malignant lesions. 08/22/2020 2:38 PM CDT [facility] [employer] LABORATORY-C ENTRAL LABORATORY Other (Cervical/Vagina l) 08/14/2020 12:00 PM CDT 08/15/2020 9:25 AM CDT Kelly Alba MD PATHOLOGY/ CYTOLOGY [facility] [employer]-CEN[facility]AL LABORATORY [address] [place] [address], [place] * SCAN-MAMMOGRAPHY REPORT (08/11/2017 12:00 AM CDT) Anatomical Region Laterality Modality Other Scanner OTHER from Last 3 Months or Most Recently Relevant to Health Maintenance Care Teams Field Account Manager Relationship Specialty Start Date End Date Pcp, No . PCP - General 02/28/19 Katerina Contreras Photocopier Technician 07/21/16
--- OUTSIDE RECORDS SUMMARY | 2024-03-01 08:31 | XMS_ITS | Clinical Summary ---
Author Organization [facility] Address [address] [place] [address] Care Team Providers Care Circle Edger Name Role Phone Unavailable Primary Care Provider [...] for each transition of care or referral. [facility] Allergies Active Allergy Reactions Criticality Noted Date [...] as needed for Anxiety. Active aluminum-magnesium antacid-diphenhydr NSGNS-uawcecsgo-xl statin (MAGIC MOUTHWASH) suspension Swish and spit [...]
== END 2024-02-29 13:43 | disposition home or self-care (01) ==
LOC: NFLDREF 03-01 08:30
PROVIDERS: PCP Internal Medicine; Referring Provider Internal Medicine; Visit Provider Internal Medicine
DX: N39.0 Urinary tract infection, site not specified (principal); M06.9 Rheumatoid arthritis, unspecified
CPT/HCPCS: 87086

== ENCOUNTER 2024-03-08 13:30 | Outpatient (CLI) | payer BC, SELFPAY ==
--- OUTSIDE RECORDS SUMMARY | 2024-03-12 21:07 | XMS_ITS | Clinical Summary ---
Author Organization [facility] Address [address] [place] [address] Care Team Providers Care Cutter Aluminum Sheet Name Role Phone Unavailable Primary Care Provider [...] each transition of care or referral. [facility] Allergies Active Allergy Reactions Criticality Noted Date [...] as needed for Anxiety. Active aluminum-magnesium antacid-diphenhydr DNBEK-ixcnxygzg-fj statin (MAGIC MOUTHWASH) suspension Swish and spit [...] on patient's age to complete this topic RSV Aged Out No longer eligi ble based on patient's age to complete this topic MCV4 Aged Out No longer eligi ble based on patient's age to complete this topic Pneumococcal Aged Out No longer eligi ble based on patient's age to complete this topic
--- OUTSIDE RECORDS SUMMARY | 2024-03-12 21:07 | XMS_ITS | Clinical Summary ---
Author Organization [employer] [facility] Address [place], [place] [address] Care Team Providers Care Prefitter Name Role Phone Katerina Contreras Unavailable Rohan [...] nasal solution (FLONASE)Indicati ons:Sinus pressure Inhale 1 [place] into both nostrils once daily. 1 Bottle [...] dise ase (HC). Has seen Rheumatology at [place]. 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 stable. last noted on MRI 2013 in [place] 08/23/2016 Attention deficit hyperactiv ity disorder (ADHD), [...] 08/15/2023 1, 08/14/2020, 01/14/2015 (Completed outside of [facility]) COVID-19 vaccine series ( season) 2024 [...] Procedure Name Priority Date/Time Associated Diagnosis Comments FRUIT AND VEGETABLE CLASSER THIN PREP PAP SCREEN IMAGED Routine 08/14/2020 12:00 PM CDT SCAN-MAMMOGRAPHY REPORT 08/11/2017 12:00 AM CDT from Last 3 Months or Most Recently Relevant to Health Maintenance Results * FRUIT AND VEGETABLE CLASSER THIN PREP PAP SCREEN IMAGED (08/14/2020 12:00 PM CDT) Case Report Gynecologic Cytology Report ? Case: [id number] ? Authorizing Provider: ??Kelly Alba ??Collected: ? 08/14/2020 1200 ? M, MD ? Ordering Location: ? [facility] ?Received: ?08/15/2020 0925 ? First Screen: ?Larry Verma ? Specimen: ?FRUIT AND VEGETABLE CLASSER ThinPrep Vial Screening, Cervical/Vaginal ? 08/22/2020 2:38 PM CDT [facility] INTERPRETATION/ RESULT NEGATIVE FOR INTRAEPITHELIAL LESION OR MALIGNANCY (NIL) (none) 08/22/2020 2:38 PM CDT [facility] IMEN ADEQUACY Satisfactory for evaluation Endocervical component present 08/22/2020 2:38 PM CDT [facility] HPV REQUEST HPV and PAP 08/22/2020 2:38 PM CDT [facility] Date of LMP 08/07/2020 08/22/2020 2:38 PM CDT [facility] Last Pap Date 02/02/2013 08/22/2020 2:38 PM CDT [facility] Last Pap Result NIL 2:38 PM CDT [facility] Additional Information 08/22/2020 2:38 PM CDT [facility] Comment: Interpreted at [facility], Central Laboratory - [address], [place] [address] Automated Review Successful 08/22/2020 2:38 PM CDT [facility] Comment:Specimen processed s uccessfully by automated forestry biology specialist device, ThinPrep Imaging System, [employer] ANCILLARY TESTING FRUIT AND VEGETABLE CLASSER HPV Ordered, Please see separate report 08/22/2020 [...] and malignant lesions. 08/22/2020 2:38 PM CDT [facility] LABORATORY-C ENTRAL LABORATORY Other (Cervical/Vagina l) 08/14/2020 12:00 PM CDT 08/15/2020 9:25 AM CDT Kelly Alba MD PATHOLOGY/ CYTOLOGY [facility] LABORATORY-CENTRAL LABORATORY [address] [place] [address], [place] * SCAN-MAMMOGRAPHY REPORT (08/11/2017 12:00 AM CDT) Anatomical Region Laterality Modality Other Scanner OTHER from Last 3 Months or Most Recently Relevant to Health Maintenance Care Teams Prefitter Relationship Specialty Start Date End Date Pcp, No . PCP - General 02/28/19 Katerina Contreras Air Analysis Technician 07/21/16
== END 2024-03-08 13:31 | disposition home or self-care (01) ==
LOC: NFLDREF 03-12 21:05
PROVIDERS: PCP Internal Medicine; Referring Provider Internal Medicine; Visit Provider Internal Medicine
DX: N39.0 Urinary tract infection, site not specified (principal)
CPT/HCPCS: 87086

== ENCOUNTER 2024-03-23 09:12 | Outpatient (CLI) | payer BC, SELFPAY ==
--- OUTSIDE RECORDS SUMMARY | 2024-03-23 09:17 | XMS_ITS | Clinical Summary ---
Author Organization [facility] Address [address] [place] [address] Care Team Providers Care Automotive Maintenance Technician Name Role Phone Unavailable Primary Care [...] for each transition of care or referral. [facility] Allergies Active Allergy Reactions Criticality Noted Date [...] as needed for Anxiety. Active aluminum-magnesium antacid-diphenhydr UEHWS-rucqumhtr-mh statin (MAGIC MOUTHWASH) suspension Swish and spit [...]
--- OUTSIDE RECORDS SUMMARY | 2024-03-23 09:17 | XMS_ITS | Clinical Summary ---
Author Organization [employer] [facility] Address [place], [place] [address] Care Team Providers Care Metal Grinder Name Role Phone Katerina Contreras Unavailable Rohan [...] nasal solution (FLONASE)Indicati ons:Sinus pressure Inhale 1 [place] into both nostrils once daily. 1 Bottle [...] dise ase (HC). Has seen Rheumatology at [place]. 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 stable. last noted on MRI 2013 in [place] 08/23/2016 Attention deficit hyperactiv ity disorder (ADHD), [...] 91 01/23/2020 1:50 PM CDT Temperature 37.2 C (99 F) 10/31/2017 4:07 PM CDT Respiratory Rate 18 [...] 08/15/2023 1, 08/14/2020, 01/14/2015 (Completed outside of [facility]) COVID-19 vaccine series (2023- season) 2024 11/13/2021, 08/06/2021, 05/15/2020, Additional history exists Influenza for age 50-64 01/01/2024 01/31/20 17, 02/09/2016, 02/09/2016, Additional history exists Tetanus booster 07/11/2024 07/11/2014, 07/11/2014 Colonoscopy through age 75 11/11/2024 11/11/2014 Tdap Completed 07/11/2014, 07/11/2014 Pneumococcal series for age 6-64 Aged Out No longer eligible based on patient's age to complete this topic Procedures Procedure Name Priority Date/Time Associated Diagnosis Comments OUTSIDE SALES ACCOUNT EXECUTIVE THIN PREP PAP SCREEN IMAGED Routine 08/14/2020 12:00 PM CDT SCAN-MAMMOGRAPHY REPORT 08/11/2017 12:00 AM CDT from Last 3 Months or Most Recently Relevant to Health Maintenance Results * OUTSIDE SALES ACCOUNT EXECUTIVE THIN PREP PAP SCREEN IMAGED (08/14/2020 12:00 PM CDT) Case Report Gynecologic Cytology Report Case: [id number] Authorizing Provider: Kelly Alba Collected: 08/14/2020 1200 MMD Ordering Location: [facility] Received: 08/15/2020 0925 First Screen: Larry Verma Specimen: OUTSIDE SALES ACCOUNT EXECUTIVE ThinPrep Vial Screening, Cervical/Vaginal 08/22/2020 2:38 PM CDT [facility] INTERPRETATION/ RESULT NEGATIVE FOR INTRAEPITHELIAL LESION OR MALIGNANCY (NIL) (none) 08/22/2020 2:38 PM CDT [facility] IMEN ADEQUACY Satisfactory for evaluation Endocervical component present 08/22/2020 2:38 PM CDT [facility] HPV REQUEST HPV and PAP 08/22/2020 2:38 PM CDT [facility] Date of LMP 08/07/2020 08/22/2020 2:38 PM CDT [facility] Last Pap Date 02/02/2013 08/22/2020 2:38 PM CDT [facility] Last Pap Result NIL 2:38 PM CDT [facility] Additional Information 08/22/2020 2:38 PM CDT [facility] Comment: Interpreted at [facility], Central Laboratory - [address], [place] [address] Automated Review Successful 08/22/2020 2:38 PM CDT [facility] Comment:Specimen processed s uccessfully by automated seasoning mixer device, ThinPrep Imaging System, [employer] ANCILLARY TESTING OUTSIDE SALES ACCOUNT EXECUTIVE HPV Ordered, Please see separate report 08/22/2020 2:38 PM CDT [facility] Note The pap test [...] and malignant lesions. 08/22/2020 2:38 PM CDT [facility] Other (Cervical/Vagina l) 08/14/2020 12:00 PM CDT 08/15/2020 9:25 AM CDT Kelly Alba MD PATHOLOGY/ CYTOLOGY [facility] [address] [place] [address], [place] * SCAN-MAMMOGRAPHY REPORT (08/11/2017 12:00 AM CDT) Anatomical Region Laterality Modality Other Scanner OTHER from Last 3 Months or Most Recently Relevant to Health Maintenance Care Teams Metal Grinder Relationship Specialty Start Date End Date Pcp, No . PCP - General 02/28/19 Katerina Contreras Business Control Specialist 07/21/16
== END 2024-03-23 09:13 | disposition home or self-care (01) ==
PROVIDERS: PCP Internal Medicine; Visit Provider Family Medicine
DX: Z01.818 Encounter for other preprocedural examination (principal)
CPT/HCPCS: 80048

== ENCOUNTER 2024-03-28 11:16 | Outpatient (CLI) | payer BC, SELFPAY ==
--- OUTSIDE RECORDS SUMMARY | 2024-03-30 11:07 | XMS_ITS | Clinical Summary ---
Author Organization [employer] [facility] Address [place], [place] [address] Care Team Providers Care Grade Checker Name Role Phone Katerina Contreras Unavailable Rohan [...] nasal solution (FLONASE)Indicati ons:Sinus pressure Inhale 1 [place] into both nostrils once daily. 1 Bottle [...] dise ase (HC). Has seen Rheumatology at [place]. 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 stable. last noted on MRI 2013 in [place] 08/23/2016 Attention deficit hyperactiv ity disorder (ADHD), [...] 08/15/2023 1, 08/14/2020, 01/14/2015 (Completed outside of [facility]) COVID-19 vaccine series (2023- season) 2024 11/13/2021, [...] Procedure Name Priority Date/Time Associated Diagnosis Comments NUCLEAR DESIGN ENGINEER THIN PREP PAP SCREEN IMAGED Routine 08/14/2020 12:00 PM CDT SCAN-MAMMOGRAPHY REPORT 08/11/2017 12:00 AM CDT from Last 3 Months or Most Recently Relevant to Health Maintenance Results * NUCLEAR DESIGN ENGINEER THIN PREP PAP SCREEN IMAGED (08/14/2020 12:00 PM CDT) Case Report Gynecologic Cytology Report Case: [id number] Authorizing Provider: Kelly Alba Collected: 08/14/2020 1200 MMD Ordering Location: [facility] Received: 08/15/2020 0925 First Screen: Larry Verma Specimen: NUCLEAR DESIGN ENGINEER ThinPrep Vial Screening, Cervical/Vaginal 08/22/2020 2:38 PM CDT [facility] INTERPRETATION/ RESULT NEGATIVE FOR INTRAEPITHELIAL LESION OR MALIGNANCY (NIL) (none) 08/22/2020 2:38 PM CDT [facility] IMEN ADEQUACY Satisfactory for evaluation Endocervical component present 08/22/2020 2:38 PM CDT [facility] HPV REQUEST HPV and PAP 08/22/2020 2:38 PM CDT [facility] Date of LMP 08/07/2020 08/22/2020 2:38 PM CDT [facility] Last Pap Date 02/02/2013 08/22/2020 2:38 PM CDT [facility] Last Pap Result NIL 2:38 PM CDT [facility] Additional Information 08/22/2020 2:38 PM CDT [facility] Comment: Interpreted at [facility], Central Laboratory - [address], [place] [address] Automated Review Successful 08/22/2020 2:38 PM CDT [facility] Comment:Specimen processed s uccessfully by automated medical physics professor device, ThinPrep Imaging System, [employer] ANCILLARY TESTING NUCLEAR DESIGN ENGINEER HPV Ordered, Please see separate report 08/22/2020 2:38 PM CDT [facility] Note The pap test is [...] and malignant lesions. 08/22/2020 2:38 PM CDT [facility] Other (Cervical/Vagina l) 08/14/2020 12:00 PM CDT 08/15/2020 9:25 AM CDT Kelly Alba MD PATHOLOGY/ CYTOLOGY [facility] [address] [place] [address], [place] * SCAN-MAMMOGRAPHY REPORT (08/11/2017 12:00 AM CDT) Anatomical Region Laterality Modality Other Scanner OTHER from Last 3 Months or Most Recently Relevant to Health Maintenance Care Teams Grade Checker Relationship Specialty Start Date End Date Pcp, No . PCP - General 02/28/19 Kateirna Contreras Teacher Education Instructor 07/21/16
--- OUTSIDE RECORDS SUMMARY | 2024-03-30 11:07 | XMS_ITS | Clinical Summary ---
Author Organization [facility] Address [address] [place] [address] Care Team Providers Care Manager Studio Name Role Phone Unavailable Primary Care Provider [...] for each transition of care or referral. [facility] Allergies Active Allergy Reactions Criticality Noted Date [...] as needed for Anxiety. Active aluminum-magnesium antacid-diphenhydr RXROL-utbzmaujv-fb statin (MAGIC MOUTHWASH) suspension Swish and spit [...]
== END 2024-03-28 11:17 | disposition home or self-care (01) ==
LOC: NFLDREF 03-30 11:05
PROVIDERS: PCP Internal Medicine; Referring Provider Internal Medicine; Visit Provider Internal Medicine
DX: R39.9 Unspecified symptoms and signs involving the genitourinary system (principal)
CPT/HCPCS: 87086; 87186

== ENCOUNTER 2024-04-03 14:12 | Outpatient (CLI) | payer BC, SELFPAY ==
--- NOTE | 2024-04-03 14:00 | CRLHL7_ITS ---
For Patients: As a result of the Century Cures Act, medical imaging exams and procedure reports are released immediately into your electronic medical record. You may view this report before your referring provider. If you have questions, please contact your health care provider. BILATERAL SCREENING MAMMOGRAM WITH COMPUTER-AIDED DETECTION AND TOMOSYNTHESIS TECHNIQUE: CC and MLO views were obtained. These mammographic images have been obtained using full-field digital technique. These mammographic images were interpreted with the benefit of computer-aided detection. Breast Tomosynthesis was used in this interpretation. COMPARISON FILM: 05/17/22, 01/16/20, 09/16/17. FINDINGS: There are scattered areas of fibroglandular density. IMPRESSION: There is no radiographic evidence for malignancy. ASSESSMENT: BI-RADS Category 2: Benign RECOMMENDATION: Routine screening mammogram in 1 year. A lay language report of this examination will be provided to the patient. Newton Cuellar M.D. Diagnostic Radiologist [email or web address] SP/Dictated by: Newton Cuellar MD @ 04/04/2024 11:45:00 AM (Electronically Signed)
--- OUTSIDE RECORDS SUMMARY | 2024-04-03 14:16 | XMS_ITS | Clinical Summary ---
Author Organization [email or web address] [facility] & [facility] Address [place], [place] [address] Care Team Providers Care Sweatband Perforator Name Role Phone Katerina Contreras Unavailable Rohan [...] nasal solution (FLONASE)Indicati ons:Sinus pressure Inhale 1 [place] into both nostrils once daily. 1 Bottle [...] dise ase (HC). Has seen Rheumatology at [place]. 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 stable. last noted on MRI 2013 in [place] 08/23/2016 Attention deficit hyperactiv ity disorder (ADHD), [...] 08/15/2023 1, 08/14/2020, 01/14/2015 (Completed outside of [facility]) COVID-19 vaccine series (2023- season) 2024 [...] Procedure Name Priority Date/Time Associated Diagnosis Comments WARP PICKER THIN PREP PAP SCREEN IMAGED Routine 08/14/2020 12:00 PM CDT SCAN-MAMMOGRAPHY REPORT 08/11/2017 12:00 AM CDT from Last 3 Months or Most Recently Relevant to Health Maintenance Results * WARP PICKER THIN PREP PAP SCREEN IMAGED (08/14/2020 12:00 PM CDT) Case Report Gynecologic Cytology Report Case: [id number] Authorizing Provider: Kelly Alba Collected: 08/14/2020 1200 MMD Ordering Location: [facility] Received: 08/15/2020 0925 First Screen: Larry Verma Specimen: WARP PICKER ThinPrep Vial Screening, Cervical/Vaginal 08/22/2020 2:38 PM CDT [facility] INTERPRETATION/ RESULT NEGATIVE FOR INTRAEPITHELIAL LESION OR MALIGNANCY (NIL) (none) 08/22/2020 2:38 PM CDT [facility] IMEN ADEQUACY Satisfactory for evaluation Endocervical component present 08/22/2020 2:38 PM CDT [facility] HPV REQUEST HPV and PAP 08/22/2020 2:38 PM CDT [facility] Date of LMP 08/07/2020 08/22/2020 2:38 PM CDT [facility] Last Pap Date 02/02/2013 08/22/2020 2:38 PM CDT [facility] Last Pap Result NIL 2:38 PM CDT [facility] Additional Information 08/22/2020 2:38 PM CDT [facility] Comment: Interpreted at [facility] - [address], [place] [address] Automated Review Successful 08/22/2020 2:38 PM CDT [facility] Comment:Specimen processed s uccessfully by automated elastic yarn twister device, ThinPrep Imaging System, [employer] ANCILLARY TESTING WARP PICKER HPV Ordered, Please see separate report 08/22/2020 2:38 PM CDT [facility] Note The pap test [...] and malignant lesions. 08/22/2020 2:38 PM CDT [facility] Other (Cervical/Vagina l) 08/14/2020 12:00 PM CDT 08/15/2020 9:25 AM CDT Kelly Alba MD PATHOLOGY/ CYTOLOGY [facility] [address] [place] [address], [place] * SCAN-MAMMOGRAPHY REPORT (08/11/2017 12:00 AM CDT) Anatomical Region Laterality Modality Other Scanner OTHER from Last 3 Months or Most Recently Relevant to Health Maintenance Care Teams Sweatband Perforator Relationship Specialty Start Date End Date Pcp, No . PCP - General 02/28/19 Katerina Contreras Pack Mule Worker 07/21/16
--- OUTSIDE RECORDS SUMMARY | 2024-04-03 14:16 | XMS_ITS | Clinical Summary ---
Author Organization [facility] Address [address] [place] [address] Care Team Providers Care Senior Reactor Operator Name Role Phone Unavailable Primary Care [...] for each transition of care or referral. [facility] [employer] Allergies Active Allergy Reactions Criticality Noted Date [...] as needed for Anxiety. Active aluminum-magnesium antacid-diphenhydr UNVEX-ikpwtbrwh-op statin (MAGIC MOUTHWASH) suspension Swish and spit [...]
== END 2024-04-03 14:13 | disposition home or self-care (01) ==
LOC: MAMMO 14:13
PROVIDERS: PCP Internal Medicine; Visit Provider Internal Medicine
DX: Z12.31 Encounter for screening mammogram for malignant neoplasm of breast (principal)
CPT/HCPCS: 77063; 77067

== ENCOUNTER 2024-04-04 15:15 | Outpatient (CLI) | payer BC, SELFPAY ==
--- OUTSIDE RECORDS SUMMARY | 2024-04-07 19:58 | XMS_ITS | Clinical Summary ---
Author Organization [facility] Address [address] [place] [address] Care Team Providers Care Assistant Laboratory Director Name Role Phone Unavailable Primary Care Provider [...] for each transition of care or referral. [email or web address] Allergies Active Allergy Reactions Criticality Noted Date [...] as needed for Anxiety. Active aluminum-magnesium antacid-diphenhydr GIBWV-bpmrceqpj-dd statin (MAGIC MOUTHWASH) suspension Swish and spit [...]
--- OUTSIDE RECORDS SUMMARY | 2024-04-07 19:58 | XMS_ITS | Clinical Summary ---
Author Organization [employer] [facility] & [facility] Address [place], [place] [address] Care Team Providers Care Mailing Jogger Name Role Phone Katerina Contreras Unavailable Rohan miller Pcp, No Primary Care Provider Unavailabl e Allergies Active Allergy Reactions Criticality Noted Date Comments Adhesive Tape-Silicones Rash 11/17/2016 Hydrocodone Bitartrate Itching 02/12/2013 Iodine Shortness Of Breath 08/28/2014 Pecan Nut Angioedema 01/10/2017 Hydrocodone-Acetaminophen Itching,Nausea Only 0 08/28/2014 Medications lidocaine, viscous, 2% (LIDOCAINE VISCOUS) 2 % solutionIndicat ions:Tongue pain Swish and spit 15 mL by mouth every 4 hours if needed. 1 Bottle 06/24/19 17 Active fluticasone (50 mcg per actuation) nasal solution (FLONASE)Indica tions:Sinus pressure Inhale 1 [place] into both nostrils once daily. 1 Bottle 2 01/27/20 17 Active SUMAtriptan (IMITREX) 6 mg/0.5 mL subcutaneous pen injectorIndicat ions:Migraine without aura and with status migrainosus, not intractable INJECT 6 MG SUBCUTANEOUS EVERY 2 HOURS IF NEEDED FOR MIGRAINE. 1 pen 1 04/15/20 17 Active acetaminophen (TYLENOL EXTRA STRGTH) 500 mg tablet Take 500 mg by mouth. Active ALPRAZolam 2 mg tablet Bedtime as needed 12/12/19 20 Active Amphetamine-Dex troamphetamine (ADDERALL) 30 mg tablet dextroamphetamine-amp hetamine 30 mg tablet Act rosalba dextroamphetami ne-amphetamine (ADDERALL XR) 15 mg Extended-Releas e capsule Daily 11/23/19 20 Active DULoxetine (CYMBALTA) 60 mg Delayed-release capsule Daily 12/17/19 20 Active hydrOXYchloroQU INE (PLAQUENIL) 200 mg tablet hydroxychloroquine 200 mg tablet 11/22/19 20 Active hydrOXYzine pamoate (VISTARIL) 25 mg capsule hydroxyzine pamoate 25 mg capsule Active lansoprazole (PREVACID) 15 mg capsule lansoprazole 15 mg capsule,delayed release Active LORazepam (ATIVAN) 1 mg tablet lorazepam 1 mg tablet Active nitrofurantoin macrocrystaL (MACRODANTIN) 50 mg capsuleIndicati ons:Recurrent UTI Take 1 capsule by mouth one time if needed for Other (Specify). Take one tablet PO at time of intercourse 30 capsule 11 01/23/20 20 Active estrogens, conjugated (PREMARIN) 0.625 mg/gram vaginal creamIndication s:Recurrent UTI Insert 1 g into the vagina at bedtime. 1 Tube 01/23/20 20 Active Active Problems Problem Noted Date Diagnosed Date Insomnia 07/25/2017 Raynaud's disease without gangrene 07/06/2017 Insomnia, idiopathic 01/17/2017 Migraine syndrome 08/26/2016 Mixed connective tissue dise ase (HC). Has seen Rheumatology at [place]. 08/23/2016 Overview (07/06/2017): Diagnosis of MCTD made in at [place] when living in [place]. 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 stable. last noted on MRI 2013 in [place] 08/23/2016 Attention deficit hyperactiv ity disorder [...] Answer Date Recorded PHQ-2 Score 1 07/03/2018 Comments No Sex and Gender Information Value Date Recorded Sex Assigned at Not on file Legal Sex Female 6:35 PM CDT Gender Identity Not on file Sexual Orientation [...] 12/30/2021 Pap test for age 21-65 08/15/2023 , 08/14/2020, 01/14/2015 (Completed outside of [facility]) COVID-19 vaccine series ( season) 2024 11/13/2021, [...] Procedure Name Priority Date/Time Associated Diagnosis Comments MANUFACTURING ENGINEER SUPERVISOR THIN PREP PAP SCREEN IMAGED Routine 08/14/2020 12:00 PM CDT SCAN-MAMMOGRAPHY REPORT 08/11/2017 12:00 AM CDT from Last 3 Months or Most Recently Relevant to Health Maintenance Results * MANUFACTURING ENGINEER SUPERVISOR THIN PREP PAP SCREEN IMAGED (08/14/2020 12:00 PM CDT) Case Report Gynecologic Cytology Report Case: [id number] Authorizing Provider: Kelly Alba Collected: 08/14/2020 1200 MMD Ordering Location: [facility] Received: 08/15/2020 0925 First Screen: Larry Verma Specimen: MANUFACTURING ENGINEER SUPERVISOR ThinPrep Vial Screening, Cervical/Vaginal 08/22/2020 2:38 PM CDT [facility] INTERPRETATION/ RESULT NEGATIVE FOR INTRAEPITHELIAL LESION OR MALIGNANCY (NIL) (none) 08/22/2020 2:38 PM CDT [facility] [facility] IMEN ADEQUACY Satisfactory for evaluation Endocervical component present 08/22/2020 2:38 PM CDT [facility] HPV REQUEST HPV and PAP 08/22/2020 2:38 PM CDT [facility] Date of LMP 08/07/2020 08/22/2020 2:38 PM CDT [facility] Last Pap Date 02/02/2013 08/22/2020 2:38 PM CDT [facility] Last Pap Result NIL 2:38 PM CDT [facility] Additional Information 08/22/2020 2:38 PM CDT [facility] Comment: Interpreted at [facility] - [address], [place] [address] Automated Review Successful 08/22/2020 2:38 PM CDT [facility] Comment:Specimen processed s uccessfully by automated senior billing consultant device, [employer] (Closed)Prep Imaging System, [employer] ANCILLARY TESTING MANUFACTURING ENGINEER SUPERVISOR HPV Ordered, Please see separate report 08/22/2020 2:38 PM CDT [facility] Note The pap test is [...] and malignant lesions. 08/22/2020 2:38 PM CDT [facility] Other (Cervical/Vagina l) 08/14/2020 12:00 PM CDT 08/15/2020 9:25 AM CDT us Kelly Alba MD PATHOLOGY/CYTOLOGY Final Result [facility] [address] [place] [address], [place] * SCAN-MAMMOGRAPHY REPORT (08/11/2017 12:00 AM CDT) Anatomical Region Laterality Modality Other us Scanner OTHER Final Result from Last 3 Months or Most Recently Relevant to Health Maintenance Insurance [employer] Care Teams Mailing Jogger Relationship Specialty Start Date End Date Pcp, No . PCP - General 02/28/19 Katerina Contreras Immunochemist 07/21/16
== END 2024-04-04 15:16 | disposition home or self-care (01) ==
LOC: NFLDREF 04-07 19:56
PROVIDERS: PCP Internal Medicine; Referring Provider Internal Medicine; Visit Provider Internal Medicine
DX: J32.9 Chronic sinusitis, unspecified (principal); N39.0 Urinary tract infection, site not specified
CPT/HCPCS: 87086

== ENCOUNTER 2024-04-23 06:48 | Emergency (ER) | payer BC, SELFPAY ==
[2024-04-23 06:53] VITALS: BP 115/70; PULSE 115; RESP 18; TEMP 36.7; O2SAT 98; BMI 25.5
--- NOTE | 2024-04-23 07:11 | CRLHL7_ITS ---
For Patients: As a result of the Century Cures Act, medical imaging exams and procedure reports are released immediately into your electronic medical record. You may view this report before your referring provider. If you have questions, please contact your health care provider. Indication: Back pain, vomiting, COVID positive. Technique: One view(s) of the chest. Comparison: 07/19/2023. Findings: Normal cardiomediastinal silhouette and pulmonary vasculature. Lungs are mildly hypoinflated with bronchovascular crowding. No focal consolidation. No pleural effusion. No pneumothorax. No acute osseous abnormality identified. Impression: Hypoinflated lungs without acute abnormality identified. Dictated by Kerline Willson MD @ 04/23/2024 7:39:23 AM (Electronically Signed)
--- NOTE | 2024-04-23 07:13 | ED_ITS ---
HPI - General Adult General Date Seen: 04/23/24 <César Harding MD - Last Filed: 04/23/24 15:52> Chief complaint: Abdominal Pain <César Harding MD - Last Filed: 04/23/24 15:52> Stated complaint: covid+, incontinence, weakness <César Harding MD - Last Filed: 04/23/24 15:52> Time Seen by Provider: 04/23/24 07:09 <César Harding MD - Last Filed: 04/23/24 15:52> Source: patient <César Harding MD - Last Filed: 04/23/24 15:52> Mode of arrival: ambulatory <César Harding MD - Last Filed: 04/23/24 15:52> Limitations: no limitations <César Harding MD - Last Filed: 04/23/24 15:52> History of Present Illness HPI narrative: Patient is a 53-year-old female who presents here after an episode of vomiting incontinence of stool. She tested COVID positive yesterday, has a history of chills, weakness, and feeling overly bad. She also has a cough associated with this she is not short of breath. She woke up from sleep overnight with upper back discomfort, made slightly worse when she takes a deep breath in. She denies any productive cough associated with this. She denies a fever. She does have a headache associated with this and thinks she may have a UTI as her urine smells. History of lupus, RA, gastric paresis, Gastric bypass, C diff <César Harding MD - Last Filed: 04/23/24 15:52> Onset (ago): hour(s) <César Harding MD - Last Filed: 04/23/24 15:52> Exacerbating factors: movement <César Harding MD - Last Filed: 04/23/24 15:52> Associated symptoms: cough, fever/chills, headaches, malaise, nausea/vomiting and weakness <César Harding MD - Last Filed: 04/23/24 15:52> Treatments prior to arrival: none <César Harding MD - Last Filed: 04/23/24 15:52> Related Data Home medications: Home Medications ?Medication ?Instructions ?Recorded ?Confirmed methotrexate sodium (PF) 25 mg/mL 50 mg IM QWEEK 11/25/21 04/04/24 injection solution pantoprazole 40 mg tablet,delayed 40 mg PO BID 11/25/21 04/04/24 release hydroxychloroquine 200 mg tablet 200 - 400 mg PO .UD 07/26/22 04/04/24 levonorgestrel (Mirena) 1 device intrauterine ONCE 07/26/22 04/04/24 ondansetron 4 mg disintegrating 4 mg PO Q8H PRN 04/07/23 04/04/24 tablet pilocarpine HCl 5 mg tablet 5 mg PO 3XD 06/10/23 04/04/24 sulfasalazine 500 mg tablet 1 g PO QDAY 08/01/23 04/04/24 famotidine 40 mg tablet 40 mg PO QPM 11/07/23 04/04/24 amlodipine 2.5 mg tablet 2.5 mg PO DAILY 01/18/24 04/04/24 cetirizine 5 mg-pseudoephedrine ER 1 tab PO BID PRN 03/23/24 04/04/24 120 mg tablet,extended release,12hr (Zyrtec-D) folic acid 1 mg tablet 3 mg PO DAILY 03/23/24 04/04/24 galcanezumab-gnlm 120 mg/mL 240 mg subcut MONTHLY 03/23/24 04/04/24 subcutaneous pen injector (Emgality Pen) Previous Rx's ?Medication ?Instructions ?Recorded hydroxyzine HCl 25 mg tablet 25 mg PO .As Needed PRN Headaches 10/15/22 #30 tabs diphenoxylate-atropine 2.5 1 tab PO TID PRN diarrhea #30 tabs 05/10/23 mg-0.025 mg tablet (Lomotil) dicyclomine 10 mg capsule 10 mg PO QID PRN abdominal pain 08/30/23 #60 caps rabeprazole 20 mg tablet,delayed 20 mg PO BID #60 tabs 10/18/23 release cwypsiaqfg-xwcavlbhypagt-uhzmfhwu 1 tab PO Q4-6H PRN pain #60 tabs 01/25/24 50 mg-325 mg-40 mg tablet ketorolac 10 mg tablet 10 mg PO Q8H PRN pain #30 tabs 01/25/24 semaglutide (weight loss) 0.5 0.5 mg (0.5 mL) subcut QWEEK #2 mL 03/05/24 mg/0.5 mL subcutaneous pen injector (Wegovy) phentermine 37.5 mg capsule 37.5 mg PO QDAY #30 caps 03/08/24 sumatriptan succinate 6 mg/0.5 mL 6 mg (0.5 mL) subcut .As Needed as 03/12/24 subcutaneous pen injector needed PRN migraine headache #1 mL alprazolam 2 mg tablet 4 mg (2 x 2 mg) PO QHS anxiety #60 03/28/24 tabs dextroamphetamine-amphetamine ER 15 mg PO DAILY #30 caps 03/28/24 15 mg 24hr capsule,extend release dextroamphetamine-amphetamine ER 30 mg PO DAILY #30 caps 03/28/24 30 mg 24hr capsule,extend release semaglutide (weight loss) 0.25 0.25 mg (0.5 mL) subcut QWEEK #2 mL 03/28/24 mg/0.5 mL subcutaneous pen injector (Wegovy) tranexamic acid 650 mg tablet 650 mg PO DAILY Vitiligo #60 tabs 03/28/24 diphenoxylate-atropine 2.5 1 tab PO DAILY PRN diarrhea #7 tabs 04/23/24 mg-0.025 mg tablet (Lomotil) ondansetron 4 mg disintegrating 4 mg PO Q8H PRN nausea and 04/23/24 tablet vomiting #7 tabs <César Harding MD - Last Filed: 04/23/24 15:52> Allergies/adverse reactions: Allergies Allergy/AdvReac Type Severity Reaction Status Date / Time iodine Allergy Intermediate Fainting, Verified 04/04/24 14:44 sob hydrocodone Allergy Mild Itching Verified 04/04/24 14:44 adhesive Allergy Unknown Rash Verified 04/04/24 14:44 pecan nut Allergy Verified 04/04/24 14:44 <César Harding MD - Last Filed: 04/23/24 15:52> Review of Systems Status of ROS: Reports: 10 or more systems reviewed and unremarkable except as noted in History and below <César Harding MD - Last Filed: 04/23/24 15:52> PFSH PFSH Medical History: Medical History Sinusitis ?J32.9 - Chronic sinusitis, unspecified (ICD-10) UTI (urinary tract infection) ?N39.0 - Urinary tract infection, site not specified (ICD-10) Knee injury ?S89.90XA - Unspecified injury of unspecified lower leg, initial encounter (ICD-10) C. difficile colitis ?A04.72 - Enterocolitis due to Clostridium difficile, not specified as recurrent (ICD-10) Complication of gastric band procedure (09/27/18) ?K95.09 - Other complications of gastric band procedure (ICD-10) Autoimmune disease ?M35.9 - Systemic involvement of connective tissue, unspecified (ICD-10) <César Harding MD - Last Filed: 04/23/24 15:52> Surgical History: Surgical History Status post gastric banding ?Z98.84 - Bariatric surgery status (ICD-10) History of umbilical hernia repair ?Z98.890 - Other specified postprocedural states (ICD-10) ?Z87.19 - Personal history of other diseases of the digestive system (ICD-10) History of tonsillectomy ?Z90.89 - Acquired absence of other organs (ICD-10) History of surgery on left wrist ?Z98.890 - Other specified postprocedural states (ICD-10) History of right knee surgery ?Z98.890 - Other specified postprocedural states (ICD-10) History of removal of laparoscopic gastric banding device (09/27/18) ?Z98.84 - Bariatric surgery status (ICD-10) History of reduction mammoplasty ?Z98.890 - Other specified postprocedural states (ICD-10) History of laparoscopic adjustable gastric banding (2007) ?Z98.84 - Bariatric surgery status (ICD-10) History of cholecystectomy ?Z90.49 - Acquired absence of other specified parts of digestive tract (ICD- 10) History of abdominoplasty (2018) ?Z98.890 - Other specified postprocedural states (ICD-10) <César Harding MD - Last Filed: 04/23/24 15:52> Social History: Social History Narrative: 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 Her pupils are equal round reactive to light there is no scleral icterus redness TMs are normal oropharynx is normal her neck is supple there is no meningismus noted with the examination cranial nerves 3-12 are normal chest is good air entry bilaterally with no wheezing crackles noted. Heart sounds are normal, abdomen is fairly soft, there is no guarding no organomegaly noted. Bowel sounds are normal. No CVA tenderness she moves all extremities independently well, I do not detect any rashes on her, she does have vitiligo. <César Harding MD - Last Filed: 04/23/24 15:52> Const: Vital Signs, click to edit/add: Vital Signs - 24 hr 04/23/24 06:53 04/23/24 08:17 04/23/24 08:19 Temperature 98.1 F 98.3 F Pulse Rate [Right Pulse Oximeter] 115 H 111 H Respiratory Rate 18 20 Blood Pressure [Ri ght Upper Arm] 115/70 107/67 Pulse Oximetry 98 94 94 Oxygen Delivery Me thod Room Air Room Air <César Harding MD - Last Filed: 04/23/24 15:52> Vital Signs, click to edit/add: Vital Signs - 24 hr 04/23/24 06:53 04/23/24 08:17 04/23/24 08:19 Temperature 98.1 F 98.3 F Pulse Rate [Right Pulse Oximeter] 115 H 111 H Respiratory Rate 18 20 Blood Pressure [Ri ght Upper Arm] 115/70 107/67 Pulse Oximetry 98 94 94 Oxygen Delivery Me thod Room Air Room Air <Nano Jones MD - Last Filed: 04/23/24 12:43> Documenting provider has reviewed patient's vital signs: yes <César Harding MD - Last Filed: 04/23/24 15:52> Course Course ED Course: Patient was signed out to me by Dr. Harding at the beginning of my shift. I followed up on labs and x-ray. Labs are overall reassuring. Her white blood cell count is minimally elevated at 12.3, hemoglobin is also elevated at 16.3 so there may be a component of hemoconcentration there. She did receive a L of normal saline IV. Coags are normal, D-dimer is 0.3. Electrolytes are normal, she does have a history of low potassium but it is normal today at 4.1. Blood sugars 135. LFTs are unremarkable. CRP is mildly elevated at 4.8, not unexpected with her COVID diagnosis. Lipase is normal at 242 and urinalysis is negative. Troponin is 0. Chest x-ray by my review does not show an infiltrate. I reviewed all this with her. Symptoms are likely related to her COVID diagnosis. She is on of very large number of medications, I think overall that I would not recommend Paxlovid at this time. She has not had any vomiting or diarrhea while here. She did not want to be discharge, but also does not want admission. We decided to try giving another L of fluid and then will try sending her home as she does not wish to be admitted to the hospital. <Nano Jones MD - Last Filed: 04/23/24 12:43> Vital Signs Vital signs: Initial Vital Signs Temperature 98.1 F 04/23/24 06:53 Temperature Source Temporal Artery Scan 04/23/24 06:53 Pulse Rate 115 H 04/23/24 06:53 Pulse Rhythm Regular 04/23/24 06:53 Respiratory Rate 18 04/23/24 06:53 Blood Pressure 115/70 04/23/24 06:53 Blood Pressure Mean 85 04/23/24 06:53 Blood Pressure Position Sitting 04/23/24 06:53 Pulse Oximetry 98 04/23/24 06:53 Oxygen Delivery Method Room Air 04/23/24 06:53 Vital Signs Temperature 98.1 F 04/23/24 06:53 Pulse Rate 115 H 04/23/24 06:53 Respiratory Rate 18 04/23/24 06:53 Blood Pressure 115/70 04/23/24 06:53 Pulse Oximetry 98 04/23/24 06:53 Oxygen Delivery Method Room Air 04/23/24 06:53 Temperature 98.3 F 04/23/24 08:19 Pulse Rate 111 H 04/23/24 08:19 Respiratory Rate 20 04/23/24 08:19 Blood Pressure 107/67 04/23/24 08:19 Pulse Oximetry 94 04/23/24 08:19 Oxygen Delivery Method Room Air 04/23/24 08:19 <César Harding MD - Last Filed: 04/23/24 15:52> Initial Vital Signs Temperature 98.1 F 04/23/24 06:53 Temperature Source Temporal Artery Scan 04/23/24 06:53 Pulse Rate 115 H 04/23/24 06:53 Pulse Rhythm Regular 04/23/24 06:53 Respiratory Rate 18 04/23/24 06:53 Blood Pressure 115/70 04/23/24 06:53 Blood Pressure Mean 85 04/23/24 06:53 Blood Pressure Position Sitting 04/23/24 06:53 Pulse Oximetry 98 04/23/24 06:53 Oxygen Delivery Method Room Air 04/23/24 06:53 Vital Signs Temperature 98.1 F 04/23/24 06:53 Pulse Rate 115 H 04/23/24 06:53 Respiratory Rate 18 04/23/24 06:53 Blood Pressure 115/70 04/23/24 06:53 Pulse Oximetry 98 04/23/24 06:53 Oxygen Delivery Method Room Air 04/23/24 06:53 Temperature 98.3 F 04/23/24 08:19 Pulse Rate 111 H 04/23/24 08:19 Respiratory Rate 20 04/23/24 08:19 Blood Pressure 107/67 04/23/24 08:19 Pulse Oximetry 94 04/23/24 08:19 Oxygen Delivery Method Room Air 04/23/24 08:19 <Nano Jones MD - Last Filed: 04/23/24 12:43> Medications Administered Medications: Discontinued Medications Generic Name Dose Route Start Last Admin Trade Name Freq PRN Reason Stop Dose Admin Sodium Chloride 1,000 mls @ 1,000 mls/hr 04/23/24 07:15 04/23/24 09:28 0.9 % Sodium Chloride 1000 Ml IV 04/23/24 08:14 Infused .Q1H JEREMI Infusion Sodium Chloride 1,000 mls @ 1,000 mls/hr 04/23/24 11:15 04/23/24 12:07 0.9 % Sodium Chloride 1000 Ml IV 04/23/24 12:14 Infused .Q1H JEREMI Infusion Ketorolac Tromethamine 30 mg 04/23/24 07:10 04/23/24 07:44 Ketorolac 30 Mg/Ml Inj IVP 04/23/24 07:11 30 mg ONCE ONE Administration Lorazepam 1 mg 04/23/24 08:59 04/23/24 09:22 Lorazepam 2 Mg/Ml Inj IVP 04/23/24 09:00 1 mg ONCE ONE Administration Morphine Sulfate 4 mg 04/23/24 08:59 04/23/24 10:34 Morphine 4 Mg/Ml Inj IVP 04/23/24 09:00 4 mg ONCE ONE Administration Ondansetron HCl 4 mg 04/23/24 07:10 04/23/24 07:46 Ondansetron 2 Mg/Ml Inj IVP 04/23/24 07:11 4 mg ONCE ONE Administration <César Harding MD - Last Filed: 04/23/24 15:52> Discontinued Medications Generic Name Dose Route Start Last Admin Trade Name Freq PRN Reason Stop Dose Admin Sodium Chloride 1,000 mls @ 1,000 mls/hr 04/23/24 07:15 04/23/24 09:28 0.9 % Sodium Chloride 1000 Ml IV 04/23/24 08:14 Infused .Q1H JEREMI Infusion Sodium Chloride 1,000 mls @ 1,000 mls/hr 04/23/24 11:15 04/23/24 12:07 0.9 % Sodium Chloride 1000 Ml IV 04/23/24 12:14 Infused .Q1H JEREMI Infusion Ketorolac Tromethamine 30 mg 04/23/24 07:10 04/23/24 07:44 Ketorolac 30 Mg/Ml Inj IVP 04/23/24 07:11 30 mg ONCE ONE Administration Lorazepam 1 mg 04/23/24 08:59 04/23/24 09:22 Lorazepam 2 Mg/Ml Inj IVP 04/23/24 09:00 1 mg ONCE ONE Administration Morphine Sulfate 4 mg 04/23/24 08:59 04/23/24 10:34 Morphine 4 Mg/Ml Inj IVP 04/23/24 09:00 4 mg ONCE ONE Administration Ondansetron HCl 4 mg 04/23/24 07:10 04/23/24 07:46 Ondansetron 2 Mg/Ml Inj IVP 04/23/24 07:11 4 mg ONCE ONE Administration <Nano Jones MD - Last Filed: 04/23/24 12:43> Medical Decision Making MDM Narrative Medical decision making narrative: During the evaluation of this patient I considered multiple differential diagnosis including life-threatening differentials which are appendicitis, aortic aneurysm, mesenteric ischemia, bowel perforation, ectopic , volvulus and bowel obstruction, other differential diagnosis include but are not limited to inflammatory bowel disease, cholecystitis, pancreatitis, hepatitis, gastritis, GERD, diverticulitis, peptic ulcer disease, pyelonephritis/UTI, renal colic/stone, pelvic inflammatory disease, cervicitis, endometritis, intrauterine , dysfunctional uterine bleeding, ovarian cyst/torsion, spontaneous as well as other etiologies <César Harding MD - Last Filed: 04/23/24 15:52> Lab Data Labs: Lab Results 04/23/24 04/23/24 04/23/24 Range/Units 07:52 07:52 Unknown WBC 12.26 H (4.50-11.00) K/uL RBC 5.58 H (4.00-5.20) m/uL Hgb 16.3 H (12.0-16.0) gm/dL Hct 49.5 (33.0-51.0) % MCV 89 (80-100) fL MCH 29 (26-34) pg MCHC 33 (32-36) gm/dL RDW Coeff of Juan M 13.6 (11.5-15.5) % Plt Count 189 (140-440) K/uL Neut % (Auto) 94.0 H (42.0-72.0) % Lymph % (Auto) 2.0 L (20-44) % [place] % (Auto) 3.7 (0.0-11.0) % Eos % (Auto) 0.0 (0.0-7.0) % Baso % (Auto) 0.1 (0.0-3.0) % Neut # (Auto) 11.50 H (1.7-7.0) K/uL Lymph # (Auto) 0.20 L (0.90-2.90) K/uL [place] # (Auto) 0.50 (0.00-0.90) K/UL Eos # (Auto) 0.00 (0.00-0.50) K/uL Baso # (Auto) 0.00 (0.00-0.30) K/uL Abs Immat Gran (auto) 0.00 (0.00-0.30) K/uL Imm/Tot Granulo (auto) 0.2 % INR 1.08 Cancelled (0.91-1.10) APTT 25 (23-33) Seconds D-Dimer Quant (PE/DVT) 0.30 (0.00-0.50) ug/ml Sodium 135 (135-149) mmol/L Potassium 4.1 (3.6-5.1) mmol/L Chloride 103 (96-114) mmol/L Carbon Dioxide 22 (20-32) mmol/L Anion Gap 10 (7-15) mEq/L BUN 17 (7-30) mg/dL Creatinine 0.8 (0.5-1.5) mg/dL Estimated Creat Clear 68.05 Estimated GFR 89 ml/min Glucose 135 H (60-115) mg/dL Lactate 1.1 (0.5-1.9) mmol/L Calcium 9.2 (8.4-10.6) mg/dL Total Bilirubin 0.4 (0.1-1.5) mg/dL Direct Bilirubin 0.0 (0.0-0.5) mg/dL AST 27 (12-35) U/L ALT 18 (4-35) U/L Alkaline Phosphatase 131 (40-150) U/L C-Reactive Protein 4.8 H (0.5-1.0) mg/dL Total Protein 7.8 (6.0-8.3) g/dL Albumin 4.8 (3.3-5.0) g/dL Lipase 242 (23-300) U/L Urine Color Yellow (Yellow) Urine Appearance Slightly Cloudy A (Clear) Urine pH 6.0 (5.0-8.5) Ur Specific [place] 1.025 (1.000-1.030) Urine Protein Negative (Negative) Urine Glucose (UA) Negative (Negative) Urine Ketones Negative (Negative) Urine Blood Trace-intact A (Negative) Urine Nitrite Negative (Negative) Urine Bilirubin Negative (Negative) Urine Urobilinogen 0.2 (0.2-1.0) Ur Leukocyte Esterase Negative (Negative) Urine RBC 2-5 A (0-2) Urine WBC 2-5 (0-5) Ur Squamous Epith Cells Few (None-Few) Urine Bacteria Moderate A (None) POC Troponin I 0.00 L (0.01-0.04) ng/ml <César Harding MD - Last Filed: 04/23/24 15:52> Lab Results 04/23/24 04/23/24 04/23/24 Range/Units 07:52 07:52 Unknown WBC 12.26 H (4.50-11.00) K/uL RBC 5.58 H (4.00-5.20) m/uL Hgb 16.3 H (12.0-16.0) gm/dL Hct 49.5 (33.0-51.0) % MCV 89 (80-100) fL MCH 29 (26-34) pg MCHC 33 (32-36) gm/dL RDW Coeff of Juan M 13.6 (11.5-15.5) % Plt Count 189 (140-440) K/uL Neut % (Auto) 94.0 H (42.0-72.0) % Lymph % (Auto) 2.0 L (20-44) % [place] % (Auto) 3.7 (0.0-11.0) % Eos % (Auto) 0.0 (0.0-7.0) % Baso % (Auto) 0.1 (0.0-3.0) % Neut # (Auto) 11.50 H (1.7-7.0) K/uL Lymph # (Auto) 0.20 L (0.90-2.90) K/uL [place] # (Auto) 0.50 (0.00-0.90) K/UL Eos # (Auto) 0.00 (0.00-0.50) K/uL Baso # (Auto) 0.00 (0.00-0.30) K/uL Abs Immat Gran (auto) 0.00 (0.00-0.30) K/uL Imm/Tot Granulo (auto) 0.2 % INR 1.08 Cancelled (0.91-1.10) APTT 25 (23-33) Seconds D-Dimer Quant (PE/DVT) 0.30 (0.00-0.50) ug/ml Sodium 135 (135-149) mmol/L Potassium 4.1 (3.6-5.1) mmol/L Chloride 103 (96-114) mmol/L Carbon Dioxide 22 (20-32) mmol/L Anion Gap 10 (7-15) mEq/L BUN 17 (7-30) mg/dL Creatinine 0.8 (0.5-1.5) mg/dL Estimated Creat Clear 68.05 Estimated GFR 89 ml/min Glucose 135 H (60-115) mg/dL Lactate 1.1 (0.5-1.9) mmol/L Calcium 9.2 (8.4-10.6) mg/dL Total Bilirubin 0.4 (0.1-1.5) mg/dL Direct Bilirubin 0.0 (0.0-0.5) mg/dL AST 27 (12-35) U/L ALT 18 (4-35) U/L Alkaline Phosphatase 131 (40-150) U/L C-Reactive Protein 4.8 H (0.5-1.0) mg/dL Total Protein 7.8 (6.0-8.3) g/dL Albumin 4.8 (3.3-5.0) g/dL Lipase 242 (23-300) U/L Urine Color Yellow (Yellow) Urine Appearance Slightly Cloudy A (Clear) Urine pH 6.0 (5.0-8.5) Ur Specific [place] 1.025 (1.000-1.030) Urine Protein Negative (Negative) Urine Glucose (UA) Negative (Negative) Urine Ketones Negative (Negative) Urine Blood Trace-intact A (Negative) Urine Nitrite Negative (Negative) Urine Bilirubin Negative (Negative) Urine Urobilinogen 0.2 (0.2-1.0) Ur Leukocyte Esterase Negative (Negative) Urine RBC 2-5 A (0-2) Urine WBC 2-5 (0-5) Ur Squamous Epith Cells Few (None-Few) Urine Bacteria Moderate A (None) POC Troponin I 0.00 L (0.01-0.04) ng/ml <Nano Jones MD - Last Filed: 04/23/24 12:43> Discharge Plan Discharge Clinical Impression: COVID-19 <César Harding MD - Last Filed: 04/23/24 15:52> Patient Disposition: Home, Self-Care <César Harding MD - Last Filed: 04/23/24 15:52> Condition: Stable <César Harding MD - Last Filed: 04/23/24 15:52> Instructions: COVID-19 (Coronavirus Disease 2019) (ED) <César Harding MD - Last Filed: 04/23/24 15:52> Additional Instructions: Ibuprofen and/or Tylenol as needed for body aches, headache, fever. Maintain hydration. I prescribed Zofran and Lomotil to use if needed for ongoing nausea and or diarrhea. Return for increasing respiratory difficulties or other worsening. <César Harding MD - Last Filed: 04/23/24 15:52> Prescriptions: New diphenoxylate-atropine [Lomotil] 2.5-0.025 mg tablet 1 tab PO DAILY PRN (Reason: diarrhea) Qty: 7 0RF ondansetron 4 mg tablet,disintegrating 4 mg PO Q8H PRN (Reason: nausea and vomiting) Qty: 7 0RF No Action methotrexate sodium (PF) 25 mg/mL solution 50 mg IM QWEEK pantoprazole 40 mg tablet,delayed release (DR/EC) 40 mg PO BID hydroxychloroquine 200 mg tablet 200 - 400 mg PO .UD Rx Instructions: Alternates every other day between 200 and 400mg. folic acid 1 mg tablet 3 mg PO DAILY Mirena 21 mcg/24 hours (8 yrs) 52 mg intrauterine device 1 device intrauterine ONCE Rx Instructions: as a single dose diphenoxylate-atropine [Lomotil] 2.5-0.025 mg tablet 1 tab PO TID PRN (Reason: diarrhea) Qty: 30 0RF pilocarpine HCl 5 mg tablet 5 mg PO 3XD rabeprazole 20 mg tablet,delayed release (DR/EC) 20 mg PO BID Qty: 60 3RF famotidine 40 mg tablet 40 mg PO QPM ketorolac 10 mg tablet 10 mg PO Q8H PRN (Reason: pain) Qty: 30 0RF Rx Instructions: maximum total duration of 5 days from all oral, intranasal, or parenteral formulations cetirizine-pseudoephedrine [Zyrtec-D] 5-120 mg tablet extended release 12 hr 1 tab PO BID PRN Emgality Pen 120 mg/mL pen injector 240 mg subcut MONTHLY Rx Instructions: as a single dose; administer as two 120 mg injections at separate sites dextroamphetamine-amphetamine 30 mg capsule,extended release 24hr 30 mg PO DAILY Qty: 30 0RF ondansetron 4 mg tablet,disintegrating 4 mg PO Q8H PRN sulfasalazine 500 mg tablet 1 g PO QDAY Rx Instructions: give with food (meal/snack) phentermine 37.5 mg capsule 37.5 mg PO QDAY Qty: 30 0RF Rx Instructions: must administer 30 minutes before or 1-2 hours after breakfast sumatriptan succinate 6 mg/0.5 mL pen injector 6 mg subcut .As Needed as needed PRN (Reason: migraine headache) Qty: 1 4RF Rx Instructions: 3 boxes with 3 refills. amlodipine 2.5 mg tablet 2.5 mg PO DAILY hydroxyzine HCl 25 mg tablet 25 mg PO .As Needed PRN (Reason: Headaches) Qty: 30 2RF dicyclomine 10 mg capsule 10 mg PO QID PRN (Reason: abdominal pain) Qty: 60 0RF wufgoqrwgj-ngzpvomsbwnju-jfur 50-325-40 mg tablet 1 tab PO Q4-6H PRN (Reason: pain) Qty: 60 0RF Wegovy 0.5 mg/0.5 mL pen injector 0.5 mg subcut QWEEK Qty: 2 0RF Rx Instructions: administer weeks 5 through 8 of therapy Wegovy 0.25 mg/0.5 mL pen injector 0.25 mg subcut QWEEK Qty: 2 2RF Rx Instructions: administer weeks 1 through 4 of therapy dextroamphetamine-amphetamine 15 mg capsule,extended release 24hr 15 mg PO DAILY Qty: 30 0RF alprazolam 2 mg tablet 4 mg PO QHS Qty: 60 0RF tranexamic acid 650 mg tablet 650 mg PO DAILY Qty: 60 0RF <César Harding MD - Last Filed: 04/23/24 15:52> Follow Up/Referrals: Taran Rivas MD [Primary Care Provider] - <César Harding MD - Last Filed: 04/23/24 15:52> Stand Alone Forms: MyHealth Info Instructions <César Harding MD - Last Filed: 04/23/24 15:52>
[2024-04-23] MEDS: KETOROLAC 30 MG/ML inj IVP (07:44)
[2024-04-23] MEDS: ONDANSETRON 2 MG/ML inj 4 MG IVP (07:46)
[2024-04-23] MEDS: 0.9 % SODIUM CHLORIDE 1000 ml 1,000 ML IV ×2 (07:48→11:24)
[2024-04-23 08:04] LABS: Basophils Percent Auto 0.1 % (0.0-3.0); Hematocrit 49.5 % (33.0-51.0); Hemoglobin* 16.3 gm/dL (12.0-16.0); Immature Granulocytes Pct Auto 0.2 %; Mean Corpuscular HGB Conc 33 gm/dL (32-36); Mean Corpuscular Hemoglobin 29 pg (26-34); Mean Corpuscular Volume 89 fL (80-100); Monocytes Percent Auto 3.7 % (0.0-11.0); Platelet Count* 189 K/uL (140-440); RDW Coefficient of Variation % 13.6 % (11.5-15.5); Red Blood Count 5.58 m/uL (4.00-5.20); White Blood Count* 12.26 K/uL (4.50-11.00)
[2024-04-23 08:08] LABS: Slide Review Reflex No
[2024-04-23 08:13] LABS: Lactate* 1.1 mmol/L (0.5-1.9)
[2024-04-23 08:17] VITALS: O2SAT 94
[2024-04-23 08:19] VITALS: BP 107/67; PULSE 111; RESP 20; TEMP 36.8; O2SAT 94
[2024-04-23 08:24] LABS: INR 1.08 (0.91-1.10); Partial Thromboplastin Time* 25 Seconds (23-33); Prothrombin Time 14.7 Seconds
[2024-04-23 08:33] LABS: Albumin* 4.8 g/dL (3.3-5.0); Chloride* 103 mmol/L (96-114); Sodium* 135 mmol/L (135-149)
[2024-04-23 08:34] LABS: Potassium* 4.1 mmol/L (3.6-5.1)
[2024-04-23 08:36] LABS: Creatinine* 0.8 mg/dL (0.5-1.5); Est. Creatinine Clearance* 68.05; Estimated Glomerular Filt Rate 89 ml/min
[2024-04-23 08:37] LABS: Blood Urea Nitrogen* 17 mg/dL (7-30); Calcium* 9.2 mg/dL (8.4-10.6); Glucose* 135 mg/dL (60-115)
[2024-04-23 08:39] LABS: C Reactive Protein* 4.8 mg/dL (0.5-1.0)
[2024-04-23 08:57] LABS: Lipase* 242 U/L (23-300)
[2024-04-23] MEDS: LORazepam 2 MG/ML inj 1 MG IVP (09:22)
[2024-04-23 09:57] LABS: Appearance Urine Slightly Cloudy (Clear); Bilirubin Urine Negative (Negative); Blood Urine Trace-intact (Negative); Color Urine Yellow (Yellow); Glucose Urine Negative (Negative); Ketones Urine Negative (Negative); Leukocyte Esterase Urine Negative (Negative); Nitrite Urine Negative (Negative); Protein Urine Negative (Negative); Specific Gravity Urine 1.025 (1.000-1.030); Urobilinogen Urine 0.2 (0.2-1.0)
[2024-04-23 10:08] LABS: Alanine Aminotransferase* 18 U/L (4-35); Alkaline Phosphatase* 131 U/L (40-150); Anion Gap 10 mEq/L (7-15); Aspartate Amino Transferase* 27 U/L (12-35); Bilirubin Total* 0.4 mg/dL (0.1-1.5); Carbon Dioxide* 22 mmol/L (20-32); Total Protein* 7.8 g/dL (6.0-8.3)
[2024-04-23] MEDS: MORPHINE 4 MG/ML INJ IVP (10:34)
[2024-04-23 10:38] LABS: Bacteria Urine Moderate; Squamous Epithelial Cell Urine Few (None-Few)
== END 2024-04-23 12:15 | disposition home or self-care (01) ==
PROVIDERS: Emergency Provider Family Medicine; PCP Internal Medicine
DX: U07.1 COVID-19 (principal)
CPT/HCPCS: 36415; 71045; 80048; 80076; 81001; 83605; 83690; 84484; 85025; 85379; 85610; 85730; 86140; 87086; 87186; 93005; 94761; 96374; 96375; 99284; J1885; J2060; J2270; J2405; J7030

== ENCOUNTER 2024-04-24 09:30 | Observation (INO) | payer BC, SELFPAY ==
[2024-04-24 09:55] VITALS: BP 116/80; PULSE 96; RESP 18; TEMP 37.4; O2SAT 97
--- NOTE | 2024-04-24 10:23 | ED.GENADULT ---
HPI - General Adult General Date Seen: 04/24/24 Chief complaint: Headache/Migraine Stated complaint: COVID+, weakness, UTI, migraine Time Seen by Provider: 04/24/24 09:31 Source: patient Mode of arrival: wheelchair Limitations: no limitations History of Present Illness HPI narrative: Patient is a very nice 53-year-old female who suffers from rheumatoid arthritis and lupus, COVID positive at x2 days, presents back here to the ER after was seen yesterday, describes a headache, and overall weakness and unsteadiness when she walks. She received yesterday fluids, Toradol, narcotics, for her headache and overall feeling. She was feeling better on discharge, but tells me now she is feeling about the same maybe even a little bit worse. She has not vomited and had diarrhea which was a primary problem yesterday, she is still having lower abdominal discomfort which she attributes to her UTI. She did grow Gram-negative rods on her urine, which likely is E coli. She reports a fever of 101 at home. She is not a candidate for Paxlovid given the fact she has too many interactions with other medications. She did receive her COVID immunizations. History of C difficile, but tells me she has had previous UTIs where they have used IV Rocephin, to bypass the got which have worked okay and have not triggered a resumption of her C diff. She does not had chest pain, shortness of breath, numbness and tingling or weakness, her headache is characteristic of her previous headaches she describes as a migraine. Associated symptoms: confusion, fever/chills, headaches, loss of appetite, syncope (Presyncope) and weakness Treatments prior to arrival: none Related Data Home Medications ?Medication ?Instructions ?Recorded ?Confirmed methotrexate sodium (PF) 25 mg/mL 50 mg IM QWEEK 11/25/21 04/04/24 injection solution pantoprazole 40 mg tablet,delayed 40 mg PO BID 11/25/21 04/04/24 release hydroxychloroquine 200 mg tablet 200 - 400 mg PO .UD 07/26/22 04/04/24 levonorgestrel (Mirena) 1 device intrauterine ONCE 07/26/22 04/04/24 ondansetron 4 mg disintegrating 4 mg PO Q8H PRN 04/07/23 04/04/24 tablet pilocarpine HCl 5 mg tablet 5 mg PO 3XD 06/10/23 04/04/24 sulfasalazine 500 mg tablet 1 g PO QDAY 08/01/23 04/04/24 famotidine 40 mg tablet 40 mg PO QPM 11/07/23 04/04/24 amlodipine 2.5 mg tablet 2.5 mg PO DAILY 01/18/24 04/04/24 cetirizine 5 mg-pseudoephedrine ER 1 tab PO BID PRN 03/23/24 04/04/24 120 mg tablet,extended release,12hr (Zyrtec-D) folic acid 1 mg tablet 3 mg PO DAILY 03/23/24 04/04/24 galcanezumab-gnlm 120 mg/mL 240 mg subcut MONTHLY 03/23/24 04/04/24 subcutaneous pen injector (Emgality Pen) Previous Rx's ?Medication ?Instructions ?Recorded hydroxyzine HCl 25 mg tablet 25 mg PO .As Needed PRN Headaches 10/15/22 #30 tabs diphenoxylate-atropine 2.5 1 tab PO TID PRN diarrhea #30 tabs 05/10/23 mg-0.025 mg tablet (Lomotil) dicyclomine 10 mg capsule 10 mg PO QID PRN abdominal pain 08/30/23 #60 caps rabeprazole 20 mg tablet,delayed 20 mg PO BID #60 tabs 10/18/23 release wquwrmqthd-dqsmmybncihwt-ypkelccz 1 tab PO Q4-6H PRN pain #60 tabs 01/25/24 50 mg-325 mg-40 mg tablet ketorolac 10 mg tablet 10 mg PO Q8H PRN pain #30 tabs 01/25/24 semaglutide (weight loss) 0.5 0.5 mg (0.5 mL) subcut QWEEK #2 mL 03/05/24 mg/0.5 mL subcutaneous pen injector (Shelly) phentermine 37.5 mg capsule 37.5 mg PO QDAY #30 caps 03/08/24 sumatriptan succinate 6 mg/0.5 mL 6 mg (0.5 mL) subcut .As Needed as 03/12/24 subcutaneous pen injector needed PRN migraine headache #1 mL dextroamphetamine-amphetamine ER 15 mg PO DAILY #30 caps 03/28/24 15 mg 24hr capsule,extend release dextroamphetamine-amphetamine ER 30 mg PO DAILY #30 caps 03/28/24 30 mg 24hr capsule,extend release semaglutide (weight loss) 0.25 0.25 mg (0.5 mL) subcut QWEEK #2 mL 03/28/24 mg/0.5 mL subcutaneous pen injector (Wegovy) tranexamic acid 650 mg tablet 650 mg PO DAILY Vitiligo #60 tabs 03/28/24 diphenoxylate-atropine 2.5 1 tab PO DAILY PRN diarrhea #7 tabs 04/23/24 mg-0.025 mg tablet (Lomotil) ondansetron 4 mg disintegrating 4 mg PO Q8H PRN nausea and 04/23/24 tablet vomiting #7 tabs alprazolam 2 mg tablet 4 mg (2 x 2 mg) PO QHS anxiety #60 04/24/24 tabs Allergies Allergy/AdvReac Type Severity Reaction Status Date / Time iodine Allergy Intermediate Fainting, Verified 04/04/24 14:44 sob hydrocodone Allergy Mild Itching Verified 04/04/24 14:44 adhesive Allergy Unknown Rash Verified 04/04/24 14:44 pecan nut Allergy Verified 04/04/24 14:44 Review of Systems Status of ROS: Reports: 10 or more systems reviewed and unremarkable except as noted in History and below [facility] Medical History Sinusitis ?J32.9 - Chronic sinusitis, unspecified (ICD-10) UTI (urinary tract infection) ?N39.0 - Urinary tract infection, site not specified (ICD-10) Knee injury ?S89.90XA - Unspecified injury of unspecified lower leg, initial encounter (ICD-10) C. difficile colitis ?A04.72 - Enterocolitis due to Clostridium difficile, not specified as recurrent (ICD-10) Complication of gastric band procedure (09/27/18) ?K95.09 - Other complications of gastric band procedure (ICD-10) Autoimmune disease ?M35.9 - Systemic involvement of connective tissue, unspecified (ICD-10) Surgical History Status post gastric banding ?Z98.84 - Bariatric surgery status (ICD-10) History of umbilical hernia repair ?Z98.890 - Other specified postprocedural states (ICD-10) ?Z87.19 - Personal history of other diseases of the digestive system (ICD-10) History of tonsillectomy ?Z90.89 - Acquired absence of other organs (ICD-10) History of surgery on left wrist ?Z98.890 - Other specified postprocedural states (ICD-10) History of right knee surgery ?Z98.890 - Other specified postprocedural states (ICD-10) History of removal of laparoscopic gastric banding device (09/27/18) ?Z98.84 - Bariatric surgery status (ICD-10) History of reduction mammoplasty ?Z98.890 - Other specified postprocedural states (ICD-10) History of laparoscopic adjustable gastric banding (2006) ?Z98.84 - Bariatric surgery status (ICD-10) History of cholecystectomy ?Z90.49 - Acquired absence of other specified parts of digestive tract (ICD-10) History of abdominoplasty (2017) ?Z98.890 - Other specified postprocedural states (ICD-10) Social History 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 Vital signs are within normal limits Speaking to me normally with a GCS of 15/15, pupils equal round reactive to light there is no scleral icterus redness TMs are normal oropharynx is normal, a little bit dry, TMs are normal, she has 2 beats of beating nystagmus laterally. Neck is supple full range of motion absence of meningismus is noted, cranial nerves 3-12 are normal. Chest is good air entry bilaterally with some fine crackles in the bases bilaterally heart sounds are normal no clicks murmurs or gallops her abdomen shows some mild tenderness in the lower abdominal region. No CVA tenderness, bowel sounds are quiet, she moves all extremities independently and well absence of rashes, able to sit up for me. Const: Vital Signs, click to edit/add: Vital Signs - 24 hr 04/24/24 09:55 Temperature 99.4 F Pulse Rate [Pulse Oximeter] 96 Respiratory Rate 18 Blood Pressure [Ri ght Upper Arm] 116/80 Pulse Oximetry 97 Oxygen Delivery Me thod Room Air Course Course ED Course: I spoke to Dr. Alvarenga from Hospital Medicine he will admit the patient observation, I think this is a reasonable course given her is symptoms and risk of falls Vital Signs Vital signs: Initial Vital Signs Temperature 99.4 F 04/24/24 09:55 Temperature Source Temporal Artery Scan 04/24/24 09:55 Pulse Rate 96 04/24/24 09:55 Respiratory Rate 18 04/24/24 09:55 Blood Pressure 116/80 04/24/24 09:55 Blood Pressure Mean 92 04/24/24 09:55 Pulse Oximetry 97 04/24/24 09:55 Oxygen Delivery Method Room Air 04/24/24 09:55 Vital Signs Temperature 99.4 F 04/24/24 09:55 Pulse Rate 96 04/24/24 09:55 Respiratory Rate 18 04/24/24 09:55 Blood Pressure 116/80 04/24/24 09:55 Pulse Oximetry 97 04/24/24 09:55 Oxygen Delivery Method Room Air 04/24/24 09:55 Temperature 99.4 F 04/24/24 09:55 Pulse Rate 96 04/24/24 09:55 Respiratory Rate 18 04/24/24 09:55 Blood Pressure 116/80 04/24/24 09:55 Pulse Oximetry 97 04/24/24 09:55 Oxygen Delivery Method Room Air 04/24/24 09:55 Medications Administered Medications: Discontinued Medications Generic Name Dose Route Start Last Admin Trade Name Freq PRN Reason Stop Dose Admin Sodium Chloride 1,000 mls @ 1,000 mls/hr 04/24/24 10:15 04/24/24 10:36 0.9 % Sodium Chloride 1000 Ml IV 04/24/24 11:14 1,000 mls/hr .Q1H JEREMI Administration Ceftriaxone Sodium 1 gm/ 100 mls @ 200 mls/hr 04/24/24 10:13 04/24/24 10:37 Sodium Chloride IVPB 04/24/24 10:14 200 mls/hr ONCE ONE Administration Ketorolac Tromethamine 30 mg 04/24/24 10:12 04/24/24 10:36 Ketorolac 30 Mg/Ml Inj IVP 04/24/24 10:13 30 mg ONCE ONE Administration Medical Decision Making MDM Narrative Medical decision making narrative: Life-threatening differential diagnosis considered include stroke, coronary artery disease, pneumonia, and heart failure. Other differential diagnosis include but are not limited to electrolyte imbalances, anemia, medication reactions, and urinary tract infection I consult Hospital Medicine, we will try IV fluids after shared decision-making she wants to try the IV Rocephin, along with the Toradol. Lab Data Labs: Lab Results 04/24/24 Range/Units 10:40 WBC 4.55 (4.50-11.00) K/uL RBC 4.91 (4.00-5.20) m/uL Hgb 14.3 (12.0-16.0) gm/dL Hct 43.2 (33.0-51.0) % MCV 88 (80-100) fL MCH 29 (26-34) pg MCHC 33 (32-36) gm/dL RDW Coeff of Juan M 13.6 (11.5-15.5) % Plt Count 158 (140-440) K/uL Neut % (Auto) 73.7 H (42.0-72.0) % Lymph % (Auto) 14.7 L (20-44) % [place] % (Auto) 11.2 H (0.0-11.0) % Eos % (Auto) 0.2 (0.0-7.0) % Baso % (Auto) 0.2 (0.0-3.0) % Neut # (Auto) 3.40 (1.7-7.0) K/uL Lymph # (Auto) 0.70 L (0.90-2.90) K/uL [place] # (Auto) 0.50 (0.00-0.90) K/UL Eos # (Auto) 0.01 (0.00-0.50) K/uL Baso # (Auto) 0.01 (0.00-0.30) K/uL Abs Immat Gran (auto) 0.00 (0.00-0.30) K/uL Imm/Tot Granulo (auto) 0.0 % Sodium 134 L (135-149) mmol/L Potassium 3.5 L (3.6-5.1) mmol/L Chloride 104 (96-114) mmol/L Carbon Dioxide 24 (20-32) mmol/L Anion Gap 6 L (7-15) mEq/L BUN 16 (7-30) mg/dL Creatinine 0.6 (0.5-1.5) mg/dL Estimated GFR 108 ml/min Glucose 83 (60-115) mg/dL Calcium 8.8 (8.4-10.6) mg/dL Discharge Plan Discharge Clinical Impression: Urinary tract infection, Headache, Weakness, Unsteady gait, COVID-19 Patient Disposition: Admitted As Observation Condition: Improved Prescriptions: No Action methotrexate sodium (PF) 25 mg/mL solution 50 mg IM QWEEK pantoprazole 40 mg tablet,delayed release (DR/EC) 40 mg PO BID hydroxychloroquine 200 mg tablet 200 - 400 mg PO .UD Rx Instructions: Alternates every other day between 200 and 400mg. folic acid 1 mg tablet 3 mg PO DAILY Mirena 21 mcg/24 hours (8 yrs) 52 mg intrauterine device 1 device intrauterine ONCE Rx Instructions: as a single dose diphenoxylate-atropine [Lomotil] 2.5-0.025 mg tablet 1 tab PO TID PRN (Reason: diarrhea) Qty: 30 0RF pilocarpine HCl 5 mg tablet 5 mg PO 3XD rabeprazole 20 mg tablet,delayed release (DR/EC) 20 mg PO BID Qty: 60 3RF famotidine 40 mg tablet 40 mg PO QPM ketorolac 10 mg tablet 10 mg PO Q8H PRN (Reason: pain) Qty: 30 0RF Rx Instructions: maximum total duration of 5 days from all oral, intranasal, or parenteral formulations cetirizine-pseudoephedrine [Zyrtec-D] 5-120 mg tablet extended release 12 hr 1 tab PO BID PRN Emgality Pen 120 mg/mL pen injector 240 mg subcut MONTHLY Rx Instructions: as a single dose; administer as two 120 mg injections at separate sites dextroamphetamine-amphetamine 30 mg capsule,extended release 24hr 30 mg PO DAILY Qty: 30 0RF ondansetron 4 mg tablet,disintegrating 4 mg PO Q8H PRN sulfasalazine 500 mg tablet 1 g PO QDAY Rx Instructions: give with food (meal/snack) phentermine 37.5 mg capsule 37.5 mg PO QDAY Qty: 30 0RF Rx Instructions: must administer 30 minutes before or 1-2 hours after breakfast sumatriptan succinate 6 mg/0.5 mL pen injector 6 mg subcut .As Needed as needed PRN (Reason: migraine headache) Qty: 1 4RF Rx Instructions: 3 boxes with 3 refills. amlodipine 2.5 mg tablet 2.5 mg PO DAILY diphenoxylate-atropine [Lomotil] 2.5-0.025 mg tablet 1 tab PO DAILY PRN (Reason: diarrhea) Qty: 7 0RF ondansetron 4 mg tablet,disintegrating 4 mg PO Q8H PRN (Reason: nausea and vomiting) Qty: 7 0RF hydroxyzine HCl 25 mg tablet 25 mg PO .As Needed PRN (Reason: Headaches) Qty: 30 2RF dicyclomine 10 mg capsule 10 mg PO QID PRN (Reason: abdominal pain) Qty: 60 0RF danrfbcpwd-znhqzrexfmfrl-qghy 50-325-40 mg tablet 1 tab PO Q4-6H PRN (Reason: pain) Qty: 60 0RF Wegovy 0.5 mg/0.5 mL pen injector 0.5 mg subcut QWEEK Qty: 2 0RF Rx Instructions: administer weeks 5 through 8 of therapy Wegovy 0.25 mg/0.5 mL pen injector 0.25 mg subcut QWEEK Qty: 2 2RF Rx Instructions: administer weeks 1 through 4 of therapy dextroamphetamine-amphetamine 15 mg capsule,extended release 24hr 15 mg PO DAILY Qty: 30 0RF tranexamic acid 650 mg tablet 650 mg PO DAILY Qty: 60 0RF alprazolam 2 mg tablet 4 mg PO QHS Qty: 60 0RF Follow Up/Referrals: Taran Rivas MD [Primary Care Provider] -
[2024-04-24] MEDS: KETOROLAC 30 MG/ML inj IVP ×2 (10:36→20:28)
[2024-04-24] MEDS: 0.9 % SODIUM CHLORIDE 1000 ml 1,000 ML IV (10:36)
[2024-04-24] MEDS: cefTRIAXone 1 GM in 0.9 % SODIUM CHLORIDE Mini-bag 100 ML IVPB (10:37)
[2024-04-24 10:52] LABS: Basophils Absolute Auto 0.01 K/uL (0.00-0.30); Basophils Percent Auto 0.2 % (0.0-3.0); Eosinophils Absolute Auto 0.01 K/uL (0.00-0.50); Eosinophils Percent Auto 0.2 % (0.0-7.0); Hematocrit 43.2 % (33.0-51.0); Hemoglobin* 14.3 gm/dL (12.0-16.0); Lymphocytes Percent Auto 14.7 % (20-44); Mean Corpuscular HGB Conc 33 gm/dL (32-36); Mean Corpuscular Hemoglobin 29 pg (26-34); Mean Corpuscular Volume 88 fL (80-100); Monocytes Percent Auto 11.2 % (0.0-11.0); Neutrophils Percent Auto 73.7 % (42.0-72.0); Platelet Count* 158 K/uL (140-440); RDW Coefficient of Variation % 13.6 % (11.5-15.5); Red Blood Count 4.91 m/uL (4.00-5.20); White Blood Count* 4.55 K/uL (4.50-11.00)
[2024-04-24 10:54] LABS: Slide Review Reflex No
[2024-04-24 11:04] LABS: Chloride* 104 mmol/L (96-114); Potassium* 3.5 mmol/L (3.6-5.1); Sodium* 134 mmol/L (135-149)
[2024-04-24 11:07] LABS: Creatinine* 0.6 mg/dL (0.5-1.5); Estimated Glomerular Filt Rate 108 ml/min
[2024-04-24 11:08] LABS: Anion Gap 6 mEq/L (7-15); Blood Urea Nitrogen* 16 mg/dL (7-30); Calcium* 8.8 mg/dL (8.4-10.6); Carbon Dioxide* 24 mmol/L (20-32); Glucose* 83 mg/dL (60-115)
[2024-04-24 11:22] LABS: C Reactive Protein* 12.8 mg/dL (0.5-1.0)
[2024-04-24 13:00] VITALS: BP 118/83; PULSE 74; RESP 18; TEMP 37.4; O2SAT 97; O2SAT 98; BMI 25.5
--- NOTE | 2024-04-24 13:16 | PM.IMHP1 ---
Hospitalist- H&P: HPI History of Present Illness Date Seen: 04/24/24 Chief complaint: COVID+, weakness, UTI, migraine Narrative: Waleska Diaz is a 53 year old female with rheumatoid arthritis, lupus, rain out's, mixed connective tissue disease, anxiety, C diff infection, polypharmacy admitted through the emergency department with a 2 day history of illness. She 1st became ill 2 days ago with head congestion. She developed upper back pain and diarrhea and vomiting. She has been taking antiemetics in the vomiting has stopped. The diarrhea is better. She has had no appetite and has had very little oral intake in the last day. She has developed a migraine headache and generalized achiness especially over her upper back head and neck. She has had a fever at home. She has had urinary symptoms suggestive of a UTI which is not uncommon for her. She tested positive for COVID infection 2 days ago. She was seen in the emergency room yesterday and discharge to home. She return to the emergency room today because of ongoing symptoms of illness described above as well as prominent generalized weakness, fatigue, malaise, myalgias and anorexia. [facility] Medical History Sinusitis ?J32.9 - Chronic sinusitis, unspecified (ICD-10) UTI (urinary tract infection) ?N39.0 - Urinary tract infection, site not specified (ICD-10) Knee injury ?S89.90XA - Unspecified injury of unspecified lower leg, initial encounter (ICD-10) C. difficile colitis ?A04.72 - Enterocolitis due to Clostridium difficile, not specified as recurrent (ICD-10) Complication of gastric band procedure (09/27/18) ?K95.09 - Other complications of gastric band procedure (ICD-10) Autoimmune disease ?M35.9 - Systemic involvement of connective tissue, unspecified (ICD-10) Surgical History Status post gastric banding ?Z98.84 - Bariatric surgery status (ICD-10) History of umbilical hernia repair ?Z98.890 - Other specified postprocedural states (ICD-10) ?Z87.19 - Personal history of other diseases of the digestive system (ICD-10) History of tonsillectomy ?Z90.89 - Acquired absence of other organs (ICD-10) History of surgery on left wrist ?Z98.890 - Other specified postprocedural states (ICD-10) History of right knee surgery ?Z98.890 - Other specified postprocedural states (ICD-10) History of removal of laparoscopic gastric banding device (09/27/18) ?Z98.84 - Bariatric surgery status (ICD-10) History of reduction mammoplasty ?Z98.890 - Other specified postprocedural states (ICD-10) History of laparoscopic adjustable gastric banding (2007) ?Z98.84 - Bariatric surgery status (ICD-10) History of cholecystectomy ?Z90.49 - Acquired absence of other specified parts of digestive tract (ICD-10) History of abdominoplasty (2018) ?Z98.890 - Other specified postprocedural states (ICD-10) Social History (Updated 04/24/24 @ 13:24 by Gildardo Alvarenga MD) Narrative: 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 Lives in [place] with her . She does not smoke. She does not drink alcohol. She does not have recreational drug use. Smoking Status: Never smoker Do you use any of these nicotine containing products: None Second hand tobacco smoke exposure: No How often do you have a drink containing alcohol: monthly or less How often do you have six or more drinks on one occasion: Never AUDIT-C Alcohol total score: 1 Non-prescribed substance use: denies use service: No Meds Home Medications and Allergies Home Medications ?Medication ?Instructions ?Recorded ?Confirmed ?Type methotrexate sodium (PF) 25 mg/mL 50 mg IM QWEEK 11/25/21 04/24/24 History injection solution pantoprazole 40 mg tablet,delayed 40 mg PO BID 11/25/21 04/24/24 History release hydroxychloroquine 200 mg tablet 200 - 400 mg PO .UD 07/26/22 04/24/24 History levonorgestrel (Mirena) 1 device intrauterine ONCE 07/26/22 04/24/24 History ondansetron 4 mg disintegrating 4 mg PO Q8H PRN 04/07/23 04/24/24 History tablet pilocarpine HCl 5 mg tablet 5 mg PO 3XD 06/10/23 04/04/24 History sulfasalazine 500 mg tablet 1 g PO DAILY 08/01/23 04/24/24 History famotidine 40 mg tablet 40 mg PO HS 11/07/23 04/24/24 History amlodipine 2.5 mg tablet 2.5 mg PO DAILY 01/18/24 04/24/24 History cetirizine 5 mg-pseudoephedrine ER 1 tab PO BID PRN 03/23/24 04/24/24 History 120 mg tablet,extended release,12hr (Zyrtec-D) folic acid 1 mg tablet 3 mg PO DAILY 03/23/24 04/24/24 History galcanezumab-gnlm 120 mg/mL 240 mg subcut MONTHLY 03/23/24 04/24/24 History subcutaneous pen injector (Emgality Pen) phentermine 37.5 mg capsule 37.5 mg PO DAILY 04/24/24 04/24/24 History Allergies Allergy/AdvReac Type Severity Reaction Status Date / Time iodine Allergy Intermediate Fainting, Verified 04/04/24 14:44 sob hydrocodone Allergy Mild Itching Verified 04/04/24 14:44 adhesive Allergy Unknown Rash Verified 04/04/24 14:44 pecan nut Allergy Verified 04/04/24 14:44 Exam Narrative: Exam Narrative: She is alert and appears in no distress. Head is atraumatic. Eyes are normal. Oropharynx with dry mucous membranes. Neck is supple without mass or adenopathy. Respirations are clear to auscultation. Cardiovascular: S1, S2, regular rate and rhythm. Abdomen: Bowel sounds active. Abdomen is soft she has mild diffuse tenderness. No mass. No peritonitis. Extremities without edema. Intact peripheral pulses. Good capillary refill. No rash. Const: Vital Signs, click to edit/add: Vital Signs - 24 hr 04/24/24 09:55 Temperature 99.4 F Pulse Rate [Pulse Oximeter] 96 Respiratory Rate 18 Blood Pressure [Ri ght Upper Arm] 116/80 Pulse Oximetry 97 Oxygen Delivery Me thod Room Air Documenting provider has reviewed patient's vital signs: yes Hospitalist - H&P: Result Labs Labs: Short CBC 04/24/24 Range/Units 10:40 WBC 4.55 (4.50-11.00) K/uL Hgb 14.3 (12.0-16.0) gm/dL Hct 43.2 (33.0-51.0) % Plt Count 158 (140-440) K/uL BMP 04/24/24 10:40 Sodium 134 L Potassium 3.5 L Chloride 104 Carbon Dioxide 24 BUN 16 Creatinine 0.6 Glucose 83 Calcium 8.8 Assessment and Plan Assessment and plan (1) COVID-19: Problem comment: This is likely the cause of her acute illness and symptoms noted below except for her UTI. Status: Acute (2) UTI (urinary tract infection): Problem comment: Pending urine cultures initiate ceftriaxone. Caution with history of C diff infection Status: Acute (3) Migraine: Problem comment: Symptomatic treatment Status: Acute (4) Myalgia: Problem comment: Symptomatic treatment Status: Acute (5) Nausea and vomiting: Problem comment: Symptomatic treatment. Hold semaglutide Status: Acute (6) Diarrhea: Problem comment: Symptomatic treatment. Consider C diff evaluation if not getting better Status: Acute (7) Anorexia: Problem comment: IV fluids until she is able to take in oral food and fluid Status: Acute Plan 53-year-old female admitted to the hospital with predominantly gastrointestinal symptoms presume secondary to COVID infection as well as urinary tract infection. She is admitted to the hospital for observation and management of symptoms, IV antibiotics and IV fluids pending cultures and clinical course. Multiple comorbidities noted above that make her immune compromised and at risk for GI problems including use of semaglutide. She has polypharmacy. Will hold on many of her medicines pending her recovery from this current illness. Total time spent today is 60 minutes in review of past medical history and other electronic records, discussion with the ER staff and patient clinical status, prognosis and plan of care.
[2024-04-24] MEDS: LACTATED RINGERS 1000 ML 1,000 ML 75 ML IV (13:22)
[2024-04-24 15:00] VITALS: BP 110/78; PULSE 71; RESP 18; TEMP 36.6; O2SAT 97
[2024-04-24] MEDS: BENZOCAINE/MENTHOL 1 EACH LOZENGE MUCOUS MEM (15:58)
[2024-04-24] MEDS: KETOROLAC 10 MG TABLET PO (18:26)
[2024-04-24 19:34] VITALS: BP 112/70; PULSE 85; RESP 18; TEMP 36.7; O2SAT 95
[2024-04-24] MEDS: ACETAMINOPHEN 325 MG TABLET 650 MG PO (19:57)
[2024-04-24] MEDS: SODIUM CHLORIDE 0.9 % (FLUSH) 10 ML SYRINGE 5 ML IVF (20:29)
[2024-04-24] MEDS: FAMOTIDINE 20 MG TABLET 40 MG PO (20:29)
[2024-04-24 22:28] VITALS: BP 113/70; PULSE 67; RESP 18; TEMP 36.3; O2SAT 95
[2024-04-24] MEDS: ALPRAZolam 0.25 MG TABLET 2 MG PO (22:59)
[2024-04-24 23:27] VITALS: PULSE 67; PULSE 71; RESP 18
[2024-04-25] MEDS: LACTATED RINGERS 1000 ML 1,000 ML 75 ML IV (01:13)
[2024-04-25] MEDS: guaiFENesin 100 MG/ML CUP PO (01:24)
[2024-04-25 01:29] VITALS: BP 114/73; PULSE 61; RESP 16; TEMP 36.6; O2SAT 97
--- NOTE | 2024-04-25 04:43 | PC.NURSE ---
Pt rested well this night. Remained afebrile. No N/V. Migrane went away about 0000 and did not return. Up IND in room.
[2024-04-25 07:30] LABS: Basophils Percent Auto 0.3 % (0.0-3.0); Eosinophils Percent Auto 0.9 % (0.0-7.0); Hematocrit 38.9 % (33.0-51.0); Hemoglobin* 12.7 gm/dL (12.0-16.0); Immature Granulocytes Pct Auto 0.3 %; Lymphocytes Percent Auto 28.1 % (20-44); Mean Corpuscular HGB Conc 33 gm/dL (32-36); Mean Corpuscular Hemoglobin 29 pg (26-34); Mean Corpuscular Volume 89 fL (80-100); Monocytes Percent Auto 13.9 % (0.0-11.0); Neutrophils Percent Auto 56.5 % (42.0-72.0); Platelet Count* 138 K/uL (140-440); RDW Coefficient of Variation % 13.4 % (11.5-15.5); Red Blood Count 4.37 m/uL (4.00-5.20); White Blood Count* 3.52 K/uL (4.50-11.00)
[2024-04-25 07:35] LABS: Chloride* 108 mmol/L (96-114); Potassium* 3.3 mmol/L (3.6-5.1); Sodium* 137 mmol/L (135-149)
[2024-04-25 07:38] LABS: Anion Gap 3 mEq/L (7-15); Carbon Dioxide* 26 mmol/L (20-32); Creatinine* 0.5 mg/dL (0.5-1.5); Est. Creatinine Clearance* 108.88; Estimated Glomerular Filt Rate 113 ml/min
[2024-04-25 07:39] LABS: Blood Urea Nitrogen* 10 mg/dL (7-30); Glucose* 82 mg/dL (60-115)
[2024-04-25 07:43] LABS: Slide Review Reflex No
[2024-04-25 08:20] LABS: C Reactive Protein* 3.8 mg/dL (0.5-1.0)
[2024-04-25 09:00] VITALS: BP 117/76; PULSE 69; RESP 16; TEMP 36.7; O2SAT 97
[2024-04-25] MEDS: FOLIC ACID 1 MG TABLET 3 MG PO (09:02)
[2024-04-25] MEDS: HYDROXYCHLOROQUINE 200 MG TABLET PO (09:02)
[2024-04-25] MEDS: sulfaSALAzine 500 MG TABLET 1000 MG PO (09:02)
[2024-04-25] MEDS: cefTRIAXone 1 GM in 0.9 % SODIUM CHLORIDE Mini-bag 100 ML IVPB (09:03)
--- NOTE | 2024-04-25 11:49 | P.DS_ITS ---
DS: Providers Provider Date Seen: 04/25/24 Date of admission: 04/24/24 12:06 Primary care physician: Taran Rivas MD Admitting Clinician: Gildardo Alvarenga MD Consults: 04/24/24 10:32 Consult to Physician [CONS] Urgent Comment: Consulting Provider: Gildardo Alvarenga Has provider been notified: Yes Attending Physician on discharge: Gildardo Alvarenga MD Date of Discharge: 04/25/24 DS: Diagnosis Discharge Diagnosis (1) COVID-19: Status: Acute Problem details: This is likely the cause of her acute illness and symptoms noted below except for her UTI. (2) Myalgia: Status: Acute Problem details: Symptomatic treatment (3) Nausea and vomiting: Status: Acute Problem details: Symptomatic treatment. Hold semaglutide (4) Diarrhea: Status: Acute Problem details: Symptomatic treatment. Consider C diff evaluation if not getting better (5) Anorexia: Status: Acute Problem details: IV fluids until she is able to take in oral food and fluid (6) Weakness: Status: Acute (7) Unsteady gait: Status: Acute (8) Headache: Status: Acute Problem details: Resolved (9) Urinary tract infection: Status: Acute Problem details: Ceftriaxone in the hospital. Keflex as an outpatient. History of C diff. Monitor for recurrent diarrhea. DS: Summary Hospital Course Hospital Course: Waleska Diaz is a 53 year old female with rheumatoid arthritis, lupus, rain out's, mixed connective tissue disease, anxiety, C diff infection, polypharmacy admitted through the emergency department with a 2 day history of illness. She 1st became ill 2 days ago with head congestion. She developed upper back pain and diarrhea and vomiting. She has been taking antiemetics in the vomiting has stopped. The diarrhea is better. She has had no appetite and has had very little oral intake in the last day. She has developed a migraine headache and generalized achiness especially over her upper back head and neck. She has had a fever at home. She has had urinary symptoms suggestive of a UTI which is not uncommon for her. She tested positive for COVID infection 2 days ago. She was seen in the emergency room yesterday and discharge to home. She return to the emergency room today because of ongoing symptoms of illness described above as well as prominent generalized weakness, fatigue, malaise, myalgias and anorexia. 04/25/2024: Overnight patient reports much improvement in her symptoms. Headache has resolved. Vomiting is resolved. Diarrhea is resolved. She has been able to eat today though still somewhat diminished appetite. Vital signs are normal Status at Discharge Overall status at discharge: patient is progressing back to baseline Time Spent with Patient Time attestation: Total time spent providing and/or coordinating discharge services:35 min Time spent: Greater than 30 minutes Exam Narrative: Exam Narrative: She is alert and appears in no distress. Respirations are clear to au scultation. Cardiovascular: S1, S2, regular rate and rhythm. Abdomen: Bowel sounds active. Abdomen has minimal tenderness in the lower abdomen. Much improved from yesterday. Extremities without edema. Const: Vital Signs, click to edit/add: Vital Signs - 24 hr 04/24/24 13:00 04/24/24 13:00 04/24/24 15:00 Temperature 99.4 F 97.8 F Pulse Rate [Apical ] 74 71 Pulse Rate [Pulse Oximeter] Respiratory Rate 18 18 18 Blood Pressure [Le ft Arm] 118/83 110/78 Pulse Oximetry 98 97 97 Oxygen Delivery Me thod Room Air Room Air Room Air 04/24/24 19:34 04/24/24 22:28 04/24/24 23:27 Temperature 98.0 F 97.4 F L Pulse Rate [Apical ] 71 Pulse Rate [Pulse Oximeter] 85 67 67 Respiratory Rate 18 18 18 Blood Pressure [Le ft Arm] 112/70 113/70 Pulse Oximetry 95 95 Oxygen Delivery Me thod Room Air Room Air 04/25/24 01:29 04/25/24 09:00 Temperature 97.8 F 98.1 F Pulse Rate [Apical ] Pulse Rate [Pulse Oximeter] 61 69 Respiratory Rate 16 16 Blood Pressure [Le ft Arm] 114/73 117/76 Pulse Oximetry 97 97 Oxygen Delivery Me thod Room Air Room Air Documenting provider has reviewed patient's vital signs: yes DS: Data Data Completed and Pending Labs on day of discharge: Labs from last 24 hours 04/25/24 06:30 WBC 3.52 L RBC 4.37 Hgb 12.7 Hct 38.9 MCV 89 MCH 29 MCHC 33 RDW Coeff of Juan M 13.4 Plt Count 138 L Neut % (Auto) 56.5 Lymph % (Auto) 28.1 [place] % (Auto) 13.9 H Eos % (Auto) 0.9 Baso % (Auto) 0.3 Neut # (Auto) 2.00 Lymph # (Auto) 1.00 [place] # (Auto) 0.50 Eos # (Auto) 0.00 Baso # (Auto) 0.00 Abs Immat Gran (auto) 0.00 Imm/Tot Granulo (auto) 0.3 Sodium 137 Potassium 3.3 L Chloride 108 Carbon Dioxide 26 Anion Gap 3 L BUN 10 Creatinine 0.5 Estimated Creat Clear 108.88 Estimated GFR 113 Glucose 82 Calcium 8.0 L C-Reactive Protein 3.8 H Discharge Plan Discharge Disposition: Home, Self-Care Date of Admission: 04/24/24 12:06 Attending Provider on Discharge: Gildardo Alvarenga Consulting Providers: Gildardo Alvarenga Primary Care Provider: Taran Rivas Condition: Improved Anticipated Discharge Date/Time: 04/25/24 10:35 Discharge Medications: New cephalexin 500 mg tablet 500 mg PO TID Qty: 15 0RF Continued methotrexate sodium (PF) 25 mg/mL solution 50 mg IM QWEEK pantoprazole 40 mg tablet,delayed release (DR/EC) 40 mg PO BID hydroxychloroquine 200 mg tablet 200 - 400 mg PO .UD Rx Instructions: Alternates every other day between 200 and 400mg. folic acid 1 mg tablet 3 mg PO DAILY Mirena 21 mcg/24 hours (8 yrs) 52 mg intrauterine device 1 device intrauterine ONCE Rx Instructions: as a single dose pilocarpine HCl 5 mg tablet 5 mg PO 3XD rabeprazole 20 mg tablet,delayed release (DR/EC) 20 mg PO BID Qty: 60 3RF famotidine 40 mg tablet 40 mg PO HS ketorolac 10 mg tablet 10 mg PO Q8H PRN (Reason: pain) Qty: 30 0RF Rx Instructions: maximum total duration of 5 days from all oral, intranasal, or parenteral formulations cetirizine-pseudoephedrine [Zyrtec-D] 5-120 mg tablet extended release 12 hr 1 tab PO BID PRN Emgality Pen 120 mg/mL pen injector 240 mg subcut MONTHLY Rx Instructions: as a single dose; administer as two 120 mg injections at separate sites dextroamphetamine-amphetamine 30 mg capsule,extended release 24hr 30 mg PO DAILY Qty: 30 0RF ondansetron 4 mg tablet,disintegrating 4 mg PO Q8H PRN sulfasalazine 500 mg tablet 1 g PO DAILY Rx Instructions: give with food (meal/snack) sumatriptan succinate 6 mg/0.5 mL pen injector 6 mg subcut .As Needed as needed PRN (Reason: migraine headache) Qty: 1 4RF Rx Instructions: 3 boxes with 3 refills. amlodipine 2.5 mg tablet 2.5 mg PO DAILY diphenoxylate-atropine [Lomotil] 2.5-0.025 mg tablet 1 tab PO DAILY PRN (Reason: diarrhea) Qty: 7 0RF phentermine 37.5 mg capsule 37.5 mg PO DAILY Rx Instructions: must administer 30 minutes before or 1-2 hours after breakfast hydroxyzine HCl 25 mg tablet 25 mg PO .As Needed PRN (Reason: Headaches) Qty: 30 2RF dicyclomine 10 mg capsule 10 mg PO QID PRN (Reason: abdominal pain) Qty: 60 0RF pxzpvmybqv-hujdjvkltimdz-gpez 50-325-40 mg tablet 1 tab PO Q4-6H PRN (Reason: pain) Qty: 60 0RF Wegovy 0.5 mg/0.5 mL pen injector 0.5 mg subcut QWEEK Qty: 2 0RF Rx Instructions: administer weeks 5 through 8 of therapy Wegovy 0.25 mg/0.5 mL pen injector 0.25 mg subcut QWEEK Qty: 2 2RF Rx Instructions: administer weeks 1 through 4 of therapy dextroamphetamine-amphetamine 15 mg capsule,extended release 24hr 15 mg PO DAILY Qty: 30 0RF tranexamic acid 650 mg tablet 650 mg PO DAILY Qty: 60 0RF alprazolam 2 mg tablet 4 mg PO QHS Qty: 60 0RF Discharge Orders: Discharge Order (Routine); Ordered 04/25/24 Ordered By: Gildardo Alvarenga Patient Education: Cephalexin (By mouth), COVID-19: Slow the Coronavirus Spread (DC) Activity Level: Activity as Tolerated Discharge Diet: Regular Follow Up Appointments: Taran Rivas MD [Primary Care Provider] - 05/08/24 7:45 am ([facility] for follow up with PCP ) Forms: Work/School Release, [facility] Info Instructions
[2024-04-25] MEDS: POTASSIUM CHLORIDE 10 MEQ CAPSULE ER 20 MEQ PO (12:12)
--- NOTE | 2024-04-25 13:47 | PC.NURSE ---
The patient discharged this afternoon, with her abx prescription as well as discharge information.... all belongings were sent with the patient. All of the patients questions were answered as well. Humera HERNANDEZ BSN
== END 2024-04-25 12:32 | disposition home or self-care (01) ==
LOC: ED 11:17 → MEDSURG 12:07
PROVIDERS: Admitting Provider Family Medicine; Emergency Provider Family Medicine; PCP Internal Medicine; Visit Provider Family Medicine
DX: U07.1 COVID-19 (principal); N39.0 Urinary tract infection, site not specified; B96.20 Unspecified Escherichia coli [E. coli] as the cause of diseases classified elsewhere; R53.1 Weakness; R26.81 Unsteadiness on feet; M79.18 Myalgia, other site; R51.9 Headache, unspecified; R11.2 Nausea with vomiting, unspecified; R19.7 Diarrhea, unspecified; R63.0 Anorexia; M54.89 Other dorsalgia; I10 Essential (primary) hypertension
CPT/HCPCS: 36415; 80048; 85025; 86140; 93005; 96361; 96365; 96366; 96375; 96376; 99284; 99285; A9270; G0378; J0696; J1885; J7030; J7120

== ENCOUNTER 2024-04-27 12:12 | Outpatient (CLI) | payer BC, SELFPAY | END 2024-04-27 12:13 | disposition home or self-care (01) | LOC: NFLDREF 05-04 01:45 | PROVIDERS: PCP Internal Medicine; Referring Provider Internal Medicine; Visit Provider Internal Medicine | DX: R19.7 Diarrhea, unspecified (principal) | CPT/HCPCS: 87493 ==

== ENCOUNTER 2024-05-03 13:45 | Outpatient (CLI) | payer BC, SELFPAY | END 2024-05-03 13:46 | disposition home or self-care (01) | PROVIDERS: PCP Internal Medicine; Visit Provider Internal Medicine | DX: N39.0 Urinary tract infection, site not specified (principal); Z77.21 Contact with and (suspected) exposure to potentially hazardous body fluids; U07.1 COVID-19 | CPT/HCPCS: 86703; 86704; 86803; 87086 ==

== ENCOUNTER 2024-05-24 13:47 | Outpatient (CLI) | payer BC, SELFPAY | END 2024-05-24 13:48 | disposition home or self-care (01) | LOC: NFLDREF 06-03 23:38 | PROVIDERS: PCP Internal Medicine; Referring Provider Internal Medicine; Visit Provider Internal Medicine | DX: N39.0 Urinary tract infection, site not specified (principal); B96.20 Unspecified Escherichia coli [E. coli] as the cause of diseases classified elsewhere | CPT/HCPCS: 87086; 87186 ==

== ENCOUNTER 2024-06-01 15:45 | Outpatient (CLI) | payer BC, SELFPAY | END 2024-06-01 15:46 | disposition home or self-care (01) | LOC: CT 15:46 | PROVIDERS: PCP Internal Medicine; Visit Provider Otolaryngology | DX: R51.9 Headache, unspecified (principal); S09.92XA Unspecified injury of nose, initial encounter | CPT/HCPCS: 70486 ==

== ENCOUNTER 2024-06-22 11:21 | Day surgery (SDC) | payer BC, SELFPAY ==
[2024-06-22] VITALS (23 sets, daily range): BP systolic 101–118; BP diastolic 66–90; PULSE 55–93; RESP 7–16; TEMP 35.9–36.7; O2SAT 94–99; BMI 25.7
--- OUTSIDE RECORDS SUMMARY | 2024-06-22 11:24 | XMS_ITS | Clinical Summary ---
[facility] Address [address] [place] [address] Care Team Providers Care Frame Stylist Name Role Phone Unavailable Primary Care Provider [...] for each transition of care or referral. [facility] Allergies Active Allergy Reactions Criticality Noted Date Comments Hydrocodone Itching 09/02/2020 Iodine Other, see comments 09/02/2020 Fainting, SOB Pecan Nut (Diagnostic) Edema,generalized 2020 Medications METHOTREXATE OR Inject 50 mg. Active amphetamine-de xtroamphetamin e (ADDERALL XR) 30 MG 24 hour release capsule Take 30 mg by mouth daily. Active amphetamine-de xtroamphetamin e (ADDERALL XR) 15 MG 24 hour release capsule Take 15 mg by mouth daily. Active LORazepam (ATIVAN) 2 MG tablet Take 2 mg by mouth every 6 hours as needed for Anxiety. Active aluminum-magne sium antacid-diphen hydrAMINE-lido sita-nystatin (MAGIC MOUTHWASH) suspension Swish and spit 5 [...] 6 mg subcutaneously once as needed. Active hydroxychloroq uine (PLAQUENIL) 200 MG tablet Take by mouth daily. Active butalbital-kevin taminophen-caf feine (FIORICET) 50-325-40 MG tablet Take 1 Tablet by mouth every 4 hours as needed for Pain. Active omeprazole (PRILOSEC) 20 MG capsule Take 20 mg by mouth daily. Take 1 hour before a meal. Active hydrOXYzine HCl (ATARAX) 25 MG tablet Take 25 mg by mouth three times a day as needed. Active estradiol (ESTRACE) 0.1 MG/GM vaginal creamIndicatio ns:Vaginal atrophy Place a dime size amount on your finger and place in vagina nightly. 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 Social History Tobacco Use Types Packs/Day Years Used Date Smoking Tobacco: Never Smokeless Tobacco: Never Comments Unknown Sex and Gender Information Value Date Recorded Sex Assigned at Not on file Legal Sex Female 3:58 PM CDT Gender Identity Not on file Sexual Orientation Not on file Plan of Treatment Health Maintenance Due Date Last Done Comments Cervical Cancer Screening Due 1971 Colon Cancer Screening Plan Due 1971 Hep C Screening (Preventive Services) 1971 HIV Screening (Preventive Services) 1987 Adult Preventive Visit 12/30/1989 HepB (1) 12/30/1990 Cholesterol 12/30/2016 Mammogram 01/29/2017 01/30/2016, 12/31, 12/26/2012 Pneumococcal 50+ Yrs (1 of 1 - PCV) 12/30/2021 Zoster/Shingles (1 of 2) 12/30/2021 COVID-19 Vaccine [...] on patient's age to complete this topic Meningococcal B Aged Out No longer el igible based on patient's age to complete this topic Pneumococcal Aged Out No longer eligi ble based on patient's age to complete this topic Insurance [facility] OUT OF STATE
--- OUTSIDE RECORDS SUMMARY | 2024-06-22 11:24 | XMS_ITS | Clinical Summary ---
Author Organization [facility] Address [address] [place] [id number] Care Team Providers Care Pharmacy Picking Technician Name Role Phone Katerina Contreras Unavailable Rohan [...] nasal solution (FLONASE)Indica tions:Sinus pressure Inhale 1 [place] into both nostrils once daily. 1 Bottle [...] dise ase (HC). Has seen Rheumatology at [place]. 08/23/2016 Overview (07/06/2017): Diagnosis of MCTD made in at [place] when living in [place]. 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 stable. last noted on MRI 2013 in [place] 08/23/2016 Attention deficit hyperactiv ity disorder (ADHD), [...] age 15-65 12/30/1986 Hepatitis C screening for ag e 18-79 12/30/1989 Lipids for age 45-75 12/30/2016 Depression screening for age 12+ 07/25/2018 07/25/2017, 06/10/2017, 09/15/2016, Additional history exists Mammogram for age 45-75 08/11/2018 08/11/2017 BMI (ht and wt on same day) for age 18+ 10/31/2018 10/31/2017, 06/27/2017, 06/17/2017, Additional history exists Pneumococcal series for age 50+ (1 of 1 - PCV) 12/30/2021 Zoster (shingles) series for age 50+ (1 of 2) 12/30/2021 Pap test for age 21-65 08/15/2023 , 08/14/2020, 01/14/2015 (Completed [facility]) COVID-19 vaccine series ( season) 2024 11/13/2021, 08/06/2021, 05/15/2020, Additional history exists Influenza for age 50-64 01/01/2024 01/31/20 17, 02/09/2016, 02/09/2016, Additional history exists Tetanus booster 07/11/2024 07/11/2014, 07/11/2014 Colonoscopy through age 75 11/11/2024 11/11/2014 Tdap Completed 07/11/2014, 07/11/2014 Procedures Procedure Name Priority Date/Time Associated Diagnosis Comments INHALATION THERAPY TEACHER THIN PREP PAP SCREEN IMAGED Routine 08/14/2020 12:00 PM CDT SCAN-MAMMOGRAPHY REPORT 08/11/2017 12:00 AM CDT from Last 3 Months or Most Recently Relevant to Health Maintenance Results * INHALATION THERAPY TEACHER THIN PREP PAP SCREEN IMAGED (08/14/2020 12:00 PM CDT) Case Report Gynecologic Cytology Report Case: [id number] Authorizing Provider: Kelly Alba Collected: 08/14/2020 1200 MMD Ordering Location: [facility] Received: 08/15/2020 0925 First Screen: Larry Verma Specimen: INHALATION THERAPY TEACHER ThinPrep Vial Screening, Cervical/Vaginal 08/22/2020 2:38 PM CDT [facility] INTERPRETATION/ RESULT NEGATIVE FOR INTRAEPITHELIAL LESION OR MALIGNANCY (NIL) (none) 08/22/2020 2:38 PM CDT [facility] IMEN ADEQUACY Satisfactory for evaluation Endocervical component present 08/22/2020 2:38 PM CDT [facility] HPV REQUEST HPV and PAP 08/22/2020 2:38 PM CDT [facility] Date of LMP 08/07/2020 08/22/2020 2:38 PM CDT [facility] Last Pap Date 02/02/2013 08/22/2020 2:38 PM CDT [facility] Last Pap Result NIL 2:38 PM CDT [facility] Additional Information 08/22/2020 2:38 PM CDT [facility] Comment: Interpreted at [facility] - [address], [place] [address] Automated Review Successful 08/22/2020 2:38 PM CDT [facility] Comment:Specimen processed s uccessfully by automated chaplain device, [employer] Imaging System, [employer] ANCILLARY TESTING INHALATION THERAPY TEACHER HPV Ordered, Please see separate report 08/22/2020 2:38 PM CDT [facility] Note The pap test [...] and malignant lesions. 08/22/2020 2:38 PM CDT [facility] Other (Cervical/Vagina l) 08/14/2020 12:00 PM CDT 08/15/2020 9:25 AM CDT us Kelly Alba MD PATHOLOGY/CYTOLOGY Final Result [facility] [address] [place] [address], [place] * SCAN-MAMMOGRAPHY REPORT (08/11/2017 12:00 AM CDT) Anatomical Region Laterality Modality Other us Scanner OTHER Final Result from Last 3 Months or Most Recently Relevant to Health Maintenance Insurance [employer] Care Teams Pharmacy Picking Technician Relationship Specialty Start Date End Date Pcp, No . PCP - General 02/28/19 Katerina Contreras Automotive Designer 07/21/16
[2024-06-22] MEDS: ACETAMINOPHEN 500 MG TABLET 1000 MG PO (12:05)
[2024-06-22] MEDS: OXYMETAZOLINE 0.05% NASAL SPRAY 2 SPRAY NOSTRIL-B (12:24)
[2024-06-22] MEDS: LACTATED RINGERS 1000 ML 1,000 ML 100 ML IV (12:25)
[2024-06-22] MEDS: SODIUM CHLORIDE 0.9 % (FLUSH) 10 ML SYRINGE IVF (12:25)
[2024-06-22] MEDS: BUPIVACAINE 0.5%/EPINEPHRINE 0.9 MG (30.9 ML) INJECTION (13:01)
[2024-06-22] MEDS: COCAINE HCL 4 % 4 ML SOLUTION NOSTRIL-B (13:01)
[2024-06-22] MEDS: AYR SALINE NASAL GEL 1 APPLIC NOSTRIL-B (13:01)
--- NOTE | 2024-06-22 13:26 | W.ANESCHARGE ---
Anesthesia Charges Start Date/Time Anesthesia Start Date: 06/22/24 Anesthesia Start Time: 12:45 Stop Date/Time Anesthesia Stop Date: 06/22/24 Anesthesia Stop Time: 13:28 Coding CPT Codes CPT Codes: ANESTH NOSE/SINUS SURGERY - 26338 ([id number]) P2 - PATIENT W/MILD SYST DISEASE, QK - BUILDING CLEANER 2-4 CNCRNT ANES PROC, QX - CUPOLA TAPPER SVC W/ MD MED DIRECTION
--- NOTE | 2024-06-22 13:27 | W.ANESCHARGE ---
Anesthesia Charges Start Date/Time Anesthesia Start Date: 06/22/24 Anesthesia Start Time: 12:45 Stop Date/Time Anesthesia Stop Date: 06/22/24 Anesthesia Stop Time: 13:28 Coding CPT Codes CPT Codes: ANESTH NOSE/SINUS SURGERY - 39225 ([id number]) P3 - PATIENT W/SEVERE SYS DISEASE, QK - INSTRUMENT MECHANIC 2-4 CNCRNT ANES PROC, QX - CIRCULAR SAW OPERATOR SVC W/ MD MED DIRECTION
[2024-06-22] MEDS: ONDANSETRON 2 MG/ML inj 4 MG IVP (13:34)
--- NOTE | 2024-06-22 13:37 | W.PM.ENTPROC ---
Procedure Note Date of procedure: 06/22/24 Procedure: Preop diagnosis depressed left superior nasal fracture, recurrent and chronic right maxillary rhinosinusitis Postprocedure diagnosis same Procedure closed reduction nasal fracture, endoscopic right maxillary antrostomy with tissue removal utilizing image guidance. Under general endotracheal anesthesia patient was prepped draped usual fashion the nose decongested and injected. On the right side the inferior cord the uncinate process was taken down exposing natural ostium to maxillary sinus. This was nearly completely occluded by polypoid tissue which was removed and the antrostomy enlarged to a 9 mm diameter. A small amount of thickened tissue was removed from the floor of the sinus as well. A small pack was placed in the side of the nose. The depressed superior left nasal fracture was marked externally and then the elevator inserted to the correct distance and the fracture was easily elevated. It appeared to be a greenstick fractures of the bone seemed to elevate nicely. External dressing of just paper tape was applied. The patient procedure well was taken recovery in satisfactory condition blood loss less than 10 mL. Surgeon: Jerry Lovelace MD
[2024-06-22] MEDS: fentaNYL 100 MCG/2 ML inj 50 MCG IVP (13:46)
--- NOTE | 2024-06-22 14:56 | SUR.PHASEI ---
patient met discharge criteria per anesthesia
--- NOTE | 2024-06-22 16:35 | SUR.PHASEII ---
Patient tolerated water & did not care for any food. While going through discharge instructions, patient told RN that she has had C. Diff in the recent past so she cannot take oral antibiotics. RN called Dr. Lovelace and told him what the patient said regarding C. Diff and antibiotics. Dr. Lovelace said that patient has to take at least 1 antibiotic pill a day to avoid toxic shock. RN told the patient and daughter that Dr. Lovelace said the antibiotic to be taken at least once a day to avoid toxic shock. Both the patient and the daughter verbalized understanding of this requirement. Patient and daughter verbalized understanding of these discharge instructions and verbalized readiness to be discharged home.
== END 2024-06-22 16:29 | disposition home or self-care (01) ==
PROVIDERS: PCP Internal Medicine; Visit Provider Otolaryngology
PROC: (CPT 31231; principal; 2024-06-22 12:30)
PROC: 0NSBXZZ Reposition Nasal Bone, External Approach (ICD-10-PCS; CPT 31267; 2024-06-22 12:30)
DX: J32.0 Chronic maxillary sinusitis (principal); S02.2XXA Fracture of nasal bones, initial encounter for closed fracture
CPT/HCPCS: 31267; 21315; 00160; 88305; A9270; J0330; J1100; J2250; J2405; J2704; J2765; J3010; J7120

== ENCOUNTER 2024-07-09 04:08 | Emergency (ER) | payer BC, SELFPAY ==
[2024-07-09] VITALS (9 sets, daily range): BP systolic 112–123; BP diastolic 60–79; PULSE 68–78; RESP 12–20; TEMP 36.7; O2SAT 97–100; BMI 24.6
--- OUTSIDE RECORDS SUMMARY | 2024-07-09 04:11 | XMS_ITS | Clinical Summary ---
Author Organization [facility] Address [address] [place] [address] Care Team Providers Care Seat Cover Maker Name Role Phone Unavailable Primary Care Provider [...] each transition of care or referral. [facility] All[facility] Active Allergy Reactions Criticality Noted Date [...] patient's age to complete this topic Insurance [facility] OUT OF STATE
--- OUTSIDE RECORDS SUMMARY | 2024-07-09 04:11 | XMS_ITS | Clinical Summary ---
Author Organization [employer] [facility] Address [address] [place] [id number] Care Team Providers Care Aeronautical Test Engineer Name Role Phone Katerina Contreras Unavailable [...] nasal solution (FLONASE)Indica tions:Sinus pressure Inhale 1 [place] into both nostrils once daily. 1 Bottle [...] dise ase (HC). Has seen Rheumatology at [facility]. 08/23/2016 Overview (07/06/2017): Diagnosis of MCTD made in at [facility] when living in [place]. 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 stable. last noted on MRI 2013 in [place] 08/23/2016 Attention deficit hyperactiv ity disorder (ADHD), predominantly inattentive type 06/24/2016 Essential hypertension 02/23/2016 Urinary urgency 06/30/2015 Diarrhea 11/12/2014 Overview (11/12/2014): EGD 10/2014 normal, laparoscopic band present Colonoscopy 10/2014 normal, internal hemorrhoids repeat in 10 years Hx of laparoscopic gastric banding 11/11/2014 Internal hemorrhoids 11/11/2014 Encounters Date Type Department Care Team Description 06/23/2024 Lab Requisition [facility] [phone] Jerry Lovelace MD from Last 3 Months Immunizations Immunization Administration Dates Next Due Influenza Virus, Unspecified [...] 1:50 PM CDT Oxygen Saturation 95% 01/23/2020 1: 50 PM CDT Inhaled Oxygen Concentration - - [...] , 08/14/2020, 01/14/2015 (Completed outside of [facility]) ([place]) Influenza for age 50-64 01/01/202405/2016, 02/09/2016, 02/09/2016, Additional history exists COVID-19 vaccine series ( season) 2024 11/13/2021, 08/06/2021, 05/15/2020, Additional history exists Tetanus booster 07/11/2024 07/11/2014, 07/11/2014 Colonoscopy through age 75 11/11/2024 11/11/2014 Tdap Completed 07/11/2014, 07/11/2014 Procedures Procedure Name Priority Date/Time Associated Diagnosis Comments LAB TRACKING EVENT Routine 06/22/2024 1: 08 PM MINCING MACHINE OPERATOR PATH TISSUE EXAM Routine 06/22/2024 1:08 PM MINCING MACHINE OPERATOR VETERINARY MEDICINE DOCTOR THIN PREP PAP SCREEN IMAGED Routine 08/14/2020 12:00 PM CDT SCAN-MAMMOGRAPHY REPORT 08/11/2017 12:00 AM CDT from Last 3 Months or Most Recently Relevant to Health Maintenance Results * LAB TRACKING EVENT (06/22/2024 1:08 PM MINCING MACHINE OPERATOR) Other (Other) Client Collect / Unknown 06/22/2024 1:08 PM MINCING MACHINE OPERATOR 06/23/2024 7:47 AM MINCING MACHINE OPERATOR us Jerry Lovelace MD LAB BILL ONLY Final Result [facility] [address] [place] [address], * PATH TISSUE EXAM (06/22/2024 1:08 PM MINCING MACHINE OPERATOR) Case Report Pathology Report Case: [id number] Authorizing Provider: Jerry Lovelace, Collected: 06/22/2024 1308 MD Ordering Location: [facility] Received: 06/25/2024 0828 Pathologist: Olimpia Mast MD Specimen: Right Maxillary Sinus Content 06/26/2024 11:26 AM MINCING MACHINE OPERATOR [facility] Final Diagnosis A) PARANASAL SINUSES, RIGHT MAXILLARY, EXCISION: 1. Chronic inflammation 2. Fragments of benign sinonasal polyp 3. Negative for neoplasm 06/26/2024 11:26 AM MINCING MACHINE OPERATOR [facility] Clinical Information Maxillary sinusitis 06/26/2024 11:26 AM [facility] Gross Description A) Received in formalin, labeled with the patient's name and right maxillary sinus contents, is a 1.0 x 0.8 x 0.2 cm aggregate of aragon mucosa admixed with scant aragon delicate bone fragments. The specimen is entirely submitted in one cassette. TLF 06/25/2024 06/26/2024 11:26 AM [facility] Microscopic Description The final diagnosis is based on microscopic examination of appropriate sections of all specimens. 06/26/2024 11:26 AM MINCING MACHINE OPERATOR [facility] Additional Information Interpreted at [facility] - [address] [place] [address]. [place] [address] 06/26/2024 11:26 AM [facility] Other (Right Maxillary Sinus Content) 06/22/2024 1:08 PM MINCING MACHINE OPERATOR 06/25/2024 8:28 AM MINCING MACHINE OPERATOR us Jerry Lovelace MD PATHOLOGY/CYTOLOGY Fi nal Result [facility] [address] [place] [address], * VETERINARY MEDICINE DOCTOR THIN PREP PAP SCREEN IMAGED (08/14/2020 12:00 PM CDT) Case Report Gynecologic Cytology Report Case: [id number] Authorizing Provider: Kelly Alba Collected: 08/14/2020 1200 MMD Ordering Location: [facility] Received: 08/15/2020 0925 First Screen: Larry Verma Specimen: VETERINARY MEDICINE DOCTOR ThinPrep Vial Screening, Cervical/Vaginal 08/22/2020 2:38 PM CDT [facility]- ENTRAL LAB[facility]AT[facility] INTERPRETATION/ RESULT NEGATIVE FOR INTRAEPITHELIAL LESION OR MALIGNANCY (NIL) (none) 08/22/2020 2:38 PM CDT [facility] IMEN ADEQUACY Satisfactory for evaluation Endocervical component present 08/22/2020 2:38 PM CDT [facility] HPV REQUEST HPV and PAP 08/22/2020 2:38 PM CDT [facility] Date of LMP 08/07/2020 08/22/2020 2:38 PM CDT [facility] Last Pap Date 02/02/2013 08/22/2020 2:38 PM CDT [facility] Last Pap Result NIL 2:38 PM CDT [facility] Additional Information 08/22/2020 2:38 PM CDT [facility] Comment: Interpreted at [facility] - [address] [facility] [address], [place] [address] Automated Review Successful 08/22/2020 2:38 PM CDT [facility] Comment:Specimen processed s uccessfully by automated movie theater manager device, ThinPrep Imaging System, [employer] ANCILLARY TESTING VETERINARY MEDICINE DOCTOR HPV Ordered, Please see separate report 08/22/2020 2:38 PM CDT [facility] Note The pap test is a [...] and malignant lesions. 08/22/2020 2:38 PM CDT [facility] Other (Cervical/Vagina l) 08/14/2020 12:00 PM CDT 08/15/2020 9:25 AM CDT us Kelly Alba MD PATHOLOGY/CYTOLOGY Final Result [facility] [address] [place] [address], [place] * SCAN-MAMMOGRAPHY REPORT (08/11/2017 12:00 AM CDT) Anatomical Region Laterality Modality Other us Scanner OTHER Final Result from Last 3 Months or Most Recently Relevant to Health Maintenance Insurance [facility] NON-PR-[facility] Care Teams Aeronautical Test Engineer Relationship Specialty Start Date End Date Pcp, No . PCP - General 02/28/19 Katerina Contreras Home Child Care Provider 07/21/16
--- NOTE | 2024-07-09 04:14 | ED_ITS ---
HPI - General Adult General Chief complaint: Chest Pain Stated complaint: chest pain Time Seen by Provider: 07/09/24 04:11 History of Present Illness HPI narrative: CC: Right Chest/Back Pain pt. woke up around 0400 with pain. nausea, but no vomiting. denies fevers, diarrhea. 53-year-old woman presenting to the emergency department with concern of chest pain. Apparently woke from sleep with pain going from epigastrium up into her right shoulder area. Nothing she can do to affect it. Some nausea. No cough or cold symptoms preceding. No recent rashes. Does have a history of gastric banding and cholecystectomy, reflux esophagitis and gastroparesis, SVT and mitral prolapse Related Data Home Medications ?Medication ?Instructions ?Recorded ?Confirmed methotrexate sodium (PF) 25 mg/mL 50 mg IM QWEEK 11/25/21 06/26/24 injection solution pantoprazole 40 mg tablet,delayed 40 mg PO BID 11/25/21 06/26/24 release hydroxychloroquine 200 mg tablet 200 - 400 mg PO .UD 07/26/22 06/26/24 levonorgestrel (Mirena) 1 device intrauterine ONCE 07/26/22 06/26/24 sulfasalazine 500 mg tablet 1 g PO DAILY 08/01/23 06/26/24 famotidine 40 mg tablet 40 mg PO HS 11/07/23 06/26/24 cetirizine 5 mg-pseudoephedrine ER 1 tab PO BID PRN 03/23/24 06/26/24 120 mg tablet,extended release,12hr (Zyrtec-D) folic acid 1 mg tablet 3 mg PO DAILY 03/23/24 06/26/24 Previous Rx's ?Medication ?Instructions ?Recorded rabeprazole 20 mg tablet,delayed 20 mg PO BID #60 tabs 10/18/23 release amlodipine 2.5 mg tablet 2.5 mg PO DAILY #90 tabs 05/01/24 fluticasone propionate 50 1 spray intranasal Q12H #16 grams 05/03/24 mcg/actuation nasal spray,suspension (Flonase Allergy Relief) dicyclomine 10 mg capsule 10 mg PO QID PRN abdominal pain 05/24/24 #60 caps sumatriptan succinate 6 mg/0.5 mL 6 mg (0.5 mL) subcut .As Needed as 05/24/24 subcutaneous pen injector needed PRN migraine headache #1 mL alprazolam 2 mg tablet 4 mg (2 x 2 mg) PO QHS anxiety #60 06/19/24 tabs ighwrvfykv-aprdarwqldtwo-zwnbyuyz 1 tab PO Q4-6H PRN pain #60 tabs 06/19/24 50 mg-325 mg-40 mg tablet dextroamphetamine-amphetamine ER 15 mg PO DAILY #30 caps 06/19/24 15 mg 24hr capsule,extend release dextroamphetamine-amphetamine ER 30 mg PO DAILY #30 caps 06/19/24 30 mg 24hr capsule,extend release galcanezumab-gnlm 120 mg/mL 240 mg (2 mL) subcut MONTHLY #1 mL 06/19/24 subcutaneous pen injector (Emgality Pen) tranexamic acid 650 mg tablet 650 mg PO DAILY Vitiligo #60 tabs 06/19/24 ketorolac 10 mg tablet 10 mg PO Q8H PRN pain #30 tabs 06/26/24 semaglutide (weight loss) 1 mg/0.5 1 mg (0.5 mL) subcut QWEEK #2 mL 07/08/24 mL subcutaneous pen injector (Wegovy) Allergies Allergy/AdvReac Type Severity Reaction Status Date / Time iodine Allergy Intermediate Fainting, Verified 07/09/24 04:17 sob hydrocodone Allergy Mild Itching Verified 07/09/24 04:17 adhesive Allergy Unknown Rash Verified 07/09/24 04:17 pecan nut Allergy Verified 07/09/24 04:17 Review of Systems Status of ROS: Reports: 6 or more systems reviewed and unremarkable except as noted in History and below [facility] Medical History C. difficile colitis ?A04.72 - Enterocolitis due to Clostridium difficile, not specified as recurrent (ICD-10) Pelvic floor dysfunction ?M62.89 - Other specified disorders of muscle (ICD-10) Exposure to blood ?Z77.21 - Contact with and (suspected) exposure to potentially hazardous body fluids (ICD-10) Needle stick injury Hypertension ?I10 - Essential (primary) hypertension (ICD-10) Sinusitis ?J32.9 - Chronic sinusitis, unspecified (ICD-10) UTI (urinary tract infection) ?N39.0 - Urinary tract infection, site not specified (ICD-10) Knee injury ?S89.90XA - Unspecified injury of unspecified lower leg, initial encounter (ICD-10) Complication of gastric band procedure (09/27/18) ?K95.09 - Other complications of gastric band procedure (ICD-10) Autoimmune disease ?M35.9 - Systemic involvement of connective tissue, unspecified (ICD-10) Surgical History Status post gastric banding ?Z98.84 - Bariatric surgery status (ICD-10) History of umbilical hernia repair ?Z98.890 - Other specified postprocedural states (ICD-10) ?Z87.19 - Personal history of other diseases of the digestive system (ICD-10) History of tonsillectomy ?Z90.89 - Acquired absence of other organs (ICD-10) History of surgery on left wrist ?Z98.890 - Other specified postprocedural states (ICD-10) History of right knee surgery ?Z98.890 - Other specified postprocedural states (ICD-10) History of removal of laparoscopic gastric banding device (09/27/18) ?Z98.84 - Bariatric surgery status (ICD-10) History of reduction mammoplasty ?Z98.890 - Other specified postprocedural states (ICD-10) History of laparoscopic adjustable gastric banding (2006) ?Z98.84 - Bariatric surgery status (ICD-10) History of cholecystectomy ?Z90.49 - Acquired absence of other specified parts of digestive tract (ICD- 10) History of abdominoplasty (2017) ?Z98.890 - Other specified postprocedural states (ICD-10) Social History Narrative: 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 Lives in [place] with her . She does not smoke. She does not drink alcohol. She does not have recreational drug use. What is your current living situation?: I presently have a place to live Problems where you live: no known problems Problems where you live details: N/A In the past 12 months, utilities in danger of being shut off: no In past 12 months, lack of transportation kept you from medical appts, meetings, work, or getting things needed for daily living: no In the past 12 mos, have been you worried that your food would run out before you had money to buy more?: never true In the past 12 mos, the food you bought just didn't last and you didn't have money to buy more?: never true Smoking Status: Never smoker Do you use any of these nicotine containing products: None Second hand tobacco smoke exposure: No How often do you have a drink containing alcohol: monthly or less How often do you have six or more drinks on one occasion: Never AUDIT-C Alcohol total score: 1 Non-prescribed substance use: denies use Caffeine: No How often does anyone, including family, friends and others, physically hurt you : never How often does anyone, including family, friends and others, insult or talk down to you: never How often does anyone, including family, friends and others, threaten you with harm: never How often does anyone, including family, friends and others, scream or curse at you: never service: No Exam Narrative: Exam Narrative: Is with labored breathing but not tachypneic while in apparently significant pain. Moaning. Hands at her chest. Lungs are clear. Heart in regular rate and rhythm. is soft and not really tender. Pain is reproducible along the chest up into the shoulder and then upper right back as well. Moving all extremities without difficulty. She is well-perfused. Const: Vital Signs, click to edit/add: Vital Signs - 24 hr 07/09/24 04:15 07/09/24 04:20 07/09/24 04:32 Temperature 98.0 F Pulse Rate 76 Pulse Rate [Right Pulse Oximeter] 68 Respiratory Rate 20 16 Blood Pressure 123/77 Blood Pressure [Ri ght Upper Arm] 114/79 Pulse Oximetry 100 100 97 Oxygen Delivery Me thod Room Air 07/09/24 05:02 07/09/24 05:32 07/09/24 06:01 Temperature Pulse Rate 77 78 75 Pulse Rate [Right Pulse Oximeter] Respiratory Rate 14 15 14 Blood Pressure 112/74 117/74 118/74 Blood Pressure [Ri ght Upper Arm] Pulse Oximetry 98 98 98 Oxygen Delivery Me thod 07/09/24 06:32 07/09/24 07:06 07/09/24 07:07 Temperature 98.0 F 98.0 F Pulse Rate 71 Pulse Rate [Right Pulse Oximeter] 74 74 Respiratory Rate 12 12 12 Blood Pressure 112/60 Blood Pressure [Ri ght Upper Arm] 121/74 121/74 Pulse Oximetry 98 98 Oxygen Delivery Me thod Room Air Documenting provider has reviewed patient's vital signs: yes Course Vital Signs Vital signs: Initial Vital Signs Respiratory Effort Normal, Spontaneous, Non-Labored 07/09/24 04:09 Respiratory Depth Normal 07/09/24 04:09 Respiratory Pattern Normal 07/09/24 04:09 Vital Signs Temperature 98.0 F 07/09/24 04:15 Pulse Rate 68 07/09/24 04:15 Respiratory Rate 20 07/09/24 04:15 Blood Pressure 114/79 07/09/24 04:15 Pulse Oximetry 100 07/09/24 04:15 Oxygen Delivery Method Room Air 07/09/24 04:15 Temperature 98.0 F 07/09/24 07:07 Pulse Rate 74 07/09/24 07:07 Respiratory Rate 12 07/09/24 07:07 Blood Pressure 121/74 07/09/24 07:07 Pulse Oximetry 98 07/09/24 07:06 Oxygen Delivery Method Room Air 07/09/24 07:06 Medications Administered Medications: Discontinued Medications Generic Name Dose Route Start Last Admin Trade Name Freq PRN Reason Stop Dose Admin Sodium Chloride 1,000 mls @ 1,000 mls/hr 07/09/24 04:29 07/09/24 05:37 0.9 % Sodium Chloride 1000 Ml IV 07/09/24 05:28 Infused .Q1H ONE Infusion Ketorolac Tromethamine 30 mg 07/09/24 05:30 07/09/24 05:32 Ketorolac 30 Mg/Ml Inj IVP 07/09/24 05:31 30 mg ONCE ONE Administration Lidocaine/Aluminum/Magnesium/Simeth 30 ml 07/09/24 06:30 07/09/24 06:34 Gi Cocktail (Visc Lido/Antacid) 30 Ml PO 07/09/24 06:31 30 ml ONCE ONE Administration Lorazepam 0.5 mg 07/09/24 04:30 07/09/24 04:35 Lorazepam 2 Mg/Ml Inj IVP 07/09/24 04:31 0.5 mg ONCE ONE Administration Morphine Sulfate 4 mg 07/09/24 04:29 07/09/24 04:34 Morphine 4 Mg/Ml Inj IVP 07/09/24 04:30 4 mg ONCE ONE Administration Ondansetron HCl 4 mg 07/09/24 04:29 07/09/24 04:34 Ondansetron 2 Mg/Ml Inj IVP 07/09/24 04:30 4 mg ONCE ONE Administration Medical Decision Making MDM Narrative Medical decision making narrative: Appears to have rather significant pain. I am reassured by the reproducibility of it however. Will still evaluate for ischemic cardiovascular event, pulmonary embolus, dissection, pneumothorax or pneumomediastinum. Does appear to be amplified by some degree of anxiety. May have been gastroesophageal reflux trigger. Did give morphine and Ativan initially along with Zofran and IV fluids. Appears to be improved, sleeping on reassessment. Return to speak with her. Labs are reassuring at this point. Including normal troponin and low D-dimer She is clearly sleepy and then reporting no real change in discomfort. Pain is reproducible again to palpation of the right side chest and back. Appears to have chest wall pain at this point. Ordering ketorolac dosing. Low risk for PE with Wells criteria. Will it need to recheck troponin -- this is unchanged/negative Later discussing history of reflux esophagitis and gastroparesis apparently will be in about 3 weeks anticipating receiving Botox injections I believe in distal esophagus? We decide to dose yet a GI cocktail. Overall improved. See patient discharge plan for further discussion I am happy you are feeling better. Stay well-hydrated. Consider a more bland diet over the next couple of days. Best wishes for your upcoming procedure. Medical Records Medical records reviewed: Yes I reviewed the patient's medical records Lab Data Lab results reviewed: Yes I reviewed the patient's lab results Labs: Lab Results 07/09/24 07/09/24 07/09/24 Range/Units 04:20 04:29 06:00 WBC 7.57 (4.50-11.00) K/uL RBC 4.78 (4.00-5.20) m/uL Hgb 14.3 (12.0-16.0) gm/dL Hct 42.7 (33.0-51.0) % MCV 89 (80-100) fL MCH 30 (26-34) pg MCHC 34 (32-36) gm/dL RDW Coeff of Juan M 13.1 (11.5-15.5) % Plt Count 245 (140-440) K/uL Neut % (Auto) 54.1 (42.0-72.0) % Lymph % (Auto) 37.5 (20-44) % [place] % (Auto) 6.9 (0.0-11.0) % Eos % (Auto) 1.1 (0.0-7.0) % Baso % (Auto) 0.3 (0.0-3.0) % Neut # (Auto) 4.10 (1.7-7.0) K/uL Lymph # (Auto) 2.84 (0.90-2.90) K/uL [place] # (Auto) 0.50 (0.00-0.90) K/UL Eos # (Auto) 0.08 (0.00-0.50) K/uL Baso # (Auto) 0.02 (0.00-0.30) K/uL Abs Immat Gran (auto) 0.01 (0.00-0.30) K/uL Imm/Tot Granulo (auto) 0.1 % D-Dimer Quant (PE/DVT) 0.15 (0.00-0.50) ug/ml Sodium 139 (135-149) mmol/L Potassium 3.2 L (3.6-5.1) mmol/L Chloride 102 (96-114) mmol/L Carbon Dioxide 30 (20-32) mmol/L Anion Gap 7 (7-15) mEq/L BUN 14 (7-30) mg/dL Creatinine 0.7 (0.5-1.5) mg/dL Estimated Creat Clear 77.77 Estimated GFR 104 ml/min Glucose 102 (60-115) mg/dL Calcium 9.1 (8.4-10.6) mg/dL Total Bilirubin 0.8 (0.1-1.5) mg/dL Direct Bilirubin 0.4 (0.0-0.5) mg/dL AST 45 H (12-35) U/L ALT 23 (4-35) U/L Alkaline Phosphatase 128 (40-150) U/L Troponin I < 0.01 L (0.01-0.04) ng/mL NT-Pro-B Natriuret Pep < 20 pg/mL Total Protein 7.0 (6.0-8.3) g/dL Albumin 4.4 (3.3-5.0) g/dL POC Troponin I 0.00 L 0.00 L (0.01-0.04) ng/ml ECG Data Attestation: I personally reviewed and interpreted this ECG as follows: (Normal sinus rhythm. QTc of 492. Rate of 65) Discharge Plan Discharge Clinical Impression: Atypical chest pain Patient Disposition: Home w/ Parent or Adult Condition: Improved Additional Instructions: I am happy you are feeling better. Stay well-hydrated. Consider a more bland diet over the next couple of days. Best wishes for your upcoming procedure. Prescriptions: No Action methotrexate sodium (PF) 25 mg/mL solution 50 mg IM QWEEK pantoprazole 40 mg tablet,delayed release (DR/EC) 40 mg PO BID hydroxychloroquine 200 mg tablet 200 - 400 mg PO .UD Rx Instructions: Alternates every other day between 200 and 400mg. folic acid 1 mg tablet 3 mg PO DAILY Mirena 21 mcg/24 hours (8 yrs) 52 mg intrauterine device 1 device intrauterine ONCE Rx Instructions: as a single dose rabeprazole 20 mg tablet,delayed release (DR/EC) 20 mg PO BID Qty: 60 3RF famotidine 40 mg tablet 40 mg PO HS cetirizine-pseudoephedrine [Zyrtec-D] 5-120 mg tablet extended release 12 hr 1 tab PO BID PRN dicyclomine 10 mg capsule 10 mg PO QID PRN (Reason: abdominal pain) Qty: 60 0RF sumatriptan succinate 6 mg/0.5 mL pen injector 6 mg subcut .As Needed as needed PRN (Reason: migraine headache) Qty: 1 4RF Rx Instructions: 3 boxes with 3 refills. sulfasalazine 500 mg tablet 1 g PO DAILY Rx Instructions: give with food (meal/snack) fluticasone propionate [Flonase Allergy Relief] 50 mcg/actuation spray,suspension 1 spray intranasal Q12H Qty: 16 2RF Rx Instructions: administer into each nostril alprazolam 2 mg tablet 4 mg PO QHS Qty: 60 0RF dextroamphetamine-amphetamine 15 mg capsule,extended release 24hr 15 mg PO DAILY Qty: 30 0RF dextroamphetamine-amphetamine 30 mg capsule,extended release 24hr 30 mg PO DAILY Qty: 30 0RF Emgality Pen 120 mg/mL pen injector 240 mg subcut MONTHLY Qty: 1 2RF Rx Instructions: as a single dose; administer as two 120 mg injections at separate sites tranexamic acid 650 mg tablet 650 mg PO DAILY Qty: 60 0RF rrrqkfmdej-jkuxphunrgink-artm 50-325-40 mg tablet 1 tab PO Q4-6H PRN (Reason: pain) Qty: 60 0RF ketorolac 10 mg tablet 10 mg PO Q8H PRN (Reason: pain) Qty: 30 0RF Rx Instructions: maximum total duration of 5 days from all oral, intranasal, or parenteral formulations amlodipine 2.5 mg tablet 2.5 mg PO DAILY Qty: 90 3RF Wegovy 1 mg/0.5 mL pen injector 1 mg subcut QWEEK Qty: 2 0RF Rx Instructions: administer weeks 9 through 12 of therapy Follow Up/Referrals: Taran Rivas MD [Primary Care Provider] - Stand Alone Forms: MyHealth Info Instructions
[2024-07-09] MEDS: 0.9 % SODIUM CHLORIDE 1000 ml 1,000 ML IV (04:33)
[2024-07-09] MEDS: ONDANSETRON 2 MG/ML inj 4 MG IVP (04:34)
[2024-07-09] MEDS: MORPHINE 4 MG/ML INJ IVP (04:34)
[2024-07-09] MEDS: LORazepam 2 MG/ML inj 0.5 MG IVP (04:35)
[2024-07-09 04:38] LABS: Basophils Absolute Auto 0.02 K/uL (0.00-0.30); Basophils Percent Auto 0.3 % (0.0-3.0); Eosinophils Absolute Auto 0.08 K/uL (0.00-0.50); Eosinophils Percent Auto 1.1 % (0.0-7.0); Hematocrit 42.7 % (33.0-51.0); Hemoglobin* 14.3 gm/dL (12.0-16.0); Immature Granulocytes Abs Auto 0.01 K/uL (0.00-0.30); Immature Granulocytes Pct Auto 0.1 %; Lymphocytes Absolute Auto 2.84 K/uL (0.90-2.90); Lymphocytes Percent Auto 37.5 % (20-44); Mean Corpuscular HGB Conc 34 gm/dL (32-36); Mean Corpuscular Hemoglobin 30 pg (26-34); Mean Corpuscular Volume 89 fL (80-100); Monocytes Percent Auto 6.9 % (0.0-11.0); Neutrophils Percent Auto 54.1 % (42.0-72.0); Platelet Count* 245 K/uL (140-440); RDW Coefficient of Variation % 13.1 % (11.5-15.5); Red Blood Count 4.78 m/uL (4.00-5.20); White Blood Count* 7.57 K/uL (4.50-11.00)
[2024-07-09 04:39] LABS: Slide Review Reflex No
[2024-07-09 04:50] LABS: Albumin* 4.4 g/dL (3.3-5.0); Chloride* 102 mmol/L (96-114); Sodium* 139 mmol/L (135-149)
[2024-07-09 04:51] LABS: Potassium* 3.2 mmol/L (3.6-5.1)
[2024-07-09 04:53] LABS: Alkaline Phosphatase* 128 U/L (40-150); Aspartate Amino Transferase* 45 U/L (12-35); Blood Urea Nitrogen* 14 mg/dL (7-30); Carbon Dioxide* 30 mmol/L (20-32); Creatinine* 0.7 mg/dL (0.5-1.5); Est. Creatinine Clearance* 77.77; Estimated Glomerular Filt Rate 104 ml/min
[2024-07-09 04:54] LABS: Alanine Aminotransferase* 23 U/L (4-35); Anion Gap 7 mEq/L (7-15)
[2024-07-09 05:01] LABS: Bilirubin Direct* 0.4 mg/dL (0.0-0.5)
[2024-07-09 05:09] LABS: D Dimer Quantitative* 0.15 ug/ml (0.00-0.50)
[2024-07-09 05:14] LABS: NT Pro B Type NatriureticPept* < 20 pg/mL; Troponin I* < 0.01 ng/mL (0.01-0.04)
[2024-07-09] MEDS: KETOROLAC 30 MG/ML inj IVP (05:32)
[2024-07-09 06:15] LABS: Bilirubin Total* 0.8 mg/dL (0.1-1.5); Calcium* 9.1 mg/dL (8.4-10.6); Glucose* 102 mg/dL (60-115)
[2024-07-09] MEDS: GI COCKTAIL (VISC LIDO/ANTACID) 30 ML PO (06:34)
== END 2024-07-09 07:08 | disposition home or self-care (01) ==
PROVIDERS: Emergency Provider Family Medicine; PCP Internal Medicine
DX: R07.89 Other chest pain (principal)
CPT/HCPCS: 36415; 71045; 80048; 80076; 83880; 84484; 85025; 85379; 93005; 94761; 96361; 96374; 96375; 99284; 99285; A9270; J1885; J2060; J2270; J2405; J7030

== ENCOUNTER 2024-07-27 11:23 | Outpatient (CLI) | payer BC, SELFPAY | END 2024-07-27 11:24 | disposition home or self-care (01) | LOC: NFLDREF 07-28 07:40 | PROVIDERS: PCP Internal Medicine; Referring Provider Internal Medicine; Visit Provider Registered Nurse | DX: N30.00 Acute cystitis without hematuria (principal) | CPT/HCPCS: 87086 ==

== ENCOUNTER 2024-08-01 14:49 | Outpatient (CLI) | payer BC, SELFPAY | END 2024-08-01 14:50 | disposition home or self-care (01) | LOC: NFLDREF 08-05 06:20 | PROVIDERS: PCP Internal Medicine; Referring Provider Internal Medicine; Visit Provider Registered Nurse | DX: R31.9 Hematuria, unspecified (principal); R80.9 Proteinuria, unspecified; R51.9 Headache, unspecified | CPT/HCPCS: 87086 ==

== ENCOUNTER 2024-08-08 13:30 | Outpatient (CLI) | payer BC, SELFPAY | END 2024-08-08 13:31 | disposition home or self-care (01) | PROVIDERS: PCP Internal Medicine; Visit Provider Internal Medicine | DX: A04.72 Enterocolitis due to Clostridium difficile, not specified as recurrent (principal) | CPT/HCPCS: 86703; 86705; 86803; 87086 ==

== ENCOUNTER 2024-09-05 13:52 | Outpatient (CLI) | payer BC, SELFPAY | END 2024-09-05 13:53 | disposition home or self-care (01) | LOC: NFLDREF 09-12 02:35 | PROVIDERS: PCP Internal Medicine; Referring Provider Internal Medicine; Visit Provider Internal Medicine | DX: N30.00 Acute cystitis without hematuria (principal); B96.20 Unspecified Escherichia coli [E. coli] as the cause of diseases classified elsewhere | CPT/HCPCS: 87086 ==

== ENCOUNTER 2024-09-28 19:35 | Outpatient (CLI) | payer BC, SELFPAY | END 2024-09-28 19:36 | disposition home or self-care (01) | LOC: NFLDREF 10-03 02:20 | PROVIDERS: PCP Internal Medicine; Referring Provider Internal Medicine; Visit Provider Nurse Practitioner Family | DX: N30.90 Cystitis, unspecified without hematuria (principal); B96.20 Unspecified Escherichia coli [E. coli] as the cause of diseases classified elsewhere | CPT/HCPCS: 87086 ==

== ENCOUNTER 2024-10-18 15:25 | Outpatient (CLI) | payer BC, SELFPAY ==
--- OUTSIDE RECORDS SUMMARY | 2016-12-31 12:19 | XMS_ITS | Continuity of Care Document ---
Author Organization [facility] Address [address] [place] [address] Phone Care Team Providers Care Pressurization Mechanic Name Role Phone Paulina SHIRLEY, Lisseth Unavailable [...] Diagnoses Date Provider Providers Copied on Encounter [facility], [address], [place], [id number], [place] tel:[phone] [facility] No Information 7 Paulina Lisseth. [address], [place], [id number], [place]. tel:[phone] [facility], [address], [place], [id number], [place] tel:[phone] [facility] No Information 3 Paulina Montanez. [address], [place], [id number], [place]. tel:[phone] OFFICE/OUTPATI ENT VISIT EST [facility], [address], [place], [id number], tel:[phone] [facility] No Information 3 Paulnia Montanez. [address], [place], [id number], [place]. tel:[phone] OFFICE CONSULTATION [facility], [address], [place], [id number], [place] tel:[phone] [facility] No Information 3 Paulina Montanez. [address], [place], [id number], [place]. tel:[phone] Family History Family Member Type Diagnosis Age At Onset Mother Problem (finding) Alive and well Payers Payer name Insurance type Covered alliance party ID Meghan almeidaronan(s) [facility] [id number] Social History Type Description Quantity Date Captured [...]
--- OUTSIDE RECORDS SUMMARY | 2024-10-11 09:50 | XMS_ITS | Continuity of Care Document ---
Author Organization [facility] Address [address] [address] [place] [address] Phone Care Team Providers Care Certified Ophthalmic Surgical Assistant Name Role Phone Nikki PA, Daxa Unavailable [...] Diagnoses Date Provider Providers Copied on Encounter [facility], [address] [address], [place], [place], [id number], [place] tel:[phone] [facility] No Information Nikki Mittal. [address] [place] [address], [address], [id number], [place]. [phone] Established Level 3 Low [facility], [address] [address], [place], [place], [id number], [place] tel:[phone] [facility] GI Symptoms or Concerns (chief complaint) Irregular bowel habitsDelayed gastric emptying 5 Nikki Mittal. [address] [place] [address], [id number], [place]. tel:[phone] Taran Rivas MD. tel:[phone] Wharton MD. tel:[phone] erring Provider: Referral Self, USE FOR SELF REFERRALS. [facility], [address] [address], [place], [place], [id number], [place] tel:[phone] [facility] GI Symptoms or Concerns (chief complaint) No Information 5 Nikki Mittal. [address] [place] [address], [id number], [place]. [phone] Taran Rivas MD. tel:[phone] Wharton MD. tel:[phone] [facility], [address] [address], [facility], [id number], [place] tel:[phone] [facility] No Information 5 Lito Lovett. [address] [facility], [address], [place], [place], [address], [place]. tel:[phone] Referring Provider: Bony Morse MD, [address] [place] [address] [address], [place], [address] . tel:[phone] Offic/outpt E&m Estab Mod-hi 2 [facility], [address] [address], [place], [id number], [place] tel:[phone] [facility] GI Symptoms or Concerns (chief complaint) Diarrhea, unspecifiedFla tulenceGastrop aresisGERD without esophagitis 5 Nikki Mittal. [address] [place] [address], [address], [place], [address], [place]. tel:[phone] Taran Rivas MD. tel:[phone] Wharton MD. tel:[phone] erring Provider: Referral Self, USE FOR SELF REFERRALS. [facility], [address] [address], [place], [id number], [place] tel:[phone] [facility] No Information 4 Nargis Cisneros. [address] [facility], [address], [place], [address], [place]. tel:[phone] Referring Provider: [place], [address] [place] [address] [address], [place], [address] . tel:[phone] [facility], [address] [address], [place], [address], [place] tel:[phone] [facility] No Information 4 Nargis Cisneros. [address] [place] [address], [address], [place], [place], [id number], [place]. tel:[phone] Established Level 4 [facility], [address] [address], [place], [address], [place] tel:[phone] [facility] GI Symptoms or Concerns (chief complaint) Gastroparesis 4 Lexi Hurley. [address] [facility], [address], [place], [address], [place]. tel:[phone] Taran Rivas MD. tel:[phone] Wharton MD. [phone] erring Provider: Referral Self, USE FOR SELF REFERRALS. [facility], [address] [address], [place], [address], [place] tel:[phone] [facility] No Information 4 Darien Plascencia. [address] [facility], [address], [place], [address], [place]. tel:[phone] [facility], [address] [address], [place], [address], [place] tel:[phone] [facility] No Information 4 Decelles PA Daxa. [address] [facility], [address], [place], [address], [place]. tel:[phone] [facility], [address] [address], [place], [address], [place] tel:[phone] [facility] Bloating 4 Decelles PA Daxa. [address] [facility], [address], [place], [address], [place]. tel:[phone] Established Level 3 [facility], [address] [address], [place], [address], [place] tel:[phone] [facility] GI Symptoms or Concerns (chief complaint) Delayed gastric emptyingGastro paresis 4 Decelles PA Daxa. [address] [facility], [address], [place], [address], [place]. tel:[phone] Taran Rivas MD. tel:[phone] Wharton MD. tel:[phone] erring Provider: Referral Self, USE FOR SELF REFERRALS. Established Level 5 [facility], [address] [address], [place], [id number], [place] tel:[phone] [facility] GI Symptoms or Concerns (chief complaint) Hiatal herniaGastropa resisGERD without esophagitisPel jordan floor dysfunction 4 Shani Vang. [address], [id number], . tel:[phone] Taran Rivas MD. tel:[phone] Wharton MD. tel:[phone] erring Provider: Referral Self, USE FOR SELF REFERRALS. Offic/outpt E&m Estab Low-mod [facility], [address] [address], [place], [id number], [place] tel:[phone] [facility] GI Symptoms or Concerns (chief complaint) Delayed gastric emptyingGastro -esophageal reflux disease without esophagitisHis tory of Clostridioides difficile colitisIrregul ar bowel habits 4 Nikki Mittal. [facility] [address], [id number], [place]. tel:[phone] Taran Rivas MD. tel:[phone] erring Provider: Referral Self, USE FOR SELF REFERRALS. [facility], [address] [address], [place], [id number], [place] tel:[phone] [facility] No Information 4 Darien Plascencia. [address] [facility], [address], [id number], [place]. tel:[phone] Offic/outpt E&m Estab Low-mod [facility], [address] [address], [place], [id number], [place] tel:[phone] [facility] GI Symptoms or Concerns (chief complaint) Delayed gastric emptyingGastro esophageal reflux disease without esophagitisHis tory of Clostridioides difficile colitisIrregul ar bowel habits 4 Decelbrent Mittal. [address] [place] [address], [address], [id number], [place]. tel:[phone] Temo Wharton MD. tel:[phone] erring Provider: Referral Self, USE FOR SELF REFERRALS. [facility], [address] [address], [place], [id number], [place] tel:[phone] [facility] Gastroesophage al reflux disease without esophagitisOth er specified postprocedural statesGastro-e sophageal reflux disease without esophagitis 4 Min MD Bai. [address] [place] [address], [id number], [place]. tel:[phone] Temo Wharton MD. tel:[phone] erring Provider: Referral Self, USE FOR SELF REFERRALS. Offic/outpt E&m Estab Mod-hi 2 [facility], [address] [address], [place], [place], [address], [place] tel:[phone] [facility] GI Symptoms or Concerns (chief complaint) Diarrhea, unspecifiedDel ayed gastric emptyingGastro esophageal reflux disease, unspecified whether esophagitis presentDyspeps ia 4 Decelbrent Mittal. [address] [place] [address], [id number], [place]. tel:[phone] Temo Wharton MD. tel:[phone] erring Provider: Referral Self, USE FOR SELF REFERRALS. [facility], [address] [address], [place], [place], [id number], [place] tel:[phone] [facility] GI Symptoms or Concerns (chief complaint) Diarrhea, unspecifiedCol orectal polypsDivertic ulosis of colon without diverticulitis Benign neoplasm of transverse colon 4 Sancho Taylor. [address] [place] [address], [address], [id number], [place]. tel:[phone] Temo Wharton MD. tel:[phone] erring Provider: Referral Self, USE FOR SELF REFERRALS. New Level 4 [facility], [address] [address], [place], [id number], [place] tel:[phone] [facility] GI Symptoms or Concerns (chief complaint) Diarrhea, unspecified typeAbdominal pain, unspecified abdominal location 4 Eric Alonso. [address], [id number], [place]. tel:[phone] Referring Provider: Taran Gonzales, [address] [place] [address], [address]. tel:[phone] [facility], [address] [address], [place], [id number], [place] tel:[phone] [facility] GI Symptoms or Concerns (chief complaint) No Information 4 Eric Alonso. [address], [id number], [place]. tel:[phone] [facility], [address] [address], [place], [id number], [place] tel:[phone] No Information 4 No Information Referring Provider: Taran Gonzales, [address] [place] [address], [address]. tel:[phone] Offic/outpt E&m Estab Mod-hi 2 [facility], [address] [address], [place], [address], [place] tel:[phone] [facility] GI Symptoms or Concerns (chief complaint) Gastroesophage al reflux disease, esophagitis presence not specifiedBloat ingFlatulenceR ight sided abdominal pain 0-201 9 Regis Costa. [address], [id number], [place]. tel:[phone] Referring Provider: Referral Self, USE FOR SELF REFERRALS. [facility], [address] [address], [place], [address], [place] tel:[phone] [facility] Bloating 9 Regis Costa. [address] [facility], [place], [place], [address], [place]. tel:[phone] Office Cons New/estab Mod [facility], [address] [address], [facility] [place], [address], [place] tel:[phone] [facility] GI Symptoms or Concerns (chief complaint) BloatingRight sided abdominal pain 9 Regis Costa. [address] [facility], [address], [place], [place], [address], [place]. tel:[phone] Referring Provider: Taran Gonzales, [address] [place] [address], [address]. tel:[phone] Family History Family Member Type Diagnosis Age [...] Canine Kidney, preservative free, quadrivalent administered Note: [place] IC bi- directional interface ; Source: Other Registry zoster vaccine recombinant administered N ote: [facility] bi-directional interface ; Source: Other Registry Influenza, Madin Elida Canin e Kidney, subunit, quadrivalent, injectable, preservative free administered Note: [facility] bi-directional interface ; Source: Other Registry Influenza, injectable, Madin Elida Canine Kidney, preservative free, quadrivalent administered Note: [place] IC bi- directional interface ; Source: Other [...] Registry Payers Payer name Insurance type Covered republican ID Authoriza tion(s) [facility] [id number] Social History Type Description Quantity Date Captured [...] fragmented care. She has been seen by [facility] in the past as well as a surgeon in [place], [place] who she follows with regularly. Please [...] Patient notes that she has met with [facility] who are recommending she complete a G [...] fragmented care. She has been seen by [facility] in the past as well as a surgeon in [place], [place] who she follows with regularly. Please [...] She did have anorectal manometry done through [facility] which revealed a pelvic floor disorder. She [...] considering a pylorolasty with Dr. Sánchez in [place]. She has met with a dietitian and [...] fragmented care. She has been seen by [facility] in the past as well as a surgeon in [place], [place] who she follows with regularly. We initially saw her for evaluation of diarrhea In May 2023. In review, she had presented to the ED in [place] for evaluation of diarrhea and malaise. Stool [...] fecal urgency Patient has been seen by [facility] in the past for reflux. Upper endoscopy done around April 2022 revealed Grade C esophagitis. She notes that surgery was recommended to control her reflux symptoms as it was not responding to PPI therapy. Patient then had a Toupet fundoplication in December 2022 at [facility] in [place], [place]. She initially felt okay, but in [...] early satiety. 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 Sánchez. Overall the patient states that [...] She has been seen and evaluated at [facility] but could not continue due to the recommendations of doing a strict biofeedback for pelvic floor. For her reflux and gastroparesis she has been seen by her surgeon in [place] who has planning an intervention at the [...] fragmented care. She has been seen by [facility] in the past as well as a surgeon in [place], [place] who she follows with regularly. We initially saw her for evaluation of diarrhea on 05/18/2023. In review, she had presented to the ED in [place] for evaluation of diarrhea and malaise. Stool [...] fecal urgency Patient has been seen by [facility] in the past for reflux. Upper endoscopy done around April 2022 revealed Grade C esophagitis. She notes that surgery was recommended to control her reflux symptoms as it was not responding to PPI therapy. Patient then had a Toupet fundoplication on January 11, 2023 at [facility] in [place], [place]. She initially felt okay, but in [...] satiety. She specifically notes her surgeon in [place] believes there was vagal nerve damage when [...] she had presented to the ED in [place] for evaluation of diarrhea and malaise. Stool [...] reports having pelvic floor workup done at [facility] which revealed a pelvic floor dysfunction. Patient has been seen by [facility] in the past for reflux. Upper endoscopy done around April 2022 revealed Grade C esophagitis. She has been on lansoprazole and omeprazole in the past. Patient currently takes pantoprazole 40mg twice daily. She notes that surgery was recommended to control her reflux symptoms. Patient then had a Toupet fundoplication on 2022 at [facility] in [place], [place]. She initially felt okay, but in [...] spends half of her time living in [place], [place] and half of her time living in [facility] and as such, her medical care is [...] she presented to the emergency room in [facility] several days ago where stool studies [...] her last colonoscopy was done through the [facility] approximately one to two years ago. She [...] She was visiting her daughter in the [place] area when she developed acute abdominal pain, [...]
--- NOTE | 2024-10-18 15:30 | CRLHL7_ITS ---
For Patients: As a result of the 21st Century Cures Act, medical imaging exams and procedure reports are released immediately into your electronic medical record. You may view this report before your referring provider. If you have questions, please contact your health care provider. CLINICAL INDICATION: Right knee pain. COMPARISON STUDIES: Radiographs 03/28/2024. TECHNICAL: Noncontrast MRI of the right knee. 1.5 nicole MRI scanner. Axial, sagittal and coronal T1, PD, PD FS and T2 FS images. FINDINGS: MEDIAL COMPARTMENT: Medial Meniscus: Undersurface meniscal tearing within the posterior aspect of the medial meniscal body is noted on coronal stir image number 19 of series 5 for example. There is horizontal meniscal signal abnormality within the posterior horn of the medial meniscus which appears to subtly contact the undersurface of meniscus on the sagittal PD images and therefore likely reflects sequelae of prior tearing. The anterior horn of the meniscus is intact. Articular Cartilage: Moderate medial compartment articular cartilage wear (grade 2). LATERAL COMPARTMENT: Lateral Meniscus: Degeneration of the lateral meniscus with sequelae of free edge and superior surface degenerative fraying or degenerative tearing within the body and likely anterior horn of the meniscus. Articular Cartilage: Mild chondromalacia within the lateral compartment (grade 2). PATELLOFEMORAL COMPARTMENT: Articular Cartilage: Areas of subchondral bone marrow edema involving the patellar apex and lateral facet likely indicates presence of grade 4 chondromalacia. The trochlear articular cartilage is maintained. LIGAMENTS: Anterior Cruciate Ligament: Intact. Posterior Cruciate Ligament: Intact. MEDIAL COLLATERAL LIGAMENT AND POSTEROMEDIAL CORNER COMPLEX: Medial Collateral Ligament: Mild chronic thickening of the proximal through mid MCL. No acute MCL injury. Medial Head of the Gastrocnemius and Semimembranosus Tendons: Normal. LATERAL COLLATERAL LIGAMENT COMPLEX AND POSTEROLATERAL CORNER COMPLEX: Fibular Collateral Ligament: Normal. Distal Biceps Femoris Tendon Complex: Normal. Iliotibial Band: Edema underlying the iliotibial band the distal femoral level. Band appears slightly thickened. Popliteus Tendon: Normal. Posterolateral Corner Capsule: Normal. EXTENSOR MECHANISM: Distal Quadriceps Tendon: Intact. Patellar Tendon: Intact. Medial Patellar Retinaculum and Medial Patellofemoral Ligament: Intact. Lateral Patellar Retinaculum: Intact. Normal patellar alignment. Borderline patella gina. Normal trochlear depth. Normal lateral trochlear inclination. JOINT SPACE AND CAPSULE: No significant joint effusion. There is some scarring along the posterior aspect of Hoffa`s fat pad which may relate to prior arthroscopy. BONES AND SOFT TISSUES: There is no acute fracture or avascular necrosis.6 x 2.5 x 1.5 centimeter popliteal cyst. Subcentimeter ganglia within the anterior intercondylar notch just below the anterior intrameniscal ligament. IMPRESSION: 1. Medial meniscal tear. 2. Lateral meniscal degeneration with degenerative fraying/mild degenerative tearing. 3. Moderate medial and mild lateral compartment chondromalacia/cartilage wear. 4. 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 5. Edema underlying a slightly thickened IT band. 6. Popliteal cyst. Dictated by Gonsalo Trujillo MD @ 10/19/2024 12:00:04 PM (Electronically Signed)
== END 2024-10-18 15:26 | disposition home or self-care (01) ==
LOC: MRI 15:26
PROVIDERS: PCP Internal Medicine; Visit Provider Internal Medicine
DX: M25.561 Pain in right knee (principal); S83.241A Other tear of medial meniscus, current injury, right knee, initial encounter; S83.281A Other tear of lateral meniscus, current injury, right knee, initial encounter; M94.261 Chondromalacia, right knee; M71.21 Synovial cyst of popliteal space [Baker], right knee; J32.0 Chronic maxillary sinusitis; J34.2 Deviated nasal septum
CPT/HCPCS: 70486; 73721

== ENCOUNTER 2024-10-18 15:27 | Outpatient (CLI) | payer BC, SELFPAY ==
--- OUTSIDE RECORDS SUMMARY | 2016-12-31 12:19 | XMS_ITS | Continuity of Care Document ---
Author Organization [facility] Address [address] [place] [address] Phone Care Team Providers Care Infusion Therapy Nurse Name Role Phone Paulina SHIRLEY, Lisseth Unavailable Unavailable Allergies, Adverse Reactions, Alerts Substance Reaction Status Criticality HYDROCODONE BITARTRATE Itching Active No In formation acetaminophen Itching Active No Information IODINE Shortness of breath and fainting Active No Information Medications Medication Instructions Dosage Effective Dates (start - stop) Status Comments Nuvigil 250 mg tablet take 1 tablet by oral route every day in the morning 250 MG - Active METOPROLOL TARTRATE (unknown strength) take 1 tablet by oral route 2 times every day Not Available - Active Cymbalta 60 mg capsule,delayed release take 1 capsule by oral route every day 60 MG - Active Adderall 30 mg tablet take 1 tablet by oral route every day before breakfast 30 MG - Active triazolam 0.25 mg tablet take 1 tablet by oral route every day at bedtime as needed 0.25 MG - Active Procedures Procedure Date OFFICE/OUTPATIENT VISIT EST Fluoroscopic guidance for needle placeme nt DRAIN/INJECT JOINT/BURSA Betamethasone acet&sod phosp OFFICE CONSULTATION Fluoroscopic guidance for needle placeme nt X-Ray, wrist; 2 views DRAIN/INJECT JOINT/BURSA Betamethasone acet&sod phosp Advance Directives Directive Yes / No Effective Date File Name No Information Encounters Encounter Description Practice Location Reason(s) For Visit Diagnoses Date Provider Providers Copied on Encounter [facility], [address], [place], [id number], [place] tel:[phone] [facility] No Information 7 Paulina Lisseth. [address], [place], [id number], [place]. tel:[phone] [facility], [address], [place], [id number], [place] tel:[phone] [facility] No Information 3 Paulina Montanez. [address], [place], [id number], [place]. tel:[phone] OFFICE/OUTPATI ENT VISIT EST [facility], [address], [place], [id number], tel:[phone] [facility] No Information 3 Paulina oMntanez. [address], [place], [id number], [place]. tel:[phone] OFFICE CONSULTATION [facility], [address], [place], [id number], [place] tel:[phone] [facility] No Information 3 Paulina Montanez. [address], [place], [id number], [place]. tel:[phone] Family History Family Member Type Diagnosis Age At Onset Mother Problem (finding) Alive and well Payers Payer name Insurance type Covered green party ID Meghan almeidaronan(s) [facility] [id number] Social History Type Description Quantity Date Captured Comments Sex Female Smoking Status No Information Chief Complaint And Reason For Visit No Information Reason For Referral Reason For Referral No Information History Of Present Illness Encounter Date Complaint History Of Prese nt Illness No Information Functional Status Date Functional Assessmen t No Information Instructions Date Instruction Additional Infor mation No Information Assessments Type Assessment Date No Information Patient Care Teams Name Effective Dates (start - stop) Status Members No Information
--- OUTSIDE RECORDS SUMMARY | 2016-12-31 12:19 | XMS_ITS | Continuity of Care Document ---
Author Organization [facility] Address [address] [place] [address] Phone Care Team Providers Care Revenue Cycle Manager Name Role Phone Paulina SHIRLEY, Lisseth Unavailable [...] Diagnoses Date Provider Providers Copied on Encounter [facility], [address], [place], [id number], [place] tel:[phone] [facility] No Information 7 Paulina Lisseth. [address], [place], [id number], [place]. tel:[phone] [facility], [address], [place], [id number], [place] tel:[phone] [facility] No Information 3 Paulina Montanez. [address], [place], [id number], [place]. tel:[phone] OFFICE/OUTPATI ENT VISIT EST [facility], [address], [place], [id number], tel:[phone] [facility] No Information 3 Paulina Montanez. [address], [place], [id number], [place]. tel:[phone] OFFICE CONSULTATION [facility], [address], [place], [id number], [place] tel:[phone] [facility] No Information 3 Paulina Montanez. [address], [place], [id number], [place]. tel:[phone] Family History Family Member Type Diagnosis Age At Onset Mother Problem (finding) Alive and well Payers Payer name Insurance type Covered green party ID Meghan amleidaronan(s) [facility] [id number] Social History Type Description Quantity Date Captured [...]
--- OUTSIDE RECORDS SUMMARY | 2024-10-11 09:50 | XMS_ITS | Continuity of Care Document ---
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 Name Role Phone Nikki PA, Daxa Unavailable Unavailable Allergies, Adverse Reactions, Alerts Substance Reaction Status Criticality adhesive tape Faint Active No Information oxycodone ItchingItching Active No Informatio n adhesive Active No Information HYDROCODONE BITARTRATE Active No In formation acetaminophen Active No Information IODINE Active No Information Medications Medication Instructions Dosage Effective Dates (start - stop) Status Comments alprazolam 2 mg tablet take 2 tablet by oral route 2 times every day 4 MG - Active folic acid 1 mg tablet take 1 tablet by oral route 3 times every day 1 MG - Active ondansetron HCl 4 mg tablet take 2 tablet by oral route 2 times every day as needed - Active pyridostigmine bromide 60 mg/5 mL oral syrup take 5 milliliter by oral route every 8 hours 60 MG - Active sulfasalazine 500 mg tablet take 1 tablet by oral route 3 times every day after meals 500 MG - Active Emgality Pen 120 mg/mL subcutaneous pen injector inject (120MG) by subcutaneous route every month in the abdomen, thigh, outer upper arm, or buttocks 120 MG - Active tranexamic acid 650 mg tablet take 1 tablet by oral route every day during menses 650 MG Feb-26-2025 - Active rabeprazole 20 mg tablet,delayed release take 1 tablet by oral route 2 times every day swallowing whole. Do not crush, chew and/or divide. 20 MG - Active 90DS. Further refills at [facility] 01/11/24 famotidine 40 mg tablet take 1 tablet by oral route every day at bedtime 40 MG - Active dicyclomine 10 mg capsule take 1 capsule by oral route 4 times every day as needed 10 MG - Active Adderall XR 30 mg capsule,extended release take 1 capsule by oral route every day in the morning upon awakening 30 MG - Active Adderall XR 15 mg capsule,extended release take 1 capsule by oral route every day in the morning upon awakening 15 MG - Active Imitrex 6 mg/0.5 mL subcutaneous solution inject 0.5 milliliter by subcutaneous route once; may repeat in 1 hour if pain returns/increases in severity; (max2 doses/24 hours) - Active methotrexate sodium (PF) 25 mg/mL injection solution 1ml - Active butalbital-acetamino phen-caffeine 50 mg-325 mg-40 mg capsule take 1 - 2 capsule by oral route every 4 hours as needed not to exceed 6 capsules per 24hrs 1.00-2.00 capsule - Active Plaquenil 200 mg tablet take 1 tablet by ORAL route 2 times every day 200 MG - Active Procedures Procedure Date Established Level 3 Low EGD W/submucosal Injection Offic/outpt E&m Estab Mod-hi 2 25 EGD W/submucosal Injection Established Level 4 Established Level 3 Established Level 5 Offic/outpt E&m Estab Low-mod 4 Offic/outpt E&m Estab Low-mod 4 Ugi Endo; Dx W/wo Collec Specm 24 Offic/outpt E&m Estab Mod-hi 2 24 Colonoscopy Flex; W/remov Les- 24 Colonoscopy Flex; W/bx 1/mx Level Iv-surg Path Gross/micro New Level 4 Offic/outpt E&m Estab Mod-hi 2 19 Routine Serum Collection Comp Metabolic Panel Gg; Iga, Igd, Igg, Igm, Ea Office Cons New/estab Mod Advance Directives Directive Yes / No Effective Date File Name No Information Encounters Encounter Description Practice Location Reason(s) For Visit Diagnoses Date Provider Providers Copied on Encounter [facility], [address] [address], [place], [place], [id number], [place] tel:[phone] [facility] No Information Nikki Mittal. [address] [place] [address], [address], [id number], [place]. [phone] Established Level 3 Low [facility], [address] [address], [place], [place], [id number], [place] tel:[phone] [facility] GI Symptoms or Concerns (chief complaint) Irregular bowel habitsDelayed gastric emptying 5 Nikki Mittal. [address] [place] [address], [id number], [place]. tel:[phone] Taran Rivas MD. tel:[phone] Wharton MD. tel:[phone] erring Provider: Referral Self, USE FOR SELF REFERRALS. [facility], [address] [address], [place], [place], [id number], [place] tel:[phone] [facility] GI Symptoms or Concerns (chief complaint) No Information 5 Nikki Mittal. [address] [place] [address], [id number], [place]. [phone] Taran Rivas MD. tel:[phone] Wharton MD. tel:[phone] [facility], [address] [address], [facility], [place], [address], [place] tel:[phone] [facility] No Information 5 Lito Lovett. [address] [facility], [address], [employer] [place], [id number], [place]. tel:[phone] Referring Provider: Bony Morse MD, [address] [place] [address] [address], [place], [address] . tel:[phone] Offic/outpt E&m Estab Mod-hi 2 [facility], [address] [address], [place], [id number], [place] tel:[phone] [facility] GI Symptoms or Concerns (chief complaint) Diarrhea, unspecifiedFla tulenceGastrop aresisGERD without esophagitis 5 Nikki Mittal. [address] [place] [address], [facility] [address], [place], [id number], [place]. tel:[phone] Taran Rivas MD. tel:[phone] Wharton MD. tel:[phone] erring Provider: Referral Self, USE FOR SELF REFERRALS. [facility], [address] [address], [place], [place], [id number], [place] tel:[phone] [facility] No Information 4 Nargis Cisneros. [address] [facility], [facility] [address], [place], [id number], [place]. tel:[phone] Referring Provider: [place], [address] [place] [address] [address], [place], [address] . tel:[phone] [facility], [address] [address], [place], [id number], [place] tel:[phone] [facility] No Information 4 Nargis Cisneros. [address] [place] [address], [address], [employer] [place], [address], [place]. tel:[phone] Established Level 4 [facility], [address] [address], [place], [id number], [place] tel:[phone] [facility] GI Symptoms or Concerns (chief complaint) Gastroparesis 4 Lexi Hurley. [address] [facility], [facility] [address], [place], [address], [place]. tel:[phone] Taran Rivas MD. tel:[phone] Wharton MD. [phone] erring Provider: Referral Self, USE FOR SELF REFERRALS. [facility], [address] [address], [place], [id number], [place] tel:[phone] [facility] No Information 4 Darien Plascencia. [address] [facility], [facility] [address], [place], [address], [place]. tel:[phone] [facility], [address] [address], [place], [address], [place] tel:[phone] [facility] No Information 4 Decelles PA Daxa. [address] [facility], [facility] [address], [place], [address], [place]. tel:[phone] [facility], [address] [address], [place], [address], [place] tel:[phone] [facility] Bloating 4 Decelles PA Daxa. [address] [facility], [facility] [address], [place], [id number], [place]. tel:[phone] Established Level 3 [facility], [address] [address], [place], [id number], [place] tel:[phone] [facility] GI Symptoms or Concerns (chief complaint) Delayed gastric emptyingGastro paresis 4 Decelles PA Daxa. [address] [facility], [facility] [address], [place], [id number], [place]. tel:[phone] Taran Rivas MD. tel:[phone] Wharton MD. tel:[phone] erring Provider: Referral Self, USE FOR SELF REFERRALS. Established Level 5 [facility], [address] [address], [place], [id number], [place] tel:[phone] [facility] GI Symptoms or Concerns (chief complaint) Hiatal herniaGastropa resisGERD without esophagitisPel jordan floor dysfunction 4 Shani Vang. [address], [id number], . tel:[phone] Taran Rivas MD. tel:[phone] Wharton MD. tel:[phone] erring Provider: Referral Self, USE FOR SELF REFERRALS. Offic/outpt E&m Estab Low-mod [facility], [address] [address], [place], [id number], [place] tel:[phone] [facility] GI Symptoms or Concerns (chief complaint) Delayed gastric emptyingGastro -esophageal reflux disease without esophagitisHis tory of Clostridioides difficile colitisIrregul ar bowel habits 4 Nikki Mittal. [facility] [address], [id number], [place]. tel:[phone] Taran Rivas MD. tel:[phone] erring Provider: Referral Self, USE FOR SELF REFERRALS. [facility], [address] [address], [place], [id number], [place] tel:[phone] [facility] No Information 4 Darien Plascencia. [address] [facility], [address], [id number], [place]. tel:[phone] Offic/outpt E&m Estab Low-mod [facility], [address] [address], [place], [id number], [place] tel:[phone] [facility] GI Symptoms or Concerns (chief complaint) Delayed gastric emptyingGastro esophageal reflux disease without esophagitisHis tory of Clostridioides difficile colitisIrregul ar bowel habits 4 Decelbrent Mittal. [address] [place] [address], [address], [id number], [place]. tel:[phone] Temo Wharton MD. tel:[phone] erring Provider: Referral Self, USE FOR SELF REFERRALS. [facility], [address] [address], [place], [id number], [place] tel:[phone] [facility] Gastroesophage al reflux disease without esophagitisOth er specified postprocedural statesGastro-e sophageal reflux disease without esophagitis 4 Min MD Bai. [address] [place] [address], [id number], [place]. tel:[phone] Temo Wharton MD. tel:[phone] erring Provider: Referral Self, USE FOR SELF REFERRALS. Offic/outpt E&m Estab Mod-hi 2 [facility], [address] [address], [place], [place], [id number], [place] tel:[phone] [facility] GI Symptoms or Concerns (chief complaint) Diarrhea, unspecifiedDel ayed gastric emptyingGastro esophageal reflux disease, unspecified whether esophagitis presentDyspeps ia 4 Decelbrent Mittal. [address] [place] [address], [id number], [place]. tel:[phone] Temo Wharton MD. tel:[phone] erring Provider: Referral Self, USE FOR SELF REFERRALS. [facility], [address] [address], [place], [place], [id number], [place] tel:[phone] [facility] GI Symptoms or Concerns (chief complaint) Diarrhea, unspecifiedCol orectal polypsDivertic ulosis of colon without diverticulitis Benign neoplasm of transverse colon 4 Sancho Taylor. [address] [place] [address], [address], [id number], [place]. tel:[phone] Temo Wharton MD. tel:[phone] erring Provider: Referral Self, USE FOR SELF REFERRALS. New Level 4 [facility], [address] [address], [place], [id number], [place] tel:[phone] [facility] GI Symptoms or Concerns (chief complaint) Diarrhea, unspecified typeAbdominal pain, unspecified abdominal location 4 Eric Alonso. [address], [id number], [place]. tel:[phone] Referring Provider: Taran Gonzales, [address] [place] [address], [address]. tel:[phone] [facility], [address] [address], [place], [id number], [place] tel:[phone] [facility] GI Symptoms or Concerns (chief complaint) No Information 4 Eric Alonso. [address], [id number], [place]. tel:[phone] [facility], [address] [address], [place], [id number], [place] tel:[phone] No Information 4 No Information Referring Provider: Taran Gonzales, [address] [place] [address], [address]. tel:[phone] Offic/outpt E&m Estab Mod-hi 2 [facility], [address] [address], [place], [id number], [place] tel:[phone] [facility] GI Symptoms or Concerns (chief complaint) Gastroesophage al reflux disease, esophagitis presence not specifiedBloat ingFlatulenceR ight sided abdominal pain 0-201 9 Regis Costa. [address], [id number], [place]. tel:[phone] Referring Provider: Referral Self, USE FOR SELF REFERRALS. [facility], [address] [address], [place], [address], [place] tel:[phone] [facility] Bloating 9 Regis Costa. [address] [facility], [facility] [address], [place], [id number], [place]. tel:[phone] Office Cons New/estab Mod [facility], [address] [address], [facility] [place], [id number], [place] tel:[phone] [facility] GI Symptoms or Concerns (chief complaint) BloatingRight sided abdominal pain 9 Regis Costa. [address] [facility], [facility] [address], [employer] [place], [address], [place]. tel:[phone] Referring Provider: Taran Gonzales, [address] [place] [address], [address]. tel:[phone] Family History Family Member Type Diagnosis Age At Onset Sister Problem (finding) Alive and well Mother Problem (finding) Thyroid disorder Daughter Problem (finding) Alive and well Father Problem Diabetes mellitus Immunizations Vaccine Date Status Comments tetanus toxoid, reduced diphtheria toxoid, and acellular pertussis vaccine, adsorbed administered Note: [facility] b i-directional interface ; Source: Other Registry Influenza administered Note: [facility] bi-directional interface ; Source: Other Registry zoster vaccine recombinant administered N ote: [facility] bi-directional interface ; Source: Other Registry Influenza, Madin Elida Canin e Kidney, subunit, quadrivalent, injectable, preservative free administered Note: [facility] bi-directional interface ; Source: Other Registry Influenza, injectable, Madin Elida Canine Kidney, preservative free, quadrivalent administered Note: [place] IC bi- directional interface ; Source: Other Registry zoster vaccine recombinant administered N ote: [facility] bi-directional interface ; Source: Other Registry Influenza, Madin Elida Canin e Kidney, subunit, quadrivalent, injectable, preservative free administered Note: [facility] bi-directional interface ; Source: Other Registry Influenza, injectable, Madin Elida Canine Kidney, preservative free, quadrivalent administered Note: [place] IC bi- directional interface ; Source: Other Registry SARS-COV-2 (COVID-19) vaccin e, mRNA, spike protein, LNP, preservative free, 30 mcg/0.3mL dose, blake-sucrose formulation administered Note: MII C bi- directional interface ; Source: Other Registry SARS-COV-2 (COVID-19) vaccin e, mRNA, spike protein, LNP, preservative free, 30 mcg/0.3mL dose, blake-sucrose formulation administered Note: MII C bi- directional interface ; Source: Other Registry Afluria Qd administered Note: M IIC bi-directional interface ; Source: Other Registry SARS-COV-2 (COVID-19) vaccin e, mRNA, spike protein, LNP, preservative free, 30 mcg/0.3mL dose administered Note: [facility] bi-direct ional interface ; Source: Other Registry SARS-COV-2 (COVID-19) vaccin e, mRNA, spike protein, LNP, preservative free, 30 mcg/0.3mL dose administered Note: [facility] bi-direct ional interface ; Source: Other Registry SARS-COV-2 (COVID-19) vaccin e, mRNA, spike protein, LNP, preservative free, 30 mcg/0.3mL dose administered Note: [facility] bi-direct ional interface ; Source: Other Registry Afluria Qd administered Note: M IIC bi-directional interface ; Source: Other Registry Afluria Qd administered Note: M IIC bi-directional interface ; Source: Other Registry Hepatitis B vaccine (recombinant), CpG adjuvanted administered Note: [facility] bi-directional interface ; Source: Other Registry Afluria Qd administered Note: M IIC bi-directional interface ; Source: Other Registry Fluzone Quad 6mo or older administered Note: [facility] bi-direct ional interface ; Source: Other Registry Hepatitis B vaccine (recombinant), CpG adjuvanted administered Note: [facility] bi-directional interface ; Source: Other Registry Influenza, split virus, trivalent, injectable, preservative free administered Note: [facility] bi-direct ional interface ; Source: Other Registry Influenza, seasonal, injecta ble, preservative free administered Note: [facility] bi-direct ional interface ; Source: Other Registry Afluria Qd administered Note: M IIC bi-directional interface ; Source: Other Registry Fluzone Quad 6mo or older administered Note: [facility] bi-direct ional interface ; Source: Other Registry Afluria Qd administered Note: M IIC bi-directional interface ; Source: Other Registry Fluzone Quad 6mo or older administered Note: [facility] bi-direct ional interface ; Source: Other Registry Afluria Qd administered Note: M IIC bi-directional interface ; Source: Other Registry Fluzone Quad 6mo or older administered Note: [facility] bi-direct ional interface ; Source: Other Registry Afluria Qd administered Note: M IIC bi-directional interface ; Source: Other Registry Fluzone Quad 6mo or older administered Note: [facility] bi-direct ional interface ; Source: Other Registry measles, mumps and rubella v irus vaccine administered Note: [facility] bi-direct ional interface ; Source: Other Registry measles, mumps and rubella v irus vaccine administered Note: [facility] bi-direct ional interface ; Source: Other Registry tetanus toxoid, reduced diphtheria toxoid, and acellular pertussis vaccine, adsorbed administered Note: [facility] b i-directional interface ; Source: Other Registry Payers Payer name Insurance type Covered alliance party ID Authoriza tion(s) [facility] [id number] Social History Type Description Quantity Date Captured Comments Alcohol Use Details Unknown Caffeine Use Details Unknown Tobacco Use Status No Information Smoking Status No Information Sex Female Chief Complaint And Reason For Visit No Information Reason For Referral Reason For Referral No Information Plan Of Treatment Date Type Action Status Referral Ordered: Xray Esophagus (Esophagram, Barium Swallow Study) Appointment date/timeframe: 09/20/2023 ordered Referral Ordered: referred to Surgery vagal nerve botox for gastroparesis Appointment date/timeframe: 10/30/2023 ordered Referral Ordered: EGD Appointment date/timeframe: 03/13/2019 ordered Appointment Waleska Diaz BOOKED History Of Present Illness Encounter Date Complaint History Of Prese nt Illness GI Symptoms or Concerns Debby ramsay is a pleasant 53-year-old female who presents for follow-up of gastroparesis and diarrhea.Patient has a history of pelvic floor dysfunction, Lap-Band s/p removal with subsequent toupee fundoplication and hiatal hernia repair in December 2022, complicated by gastroparesis s/p Botox injections, rheumatoid arthritis and lupus for which she is on methotrexate and Plaquenil, chronic headaches, depression, and anxiety. Her history is complicated by fragmented care. She has been seen by [facility] in the past as well as a surgeon in [place], [place] who she follows with regularly. Please review previous chart notes for full review of patient's history.Patient recently underwent an upper endoscopy with Botox injection on 08/23/2024. Upper endoscopy he noted the presence of gastric stenosis in the pylorus. Also noted a medium mount of food residue in the stomach and the duodenum. Patient states that she has noted some improvement in her gastroparesis symptoms since then. Patient notes that she has met with [facility] who are recommending she complete a G POEM for management of her pyloric stenosis. She has this scheduled for November 07. She notes that they repeated gastric emptying study which confirmed gastroparesis.We have also followed the patient for workup of her diarrhea. Patient will typically experience severe diarrhea 1-2 times a week. This presents with extreme urgency and sometimes fecal incontinence. She is undergoing pelvic floor physical therapy. She does have a history of C. difficile. GI Symptoms or Concerns GI Symptoms or Concerns Debby ramsay is a pleasant 53-year-old female who presents for follow-up of diarrhea. She has a history of pelvic floor dysfunction, lap band s/p removal with subsequent toupee fundoplication and hiatal hernia repair in December 2022, complicated by gastroparesis s/p Botox injections, rheumatoid arthritis and lupus for which she is on methotrexate and Plaquenil, chronic headaches, depression, and anxiety. Her history is complicated by fragmented care. She has been seen by [facility] in the past as well as a surgeon in [place], [place] who she follows with regularly. Please review previous chart notes for full review of patient's history.Today patient states that she would like to continue workup for her diarrhea. She experiences severe diarrhea 1-2 times a week. Usually this will present with extreme urgency and sometimes fecal incontinence. Outside of these episodes she will have 1-2 formed stools daily. She notes that she is following with a pelvic floor physical therapist and will be undergoing biofeedback therapy. She did have anorectal manometry done through [facility] which revealed a pelvic floor disorder. She does have a history of C. difficile.Additionally, she received Botox injections into the pyloric sphincter for treatment of gastroparesis. She last had this done in March 2024. Patient states that the effects typically last around 3 months and that she feels like her gastroparesis symptoms are starting to come back. She notes that she is considering a pylorolasty with Dr. Sánchez in [place]. She has met with a dietitian and follows a gastroparesis diet. GI Symptoms or Concerns 53-year- old woman with complex past medical history including lupus, rheumatoid arthritis, pelvic floor dysfunction, lap band status post removal with subsequent toupee fundoplication and hiatal hernia repair 12/2022 complicated by gastroparesis status post pyloric Botox injection who presents for follow-up.She has been doing well since her last Botox injection into the pylorus. This significantly improved her symptoms of gastroparesis although these are starting to come back. She is hoping to have another pyloric Botox injection. She just met with the registered dietitian last week and is starting a gastroparesis diet. She has been having some increased bloating especially when drinking liquids and occasionally has some urgency with incontinence. Overall though she is feeling somewhat better than at our last visits, which she attributes to the pyloric Botox injection and she is hoping to have this again. GI Symptoms or Concerns Debby ramsay is a pleasant 52-year-old female s/p partial fundoplication who presents for follow up of diarrhea and to discuss delay in gastric emptying, heartburn, and bloating. She has a medical history of gastric band placement with subsequent removal after it slipped acutely in 2019. She also has a history of rheumatoid arthritis and lupus, for which she is on methotrexate and Plaquenil, chronic headaches, depression, and anxiety. Patient s history complicated by fragmented care. She has been seen by [facility] in the past as well as a surgeon in [place], [place] who she follows with regularly. We initially saw her for evaluation of diarrhea In May 2023. In review, she had presented to the ED in [place] for evaluation of diarrhea and malaise. Stool studies including C dif were negative. She was treated empirically for gastroenteritis with ciprofloxacin and metronidazole. Her symptoms progressed and she returned to the ED. They did a CT scan which revealed mild diffuse mural thickening from the cecum to the rectum and noted the cecum in the LLQ. They questioned if this could represent C diff despite a negative test and she was started on oral vancomycin. Since then she has had improvement in diarrhea. She is having 2-3 soft stools daily. She still experiences occasional fecal urgency Patient has been seen by [facility] in the past for reflux. Upper endoscopy done around April 2022 revealed Grade C esophagitis. She notes that surgery was recommended to control her reflux symptoms as it was not responding to PPI therapy. Patient then had a Toupet fundoplication in December 2022 at [facility] in [place], [place]. She initially felt okay, but in April 2023 she developed bloating, early satiety, nausea, and vomiting. She also experienced a recurrence of her acid reflux symptoms. Of note, around this time she was also taking Ozempic. She has since discontinued this after these symptoms started. Barium esophagram completed in April 2023 showed a delay in emptying. She then had a gastric emptying study completed on 05/05/2023 which showed significant delay in gastric emptying. At 4 hours, she had 62% meal retention. She experiences nausea and early satiety. She notes her surgeon in [place] believes there was vagal nerve damage when she underwent emergent repair for her gastric band placement in 2018. She states he has recommended vagal nerve botox to alleviate symptoms of delayed gastric emptying. Patient underwent an upper endoscopy on June 2023 for evaluation of heartburn and delay in gastric emptying. Upper endoscopy revealed inlet patch in proximal esophagus and esophagus otherwise normal. Duodenum was normal. The previous fundoplication appeared loose and there was a small hiatal hernia proximal to the wrap with evidence of Marshall lesions.She had another esophagram completed August 2023 which showed esophagus distended as before, no hernia, no mucosal irregularity, no stricture or ulcer, normal swallowing mechanism. Noted large volume spontaneous reflux to the proximal esophagus. Noted residual food products in the stomach and delayed emptying, as before. 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 Sánchez. Overall the patient states that she is having significant reflux with burning in the back of her throat and sensation of food coming back up. She has not felt any relief from the medications that she is on. She denies any odynophagia no melena no hematochezia no vomiting but has experience bloating discomfort, diarrhea on all the symptoms that she has normally been experiencing due to her pelvic floor dysfunction. She has been seen and evaluated at [facility] but could not continue due to the recommendations of doing a strict biofeedback for pelvic floor. For her reflux and gastroparesis she has been seen by her surgeon in [place] who has planning an intervention at the end of the month with Botox. GI Symptoms or Concerns Debby ramsay is a pleasant 52-year-old female s/p partial fundoplication who presents for follow up of diarrhea and to discuss delay in gastric emptying, heartburn, and bloating. She has a medical history of gastric band placement with subsequent removal after it slipped acutely in 2018. She also has a history of rheumatoid arthritis and lupus, for which she is on methotrexate and Plaquenil, chronic headaches, depression, and anxiety. Patient's history complicated by fragmented care. She has been seen by [facility] in the past as well as a surgeon in [place], [place] who she follows with regularly. We initially saw her for evaluation of diarrhea on 05/18/2023. In review, she had presented to the ED in [place] for evaluation of diarrhea and malaise. Stool studies including C dif were negative. She was treated empirically for gastroenteritis with ciprofloxacin and metronidazole. Her symptoms progressed and she returned to the ED. They did a CT scan which revealed mild diffuse mural thickening from the cecum to the rectum and noted the cecum in the LLQ. They questioned if this could represent C diff despite a negative test and she was started on oral vancomycin. Since then she has had improvement in diarrhea. She is having 2-3 soft stools daily. She still experiences occasional fecal urgency Patient has been seen by [facility] in the past for reflux. Upper endoscopy done around April 2022 revealed Grade C esophagitis. She notes that surgery was recommended to control her reflux symptoms as it was not responding to PPI therapy. Patient then had a Toupet fundoplication on January 11, 2023 at [facility] in [place], [place]. She initially felt okay, but in April 2023 she developed bloating, early satiety, nausea, and vomiting. She also experienced a recurrence of her acid reflux symptoms. Of note, around this time she was also taking Ozempic. She has since discontinued this after these symptoms started. Denies dysphagia or odynophagia. Barium esophagram completed in April 2023 showed a delay in emptying. She then had a gastric emptying study completed on 05/05/2023 which showed significant delay in gastric emptying. At 4 hours, she had 62% meal retention. She experiences nausea and early satiety. She specifically notes her surgeon in [place] believes there was vagal nerve damage when she underwent emergent repair for her gastric band placement in 2019. She states he has recommended vagal nerve botox to alleviate symptoms of delayed gastric emptying. Patient underwent an upper endoscopy on 06/16/2023 for evaluation of heartburn and delay in gastric emptying. Upper endoscopy revealed inlet patch in proximal esophagus and esophagus otherwise normal. Duodenum was normal. The previous fundoplication appeared loose and there was a small hiatal hernia proximal to the wrap with evidence of Marshall lesions. GI Symptoms or Concerns Debby e is a pleasant 52-year-old female s/p partial fundoplication who presents for follow up of diarrhea, delay in gastric emptying, heartburn, and bloating. She has a medical history of gastric band placement with subsequent removal after it slipped acutely in 2018. She also has a history of rheumatoid arthritis and lupus, for which she is on methotrexate and Plaquenil, chronic headaches, depression, and anxiety. Patient's C diff test came back positive and she was treated with oral vancomycin for ten days. She has had improvement in bowel habits since then. She is now having 1-2 soft stools daily. She does still have periods of lower abdominal cramping and subsequent diarrhea. Patient underwent an upper endoscopy on 06/16/2022 for evaluation of heartburn and delay in gastric emptying. Upper endoscopy revealed inlet patch in proximal esophagus and esophagus otherwise normal. Duodenum was normal. The previous fundoplication appeared loose and there was a small hiatal hernia proximal to the wrap with evidence of Marshall lesions. GI Symptoms or Concerns Debby ramsay is a pleasant 52-year-old female s/p partial fundoplication who presents for follow up of diarrhea and to discuss delay in gastric emptying, heartburn, and bloating. She has a medical history of gastric band placement with subsequent removal after it slipped acutely in 2018. She also has a history of rheumatoid arthritis and lupus, for which she is on methotrexate and Plaquenil, chronic headaches, depression, and anxiety. We initially saw her for evaluation of diarrhea on 05/18/2023. In review, she had presented to the ED in [place] for evaluation of diarrhea and malaise. Stool studies including C dif were negative. She was treated empirically for gastroenteritis with ciprofloxacin and metronidazole. Her symptoms progressed and she returned to the ED. They did a CT scan which revealed mild diffuse mural thickening from the cecum to the rectum and noted the cecum in the LLQ. They questioned if this could represent C diff despite negative test and she was started on oral vancomycin. Today she notes improvement in diarrhea and is having around 3 loose stools daily. She is still experiencing fecal leakage. She reports having pelvic floor workup done at [facility] which revealed a pelvic floor dysfunction. Patient has been seen by [facility] in the past for reflux. Upper endoscopy done around April 2022 revealed Grade C esophagitis. She has been on lansoprazole and omeprazole in the past. Patient currently takes pantoprazole 40mg twice daily. She notes that surgery was recommended to control her reflux symptoms. Patient then had a Toupet fundoplication on 2022 at [facility] in [place], [place]. She initially felt okay, but in April she developed bloating, early satiety, nausea, and vomiting. She also experienced a recurrence of her acid reflux symptoms. Of note, around this time she was also taking Ozempic. She has since discontinued this after these symptoms started. Denies dysphagia or odynophagia. Notes ear pain and vocal hoarseness. Barium esophagram completed in April 2023 showed a delay in emptying. She then had a gastric emptying study completed on 05/05/2023 which showed significant delay in gastric emptying. At 4 hours, she had 62% meal retention. We reviewed the results on her phone and I have requested the records be scanned in her chart. GI Symptoms or Concerns GI Symptoms or Concerns Debby ramsay is a pleasant 52-year-old female with whom I had a virtual visit with today for further discussion regarding diarrhea Debby is seen in consultation at the request of Doctor Taran Rivas. Waleska has been seen by our practice before, but not since 2019. I do not have any recent progress notes, procedure or pathology reports, imaging studies, labs to review which makes this particular visit quite challenging. Debby has a history of lupus. Additionally, it seems that she spends half of her time living in [place], [place] and half of her time living in [facility] and as such, her medical care is quite fragmented. Waleska has a history of a gastric lap band that was removed in 2019 after the lap band acutely slipped and was essentially creating outlet obstruction. At the time of Natasha's last visit in 2019 her primary symptoms included bloating, abdominal pain, diarrhea that was thought to be secondary to overflow diarrhea based on recent imaging and a history of constipation. At that point in time a breath test for SIBO was recommended as was an upper endoscopy and a colonoscopy, I do not see that those were completed per Waleska's chart. What seemingly drove today's visit was a recent history of diarrhea. Waleska reports that up until recently, her bowel pattern had been to have a normal, formed bowel movement daily. She did not endorse a recent history of constipation she reports that for the past week or perhaps more. She has been passing loose watery stool. She endorses episodes of incontinence to the point where she has had to wear an adult diaper. She reports a significant amount amount of mucus has been in her stool. She previously endorses experiencing crampy abdominal discomfort, though states this has subsided. She endorses profound fatigue. She states that she presented to the emergency room in [facility] several days ago where stool studies were performed and were unremarkable per her report. She additionally states that her blood work was normal. She reports being discharged after receiving IV fluids. despite a negative workup, she reports being placed on both ciprofloxacin and metronidazole in the event that she did have gastroenteritis. She states that her symptoms progressed and she returned to the emergency room. She reports that a CT scan was done at that point, which revealed inflammation of the:. She states there was a question of if this could represent C. Diff even though her C. Diff test was reportedly negative and she was subsequently placed on oral vancomycin. Again, I do not have any records surrounding these ER events. Waleska reports that her last colonoscopy was done through the [facility] approximately one to two years ago. She reports that her last day of antibiotic therapy is tomorrow. Again she states that her abdominal pain has regressed however, she does not report any significant impact in terms of her diarrhea. She has tried Imodium and states this slows her diarrhea somewhat, though she continues to be symptomatic. Of note, Waleska does carry a diagnosis of lupus and is on both methotrexate and Plaquenil. GI Symptoms or Concerns GI Symptoms or Concerns This is a 48-year-old woman who presents in followup. I last saw her in December as a referral for abdominal bloating and pain. She has a medical history, which includes a gastric band placement with subsequent removal after it slipped acutely. She has rheumatoid arthritis, on Plaquenil therapy, chronic headaches on Topamax, insomnia on Cymbalta as well as depression and anxiety. There is also a prior diagnosis of celiac disease.At last visit, we discussed her loose stool symptoms despite having an x-ray showing constipation. This was addressed initially with colonics. She did not feel that MiraLax was particularly effective for her especially since she did not like taking it in general. I had her perform a colon cleanse, which she does report helped with some of her symptoms. She actually is having a daily stool now and does not believe she is constipated any longer. However, she still has bloating and gas with a generalized sense of discomfort. She feels that sugar in GI Symptoms or Concerns This is a 48-year-old woman who presents as referral from Taran Rivas in consultation for abdominal bloating and abdominal pain. She has a history of gastric band placement back in 2006. This was also repositioned at some point after that surgery. She had started to experience a couple months of tendency towards looser stools. This was in spring, and she felt that when she consumed too much soda or sugar, she would have loose stools and even occasional incontinence. Symptoms seem to worse of stress in general. However, there was overwhelming sense of constipation during that time as well. She was visiting her daughter in the [place] area when she developed acute abdominal pain, diarrhea, nausea and vomiting. CT scan revealed a slipped laparoscopic band with outlet obstruction and she had surgery to remove it. She has gained about 6 pounds since the band was removed, although had been quite ill in the weeks leading up to the removal and had lost weight before the surgery. Functional Status Date Functional Assessmen t No Information Instructions Date Instruction Additional Infor dee Low FODMAPS diet Related to Irre gular bowel habits Gastroparesis Soft Diet Related to Irregular bowel habits Gastroparesis Soft Diet Related to Gastroesophageal reflux disease, unspecified whether esophagitis present Diverticulosis/Diverticulitis Re lated to Colorectal polyps Colon Polyps Related to Color ectal polyps High Fiber Diet Related to Color ectal polyps 1. Aforementioned me dical records have been requested.2. . Plan for colonoscopy, we will notify Waleska if this plan changes after review of medical records. Colonoscopy would include evaluation of the terminal ileum and random biopsies of the colon. Related to Diarrhea, unspecified type I recommend testing for bacterial overgrowth. If it is positive, we would treat with antibiotics.We will plan to perform a colonoscopy to evaluate for any structural or inflammatory changes that would influence her symptoms. If this is unremarkable, we have the option to consider MR versus CT enterography to evaluate for small bowel inflammatory disease. In the meanwhile, we will also arrange an upper endoscopy to include gastric and duodenal biopsies. Down the road, we may consider a gastric emptying study to confirm, but I suspect she has, which is impaired gastric emptying.In the meanwhile, I think it is very reasonable to avoid high sugar foods or even gluten if they tend to make her feel worse. We will plan to follow up following the above tests to review the results together.She is seeing a provider through her health facility. I asked her to keep me informed of any treatments or changes in her plan through their office. Related to Gastroesophageal reflux disease, esophagitis presence not specified I recommend taking 1 to 2 colon cleanses until she is cleaned out and then contacting my office with an update. If she feels well after the cleanse, then we can proceed with daily MiraLax 17 g for at least 2 weeks to see if that helps with all of her symptoms. If that is ineffective, we could consider going back to [place]. Down the road, keeping bowel regularity may help her to broaden her diet any more foods in general.If the cleanse is ineffective for her, we discussed the potential x-ray to confirm that she is cleaned out. Otherwise, we could consider either breath testing for bacterial overgrowth, CT versus MR enterography to evaluate for small bowel disease, or colonoscopy. I would favor the colonoscopy if symptoms progress or if there continues to be concerned about bleeding.She is welcome to continue to avoid problematic foods. Down the road, we may look into a low FODMAP diet to see if that is helpful for her. I will arrange for followup appointment in about 6 weeks to review response. We will plan to keep in touch with her in the coming weeks.Thank you very much for allowing me to participate in her care. Related to Bloating Constipation Bowel Cleanse Relat ed to Bloating Assessments Type Assessment Date No Information Patient Care Teams Name Effective Dates (start - stop) Status Members No Information
--- OUTSIDE RECORDS SUMMARY | 2024-10-11 09:50 | XMS_ITS | Continuity of Care Document ---
Author Organization [facility] Address [address] [address] [place] [address] Phone Care Team Providers Care Blender Operator Name Role Phone Nikki PA, Daxa [...] Diagnoses Date Provider Providers Copied on Encounter [facility], [address] [address], [place], [place], [id number], [place] tel:[phone] [facility] No Information Nikki Mittal. [address] [place] [address], [address], [id number], [place]. [phone] Established Level 3 Low [facility], [address] [address], [place], [place], [id number], [place] tel:[phone] [facility] GI Symptoms or Concerns (chief complaint) Irregular bowel habitsDelayed gastric emptying 5 Nikki Mittal. [address] [place] [address], [id number], [place]. tel:[phone] Taran Rivas MD. tel:[phone] Wharton MD. tel:[phone] erring Provider: Referral Self, USE FOR SELF REFERRALS. [facility], [address] [address], [place], [place], [id number], [place] tel:[phone] [facility] GI Symptoms or Concerns (chief complaint) No Information 5 Nikki Mittal. [address] [place] [address], [id number], [place]. [phone] Taran Rivas MD. tel:[phone] Wharton MD. tel:[phone] [facility], [address] [address], [facility] [place], [id number], [place] tel:[phone] [facility] No Information [address] [facility], [address], [place], [place], [id number], [place]. tel:[phone] Referring Provider: Bony Morse MD, [address] [place] [address] [address], [place], [address] . tel:[phone] Offic/outpt E&m Estab Mod-hi 2 [facility], [address] [address], [place], [id number], [place] tel:[phone] [facility] GI Symptoms or Concerns (chief complaint) Diarrhea, unspecifiedFla tulenceGastrop aresisGERD without esophagitis 5 Nikki Mittal. [address] [place] [address], [facility] [address], [place], [id number], [place]. tel:[phone] Taran Rivas MD. tel:[phone] Wharton MD. tel:[phone] erring Provider: Referral Self, USE FOR SELF REFERRALS. [facility], [address] [address], [place], [id number], [place] tel:[phone] [facility] No Information [address] [facility], [facility] [address], [place], [id number], [place]. tel:[phone] Referring Provider: [place], [address] [place] [address] [address], [place], [address] . tel:[phone] [facility], [address] [address], [place], [id number], [place] tel:[phone] [facility] No Information 4 Nargis Cisneros. [address] [place] [address], [address], [place], [place], [id number], [place]. tel:[phone] Established Level 4 [facility], [address] [address], [place], [id number], [place] tel:[phone] [facility] GI Symptoms or Concerns (chief complaint) Gastroparesis [address] [facility], [facility] [address], [place], [id number], [place]. tel:[phone] Taran Rivas MD. tel:[phone] Wharton MD. [phone] erring Provider: Referral Self, USE FOR SELF REFERRALS. [facility], [address] [address], [place], [address], [place] tel:[phone] [facility] No Information [address] [facility], [facility] [address], [place], [id number], [place]. tel:[phone] [facility], [address] [address], [place], [id number], [place] tel:[phone] [facility] No Information 4 Decelles PA Daxa. [address] [facility], [facility] [address], [id number], [place]. tel:[phone] [facility], [address] [address], [place], [id number], [place] tel:[phone] [facility] Bloating 4 Decelles PA Daxa. [address] [facility], [facility] [address], [id number], [place]. tel:[phone] Established Level 3 [facility], [address] [address], [place], [address], [place] tel:[phone] [facility] GI Symptoms or Concerns (chief complaint) Delayed gastric emptyingGastro paresis 4 Decelles PA Daxa. [address] [facility], [facility] [address], [id number], [place]. tel:[phone] Taran Rivas MD. tel:[phone] Wharton MD. tel:[phone] erring Provider: Referral Self, USE FOR SELF REFERRALS. Established Level 5 [facility], [address] [address], [place], [id number], [place] tel:[phone] [facility] GI Symptoms or Concerns (chief complaint) Hiatal herniaGastropa resisGERD without esophagitisPel jordan floor dysfunction 4 Shani Vang. [address], [id number], . tel:[phone] Taran Rivas MD. tel:[phone] Wharton MD. tel:[phone] erring Provider: Referral Self, USE FOR SELF REFERRALS. Offic/outpt E&m Estab Low-mod [facility], [address] [address], [place], [id number], [place] tel:[phone] [facility] GI Symptoms or Concerns (chief complaint) Delayed gastric emptyingGastro -esophageal reflux disease without esophagitisHis tory of Clostridioides difficile colitisIrregul ar bowel habits 4 Nikki Mittal. [facility] [address], [id number], [place]. tel:[phone] Taran Rivas MD. tel:[phone] erring Provider: Referral Self, USE FOR SELF REFERRALS. [facility], [address] [address], [place], [id number], [place] tel:[phone] [facility] No Information [address] [facility], [address], [id number], [place]. tel:[phone] Offic/outpt E&m Estab Low-mod [facility], [address] [address], [place], [id number], [place] tel:[phone] [facility] GI Symptoms or Concerns (chief complaint) Delayed gastric emptyingGastro esophageal reflux disease without esophagitisHis tory of Clostridioides difficile colitisIrregul ar bowel habits 4 Decelbrent Mittal. [address] [place] [address], [address], [id number], [place]. tel:[phone] Temo Wharton MD. tel:[phone] erring Provider: Referral Self, USE FOR SELF REFERRALS. [facility], [address] [address], [place], [id number], [place] tel:[phone] [facility] Gastroesophage al reflux disease without esophagitisOth er specified postprocedural statesGastro-e sophageal reflux disease without esophagitis 4 Min MD Bai. [address] [place] [address], [id number], [place]. tel:[phone] Temo Wharton MD. tel:[phone] erring Provider: Referral Self, USE FOR SELF REFERRALS. Offic/outpt E&m Estab Mod-hi 2 [facility], [address] [address], [place], [id number], [place] tel:[phone] [facility] GI Symptoms or Concerns (chief complaint) Diarrhea, unspecifiedDel ayed gastric emptyingGastro esophageal reflux disease, unspecified whether esophagitis presentDyspeps ia 4 Decelbrent Mittal. [address] [place] [address], [id number], [place]. tel:[phone] Temo Wharton MD. tel:[phone] erring Provider: Referral Self, USE FOR SELF REFERRALS. [facility], [address] [address], [place], [place], [address], [place] tel:[phone] [facility] GI Symptoms or Concerns (chief complaint) Diarrhea, unspecifiedCol orectal polypsDivertic ulosis of colon without diverticulitis Benign neoplasm of transverse colon 4 Sancho Taylor. [address] [place] [address], [address], [id number], [place]. tel:[phone] Temo Wharton MD. tel:[phone] erring Provider: Referral Self, USE FOR SELF REFERRALS. New Level 4 [facility], [address] [address], [place], [id number], [place] tel:[phone] [facility] GI Symptoms or Concerns (chief complaint) Diarrhea, unspecified typeAbdominal pain, unspecified abdominal location 4 Eric Alonso. [address], [id number], [place]. tel:[phone] Referring Provider: Taran Gonzales, [address] [place] [address], [address]. tel:[phone] [facility], [address] [address], [place], [id number], [place] tel:[phone] [place] [facility] GI Symptoms or Concerns (chief complaint) No Information 4 Eric Alonso. [address], [id number], [place]. tel:[phone] [facility], [address] [address], [place], [id number], [place] tel:[phone] No Information 4 No Information Referring Provider: Taran Gonzales, [address] [place] [address], [address]. tel:[phone] Offic/outpt E&m Estab Mod-hi 2 [facility], [address] [address], [place], [id number], [place] tel:[phone] [facility] GI Symptoms or Concerns (chief complaint) Gastroesophage al reflux disease, esophagitis presence not specifiedBloat ingFlatulenceR ight sided abdominal pain 0-201 9 Regis Costa. [address], [id number], [place]. tel:[phone] Referring Provider: Referral Self, USE FOR SELF REFERRALS. [facility], [address] [address], [place], [address], [place] tel:[phone] [facility] Bloating [address] [facility], [facility], [place], [place], [address], [place]. tel:[phone] Office Cons New/estab Mod [facility], [address] [address], [facility] [place] [id number], [place] tel:[phone] [facility] GI Symptoms or Concerns (chief complaint) BloatingRight sided abdominal pain [address] [facility], [facility], [place], [place], [id number], [place]. tel:[phone] Referring Provider: Taran Gonzales, [address] [place] [address], [address]. tel:[phone] Family History Family Member Type Diagnosis Age [...] Canine Kidney, preservative free, quadrivalent administered Note: ID IC bi- directional interface ; Source: Other Registry zoster vaccine recombinant administered N ote: MIIC bi-directional interface ; Source: Other Registry Influenza, Madin Elida Canin e Kidney, subunit, quadrivalent, injectable, preservative free administered Note: MIIC bi-directional interface ; Source: Other Registry Influenza, injectable, Madin Elida Canine Kidney, preservative free, quadrivalent administered Note: ID IC bi- directional interface ; Source: Other [...] Insurance type Covered republican ID Authoriza tion(s) [facility] [id number] Social History Type Description Quantity Date Captured [...] fragmented care. She has been seen by [facility] in the past as well as a surgeon in [place], [place] who she follows with regularly. Please [...] Patient notes that she has met with [facility] who are recommending she complete a G [...] fragmented care. She has been seen by [facility] in the past as well as a surgeon in [place], [place] who she follows with regularly. Please [...] She did have anorectal manometry done through [facility] which revealed a pelvic floor disorder. She [...] considering a pylorolasty with Dr. Sánchez in [place]. She has met with a dietitian and [...] fragmented care. She has been seen by [facility] in the past as well as a surgeon in [place], [place] who she follows with regularly. We initially saw her for evaluation of diarrhea In May 2023. In review, she had presented to the ED in [place] for evaluation of diarrhea and malaise. Stool [...] fecal urgency Patient has been seen by [facility] in the past for reflux. Upper endoscopy done around April 2022 revealed Grade C esophagitis. She notes that surgery was recommended to control her reflux symptoms as it was not responding to PPI therapy. Patient then had a Toupet fundoplication in December 2022 at [facility] in [place], [place]. She initially felt okay, but in [...] early satiety. She notes her surgeon in [place] believes there was vagal nerve damage when [...] wrap, followed closely by her surgeon in [place] Dr. Sánchez. Overall the patient states that [...] She has been seen and evaluated at [facility] but could not continue due to the recommendations of doing a strict biofeedback for pelvic floor. For her reflux and gastroparesis she has been seen by her surgeon in [place] who has planning an intervention at the [...] fragmented care. She has been seen by [facility] in the past as well as a surgeon in [place], [place] who she follows with regularly. We initially saw her for evaluation of diarrhea on 05/18/2023. In review, she had presented to the ED in [place] for evaluation of diarrhea and malaise. Stool [...] fecal urgency Patient has been seen by [facility] in the past for reflux. Upper endoscopy done around April 2022 revealed Grade C esophagitis. She notes that surgery was recommended to control her reflux symptoms as it was not responding to PPI therapy. Patient then had a Toupet fundoplication on January 11, 2023 at [facility] in [place], [place]. She initially felt okay, but in [...] satiety. She specifically notes her surgeon in [place] believes there was vagal nerve damage when [...] she had presented to the ED in [place] for evaluation of diarrhea and malaise. Stool [...] reports having pelvic floor workup done at [facility] which revealed a pelvic floor dysfunction. Patient has been seen by [facility] in the past for reflux. Upper endoscopy done around April 2022 revealed Grade C esophagitis. She has been on lansoprazole and omeprazole in the past. Patient currently takes pantoprazole 40mg twice daily. She notes that surgery was recommended to control her reflux symptoms. Patient then had a Toupet fundoplication on 2022 at [facility] in [place], [place]. She initially felt okay, but in [...] spends half of her time living in [place], [place] and half of her time living in [facility] and as such, her medical care is [...] she presented to the emergency room in [facility] several days ago where stool studies [...] her last colonoscopy was done through the [facility] approximately one to two years ago. She [...] She was visiting her [place] in [place] when she developed acute abdominal pain, [...]
--- NOTE | 2024-10-18 15:00 | CRLHL7_ITS ---
For Patients: As a result of the Cures Act, medical imaging exams and procedure reports are released immediately into your electronic medical record. You may view this report before your referring provider. If you have questions, please contact your health care provider. Indication: Chronic sinusitis Technique: Performed without IV contrast Comparison: 06/01/2024 Findings: Frontal sinuses: Clear. Ethmoid sinuses: Clear. Maxillary sinuses: Complete opacification of the right maxillary sinus is present. Similar coarse calcifications noted within the sinus. Left maxillary sinuses clear. The maxillary sinus drainage pathways are obstructed on the right and clear on the left. Sphenoid sinuses: Clear, including both sphenoethmoidal recesses. Nasal Cavity: Paradoxical turn of the right middle turbinate. Slight leftward curvature of the nasal septum. No nasal polyps. Postop changes again noted. No TMJ abnormalities identified. The visualized portions of the orbits, intracranial contents and upper soft tissue neck are grossly negative. Impression: 1. Chronic right maxillary sinus disease with progression since the prior study. There is now complete opacification noted with obstruction of the sinus drainage pathway. 2. Slight leftward curvature of the nasal septum. Please note that all CT scans at this facility use dose modulation, iterative reconstruction, and/or weight-based dosing when appropriate to reduce radiation dose to as low as reasonably achievable. Dictated by Newton Cuellar MD @ 10/19/2024 11:02:12 AM (Electronically Signed)
--- OUTSIDE RECORDS SUMMARY | 2024-10-18 16:55 | XMS_ITS | Clinical Summary ---
Author Organization [facility] Address [address] [place] [address] Care Team Providers Care Baton Teacher Name Role Phone Unavailable Primary Care Provider [...] for each transition of care or referral. [facility] Active Allergy Reactions Criticality Noted Date [...] Services) 1987 Adult Preventive Visit 12/30/1989 HepB Vaccine (1) 12/30/1990 Cholesterol 12/30/2016 Mammogram 01/29/2017 01/30/2016, 12/31, 12/26/2012 Pneumococcal Vaccine 50+ Yrs (1 of 1 - PCV) 12/30/2021 Zoster/Shingles Vaccine (1 of 2) 12/30/2021 COVID-19 Vaccine (6 - season) 2024 11/13/2021, 08/06/2021, 12/24/2020, Additional history exists Influenza Vaccine (Season Ended) 2024 01/31/2022, 03/25/2021, 01/28/2020, Additional history exists DTaP/Tdap/Td Vaccine (3 - Tdap) 07/19/2031 07/18/2021, 07/11/2014 HepA Vaccine Aged Out No longer eligi ble based on patient's age to complete this topic Hib Vaccine Aged Out No longer eligi ble based on patient's age to complete this topic IPV (Polio) Vaccine Aged Out No longe r eligible based on patient's age to complete this topic MCV4 Vaccine Aged Out No longer eligi ble based on patient's age to complete this topic Meningococcal B Vaccine Aged Out No l onger eligible based on patient's age to complete this topic Insurance [facility] OUT OF STATE
--- OUTSIDE RECORDS SUMMARY | 2024-10-18 16:55 | XMS_ITS | Clinical Summary ---
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 Active amLODIPine (NORVASC) 2.5 MG tablet Take 2.5 mg by mouth daily. Active butalbital-kevin taminophen-caf feine (ESGIC) 50-325-40 MG tablet Take 1 tablet by mouth every 4 hours as needed for headaches. Active cetirizine-pse udoePHEDrine ER (ZYRTEC-D) 5-120 MG 12 hr tablet Take 1 tablet by mouth 2 times daily as needed for allergies. Active amphetamine-de xtroamphetamin e (ADDERALL XR) 15 MG 24 hr capsule Take 15 mg by mouth daily. 08/02/19 25 Active amphetamine-de xtroamphetamin e (ADDERALL XR) 30 MG 24 hr capsule Take 30 mg by mouth daily. 07/28/19 25 Active dicyclomine (BENTYL) 10 MG capsule Take 10 mg by mouth 4 times daily as needed. 07/31/19 25 Active famotidine (PEPCID) 40 MG tablet Take 40 mg by mouth at bedtime. 07/26/19 25 Active fluticasone (FLONASE) 50 MCG/ACT nasal spray [place] 1 spray into both nostrils every 12 hours as needed. 05/03/19 25 Active acetaminophen (TYLENOL) 500 MG tablet Take 500-1,000 mg by mouth. Active folic acid (FOLVITE) 1 MG tablet Take 3 mg by mouth daily. Active EMGALITY 120 MG/ML injection Inject 120 mg subcutaneously once. Active hydroxychloroq uine (PLAQUENIL) 200 MG tablet Take 200 mg by mouth daily. 200-400mg alternates q hs 07/26/19 25 Active ketorolac (TORADOL) 10 MG tablet Take 10 mg by mouth every 8 hours as needed for pain. 06/26/19 25 Active phentermine (ADIPEX-P) 37.5 MG tablet Take 37.5 mg by mouth every morning (before breakfast). 08/02/19 25 Active WEGOVY 1.7 MG/0.75ML pen Inject 1.7 mg subcutaneously every 7 days. 08/10/19 25 Active SUMAtriptan (IMITREX STATDOSE) 6 MG/0.5ML pen injector kit Inject 6 mg subcutaneously every 12 hours as needed for migraine. 08/10/19 25 Active sulfaSALAzine ER (AZULFIDINE EN) 500 MG EC tablet Take 500 mg by mouth 3 times daily. 09/29/19 24 Active tranexamic acid (LYSTEDA) 650 MG tablet Take 650 mg by mouth daily. Active RABEprazole (ACIPHEX) 20 MG EC tablet Take 20 mg by mouth 2 times daily. 07/26/19 25 Active ibuprofen (ADVIL/MOTRIN) 800 MG tabletIndicati ons:Migraine Take 800 mg by mouth once as needed for moderate pain. migraines Active DULoxetine (CYMBALTA) 20 MG capsule Take 40 mg by mouth daily. 025 Discontin ued(Patie nt Discharge ) Encounters Date Type Department Care Team Description 5 12:37 AM CDT Anesthesia Event [facility] [place] [address] Aly Bain MD 5 2:06 PM CDT Anesthesia Event [facility] [address] [place] [address] Aly Bain MD Klein, Kathryn Lee, APRN CRNA 5 1:30 PM CDT - 5 2:10 PM CDT Surgery [facility] [address] [place] [phone] Rogelio Morse MD ESOPHAGOGASTRODUODENOSCOPY WITH BOTULINUM TOXIN 100 UNITS 5 1:08 PM CDT - 5 3:51 PM CDT Hospital Encounter [facility]/Phase II [address] [place] [phone] Rogelio Morse MD Discharge Disposition: Home or Self Care 5 Medical Correspondence [address] [phone] Scan, Non-Provider 5 Travel 5 Travel from Last 3 Months Social History Tobacco Use Types Packs/Day Years Used Date Smoking Tobacco: Never Smokeless Tobacco: Never Tobacco Cessation:Counseling Given: Not Answered Alcohol Use Standard Drinks/Week Comments Never 0 (1 standard drink = 0.6 oz pur e alcohol) Adolescent Education Answer Date Record ed Getting School Help Needed Not on file 01/22 Interpersonal Safety Answer Date Record ed Do you feel physically and e motionally safe where you currently live? Yes 08/23/2024 Within the past 12 months, h ave you been hit, slapped, kicked or otherwise physically hurt by someone? No 08/23/2024 Within the past 12 months, h ave you been humiliated or emotionally abused in other ways by your partner or ex-partner? 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 Gender Identity Not on file Sexual Orientation Not on file Last Filed Vital Signs Vital Sign Reading Time Taken Comments Blood Pressure 115/64 08/23/2024 3:30 PM CDT Pulse 71 08/23/2024 3:30 PM CDT Temperature 36.3 C (97.4 F) 08/23/2024 2:50 PM CDT Respiratory Rate 13 08/23/2024 3:30 PM CDT Oxygen Saturation 97% 08/23/2024 3:30 PM CDT Inhaled Oxygen Concentration - - Weight 62.6 kg (138 lb) 08/23/2024 12:00 PM CDT Height 158 cm (5' 2.21) 08/23/2024 12:00 PM CDT Body Mass Index 25.07 08/23/2024 12:00 PM CDT Plan of Treatment Health Maintenance Due Date Last Done Comments ADVANCE CARE PLANNING 1970 ANNUAL REVIEW OF HM ORDERS 1971 CT COLONOGRAPHY 1971 DIABETES SCREENING 1970 FIT 1971 FLEX SIG 1971 sDNA (Cologuard) 1970 YEARLY PREVENTIVE VISIT 12/30/1974 COLONOSCOPY 12/30/1981 COLORECTAL CANCER SCREENING 12/30/1981 HIV SCREENING 12/30/1986 HEPATITIS C SCREENING 12/30/1989 PNEUMOCOCCAL VACCINE 50+ YEARS (1 of 2 - PCV) 12/30/1990 LIPID 2011 MAMMO SCREENING 12/26/2014 12/26/2012, 09/28/2011 PAP 08/15/2023 08/14/2020 COVID-19 VACCINE ( season) 2024 11/13/2021, 08/06/2021, 12/24/2020, Additional history exists PHQ-2 (once per calendar year) 2024 DTAP/TDAP/TD VACCINE (3 - Td or Tdap) 02/23/2034 02/24/2024, 07/11/2014 HEPATITIS B VACCINE Completed 02/21/2019, 9 ZOSTER VACCINE Completed 06/17/2023, 12/29/2022 INFLUENZA VACCINE Completed 01/30/2024, , 01/31/2022, Additional history exists HPV VACCINE Aged Out No longer eligi ble based on patient's age to complete this topic MENINGITIS VACCINE Aged Out No longer eligible based on patient's age to complete this topic Procedures Procedure Name Priority Date/Time Associated Diagnosis Comments ANE AIRWAY ETT PERFORMABLE Routine 08/23/2024 2:16 PM CDT UGI ENDOSCOPY DIAG W SUBMUCOSAL INJECTION 08/23/2024 2:06 PM CDT Change in bowel habits Gas bloat syndrome Gastroparesis Gastroesophageal reflux disease Heartburn Special Needs 100 units botoxPrior auth #[id number] UPPER GI ENDOSCOPY Routine 08/23/2024 1: 24 PM CDT from Last 3 Months Results * ANE AIRWAY ETT PERFORMABLE (08/23/2024 2:16 PM CDT) Narrative Noelle Burnett APRN WIRE STRANDER - 08/23/2024 2:16 PM CDT Noelle Burnett APRN WIRE STRANDER 08/23/2024 2:30 PM Airway Patient location during procedure: OR Procedure Start/Stop Times: 08/23/2024 2:16 PM Staff - WIRE STRANDER: Noelle Burnett APRN CRNA Performed By: CRNAIndications and Patient Condition Indications for airway management: charu-procedural Induction type:RSI Mask difficulty assessment: 0 - not attempted Final Airway Details Final airway type: endotracheal airway Successful airway: ETT - single Endotracheal Airway Details ETT size (mm): 7.0 Cuffed: yes Cuff volume (mL): 7 Successful intubation technique: video laryngoscopy VL Blade Size: Glidescope 3 Grade View of Cords: 1 Adjucts: stylet Position: Right Measured from: lips Secured at (cm): 20 Bite block used: None Post intubation assessment Placement verified by: capnometry, equal breath sounds and chest rise Number of attempts at approach: 1 Number of other approaches attempted: 0 Secured with: tape Ease of procedure: easy Dentition: Intact and Unchanged Medication(s) Administered Medication Administration Time: 08/23/2024 2:16 PM us Aly Bain MD [place] ANESTHESIA Final Result * UPPER GI ENDOSCOPY (08/23/2024 1:24 PM CDT) [facility] Upper GI Endoscopy [address] [id number] ___ Patient Name: Waleska Diaz Procedure Date: 08/23/2024 1:24 PM Date of : 1970 Admit Type: Outpatient Age: 53 Note Status: Finalized Attending MD: ROGELIO MORSE MD, Total Sedation Time: Instrument Name: EGD Scope [id number] ___ Procedure: Upper GI endoscopy Indications: For therapy of gastroparesis Providers: ROGELIO MORSE MD Referring MD: Medicines: General Anesthesia Complications: No immediate complications. ___ Procedure: Pre-Anesthesia Assessment: - Prior to the procedure, a History and Physical was performed, and patient medications, allergies and sensitivities were reviewed. The patient's tolerance of previous anesthesia was reviewed. - The risks and benefits of the procedure and the sedation options and risks were discussed with the patient. All questions were answered and informed consent was obtained. - Patient identification and proposed procedure were verified prior to the procedure by the physician, the nurse, the anesthesiologist and the badger distiller operator. The procedure was verified in the pre-procedure area in the procedure room. After obtaining informed consent, the endoscope was passed under direct vision. Throughout the procedure, the patient's blood pressure, pulse, and oxygen saturations were monitored continuously. The endoscope was introduced through the mouth, and advanced to the duodenal bulb. Findings: The examined esophagus was normal. A medium amount of food (residue) was found in the gastric fundus, in the gastric body and in the gastric antrum. A stenosis was found at the pylorus. This was traversed. Area was successfully injected with 100 units botulinum toxin. Food (residue) was found in the duodenal bulb. Moderate Sedation: Moderate (conscious) sedation was personally administered by an anesthesia professional. The following parameters were monitored: oxygen saturation, heart rate, blood pressure, and response to care. Impression: - Normal esophagus. - A medium amount of food (residue) in the stomach. - Gastric stenosis was found at the pylorus. Injected with botulinum toxin. - Retained food in the duodenum. - No specimens collected. Recommendation: - Discharge patient to home (with escort). - Consider treatment with metoclopramide if not already attempted Rogelio Morse MD ROGELIO MORSE MD 08/23/2024 2:30:36 PM I was physically present for the entire viewing portion of the exam. Signature of teaching physician B4c/Nakita MORSE MD Number of Addenda: 0 Note Initiated On: 08/23/2024 1:24 PM Scope In: 2:21:20 PM Scope Out: 2:24:26 PM RADIOLOGY RESULTS 08/23/2024 1:24 PM CDT us Rogelio Morse MD PROCEDURES Final Result RADIOLOGY RESULTS from Last 3 Months Insurance [facility] OUT OF STATE BCBS OUT OF STATE Care Teams Coil Former Relationship Specialty Start Date End Date Taran Rivas MD [facility] [address] [place] [address] PCP - General Emergency Medicine 08/23/24 Temo Wharton MD [address] [facility] [address] [place] [address] Bariatric 08/23/24
--- OUTSIDE RECORDS SUMMARY | 2024-10-18 16:55 | XMS_ITS | Encounter Summary ---
Author Organization [facility] Address [address] [place] [address]. [place] [address] Care Team Providers Care Vice President Marketing & Development Name Role Phone Taran Rivas MD Primary Care Provider Temo Wharton MD Unavailable [phone] Encounter Details Date Type Department Care Team (Late st Contact Info) Description 06/28/2024 Medical Correspondence [facility] Information Management [address] [facility] [address] [place] [address] Scan, Non-Provider Social History Tobacco Use Types Packs/Day Years Used Date Smoking Tobacco: Never Assessed Adolescent Education Answer Date Record ed Getting [...] your partner or ex-partner? 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
--- OUTSIDE RECORDS SUMMARY | 2024-10-18 16:56 | XMS_ITS | Data Portability ---
Author Organization [facility] Providers, Admin Address [address] [facility] [place] [facility] [place] [address] Care Team Providers Care Tactical Air Control Party Name Role Phone ELIZABETH NELSON Primary Care Provider Assessment No assessment recorded. Plan of Treatment Reminders Order Date Submit Date Provider Last Modified By Organization Details Last Modified Time Details Appointments None recorded. Lab None recorded. Referral None recorded. Procedures None recorded. Surgeries laparoscopi c Toupet fundoplicat ion (SURG) 2022 023 [email or web address] Not available 3 20:56:02 Imaging None recorded. Medication Orders None recorded. Patient TargetsNo targets recorded. Patient Instructions Encounter Date Encounter Id Patient Instructions Last Modified By Organization Details Last Modified Time 09/15/2018 [id number] We discussed the nutrition and fitness regimen required for achieving and maintaining successful weight loss. We reviewed the proper eating habits required following bariatric surgery as well as food choices. An appropriate exercise plan has been recommended with the goal of obtaining 40 minutes per day exercise of moderate intensity 5 days per week. The patient had an opportunity to ask questions. Patients who are struggling are recommended to matrictulate into our monthly medical weight loss program, consult with our adjunct communications faculty member and, if necessary, our behavioral therapist. In addition the patient has been invited to attend our monthly support group meetings. [email or web address] Not available 09/15/2018 13:53:06 01/17/2019 [id number] Change dry dressings as needed, shower 24 hours, prescription for Percocet given, follow-up Tuesday. [email or web address] Not available 01/17/2019 20:54:15 01/22/2019 [id number] Return to usual activities. [email or web address] Not available 01/22/2019 13:16:18 02/25/2020 [id number] The patient need s an EGD and to send me the report with the UGI report. She is not a candidate for any bariatric procedure because her BMI is 30.0. She will set up a video visit after the EGD. [email or web address] Not available 02/25/2020 14:39:46 10/06/2022 [id number] A healthy lifestyle: care instructions [email or web address] Not available 10/08/2022 11:58:52 Of note, we had a lengthy discussion about the indications for the procedure as well as a description of how the procedure is performed. In addition, we discussed the anticipated benefits, the alternative options (including not doing the surgery) as well as the potential risks and complications. The latter of which including bleeding, bowel perforation and infection. The patient has given their consent for the procedure. [email or web address] Not available 10/06/2022 15:22:30 Reason for Referral None Reported. Results Created Date Observation Date Name Description Value Unit Range Abnormal Flag Note LastModifiedBy Organization Detail LastModifiedTime 01/18/20 19 01/17/2019 patho logy study note See Note [facility] r - Labor atory [address] [place] [address] Not Available [facility] [ 542 ] [address] [place], [address], 01/19/2019 19:00:07 01/18/20 19 01/19/2019 patho logy study pathology report DEPAR TMENT OF PATHO LOGY Medic al [facility] tor: Lenard Wilks M.D. PhD Cam johnston M.D. [address] [place] (Lyle ) [place] [address] Matt Monroy M.D. SURGI ASIA WILD FINNEGAN NT: CRISTOBAL MOSES I. CASE ANNALISE R: [id number] DATE OF : 12/30 AGE: 48 yrs SEX: F DATE OF SURGE RY: 01/17 MRN/A CCOUN T #: [id number] / [id number] DATE RECEI CHELSEY: 01/18 12:47 FACIL ITY: OP DATE REPOR CHARI: 01/19 15:57 PHYSI DEMETRI: CHARISSA Devlin M.D. FINAL REPOR T DIAGN OSIS: ABDOM INAL WALL, EXCIS ION: PORTI ON OF SKIN WITH HYPER TROPH IC SCAR NO EVIDE NCE OF MALIG OLGA OR OTHER SIGNI FICAN T PATHO LOGY CLINI ASIA HISTO RY: Disfi gurin g scar. SPECI MEN: SKIN BX GROSS DESCR IPTIO N: Recei chelsey in forma erika is a speci men label ed with prope r patie nt ident ifica tion. It consi sts of a 16.5 x 1.5 cm skin. A 4.5 cm previ ous scar is gross ly ident ified . The remai juany skin surfa ce is dull aragon and unrem arkab le; repre senta tive secti ons are submi tted in A1. MICRO SCOPI C DESCR IPTIO N: Micro scopi c exami natio n was perfo rmed ELECT YANET ANTOLIN ROXANA D BY: Matt Monroy M.D. 01/19 15:57 Direc t Phone : CPT CODES : [id number] This docum ent conta ins confi denti al and privi leged infor matio n and is for the sole use of the inten ded recip ient and is not to be distr ibute d to unaut horiz ed indiv idual s. Page 1 of 1 ACCES FAHAD [id number] Not Available [facility] [ 542 ] [address] [place], [address], 01/19/2019 19:00:07 Result Notes None recorded. Problems Name Problem SNOMED Code Status Onset Date Resolution Date Notes Provider Name and Address Organization Details Recorded Time Hypertensiv e disorder 07582217 Active [facility] 8 13:06:26 Body mass index 20-24 - normal 351399212 Active 2017 Dio SHIRLEY, Temo [address] [place], [address], [facility] 8 13:32:19 Chronic depression 946091355 Active 2017 Temo Wharton MD [address], [place], [address], [facility] 8 13:32:21 History of laparoscopi c adjustable gastric banding 594782773 Completed 201701/22/2019 Temo Wharton MD [address], [place], [address], [facility] 9 13:15:34 Problem Notes None recorded. Procedures Surgical History Date Name Laterality Status Provider Name and Address Organization Details Recorded Time revision of scar completed [facility] 05/01/2018 13:11:[address] [facility] 05/01/2018 13:11:12 laparoscopic adjustable gastric banding completed [facility] 09/14/2018 12:54:[address] [facility] 05/01/2018 13:11:[address] [facility] 02/25/2020 13:38:42 Imaging Results None recorded. Procedure Notes None recorded. Medical Equipment None Reported. Allergies Allergen ID Allergen Name Allergen Category Reaction Reaction Severity Criticality Documentation Date Start Date Code Code System Note Provider Name and Address Organization Details Recorded Time 51139 iodine medicatio n dizziness severe Not available 05/01/2018 5933 RxNorm Monae Cody [facility] 8 13:04:18 34084 adhesive tape environme nt,medica tion other severe Not available 05/01/2018 36921 UNK Monae Ross [facility] 8 13:04:58 44246 pecan nut food facial swelling severe Not available 05/01/2018 36080 UNK Monae Ross [facility] 8 13:05:25 Medications Name Sig Start Date Stop Date Status Note LastModified by Organization Details LastModified Time id now influenza a & b 2 test kit TEST DIRECTED TODAY active Not Available Not Available No t Available buspirone 5 mg tablet active Not Available Not Available No t Available pilocarpine 5 mg tablet active Not Available Not Available Not Available rabeprazole 20 mg tablet,delay ed release TAKE 1 TABLET BY MOUTH TWICE DAILY BEFORE BREAKFAST AND DINNER active Not Available Not Available N ot Available tizanidine 2 mg tablet active Not Available Not Available No t Available triazolam 0.25 mg tablet active Not Available Not Available Not Available doxazosin 1 mg tablet active Not Available Not Available No t Available amitriptylin e 150 mg tablet active Not Available Not Available Not Available azithromycin 250 mg tablet active Not Available Not Available Not Available alprazolam 1 mg tablet TAKE 2 TABLETS BY MOUTH EVERY DAY AT BEDTIME FOR ANXIETY active Not Available Not Available No t Available fluconazole 150 mg tablet active Not Available Not Available Not Available hydrochlorot hiazide 50 mg tablet active Not Available Not Available No t Available cephalexin 250 mg capsule active Not Available Not Available Not Available hydrocodone 5 mg-acetamino phen 325 mg tablet active Not Available Not Available Not Available prazosin 1 mg capsule active Not Available Not Available N ot Available sucralfate 1 gram tablet TAKE 1 TABLET (1 G TOTAL) BY MOUTH 4 (FOUR) TIMES A DAY. TAKE 1 HOUR BEFORE MEALS AND AT BEDTIME active Not Available Not Available N ot Available famotidine 40 mg tablet active Not Available Not Available Not Available prednisone 20 mg tablet TAKE 1 TABLET BY MOUTH TWICE DAILY FOR MIGRAINE HEADACHE active Not Available Not Available No t Available triazolam 0.125 mg tablet active Not Available Not Available Not Available prednisone 5 mg tablet active Not Available Not Available No t Available butalbital 50 mg-acetamino phen 325 mg tablet TAKE 2 TABLETS BY MOUTH EVERY 6 TO 8 HOURS NEEDED active Not Available Not Available No t Available ciprofloxaci n 250 mg tablet TAKE 1 TABLET BY MOUTH TWICE DAILY FOR UTI active Not Available Not Available No t Available methotrexate sodium 25 mg/mL injection solution INJECT 1ML SUBCUTANEOU S ONCE A WEEK active Not Available Not Available No t Available tramadol 50 mg tablet Take 1 tablet every 6 hours by oral route as needed for 5 days. 2018 active Not Available Not Available Not Avai lable butalbital-a cetaminophen -caffeine 50 mg-325 mg-40 mg tablet TAKE 1 TABLET BY MOUTH EVERY 4 TO 6 HOURS NEEDED FOR PAIN active Not Available Not Available No t Available ketorolac 10 mg tablet active Not Available Not Available No t Available dextroamphet amine-amphet amine 30 mg tablet TAKE 1 TABLET BY MOUTH EVERY DAY FOR ADHD active Not Available Not Available No t Available BD Tuberculin Syringe 1 mL 27 x 1/2 USE 1 SYRINGE ONCE WEEKLY active Not Available Not Available Not Available amoxicillin 875 mg tablet TAKE 1 TABLET BY MOUTH TWICE DAILY active Not Available Not Available No t Available hydromorphon e 2 mg tablet active Not Available Not Available Not Available amitriptylin e 25 mg tablet TAKE 1 TABLET BY MOUTH EVERY DAY AT BEDTIME active Not Available Not Available No t Available cephalexin 500 mg capsule active Not Available Not Available Not Available pantoprazole 40 mg tablet,delay ed release TAKE 1 TABLET BY MOUTH TWICE A DAY active Not Available Not Available No t Available dextroamphet amine-amphet amine 20 mg tablet active Not Available Not Available Not Available lisinopril 10 mg tablet active Not Available Not Available Not Available dextroamphet amine-amphet amine 15 mg tablet TAKE 1 TABLET BY MOUTH EVERY DAY FOR ADHD active Not Available Not Available No t Available lansoprazole 15 mg capsule,guilherme yed release active Not Available Not Available Not Available sulfamethoxa zole 200 mg-trimethop rim 40 mg/5 mL oral suspension active Not Available Not Available N ot Available folic acid 1 mg tablet active Not Available Not Available No t Available hydroxyzine HCl 25 mg tablet TAKE 1 TABLET BY MOUTH NEEDED FOR HEADACHES active Not Available Not Available No t Available ergocalcifer ol (vitamin D2) 1,250 mcg (50,000 unit) capsule active Not Available Not Available Not Available lorazepam 1 mg tablet active Not Available Not Available No t Available hydroxychlor oquine 200 mg tablet TAKE 1-2 TABLETS BY MOUTH DAILY. TAKE 1 TABLET ON ODD DAYS AND 2 TABLETS ON EVEN DAYS active Not Available Not Available No t Available estradiol 0.01% (0.1 mg/gram) vaginal cream PLACE A DIME SIZE AMOUNT ON YOUR FINGER AND PLACE IN VAGINA NIGHLY active Not Available Not Available No t Available zolpidem 10 mg tablet TAKE 1 TABLET BY MOUTH DAILY FOR INSOMNIA active Not Available Not Available No t Available methylpredni solone 4 mg tablets in a dose pack active Not Available Not Available No t Available dextroamphet amine-amphet amine ER 30 mg 24hr capsule,exte nd release TAKE 1 CAPSULE BY MOUTH DAILY active Not Available Not Available Not Available Percocet 5 mg-325 mg tablet Take 1 tablet every 6 hours by oral route as needed for 5 days. 2018 active Not Available Not Available Not Avai lable ondansetron 4 mg disintegrati ng tablet active Not Available Not Available No t Available topiramate 100 mg tablet TAKE 1 TABLET BY MOUTH EVERY DAY active Not Available Not Available No t Available fluticasone propionate 50 mcg/actuatio n nasal spray,suspen fahad active Not Available Not Available Not Available amitriptylin e 100 mg tablet active Not Available Not Available Not Available colestipol 1 gram tablet active Not Available Not Available Not Available amoxicillin 875 mg-potassium clavulanate 125 mg tablet active Not Available Not Available Not Available oxycodone 5 mg tablet TAKE 1 TABLET BY MOUTH EVERY SIX HOURS IF NEEDED FOR SEVERE PAIN FOR UP TO 5 DAYS MAX DAILY AMOUNT 20MG active Not Available Not Available Not Available modafinil 100 mg tablet TAKE 1 TABLET BY MOUTH DAILY FOR EXCESSIVE SLEEPINESS active Not Available Not Available N ot Available hydroxyzine pamoate 25 mg capsule TAKE 1 TO 2 CAPSULES BY MOUTH EVERY 8 HOURS active Not Available Not Available No t Available sumatriptan 6 mg/0.5 mL subcutaneous pen injector INJECT 0.5 ML SUBCUTANEOU S NEEDED active Not Available Not Available Not Available dextroamphet amine-amphet amine ER 15 mg 24hr capsule,exte nd release TAKE 1 CAPSULE BY MOUTH DAILY active Not Available Not Available Not Available methotrexate sodium (PF) 25 mg/mL injection solution INJECT 1ML SUBCUTANEOU S ONCE A WEEK active Not Available Not Available No t Available nitrofuranto in monohydrate/ macrocrystal s 100 mg capsule TAKE 1 CAPSULE BY MOUTH 2 TIMES DAILY UNTIL ALL TAKEN active Not Available Not Available No t Available duloxetine 20 mg capsule,guilherme yed release active Not Available Not Available Not Available duloxetine 30 mg capsule,guilherme yed release active Not Available Not Available Not Available quetiapine 50 mg tablet active Not Available Not Available Not Available Effer-K 20 mEq effervescent tablet active Not Available Not Available Not Available tranexamic acid 650 mg tablet TAKE 1 TABLET BY MOUTH DAILY FOR VITILIGO active Not Available Not Available No t Available potassium chloride ER 20 mEq tablet,exten ded release active Not Available Not Available Not Available Belsomra 5 mg tablet active Not Available Not Available No t Available Belsomra 10 mg tablet active Not Available Not Available No t Available Emgality Pen 120 mg/mL subcutaneous pen injector active Not Available Not Available Not Available ID NOW COVID-19 Test Kit TEST DIRECTED TODAY active Not Available Not Available No t Available Ozempic 1 mg/dose (4 mg/3 mL) subcutaneous pen injector active Not Available Not Available Not Available BinaxNOW COVID-19 Ag Self Test kit TEST DIRECTED TODAY active Not Available Not Available No t Available Ozempic 2 mg/dose (8 mg/3 mL) subcutaneous pen injector INJECT 2MG SUBCUTANEOU S EVERY WEEK active Not Available Not Available No t Available Ozempic 0.25 mg or 0.5 mg (2 mg/3 mL) subcutaneous pen injector active Not Available Not Available Not Available Vitals Date Recorded Body height Body mass index (BMI) Body weight Heart rate Oxygen saturation Oxygen saturation in Arterial blood by Pulse oximetry Systolic blood pressure Diastolic blood pressure Provider Name and Address Organization Details Last Updated DateTime 9 160.02 cm 22.3 kg/m2 07002.6 4 g 79 /min 98 % 98 % 134 mm[Hg] 98 mm[Hg] Monae Ross [facility] 9 13:22:11 Date Recorded Body height Body mass index (BMI) Body weight Body temperature Oxygen saturation Oxygen saturation in Arterial blood by Pulse oximetry Heart rate Systolic blood pressure Diastolic blood pressure Provider Name and Address Organization Details Last Updated DateTime 3 160.02 cm 28.3 kg/m2 21402.9 8 g 96.4 [degF] 98 % 98 % 93 /min 96 mm[Hg] 66 mm[Hg] Ysabel Orr [facility] 3 14:28:47 Date Recorded Body height Body mass index (BMI) Body weight Heart rate Oxygen saturation Oxygen saturation in Arterial blood by Pulse oximetry Systolic blood pressure Diastolic blood pressure Provider Name and Address Organization Details Last Updated DateTime 9 160.02 cm 23.5 kg/m2 02469.9 9 g 84 /min 98 % 98 % 112 mm[Hg] 78 mm[Hg] Sharla Malloy [facility] 9 16:40:38 Date Recorded Body height Body mass index (BMI) Body weight Heart rate Oxygen saturation Oxygen saturation in Arterial blood by Pulse oximetry Systolic blood pressure Diastolic blood pressure Provider Name and Address Organization Details Last Updated DateTime 9 160.02 cm 23.3 kg/m2 39174.4 g 89 /min 99 % 99 % 108 mm[Hg] 62 mm[Hg] Sharla Wheatleyrera [facility] 9 12:52:41 Date Recorded Body height Body mass index (BMI) Body weight Heart rate Oxygen saturation Oxygen saturation in Arterial blood by Pulse oximetry Systolic blood pressure Diastolic blood pressure Provider Name and Address Organization Details Last Updated DateTime 0 160.02 cm 30 kg/m2 96824.9 1 g 110 /min 96 % 96 % 163 mm[Hg] 93 mm[Hg] Monae Ross [facility] 0 13:37:05 Social History Question Answer Notes LastModified by [employer] ion Details LastModified Time Tobacco Smoking Status Never Smoker Monae Ross [facility] 05/01/2018 13:06:39 What Was The Date Of Your Most Recent Tobacco Screening? 09/15/2018 Information n ot available 11/24/2018 How Much Tobacco Do You Smoke? No Information not available 05/01/2018 How Many Years Have You Smoked Tobacco? 0 Information not available 05/01/2018 Sex: Unknown Functional Status None recorded. Mental Status None recorded. Family History Relationship Description Onset Age of this Age Resolved Age Notes LastModified by Organization Details LastModified Time Father No current problems or disability [email or web address] Not available 05/01 13:06:33 Mother No current problems or disability [email or web address] Not available 05/01 13:06:33 Medical History Condition Response Other N Gout N Thyroid Disease N Kidney Stones N Anxiety Y Positive TB test N Head Trauma/Injury Y Sexually Transmitted Disease N Depression Y COPD N Alzheimers N Anemia N Heart Disease/Heart Problem Y Headaches/Migraines Y Deep Vein Thrombosis N Diabetes N Autoimmune disease Y Obesity N Bleeding Disorder N Arthritis Y Seizures/Epilepsy N BPH/Prostate Disorder N Tuberculosis N Insomnia Y Cancer N Stroke N Diverticulitis Y Asthma N Coronary Artery/Heart Disease Y GERD Y Sleep Apnea N High Cholesterol N Liver Disease N Bronchitis N Pulmonary Embolism N Hypertension Y Kidney Disease N Gynecological HistoryNo gynecological history recorded. Obstetrics History GPAL:G 0 P 0 0 0 0 Immunizations Vaccine Type Date Status Note Provider Nam e and Address Organization Details Recorded Time influenza, unspecified formulation 2017 completed Monae larson [facility] 05/01/2018 13:05:41 Past Encounters Encounter ID Performer Location Encounter Start Date Encounter Closed Date Diagnosis/Indication Diagnosis SNOMED-CT Code Diagnosis ICD10 Code Diagnosis Note [id number] Dio SHIRLEY, Temo [facility] [address] [place] [address] 05/01/2018 12:14:06 05/01/2018 15:46:39 Body mass index 20-24 - normal 595462847 Z68.24 Chronic depression 31939 0009 F34.1 History of laparoscopic adjustable gastric banding 703136223 Z98.84 [id number] Dio SHIRLEY, Temo [facility] [address] [place] [address] 05/30/2018 18:58:58 06/15/2018 16:37:21 Chronic depression 968932803 F34.1 Hypertensive disorder 38 234586 I10 Body mass index 20-24 - normal 921335516 Z68.24 History of laparoscopic adjustable gastric banding 351486235 Z98.84 Adjusted - 0.5 removed [id number] Dio SHIRLEY, Temo [facility] [address] [place] [address] 09/15/2018 13:10:47 09/15/2018 17:26:54 Chronic depression 713861699 F34.1 Hypertensive disorder 38 370917 I10 Body mass index 20-24 - normal 203893604 Z68.24 History of laparoscopic adjustable gastric banding 657845731 Z98.84 Adjusted - 0.5 removed [id number] Dio SHIRLEY, Temo [facility] [address] [place] [address] 01/17/2019 16:22:48 01/27/2019 19:33:52 Chronic depression 000860121 F34.1 Hypertensive disorder 38 777612 I10 History of laparoscopic adjustable gastric banding 695713512 Z98.84 Adjusted - 0.5 removed Body mass index 20-24 - normal 760059626 Z68.24 Ugly scar 02990510 L90.5 excised in office [id number] Dio SHIRLEY, Temo [facility] [address] [place] [address] 01/22/2019 12:16:26 01/27/2019 19:47:29 Chronic depression 285952392 F34.1 Hypertensive disorder 38 601543 I10 Body mass index 20-24 - normal 949900347 Z68.24 Postoperative visit 1836 59945 Z09 s/p excision disfigured scar healing well [id number] Dio SHIRLEY, Temo [facility] [address] [place] [address] 02/25/2020 12:35:58 02/27/2020 10:51:17 Pharyngeal dysphagia 7911515859 9105 R13.13 secondary to a likely stricture from where the band was causing. [id number] Dio SHIRLEY, Temo [facility] [address] [place] [address] 10/06/2022 14:09:54 10/12/2022 13:23:46 Overweight 503646357 E66.3 Z68.29 BMI 28.3 Hiatal her anjelica with gastroesophageal reflux 490189547 K21.00 Severe GERD with grade B esophagiti s, moderate size hiatal hernia, esophageal dysmotilit y - will need a robotic assisted Toupet fundoplica tion. Health Concerns Section Related Observation LastModified by Organization Detai ls LastModified Time None Recorded Concern Status LastModified by Organization Details LastModified Time None Recorded Advance Directives Directive None Recorded Payers Insurance Date Sequence Insurance Name Policy Number Policy Elena Covered Member ID Elena Member ID Guarantor Name 01/15/2023 1 [facility] Yony Lilly [id number] Stiven Diaz Notes Date Note Type Note Provider Name and Address Organization Details Recorded Time 09/15/2018 text/html The patient is s /p lap band placement in 2006. She notes good appetite control, good restriction, denies dysphagia, denies heartburn and denies vomiting. The patient is in the green zone. No adjustment is needed. She is complaining of left sided LLQ itchiness but underneath the skin. No seroma or abscess noted. partially relieved with Benadryl. Weight is 126 lbs which is 1 lbs down from last visit 4 months ago. Pre-surgery weight was 211 lbs. Temo Wharton MD,[facility] [address], [place], [address], [facility] 09/15/2018 13:53:35 01/17/2019 text/html Patient complain ing of painful disfigured scar. Here for excision of skin. Temo Wharton MD,[facility] [address], [place], [address], [facility] 01/17/2019 20:55:20 01/22/2019 text/html The patient is status post excision of disfigured scar in office on 01-17-19. The patient had an uncomplicated operation and an uneventful post-operative course. The patient was discharged on the post-operative day and is now 5 days out. The patient notes minimal pain, denies fever or chills, nausea or vomiting, and is tolerating reg diet well and toileting well. Temo Wharton MD,[facility] [address], [place], [address], [facility] 01/22/2019 13:16:35 02/25/2020 text/html The patient had her band removed emergently in [place] in 2018 and she is complaining of burning pain of her throat and weight regain. 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 She has been having these symptoms since the band was removed. She brings in a CD of a recent UGI showing a mild dilatation of the distal esophagus. Her weight i s 169 from 129. Sheis on Prevacid 30 mg daily and sometimmes twice daily with partial relief and tums. Temo Wharton MD,[facility] [address], [place], [address], [facility] 02/25/2020 14:40:03 10/06/2022 text/html The patient had a lap band removed in 2019 in [place] during emergency surgery. She is having throat burning and regurgiation. She takes Pantoprazole and famotidine with significant relief. She takes carafate for grade B-C esophagitis and she has a hiatal hernia. She had a workup at [facility] last [facility]. EGD showed medium size hiatal hernia with grade B esophagitis, manometry showed decreased peristalsis with DCI 500 and 30% incomplete clearance (notes occasional dysphagia). 24 hour pH study showed DeMeester score 28. She is on ozempic. Dio SHIRLEY, Temo [address], [place], [address], [facility] 10/06/2022 15:24:02 OBGyn Episode No OBEpisode recorded.
--- OUTSIDE RECORDS SUMMARY | 2024-10-18 16:56 | XMS_ITS | Clinical Summary ---
Author Organization [facility] Address [address] [place] [address] Care Team Providers Care Occupational Hygienist Name Role Phone Katerina Contreras Unavailable Rohan [...] nasal solution (FLONASE)Indica tions:Sinus pressure Inhale 1 [place] into both nostrils once daily. 1 Bottle [...] dise ase (HC). Has seen Rheumatology at [place]. 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 Lesion of pituitary [...] gastric banding 11/11/2014 Internal hemorrhoids 11/11/2014 Immunizations Immunization Administration Dates Next Due Influenza [...] C screening for ag e 18-79 12/30/1989 Hepatitis B series for 19+ ( 1 of 3 - 19+ 3-dose series) 12/30/1990 Lipids for age 45-75 12/30/2016 Depression screening [...] 08/15/2023 , 08/14/2020, 01/14/2015 (Completed outside of [facility]) COVID-19 vaccine series ( season) 2024 11/13/2021, 08/06/2021, 05/15/2020, Additional history exists Tetanus booster 07/11/2024 07/11/2014, 07/11/2014 Colonoscopy through age 75 11/11/2024 11/11/2014 Influenza Vaccine (Season Ended) 2024 01/30/2017, 02/09/2016, 02/09/2016, Additional history exists Tdap Completed 07/11/2014, 07/11/2014 Procedures Procedure Name Priority Date/Time Associated Diagnosis Comments WEATHERSTRIP MACHINE OPERATOR THIN PREP PAP SCREEN IMAGED Routine 08/14/2020 12:00 PM CDT SCAN-MAMMOGRAPHY REPORT 08/11/2017 12:00 AM CDT from Last 3 Months or Most Recently Relevant to Health Maintenance Results * WEATHERSTRIP MACHINE OPERATOR THIN PREP PAP SCREEN IMAGED (08/14/2020 12:00 PM CDT) Case Report Gynecologic Cytology Report Case: [id number] Authorizing Provider: Kelly Alba Collected: 08/14/2020 1200 MMD Ordering Location: [facility] Received: 08/15/2020 0925 First Screen: Larry Verma Specimen: WEATHERSTRIP MACHINE OPERATOR ThinPrep Vial Screening, Cervical/Vaginal 08/22/2020 2:38 PM CDT [facility] INTERPRETATION/ RESULT NEGATIVE FOR INTRAEPITHELIAL LESION OR MALIGNANCY (NIL) (none) 08/22/2020 2:38 PM CDT [facility] EN[facility] at 1438 CDT SPECIMEN ADEQUACY Satisfactory for evaluation Endocervical component present 08/22/2020 2:38 PM CDT [facility] HPV REQUEST HPV and PAP 08/22/2020 2:38 PM CDT [facility] Date of LMP 08/07/2020 08/22/2020 2:38 PM CDT [facility] Last Pap Date 02/02/2013 08/22/2020 2:38 PM CDT [facility] Last Pap Result NIL 2:38 PM CDT [facility] Additional Information 08/22/2020 2:38 PM CDT [facility] Comment: Interpreted at [facility] - [address], [place] [address] Automated Review Successful 08/22/2020 2:38 PM CDT [facility] Comment:Specimen processed s uccessfully by automated athletic shoe designer device, ThinPrep Imaging System, [employer] ANCILLARY TESTING WEATHERSTRIP MACHINE OPERATOR HPV Ordered, Please see separate report 08/22/2020 [...] us Kelly Alba MD PATHOLOGY/CYTOLOGY Final Result [facility] [address] [place] [address], [place] * SCAN-MAMMOGRAPHY REPORT (08/11/2017 12:00 AM CDT) Anatomical Region Laterality Modality Other us Scanner OTHER Final Result from Last 3 Months or Most Recently Relevant to Health Maintenance Insurance [place] Care Teams Occupational Hygienist Relationship Specialty Start Date End Date Pcp, No . PCP - General 02/28/19 Katerina Contreras Quarryman 07/21/16
--- OUTSIDE RECORDS SUMMARY | 2024-10-19 00:32 | XMS_ITS | Clinical Summary ---
Author Organization [facility] Address [address] [place] [address] Care Team Providers Care Balance Truer Name Role Phone Taran Rivas MD Primary Care Provider Temo Wharton MD Unavailable [phone] Allergies Active Allergy Reactions Criticality Noted Date [...] Active fluticasone (FLONASE) 50 MCG/ACT nasal spray [place] 1 spray into both nostrils every 12 [...] Description 5 12:37 AM CDT Anesthesia Event [facility] [place] [address] Aly Bain MD 5 2:06 PM CDT Anesthesia Event [facility] [address] [place] [address] Aly Bain MD Klein, Kathryn Lee, APRN CRNA 5 1:30 PM CDT - 5 2:10 PM CDT Surgery [facility] [address] [place] [phone] Rogelio Morse MD ESOPHAGOGASTRODUODENOSCOPY WITH BOTULINUM TOXIN 100 UNITS 5 1:08 PM CDT - 5 3:51 PM CDT Hospital Encounter [facility]/Phase II [address] [place] [phone] Rogelio Morse MD Discharge Disposition: Home or Self Care 5 Medical Correspondence [address] [address] Scan, Non-Provider 5 Travel 5 Travel from [...] on file 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 Gender Identity Not on file Sexual Orientation [...] Heartburn Special Needs 100 units botoxPrior auth #[id number] UPPER GI ENDOSCOPY Routine 08/23/2024 1: 24 PM CDT from Last 3 Months Results * ANE AIRWAY ETT PERFORMABLE (08/23/2024 2:16 PM CDT) Narrative Noelle Burnett APRN DATA CENTER ARCHITECT - 08/23/2024 2:16 PM CDT Noelle Burnett APRN DATA CENTER ARCHITECT 08/23/2024 2:30 PM Airway Patient location during procedure: OR Procedure Start/Stop Times: 08/23/2024 2:16 PM Staff - DATA CENTER ARCHITECT: Noelle Burnett APRN CRNA Performed By: CRNAIndications [...] 08/23/2024 2:16 PM us Aly Bain MD [place] ANESTHESIA Final Result * UPPER GI ENDOSCOPY (08/23/2024 1:24 PM CDT) [facility] Upper GI Endoscopy [address] [address] ___ Patient Name: Waleska Diaz Procedure Date: [...] physician, the nurse, the anesthesiologist and the milk route supervisor. The procedure was verified in the pre-procedure [...] RADIOLOGY RESULTS from Last 3 Months Insurance [facility] OUT OF STATE BCBS OUT OF STATE Care Teams Balance Truer Relationship Specialty Start Date End Date Taran Rivas MD [facility] [address] [place] [address] PCP - General Emergency Medicine 08/23/24 Temo Wharton MD [address] [facility] [address] [place] [address] Bariatric 08/23/24
--- OUTSIDE RECORDS SUMMARY | 2024-10-19 00:32 | XMS_ITS | Clinical Summary ---
Author Organization [facility] Address [address] [place] [address] Care Team Providers Care Meat Process Worker Name Role Phone Unavailable Primary Care Provider [...] for each transition of care or referral. [facility] All[facility] Active Allergy Reactions Criticality Noted Date [...] patient's age to complete this topic Insurance [facility] OUT OF STATE
--- OUTSIDE RECORDS SUMMARY | 2024-10-19 00:33 | XMS_ITS | Clinical Summary ---
Author Organization [facility] [facility] Address [address] [place] [address] Care Team Providers Care Messenger Copy Name Role Phone Katerina Contreras Unavailable Rohan [...] nasal solution (FLONASE)Indica tions:Sinus pressure Inhale 1 [place] into both nostrils once daily. 1 Bottle [...] dise ase (HC). Has seen Rheumatology at [place]. 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 stable. last noted on MRI 2013 in [place] 08/23/2016 Attention deficit hyperactiv ity disorder (ADHD), [...] 08/15/2023 , 08/14/2020, 01/14/2015 (Completed outside of [facility]) COVID-19 vaccine series ( season) 2024 11/13/2021, 08/06/2021, 05/15/2020, Additional history exists Tetanus booster 07/11/2024 07/11/2014, 07/11/2014 Colonoscopy through age 75 11/11/2024 11/11/2014 Influenza Vaccine (Season Ended) 2024 01/30/2017, 02/09/2016, 02/09/2016, Additional history exists Tdap Completed 07/11/2014, 07/11/2014 Procedures Procedure Name Priority Date/Time Associated Diagnosis Comments SUPPLY CHAIN DIRECTOR THIN PREP PAP SCREEN IMAGED Routine 08/14/2020 12:00 PM CDT SCAN-MAMMOGRAPHY REPORT 08/11/2017 12:00 AM CDT from Last 3 Months or Most Recently Relevant to Health Maintenance Results * SUPPLY CHAIN DIRECTOR THIN PREP PAP SCREEN IMAGED (08/14/2020 12:00 PM CDT) Case Report Gynecologic Cytology Report Case: [id number] Authorizing Provider: Kelly Alba Collected: 08/14/2020 1200 MMD Ordering Location: [facility] Received: 08/15/2020 0925 First Screen: Larry Verma Specimen: SUPPLY CHAIN DIRECTOR ThinPrep Vial Screening, Cervical/Vaginal 08/22/2020 2:38 PM CDT [facility] INTERPRETATION/ RESULT NEGATIVE FOR INTRAEPITHELIAL LESION OR MALIGNANCY (NIL) (none) 08/22/2020 2:38 PM CDT [facility] ENTRAL LABORATORY at 1438 CDT SPECIMEN ADEQUACY Satisfactory for evaluation Endocervical component present 08/22/2020 2:38 PM CDT [employer] ENTRAL LABORATORY HPV REQUEST HPV and PAP 08/22/2020 2:38 PM CDT [facility] Date of LMP 08/07/2020 08/22/2020 2:38 PM CDT [facility] Last Pap Date 02/02/2013 08/22/2020 2:38 PM CDT [facility] Last Pap Result NIL 2:38 PM CDT [facility] Additional Information 08/22/2020 2:38 PM CDT [facility] Comment: Interpreted at [facility] - [address], [place] [address] Automated Review Successful 08/22/2020 2:[address] [facility] Comment:Specimen processed s uccessfully by automated paintings restorer device, ThinPrep Imaging System, [employer] ANCILLARY TESTING SUPPLY CHAIN DIRECTOR HPV Ordered, Please see separate report 08/22/2020 2:38 PM CDT [facility] Note The pap test is [...] and malignant lesions. 08/22/2020 2:38 PM CDT [facility] Other (Cervical/Vagina l) 08/14/2020 12:00 PM CDT 08/15/2020 9:25 AM CDT us Kelly Alba MD PATHOLOGY/CYTOLOGY Final Result [facility] [address] [place] [address], [place] * SCAN-MAMMOGRAPHY REPORT (08/11/2017 12:00 AM CDT) Anatomical Region Laterality Modality Other us Scanner OTHER Final Result from Last 3 Months or Most Recently Relevant to Health Maintenance Insurance [place] Care Teams Messenger Copy Relationship Specialty Start Date End Date Pcp, No . PCP - General 02/28/19 Katerina Contreras Fashion Illustrator 07/21/16
== END 2024-10-18 15:28 | disposition home or self-care (01) ==
LOC: CT 15:27
PROVIDERS: PCP Internal Medicine; Visit Provider Otolaryngology
DX: J32.9 Chronic sinusitis, unspecified (principal); J32.0 Chronic maxillary sinusitis; J34.2 Deviated nasal septum
CPT/HCPCS: 70486

== ENCOUNTER 2024-10-22 16:30 | Outpatient (RCR) | payer BC, SELFPAY | END 2025-02-19 23:59 | disposition home or self-care (01) | PROVIDERS: PCP Internal Medicine; Visit Provider Internal Medicine | DX: M62.89 Other specified disorders of muscle (principal); R15.0 Incomplete defecation; R10.20 Pelvic and perineal pain unspecified side; N94.2 Vaginismus; M54.50 Low back pain, unspecified; M25.552 Pain in left hip; M25.551 Pain in right hip; Z51.89 Encounter for other specified aftercare | CPT/HCPCS: 97110; 97112; 97162; 97535 ==

== ENCOUNTER 2024-10-30 18:14 | Outpatient (CLI) | payer BC, SELFPAY | END 2024-10-30 18:15 | disposition home or self-care (01) | LOC: NFLDREF 11-02 13:47 | PROVIDERS: PCP Internal Medicine; Referring Provider Internal Medicine | DX: N30.00 Acute cystitis without hematuria (principal); B96.20 Unspecified Escherichia coli [E. coli] as the cause of diseases classified elsewhere | CPT/HCPCS: 87086 ==

== ENCOUNTER 2024-12-02 15:32 | Emergency (ER) | payer BC, SELFPAY ==
--- OUTSIDE RECORDS SUMMARY | 2024-12-02 15:35 | XMS_ITS | Clinical Summary ---
Author Organization [facility] Address [address] [place] [address] Care Team Providers Care Automobile Mechanic Radiator Name Role Phone Taran Rivas MD Primary Care Provider Temo Whatron MD Unavailable [phone] Allergies Active Allergy Reactions Criticality Noted Date [...] Active fluticasone (FLONASE) 50 MCG/ACT nasal spray [place] 1 spray into both nostrils every 12 [...] mouth daily. 200-400mg alternates q hs 07/26/19 Active ketorolac (TORADOL) 10 MG tablet Take [...] daily. 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 Gender Identity Not on file Sexual Orientation [...] exists PHQ-2 (once per calendar year) 2024 INFLUENZA VACCINE (#1) 2024 , 03/02/2023, 01/31/2022, Additional history exists DTAP/TDAP/TD VACCINE (3 - Td or Tdap) 02/23/2034 02/24/2024, 07/11/2014 HEPATITIS B VACCINE Completed 02/21/2019, ZOSTER VACCINE Completed 06/17/2023, 12/29/2022 HPV VACCINE (No Doses Required) Completed MENINGITIS VACCINE Aged Out No longer eligible based on patient's age to complete this topic Insurance BCBS OUT OF STATE BCBS OUT OF STATE Care Teams Automobile Mechanic Radiator Relationship Specialty Start Date End Date Taran Rivas MD [facility] [address] [place] [address] PCP - General Emergency Medicine 08/23/24 Temo Wharton MD [address] [address] [facility] 08/23/24
--- OUTSIDE RECORDS SUMMARY | 2024-12-02 15:35 | XMS_ITS | Clinical Summary ---
Author Organization [facility] Address [address] [place] [address] Care Team Providers Care Assembler Insulator Name Role Phone Unavailable Primary Care Provider [...] for each transition of care or referral. [facility] Allergies Active Allergy Reactions Criticality Noted Date [...] place in vagina nightly. 42.5 g 3 3 Active Active Problems Problem Noted Date [...] 08/06/2021, 12/24/2020, Additional history exists Influenza Vaccine (#1) 2024 2, 03/25/2021, 01/28/2020, Additional history exists DTaP/Tdap/Td Vaccine [...] patient's age to complete this topic Insurance [facility] OUT OF STATE
--- OUTSIDE RECORDS SUMMARY | 2024-12-02 15:35 | XMS_ITS | Clinical Summary ---
Author Organization [facility] Address [address] [place] [address] Care Team Providers Care Weigh And Charge Worker Name Role Phone Katerina Contreras Unavailable Rohan [...] nasal solution (FLONASE)Indica tions:Sinus pressure Inhale 1 [place] into both nostrils once daily. 1 Bottle [...] dise ase (HC). Has seen Rheumatology at [place]. 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 Lesion of pituitary [...] 08/15/2023 , 08/14/2020, 01/14/2015 (Completed outside of [facility]) COVID-19 vaccine series ( - 2023- season) 2024 11/13/2021, 08/06/2021, 05/15/2020, Additional history exists Tetanus booster 07/11/2024 07/11/2014, 07/11/2014 Colonoscopy through age 76 11/11/2024 11/11/2014 Influenza Vaccine (#1) 2024 7, 02/09/2016, 02/09/2016, Additional history exists Procedures Procedure Name Priority Date/Time Associated Diagnosis Comments MAGNETO ELECTRICIAN THIN PREP PAP SCREEN IMAGED Routine 08/14/2020 12:00 PM CDT SCAN-MAMMOGRAPHY REPORT 08/11/2017 12:00 AM CDT from Last 3 Months or Most Recently Relevant to Health Maintenance Results * MAGNETO ELECTRICIAN THIN PREP PAP SCREEN IMAGED (08/14/2020 12:00 PM CDT) Case Report Gynecologic Cytology Report Case: [id number] Authorizing Provider: Kelly Alba Collected: 08/14/2020 1200 MD Susy Ordering Location: [facility] Received: 08/15/2020 0925 First Screen: Larry Verma Specimen: MAGNETO ELECTRICIAN ThinPrep Vial Screening, Cervical/Vaginal 08/22/2020 2:38 PM CDT [facility] INTERPRETATION/ RESULT NEGATIVE FOR INTRAEPITHELIAL LESION OR MALIGNANCY (NIL) (none) 08/22/2020 2:38 PM CDT [facility] EN[facility] LABOR[facility] at 1438 CDT SPECIMEN ADEQUACY Satisfactory for evaluation Endocervical component present 08/22/2020 2:38 PM CDT [facility] HPV REQUEST HPV and PAP 08/22/2020 2:38 PM CDT [facility] Date of LMP 08/07/2020 08/22/2020 2:38 PM CDT [facility] Last Pap Date 02/02/2013 08/22/2020 2:38 PM CDT [facility] Last Pap Result NIL 2:38 PM CDT [facility] Additional Information 08/22/2020 2:38 PM CDT [facility] Comment: Interpreted at [facility] - [address], [place] [address] Automated Review Successful 08/22/2020 2:38 PM CDT [facility] Comment:Specimen processed s uccessfully by automated crucible packer device, Activity RocketPrep Imaging System, [employer] ANCILLARY TESTING MAGNETO ELECTRICIAN HPV Ordered, Please see separate report 08/22/2020 2:38 PM CDT [facility] Note The pap test is a [...] and malignant lesions. 08/22/2020 2:38 PM CDT [facility] Other (Cervical/Vagina l) 08/14/2020 12:00 PM CDT 08/15/2020 9:25 AM CDT us Kelly Alba MD PATHOLOGY/CYTOLOGY Final Result [facility] [address] [place] [address], [place] * SCAN-MAMMOGRAPHY REPORT (08/11/2017 12:00 AM CDT) Anatomical Region Laterality Modality Other us Scanner OTHER Final Result from Last 3 Months or Most Recently Relevant to Health Maintenance Insurance [employer] [place] Care Teams Weigh And Charge Worker Relationship Specialty Start Date End Date Pcp, No . PCP - General 02/28/19 Katerina Contreras Research Nurse 07/21/16
[2024-12-02 16:17] VITALS: BP 109/77; PULSE 96; RESP 16; TEMP 36.4; O2SAT 98; BMI 24.3
--- NOTE | 2024-12-02 17:17 | ED.ABDPAIN ---
HPI - Abdominal Pain General Time Seen by Provider: 17:17 Date Seen: 12/02/24 Chief Complaint: Abdominal Pain Stated Complaint: Potential abdominal surgery complication Time Seen by Provider: 12/02/24 17:17 Source: patient and RN notes reviewed Mode of arrival: ambulatory Limitations: no limitations History of Present Illness HPI narrative: Waleska is a 53-year-old female coming in with complaint of abdominal discomfort, bilateral flank pain, diarrhea. She states her migraine headache is starting to come on. She has also been feeling fatigued in chilled since yesterday. At the beginning of October she had G-POEM procedure for gastroparesis. She states that her stomach contents were building up to the point that she would get dumping syndrome and get diarrhea. She states they plan to do a gastric emptying study at the end of November to make sure this is working. This procedure is a gastric perioral endoscopic myotomy where the pyloric sphincter muscle is cut to help move food through. 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 She is starting to feel some urinary symptoms, wonders if she is developing UTI. She states her migraine headache is starting, wondering if she can have some medicine for this. We discussed Toradol which she readily wanted. She has had significant abdominal surgery with gastric banding, umbilical hernia repair, removal of the laparoscopic banding device in 2019, cholecystectomy, abdominal plasty. She states she still has her appendix. No respiratory symptoms but she feels pain in both flank areas when she does breathe. She has had a history of C difficile colitis as well. She takes methotrexate and hydroxychloroquine for autoimmune disease. Related Data Home Medications ?Medication ?Instructions ?Recorded ?Confirmed methotrexate sodium (PF) 25 mg/mL 50 mg IM QWEEK 11/25/21 11/18/24 injection solution pantoprazole 40 mg tablet,delayed 40 mg PO BID 11/25/21 11/18/24 release hydroxychloroquine 200 mg tablet 200 - 400 mg PO .UD 07/26/22 12/02/24 levonorgestrel (Mirena) 1 device intrauterine ONCE 07/26/22 11/18/24 sulfasalazine 500 mg tablet 1 g PO DAILY 08/01/23 11/18/24 famotidine 40 mg tablet 40 mg PO HS 11/07/23 12/02/24 cetirizine 5 mg-pseudoephedrine ER 1 tab PO BID PRN 03/23/24 11/18/24 120 mg tablet,extended release,12hr (Zyrtec-D) folic acid 1 mg tablet 3 mg PO DAILY 03/23/24 12/02/24 pyridostigmine bromide 60 mg/5 mL 60 mg PO TID 10/02/24 12/02/24 oral syrup colestipol 1 gram tablet 1 g PO BID 12/02/24 12/02/24 methotrexate sodium 25 mg/mL mg 12/02/24 injection solution sulfasalazine 500 mg 1,500 mg PO DAILY 12/02/24 12/02/24 tablet,delayed release Previous Rx's ?Medication ?Instructions ?Recorded rabeprazole 20 mg tablet,delayed 20 mg PO BID #60 tabs 10/18/23 release amlodipine 2.5 mg tablet 2.5 mg PO DAILY #90 tabs 05/01/24 fluticasone propionate 50 1 spray intranasal Q12H #16 grams 05/03/24 mcg/actuation nasal spray,suspension (Flonase Allergy Relief) dicyclomine 10 mg capsule 10 mg PO QID PRN abdominal pain 05/24/24 #60 caps ketorolac 10 mg tablet 10 mg PO Q8H PRN pain #30 tabs 06/26/24 sumatriptan succinate 6 mg/0.5 mL 6 mg (0.5 mL) subcut .As Needed as 08/08/24 subcutaneous pen injector needed PRN migraine headache #1 mL galcanezumab-gnlm 120 mg/mL 120 mg subcut ONCE #1 mL 09/05/24 subcutaneous pen injector (Emgality Pen) tranexamic acid 650 mg tablet 650 mg PO DAILY Vitiligo #60 tabs 09/26/24 phenazopyridine 200 mg tablet 200 mg PO TID #9 tabs 10/17/24 (Pyridium) semaglutide (weight loss) 1.7 1.7 mg (0.75 mL) subcut QWEEK #3 mL 10/22/24 mg/0.75 mL subcutaneous pen injector (Wegovy) alprazolam 2 mg tablet 4 mg (2 x 2 mg) PO QHS anxiety #60 11/24/24 tabs dextroamphetamine-amphetamine ER 15 mg PO DAILY #30 caps 11/24/24 15 mg 24hr capsule,extend release dextroamphetamine-amphetamine ER 30 mg PO DAILY #30 caps 11/24/24 30 mg 24hr capsule,extend release zkiwxdibuu-lophwcaqryvae-wlamvnbt 1 tab PO Q4-6H PRN pain #60 tabs 11/27/24 50 mg-325 mg-40 mg tablet phentermine 37.5 mg tablet 37.5 mg PO QDAY #30 tabs 11/27/24 Allergies Allergy/AdvReac Type Severity Reaction Status Date / Time iodine Allergy Intermediate Fainting, Verified 11/18/24 13:04 sob hydrocodone Allergy Mild Itching Verified 11/18/24 13:04 adhesive Allergy Unknown Rash Verified 11/18/24 13:04 pecan nut Allergy Verified 11/18/24 13:04 antibiotics Allergy Uncoded 11/18/24 13:04 Review of Systems Status of ROS Reports: 6 or more systems reviewed and unremarkable except as noted in History and below [facility] Medical History Cough ?R05.9 - Cough, unspecified (ICD-10) C. difficile colitis ?A04.72 - Enterocolitis due to Clostridium difficile, not specified as recurrent (ICD-10) Pelvic floor dysfunction ?M62.89 - Other specified disorders of muscle (ICD-10) Exposure to blood ?Z77.21 - Contact with and (suspected) exposure to potentially hazardous body fluids (ICD-10) Needle stick injury Hypertension ?I10 - Essential (primary) hypertension (ICD-10) Sinusitis ?J32.9 - Chronic sinusitis, unspecified (ICD-10) UTI (urinary tract infection) ?N39.0 - Urinary tract infection, site not specified (ICD-10) Knee injury ?S89.90XA - Unspecified injury of unspecified lower leg, initial encounter (ICD-10) Complication of gastric band procedure (09/27/18) ?K95.09 - Other complications of gastric band procedure (ICD-10) Autoimmune disease ?M35.9 - Systemic involvement of connective tissue, unspecified (ICD-10) Surgical History Status post gastric banding ?Z98.84 - Bariatric surgery status (ICD-10) History of umbilical hernia repair ?Z98.890 - Other specified postprocedural states (ICD-10) ?Z87.19 - Personal history of other diseases of the digestive system (ICD-10) History of tonsillectomy ?Z90.89 - Acquired absence of other organs (ICD-10) History of surgery on left wrist ?Z98.890 - Other specified postprocedural states (ICD-10) History of right knee surgery ?Z98.890 - Other specified postprocedural states (ICD-10) History of removal of laparoscopic gastric banding device (09/27/18) ?Z98.84 - Bariatric surgery status (ICD-10) History of reduction mammoplasty ?Z98.890 - Other specified postprocedural states (ICD-10) History of laparoscopic adjustable gastric banding (2006) ?Z98.84 - Bariatric surgery status (ICD-10) History of cholecystectomy ?Z90.49 - Acquired absence of other specified parts of digestive tract (ICD-10) History of abdominoplasty (2018) ?Z98.890 - Other specified postprocedural states (ICD-10) Social History Narrative: 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 Lives in [place] with her . She does not smoke. She does not drink alcohol. She does not have recreational drug use. What is your current living situation?: I presently have a place to live Problems where you live: no known problems Problems where you live details: N/A In the past 12 months, utilities in danger of being shut off: no In past 12 months, lack of transportation kept you from medical appts, meetings, work, or getting things needed for daily living: no In the past 12 mos, have been you worried that your food would run out before you had money to buy more?: never true In the past 12 mos, the food you bought just didn't last and you didn't have money to buy more?: never true Smoking Status: Never smoker Do you use any of these nicotine containing products: None Second hand tobacco smoke exposure: No How often do you have a drink containing alcohol: monthly or less How often do you have six or more drinks on one occasion: Never AUDIT-C Alcohol total score: 1 Non-prescribed substance use: denies use Caffeine: No How often does anyone, including family, friends and others, physically hurt you: never How often does anyone, including family, friends and others, insult or talk down to you: never How often does anyone, including family, friends and others, threaten you with harm: never How often does anyone, including family, friends and others, scream or curse at you: never service: No Exam Const: Vital Signs, click to edit/add: Vital Signs - 24 hr 12/02/24 16:17 12/02/24 17:39 12/02/24 17:41 Temperature 97.6 F Pulse Rate [Pulse Oximeter] 96 79 Respiratory Rate 16 16 Blood Pressure [Ri ght Upper Arm] 109/77 Pulse Oximetry 98 96 96 Oxygen Delivery Me thod Room Air Room Air 12/02/24 18:32 12/02/24 19:16 12/02/24 20:32 Temperature 97.7 F Pulse Rate [Pulse Oximeter] 87 73 Respiratory Rate 16 16 Blood Pressure [Ri ght Upper Arm] 114/83 Pulse Oximetry 97 96 Oxygen Delivery Me thod Room Air Room Air Waleska is seen in exam room for, she is lying in a dark room, easily tolerates the lights on and is very pleasant. She is alert, interactive, seems like she does not feel well. Sclera clear, able speak in complete sentences. Speech is normal. Lungs are clear, good air entry, no wheezing or crackles. CV regular rate and rhythm, no murmur, normal S1-S2, no S3-S4. Abdomen is soft but she complains of tenderness in the suprapubic to the right lower quadrant area. I feel no masses, no rebound or guarding. Skin visualize without rash but she is dark complected. She did ambulate into the ED of her own accord. Documenting provider has reviewed patient's vital signs: yes Course Course ED Course: Will initiate an IV, give her IV fluids, Zofran and Toradol to help with her symptoms. We will start with laboratory evaluation. She has had extensive exposure to radiation with just imaging in our system. I am reluctant to just do another CT of her abdomen and pelvis without definitive need to do so. Will see where her labs are. May be able to do flat and upright to ensure no obstructive or ileus change. If her labs show significant abnormality, may have to do the CT imaging. Reevaluation(s) Time of Reevaluation #1: 18:14 Reevaluation #1: Nursing staff is going to let patient know that we have ordered the CT as her white count is elevated. She still cannot give urinalysis at this time. Time of Reevaluation #2: 19:55 Reevaluation #2: Checked on patient, reviewed labs. Did review her elevated white blood count and elevated C-reactive protein. Her headache is somewhat improved with the Benadryl but still present. We discussed other options. She declined IV ketamine protocol. Did review with her that we certainly could give her another 15 mg IV Toradol to total of 30 mg. She would like to do this. Give her another 500 mL of fluid as well while we await her CT to be done. She did need premedication for her CT with hydrocortisone and Benadryl. Time of Reevaluation #3: 20:54 Reevaluation #3: Did review her CT scan with her, provided a copy. There is no identifiable reason on her CT for her issues. We did discuss there still can be functional issues related to her gastric outlet emptying/gastroparesis. Will have her talk to her GI person tomorrow. She does feel better and stable to discharge to home at this time. Vital Signs Vital signs: Initial Vital Signs Temperature 97.6 F 12/02/24 16:17 Temperature Source Temporal Artery Scan 12/02/24 16:17 Pulse Rate 96 12/02/24 16:17 Respiratory Rate 16 12/02/24 16:17 Blood Pressure 109/77 12/02/24 16:17 Blood Pressure Mean 87 12/02/24 16:17 Blood Pressure Position Sitting 12/02/24 16:17 Pulse Oximetry 98 12/02/24 16:17 Oxygen Delivery Method Room Air 12/02/24 16:17 Vital Signs Temperature 97.6 F 12/02/24 16:17 Pulse Rate 96 12/02/24 16:17 Respiratory Rate 16 12/02/24 16:17 Blood Pressure 109/77 12/02/24 16:17 Pulse Oximetry 98 12/02/24 16:17 Oxygen Delivery Method Room Air 12/02/24 16:17 Temperature 97.7 F 12/02/24 18:32 Pulse Rate 73 12/02/24 20:32 Respiratory Rate 16 12/02/24 20:32 Blood Pressure 114/83 12/02/24 19:16 Pulse Oximetry 96 12/02/24 20:32 Oxygen Delivery Method Room Air 12/02/24 20:32 Medications Administered Medications: Discontinued Medications Generic Name Dose Route Start Last Admin Trade Name Flory PRN Reason Stop Dose Admin Diphenhydramine HCl 50 mg 12/02/24 18:49 12/02/24 19:02 Diphenhydramine 50 Mg/Ml Inj IVP 12/02/24 18:50 50 mg ONCE ONE Administration Hydrocortisone Sodium Succinate 200 mg 12/02/24 18:49 12/02/24 19:06 Hydrocortisone Sod Succinate 50 Mg/Ml Inj IVP 12/02/24 18:50 200 mg ONCE ONE Administration Sodium Chloride 1,000 mls @ 500 mls/hr 12/02/24 17:24 12/02/24 18:32 0.9 % Sodium Chloride 1000 Ml IV 12/02/24 19:23 Infused .Q2H JEREMI Infusion Sodium Chloride 500 mls @ 500 mls/hr 12/02/24 19:56 12/02/24 20:31 0.9 % Sodium Chloride 500 Ml IV 12/02/24 20:55 500 mls/hr .Q1H ONE Administration Ketorolac Tromethamine 15 mg 12/02/24 17:23 12/02/24 17:33 Ketorolac 15 Mg/Ml Inj IVP 12/02/24 17:24 15 mg ONCE ONE Administration Ketorolac Tromethamine 15 mg 12/02/24 19:56 12/02/24 20:31 Ketorolac 15 Mg/Ml Inj IVP 12/02/24 19:57 15 mg ONCE ONE Administration Ondansetron HCl 4 mg 12/02/24 17:23 12/02/24 17:38 Ondansetron 2 Mg/Ml Inj IVP 12/02/24 17:24 4 mg ONCE ONE Administration MDM - Abdominal Pain Lab Data Attestation: I reviewed the patient's lab results. Labs: Lab Results 12/02/24 12/02/24 Range/Units 17:02 17:24 WBC 13.42 H (4.50-11.00) K/uL RBC 4.78 (4.00-5.20) m/uL Hgb 14.2 (12.0-16.0) gm/dL Hct 42.8 (33.0-51.0) % MCV 90 (80-100) fL MCH 30 (26-34) pg MCHC 33 (32-36) gm/dL RDW Coeff of Juan M 12.7 (11.5-15.5) % Plt Count 214 (140-440) K/uL Neut % (Auto) 84.3 H (42.0-72.0) % Lymph % (Auto) 8.8 L (20-44) % [place] % (Auto) 6.3 (0.0-11.0) % Eos % (Auto) 0.3 (0.0-7.0) % Baso % (Auto) 0.2 (0.0-3.0) % Neut # (Auto) 11.30 H (1.7-7.0) K/uL Lymph # (Auto) 1.20 (0.90-2.90) K/uL [place] # (Auto) 0.80 (0.00-0.90) K/UL Eos # (Auto) 0.00 (0.00-0.50) K/uL Baso # (Auto) 0.00 (0.00-0.30) K/uL Abs Immat Gran (auto) 0.00 (0.00-0.30) K/uL Imm/Tot Granulo (auto) 0.1 % Sodium 136 (135-149) mmol/L Potassium 3.9 (3.6-5.1) mmol/L Chloride 106 (96-114) mmol/L Carbon Dioxide 25 (20-32) mmol/L Anion Gap 5 L (7-15) mEq/L BUN 10 (7-30) mg/dL Creatinine 0.7 (0.5-1.5) mg/dL Estimated Creat Clear 77.77 Estimated GFR 104 ml/min Glucose 98 (60-115) mg/dL Lactate 1.4 (0.5-1.9) mmol/L Calcium 8.9 (8.4-10.6) mg/dL Total Bilirubin 0.6 (0.1-1.5) mg/dL AST 52 H (12-35) U/L ALT 40 H (4-35) U/L Alkaline Phosphatase 96 (40-150) U/L C-Reactive Protein 5.9 H (0.5-1.0) mg/dL Total Protein 6.5 (6.0-8.3) g/dL Albumin 4.1 (3.3-5.0) g/dL Lipase 124 (23-300) U/L Procalcitonin 0.09 (<0.50) ng/mL Urine Color Yellow (Yellow) Urine Appearance Clear (Clear) Urine pH 6.5 (5.0-8.5) Ur Specific [place] 1.010 (1.000-1.030) Urine Protein Negative (Negative) Urine Glucose (UA) Negative (Negative) Urine Ketones Negative (Negative) Urine Blood Negative (Negative) Urine Nitrite Negative (Negative) Urine Bilirubin Negative (Negative) Urine Urobilinogen 0.2 (0.2-1.0) Ur Leukocyte Esterase Negative (Negative) Urine RBC 0-2 (0-2) Urine WBC 0-2 (0-5) Ur Squamous Epith Cells None (None-Few) Urine Bacteria None (None) Imaging Data CT scan - abdomen: Attestation: I have reviewed the pertinent imaging results. Radiologist's impression: Patient: WALESKA MCGILL Facility:?[facility] Patient ID:?[id number] Site Patient ID:?[id number]. Site :?[id number] Study:?CT-Abdomen/Pelvis W/67CC [id number]/3/2025 8:23:52 PM Ordering Physician:?Brittnee Muhammad Final Report: Indication: BILAT FLANK PAIN, RECENT G POEM Technique: CT abdomen/pelvis with IV contrast utilizing 67 mL Isovue 370 Comparison: CT abdomen/pelvis on May 12, 2023 Findings: Lower thorax: Trace right dependent atelectasis. Abdomen/pelvis: No suspicious hepatic lesions. Status post cholecystectomy with expected minimal biliary ductal dilatation secondary to reservoir effect. Stable small hypodensity in the spleen, likely a benign cyst. The pancreas, adrenal glands, kidneys, ureters, and bladder are unremarkable. Appropriately positioned intrauterine device. No suspicious adnexal lesions. Surgical clips in the stomach near the gastric antrum/pylorus. No evidence of bowel obstruction or inflammation. The appendix is unremarkable. Few colonic diverticula. No free air, free fluid, or abscess. No abdominopelvic lymphadenopathy. Vasculature is unremarkable. Soft tissue/musculoskeletal: Unremarkable Impression: No CT evidence of an acute process involving the abdomen or pelvis. Please note that all CT scans at this facility use dose modulation, iterative reconstruction, and/or weight-based dosing when appropriate to reduce radiation dose to as low as reasonably achievable. Dictated by Ray Paez MD @ 12/02/2024 8:49:16 PM (Electronic Signature) Discharge Plan Discharge Clinical Impression: Abdominal pain Qualifiers: Abdominal location: lower abdomen, unspecified Qualified Code(s): R10.30 - Lower abdominal pain, unspecified Headache Qualifiers: Headache type: unspecified Headache chronicity pattern: acute headache Intractability: not intractable Qualified Code(s): R51.9 - Headache, unspecified Diarrhea Qualifiers: Diarrhea type: unspecified type Qualified Code(s): R19.7 - Diarrhea, unspecified Patient Disposition: Home, Self-Care Condition: Stable Instructions: Acute Diarrhea (ED), Abdominal Pain (ED) Additional Instructions: Please contact your digital cartographer tomorrow, let them know your in the ER. If you develop fevers, worsening abdominal pain and diarrhea continues, would consider doing stool studies including C difficile. Try to drink plenty of fluids to stay hydrated. The CT did not show any etiology but does not mean you can be having functional issues within the GI system from gastric out lit emptying issues to potential viral infectious diarrhea. There can be many other things that are not surgical and not related to her prior surgery such is gastroenteritis. Watch your symptoms closely, seek re-evaluation if concerns or worsening. Activity Level: Activity as Tolerated Prescriptions: No Action methotrexate sodium (PF) 25 mg/mL solution 50 mg IM QWEEK pantoprazole 40 mg tablet,delayed release (DR/EC) 40 mg PO BID hydroxychloroquine 200 mg tablet 200 - 400 mg PO .UD Rx Instructions: Alternates every other day between 200 and 400mg. folic acid 1 mg tablet 3 mg PO DAILY Mirena 21 mcg/24 hours (8 yrs) 52 mg intrauterine device 1 device intrauterine ONCE Rx Instructions: as a single dose rabeprazole 20 mg tablet,delayed release (DR/EC) 20 mg PO BID Qty: 60 3RF famotidine 40 mg tablet 40 mg PO HS cetirizine-pseudoephedrine [Zyrtec-D] 5-120 mg tablet extended release 12 hr 1 tab PO BID PRN dicyclomine 10 mg capsule 10 mg PO QID PRN (Reason: abdominal pain) Qty: 60 0RF sumatriptan succinate 6 mg/0.5 mL pen injector 6 mg subcut .As Needed as needed PRN (Reason: migraine headache) Qty: 1 4RF Rx Instructions: 3 boxes with 3 refills. sulfasalazine 500 mg tablet 1 g PO DAILY Rx Instructions: give with food (meal/snack) fluticasone propionate [Flonase Allergy Relief] 50 mcg/actuation spray,suspension 1 spray intranasal Q12H Qty: 16 2RF Rx Instructions: administer into each nostril ketorolac 10 mg tablet 10 mg PO Q8H PRN (Reason: pain) Qty: 30 0RF Rx Instructions: maximum total duration of 5 days from all oral, intranasal, or parenteral formulations Emgality Pen 120 mg/mL pen injector 120 mg subcut ONCE Qty: 1 3RF tranexamic acid 650 mg tablet 650 mg PO DAILY Qty: 60 0RF pyridostigmine bromide 60 mg/5 mL syrup 60 mg PO TID phenazopyridine [Pyridium] 200 mg tablet 200 mg PO TID Qty: 9 0RF sulfasalazine 500 mg tablet,delayed release (DR/EC) 1,500 mg PO DAILY methotrexate sodium 25 mg/mL solution Patient Comments: [NO ORIGINAL SIG] colestipol 1 gram tablet 1 g PO BID amlodipine 2.5 mg tablet 2.5 mg PO DAILY Qty: 90 3RF Wegovy 1.7 mg/0.75 mL pen injector 1.7 mg subcut QWEEK Qty: 3 0RF Rx Instructions: administer weeks 13 through 16 of therapy alprazolam 2 mg tablet 4 mg PO QHS Qty: 60 0RF dextroamphetamine-amphetamine 15 mg capsule,extended release 24hr 15 mg PO DAILY Qty: 30 0RF dextroamphetamine-amphetamine 30 mg capsule,extended release 24hr 30 mg PO DAILY Qty: 30 0RF phentermine 37.5 mg tablet 37.5 mg PO QDAY Qty: 30 0RF Rx Instructions: must administer 30 minutes before or 1-2 hours after breakfast xapbeshvmp-vvpujineypqem-matc 50-325-40 mg tablet 1 tab PO Q4-6H PRN (Reason: pain) Qty: 60 0RF Follow Up/Referrals: Taran Rivas MD [Primary Care Provider, Internal Medicine] Stand Alone Forms: [employer] Info Instructions
[2024-12-02 17:30] LABS: Lactate* 1.4 mmol/L (0.5-1.9)
[2024-12-02 17:35] LABS: Hematocrit 42.8 % (33.0-51.0); Hemoglobin* 14.2 gm/dL (12.0-16.0); Immature Granulocytes Pct Auto 0.1 %; Mean Corpuscular HGB Conc 33 gm/dL (32-36); Mean Corpuscular Hemoglobin 30 pg (26-34); Mean Corpuscular Volume 90 fL (80-100); RDW Coefficient of Variation % 12.7 % (11.5-15.5); Red Blood Count 4.78 m/uL (4.00-5.20); White Blood Count* 13.42 K/uL (4.50-11.00)
[2024-12-02 17:36] LABS: Immature Granulocytes Abs Auto 0.00 K/uL (0.00-0.30); Lymphocytes Absolute Auto 1.20 K/uL (0.90-2.90)
[2024-12-02 17:37] LABS: Slide Review Reflex No
[2024-12-02] MEDS: ONDANSETRON 2 MG/ML inj 4 MG IVP (17:38)
[2024-12-02 17:39] VITALS: O2SAT 96
[2024-12-02 17:41] VITALS: PULSE 79; RESP 16; O2SAT 96
[2024-12-02 17:46] LABS: Albumin* 4.1 g/dL (3.3-5.0); Chloride* 106 mmol/L (96-114); Sodium* 136 mmol/L (135-149)
[2024-12-02 17:47] LABS: Potassium* 3.9 mmol/L (3.6-5.1)
[2024-12-02 17:49] LABS: Alanine Aminotransferase* 40 U/L (4-35); Aspartate Amino Transferase* 52 U/L (12-35); Blood Urea Nitrogen* 10 mg/dL (7-30); Creatinine* 0.7 mg/dL (0.5-1.5); Est. Creatinine Clearance* 77.77; Estimated Glomerular Filt Rate 104 ml/min
[2024-12-02 17:50] LABS: Alkaline Phosphatase* 96 U/L (40-150); Anion Gap 5 mEq/L (7-15); Bilirubin Total* 0.6 mg/dL (0.1-1.5); Calcium* 8.9 mg/dL (8.4-10.6); Carbon Dioxide* 25 mmol/L (20-32); Glucose* 98 mg/dL (60-115); Total Protein* 6.5 g/dL (6.0-8.3)
[2024-12-02 18:07] LABS: Procalcitonin* 0.09 ng/mL (<0.50)
--- NOTE | 2024-12-02 18:12 | CRLHL7_ITS ---
For Patients: As a result of the Cures Act, medical imaging exams and procedure reports are released immediately into your electronic medical record. You may view this report before your referring provider. If you have questions, please contact your health care provider. Indication: BILAT FLANK PAIN, RECENT G POEM Technique: CT abdomen/pelvis with IV contrast utilizing 67 mL Isovue 370 Comparison: CT abdomen/pelvis on May 12, 2023 Findings: Lower thorax: Trace right dependent atelectasis. Abdomen/pelvis: No suspicious hepatic lesions. Status post cholecystectomy with expected minimal biliary ductal dilatation secondary to reservoir effect. Stable small hypodensity in the spleen, likely a benign cyst. The pancreas, adrenal glands, kidneys, ureters, and bladder are unremarkable. Appropriately positioned intrauterine device. No suspicious adnexal lesions. Surgical clips in the stomach near the gastric antrum/pylorus. No evidence of bowel obstruction or inflammation. The appendix is unremarkable. Few colonic diverticula. No free air, free fluid, or abscess. No abdominopelvic lymphadenopathy. Vasculature is unremarkable. Soft tissue/musculoskeletal: Unremarkable Impression: No CT evidence of an acute process involving the abdomen or pelvis. Please note that all CT scans at this facility use dose modulation, iterative reconstruction, and/or weight-based dosing when appropriate to reduce radiation dose to as low as reasonably achievable. Dictated by Ray Paez MD @ 12/02/2024 8:49:16 PM (Electronically Signed)
[2024-12-02 18:32] VITALS: TEMP 36.5
[2024-12-02 18:35] LABS: Appearance Urine Clear (Clear)
[2024-12-02] MEDS: HYDROCORTISONE SOD SUCCINATE 50 MG/ML inj 200 MG IVP (19:06)
[2024-12-02 19:16] VITALS: BP 114/83; PULSE 87; RESP 16; O2SAT 97
[2024-12-02] MEDS: 0.9 % SODIUM CHLORIDE 500 ML 500 ML IV (20:31)
[2024-12-02 20:32] VITALS: PULSE 73; RESP 16; O2SAT 96
== END 2024-12-02 21:11 | disposition home or self-care (01) ==
PROVIDERS: Emergency Provider Family Medicine; PCP Internal Medicine
DX: R10.9 Unspecified abdominal pain (principal); R51.9 Headache, unspecified; R19.7 Diarrhea, unspecified
CPT/HCPCS: 36415; 74177; 80053; 81001; 83605; 83690; 84145; 85025; 86140; 94761; 96361; 96374; 96375; 99284; 99285; J1200; J1720; J1885; J2405; J7030; Q9967

== ENCOUNTER 2024-12-13 09:12 | Outpatient (CLI) | payer BC, SELFPAY | END 2024-12-13 09:13 | disposition home or self-care (01) | LOC: NFLDREF 12-18 10:49 | PROVIDERS: PCP Internal Medicine; Referring Provider Internal Medicine; Visit Provider Internal Medicine | DX: M32.9 Systemic lupus erythematosus, unspecified (principal); N39.0 Urinary tract infection, site not specified; R52 Pain, unspecified; R53.81 Other malaise | CPT/HCPCS: 87086 ==

== ENCOUNTER 2024-12-26 16:33 | Outpatient (CLI) | payer BC, SELFPAY | END 2024-12-26 16:34 | disposition home or self-care (01) | LOC: NFLDREF 12-28 18:20 | PROVIDERS: PCP Internal Medicine; Referring Provider Internal Medicine; Visit Provider Internal Medicine | DX: N39.0 Urinary tract infection, site not specified (principal); B96.20 Unspecified Escherichia coli [E. coli] as the cause of diseases classified elsewhere | CPT/HCPCS: 87086 ==

== ENCOUNTER 2025-01-12 12:54 | Emergency (ER) | payer BC, SELFPAY ==
--- OUTSIDE RECORDS SUMMARY | 2025-01-12 12:57 | XMS_ITS | Clinical Summary ---
[facility] Address [address] [place] [address] Care Team Providers Care Bell Valet Name Role Phone Unavailable Primary Care Provider [...] for each transition of care or referral. [facility] Active Allergy Reactions Criticality Noted Date [...] 12/24/2020, Additional history exists Influenza Vaccine (#1) 2025 2, 03/25/2021, 01/28/2020, Additional history exists DTaP/Tdap/Td [...] patient's age to complete this topic Insurance [facility] OUT OF STATE
--- OUTSIDE RECORDS SUMMARY | 2025-01-12 12:57 | XMS_ITS | Clinical Summary ---
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 Gender Identity Not on file [...] SCREENING 12/26/2014 12/26/2012, 09/28/2011 PAP 08/15/2023 08/14/2020 PHQ-2 (once per calendar year) 2024 COVID-19 VACCINE ( season) 2024 11/13/2021, 08/06/2021, 12/24/2020, Additional history exists INFLUENZA VACCINE (#1) 2024 , 03/02/2023, 01/31/2022, Additional history exists DTAP/TDAP/TD VACCINE (3 - Td or Tdap) 02/23/2034 02/24/2024, 07/11/2014 HEPATITIS B VACCINE Completed 02/21/2019, 9 ZOSTER VACCINE Completed 06/17/2023, 12/29/2022 HPV VACCINE (No Doses Required) Completed MENINGITIS VACCINE Aged Out No longer eligible based on patient's age to complete this topic Insurance BCBS OUT OF STATE BCBS OUT OF STATE Care Teams Area Intelligence Technician Relationship Specialty Start Date End Date Taran Rivas MD [facility] [address] [place] [address] PCP - General Emergency Medicine 08/23/24 Temo Wharton MD [address] [address] [facility] 08/23/24
--- OUTSIDE RECORDS SUMMARY | 2025-01-12 12:57 | XMS_ITS | Clinical Summary ---
Author Organization [facility] Address [address] [place] [id number] Care Team Providers Care Block Cableman Name Role Phone Katerina Contreras Unavailable Rohan [...] nasal solution (FLONASE)Indica tions:Sinus pressure Inhale 1 [place] into both nostrils once daily. 1 Bottle [...] dise ase (HC). Has seen Rheumatology at [place]. 08/23/2016 Overview (07/06/2017): Diagnosis of MCTD made in at [facility] when living in [place]. Lesion of pituitary [...] 08/15/2023 , 08/14/2020, 01/14/2015 (Completed outside of [facility]) Tetanus booster 07/11/2024 07/11/2014, 07/11/2014 Colonoscopy through age 75 11/11/2024 11/11/2014 COVID-19 vaccine series ( season) 2024 11/13/2021, 08/06/2021, 05/15/2020, Additional history exists Influenza Vaccine (#1) 2024 7, 02/09/2016, 02/09/2016, Additional history exists RSV vaccine for adults or (1 - 1-dose 75+ series) 12/30/2046 Procedures Procedure Name Priority Date/Time Associated Diagnosis Comments CHEF & OWNER THIN PREP PAP SCREEN IMAGED Routine 08/14/2020 12:00 PM CDT SCAN-MAMMOGRAPHY REPORT 08/11/2017 12:00 AM CDT from Last 3 Months or Most Recently Relevant to Health Maintenance Results * CHEF & OWNER THIN PREP PAP SCREEN IMAGED (08/14/2020 12:00 PM CDT) Case Report Gynecologic Cytology Report Case: [id number] Authorizing Provider: Kelly Alba Collected: 08/14/2020 1200 MMD Ordering Location: [facility] Received: 08/15/2020 0925 First Screen: Larry Verma Specimen: CHEF & OWNER ThinPrep Vial Screening, Cervical/Vaginal 08/22/2020 2:38 PM CDT [facility] INTERPRETATION/ RESULT NEGATIVE FOR INTRAEPITHELIAL LESION OR MALIGNANCY (NIL) (none) 08/22/2020 2:38 PM CDT [facility] at 1438 CDT SPECIMEN ADEQUACY Satisfactory for evaluation Endocervical component present 08/22/2020 2:38 PM CDT [facility] HPV REQUEST HPV and PAP 08/22/2020 2:38 PM CDT [facility] Date of LMP 08/07/2020 08/22/2020 2:38 PM CDT [facility] Last Pap Date 02/02/2013 08/22/2020 2:38 PM CDT [facility] Last Pap Result NIL 2:38 PM CDT [facility] Additional Information 08/22/2020 2:38 PM CDT [facility] Comment: Interpreted at [facility] - [address], [place] [address] Automated Review Successful 08/22/2020 2:38 PM CDT [facility] Comment:Specimen processed s uccessfully by automated account resolution analyst device, [employer] Imaging System, [employer] ANCILLARY TESTING CHEF & OWNER HPV Ordered, Please see separate report 08/22/2020 [...] us Kelly Alba MD PATHOLOGY/CYTOLOGY Final Result [facility] [address] [place] [address], [place] * SCAN-MAMMOGRAPHY REPORT (08/11/2017 12:00 AM CDT) Anatomical Region Laterality Modality Other us Scanner OTHER Final Result from Last 3 Months or Most Recently Relevant to Health Maintenance Insurance [place] Care Teams Block Cableman Relationship Specialty Start Date End Date Pcp, No . PCP - General 02/28/19 Katerina Contreras Hand Finisher 07/21/16
[2025-01-12 13:11] VITALS: BP 128/86; PULSE 97; RESP 16; TEMP 37; O2SAT 97; BMI 24.1
[2025-01-12 16:09] LABS: Hematocrit* 46.0 % (33.0-51.0); Hemoglobin* 15.1 gm/dL (12.0-16.0); Immature Granulocytes Abs Auto 0.05 K/uL (0.00-0.30); Immature Granulocytes Pct Auto 0.8 %; Lymphocytes Absolute Auto 1.62 K/uL (0.90-2.90); Mean Corpuscular HGB Conc 33 gm/dL (32-36); Mean Corpuscular Hemoglobin 29 pg (26-34); Mean Corpuscular Volume 88 fL (80-100); RDW Coefficient of Variation % 12.3 % (11.5-15.5); Red Blood Count* 5.22 m/uL (4.00-5.20); White Blood Count* 6.49 K/uL (4.50-11.00)
[2025-01-12 16:10] LABS: Slide Review Reflex No
[2025-01-12 16:23] LABS: Albumin* 4.5 g/dL (3.3-5.0); Chloride* 100 mmol/L (96-114)
--- NOTE | 2025-01-12 16:23 | ED.GENADULT ---
HPI - General Adult General Chief complaint: Neuro Symptoms/Altered Deficit Stated complaint: L side tingling, sent by Dr Simmons Time Seen by Provider: 01/12/25 15:00 Source: patient Mode of arrival: ambulatory Limitations: no limitations History of Present Illness HPI narrative: 54-year-old female coming in today with several concerns. One she has pressure in her left ear and feels like the ears draining internally. No changes in her hearing. No significant pain. No drainage coming out of the ear. No trauma to the ear. Her 2nd concern today is she feels numbness and tingling across her entire left face. She feels a fullness in her face. The face is itchy. She denies any motor deficits. No changes in her speech. Patient does have headaches and migraines, had a migraine yesterday. She states that she has never had symptoms like this associated with a migraine before. The numbness and tingling of the face has been present for approximately 2 days. Waxes and wanes throughout the day but never goes away completely. She denies any focal neurologic deficits otherwise. No difficulty breathing, chewing, speaking or swallowing. No changes in her vision. No Difficulty closing her eyes. No recent illness. She also states that she has patchy area on her left hip and buttocks that also feels very itchy like the itchiness she feels across her face. Patient does have a history of lupus and rheumatoid arthritis. Related Data Home Medications ?Medication ?Instructions ?Recorded ?Confirmed methotrexate sodium (PF) 25 mg/mL 50 mg IM QWEEK 11/25/21 01/12/25 injection solution pantoprazole 40 mg tablet,delayed 40 mg PO BID 11/25/21 01/12/25 release hydroxychloroquine 200 mg tablet 200 - 400 mg PO .UD 07/26/22 01/12/25 levonorgestrel (Mirena) 1 device intrauterine ONCE 07/26/22 01/12/25 famotidine 40 mg tablet 40 mg PO HS 11/07/23 01/12/25 cetirizine 5 mg-pseudoephedrine ER 1 tab PO BID PRN 03/23/24 01/12/25 120 mg tablet,extended release,12hr (Zyrtec-D) folic acid 1 mg tablet 3 mg PO DAILY 03/23/24 01/12/25 pyridostigmine bromide 60 mg/5 mL 60 mg PO TID 10/02/24 01/12/25 oral syrup colestipol 1 gram tablet 1 g PO BID 12/02/24 01/12/25 methotrexate sodium 25 mg/mL mg 12/02/24 01/12/25 injection solution sulfasalazine 500 mg 1,500 mg PO DAILY 12/02/24 01/12/25 tablet,delayed release Previous Rx's ?Medication ?Instructions ?Recorded rabeprazole 20 mg tablet,delayed 20 mg PO BID #60 tabs 10/18/23 release amlodipine 2.5 mg tablet 2.5 mg PO DAILY #90 tabs 05/01/24 fluticasone propionate 50 1 spray intranasal Q12H #16 grams 05/03/24 mcg/actuation nasal spray,suspension (Flonase Allergy Relief) dicyclomine 10 mg capsule 10 mg PO QID PRN abdominal pain 05/24/24 #60 caps ketorolac 10 mg tablet 10 mg PO Q8H PRN pain #30 tabs 06/26/24 sumatriptan succinate 6 mg/0.5 mL 6 mg (0.5 mL) subcut .As Needed as 08/08/24 subcutaneous pen injector needed PRN migraine headache #1 mL phenazopyridine 200 mg tablet 200 mg PO TID #9 tabs 10/17/24 (Pyridium) rvcfmuungo-hkqpdiendails-ffaejsxo 1 tab PO Q4-6H PRN pain #60 tabs 11/27/24 50 mg-325 mg-40 mg tablet alprazolam 2 mg tablet 4 mg (2 x 2 mg) PO QHS anxiety #60 12/26/24 tabs dextroamphetamine-amphetamine ER 15 mg PO DAILY #30 caps 12/26/24 15 mg 24hr capsule,extend release dextroamphetamine-amphetamine ER 30 mg PO DAILY #30 caps 12/26/24 30 mg 24hr capsule,extend release galcanezumab-gnlm 120 mg/mL 120 mg subcut ONCE #1 mL 12/26/24 subcutaneous pen injector (Emgality Pen) phentermine 37.5 mg tablet 37.5 mg PO QDAY #30 tabs 12/26/24 semaglutide (weight loss) 1.7 1.7 mg (0.75 mL) subcut QWEEK #3 mL 08/27/25 mg/0.75 mL subcutaneous pen injector (Wetedvy) tranexamic acid 650 mg tablet 650 mg PO DAILY Vitiligo #60 tabs 12/26/24 gabapentin 100 mg capsule 100 mg PO BID #30 caps 01/12/25 Allergies Allergy/AdvReac Type Severity Reaction Status Date / Time iodine Allergy Intermediate Fainting, Verified 01/12/25 13:14 sob hydrocodone Allergy Mild Itching Verified 01/12/25 13:14 adhesive Allergy Unknown Rash Verified 01/12/25 13:14 pecan nut Allergy Verified 01/12/25 13:14 antibiotics Allergy Uncoded 01/12/25 11:40 Review of Systems Status of ROS: Reports: 10 or more systems reviewed and unremarkable except as noted in History and below PFSH PFS Medical History C. difficile colitis ?A04.72 - Enterocolitis due to Clostridium difficile, not specified as recurrent (ICD-10) Pelvic floor dysfunction ?M62.89 - Other specified disorders of muscle (ICD-10) Hypertension ?I10 - Essential (primary) hypertension (ICD-10) Complication of gastric band procedure (09/27/18) ?K95.09 - Other complications of gastric band procedure (ICD-10) Autoimmune disease ?M35.9 - Systemic involvement of connective tissue, unspecified (ICD-10) Surgical History Status post gastric banding ?Z98.84 - Bariatric surgery status (ICD-10) History of umbilical hernia repair ?Z98.890 - Other specified postprocedural states (ICD-10) ?Z87.19 - Personal history of other diseases of the digestive system (ICD-10) History of tonsillectomy ?Z90.89 - Acquired absence of other organs (ICD-10) History of surgery on left wrist ?Z98.890 - Other specified postprocedural states (ICD-10) History of right knee surgery ?Z98.890 - Other specified postprocedural states (ICD-10) History of removal of laparoscopic gastric banding device (09/27/18) ?Z98.84 - Bariatric surgery status (ICD-10) History of reduction mammoplasty ?Z98.890 - Other specified postprocedural states (ICD-10) History of laparoscopic adjustable gastric banding (2007) ?Z98.84 - Bariatric surgery status (ICD-10) History of cholecystectomy ?Z90.49 - Acquired absence of other specified parts of digestive tract (ICD-10) History of abdominoplasty (2018) ?Z98.890 - Other specified postprocedural states (ICD-10) Social History Narrative: 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 Lives in [place] with her . She does not smoke. She does not drink alcohol. She does not have recreational drug use. What is your current living situation?: I presently have a place to live Problems where you live: no known problems Problems where you live details: N/A In the past 12 months, utilities in danger of being shut off: no In past 12 months, lack of transportation kept you from medical appts, meetings, work, or getting things needed for daily living: no In the past 12 mos, have been you worried that your food would run out before you had money to buy more?: never true In the past 12 mos, the food you bought just didn't last and you didn't have money to buy more?: never true Smoking Status: Never smoker Do you use any of these nicotine containing products: None Second hand tobacco smoke exposure: No How often do you have a drink containing alcohol: monthly or less How often do you have six or more drinks on one occasion: Never AUDIT-C Alcohol total score: 1 Non-prescribed substance use: denies use Caffeine: No How often does anyone, including family, friends and others, physically hurt you: never How often does anyone, including family, friends and others, insult or talk down to you: never How often does anyone, including family, friends and others, threaten you with harm: never How often does anyone, including family, friends and others, scream or curse at you: never service: No Exam Narrative: Exam Narrative: Well-nourished well-developed patient in no acute distress. Alert and oriented. Answers questions appropriately. Mood and affect are appropriate. Thoughts are goal oriented and rational. No tangential or magical thinking noted. Patient speaks in full sentences without needing to catch her breath. Voice sounds normal. HEENT: Normocephalic atraumatic. Pupils are equally round reactive to light. Extraocular muscles are intact. Conjunctivae are moist without any icterus noted. Moist mucous membranes. Posterior pharynx is normal. Neck is soft without any lymphadenopathy. TMs are normal bilaterally. I do not see any fluid behind the tympanic membrane today. Normal external ear canals. Inside of the mouth looks normal. Normal dentition. No evidence of gingival or dental infections. Cardiovascular: Heart is regular rate and rhythm S1 and S2 are present without any murmurs. Lungs: Clear to auscultation bilaterally no wheezes rhonchi or rales are appreciated. Patient takes deep breaths without any discomfort. Extremities: Bilateral lower extremities are without edema. Skin: Well perfused without any obvious rashes. Strength is 5/5 of the upper and lower extremities. Face is symmetric. Cranial nerves 3-12 are normal. Niylqt-in-eswh is normal. There is no nystagmus either horizontally or vertically. Gait is normal. Const: Vital Signs, click to edit/add: Vital Signs - 24 hr 01/12/25 13:11 Temperature 98.6 F Pulse Rate [Pulse Oximeter] 97 Respiratory Rate 16 Blood Pressure [Ri ght Upper Arm] 128/86 Pulse Oximetry 97 Oxygen Delivery Me thod Room Air Course Course ED Course: Consulted with Neurology, Dr. Donnelly at [facility], who was able to evaluate the patient. At this time we recommend a lumbar puncture to rule out any infectious cause of her symptoms. If this is normal he recommends treatment with gabapentin and outpatient MRI on Tuesday. Did proceed with blood work which included a CBC that was unremarkable. Chemistries were unremarkable. Normal LFTs. Normal CRP. Normal procalcitonin. Lumbar puncture was performed by Anesthesia. Lumbar puncture results were entirely normal. Vital Signs Vital signs: Initial Vital Signs Temperature 98.6 F 01/12/25 13:11 Temperature Source Temporal Artery Scan 01/12/25 13:11 Pulse Rate 97 01/12/25 13:11 Pulse Rhythm Regular 01/12/25 13:11 Respiratory Rate 16 01/12/25 13:11 Blood Pressure 128/86 01/12/25 13:11 Blood Pressure Mean 100 01/12/25 13:11 Blood Pressure Position Sitting 01/12/25 13:11 Pulse Oximetry 97 01/12/25 13:11 Oxygen Delivery Method Room Air 01/12/25 13:11 Vital Signs Temperature 98.6 F 01/12/25 13:11 Pulse Rate 97 01/12/25 13:11 Respiratory Rate 16 01/12/25 13:11 Blood Pressure 128/86 01/12/25 13:11 Pulse Oximetry 97 01/12/25 13:11 Oxygen Delivery Method Room Air 01/12/25 13:11 Temperature 98.6 F 01/12/25 13:11 Pulse Rate 97 01/12/25 13:11 Respiratory Rate 16 01/12/25 13:11 Blood Pressure 128/86 01/12/25 13:11 Pulse Oximetry 97 01/12/25 13:11 Oxygen Delivery Method Room Air 01/12/25 13:11 Medications Administered Medications: Discontinued Medications Generic Name Dose Route Start Last Admin Trade Name Flory PRN Reason Stop Dose Admin Fentanyl 50 mcg 01/12/25 15:52 01/12/25 16:20 Fentanyl 100 Mcg/2 Ml Inj IVP 01/12/25 15:53 50 mcg ONCE ONE Administration Ketorolac Tromethamine 30 mg 01/12/25 17:13 01/12/25 17:23 Ketorolac 30 Mg/Ml Inj IVP 01/12/25 17:14 30 mg ONCE ONE Administration Medical Decision Making MDM Narrative Medical decision making narrative: 54-year-old female with left-sided facial numbness and pain and patchy left-sided body numbness. Will start the patient on gabapentin. MRI ordered for Tuesday. If the patient has not received a call to have her MRI done then I do recommend she return to the emergency department on Tuesday morning to have that done through the ED. Medical Records Medical records reviewed: Yes I reviewed the patient's medical records Lab Data Lab results reviewed: Yes I reviewed the patient's lab results Labs: Lab Results 01/12/25 01/12/25 Range/Units 15:52 16:55 WBC 6.49 (4.50-11.00) K/uL RBC 5.22 H (4.00-5.20) m/uL Hgb 15.1 (12.0-16.0) gm/dL Hct 46.0 (33.0-51.0) % MCV 88 (80-100) fL MCH 29 (26-34) pg MCHC 33 (32-36) gm/dL RDW Coeff of Juan M 12.3 (11.5-15.5) % Plt Count 260 (140-440) K/uL Neut % (Auto) 66.3 (42.0-72.0) % Lymph % (Auto) 25.0 (20-44) % [place] % (Auto) 6.8 (0.0-11.0) % Eos % (Auto) 0.5 (0.0-7.0) % Baso % (Auto) 0.6 (0.0-3.0) % Neut # (Auto) 4.31 (1.7-7.0) K/uL Lymph # (Auto) 1.62 (0.90-2.90) K/uL [place] # (Auto) 0.40 (0.00-0.90) K/UL Eos # (Auto) 0.03 (0.00-0.50) K/uL Baso # (Auto) 0.04 (0.00-0.30) K/uL Abs Immat Gran (auto) 0.05 (0.00-0.30) K/uL Imm/Tot Granulo (auto) 0.8 % ESR 5 (2-20) mm/hr Sodium 137 (135-149) mmol/L Potassium 3.5 L (3.6-5.1) mmol/L Chloride 100 (96-114) mmol/L Carbon Dioxide 30 (20-32) mmol/L Anion Gap 7 (7-15) mEq/L BUN 19 (7-30) mg/dL Creatinine 0.8 (0.5-1.5) mg/dL Estimated Creat Clear 67.27 Estimated GFR 88 ml/min Glucose 98 (60-115) mg/dL Calcium 9.1 (8.4-10.6) mg/dL Total Bilirubin 0.2 (0.1-1.5) mg/dL Direct Bilirubin 0.2 (0.0-0.5) mg/dL AST 25 (12-35) U/L ALT 17 (4-35) U/L Alkaline Phosphatase 110 (40-150) U/L C-Reactive Protein < 0.5 L (0.5-1.0) mg/dL Total Protein 7.2 (6.0-8.3) g/dL Albumin 4.5 (3.3-5.0) g/dL Procalcitonin < 0.03 L (<0.50) ng/mL CSF Volume 4.0 (0-6) mL CSF Appearance Clear (Clear) CSF Color Colorless (Colorless) CSF WBC 0 Cells/uL CSF RBC 0 Cells/uL CSF Mononuclear Cells 0 % CSF Polynuclear WBCs 0 % CSF Glucose 52 (40-70) mg/dL CSF Total Protein 38 (15-45) mg/dL Discharge Plan Discharge Clinical Impression: Left facial numbness, Migraine Patient Disposition: Home, Self-Care Condition: Stable Additional Instructions: You will be started on gabapentin today which is a nerve pain medication as see if this helps with your symptoms. Start by taking 1 tablet before bed, after 2 days can increase this to 1 tablet in the morning and 1 tablet at night. Follow-up with your primary care provider to continue dosing this medication and for refills. It is recommended that you have an MRI done on Tuesday. This has been ordered for you. Someone should call you likely Tuesday to have this scheduled. If you do not hear from anyone by 10:00 a.m., you should give hospital on-call to see if they can get it scheduled and in the event that it cannot be scheduled as an outpatient procedure then you should return to the emergency department by noon to have this MRI done through the ER. Return sooner if your symptoms worsen before Tuesday. Prescriptions: New gabapentin 100 mg capsule 100 mg PO BID Qty: 30 0RF No Action methotrexate sodium (PF) 25 mg/mL solution 50 mg IM QWEEK pantoprazole 40 mg tablet,delayed release (DR/EC) 40 mg PO BID hydroxychloroquine 200 mg tablet 200 - 400 mg PO .UD Rx Instructions: Alternates every other day between 200 and 400mg. folic acid 1 mg tablet 3 mg PO DAILY Mirena 21 mcg/24 hours (8 yrs) 52 mg intrauterine device 1 device intrauterine ONCE Rx Instructions: as a single dose rabeprazole 20 mg tablet,delayed release (DR/EC) 20 mg PO BID Qty: 60 3RF famotidine 40 mg tablet 40 mg PO HS cetirizine-pseudoephedrine [Zyrtec-D] 5-120 mg tablet extended release 12 hr 1 tab PO BID PRN dicyclomine 10 mg capsule 10 mg PO QID PRN (Reason: abdominal pain) Qty: 60 0RF sumatriptan succinate 6 mg/0.5 mL pen injector 6 mg subcut .As Needed as needed PRN (Reason: migraine headache) Qty: 1 4RF Rx Instructions: 3 boxes with 3 refills. alprazolam 2 mg tablet 4 mg PO QHS Qty: 60 0RF dextroamphetamine-amphetamine 15 mg capsule,extended release 24hr 15 mg PO DAILY Qty: 30 0RF dextroamphetamine-amphetamine 30 mg capsule,extended release 24hr 30 mg PO DAILY Qty: 30 0RF Emgality Pen 120 mg/mL pen injector 120 mg subcut ONCE Qty: 1 3RF Wegovy 1.7 mg/0.75 mL pen injector 1.7 mg subcut QWEEK Qty: 3 0RF Rx Instructions: administer weeks 13 through 16 of therapy phentermine 37.5 mg tablet 37.5 mg PO QDAY Qty: 30 0RF Rx Instructions: must administer 30 minutes before or 1-2 hours after breakfast tranexamic acid 650 mg tablet 650 mg PO DAILY Qty: 60 0RF fluticasone propionate [Flonase Allergy Relief] 50 mcg/actuation spray,suspension 1 spray intranasal Q12H Qty: 16 2RF Rx Instructions: administer into each nostril ketorolac 10 mg tablet 10 mg PO Q8H PRN (Reason: pain) Qty: 30 0RF Rx Instructions: maximum total duration of 5 days from all oral, intranasal, or parenteral formulations pyridostigmine bromide 60 mg/5 mL syrup 60 mg PO TID phenazopyridine [Pyridium] 200 mg tablet 200 mg PO TID Qty: 9 0RF sulfasalazine 500 mg tablet,delayed release (DR/EC) 1,500 mg PO DAILY methotrexate sodium 25 mg/mL solution Patient Comments: [NO ORIGINAL SIG] colestipol 1 gram tablet 1 g PO BID amlodipine 2.5 mg tablet 2.5 mg PO DAILY Qty: 90 3RF doafidgkkq-acryadwbohejp-kjyz 50-325-40 mg tablet 1 tab PO Q4-6H PRN (Reason: pain) Qty: 60 0RF Follow Up/Referrals: Taran Rivas MD [Primary Care Provider, Internal Medicine] Stand Alone Forms: [facility] Info Instructions
[2025-01-12 16:24] LABS: Potassium* 3.5 mmol/L (3.6-5.1); Sodium* 137 mmol/L (135-149)
[2025-01-12 16:26] LABS: Blood Urea Nitrogen* 19 mg/dL (7-30); Creatinine* 0.8 mg/dL (0.5-1.5); Est. Creatinine Clearance* 67.27; Estimated Glomerular Filt Rate 88 ml/min
[2025-01-12 16:27] LABS: Alanine Aminotransferase* 17 U/L (4-35); Alkaline Phosphatase* 110 U/L (40-150); Anion Gap 7 mEq/L (7-15); Aspartate Amino Transferase* 25 U/L (12-35); Bilirubin Direct* 0.2 mg/dL (0.0-0.5); Bilirubin Total* 0.2 mg/dL (0.1-1.5); Calcium* 9.1 mg/dL (8.4-10.6); Carbon Dioxide* 30 mmol/L (20-32); Glucose* 98 mg/dL (60-115); Total Protein* 7.2 g/dL (6.0-8.3)
[2025-01-12] MEDS: 0.9 % SODIUM CHLORIDE 500 ML 500 ML IV (16:30)
[2025-01-12 16:49] LABS: Procalcitonin* < 0.03 ng/mL (<0.50)
--- NOTE | 2025-01-12 16:53 | PM.PRCPDLP ---
Lumbar Puncture Procedure Performed by:: NACHO Time Seen by Provider: 16:30 Date Seen: 01/12/25 Date of procedure: 01/12/25 Position: sitting Prep: chlorhexidine Needle size: other (24) Needle length: 3.5 Interspace: L3-4 Number of attempts: 1 Opening pressure: not done Fluids mLs collected: 4 Fluid description: clear Complications: No Patient tolerance: well Procedure performed by: Crescencio Le Condition: stable Disposition: other (Pt in ER )
[2025-01-12 17:23] LABS: Glucose, CSF* 52 mg/dL (40-70)
[2025-01-12 17:28] LABS: Erythrocyte SedimentationRate* 5 mm/hr (2-20)
[2025-01-12 17:46] LABS: CSF Polynuclear Cells 0 %; RBC, CSF 0 Cells/uL; Total Volume 4.0 mL (0-6); WBC, CSF 0 Cells/uL
--- NOTE | 2025-01-12 18:12 | CRLHL7_ITS ---
For Patients: As a result of the Century Cures Act, medical imaging exams and procedure reports are released immediately into your electronic medical record. You may view this report before your referring provider. If you have questions, please contact your health care provider. Indication: Neurological deficits. Technique: Noncontrast sagittal T1, axial FLAIR, T2 turbo spine echo, and diffusion weighted images. Supplemental post contrast T1 weighted axial and coronal sequences are provided after administration of 12 cc Dotarem gadolinium-based IV contrast. Comparison: MRI 08/02/2022 Findings: The ventricles, sulci and gyri are normal size, shape and contour for age. The midline structures are centrally located with no evidence of shift. There are no suspicious intra or extra-axial fluid collections. No evidence of restricted diffusion to suggest acute ischemia. Expected flow voids in the cavernous carotids and basilar artery. No abnormal contrast enhancement involving the brain parenchyma, meninges, calvarium or skull base. Worsening complete opacification of the right maxillary sinus due to mucosal thickening and secretions. Impression: 1. No acute intracranial abnormalities. 2. Unremarkable MRI of the brain parenchyma. 3. No pathologic enhancement. 4. Worsening complete opacification of the right maxillary sinus due to mucosal thickening and secretions Dictated by Newton Rivera MD @ 01/12/2025 8:16:28 PM (Electronically Signed)
[2025-01-12] MEDS: GABAPENTIN 100 MG CAPSULE PO (20:43)
== END 2025-01-12 20:48 | disposition home or self-care (01) ==
PROVIDERS: Emergency Provider Family Medicine; PCP Internal Medicine
DX: G43.909 Migraine, unspecified, not intractable, without status migrainosus (principal); R29.810 Facial weakness
CPT/HCPCS: 36415; 62270; 70553; 80048; 80076; 82945; 84145; 84157; 85025; 85651; 86140; 89051; 96374; 96375; 99285; A9270; A9575; J1885; J3010; J7030

== ENCOUNTER 2025-02-26 08:14 | Outpatient (CLI) | payer BC, SELFPAY | END 2025-02-26 08:15 | disposition home or self-care (01) | LOC: NFLDREF 02-27 19:28 | PROVIDERS: PCP Internal Medicine; Referring Provider Internal Medicine; Visit Provider Internal Medicine | DX: N39.0 Urinary tract infection, site not specified (principal) | CPT/HCPCS: 87086 ==

== ENCOUNTER 2025-03-20 12:54 | Outpatient (CLI) | payer BC, SELFPAY | END 2025-03-20 12:55 | disposition home or self-care (01) | LOC: NFLDREF 03-23 19:39 | PROVIDERS: PCP Internal Medicine; Referring Provider Internal Medicine; Visit Provider Internal Medicine | DX: N39.0 Urinary tract infection, site not specified (principal) | CPT/HCPCS: 87086 ==